=== PATIENT | female | born 1970 | race African-American/Black ===

== ENCOUNTER 2019-08-12 16:27 | Observation (INO) | payer BC, SELFPAY ==
[2019-08-12] VITALS (11 sets, daily range): BP systolic 017–141; BP diastolic 41–98; PULSE 60–123; RESP 15–18; TEMP 36.5–36.9; O2SAT 94–100; BMI 46.3
--- NOTE | ~2019-08-12 | XR_ITS ---
EXAMINATION: XR chest 1V portable EXAM DATE: 08/12/2019 17:19 INDICATION: Shortness of breath. TECHNIQUE: Portable AP frontal chest x-ray was obtained. There is no prior study for comparison. FINDINGS: The lungs are clear. There are no pleural effusions. The cardiomediastinal silhouette is within normal limits. There is no pneumothorax suspected. The bones and soft tissues are unremarkab le. IMPRESSION: No acute cardiopulmonary findings. Reviewed, dictated and finalized at location A.
--- NOTE | 2019-08-12 16:35 | ECG_ITS ---
Measurements Intervals [place] Rate: 97 P: 13 OK: 156 QRS: -12 QRSD: 89 T: -2 QT: 349 QTc: 444 Interpretive Statements SINUS RHYTHM LOW QRS VOLTAGE IN PRECORDIAL LEADS VOLTAGE CRITERIA FOR LVH BORDERLINE ST-T WAVE ABNORMALITY- INFERIOR LEADS BASELINE WANDER- I, II, AVR, AVL, AVF BORDERLINE ECG Electronically Signed On 08-12-2019 18:21:19 CDT by Byron Quinones D.O.
--- NOTE | 2019-08-12 17:06 | PC.NURSE ---
Rn tried 2 times to get IV, unsuccessful attempts. Edda Almendarez will try the ultrasound machine to get IV
[2019-08-12 17:42] LABS: Basophils Percent Auto 0.3 % (0.2-1.2); Eosinophils Absolute Auto 0.1 K/mm3 (0-0.3); Eosinophils Percent Auto 1.4 % (0-4.4); Immature Granulocyte Absolute 0.03 K/mm3 (0.00-0.031); Immature Granulocyte Percent A 0.4 % (0-0.5); Lymphocytes Absolute Auto 0.97 K/mm3 (0.9-3.2); Lymphocytes Percent Auto 12.7 % (18.3-44.2); Mean Corpuscular HGB Conc 31.8 g/dl (32-36); Mean Corpuscular Hemoglobin 30.3 pg (26-34); Mean Corpuscular Volume 95.2 fl (80-100); Mean Platelet Volume 9.5 fl (7.4-10.4); Monocytes Absolute Auto 0.5 K/mm3 (0.1-0.6); Monocytes Percent Auto 6.3 % (2.6-8.5); Neutrophils Percent Auto 78.9 % (45.5-73.1); Nucleated Red Blood Cells Perc 0.3 % (0.0-0.2); Platelet Count Result 113 k/mm3 (150-375); Red Blood Count 2.31 M/mm3 (4.2-5.4); Red Cell Distribution Width 26.9 % (11.5-14.5); White Blood Count 7.6 K/mm3 (4.5-10.0)
[2019-08-12 17:56] LABS: Alanine Aminotransferase 11 U/L (4-35); Albumin Level 3.9 g/dL (3.5-5.1); Alkaline Phosphatase 69 U/L (38-126); Aspartate Amino Transferase 24 U/L (14-36); Bilirubin,Total 0.7 mg/dL (0.2-1.3); Blood Urea Nitrogen 15 mg/dL (7-17); Calcium 9.2 mg/dL (8.4-10.2); Carbon Dioxide 24 mmol/L (22-30); Chloride 106 mmol/L (98-107); Estimated CRCL calculation 107 ml/min; Estimated Glomerular Filt Rate > 60; Glucose 102 mg/dL (65-105); Potassium 4.5 mmol/L (3.4-5.0); Sodium 136 mmol/L (137-145)
--- NOTE | 2019-08-12 18:59 | PC.NURSE ---
Pt went to restroom but was unable to catch the urine in container.
--- NOTE | 2019-08-12 19:28 | ED.WEAKNESS ---
HPI - Weakness General Chief complaint: Weakness <ELIANA Herbert Last Filed: 08/12/19 20:37> Stated complaint: weakness/sob, hx of anemia <ELIANA Herbert Last Filed: 08/12/19 20:37> Time Seen by Provider: 08/12/19 16:38 <ELIANA Herbert Last Filed: 08/12/19 20:37> Source: patient <ELIANA Herbert Last Filed: 08/12/19 20:37> Mode of arrival: ambulatory <ELIANA Herbert Last Filed: 08/12/19 20:37> Limitations: no limitations <ELIANA Herbert Last Filed: 08/12/19 20:37> History of Present Illness HPI Narrative: Patient presents with chief complaint of fatigue with exertion over the last week. Patient states she has been menstrual cycle For 2 weeks but the past 3 to 4 days have been heavier. Patient states in April she was admitted in [place] did not anemia. Patient states that she had upper and lower scopes at that time and ulcer was found but her bleeding was not from her gastric system. Patient states that she was having dark stools at that time but she has not been having dark stools at this time. Patient states when she was admitted in [place] in April she required 4 to 5 units of blood due to having to severe anemia. Patient reports chronic pain to her bilateral legs due to lymphedema. <ELIANA Herbert Last Filed: 08/12/19 20:37> Related Data Home medications: Home Medications Medication Instructions Recorded Confirmed famotidine 20 mg PO BID 08/12/19 08/12/19 furosemide 40 mg PO DAILY 08/12/19 08/12/19 hydrocodone-acetaminophen 1 tablet PO Q4H PRN 08/12/19 08/12/19 levothyroxine 50 mcg PO DAILY 08/12/19 08/12/19 lisinopril 10 mg PO DAILY 08/12/19 08/12/19 metoprolol succinate 25 mg PO DAILY 08/12/19 08/12/19 potassium chloride 10 meq PO DAILY 08/12/19 08/12/19 zolpidem 5 mg PO HS 08/12/19 08/12/19 <Rachelle Telles PA-C - Last Filed: 08/12/19 20:37> Allergies/Adverse reactions: Allergies Allergy/AdvReac Type Severity Reaction Status Date / Time No Known Allergies Allergy Verified 08/12/19 17:03 <Rachelle Telles PA-C - Last Filed: 08/12/19 20:37> Review of Systems Review of Systems: Narrative: CONSTITUTIONAL: Denies fever, chills, or sweats. Reports fatigue with exertion EYES: Denies visual changes, redness, or discharge. ENT: Denies rhinorrhea, congestion, sore throat, or otalgia. CARDIOVASCULAR: Denies chest pain, palpitations, or edema. RESPIRATORY: Denies cough or dyspnea. GASTROINTESTINAL: Denies abdominal pain, nausea, vomiting, or diarrhea. GENITOURINARY: Reports profuse vaginal bleeding. Denies dysuria or hematuria. SKIN: Denies rash or itching. MUSCULOSKELETAL: Reports chronic leg pain denies back pain, joint pain, or myalgia. NEUROLOGIC: Denies headache, numbness, dizziness, or weakness. PSYCHIATRIC: Denies anxiety or depression. <Rachelle Telles PA-C - Last Filed: 08/12/19 20:37> [facility] Family History Family History: Family History (Updated 08/12/19 @ 21:36 by Ashely Verduzco RN) Mother Hypertension Father Hypertension <Rachelle Telles PA-C - Last Filed: 08/12/19 20:37> Social History Social History: Social History Smoking status: Never smoker Second hand tobacco smoke exposure: No Alcohol intake: current Drinks per week: 3 Substance use: never Substance use type: does not use Gender identity (if verbalized by the patient): Female Spiritual care concerns: No Agree to blood products: Yes <Rachelle Telles PA-C - Last Filed: 08/12/19 20:37> Exam Narrative: Exam Narrative: GENERAL: Well-appearing, well-nourished, and in no acute distress. HEAD: Normocephalic, atraumatic. EYES: PERRLA and EOMI. ENT: Nares clear, no rhinorrhea or epistaxis. Mucous membranes moist. Oropharynx without tonsillar hypertrophy exudate or other lesions. Bilateral TMs pearly li nonbulging NECK: Supple. No adenopathy or masses. No carotid bruits or JVD CHEST: Cl
[2019-08-12 20:14] LABS: Hematocrit 24.6 % (37.0-47.0); Hemoglobin 7.2 g/dL (12.0-15.0)
[2019-08-12] MEDS: SODIUM CHLORIDE 0.9% IV 250 ML 30 ML IV CONT (20:51)
[2019-08-12] MEDS: ZOLPIDEM TARTRATE 5 MG TABLET PO (23:23)
[2019-08-13] VITALS (10 sets, daily range): BP systolic 92–136; BP diastolic 49–65; PULSE 62–100; RESP 14–18; TEMP 36.1–36.6; O2SAT 98–100
[2019-08-13] MEDS: SODIUM CHLORIDE 0.9% IV 250 ML 30 ML IV CONT (01:49)
[2019-08-13 05:58] LABS: Hematocrit 23.3 % (37.0-47.0); Hemoglobin 7.7 g/dL (12.0-15.0)
[2019-08-13] MEDS: LEVOTHYROXINE SODIUM 50 MCG TABLET PO (06:01)
[2019-08-13 06:37] LABS: Iron 67 ug/dL (37-170)
[2019-08-13 06:47] LABS: Percent Iron Saturation 23 % (20-50)
[2019-08-13] MEDS: METOPROLOL SUCCINATE EXT REL 25 MG TABCR PO (08:46)
[2019-08-13] MEDS: lisinopriL 10 MG TABLET PO (08:46)
[2019-08-13] MEDS: FUROSEMIDE 40 MG TABLET PO (08:46)
[2019-08-13] MEDS: FAMOTIDINE 20 MG TABLET PO ×2 (08:46→17:38)
[2019-08-13] MEDS: POTASSIUM CHLORIDE 10 MEQ TABLET.ER PO (08:47)
--- NOTE | 2019-08-13 09:51 | PM.IMHP ---
H&P: HPI History of Present Illness Chief complaint: Anemia with Vaginal Bleeding Narrative: Date of visit 08/12 929. Tiarra Addison is a 48 year old hypertensive black female with history of anemia. She had bariatric surgery Adrienne-en-Y in 1999 and over the last year has had heavy menstrual cycles. Her last menstrual cycle was in February of 2019 then had a 2 week flow in July and again this month. Has lots of clots and changes pads about every 3 hours. Had intravaginall and trans abdominal pelvic sonogram in April of this year in [place] and has been some time since she saw fbi profiler. She was last hospitalized in April of this year at [place] where she receive approximately 4-5 units of packed cells. EGD at that time showed peptic ulcer which was nonbleeding and she had no melanotic stools. She had had a colonoscopy in February 2019 which was negative also. Significant also she has had lymphedema with recurrent DVTs and had been on chronic anticoagulation until bleeding episode in February and April. 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 G4-P3 with 3 C sections and 1 psych no depression tolerating things well PMFSH Past Medical History Medical History (Updated 08/13/19 @ 10:06 by Alexander Fink MD) History of deep vein thrombosis (DVT) of lower extremity Hypertension been treated for 15 years Surgical History Surgical History (Updated 08/13/19 @ 10:06 by Alexander Fink MD) Delivery by section History of Adrienne-en-Y gastric bypass Family History Family History (Updated 08/12/19 @ 21:36 by Ashely Verduzco RN) Mother Hypertension Father Hypertension Social History Social History Smoking status: Never smoker Second hand tobacco smoke exposure: No Alcohol intake: current Drinks per week: 3 Substance use: never Substance use type: does not use Gender identity (if verbalized by the patient): Female Spiritual care concerns: No Agree to blood products: Yes Meds Home Medications and Allergies Home Medications Medication Instructions Recorded Confirmed Type famotidine 20 mg PO BID 08/12/19 08/12/19 History furosemide 40 mg PO DAILY 08/12/19 08/12/19 History hydrocodone-acetaminophen 1 tablet PO Q4H PRN 08/12/19 08/12/19 History levothyroxine 50 mcg PO DAILY 08/12/19 08/12/19 History lisinopril 10 mg PO DAILY 08/12/19 08/12/19 History metoprolol succinate 25 mg PO DAILY 08/12/19 08/12/19 History potassium chloride 10 meq PO DAILY 08/12/19 08/12/19 History zolpidem 5 mg PO HS 08/12/19 08/12/19 History Allergies Allergy/AdvReac Type Severity Reaction Status Date / Time No Known Allergies Allergy Verified 08/12/19 17:03 Vital Signs Vital Signs - 24 hr 08/12/19 16:36 08/12/19 17:40 08/12/19 19:00 Temperature 36.6 C Pulse Rate 113 H 90 93 Respiratory Rate 18 18 Blood Pressure 117/75 116/69 141/57 H Pulse Oximetry 100 97 08/12/19 20:17 08/12/19 21:00 08/12/19 21:15 Temperature 36.7 C 36.7 C Pulse Rate 95 97 97 Respiratory Rate 16 16 Blood Pressure 91/41 L 121/78 121/78 Pulse Oximetry 100 100 100 08/12/19 21:16 08/12/19 21:30 08/12/19 22:30 Temperature 36.6 C 36.5 C 36.9 C Pulse Rate 60 93 82 Respiratory Rate 17 16 15 Blood Pressure 103/74 119/98 H 135/73 Pulse Oximetry 94 100 100 08/12/19 23:30 08/12/19 23:31 08/13/19 00:20 Temperature 36.6 C 3
[2019-08-13] MEDS: ENOXAPARIN 40 MG/0.4 ML SYRINGE SUB-Q ×2 (10:41→20:40)
[2019-08-13] MEDS: ZOLPIDEM TARTRATE 5 MG TABLET PO (20:40)
[2019-08-14 05:16] LABS: Hematocrit 24.8 % (37.0-47.0); Hemoglobin 7.9 g/dL (12.0-15.0); Mean Corpuscular HGB Conc 31.9 g/dl (32-36); Mean Corpuscular Hemoglobin 30.9 pg (26-34); Mean Corpuscular Volume 96.9 fl (80-100); Platelet Count Result 127 k/mm3 (150-375); Red Blood Count 2.56 M/mm3 (4.2-5.4); White Blood Count 7.4 K/mm3 (4.5-10.0)
[2019-08-14] MEDS: LEVOTHYROXINE SODIUM 50 MCG TABLET PO (05:30)
[2019-08-14 06:00] VITALS: BP 89/49; PULSE 64; RESP 16; TEMP 36.3; O2SAT 99
[2019-08-14 06:10] VITALS: BP 89/49; PULSE 64
[2019-08-14] MEDS: SODIUM CHLORIDE 0.9% IV 500 ML 999 ML IV CONT (06:26)
[2019-08-14 07:07] VITALS: BP 90/50
[2019-08-14 07:19] VITALS: BMI 46.3
[2019-08-14] MEDS: ENOXAPARIN 40 MG/0.4 ML SYRINGE SUB-Q (08:30)
[2019-08-14] MEDS: IRON SUCROSE COMPLEX 400 MG in SODIUM CHLORIDE 0.9% IV 250 ML 108 MG IVPB (08:30)
[2019-08-14] MEDS: POTASSIUM CHLORIDE 10 MEQ TABLET.ER PO (08:30)
[2019-08-14] MEDS: FAMOTIDINE 20 MG TABLET PO (08:30)
--- NOTE | 2019-08-14 18:14 | PM.DS ---
DS: Diagnosis Admitting Diagnosis Admitting Diagnosis: Anemia, unspecified Discharge Diagnosis (1) Anemia: Qualifiers: Anemia type: unspecified type Qualified Code(s): D64.9 - Anemia, unspecified Code(s): D64.9 - Anemia, unspecified Status: Acute Assessment and Plan: probable acute on chronic blood loss with poor absorption from her previous gastric bypass surgery also. Iron levels are compatible with iron deficiency anemia though not dramatic which makes it more acute at this point Gave IV iron 400 mg 2 days enroll for a total of 800 mg, with her history of bariatric surgery expect poor oral absorption She had had GI evaluation within the last 6 months EGD and colon and will follow-up with night warehouse manager (2) Abnormal vaginal bleeding: Code(s): N93.9 - Abnormal uterine and vaginal bleeding, unspecified Status: Acute Assessment and Plan: patient has been evaluated in the past with ultrasounds. Will need follow-up with night warehouse manager for possible ablation and she is aware (3) Hypertension: Code(s): I10 - Essential (primary) hypertension Status: Acute Assessment and Plan: pressure well controlled continue Jerry and beta-nan. She relates intermittently or pressures less than 100 at home and she hold her antihypertensive. We held and the day of discharge and she has a cuff at home and will monitor her pressure. She may need less antihypertensive therapy. She will follow-up with the primary care DS: Summary Hospital Course Hospital Course: 48-year-old hypertensive black female with status post bariatric surgery and history of menorrhagia presented with anemia and fatigue. She had had a period for 2 weeks. She received 1 unit of packed cells hemoglobin came up to 7.9 and maintain the same level the following morning the day of discharge. She is given IV iron 400 mg x 2 and will follow-up with her primary care within 2 weeks for repeat CBC. She will follow-up with night warehouse manager for further evaluation and possible ablation therapy. She has been evaluated within the last 6 months which EGD and colonoscopy as well as pelvic sonograms Time Spent with Patient Time attestation: Total time spent providing and/or coordinating discharge services: 35 minutes Exam Narrative: Exam Narrative: Condition on discharge blood pressure 94/50 pulse is 64 afebrile Lungs are clear CV regular rate rhythm Abdomen is soft nontender Extremities no pitting edema lymphedema in the right leg specially Neuro alert the cooperative no focal deficits and oriented x3 DS: Data Data Completed and Pending Labs on day of discharge: Labs from last 24 hours 08/14/19 08/14/19 05:00 05:00 WBC 7.4 RBC 2.56 L Hgb 7.9 L Hct 24.8 L MCV 96.9 MCH 30.9 MCHC 31.9 L RDW 25.0 H Plt Count 127 L MPV 10.0 Vitamin B12 172.0 L Discharge Plan Discharge Attending physician on discharge: Alexander Fink Consulting providers: Rachelle Telles Discharging Clinician: Alexander Fink Patient Disposition: Home, Self-Care Activity: as tolerated Diet: low sodium Patient Instructions: Antibiotic Form, Heart Failure (DC), Menorrhagia (GEN), Low-Sodium Diet (DC), Anemia (DC), Lymphedema (DC) Stand Alone Forms: General Discharge Information Follow-up/Referrals: PHYSICIAN NOT ON STAFF,NONSTAFF [Primary Care Provider] - 2 Weeks Discharge Medications: Continued furosemide 40 mg tablet 40 mg PO DAILY RF: 0 potassium chloride 10 mEq tablet extended release 10 meq PO DAILY RF: 0 famotidine 20 mg tablet 20 mg PO BID RF: 0 lisinopril 10 mg tablet 10 mg PO DAILY RF: 0 zolpidem 5 mg tablet 5 mg PO HS RF: 0 metoprolol succinate 25 mg tablet extended release 24 hr 25 mg PO DAILY RF: 0 levothyroxine 25 mcg Capsule 50 mcg PO DAILY RF: 0 hydrocodone-acetaminophen 7.5-325 mg Tablet 1 tablet PO Q4H PRN (Reason: Pain) RF: 0 Other Ambula
== END 2019-08-14 12:32 | disposition home or self-care (01) ==
LOC: ANHED 19:50 → ANH3MED 08-13 06:55
PROVIDERS: Emergency Medicine; Physician Assistant; Admitting Provider Internal Medicine; Emergency Provider General Practice; Visit Provider Internal Medicine
DX: D64.9 Anemia, unspecified (principal); N93.9 Abnormal uterine and vaginal bleeding, unspecified; I10 Essential (primary) hypertension; I89.0 Lymphedema, not elsewhere classified; Z98.84 Bariatric surgery status; Z86.718 Personal history of other venous thrombosis and embolism; Z86.711 Personal history of pulmonary embolism
CPT/HCPCS: 36415; 36430; 71045; 80053; 82607; 82728; 83540; 83550; 85014; 85018; 85025; 85027; 86850; 86900; 86901; 86923; 93005; 96361; 96365; 96372; 96376; 99285; A9270; G0378; J1650; J1756; J7040; J7050; P9016

== ENCOUNTER 2019-08-17 19:17 | Inpatient (IN) | payer BC, SELFPAY ==
--- NOTE | ~2019-08-17 | US_ITS ---
EXAMINATION: US venous doppler LE RT DATE: 08/18/2019 09:14 INDICATION: Right lower limb swelling TECHNIQUE: Kc scale images without and with compression and Doppler images of the right lower extre mity veins were obtained. COMPARISON: None FINDINGS: There is thrombosis of the right common femoral vein, profunda femoral vein, femoral vein, popliteal vein, peroneal trunk, and posterior tibial veins. The greater saphenous vein is patent. IMPRESSION: 1. Extensive deep venous thrombosis of the right lower limb as described above. These findings were d iscussed with the patient's nurse on [facility] at 0918 hours on 08/18/2019. Reviewed, dictated and finalized at location A. IMPRESSION: 1. Extensive deep venous thrombosis of the right lower limb as described above. These findings were discussed with the patient's nurse on [facility] at 09 18 hours on 08/18/2019.
--- NOTE | ~2019-08-17 | XR_ITS ---
EXAMINATION: XR chest 1V portable DATE: 08/18/2019 00:58 INDICATION: Shortness of breath. TECHNIQUE: A single frontal view of the chest was obtained. COMPARISON: Chest single view 08/12/2019 FINDINGS: The chest demonstrates clear lungs without pneumonia, pleural effusion, or pneumothorax. Th e heart size is normal. IMPRESSION: 1. No acute cardiopulmonary disease. Reviewed, dictated and finalized at location A.
[2019-08-17 19:24] VITALS: BP 116/81; PULSE 107; RESP 16; TEMP 36.6; O2SAT 100
[2019-08-17 21:30] VITALS: BP 117/89; PULSE 85; RESP 18; TEMP 37.2; O2SAT 100
--- NOTE | 2019-08-17 22:55 | PC.NURSE ---
attempted iv access without success. patient will not allow another attempt stating everyone always uses the machine
[2019-08-17 23:11] VITALS: BP 126/71; PULSE 82; RESP 20; O2SAT 98
--- NOTE | 2019-08-17 23:13 | PC.NURSE ---
assumed care of patient
[2019-08-17 23:32] LABS: Basophils Percent Auto 0.3 % (0.2-1.2); Eosinophils Absolute Auto 0.2 K/mm3 (0-0.3); Hematocrit 23.4 % (37.0-47.0); Hemoglobin 7.1 g/dL (12.0-15.0); Immature Granulocyte Absolute 0.08 K/mm3 (0.00-0.031); Immature Granulocyte Percent A 0.7 % (0-0.5); Lymphocytes Absolute Auto 2.01 K/mm3 (0.9-3.2); Mean Corpuscular HGB Conc 30.3 g/dl (32-36); Mean Corpuscular Hemoglobin 31.4 pg (26-34); Mean Corpuscular Volume 103.5 fl (80-100); Mean Platelet Volume 9.5 fl (7.4-10.4); Monocytes Percent Auto 8.7 % (2.6-8.5); Neutrophils Absolute Auto 7.9 K/mm3 (1.3-6.7); Neutrophils Percent Auto 70.3 % (45.5-73.1); Nucleated Red Blood Cells Absolute Auto 0.1 K/mm3 (0.0-0.012); Nucleated Red Blood Cells Perc 0.5 % (0.0-0.2); Platelet Count Result 161 k/mm3 (150-375); Red Blood Count 2.26 M/mm3 (4.2-5.4); Red Cell Distribution Width 26.3 % (11.5-14.5); White Blood Count 11.2 K/mm3 (4.5-10.0)
[2019-08-18] VITALS (13 sets, daily range): BP systolic 103–129; BP diastolic 50–103; PULSE 76–125; RESP 16–25; TEMP 36.3–37.1; O2SAT 98–100; BMI 48.4
[2019-08-18 00:09] LABS: INR 1.1; Prothrombin Time 14.2 Seconds (11.1-14.7)
[2019-08-18 00:13] LABS: Blood Urea Nitrogen 20 mg/dL (7-17); Calcium 8.9 mg/dL (8.4-10.2); Carbon Dioxide 24 mmol/L (22-30); Chloride 107 mmol/L (98-107); Estimated CRCL calculation 81 ml/min; Estimated Glomerular Filt Rate > 60; Glucose 98 mg/dL (65-105); Potassium 3.9 mmol/L (3.4-5.0); Sodium 137 mmol/L (137-145)
--- NOTE | 2019-08-18 00:43 | ECG_ITS ---
Measurements Intervals [place] Rate: 82 P: 37 NC: 172 QRS: -6 QRSD: 92 T: 14 QT: 377 QTc: 442 Interpretive Statements SINUS RHYTHM LOW QRS VOLTAGE IN PRECORDIAL LEADS VOLTAGE CRITERIA FOR LVH BORDERLINE T WAVE ABNORMALITY- INFERIOR LEADS MINIMAL Q WAVES- HIGH LATERAL LEADS BORDERLINE ECG Electronically Signed On 08-18-2019 7:14:23 CDT by Byron Quinones D.O.
--- NOTE | 2019-08-18 00:44 | ED.DIZZY ---
HPI - Dizziness General Chief Complaint: Dizziness Stated Complaint: Low BP, R leg swelling. Time Seen by Provider: 08/17/19 22:55 Source: patient Mode of arrival: ambulatory Limitations: no limitations History of Present Illness HPI Narrative: This patient is an female with h/o DVT, IVC filter, abnormal uterine bleeding and anemia who presents for evaluation of right leg swelling and continued weakness. Patient was discharged from [facility] on 08/14/19 after receiving a blood tranfusion. Patient was found to have anemia due to vaginal bleeding. PAtient states in the past she has had ultrasound which only shows small uterine fibroids. She has not recently been seen by gynecology to address her vaginal bleeding. She states that she has been having vaginal bleeding for 3 weeks and she is changing her pad every 2- 3 hours. She is concerned because she continues to have lightheadedness and weakness with standing. Patient is also concerned because she states her right leg has increased in size. She reports her leg is 4 times bigger than normal. She has history of dVT to her extremities but she has IVC filter in place due to her bleeding issues. MD elicited complaint: dizziness Related Data Home Medications Medication Instructions Recorded Confirmed famotidine 20 mg PO BID 08/12/19 08/18/19 furosemide 40 mg PO DAILY 08/12/19 08/18/19 hydrocodone-acetaminophen 1 tablet PO Q4H PRN 08/12/19 08/18/19 levothyroxine 50 mcg PO DAILY 08/12/19 08/18/19 lisinopril 10 mg PO DAILY 08/12/19 08/18/19 metoprolol succinate 25 mg PO DAILY 08/12/19 08/18/19 potassium chloride 10 meq PO DAILY 08/12/19 08/18/19 zolpidem 5 mg PO HS 08/12/19 08/18/19 Allergies Allergy/AdvReac Type Severity Reaction Status Date / Time No Known Allergies Allergy Verified 08/12/19 17:03 Review of Systems Review of Systems: All systems reviewed & are unremarkable except as noted in HPI and below Constitutional: Constitutional: Denies chills, Denies fever(s) and Reports weakness ENT: Reports dizziness and Denies epistaxis Cardiovascular: Cardiovascular: Denies chest pain Respiratory: Respiratory: Denies cough, Reports dyspnea and Denies wheezing Gastrointestinal: Gastrointestinal: Denies abdominal pain and Denies nausea Genitourinary: Genitourinary: Reports abnormal vaginal bleeding [facility] Past Medical History Medical History (Updated 08/18/19 @ 07:20 by Sharon Castañeda MD) History of deep vein thrombosis (DVT) of lower extremity Hypertension been treated for 15 years Presence of IVC filter Surgical History Surgical History (Updated 08/13/19 @ 10:06 by Alexander Fink MD) Delivery by section History of Adrienne-en-Y gastric bypass Family History Family History (Updated 08/13/19 @ 10:09 by Alexander Fink MD) Mother Hypertension Father Hypertension Social History Social History Smoking status: Never smoker Second hand tobacco smoke exposure: No Alcohol intake: current Drinks per week: 2 Substance use: never Substance use type: does not use Gender identity (if verbalized by the patient): Female Spiritual care concerns: No Agree to blood products: Yes Exam Const: General: no acute distress and alert Orientation/consciousness: patient oriented x3 Other: morbidly obese HENMT: Head: normocephalic and atraumatic Face and sinus: face symmetric Mouth: Yes Normal oral and palatal mucosa present Throat: posterior oropharynx normal and tonsils normal Eyes: Pupils: Equal, round and reactive pupils present EOM: EOMs intact bilaterally Chest: Chest palpation & inspection: normal inspection of the chest Resp: Effort & Inspection: normal respiratory effort Auscultation: clear to auscultation bilaterally Cardio: Rate: regular rate Rhythm: regular rhythm Heart sounds: no murmurs GI: Inspection: obesity GI Palp: No abdominal tenderness and Yes Soft to palpation Auscultation: n
[2019-08-18 01:09] LABS: NT Pro B Type Natriuretic Pept 112 PG/ML (5-100); Troponin I < 0.012 ng/mL (0.000-0.034)
[2019-08-18] MEDS: MORPHINE SULFATE 4 MG/ML INJ 6 MG IV PUSH (02:38)
[2019-08-18] MEDS: ONDANSETRON INJ 4 MG/2 ML VIAL IV PUSH (02:39)
[2019-08-18] MEDS: SODIUM CHLORIDE 0.9% IV 250 ML 30 ML IV CONT (04:37)
[2019-08-18] MEDS: MORPHINE SULFATE 4 MG/ML INJ IV PUSH ×4 (04:38→19:49)
--- NOTE | 2019-08-18 05:02 | ADMGEN ---
This patient, Tiarra Addison, was admitted to Medical Room 243-01. Patient/family oriented to hospital policies and general routines including ID bracelet, bed and alarms, visiting hours, pain management, procedures, bathroom and other care routines, personal items, smoking policy, room service/diet, and visiting hours. Valuables list has been completed. Information on how to activate the Rapid Response Team has been discussed. Patient/Family are encouraged to report perceived risks to care and to ask questions if they do not understand what they are told or what they should do.
--- NOTE | 2019-08-18 09:19 | WPDCN ---
Assessment and Plan Assessment and plan (1) Perimenopausal menorrhagia: Code(s): N92.4 - Excessive bleeding in the premenopausal period Status: Acute Assessment and Plan: Suspect abnormal bleeding due to perimenopause. Recommend to proceed with D&C hysteroscopy to evaluate when this bleeding episode slows down. Hoping to perform next week. If biopsy and hysteroscopy are normal, plan to place IUD or possible ablation. Due to DVT, unable to give any meds to stop the bleeding or to use meds to treat the abnormal bleeding once work up is completed. HPI Data of Consult Date/Time: 08/18/19 09:19 Requesting Physician: Phil Rivero MD Primary Care Provider: Seema Prather, PA Consult Narrative Narrative: Tiarra Addison is a 48 year old female admitted through ER for dizziness and leg swelling. Found to be anemic at 7.1. Patient with changing cycles over last year. Has been skipping and when cycle does start it is heavy and lasting longer. Had a cycle in 02/24 that lasted 2 weeks and was heavier than prior. She then had no cycle until 06/25 (lasted 2 weeks). Then late July she began cycle and is still bleeding. Patient going through pad about q 2 hours. In Apr, she had a GI bleed and received 4 units PRBC. Last week patient received 1 unit PRBC. Patient also received 1 unit PRBC last pm. atient states Hemoglobin not over 10 in more than a year and has been anemic since her Adrienne-en-Y gastric bypass in 1999. She states she receives iron transfusions but had lost her job and lost her insurance so it had been a while . Patient with recurrent DVT's and hx PE with recent IVC filter placed. Currently, states her right leg is about 4x its usual size. Management per hospitalist for this problem. [facility] Past Medical History Medical History (Updated 08/18/19 @ 13:22 by Michelle Munoz MD) B12 deficiency History of deep vein thrombosis (DVT) of lower extremity Hx pulmonary embolism Hypertension been treated for 15 years Hypothyroidism (acquired) Postphlebitic syndrome Presence of IVC filter 11/2018 at [facility] (peptic ulcer disease) Surgical History Surgical History (Updated 08/18/19 @ 13:21 by Michelle Munoz MD) Delivery by section x 3 History of Adrienne-en-Y gastric bypass 2009 S/P tubal ligation Family History Family History Mother Hypertension Father Hypertension Social History Social History (Updated 08/18/19 @ 09:56 by Sea Nelson MD) Social History: . Resides with her daughter. 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 Gender identity (if verbalized by the patient): Female Spiritual care concerns: No Agree to blood products: Yes Meds Home Medications and Allergies Home Medications Medication Instructions Recorded Confirmed Type famotidine 20 mg PO BID 08/12/19 08/18/19 History furosemide 40 mg PO DAILY 08/12/19 08/18/19 History hydrocodone-acetaminophen 1 tablet PO Q4H PRN 08/12/19 08/18/19 History levothyroxine 50 mcg PO DAILY 08/12/19 08/18/19 History lisinopril 10 mg PO DAILY 08/12/19 08/18/19 History metoprolol succinate 25 mg PO DAILY 08/12/19 08/18/19 History potassium chloride 10 meq PO DAILY 08/12/19 08/18/19 History zolpidem 5 mg PO HS 08/12/19 08/18/19 History Allergies Allergy/AdvReac Type Severity Reaction Status Date / Time No Known Allergies Allergy Verified 08/12/19 17:03 Vital Signs Vital Signs - 24 hr 08/17/19 19:24 08/17/19 21:30 08/17/19 23:11 Temperature 97.8 F 98.9 F Pulse Rate 107 H 85 82 Respiratory Rate 16 18 20 Blood Pressure 116/81 117/8
--- NOTE | 2019-08-18 09:45 | PM.IMHP ---
H&P: HPI History of Present Illness Chief complaint: Low BP, R leg swelling. Narrative: Tiarra Addison is a 48 year old female with 2 days worsened right leg swelling. Deep [id number] throbbing chronically in out leg. Now moderate. Denied chest pain or shortness of breath. 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 Was treated with warfarin until July 2018. She then developed a right lower extremity DVT with pulmonary embolus. Was switched to Xarelto and maintained on 20 mg daily until November 2018. Because of severe metromenorrhagia and symptomatic anemia requiring transfusions anticoagulation was discontinued and an inferior vena cava filter placed. February 2019 she developed a left lower extremity DVT that was treated conservatively. She has chronic swelling in her legs and is taking furosemide chronically. She was just discharged from [facility] on August 13 due to symptomatic anemia for which she received 400 mg of iron IV twice and 1 unit packed red cells. She did well for a few days but last night and early this morning developed recurrent lightheadedness and dizziness with presyncope and tunnel vision. This was not quite as bed is what brought her into the hospital last time but severe enough to impair her mobility. She presented because of that and the 2 days of increased right lower extremity swelling. She denied chest pain or shortness of breath or palpitations. No fevers chills or sweats. She has been having heavy menstrual periods with clots for the last 3 weeks. In October of 2018 she was diagnosed with ?small fibroids ?. However due to insurance change she has not seen a parts and service manager since then. Review of Systems Review of Systems: All systems reviewed & are unremarkable except as noted in HPI and below PMFSH Past Medical History Medical History (Updated 08/18/19 @ 10:08 by Sea Nelson MD) B12 deficiency History of deep vein thrombosis (DVT) of lower extremity Hx pulmonary embolism Hypertension been treated for 15 years Hypothyroidism (acquired) Postphlebitic syndrome Presence of IVC filter 11/2018 at [facility] Surgical History Surgical History (Updated 08/18/19 @ 09:55 by Sea Nelson MD) Delivery by section History of Adrienne-en-Y gastric bypass 2009 Family History Family History Mother Hypertension Father Hypertension Social History Social History (Updated 08/18/19 @ 09:56 by Sea Nelson MD) Social History: . Resides with her daughter. 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 Gender identity (if verbalized by the patient): Female Spiritual care concerns: No Agree to blood products: Yes Meds Home Medications and Allergies Home Medications Medication Instructions Recorded Confirmed Type famotidine 20 mg PO BID 08/12/19 08/18/19 History furosemide 40 mg PO DAILY 08/12/19 08/18/19 History hydrocodone-acetaminophen 1 tablet PO Q4H PRN 08/12/19 08/18/19 History levothyroxine 50 mcg PO DAILY 08/12/19 08/18/19 History lisinopril 10 mg PO DAILY 08/12/19 08/18/19 History metoprolol succinate 25 mg PO DAILY 08/12/19 08/18/19 History potassium chloride 10 meq PO DAILY 08/12/19 08/18/19 History zolpidem 5 mg PO HS 08/12/19 08/18/19 History Allergies Allergy/AdvReac Type Severity Reaction Status Date / Time No Known Allergies Allergy Verified 08/12/19 17:03 Vital Signs Vital Signs - 24 hr 08/17/19 19:24 08/17/19 21:30 08/17/19 23:11 Temperature 97.8 F 98.9 F Pulse Rate 107 H 85 82 Respiratory Rate 16 18 20 Blood Pressure 116/81 117/89 126/71 Pulse Oximetry 100 100 98
[2019-08-18] MEDS: FUROSEMIDE INJ 40 MG/4 ML VIAL IV PUSH (11:08)
[2019-08-18] MEDS: FAMOTIDINE 20 MG TABLET PO ×2 (11:09→21:50)
[2019-08-18] MEDS: FOLIC ACID 1 MG TABLET PO (11:09)
[2019-08-18] MEDS: POTASSIUM CHLORIDE 10 MEQ TABLET.ER PO (11:10)
[2019-08-18 11:30] LABS: Hematocrit 23.9 % (37.0-47.0); Hemoglobin 7.5 g/dL (12.0-15.0)
[2019-08-18] MEDS: IRON SUCROSE COMPLEX 400 MG in SODIUM CHLORIDE 0.9% IV 250 ML 108 MG IVPB (13:51)
[2019-08-18] MEDS: CYANOCOBALAMIN INJ 1,000 MCG/ML VIAL 1000 MCG IM (13:51)
[2019-08-18] MEDS: ZOLPIDEM TARTRATE 5 MG TABLET PO (21:50)
[2019-08-19] VITALS (8 sets, daily range): BP systolic 105–139; BP diastolic 51–79; PULSE 72–82; RESP 16–19; TEMP 36.4–36.8; O2SAT 97–100
[2019-08-19] MEDS: MORPHINE SULFATE 4 MG/ML INJ IV PUSH ×5 (02:39→21:17)
[2019-08-19 05:24] LABS: Basophils Percent Auto 0.3 % (0.2-1.2); Eosinophils Absolute Auto 0.2 K/mm3 (0-0.3); Eosinophils Percent Auto 3.3 % (0-4.4); Hematocrit 21.7 % (37.0-47.0); Immature Granulocyte Absolute 0.04 K/mm3 (0.00-0.031); Immature Granulocyte Percent A 0.6 % (0-0.5); Lymphocytes Absolute Auto 1.18 K/mm3 (0.9-3.2); Lymphocytes Percent Auto 18.8 % (18.3-44.2); Mean Corpuscular HGB Conc 30.9 g/dl (32-36); Mean Corpuscular Volume 100.5 fl (80-100); Mean Platelet Volume 9.3 fl (7.4-10.4); Monocytes Absolute Auto 0.8 K/mm3 (0.1-0.6); Monocytes Percent Auto 12.4 % (2.6-8.5); Neutrophils Percent Auto 64.6 % (45.5-73.1); Nucleated Red Blood Cells Perc 0.5 % (0.0-0.2); Platelet Count Result 130 k/mm3 (150-375); Red Blood Count 2.16 M/mm3 (4.2-5.4); Red Cell Distribution Width 24.2 % (11.5-14.5); White Blood Count 6.3 K/mm3 (4.5-10.0)
[2019-08-19 05:27] LABS: Alanine Aminotransferase 9 U/L (4-35); Albumin Level 3.1 g/dL (3.5-5.1); Alkaline Phosphatase 50 U/L (38-126); Aspartate Amino Transferase 22 U/L (14-36); Bilirubin,Total 0.4 mg/dL (0.2-1.3); Blood Urea Nitrogen 17 mg/dL (7-17); Calcium 8.7 mg/dL (8.4-10.2); Carbon Dioxide 28 mmol/L (22-30); Chloride 107 mmol/L (98-107); Estimated CRCL calculation 109 ml/min; Estimated Glomerular Filt Rate > 60; Glucose 89 mg/dL (65-105); Potassium 4.1 mmol/L (3.4-5.0); Sodium 137 mmol/L (137-145)
[2019-08-19 05:41] LABS: Hemoglobin 6.7 g/dL (12.0-15.0)
[2019-08-19] MEDS: SODIUM CHLORIDE 0.9% IV 250 ML 30 ML IV CONT (06:43)
[2019-08-19] MEDS: LEVOTHYROXINE SODIUM 50 MCG TABLET PO (06:43)
[2019-08-19] MEDS: CYANOCOBALAMIN INJ 1,000 MCG/ML VIAL 1000 MCG IM (08:48)
[2019-08-19] MEDS: FAMOTIDINE 20 MG TABLET PO ×2 (08:50→22:13)
[2019-08-19] MEDS: FOLIC ACID 1 MG TABLET PO (09:21)
[2019-08-19] MEDS: POTASSIUM CHLORIDE 10 MEQ TABLET.ER PO (09:21)
[2019-08-19] MEDS: ONDANSETRON INJ 4 MG/2 ML VIAL IV PUSH (11:52)
[2019-08-19 12:00] LABS: Hematocrit 26.6 % (37.0-47.0); Hemoglobin 8.2 g/dL (12.0-15.0); Mean Corpuscular HGB Conc 30.8 g/dl (32-36); Mean Corpuscular Hemoglobin 30.8 pg (26-34); Mean Platelet Volume 9.5 fl (7.4-10.4); Platelet Count Result 144 k/mm3 (150-375); Red Blood Count 2.66 M/mm3 (4.2-5.4); Red Cell Distribution Width 23.9 % (11.5-14.5); White Blood Count 7.7 K/mm3 (4.5-10.0)
--- NOTE | 2019-08-19 12:31 | PM.GYNPNOP ---
SENIOR REACTOR OPERATOR - A/P Assessment and plan (1) Perimenopausal menorrhagia: Code(s): N92.4 - Excessive bleeding in the premenopausal period Status: Acute Assessment and Plan: Per pt only spotting today. Pt is scheduled for Hysteroscopy D & C on 08/25/2019.As per Pt , hospitalist would like to start her on Anticoagulation but are waiting till Hysteroscopy D & C can be performed.So called Dr Munoz and informed about the plan and as pt stating only spotting today, will call OR and see if procedure can be performed tomorrow.Per Dr uMnoz, pt was informed about the procedure detail as well as risk of procedure and post op course yesterday during her consultation. Time Spent With Patient Time: Total time spent is greater than 50% in coordination of care (as documented) at patient's floor/unit and/or counseling patient: Time with patient: 15 - 25 minutes SENIOR REACTOR OPERATOR- PN:Subj Post-Op Subjective Date/time seen: 08/19/19 12:31 Subjective: patient reports feeling better and patient has no complaints Review of Systems Constitutional: Constitutional: Reports no additional constitutional complaints Cardiovascular: Cardiovascular: Reports no additional cardiovascular complaints Respiratory: Respiratory: Reports no additional respiratory complaints Gastrointestinal: Gastrointestinal: Reports no additional gastrointestinal complaints Exam Const: General: comfortable, no acute distress, alert and awake SENIOR REACTOR OPERATOR - PN: Obj Data Vital Signs Vital Signs: Vital Signs - 24 hr 08/18/19 14:00 08/18/19 22:00 08/19/19 05:47 Temperature 36.7 C 36.3 C L 36.6 C Pulse Rate 79 76 73 Respiratory Rate 17 16 16 Blood Pressure 118/74 104/59 L 105/61 Pulse Oximetry 100 100 98 08/19/19 06:55 08/19/19 07:10 08/19/19 08:00 Temperature 36.5 C 36.4 C L Pulse Rate 72 76 76 Respiratory Rate 16 16 16 Blood Pressure 124/53 L 139/79 Pulse Oximetry 100 100 100 08/19/19 08:10 08/19/19 09:50 Temperature 36.7 C 36.6 C Pulse Rate 76 82 Respiratory Rate 16 17 Blood Pressure 111/73 122/56 L Pulse Oximetry 100 100 Intake/Output Intake/Output: Intake & Output 08/16/19 08/17/19 08/18/19 08/19/19 23:59 23:59 23:59 23:59 Intake Total 1867 1040 Balance 1867 1040 Meds/Results Medications: Active Medications Generic Name Dose Route Start Last Admin Trade Name Freq PRN Reason Stop Dose Admin Hydrocodone Bitart/Acetaminophen 1 tab 08/18/19 10:05 [place] 7.5-325 Mg PO Q4H PRN Pain rated 4-6 Famotidine 20 mg 08/18/19 11:00 08/19/19 08:50 Pepcid PO 20 mg Q12HR KENTRELL Administration Folic Acid 1 mg 08/18/19 10:05 08/19/19 09:21 Folic Acid PO 1 mg DAILY KENTRELL Administration Sodium Chloride 250 mls @ 30 mls/hr 08/19/19 05:52 08/19/19 06:43 Normal Saline Iv IV CONT 08/19/19 14:11 30 mls/hr .Q8H20M STA Administration Sodium Chloride 250 mls @ 30 mls/hr 08/19/19 07:24 Normal Saline Iv IV CONT 08/19/19 15:43 .Q8H20M STA Levothyroxine Sodium 50 mcg 08/19/19 06:30 08/19/19 06:43 Synthroid PO 50 mcg DAILY@0630 KENTRELL Administration Morphine Sulfate 4 mg 08/18/19 03:03 08/19/19 11:52 Morphine Sulfate Inj IV PUSH 4 mg Q2H PRN Administration Pain Rated 7-10 Ondansetron HCl 4 mg 08/18/19 03:03 08/19/19 11:52 Zofran Inj IV PUSH 4 mg Q4H PRN Administration Nausea Potassium Chloride 10 meq 08/18/19 09:00 08/19/19 09:21 Kcl Tablet PO 10 meq DAILY KENTRELL Administration Zolpidem Tartrate 5 mg 08/18/19 21:00 08/18/19 21:50 Ambien PO 5 mg HS KENTRELL Administration Radiology Results: ITS Impressions Chest X-Ray 08/18/19 06:46 IMPRESSION: 1. No acute cardiopulmonary disease. Venous Doppler Study 08/18/19 09:15 IMPRESSION: 1. Extensive deep venous thrombosis of the right lower limb as described above. These findings were discussed with the patient's nurse on [facility] at 0918 hours on 08/18/2019. Labs CBC
[2019-08-19] MEDS: BISACODYL 5 MG TABLET EC PO (16:46)
[2019-08-19 17:09] LABS: Hematocrit 29.2 % (37.0-47.0); Hemoglobin 9.1 g/dL (12.0-15.0)
--- NOTE | 2019-08-19 17:25 | P.PNIM_ITS ---
Progress Note: A&P Assessment and Plan (1) Anemia: Qualifiers: Anemia type: iron deficiency Iron deficiency anemia type: chronic blood loss Qualified Code(s): D50.0 - Iron deficiency anemia secondary to blood loss (chronic) Code(s): D64.9 - Anemia, unspecified Status: Acute Assessment and Plan: * Symptomatic with dizziness and presyncope and fatigue * 08/17 Transfused with 1 unit packed red cells and gave 400mg IV iron * 08/18 Transfused with 2 U PRBC * Follow-up H and H (2) Right leg DVT: Qualifiers: Affected thrombotic vein of extremity: unspecified vein of extremity Chronicity: acute Qualified Code(s): I82.401 - Acute embolism and thrombosis of unspecified deep veins of right lower extremity Code(s): I82.401 - Acute embolism and thrombosis of unspecified deep veins of right lower extremity Status: Acute Assessment and Plan: * This is likely acute on chronic * Unable to anticoagulate currently due to severe metromenorrhagia * IVC filter in place * Resume anticoagulation when surgically stable following planned endometrial ablation (3) Postphlebitic syndrome: Code(s): I87.009 - Postthrombotic syndrome without complications of unspecified extremity Status: Acute Assessment and Plan: * Chronic * Worsened right lower extremity possibly due to acute on chronic deep venous thrombosis (4) Hx pulmonary embolism: Code(s): Z86.711 - Personal history of pulmonary embolism Status: Acute Assessment and Plan: * IVC filter in place (5) Lymph edema: Code(s): I89.0 - Lymphedema, not elsewhere classified Status: Acute Assessment and Plan: * Chronic due to morbid obesity and recurrent deep venous thrombosis and lower extremities (6) Hypertension: Qualifiers: Hypertension type: essential hypertension Qualified Code(s): I10 - Essential (primary) hypertension Code(s): I10 - Essential (primary) hypertension Status: Acute Assessment and Plan: * Hold metoprolol and monitor (7) Abnormal vaginal bleeding: Code(s): N93.9 - Abnormal uterine and vaginal bleeding, unspecified Status: Acute Assessment and Plan: * Likely due to uterine fibroids and perimenopausal status * Gui Developer consulted for possible endometrial ablation (8) B12 deficiency: Code(s): E53.8 - Deficiency of other specified B group vitamins Status: Acute Assessment and Plan: * Likely due to prior gastric bypass * IM B12 08/17, 08/18, 08/19 * PO folic acid (9) Hypothyroidism (acquired): Code(s): E03.9 - Hypothyroidism, unspecified Status: Acute Assessment and Plan: * Continue PO levothyroxine Subjective Date/time seen: 08/19/19 09:45 Interval history: Admitted due to menorhhagia and symptomatic anemia. 08/18 Still slighly lightheaded this AM. Tolerating diet. Right legs still throbs when dependent. Still swollen. Constipated. Review of Systems Review of Systems: All systems reviewed & are unremarkable except as noted in HPI and below Exam Narrative: Exam Narrative: HEENT: EOMI, PERRL, sclerae nonicteric, pharyngeal mucosa pink and intact NECK: No JVD, adenopathy, or thyromegaly CHEST: Clear to auscultation. Normal effort. HEART: NL S1/S2, regular, no murmur ABDOMEN: BS+, soft, nontender, no mass, no bruits EXTREMITIES: 4+ nonpitting edema right lower extremity to the thigh. 2+ nonpitting edema left lower extremity. No skin breakdown noted.
--- NOTE | 2019-08-19 17:25 | PM.IMPN ---
Progress Note: A&P Assessment and Plan (1) Anemia: Qualifiers: Anemia type: iron deficiency Iron deficiency anemia type: chronic blood loss Qualified Code(s): D50.0 - Iron deficiency anemia secondary to blood loss (chronic) Code(s): D64.9 - Anemia, unspecified Status: Acute Assessment and Plan: Symptomatic with dizziness and presyncope and fatigue 08/17 Transfused with 1 unit packed red cells and gave 400mg IV iron 08/18 Transfused with 2 U PRBC Follow-up H and H (2) Right leg DVT: Qualifiers: Affected thrombotic vein of extremity: unspecified vein of extremity Chronicity: acute Qualified Code(s): I82.401 - Acute embolism and thrombosis of unspecified deep veins of right lower extremity Code(s): I82.401 - Acute embolism and thrombosis of unspecified deep veins of right lower extremity Status: Acute Assessment and Plan: This is likely acute on chronic Unable to anticoagulate currently due to severe metromenorrhagia IVC filter in place Resume anticoagulation when surgically stable following planned endometrial ablation (3) Postphlebitic syndrome: Code(s): I87.009 - Postthrombotic syndrome without complications of unspecified extremity Status: Acute Assessment and Plan: Chronic Worsened right lower extremity possibly due to acute on chronic deep venous thrombosis (4) Hx pulmonary embolism: Code(s): Z86.711 - Personal history of pulmonary embolism Status: Acute Assessment and Plan: IVC filter in place (5) Lymph edema: Code(s): I89.0 - Lymphedema, not elsewhere classified Status: Acute Assessment and Plan: Chronic due to morbid obesity and recurrent deep venous thrombosis and lower extremities (6) Hypertension: Qualifiers: Hypertension type: essential hypertension Qualified Code(s): I10 - Essential (primary) hypertension Code(s): I10 - Essential (primary) hypertension Status: Acute Assessment and Plan: Hold metoprolol and monitor (7) Abnormal vaginal bleeding: Code(s): N93.9 - Abnormal uterine and vaginal bleeding, unspecified Status: Acute Assessment and Plan: Likely due to uterine fibroids and perimenopausal status [employer] Truck Driver consulted for possible endometrial ablation (8) B12 deficiency: Code(s): E53.8 - Deficiency of other specified B group vitamins Status: Acute Assessment and Plan: Likely due to prior gastric bypass IM B12 08/17, 08/18, 5/14 PO folic acid (9) Hypothyroidism (acquired): Code(s): E03.9 - Hypothyroidism, unspecified Status: Acute Assessment and Plan: Continue PO levothyroxine Subjective Date/time seen: 08/19/19 09:45 Interval history: Admitted due to menorhhagia and symptomatic anemia. 08/18 Still slighly lightheaded this AM. Tolerating diet. Right legs still throbs when dependent. Still swollen. Constipated. Review of Systems Review of Systems: All systems reviewed & are unremarkable except as noted in HPI and below Exam Narrative: Exam Narrative: HEENT: EOMI, PERRL, sclerae nonicteric, pharyngeal mucosa pink and intact NECK: No JVD, adenopathy, or thyromegaly CHEST: Clear to auscultation. Normal effort. HEART: NL S1/S2, regular, no murmur ABDOMEN: BS+, soft, nontender, no mass, no bruits EXTREMITIES: 4+ nonpitting edema right lower extremity to the thigh. 2+ nonpitting edema left lower extremity. No skin breakdown noted. NEUROLOGIC: CN intact and symmetric to inspection. MUSCULOSKELETAL: Tone and strength symmetric. PSYCH: Alert. Oriented to person, place, and time. Objective Data Vital Signs Vital Signs: Vital Signs - 24 hr 08/18/19 22:00 08/19/19 05:47 08/19/19 06:55 Temperature 97.3 F L 97.9 F 97.7 F Pulse Rate 76 73 72 Respiratory Rate 16 16 16 Blood Pressure 104/59 L 105/61 124/53 L Pulse Oximetry 100 98 100 08/19/19 07:10 08/19/19 08:00 08/18
[2019-08-19] MEDS: LORAZEPAM 0.5 MG TABLET PO (22:14)
[2019-08-19] MEDS: ZOLPIDEM TARTRATE 5 MG TABLET PO (22:17)
[2019-08-20] VITALS (12 sets, daily range): BP systolic 97–134; BP diastolic 57–75; PULSE 65–86; RESP 10–18; TEMP 36.2–36.8; O2SAT 98–100
[2019-08-20] MEDS: MORPHINE SULFATE 4 MG/ML INJ IV PUSH ×4 (04:47→21:10)
[2019-08-20 06:24] LABS: Hematocrit 25.4 % (37.0-47.0); Hemoglobin 7.9 g/dL (12.0-15.0); Mean Corpuscular HGB Conc 31.1 g/dl (32-36); Mean Corpuscular Volume 99.6 fl (80-100); Mean Platelet Volume 9.8 fl (7.4-10.4); Platelet Count Result 141 k/mm3 (150-375); Red Blood Count 2.55 M/mm3 (4.2-5.4); Red Cell Distribution Width 23.7 % (11.5-14.5); White Blood Count 6.1 K/mm3 (4.5-10.0)
[2019-08-20] MEDS: LEVOTHYROXINE SODIUM 50 MCG TABLET PO (06:33)
[2019-08-20 06:41] LABS: Blood Urea Nitrogen 16 mg/dL (7-17); Calcium 8.4 mg/dL (8.4-10.2); Carbon Dioxide 25 mmol/L (22-30); Chloride 107 mmol/L (98-107); Estimated CRCL calculation 109 ml/min; Estimated Glomerular Filt Rate > 60; Glucose 83 mg/dL (65-105); Sodium 137 mmol/L (137-145)
--- NOTE | 2019-08-20 07:41 | PM.GYNPNOP ---
ROOMING HOUSE INSPECTOR - A/P Assessment and plan (1) Abnormal vaginal bleeding: Code(s): N93.9 - Abnormal uterine and vaginal bleeding, unspecified Status: Acute Assessment and Plan: Plan to proceed with D&C hysteroscopy today around 2 pm Postoperative Procedures: Procedures Operation Date: 08/20/19 14:15 <No data on this case meets the specified criteria> Time Spent With Patient Time: Total time spent is greater than 50% in coordination of care (as documented) at patient's floor/unit and/or counseling patient: Time with patient: less than 15 minutes ROOMING HOUSE INSPECTOR- PN:Subj Post-Op Subjective Date/time seen: 08/20/19 07:41 Interval history: Admitted due to menorhhagia and symptomatic anemia. 08/18 Still slighly lightheaded this AM. Tolerating diet. Right legs still throbs when dependent. Still swollen. Constipated. ROOMING HOUSE INSPECTOR - PN: Obj Data Vital Signs Vital Signs: Vital Signs - 24 hr 08/19/19 08:00 08/19/19 08:10 08/19/19 09:50 Temperature 98.1 F 97.8 F Pulse Rate 76 76 82 Respiratory Rate 16 16 17 Blood Pressure 111/73 122/56 L Pulse Oximetry 100 100 100 08/19/19 14:00 08/19/19 22:00 08/20/19 05:47 Temperature 98.2 F 97.8 F 97.5 F L Pulse Rate 76 82 72 Respiratory Rate 19 16 16 Blood Pressure 112/66 106/51 L 130/72 Pulse Oximetry 97 100 100 Intake/Output Intake/Output: Intake & Output 08/17/19 08/18/19 08/19/19 08/20/19 23:59 23:59 23:59 23:59 Intake Total 1867 2205 400 Balance 1867 2205 400 Meds/Results Medications: Active Medications Generic Name Dose Route Start Last Admin Trade Name Freq PRN Reason Stop Dose Admin Hydrocodone Bitart/Acetaminophen 1 tab 08/18/19 10:05 [place] 7.5-325 Mg PO Q4H PRN Pain rated 4-6 Cyanocobalamin 1,000 mcg 08/20/19 09:00 Vitamin B-12 Inj IM 08/20/19 09:01 ONCE ONE Famotidine 20 mg 08/18/19 11:00 08/19/19 22:13 Pepcid PO 20 mg Q12HR KENTRELL Administration Folic Acid 1 mg 08/18/19 10:05 08/19/19 09:21 Folic Acid PO 1 mg DAILY KENTRELL Administration Levothyroxine Sodium 50 mcg 08/19/19 06:30 08/20/19 06:33 Synthroid PO 50 mcg DAILY@0630 KENTRELL Administration Morphine Sulfate 4 mg 08/18/19 03:03 08/20/19 04:47 Morphine Sulfate Inj IV PUSH 4 mg Q2H PRN Administration Pain Rated 7-10 Ondansetron HCl 4 mg 08/18/19 03:03 08/19/19 11:52 Zofran Inj IV PUSH 4 mg Q4H PRN Administration Nausea Potassium Chloride 10 meq 08/18/19 09:00 08/19/19 09:21 Kcl Tablet PO 10 meq DAILY KENTRELL Administration Zolpidem Tartrate 5 mg 08/18/19 21:00 08/19/19 22:17 Ambien PO 5 mg HS KENTRELL Administration Radiology Results: ITS Impressions Chest X-Ray 08/18/19 06:46 IMPRESSION: 1. No acute cardiopulmonary disease. Venous Doppler Study 08/18/19 09:15 IMPRESSION: 1. Extensive deep venous thrombosis of the right lower limb as described above. These findings were discussed with the patient's nurse on [facility] at 0918 hours on 08/18/2019. Labs CBC & Chem 7: 08/20/19 05:49 08/20/19 05:49 Labs: Laboratory Results - last 24 hr 08/18/19 08/19/19 08/19/19 01:10 11:44 17:01 WBC 7.7 RBC 2.66 L Hgb 8.2 L 9.1 L Hct 26.6 L 29.2 L MCV 100.0 MCH 30.8 MCHC 30.8 L RDW 23.9 H Plt Count 144 L MPV 9.5 Sodium Potassium Chloride Carbon Dioxide BUN Creatinine Estim Creat Clear Calc Estimated GFR Glucose Calcium Crossmatch See Detail 08/20/19 08/20/19 05:49 05:49 WBC 6.1 RBC 2.55 L Hgb 7.9 L Hct 25.4 L MCV 99.6 MCH 31.0 MCHC 31.1 L RDW 23.7 H Plt Count 141 L MPV 9.8 Sodium 137 Potassium 4.0 Chloride 107 Carbon Dioxide 25 BUN 16 Creatinine 0.80 Estim Creat Clear Calc 109 Estimated GFR > 60 Glucose 83 Calcium 8.4 Crossmatch Quality VTE Prophylaxis VTE prophylaxis: mechanical ordered (LLE only
[2019-08-20] MEDS: CYANOCOBALAMIN INJ 1,000 MCG/ML VIAL 1000 MCG IM (08:35)
--- NOTE | 2019-08-20 09:07 | PM.IMPN ---
Progress Note: A&P Assessment and Plan (1) Anemia: Qualifiers: Anemia type: iron deficiency Iron deficiency anemia type: chronic blood loss Qualified Code(s): D50.0 - Iron deficiency anemia secondary to blood loss (chronic) Code(s): D64.9 - Anemia, unspecified Status: Acute Assessment and Plan: Symptomatic with dizziness and presyncope and fatigue 08/17 Transfused with 1 unit packed red cells and gave 400mg IV iron 08/18 Transfused with 2 U PRBC 08/19 hemoglobin 7.9 (2) Right leg DVT: Qualifiers: Affected thrombotic vein of extremity: unspecified vein of extremity Chronicity: acute Qualified Code(s): I82.401 - Acute embolism and thrombosis of unspecified deep veins of right lower extremity Code(s): I82.401 - Acute embolism and thrombosis of unspecified deep veins of right lower extremity Status: Acute Assessment and Plan: This is likely acute on chronic Unable to anticoagulate currently due to severe metromenorrhagia IVC filter in place Resume anticoagulation when surgically stable following planned endometrial ablation (3) Postphlebitic syndrome: Code(s): I87.009 - Postthrombotic syndrome without complications of unspecified extremity Status: Acute Assessment and Plan: Chronic Worsened right lower extremity possibly due to acute on chronic deep venous thrombosis (4) Hx pulmonary embolism: Code(s): Z86.711 - Personal history of pulmonary embolism Status: Acute Assessment and Plan: IVC filter in place (5) Lymph edema: Code(s): I89.0 - Lymphedema, not elsewhere classified Status: Acute Assessment and Plan: Chronic due to morbid obesity and recurrent deep venous thrombosis and lower extremities (6) Hypertension: Qualifiers: Hypertension type: essential hypertension Qualified Code(s): I10 - Essential (primary) hypertension Code(s): I10 - Essential (primary) hypertension Status: Acute Assessment and Plan: Hold metoprolol and monitor (7) Abnormal vaginal bleeding: Code(s): N93.9 - Abnormal uterine and vaginal bleeding, unspecified Status: Acute Assessment and Plan: Likely due to uterine fibroids and perimenopausal status Hot Dimpling Machine Operator consulted and taking patient to surgery today for D and C (8) B12 deficiency: Code(s): E53.8 - Deficiency of other specified B group vitamins Status: Acute Assessment and Plan: Likely due to prior gastric bypass IM B12 08/17, 08/18, 08/19 PO folic acid (9) Hypothyroidism (acquired): Code(s): E03.9 - Hypothyroidism, unspecified Status: Acute Assessment and Plan: Continue PO levothyroxine Subjective Date/time seen: 08/20/19 09:07 Interval history: Admitted due to menorhhagia and symptomatic anemia. 08/19 no lightheadedness today. Menses of almost stopped. Tolerating diet. Right legs still throbs when dependent. Still swollen. Review of Systems Review of Systems: All systems reviewed & are unremarkable except as noted in HPI and below Exam Narrative: Exam Narrative: HEENT: EOMI, PERRL, sclerae nonicteric, pharyngeal mucosa pink and intact NECK: No JVD, adenopathy, or thyromegaly CHEST: Clear to auscultation. Normal effort. HEART: NL S1/S2, regular, no murmur ABDOMEN: BS+, soft, nontender, no mass, no bruits EXTREMITIES: 4+ nonpitting edema right lower extremity to the thigh. 2+ nonpitting edema left lower extremity. No skin breakdown noted. NEUROLOGIC: CN intact and symmetric to inspection. MUSCULOSKELETAL: Tone and strength symmetric. PSYCH: Alert. Oriented to person, place, and time. Objective Data Vital Signs Vital Signs: Vital Signs - 24 hr 08/19/19 09:50 08/19/19 14:00 08/19/19 22:00 Temperature 97.8 F 98.2 F 97.8 F Pulse Rate 82 76 82 Respiratory Rate 17 19 16 Blood Pressure 122/56 L 112/66 106/51 L Pulse Oximetry 100 97 100 08/20/19 05:47 T
--- NOTE | 2019-08-20 12:49 | PC.NURSE ---
To OR per bed, IV saline locked.
[2019-08-20] MEDS: LACTATED RINGERS 1,000 ML 30 ML IV CONT (13:00)
--- NOTE | 2019-08-20 13:20 | WPDANESEPPF ---
Anes - Initial Pre Proc Eval Procedure: Operation Date: 08/20/19 14:15 Proposed Procedures p Hysteroscopy, Dilation and Curettage - Michelle Munoz MD Date/Time: 08/20/19 13:20 Surgeon: Phil Rivero MD Pre Op Diagnosis: Low BP, R leg swelling. Patient Data Age: 48 Gender: F Height: 5 ft 7 in Weight: 140.4 kg Last Vital Signs Temp 36.4 C 08/20/19 08:03 Pulse 70 08/20/19 08:03 Resp 18 08/20/19 08:03 BP 114/65 08/20/19 08:03 Pulse Ox 100 08/20/19 08:03 Allergies Allergy/AdvReac Type Severity Reaction Status Date / Time No Known Allergies Allergy Verified 08/19/19 08:18 Home Medications Medication Instructions Recorded Confirmed Type famotidine 20 mg PO BID 08/12/19 08/19/19 History furosemide 40 mg PO DAILY 08/12/19 08/19/19 History hydrocodone-acetaminophen 1 tablet PO Q4H PRN 08/12/19 08/19/19 History levothyroxine 50 mcg PO DAILY 08/12/19 08/19/19 History lisinopril 10 mg PO DAILY 08/12/19 08/19/19 History metoprolol succinate 25 mg PO DAILY 08/12/19 08/19/19 History potassium chloride 10 meq PO DAILY 08/12/19 08/19/19 History zolpidem 5 mg PO HS 08/12/19 08/19/19 History Laboratory Tests 08/19/19 08/20/19 08/20/19 17:01 05:49 05:49 WBC 6.1 K/mm3 K/mm3 (4.5-10.0) RBC 2.55 M/mm3 L M/mm3 (4.2-5.4) Hgb 9.1 g/dL L g/dL 7.9 g/dL L g/dL (12.0-15.0) (12.0-15.0) Hct 29.2 % L % 25.4 % L % (37.0-47.0) (37.0-47.0) MCV 99.6 fl fl (80-100) MCH 31.0 pg pg (26-34) MCHC 31.1 g/dl L g/dl (32-36) RDW 23.7 % H % (11.5-14.5) Plt Count 141 k/mm3 L k/mm3 (150-375) MPV 9.8 fl fl (7.4-10.4) Sodium 137 mmol/L mmol/L (137-145) Potassium 4.0 mmol/L mmol/L (3.4-5.0) Chloride 107 mmol/L mmol/L (98-107) Carbon Dioxide 25 mmol/L mmol/L (22-30) BUN 16 mg/dL mg/dL (7-17) Creatinine 0.80 mg/dL mg/dL (0.7-1.0) Estim Creat Clear Calc 109 ml/min ml/min Estimated GFR > 60 (59 - ) Glucose 83 mg/dL mg/dL (65-105) Calcium 8.4 mg/dL mg/dL (8.4-10.2) Patient hx anesthesia problems: none Family hx anesthesia problems: none PMFSH Past Medical History Medical History (Updated 08/18/19 @ 13:22 by Michelle Munoz MD) B12 deficiency History of deep vein thrombosis (DVT) of lower extremity Hx pulmonary embolism Hypertension been treated for 15 years Hypothyroidism (acquired) Postphlebitic syndrome Presence of IVC filter 11/2018 at [facility] (peptic ulcer disease) Surgical History Surgical History Delivery by section x 3 History of Adrienne-en-Y gastric bypass 2009 S/P tubal ligation Family History Family History Mother Hypertension Father Hypertension Social History Social History Social History: . Resides with her daughter. 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 Gender identity (if verbalized by the patient): Female Spiritual care concerns: No Agree to blood products: Yes Anes - Eval Final PreProcedure Day of Procedure 08/20/19 13:20 Patient weight: morbidly obese Heart: regular rate and rhythm Lungs: clear to auscultation Airway: Mallampati scale class 1 Neurological: alert and oriented Last oral intake: >/= 8 hours ASA classification: III Emergent: no Anesthetic plan: proceed Anesthesia type and monitoring: general GIVS and standard monitoring Informed Consent: The patient's anesthetic plan and its atte
--- NOTE | 2019-08-20 15:25 | SUR.OPER ---
600 ml of saline IN 600 ml of saline OUT Hysteroscopy irrigation
--- NOTE | 2019-08-20 15:28 | PM.OP ---
Procedure Note - Brief Procedure Note - Brief Date of procedure: 08/20/19 Pre-op diagnosis: Anemia, abnormal uterine bleeding Post-op diagnosis: same Procedure performed: D&C hysteroscopy Anesthesia: MAC and local Surgeon: Michelle Munoz MD Estimated blood loss (mL): 5 Drains: No Packing: No Pathology: yes (endometrial) Complications: No immediate complications Condition: other (unchanged) Disposition: PACU Findings: cervix very deep set and stenotic; Uterus enlarged at 12 cm; grossly normal appearing endometrium without fibroids or polyps
--- NOTE | 2019-08-20 16:09 | PC.NURSE ---
Returned from OR per bed.
[2019-08-20] MEDS: FAMOTIDINE 20 MG TABLET PO (20:20)
--- NOTE | 2019-08-20 21:14 | OP_ITS ---
DATE OF PROCEDURE: 08/20/2019 PREOPERATIVE DIAGNOSIS: Menorrhagia with anemia. POSTOPERATIVE DIAGNOSIS: Menorrhagia with anemia. PROCEDURE: 1. D and C. 2. Hysteroscopy. ANESTHESIA: MAC and local. FINDINGS: The cervix is very deep set and stenotic. The endometrium appears grossly normal and measures 12 cm. ESTIMATED BLOOD LOSS: 5 cc. PATHOLOGY: Endometrial curettings. DESCRIPTION OF PROCEDURE: The patient was taken to the operating room, placed under anesthesia in the dorsal lithotomy position using extra arm boards and straps due to the very large lymphedema and swelling from the extensive right DVT. Once the patient is in a stable position, she is placed under anesthesia, prepped and draped in the usual sterile fashion. The bivalve speculum is placed in the vagina. The cervix is not visible. The extra long Graves speculum is utilized and the cervix is barely visible. It is grasped on the anterior lip with a tenaculum and pulled down into the speculum. The cervix is injected with 1% lidocaine. The uterus is attempted to be sounded but due to stenosis at the internal os, this is not successful. The os Finders are utilized and this is not successful. The small dilator is used and on the #4 dilator, the internal os is able to be entered. The cervix is then serially dilated with difficulty to an 8 Hegar. The diagnostic hysteroscope is placed. The speculum is removed due to the deep cervix. The hysteroscope could not enter very far into the cavity without the speculum being removed. Once the hysteroscope is in place, the visualization of the entire endometrium is possible and appears grossly normal. There are some minimal detaching fragments near the cervical junction. The hysteroscope was removed. The medium sharp curette was used to sharply curette the endometrium until a good uterine cry was noted in all areas. Minimal material was obtained consistent with the appearance. All instruments are removed. The patient was taken to recovery in stable condition . D I MT: Dia
[2019-08-20] MEDS: ZOLPIDEM TARTRATE 5 MG TABLET PO (22:52)
[2019-08-21] MEDS: MORPHINE SULFATE 4 MG/ML INJ IV PUSH (03:35)
[2019-08-21 03:36] VITALS: BP 104/63; PULSE 78; RESP 16; TEMP 36.4; O2SAT 100
[2019-08-21 06:00] VITALS: BP 113/74; PULSE 74; RESP 16; TEMP 36.7; O2SAT 99
[2019-08-21] MEDS: LEVOTHYROXINE SODIUM 50 MCG TABLET PO (06:10)
[2019-08-21] MEDS: CYANOCOBALAMIN INJ 1,000 MCG/ML VIAL 1000 MCG IM (08:31)
[2019-08-21] MEDS: FOLIC ACID 1 MG TABLET PO (08:32)
[2019-08-21] MEDS: POTASSIUM CHLORIDE 10 MEQ TABLET.ER PO (08:32)
[2019-08-21] MEDS: FAMOTIDINE 20 MG TABLET PO (08:32)
[2019-08-21 09:23] LABS: Hematocrit 28.3 % (37.0-47.0); Hemoglobin 8.7 g/dL (12.0-15.0); Mean Corpuscular HGB Conc 30.7 g/dl (32-36); Mean Corpuscular Hemoglobin 30.9 pg (26-34); Mean Corpuscular Volume 100.4 fl (80-100); Mean Platelet Volume 10.7 fl (7.4-10.4); Platelet Count Result 153 k/mm3 (150-375); Red Blood Count 2.82 M/mm3 (4.2-5.4); Red Cell Distribution Width 22.3 % (11.5-14.5); White Blood Count 8.7 K/mm3 (4.5-10.0)
[2019-08-21 09:40] LABS: Blood Urea Nitrogen 15 mg/dL (7-17); Calcium 8.7 mg/dL (8.4-10.2); Carbon Dioxide 22 mmol/L (22-30); Chloride 108 mmol/L (98-107); Estimated CRCL calculation 123 ml/min; Estimated Glomerular Filt Rate > 60; Glucose 94 mg/dL (65-105); Sodium 136 mmol/L (137-145)
--- NOTE | 2019-08-21 10:54 | PM.DS ---
DS: Summary Hospital Course Reason for hospitalization: symptomatic anemia Hospital Course: Admitted with symptomatic anemia due to menorrhagia. Transfused as noted. Iron and B12 supplemented. B12 level from prior admission had returned low. Folic acid was added. Did well with D/C on day prior to discharge. Uterine bleeding almost completely resolved. INSULATION CUTTER AND FORMER ok to restart anticoagulation for acute on chronic RLE DVT and chronic postphlebitic syndrome. Time Spent with Patient Time attestation: Total time spent providing and/or coordinating discharge services: Time spent: Greater than 30 minutes Exam Narrative: Exam Narrative: HEENT: EOMI, PERRL, sclerae nonicteric, pharyngeal mucosa pink and intact NECK: No JVD, adenopathy, or thyromegaly CHEST: Clear to auscultation. Normal effort. HEART: NL S1/S2, regular, no murmur ABDOMEN: BS+, soft, nontender, no mass, no bruits EXTREMITIES: 4+ nonpitting edema right lower extremity to the thigh. 2+ nonpitting edema left lower extremity. No skin breakdown noted. NEUROLOGIC: CN intact and symmetric to inspection. MUSCULOSKELETAL: Tone and strength symmetric. PSYCH: Alert. Oriented to person, place, and time. DS: Data Data Completed and Pending Pending studies at discharge: Pending at discharge 08/20/19 15:31 Surgical [PTH] Routine Labs on day of discharge: Labs from last 24 hours 08/21/19 08/21/19 08:37 08:37 WBC 8.7 RBC 2.82 L Hgb 8.7 L Hct 28.3 L MCV 100.4 H MCH 30.9 MCHC 30.7 L RDW 22.3 H Plt Count 153 MPV 10.7 H Sodium 136 L Potassium 4.0 Chloride 108 H Carbon Dioxide 22 BUN 15 Creatinine 0.70 Estim Creat Clear Calc 123 Estimated GFR > 60 Glucose 94 Calcium 8.7 Discharge Plan Discharge Consulting providers: Michelle Munoz ; Byron Quinones ; Olivier Pulliam V. ; Francisco Lindsey ; Cleopatra Grant Discharging Clinician: Sea Nelson Patient Disposition: Home, Self-Care Activity: as tolerated Diet: regular Discharge Instructions: Dr. James, covering for Dr. Munoz, recommends that you start Xarelto this PM. Patient Instructions: Antibiotic Form, Heart Failure (DC), Deep Vein Thrombosis (GEN) Stand Alone Forms: General Discharge Information Follow-up/Referrals: Yamilka,DENNISE Perez [Primary Care Provider] - Call for Appointment Michelle Munoz MD [Physician] - Call for Appointment Discharge Medications: New folic acid 1 mg Tablet 1 mg PO DAILY Qty: 30 RF: 0 cyanocobalamin (vitamin B-12) 1,000 mcg/mL kit 100 mcg IM MONTHLY Qty: 5 RF: 0 hydrocodone-acetaminophen 7.5-325 mg Tablet 1 tablet PO Q4H PRN (Reason: Pain) Qty: 20 RF: 0 Xarelto 20 mg tablet 20 mg PO QPM Qty: 30 RF: 0 Continued potassium chloride 10 mEq tablet extended release 10 meq PO DAILY RF: 0 famotidine 20 mg tablet 20 mg PO BID RF: 0 zolpidem 5 mg tablet 5 mg PO HS RF: 0 Discontinued furosemide 40 mg tablet 40 mg PO DAILY RF: 0 lisinopril 10 mg tablet 10 mg PO DAILY RF: 0 metoprolol succinate 25 mg tablet extended release 24 hr 25 mg PO DAILY RF: 0 levothyroxine 25 mcg Capsule 50 mcg PO DAILY RF: 0 Date of admission: 08/20/19 13:55 Primary Care Provider: YamilkaSeema Admitting Provider: Phil Rivero Discharge Date/Time: 08/21/19 13:06 Attending physician on admission: Sea Nelson Condition: Stable Quality VTE Prophylaxis VTE prophylaxis: mechanical ordered (LLE only)
--- NOTE | 2019-08-21 14:10 | WPDANESPN ---
Anes - Prog Note Post-Op Date/Time: 08/21/19 14:10 Cardiovascular status: normal Respiratory status: normal Airway patency: baseline Mental status: baseline Post-Op hydration status: normal Vital Signs: Last Vital Signs Temp 36.7 C 08/21/19 06:00 Pulse 74 08/21/19 06:00 Resp 16 08/21/19 06:00 BP 113/74 08/21/19 06:00 Pulse Ox 99 08/21/19 06:00 I/O: Intake & Output 08/20/19 08/21/19 08/21/19 23:59 07:59 15:59 Intake Total 250 700 480 Balance 250 700 480 Laboratory Tests 08/21/19 08:37 08/21/19 08:37 08/21/19 08/21/19 08:37 08:37 WBC 8.7 RBC 2.82 L Hgb 8.7 L Hct 28.3 L MCV 100.4 H MCH 30.9 MCHC 30.7 L RDW 22.3 H Plt Count 153 MPV 10.7 H Sodium 136 L Potassium 4.0 Chloride 108 H Carbon Dioxide 22 BUN 15 Creatinine 0.70 Estim Creat Clear Calc 123 Estimated GFR > 60 Glucose 94 Calcium 8.7 Post-procedural complaints: none Patient Feedback: Patient satisfied with anesthetic care.
== END 2019-08-21 13:06 | disposition home or self-care (01) | DRG 744 ==
LOC: ANHED 08-18 03:04 → ANH2MED 08-18 03:47
PROVIDERS: Obstetrics & Gynecology Gynecology; Admitting Provider Family Medicine; Emergency Provider General Practice; PCP Physician Assistant; Visit Provider Internal Medicine
PROC: 0U5B8ZZ Destruction of Endometrium, Via Natural or Artificial Opening Endoscopic (ICD-10-PCS; CPT 58563; principal; 2019-08-20 14:15)
DX: N92.0 Excessive and frequent menstruation with regular cycle (principal); I82.401 Acute embolism and thrombosis of unspecified deep veins of right lower extremity; Z68.42 Body mass index [BMI] 45.0-49.9, adult; E66.01 Morbid (severe) obesity due to excess calories; N88.2 Stricture and stenosis of cervix uteri; D50.0 Iron deficiency anemia secondary to blood loss (chronic); I87.009 Postthrombotic syndrome without complications of unspecified extremity; I89.0 Lymphedema, not elsewhere classified; I10 Essential (primary) hypertension; E53.8 Deficiency of other specified B group vitamins; E03.9 Hypothyroidism, unspecified; Z86.711 Personal history of pulmonary embolism; Z98.84 Bariatric surgery status
CPT/HCPCS: 36415; 36430; 71045; 80048; 80053; 81025; 83880; 84484; 85014; 85018; 85025; 85027; 85610; 86850; 86900; 86901; 86923; 88305; 93005; 93971; 96361; 96365; 96366; 96372; 96374; 96375; 96376; 99285; A9270; G0378; J1756; J1940; J2250; J2270; J2405; J3010; J3420; J7030; J7050; J7120; P9016

== ENCOUNTER 2019-08-26 00:39 | Outpatient (CLI) | payer BC, SELFPAY ==
[2019-08-26 17:59] LABS: SARS-CoV-2 RNA PCR Negative
== END 2019-08-26 00:40 | disposition home or self-care (01) ==
LOC: ANHCOVIDDT 00:39
PROVIDERS: PCP Physician Assistant; Visit Provider Obstetrics & Gynecology Gynecology
DX: Z01.818 Encounter for other preprocedural examination (principal); Z11.59 Encounter for screening for other viral diseases
CPT/HCPCS: 87635; C9803; U0003

== ENCOUNTER 2019-08-28 05:43 | Day surgery (SDC) | payer BC, SELFPAY ==
[2019-08-25 12:45] VITALS: BMI 52.7
--- NOTE | 2019-08-28 07:13 | WPDANESEPPF ---
Anes - Initial Pre Proc Eval Procedure: Operation Date: 08/28/19 08:30 Proposed Procedures p Hysteroscopy, Endometrial Ablation - Michelle Munoz MD Date/Time: 08/28/19 07:13 Surgeon: Michelle Munoz MD Pre Op Diagnosis: menorrhaghia Patient Data Age: 48 Gender: F Height: 5 ft 7 in Weight: 152.86 kg Allergies Allergy/AdvReac Type Severity Reaction Status Date / Time No Known Allergies Allergy Verified 08/25/19 12:45 Home Medications Medication Instructions Recorded Confirmed Type famotidine 20 mg PO BID 08/12/19 08/25/19 History potassium chloride 10 meq PO DAILY 08/12/19 08/25/19 History zolpidem 5 mg PO HS 08/12/19 08/25/19 History cyanocobalamin (vitamin B-12) 100 mcg IM MONTHLY #5 each 08/21/19 08/25/19 Rx folic acid 1 mg PO DAILY #30 tablet 08/21/19 08/25/19 Rx hydrocodone-acetaminophen 1 tablet PO Q4H PRN #20 tablet 08/21/19 08/25/19 Rx rivaroxaban [Xarelto] 20 mg PO QPM #30 tablet 08/21/19 08/25/19 Rx Patient hx anesthesia problems: none Family hx anesthesia problems: none PMFSH Past Medical History Medical History B12 deficiency History of deep vein thrombosis (DVT) of lower extremity Hx pulmonary embolism Hypertension been treated for 15 years Hypothyroidism (acquired) Postphlebitic syndrome Presence of IVC filter 11/2018 at [facility] (peptic ulcer disease) Surgical History Surgical History Delivery by section x 3 History of Adrienne-en-Y gastric bypass 2009 S/P tubal ligation Family History Family History Mother Hypertension Father Hypertension Social History Social History Social History: . Resides with her daughter. 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 Gender identity (if verbalized by the patient): Female Spiritual care concerns: No Agree to blood products: Yes Anes - Eval Final PreProcedure Day of Procedure 08/28/19 07:13 Patient weight: morbidly obese Heart: regular rate and rhythm Lungs: clear to auscultation Airway: Mallampati scale class II Neurological: alert and oriented Last oral intake: >/= 8 hours ASA classification: III Emergent: no Anesthetic plan: proceed Anesthesia type and monitoring: general GIVS and standard monitoring Informed Consent: The patient's anesthetic plan and its attendant risks and benefits were discussed with the patient/family/POA. Questions were solicited and answers provided to the satisfaction of the patient/family/POA.
[2019-08-28 07:30] VITALS: BP 120/67; PULSE 72; RESP 16; TEMP 36.7; O2SAT 96
[2019-08-28] MEDS: LACTATED RINGERS 1,000 ML 30 ML IV CONT (07:30)
--- NOTE | 2019-08-28 07:33 | PM.HPGS ---
History of Present Illness History of Present Illness Consent: Risks, benefits, and alternatives have been discussed and questions answered. Patient agrees to proceed with procedure. Chief complaint: menorrhaghia Narrative: Tiarra Addison is a 48 year old female with menorrhagia here for endometrial ablation with Margarita. Risks of infection, bleeding, perforation, and success discussed with patient. Patient with current DVT and has continued her Xeralto. PMFSH Past Medical History Medical History B12 deficiency History of deep vein thrombosis (DVT) of lower extremity Hx pulmonary embolism Hypertension been treated for 15 years Hypothyroidism (acquired) Postphlebitic syndrome Presence of IVC filter 11/2018 at [facility] (peptic ulcer disease) Surgical History Surgical History Delivery by section x 3 History of Adrienne-en-Y gastric bypass 2009 S/P tubal ligation Family History Family History Mother Hypertension Father Hypertension Social History Social History Social History: . Resides with her daughter. 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 Gender identity (if verbalized by the patient): Female Spiritual care concerns: No Agree to blood products: Yes Meds Home Medications and Allergies Home Medications Medication Instructions Recorded Confirmed Type famotidine 20 mg PO BID 08/12/19 08/25/19 History potassium chloride 10 meq PO DAILY 08/12/19 08/25/19 History zolpidem 5 mg PO HS 08/12/19 08/25/19 History cyanocobalamin (vitamin B-12) 100 mcg IM MONTHLY #5 each 08/21/19 08/25/19 Rx folic acid 1 mg PO DAILY #30 tablet 08/21/19 08/25/19 Rx hydrocodone-acetaminophen 1 tablet PO Q4H PRN #20 tablet 08/21/19 08/25/19 Rx rivaroxaban [Xarelto] 20 mg PO QPM #30 tablet 08/21/19 08/25/19 Rx Allergies Allergy/AdvReac Type Severity Reaction Status Date / Time No Known Allergies Allergy Verified 08/25/19 12:45 Exam Narrative: Exam Narrative: weight 337 : External Female Exam: normal external appearance Speculum Exam - Vagina: normal appearance of the vagina Speculum Exam - Cervix: normal appearance of the cervix (but very deep set) Bimanual exam- vagina & uterus: enlarged (12 cm by sound; not palpable) Assessment and Plan Assessment and plan (1) Perimenopausal menorrhagia: Code(s): N92.4 - Excessive bleeding in the premenopausal period Status: Acute Assessment and Plan: Plan to proceed with Margarita ablation (2) Anemia: Qualifiers: Anemia type: iron deficiency Iron deficiency anemia type: chronic blood loss Qualified Code(s): D50.0 - Iron deficiency anemia secondary to blood loss (chronic) Code(s): D64.9 - Anemia, unspecified Status: Acute
[2019-08-28 07:43] LABS: Hematocrit 36.1 % (37.0-47.0); Hemoglobin 10.9 g/dL (12.0-15.0)
--- NOTE | 2019-08-28 07:48 | SUR.PREOP ---
0710- Patient informed she took her Xarelto yesterday at 1700 She wasn't aware of needing to hold it. I informed Dr Munoz and she stated that she told patient to continue to take it
[2019-08-28 09:15] VITALS: BP 106/64; PULSE 67; RESP 16; O2SAT 100
--- NOTE | 2019-08-28 09:27 | PM.OP ---
Procedure Note - Brief Procedure Note - Brief Date of procedure: 08/28/19 Pre-op diagnosis: menorrhaghia Post-op diagnosis: same Procedure performed: Margarita ablation Anesthesia: MAC and local Surgeon: Michelle Munoz MD Estimated blood loss (mL): 5 Drains: No Packing: No Pathology: none sent Complications: No immediate complications Condition: stable Disposition: PACU Findings: uterus grossly normal appearing; cervix deep set; uterus 12 cm and cervix long at 6 cm; device set at 6 cm
[2019-08-28 09:45] VITALS: BP 113/62; PULSE 67; RESP 16
[2019-08-28 10:00] VITALS: BP 108/52; PULSE 66; RESP 16
--- NOTE | 2019-08-28 10:22 | SUR.OPER ---
600ml ns in, 400ml output. aware
--- NOTE | 2019-08-29 02:32 | OP_ITS ---
DATE OF PROCEDURE: 08/28/2019 PREOPERATIVE DIAGNOSIS: Menorrhagia with anemia. POSTOPERATIVE DIAGNOSIS: Menorrhagia with anemia. PROCEDURE: Margarita of endometrial ablation. SURGEON: Michelle Munoz M.D. ANESTHESIA: MAC and local. FINDINGS: The uterus sounds to 12 cm. The cervix is very deep set. The cervical canal was approximately 6 cm. The endometrium appears grossly normal. The cervix is stenotic. ESTIMATED BLOOD LOSS: 5 cc. PATHOLOGY: None. DESCRIPTION OF PROCEDURE: The patient was taken to the operating room, placed under anesthesia in the dorsal lithotomy position. She was prepped and draped in the usual sterile fashion. Bivalved speculum was placed in the vagina. The cervix was grasped and pulled down into the speculum on the anterior lip. The angle of the cervical os is pointing very posterior. The 2nd tenaculum was placed at 2 o'clock, the 1st tenaculum was replaced at 11 o'clock. The cervical os was then visible and at an angle to attempt entry. The uterus was attempted to be sounded, this was not successful. Os finders were used and was able to open the stenosis. The uterus was then sounded to 12 cm. The cervix was dilated with difficulty to an 8 Hegar. The diagnostic hysteroscope was placed verifying endometrial cavity assessment. The hysteroscope was removed. The Margarita device was opened and placed. Due to the angle, the speculum needed to be removed to place the device. The device is set for 6 cm. The cavity assessment passed on the 1st attempt. Treatment cycle lasted a full 2 minutes. All instruments were removed from the patient. No bleeding was noted from the tenaculum site. The patient was awakened from anesthesia and taken to Recovery in stable condition. D I MT: Dia
== END 2019-08-28 10:20 | disposition home or self-care (01) ==
PROVIDERS: PCP Physician Assistant; Visit Provider Obstetrics & Gynecology Gynecology
PROC: 0U5B8ZZ Destruction of Endometrium, Via Natural or Artificial Opening Endoscopic (ICD-10-PCS; CPT 58563; principal; 2019-08-28 08:30)
DX: N92.4 Excessive bleeding in the premenopausal period (principal); D50.0 Iron deficiency anemia secondary to blood loss (chronic); I10 Essential (primary) hypertension; E03.9 Hypothyroidism, unspecified; K27.9 Peptic ulcer, site unspecified, unspecified as acute or chronic, without hemorrhage or perforation; E53.8 Deficiency of other specified B group vitamins; Z86.718 Personal history of other venous thrombosis and embolism; Z98.84 Bariatric surgery status; E66.01 Morbid (severe) obesity due to excess calories; Z68.43 Body mass index [BMI] 50.0-59.9, adult; Z79.01 Long term (current) use of anticoagulants
CPT/HCPCS: 58563; 36415; 85014; 85018; A9270; J0131; J2250; J2405; J2704; J3010; J7120

== ENCOUNTER 2019-09-07 16:02 | Outpatient (CLI) | payer BC, SELFPAY ==
[2019-09-07 16:14] LABS: Basophils Percent Auto 0.1 % (0.2-1.2); Eosinophils Absolute Auto 0.1 K/mm3 (0-0.3); Hematocrit 33.8 % (37.0-47.0); Hemoglobin 10.5 g/dL (12.0-15.0); Immature Granulocyte Absolute 0.05 K/mm3 (0.00-0.031); Immature Granulocyte Percent A 0.3 % (0-0.5); Lymphocytes Absolute Auto 1.25 K/mm3 (0.9-3.2); Lymphocytes Percent Auto 8.6 % (18.3-44.2); Mean Corpuscular HGB Conc 31.1 g/dl (32-36); Mean Corpuscular Hemoglobin 28.8 pg (26-34); Mean Corpuscular Volume 92.9 fl (80-100); Mean Platelet Volume 10.4 fl (7.4-10.4); Monocytes Absolute Auto 0.7 K/mm3 (0.1-0.6); Monocytes Percent Auto 4.9 % (2.6-8.5); Neutrophils Absolute Auto 12.3 K/mm3 (1.3-6.7); Neutrophils Percent Auto 85.1 % (45.5-73.1); Platelet Count Result 249 k/mm3 (150-375); Red Blood Count 3.64 M/mm3 (4.2-5.4); Red Cell Distribution Width 17.2 % (11.5-14.5); White Blood Count 14.5 K/mm3 (4.5-10.0)
[2019-09-07 16:47] LABS: Iron 17 ug/dL (37-170)
[2019-09-07 16:49] LABS: Alanine Aminotransferase 10 U/L (4-35); Albumin Level 3.9 g/dL (3.5-5.1); Alkaline Phosphatase 81 U/L (38-126); Aspartate Amino Transferase 21 U/L (14-36); Bilirubin,Total 1.1 mg/dL (0.2-1.3); Blood Urea Nitrogen 16 mg/dL (7-17); Calcium 9.7 mg/dL (8.4-10.2); Carbon Dioxide 25 mmol/L (22-30); Chloride 104 mmol/L (98-107); Estimated Glomerular Filt Rate > 60; Glucose 94 mg/dL (65-105); Potassium 3.5 mmol/L (3.4-5.0); Sodium 137 mmol/L (137-145)
[2019-09-07 17:01] LABS: Percent Iron Saturation 5 % (20-50)
== END 2019-09-07 16:03 | disposition home or self-care (01) ==
LOC: ANHLAB 16:04
PROVIDERS: PCP Physician Assistant; Visit Provider Internal Medicine Hematology & Oncology
DX: D64.9 Anemia, unspecified (principal)
CPT/HCPCS: 36415; 80053; 82607; 82728; 83540; 83550; 85025

== ENCOUNTER 2019-12-02 13:29 | Emergency (ER) | payer BC, SELFPAY ==
[2019-12-02 13:47] VITALS: BP 178/93; PULSE 81; RESP 16; TEMP 37.3; O2SAT 98
--- NOTE | 2019-12-02 14:20 | ED.GENADULT ---
HPI - General Adult General Chief complaint: Extremity Problem,Nontraumatic Stated complaint: left leg cellulitis Time Seen by Provider: 12/02/19 14:20 Source: patient and RN notes reviewed Mode of arrival: ambulatory Limitations: no limitations History of Present Illness HPI narrative: 48-year-old -Prydeinig female presents with complaints of redness, warmth, tenderness, and swelling to the back of LT lower leg for 1 day. Tenderness and warmth increase throughout the days. History of Cellulitis. No treatment. Denies radiation of tenderness, redness, or swelling. Exacerbating factors walking. Denies open areas or drainage. Denies fever or chills. Denies nausea, vomiting, and abdominal pain. The patient reports she have not been diagnosed with COVID-19. The patient reports she is not waiting for the results of a COVID-19 lab test. The patient reports she do not have fever, chills, weakness, or fatigue. The patient reports she do not have a new or worsening cough or shortness of breath. Denies chest pain. The patient reports she do not have any rhinorrhea, congestion, sore throat, and diarrhea. Tolerating po intake well. Denies recent traveling. Denies concerns for COVID-19 or exposures been home with limited outdoor exposure except for essential household needs and return home. At this time, patient is not suspected of having COVID-19. Some parts of this dictation were generated by voice recognition software and may contain typographical and/or grammatical inaccuracies. Related Data Home Medications Medication Instructions Recorded Confirmed famotidine 20 mg PO BID 08/12/19 10/13/19 potassium chloride 10 meq PO DAILY 08/12/19 10/13/19 zolpidem 5 mg PO HS 08/12/19 10/13/19 metoprolol succinate 25 mg PO DAILY 10/13/19 10/13/19 buprenorphine 12/02/19 ferrous sulfate 12/02/19 furosemide 12/02/19 gabapentin 12/02/19 omeprazole 12/02/19 Allergies Allergy/AdvReac Type Severity Reaction Status Date / Time No Known Allergies Allergy Verified 09/29/19 12:06 Review of Systems Review of Systems: Narrative: CONSTITUTIONAL: Denies fever, chills, sweats. EYES: Denies visual changes, redness, discharge. ENT: Denies rhinorrhea, congestion, sore throat, otalgia. CARDIOVASCULAR: Denies chest pain, palpitations, edema. RESPIRATORY: Denies dyspnea, wheezing, cough. GASTROINTESTINAL: Denies abdominal pain, nausea, vomiting, diarrhea. GENITOURINARY: Denies dysuria, hematuria, abnormal discharge. SKIN: Complaints of redness, warmth, tenderness, and swelling to the back of LT lower leg. MUSCULOSKELETAL: Denies acute back pain, joint pain, or myalgia. NEUROLOGIC: Denies numbness or focal weakness. PSYCHIATRIC: Denies anxiety or depression. All systems reviewed & are unremarkable except as noted in HPI and below. [facility] Past Medical History Medical History (Updated 12/02/19 @ 15:36 by GIANA Harris) B12 deficiency History of deep vein thrombosis (DVT) of lower extremity Hx pulmonary embolism Hypertension been treated for 15 years Hypothyroidism (acquired) Lymph edema Perimenopausal menorrhagia Postphlebitic syndrome Presence of IVC filter 11/2018 at [facility] (peptic ulcer disease) Surgical History Surgical History Delivery by section x 3 History of Adrienne-en-Y gastric bypass 2009 S/P tubal ligation Family History Family History Mother Hypertension Father Hypertension Social History Social History Social History: . Resides with her daughter. 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
== END 2019-12-02 14:44 | disposition home or self-care (01) ==
PROVIDERS: Emergency Provider Nurse Practitioner Family; PCP Physician Assistant
DX: L03.116 Cellulitis of left lower limb (principal); Z86.718 Personal history of other venous thrombosis and embolism; Z86.711 Personal history of pulmonary embolism; I10 Essential (primary) hypertension; E03.9 Hypothyroidism, unspecified; K27.9 Peptic ulcer, site unspecified, unspecified as acute or chronic, without hemorrhage or perforation; Z98.84 Bariatric surgery status
CPT/HCPCS: 99213; G0463

== ENCOUNTER 2019-12-09 22:53 | Emergency (ER) | payer BC, SELFPAY ==
--- NOTE | ~2019-12-09 | CT_ITS ---
EXAMINATION: CTA chest PE protocol DATE: 12/10/2019 02:40 INDICATION: Shortness of breath TECHNIQUE: Computed tomography angiography (CTA) of the chest was performed with 100 mL Omnipaque-350 intravenous contrast timed to evaluate the pulmonary arteries. Coronal maximum intensity projection 3D-reconstructions were created by the technologist. The dose-length product (DLP) was 901.32 mGy-cm. Automated exposure control and iterative reconstruction technique were employed. COMPARISON: None. FINDINGS: The pulmonary arteries are well-opacified. Respiratory motion artifact slightly limits eval uation of subsegmental branches in the lower lobes. No pulmonary embolism is identified. Calcified pu lmonary nodules and calcified left hilar and subcarinal lymph nodes are consistent with old granuloma tous disease. There is no pleural effusion or pneumothorax. No pathologically enlarged thoracic lymph nodes are identified. The heart size is normal. Surgical changes in the stomach are likely related t o gastric bypass. IMPRESSION: 1. No pulmonary embolism or acute cardiopulmonary abnormality. Reviewed, dictated and finalized at location A.
[2019-12-09 23:04] VITALS: BP 157/90; PULSE 72; RESP 18; TEMP 36.4; O2SAT 100
--- NOTE | 2019-12-10 00:41 | ECG_ITS ---
Measurements Intervals [place] Rate: 61 P: 38 CO: 169 QRS: -11 QRSD: 90 T: -16 QT: 399 QTc: 402 Interpretive Statements SINUS RHYTHM WITH SINUS ARRHYTHMIA INCOMPLETE RIGHT BUNDLE BRANCH BLOCK DELAYED PRECORDIAL R/S TRANSITION VOLTAGE CRITERIA FOR LVH BORDERLINE ST-T WAVE ABNORMALITY- ANT/INF LEADS BASELINE ARTIFACT- I, III, AVL BORDERLINE ECG Electronically Signed On 12-10-2019 8:12:04 CDT by Byron Quinones D.O.
--- NOTE | 2019-12-10 00:42 | ED.RECABL ---
HPI - Recheck/Abnormal Lab/Rx General Chief Complaint: Recheck/Abnormal Lab/Rx Stated Complaint: elevated blood pressure and short of breath Time Seen by Provider: 12/10/19 00:08 Source: patient Mode of arrival: ambulatory Limitations: no limitations History of Present Illness HPI narrative: This patient is a 48 year old female with history of lymphedema, DVT , and hypertension who presents for evaluation sob and lightheadness. PAtient reports she has been sob for 4 days. Every time she gets up she states she is lightheaded and sob. She denies chest pain, cough or fever. She has been dealing with increased warmth to her left leg, and she was treated for antibiotics for cellulitis. She reports she states has increased warmth. She was diagnosed with right lower extremity DVT in August and she is taking Xarelto 20 mg daily . She denies missing any doses. Related Data Home Medications Medication Instructions Recorded Confirmed famotidine 20 mg PO BID 08/12/19 12/08/19 potassium chloride 10 meq PO DAILY 08/12/19 12/08/19 zolpidem 5 mg PO HS 08/12/19 12/08/19 metoprolol succinate 25 mg PO DAILY 10/13/19 12/08/19 buprenorphine [Butrans] 10 mcg TOPICAL WEEKLY 12/02/19 12/08/19 ferrous sulfate 325 mg PO DAILY 12/02/19 12/08/19 furosemide 40 mg PO DAILY 12/02/19 12/08/19 gabapentin 300 mg PO DAILY 12/02/19 12/08/19 omeprazole 40 mg PO DAILY 12/02/19 12/08/19 Allergies Allergy/AdvReac Type Severity Reaction Status Date / Time No Known Allergies Allergy Verified 09/29/19 12:06 Review of Systems Review of Systems: All systems reviewed & are unremarkable except as noted in HPI and below Constitutional: Constitutional: Denies chills and Denies fever(s) Cardiovascular: Cardiovascular: Denies chest pain Respiratory: Respiratory: Denies cough, Reports dyspnea and Denies wheezing Gastrointestinal: Gastrointestinal: Denies abdominal pain, Denies diarrhea, Reports nausea and Denies vomiting Genitourinary: Genitourinary: Denies hematuria and Denies flank pain Integumentary/Breasts: Skin/Breast: Denies erythema and Denies rash Neurologic: Reports dizziness and Denies focal weakness [facility] Past Medical History Medical History B12 deficiency History of deep vein thrombosis (DVT) of lower extremity Hx pulmonary embolism Hypertension been treated for 15 years Hypothyroidism (acquired) Lymph edema Perimenopausal menorrhagia Postphlebitic syndrome Presence of IVC filter 11/[address] [facility] (peptic ulcer disease) Surgical History Surgical History Delivery by section x 3 History of Adrienne-en-Y gastric bypass 2010 S/P tubal ligation Social History Social History Social History: . Resides with her daughter. 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 Gender identity (if verbalized by the patient): Female Spiritual care concerns: No Agree to blood products: Yes Exam Const: General: no acute distress and alert Orientation/consciousness: patient oriented x3 HENMT: Head: normocephalic and atraumatic General nose exam: No nasal polyps present Face and sinus: face symmetric Mouth: Yes Normal oral and palatal mucosa present, Yes lip normal and Yes oropharynx normal Throat: posterior oropharynx normal Eyes: Pupils: Equal, round and reactive pupils present EOM: EOMs intact bilaterally Chest: Chest palpation & inspection: normal inspection of the chest Resp: Effort & Inspection: normal respiratory effort, no retractions and no use of accessory muscles Auscultation: clear to auscultati
[2019-12-10 00:55] VITALS: BP 127/86; PULSE 62; RESP 18; O2SAT 99
[2019-12-10 00:58] LABS: Basophils Percent Auto 0.4 % (0.2-1.2); Eosinophils Absolute Auto 0.3 K/mm3 (0-0.3); Eosinophils Percent Auto 3.6 % (0-4.4); Hematocrit 41.1 % (37.0-47.0); Hemoglobin 12.9 g/dL (12.0-15.0); Immature Granulocyte Absolute 0.04 K/mm3 (0.00-0.031); Immature Granulocyte Percent A 0.5 % (0-0.5); Lymphocytes Percent Auto 16.5 % (18.3-44.2); Mean Corpuscular HGB Conc 31.4 g/dl (32-36); Mean Corpuscular Hemoglobin 27.7 pg (26-34); Mean Corpuscular Volume 88.2 fl (80-100); Mean Platelet Volume 9.6 fl (7.4-10.4); Monocytes Absolute Auto 0.7 K/mm3 (0.1-0.6); Monocytes Percent Auto 8.3 % (2.6-8.5); Neutrophils Absolute Auto 5.6 K/mm3 (1.3-6.7); Neutrophils Percent Auto 70.7 % (45.5-73.1); Platelet Count Result 265 k/mm3 (150-375); Red Blood Count 4.66 M/mm3 (4.2-5.4); Red Cell Distribution Width 17.6 % (11.5-14.5); White Blood Count 7.9 K/mm3 (4.5-10.0)
[2019-12-10 00:59] LABS: Alveolar/Arterial O2 Gradient 36.8 mmHg; Base Excess ABG 1.2 mEq/l (+/-2.0); Carboxyhemoglobin 0.3 % THb (0-2.0); Device ROOM AIR; Fractional Inspired Oxygen 21 %; HCO3 ABG 25.3 mEq/l (22.0-26.0); Methemoglobin ABG 0.3 %THb (0-1.5); Oxyhemoglobin 92.2 % THb (90.0-100.0); PCO2 ABG 38.3 mmHg (35.0-45.0); PO2 ABG 67.1 mmHg (80.0-100.0); Reduced Hemoglobin 7.2 %THb (0-5.0); Site Drawn RIGHT BRACHIAL; Total Hemoglobin 12.3 g/dL (12.0-18.0); pH ABG 7.437 (7.350-7.450)
[2019-12-10 01:07] LABS: INR 1.6; Prothrombin Time 18.3 Seconds (11.1-14.7)
[2019-12-10 01:08] LABS: Partial Thromboplastin Time 35.8 SECONDS (22.3-36.8)
[2019-12-10 01:55] LABS: Alanine Aminotransferase 9 U/L (4-35); Albumin Level 3.7 g/dL (3.5-5.1); Alkaline Phosphatase 93 U/L (38-126); Anion Gap 7 mmol/L (8-16); Aspartate Amino Transferase 19 U/L (14-36); Bilirubin,Total 0.6 mg/dL (0.2-1.3); Blood Urea Nitrogen 13 mg/dL (7-17); Calcium 9.7 mg/dL (8.4-10.2); Carbon Dioxide 28 mmol/L (22-30); Chloride 106 mmol/L (98-107); Estimated CRCL calculation 118 ml/min; Estimated Glomerular Filt Rate > 60; Glucose 95 mg/dL (65-105); Potassium 3.8 mmol/L (3.4-5.0); Sodium 141 mmol/L (137-145)
[2019-12-10 02:02] LABS: NT Pro B Type Natriuretic Pept 1550 PG/ML (5-100)
[2019-12-10 02:11] VITALS: BP 146/91; PULSE 96; RESP 19; O2SAT 98
[2019-12-10 02:26] LABS: CRP 2.3 mg/dL (<1.0)
[2019-12-10 02:50] VITALS: BP 153/99; PULSE 70; RESP 19; O2SAT 100
[2019-12-10 03:34] VITALS: BP 155/89; PULSE 71; RESP 19; O2SAT 98
[2019-12-10] MEDS: FUROSEMIDE INJ 40 MG/4 ML VIAL IV PUSH (04:02)
[2019-12-10 04:03] VITALS: BP 153/84; PULSE 90; RESP 19; TEMP 36.8; O2SAT 98
== END 2019-12-10 04:03 | disposition home or self-care (01) ==
PROVIDERS: Emergency Provider General Practice; PCP Physician Assistant
DX: R60.0 Localized edema (principal); I10 Essential (primary) hypertension; Z79.01 Long term (current) use of anticoagulants; E53.8 Deficiency of other specified B group vitamins; Z86.711 Personal history of pulmonary embolism; Z87.11 Personal history of peptic ulcer disease; Z98.84 Bariatric surgery status; Z86.718 Personal history of other venous thrombosis and embolism; I45.10 Unspecified right bundle-branch block; R94.31 Abnormal electrocardiogram [ECG] [EKG]
CPT/HCPCS: 36415; 36600; 71275; 80053; 82375; 82805; 83050; 83880; 85025; 85610; 85730; 86140; 93005; 96374; 99284; J1940; Q9967

== ENCOUNTER 2020-04-06 07:25 | Inpatient (IN) | payer BC, SELFPAY ==
[2020-04-06] VITALS (12 sets, daily range): BP systolic 112–154; BP diastolic 64–81; PULSE 108–137; RESP 18–34; TEMP 36.4–39.5; O2SAT 93–100; BMI 47.2
--- NOTE | ~2020-04-06 | XR_ITS ---
EXAMINATION: XR chest 1V portable EXAM DATE: 04/06/2020 08:16 INDICATION: fever, dyspnea; SOB onset x 1 day; denies lung hx . TECHNIQUE: Portable AP frontal chest x-ray was obtained. Comparison is made to prior examination from 08/18/2019. FINDINGS: The lungs are clear. There are no pleural effusions. Cardiac silhouette is prominent but magnified on this AP technique. There is no pneumothorax suspected. The bones and soft tissues are unremarkable. IMPRESSION: No acute cardiopulmonary findings. Reviewed, dictated and finalized at location B. [employer]TER
--- NOTE | 2020-04-06 07:30 | ED.FEVER ---
HPI - Fever General Chief Complaint: Fever Stated Complaint: Fever, SOB Time Seen by Provider: 04/06/20 07:30 Source: patient Mode of arrival: ambulatory Limitations: no limitations History of Present Illness HPI Narrative: Patient is a 49-year-old female with a history of hypertension, chronic lymphedema who presents for evaluation of fever, shortness of breath. Patient states she has been feeling unwell over the past 3 days, worsening over the past 24 hours with fever at home 103 Fahrenheit. She reports associated dry cough and shortness of breath. She reports loss of sense of taste and smell. She reports myalgias. She denies chest pain. She has been compliant with her medications. She states that she mostly isolates at home, but does have a daughter and grandchild that are out and about, she is unsure of their contacts. Patient denies nausea, vomiting or diarrhea. No abdominal pain, dysuria or hematuria. Related Data Home Medications Medication Instructions Recorded Confirmed famotidine 20 mg PO BID 08/12/19 02/02/20 potassium chloride 10 meq PO DAILY 08/12/19 02/02/20 zolpidem 5 mg PO HS 08/12/19 02/02/20 metoprolol succinate 25 mg PO DAILY 10/13/19 02/02/20 ferrous sulfate 325 mg PO DAILY 12/02/19 02/02/20 furosemide 40 mg PO DAILY 12/02/19 02/02/20 omeprazole 40 mg PO DAILY 12/02/19 02/02/20 amlodipine 5 mg PO DAILY 02/02/20 02/02/20 Allergies Allergy/AdvReac Type Severity Reaction Status Date / Time No Known Allergies Allergy Verified 02/02/20 10:54 Review of Systems Review of Systems: Narrative: CONSTITUTIONAL: Reports fever and chills ENT: Reports mild rhinorrhea and congestion CARDIOVASCULAR: Denies chest pain, palpitations, or edema. RESPIRATORY: Reports dry cough and shortness of breath GASTROINTESTINAL: Denies abdominal pain, nausea, vomiting, or diarrhea. GENITOURINARY: Denies dysuria or hematuria. SKIN: Denies rash or itching. MUSCULOSKELETAL: Denies back pain, joint pain, reports mild myalgias NEUROLOGIC: Denies headache, numbness, or weakness. [facility] Past Medical History Medical History (Updated 04/06/20 @ 10:08 by Tiarra Atkinson MD) B12 deficiency History of deep vein thrombosis (DVT) of lower extremity Hx pulmonary embolism Hypertension been treated for 15 years Hypothyroidism (acquired) Lymph edema Perimenopausal menorrhagia Postphlebitic syndrome Presence of IVC filter 11/2018 at [facility] (peptic ulcer disease) Surgical History Surgical History Delivery by section x 3 History of Adrienne-en-Y gastric bypass 2009 S/P tubal ligation Family History Family History Mother Hypertension Father Hypertension Social History Social History Social History: . Resides with her daughter. 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 Gender identity (if verbalized by the patient): Female Spiritual care concerns: No Agree to blood products: Yes Exam Narrative: Exam Narrative: GENERAL: Awake, alert, conversant HEAD: Normocephalic, atraumatic. EYES: PERRLA and EOMI. ENT: Nares clear, no rhinorrhea or epistaxis. Mucous membranes moist. NECK: Supple. CHEST: No respiratory distress, breathing even and non labored HEART: Tachycardic rate, sinus rhythm ABDOMEN:Non distended, non tender EXTREMITIES: Normal range of motion. Chronic lymphedema. SKIN: Warm, dry, no rash. NEURO:No focal deficits. Alert and oriented x3 Course Vital Signs Vital signs: Vital Signs Temperature 36.4 C L 04/06/20 07:28 Pulse Rate 137 H 04/06/20 07:28 Respiratory Rate 34 H 03/10
--- NOTE | 2020-04-06 07:31 | ECG_ITS ---
Measurements Intervals Fertile Rate: 142 P: 8 NJ: 143 QRS: -14 QRSD: 80 T: 14 QT: 282 QTc: 434 Interpretive Statements SINUS TACHYCARDIA ATRIAL PREMATURE COMPLEX BORDERLINE R WAVE PROGRESSION, ANTERIOR LEADS BORDERLINE T WAVE ABNORMALITY- INFERIOR LEADS BASELINE ARTIFACT- I, II, AVR, V6 ABNORMAL ECG Electronically Signed On 04-06-2020 14:17:28 BILINGUAL SALES ASSISTANT by Byron Quinones D.O.
[2020-04-06] MEDS: SODIUM CHLORIDE 0.9% IV 1,000 ML 999 ML IV CONT (08:02)
[2020-04-06 08:16] LABS: Basophils Percent Auto 0.2 % (0.2-1.2); Eosinophils Percent Auto 0.2 % (0-4.4); Hematocrit 40.7 % (37.0-47.0); Hemoglobin 13.4 g/dL (12.0-15.0); Immature Granulocyte Absolute 0.11 K/mm3 (0.00-0.031); Immature Granulocyte Percent A 0.8 % (0-0.5); Lymphocytes Absolute Auto 0.31 K/mm3 (0.9-3.2); Lymphocytes Percent Auto 2.3 % (18.3-44.2); Mean Corpuscular HGB Conc 32.9 g/dl (32-36); Mean Corpuscular Hemoglobin 31.3 pg (26-34); Mean Corpuscular Volume 95.1 fl (80-100); Monocytes Absolute Auto 0.5 K/mm3 (0.1-0.6); Monocytes Percent Auto 3.5 % (2.6-8.5); Neutrophils Absolute Auto 12.3 K/mm3 (1.3-6.7); Platelet Count Result 153 k/mm3 (150-375); Red Blood Count 4.28 M/mm3 (4.2-5.4); White Blood Count 13.3 K/mm3 (4.5-10.0)
[2020-04-06 08:23] LABS: Prothrombin Time 13.3 Seconds (11.1-14.7)
[2020-04-06 08:24] LABS: Partial Thromboplastin Time 28.7 SECONDS (22.3-36.8)
[2020-04-06 08:27] LABS: Lactic Acid Reflex 2.5 mmol/L (0.7-2.1)
[2020-04-06 08:51] LABS: Add Urine Microscopic? YES; Appearance Urine Cloudy (Clear); Bacteria Urine Trace /hpf; Bilirubin Urine Negative (Negative); Blood Urine 2+ (Negative); Color Urine Yellow (Yellow); Glucose Urine UA Negative (Negative); Ketones Urine Negative (Negative); Leukocyte Esterase Ur 1+ LEU/UL (Negative); Mucus Urine Rare /lpf; Nitrate Urine Negative (Negative); Protein Urine 1+ mg/dL (Negative); Specific Grav Ur 1.015 (1.001-1.035); Squamous Epithelial Cell Urine Many /hpf (Few); WBC Urine 16-20 /hpf
[2020-04-06 09:21] LABS: Alanine Aminotransferase 25 U/L (4-35); Albumin Level 3.8 g/dL (3.5-5.1); Alkaline Phosphatase 112 U/L (38-126); Anion Gap 6 mmol/L (8-16); Aspartate Amino Transferase 52 U/L (14-36); Bilirubin,Total 0.9 mg/dL (0.2-1.3); Blood Urea Nitrogen 11 mg/dL (7-17); CRP 2.6 mg/dL (<1.0); Calcium 9.6 mg/dL (8.4-10.2); Carbon Dioxide 29 mmol/L (22-30); Chloride 101 mmol/L (98-107); Estimated CRCL calculation 107 ml/min; Estimated Glomerular Filt Rate > 60; Glucose 114 mg/dL (65-105); Sodium 136 mmol/L (137-145)
[2020-04-06 09:30] LABS: Troponin I 0.031 ng/mL (0.000-0.034)
[2020-04-06 10:09] LABS: Base Excess ABG -1.3 mEq/l (+/-2.0); Carboxyhemoglobin 0.8 % THb (0-2.0); Fractional Inspired Oxygen 21 %; HCO3 ABG 22.2 mEq/l (22.0-26.0); Methemoglobin ABG 0.3 %THb (0-1.5); Oxygen Content ABG 16.7 %vol (16.0-22.0); Oxygen Saturation ABG 94.2 % (95.0-100.0); Oxyhemoglobin 92.7 % THb (90.0-100.0); PCO2 ABG 33.6 mmHg (35.0-45.0); PO2 ABG 67.5 mmHg (80.0-100.0); PO2 FiO2 Ratio Arterial Blood 3.21 %; Reduced Hemoglobin 6.2 %THb (0-5.0); Total Hemoglobin 12.8 g/dL (12.0-18.0); pH ABG 7.438 (7.350-7.450)
[2020-04-06 10:12] LABS: Device ROOM AIR; Site Drawn RIGHT BRACHIAL
[2020-04-06 11:12] LABS: Reflex Lactic Acid Yes or No Add Lactic
--- NOTE | 2020-04-06 11:29 | PC.NURSE ---
This patient, Tiarra Addison, was admitted to [facility] Surg Room 330-01. Patient/family oriented to hospital policies and general routines including ID bracelet, bed and alarms, visiting hours, pain management, procedures, bathroom and other care routines, personal items, smoking policy, room service/diet, and visiting hours. Information on how to activate the Rapid Response Team has been discussed. Patient/Family are encouraged to report perceived risks to care and to ask questions if they do not understand what they are told or what they should do.
[2020-04-06 11:50] LABS: Lactic Acid 1.2 mmol/L (0.7-2.1)
--- NOTE | 2020-04-06 14:30 | PM.IMHP ---
H&P: HPI History of Present Illness Date/Time: 04/06/20 14:30 Chief Complaint: Fever, shortness of breath, body aches. Narrative: Tiarra Addison is a 49-year-old female with history of recurrent DVT and pulmonary embolism them on Xarelto, hypertension, anemia, GERD with history of GI bleed secondary to peptic ulcers, and chronic right lower extremity lymphedema who presented to the emergency department earlier today via private vehicle from home with complaints of fever, body aches, and shortness breath. Last evening she developed a pretty significant, diffuse headache followed shortly thereafter by chills, diffuse body aches, and subjective fever. She felt short of breath when she had the chills but that has since resolved. The emergency department physician documented reports of a dry cough as well as decrease in sense of taste and smell however the patient denies that to me. With further questioning, she does mention chronic right lower extremity pain due to her massive lymphedema however it has been worse over the past couple of days. She tries to stay at home and isolate however she lives with her daughter and her grandson lives next door and they are out about in the community. Grandson had COVID in September but she has no recent known exposure to COVID-19. She denies sinus congestion, rhinorrhea, otalgia, odynophagia, chest pain, pleuritic pain, palpitations, nausea, vomiting, diarrhea, and dysuria. Review of Systems Review of Systems: Narrative: Twelve systems were reviewed with pertinent positives and negatives as per HPI. Except as documented, all other systems were reviewed and are negative. [facility] Past Medical History Medical History (Updated 04/06/20 @ 23:46 by Roxie De Jesus PA-C) Anemia History of several blood transfusions. B12 deficiency Chronic acquired lymphedema Chronic anticoagulation Due to history of recurrent DVT and pulmonary embolism. IVC filter in place. Gastroesophageal reflux GI bleed (~04/2019) Secondary to peptic ulcers. Glaucoma History of cellulitis History of deep venous thrombosis Hypertension Hypothyroidism No longer on medication. Osteoarthritis Peptic ulcer disease Pulmonary embolism (~04/2018) Right leg DVT Extensive right lower extremity DVT on ultrasound dated 08/26/2019. Surgical History Surgical History (Updated 04/06/20 @ 15:30 by Roxie De Jesus PA-C) History of 3 sections History of dilation and curettage History of endometrial ablation History of Adrienne-en-Y gastric bypass (~2009) History of tubal ligation Presence of IVC filter (~11/2018) Performed at [facility]. Family History Family History Mother Hypertension Father Hypertension Social History Social History (Updated 04/06/20 @ 23:39 by Roxie De Jesus PA-C) Social History: The patient is and lives with her daughter. I believe her grandson lives next door. 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 Lifelong nonsmoker. She drinks perhaps 2 alcoholic beverages a week. No illicit substance use. She designates her son, Jose Willis, as her surrogate decision maker and she wishes to be a full code. Spiritual care concerns: No Agree to blood products: Yes Meds Home Medications and Allergies Home Medications Medication Instructions Recorded Confirmed Type famotidine 20 mg PO BID 08/12/19 04/06/20 History potassium chloride 10 meq PO DAILY 08/12/19 04/06/20 History zolpidem 5 mg PO HS 08/12/19 04/06/20 History cyanocobalamin (vitamin B-12) 100 mcg IM MONTHLY #5 each 08/21/19 04/06/20 Rx folic acid 1 mg PO DAILY #30 tablet 08/21/19 04/06/20 Rx hydrocodone-acetaminophen 1 tablet PO Q4H PRN #20 tablet 08/21/19 04/06/20 Rx rivaroxaban [Xarelto] 20 mg PO QPM #30 tablet 08/21/19 04/06/20 Rx metoprolol succinate 25 mg PO DAILY 10/13/19 04/06/20 History ferrous sulfate 325 mg PO DAILY
[2020-04-06] MEDS: HYDROcodone/acetaminophen (*CRX) 7.5-325 MG TABLET 1 TAB PO ×2 (16:40→21:13)
[2020-04-06 16:43] LABS: Lactate Dehydrogenase 805 U/L (313-618)
[2020-04-06 18:01] LABS: SARS-CoV-2 RNA PCR Negative
[2020-04-06] MEDS: RIVAROXABAN 20 MG TABLET PO (18:11)
[2020-04-06] MEDS: FAMOTIDINE 20 MG TABLET PO (22:40)
[2020-04-06] MEDS: ACETAMINOPHEN 325 MG TABLET 650 MG PO (23:23)
[2020-04-07] MEDS: HYDROcodone/acetaminophen (*CRX) 7.5-325 MG TABLET 1 TAB PO ×3 (05:10→19:08)
[2020-04-07 06:00] VITALS: BP 114/65; PULSE 102; RESP 20; TEMP 37.7; O2SAT 97
[2020-04-07 07:01] LABS: Hematocrit 33.9 % (37.0-47.0); Hemoglobin 11.1 g/dL (12.0-15.0); Mean Corpuscular HGB Conc 32.7 g/dl (32-36); Mean Corpuscular Hemoglobin 30.7 pg (26-34); Mean Corpuscular Volume 93.9 fl (80-100); Mean Platelet Volume 8.9 fl (7.4-10.4); Platelet Count Result 118 k/mm3 (150-375); Red Blood Count 3.61 M/mm3 (4.2-5.4); Red Cell Distribution Width 13.7 % (11.5-14.5); White Blood Count 13.9 K/mm3 (4.5-10.0)
[2020-04-07 07:27] LABS: Alanine Aminotransferase 28 U/L (4-35); Albumin Level 3.1 g/dL (3.5-5.1); Alkaline Phosphatase 76 U/L (38-126); Anion Gap 6 mmol/L (8-16); Aspartate Amino Transferase 71 U/L (14-36); Bilirubin,Total 0.7 mg/dL (0.2-1.3); Blood Urea Nitrogen 13 mg/dL (7-17); Calcium 8.9 mg/dL (8.4-10.2); Carbon Dioxide 26 mmol/L (22-30); Chloride 100 mmol/L (98-107); Estimated CRCL calculation 120 ml/min; Estimated Glomerular Filt Rate > 60; Glucose 96 mg/dL (65-105); Potassium 3.7 mmol/L (3.4-5.0); Sodium 132 mmol/L (137-145)
[2020-04-07] MEDS: FAMOTIDINE 20 MG TABLET PO ×2 (08:45→20:39)
[2020-04-07] MEDS: FUROSEMIDE 40 MG TABLET PO (08:45)
[2020-04-07] MEDS: FERROUS SULFATE 324 MG TABLET PO (08:45)
[2020-04-07] MEDS: FOLIC ACID 1 MG TABLET PO (08:45)
[2020-04-07] MEDS: POTASSIUM CHLORIDE 10 MEQ TABLET.ER PO (08:45)
[2020-04-07] MEDS: PANTOPRAZOLE 40 MG TABLET PO (08:45)
[2020-04-07 08:46] VITALS: PULSE 98
[2020-04-07] MEDS: METOPROLOL SUCCINATE EXT REL 25 MG TABCR PO (08:46)
[2020-04-07] MEDS: amLODIPine BESYLATE 5 MG TABLET PO (08:46)
[2020-04-07] MEDS: BETAMETHASONE/CLOTRIMAZOLE CR 15 GM TUBE 1 APPLIC TOPICAL ×2 (10:37→20:39)
[2020-04-07 14:00] VITALS: BP 117/67; PULSE 86; RESP 18; TEMP 37.2; O2SAT 100
--- NOTE | 2020-04-07 15:22 | PM.IMPN ---
Progress Note: A&P Assessment and Plan (1) Sepsis: Qualifiers: Sepsis acute organ dysfunction status: without acute organ dysfunction Sepsis type: sepsis due to unspecified organism Qualified Code(s): A41.9 - Sepsis, unspecified organism Code(s): A41.9 - Sepsis, unspecified organism Status: Acute Assessment and Plan: [place] [id number] pt has history of chronic lymphoedema (2) Cellulitis of right lower extremity: Code(s): L03.115 - Cellulitis of right lower limb Status: Acute Assessment and Plan: Continue IV cefazolin and vancomycin (3) Suspected COVID-19 virus infection: Code(s): Z20.828 - Contact with and (suspected) exposure to other viral communicable diseases Status: Acute Assessment and Plan: Ruled out (4) Hypertension: Qualifiers: Hypertension type: essential hypertension Qualified Code(s): I10 - Essential (primary) hypertension Code(s): I10 - Essential (primary) hypertension Status: Chronic Assessment and Plan: Continue Bp medication Bp is stable presently (5) Anemia: Qualifiers: Anemia type: iron deficiency Iron deficiency anemia type: chronic blood loss Qualified Code(s): D50.0 - Iron deficiency anemia secondary to blood loss (chronic) Code(s): D64.9 - Anemia, unspecified Status: Acute Assessment and Plan: Hb is 11 continue to watch (6) Gastroesophageal reflux: Code(s): K21.9 - Gastro-esophageal reflux disease without esophagitis Status: Acute Assessment and Plan: Pt is on oral protonix (7) Chronic anticoagulation: 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 COVID is negative. fever likely secondary to cellulitis of right leg Review of Systems Review of Systems: All systems reviewed & are unremarkable except as noted in HPI and below Exam Narrative: Exam Narrative: General: Well-developed female, pleasant talkative HEENT: Normocephalic Neck: Supple. Respiratory: Lungs are clear to auscultation bilaterally. Cardiovascular: Regular rate and rhythm with S1-S2. No murmur, rub, or gallop. Gastrointestinal: Abdomen is soft, nontender, and nondistended with positive bowel sounds. Skin: Warm and dry. No rash or lesions on limited exam. Extremities: No cyanosis or clubbing. Massive lymphedema of the right leg with erythema and edema of the right medial calf. The area is warm and tender to palpation. Neurological: Alert. Cranial nerves 2-12 are grossly intact. No gross focal deficits to casual conversation. Psychiatric: Pleasant and cooperative with normal mood and affect. Judgment and insight intact. Objective Data Vital Signs Vital Signs: Vital Signs - 24 hr 04/06/20 16:00 04/06/20 20:00 04/07/20 06:00 Temperature 37.7 C H 37.8 C H 37.7 C H Pulse Rate 113 H 108 H 102 H Respiratory Rate 18 20 20 Blood Pressure 154/81 H 143/77 H 114/65 Pulse Oximetry 100 98 97 04/07/20 08:46 04/07/20 14:00 Temperature 37.2 C Pulse Rate 98 86 Respiratory Rate 18 Blood Pressure 117/67 Pulse Oximetry 100 Intake/Output Intake/Output: Intake & Output 04/04/20 04/05/20 04/06/20 04/07/20 23:59 23:59 23:59 23:59 Intake Total 2315 890 Output Total 600 Balance 2315 290 Meds/Results Medications: Active Medications Generic Name Dose Route Start Last Admin Trade Name Freq PRN Reason Stop Do
[2020-04-07] MEDS: RIVAROXABAN 20 MG TABLET PO (17:15)
[2020-04-07 22:00] VITALS: BP 120/66; PULSE 81; RESP 20; TEMP 36.8; O2SAT 97
[2020-04-07] MEDS: ZOLPIDEM TARTRATE (*CRX) 5 MG TABLET 10 MG PO (22:35)
[2020-04-08] MEDS: HYDROcodone/acetaminophen (*CRX) 7.5-325 MG TABLET 1 TAB PO ×2 (05:55→10:58)
[2020-04-08 06:00] VITALS: BP 130/76; PULSE 80; RESP 20; TEMP 36.9; O2SAT 100
[2020-04-08 09:27] LABS: Hematocrit 38.9 % (37.0-47.0); Hemoglobin 12.2 g/dL (12.0-15.0); Mean Corpuscular HGB Conc 31.4 g/dl (32-36); Mean Corpuscular Hemoglobin 30.8 pg (26-34); Mean Corpuscular Volume 98.2 fl (80-100); Platelet Count Result 144 k/mm3 (150-375); Red Blood Count 3.96 M/mm3 (4.2-5.4); White Blood Count 10.6 K/mm3 (4.5-10.0)
[2020-04-08 09:28] VITALS: PULSE 68
[2020-04-08] MEDS: FAMOTIDINE 20 MG TABLET PO (09:28)
[2020-04-08] MEDS: amLODIPine BESYLATE 5 MG TABLET PO (09:28)
[2020-04-08] MEDS: FERROUS SULFATE 324 MG TABLET PO (09:28)
[2020-04-08] MEDS: FUROSEMIDE 40 MG TABLET PO (09:28)
[2020-04-08] MEDS: METOPROLOL SUCCINATE EXT REL 25 MG TABCR PO (09:28)
[2020-04-08] MEDS: BETAMETHASONE/CLOTRIMAZOLE CR 15 GM TUBE 1 APPLIC TOPICAL (09:28)
[2020-04-08] MEDS: FOLIC ACID 1 MG TABLET PO (09:28)
[2020-04-08] MEDS: POTASSIUM CHLORIDE 10 MEQ TABLET.ER PO (09:29)
[2020-04-08] MEDS: PANTOPRAZOLE 40 MG TABLET PO (09:29)
[2020-04-08 09:39] LABS: Anion Gap 5 mmol/L (8-16); Blood Urea Nitrogen 13 mg/dL (7-17); Calcium 9.4 mg/dL (8.4-10.2); Carbon Dioxide 28 mmol/L (22-30); Chloride 102 mmol/L (98-107); Estimated CRCL calculation 120 ml/min; Estimated Glomerular Filt Rate > 60; Glucose 112 mg/dL (65-105); Potassium 3.7 mmol/L (3.4-5.0); Sodium 135 mmol/L (137-145)
[2020-04-08 10:09] LABS: Vancomycin Trough 22.1 ug/mL (10.0-20.0)
--- NOTE | 2020-04-08 13:12 | PM.DS ---
DS: Admitting Diagnosis Admitting Diagnosis Admitting Diagnosis: FEVER, SOB and body aches DS: Discharge Diagnosis Discharge Diagnosis (1) Sepsis: Qualifiers: Sepsis acute organ dysfunction status: without acute organ dysfunction Sepsis type: sepsis due to unspecified organism Qualified Code(s): A41.9 - Sepsis, unspecified organism Code(s): A41.9 - Sepsis, unspecified organism Status: Acute Assessment and Plan: [place] [address] pt has history of chronic lymphoedema (2) Cellulitis of right lower extremity: Code(s): L03.115 - Cellulitis of right lower limb Status: Acute Assessment and Plan: Continue IV cefazolin and vancomycin in the hospital transitioned to oral keflex on discharge. BC to go to PCP. (3) Suspected COVID-19 virus infection: Code(s): Z20.828 - Contact with and (suspected) exposure to other viral communicable diseases Status: Acute Assessment and Plan: Ruled out (4) Hypertension: Qualifiers: Hypertension type: essential hypertension Qualified Code(s): I10 - Essential (primary) hypertension Code(s): I10 - Essential (primary) hypertension Status: Chronic Assessment and Plan: Continue Bp medication Bp is stable presently (5) Anemia: Qualifiers: Anemia type: iron deficiency Iron deficiency anemia type: chronic blood loss Qualified Code(s): D50.0 - Iron deficiency anemia secondary to blood loss (chronic) Code(s): D64.9 - Anemia, unspecified Status: Acute Assessment and Plan: Hb is 11 continue to watch (6) Gastroesophageal reflux: Code(s): K21.9 - Gastro-esophageal reflux disease without esophagitis Status: Acute Assessment and Plan: Pt is on oral protonix (7) Chronic anticoagulation: Code(s): 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 COVID is negative. fever likely secondary to cellulitis of right leg. PT treated with iv abx transitioned to oral and discharged, PCP to follow her BC. Time Spent with Patient Time attestation: Total time spent providing and/or coordinating discharge services:40 minutes on day of dischrage Exam Narrative: Exam Narrative: General: Well-developed female, pleasant talkative HEENT: Normocephalic Neck: Supple. Respiratory: Lungs are clear to auscultation bilaterally. Cardiovascular: Regular rate and rhythm with S1-S2. No murmur, rub, or gallop. Gastrointestinal: Abdomen is soft, nontender, and nondistended with positive bowel sounds. Skin: Warm and dry. No rash or lesions on limited exam. Extremities: No cyanosis or clubbing. Massive lymphedema of the right leg with erythema and edema of the right medial calf. The area is warm and tender to palpation. Neurological: Alert. Cranial nerves 2-12 are grossly intact. No gross focal deficits to casual conversation. Psychiatric: Pleasant and cooperative with normal mood and affect. Judgment and insight intact. DS: Data Data Completed and Pending Labs on day of discharge: Labs from last 24 hours 04/08/20 04/08/20 04/08/20 09:21 09:21 09:21 WBC 10.6 H RBC 3.96 L Hgb 12.2 Hct 38.9 MCV 98.2 MCH 30.8 MCHC 31.4 L RDW 14.0 Plt Count 144 L MPV 9.0 Sodium 135 L Potassium 3.7 Chloride 102 Carbon Dioxide 28 Anion Gap 5 L BUN 13 Creatinine 0.70 Estim Creat Clear Calc 120 Estimated GFR > 60 Glucose
== END 2020-04-08 14:13 | disposition home or self-care (01) | DRG 872 ==
LOC: ANHED 10:04 → ANH3MEDSUR 10:21
PROVIDERS: Physician Assistant; Admitting Provider Family Medicine; Emergency Provider Emergency Medicine; PCP Physician Assistant; Visit Provider Family Medicine
DX: A41.9 Sepsis, unspecified organism (principal); L03.115 Cellulitis of right lower limb; I89.0 Lymphedema, not elsewhere classified; Z20.822 Contact with and (suspected) exposure to COVID-19; I10 Essential (primary) hypertension; D50.0 Iron deficiency anemia secondary to blood loss (chronic); K21.9 Gastro-esophageal reflux disease without esophagitis; H40.9 Unspecified glaucoma; M19.90 Unspecified osteoarthritis, unspecified site; Z79.01 Long term (current) use of anticoagulants; Z79.899 Other long term (current) drug therapy; Z86.711 Personal history of pulmonary embolism; Z86.718 Personal history of other venous thrombosis and embolism; Z87.11 Personal history of peptic ulcer disease; Z95.828 Presence of other vascular implants and grafts
CPT/HCPCS: 36415; 36600; 71045; 80048; 80053; 80202; 81001; 82375; 82728; 82805; 83050; 83605; 83615; 84484; 85025; 85027; 85610; 85730; 86140; 87040; 87086; 87635; 93005; 96365; 96366; 96367; 96375; 99285; A9270; C9803; G0378; J0131; J0690; J0696; J3370; J7030; U0003

== ENCOUNTER 2020-08-16 01:30 | Emergency (ER) | payer MEDICARE, SELFPAY ==
--- NOTE | ~2020-08-16 | CT_ITS ---
EXAMINATION: CT abdomen pelvis wo con DATE: 08/16/2020 03:20 INDICATION: Abdominal pain. Rectal bleeding. TECHNIQUE: Computed tomography (CT) of the abdomen and pelvis was performed without intravenous contr ast. Automated exposure control and iterative reconstruction technique were employed. The dose-length product was 1638.62 mGy-cm. COMPARISON: None. FINDINGS: The visualized portions of the lung bases demonstrate mild atelectasis. A calcified left lucero ng nodule and calcified left hilar lymph nodes are consistent with old granulomatous disease. No pleu ral effusion. There are surgical changes of the stomach. The heart size is normal. No pericardial eff usion. There are coronary artery calcifications. The liver, gallbladder, and pancreas are normal. Domenico cifications in the spleen are consistent with old granulomatous disease. The adrenal glands are antony l. The kidneys are normal. There is a filter in the infrarenal inferior vena cava. There are bilatera l tubal ligation clips. There are no dilated loops of bowel. The appendix is normal. There are no pat hologically enlarged lymph nodes. There is no free intraperitoneal fluid. There is severe lower lumba r spondylosis. IMPRESSION: 1. No etiology for the patient's symptoms. Reviewed, dictated and finalized at location B.
--- NOTE | 2020-08-16 01:35 | ED.GIBLEED ---
HPI - GI Bleed General Chief complaint: GI Bleed Stated complaint: Blood in stool Time Seen by Provider: 08/16/20 01:35 Source: patient Mode of arrival: ambulatory Limitations: no limitations History of Present Illness HPI Narrative: Patient is a 49-year-old female with a history of acid reflux, hypertension, recurrent DVT and PE on Xarelto who presents for evaluation of bright red blood per rectum. Patient states she has noticed some bright red blood per rectum with bowel movements over the past 4 to 5 days. She denies associated lightheadedness, dizziness or syncope. She reports she is having some straining with bowel movements. She does have a history of anemia and in the past has required blood transfusions. In the past she has been on iron but is not currently taking that medication. She does not remember the name of the GI doctor that she follows with, states has been quite sometime since he has seen him. She also reports intermittent epigastric abdominal pain over the past week but denies any current abdominal pain. No nausea or vomiting. No dark or tarry stool. No abdominal distention or diarrhea. No fever or chills. Of note, patient states that she has been depressed lately due to the pandemic, illness in her family members, trouble with one of her children. She states this is caused her to drink wine more heavily than normal, throughout the day she will consume over a liter of wine. She was able to stop drinking alcohol 4 days ago. She denies any tremulousness. No vomiting. No history of seizures or alcohol withdrawal. She denies any homicidal or suicidal ideation. She states that she has good support in some of her family. Related Data Home Medications Medication Instructions Recorded Confirmed famotidine 20 mg PO BID 08/12/19 04/06/20 potassium chloride 10 meq PO DAILY 08/12/19 04/06/20 zolpidem 10 mg PO HS 08/12/19 04/07/20 metoprolol succinate 25 mg PO DAILY 10/13/19 04/06/20 ferrous sulfate 325 mg PO DAILY 12/02/19 04/06/20 furosemide 40 mg PO DAILY 12/02/19 04/06/20 omeprazole 40 mg PO DAILY 12/02/19 04/06/20 amlodipine 5 mg PO DAILY 02/02/20 04/06/20 Allergies Allergy/AdvReac Type Severity Reaction Status Date / Time No Known Allergies Allergy Verified 02/02/20 10:54 Review of Systems Review of Systems: Narrative: CONSTITUTIONAL: Denies fever, chills, or sweats. EYES: Denies visual changes, redness, or discharge. ENT: Denies rhinorrhea, congestion, sore throat, or otalgia. CARDIOVASCULAR: Denies chest pain, palpitations, or edema. RESPIRATORY: Denies cough or dyspnea. GASTROINTESTINAL: Denies current abdominal pain, nausea, vomiting, or diarrhea. Reports bright red blood per rectum. GENITOURINARY: Denies dysuria or hematuria. SKIN: Denies rash or itching. MUSCULOSKELETAL: Denies back pain, joint pain, or myalgia. NEUROLOGIC: Denies headache, numbness, or weakness. PSYCHIATRIC: Reports mild depression, states she has been drinking alcohol 1 L of wine nightly but discontinued this 5 days ago. She denies homicidal or suicidal ideation. [facility] Past Medical History Medical History Anemia History of several blood transfusions. B12 deficiency Chronic acquired lymphedema Chronic anticoagulation Due to history of recurrent DVT and pulmonary embolism. IVC filter in place. Gastroesophageal reflux GI bleed (~04/2019) Secondary to peptic ulcers. Glaucoma History of cellulitis History of deep venous thrombosis Hypertension Hypothyroidism No longer on medication. Osteoarthritis Peptic ulcer disease Pulmonary embolism (~04/2018) Right leg DVT Extensive right lower extremity DVT on ultrasound dated 08/26/2019. Surgical History Surgical History History of 3 sections History of dilation and curettage History of endometrial ablation History of Adrienne-en-Y gastric bypass (~2009) Histor
[2020-08-16 01:42] VITALS: PULSE 67; RESP 20; O2SAT 97
[2020-08-16 01:52] VITALS: BP 169/96; PULSE 72
--- NOTE | 2020-08-16 01:59 | ECG_ITS ---
Measurements Intervals [place] Rate: 60 P: 87 NM: 196 QRS: -9 QRSD: 96 T: -3 QT: 420 QTc: 420 Interpretive Statements SINUS RHYTHM INCOMPLETE RIGHT BUNDLE BRANCH BLOCK LOW QRS VOLTAGE IN PRECORDIAL LEADS VOLTAGE CRITERIA FOR LVH MINIMAL Q WAVES- HIGH LATERAL LEADS BASELINE ARTIFACT- I, II, III, AVR, AVL, AVF, V2 BORDERLINE ECG Electronically Signed On 08-16-2020 7:05:21 CDT by Byron Quinones D.O.
[2020-08-16 02:00] VITALS: BP 169/96; PULSE 64; RESP 20; O2SAT 95
[2020-08-16 02:23] LABS: Basophils Percent Auto 0.2 % (0.2-1.2); Eosinophils Absolute Auto 0.2 K/mm3 (0-0.3); Hemoglobin 12.8 g/dL (12.0-15.0); Immature Granulocyte Absolute 0.02 K/mm3 (0.00-0.031); Immature Granulocyte Percent A 0.2 % (0-0.5); Lymphocytes Absolute Auto 1.32 K/mm3 (0.9-3.2); Lymphocytes Percent Auto 15.5 % (18.3-44.2); Mean Corpuscular HGB Conc 31.2 g/dl (32-36); Mean Corpuscular Hemoglobin 30.4 pg (26-34); Mean Corpuscular Volume 97.4 fl (80-100); Mean Platelet Volume 9.5 fl (7.4-10.4); Monocytes Absolute Auto 0.6 K/mm3 (0.1-0.6); Monocytes Percent Auto 7.5 % (2.6-8.5); Neutrophils Absolute Auto 6.4 K/mm3 (1.3-6.7); Neutrophils Percent Auto 74.6 % (45.5-73.1); Platelet Count Result 171 k/mm3 (150-375); Red Blood Count 4.21 M/mm3 (4.2-5.4); Red Cell Distribution Width 15.7 % (11.5-14.5); White Blood Count 8.5 K/mm3 (4.5-10.0)
[2020-08-16 02:32] LABS: Prothrombin Time 13.8 Seconds (11.1-14.7)
[2020-08-16 02:33] LABS: Partial Thromboplastin Time 25.6 SECONDS (22.3-36.8)
[2020-08-16 02:54] LABS: Alanine Aminotransferase 14 U/L (4-35); Albumin Level 4.3 g/dL (3.5-5.1); Alkaline Phosphatase 93 U/L (38-126); Anion Gap 6 mmol/L (8-16); Aspartate Amino Transferase 27 U/L (14-36); Bilirubin,Total 0.8 mg/dL (0.2-1.3); Blood Urea Nitrogen 21 mg/dL (7-17); Calcium 9.9 mg/dL (8.4-10.2); Carbon Dioxide 26 mmol/L (22-30); Chloride 108 mmol/L (98-107); Estimated CRCL calculation 110 ml/min; Estimated Glomerular Filt Rate > 60; Glucose 90 mg/dL (65-105); Lipase 88 U/L (23-300); Potassium 3.7 mmol/L (3.4-5.0); Sodium 140 mmol/L (137-145)
[2020-08-16 04:23] VITALS: BP 160/90; PULSE 66; RESP 18; O2SAT 97
== END 2020-08-16 04:24 | disposition home or self-care (01) ==
PROVIDERS: Emergency Provider Emergency Medicine; PCP Nurse Practitioner Family
DX: K52.9 Noninfective gastroenteritis and colitis, unspecified (principal); D64.9 Anemia, unspecified; K21.9 Gastro-esophageal reflux disease without esophagitis; M19.90 Unspecified osteoarthritis, unspecified site
CPT/HCPCS: 36415; 74176; 80053; 83690; 85025; 85610; 85730; 86850; 86900; 86901; 93005; 99284

== ENCOUNTER 2023-10-02 12:34 | Observation (INO) | payer MEDICARE, SELFPAY ==
[2023-10-02] VITALS (11 sets, daily range): BP systolic 135–179; BP diastolic 68–112; PULSE 6–86; RESP 16–23; TEMP 36.4–37.2; O2SAT 99–100
--- NOTE | ~2023-10-02 | CT_ITS ---
CT abdomen pelvis w con Ordering provider: Christina Joyce PA-C History: 52 years Female with . bloody diarrhea, abd pain . Comparison: August 16, 2020 Technique: CT abdomen and pelvis with IV and without oral contrast. Automated exposure control and it erative reconstruction technique were employed. The dose-length product was 1604.17 mGy-cm. 100 mL Om nipaque 350 was given IV. Findings: VISUALIZED LOWER CHEST: Normal. Calcified subcarinal lymph nodes and left basal granuloma. UPPER ABDOMINAL ORGANS: Liver: Fat infiltration. Gallbladder: Normal. Spleen: Normal. Stomach/duodenum: Postoperative changes. Pancreas: Normal. Adrenals: Normal. Kidneys: Normal. PELVIC ORGANS: The bladder is underfilled with slightly thickened wall. BOWEL AND MESENTERY: Colon: No evidence of diverticulitis. No active bleeding seen in the colon. Normal appendix. Small Bowel: Normal. No obstruction. Postoperative changes seen in the small bowel in the upper abdom en. Peritoneum/mesentery: No free air or free fluid. No mesenteric lymphadenopathy. IVC filter is noted. Retroaortic left renal vein. RETROPERITONEUM: Mild atheromatous disease of the abdominal aorta. No retroperitoneal lymphadenopathy. MUSCULOSKELETAL: Superficial soft tissues: The superficial soft tissues are normal. Bones: Age appropriate degenerative changes of the spine. IMPRESSION: No evidence of active bleeding seen in the bowel. No evidence of appendicitis, diverticulitis or inte stinal obstruction. Fat infiltration of the liver. Reviewed, dictated and finalized at location A. IMPRESSION: No evidence of active bleeding seen in the bowel. No evidence of appendicitis, diverticulitis or intestinal obstruction. Fat infiltration of the liver.
--- NOTE | ~2023-10-02 | US_ITS ---
EXAMINATION: US abdomen limited DATE: 10/03/2023 09:54 INDICATION: Elevated liver function tests TECHNIQUE: Multiple grayscale and Doppler ultrasound images of the abdomen were obtained. COMPARISON: None FINDINGS: The pancreatic head and body are normal in appearance. The pancreatic tail is not visualized. The vi sualized proximal inferior vena cava is normal.. Liver has normal contour, with a smooth surface. The re is increased parenchymal echogenicity and coarsened echotexture consistent with diffuse hepatic st eatosis. No liver lesion identified. No intrahepatic biliary duct dilation suspected. Portal venous flow was seen in the hepatopetal, normal direction and has normal Doppler waveform. The gallbladder is normal in appearance. There is no cholelithiasis. The common bile duct measures 4 mm, which is no rmal. Sonographic Murdock sign was reported as negative by the life skills worker. IMPRESSION: 1. Diffuse hepatic steatosis. Otherwise normal right upper quadrant ultrasound. Reviewed, dictated and finalized at location B.
[2023-10-02 12:55] LABS: Basophils Percent Auto 0.5 % (0.2-1.2); Eosinophils Absolute Auto 0.1 K/mm3 (0-0.3); Eosinophils Percent Auto 1.9 % (0-4.4); Hematocrit 36.1 % (37.0-47.0); Hemoglobin 11.3 g/dL (12.0-15.0); Immature Granulocyte Absolute 0.02 K/mm3 (0.00-0.031); Immature Granulocyte Percent A 0.3 % (0-0.5); Immature Platelet Fraction Pct 2.8 % (0.9-11.2); Lymphocytes Absolute Auto 0.76 K/mm3 (0.9-3.2); Lymphocytes Percent Auto 12.2 % (18.3-44.2); Mean Corpuscular HGB Conc 31.3 g/dl (32-36); Mean Corpuscular Hemoglobin 30.6 pg (26-34); Mean Corpuscular Volume 97.8 fl (80-100); Mean Platelet Volume 11.8 fl (7.4-10.4); Monocytes Absolute Auto 0.6 K/mm3 (0.1-0.6); Monocytes Percent Auto 8.8 % (2.6-8.5); Neutrophils Absolute Auto 4.8 K/mm3 (1.3-6.7); Neutrophils Percent Auto 76.3 % (45.5-73.1); Platelet Count Result 76 k/mm3 (150-375); Red Blood Count 3.69 M/mm3 (4.2-5.4); Red Cell Distribution Width 18.4 % (11.5-14.5); White Blood Count 6.3 K/mm3 (4.5-10.0)
[2023-10-02 13:07] LABS: INR 1.3; Partial Thromboplastin Time 30.5 Seconds (22.3-36.8); Prothrombin Time 16.3 Seconds (11.1-14.7)
[2023-10-02 13:08] LABS: Alanine Aminotransferase 65 U/L (6-35); Albumin Level 4.2 g/dL (3.5-5.1); Alkaline Phosphatase 171 U/L (38-126); Anion Gap 11 mmol/L (4-12); Aspartate Amino Transferase 207 U/L (14-36); Bilirubin,Total 1.8 mg/dL (0.2-1.3); Blood Urea Nitrogen 10 mg/dL (7-17); Calcium 8.8 mg/dL (8.4-10.2); Carbon Dioxide 25 mmol/L (22-30); Chloride 107 mmol/L (98-107); Estimated CRCL calculation 107 ml/min; Estimated Glomerular Filt Rate > 60; Glucose 93 mg/dL (65-110); Potassium 4.2 mmol/L (3.4-5.0); Sodium 143 mmol/L (137-145)
[2023-10-02 13:16] LABS: Platelet Estimate Decreased (Adequate)
[2023-10-02 13:17] LABS: Large Platelets Present; Schistocytes None Seen
--- NOTE | 2023-10-02 15:15 | ED.GIBLEED ---
HPI - GI Bleed General Chief complaint: GI Bleed <ELIANA Huynh Last Filed: 10/02/23 17:09> Stated complaint: near syncope, rectal bleeding <ELIANA Huynh Last Filed: 10/02/23 17:09> Time Seen by Provider: 10/02/23 14:41 <ELIANA Huynh Last Filed: 10/02/23 17:09> Source: patient <ELIANA Huynh Last Filed: 10/02/23 17:09> Mode of arrival: ambulatory <ELIANA Huynh Last Filed: 10/02/23 17:09> Limitations: no limitations <ELIANA Huynh Last Filed: 10/02/23 17:09> History of Present Illness HPI Narrative: This is a 52 year old female that presents to the ER for GI bleeding. Ongoing since yesterday. Reports loose, bloody stools. Reports left sided abdominal pain. She is on anticoagulation due to history of blood clots. Reports she has been feeling lightheaded. Reports some nausea. Denies fevers, or vomiting. <ELIANA Huynh Last Filed: 10/02/23 17:09> Related Data Home medications: Home Medications Medication Instructions Recorded Confirmed famotidine 20 mg tablet 20 mg PO BID 08/12/19 04/06/20 potassium chloride 10 mEq 10 meq PO DAILY 08/12/19 04/06/20 tablet,extended release zolpidem 5 mg tablet 10 mg PO HS 08/12/19 04/07/20 metoprolol succinate 25 mg 25 mg PO DAILY 10/13/19 04/06/20 tablet,extended release 24 hr ferrous sulfate 325 mg (65 mg 325 mg PO DAILY 12/02/19 04/06/20 iron) tablet furosemide 40 mg tablet 40 mg PO DAILY 12/02/19 04/06/20 omeprazole 40 mg capsule,delayed 40 mg PO DAILY 12/02/19 04/06/20 release amlodipine 5 mg tablet 5 mg PO DAILY 02/02/20 04/06/20 lisinopril 10 mg tablet 10 mg PO DAILY 10/02/23 10/02/23 oxycodone 10 mg tablet 10 mg PO Q8H PRN Pain 10/02/23 10/02/23 rivaroxaban 20 mg tablet (Xarelto) 20 mg PO QHS 10/02/23 10/02/23 <Christina Joyce PA-C - Last Filed: 10/02/23 17:09> Allergies/Adverse reactions: Allergies Allergy/AdvReac Type Severity Reaction Status Date / Time No Known Allergies Allergy Verified 10/02/23 14:04 <Christina Joyce PA-C - Last Filed: 10/02/23 17:09> Review of Systems Review of Systems: CONSTITUTIONAL: Denies fever GASTROINTESTINAL: Reports abdominal pain, nausea, and diarrhea. <Christina Joyce PA-C - Last Filed: 10/02/23 17:09> All systems reviewed & are unremarkable except as noted in HPI and below <Christina Joyce PA-C - Last Filed: 10/02/23 17:09> [facility] Past Medical History Medical History: Medical History Anemia History of several blood transfusions. B12 deficiency Chronic acquired lymphedema Chronic anticoagulation Due to history of recurrent DVT and pulmonary embolism. IVC filter in place. Gastroesophageal reflux GI bleed (~04/2019) Secondary to peptic ulcers. Glaucoma History of cellulitis History of deep venous thrombosis Hx pulmonary embolism Hypertension Hypothyroidism No longer on medication. Osteoarthritis Peptic ulcer disease Pulmonary embolism (~04/2018) Right leg DVT Extensive right lower extremity DVT on ultrasound dated 08/26/2019. <Christina Joyce PA-C - Last Filed: 10/02/23 17:09> Surgical History Surgical History: Surgical History History of 3 sections History of dilation and curettage History of endometrial ablation History of Adrienne-en-Y gastric bypass (~2009) History of tubal ligation Presence of IVC filter (~11/2018) Performed at [facility]. <ELIANA Huynh Last Filed: 10/02/23 17:09> Family History Family History: Family History Mother Hypertension Father Hypertension <Christina Joyce PA-C - Last Filed: 10/02/23 17:09> Social History Social History: Social History Social History: The patient
--- NOTE | 2023-10-02 15:17 | ECG_ITS ---
Test Date: 2023-10-02 15:46:37 Measurements Intervals [place] Rate: 68 P: 62 MN: 185 QRS: -8 QRSD: 95 T: -3 QT: 411 QTc: 439 Interpretive Statements SINUS RHYTHM WITH OCCASIONAL SUPRAVENTRICULAR PREMATURE COMPLEXES MODERATE VOLTAGE CRITERIA FOR LVH, CONSIDER NORMAL VARIANT [MEETS CRITERIA IN ONE OF: R(aVL), S(V1), R(V5), R(V5/V6)+S(V1)] No previous ECG available for comparison Electronically Signed On 10-03-2023 13:31:19 CDT by Armand Delaney M.D.
--- NOTE | 2023-10-02 15:26 | PC.NURSE ---
pt in CT at this time.
[2023-10-02 15:27] LABS: Lipase 194 U/L (23-300)
[2023-10-02] MEDS: SODIUM CHLORIDE 0.9% IV 500 ML 999 ML IV CONT (15:45)
[2023-10-02 17:16] LABS: Hematocrit 36.7 % (37.0-47.0); Hemoglobin 11.5 g/dL (12.0-15.0)
--- NOTE | 2023-10-02 17:48 | PM.IMHP ---
H&P: HPI History of Present Illness Date/Time: 10/02/23 17:48 Chief Complaint: Rectal Bleeding Narrative: 52 y/o F presents here with bright red blood per rectum with PMH of Anemia, chronic acquired lymphedema, B12 deficiency, GERD, GI bleed secondary to PUD (2019), DVT and PE (on Xarelto), HTN, hypothyroidism ( not currently on medication), and osteoarthritis. The patient presents here from home for further evaluation of bright red blood per rectum for the past 2 days. The rectal bleeding is accompanied by weakness, lightheadedness, nausea, lack of appetite, and left-sided abdominal pain. The patient describes the abdominal pain as nagging, dull, nonradiating, constant, no aggravating factors, and no alleviating factors. The patient's stool has been loose, normal in color, and accompanied by pure blood without clots that are bright red. 6-7 stools in the last 24 hours. She is currently on Xarelto due to history of blood clots. Has been out of the medication and last dose was 3-4 days ago. Has previous history of GI bleed - gastric ulcer that blood in 2019. Last colonoscopy was approximately 3-5 years ago (believes she may have been 49) which was unremarkable, done at [facility]. EGD last done in August of 2023, no abnormalities, and was done at [facility]. Initial VS at presentation: 97.6? F, HR 61, RR 16, 165/89, and 100% on RA. ED workup showed: no leukocytosis, hemoglobin 11.3, platelet count 76, INR 1.3, PT 16.3, PTT 30.5, no significant electrolyte derangements, creatinine 0.8 and GFR >60, total bilirubin 1.8, AST 207, ALT 65, alk-phos 171. CT of the abdomen pelvis showed no evidence of active bleeding seen in the bowel, no appendicitis/diverticulitis/obstruction, and fat infiltration of the liver. Review of Systems Review of Systems: All systems reviewed & are unremarkable except as noted in HPI and below PMFSH Past Medical History Medical History Anemia History of several blood transfusions. B12 deficiency Chronic acquired lymphedema Chronic anticoagulation Due to history of recurrent DVT and pulmonary embolism. IVC filter in place. Gastroesophageal reflux GI bleed (~04/2019) Secondary to peptic ulcers. Glaucoma History of cellulitis History of deep venous thrombosis Hx pulmonary embolism Hypertension Hypothyroidism No longer on medication. Osteoarthritis Peptic ulcer disease Pulmonary embolism (~04/2018) Right leg DVT Extensive right lower extremity DVT on ultrasound dated 08/26/2019. Surgical History Surgical History History of 3 sections History of dilation and curettage History of endometrial ablation History of Adrienne-en-Y gastric bypass (~2009) History of tubal ligation Presence of IVC filter (~11/2018) Performed at [facility]. Family History Family History (Updated 10/02/23 @ 18:37 by Kandis Nolasco RN) Mother Hypertension Dementia Father Hypertension Social History Social History Social History: The patient is and lives with her daughter. I believe her grandson lives next door. 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 Lifelong nonsmoker. She drinks perhaps 2 alcoholic beverages a week. No illicit substance use. She designates her son, Jose Willis, as her surrogate decision maker and she wishes to be a full code. Smoking status: Never smoker Alcohol intake: current Drinks per week: 3 Substance use: never Do You Feel Safe in your Home?: Yes Lack of Transportation: No Lack of Food: Never True Current Housing: I Have Housing Concerned About Future Housing: No Difficulty Paying Gas/Electric Bills: No Difficulty Paying for Meds: No Currently Unemployed: No Education: Bachelor's Degree Difficulty w/ Childcare or Family Care: No Li
--- NOTE | 2023-10-02 18:36 | ADMGEN ---
This patient, Tiarra Addison, was admitted to Medical Room 248-01. Patient/family oriented to hospital policies and general routines including ID bracelet, bed and alarms, visiting hours, pain management, procedures, bathroom and other care routines, personal items, smoking policy, room service/diet, and visiting hours. Information on how to activate the Rapid Response Team has been discussed. Patient/Family are encouraged to report perceived risks to care and to ask questions if they do not understand what they are told or what they should do.
[2023-10-02] MEDS: oxyCODONE HCL (*CRX) 5 MG TAB IR 10 MG PO (18:54)
[2023-10-02] MEDS: BETAMETHASONE/CLOTRIMAZOLE CREAM 15 GM TUBE 1 APPLIC TOPICAL (21:19)
[2023-10-02] MEDS: ZOLPIDEM TARTRATE (*CRX) 5 MG TABLET 10 MG PO (21:19)
[2023-10-02] MEDS: MORPHINE SULFATE (*CRX) 2 MG/ML INJ IV PUSH (22:49)
[2023-10-02 23:53] LABS: Hematocrit 35.3 % (37.0-47.0); Hemoglobin 10.8 g/dL (12.0-15.0)
[2023-10-02 23:54] LABS: Immature Platelet Fraction Pct 4.2 % (0.9-11.2); Platelet Count Result 68 k/mm3 (150-375)
[2023-10-03] VITALS (8 sets, daily range): BP systolic 110–132; BP diastolic 65–90; PULSE 57–88; RESP 17–20; TEMP 36.6–36.9; O2SAT 98–100
[2023-10-03] MEDS: oxyCODONE HCL (*CRX) 5 MG TAB IR 10 MG PO ×3 (04:13→20:33)
[2023-10-03 04:49] LABS: Basophils Percent Auto 0.4 % (0.2-1.2); Eosinophils Absolute Auto 0.1 K/mm3 (0-0.3); Eosinophils Percent Auto 2.9 % (0-4.4); Hematocrit 31.6 % (37.0-47.0); Hemoglobin 9.7 g/dL (12.0-15.0); Immature Granulocyte Absolute 0.02 K/mm3 (0.00-0.031); Immature Granulocyte Percent A 0.4 % (0-0.5); Immature Platelet Fraction Pct 4.8 % (0.9-11.2); Lymphocytes Absolute Auto 0.85 K/mm3 (0.9-3.2); Lymphocytes Percent Auto 18.7 % (18.3-44.2); Mean Corpuscular HGB Conc 30.7 g/dl (32-36); Mean Corpuscular Hemoglobin 30.1 pg (26-34); Mean Corpuscular Volume 98.1 fl (80-100); Mean Platelet Volume 12.4 fl (7.4-10.4); Monocytes Absolute Auto 0.5 K/mm3 (0.1-0.6); Monocytes Percent Auto 11.5 % (2.6-8.5); Neutrophils Percent Auto 66.1 % (45.5-73.1); Platelet Count Result 58 k/mm3 (150-375); Red Blood Count 3.22 M/mm3 (4.2-5.4); Red Cell Distribution Width 18.3 % (11.5-14.5); White Blood Count 4.5 K/mm3 (4.5-10.0)
[2023-10-03 05:06] LABS: Alanine Aminotransferase 55 U/L (6-35); Albumin Level 3.5 g/dL (3.5-5.1); Alkaline Phosphatase 132 U/L (38-126); Anion Gap 6 mmol/L (4-12); Aspartate Amino Transferase 93 U/L (14-36); Bilirubin,Total 1.5 mg/dL (0.2-1.3); Blood Urea Nitrogen 12 mg/dL (7-17); Calcium 8.6 mg/dL (8.4-10.2); Carbon Dioxide 26 mmol/L (22-30); Chloride 107 mmol/L (98-107); Estimated CRCL calculation 107 ml/min; Estimated Glomerular Filt Rate > 60; Glucose 78 mg/dL (65-110); Sodium 139 mmol/L (137-145)
[2023-10-03 05:21] LABS: Anisocytosis 1+; Hypochromasia 1+; Platelet Estimate Decreased (Adequate)
[2023-10-03 05:22] LABS: Schistocytes None Seen
--- NOTE | 2023-10-03 08:04 | P.CONGI_ITS ---
I, Jose Hernandez MD, have provided a substantive portion of the care of this patient and discussed the patient with my Nurse Practitioner. I have reviewed any new relevant radiographic and laboratory results including medications. I agree with her documentation as noted below.?I personally performed the medical decision making and much of the history and exam for 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. briefly she has h/o DVT on xarelto, gastric bypass about 10 years ago with most recent EGD ~ 1 month ago that apparently was normal. Here with new onset of rectal bleeding, she decided to stop xarelto. She is admitted here, hemodynamically stable. She also drinks alcohol up to 1 bottle wine some days. Here noted to have bili 1.8, transaminases 60-80, low platelets, imaging showed fatty liver. Hgb 10. Plan is to do colonoscopy tomorrow. She needs to stop drinking alcohol and monitor liver enzymes. Assessment and Plan Assessment and plan (1) GI bleed: Qualifiers: GI bleed type/associated pathology: anorectal hemorrhage Qualified Code(s): K62.5 - Hemorrhage of anus and rectum Code(s): K92.2 - Gastrointestinal hemorrhage, unspecified Status: Acute (2) Anemia: Qualifiers: Anemia type: unspecified type Qualified Code(s): D64.9 - Anemia, unspecified Code(s): D64.9 - Anemia, unspecified Status: Acute (3) Abnormal finding on imaging of liver: Code(s): R93.2 - Abnormal findings on diagnostic imaging of liver and biliary tract Status: Acute (4) Hepatic steatosis: Code(s): K76.0 - Fatty (change of) liver, not elsewhere classified Status: Acute (5) Thrombocytopenia: Code(s): D69.6 - Thrombocytopenia, unspecified Status: Acute Plan 1) GI bleed: Per patient last colonoscopy performed at [facility] 3-5 years ago was unremarkable. Family history negative for CRC or IBD. Patient denies any known history of hemorrhoids. Patient has been experiencing painless bright red blood per rectum over the past few days that started off as a trace amount and increase to a large amount. Last BM was yesterday which she states was formed but still contained blood. She has a history of PE and DVT and has an IVC filter in place and takes Xarelto, which is currently on hold. WOOD ROOM HAND the patient states that she was having more loose frequent stools stating that she had approximately 7 bowel movements over the past 2 days. DDX: Hemorrhoid versus polyp versus AVM versus neoplasm * Clear liquid diet today * Colonoscopy tomorrow * NPO after midnight * bowel prep to start this evening * further recommendations to follow endoscopy 2) ABLA /thrombocytopenia: H/H decreasing since admission showing Hgb 12-->10, Hct 37-->32, MCV 98 and platelets 76-->58. Patient on Xarelto prior to admission. * May be secondary to problem #1 * possible underlying liver etiology to explain thrombocytopenia? * Primary care team to continue monitoring H&H and transfuse as needed to keep HGB >7 3) Elevated LFT's/ abnormal imaging liver -hepatics steatosis: CT scan showed fatty infiltration of the liver but no signs of biliary obstruction or dilation. LFTs trending down since admission but still elevated with total bilirubin 1.8-->1.5, AST 207-->93, ALT 65-->55, and Alk Phos 171-->132. patient does admit to drinking in excess of last Saturday so it is unclear if there may have been a component of ETOH hepatitis that may have been trending down * RUQ ultrasound ordered * Liver work up ordered Thank you very much for allowing me share in the care this very nice patient. This report may
--- NOTE | 2023-10-03 08:04 | WPDGICN ---
Assessment and Plan Assessment and plan (1) GI bleed: Qualifiers: GI bleed type/associated pathology: anorectal hemorrhage Qualified Code(s): K62.5 - Hemorrhage of anus and rectum Code(s): K92.2 - Gastrointestinal hemorrhage, unspecified Status: Acute (2) Anemia: Qualifiers: Anemia type: unspecified type Qualified Code(s): D64.9 - Anemia, unspecified Code(s): D64.9 - Anemia, unspecified Status: Acute (3) Abnormal finding on imaging of liver: Code(s): R93.2 - Abnormal findings on diagnostic imaging of liver and biliary tract Status: Acute (4) Hepatic steatosis: Code(s): K76.0 - Fatty (change of) liver, not elsewhere classified Status: Acute (5) Thrombocytopenia: Code(s): D69.6 - Thrombocytopenia, unspecified Status: Acute Plan 1) GI bleed: Per patient last colonoscopy performed at [facility] 3-5 years ago was unremarkable. Family history negative for CRC or IBD. Patient denies any known history of hemorrhoids. Patient has been experiencing painless bright red blood per rectum over the past few days that started off as a trace amount and increase to a large amount. Last BM was yesterday which she states was formed but still contained blood. She has a history of PE and DVT and has an IVC filter in place and takes Xarelto, which is currently on hold. POND TENDER the patient states that she was having more loose frequent stools stating that she had approximately 7 bowel movements over the past 2 days. DDX: Hemorrhoid versus polyp versus AVM versus neoplasm Clear liquid diet today Colonoscopy tomorrow NPO after midnight bowel prep to start this evening further recommendations to follow endoscopy 2) ABLA /thrombocytopenia: H/H decreasing since admission showing Hgb 12-->10, Hct 37-->32, MCV 98 and platelets 76-->58. Patient on Xarelto prior to admission. May be secondary to problem #1 possible underlying liver etiology to explain thrombocytopenia? Primary care team to continue monitoring H&H and transfuse as needed to keep HGB >7 3) Elevated LFT's/ abnormal imaging liver -hepatics steatosis: CT scan showed fatty infiltration of the liver but no signs of biliary obstruction or dilation. LFTs trending down since admission but still elevated with total bilirubin 1.8-->1.5, AST 207-->93, ALT 65-->55, and Alk Phos 171-->132. patient does admit to drinking in excess of last Saturday so it is unclear if there may have been a component of ETOH hepatitis that may have been trending down RUQ ultrasound ordered Liver work up ordered Thank you very much for allowing me share in the care this very nice patient. This report may have been done utilizing a voice recognition system. Attempts have been made to correct errors. However, there may be uncorrected grammatical, spelling, and recognition errors present. GI Consult Note Consult date/time: 10/03/23 08:04 Reason for consult: GI bleed HPI: Tiarra Addison is a 52 year old female with past medical surgical history of anemia, chronic acquired lymphedema, B12 deficiency, GERD, GI bleed secondary to PUD (2019), DVT and PE (on Xarelto), HTN, hypothyroidism and osteoarthritis. she presented to the emergency room yesterday with complaints of bright red blood per rectum x2 days accompanied with weakness, lightheadedness, nausea, lack of appetite, IVC filter and abdominal pain. GI was consulted for GI bleed. Patient states that a few days ago she started experiencing vague symptoms including left lower quadrant abdominal discomfort, nausea,dry heaves, and decreased appetite. She denies any PO intake over the past 2 days. She has been experiencing painless rectal bleeding for the past few days that started office a trace amount and then increased to large amount yesterday. Last BM yesterday was formed but also contained large amount of bright red blood. She admits to intermittent reflux and
[2023-10-03] MEDS: FUROSEMIDE 40 MG TABLET PO (08:30)
[2023-10-03] MEDS: amLODIPine BESYLATE 5 MG TABLET PO (08:31)
[2023-10-03] MEDS: PANTOPRAZOLE SODIUM IV 40 MG VIAL IV PUSH (08:31)
[2023-10-03] MEDS: lisinopriL 10 MG TABLET PO (08:31)
[2023-10-03] MEDS: METOPROLOL SUCCINATE EXT REL 25 MG TABCR PO (08:31)
[2023-10-03] MEDS: BETAMETHASONE/CLOTRIMAZOLE CREAM 15 GM TUBE 1 APPLIC TOPICAL ×2 (08:32→20:35)
[2023-10-03] MEDS: ARTIFICIAL TEARS OPHTH SOLN 15 ML BOTTLE 1 DROP EACH EYE (10:26)
[2023-10-03 10:41] LABS: Alanine Aminotransferase 57 U/L (6-35); Albumin Level 4.2 g/dL (3.5-5.1); Alkaline Phosphatase 156 U/L (38-126); Aspartate Amino Transferase 97 U/L (14-36); Bilirubin,Total 1.6 mg/dL (0.2-1.3); Lipase 155 U/L (23-300); Magnesium 1.6 mg/dL (1.6-2.3)
[2023-10-03 10:45] LABS: Iron 101 ug/dL (37-170)
[2023-10-03 10:54] LABS: Percent Iron Saturation 36 % (20-50)
[2023-10-03] MEDS: MAGNESIUM SULF 2 GM/WATER 50ML 2 GM/50 ML BAG IVPB (11:20)
--- NOTE | 2023-10-03 11:29 | PM.IMPN ---
Progress Note: A&P Assessment and Plan (1) GI bleed: Qualifiers: GI bleed type/associated pathology: anorectal hemorrhage Qualified Code(s): K62.5 - Hemorrhage of anus and rectum Code(s): K92.2 - Gastrointestinal hemorrhage, unspecified Status: Acute Assessment and Plan: 10/02/23: - Hemoccult+ - Hgb 11.3 -> 11.5 - CT abd/pelvis: No evidence of active bleeding seen in the bowel. No evidence of appendicitis, diverticulitis or intestinal obstruction. Fat infiltration of the liver. - GI consulted, awaiting recs - home medication transitioned to IVP Protonix - hold Xarelto - trend labs 10/03/23: Hgb 9.7 Continue to hold Xarelto Continue Protonix Continue cardiac monitoring GI consulted and plans to take patient to GI lab tomorrow for colonoscopy. Bowel prep tonight, NPO after midnight Transfuse if Hgb less than 7.0, Hct less than 21 Continue to trend labs (2) Anemia: Qualifiers: Anemia type: unspecified type Qualified Code(s): D64.9 - Anemia, unspecified Code(s): D64.9 - Anemia, unspecified Status: Acute Assessment and Plan: - Hgb 11.3 -> 11.5 - hx of B12 deficiency anemia, per oncology d/c papers was receiving B12 injections - MCV 97.8, MCHC 31.3 - currently complicated by GI bleed - trend H&H - continue vitamin supplements once appropriate 10/03/23: Hgb 9.7 Continue to trend labs (3) Thrombocytopenia: Code(s): D69.6 - Thrombocytopenia, unspecified Status: Acute Assessment and Plan: - platelet count 76, trend - reviewed labs (August of 2019 - Present), no prior history of thrombocytopenia to this degree - suspect low levels are transient or due to B12 deficiency - consider consultation to heme/onc 10/03/23: Platelet count 58 Will check Vitamin B 12 Patient has history of DVTs on hotel maid anticoagulation with Xarelto and has IVC filter in place Will check fibrinogen to rule out DIC Liver work up pending, currently liver enzymes are elevated AST 97, ALT 57, Total bili 1.6 LEIGHA pending to rule out autoimmune cause Consider Heme/Oncology consult if pending work up is negative. (4) Hypertension: Qualifiers: Hypertension type: essential hypertension Qualified Code(s): I10 - Essential (primary) hypertension Code(s): I10 - Essential (primary) hypertension Status: Chronic Assessment and Plan: - chronic, currently 136/68 - continue home medications: amlodipine 5 mg, lisinopril 10 mg - monitor 10/03/23: no change to current treatment plan (5) History of deep venous thrombosis: Code(s): Z86.718 - Personal history of other venous thrombosis and embolism Status: Acute Assessment and Plan: 10/03/23: history of multiple DVTs, S/P IVC filter placement Patient is on chronic anticoagulation, Xarelto, which is currently on hold due to GI bleed Time Spent With Patient Time with patient: 25 - 35 minutes Subjective Date/time seen: 10/03/23 11:29 Interval history: This is a 52-year-old female who presented to the hospital on 10/02/2023 with bright red blood per rectum. Patient normally on Xarelto at home however this has been held this admission. Patient has had GI bleed in the past secondary to peptic ulcers. Workup in the hospital included abdomen pelvis CT which was negative for any active bleed seen in the bowel, fat infiltration of the liver. Abdomen ultrasound showed diffuse hepatic steatosis otherwise normal. Initial labs showed a normal white blood cell count of 6.3, hemoglobin 11.3, platelet count 76, INR 1.3, total bili 1.8, AST 207, ALT 65, alk-phos 171, lipase 194. Patient was given 500 mL normal saline bolus and morphine while in the ED. GI was consulted. Stool culture was obtained and is pending. On examination today patient is alert and oriented x3, lying in the bed. Patient denies any fever, chills, vomiting, diarrhea, abdominal pain, chest pain,
[2023-10-03] MEDS: BISACODYL 5 MG TABLET EC 20 MG PO (16:36)
[2023-10-03] MEDS: polyethylene glycoL 3350 238 GM BOTTLE PO (16:36)
[2023-10-03 20:19] LABS: Fibrinogen 231 mg/dl (215-510)
[2023-10-03] MEDS: ZOLPIDEM TARTRATE (*CRX) 5 MG TABLET 10 MG PO (20:34)
[2023-10-04] VITALS (14 sets, daily range): BP systolic 94–129; BP diastolic 51–82; PULSE 57–87; RESP 16–20; TEMP 36.2–37.1; O2SAT 97–100
[2023-10-04] MEDS: MAGNESIUM CITRATE 300 ML BTL PO (02:21)
[2023-10-04] MEDS: oxyCODONE HCL (*CRX) 5 MG TAB IR 10 MG PO ×3 (04:24→20:52)
--- NOTE | 2023-10-04 08:00 | PC.NURSE ---
Addendum entered by Yani Gallardo RN 10/04/23 08:39: Kimmy from GI lab called back and let me know Dr. Weaver does not need labs redrawn. Original Note: spoke with Kimmy in GI lab and gave report on patient. Patient did not have labs drawn this morning and platelet count yesterday was low. Kimmy in GI lab to mention this to Dr Weaver and call me back to let me know if he would like any labs drawn. Also reviewed medications with Kimmy. Okay to give all morning medications besides lasix.
[2023-10-04] MEDS: METOPROLOL SUCCINATE EXT REL 25 MG TABCR PO (08:26)
[2023-10-04] MEDS: lisinopriL 10 MG TABLET PO (08:26)
[2023-10-04] MEDS: PANTOPRAZOLE SODIUM IV 40 MG VIAL IV PUSH (08:26)
[2023-10-04] MEDS: amLODIPine BESYLATE 5 MG TABLET PO (08:26)
[2023-10-04] MEDS: BETAMETHASONE/CLOTRIMAZOLE CREAM 15 GM TUBE 1 APPLIC TOPICAL (08:27)
--- NOTE | 2023-10-04 09:30 | PC.NURSE ---
pt taken down to GI lab
--- NOTE | 2023-10-04 09:44 | WPDANESEPPF ---
Anes - Initial Pre Proc Eval Procedure: Operation Date: 10/04/23 16:00 Proposed Procedures p Colonoscopy - Jose Hernandez MD Date/Time: 10/04/23 09:44 Surgeon: Rubia Bustillo APRN Pre Op Diagnosis: GI BLEED Patient Data Age: 52 Gender: F Height: 1.7 m Weight: 146 kg Last Vital Signs Temp 97.5 F L 10/04/23 08:24 Pulse 64 10/04/23 08:26 Resp 16 10/04/23 08:24 BP 118/72 10/04/23 08:24 Pulse Ox 100 10/04/23 08:24 O2 Del Method Room Air 10/03/23 08:00 Allergies Allergy/AdvReac Type Severity Reaction Status Date / Time No Known Allergies Allergy Verified 10/04/23 09:46 Home Medications Medication Instructions Recorded Confirmed Type famotidine 20 mg tablet 20 mg PO BID 08/12/19 10/02/23 History potassium chloride 10 mEq 10 meq PO DAILY 08/12/19 10/02/23 History tablet,extended release zolpidem 5 mg tablet 10 mg PO HS 08/12/19 10/02/23 History cyanocobalamin (vitamin B-12) 100 mcg (0.1 mL) IM MONTHLY #5 ea 08/21/19 10/02/23 Rx 1,000 mcg/mL injection kit folic acid 1 mg tablet 1 mg PO DAILY #30 tabs 08/21/19 10/02/23 Rx metoprolol succinate 25 mg 25 mg PO DAILY 10/13/19 10/02/23 History tablet,extended release 24 hr ferrous sulfate 325 mg (65 mg 325 mg PO DAILY 12/02/19 10/02/23 History iron) tablet furosemide 40 mg tablet 40 mg PO DAILY 12/02/19 10/02/23 History omeprazole 40 mg capsule,delayed 40 mg PO DAILY 12/02/19 10/02/23 History release amlodipine 5 mg tablet 5 mg PO DAILY 02/02/20 10/02/23 History clotrimazole-betamethasone 1 1 applic topical BID #45 grams 04/08/20 10/02/23 Rx %-0.05 % topical cream lisinopril 10 mg tablet 10 mg PO DAILY 10/02/23 10/02/23 History oxycodone 10 mg tablet 10 mg PO Q8H PRN Pain 10/02/23 10/02/23 History rivaroxaban 20 mg tablet (Xarelto) 20 mg PO QHS 10/02/23 10/02/23 History Laboratory Tests 10/03/23 10/03/23 10:08 20:01 Fibrinogen 231 mg/dl (215-510) Magnesium 1.6 mg/dL (1.6-2.3) Iron 101 ug/dL (37-170) TIBC 284 ug/dL (261-462) % Saturation 36 % (20-50) Ferritin 71.80 ng/mL (11.1-264) Total Bilirubin 1.6 H mg/dL (0.2-1.3) Direct Bilirubin 0.0 mg/dL (0-0.3) AST 97 H U/L (14-36) ALT 57 H U/L (6-35) Alkaline Phosphatase 156 H U/L (38-126) Liver Fibrosis Ref ID Pending Liver Fibrosis GGTP Pending Liver Total Bilirubin Pending Liver Apolipoprotein A1 Pending Liver Fibrosis ALT Pending Liver Haptoglobin Pending Liver Fib Fibro Score Pending Liver Fib Fibro Interp Pending Liver Fib Fibro Stage Pending Liver Fibrosis Footnote Pending Necroinflammator Score Pending Necroinflammator Grade Pending Necroinflam Interp Pending Total Protein 8.0 g/dL (6.3-8.2) Albumin 4.2 g/dL (3.5-5.1) [id number] Pending Ceruloplasmin Pending Lipase 155 U/L (23-300) Alpha Fetoprotein Pending U [id number] Pending LEIGHA Screen Pending Mitochondria M2 IgG Ab Pending Actin IgG Antibody Pending Patient hx anesthesia problems: none Family hx anesthesia problems: none Results Review: All pre-operative results and documents have been reviewed as part of the pre-operative evaluation. [facility] Past Medical History Medical History Anemia History of several blood transfusions. B12 deficiency Chronic acquired lymphedema Chronic anticoagulation Due to history of recurrent DVT and pulmonary embolism. IVC filter in place. Gastroesophageal reflux GI bleed (~04/2019) Secondary to peptic ulcers. Glaucoma History of cellulitis History of deep venous thrombosis Hx pulmonary embolism Hypertension Hypothyroidism No longer on medication. Osteoarthritis
[2023-10-04] MEDS: LACTATED RINGERS 1,000 ML 150 ML IV CONT (09:49)
--- NOTE | 2023-10-04 10:29 | P.PNIM_ITS ---
Progress Note: A&P Assessment and Plan (1) GI bleed: Qualifiers: GI bleed type/associated pathology: anorectal hemorrhage Qualified Code(s): K62.5 - Hemorrhage of anus and rectum Code(s): K92.2 - Gastrointestinal hemorrhage, unspecified Status: Acute Assessment and Plan: 10/02/23: - Hemoccult+ - Hgb 11.3 -> 11.5 - CT abd/pelvis: No evidence of active bleeding seen in the bowel. No evidence of appendicitis, diverticulitis or intestinal obstruction. Fat infiltration of the liver. - GI consulted, awaiting recs - home medication transitioned to IVP Protonix - hold Xarelto - trend labs 10/03/23: * Hgb 9.7 * Continue to hold Xarelto * Continue Protonix * Continue cardiac monitoring * GI consulted and plans to take patient to GI lab tomorrow for colonoscopy. * Bowel prep tonight, NPO after midnight * Transfuse if Hgb less than 7.0, Hct less than 21 * Continue to trend labs 10/04/23: * Colonoscopy performed today shown a single 2 mm polyp observed in the cecum which was excised and sent off for biopsy, few small size internal hemorrhoids were seen in the rectum, no colitis, no AVM, no signs of bleeding. * Continue cardiac monitoring * Continue Protonix * Holding Xarelto * Hgb 10.0 * GI following * Continue to trend labs (2) Anemia: Qualifiers: Anemia type: unspecified type Qualified Code(s): D64.9 - Anemia, unspecified Code(s): D64.9 - Anemia, unspecified Status: Acute Assessment and Plan: - Hgb 11.3 -> 11.5 - hx of B12 deficiency anemia, per oncology d/c papers was receiving B12 injections - MCV 97.8, MCHC 31.3 - currently complicated by GI bleed - trend H&H - continue vitamin supplements once appropriate 10/03/23: * Hgb 9.7 * Continue to trend labs 07/04/23: * Hgb today 10.0 * Continue to trend * Xarelto on hold (3) Thrombocytopenia: Code(s): D69.6 - Thrombocytopenia, unspecified Status: Acute Assessment and Plan: - platelet count 76, trend - reviewed labs (August of 2019 - Present), no prior history of thrombocytopenia to this degree - suspect low levels are transient or due to B12 deficiency - consider consultation to heme/onc 10/03/23: * Platelet count 58 * Will check Vitamin B 12 * Patient has history of DVTs on fpc anticoagulation with Xarelto and has IVC filter in place * Will check fibrinogen to rule out DIC * Liver work up pending, currently liver enzymes are elevated AST 97, ALT 57, Total bili 1.6 * LEIGHA pending to rule out autoimmune cause * Consider Heme/Oncology consult if pending work up is negative. 10/04/23: * Platelet count 69, however looking more pancytopenic today on labs * Hematology/Oncology consulted * Vitamin B12 675 * Fibrinogen 231 * LEIGHA and liver work up pending (4) Hypertension: Qualifiers: Hypertension type: essential hypertension Qualified Code(s): I10 - Essential (primary) hypertension Code(s): I10 - Essential (primary) hypertension Status: Chronic Assessment and Plan: - chronic, currently 136/68 - continue home medications: amlodipine 5 mg, lisinopril 10 mg - monitor 10/03/23: * no change to current treatment plan (5) History of deep venous thrombosis: Code(s): Z86.718 - Personal history of other venous thrombosis and embolism Status: Acute Assessment and Plan: 10/03/23: * history of multiple DVTs, S/P IVC filter placement * Patient
--- NOTE | 2023-10-04 10:29 | PM.IMPN ---
Progress Note: A&P Assessment and Plan (1) GI bleed: Qualifiers: GI bleed type/associated pathology: anorectal hemorrhage Qualified Code(s): K62.5 - Hemorrhage of anus and rectum Code(s): K92.2 - Gastrointestinal hemorrhage, unspecified Status: Acute Assessment and Plan: 10/02/23: - Hemoccult+ - Hgb 11.3 -> 11.5 - CT abd/pelvis: No evidence of active bleeding seen in the bowel. No evidence of appendicitis, diverticulitis or intestinal obstruction. Fat infiltration of the liver. - GI consulted, awaiting recs - home medication transitioned to IVP Protonix - hold Xarelto - trend labs 10/03/23: Hgb 9.7 Continue to hold Xarelto Continue Protonix Continue cardiac monitoring GI consulted and plans to take patient to GI lab tomorrow for colonoscopy. Bowel prep tonight, NPO after midnight Transfuse if Hgb less than 7.0, Hct less than 21 Continue to trend labs 10/04/23: Colonoscopy performed today shown a single 2 mm polyp observed in the cecum which was excised and sent off for biopsy, few small size internal hemorrhoids were seen in the rectum, no colitis, no AVM, no signs of bleeding. Continue cardiac monitoring Continue Protonix Holding Xarelto Hgb 10.0 GI following Continue to trend labs (2) Anemia: Qualifiers: Anemia type: unspecified type Qualified Code(s): D64.9 - Anemia, unspecified Code(s): D64.9 - Anemia, unspecified Status: Acute Assessment and Plan: - Hgb 11.3 -> 11.5 - hx of B12 deficiency anemia, per oncology d/c papers was receiving B12 injections - MCV 97.8, MCHC 31.3 - currently complicated by GI bleed - trend H&H - continue vitamin supplements once appropriate 10/03/23: Hgb 9.7 Continue to trend labs 07/04/23: Hgb today 10.0 Continue to trend Xarelto on hold (3) Thrombocytopenia: Code(s): D69.6 - Thrombocytopenia, unspecified Status: Acute Assessment and Plan: - platelet count 76, trend - reviewed labs (August of 2019 - Present), no prior history of thrombocytopenia to this degree - suspect low levels are transient or due to B12 deficiency - consider consultation to heme/onc 10/03/23: Platelet count 58 Will check Vitamin B 12 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 10/04/23: Platelet count 69, however looking more pancytopenic today on labs Hematology/Oncology consulted Vitamin B12 675 Fibrinogen 231 LEIGHA and liver work up pending (4) Hypertension: Qualifiers: Hypertension type: essential hypertension Qualified Code(s): I10 - Essential (primary) hypertension Code(s): I10 - Essential (primary) hypertension Status: Chronic Assessment and Plan: - chronic, currently 136/68 - continue home medications: amlodipine 5 mg, lisinopril 10 mg - monitor 10/03/23: no change to current treatment plan (5) History of deep venous thrombosis: Code(s): Z86.718 - Personal history of other venous thrombosis and embolism Status: Acute Assessment and Plan: 10/03/23: history of multiple DVTs, S/P IVC filter placement Patient is on chronic anticoagulation, Xarelto, which is currently on hold due to GI bleed 10/04/23: Continue to hold Xarelto Time Spent With Patient Time with patient: 25 - 35 minutes Subjective Date/time seen: 10/04/23 10:29 Interval history: Interval history: This is a 52-year-old female who presented to the hospital on 10/02/2023 with bright red blood per rectum. Patient normally on Xarelto at home however this has been held this admission. Patient has had GI bleed in the past secondary to peptic ulcers. Workup in the h
--- NOTE | 2023-10-04 11:35 | PC.NURSE ---
pt returned to room from GI lab
[2023-10-04 12:37] LABS: Basophils Percent Auto 0.3 % (0.2-1.2); Eosinophils Absolute Auto 0.2 K/mm3 (0-0.3); Eosinophils Percent Auto 4.2 % (0-4.4); Hematocrit 32.8 % (37.0-47.0); Immature Granulocyte Absolute 0.01 K/mm3 (0.00-0.031); Immature Granulocyte Percent A 0.3 % (0-0.5); Immature Platelet Fraction Pct 4.6 % (0.9-11.2); Lymphocytes Absolute Auto 0.75 K/mm3 (0.9-3.2); Lymphocytes Percent Auto 19.5 % (18.3-44.2); Mean Corpuscular HGB Conc 30.5 g/dl (32-36); Mean Corpuscular Hemoglobin 30.1 pg (26-34); Mean Corpuscular Volume 98.8 fl (80-100); Mean Platelet Volume 11.8 fl (7.4-10.4); Monocytes Absolute Auto 0.5 K/mm3 (0.1-0.6); Monocytes Percent Auto 12.7 % (2.6-8.5); Neutrophils Absolute Auto 2.4 K/mm3 (1.3-6.7); Platelet Count Result 69 k/mm3 (150-375); Red Blood Count 3.32 M/mm3 (4.2-5.4); Red Cell Distribution Width 18.6 % (11.5-14.5); White Blood Count 3.9 K/mm3 (4.5-10.0)
[2023-10-04 12:55] LABS: Alanine Aminotransferase 49 U/L (6-35); Albumin Level 3.7 g/dL (3.5-5.1); Alkaline Phosphatase 122 U/L (38-126); Anion Gap 7 mmol/L (4-12); Aspartate Amino Transferase 84 U/L (14-36); Bilirubin,Total 1.3 mg/dL (0.2-1.3); Blood Urea Nitrogen 10 mg/dL (7-17); Calcium 8.8 mg/dL (8.4-10.2); Carbon Dioxide 26 mmol/L (22-30); Chloride 105 mmol/L (98-107); Estimated CRCL calculation 107 ml/min; Estimated Glomerular Filt Rate > 60; Glucose 86 mg/dL (65-110); Potassium 3.9 mmol/L (3.4-5.0); Sodium 138 mmol/L (137-145)
--- NOTE | 2023-10-04 14:50 | PDONCCN ---
HPI - Date of Consult Date/Time: 10/04/23 14:50 Requesting Physician: Rubia Bustillo APRN Primary Care Provider: Fely Hardin - Consult Narrative Reason for consult: Hypercoagulable state and pancytopenia Narrative: Tiarra Addison is a 52 year old female with morbid obesity status post gastric bypass surgery in 1999. Patient has a history of recurrent bilateral lower extremity DVT and pulmonary embolism status post IVC filter placement in February of 2019. She had been on Xarelto. Her last blood clot was 2 years ago while she was in [place] involving the right lower extremity and underwent thrombectomy. She was put back on Xarelto. At the time of the last blood clot she was off the Xarelto for 3 months duration and was traveling a lot. Patient now came into the hospital with complaint of bright red blood per rectum for the last 3 days duration. According the patient she ran out of the Xarelto 3 days ago. She has been complaining of tiredness and fatigue along with some nausea and left-sided abdominal discomfort. She had last EGD done in August 2023 came back unremarkable at [facility]. She was seen by the sole leveler and colonoscopy was performed on October 03 that showed colon polyps with internal hemorrhoids. Labs showed hemoglobin 10.0. Iron studies were normal. Liver enzymes came back elevated. Vitamin B12 also. CT scan abdomen and pelvis showed fatty liver with no evidence of active bleeding in the bowels. Xarelto has been placed on hold. She denies any other new complaints. Review of Systems - Review of Systems All systems reviewed & are unremarkable except as noted in HPI and bel - Neurologic Reports system reviewed and no additional complaints, except as documented [facility] Medical History: Medical History (Last Reviewed 10/04/23 @ 09:45 by Jesse Escalona, DO) Anemia History of several blood transfusions. B12 deficiency Chronic acquired lymphedema Chronic anticoagulation Due to history of recurrent DVT and pulmonary embolism. IVC filter in place. Gastroesophageal reflux GI bleed Onset Date: ~04/2019 Secondary to peptic ulcers. Glaucoma History of cellulitis History of deep venous thrombosis Hx pulmonary embolism Hypertension Hypothyroidism No longer on medication. Osteoarthritis Peptic ulcer disease Pulmonary embolism Onset Date: ~04/2018 Right leg DVT Extensive right lower extremity DVT on ultrasound dated 08/26/2019. Surgical History: Surgical History (Last Reviewed 10/04/23 @ 09:45 by Jesse Escalona DO) History of 3 sections History of dilation and curettage History of endometrial ablation History of Adrienne-en-Y gastric bypass Onset Date: ~2009 History of tubal ligation Presence of IVC filter Onset Date: ~11/2018 Performed at [facility]. Family History: Family History (Last Reviewed 10/04/23 @ 09:45 by Jesse Escalona DO) Mother Hypertension Dementia Father Hypertension - Social History Social History: Social History (Last Reviewed 10/04/23 @ 09:45 by Jesse Escalona DO) Gender Identity: Gender identity (if verbalized by the patient): Female Alcohol Use: Alcohol intake: current Drinks per week: 3 Substance Use: Substance use: never Others: Spiritual care concerns: No Agree to blood products: Yes Living Arrangements: Living arrangements: with family Oppucation/Education: Occupation/Education: retired Smoking Status: Smoking status: Never smoker Social Determinants of Health: Do You Feel Safe in your Home?: Yes Has the Lack of Transportation Kept You From Medical Appointments or From Getting Medications?: No Within the Past 12 Months, Were You Worried Whether Your Food Would Run Out Before You Got Money to Buy More?: Never True What is Your Housing Situation Today?: I Have Housing Are You Worried That in the Next
[2023-10-04 14:54] LABS: Alpha-1-Antitrypsin, QN 154 mg/dL (83-199); Ceruloplasmin 29 mg/dL (14-48)
[2023-10-04] MEDS: ZOLPIDEM TARTRATE (*CRX) 5 MG TABLET 10 MG PO (20:53)
[2023-10-05] VITALS (9 sets, daily range): BP systolic 101–116; BP diastolic 58–70; PULSE 58–67; RESP 16; TEMP 36.3–36.7; O2SAT 98–99
[2023-10-05] MEDS: oxyCODONE HCL (*CRX) 5 MG TAB IR 10 MG PO ×2 (05:13→13:29)
[2023-10-05] MEDS: PANTOPRAZOLE SODIUM IV 40 MG VIAL IV PUSH (09:55)
[2023-10-05] MEDS: amLODIPine BESYLATE 5 MG TABLET PO (09:55)
[2023-10-05] MEDS: METOPROLOL SUCCINATE EXT REL 25 MG TABCR PO (09:55)
[2023-10-05] MEDS: BETAMETHASONE/CLOTRIMAZOLE CREAM 15 GM TUBE 1 APPLIC TOPICAL (09:55)
[2023-10-05] MEDS: lisinopriL 10 MG TABLET PO (09:55)
[2023-10-05] MEDS: FUROSEMIDE 40 MG TABLET PO (09:55)
[2023-10-05 09:56] LABS: Hemoglobin 10.1 g/dL (12.0-15.0); Immature Platelet Fraction Pct 4.2 % (0.9-11.2); Mean Corpuscular HGB Conc 30.6 g/dl (32-36); Mean Corpuscular Hemoglobin 30.8 pg (26-34); Mean Corpuscular Volume 100.6 fl (80-100); Mean Platelet Volume 12.4 fl (7.4-10.4); Platelet Count Result 73 k/mm3 (150-375); Red Blood Count 3.28 M/mm3 (4.2-5.4); Red Cell Distribution Width 18.7 % (11.5-14.5); White Blood Count 3.6 K/mm3 (4.5-10.0)
[2023-10-05 10:02] LABS: Alanine Aminotransferase 63 U/L (6-35); Albumin Level 3.4 g/dL (3.5-5.1); Alkaline Phosphatase 111 U/L (38-126); Anion Gap 4 mmol/L (4-12); Aspartate Amino Transferase 201 U/L (14-36); Bilirubin,Total 0.9 mg/dL (0.2-1.3); Blood Urea Nitrogen 10 mg/dL (7-17); Calcium 8.8 mg/dL (8.4-10.2); Carbon Dioxide 29 mmol/L (22-30); Chloride 106 mmol/L (98-107); Estimated CRCL calculation 107 ml/min; Estimated Glomerular Filt Rate > 60; Glucose 92 mg/dL (65-110); Potassium 3.9 mmol/L (3.4-5.0); Sodium 139 mmol/L (137-145)
--- NOTE | 2023-10-05 13:28 | PM.DS ---
DS: Admitting Diagnosis Discharge Date 10/05/23 Admitting Diagnosis GI bleed Anemia Thrombocytopenia Chronic anticoagulation Hypertension DS: Discharge Diagnosis Discharge Diagnosis (1) GI bleed: Qualifiers: GI bleed type/associated pathology: anorectal hemorrhage Qualified Code(s): K62.5 - Hemorrhage of anus and rectum Code(s): K92.2 - Gastrointestinal hemorrhage, unspecified Status: Acute (2) Anemia: Qualifiers: Anemia type: unspecified type Qualified Code(s): D64.9 - Anemia, unspecified Code(s): D64.9 - Anemia, unspecified Status: Acute (3) Thrombocytopenia: Code(s): D69.6 - Thrombocytopenia, unspecified Status: Acute (4) Hypertension: Qualifiers: Hypertension type: essential hypertension Qualified Code(s): I10 - Essential (primary) hypertension Code(s): I10 - Essential (primary) hypertension Status: Chronic (5) History of deep venous thrombosis: Code(s): Z86.718 - Personal history of other venous thrombosis and embolism Status: Acute DS: Summary Hospital Course Reason for hospitalization: GI bleed Anemia Thrombocytopenia Chronic anticoagulation Hypertension Hospital Course: This is a 52-year-old female who presented to the hospital on 10/02/2023 with bright red blood per rectum. Patient normally on Xarelto at home however this has been held this admission. Patient has had GI bleed in the past secondary to peptic ulcers. Workup in the hospital included abdomen pelvis CT which was negative for any active bleed seen in the bowel, fat infiltration of the liver. Abdomen ultrasound showed diffuse hepatic steatosis otherwise normal. Initial labs showed a normal white blood cell count of 6.3, hemoglobin 11.3, platelet count 76, INR 1.3, total bili 1.8, AST 207, ALT 65, alk-phos 171, lipase 194. Patient was given 500 mL normal saline bolus and morphine while in the ED. GI was consulted. Stool culture was obtained and is pending. Patient had colonoscopy on 10/04/2023 which showed a single 2 mm polyp in the cecum which was removed and sent out for biopsy, few small size internal hemorrhoids were in the rectum, no colitis, no AVM, and no signs of bleeding noted. Vital signs are stable, she is afebrile, she is on room air. She denies any new complaints today. She also denies any more bloody stools. Hemoglobin remained stable at 10.1. She is stable for discharge at this time. She will need to follow up with GI in 2 weeks. She will also need to see Hematology/Oncology in 2 weeks for follow-up on her thrombocytopenia/pancytopenia, chronic anemia. Final diagnosis: GI bleed, Thrombocytopenia, anemia, pancytopenia Status at Discharge Cognitive/behavioral status at discharge: Alert and oriented x3 Functional status at discharge: independent ambulation Overall status at discharge: patient is progressing back to baseline Time Spent with Patient Time attestation: Total time spent providing and/or coordinating discharge services: Time spent: Greater than 30 minutes Exam Narrative: General: In no acute distress, well nourished Cardiac: Normal S1 and S2. RRR, No murmur, gallops or friction rubs, peripheral pulses intact. Respiratory: Lungs clear to auscultation, no adventitious lung sounds, currently on room air Gastrointestinal: soft, non-distended, non-tender, hyperactive bowel sounds. Extremities: moderate edema BLE, in leg wraps Neuro: Alert and oriented x4, interactive DS: Data Data Completed and Pending Completed studies during hospitalization: Abdomen pelvis CT Abdomen US Pending studies at discharge: Pending at discharge 10/04/23 10:50 Surgical [PTH] Routine Labs on day of discharge: Labs from last 24 hours 10/05/23 10/04/23 10/03/23 09:45 12:06 10:08 WBC 3.6 L RBC 3.28 L Hgb 10.1 L Hct 33.0 L MCV 100.6 H MCH 30.8 MCHC 30.6 L RDW 18.7 H Plt Count 73 L
[2023-10-07 11:58] LABS: Alpha Fetoprotein Tumor Marker 4.2 ng/mL
[2023-10-10 11:45] LABS: Actin Antibody (IgG) <20 U (<20)
[2023-10-12 12:19] LABS: Mitochondrial (M2) Ab (IgG) <20.0 U
[2023-10-18 14:34] LABS: ALT 44 U/L (6-29); Alpha-2-Macroglobulin 191 mg/dL (106-279); Apolipoprotein A1 183 mg/dL (101-198); Fibrosis Score 0.28; Fibrosis Stage F1; GGT 64 U/L (3-70); Haptoglobin 133 mg/dL (43-212); Necroinflammat Act Grade A0-A1; Total Bilirubin 1.3 mg/dL (0.2-1.2)
== END 2023-10-05 15:55 | disposition home or self-care (01) ==
LOC: ANHED 17:09 → ANH2MED 10-03 07:26
PROVIDERS: Internal Medicine Gastroenterology; Nurse Practitioner Family; Student in an Organized Health Care Education/Training Program; Admitting Provider Hospitalist; Emergency Provider Physician Assistant; Visit Provider Nurse Practitioner Acute Care
PROC: 0DJD8ZZ Inspection of Lower Intestinal Tract, Via Natural or Artificial Opening Endoscopic (ICD-10-PCS; CPT 45378; principal; 2023-10-04 16:00)
DX: K92.2 Gastrointestinal hemorrhage, unspecified (principal); D12.0 Benign neoplasm of cecum; K64.8 Other hemorrhoids; D64.9 Anemia, unspecified; D69.6 Thrombocytopenia, unspecified; D61.818 Other pancytopenia; K76.0 Fatty (change of) liver, not elsewhere classified; Z79.01 Long term (current) use of anticoagulants; E53.8 Deficiency of other specified B group vitamins; Z86.718 Personal history of other venous thrombosis and embolism; Z86.711 Personal history of pulmonary embolism; K21.9 Gastro-esophageal reflux disease without esophagitis; I10 Essential (primary) hypertension; E03.9 Hypothyroidism, unspecified; E66.01 Morbid (severe) obesity due to excess calories; Z68.43 Body mass index [BMI] 50.0-59.9, adult; Z98.84 Bariatric surgery status
CPT/HCPCS: 45380; 36415; 74177; 76705; 80053; 80076; 81596; 82103; 82105; 82390; 82607; 82728; 83520; 83540; 83550; 83690; 83735; 85014; 85018; 85025; 85027; 85049; 85055; 85384; 85610; 85730; 86038; 86039; 86364; 86850; 86900; 86901; 87045; 87427; 87449; 88305; 93005; 96361; 96374; 96375; 99285; A9270; C9113; G0378; J2270; J2704; J3475; J7040; J7120; Q9967

== ENCOUNTER 2023-11-13 14:23 | Outpatient (CLI) | payer MEDICARE, SELFPAY ==
[2023-11-13 14:38] LABS: Hematocrit 39.8 % (37.0-47.0); Hemoglobin 12.2 g/dL (12.0-15.0); Mean Corpuscular HGB Conc 30.7 g/dl (32-36); Mean Corpuscular Hemoglobin 27.5 pg (26-34); Mean Corpuscular Volume 89.8 fl (80-100); Mean Platelet Volume 9.4 fl (7.4-10.4); Platelet Count Result 289 k/mm3 (150-375); Red Blood Count 4.43 M/mm3 (4.2-5.4); Red Cell Distribution Width 18.6 % (11.5-14.5); White Blood Count 8.1 K/mm3 (4.5-10.0)
[2023-11-13 16:44] LABS: Anion Gap 13 mmol/L (4-12); Blood Urea Nitrogen 5 mg/dL (7-17); Calcium 9.7 mg/dL (8.4-10.2); Carbon Dioxide 26 mmol/L (22-30); Chloride 100 mmol/L (98-107); Estimated Glomerular Filt Rate > 60; Glucose 95 mg/dL (65-110); Potassium 4.5 mmol/L (3.4-5.0); Sodium 139 mmol/L (137-145)
[2023-11-13 17:02] LABS: Iron 24 ug/dL (37-170); Percent Iron Saturation 7 % (20-50)
== END 2023-11-13 14:24 | disposition home or self-care (01) ==
LOC: ANHLAB 14:25
PROVIDERS: Visit Provider Internal Medicine Hematology & Oncology
DX: D64.9 Anemia, unspecified (principal); I82.4Y3 Acute embolism and thrombosis of unspecified deep veins of proximal lower extremity, bilateral
CPT/HCPCS: 36415; 80048; 82607; 82728; 83540; 83550; 85027

== ENCOUNTER 2024-01-10 12:54 | Inpatient (IN) | payer MEDICARE, SELFPAY ==
[2024-01-10 13:01] VITALS: BP 135/81; PULSE 73; RESP 16; TEMP 36.6; O2SAT 100
[2024-01-10 13:10] VITALS: BP 131/81; PULSE 72; RESP 18; TEMP 36.6; O2SAT 100
[2024-01-10 14:27] LABS: Basophils Percent Auto 0.4 % (0.2-1.2); Eosinophils Absolute Auto 0.2 K/mm3 (0-0.3); Hematocrit 25.3 % (37.0-47.0); Hemoglobin 8.1 g/dL (12.0-15.0); Immature Granulocyte Absolute 0.02 K/mm3 (0.00-0.031); Immature Granulocyte Percent A 0.4 % (0-0.5); Lymphocytes Absolute Auto 0.96 K/mm3 (0.9-3.2); Lymphocytes Percent Auto 18.3 % (18.3-44.2); Mean Corpuscular Hemoglobin 28.9 pg (26-34); Mean Corpuscular Volume 90.4 fl (80-100); Mean Platelet Volume 9.6 fl (7.4-10.4); Monocytes Absolute Auto 0.7 K/mm3 (0.1-0.6); Monocytes Percent Auto 13.5 % (2.6-8.5); Neutrophils Absolute Auto 3.4 K/mm3 (1.3-6.7); Neutrophils Percent Auto 64.4 % (45.5-73.1); Platelet Count Result 141 k/mm3 (150-375); White Blood Count 5.3 K/mm3 (4.5-10.0)
--- NOTE | 2024-01-10 14:28 | ED.GIBLEED ---
HPI - GI Bleed General Chief complaint: GI Bleed Stated complaint: rectal bleeding Time Seen by Provider: 01/10/24 14:09 Source: patient Mode of arrival: ambulatory Limitations: no limitations History of Present Illness HPI Narrative: 53 YEARS OLD FEMALE CAME TO THE EMERGENCY ROOM BY PRIVATE CAR COMPLAINING OF RECTAL BLEED, FRESH RED BRIGHT BLOOD WITH BOWEL MOVEMENTS, STARTED 5 DAYS AGO, GRADUALLY GETTING WORSE. CURRENTLY PATIENT COMPLAINING OF LIGHTHEADEDNESS, WEAKNESS AND FEELING LIKE GOING TO FAINT. HISTORY OF INTERMITTENT GI BLEED FOR THE LAST 5 YEARS. LAST HOSPITALIZATION OCTOBER 2023 FOR SIMILAR SYMPTOMS. HISTORY OF GI BLEED, PEPTIC ULCER DISEASE, HYPERTENSION, BLOOD TRANSFUSION Related Data Home Medications Medication Instructions Recorded Confirmed famotidine 20 mg tablet 20 mg PO BID 08/12/19 10/02/23 potassium chloride 10 mEq 10 meq PO DAILY 08/12/19 10/02/23 tablet,extended release zolpidem 5 mg tablet 10 mg PO HS 08/12/19 10/02/23 metoprolol succinate 25 mg 25 mg PO DAILY 10/13/19 10/02/23 tablet,extended release 24 hr ferrous sulfate 325 mg (65 mg 325 mg PO DAILY 12/02/19 10/02/23 iron) tablet furosemide 40 mg tablet 40 mg PO DAILY 12/02/19 10/02/23 omeprazole 40 mg capsule,delayed 40 mg PO DAILY 12/02/19 10/02/23 release amlodipine 5 mg tablet 5 mg PO DAILY 02/02/20 10/02/23 lisinopril 10 mg tablet 10 mg PO DAILY 10/02/23 10/02/23 oxycodone 10 mg tablet 10 mg PO Q8H PRN Pain 10/02/23 10/02/23 rivaroxaban 20 mg tablet (Xarelto) 20 mg PO QHS 10/02/23 10/02/23 Allergies Allergy/AdvReac Type Severity Reaction Status Date / Time No Known Allergies Allergy Verified 10/04/23 09:46 Review of Systems Review of Systems: All systems reviewed & are unremarkable except as noted in HPI and below PMFSH Past Medical History Medical History Anemia History of several blood transfusions. B12 deficiency Chronic acquired lymphedema Chronic anticoagulation Due to history of recurrent DVT and pulmonary embolism. IVC filter in place. Gastroesophageal reflux GI bleed (~04/2019) Secondary to peptic ulcers. Glaucoma History of cellulitis History of deep venous thrombosis Hx pulmonary embolism Hypertension Hypothyroidism No longer on medication. Osteoarthritis Peptic ulcer disease Pulmonary embolism (~04/2018) Right leg DVT Extensive right lower extremity DVT on ultrasound dated 08/26/2019. Surgical History Surgical History History of 3 sections History of dilation and curettage History of endometrial ablation History of Adrienne-en-Y gastric bypass (~2009) History of tubal ligation Presence of IVC filter (~11/2018) Performed at [facility]. Family History Family History Mother Hypertension Dementia Father Hypertension Social History Social History Social History: The patient is and lives with her daughter. I believe her grandson lives next door. 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 Lifelong nonsmoker. She drinks perhaps 2 alcoholic beverages a week. No illicit substance use. She designates her son, Jose Willis, as her surrogate decision maker and she wishes to be a full code. Smoking status: Never smoker Alcohol intake: current Drinks per week: 3 Substance use: never Do You Feel Safe in your Home?: Yes Lack of Transportation: No Lack of Food: Never True Current Housing: I Have Housing Concerned About Future Housing: No Difficulty Paying Gas/Electric Bills: No Difficulty Paying for Meds: No Currently Unemployed: No Education: Bachelor's Degree Difficulty w/ Childcare or Family Care: No Living arrangements: with family Occupation/Education: retired Gender identity (if verbalized
[2024-01-10 14:39] LABS: Alanine Aminotransferase 20 U/L (6-35); Albumin Level 3.2 g/dL (3.5-5.1); Alkaline Phosphatase 107 U/L (38-126); Anion Gap 6 mmol/L (4-12); Aspartate Amino Transferase 40 U/L (14-36); Bilirubin,Total 0.7 mg/dL (0.2-1.3); Blood Urea Nitrogen 17 mg/dL (7-17); Calcium 8.6 mg/dL (8.4-10.2); Carbon Dioxide 24 mmol/L (22-30); Chloride 109 mmol/L (98-107); Estimated Glomerular Filt Rate > 60; Glucose 93 mg/dL (65-110); INR 1.3; Potassium 3.8 mmol/L (3.4-5.0); Prothrombin Time 16.4 Seconds (11.1-14.7); Sodium 139 mmol/L (137-145)
[2024-01-10 14:40] LABS: Partial Thromboplastin Time 30.9 Seconds (22.3-36.8)
[2024-01-10 14:56] VITALS: BP 110/73; PULSE 74; RESP 18; TEMP 36.3; O2SAT 100
[2024-01-10 15:04] LABS: Platelet Estimate Slightly Decreased (Adequate); Schistocytes None Seen
[2024-01-10 15:05] LABS: Anisocytosis 3+
[2024-01-10 15:06] LABS: Polychromasia 1+
--- NOTE | 2024-01-10 16:12 | PM.IMHP ---
H&P: HPI History of Present Illness Date/Time: 01/10/24 16:12 Chief Complaint: Rectal Bleeding Narrative: 53 y/o F presents here with anemia, chronic acquired lymphedema, B12 deficiency, GERD, GI bleed secondary to PUD (2019), DVT and PE (on Xarelto), HTN, hypothyroidism (not currently on medication), and osteoarthritis. The patient presents here from home for further evaluation of bright red blood per rectum for the past 5 days. The rectal bleeding is accompanied by weakness, lightheadedness, and intermittent presyncope sensation. States she has felt a little unsteady on her feet due to the weakness, she utilizes a walker intermittently at baseline. She denies accompanying abdominal pain, nausea, vomiting, diarrhea, constipation, fever, or chills. She was taken off of Xarelto in October of 2023, has IVC filter in place. She was admitted in October of 2023 for a GI bleed at [place] and has also had a bleeding gastric ulcer in 2019. Colonoscopy done during most recent admission showed colonic polyps and internal hemorrhoids (no active bleeding). Last EGD done in August of 2023, no abnormalities, and was done at [facility]. Initial VS at presentation: 97.8? F, HR 73, RR 16, 135/81, and 100% on RA. ED workup showed: No leukocytosis, hemoglobin 8.1 (previously 12.2 on 11/13/2023), INR 1.3, creatinine 0.7 and GFR >60. Review of Systems Review of Systems: All systems reviewed & are unremarkable except as noted in HPI and below PMFSH Past Medical History Medical History (Updated 01/10/24 @ 17:25 by Raine Miles APRN) Anemia History of several blood transfusions. B12 deficiency Chronic acquired lymphedema Gastroesophageal reflux GI bleed (~04/2019) Secondary to peptic ulcers. Glaucoma History of cellulitis History of deep venous thrombosis Hx pulmonary embolism Hypertension Hypothyroidism No longer on medication. Osteoarthritis Peptic ulcer disease Pulmonary embolism (~04/2018) Right leg DVT Extensive right lower extremity DVT on ultrasound dated 08/26/2019. Surgical History Surgical History (Updated 01/10/24 @ 17:25 by Raine Miles APRN) History of 3 sections History of dilation and curettage History of endometrial ablation History of Adrienne-en-Y gastric bypass (~2009) History of tubal ligation Presence of IVC filter (~11/2018) Performed at [facility]. Family History Family History Mother Hypertension Dementia Father Hypertension Social History Social History Social History: The patient is and lives with her daughter. I believe her grandson lives next door. 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 Lifelong nonsmoker. She drinks perhaps 2 alcoholic beverages a week. No illicit substance use. She designates her son, Jose Willis, as her surrogate decision maker and she wishes to be a full code. Smoking status: Never smoker Alcohol intake: current Drinks per week: 3 Substance use: never Do You Feel Safe in your Home?: Yes Lack of Transportation: No Lack of Food: Never True Current Housing: I Have Housing Concerned About Future Housing: No Difficulty Paying Gas/Electric Bills: No Difficulty Paying for Meds: No Currently Unemployed: No Education: Bachelor's Degree Difficulty w/ Childcare or Family Care: No Living arrangements: with family Occupation/Education: retired Gender identity (if verbalized by the patient): Female Spiritual care concerns: No Agree to blood products: Yes Meds Home Medications and Allergies Home Medications Medication Instructions Recorded Confirmed Type famotidine 20 mg tablet 20 mg PO BID 08/12/19 01/10/24 History potassium chloride 10 mEq 10 meq PO DAILY 08/12/19 01/10/24 History tablet,extended release zolpidem 5 mg tablet 10 mg PO HS 08/12/1901/09
[2024-01-10] MEDS: PANTOPRAZOLE SODIUM IV 40 MG VIAL IV PUSH (16:26)
--- NOTE | 2024-01-10 17:33 | ADMGEN ---
This patient, Tiarra Addison, was admitted to Medical Room 340-01. Patient/family oriented to hospital policies and general routines including ID bracelet, bed and alarms, visiting hours, pain management, procedures, bathroom and other care routines, personal items, smoking policy, room service/diet, and visiting hours. Information on how to activate the Rapid Response Team has been discussed. Patient/Family are encouraged to report perceived risks to care and to ask questions if they do not understand what they are told or what they should do.
[2024-01-10 17:34] VITALS: BMI 42.7
[2024-01-10] MEDS: SODIUM CHLORIDE 0.9% IV 1,000 ML 125 ML IV CONT (17:42)
[2024-01-10 18:20] VITALS: BMI 43.7
[2024-01-10 19:05] LABS: Hematocrit 25.3 % (37.0-47.0); Hemoglobin 7.8 g/dL (12.0-15.0)
[2024-01-10 22:13] VITALS: BP 105/47; PULSE 75; RESP 20; TEMP 36.6; O2SAT 100
[2024-01-10] MEDS: oxyCODONE HCL (*CRX) 5 MG TAB IR 10 MG PO (22:20)
[2024-01-10] MEDS: ZOLPIDEM TARTRATE (*CRX) 5 MG TABLET 10 MG PO (22:21)
[2024-01-11 05:48] LABS: Hematocrit 26.2 % (37.0-47.0); Hemoglobin 8.1 g/dL (12.0-15.0)
[2024-01-11 06:00] VITALS: BP 101/57; PULSE 75; RESP 20; TEMP 36.2; O2SAT 100
[2024-01-11 06:02] LABS: Anion Gap 7 mmol/L (4-12); Blood Urea Nitrogen 16 mg/dL (7-17); Calcium 8.5 mg/dL (8.4-10.2); Carbon Dioxide 24 mmol/L (22-30); Chloride 107 mmol/L (98-107); Estimated CRCL calculation 97 ml/min; Estimated Glomerular Filt Rate > 60; Glucose 88 mg/dL (65-110); Potassium 3.9 mmol/L (3.4-5.0); Sodium 138 mmol/L (137-145)
--- NOTE | 2024-01-11 06:48 | PC.NURSE ---
Vascular access notified regarding midline placement order. Order printed and placed on patient chart.
[2024-01-11] MEDS: LIDOCAINE HCL 1% LOCAL INJ 2 ML AMPUL 5 ML INFILTRATE (08:05)
[2024-01-11 08:42] VITALS: PULSE 68
[2024-01-11] MEDS: METOPROLOL SUCCINATE EXT REL 25 MG TABCR PO (08:42)
[2024-01-11] MEDS: FOLIC ACID 1 MG TABLET PO (08:42)
[2024-01-11] MEDS: FERROUS SULFATE 325 MG TABLET DR PO (08:42)
[2024-01-11] MEDS: oxyCODONE HCL (*CRX) 5 MG TAB IR 10 MG PO ×2 (08:43→14:26)
[2024-01-11] MEDS: PANTOPRAZOLE 40 MG TABLET PO ×2 (08:43→17:02)
[2024-01-11] MEDS: POTASSIUM CHLORIDE 10 MEQ ER TABLET PO (08:43)
[2024-01-11] MEDS: lisinopriL 10 MG TABLET PO (08:43)
[2024-01-11] MEDS: BETAMETHASONE/CLOTRIMAZOLE CREAM 15 GM TUBE 1 APPLIC TOPICAL ×2 (08:51→17:03)
--- NOTE | 2024-01-11 08:59 | PM.IMPN ---
Progress Note: A&P Assessment and Plan (1) GI bleed: Qualifiers: GI bleed type/associated pathology: anorectal hemorrhage Qualified Code(s): K62.5 - Hemorrhage of anus and rectum Code(s): K92.2 - Gastrointestinal hemorrhage, unspecified Status: Acute Assessment and Plan: - CARIDAD in ED was pink-tinged, no active bleeding noted - Hgb 8.1, previously 12.2 on 11/13/2023 - GI consulted, awaiting recs - colonoscopy, previous (10/04/2023): colonic polyps and internal hemorrhoids without active bleeding. - start PPI IVP and multivitamin - trend H&H (2) Anemia: Qualifiers: Anemia type: other cause Qualified Code(s): D62 - Acute posthemorrhagic anemia Code(s): D64.9 - Anemia, unspecified Status: Acute Assessment and Plan: - Hgb 8.1, MCHC and MCV within normal limits - hx of B12 deficiency anemia - currently complicated by GI bleed - trend H&H - continue vitamin supplementation - transfuse if less than 7 (3) Hypertension: Qualifiers: Hypertension type: essential hypertension Qualified Code(s): I10 - Essential (primary) hypertension Code(s): I10 - Essential (primary) hypertension Status: Chronic Assessment and Plan: - chronic, currently 110/73 - home medications: continue amlodipine 5 mg, lisinopril 10 mg - monitor Plan Diet: Clear liquid GI Prophylaxis: not currently indicated DVT Prophylaxis: SCDs Lines: peripheral Code Status: full code Time Spent With Patient Time with patient: Greater than 35 minutes Subjective Date/time seen: 01/11/24 08:59 Interval history: Rectal Bleeding Narrative retried from H/P: 53 y/o F presents here with anemia, chronic acquired lymphedema, B12 deficiency, GERD, GI bleed secondary to PUD (2019), DVT and PE (on Xarelto), HTN, hypothyroidism (not currently on medication), and osteoarthritis. The patient presents here from home for further evaluation of bright red blood per rectum for the past 5 days. The rectal bleeding is accompanied by weakness, lightheadedness, and intermittent presyncope sensation. States she has felt a little unsteady on her feet due to the weakness, she utilizes a walker intermittently at baseline. She denies accompanying abdominal pain, nausea, vomiting, diarrhea, constipation, fever, or chills. She was taken off of Xarelto in October of 2023, has IVC filter in place. She was admitted in October of 2023 for a GI bleed at [place] and has also had a bleeding gastric ulcer in 2019. Colonoscopy done during most recent admission showed colonic polyps and internal hemorrhoids (no active bleeding). Last EGD done in August of 2023, no abnormalities, and was done at [facility]. Initial VS at presentation: 97.8? F, HR 73, RR 16, 135/81, and 100% on RA. ED workup showed: No leukocytosis, hemoglobin 8.1 (previously 12.2 on 11/13/2023), INR 1.3, creatinine 0.7 and GFR >60. 10/5- pt is seen and examined this am. She is doing well- reports no blood in stool- but no BM. no dizziness. awaiting GI consult. Review of Systems Review of Systems: All systems reviewed & are unremarkable except as noted in HPI and below Exam Const: General: comfortable and no acute distress Other: , female, nontoxic appearance HENMT: Face/Nose/Sinus: Normal nares present Mouth: Yes moist mucous membranes Eyes: General: appearance normal, both eyes and all related structures Sclera: sclerae normal Pupils: Equal, round and reactive pupils present EOM: EOMs intact bilaterally Resp: Effort & Inspection: normal respiratory effort Auscultation: clear to auscultation bilaterally Cardio: Rate: regular rate Rhythm: regular rhythm Other: S1-S2 present without murmur, rub, ectopy GI: Other: Abdomen soft, nondistended, nontender. Normoactive bowel sounds in all quadrants. Skin: General skin exam: normal color and no rashes or lesions noted Wounds: no wo
[2024-01-11 09:10] VITALS: O2SAT 100
--- NOTE | 2024-01-11 10:00 | PC.NURSE ---
Patient standing at sink, with walker, washing her face. She states her knee is giving her trouble this morning. Pain medication given. Patient to get midline this AM. She has no other complaints at this time. UPDATE: 1000-midline pulled 8mL of blood to waste then would not fill tube for lab. Lab present in room and aguilar blood manually.
[2024-01-11 10:04] LABS: Hematocrit 23.8 % (37.0-47.0); Hemoglobin 7.4 g/dL (12.0-15.0)
[2024-01-11] MEDS: SALINE LOCK FLUSH 10 ML IV PUSH ×3 (13:14→23:51)
[2024-01-11 13:56] VITALS: BP 107/58; PULSE 64; RESP 17; TEMP 36.3; O2SAT 100
--- NOTE | 2024-01-11 15:44 | WPDGICN ---
Assessment and Plan Assessment and plan (1) Bright red rectal bleeding: Code(s): K62.5 - Hemorrhage of anus and rectum Status: Acute Assessment and Plan: recent colonoscopy when had similar presentation earlier this year no findings, no signs of bleeding she had gastric bypass and chronic anemia with possible malabsorption we can do EGD Saturday to assess if ulcer, etc she is not longer using blood thinner (2) GI bleed: Qualifiers: GI bleed type/associated pathology: anorectal hemorrhage Qualified Code(s): K62.5 - Hemorrhage of anus and rectum Code(s): K92.2 - Gastrointestinal hemorrhage, unspecified Status: Acute Assessment and Plan: iv protonix egd saturday monitor for more signs of bleeding (3) Acute on chronic anemia: Code(s): D64.9 - Anemia, unspecified Status: Acute Assessment and Plan: monitor no need of blood transfusion this time but trend h/h (4) Thrombocytopenia: Code(s): D69.6 - Thrombocytopenia, unspecified Status: Acute (5) Hepatic steatosis: Code(s): K76.0 - Fatty (change of) liver, not elsewhere classified Status: Acute Assessment and Plan: noted last time, she is morbidly obese (6) Obesity, morbid, BMI 40.0-49.9: Code(s): E66.01 - Morbid (severe) obesity due to excess calories Status: Acute (7) History of Adrienne-en-Y gastric bypass: Onset Date: ~2009 Code(s): Z98.84 - Bariatric surgery status Status: Acute GI Consult Note Consult date/time: 01/11/24 15:44 Reason for consult: acute on chronic anemia HPI: Tiarra Addison is a 53 year old female with morbid obesity status post gastric bypass surgery in 1999. Patient has a history of recurrent bilateral lower extremity DVT and pulmonary embolism status post IVC filter placement in February of 2019 used to be on Xarelto but discontinued October 2023 after symptomatic anemia. Most recent hospitalization 09/2023 with rectal bleeding, colonoscopy here showed small colon polyps with internal hemorrhoids, no avm, no signs of bleeding. She had EGD previous month at another hospital and apparently normal. Here with 5 days of brbpr, she was feeling weak and came to hospital. She is not taking blood thinner, using narcotics but denies nsaid's. She is comfortable. Hgb 8, platelets 140 (last hospitalization evaluated by hematology), last CT scan showed fatty liver. Review of Systems Constitutional: Constitutional: Reports weakness Eyes: Eyes: Denies blurry vision ENT: Reports Normal hearing present Cardiovascular: Cardiovascular: Denies chest pain Respiratory: Respiratory: Denies cough Gastrointestinal: Gastrointestinal: Reports hematochezia Genitourinary: Genitourinary: Denies hematuria Musculoskeletal: Musculoskeletal: Reports arthralgias (chronic, both knees) and Denies neck pain Integumentary/Breasts: Skin/Breast: Denies rash Neurologic: Denies confusion Psychiatric: Psychiatric: Denies confusion [facility] Past Medical History Medical History (Updated 01/11/24 @ 15:55 by Jose Hernandez MD) Acute on chronic anemia Anemia History of several blood transfusions. B12 deficiency Chronic acquired lymphedema Gastroesophageal reflux GI bleed (~04/2019) Secondary to peptic ulcers. Glaucoma History of cellulitis History of deep venous thrombosis Hx pulmonary embolism Hypertension Hypothyroidism No longer on medication. Obesity, morbid, BMI 40.0-49.9 Osteoarthritis Peptic ulcer disease Pulmonary embolism (~04/2018) Right leg DVT Extensive right lower extremity DVT on ultrasound dated 08/26/2019. Surgical History Surgical History (Updated 01/11/24 @ 15:55 by Jose Hernandez MD) History of 3 sections History of dilation and curettage History of endometrial ablation History of Adrienne-en-Y gastric bypass (~2009) History of tubal ligation Presence of IVC filter (~11/2018) Perf
[2024-01-11] MEDS: SODIUM CHLORIDE 0.9% IV 1,000 ML 100 ML IV CONT (17:06)
[2024-01-11 21:51] VITALS: BP 106/60; PULSE 65; RESP 20; TEMP 36.3; O2SAT 100
[2024-01-11] MEDS: ZOLPIDEM TARTRATE (*CRX) 5 MG TABLET 10 MG PO (23:45)
[2024-01-12 00:03] VITALS: BP 117/72
[2024-01-12] MEDS: SODIUM CHLORIDE 0.9% IV 1,000 ML 100 ML IV CONT (03:08)
[2024-01-12 06:00] VITALS: BP 123/70; PULSE 66; RESP 20; TEMP 36.3; O2SAT 100
[2024-01-12] MEDS: SALINE LOCK FLUSH 20 ML IV PUSH (06:05)
[2024-01-12] MEDS: SALINE LOCK FLUSH 10 ML IV PUSH ×3 (06:05→23:47)
[2024-01-12 06:49] LABS: Hematocrit 22.6 % (37.0-47.0); Mean Corpuscular Hemoglobin 28.5 pg (26-34); Mean Corpuscular Volume 91.9 fl (80-100); Mean Platelet Volume 10.1 fl (7.4-10.4); Platelet Count Result 147 k/mm3 (150-375); Red Blood Count 2.46 M/mm3 (4.2-5.4); Red Cell Distribution Width 24.5 % (11.5-14.5); White Blood Count 4.6 K/mm3 (4.5-10.0)
[2024-01-12] MEDS: oxyCODONE HCL (*CRX) 5 MG TAB IR 10 MG PO ×3 (06:50→23:47)
[2024-01-12 06:59] LABS: Anion Gap 4 mmol/L (4-12); Blood Urea Nitrogen 13 mg/dL (7-17); Calcium 7.8 mg/dL (8.4-10.2); Carbon Dioxide 22 mmol/L (22-30); Chloride 112 mmol/L (98-107); Estimated CRCL calculation 109 ml/min; Estimated Glomerular Filt Rate > 60; Glucose 82 mg/dL (65-110); Potassium 4.4 mmol/L (3.4-5.0); Sodium 138 mmol/L (137-145)
[2024-01-12 08:45] VITALS: BP 100/52; PULSE 73; RESP 18
[2024-01-12] MEDS: POTASSIUM CHLORIDE 10 MEQ ER TABLET PO (09:31)
[2024-01-12] MEDS: FOLIC ACID 1 MG TABLET PO (09:31)
--- NOTE | 2024-01-12 09:31 | PM.IMPN ---
Progress Note: A&P Assessment and Plan (1) GI bleed: Qualifiers: GI bleed type/associated pathology: anorectal hemorrhage Qualified Code(s): K62.5 - Hemorrhage of anus and rectum Code(s): K92.2 - Gastrointestinal hemorrhage, unspecified Status: Acute Assessment and Plan: - CARIDAD in ED was pink-tinged, no active bleeding noted - Hgb 8.1, previously 12.2 on 11/13/2023 - GI consulted, awaiting recs - colonoscopy, previous (10/04/2023): colonic polyps and internal hemorrhoids without active bleeding. - start PPI IVP and multivitamin - trend H&H - hg 7- could be due to Increased IV hydration- discussed with pt-she had BM and no active blood, no dizziness-will hold on on transfusion - if HG decreases any lower- will transfuse- pt is aware and agreeable (2) Anemia: Qualifiers: Anemia type: other cause Qualified Code(s): D62 - Acute posthemorrhagic anemia Code(s): D64.9 - Anemia, unspecified Status: Acute Assessment and Plan: - Hgb 8.1, MCHC and MCV within normal limits - hx of B12 deficiency anemia - currently complicated by GI bleed - trend H&H - continue vitamin supplementation - transfuse if less than 7 (3) Hypertension: Qualifiers: Hypertension type: essential hypertension Qualified Code(s): I10 - Essential (primary) hypertension Code(s): I10 - Essential (primary) hypertension Status: Chronic Assessment and Plan: - chronic, currently 110/73 - home medications: continue amlodipine 5 mg, lisinopril 10 mg - monitor Plan Diet: Clear liquid GI Prophylaxis: not currently indicated DVT Prophylaxis: SCDs Lines: peripheral Code Status: full code Time Spent With Patient Time with patient: Greater than 35 minutes Subjective Date/time seen: 01/12/24 09:31 Interval history: Rectal Bleeding Narrative retried from H/P: 53 y/o F presents here with anemia, chronic acquired lymphedema, B12 deficiency, GERD, GI bleed secondary to PUD (2019), DVT and PE (on Xarelto), HTN, hypothyroidism (not currently on medication), and osteoarthritis. The patient presents here from home for further evaluation of bright red blood per rectum for the past 5 days. The rectal bleeding is accompanied by weakness, lightheadedness, and intermittent presyncope sensation. States she has felt a little unsteady on her feet due to the weakness, she utilizes a walker intermittently at baseline. She denies accompanying abdominal pain, nausea, vomiting, diarrhea, constipation, fever, or chills. She was taken off of Xarelto in October of 2023, has IVC filter in place. She was admitted in October of 2023 for a GI bleed at [facility] and has also had a bleeding gastric ulcer in 2019. Colonoscopy done during most recent admission showed colonic polyps and internal hemorrhoids (no active bleeding). Last EGD done in August of 2023, no abnormalities, and was done at [facility]. Initial VS at presentation: 97.8? F, HR 73, RR 16, 135/81, and 100% on RA. ED workup showed: No leukocytosis, hemoglobin 8.1 (previously 12.2 on 11/13/2023), INR 1.3, creatinine 0.7 and GFR >60. 10- pt is seen and examined this am. She is doing well- reports no blood in stool- but no BM. no dizziness. awaiting GI consult. 01/11- pt is seen and examined. GI consulted- EGD saturday Review of Systems Review of Systems: All systems reviewed & are unremarkable except as noted in HPI and below Cardiovascular: Cardiovascular: Denies chest pain Respiratory: Respiratory: Denies chest congestion and Denies cough Gastrointestinal: Gastrointestinal: Denies abdominal pain Exam Const: General: comfortable and no acute distress Other: , female, nontoxic appearance HENMT: Face/Nose/Sinus: Normal nares present Mouth: Yes moist mucous membranes Eyes: General: appearance normal, both eyes and all related structures Sclera: sclerae normal Pupils: Equal, round and reactive
[2024-01-12] MEDS: FERROUS SULFATE 325 MG TABLET DR PO (09:32)
[2024-01-12] MEDS: PANTOPRAZOLE 40 MG TABLET PO ×2 (09:32→17:12)
[2024-01-12] MEDS: BETAMETHASONE/CLOTRIMAZOLE CREAM 15 GM TUBE 1 APPLIC TOPICAL ×2 (09:35→17:12)
[2024-01-12 10:14] LABS: Add Urine Microscopic? NO; Appearance Urine Clear (Clear); Bilirubin Urine Negative (Negative); Blood Urine Negative (Negative); Color Urine Yellow (Yellow); Glucose Urine UA Negative (Negative); Ketones Urine Negative (Negative); Leukocyte Esterase Ur Negative LEU/UL (Negative); Nitrate Urine Negative (Negative); Protein Urine Negative (Negative); Specific Grav Ur 1.014 (1.001-1.035); Urobilinogen Urine 0.2 mg/dL (<2.0); pH Urine 5.5 (5.0-9.0)
--- NOTE | 2024-01-12 10:49 | PC.NURSE ---
Blood pressure 100/52 at 0845, per pt BP has been low. Hospitalist notified and metoprolol and lisinopril not administered for am dose.
--- NOTE | 2024-01-12 11:12 | WPDGIPROGNO ---
Progress Note: A&P Assessment and Plan (1) Acute on chronic anemia: Code(s): D64.9 - Anemia, unspecified Status: Acute Assessment and Plan: partially from previous gastric surgery but will assess with egd, also flexible sigmoidoscopy if negative then follow-up with hand candy dipper (also noted mild thrombocytopenia) (2) Bright red rectal bleeding: Code(s): K62.5 - Hemorrhage of anus and rectum Status: Acute Assessment and Plan: scopes tomorrow (3) History of Adrienne-en-Y gastric bypass: Onset Date: ~2009 Code(s): Z98.84 - Bariatric surgery status Status: Acute (4) Obesity, morbid, BMI 40.0-49.9: Code(s): E66.01 - Morbid (severe) obesity due to excess calories Status: Acute (5) Hepatic steatosis: Code(s): K76.0 - Fatty (change of) liver, not elsewhere classified Status: Acute Subjective Date/time seen: 01/12/24 11:12 Interval history: comfortable, no more signs of bleeding Review of Systems Review of Systems: All systems reviewed & are unremarkable except as noted in HPI and below Exam Const: General: comfortable and no acute distress Other: obese HENMT: Face/Nose/Sinus: Normal nares present Eyes: General: appearance normal, both eyes and all related structures Neck: Neck: supple Resp: Auscultation: clear to auscultation bilaterally Cardio: Rate: regular rate Rhythm: regular rhythm GI: Inspection: non-distended GI Palp: Yes Soft to palpation and No Tenderness to palpation present (GI) Auscultation: normal bowel sounds Skin: General skin exam: normal color Neuro: Speech: normal speech Motor exam (neuro): 5/5 motor strength present throughout Extrem: General: normal to inspection Psych: Mental Status: mental status grossly normal Objective Data Vital Signs Vital Signs: Vital Signs - 24 hr 01/11/24 13:56 01/11/24 19:47 01/11/24 21:51 Temperature 97.3 F L 97.3 F L Pulse Rate 64 65 Respiratory Rate 17 20 Blood Pressure 107/58 L 106/60 Pulse Oximetry 100 100 Oxygen Delivery Room Air 01/12/24 00:03 01/12/24 06:00 01/12/24 08:45 Temperature 97.3 F L Pulse Rate 66 73 Respiratory Rate 20 18 Blood Pressure 117/72 123/70 100/52 L Pulse Oximetry 100 Oxygen Delivery Intake/Output Intake/Output: Intake & Output 01/09/24 01/10/24 01/11/24 01/12/24 23:59 23:59 23:59 23:59 Intake Total 307.5 2042.5 1420 Output Total 200 1100 200 Balance 107.5 942.5 1220 Meds/Results Medications: Active Medications Generic Name Dose Route Start Last Admin Trade Name Freq PRN Reason Stop Dose Admin Acetaminophen 650 mg 01/10/24 15:54 Acetaminophen 325 Mg Tablet PO Q4H PRN Mild Pain (1-3) or Fever Clotrimazole 1 applic 01/11/24 09:00 01/12/24 09:35 Betamethasone/Clotrimazole Cream 15 Gm Tube TOPICAL 1 applic BID [facility] Administration Cyanocobalamin 1,000 mcg 02/11/24 09:00 Cyanocobalamin Inj 1,000 Mcg/Ml Vial IM MONTHLY [facility] Ferrous Sulfate 325 mg 01/11/24 09:00 01/12/24 09:32 Ferrous Sulfate [address] PO 325 mg DAILY [facility] Administration Folic Acid 1 mg 01/11/24 09:00 01/12/24 09:31 Folic Acid 1 Mg Tablet PO 1 mg DAILY [facility] Administration Sodium Chloride 1,000 mls @ 100 mls/hr 01/10/24 15:55 01/12/24 03:08 Normal Saline Iv IV CONT 100 mls/hr .Q10H [facility] Administration Lisinopril 10 mg 01/11/24 09:00 01/12/24 10:48 Lisinopril 10 Mg Tablet PO Not Given DAILY [facility] Metoprolol Succinate 25 mg 01/11/24 09:00 01/12/24 10:48 Metoprolol Succinate Ext Rel 25 Mg Tabcr PO Not Given DAILY [facility] Oxycodone HCl 10 mg 01/10/24 21:32 01/12/24 06:50 Oxycodone Hcl (*Crx) 5 Mg Tab Ir PO 10 mg Q6H PRN Administration PAIN RATED 7-10 Pantoprazole Sodium 40 mg 01/11/24 09:00 01/12/24 09:32 Pantoprazole 40 Mg Tablet PO 40 mg BID [facility] Administration Potassium Chloride 10 meq 01/11/24 0
[2024-01-12 14:00] VITALS: BP 109/62; PULSE 76; RESP 16; TEMP 36.6; O2SAT 100
[2024-01-12] MEDS: SODIUM CHLORIDE 0.9% IV 1,000 ML 75 ML IV CONT (15:00)
[2024-01-12] MEDS: BISACODYL 5 MG TABLET EC 20 MG PO (17:12)
[2024-01-12] MEDS: MAGNESIUM CITRATE 300 ML BTL PO (17:13)
[2024-01-12 20:06] VITALS: BP 93/54; PULSE 73; RESP 18; TEMP 36.6; O2SAT 100
[2024-01-12] MEDS: ZOLPIDEM TARTRATE (*CRX) 5 MG TABLET 10 MG PO (23:46)
[2024-01-13] VITALS (7 sets, daily range): BP systolic 92–133; BP diastolic 42–82; PULSE 68–89; RESP 13–22; TEMP 34.7–36.9; O2SAT 99–100
[2024-01-13 06:10] LABS: Hematocrit 24.4 % (37.0-47.0); Hemoglobin 7.4 g/dL (12.0-15.0); Mean Corpuscular HGB Conc 30.3 g/dl (32-36); Mean Corpuscular Volume 92.4 fl (80-100); Mean Platelet Volume 9.6 fl (7.4-10.4); Platelet Count Result 176 k/mm3 (150-375); Red Blood Count 2.64 M/mm3 (4.2-5.4); Red Cell Distribution Width 24.1 % (11.5-14.5); White Blood Count 4.8 K/mm3 (4.5-10.0)
[2024-01-13 06:28] LABS: Anion Gap 4 mmol/L (4-12); Blood Urea Nitrogen 9 mg/dL (7-17); Calcium 8.4 mg/dL (8.4-10.2); Carbon Dioxide 23 mmol/L (22-30); Chloride 112 mmol/L (98-107); Estimated CRCL calculation 97 ml/min; Estimated Glomerular Filt Rate > 60; Glucose 80 mg/dL (65-110); Potassium 4.1 mmol/L (3.4-5.0); Sodium 139 mmol/L (137-145)
--- NOTE | 2024-01-13 09:23 | PM.IMPN ---
Progress Note: A&P Assessment and Plan (1) Acute on chronic anemia: Code(s): D64.9 - Anemia, unspecified Status: Acute Assessment and Plan: Stable/improved hgb at 7.4 today. Denies blood in BM overnight. Breathing easily. - GI consulted and plan for egd and sigmoidoscopy today. (2) Bright red rectal bleeding: Code(s): K62.5 - Hemorrhage of anus and rectum Status: Acute Assessment and Plan: - No further bleeding, sigmoidoscopy today. (3) History of Adrienne-en-Y gastric bypass: Onset Date: ~2009 Code(s): Z98.84 - Bariatric surgery status Status: Acute (4) Obesity, morbid, BMI 40.0-49.9: Code(s): E66.01 - Morbid (severe) obesity due to excess calories Status: Acute (5) Hepatic steatosis: Code(s): K76.0 - Fatty (change of) liver, not elsewhere classified Status: Acute (6) Hypertension: Qualifiers: Hypertension type: essential hypertension Qualified Code(s): I10 - Essential (primary) hypertension Code(s): I10 - Essential (primary) hypertension Status: Chronic Assessment and Plan: Resume home medications post procedurally. Plan Tiarra is doing well today with stable hgb. Further investigation with EGD/Sigmoidoscopy today. Pending the results of those and further recommendations from GI, likely discharge tomorrow if stable and doing well. Time Spent With Patient Time with patient: 25 - 35 minutes Subjective Date/time seen: 01/13/24 09:23 Interval history: Tiarra states no further blood in bowel movements. No abdominal pain, no shortness of breath or palpitations. Review of Systems Review of Systems: All systems reviewed & are unremarkable except as noted in HPI and below Exam Narrative: GENERAL APPEARANCE: Appears to be in no acute distress. HEAD: normocephalic atraumatic ENT: Hearing grossly intact, no nasal discharge NECK: Neck supple, trachea midline. CARDIAC: Normal S1/S2. Rhythm is regular. No murmurs, rubs, or gallops. No cyanosis or pallor. Extremities are warm and well perfused. LUNGS: Clear to auscultation without rales, rhonchi, wheezing or diminished breath sounds. Respirations even and unlabored. ABDOMEN: BS positive x 4 quadrants. Obese. Soft, nondistended, nontender. No guarding or rebound. MSK: No joint tenderness/swelling, fair strength in all extremities. PERIPHERAL VASCULAR: Peripheral pulses palpable. Normal perfusion, cap refill <2 seconds. NEURO: Follows commands. No focal deficits. SKIN: [place] without lesions or eruptions. PSYCH: Stable, no paranoia or delusional thinking. Objective Data Vital Signs Vital Signs: Vital Signs - 24 hr 01/12/24 09:35 01/12/24 14:00 01/12/24 20:06 Temperature 97.9 F 98 F Pulse Rate 76 73 Respiratory Rate 16 18 Blood Pressure 109/62 93/54 L Pulse Oximetry 100 100 Oxygen Delivery Room Air 01/12/24 20:00 01/13/24 04:23 Temperature 98.1 F Pulse Rate 77 Respiratory Rate 16 Blood Pressure 113/69 Pulse Oximetry 99 Oxygen Delivery Room Air Intake/Output Intake/Output: Intake & Output 01/10/24 01/11/24 01/12/24 01/13/24 23:59 23:59 23:59 23:59 Intake Total 307.5 2042.5 1840 200 Output Total 200 1100 300 Balance 107.5 942.5 1540 200 Meds/Results Medications: Active Medications Generic Name Dose Route Start Last Admin Trade Name Freq PRN Reason Stop Dose Admin Acetaminophen 650 mg 01/10/24 15:54 Acetaminophen 325 Mg Tablet PO Q4H PRN Mild Pain (1-3) or Fever Clotrimazole 1 applic 01/11/24 09:00 01/12/24 17:12 Betamethasone/Clotrimazole Cream 15 Gm Tube TOPICAL 1 applic BID [facility] Administration Cyanocobalamin 1,000 mcg 02/11/24 09:00 Cyanocobalamin Inj 1,000 Mcg/Ml Vial IM MONTHLY [facility] Ferrous Sulfate 325 mg 01/11/24 09:00 01/12/24 09:32 Ferrous Sulfate [address] PO 325 mg DAILY [facility] Administration Folic Acid 1 mg 01/11/24 09:00
[2024-01-13] MEDS: SODIUM CHLORIDE 0.9% IV 1,000 ML 75 ML IV CONT (09:39)
[2024-01-13] MEDS: BETAMETHASONE/CLOTRIMAZOLE CREAM 15 GM TUBE 1 APPLIC TOPICAL ×2 (09:42→17:12)
[2024-01-13] MEDS: oxyCODONE HCL (*CRX) 5 MG TAB IR 10 MG PO ×3 (09:49→23:06)
--- NOTE | 2024-01-13 10:28 | PC.NURSE ---
Patient picked up by WC for EGD/Sigmoidoscopy [id number]. Lisinopril and Metoprolol held for low BP, hospitalist notified and in agreement.
[2024-01-13] MEDS: LACTATED RINGERS 1,000 ML 150 ML IV CONT (10:47)
--- NOTE | 2024-01-13 11:04 | WPDANESEPPF ---
Anes - Initial Pre Proc Eval Procedure: Operation Date: 01/13/24 15:30 Proposed Procedures p Esophagogastroduodenoscopy - Jose Hernandez MD s Flexible Sigmoidoscopy - Jose Hernandez MD Date/Time: 01/13/24 11:04 Surgeon: Tyson Lim MD Pre Op Diagnosis: rectal bleed,anemia Patient Data Age: 53 Gender: F Height: 1.7 m Weight: 126.6 kg Last Vital Signs Temp 34.7 C L 01/13/24 10:43 Pulse 78 01/13/24 10:43 Resp 20 01/13/24 10:43 BP 129/56 L 01/13/24 10:43 Pulse Ox 100 01/13/24 10:43 O2 Del Method Room Air 01/13/24 10:43 Allergies Allergy/AdvReac Type Severity Reaction Status Date / Time No Known Allergies Allergy Verified 01/13/24 10:40 Home Medications Medication Instructions Recorded Confirmed Type famotidine 20 mg tablet 20 mg PO BID 08/12/19 01/10/24 History potassium chloride 10 mEq 10 meq PO DAILY 08/12/19 01/10/24 History tablet,extended release zolpidem 5 mg tablet 10 mg PO HS 08/12/19 01/10/24 History cyanocobalamin (vitamin B-12) 100 mcg (0.1 mL) IM MONTHLY #5 ea 08/21/19 01/10/24 Rx 1,000 mcg/mL injection kit folic acid 1 mg tablet 1 mg PO DAILY #30 tabs 08/21/19 01/10/24 Rx metoprolol succinate 25 mg 25 mg PO DAILY 10/13/19 01/10/24 History tablet,extended release 24 hr ferrous sulfate 325 mg (65 mg 325 mg PO DAILY 12/02/19 01/10/24 History iron) tablet omeprazole 40 mg capsule,delayed 40 mg PO DAILY 12/02/19 01/10/24 History release clotrimazole-betamethasone 1 1 applic topical BID #45 grams 04/08/20 01/10/24 Rx %-0.05 % topical cream lisinopril 10 mg tablet 10 mg PO DAILY 10/02/23 01/10/24 History oxycodone 10 mg tablet 10 mg PO Q6H PRN Pain 10/02/23 01/10/24 History Laboratory Tests 01/13/24 05:25 WBC 4.8 K/mm3 (4.5-10.0) RBC 2.64 L M/mm3 (4.2-5.4) Hgb 7.4 L g/dL (12.0-15.0) Hct 24.4 L % (37.0-47.0) MCV 92.4 fl (80-100) MCH 28.0 pg (26-34) MCHC 30.3 L g/dl (32-36) RDW 24.1 H % (11.5-14.5) Plt Count 176 k/mm3 (150-375) MPV 9.6 fl (7.4-10.4) Sodium 139 mmol/L (137-145) Potassium 4.1 mmol/L (3.4-5.0) Chloride 112 H mmol/L (98-107) Carbon Dioxide 23 mmol/L (22-30) Anion Gap 4 mmol/L (4-12) BUN 9 mg/dL (7-17) Creatinine 0.80 mg/dL (0.7-1.0) Estim Creat Clear Calc 97 ml/min Estimated GFR > 60 (59 - ) Glucose 80 mg/dL (65-110) Calcium 8.4 mg/dL (8.4-10.2) Patient hx anesthesia problems: none Family hx anesthesia problems: none Results Review: All pre-operative results and documents have been reviewed as part of the pre-operative evaluation. [facility] Past Medical History Medical History Acute on chronic anemia Anemia History of several blood transfusions. B12 deficiency Chronic acquired lymphedema Gastroesophageal reflux GI bleed (~04/2019) Secondary to peptic ulcers. Glaucoma History of cellulitis History of deep venous thrombosis Hx pulmonary embolism Hypertension Hypothyroidism No longer on medication. Obesity, morbid, BMI 40.0-49.9 Osteoarthritis Peptic ulcer disease Pulmonary embolism (~04/2018) Right leg DVT Extensive right lower extremity DVT on ultrasound dated 08/26/2019. Surgical History Surgical History History of 3 sections History of dilation and curettage History of endometrial ablation History of Adrienne-en-Y gastric bypass (~2009) History of tubal ligation Presence of IVC filter (~11/2018) Performed at [facility]. Family History Family History Mother Hypertension Dementia Father Hypertension Social History Social History Social History: The patient is and lives with her daughter. I believe her grands
[2024-01-13] MEDS: BENZOCAINE (*SP) 60 ML SPRAY CAN (HURRICAINE) 1 SPRAY MUCOUS MEM (11:29)
--- NOTE | 2024-01-13 11:46 | SUR.OPER ---
COLONOSCOPY END 1137 EGD START 1140
--- NOTE | 2024-01-13 12:30 | PC.NURSE ---
Patient back to room from GI post op at 1230.
[2024-01-13] MEDS: FOLIC ACID 1 MG TABLET PO (13:31)
[2024-01-13] MEDS: PANTOPRAZOLE 40 MG TABLET PO ×2 (13:31→17:12)
[2024-01-13] MEDS: FERROUS SULFATE 325 MG TABLET DR PO (13:31)
[2024-01-13] MEDS: POTASSIUM CHLORIDE 10 MEQ ER TABLET PO (13:31)
[2024-01-13] MEDS: SALINE LOCK FLUSH 10 ML IV PUSH ×2 (13:33→23:07)
[2024-01-13] MEDS: ZOLPIDEM TARTRATE (*CRX) 5 MG TABLET 10 MG PO (23:07)
[2024-01-14 06:44] VITALS: BP 112/77; PULSE 73; RESP 20; TEMP 36.8; O2SAT 99
[2024-01-14] MEDS: PANTOPRAZOLE 40 MG TABLET PO ×2 (08:29→18:12)
[2024-01-14] MEDS: POTASSIUM CHLORIDE 10 MEQ ER TABLET PO (08:29)
[2024-01-14] MEDS: FERROUS SULFATE 325 MG TABLET DR PO (08:29)
[2024-01-14] MEDS: FOLIC ACID 1 MG TABLET PO (08:29)
[2024-01-14] MEDS: METOPROLOL SUCCINATE EXT REL 25 MG TABCR PO (08:29)
[2024-01-14] MEDS: lisinopriL 10 MG TABLET PO (08:29)
[2024-01-14] MEDS: BETAMETHASONE/CLOTRIMAZOLE CREAM 15 GM TUBE 1 APPLIC TOPICAL (08:30)
[2024-01-14] MEDS: oxyCODONE HCL (*CRX) 5 MG TAB IR 10 MG PO ×2 (08:32→15:13)
--- NOTE | 2024-01-14 10:26 | WPDANESPN ---
Anes - Prog Note Post-Op Date/Time: 01/14/24 10:26 Cardiovascular status: normal Respiratory status: normal Airway patency: baseline Mental status: baseline Post-Op hydration status: normal Vital Signs: Last Vital Signs Temp 36.8 C 01/14/24 06:44 Pulse 73 01/14/24 06:44 Resp 20 01/14/24 06:44 BP 112/77 01/14/24 06:44 Pulse Ox 99 01/14/24 06:44 O2 Del Method Room Air 01/14/24 08:28 Pain Score (VAS): 0/10 I/O: Intake & Output 01/13/24 01/14/24 01/14/24 23:59 07:59 15:59 Intake Total 480 480 240 Balance 480 480 240 Laboratory Tests 01/13/24 05:25 01/13/24 05:25 Post-procedural complaints: none Patient Feedback: Patient satisfied with anesthetic care.
--- NOTE | 2024-01-14 10:33 | PM.IMPN ---
Progress Note: A&P Assessment and Plan (1) Acute on chronic anemia: Code(s): D64.9 - Anemia, unspecified Status: Acute Assessment and Plan: Stable/improved hgb at 7.4 today. Denies blood in BM overnight. Breathing easily. - GI consulted, egd and sigmoidoscopy 01/12 (2) Bright red rectal bleeding: Code(s): K62.5 - Hemorrhage of anus and rectum Status: Acute Assessment and Plan: - No further bleeding, sigmoidoscopy 01/12 (3) History of Adrienne-en-Y gastric bypass: Onset Date: ~2009 Code(s): Z98.84 - Bariatric surgery status Status: Acute (4) Obesity, morbid, BMI 40.0-49.9: Code(s): E66.01 - Morbid (severe) obesity due to excess calories Status: Acute (5) Hepatic steatosis: Code(s): K76.0 - Fatty (change of) liver, not elsewhere classified Status: Acute (6) Hypertension: Qualifiers: Hypertension type: essential hypertension Qualified Code(s): I10 - Essential (primary) hypertension Code(s): I10 - Essential (primary) hypertension Status: Chronic Assessment and Plan: Resume home medications post procedurally. Plan Tiarra is doing well today with stable hgb. EGD/Sigmoidoscopy 01/12. Pending the results of those and further recommendations from GI, likely discharge tomorrow if stable and doing well. Time Spent With Patient Time with patient: Greater than 35 minutes Subjective Date/time seen: 01/14/24 10:33 Interval history: Tiarra states no further blood in bowel movements. No abdominal pain, no shortness of breath or palpitations. Review of Systems Review of Systems: All systems reviewed & are unremarkable except as noted in HPI and below Cardiovascular: Cardiovascular: Denies chest pain Respiratory: Respiratory: Denies chest congestion and Denies cough Gastrointestinal: Gastrointestinal: Denies abdominal pain Exam Narrative: GENERAL APPEARANCE: Appears to be in no acute distress. HEAD: normocephalic atraumatic ENT: Hearing grossly intact, no nasal discharge NECK: Neck supple, trachea midline. CARDIAC: Normal S1/S2. Rhythm is regular. No murmurs, rubs, or gallops. No cyanosis or pallor. Extremities are warm and well perfused. LUNGS: Clear to auscultation without rales, rhonchi, wheezing or diminished breath sounds. Respirations even and unlabored. ABDOMEN: BS positive x 4 quadrants. Obese. Soft, nondistended, nontender. No guarding or rebound. MSK: No joint tenderness/swelling, fair strength in all extremities. PERIPHERAL VASCULAR: Peripheral pulses palpable. Normal perfusion, cap refill <2 seconds. NEURO: Follows commands. No focal deficits. SKIN: [place] without lesions or eruptions. PSYCH: Stable, no paranoia or delusional thinking. Const: General: comfortable and no acute distress Other: , female, nontoxic appearance HENMT: Face/Nose/Sinus: Normal nares present Mouth: Yes moist mucous membranes Eyes: General: appearance normal, both eyes and all related structures Sclera: sclerae normal Pupils: Equal, round and reactive pupils present EOM: EOMs intact bilaterally Resp: Effort & Inspection: normal respiratory effort Auscultation: clear to auscultation bilaterally Cardio: Rate: regular rate Rhythm: regular rhythm Other: S1-S2 present without murmur, rub, ectopy GI: Other: Abdomen soft, nondistended, nontender. Normoactive bowel sounds in all quadrants. Skin: General skin exam: normal color and no rashes or lesions noted Wounds: no wounds Neuro: Cranial nerves: Yes Equal, round and reactive pupils present Speech: normal speech Motor exam (neuro): 5/5 motor strength present throughout Sensory Exam: normal sensation Other: A&O x4 Extrem: Other: +lymphedema to right lower extremity, improved from baseline. Psych: Mental Status: mental status grossly normal Affect: normal affect Other:
[2024-01-14 10:42] LABS: Hematocrit 26.7 % (37.0-47.0); Mean Corpuscular Hemoglobin 27.3 pg (26-34); Mean Corpuscular Volume 91.1 fl (80-100); Mean Platelet Volume 9.5 fl (7.4-10.4); Platelet Count Result 232 k/mm3 (150-375); Red Blood Count 2.93 M/mm3 (4.2-5.4); Red Cell Distribution Width 23.5 % (11.5-14.5)
[2024-01-14 10:52] LABS: Anion Gap 5 mmol/L (4-12); Blood Urea Nitrogen 7 mg/dL (7-17); Calcium 8.6 mg/dL (8.4-10.2); Carbon Dioxide 22 mmol/L (22-30); Chloride 112 mmol/L (98-107); Estimated CRCL calculation 109 ml/min; Estimated Glomerular Filt Rate > 60; Glucose 81 mg/dL (65-110); Potassium 4.3 mmol/L (3.4-5.0); Sodium 139 mmol/L (137-145)
[2024-01-14 13:55] VITALS: BP 116/63; PULSE 77; RESP 18; TEMP 36.3; O2SAT 100
--- NOTE | 2024-01-14 14:36 | PM.DS ---
DS: Admitting Diagnosis Discharge Date 01/14/2024 Admitting Diagnosis GI bleed DS: Discharge Diagnosis Discharge Diagnosis (1) Acute on chronic anemia: Code(s): D64.9 - Anemia, unspecified Status: Acute Assessment and Plan: Stable/improved hgb at 8.0 today. Denies blood in BM overnight. Breathing easily. - GI consulted, egd and sigmoidoscopy 01/12 found internal hemorrhoids no signs of acute bleeding GI recommends to follow up with Hematology outpatient (2) Bright red rectal bleeding: Code(s): K62.5 - Hemorrhage of anus and rectum Status: Acute Assessment and Plan: - No further bleeding, sigmoidoscopy 01/12 (3) History of Adrienne-en-Y gastric bypass: Onset Date: ~2009 Code(s): Z98.84 - Bariatric surgery status Status: Acute Assessment and Plan: continue B12 (4) Hypertension: Qualifiers: Hypertension type: essential hypertension Qualified Code(s): I10 - Essential (primary) hypertension Code(s): I10 - Essential (primary) hypertension Status: Chronic Assessment and Plan: Resume home medications on Saturday (5) Hepatic steatosis: Code(s): K76.0 - Fatty (change of) liver, not elsewhere classified Status: Acute (6) Obesity, morbid, BMI 40.0-49.9: Code(s): E66.01 - Morbid (severe) obesity due to excess calories Status: Acute Assessment and Plan: continue with low-fat diet Plan Tiarra is doing well today with stable hgb. EGD/Sigmoidoscopy 01/12 found to have internal hemorrhoids tears recommendations to follow up with Hematology outpatient. DS: Summary Hospital Course Reason for hospitalization: Bright red blood per rectum. Hospital Course: 53 y/o F presents here with anemia, chronic acquired lymphedema, B12 deficiency, GERD, GI bleed secondary to PUD (2019), DVT and PE with IVC filter, HTN, hypothyroidism (not currently on medication), and osteoarthritis. The patient presents here from home for further evaluation of bright red blood per rectum for the past 5 days. The rectal bleeding is accompanied by weakness, lightheadedness, and intermittent presyncope sensation. States she has felt a little unsteady on her feet due to the weakness, she utilizes a walker intermittently at baseline. She denies accompanying abdominal pain, nausea, vomiting, diarrhea, constipation, fever, or chills. She was taken off of Xarelto in October of 2023, has IVC filter in place. She was admitted in October of 2023 for a GI bleed at [facility] and has also had a bleeding gastric ulcer in 2019. Colonoscopy done during most recent admission showed colonic polyps and internal hemorrhoids (no active bleeding). Last EGD done in August of 2023, no abnormalities, and was done at [facility]. Initial VS at presentation: 97.8? F, HR 73, RR 16, 135/81, and 100% on RA. ED workup showed: No leukocytosis, hemoglobin 8.1 (previously 12.2 on 11/13/2023), INR 1.3, creatinine 0.7 and GFR >60. Patient was seen by GI and had a EGD/Sigmoidoscopy 01/12 found to have internal hemorrhoids with no signs of acute internal bleeding recommendations to follow up with Hematology outpatient. Patient's hemoglobin never dropped below 7 and Did not need a blood transfusion while in the hospital. Hospital course was uneventful. Status at Discharge Functional status at discharge: independent ambulation Time Spent with Patient Time attestation: Total time spent providing and/or coordinating discharge services: Time spent: Greater than 30 minutes Exam Narrative: GENERAL APPEARANCE: Appears to be in no acute distress. HEAD: normocephalic atraumatic ENT: Hearing grossly intact, no nasal discharge NECK: Neck supple, trachea midline. CARDIAC: Normal S1/S2. Rhythm is regular. No murmurs, rubs, or gallops. No cyanosis or pallor. Extremities are warm and well perfused. LUNGS: Clear to auscultation without rale
[2024-01-14] MEDS: INFLUENZA TRIVALENT VACCINE 45 MCG/0.5 ML SYRINGE IM (15:09)
[2024-01-14] MEDS: NEOMYCIN/POLYMYXIN/BACITRACIN OINTMENT PACKET 1 PACKET TOPICAL (15:10)
== END 2024-01-14 18:15 | disposition home or self-care (01) | DRG 378 ==
LOC: ANHED 15:54 → ANH3MED 01-11 11:10
PROVIDERS: Internal Medicine; Internal Medicine Gastroenterology; Nurse Practitioner; Nurse Practitioner Family; Preventive Medicine Aerospace Medicine; Student in an Organized Health Care Education/Training Program; Admitting Provider Internal Medicine; Emergency Provider Emergency Medicine; Visit Provider Nurse Practitioner Gerontology
PROC: 0DJ08ZZ Inspection of Upper Intestinal Tract, Via Natural or Artificial Opening Endoscopic (ICD-10-PCS; CPT 43235; principal; 2024-01-13 15:30)
PROC: 0DJD8ZZ Inspection of Lower Intestinal Tract, Via Natural or Artificial Opening Endoscopic (ICD-10-PCS; CPT 45330; 2024-01-13 15:30)
DX: K62.5 Hemorrhage of anus and rectum (principal); Z68.41 Body mass index [BMI] 40.0-44.9, adult; Z98.84 Bariatric surgery status; Z23 Encounter for immunization; I10 Essential (primary) hypertension; D69.6 Thrombocytopenia, unspecified; D64.9 Anemia, unspecified; E66.01 Morbid (severe) obesity due to excess calories; E53.8 Deficiency of other specified B group vitamins; E03.9 Hypothyroidism, unspecified; I89.0 Lymphedema, not elsewhere classified; K64.8 Other hemorrhoids; K76.0 Fatty (change of) liver, not elsewhere classified; K21.9 Gastro-esophageal reflux disease without esophagitis; K44.9 Diaphragmatic hernia without obstruction or gangrene; Z86.718 Personal history of other venous thrombosis and embolism; Z86.711 Personal history of pulmonary embolism; Z95.828 Presence of other vascular implants and grafts; M19.90 Unspecified osteoarthritis, unspecified site; Z86.0100 Personal history of colon polyps, unspecified
CPT/HCPCS: 36415; 36569; 80048; 80053; 81003; 85014; 85018; 85025; 85027; 85610; 85730; 86850; 86900; 86901; 90471; 90656; 96374; 99285; A9270; C1751; G0008; G0378; J2003; J2470; J2704; J7030; J7120

== ENCOUNTER 2024-02-27 13:05 | Inpatient (IN) | payer MEDICARE, SELFPAY ==
--- NOTE | ~2024-02-27 | US_ITS ---
EXAMINATION: US venous doppler LE RT DATE: 02/28/2024 19:39 INDICATION: Right lower limb pain. TECHNIQUE: Grayscale ultrasound images without and with compression and Doppler ultrasound images of the right lower extremity veins were obtained. COMPARISON: None. FINDINGS: The visualized portions of right popliteal vein are patent. There is thrombus in right common femoral vein, femoral vein, deep femoral vein, and posterior tibial and greater saphenous veins. IMPRESSION: 1. Deep vein thrombosis involving right common femoral vein, femoral vein, deep femoral vein, and po sterior tibial veins. 2. Superficial vein thrombosis involving right greater saphenous vein. Reviewed, dictated and finalized at location A. K REPAIR PERSON IMPRESSION: 1. Deep vein thrombosis involving right common femoral vein, femoral vein, hamida p femoral vein, and posterior tibial veins. 2. Superficial vein thrombosis involving right greater saphenous vein.
--- NOTE | ~2024-02-27 | CT_ITS ---
EXAMINATION: CT abdomen pelvis w con DATE: 02/27/2024 22:27 INDICATION: Left upper quadrant abdominal pain. Rectal bleeding. TECHNIQUE: Computed tomography (CT) of the abdomen and pelvis was performed with 100 mL Omnipaque 350 intravenous contrast. Automated exposure control and iterative reconstruction technique were employe d. The dose-length product was 1383.93 mGy-cm. COMPARISON: CT abdomen and pelvis 10/02/2023 FINDINGS: The visualized portions of the lung bases demonstrate mild atelectasis. A calcified left lucero ng nodule and calcified subcarinal lymph nodes are consistent with old granulomatous disease. No pleu ral effusion. The heart size is normal. No pericardial effusion. There is a small sliding hiatal kelvin ia. The liver, gallbladder, and pancreas are normal. Calcifications in the spleen are consistent with old granulomatous disease. The adrenal glands are normal. There is cortical thinning of the kidneys. There is a filter in the inferior vena cava. There is thrombus in the inferior vena cava, pelvic vei ns, common femoral veins, femoral veins, and left profunda femoral vein. There are no dilated loops o f bowel. The appendix is normal. There are tubal ligation clips. There are surgical changes in the st omach. There are no pathologically enlarged lymph nodes. There is no free intraperitoneal fluid. Ther e is mild thoracic spondylosis and moderate lumbar spondylosis. IMPRESSION: 1. Deep vein thrombosis in the pelvis and thighs with filter in the inferior vena cava. Reviewed, dictated and finalized at location A. T AGENT IMPRESSION: 1. Deep vein thrombosis in the pelvis and thighs with filter in the inferior ve na cava.
--- NOTE | ~2024-02-27 | NM_ITS ---
EXAMINATION: NM vanesa stress w perfusion DATE: 02/28/2024 14:36 INDICATION: Abnormal EKG. Positive troponins. TECHNIQUE: Rest images were obtained following intravenous administration of 7 mCi Tc99m tetrofosmin (Myoview). The patient was infused intravenously with Lexiscan (Regadenoson). Then, 20.5 mCi Tc99m te trofosmin (Myoview) was administered intravenously, and stress images were obtained. Data was reconst ructed into short axis and horizontal and vertical long axis SPECT images. Gated SPECT images were al so obtained. COMPARISON: None. FINDINGS: There is no definite reversible or fixed perfusion abnormality to suggest ischemia or infar ction. There is normal left ventricular chamber size, wall motion and ejection fraction. Left ventr icular ejection fraction measures >70%. IMPRESSION: 1. Normal myocardial perfusion at rest and during stress. 2. Left ventricular ejection fraction measuring >70%. Reviewed, dictated and finalized at location B. O ARCADE MANAGER
[2024-02-27 13:14] VITALS: BP 109/82; PULSE 95; RESP 16; TEMP 36.2; O2SAT 100
[2024-02-27 18:54] VITALS: BP 107/71; PULSE 89; RESP 18; TEMP 36.6; O2SAT 100
--- NOTE | 2024-02-27 19:24 | ED_ITS ---
HPI - GI Bleed General Chief complaint: GI Bleed Stated complaint: rectal bleeding x3-4 days Time Seen by Provider: 02/27/24 19:10 Focused HPI: Patient is a 53-year-old female who presents to the ER with concerns of rectal bleeding. She reports she has noticed bright red bleeding from her rectum for the past 4 days. Pt also endorses feeling faint. She also endorses pain in her left upper quadrant. Patient reports she has a history of a hernia and bilateral lymphedema. She denies any new lower extremity swelling and back pain. Patient endorses pain that her pain is a 10/10 and reports she takes oxycodone at home. GENERAL: Well-appearing, well-nourished, and in no acute distress. HEAD: Normocephalic, atraumatic. CHEST: Clear to auscultation. ?No respiratory distress. HEART: Regular rate and rhythm, but audible murmur.? NEURO: ?Alert and oriented x3. Patient screened in triage and initial orders placed.? ?Additional care and disposition to be based upon?diagnostic testing and treatment. Related Data Home Medications Medication Instructions Recorded Confirmed famotidine 20 mg tablet 20 mg PO BID 08/12/19 02/28/24 potassium chloride 10 mEq 10 meq PO DAILY 08/12/19 02/28/24 tablet,extended release zolpidem 5 mg tablet 10 mg PO HS 08/12/19 02/28/24 metoprolol succinate 25 mg 25 mg PO DAILY 10/13/19 02/28/24 tablet,extended release 24 hr ferrous sulfate 325 mg (65 mg 325 mg PO DAILY 12/02/19 02/28/24 iron) tablet omeprazole 40 mg capsule,delayed 40 mg PO DAILY 12/02/19 02/28/24 release lisinopril 10 mg tablet 10 mg PO DAILY 10/02/23 02/28/24 oxycodone 10 mg tablet 10 mg PO Q6H PRN Pain 10/02/23 02/28/24 fluoxetine 10 mg capsule 10 mg PO DAILY 02/28/24 02/28/24 hydroxyzine pamoate 25 mg capsule 25 mg PO TID PRN Anxiety 02/28/24 02/28/24 Allergies Allergy/AdvReac Type Severity Reaction Status Date / Time No Known Allergies Allergy Verified 02/27/24 13:15 [facility] Past Medical History Medical History Acute on chronic anemia Anemia History of several blood transfusions. B12 deficiency Chronic acquired lymphedema Gastroesophageal reflux GI bleed (~04/2019) Secondary to peptic ulcers. Glaucoma History of cellulitis History of deep venous thrombosis Hx pulmonary embolism Hypertension Hypothyroidism No longer on medication. Obesity, morbid, BMI 40.0-49.9 Osteoarthritis Peptic ulcer disease Pulmonary embolism (~04/2018) Right leg DVT Extensive right lower extremity DVT on ultrasound dated 08/26/2019. Surgical History Surgical History History of 3 sections History of dilation and curettage History of endometrial ablation History of Adrienne-en-Y gastric bypass (~2009) History of tubal ligation Presence of IVC filter (~11/2018) Performed at [facility]. Family History Family History Mother Hypertension Dementia Father Hypertension Social History Social History Social History: The patient is and lives with her daughter. I believe her grandson lives next door. 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 Lifelong nonsmoker. She drinks perhaps 2 alcoholic beverages a week. No illicit substance use. She designates her son, Jose Willis, as her surrogate decision maker and she wishes to be a full code. Smoking status: Never smoker Alcohol intake: current Drinks per week: 3 Substance use: never Do You Feel Safe in your Home?: Yes Lack of Transportation: No Lack of Food: Never True Current Housing: I Have Housing Concerned About Future Housing: No Difficulty Paying Gas/Electric Bills: No Difficulty Paying for Meds: No Currently Unemployed: No Education: Bachelor's Degree Difficulty w/ Childcare or Family Care: No Living arrangements: with family Occupation/Education: retired Gender identity (if verbalized by the patient): Female Spiritual care concerns: No Agree to blood products: Yes Course Vital Signs Vital signs: Vital Signs Temperature 36.2 C L 02/27/24 13:14 Pulse Rate 95 02/27/24 13:14 Respiratory Rate 16 02/27/24 13:14 Blood Pressure 109/82 02/27/24 13:14 Pulse Oximetry 100 02/27/24 13:14 Temperature 36.3 C L 02/28/24 03:45 Pulse Rate 77 02/28/24 06:00 Respiratory Rate 20 02/28/24 04:19 Blood Pressure 92/69 L 02/28/24 04:19 Pulse Oximetry 99 02/28/24 04:19 Oxygen Delivery Room Air 02/28/24 04:00 MDM - GI Bleed Lab Data 02/27/24 21:17 02/27/24 21:17 Labs: Lab Results 02/27/24 02/28/24 Range/Units 21:17 00:16 WBC 12.0 H (4.5-10.0) K/mm3 RBC 3.61 L (4.2-5.4) M/mm3 Hgb 10.3 L (12.0-15.0) g/dL Hct 32.1 L (37.0-47.0) % MCV 88.9 (80-100) fl MCH 28.5 (26-34) pg MCHC 32.1 (32-36) g/dl RDW 18.6 H (11.5-14.5) % Plt Count 127 L (150-375) k/mm3 MPV 10.1 (7.4-10.4) fl Immature Gran % (Auto) 0.6 H (0-0.5) % Neut % (Auto) 82.8 H (45.5-73.1) % Lymph % (Auto) 9.5 L (18.3-44.2) % [place] % (Auto) 6.2 (2.6-8.5) % Eos % (Auto) 0.6 (0-4.4) % Baso % (Auto) 0.3 (0.2-1.2) % Lymph # (Auto) 1.14 (0.9-3.2) K/mm3 [place] # (Auto) 0.7 H (0.1-0.6) K/mm3 Eos # (Auto) 0.1 (0-0.3) K/mm3 Baso # (Auto) 0.0 (0.0-0.1) K/mm3 Abs Immat Gran (auto) 0.07 H (0.00-0.031) K/mm3 Absolute Neuts (auto) 9.9 H (1.3-6.7) K/mm3 Absolute Nucleated RBC 0.000 (0.0-0.012) K/mm3 Nucleated RBC % 0.0 (0.0-0.2) % % Immature Plt Fraction 2.4 (0.9-11.2) % PT 19.4 H (11.1-14.7) Seconds INR 1.6 APTT 32.9 (22.3-36.8) Seconds Sodium 134 L (137-145) mmol/L Potassium 3.7 (3.4-5.0) mmol/L Chloride 102 (98-107) mmol/L Carbon Dioxide 21 L (22-30) mmol/L Anion Gap 11 (4-12) mmol/L BUN 10 (7-17) mg/dL Creatinine 1.20 H (0.7-1.0) mg/dL Estim Creat Clear Calc 70 ml/min Estimated GFR 57 L (59 - ) Glucose 112 H (65-110) mg/dL Lactic Acid 2.8 H (0.7-2.0) mmol/L Calcium 8.8 (8.4-10.2) mg/dL Magnesium 2.1 (1.6-2.3) mg/dL Total Bilirubin 1.3 (0.2-1.3) mg/dL AST 33 (14-36) U/L ALT 14 (6-35) U/L Alkaline Phosphatase 137 H (38-126) U/L Troponin I 0.057 H* 0.061 H* (0.000-0.034) ng/mL Total Protein 8.0 (6.3-8.2) g/dL Albumin 3.9 (3.5-5.1) g/dL Lipase 138 (23-300) U/L Blood Type O Positive Antibody Screen Negative Discharge Plan Discharge Clinical Impression: Bright red rectal bleeding, Hemorrhoid, Elevated troponin Patient Disposition: Still a Patient Condition: Stable
--- NOTE | 2024-02-27 19:32 | ECG_ITS ---
Test Date: 2024-02-27 21:28:47 Measurements Intervals [place] Rate: 81 P: 68 WI: 164 QRS: -11 QRSD: 89 T: -5 QT: 430 QTc: 500 Interpretive Statements SINUS RHYTHM VOLTAGE CRITERIA FOR LVH MINIMAL Q WAVES- HIGH LATERAL LEADS BORDERLINE ST-T WAVE ABNORMALITY- ANT/INF LEADS BASELINE ARTIFACT- I, II, AVR, AVL BORDERLINE ECG Compared to ECG 10/02/2023 15:46:37 No significant changes Electronically Signed On 02-28-2024 06:23:09 ACADEMIC ADMINISTRATOR by Byron Quinones D.O.
[2024-02-27] MEDS: HYDROcodone/acetaminophen (*CRX) 5-325 MG TABLET 1 TAB PO (20:56)
--- NOTE | 2024-02-27 20:56 | ED.GIBLEED ---
HPI - GI Bleed General Chief complaint: GI Bleed Stated complaint: rectal bleeding x3-4 days Time Seen by Provider: 02/27/24 19:10 Source: patient Mode of arrival: ambulatory Limitations: no limitations History of Present Illness HPI Narrative: 53 YEARS OLD FEMALE CAME TO THE ED BY PRIVATE CAR FROM HOME COMPLAINING OF FRESH RED BRIGHT BLOOD BLEED STARTED 3 DAYS AGO, 3-4 BOWEL MOVEMENT A DAY, HISTORY OF GI BLEED OF UNKNOWN ETIOLOGY AT THIS TIME. HISTORY OF GASTRIC BYPASS 24 YEARS AGO. PATIENT USED TO BE ON XARELTO FOR DEEP VEIN THROMBOSIS STOPPED JUNE 2023 BECAUSE OF THE GI BLEED. PATIENT COMPLAINING OF GENERAL WEAKNESS TIREDNESS LONG HOURS SLEEP. PATIENT IS ON PPI AT THIS TIME LAST COLONOSCOPY WAS JANUARY 2024 SHOWED HEMORRHOIDS. Related Data Home Medications Medication Instructions Recorded Confirmed famotidine 20 mg tablet 20 mg PO BID 08/12/19 01/10/24 potassium chloride 10 mEq 10 meq PO DAILY 08/12/19 01/10/24 tablet,extended release zolpidem 5 mg tablet 10 mg PO HS 08/12/19 01/10/24 metoprolol succinate 25 mg 25 mg PO DAILY 10/13/19 01/10/24 tablet,extended release 24 hr ferrous sulfate 325 mg (65 mg 325 mg PO DAILY 12/02/19 01/10/24 iron) tablet omeprazole 40 mg capsule,delayed 40 mg PO DAILY 12/02/19 01/10/24 release lisinopril 10 mg tablet 10 mg PO DAILY 10/02/23 01/10/24 oxycodone 10 mg tablet 10 mg PO Q6H PRN Pain 10/02/23 01/10/24 Allergies Allergy/AdvReac Type Severity Reaction Status Date / Time No Known Allergies Allergy Verified 02/27/24 13:15 Review of Systems Review of Systems: All systems reviewed & are unremarkable except as noted in HPI and below PMFSH Past Medical History Medical History Acute on chronic anemia Anemia History of several blood transfusions. B12 deficiency Chronic acquired lymphedema Gastroesophageal reflux GI bleed (~04/2019) Secondary to peptic ulcers. Glaucoma History of cellulitis History of deep venous thrombosis Hx pulmonary embolism Hypertension Hypothyroidism No longer on medication. Obesity, morbid, BMI 40.0-49.9 Osteoarthritis Peptic ulcer disease Pulmonary embolism (~04/2018) Right leg DVT Extensive right lower extremity DVT on ultrasound dated 08/26/2019. Surgical History Surgical History History of 3 sections History of dilation and curettage History of endometrial ablation History of Adrienne-en-Y gastric bypass (~2009) History of tubal ligation Presence of IVC filter (~11/2018) Performed at [facility]. Family History Family History Mother Hypertension Dementia Father Hypertension Social History Social History Social History: The patient is and lives with her daughter. I believe her grandson lives next door. 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 Lifelong nonsmoker. She drinks perhaps 2 alcoholic beverages a week. No illicit substance use. She designates her son, Jose Willis, as her surrogate decision maker and she wishes to be a full code. Smoking status: Never smoker Alcohol intake: former Drinks per week: 3 Substance use: never Do You Feel Safe in your Home?: Yes Lack of Transportation: No Lack of Food: Never True Current Housing: I Have Housing Concerned About Future Housing: No Difficulty Paying Gas/Electric Bills: No Difficulty Paying for Meds: No Currently Unemployed: No Education: Bachelor's Degree Difficulty w/ Childcare or Family Care: No Living arrangements: with family Occupation/Education: retired Gender identity (if verbalized by the patient): Female Spiritual care concerns: No Agree to blood products: Yes Exam Narrative: GENERAL APPEARANCE: WELL-DEVELOPED, WELL-NOURISHED SKIN: PALE HEAD: NORMOCEPHALIC, NONTRAUMATIC EYES: CLEAR CONJUNCTIVA ENT: OROPHARYNX NORMAL, EARS NORMAL, NOSE NORMAL NECK: SUPPLE, NONTENDER CHEST AND RESPIRATORY: AIRWAY PATENT, NO RESPIRATORY DISTRESS, NO ACCESSORY MUSCLE USE HEART: REGULAR RATE/RHYTHM ABDOMEN: SOFT, NONTENDER, NO ORGANOMEGALY, QUIET BOWEL SOUNDS, RECTAL EXAM SHOWING SEVERE TENDERNESS,FRESH RED BRIGHT BLOOD GUAIAC-POSITIVE VASCULAR: NORMAL PERIPHERAL PULSES, NORMAL CAPILLARY REFILL. MUSCULOSKELETAL: NORMAL RANGE OF MOTION, NONTENDER BACK NEUROLOGIC: ALERT AND ORIENTED ?3, SUPERVISOR PHOSPHORUS PROCESSING IS NORMAL TESTED, NO GROSS MOTOR DEFICIT Course Consultations Consultation #1: DR SHAFFER PATIENT CAN GO HOME BECAUSE HAD HISTORY OF HEMORRHOIDS JANUARY 2024. Date: 02/27/24 Vital Signs Vital signs: Vital Signs Temperature 36.2 C L 02/27/24 13:14 Pulse Rate 95 02/27/24 13:14 Respiratory Rate 16 02/27/24 13:14 Blood Pressure 109/82 02/27/24 13:14 Pulse Oximetry 100 02/27/24 13:14 Temperature 36.6 C 02/27/24 18:54 Pulse Rate 84 02/28/24 00:18 Respiratory Rate 16 02/28/24 00:18 Blood Pressure 87/61 L 02/28/24 00:18 Pulse Oximetry 98 02/28/24 00:18 MDM - GI Bleed MDM Narrative Medical decision making narrative: PATIENT CAME WITH RECTAL BLEED VITAL SIGNS ARE STABLE PHYSICAL EXAMINATION POSITIVE FOR RECTAL PAIN AND BLEED, GUAIAC POSITIVE DIFFERENTIAL DIAGNOSIS GI BLEED, ANEMIA, ELECTROLYTE IMBALANCE, DEHYDRATION BLOOD WORKUP TODAY INCLUDE CBC, CMP, TROPONIN SHOWED WBC OF 12.0, HEMOGLOBIN 10.3, PLATELET OF 127, PT OF 19.4, SODIUM 134, CREATININE 1.2, LACTIC ACIDOSIS OF 2.8 TROPONIN 0.057, NORMAL LIPASE EKG SHOWED NORMAL SINUS RHYTHM AT 81 BEATS PER MINUTE, COMPARED TO EKG ON OCTOBER 02, [address] ABDOMEN AND PELVIS WITH IV CONTRAST SHOWED NO ACUTE ABNORMALITY SECOND TROPONIN IS HIGHER THAN THE 1ST 1, PATIENT STILL ASYMPTOMATIC DENYING ANY CHEST PAIN OR SHORTNESS OF BREATH OR BACK PAIN. REPEATED EKG SHOWED ISCHEMIC CHANGES. ADMIT TO HOSPITALIST Differential Diagnosis Differential diagnosis: Likely other ( ABOVE) Lab Data 02/27/24 21:17 02/27/24 21:17 Labs: Lab Results 02/27/24 02/28/24 Range/Units 21:17 00:16 WBC 12.0 H (4.5-10.0) K/mm3 RBC 3.61 L (4.2-5.4) M/mm3 Hgb 10.3 L (12.0-15.0) g/dL Hct 32.1 L (37.0-47.0) % MCV 88.9 (80-100) fl MCH 28.5 (26-34) pg MCHC 32.1 (32-36) g/dl RDW 18.6 H (11.5-14.5) % Plt Count 127 L (150-375) k/mm3 MPV 10.1 (7.4-10.4) fl Immature Gran % (Auto) 0.6 H (0-0.5) % Neut % (Auto) 82.8 H (45.5-73.1) % Lymph % (Auto) 9.5 L (18.3-44.2) % [place] % (Auto) 6.2 (2.6-8.5) % Eos % (Auto) 0.6 (0-4.4) % Baso % (Auto) 0.3 (0.2-1.2) % Lymph # (Auto) 1.14 (0.9-3.2) K/mm3 Morris # (Auto) 0.7 H (0.1-0.6) K/mm3 Eos # (Auto) 0.1 (0-0.3) K/mm3 Baso # (Auto) 0.0 (0.0-0.1) K/mm3 Abs Immat Gran (auto) 0.07 H (0.00-0.031) K/mm3 Absolute Neuts (auto) 9.9 H (1.3-6.7) K/mm3 Absolute Nucleated RBC 0.000 (0.0-0.012) K/mm3 Nucleated RBC % 0.0 (0.0-0.2) % % Immature Plt Fraction 2.4 (0.9-11.2) % PT 19.4 H (11.1-14.7) Seconds INR 1.6 APTT 32.9 (22.3-36.8) Seconds Sodium 134 L (137-145) mmol/L Potassium 3.7 (3.4-5.0) mmol/L Chloride 102 (98-107) mmol/L Carbon Dioxide 21 L (22-30) mmol/L Anion Gap 11 (4-12) mmol/L BUN 10 (7-17) mg/dL Creatinine 1.20 H (0.7-1.0) mg/dL Estim Creat Clear Calc 70 ml/min Estimated GFR 57 L (59 - ) Glucose 112 H (65-110) mg/dL Lactic Acid 2.8 H (0.7-2.0) mmol/L Calcium 8.8 (8.4-10.2) mg/dL Magnesium 2.1 (1.6-2.3) mg/dL Total Bilirubin 1.3 (0.2-1.3) mg/dL AST 33 (14-36) U/L ALT 14 (6-35) U/L Alkaline Phosphatase 137 H (38-126) U/L Troponin I 0.057 H* Pending (0.000-0.034) ng/mL Total Protein 8.0 (6.3-8.2) g/dL Albumin 3.9 (3.5-5.1) g/dL Lipase 138 (23-300) U/L Blood Type Pending Antibody Screen Pending Imaging Data Radiologist's impression: Impressions Abdomen/Pelvis CT 02/27/24 22:28 IMPRESSION: 1. Deep vein thrombosis in the pelvis and thighs with filter in the inferior vena cava. ECG Data EKG #1: Attestation: I personally reviewed and interpreted this ECG as follows: ECG completion date: 02/28/24 Prior ECG tracings: available for review Interpretation: NORMAL SINUS RHYTHM 81 BEATS PER MINUTE, COMPARED TO EKG ON OCTOBER 02, 2023 NO SIGNIFICANT CHANGES EKG #2: Attestation: I personally reviewed and interpreted this ECG as follows: ECG completion date: 02/28/24 ECG completion time: 01:05 Prior ECG tracings: available for review Interpretation: NORMAL SINUS RHYTHM AT 78 BEATS PER MINUTE, MODERATE T-WAVE ABNORMALITY CONSIDER ANTERIOR ISCHEMIA COMPARED TO EKG ON 02/25 T-WAVE ABNORMALITY NOW PRESENT, POSSIBLE ISCHEMIA NOW PRESENT. Critical Care Time Critical Care Time Critical Care Time: No Discharge Plan Discharge Patient Disposition: Still a Patient Prescriptions: No Action metoprolol succinate 25 mg Tablet Extended Release 24 Hr 25 mg PO DAILY omeprazole 40 mg capsule,delayed release(DR/EC) 40 mg PO DAILY ferrous sulfate 325 mg (65 mg iron) tablet 325 mg PO DAILY potassium chloride 10 mEq tablet extended release 10 meq PO DAILY famotidine 20 mg tablet 20 mg PO BID zolpidem 5 mg tablet 10 mg PO HS Patient Comments: PATIENT STATES DOSE WAS CHANGED BY PMD folic acid 1 mg Tablet 1 mg PO DAILY Qty: 30 0RF cyanocobalamin (vitamin B-12) 1,000 mcg/mL kit 100 mcg IM MONTHLY Qty: 5 0RF Rx Instructions: Receives on of every month clotrimazole-betamethasone 1-0.05 % cream 1 applic topical BID Qty: 45 0RF lisinopril 10 mg tablet 10 mg PO DAILY oxycodone 10 mg tablet 10 mg PO Q6H PRN (Reason: Pain) Follow-up/Referrals: PHYSICIAN NOT ON STAFF,NONSTAFF [Non-Staff] -
[2024-02-27] MEDS: SODIUM CHLORIDE 0.9% IV 1,000 ML 999 ML IV CONT (21:19)
[2024-02-27] MEDS: PANTOPRAZOLE SODIUM IV 40 MG VIAL IV PUSH ×2 (21:20→22:31)
[2024-02-27 21:30] LABS: Basophils Percent Auto 0.3 % (0.2-1.2); Eosinophils Absolute Auto 0.1 K/mm3 (0-0.3); Eosinophils Percent Auto 0.6 % (0-4.4); Hematocrit 32.1 % (37.0-47.0); Hemoglobin 10.3 g/dL (12.0-15.0); Immature Granulocyte Absolute 0.07 K/mm3 (0.00-0.031); Immature Granulocyte Percent A 0.6 % (0-0.5); Immature Platelet Fraction Pct 2.4 % (0.9-11.2); Lymphocytes Absolute Auto 1.14 K/mm3 (0.9-3.2); Lymphocytes Percent Auto 9.5 % (18.3-44.2); Mean Corpuscular HGB Conc 32.1 g/dl (32-36); Mean Corpuscular Hemoglobin 28.5 pg (26-34); Mean Corpuscular Volume 88.9 fl (80-100); Mean Platelet Volume 10.1 fl (7.4-10.4); Monocytes Absolute Auto 0.7 K/mm3 (0.1-0.6); Monocytes Percent Auto 6.2 % (2.6-8.5); Neutrophils Absolute Auto 9.9 K/mm3 (1.3-6.7); Neutrophils Percent Auto 82.8 % (45.5-73.1); Platelet Count Result 127 k/mm3 (150-375); Red Blood Count 3.61 M/mm3 (4.2-5.4); Red Cell Distribution Width 18.6 % (11.5-14.5)
[2024-02-27 21:39] LABS: Alanine Aminotransferase 14 U/L (6-35); Albumin Level 3.9 g/dL (3.5-5.1); Alkaline Phosphatase 137 U/L (38-126); Anion Gap 11 mmol/L (4-12); Aspartate Amino Transferase 33 U/L (14-36); Bilirubin,Total 1.3 mg/dL (0.2-1.3); Blood Urea Nitrogen 10 mg/dL (7-17); Calcium 8.8 mg/dL (8.4-10.2); Carbon Dioxide 21 mmol/L (22-30); Chloride 102 mmol/L (98-107); Estimated CRCL calculation 70 ml/min; Estimated Glomerular Filt Rate 57; Glucose 112 mg/dL (65-110); Lactic Acid Reflex 2.8 mmol/L (0.7-2.0); Lipase 138 U/L (23-300); Magnesium 2.1 mg/dL (1.6-2.3); Potassium 3.7 mmol/L (3.4-5.0); Sodium 134 mmol/L (137-145)
[2024-02-27 21:42] LABS: INR 1.6; Partial Thromboplastin Time 32.9 Seconds (22.3-36.8); Prothrombin Time 19.4 Seconds (11.1-14.7)
[2024-02-27 21:57] LABS: Troponin I 0.057 ng/mL (0.000-0.034)
[2024-02-27] MEDS: SODIUM CHLORIDE 0.9% IV 1,000 ML 150 ML IV CONT (22:31)
[2024-02-27 23:26] VITALS: PULSE 80; RESP 17
[2024-02-27 23:30] VITALS: PULSE 82; RESP 20
[2024-02-27 23:45] VITALS: PULSE 82; RESP 22; O2SAT 99
[2024-02-28] VITALS (30 sets, daily range): BP systolic 87–132; BP diastolic 47–87; PULSE 75–102; RESP 12–24; TEMP 36.3–36.9; O2SAT 97–100; BMI 42.0
--- NOTE | 2024-02-28 | ECHO_ITS ---
Patient Info Name: Tiarra Addison Age: 53 years : 1970 Gender: Female Ht: 67 in Wt: 268 lbs BSA: 2.46 m2 HR: 90 bpm BP: 99 / 79 mmHg Technical Quality: Poor Exam Date: 02/28/2024 11:25 AM Exam Location: Echo Lab Patient Status: Outpatient Admit Date: 02/28/2024 Staff Ordering Physician: Shaggy Johnson MD Tattoo Artist: Bonifacio Boyd RDCS Attending Provider: Regina Miller MD Exam Type: CA echo dop color flow w con Study Info Indications - murmur Complete two-dimensional, color flow and Doppler transthoracic echocardiogram is performed with contrast to opacify the left ventricle and to improve the deliniation of the left ventricle endocardial borders. Contrast/Agitated Saline Contrast/Ag. Saline: Definity Amount: 2.00 ml Existing IV Access: Yes Reason for Poor Study: poor echocardiographic windows Summary 1. Technically suboptimal study due to poor sonographic images. 2. Definity contrast administered improved wall motion interpretation. 3. Left ventricular chamber dimension is normal. 4. Left ventricular systolic function is normal, estimated at 65-70%. 5. There is mild concentric increased left ventricular wall thickness. 6. The left ventricular diastolic function is grade I diastolic dysfunction. 7. E/e' 9 is minimally elevated. 8. Left atrial chamber dimension is mildly enlarged. 9. No pulmonary hypertension, estimated pulmonary arterial systolic pressure is 28 mmHg. Left Ventricle Technically suboptimal study due to poor sonographic images. Definity contrast administered improved wall motion interpretation. E/e' 9 is minimally elevated. Left ventricular chamber dimension is normal. Left ventricular systolic function is normal, estimated at 65-70%. There is mild concentric increased left ventricular wall thickness. The left ventricular diastolic function is grade I diastolic dysfunction. Right Ventricle Right ventricular systolic function is normal and with normal TAPSE 2.2 cm. Right ventricular chamber dimension is normal. Left Atria Left atrial chamber dimension is mildly enlarged. Right Atria Right atrial chamber dimension is normal. Aortic Valve The aortic valve is not well visualized. Cannot determine number of aortic valve leaflets. There is no aortic valve stenosis based on valve gradients and area. There is no aortic valve regurgitation. Pulmonic Valve There is no pulmonic regurgitation. Mitral Valve There is no mitral valve stenosis. There is no mitral valve regurgitation. Tricuspid Valve There is no tricuspid valve regurgitation. No pulmonary hypertension, estimated pulmonary arterial systolic pressure is 28 mmHg. Pericardium/Pleural There is no pericardial effusion. Inferior Vena Cava Normal inferior vena cava with >50% collapse upon inspiration consistent with normal right atrial pressure, 5 mmHg. Aorta The aortic root size at the sinus of Valsalva is normal. Left Ventricular Outflow Tract Name Value Normal LVOT 2D LVOT Diameter 1.83 cm Pulmonic Valve Name Value Normal RVOT Doppler RVOT Peak Gradient 8 mmHg PV Doppler PV Peak Gradient 10 mmHg Mitral Valve Name Value Normal MV Doppler MV Peak Gradient 5 mmHg MV Mean Gradient 3 mmHg MV [employer] 552.03 cm/s2 MV PHT 0 s MV Area (PHT) 6.72 cm2 4.00-5.00 MV Diastolic Function MV E Peak Velocity 62.33 cm/s MV A Peak Velocity 92.85 cm/s MV E/A 0.67 MV Decel Time 0 s MV Annular TDI MV E/e' (Septal) 13.70 <=8.00 MV E/e' (Lateral) 7.66 <=8.00 MV E/e' (Average) 10.68 Tricuspid Valve Name Value Normal TV Regurgitation Doppler TR Peak Velocity 238.22 cm/s TR Peak Gradient 23 mmHg Estimated PAP/RSVP RA Pressure 5 mmHg <=5 PA Systolic Pressure 28 mmHg <36 RV Systolic Pressure 28 mmHg <36 Aorta Name Value Normal Ascending Aorta Ao Root Diameter (MM) 3.24 cm Ao Root Diam Index (MM) 1.32 cm/m2 Aortic Valve Name Value Normal AV Regurgitation 2D LVOT Area 2.64 cm2 Ventricles Name Value Normal LV Dimensions 2D/MM IVS Diastolic Thickness (2D) 1.24 cm 0.60-1.00 LVID Diastole (2D) 3.29 cm 3.80-5.20 LVIW Diastolic Thickness (2D) 1.42 cm 0.60-0.90 LVID Systole (2D) 1.92 cm 2.20-3.50 LVOT Diameter 1.83 cm LV Mass (2D Cubed) 146.50 g 67.00-162.00 LV Mass Index (2D Cubed) 0.01 g/cm2 0.00-0.01 Relative Wall Thickness (2D) 0.87 LV Fractional Shortening/Ejection Fraction 2D/MM LV Fractional Shortening (2D) 37 % 27-45 LV EF (2D Teichjhoan) 68 % 54-74 LV Diastolic Volume (4C MOD) 59.14 ml LV EF (4C MOD) 88 % LV Diastolic Volume (2C MOD) 50.48 ml LV EF (2C MOD) 89 % LV Diastolic Volume (BP MOD) 55.94 ml 46.00-106.00 LV Diastolic Volume Index (BP MOD) 0.02 l/m2 0.03-0.06 LV Systolic Volume (BP MOD) 6.26 ml 14.00-42.00 LV Systolic Volume Index (BP MOD) 0.00 l/m2 0.01-0.02 LV EF (BP MOD) 89 % 54-74 LV Diastolic Length (4C) 7.20 cm LV Systolic Length (4C) 4.75 cm LV Stroke Volume (4C MOD) 52.22 ml Atria Name Value Normal LA Dimensions LA Dimension (MM) 3.34 cm 2.70-3.80 LA Volume (4C A-L) 59.00 ml LA Volume (BP A-L) 54.61 ml RA Dimensions RA Area (4C) 12.82 cm2 <=18.00 Report Signatures
--- NOTE | 2024-02-28 | EST_ITS ---
Patient Info Name: Tiarra Addison Age: 53 years : 1970 Gender: Female Ht: 67 in Wt: 270 lbs BSA: 2.47 m2 HR: 76 bpm BP: 97 / 68 mmHg Exam Date: 02/28/2024 1:33 PM Exam Location: Echo Lab Patient Status: Inpatient Admit Date: 02/28/2024 Staff Ordering Physician: Shaggy Johnson MD Attending Provider: Regina Miller MD Exercise Technologist: Carmen Andrade RDCS Exercise Physician: DR. MONTERO Exam Type: CA stress vanesa w NM Study Info A regadenoson stress test was performed. Summary 1. Pharmacological stress test. 2. Baseline ECg shows TWI in leads III, AVF, V1, V3-4. 3. The ECG is non diagnostic because of being a pharmacological stress and with baseline TWI in several leads. However, no change in the ST-T waves were seen from the baseline. 4. Perfusion report to follow. Protocol: Lexiscan Stress ECG Details Stage: REST Duration (min): 4 min : 32 sec HR (bpm): 77 SBP (mmHg): 97 DBP (mmHg): 68 Stage: REST Duration (min): 7 min : 52 sec HR (bpm): 76 SBP (mmHg): 97 DBP (mmHg): 68 Stage: STAGE 1 Duration (min): 0 min : 59 sec HR (bpm): 98 SBP (mmHg): 102 DBP (mmHg): 68 Stage: RECOVERY Duration (min): 1 min : 0 sec HR (bpm): 90 SBP (mmHg): 102 DBP (mmHg): 68 Stage: RECOVERY Duration (min): 2 min : 0 sec HR (bpm): 87 SBP (mmHg): 102 DBP (mmHg): 68 Stage: RECOVERY Duration (min): 3 min : 0 sec HR (bpm): 85 SBP (mmHg): 92 DBP (mmHg): 65 Stage: RECOVERY Duration (min): 4 min : 0 sec HR (bpm): 85 SBP (mmHg): 92 DBP (mmHg): 65 Stage: RECOVERY Duration (min): 4 min : 15 sec HR (bpm): 84 SBP (mmHg): 92 DBP (mmHg): 65 Rest HR: 76 bpm Peak HR: 98 bpm Rest Sys BP: 97 mmHg Peak Sys BP: 102 mmHg Max Pred HR: 166 bpm % Max Pred HR: 59 % Target HR: 141 bpm Max RPP: 9,996 bpm*mmHg Total Time: 1 min : 0 sec Rest Lord BP: 68 mmHg Peak Lord BP: 68 mmHg Total Dose: 0.4 mg Report Signatures
--- NOTE | 2024-02-28 00:18 | ECG_ITS ---
Test Date: 2024-02-28 00:26:16 Measurements Intervals [place] Rate: 78 P: 24 AL: 170 QRS: -4 QRSD: 88 T: -4 QT: 447 QTc: 510 Interpretive Statements SINUS RHYTHM MINIMAL Q WAVES- HIGH LATERAL LEADS MODERATE T-WAVE ABNORMALITY, CONSIDER ANTERIOR ISCHEMIA BASELINE ARTIFACT- I, III, AVL ABNORMAL ECG Compared to ECG 02/27/2024 21:28:47 POSSIBLE ISCHEMIA NOW PRESENT Electronically Signed On 02-28-2024 06:39:59 BRAILLE TRANSCRIBER by Byron Quinones D.O.
[2024-02-28 00:26] LABS: Reflex Lactic Acid Yes or No Add Lactic
[2024-02-28 00:58] LABS: Troponin I 0.061 ng/mL (0.000-0.034)
[2024-02-28] MEDS: ASPIRIN 325 MG TABLET PO (01:25)
[2024-02-28] MEDS: MORPHINE SULFATE (*CRX) 2 MG/ML INJ IV PUSH (02:12)
--- NOTE | 2024-02-28 03:20 | ECG_ITS ---
Test Date: 2024-02-28 03:32:57 Measurements Intervals [place] Rate: 78 P: 30 [place]: 167 QRS: -4 QRSD: 86 T: 0 QT: 436 QTc: 499 Interpretive Statements SINUS RHYTHM MINIMAL Q WAVES- HIGH LATERAL LEADS MODERATE T-WAVE ABNORMALITY, CONSIDER ANTERIOR ISCHEMIA ABNORMAL ECG Compared to ECG 02/28/2024 00:26:16 No significant changes Electronically Signed On 02-28-2024 06:40:30 APPOINTMENT SCHEDULER by Byron Quinones D.O.
--- NOTE | 2024-02-28 03:42 | ADMGEN ---
This patient, Tiarra Addison, was admitted to IMU Room 213-01. Patient/family oriented to hospital policies and general routines including ID bracelet, bed and alarms, visiting hours, pain management, procedures, bathroom and other care routines, personal items, smoking policy, room service/diet, and visiting hours. Information on how to activate the Rapid Response Team has been discussed. Patient/Family are encouraged to report perceived risks to care and to ask questions if they do not understand what they are told or what they should do.
[2024-02-28 04:00] LABS: Troponin I 0.061 ng/mL (0.000-0.034)
[2024-02-28 05:26] LABS: Lactic Acid 2.2 mmol/L (0.7-2.0)
[2024-02-28] MEDS: SODIUM CHLORIDE 0.9% IV 1,000 ML 125 ML IV CONT ×2 (06:00→14:57)
--- NOTE | 2024-02-28 09:33 | P.HP_ITS ---
H&P: HPI History of Present Illness Date/Time: 02/28/24 09:33 Chief Complaint: Rectal bleeding Narrative: 53yo female with hx of gastric bypass, anemia, GI bleed with hemorrhoids and PUD, PE/DVT and HTN here for rectal bleeding. Patient has a history of normocytic anemia, thrombocytopenia and mild leukopenia. She has been seen by GI and Oncology. Thrombocytopenia secondary to fatty liver. Anemia may be related to malabsorption due to her history of gastric bypass. EGD in January showed hiatal hernia but no major findings other than previous gastric bypass. Colonoscopy in January showed internal hem orrhoids but otherwise no other concerning findings. Hemoglobin at time of discharge in January was 8.0. Patient has not been hospitalized since January. She has been taking iron and a PPI. Patient noted bright red blood per rectum over the past 3-4 days. Occurs with every bowel movement. She has been having 2-3 bowel movements a day. No clots. No rectal pain, burning or itching. No abdominal pain. No crampy pain prior to bowel movements. Occasional stool urgency. Bowel movements are soft. She does not strain. No vaginal bleeding. No dysuria or hematuria. She has decreased appetite and states that she has lost 30 lb with a past month. No nausea or vomiting. No early satiety above her normal satiety related to her bypass surgery. No fever or chills. No chest pain or palpitations. Stress test about 5 years ago was negative. No cough or shortness of breath. She walks with a walker. She has been unsteady on her feet. She did fall in December and again in January without injury. She has been off Xarelto since June. She has not followed up with Hematology or GI since last discharge. She has noted increasing shortness of breath with activity and this seems to be progressively worsening. She denies any chest, neck, back, shoulder or jaw pain with activity. Her blood pressure has been normal/high at home. Because of the persistent rectal bleeding, she present to the emergency room for evaluation. Patient was hemodynamically stable on admission. Lactic acid was 2.8 and trended down on repeat. White count was 12K with left shift, hemoglobin 10.3 and platelet count 127K. PT 19.4 with INR 1.6.. Sodium 134, serum bicarb 21, creatinine 1.2, glucose 112 and alk-phos 137 otherwise CMP is normal. Lipase is normal. Troponin elevated 0.057 but flat on repeat. CT abdomen pelvis with contrast shows DVT in the IVC, pelvic veins, common femoral veins, femoral veins and left profundus femoral vein with a filter in the inferior vena cava. Patient was guaiac positive in the ED. she was given Protonix, [place], IV fluids, aspirin and morphine. She was admitted for further care. Review of Systems Review of Systems: All systems reviewed & are unremarkable except as noted in HPI and below [facility] Past Medical History Medical History (Updated 02/28/24 @ 10:32 by Shaggy Johnson MD) Acute on chronic anemia Anemia History of several blood transfusions. 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 Glaucoma History of cellulitis History of deep venous thrombosis Hx pulmonary embolism Hypertension Hypothyroidism No longer on medication. Obesity, morbid, BMI 40.0-49.9 Osteoarthritis Peptic ulcer disease Pulmonary embolism (~04/2018) Right leg DVT Extensive right lower extremity DVT on ultrasound dated 08/26/2019. Surgical History Surgical History (Updated 02/28/24 @ 10:32 by Shaggy Johnson MD) History of 3 sections History of dilation and curettage History of endometrial ablation History of Adrienne-en-Y gastric bypass (~1999) History of tubal ligation Presence of IVC filter (~11/2018) Performed at [facility]. Family History Family History Mother Hypertension Dementia Father Hypertension Social History Social History Social History: The patient is and lives with her daughter. I believe her grandson lives next door. 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 Lifelong nonsmoker. She drinks perhaps 2 alcoholic beverages a week. No illicit substance use. She designates her son, Jose Willis, as her surrogate decision maker and she wishes to be a full code. Smoking status: Never smoker Alcohol intake: current Drinks per week: 3 Substance use: never Do You Feel Safe in your Home?: Yes Lack of Transportation: No Lack of Food: Never True Current Housing: I Have Housing Concerned About Future Housing: No Difficulty Paying Gas/Electric Bills: No Difficulty Paying for Meds: No Currently Unemployed: No Education: Bachelor's Degree Difficulty w/ Childcare or Family Care: No Living arrangements: with family Occupation/Education: retired Gender identity (if verbalized by the patient): Female Spiritual care concerns: No Agree to blood products: Yes Meds Home Medications and Allergies Home Medications Medication Instructions Recorded Confirmed Type famotidine 20 mg tablet 20 mg PO BID 08/12/19 02/28/24 History potassium chloride 10 mEq 10 meq PO DAILY 08/12/19 02/28/24 History tablet,extended release zolpidem 5 mg tablet 10 mg PO HS 08/12/19 02/28/24 History cyanocobalamin (vitamin B-12) 100 mcg (0.1 mL) IM MONTHLY #5 ea 08/21/19 02/28/24 Rx 1,000 mcg/mL injection kit folic acid 1 mg tablet 1 mg PO DAILY #30 tabs 08/21/19 02/28/24 Rx metoprolol succinate 25 mg 25 mg PO DAILY 10/13/19 02/28/24 History tablet,extended release 24 hr ferrous sulfate 325 mg (65 mg 325 mg PO DAILY 12/02/19 02/28/24 History iron) tablet omeprazole 40 mg capsule,delayed 40 mg PO DAILY 12/02/19 02/28/24 History release clotrimazole-betamethasone 1 1 applic topical BID #45 grams 04/08/20 02/28/24 Rx %-0.05 % topical cream lisinopril 10 mg tablet 10 mg PO DAILY 10/02/23 02/28/24 History oxycodone 10 mg tablet 10 mg PO Q6H PRN Pain 10/02/23 02/28/24 History fluoxetine 10 mg capsule 10 mg PO DAILY 02/28/24 02/28/24 History hydroxyzine pamoate 25 mg capsule 25 mg PO TID PRN Anxiety 02/28/24 02/28/24 History Allergies Allergy/AdvReac Type Severity Reaction Status Date / Time No Known Allergies Allergy Verified 02/27/24 13:15 Vital Signs Vital Signs - 24 hr 02/27/24 13:14 02/27/24 18:54 02/27/24 23:26 Temperature 97.2 F L 98 F Pulse Rate 95 89 80 Respiratory Rate 16 18 17 Blood Pressure 109/82 107/71 Pulse Oximetry 100 100 Oxygen Delivery 02/27/24 23:30 02/28/24 00:18 02/27/24 23:45 Temperature Pulse Rate 82 84 82 Respiratory Rate 20 16 22 H Blood Pressure 87/61 L Pulse Oximetry 98 99 Oxygen Delivery 02/28/24 00:03 02/28/24 00:47 02/28/24 01:00 Temperature Pulse Rate 80 83 84 Respiratory Rate 21 H 22 H 24 H Blood Pressure Pulse Oximetry 100 Oxygen Delivery 02/28/24 01:15 02/28/24 01:30 02/28/24 01:45 Temperature Pulse Rate 87 83 85 Respiratory Rate 21 H 16 24 H Blood Pressure Pulse Oximetry 100 Oxygen Delivery 02/28/24 02:00 02/28/24 02:01 02/28/24 02:03 Temperature Pulse Rate 79 81 80 Respiratory Rate 19 19 20 Blood Pressure 95/47 L 91/66 L Pulse Oximetry Oxygen Delivery 02/28/24 02:15 02/28/24 02:30 02/28/24 02:45 Temperature Pulse Rate 80 75 77 Respiratory Rate 12 18 19 Blood Pressure Pulse Oximetry Oxygen Delivery 02/28/24 03:00 02/28/24 03:15 02/28/24 04:19 Temperature Pulse Rate 86 81 81 Respiratory Rate 22 H 21 H 20 Blood Pressure 92/69 L Pulse Oximetry 99 Oxygen Delivery 02/28/24 03:45 02/28/24 04:00 02/28/24 04:00 Temperature 97.3 F L Pulse Rate 79 78 Respiratory Rate 16 Blood Pressure 132/87 Pulse Oximetry 100 Oxygen Delivery Room Air 02/28/24 06:00 02/28/24 08:00 02/28/24 09:20 Temperature 97.5 F L Pulse Rate 77 79 Respiratory Rate 16 Blood Pressure 99/79 L Pulse Oximetry 100 100 Oxygen Delivery Room Air Exam Narrative: AF 97.5 99/79 79 16 100% ra Gen - well appearing female in no acute respiratory distress who is nontoxic- appearing sitting up in bed HEENT - normocephalic. Atraumatic. Pupils equal round and reactive. Extrao cular motions intact. Sclera clear and anicteric. Nares patent. Oropharynx was poorly visualized. No oral lesions. Moist mucous membranes. Tongue was midline. Palate abdullahi symmetrically. Slight left facial weakness Neck - neck was supple. No dominant adenopathy, thyromegaly or masses. 2+ carotid upstrokes without bruits. Chest - lungs are clear to auscultation bilaterally. No wheezes or crackles. Breast exam was deferred. CV - heart was regular rate and rhythm. S1-S2. 2/6 systolic murmur t/o the precordium but loudest LLSB Abd - abdomen was soft. Nontender. Obese. No abd bruits. Positive bowel sounds. No organomegaly or masses. Ext - bilateral R>>L lymph edema. 2+ DP pulses bilaterally. Neuro - patient is alert and oriented x4. Strength is 5/5 in both upper and lower extremities. Cranial nerves 2-12 are intact. Speech is clear. Psych - normal mood and affect. Patient is pleasant and cooperative. Skin - warm and dry. No rashes noted. H&P: Results Labs Labs: Short CBC 02/27/24 Range/Units 21:17 WBC 12.0 H (4.5-10.0) K/mm3 Hgb 10.3 L (12.0-15.0) g/dL Hct 32.1 L (37.0-47.0) % Plt Count 127 L (150-375) k/mm3 BMP 02/27/24 21:17 Sodium 134 L Potassium 3.7 Chloride 102 Carbon Dioxide 21 L BUN 10 Creatinine 1.20 H Glucose 112 H Calcium 8.8 Cardiac Enzymes 02/27/24 02/28/24 02/28/24 Range/Units 21:17 00:16 03:29 Troponin I 0.057 H* 0.061 H* 0.061 H* (0.000-0.034) ng/mL Liver Function 02/27/24 Range/Units 21:17 Total Bilirubin 1.3 (0.2-1.3) mg/dL AST 33 (14-36) U/L ALT 14 (6-35) U/L Alkaline Phosphatase 137 H (38-126) U/L Albumin 3.9 (3.5-5.1) g/dL Assessment and Plan Assessment and plan (1) Bright red rectal bleeding: Code(s): K62.5 - Hemorrhage of anus and rectum Status: Acute Assessment and Plan: Patient again with GI blood loss. Recent endoscopy noted and suspect this is related to hemorrhoids. GI was contacted by ED but they had no further recommendations. Monitor HH for stability. HH may drop due to IV fluids Add Anusol (2) Elevated troponin: Code(s): R79.89 - Other specified abnormal findings of blood chemistry Status: Acute Assessment and Plan: Troponin elevated but flat on admission. Trop 0.057 -> 0.061. EKG showing NSR with ST-T wave changes anterior leads. Repeat EKG showing more evident T wave inversion. She does have a loud murmur but could be flow murmur from anemia. Consider also ischemia to chordea. No old Echo here Elevated Trop could be from HoTN (87/61 in ED) or from underlying cardiac disease given her hx of progressively worsening SOB. Check Echo. Order lexiscan. Cardiolgoy consult (3) Acute on chronic anemia: Code(s): D64.9 - Anemia, unspecified Status: Acute Assessment and Plan: Hgb 10.3 on admission which is better than from last admission. Suspect this will drop with IV fluids since may be dehydrated and from acute blood loss. Iron deficiency in November. Now on iron orally. No scistocytes noted. Check iron studies to see if absorbing oral iron. Check B12/folate. Add HIV and repeat LEIGHA Follow HH (4) History of deep venous thrombosis: Code(s): Z86.718 - Personal history of other venous thrombosis and embolism Status: Acute Assessment and Plan: Patient has a hx of DVT and now off Xarelto. She has chronic lymphedema probably related to chronic occlusion. CT with contrast showing extensive pelvic and abd DVT. Not great options for anticoagulation since she has chronic anemia and acute blood loss Hematology consult (5) CARLA (acute kidney injury): Code(s): N17.9 - Acute kidney failure, unspecified Status: Acute Assessment and Plan: Patient with Cr 1.2 with baseline 0.8. Probably related to poor oral intake, HoTN, anemia and MILLIE inhibitor. CT scan does show cortical thinning of the kidneys. She did receive contrast with CT scan. Monitor renal function, UOP and electrolytes. (6) History of Adrienne-en-Y gastric bypass: Onset Date: ~1999 Code(s): Z98.84 - Bariatric surgery status Status: Acute Assessment and Plan: Performed many years ago. She has lost some weight since September. Weight was 146kg in September but now weight down to 122kg. CT scan showing no acute findings. Monitor oral intake Plan DVT Prophylaxis - SCDs Code status - full
--- NOTE | 2024-02-28 09:40 | PC.NURSE ---
Pt discussed with Dr. Johnson. Provider will assess at bedside regarding pain.
[2024-02-28 11:30] LABS: Basophils Percent Auto 0.3 % (0.2-1.2); Eosinophils Absolute Auto 0.2 K/mm3 (0-0.3); Eosinophils Percent Auto 1.7 % (0-4.4); Hematocrit 29.5 % (37.0-47.0); Hemoglobin 9.4 g/dL (12.0-15.0); Immature Granulocyte Absolute 0.04 K/mm3 (0.00-0.031); Immature Granulocyte Percent A 0.4 % (0-0.5); Lymphocytes Absolute Auto 1.22 K/mm3 (0.9-3.2); Lymphocytes Percent Auto 13.6 % (18.3-44.2); Mean Corpuscular HGB Conc 31.9 g/dl (32-36); Mean Corpuscular Hemoglobin 28.5 pg (26-34); Mean Corpuscular Volume 89.4 fl (80-100); Mean Platelet Volume 9.3 fl (7.4-10.4); Monocytes Absolute Auto 0.7 K/mm3 (0.1-0.6); Monocytes Percent Auto 7.4 % (2.6-8.5); Neutrophils Absolute Auto 6.9 K/mm3 (1.3-6.7); Neutrophils Percent Auto 76.6 % (45.5-73.1); Platelet Count Result 106 k/mm3 (150-375); Red Cell Distribution Width 18.7 % (11.5-14.5)
[2024-02-28 11:47] LABS: Alanine Aminotransferase 11 U/L (6-35); Albumin Level 3.2 g/dL (3.5-5.1); Alkaline Phosphatase 124 U/L (38-126); Anion Gap 8 mmol/L (4-12); Aspartate Amino Transferase 32 U/L (14-36); Bilirubin,Total 1.2 mg/dL (0.2-1.3); Blood Urea Nitrogen 9 mg/dL (7-17); Calcium 8.5 mg/dL (8.4-10.2); Carbon Dioxide 22 mmol/L (22-30); Chloride 105 mmol/L (98-107); Estimated CRCL calculation 70 ml/min; Estimated Glomerular Filt Rate > 60; Glucose 93 mg/dL (65-110); Lactate Dehydrogenase 270 U/L (120-246); Potassium 3.9 mmol/L (3.4-5.0); Sodium 135 mmol/L (137-145)
[2024-02-28] MEDS: PERFLUTREN LIPID MICROSPHERES 1.5 ML VIAL DILUTED TO 10 ML TOTAL VOLUME IV PUSH (12:15)
[2024-02-28 12:33] LABS: Iron 79 ug/dL (37-170)
--- NOTE | 2024-02-28 12:33 | IVDEFINITY ---
Prior to administration of IV Definity the patient was educated on the risks and benefits of the imaging enhancing agent including potential adverse side effects. The patient verbalized understanding. Allergies were verified. No exclusion criteria were identified and at least one of the following inclusion criteria were met: 1) physician request, 2) patient technically difficult to image (per the [place] [employer] guidelines of two or more segments not discernable within the apical view), or 3) questionable left ventricular function. ?
[2024-02-28 12:43] LABS: Percent Iron Saturation 42 % (20-50); TOTAL IRON BINDING CAPACITY 187 ug/dL (261-462)
[2024-02-28 12:50] LABS: HIV 1/2 Ab P24 Ag Result Negative (Negative)
[2024-02-28 12:53] LABS: Folic Acid 3.3 ng/mL (2.76->20)
[2024-02-28 14:13] LABS: Free T4 Free Thyroxine Reflex 1.67 ng/dL (0.78-2.19)
--- NOTE | 2024-02-28 14:20 | PC.NURSE ---
Returned to floor from nuclear medicine.
[2024-02-28] MEDS: PANTOPRAZOLE 40 MG TABLET PO ×2 (14:46→21:20)
[2024-02-28] MEDS: ACETAMINOPHEN 325 MG TABLET 650 MG PO (14:46)
[2024-02-28] MEDS: FAMOTIDINE 20 MG TABLET PO ×2 (14:47→21:20)
[2024-02-28] MEDS: FLUoxetine HCL 10 MG CAPSULE PO (14:48)
[2024-02-28] MEDS: FOLIC ACID 1 MG TABLET PO (14:48)
[2024-02-28] MEDS: FERROUS SULFATE 325 MG TABLET DR PO (14:48)
[2024-02-28] MEDS: HYDROCORTISONE ACETATE 25 MG SUPPOSITORY RECTAL (14:49)
--- NOTE | 2024-02-28 15:26 | PM.CNCAR ---
Assessment and Plan Assessment and plan (1) Type 2 FL (myocardial infarction): Code(s): I21.A1 - Myocardial infarction type 2 Status: Acute Plan 1. Type 2 FL -in the setting of GI bleed and hypotension, hypoperfusion with elevated lactate 2. Lower GI bleeding 3. Hypertension 4. Anemia 5. History of gastric bypass -the troponin elevation is flat suggestive of a type 2 FL in the setting of hypertension lower GI bleed. The EKG changes are nonspecific and have been there the past as well -myocardial myocardial perfusion imaging shows normal perfusion with LV systolic function with 70% -no further cardiac investigations are required -no need for heparin -consider aspirin 81 mg when okay with GI -cardiology will sign off, please call us with any questions or concerns History of Present Illness History of Present Illness Consult date/time: 02/28/24 15:26 Reason For Visit: Elevated Troponin, rectal bleed/hemorrhoid, anemia Narrative: 53yo female with hx of gastric bypass, anemia, GI bleed with hemorrhoids and PUD, PE/DVT and HTN here for rectal bleeding. Patient has a history of normocytic anemia, thrombocytopenia and mild leukopenia. She was admitted with lower GI bleeding for the past 3-4 days. Blood pressure has been soft in the ED Cardiology consulted for elevated troponin and EKG changes ECG shows normal sinus rhythm, nonspecific ST T wave changes in the precordial leads V1 to V3 and 3 and AVF Troponins show a flat profile Lactate was elevated at time of presentation Currently at the time of my evaluation she denies any chest pain there was no chest pain at the time of presentation as well She does have chronic stable dyspnea Lexiscan stress test shows no perfusion defect suggestive and is low risk study Echo done shows normal LV systolic function, mild LVH Review of Systems Review of Systems: All systems reviewed & are unremarkable except as noted in HPI and below PMFSH Past Medical History Medical History (Updated 02/28/24 @ 15:51 by Ortega Montero MD) Acute on chronic anemia Anemia History of several blood transfusions. 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 Glaucoma History of cellulitis History of deep venous thrombosis Hx pulmonary embolism Hypertension Hypothyroidism No longer on medication. Obesity, morbid, BMI 40.0-49.9 Osteoarthritis Peptic ulcer disease Pulmonary embolism (~04/2018) Right leg DVT Extensive right lower extremity DVT on ultrasound dated 08/26/2019. Surgical History Surgical History (Updated 02/28/24 @ 10:32 by Shaggy Johnson MD) History of 3 sections History of dilation and curettage History of endometrial ablation History of Adrienne-en-Y gastric bypass (~1999) History of tubal ligation Presence of IVC filter (~11/2018) Performed at [facility]. Family History Family History Mother Hypertension Dementia Father Hypertension Social History Social History Social History: The patient is and lives with her daughter. I believe her grandson lives next door. 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 Lifelong nonsmoker. She drinks perhaps 2 alcoholic beverages a week. No illicit substance use. She designates her son, Jose Willis, as her surrogate decision maker and she wishes to be a full code. Smoking status: Never smoker Alcohol intake: current Drinks per week: 3 Substance use: never Do You Feel Safe in your Home?: Yes Lack of Transportation: No Lack of Food: Never True Current Housing: I Have Housing Concerned About Future Housing: No Difficulty Paying Gas/Electric Bills: No Difficulty Paying for Meds: No Currently Unemployed: No Education: Bachelor's Degree Difficulty w/ Childcare or Family Care: No Living arrangements: with family Occupation/Education: retired Gender identity (if verbalized by the patient): Female Spiritual care concerns: No Agree to blood products: Yes Meds Home Medications and Allergies Home Medications Medication Instructions Recorded Confirmed Type famotidine 20 mg tablet 20 mg PO BID 08/12/19 02/28/24 History potassium chloride 10 mEq 10 meq PO DAILY 08/12/19 02/28/24 History tablet,extended release zolpidem 5 mg tablet 10 mg PO HS 08/12/19 02/28/24 History cyanocobalamin (vitamin B-12) 100 mcg (0.1 mL) IM MONTHLY #5 ea 08/21/19 02/28/24 Rx 1,000 mcg/mL injection kit folic acid 1 mg tablet 1 mg PO DAILY #30 tabs 08/21/19 02/28/24 Rx metoprolol succinate 25 mg 25 mg PO DAILY 10/13/19 02/28/24 History tablet,extended release 24 hr ferrous sulfate 325 mg (65 mg 325 mg PO DAILY 12/02/19 02/28/24 History iron) tablet omeprazole 40 mg capsule,delayed 40 mg PO DAILY 12/02/19 02/28/24 History release clotrimazole-betamethasone 1 1 applic topical BID #45 grams 04/08/20 02/28/24 Rx %-0.05 % topical cream lisinopril 10 mg tablet 10 mg PO DAILY 10/02/23 02/28/24 History oxycodone 10 mg tablet 10 mg PO Q6H PRN Pain 10/02/23 02/28/24 History fluoxetine 10 mg capsule 10 mg PO DAILY 02/28/24 02/28/24 History hydroxyzine pamoate 25 mg capsule 25 mg PO TID PRN Anxiety 02/28/24 02/28/24 History Allergies Allergy/AdvReac Type Severity Reaction Status Date / Time No Known Allergies Allergy Verified 02/27/24 13:15 Vital Signs Vital Signs - 24 hr 02/27/24 18:54 02/27/24 23:26 02/27/24 23:30 Temperature 36.6 C Pulse Rate 89 80 82 Respiratory Rate 18 17 20 Blood Pressure 107/71 Pulse Oximetry 100 Oxygen Delivery 02/28/24 00:18 02/27/24 23:45 02/28/24 00:03 Temperature Pulse Rate 84 82 80 Respiratory Rate 16 22 H 21 H Blood Pressure 87/61 L Pulse Oximetry 98 99 100 Oxygen Delivery 02/28/24 00:47 02/28/24 01:00 02/28/24 01:15 Temperature Pulse Rate 83 84 87 Respiratory Rate 22 H 24 H 21 H Blood Pressure Pulse Oximetry 100 Oxygen Delivery 02/28/24 01:30 02/28/24 01:45 02/28/24 02:00 Temperature Pulse Rate 83 85 79 Respiratory Rate 16 24 H 19 Blood Pressure Pulse Oximetry Oxygen Delivery 02/28/24 02:01 02/28/24 02:03 02/28/24 02:15 Temperature Pulse Rate 81 80 80 Respiratory Rate 19 20 12 Blood Pressure 95/47 L 91/66 L Pulse Oximetry Oxygen Delivery 02/28/24 02:30 02/28/24 02:45 02/28/24 03:00 Temperature Pulse Rate 75 77 86 Respiratory Rate 18 19 22 H Blood Pressure Pulse Oximetry Oxygen Delivery 02/28/24 03:15 02/28/24 04:19 02/28/24 03:45 Temperature 36.3 C L Pulse Rate 81 81 79 Respiratory Rate 21 H 20 16 Blood Pressure 92/69 L 132/87 Pulse Oximetry 99 100 Oxygen Delivery 02/28/24 04:00 02/28/24 04:00 02/28/24 06:00 Temperature Pulse Rate 78 77 Respiratory Rate Blood Pressure Pulse Oximetry Oxygen Delivery Room Air 02/28/24 08:00 02/28/24 09:20 02/28/24 08:00 Temperature 36.4 C L Pulse Rate 79 Respiratory Rate 16 Blood Pressure 99/79 L Pulse Oximetry 100 100 100 Oxygen Delivery Room Air Room Air 02/28/24 08:00 02/28/24 10:00 02/28/24 14:40 Temperature 36.5 C Pulse Rate 79 90 102 H Respiratory Rate 18 Blood Pressure 102/77 Pulse Oximetry 97 Oxygen Delivery Exam Narrative: AF 97.5 99/79 79 16 100% ra Gen - well appearing female in no acute respiratory distress who is nontoxic-appearing sitting up in bed HEENT - normocephalic. Atraumatic. Pupils equal round and reactive. Extraocular motions intact. Sclera clear and anicteric. Nares patent. Oropharynx was poorly visualized. No oral lesions. Moist mucous membranes. Tongue was midline. Palate abdullahi symmetrically. Slight left facial weakness Neck - neck was supple. No dominant adenopathy, thyromegaly or masses. 2+ carotid upstrokes without bruits. Chest - lungs are clear to auscultation bilaterally. No wheezes or crackles. Breast exam was deferred. CV - heart was regular rate and rhythm. S1-S2. 2/6 systolic murmur t/o the precordium but loudest LLSB Abd - abdomen was soft. Nontender. Obese. No abd bruits. Positive bowel sounds. No organomegaly or masses. Ext - bilateral R>>L lymph edema. 2+ DP pulses bilaterally. Neuro - patient is alert and oriented x4. Strength is 5/5 in both upper and lower extremities. Cranial nerves 2-12 are intact. Speech is clear. Psych - normal mood and affect. Patient is pleasant and cooperative. Skin - warm and dry. No rashes noted. Results Labs and Meds 02/28/24 11:21 02/28/24 11:21 Lab results: Cardiac Enzymes 02/27/24 02/28/24 02/28/24 Range/Units 21:17 00:16 03:29 AST 33 (14-36) U/L Lactate Dehydrogenase (120-246) U/L Troponin I 0.057 H* 0.061 H* 0.061 H* (0.000-0.034) ng/mL 02/28/24 Range/Units 11: AST 32 (14-36) U/L Lactate Dehydrogenase 270 H (120-246) U/L Troponin I (0.000-0.034) ng/mL Coagulation 02/27/24 Range/Units 21:17 PT 19.4 H (11.1-14.7) Seconds APTT 32.9 (22.3-36.8) Seconds CBC 02/27/24 02/28/24 Range/Units 21:17 11: WBC 12.0 H 9.0 (4.5-10.0) K/mm3 RBC 3.61 L 3.30 L (4.2-5.4) M/mm3 Hgb 10.3 L 9.4 L (12.0-15.0) g/dL Hct 32.1 L 29.5 L (37.0-47.0) % Plt Count 127 L 106 L (150-375) k/mm3 Lymph # (Auto) 1.14 1.22 (0.9-3.2) K/mm3 [place] # (Auto) 0.7 H 0.7 H (0.1-0.6) K/mm3 Eos # (Auto) 0.1 0.2 (0-0.3) K/mm3 Baso # (Auto) 0.0 0.0 (0.0-0.1) K/mm3 Comprehensive Metabolic Panel 02/27/24 02/28/24 Range/Units 21:17 11: Sodium 134 L 135 L (137-145) mmol/L Potassium 3.7 3.9 (3.4-5.0) mmol/L Chloride 102 105 (98-107) mmol/L Carbon Dioxide 21 L 22 (22-30) mmol/L BUN 10 9 (7-17) mg/dL Creatinine 1.20 H 1.10 H (0.7-1.0) mg/dL Glucose 112 H 93 (65-110) mg/dL Calcium 8.8 8.5 (8.4-10.2) mg/dL AST 33 32 (14-36) U/L ALT 14 11 (6-35) U/L Alkaline Phosphatase 137 H 124 (38-126) U/L Total Protein 8.0 7.0 (6.3-8.2) g/dL Albumin 3.9 3.2 L (3.5-5.1) g/dL Intake and Output 02/27/24 02/28/24 02/28/24 23:59 07:59 15:59 Intake Total 1000 1200 1000 Output Total 50 50 Balance 1000 1150 950 Intake: IV 1000 1000 1000 Sodium Chloride 0.9% IV 1,000 1000 1000 1000 ml @ 125 mls/hr IV CONT .Q8H [facility] Rx#:[id number] Oral 200 Output: Urine 50 50 Patient Weight 02/28/24 23:59 Weight 121.8 kg
[2024-02-28 15:48] LABS: Total Triiodothyronine (T3) 0.88 NG/ML (0.97-1.69)
--- NOTE | 2024-02-28 16:22 | PCOTNOTE ---
Attempted to see pt. for occupational therapy evaluation. Pt. declined to participate at this time.
--- NOTE | 2024-02-28 17:37 | P.CONONC_ITS ---
[facility] - Date of Consult Date/Time: 02/28/24 17:37 Requesting Physician: Regina Miller MD Primary Care Provider: UNKNOWN,DOCTOR - Consult Narrative Reason for consult: Hypercoagulable state and anemia Narrative: Tiarra Addison is a 53 year old female with history of morbid obesity status post gastric bypass surgery in 1999 along with history of bilateral lower extremity DVT and PE status post IVC filter placement in February of 2019. Patient had right lower extremity DVT diagnosed 2 years ago and underwent thrombectomy. Patient now came into the hospital with rectal bleeding. She sto pped taking Xarelto in June of 2023 due to GI bleed. Patient had EGD done in January showed hiatal hernia. Colonoscopy showed internal hemorrhoids. Labs on this admission showed hemoglobin of 10.3 with platelet count of [id number]. Iron level was normal at 79 with normal iron saturation of 42%. Hemoglobin dropped to 9.4. CT scan abdomen and pelvis showed DVT in the pelvis and the high with filter in the IVC. She is complaining of the right lower extremity discomfort. Review of Systems - Review of Systems All systems reviewed & are unremarkable except as noted in HPI and [facility] Medical History: Medical History (Last Updated 02/28/24 @ 10:32 by Shaggy Johnson MD) Acute on chronic anemia Anemia History of several blood transfusions. 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 Glaucoma History of cellulitis History of deep venous thrombosis Hx pulmonary embolism Hypertension Hypothyroidism No longer on medication. Obesity, morbid, BMI 40.0-49.9 Osteoarthritis Peptic ulcer disease Pulmonary embolism Onset Date: ~04/2018 Right leg DVT Extensive right lower extremity DVT on ultrasound dated 08/26/2019. Surgical History: Surgical History (Last Updated 02/28/24 @ 10:32 by Shaggy Johnson MD) History of 3 sections History of dilation and curettage History of endometrial ablation History of Adrienne-en-Y gastric bypass Onset Date: ~1999 History of tubal ligation Presence of IVC filter Onset Date: ~11/2018 Performed at [facility]. Family History: Family History (Last Reviewed 02/28/24 @ 09:53 by Shaggy Johnson MD) Mother Hypertension Dementia Father Hypertension - Social History Social History: Social History (Last Reviewed 02/28/24 @ 09:53 by Shaggy Johnson MD) Gender Identity: Gender identity (if verbalized by the patient): Female Alcohol Use: Alcohol intake: current Drinks per week: 3 Substance Use: Substance use: never Others: Spiritual care concerns: No Agree to blood products: Yes Living Arrangements: Living arrangements: with family Oppucation/Education: Occupation/Education: retired Smoking Status: Smoking status: Never smoker Social Determinants of Health: Do You Feel Safe in your Home?: Yes Has the Lack of Transportation Kept You From Medical Appointments or From Getting Medications?: No Within the Past 12 Months, Were You Worried Whether Your Food Would Run Out Before You Got Money to Buy More?: Never True What is Your Housing Situation Today?: I Have Housing Are You Worried That in the Next 2 Months, You May Not Have Your Own Housing to Live In?: No Do You Have Trouble Paying Your Heating Or Electricity Bill?: No Do You Have Trouble Paying For Medicines?: No Are You Currently Unemployed and Looking for Work?: No Highest Level of Education Completed: Bachelor's Degree Do You Have Trouble With Childcare or the Care of a Family Member?: No Exam - Vital Signs Vital Signs - 24 hr 02/27/24 18:54 02/27/24 23:26 02/27/24 23:30 Temperature 36.6 C Pulse Rate 89 80 82 Respiratory Rate 18 17 20 Blood Pressure 107/71 Pulse Oximetry 100 Oxygen Delivery 02/28/24 00:18 02/27/24 23:45 02/28/24 00:03 Temperature Pulse Rate 84 82 80 Respiratory Rate 16 22 H 21 H Blood Pressure 87/61 L Pulse Oximetry 98 99 100 Oxygen Delivery 02/28/24 00:47 02/28/24 01:00 02/28/24 01:15 Temperature Pulse Rate 83 84 87 Respiratory Rate 22 H 24 H 21 H Blood Pressure Pulse Oximetry 100 Oxygen Delivery 02/28/24 01:30 02/28/24 01:45 02/28/24 02:00 Temperature Pulse Rate 83 85 79 Respiratory Rate 16 24 H 19 Blood Pressure Pulse Oximetry Oxygen Delivery 02/28/24 02:01 02/28/24 02:03 02/28/24 02:15 Temperature Pulse Rate 81 80 80 Respiratory Rate 19 20 12 Blood Pressure 95/47 L 91/66 L Pulse Oximetry Oxygen Delivery 02/28/24 02:30 02/28/24 02:45 02/28/24 03:00 Temperature Pulse Rate 75 77 86 Respiratory Rate 18 19 22 H Blood Pressure Pulse Oximetry Oxygen Delivery 02/28/24 03:15 02/28/24 04:19 02/28/24 03:45 Temperature 36.3 C L Pulse Rate 81 81 79 Respiratory Rate 21 H 20 16 Blood Pressure 92/69 L 132/87 Pulse Oximetry 99 100 Oxygen Delivery 02/28/24 04:00 02/28/24 04:00 02/28/24 06:00 Temperature Pulse Rate 78 77 Respiratory Rate Blood Pressure Pulse Oximetry Oxygen Delivery Room Air 02/28/24 08:00 02/28/24 09:20 02/28/24 08:00 Temperature 36.4 C L Pulse Rate 79 Respiratory Rate 16 Blood Pressure 99/79 L Pulse Oximetry 100 100 100 Oxygen Delivery Room Air Room Air 02/28/24 08:00 02/28/24 10:00 02/28/24 14:40 Temperature 36.5 C Pulse Rate 79 90 102 H Respiratory Rate 18 Blood Pressure 102/77 Pulse Oximetry 97 Oxygen Delivery 02/28/24 14:30 02/28/24 12:00 02/28/24 14:00 Temperature Pulse Rate 80 91 Respiratory Rate Blood Pressure Pulse Oximetry 97 Oxygen Delivery Room Air 02/28/24 16:00 Temperature 36.9 C Pulse Rate 86 Respiratory Rate 16 Blood Pressure 100/58 L Pulse Oximetry 98 Oxygen Delivery - Exam HEENT: EOMI, mucous membranes moist and pink Neck: supple Lungs: clear to auscultation, normal air movement Heart: no murmurs, gallops, or rubs, regular rhythm, regular rate Abdomen: abdomen soft, non-distended, normal bowel sounds Extremities: normal pulses Integumentary: no abnormalities Neurological: normal speech Psychological: mental status NL, mood NL - Lab Results Laboratory Last Values WBC 9.0 K/mm3 (4.5-10.0) 02/28/24 11:21 RBC 3.30 M/mm3 (4.2-5.4) L 02/28/24 11:21 Hgb 9.4 g/dL (12.0-15.0) L 02/28/24 11:21 Hct 29.5 % (37.0-47.0) L 02/28/24 11:21 MCV 89.4 fl (80-100) 02/28/24 11:21 MCH 28.5 pg (26-34) 02/28/24 11:21 MCHC 31.9 g/dl (32-36) L 02/28/24 11:21 RDW 18.7 % (11.5-14.5) H 02/28/24 11:21 Plt Count 106 k/mm3 (150-375) L 02/28/24 11:21 MPV 9.3 fl (7.4-10.4) 02/28/24 11:21 Immature Gran % (Auto) 0.4 % (0-0.5) 02/28/24 11:21 Neut % (Auto) 76.6 % (45.5-73.1) H 02/28/24 11:21 Lymph % (Auto) 13.6 % (18.3-44.2) L 02/28/24 11:21 Garza % (Auto) 7.4 % (2.6-8.5) 02/28/24 11:21 Eos % (Auto) 1.7 % (0-4.4) 02/28/24 11:21 Baso % (Auto) 0.3 % (0.2-1.2) 02/28/24 11:21 Lymph # (Auto) 1.22 K/mm3 (0.9-3.2) 02/28/24 11:21 Garza # (Auto) 0.7 K/mm3 (0.1-0.6) H 02/28/24 11:21 Eos # (Auto) 0.2 K/mm3 (0-0.3) 02/28/24 11:21 Baso # (Auto) 0.0 K/mm3 (0.0-0.1) 02/28/24 11:21 Abs Immat Gran (auto) 0.04 K/mm3 (0.00-0.031) H 02/28/24 11:21 Absolute Neuts (auto) 6.9 K/mm3 (1.3-6.7) H 02/28/24 11:21 Absolute Nucleated RBC 0.000 K/mm3 (0.0-0.012) 02/28/24 11:21 Nucleated RBC % 0.0 % (0.0-0.2) 02/28/24 11:21 % Immature Plt Fraction 2.4 % (0.9-11.2) 02/27/24 21:17 PT 19.4 Seconds (11.1-14.7) H 02/27/24 21:17 INR 1.6 02/27/24 21:17 APTT 32.9 Seconds (22.3-36.8) 02/27/24 21:17 Sodium 135 mmol/L (137-145) L 02/28/24 11:21 Potassium 3.9 mmol/L (3.4-5.0) 02/28/24 11:21 Chloride 105 mmol/L (98-107) 02/28/24 11:21 Carbon Dioxide 22 mmol/L (22-30) 02/28/24 11:21 Anion Gap 8 mmol/L (4-12) 02/28/24 11:21 BUN 9 mg/dL (7-17) 02/28/24 11:21 Creatinine 1.10 mg/dL (0.7-1.0) H 02/28/24 11:21 Estim Creat Clear Calc 70 ml/min 02/28/24 11:21 Estimated GFR > 60 (59-) 02/28/24 11:21 Glucose 93 mg/dL (65-110) 02/28/24 11:21 Lactic Acid 2.2 mmol/L (0.7-2.0) H 02/28/24 04:53 Calcium 8.5 mg/dL (8.4-10.2) 02/28/24 11:21 Magnesium 2.1 mg/dL (1.6-2.3) 02/27/24 21:17 Iron 79 ug/dL (37-170) 02/28/24 11:21 TIBC 187 ug/dL (261-462) L 02/28/24 11:21 % Saturation 42 % (20-50) 02/28/24 11:21 Ferritin 147.00 ng/mL (11.1-264) 02/28/24 11:21 Total Bilirubin 1.2 mg/dL (0.2-1.3) 02/28/24 11:21 AST 32 U/L (14-36) 02/28/24 11:21 ALT 11 U/L (6-35) 02/28/24 11:21 Alkaline Phosphatase 124 U/L (38-126) 02/28/24 11:21 Lactate Dehydrogenase 270 U/L (120-246) H 02/28/24 11:21 Troponin I 0.061 ng/mL (0.000-0.034) H* 02/28/24 03:29 Total Protein 7.0 g/dL (6.3-8.2) 02/28/24 11:21 Albumin 3.2 g/dL (3.5-5.1) L 02/28/24 11:21 Lipase 138 U/L (23-300) 02/27/24 21:17 Vitamin B12 664.0 pg/mL (239-931) 02/28/24 11:21 Folate 3.3 ng/mL (2.76->20) 02/28/24 11:21 TSH (Reflex) 4.770 uIU/mL (0.465-4.68) H 02/28/24 11:21 Free T4 1.67 ng/dL (0.78-2.19) 02/28/24 11:21 Total T3 0.88 NG/ML (0.97-1.69) L 02/28/24 11:21 HIV 1&2 Ab/P24 Ag 4thGn Negative (Negative) 02/28/24 11: Blood Type O Positive 02/28/24 00:16 Antibody Screen Negative 02/28/24 00:16 Meds Home Medications Medication Instructions Recorded Confirmed Type famotidine 20 mg tablet 20 mg PO BID 08/12/19 02/28/24 History potassium chloride 10 mEq 10 meq PO DAILY 08/12/19 02/28/24 History tablet,extended release zolpidem 5 mg tablet 10 mg PO HS 08/12/19 02/28/24 History cyanocobalamin (vitamin B-12) 100 mcg (0.1 mL) IM MONTHLY #5 ea 08/21/19 02/28/24 Rx 1,000 mcg/mL injection kit folic acid 1 mg tablet 1 mg PO DAILY #30 tabs 08/21/19 02/28/24 Rx metoprolol succinate 25 mg 25 mg PO DAILY 10/13/19 02/28/24 History tablet,extended release 24 hr ferrous sulfate 325 mg (65 mg 325 mg PO DAILY 12/02/19 02/28/24 History iron) tablet omeprazole 40 mg capsule,delayed 40 mg PO DAILY 12/02/19 02/28/24 History release clotrimazole-betamethasone 1 1 applic topical BID #45 grams 04/08/20 02/28/24 Rx %-0.05 % topical cream lisinopril 10 mg tablet 10 mg PO DAILY 10/02/23 02/28/24 History oxycodone 10 mg tablet 10 mg PO Q6H PRN Pain 10/02/23 02/28/24 History fluoxetine 10 mg capsule 10 mg PO DAILY 02/28/24 02/28/24 History hydroxyzine pamoate 25 mg capsule 25 mg PO TID PRN Anxiety 02/28/24 02/28/24 History Allergies Allergy/AdvReac Type Severity Reaction Status Date / Time No Known Allergies Allergy Verified 02/27/24 13:15 Results - Labs CBC & Chem 7: 02/28/24 11:21 02/28/24 11:21 Labs: Short CBC 02/27/24 02/28/24 Range/Units 21:17 11:21 WBC 12.0 H 9.0 (4.5-10.0) K/mm3 Hgb 10.3 L 9.4 L (12.0-15.0) g/dL Hct 32.1 L 29.5 L (37.0-47.0) % Plt Count 127 L 106 L (150-375) k/mm3 BMP 02/27/24 02/28/24 21:17 11:21 Sodium 134 L 135 L Potassium 3.7 3.9 Chloride 102 105 Carbon Dioxide 21 L 22 BUN 10 9 Creatinine 1.20 H 1.10 H Glucose 112 H 93 Calcium 8.8 8.5 Cardiac Enzymes 02/27/24 02/28/24 02/28/24 Range/Units 21:17 00:16 03:29 Troponin I 0.057 H* 0.061 H* 0.061 H* (0.000-0.034) ng/mL Liver Function 02/27/24 02/28/24 Range/Units 21:17 11:21 Total Bilirubin 1.3 1.2 (0.2-1.3) mg/dL AST 33 32 (14-36) U/L ALT 14 11 (6-35) U/L Alkaline Phosphatase 137 H 124 (38-126) U/L Albumin 3.9 3.2 L (3.5-5.1) g/dL Assessment and Plan - Additional Plan Normocytic anemia with thrombocytopenia. Patient is a 53-year-old obese female known to me with history of thromboembolic events. She also has a history of gastric bypass surgery. Patient has fatty liver. She came into the hospital with complain of rectal bleeding. She has a history of internal hemorrhoids diagnosed on the recent colonoscopy in January. Iron studies are normal. LDH was slightly elevated. Given her history of bleeding likely hemorrhoidal bleeding she may benefit from surgery consultation. Once her bleeding stops then we will consider low-dose anticoagulation therapy for her DVT involving the right lower extremity. Patient is uncomfortable with the right lower extremity pain. I will get the Doppler studies to look into the chronicity of the DVT. In the meantime will get blood workup for hemolytic anemia as well due to elevated LDH. I have provided her my office information for follow-up on her anemia and hypercoagulable condition.
[2024-02-28] MEDS: MELATONIN 5 MG TABLET PO (22:21)
[2024-02-28] MEDS: traMADol HCL (*CRX) 50 MG TABLET PO (22:21)
[2024-02-28 23:09] LABS: Hematocrit 27.8 % (37.0-47.0); Hemoglobin 8.9 g/dL (12.0-15.0)
[2024-02-29] VITALS (16 sets, daily range): BP systolic 97–106; BP diastolic 60–86; PULSE 68–108; RESP 14–18; TEMP 36.4–37.1; O2SAT 97–100
[2024-02-29] MEDS: ACETAMINOPHEN 325 MG TABLET 650 MG PO ×2 (04:04→12:06)
[2024-02-29 04:57] LABS: Hematocrit 28.6 % (37.0-47.0); Hemoglobin 8.9 g/dL (12.0-15.0); Mean Corpuscular HGB Conc 31.1 g/dl (32-36); Mean Corpuscular Volume 89.9 fl (80-100); Mean Platelet Volume 10.8 fl (7.4-10.4); Platelet Count Result 107 k/mm3 (150-375); Red Blood Count 3.18 M/mm3 (4.2-5.4); Red Cell Distribution Width 18.6 % (11.5-14.5); White Blood Count 8.9 K/mm3 (4.5-10.0)
[2024-02-29 05:09] LABS: Anion Gap 4 mmol/L (4-12); Blood Urea Nitrogen 9 mg/dL (7-17); Calcium 8.5 mg/dL (8.4-10.2); Carbon Dioxide 25 mmol/L (22-30); Chloride 106 mmol/L (98-107); Estimated CRCL calculation 72 ml/min; Estimated Glomerular Filt Rate > 60; Glucose 95 mg/dL (65-110); Phosphorus 3.3 mg/dL (2.5-4.5); Potassium 4.3 mmol/L (3.4-5.0); Sodium 135 mmol/L (137-145)
[2024-02-29] MEDS: FAMOTIDINE 20 MG TABLET PO ×2 (08:38→21:53)
[2024-02-29] MEDS: FERROUS SULFATE 325 MG TABLET DR PO (08:38)
[2024-02-29] MEDS: FLUoxetine HCL 10 MG CAPSULE PO (08:39)
[2024-02-29] MEDS: HYDROCORTISONE ACETATE 25 MG SUPPOSITORY RECTAL ×2 (08:39→21:54)
[2024-02-29] MEDS: FOLIC ACID 1 MG TABLET PO (08:39)
[2024-02-29] MEDS: PANTOPRAZOLE 40 MG TABLET PO ×2 (08:39→21:53)
--- NOTE | 2024-02-29 08:56 | P.CONGI_ITS ---
Assessment and Plan Assessment and plan (1) Acute on chronic anemia: Code(s): D64.9 - Anemia, unspecified Status: Acute Assessment and Plan: the patient's rectal bleeding is caused by hemorroids, which is causing anemia. She will be evaluated by surgery, for consideration of hemorroidectomy. More importantly, there is ground to suspect advanced liver disease - cirrhosis (prolongued INR, low albumin, low platelets, history of morbid obesity despite gastric bypass, history of significant alcohol abuse until recently) - currently named metALD (Metabolic syndrome + alcohol related liver disease). Will follow patient once discharged from the hospital, and will arrange for a Fibroscan to be performed at [facility] to semi quantify degree of liver fibrosis. Will order serological liver fibrosis panel for now. (2) History of deep venous thrombosis: Code(s): Z86.718 - Personal history of other venous thrombosis and embolism Status: Acute (3) Thrombocytopenia: Code(s): D69.6 - Thrombocytopenia, unspecified Status: Acute (4) Anemia: Qualifiers: Anemia type: other cause Qualified Code(s): D62 - Acute posthemorrhagic anemia Code(s): D64.9 - Anemia, unspecified Status: Acute GI Consult Note Consult date/time: 02/29/24 08:56 Reason for consult: rectal bleeding HPI: Tiarra Addison is a 53 year old female admitted for persistent lower GI blee ding. Her history is significant for a prior Adrienne en Y gastric bypass in year 1999 and significant ETOH abuse from her 20's up untill 6 months ago (average of 1 bottle of wine per day). Of note, she had an EGD last month (Dr Weaver) showing a small gastric pouch with no bleeding and a small hiatal hernia. A colonoscopy done the same day was totally normal except for small non bleeding hemorroids. Her hemoglobin has dropped from 11.3 in September this year to 8.9 today. Her most remarkable laboratory data shows a persistently low platelet count (02/26: 127K, 02/28: 107), INR 1.6 (PT 19.4) 02/26, albumin 3.2. Iron saturation 02/26 42%. In addition, patient has a hypercoagulable state, with an IVC filter in place and recent doppler study showing DVT. Review of Systems Review of Systems: All systems reviewed & are unremarkable except as noted in HPI and below PMFSH Past Medical History Medical History (Updated 02/28/24 @ 17:49 by Hardik Mane MD) Acute on chronic anemia Anemia History of several blood transfusions. 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 Glaucoma History of cellulitis History of deep venous thrombosis Hx pulmonary embolism Hypertension Hypothyroidism No longer on medication. Obesity, morbid, BMI 40.0-49.9 Osteoarthritis Peptic ulcer disease Pulmonary embolism (~04/2018) Right leg DVT Extensive right lower extremity DVT on ultrasound dated 08/26/2019. Surgical History Surgical History (Updated 02/28/24 @ 10:32 by Shaggy Johnson MD) History of 3 sections History of dilation and curettage History of endometrial ablation History of Adrienne-en-Y gastric bypass (~1999) History of tubal ligation Presence of IVC filter (~11/2018) Performed at [facility]. Family History Family History Mother Hypertension Dementia Father Hypertension Social History Social History Social History: The patient is and lives with her daughter. I believe her grandson lives next door. 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 Lifelong nonsmoker. She drinks perhaps 2 alcoholic beverages a week. No illicit substance use. She designates her son, Jose Willis, as her surrogate decision maker and she wishes to be a full code. Smoking status: Never smoker Alcohol intake: current Drinks per week: 3 Substance use: never Do You Feel Safe in your Home?: Yes Lack of Transportation: No Lack of Food: Never True Current Housing: I Have Housing Concerned About Future Housing: No Difficulty Paying Gas/Electric Bills: No Difficulty Paying for Meds: No Currently Unemployed: No Education: Bachelor's Degree Difficulty w/ Childcare or Family Care: No Living arrangements: with family Occupation/Education: retired Gender identity (if verbalized by the patient): Female Spiritual care concerns: No Agree to blood products: Yes Meds Home Medications and Allergies Home Medications Medication Instructions Recorded Confirmed Type famotidine 20 mg tablet 20 mg PO BID 08/12/19 02/28/24 History potassium chloride 10 mEq 10 meq PO DAILY 08/12/19 02/28/24 History tablet,extended release zolpidem 5 mg tablet 10 mg PO HS 08/12/19 02/28/24 History cyanocobalamin (vitamin B-12) 100 mcg (0.1 mL) IM MONTHLY #5 ea 08/21/19 02/28/24 Rx 1,000 mcg/mL injection kit folic acid 1 mg tablet 1 mg PO DAILY #30 tabs 08/21/19 02/28/24 Rx metoprolol succinate 25 mg 25 mg PO DAILY 10/13/19 02/28/24 History tablet,extended release 24 hr ferrous sulfate 325 mg (65 mg 325 mg PO DAILY 12/02/19 02/28/24 History iron) tablet omeprazole 40 mg capsule,delayed 40 mg PO DAILY 12/02/19 02/28/24 History release clotrimazole-betamethasone 1 1 applic topical BID #45 grams 04/08/20 02/28/24 Rx %-0.05 % topical cream lisinopril 10 mg tablet 10 mg PO DAILY 10/02/23 02/28/24 History oxycodone 10 mg tablet 10 mg PO Q6H PRN Pain 10/02/23 02/28/24 History fluoxetine 10 mg capsule 10 mg PO DAILY 02/28/24 02/28/24 History hydroxyzine pamoate 25 mg capsule 25 mg PO TID PRN Anxiety 02/28/24 02/28/24 History Allergies Allergy/AdvReac Type Severity Reaction Status Date / Time No Known Allergies Allergy Verified 02/27/24 13:15 Vital Signs Vital Signs - 24 hr 02/28/24 09:20 02/28/24 10:00 02/28/24 14:40 Temperature 97.7 F Pulse Rate 90 102 H Respiratory Rate 18 Blood Pressure 102/77 Pulse Oximetry 100 97 Oxygen Delivery Room Air 02/28/24 14:30 02/28/24 12:00 02/28/24 14:00 Temperature Pulse Rate 80 91 Respiratory Rate Blood Pressure Pulse Oximetry 97 Oxygen Delivery Room Air 02/28/24 16:00 02/28/24 16:00 02/28/24 18:00 Temperature 98.4 F Pulse Rate 86 80 78 Respiratory Rate 16 Blood Pressure 100/58 L Pulse Oximetry 98 Oxygen Delivery 02/28/24 16:00 02/28/24 20:00 02/28/24 20:00 Temperature 98.3 F Pulse Rate 85 86 Respiratory Rate 16 Blood Pressure 104/65 Pulse Oximetry 98 Oxygen Delivery Room Air 02/28/24 22:00 02/28/24 20:00 02/29/24 00:00 Temperature Pulse Rate 84 Respiratory Rate Blood Pressure Pulse Oximetry Oxygen Delivery Room Air Room Air 02/29/24 00:00 02/29/24 00:00 02/29/24 02:00 Temperature 98.1 F Pulse Rate 84 87 86 Respiratory Rate 18 Blood Pressure 99/61 L Pulse Oximetry 100 Oxygen Delivery 02/29/24 04:00 02/29/24 04:00 02/29/24 04:00 Temperature 98.0 F Pulse Rate 78 87 Respiratory Rate 18 Blood Pressure 99/69 L Pulse Oximetry 100 Oxygen Delivery Room Air 02/29/24 06:00 02/29/24 07:49 Temperature 98.1 F Pulse Rate 73 80 Respiratory Rate 16 Blood Pressure 105/67 Pulse Oximetry 97 Oxygen Delivery Exam Const: General: cooperative and healthy appearing Resp: Effort & Inspection: normal respiratory effort and able to speak in complete sentences Auscultation: clear to auscultation bilaterally Cardio: Rate: regular rate Rhythm: regular rhythm GI: Inspection: normal to inspection GI Palp: No No hepatosplenomegaly present Auscultation: normal bowel sounds Rectal Exam: deferred Skin: General skin exam: normal color Psych: Appearance: grossly normal Mental Status: mental status grossly nor mal Results Labs 02/29/24 04:34 02/29/24 04:34 Labs: Short CBC 02/28/24 02/28/24 02/29/24 Range/Units 11: 23:03 04:34 WBC 9.0 8.9 (4.5-10.0) K/mm3 Hgb 9.4 L 8.9 L 8.9 L (12.0-15.0) g/dL Hct 29.5 L 27.8 L 28.6 L (37.0-47.0) % Plt Count 106 L 107 L (150-375) k/mm3 BMP 02/28/24 02/29/24 11:21 04:34 Sodium 135 L 135 L Potassium 3.9 4.3 Chloride 105 106 Carbon Dioxide 22 25 BUN 9 9 Creatinine 1.10 H 1.10 H Glucose 93 95 Calcium 8.5 8.5 Liver Function 02/28/24 02/29/24 Range/Units 11:21 04:34 Total Bilirubin 1.2 (0.2-1.3) mg/dL AST 32 (14-36) U/L ALT 11 (6-35) U/L Alkaline Phosphatase 124 (38-126) U/L Albumin 3.2 L 3.0 L (3.5-5.1) g/dL
--- NOTE | 2024-02-29 11:50 | PM.CNGS ---
Assessment and Plan Assessment and plan (1) Grade II internal hemorrhoids: Code(s): K64.1 - Second degree hemorrhoids Status: Acute Assessment and Plan: patient appears to have recurrent bleeding internal hemorrhoids that are causing significant anemia. This is complicated by the fact that she also has DVTs and will likely need anticoagulation. This is further complicated by the fact that she has thrombocytopenia and elevated INR. Certain hemorrhoid procedures will be high risk for major bleeding due to these findings. Initiating conservative measures with the ring Anusol suppositories, Metamucil fiber supplementation, adequate fluid intake, and Sitz baths may help prevent recurrent bleeding at this time. If H&H remained stable and bleeding seems to have subsided, could consider initiating anticoagulation. If bleeding continues, then we will plan for rectal exam under anesthesia and transanal hemorrhoid dearterialization procedure within the next couple days. (2) Acute on chronic anemia: Code(s): D64.9 - Anemia, unspecified Status: Acute (3) Hepatic steatosis: Code(s): K76.0 - Fatty (change of) liver, not elsewhere classified Status: Acute (4) Thrombocytopenia: Code(s): D69.6 - Thrombocytopenia, unspecified Status: Acute Assessment and Plan: Patient being evaluated by Hematology. Thrombocytopenia and elevated INR could be multifactorial due to consumptive process with recurrent hemorrhoid bleeding, Farideh absorbed of process after Adrienne-en-Y gastric bypass, and possible chronic liver disease secondary to hepatic steatosis and alcohol use. Multi-vitamin ordered and GI following for cirrhosis workup. (5) History of Adrienne-en-Y gastric bypass: Onset Date: ~1999 Code(s): Z98.84 - Bariatric surgery status Status: Acute History of Present Illness Consult details Consult date: 02/29/24 Reason for consult: other (internal hemorrhoids) Requesting physician: Shaggy Johnson MD Narrative: This is a 53-year-old woman who I am asked to see for bleeding internal hemorrhoids. She presented to the emergency department with lightheadedness and weakness and was found to be anemic. She was having rectal bleeding leading up to this. She states that over the past 6 months she has had an episode about every 2-3 months where she has fairly profound rectal bleeding which causes symptomatic anemia. She has not had any treatment for the internal hemorrhoids as of yet. She did have a colonoscopy a couple months ago which was normal other than internal hemorrhoids. She also had an EGD at that time which showed no source of bleeding. The patient has a history of fatty liver disease and history of Adrienne-en-Y gastric bypass. She has a prior history of regular daily alcohol use, but has significantly reduced alcohol intake for about the past year. 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 She was previously on anticoagulation but had to stop due to frequent rectal bleeding. She also has thrombocytopenia and elevated INR. Patient states that her rectal bleeding seems to have improved significantly since being admitted. She denies any significant constipation. She denies rectal pain or prolapsing hemorrhoids that need to be manually reduced. Review of Systems Review of Systems: All systems reviewed & are unremarkable except as noted in HPI and below Eyes: Eyes: Denies change in vision ENT: Denies hearing loss, Denies neck pain and Denies sore throat Cardiovascular: Cardiovascular: Denies chest pain and Denies dyspnea Respiratory: Respiratory: Denies cough, Denies dyspnea and Denies wheezing Gastrointestinal: Gastrointestinal: Reports as per HPI Genitourinary: Genitourinary: Denies hematuria and Denies dysuria Musculoskeletal: Musculoskeletal: Denies arthralgias, Denies joint swelling and Denies neck pain Allergic/Immunologic: Allergic/Immunologic: Denies wheezing [facility] Past Medical History Medical History (Updated 02/29/24 @ 11:58 by Garrett Nichols DO) Acute on chronic anemia Anemia History of several blood transfusions. 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 Glaucoma History of cellulitis History of deep venous thrombosis Hx pulmonary embolism Hypertension Hypothyroidism No longer on medication. Obesity, morbid, BMI 40.0-49.9 Osteoarthritis Peptic ulcer disease Pulmonary embolism (~04/2018) Right leg DVT Extensive right lower extremity DVT on ultrasound dated 08/26/2019. Surgical History Surgical History (Updated 02/28/24 @ 10:32 by Shaggy Johnson MD) History of 3 sections History of dilation and curettage History of endometrial ablation History of Adrienne-en-Y gastric bypass (~1999) History of tubal ligation Presence of IVC filter (~11/2018) Performed at [facility]. Family History Family History Mother Hypertension Dementia Father Hypertension Social History Social History Social History: The patient is and lives with her daughter. I believe her grandson lives next door. 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 Lifelong nonsmoker. She drinks perhaps 2 alcoholic beverages a week. No illicit substance use. She designates her son, Jose Willis, as her surrogate decision maker and she wishes to be a full code. Smoking status: Never smoker Alcohol intake: current Drinks per week: 3 Substance use: never Do You Feel Safe in your Home?: Yes Lack of Transportation: No Lack of Food: Never True Current Housing: I Have Housing Concerned About Future Housing: No Difficulty Paying Gas/Electric Bills: No Difficulty Paying for Meds: No Currently Unemployed: No Education: Bachelor's Degree Difficulty w/ Childcare or Family Care: No Living arrangements: with family Occupation/Education: retired Gender identity (if verbalized by the patient): Female Spiritual care concerns: No Agree to blood products: Yes Meds Home Medications and Allergies Home Medications Medication Instructions Recorded Confirmed Type famotidine 20 mg tablet 20 mg PO BID 08/12/19 02/28/24 History potassium chloride 10 mEq 10 meq PO DAILY 08/12/19 02/28/24 History tablet,extended release zolpidem 5 mg tablet 10 mg PO HS 08/12/19 02/28/24 History cyanocobalamin (vitamin B-12) 100 mcg (0.1 mL) IM MONTHLY #5 ea 08/21/19 02/28/24 Rx 1,000 mcg/mL injection kit folic acid 1 mg tablet 1 mg PO DAILY #30 tabs 08/21/19 02/28/24 Rx metoprolol succinate 25 mg 25 mg PO DAILY 10/13/19 02/28/24 History tablet,extended release 24 hr ferrous sulfate 325 mg (65 mg 325 mg PO DAILY 12/02/19 02/28/24 History iron) tablet omeprazole 40 mg capsule,delayed 40 mg PO DAILY 12/02/19 02/28/24 History release clotrimazole-betamethasone 1 1 applic topical BID #45 grams 04/08/20 02/28/24 Rx %-0.05 % topical cream lisinopril 10 mg tablet 10 mg PO DAILY 10/02/23 02/28/24 History oxycodone 10 mg tablet 10 mg PO Q6H PRN Pain 10/02/23 02/28/24 History fluoxetine 10 mg capsule 10 mg PO DAILY 02/28/24 02/28/24 History hydroxyzine pamoate 25 mg capsule 25 mg PO TID PRN Anxiety 02/28/24 02/28/24 History Allergies Allergy/AdvReac Type Severity Reaction Status Date / Time No Known Allergies Allergy Verified 02/27/24 13:15 Vital Signs Vital Signs - 24 hr 02/28/24 14:40 02/28/24 14:30 02/28/24 12:00 Temperature 97.7 F Pulse Rate 102 H 80 Respiratory Rate 18 Blood Pressure 102/77 Pulse Oximetry 97 97 Oxygen Delivery Room Air 02/28/24 14:00 02/28/24 16:00 02/28/24 16:00 Temperature 98.4 F Pulse Rate 91 86 80 Respiratory Rate 16 Blood Pressure 100/58 L Pulse Oximetry 98 Oxygen Delivery 02/28/24 18:00 02/28/24 16:00 02/28/24 20:00 Temperature 98.3 F Pulse Rate 78 85 Respiratory Rate 16 Blood Pressure 104/65 Pulse Oximetry 98 Oxygen Delivery Room Air 02/28/24 20:00 02/28/24 22:00 02/28/24 20:00 Temperature Pulse Rate 86 84 Respiratory Rate Blood Pressure Pulse Oximetry Oxygen Delivery Room Air 02/29/24 00:00 02/29/24 00:00 02/29/24 00:00 Temperature 98.1 F Pulse Rate 84 87 Respiratory Rate 18 Blood Pressure 99/61 L Pulse Oximetry 100 Oxygen Delivery Room Air 02/29/24 02:00 02/29/24 04:00 02/29/24 04:00 Temperature Pulse Rate 86 78 Respiratory Rate Blood Pressure Pulse Oximetry Oxygen Delivery Room Air 02/29/24 04:00 02/29/24 06:00 02/29/24 07:49 Temperature 98.0 F 98.1 F Pulse Rate 87 73 80 Respiratory Rate 18 16 Blood Pressure 99/69 L 105/67 Pulse Oximetry 100 97 Oxygen Delivery 02/29/24 11:29 Temperature 98.8 F Pulse Rate 75 Respiratory Rate 14 Blood Pressure 97/62 L Pulse Oximetry 100 Oxygen Delivery Exam Const: General: alert; No acute distress Orientation/consciousness: patient oriented x3 Limitations: no limitations HENMT: Head: normocephalic and atraumatic Ears: hearing grossly normal bilaterally Face/Nose/Sinus: Normal external nose present and Normal nares present Mouth: Yes Normal oral and palatal mucosa present and Yes moist mucous membranes Eyes: General: appearance normal, both eyes and all related structures Conjunctivae: conjunctivae normal Sclera: sclerae normal Pupils: Equal, round and reactive pupils present EOM: EOMs intact bilaterally Neck: Neck: normal visual inspection, full ROM, no lymphadenopathy, supple and no JVD Lymphatic: no lymphadenopathy noted Chest: Chest palpation & inspection: normal inspection of the chest Resp: Effort & Inspection: normal respiratory effort and able to speak in complete sentences Auscultation: clear to auscultation bilaterally Percussion: percussion normal Cardio: Jugular venous distension: no JVD Rate: regular rate Rhythm: regular rhythm Heart sounds: S1 normal heart sound present and S2 normal heart sound present Peripheral pulses: Peripheral pulses 2+ throughout GI: Inspection: normal to inspection Auscultation: normal bowel sounds Rectal Exam: No External hemorrhoid(s) present, Internal hemorrhoid(s) present ( Minimal prolapsing), No Anal fissure(s) present and No tenderness : General: Yes no CVA tenderness Back/Spine/Pelvis: Back: no CVA tenderness Skin: General skin exam: normal color and dry skin Neuro: General: patient oriented x3, gait normal, moves all extremities, no focal motor deficits and CN's II-XI intact bilaterally Cranial nerves: Yes Equal, round and reactive pupils present Speech: normal speech Extrem: General: normal to inspection and capillary refill normal Results Labs 02/29/24 04:34 02/29/24 04:34 Labs: Abnormal lab results 02/28/24 02/28/24 02/29/24 Range/Units 11:21 23:03 04:34 RBC 3.18 L (4.2-5.4) M/mm3 Hgb 8.9 L 8.9 L (12.0-15.0) g/dL Hct 27.8 L 28.6 L (37.0-47.0) % MCHC 31.1 L (32-36) g/dl RDW 18.6 H (11.5-14.5) % Plt Count 107 L (150-375) k/mm3 MPV 10.8 H (7.4-10.4) fl Sodium 135 L (137-145) mmol/L Creatinine 1.10 H (0.7-1.0) mg/dL TIBC 187 L (261-462) ug/dL Albumin 3.0 L (3.5-5.1) g/dL TSH (Reflex) 4.770 H (0.465-4.68) uIU/mL Total T3 0.88 L (0.97-1.69) NG/ML Diabetes panel 02/29/24 Range/Units 04:34 Sodium 135 L (137-145) mmol/L Potassium 4.3 (3.4-5.0) mmol/L Chloride 106 (98-107) mmol/L Carbon Dioxide 25 (22-30) mmol/L BUN 9 (7-17) mg/dL Creatinine 1.10 H (0.7-1.0) mg/dL Glucose 95 (65-110) mg/dL Calcium 8.5 (8.4-10.2) mg/dL Albumin 3.0 L (3.5-5.1) g/dL Calcium panel 02/29/24 Range/Units 04:34 Calcium 8.5 (8.4-10.2) mg/dL Phosphorus 3.3 (2.5-4.5) mg/dL Albumin 3.0 L (3.5-5.1) g/dL Pituitary panel 02/28/24 02/29/24 Range/Units 11:21 04:34 Sodium 135 L (137-145) mmol/L Potassium 4.3 (3.4-5.0) mmol/L Chloride 106 (98-107) mmol/L Carbon Dioxide 25 (22-30) mmol/L BUN 9 (7-17) mg/dL Creatinine 1.10 H (0.7-1.0) mg/dL Glucose 95 (65-110) mg/dL Calcium 8.5 (8.4-10.2) mg/dL Total T3 0.88 L (0.97-1.69) NG/ML Adrenal panel 02/29/24 Range/Units 04:34 Sodium 135 L (137-145) mmol/L Potassium 4.3 (3.4-5.0) mmol/L Chloride 106 (98-107) mmol/L Carbon Dioxide 25 (22-30) mmol/L BUN 9 (7-17) mg/dL Creatinine 1.10 H (0.7-1.0) mg/dL Glucose 95 (65-110) mg/dL Calcium 8.5 (8.4-10.2) mg/dL Albumin 3.0 L (3.5-5.1) g/dL All other labs normal. Imaging Additional studies: ITS Impressions Abdomen/Pelvis CT 02/27/24 22:28 IMPRESSION: 1. Deep vein thrombosis in the pelvis and thighs with filter in the inferior vena cava. Lexiscan Stress Test 02/28/24 14:54 IMPRESSION: 1. Normal myocardial perfusion at rest and during stress. 2. Left ventricular ejection fraction measuring >70%. Venous Doppler Study 02/28/24 19:43 IMPRESSION: 1. Deep vein thrombosis involving right common femoral vein, femoral vein, deep femoral vein, and posterior tibial veins. 2. Superficial vein thrombosis involving right greater saphenous vein.
[2024-02-29] MEDS: MULTIVIT/MIN/PREN/FOL AC/IRON TABLET 1 TAB PO (12:01)
[2024-02-29] MEDS: PSYLLIUM POWDER PACKET 1 PACKET PO ×2 (12:01→21:54)
[2024-02-29] MEDS: hydrOXYzine pamoate 25 MG CAPSULE PO ×2 (12:06→21:54)
--- NOTE | 2024-02-29 14:39 | PC.NURSE ---
Patient refused sitz bath at this time.
--- NOTE | 2024-02-29 16:17 | PM.IMPN ---
Progress Note: A&P Assessment and Plan (1) Bright red rectal bleeding: Code(s): K62.5 - Hemorrhage of anus and rectum Status: Acute Assessment and Plan: Patient again with GI blood loss. Recent endoscopy noted and suspect the rectal bleeding is related to hemorrhoids. GI was consulted who felt GI bleed related to hemorrhoids. GenSurgery consulted with plans for conservative management with Sitz bath, Anusol MO, metamucil po Monitor HH for stability. Transfuse as needed (2) Elevated troponin: Code(s): R79.89 - Other specified abnormal findings of blood chemistry Status: Acute Assessment and Plan: Troponin elevated but flat on admission. Trop 0.057 -> 0.061. EKG showing NSR with ST-T wave changes anterior leads. Repeat EKG showing more evident T wave inversion. She does have a loud murmur probably a flow murmur from anemia. Echo showing EF 65-70%, mild concentric LV wall thickness, Grade I diastolic dysfxn and no significant valve disease Lexiscan stress showing normal myocardial perfusion at rest and during stress. Elevated Trop could be from HoTN (87/61 in ED) Cardiology consulted and apprecaited their input (3) Acute on chronic anemia: Code(s): D64.9 - Anemia, unspecified Status: Acute Assessment and Plan: Hgb 10.3 on admission which is better than from last admission. Normocytic anemia Iron deficiency in November. Now on iron orally. No schistocytes noted. Iron and saturation normal but TIBC low at 187. Ferritin 147. HIV negative. LDH 270. B12 okay but Folate low end of normal. Replace Folate. Follow HH (4) History of deep venous thrombosis: Code(s): Z86.718 - Personal history of other venous thrombosis and embolism Status: Acute Assessment and Plan: Patient has a hx of DVT and now off Xarelto since June. She does have IVC filter in place She has chronic lymphedema probably related to chronic occlusion. CT with contrast showing extensive pelvic and abd DVT. RLE also showing extensive DVT Not great options for anticoagulation since she has chronic anemia and acute blood loss Plan for nonsurgical treatment for her hemorrhoids but may need intervention if she re-bleeds Hematology consulted and appreciate their input (5) CARLA (acute kidney injury): Code(s): N17.9 - Acute kidney failure, unspecified Status: Acute Assessment and Plan: Patient with Cr 1.2 with baseline 0.8. Probably related to poor oral intake, HoTN, anemia and MILLIE inhibitor. CT scan does show cortical thinning of the kidneys. She did receive contrast with CT scan. Cr 1.1 today. UOP not accurate Monitor renal function and electrolytes. (6) History of Adrienne-en-Y gastric bypass: Onset Date: ~1999 Code(s): Z98.84 - Bariatric surgery status Status: Acute Assessment and Plan: Performed many years ago. She has lost some weight since September. Weight was 146kg in September but now weight down to 122kg. CT scan showing no acute findings. Possible liver cirrhosis per GI note. Liver fibrosis panel ordered. CT showing normal appearing liver. Albumin was normal on admission and no varices or ascites. Consider Vit deficiency related to gastric bypass. Consider celiac Monitor oral intake. Check Vit D level and for celiac. Check hepatitis panel since cirrhosis being considered Plan DVT Prophylaxis - SCDs Code status - full Subjective Date/time seen: 02/29/24 16:17 Interval history: 53yo female with hx of gastric bypass, anemia, GI bleed with hemorrhoids and PUD, PE/DVT and HTN here for rectal bleeding. Feeling better. Still having lower abd pain and right thigh pain described as needle like pain. Walking with therapy. Exam Narrative: AF 97.5 99/79 79 16 100% ra Gen - NARD Chest - CTA bilaterally, nml TT CV - RRR. S1-S2. Tele showing rare PVC Abd - Soft. Nontender. Obese. Ext - bilateral R>>L lymph edema. Psych - normal mood and affect. Skin - warm and dry. Objective Data Vital Signs Vital Signs: Vital Signs - 24 hr 02/28/24 18:00 02/28/24 20:00 02/28/24 20:00 Temperature 98.3 F Pulse Rate 78 85 86 Respiratory Rate 16 Blood Pressure 104/65 Pulse Oximetry 98 Oxygen Delivery 02/28/24 22:00 02/28/24 20:00 02/29/24 00:00 Temperature Pulse Rate 84 Respiratory Rate Blood Pressure Pulse Oximetry Oxygen Delivery Room Air Room Air 02/29/24 00:00 02/29/24 00:00 02/29/24 02:00 Temperature 98.1 F Pulse Rate 84 87 86 Respiratory Rate 18 Blood Pressure 99/61 L Pulse Oximetry 100 Oxygen Delivery 11/23/24 04:00 02/29/24 04:00 02/29/24 04:00 Temperature 98.0 F Pulse Rate 78 87 Respiratory Rate 18 Blood Pressure 99/69 L Pulse Oximetry 100 Oxygen Delivery Room Air 02/29/24 06:00 02/29/24 07:49 02/29/24 11:29 Temperature 98.1 F 98.8 F Pulse Rate 73 80 75 Respiratory Rate 16 14 Blood Pressure 105/67 97/62 L Pulse Oximetry 97 100 Oxygen Delivery 02/29/24 08:00 02/29/24 10:00 02/29/24 12:00 Temperature Pulse Rate 82 81 108 H Respiratory Rate Blood Pressure Pulse Oximetry Oxygen Delivery 02/29/24 14:34 02/29/24 14:00 02/29/24 15:16 Temperature 97.5 F L Pulse Rate 83 84 Respiratory Rate 18 Blood Pressure 105/86 Pulse Oximetry 100 Oxygen Delivery Autopap Intake/Output Intake/Output: Intake & Output 02/26/24 02/27/24 02/28/24 02/29/24 23:59 23:59 23:59 23:59 Intake Total 1000 3400 1520 Output Total 100 Balance 1000 3300 1520 Meds/Results Medications: Active Medications Generic Name Dose Route Start Last Admin Trade Name Tristanq PRN Reason Stop Dose Admin Acetaminophen 650 mg 02/28/24 01:09 02/29/24 12:06 Acetaminophen 325 Mg Tablet PO 650 mg Q4H PRN Administration Mild Pain (1-3) or Fever Aspirin 81 mg 02/28/24 08:00 02/28/24 10:48 Aspirin 81 Mg Chewable Tablet PO Not Given DAILY@0800 [facility] Famotidine 20 mg 02/28/24 11:05 02/29/24 08:38 Famotidine 20 Mg Tablet PO 20 mg Q12HR KENTRELL Administration Ferrous Sulfate 325 mg 02/28/24 11:00 02/29/24 08:38 Ferrous Sulfate [address] PO 325 mg DAILY@0800 KENTRELL Administration Fluoxetine HCl 10 mg 02/28/24 11:00 02/29/24 08:39 Fluoxetine Hcl 10 Mg Capsule PO 10 mg DAILY KENTRELL Administration Folic Acid 1 mg 02/28/24 11:05 02/29/24 08:39 Folic Acid 1 Mg Tablet PO 1 mg DAILY KENTRELL Administration Hydrocortisone Acetate 25 mg 02/28/24 11:00 02/29/24 08:39 Hydrocortisone Acetate 25 Mg Suppository RECTAL 25 mg Q12HR KENTRELL Administration Hydroxyzine Pamoate 25 mg 02/28/24 10:58 02/29/24 12:06 Hydroxyzine Pamoate 25 Mg Capsule PO 25 mg TID PRN Administration Anxiety Melatonin 5 mg 02/28/24 22:06 02/28/24 22:21 Melatonin 5 Mg Tablet PO 5 mg HS PRN Administration Sleep Pantoprazole Sodium 40 mg 02/28/24 11:00 02/29/24 08:39 Pantoprazole 40 Mg Tablet PO 40 mg Q12HR KENTRELL Administration Vit/Calcium/Iron/Folic Ac 1 tab 02/29/24 11:20 02/29/24 12:01 Multivit/Min/Pren/Fol Ac/Iron Tablet PO 1 tab DAILY KENTRELL Administration Psyllium Hydrophilic Mucilloid 1 packet 02/29/24 11:20 02/29/24 12:01 Psyllium Powder Packet PO 1 packet Q12HR KENTRELL Administration Radiology Results: ITS Impressions Abdomen/Pelvis CT 02/27/24 22:28 IMPRESSION: 1. Deep vein thrombosis in the pelvis and thighs with filter in the inferior vena cava. Lexiscan Stress Test 02/28/24 14:54 IMPRESSION: 1. Normal myocardial perfusion at rest and during stress. 2. Left ventricular ejection fraction measuring >70%. Venous Doppler Study 02/28/24 19:43 IMPRESSION: 1. Deep vein thrombosis involving right common femoral vein, femoral vein, deep femoral vein, and posterior tibial veins. 2. Superficial vein thrombosis involving right greater saphenous vein. Labs Labs: Laboratory Results - last 24 hr 02/28/24 02/28/24 02/29/24 18:29 23:03 04:34 WBC 8.9 RBC 3.18 L Hgb 8.9 L 8.9 L Hct 27.8 L 28.6 L MCV 89.9 MCH 28.0 MCHC 31.1 L RDW 18.6 H Plt Count 107 L MPV 10.8 H Sodium 135 L Potassium 4.3 Chloride 106 Carbon Dioxide 25 Anion Gap 4 BUN 9 Creatinine 1.10 H Estim Creat Clear Calc 72 Estimated GFR > 60 Glucose 95 Calcium 8.5 Phosphorus 3.3 Albumin 3.0 L ANDREA, IgG Interpret Neg ANDREA, Poly Interpret Neg ANDREA, Complement Interp Negative
[2024-02-29] MEDS: HYDROcodone/acetaminophen (*CRX) 5-325 MG TABLET 1 TAB PO ×2 (16:51→21:53)
[2024-02-29] MEDS: MELATONIN 5 MG TABLET PO (21:54)
[2024-03-01] VITALS (14 sets, daily range): BP systolic 89–114; BP diastolic 46–87; PULSE 64–93; RESP 16–18; TEMP 36.5–36.9; O2SAT 98–100
[2024-03-01] MEDS: HYDROcodone/acetaminophen (*CRX) 5-325 MG TABLET 1 TAB PO ×4 (03:25→22:49)
[2024-03-01 04:06] LABS: Total Protein Urine Random < 5 mg/dL; Ur Ttl Prot Creatinine Ratio 0.01 mg/mg (0-0.20)
[2024-03-01 05:39] LABS: Hemoglobin 8.8 g/dL (12.0-15.0); Immature Platelet Fraction Pct 2.7 % (0.9-11.2); Mean Corpuscular HGB Conc 31.4 g/dl (32-36); Mean Corpuscular Hemoglobin 28.1 pg (26-34); Mean Corpuscular Volume 89.5 fl (80-100); Mean Platelet Volume 9.9 fl (7.4-10.4); Platelet Count Result 108 k/mm3 (150-375); Red Blood Count 3.13 M/mm3 (4.2-5.4); Red Cell Distribution Width 18.9 % (11.5-14.5); White Blood Count 9.4 K/mm3 (4.5-10.0)
[2024-03-01 05:52] LABS: Alanine Aminotransferase 11 U/L (6-35); Alkaline Phosphatase 108 U/L (38-126); Anion Gap 5 mmol/L (4-12); Aspartate Amino Transferase 31 U/L (14-36); Bilirubin,Total 0.8 mg/dL (0.2-1.3); Blood Urea Nitrogen 9 mg/dL (7-17); Calcium 8.3 mg/dL (8.4-10.2); Carbon Dioxide 20 mmol/L (22-30); Chloride 105 mmol/L (98-107); Estimated CRCL calculation 78 ml/min; Estimated Glomerular Filt Rate > 60; Glucose 81 mg/dL (65-110); Potassium 4.4 mmol/L (3.4-5.0); Sodium 130 mmol/L (137-145)
[2024-03-01 05:53] LABS: INR 1.5; Prothrombin Time 18.5 Seconds (11.1-14.7)
[2024-03-01 05:54] LABS: Partial Thromboplastin Time 40.6 Seconds (22.3-36.8)
[2024-03-01 06:05] LABS: Vitamin D 25 Hydroxy < 12.8 ng/mL
[2024-03-01 06:20] LABS: Hepatitis B Surface Antigen Negative (Negative)
[2024-03-01 06:25] LABS: Hepatitis B Core IgM Result Negative (Negative)
[2024-03-01 06:38] LABS: Hepatitis B Surface Anti Res Negative; Hepatitis C Virus Antibody Negative (Negative)
[2024-03-01] MEDS: HYDROCORTISONE ACETATE 25 MG SUPPOSITORY RECTAL ×2 (09:06→21:19)
[2024-03-01] MEDS: FOLIC ACID 1 MG TABLET PO (09:06)
[2024-03-01] MEDS: PANTOPRAZOLE 40 MG TABLET PO ×2 (09:06→21:18)
[2024-03-01] MEDS: PSYLLIUM POWDER PACKET 1 PACKET PO ×2 (09:06→21:18)
[2024-03-01] MEDS: MULTIVIT/MIN/PREN/FOL AC/IRON TABLET 1 TAB PO (09:06)
[2024-03-01] MEDS: FERROUS SULFATE 325 MG TABLET DR PO (09:07)
[2024-03-01] MEDS: FAMOTIDINE 20 MG TABLET PO ×2 (09:07→21:18)
[2024-03-01] MEDS: CHOLECALCIFEROL 5,000 UNITS TABLET 5000 UNITS PO (09:07)
[2024-03-01] MEDS: FLUoxetine HCL 10 MG CAPSULE PO (09:07)
--- NOTE | 2024-03-01 10:23 | P.PNGI_ITS ---
Progress Note: A&P Assessment and Plan (1) Grade II internal hemorrhoids: Code(s): K64.1 - Second degree hemorrhoids Status: Acute Assessment and Plan: The patient had no further rectal bleeding. She is feeling well. Evaluated by surgery, will follow as an outpatient to consider local therapy of different modalities. Coordinations started to obtain [facility]Scan at [facility] to rule out cirrhosis. I will follow her up as an outpatient. Patient can be discharged home today. (2) Bright red rectal bleeding: Code(s): K62.5 - Hemorrhage of anus and rectum Status: Acute Subjective Date/time seen: 03/01/24 10:23 Objective Data Vital Signs Vital Signs: Vital Signs - 24 hr 02/29/24 11:29 02/29/24 12:00 02/29/24 14:34 Temperature 98.8 F Pulse Rate 75 108 H Respiratory Rate 14 Blood Pressure 97/62 L Pulse Oximetry 100 Oxygen Delivery Autopap 02/29/24 14:00 02/29/24 15:16 02/29/24 16:00 Temperature 97.5 F L Pulse Rate 83 84 79 Respiratory Rate 18 Blood Pressure 105/86 Pulse Oximetry 100 Oxygen Delivery 02/29/24 18:00 02/29/24 20:00 02/29/24 21:26 Temperature 97.7 F Pulse Rate 74 77 Respiratory Rate 18 Blood Pressure 106/60 Pulse Oximetry 100 Oxygen Delivery Room Air 02/29/24 20:00 02/29/24 22:00 03/01/24 00:00 Temperature Pulse Rate 71 68 Respiratory Rate Blood Pressure Pulse Oximetry Oxygen Delivery Room Air 03/01/24 00:00 03/01/24 00:00 03/01/24 02:00 Temperature 98.1 F Pulse Rate 72 77 68 Respiratory Rate 18 Blood Pressure 89/46 L Pulse Oximetry 100 Oxygen Delivery 03/01/24 03:25 03/01/24 04:00 03/01/24 04:00 Temperature 98.2 F Pulse Rate 78 75 Respiratory Rate 18 Blood Pressure 94/58 L Pulse Oximetry 100 Oxygen Delivery Room Air 03/01/24 06:00 03/01/24 07:54 Temperature 98.0 F Pulse Rate 81 69 Respiratory Rate 16 Blood Pressure 98/59 L Pulse Oximetry 98 Oxygen Delivery Intake/Output Intake/Output: Intake & Output 02/27/24 02/28/24 02/29/2424/24 23:59 23:59 23:59 23:59 Intake Total 1000 3400 2350 1620 Output Total 100 300 Balance 1000 3300 2350 1320 Meds/Results Medications: Active Medications Generic Name Dose Route Start Last Admin Trade Name Freq PRN Reason Stop Dose Admin Acetaminophen 650 mg 02/29/24 16:18 Acetaminophen 325 Mg Tablet PO Q4H PRN Mild Pain (1-5) Or Fever Hydrocodone Bitart/Acetaminophen 1 tab 02/29/24 16:17 03/01/24 10:13 Hydrocodone/Acetaminophen (*Crx) 5-325 Mg Tablet PO 1 tab Q6H PRN Administration Pain Rated 6 or Greater Aspirin 81 mg 02/28/24 08:00 02/28/24 10:48 Aspirin 81 Mg Chewable Tablet PO Not Given DAILY@0800 [facility] Famotidine 20 mg 02/28/24 11:05 03/01/24 09:07 Famotidine 20 Mg Tablet PO 20 mg Q12HR KENTRELL Administration Ferrous Sulfate 325 mg 02/28/24 11:00 03/01/24 09:07 Ferrous Sulfate [address] PO 325 mg DAILY@0800 [facility] Administration Fluoxetine HCl 10 mg 02/28/24 11:00 03/01/24 09:07 Fluoxetine Hcl 10 Mg Capsule PO 10 mg DAILY KENTRELL Administration Folic Acid 1 mg 02/28/24 11:05 03/01/24 09:06 Folic Acid 1 Mg Tablet PO 1 mg DAILY KENTRELL Administration Hydrocortisone Acetate 25 mg 02/28/24 11:00 03/01/24 09:06 Hydrocortisone Acetate 25 Mg Suppository RECTAL 25 mg Q12HR KENTRELL Administration Hydroxyzine Pamoate 25 mg 02/28/24 10:58 02/29/24 21:54 Hydroxyzine Pamoate 25 Mg Capsule PO 25 mg TID PRN Administration Anxiety Melatonin 5 mg 02/28/24 22:06 02/29/24 21:54 Melatonin 5 Mg Tablet PO 5 mg HS PRN Administration Sleep Pantoprazole Sodium 40 mg 02/28/24 11:00 03/01/24 09:06 Pantoprazole 40 Mg Tablet PO 40 mg Q12HR [facility] Administration Vit/Calcium/Iron/Folic Ac 1 tab 02/29/24 11:20 03/01/24 09:06 Multivit/Min/Pren/Fol Ac/Iron Tablet PO 1 tab DAILY KENTRELL Administration Psyllium Hydrophilic Mucilloid 1 packet 02/29/24 11:20 03/01/24 09:06 Psyllium Powder Packet PO 1 packet Q12HR KENTRELL Administration Vitamin D 5,000 units 03/01/24 09:00 03/01/24 09:07 Cholecalciferol 5,000 Units Tablet PO 03/03/24 09:01 5,000 units DAILY KENTRELL Administration Vitamin D 1,000 units 03/04/24 09:00 Cholecalciferol 1,000 Units Tablet PO DAILY KENTRELL Radiology Results: ITS Impressions Abdomen/Pelvis CT 02/27/24 22:28 IMPRESSION: 1. Deep vein thrombosis in the pelvis and thighs with filter in the inferior vena cava. Lexiscan Stress Test 02/28/24 14:54 IMPRESSION: 1. Normal myocardial perfusion at rest and during stress. 2. Left ventricular ejection fraction measuring >70%. Venous Doppler Study 02/28/24 19:43 IMPRESSION: 1. Deep vein thrombosis involving right common femoral vein, femoral vein, deep femoral vein, and posterior tibial veins. 2. Superficial vein thrombosis involving right greater saphenous vein. Labs Labs: Laboratory Results - last 24 hr 02/28/24 03/01/24 03/01/24 18:29 03:00 04:48 WBC 9.4 RBC 3.13 L Hgb 8.8 L Hct 28.0 L MCV 89.5 MCH 28.1 MCHC 31.4 L RDW 18.9 H Plt Count 108 L MPV 9.9 % Immature Plt Fraction 2.7 Haptoglobin 45 PT 18.5 H INR 1.5 APTT 40.6 H Sodium 130 L Potassium 4.4 Chloride 105 Carbon Dioxide 20 L Anion Gap 5 BUN 9 Creatinine 1.00 Estim Creat Clear Calc 78 Estimated GFR > 60 Glucose 81 Calcium 8.3 L Total Bilirubin 0.8 AST 31 ALT 11 Alkaline Phosphatase 108 Total Protein 6.0 L Albumin 3.0 L Vitamin D 25-Hydroxy < 12.8 U Random Total Protein < 5 Urine Creatinine 399.0 Protein/Creat Ratio 2 0.01 Hep Bs Antigen Negative Hep Bs Antibody Negative Hep B Core IgM Ab Negative Hepatitis C Ab Screen Negative
--- NOTE | 2024-03-01 14:04 | PM.DS ---
DS: Admitting Diagnosis Discharge Date 03/01/24 Admitting Diagnosis Rectal bleeding DS: Discharge Diagnosis Discharge Diagnosis (1) Bright red rectal bleeding: Code(s): K62.5 - Hemorrhage of anus and rectum Status: Acute (2) Elevated troponin: Code(s): R79.89 - Other specified abnormal findings of blood chemistry Status: Acute (3) Acute on chronic anemia: Code(s): D64.9 - Anemia, unspecified Status: Acute (4) History of deep venous thrombosis: Code(s): Z86.718 - Personal history of other venous thrombosis and embolism Status: Acute (5) CARLA (acute kidney injury): Code(s): N17.9 - Acute kidney failure, unspecified Status: Acute (6) History of Adrienne-en-Y gastric bypass: Onset Date: ~1999 Code(s): Z98.84 - Bariatric surgery status Status: Acute DS: Summary Hospital Course Reason for hospitalization: 53yo female with hx of gastric bypass, anemia, GI bleed with hemorrhoids and PUD, PE/DVT and HTN here for rectal bleeding. Please see H&P for details. Hospital Course: Patient presents with rectal bleeding. Recent EGD and colonoscopy last month normal except for internal hemorrhoids. GI was consulted who felt GI bleed related to hemorrhoids. GenSurgery consulted with plans for conservative management with Anusol MT, Metamucil and Sitz baths. Hgb 10.3 on admission which is better than from last admission. She had a normocytic anemia. She was iron deficient in November. Now on iron orally. No schistocytes noted. Here, iron level and saturation normal but TIBC low at 187. Ferritin 147. HIV negative. LDH 270. B12 okay but Folate low end of normal so folic acid started. Hgb dropped to 8 range and remained stable. Patient with Cr 1.2 with baseline 0.8. CARLA probably related to poor oral intake, HoTN, anemia and MILLIE inhibitor. CT scan does show cortical thinning of the kidneys. She did receive contrast with CT scan. Cr 1.0 today. Troponin elevated but flat on admission. Trop 0.057 -> 0.061. EKG showing NSR with ST-T wave changes anterior leads. Repeat EKG showing more evident T wave inversion. She does have a loud murmur probably a flow murmur from anemia. Echo showing EF 65-70%, mild concentric LV wall thickness, Grade I diastolic dysfxn and no significant valve disease. Lexiscan stress showing normal myocardial perfusion at rest and during stress. Elevated Trop could be from HoTN (87/61 in ED) and/or anemia. Cardiology consulted and appreciated their input. Patient has a hx of DVT and now off Xarelto since June. She does have IVC filter in place. She has chronic lymphedema probably related to chronic occlusion. CT Abd/Pelvis with contrast showing extensive pelvic and abdominal DVTs. Rt LE doppler also showing extensive DVTs. Please see reports for details. Not great options for anticoagulation since she has chronic anemia and acute blood loss. Hematology consulted and appreciated their input. Possible liver cirrhosis per GI note. Liver fibrosis panel ordered. CT showing normal appearing liver. Albumin was normal on admission and no varices or ascites. Consider Vitamin deficiency related to gastric bypass (Vit K deficiency could cause elevated INR for example). Consider celiac disease. She was Vit D deficient. Hepatitis panel negative. Plan for nonsurgical treatment for her hemorrhoids for now given the concern for cirrhosis. GI has referred patient for a FibroScan at [facility] to rule out cirrhosis. If cirrhosis ruled out, then patient can proceed with surgical treatment for her hemorrhoids. Once hemorrhoids are treated, then possibly resume anticoagulation. Rectal bleeding has stopped. She feels well. Walking in the room. She has had a BM without further bleeding. She overall did well and was able to be discharged home on 03/01/24. Status at Discharge Cognitive/behavioral status at discharge: stable Time Spent with Patient Time attestation: Total time spent providing and/or coordinating discharge services: 37 minutes Time spent: Greater than 30 minutes Exam Narrative: AF 98.1 106/87 67 16 100% ra Gen - NARD Chest - CTA bilaterally CV - RRR. S1-S2. Tele showing no signifincat dysrhythmias Abd - Soft. Nontender. Obese. Ext - bilateral R>>L lymph edema. Psych - normal mood and affect. Skin - warm and dry. DS: Data Data Completed and Pending Labs on day of discharge: Labs from last 24 hours 03/01/24 03/01/24 03/01/24 04:48 04:37 03:00 WBC 9.4 RBC 3.13 L Hgb 8.8 L Hct 28.0 L MCV 89.5 MCH 28.1 MCHC 31.4 L RDW 18.9 H Plt Count 108 L MPV 9.9 % Immature Plt Fraction 2.7 Haptoglobin PT 18.5 H INR 1.5 APTT 40.6 H Sodium 130 L Potassium 4.4 Chloride 105 Carbon Dioxide 20 L Anion Gap 5 BUN 9 Creatinine 1.00 Estim Creat Clear Calc 78 Estimated GFR > 60 Glucose 81 Calcium 8.3 L Total Bilirubin 0.8 AST 31 ALT 11 Alkaline Phosphatase 108 Total Protein 6.0 L Albumin 3.0 L Vitamin D 25-Hydroxy < 12.8 Vit D 1,25-Dihyd Total Pending 1,25 Dihydroxy Vit D2 Pending 1,25 Dihydroxy Vit D3 Pending U Random Total Protein < 5 Urine Creatinine 399.0 Protein/Creat Ratio 2 0.01 IgA Pending Tiss Transglut IgA Comm Pending Celiac Disease Interp Pending Hep Bs Antigen Negative Hep Bs Antibody Negative Hep B Core Total Ab Pending Hep B Core IgM Ab Negative Hepatitis C Ab Screen Negative 02/28/24 18:29 WBC RBC Hgb Hct MCV MCH MCHC RDW Plt Count MPV % Immature Plt Fraction Haptoglobin 45 PT INR APTT Sodium Potassium Chloride Carbon Dioxide Anion Gap BUN Creatinine Estim Creat Clear Calc Estimated GFR Glucose Calcium Total Bilirubin AST ALT Alkaline Phosphatase Total Protein Albumin Vitamin D 25-Hydroxy Vit D 1,25-Dihyd Total 1,25 Dihydroxy Vit D2 1,25 Dihydroxy Vit D3 U Random Total Protein Urine Creatinine Protein/Creat Ratio 2 IgA Tiss Transglut IgA Comm Celiac Disease Interp Hep Bs Antigen Hep Bs Antibody Hep B Core Total Ab Hep B Core IgM Ab Hepatitis C Ab Screen Discharge Plan Discharge Attending physician on discharge: Shaggy Johnson Consulting providers: Hardik Mane; Pooja Villegas; Garrett Nichols; Marcos Guerrero Discharging Clinician: Shaggy Johnson Anticipated Discharge Date/Time: 03/01/24 14:25 Patient Disposition: Home, Self-Care Activity: no straining and as tolerated Diet: high fiber Discharge Instructions: FibroScan at [facility] as discussed. Check blood pressure 1 to 2 times a day. Record and bring into your doctor for review. Call your doctor if your blood pressure is greater than 180/110. MILLIE wraps to both legs on in the morning and off at night Contact your doctor or call 911 and come to the Emergency Room if you have persistent rectal bleeding, lightheadedness with standing or other worrisome symptoms. Avoid NSAIDs (ibuprofen, naproxen, Aleve). Tylenol is safe to take. Follow-up with your primary care provider in 1-2 weeks. Please call for appointment. Follow-up with General Surgery after you have had your FibroScan. Please call for an appointment. Follow-up with GI doctor after you have had your FibroScan. Please call for an appointment. Follow-up with [facility] in 2-4 weeks after the Fibroscan. Please call for an appointment. Thank you for using [facility] for your health care needs. Patient Instructions: Antibiotic Form, Gastrointestinal Bleeding (GEN), Deep Vein Thrombosis (GEN), Deep Vein Thrombosis Prevention (GEN) Stand Alone Forms: General Discharge Information Follow-up/Referrals: Hardik Mane MD [Physician] - Call for Appointment Marcos Guerrero MD [Physician] - Call for Appointment UNKNOWN,DOCTOR [Primary Care Provider] - Call for Appointment Garrett Nichols DO [Physician] - Call for Appointment Discharge Medications: No Action metoprolol succinate 25 mg Tablet Extended Release 24 Hr 25 mg PO DAILY omeprazole 40 mg capsule,delayed release(DR/EC) 40 mg PO DAILY ferrous sulfate 325 mg (65 mg iron) tablet 325 mg PO DAILY potassium chloride 10 mEq tablet extended release 10 meq PO DAILY famotidine 20 mg tablet 20 mg PO BID zolpidem 5 mg tablet 10 mg PO HS Patient Comments: folic acid 1 mg Tablet 1 mg PO DAILY Qty: 30 0RF cyanocobalamin (vitamin B-12) 1,000 mcg/mL kit 100 mcg IM MONTHLY Qty: 5 0RF Rx Instructions: Receives on of every month clotrimazole-betamethasone 1-0.05 % cream 1 applic topical BID Qty: 45 0RF Rx Instructions: apply to BLE lisinopril 10 mg tablet 10 mg PO DAILY oxycodone 10 mg tablet 10 mg PO Q6H PRN (Reason: Pain) fluoxetine 10 mg capsule 10 mg PO DAILY hydroxyzine pamoate 25 mg capsule 25 mg PO TID PRN (Reason: Anxiety) Date of admission: 02/28/24 02:42 Primary Care Provider: UNKNOWN,DOCTOR Admitting Provider: Regina Miller V. Attending physician on admission: Regina Miller V. Condition: Stable
--- NOTE | 2024-03-01 14:35 | P.PNGS_ITS ---
Progress Note: A&P Assessment and Plan (1) Grade II internal hemorrhoids: Code(s): K64.1 - Second degree hemorrhoids Status: Acute Assessment and Plan: * Patient continues to have rectal bleeding. Was hopeful to initially treat with suppositories and conservative measures, but she remains at risk for recurrent bleeding and more profound anemia. I have recommended that she stay another day in the hospital and we proceed with Rectal exam under anesthesia with transanal hemorrhoid dearterialization procedure. This will allow for control of her bleeding hemorrhoids without subjecting her to increased blee ding risks with formal hemorrhoidectomy. I discussed the procedure, risks, benefits, and alternatives with patient. Questions answered. Will make NPO after midnight. (2) Thrombocytopenia: Code(s): D69.6 - Thrombocytopenia, unspecified Status: Acute (3) Acute on chronic anemia: Code(s): D64.9 - Anemia, unspecified Status: Acute (4) History of deep venous thrombosis: Code(s): Z86.718 - Personal history of other venous thrombosis and embolism Status: Acute Subjective Subjective Date/Time Seen: 03/01/24 14:35 Interval history: Was doing well, but just had another BM and had rectal bleeding. She felt a little light headed, but otherwise stable. She said she had to strain just a little bit to have the BM. Exam GI: Other: No prolapsing internal hemorrhoids or external hemorrhoids. Objective Data Vital Signs Vital Signs: Vital Signs - 24 hr 02/29/24 15:16 02/29/24 16:00 02/29/24 18:00 Temperature 97.5 F L Pulse Rate 84 79 74 Respiratory Rate 18 Blood Pressure 105/86 Pulse Oximetry 100 Oxygen Delivery 02/29/24 20:00 02/29/24 21:26 02/29/24 20:00 Temperature 97.7 F Pulse Rate 77 71 Respiratory Rate 18 Blood Pressure 106/60 Pulse Oximetry 100 Oxygen Delivery Room Air 02/29/24 22:00 03/01/24 00:00 03/01/24 00:00 Temperature 98.1 F Pulse Rate 68 72 Respiratory Rate 18 Blood Pressure 89/46 L Pulse Oximetry 100 Oxygen Delivery Room Air 03/01/24 00:00 03/01/24 02:00 03/01/24 03:25 Temperature 98.2 F Pulse Rate 77 68 78 Respiratory Rate 18 Blood Pressure 94/58 L Pulse Oximetry 100 Oxygen Delivery 03/01/24 04:00 03/01/24 04:00 03/01/24 06:00 Temperature Pulse Rate 75 81 Respiratory Rate Blood Pressure Pulse Oximetry Oxygen Delivery Room Air 03/01/24 07:54 03/01/24 12:00 03/01/24 08:00 Temperature 98.0 F 98.1 F Pulse Rate 69 67 Respiratory Rate 16 16 Blood Pressure 98/59 L 106/87 Pulse Oximetry 98 100 Oxygen Delivery Room Air 03/01/24 12:00 03/01/24 08:00 03/01/24 10:00 Temperature Pulse Rate 72 65 Respiratory Rate Blood Pressure Pulse Oximetry Oxygen Delivery Room Air Intake/Output Intake/Output: Intake & Output 02/27/24 02/28/24 02/29/24 03/01/24 23:59 23:59 23:59 23:59 Intake Total 1000 3400 2350 1860 Output Total 100 300 Balance 1000 3300 2350 1560 Meds/Results Medications: Active Medications Generic Name Dose Route Start Last Admin Trade Name Freq PRN Reason Stop Dose Admin Acetaminophen 650 mg 02/29/24 16:18 Acetaminophen 325 Mg Tablet PO Q4H PRN Mild Pain (1-5) Or Fever Hydrocodone Bitart/Acetaminophen 1 tab 02/29/24 16:17 03/01/24 10:13 Hydrocodone/Acetaminophen (*Crx) 5-325 Mg Tablet PO 1 tab Q6H PRN Administration Pain Rated 6 or Greater Aspirin 81 mg 02/28/24 08:00 02/28/24 10:48 Aspirin 81 Mg Chewable Tablet PO Not Given DAILY@0800 [facility] Famotidine 20 mg 02/28/24 11:05 03/01/24 09:07 Famotidine 20 Mg Tablet PO 20 mg Q12HR [facility] Administration Ferrous Sulfate 325 mg 02/28/24 11:00 03/01/24 09:07 Ferrous Sulfate [address] PO 325 mg DAILY@0800 [facility] Administration Fluoxetine HCl 10 mg 02/28/24 11:00 03/01/24 09:07 Fluoxetine Hcl 10 Mg Capsule PO 10 mg DAILY [facility] Administration Folic Acid 1 mg 02/28/24 11:05 03/01/24 09:06 Folic Acid 1 Mg Tablet PO 1 mg DAILY [facility] Administration Hydrocortisone Acetate 25 mg 02/28/24 11:00 03/01/24 09:06 Hydrocortisone Acetate 25 Mg Suppository RECTAL 25 mg Q12HR [facility] Administration Hydroxyzine Pamoate 25 mg 02/28/24 10:58 02/29/24 21:54 Hydroxyzine Pamoate 25 Mg Capsule PO 25 mg TID PRN Administration Anxiety Melatonin 5 mg 02/28/24 22:06 02/29/24 21:54 Melatonin 5 Mg Tablet PO 5 mg HS PRN Administration Sleep Pantoprazole Sodium 40 mg 02/28/24 11:00 03/01/24 09:06 Pantoprazole 40 Mg Tablet PO 40 mg Q12HR [facility] Administration Vit/Calcium/Iron/Folic Ac 1 tab 02/29/24 11:20 03/01/24 09:06 Multivit/Min/Pren/Fol Ac/Iron Tablet PO 1 tab DAILY [facility] Administration Psyllium Hydrophilic Mucilloid 1 packet 02/29/24 11:20 03/01/24 09:06 Psyllium Powder Packet PO 1 packet Q12HR [facility] Administration Vitamin D 5,000 units 03/01/24 09:00 03/01/24 09:07 Cholecalciferol 5,000 Units Tablet PO 03/03/24 09:01 5,000 units DAILY [facility] Administration Vitamin D 1,000 units 03/04/24 09:00 Cholecalciferol 1,000 Units Tablet PO DAILY [facility] Radiology Results: ITS Impressions Abdomen/Pelvis CT 02/27/24 22:28 IMPRESSION: 1. Deep vein thrombosis in the pelvis and thighs with filter in the inferior vena cava. Lexiscan Stress Test 02/28/24 14:54 IMPRESSION: 1. Normal myocardial perfusion at rest and during stress. 2. Left ventricular ejection fraction measuring >70%. Venous Doppler Study 02/28/24 19:43 IMPRESSION: 1. Deep vein thrombosis involving right common femoral vein, femoral vein, deep femoral vein, and posterior tibial veins. 2. Superficial vein thrombosis involving right greater saphenous vein. Labs Labs: Laboratory Results - last 24 hr 02/28/24 03/01/24 03/01/24 18:29 03:00 04:48 WBC 9.4 RBC 3.13 L Hgb 8.8 L Hct 28.0 L MCV 89.5 MCH 28.1 MCHC 31.4 L RDW 18.9 H Plt Count 108 L MPV 9.9 % Immature Plt Fraction 2.7 Haptoglobin 45 PT 18.5 H INR 1.5 APTT 40.6 H Sodium 130 L Potassium 4.4 Chloride 105 Carbon Dioxide 20 L Anion Gap 5 BUN 9 Creatinine 1.00 Estim Creat Clear Calc 78 Estimated GFR > 60 Glucose 81 Calcium 8.3 L Total Bilirubin 0.8 AST 31 ALT 11 Alkaline Phosphatase 108 Total Protein 6.0 L Albumin 3.0 L Vitamin D 25-Hydroxy < 12.8 U Random Total Protein < 5 Urine Creatinine 399.0 Protein/Creat Ratio 2 0.01 Hep Bs Antigen Negative Hep Bs Antibody Negative Hep B Core IgM Ab Negative Hepatitis C Ab Screen Negative
--- NOTE | 2024-03-01 14:38 | PM.IMPN ---
Progress Note: A&P Assessment and Plan (1) Bright red rectal bleeding: Code(s): K62.5 - Hemorrhage of anus and rectum Status: Acute Assessment and Plan: Patient presents with rectal bleeding again. She was hospitalized in September and January for similar events. Recent EGD and colonoscopy in Jan was normal except for small internal hemorrhoids. GI was consulted who felt GI bleed related to hemorrhoids. GenSurgery consulted with plans initially for conservative management with Sitz bath, Anusol SC, Metamucil. Hgb 10.3 on admission which is better than from last admission. Hgb dropped to 8 range and stable. Since she re-bled, plan now for her to go to OR for transanal hemorrhoid dearterialization procedure tomorrow. Patient is agreeable with staying and having this procedure performed. Monitor HH for stability. Transfuse as needed (2) Elevated troponin: Code(s): R79.89 - Other specified abnormal findings of blood chemistry Status: Acute Assessment and Plan: Troponin elevated but flat on admission. Trop 0.057 -> 0.061. EKG showing NSR with ST-T wave changes anterior leads. Repeat EKG showing more evident T wave inversion. She does have a loud murmur probably a flow murmur from anemia. Echo showing EF 65-70%, mild concentric LV wall thickness, Grade I diastolic dysfxn and no significant valve disease Lexiscan stress showing normal myocardial perfusion at rest and during stress. Elevated Trop could be from HoTN (87/61 in ED) and anemia. Cardiology consulted and apprecaited their input (3) Acute on chronic anemia: Code(s): D64.9 - Anemia, unspecified Status: Acute Assessment and Plan: Hgb 10.3 on admission which is better than from last admission. Normocytic anemia Iron deficiency in November. Now on iron orally. No schistocytes noted. Iron and iron saturation normal but TIBC low at 187. Ferritin 147. HIV negative. LDH 270. B12 okay but Folate low end of normal. She is currently on folic acid. Suspect acute on chronic anemia with some from acute blood loss from hemorrhoids. Follow HH (4) History of deep venous thrombosis: Code(s): Z86.718 - Personal history of other venous thrombosis and embolism Status: Acute Assessment and Plan: Patient has a hx of DVT and now off Xarelto since September. She does have IVC filter in place She has chronic lymphedema probably related to chronic occlusion. CT Abd/Pelvis with contrast showing extensive pelvic and abd DVT. RLE also showing extensive DVT Hematology consulted and appreciate their input Not great options for anticoagulation since she has chronic anemia and acute blood loss Plan for surgical treatment for her hemorrhoids now. Start anti-coagulation when okay with surgery after the procedure. (5) CARLA (acute kidney injury): Code(s): N17.9 - Acute kidney failure, unspecified Status: Acute Assessment and Plan: Patient with Cr 1.2 with baseline 0.8. Probably related to poor oral intake, HoTN, anemia, diuretics and MILLIE inhibitor. CT scan does show cortical thinning of the kidneys. She did receive contrast with CT scan. Cr 1.0 today. UOP not accurate Monitor renal function and electrolytes. (6) History of Adrienne-en-Y gastric bypass: Onset Date: ~1999 Code(s): Z98.84 - Bariatric surgery status Status: Acute Assessment and Plan: Performed many years ago. She has lost some weight since September. Weight was 146kg in September but now weight down to 122kg. CT scan showing no acute findings. Possible liver cirrhosis per GI note. Liver fibrosis panel ordered. CT showing normal appearing liver. Albumin was normal on admission and no varices or ascites. Chronic hepatitis panel negative. Consider vitamin deficiency related to gastric bypass (low VitK causing elevated INR for example). Consider celiac disease as well. Monitor oral intake. Vit D level low so will replace (she has known VitD deficiency in the past). Plan DVT Prophylaxis - SCDs Code status - full Subjective Date/time seen: 03/01/24 14:38 Interval history: 53yo female with hx of gastric bypass, anemia, GI bleed with hemorrhoids and PUD, PE/DVT and HTN here for rectal bleeding. Patient feeling well. had a BM without blood. No Cp or SOB. Plan was to discharge but she had recurrent rectal bleeding so discharge held. Exam Narrative: AF 98.1 106/87 67 16 100% ra Gen - NARD Chest - CTA bilaterally CV - RRR. S1-S2. Tele showing no signifincat dysrhythmias Abd - Soft. Nontender. Obese. Ext - bilateral R>>L lymph edema. Psych - normal mood and affect. Skin - warm and dry. Objective Data Vital Signs Vital Signs: Vital Signs - 24 hr 02/29/24 15:16 02/29/24 16:00 02/29/24 18:00 Temperature 97.5 F L Pulse Rate 84 79 74 Respiratory Rate 18 Blood Pressure 105/86 Pulse Oximetry 100 Oxygen Delivery 02/29/24 20:00 02/29/24 21:26 02/29/24 20:00 Temperature 97.7 F Pulse Rate 77 71 Respiratory Rate 18 Blood Pressure 106/60 Pulse Oximetry 100 Oxygen Delivery Room Air 02/29/24 22:00 03/01/24 00:00 03/01/24 00:00 Temperature 98.1 F Pulse Rate 68 72 Respiratory Rate 18 Blood Pressure 89/46 L Pulse Oximetry 100 Oxygen Delivery Room Air 03/01/24 00:00 03/01/24 02:00 03/01/24 03:25 Temperature 98.2 F Pulse Rate 77 68 78 Respiratory Rate 18 Blood Pressure 94/58 L Pulse Oximetry 100 Oxygen Delivery 03/01/24 04:00 03/01/24 04:00 03/01/24 06:00 Temperature Pulse Rate 75 81 Respiratory Rate Blood Pressure Pulse Oximetry Oxygen Delivery Room Air 03/01/24 07:54 03/01/24 12:00 03/01/24 08:00 Temperature 98.0 F 98.1 F Pulse Rate 69 67 Respiratory Rate 16 16 Blood Pressure 98/59 L 106/87 Pulse Oximetry 98 100 Oxygen Delivery Room Air 03/01/24 12:00 03/01/24 08:00 03/01/24 10:00 Temperature Pulse Rate 72 65 Respiratory Rate Blood Pressure Pulse Oximetry Oxygen Delivery Room Air Intake/Output Intake/Output: Intake & Output 02/27/24 02/28/24 02/29/24 03/01/24 23:59 23:59 23:59 23:59 Intake Total 1000 3400 2350 1860 Output Total 100 300 Balance 1000 3300 2350 1560 Meds/Results Medications: Active Medications Generic Name Dose Route Start Last Admin Trade Name Freq PRN Reason Stop Dose Admin Acetaminophen 650 mg 02/29/24 16:18 Acetaminophen 325 Mg Tablet PO Q4H PRN Mild Pain (1-5) Or Fever Hydrocodone Bitart/Acetaminophen 1 tab 02/29/24 16:17 03/01/24 10:13 Hydrocodone/Acetaminophen (*Crx) 5-325 Mg Tablet PO 1 tab Q6H PRN Administration Pain Rated 6 or Greater Aspirin 81 mg 02/28/24 08:00 02/28/24 10:48 Aspirin 81 Mg Chewable Tablet PO Not Given DAILY@0800 [facility] Famotidine 20 mg 02/28/24 11:05 03/01/24 09:07 Famotidine 20 Mg Tablet PO 20 mg Q12HR [facility] Administration Ferrous Sulfate 325 mg 02/28/24 11:00 03/01/24 09:07 Ferrous Sulfate [address] PO 325 mg DAILY@0800 [facility] Administration Fluoxetine HCl 10 mg 02/28/24 11:00 03/01/24 09:07 Fluoxetine Hcl 10 Mg Capsule PO 10 mg DAILY [facility] Administration Folic Acid 1 mg 02/28/24 11:05 03/01/24 09:06 Folic Acid 1 Mg Tablet PO 1 mg DAILY [facility] Administration Hydrocortisone Acetate 25 mg 02/28/24 11:00 03/01/24 09:06 Hydrocortisone Acetate 25 Mg Suppository RECTAL 25 mg Q12HR [facility] Administration Hydroxyzine Pamoate 25 mg 02/28/24 10:58 02/29/24 21:54 Hydroxyzine Pamoate 25 Mg Capsule PO 25 mg TID PRN Administration Anxiety Melatonin 5 mg 02/28/24 22:06 02/29/24 21:54 Melatonin 5 Mg Tablet PO 5 mg HS PRN Administration Sleep Pantoprazole Sodium 40 mg 02/28/24 11:00 03/01/24 09:06 Pantoprazole 40 Mg Tablet PO 40 mg Q12HR [facility] Administration Vit/Calcium/Iron/Folic Ac 1 tab 02/29/24 11:20 03/01/24 09:06 Multivit/Min/Pren/Fol Ac/Iron Tablet PO 1 tab DAILY [facility] Administration Psyllium Hydrophilic Mucilloid 1 packet 02/29/24 11:20 03/01/24 09:06 Psyllium Powder Packet PO 1 packet Q12HR [facility] Administration Vitamin D 5,000 units 03/01/24 09:00 03/01/24 09:07 Cholecalciferol 5,000 Units Tablet PO 03/03/24 09:01 5,000 units DAILY [facility] Administration Vitamin D 1,000 units 03/04/24 09:00 Cholecalciferol 1,000 Units Tablet PO DAILY [facility] Radiology Results: ITS Impressions Abdomen/Pelvis CT 02/27/24 22:28 IMPRESSION: 1. Deep vein thrombosis in the pelvis and thighs with filter in the inferior vena cava. Lexiscan Stress Test 02/28/24 14:54 IMPRESSION: 1. Normal myocardial perfusion at rest and during stress. 2. Left ventricular ejection fraction measuring >70%. Venous Doppler Study 02/28/24 19:43 IMPRESSION: 1. Deep vein thrombosis involving right common femoral vein, femoral vein, deep femoral vein, and posterior tibial veins. 2. Superficial vein thrombosis involving right greater saphenous vein. Labs Labs: Laboratory Results - last 24 hr 02/28/24 03/01/24 03/01/24 18:29 03:00 04:48 WBC 9.4 RBC 3.13 L Hgb 8.8 L Hct 28.0 L MCV 89.5 MCH 28.1 MCHC 31.4 L RDW 18.9 H Plt Count 108 L MPV 9.9 % Immature Plt Fraction 2.7 Haptoglobin 45 PT 18.5 H INR 1.5 APTT 40.6 H Sodium 130 L Potassium 4.4 Chloride 105 Carbon Dioxide 20 L Anion Gap 5 BUN 9 Creatinine 1.00 Estim Creat Clear Calc 78 Estimated GFR > 60 Glucose 81 Calcium 8.3 L Total Bilirubin 0.8 AST 31 ALT 11 Alkaline Phosphatase 108 Total Protein 6.0 L Albumin 3.0 L Vitamin D 25-Hydroxy < 12.8 U Random Total Protein < 5 Urine Creatinine 399.0 Protein/Creat Ratio 2 0.01 Hep Bs Antigen Negative Hep Bs Antibody Negative Hep B Core IgM Ab Negative Hepatitis C Ab Screen Negative
[2024-03-01] MEDS: PHYTONADIONE 5 MG TABLET PO (15:09)
--- NOTE | 2024-03-01 18:42 | PC.NURSE ---
This patient, Tiarra Addison, was transferred to [facility] on 03/01/24 at 1830. Personal belongings sent with patient. Report given to Cyndie ARMENTA. Appropriate documentation sent with patient.
[2024-03-01] MEDS: hydrOXYzine pamoate 25 MG CAPSULE PO (18:50)
[2024-03-01] MEDS: MELATONIN 5 MG TABLET PO (21:19)
[2024-03-02] VITALS (14 sets, daily range): BP systolic 96–165; BP diastolic 46–102; PULSE 59–86; RESP 14–20; TEMP 36.4–37.2; O2SAT 92–100
[2024-03-02 06:08] LABS: Basophils Percent Auto 0.6 % (0.2-1.2); Eosinophils Absolute Auto 0.5 K/mm3 (0-0.3); Eosinophils Percent Auto 6.2 % (0-4.4); Hematocrit 28.1 % (37.0-47.0); Hemoglobin 8.6 g/dL (12.0-15.0); Immature Granulocyte Absolute 0.03 K/mm3 (0.00-0.031); Immature Granulocyte Percent A 0.4 % (0-0.5); Immature Platelet Fraction Pct 2.3 % (0.9-11.2); Lymphocytes Absolute Auto 1.19 K/mm3 (0.9-3.2); Lymphocytes Percent Auto 16.4 % (18.3-44.2); Mean Corpuscular HGB Conc 30.6 g/dl (32-36); Mean Corpuscular Hemoglobin 28.4 pg (26-34); Mean Corpuscular Volume 92.7 fl (80-100); Monocytes Absolute Auto 0.6 K/mm3 (0.1-0.6); Monocytes Percent Auto 8.1 % (2.6-8.5); Neutrophils Percent Auto 68.3 % (45.5-73.1); Platelet Count Result 117 k/mm3 (150-375); Red Blood Count 3.03 M/mm3 (4.2-5.4); Red Cell Distribution Width 19.2 % (11.5-14.5); White Blood Count 7.3 K/mm3 (4.5-10.0)
[2024-03-02] MEDS: HYDROcodone/acetaminophen (*CRX) 5-325 MG TABLET 1 TAB PO ×2 (06:40→13:32)
[2024-03-02 08:14] LABS: Anion Gap 6 mmol/L (4-12); Blood Urea Nitrogen 11 mg/dL (7-17); Calcium 8.6 mg/dL (8.4-10.2); Carbon Dioxide 23 mmol/L (22-30); Chloride 107 mmol/L (98-107); Estimated CRCL calculation 71 ml/min; Estimated Glomerular Filt Rate > 60; Glucose 79 mg/dL (65-110); Potassium 4.7 mmol/L (3.4-5.0); Sodium 136 mmol/L (137-145)
--- NOTE | 2024-03-02 09:13 | PC.NURSE ---
Patient off floor to surgery. Report given to Sandra ARMENTA.
[2024-03-02] MEDS: LACTATED RINGERS 1,000 ML 30 ML IV CONT (09:50)
--- NOTE | 2024-03-02 09:54 | P.PNAN_ITS ---
Anes - Initial Pre Proc Eval Procedure: Operation Date: 03/02/24 10:30 Proposed Procedures p Rectal Examination Under Anesthesia, - Garrett Nichols DO s Transanal Hemorrhoid Dearterialization - Garrett Nichols DO Date/Time: 03/02/24 09:54 Surgeon: Regina Miller MD Pre Op Diagnosis: Elevated Troponin, rectal bleed/hemorrhoid, anemia Patient Data Age: 53 Gender: F Height: 1.7 m Weight: 125.6 kg Last Vital Signs Temp 97.5 F L 03/02/24 08:00 Pulse 68 03/02/24 08:00 Resp 16 03/02/24 08:00 BP 123/69 03/02/24 08:00 Pulse Ox 93 03/02/24 08:00 O2 Del Method Room Air 03/01/24 20:00 Allergies Allergy/AdvReac Type Severity Reaction Status Date / Time No Known Allergies Allergy Verified 02/27/24 13:15 Home Medications Medication Instructions Recorded Confirmed Type famotidine 20 mg tablet 20 mg PO BID 08/12/19 02/28/24 History potassium chloride 10 mEq 10 meq PO DAILY 08/12/19 02/28/24 History tablet,extended release zolpidem 5 mg tablet 10 mg PO HS 08/12/19 02/28/24 History cyanocobalamin (vitamin B-12) 100 mcg (0.1 mL) IM MONTHLY #5 ea 08/21/19 02/28/24 Rx 1,000 mcg/mL injection kit folic acid 1 mg tablet 1 mg PO DAILY #30 tabs 08/21/19 02/28/24 Rx metoprolol succinate 25 mg 25 mg PO DAILY 10/13/19 02/28/24 History tablet,extended release 24 hr ferrous sulfate 325 mg (65 mg 325 mg PO DAILY 12/02/19 02/28/24 History iron) tablet omeprazole 40 mg capsule,delayed 40 mg PO DAILY 12/02/19 02/28/24 History release clotrimazole-betamethasone 1 1 applic topical BID #45 grams 04/08/20 02/28/24 Rx %-0.05 % topical cream lisinopril 10 mg tablet 10 mg PO DAILY 10/02/23 02/28/24 History oxycodone 10 mg tablet 10 mg PO Q6H PRN Pain 10/02/23 02/28/24 History fluoxetine 10 mg capsule 10 mg PO DAILY 02/28/24 02/28/24 History hydroxyzine pamoate 25 mg capsule 25 mg PO TID PRN Anxiety 02/28/24 02/28/24 History Laboratory Tests 03/02/24 03/02/24 05:53 07:31 WBC 7.3 K/mm3 (4.5-10.0) RBC 3.03 L M/mm3 (4.2-5.4) Hgb 8.6 L g/dL (12.0-15.0) Hct 28.1 L % (37.0-47.0) MCV 92.7 fl (80-100) MCH 28.4 pg (26-34) MCHC 30.6 L g/dl (32-36) RDW 19.2 H % (11.5-14.5) Plt Count 117 L k/mm3 (150-375) MPV 10.0 fl (7.4-10.4) Immature Gran % (Auto) 0.4 % (0-0.5) Neut % (Auto) 68.3 % (45.5-73.1) Lymph % (Auto) 16.4 L % (18.3-44.2) [place] % (Auto) 8.1 % (2.6-8.5) Eos % (Auto) 6.2 H % (0-4.4) Baso % (Auto) 0.6 % (0.2-1.2) Lymph # (Auto) 1.19 K/mm3 (0.9-3.2) [place] # (Auto) 0.6 K/mm3 (0.1-0.6) Eos # (Auto) 0.5 H K/mm3 (0-0.3) Baso # (Auto) 0.0 K/mm3 (0.0-0.1) Abs Immat Gran (auto) 0.03 K/mm3 (0.00-0.031) Absolute Neuts (auto) 5.0 K/mm3 (1.3-6.7) Absolute Nucleated RBC 0.000 K/mm3 (0.0-0.012) Nucleated RBC % 0.0 % (0.0-0.2) % Immature Plt Fraction 2.3 % (0.9-11.2) APTT (Factor Assay) Pending Factor VIII Activity Pending von Willebrand Antigen Pending Ristocetin Cofac Assay Pending Sodium 136 L mmol/L (137-145) Potassium 4.7 mmol/L (3.4-5.0) Chloride 107 mmol/L (98-107) Carbon Dioxide 23 mmol/L (22-30) Anion Gap 6 mmol/L (4-12) BUN 11 mg/dL (7-17) Creatinine 1.10 H mg/dL (0.7-1.0) Estim Creat Clear Calc 71 ml/min Estimated GFR > 60 (59 - ) Glucose 79 mg/dL (65-110) Calcium 8.6 mg/dL (8.4-10.2) Direct Plt-Bound IgG Ab Pending Heparin-induced Plt Ab Pending Hep-Induced Plt Ab Cmmt Pending Patient hx anesthesia problems: none Family hx anesthesia problems: none Results Review: All pre-operative results and documents have been reviewed as part of the pre- operative evaluation. [facility] Past Medical History Medical History Acute on chronic anemia Anemia History of several blood transfusions. 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 Glaucoma History of cellulitis History of deep venous thrombosis Hx pulmonary embolism Hypertension Hypothyroidism No longer on medication. Obesity, morbid, BMI 40.0-49.9 Osteoarthritis Peptic ulcer disease Pulmonary embolism (~04/2018) Right leg DVT Extensive right lower extremity DVT on ultrasound dated 08/26/2019. Surgical History Surgical History History of 3 sections History of dilation and curettage History of endometrial ablation History of Adrienne-en-Y gastric bypass (~1999) History of tubal ligation Presence of IVC filter (~11/2018) Performed at [facility]. Family History Family History Mother Hypertension Dementia Father Hypertension Social History Social History Social History: The patient is and lives with her daughter. I believe her grandson lives next door. 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 Lifelong nonsmoker. She drinks perhaps 2 alcoholic beverages a week. No illicit substance use. She designates her son, Jose Willis, as her surrogate decision maker and she wishes to be a full code. Smoking status: Never smoker Alcohol intake: current Drinks per week: 3 Substance use: never Do You Feel Safe in your Home?: Yes Lack of Transportation: No Lack of Food: Never True Current Housing: I Have Housing Concerned About Future Housing: No Difficulty Paying Gas/Electric Bills: No Difficulty Paying for Meds: No Currently Unemployed: No Education: Bachelor's Degree Difficulty w/ Childcare or Family Care: No Living arrangements: with family Occupation/Education: retired Gender identity (if verbalized by the patient): Female Spiritual care concerns: No Agree to blood products: Yes Anes - Eval Final PreProcedure Day of Procedure 03/02/24 09:54 Patient weight: morbidly obese Heart: regular rate and rhythm Lungs: clear to auscultation Airway: Mallampati scale and special considerations (Upper incisors w caps noted, missing L lower teeth. ) Neurological: alert and oriented Last oral intake: >/= 8 hours ASA classification: IV Emergent: no Anesthetic plan: proceed Anesthesia type and monitoring: general ETT and standard monitoring Results Review: All pre-operative results and documents have been reviewed as part of the pre- operative evaluation. Blood per rectum, anemia and subsequent type 2 TX. Cardio eval reviewed and appreciated. Stress test 2 days ago w nml LVEF, no ischemia. CARLA and hx of DVT w R fem DVT in place, IVC filter in place for several years. Informed Consent: The patient's anesthetic plan and its attendant risks and benefits were discussed with the patient/family/POA. Questions were solicited and answers provided to the satisfaction of the patient/family/POA.
--- NOTE | 2024-03-02 10:22 | PCPTNOTE ---
The patient treatment was not able to be completed on 03/02/2024 due to patient out of the room for procedure. Will plan to continue treatment per plan of care.
--- NOTE | 2024-03-02 10:35 | WPDHPUPDATE1 ---
History and Physical Update Update Date/Time: 03/02/24 10:35 History and Physical has been reviewed, including an updated exam of the patient. There are NO changes in the patient's condition. Risks, benefits, and alternatives have been discussed and questions answered. Patient agrees to proceed with procedure.
[2024-03-02] MEDS: ceFAZolin 3 GM/D5W 100 ML 100 ML IVPB (10:49)
[2024-03-02 10:52] LABS: BEDSIDEPREGUCG Negative (Negative)
[2024-03-02] MEDS: BUPIVACAINE/EPINEPHRINE 0.5% 50 ML VIAL 30 ML INFILTRATE (11:19)
--- NOTE | 2024-03-02 11:58 | W.PM.PROC2 ---
Procedure Note - Detailed Date of Procedure 03/02/24 Pre-op Diagnosis Grade II Internal Hemorrhoids Post-op Diagnosis Same Procedure Performed 1. Multiple hemorrhoid ligation (Transanal hemorrhoid dearterialization procedure) 2. Internal hemorrhoid rubber band ligation x2 Surgeon Garrett Nichols, DO Anesthesia General Indications This is a 53-year-old woman who presented to the hospital with anemia and rectal bleeding. She had been experiencing intermittent rectal bleeding for the past 6 months. She has had a colonoscopy within that time that was otherwise normal and showed no other source of GI bleed. She was started on Anusol suppositories and treated with conservative measures with fiber supplementation and Sitz baths. She still continued to have bleeding despite these efforts. Discussions were then made with the patient about further treatment options and decision was made to proceed with rectal exam under anesthesia with THD procedure. Findings Rectal exam under anesthesia was performed. The patient had some prolapsing internal hemorrhoid tissue predominantly in the left lateral position. With digital rectal exam, these hemorrhoids did start bleeding again very easily. Transanal hemorrhoid dearterialization procedure was performed using the Doppler anoscope in the locations described below. I then also performed a rubber-band ligation in the left lateral and left posterior locations to further help the internal hemorrhoids stop bleeding. No other rectal abnormalities were noted. No specimens were obtained for pathology. Description of Procedure Procedure as well as risks, benefits, and alternatives were discussed with the patient. Written consent was obtained and placed in chart prior to procedure. Patient was brought back to surgical suite. She was placed supine hospital stretcher. She was then intubated by the Anesthesia Department. She was then repositioned into prone claudia-knife position and her buttocks were taped apart on each side. Her perirectal area was prepped and draped in sterile fashion using Betadine prep. Time-out was done to confirm patient and procedure. Digital rectal exam was initially performed. A Lazaro-Palma anoscope was then inserted in the anorectal canal was carefully inspected. Prolapsing internal hemorrhoids were identified, but no other significant abnormalities were noted. The THD Doppler anoscope was then inserted. The pulsatile hemorrhoidal vessel was initially identified in the 1 o'clock location. A 2 0 Vicryl [id number] suture was placed at this location and the suture was tied down to ligate the vessel. This was then repeated in the 3, 5, 7, 9, and 11 o'clock positions. All Doppler signals were easily identified in each location. After completing this portion of the procedure, I then examined the anoderm and anal mucosa for any persistent prolapsing tissue. Internal hemorrhoid rubber band ligation was performed in the left lateral and left posterior locations. One final inspection was made around the anal rectal canal and no other abnormalities were noted. The patient was then awakened from anesthesia, extubated, and transferred to recovery. Estimated Blood Loss 20 Urine Output 300 Complications No immediate complications Condition Stable Disposition Floor [facility] Billing Surgery - Charge Forward: Surgery Billing
[2024-03-02] MEDS: fentaNYL CITRATE INJ (*CRX) 100 MCG/2 ML VIAL 25 MCG IV PUSH ×4 (12:07→12:27)
--- NOTE | 2024-03-02 12:49 | SUR.PHASEI ---
Floor RN is on break. She'll call back for report in about 5-10min.
[2024-03-02] MEDS: HYDROmorphone HCL INJ (*CRX) 1 MG/ML SYR IV PUSH ×2 (16:56→21:02)
--- NOTE | 2024-03-02 18:05 | PM.IMPN ---
Progress Note: A&P Assessment and Plan (1) Bright red rectal bleeding: Code(s): K62.5 - Hemorrhage of anus and rectum Status: Acute Assessment and Plan: Patient presents with rectal bleeding again. She was hospitalized in September and January for similar events. Recent EGD and colonoscopy in Jan were normal except for small internal hemorrhoids. GI was consulted who felt GI bleed related to hemorrhoids. Gen Surgery consulted with plans initially for conservative management with Sitz bath, Anusol ID, Metamucil. Hgb 10.3 on admission which is better than from last admission. Hgb dropped to 8 range and stable. Since she re-bled, plan changed and patient went to OR for transanal hemorrhoid dearterialization procedure which she had today. Monitor HH for stability. Transfuse as needed (2) Grade II internal hemorrhoids: Code(s): K64.1 - Second degree hemorrhoids Status: Acute Assessment and Plan: As above (3) Elevated troponin: Code(s): R79.89 - Other specified abnormal findings of blood chemistry Status: Acute Assessment and Plan: Troponin elevated but flat on admission. Trop 0.057 -> 0.061. EKG showing NSR with ST-T wave changes anterior leads. Repeat EKG showing more evident T wave inversion. She does have a loud murmur probably a flow murmur from anemia. Echo showing EF 65-70%, mild concentric LV wall thickness, Grade I diastolic dysfxn and no significant valve disease Lexiscan stress showing normal myocardial perfusion at rest and during stress. Elevated Trop could be from HoTN (87/61 in ED) and anemia. Cardiology consulted and appreciated their input (4) Acute on chronic anemia: Code(s): D64.9 - Anemia, unspecified Status: Acute Assessment and Plan: Hgb 10.3 on admission which is better than from last admission. Normocytic anemia Iron deficiency in November. Now on iron orally. No schistocytes noted. Iron and iron saturation normal but TIBC low at 187. Ferritin 147. HIV negative. LDH 270. B12 okay but Folate low end of normal. She is currently on folic acid. Suspect acute on chronic anemia with some from acute blood loss from hemorrhoids. Follow HH (5) History of deep venous thrombosis: Code(s): Z86.718 - Personal history of other venous thrombosis and embolism Status: Acute Assessment and Plan: Patient has a hx of DVT and now off Xarelto since September. She does have IVC filter in place She has chronic lymphedema probably related to chronic occlusion. CT Abd/Pelvis with contrast showing extensive pelvic and abd DVT. RLE also showing extensive DVT Hematology consulted and appreciate their input Not great options for anticoagulation since she has chronic anemia and acute blood loss Plan for surgical treatment for her hemorrhoids now. Start anti-coagulation when okay with surgery after the procedure. (6) CARLA (acute kidney injury): Code(s): N17.9 - Acute kidney failure, unspecified Status: Acute Assessment and Plan: Patient with Cr 1.2 with baseline 0.8. Probably related to poor oral intake, HoTN, anemia, diuretics and MILLIE inhibitor. CT scan does show cortical thinning of the kidneys. She did receive contrast with CT scan. Cr 1.1 today. UOP not accurate Monitor renal function and electrolytes. (7) History of Adrienne-en-Y gastric bypass: Onset Date: ~1999 Code(s): Z98.84 - Bariatric surgery status Status: Acute Assessment and Plan: Performed many years ago. She has lost some weight since September. Weight was 146kg in September but now weight down to 122kg. CT scan showing no acute findings. Possible liver cirrhosis per GI note. Liver fibrosis panel ordered. CT showing normal appearing liver. Albumin was normal on admission and no varices or ascites. Chronic hepatitis panel negative. Consider malabsorption (low VitK causing elevated INR for example). Consider celiac disease as well. Monitor oral intake. Vit D level low so will replace (she has known VitD deficiency in the past). Plan DVT Prophylaxis - SCDs Code status - full Subjective Date/time seen: 03/02/24 18:05 Interval history: 53yo female with hx of gastric bypass, anemia, GI bleed with hemorrhoids and PUD, PE/DVT and HTN here for rectal bleeding. Slept well. No CP or SOB. +LUCIA Exam Narrative: AF 97.8 108/62 79 18 96% ra Gen - NARD Chest - CTA bilaterally CV - RRR. S1-S2 Abd - Soft. Nontender. Obese. Ext - bilateral R>>L lymph edema. Psych - normal mood and affect. Skin - warm and dry. Objective Data Vital Signs Vital Signs: Vital Signs - 24 hr 03/01/24 19:02 03/01/24 20:21 03/01/24 20:00 Temperature 98.4 F 97.7 F Pulse Rate 71 93 Respiratory Rate 18 18 Blood Pressure 100/50 L 114/70 Pulse Oximetry 100 100 Oxygen Delivery Room Air Oxygen Flow Rate 03/01/24 22:44 03/02/24 00:00 03/02/24 04:00 Temperature 97.7 F 97.9 F 97.7 F Pulse Rate 93 74 71 Respiratory Rate 18 18 18 Blood Pressure 114/70 96/52 L 122/62 Pulse Oximetry 100 100 100 Oxygen Delivery Oxygen Flow Rate 03/02/24 08:00 03/02/24 09:20 03/02/24 08:00 Temperature 97.5 F L 99 F Pulse Rate 68 59 L Respiratory Rate 16 18 Blood Pressure 123/69 98/77 L Pulse Oximetry 93 100 Oxygen Delivery Room Air Room Air Oxygen Flow Rate 03/02/24 11:52 03/02/24 12:05 03/02/24 12:20 Temperature 98.0 F Pulse Rate 86 72 70 Respiratory Rate 18 14 16 Blood Pressure 115/102 H 102/70 102/46 L Pulse Oximetry 100 100 100 Oxygen Delivery Simple Face Mask Room Air Room Air Oxygen Flow Rate 8 03/02/24 12:35 03/02/24 12:50 03/02/24 13:21 Temperature 97.8 F Pulse Rate 71 73 62 Respiratory Rate 18 16 18 Blood Pressure 97/62 L 101/71 101/79 Pulse Oximetry 92 100 99 Oxygen Delivery Room Air Nasal Cannula Oxygen Flow Rate 1 03/02/24 13:51 03/02/24 14:51 Temperature 97.6 F 97.8 F Pulse Rate 63 79 Respiratory Rate 18 18 Blood Pressure 110/65 108/62 Pulse Oximetry 100 96 Oxygen Delivery Oxygen Flow Rate Intake/Output Intake/Output: Intake & Output 02/28/24 02/29/24 03/01/24 03/02/24 23:59 23:59 23:59 23:59 Intake Total 3400 2350 1860 300 Output Total 100 300 300 Balance 3300 2350 1560 0 Meds/Results Medications: Active Medications Generic Name Dose Route Start Last Admin Trade Name Freq PRN Reason Stop Dose Admin Acetaminophen 650 mg 02/29/24 16:18 Acetaminophen 325 Mg Tablet PO Q4H PRN Mild Pain (1-5) Or Fever Hydrocodone Bitart/Acetaminophen 1 tab 11/25/24 16:33 Hydrocodone/Acetaminophen (*Crx) 10-325 Mg Tablet PO Q4H PRN Pain Rated 7-10 Hydrocodone Bitart/Acetaminophen 1 tab 03/02/24 16:35 Hydrocodone/Acetaminophen (*Crx) 5-325 Mg Tablet PO Q4H PRN Pain Rated 4-6 Aspirin 81 mg 02/28/24 08:00 02/28/24 10:48 Aspirin 81 Mg Chewable Tablet PO Not Given DAILY@0800 [facility] Famotidine 20 mg 02/28/24 11:05 03/02/24 08:09 Famotidine 20 Mg Tablet PO Not Given Q12HR KENTRELL Ferrous Sulfate 325 mg 02/28/24 11:00 03/02/24 08:09 Ferrous Sulfate [address] PO Not Given DAILY@0800 [facility] Fluoxetine HCl 10 mg 02/28/24 11:00 03/02/24 08:09 Fluoxetine Hcl 10 Mg Capsule PO Not Given DAILY [facility] Folic Acid 1 mg 02/28/24 11:05 03/02/24 08:09 Folic Acid 1 Mg Tablet PO Not Given DAILY [facility] Hydromorphone HCl 1 mg 03/02/24 16:32 03/02/24 16:56 Hydromorphone Hcl Inj (*Crx) 1 Mg/Ml Syr IV PUSH 1 mg Q2H PRN Administration breakthrough Pain Rated 7-10 Hydroxyzine Pamoate 25 mg 02/28/24 10:58 03/01/24 18:50 Hydroxyzine Pamoate 25 Mg Capsule PO 25 mg TID PRN Administration Anxiety Melatonin 5 mg 02/28/24 22:06 03/01/24 21:19 Melatonin 5 Mg Tablet PO 5 mg HS PRN Administration Sleep Ondansetron HCl 4 mg 03/02/24 13:06 Ondansetron Inj 4 Mg/2 Ml Vial IV PUSH Q4H PRN Nausea And Vomiting Pantoprazole Sodium 40 mg 02/28/24 11:00 03/02/24 08:09 Pantoprazole 40 Mg Tablet PO Not Given Q12HR [facility] Vit/Calcium/Iron/Folic Ac 1 tab 02/29/24 11:20 03/02/24 08:09 Multivit/Min/Pren/Fol Ac/Iron Tablet PO Not Given DAILY [facility] Psyllium Hydrophilic Mucilloid 1 packet 02/29/24 11:20 03/02/24 08:09 Psyllium Powder Packet PO Not Given Q12HR [facility] Vitamin D 5,000 units 03/01/24 09:00 03/02/24 08:09 Cholecalciferol 5,000 Units Tablet PO 03/03/24 09:01 Not Given DAILY [facility] Vitamin D 1,000 units 03/04/24 09:00 Cholecalciferol 1,000 Units Tablet PO DAILY [facility] Radiology Results: ITS Impressions Abdomen/Pelvis CT 02/27/24 22:28 IMPRESSION: 1. Deep vein thrombosis in the pelvis and thighs with filter in the inferior vena cava. Lexiscan Stress Test 02/28/24 14:54 IMPRESSION: 1. Normal myocardial perfusion at rest and during stress. 2. Left ventricular ejection fraction measuring >70%. Venous Doppler Study 02/28/24 19:43 IMPRESSION: 1. Deep vein thrombosis involving right common femoral vein, femoral vein, deep femoral vein, and posterior tibial veins. 2. Superficial vein thrombosis involving right greater saphenous vein. Labs Labs: Laboratory Results - last 24 hr 02/28/24 03/02/24 03/02/24 11:22 05:53 07:31 WBC 7.3 RBC 3.03 L Hgb 8.6 L Hct 28.1 L MCV 92.7 MCH 28.4 MCHC 30.6 L RDW 19.2 H Plt Count 117 L MPV 10.0 Immature Gran % (Auto) 0.4 Neut % (Auto) 68.3 Lymph % (Auto) 16.4 L [place] % (Auto) 8.1 Eos % (Auto) 6.2 H Baso % (Auto) 0.6 Lymph # (Auto) 1.19 [place] # (Auto) 0.6 Eos # (Auto) 0.5 H Baso # (Auto) 0.0 Abs Immat Gran (auto) 0.03 Absolute Neuts (auto) 5.0 Absolute Nucleated RBC 0.000 Nucleated RBC % 0.0 % Immature Plt Fraction 2.3 Sodium 136 L Potassium 4.7 Chloride 107 Carbon Dioxide 23 Anion Gap 6 BUN 11 Creatinine 1.10 H Estim Creat Clear Calc 71 Estimated GFR > 60 Glucose 79 Calcium 8.6 POC Urine HCG, Qual LEIGHA Screen Negative 03/02/24 10:50 WBC RBC Hgb Hct MCV MCH MCHC RDW Plt Count MPV Immature Gran % (Auto) Neut % (Auto) Lymph % (Auto) [place] % (Auto) Eos % (Auto) Baso % (Auto) Lymph # (Auto) [place] # (Auto) Eos # (Auto) Baso # (Auto) Abs Immat Gran (auto) Absolute Neuts (auto) Absolute Nucleated RBC Nucleated RBC % % Immature Plt Fraction Sodium Potassium Chloride Carbon Dioxide Anion Gap BUN Creatinine Estim Creat Clear Calc Estimated GFR Glucose Calcium POC Urine HCG, Qual Negative LEIGHA Screen
[2024-03-02] MEDS: HYDROcodone/acetaminophen (*CRX) 10-325 MG TABLET 1 TAB PO ×2 (18:16→23:43)
[2024-03-02 19:04] LABS: Lupus dRVVT Screen 38 sec (< OR = 45); PTT-LA Screen 51 sec (< OR = 40)
[2024-03-02] MEDS: FAMOTIDINE 20 MG TABLET PO (20:57)
[2024-03-02] MEDS: PANTOPRAZOLE 40 MG TABLET PO (20:57)
[2024-03-02] MEDS: hydrOXYzine pamoate 25 MG CAPSULE PO (20:57)
[2024-03-02] MEDS: MELATONIN 5 MG TABLET PO (20:58)
[2024-03-02] MEDS: PSYLLIUM POWDER PACKET 1 PACKET PO (21:02)
[2024-03-03 00:38] VITALS: BP 94/54; PULSE 80; RESP 20; TEMP 36.6; O2SAT 100
[2024-03-03] MEDS: HYDROcodone/acetaminophen (*CRX) 10-325 MG TABLET 1 TAB PO ×3 (04:29→12:56)
[2024-03-03 05:37] VITALS: BP 93/56; PULSE 63; RESP 20; TEMP 36.5; O2SAT 100
[2024-03-03 06:31] LABS: Anion Gap 5 mmol/L (4-12); Blood Urea Nitrogen 14 mg/dL (7-17); Calcium 8.6 mg/dL (8.4-10.2); Carbon Dioxide 23 mmol/L (22-30); Chloride 107 mmol/L (98-107); Estimated CRCL calculation 67 ml/min; Estimated Glomerular Filt Rate 57; Glucose 96 mg/dL (65-110); Potassium 5.1 mmol/L (3.4-5.0); Sodium 135 mmol/L (137-145)
[2024-03-03 07:27] LABS: Hematocrit 29.1 % (37.0-47.0); Mean Corpuscular HGB Conc 30.9 g/dl (32-36); Mean Corpuscular Hemoglobin 28.8 pg (26-34); Mean Corpuscular Volume 93.3 fl (80-100); Mean Platelet Volume 10.2 fl (7.4-10.4); Platelet Count Result 142 k/mm3 (150-375); Red Blood Count 3.12 M/mm3 (4.2-5.4); Red Cell Distribution Width 19.6 % (11.5-14.5); White Blood Count 10.2 K/mm3 (4.5-10.0)
[2024-03-03] MEDS: FAMOTIDINE 20 MG TABLET PO (08:25)
[2024-03-03] MEDS: CHOLECALCIFEROL 5,000 UNITS TABLET 5000 UNITS PO (08:26)
[2024-03-03] MEDS: FERROUS SULFATE 325 MG TABLET DR PO (08:26)
[2024-03-03] MEDS: PSYLLIUM POWDER PACKET 1 PACKET PO (08:26)
[2024-03-03] MEDS: PANTOPRAZOLE 40 MG TABLET PO (08:26)
[2024-03-03] MEDS: MULTIVIT/MIN/PREN/FOL AC/IRON TABLET 1 TAB PO (08:26)
[2024-03-03] MEDS: FLUoxetine HCL 10 MG CAPSULE PO (08:26)
[2024-03-03] MEDS: FOLIC ACID 1 MG TABLET PO (08:26)
[2024-03-03] MEDS: polyethylene glycoL 3350 17 GM POWD.PACK PO (08:26)
[2024-03-03] MEDS: hydrOXYzine pamoate 25 MG CAPSULE PO (08:34)
--- NOTE | 2024-03-03 09:14 | WPDANESPN ---
Anes - Prog Note Post-Op Date/Time: 03/03/24 09:14 Cardiovascular status: normal Respiratory status: normal Airway patency: baseline Mental status: baseline Post-Op hydration status: normal Vital Signs: Last Vital Signs Temp 36.5 C 03/03/24 05:37 Pulse 63 03/03/24 05:37 Resp 20 03/03/24 05:37 BP 93/56 L 03/03/24 05:37 Pulse Ox 100 03/03/24 05:37 O2 Del Method Room Air 03/02/24 20:00 O2 Flow Rate 1 03/02/24 12:50 Pain Score (VAS): 06/15 I/O: Intake & Output 03/02/24 03/03/24 03/03/24 23:59 07:59 15:59 Intake Total 240 390 Balance 240 390 Laboratory Tests 03/03/24 07:20 03/03/24 06:06 02/28/24 02/28/24 03/02/24 11:21 11:22 07:26 WBC RBC Hgb Hct MCV MCH MCHC RDW Plt Count MPV LA PTT Screen 51 H dRVVT Screen 38 Lupus Anticoag Interp See note [id number] Activity Pending [id number] Activity Intrp Pending Sodium Potassium Chloride Carbon Dioxide Anion Gap BUN Creatinine Estim Creat Clear Calc Estimated GFR Glucose Calcium POC Urine HCG, Qual LEIGHA Screen Negative 03/02/24 03/03/24 03/03/24 10:50 06:06 07:20 WBC 10.2 H RBC 3.12 L Hgb 9.0 L Hct 29.1 L MCV 93.3 MCH 28.8 MCHC 30.9 L RDW 19.6 H Plt Count 142 L MPV 10.2 LA PTT Screen dRVVT Screen Lupus Anticoag Interp [id number] Activity [id number] Activity Intrp Sodium 135 L Potassium 5.1 H Chloride 107 Carbon Dioxide 23 Anion Gap 5 BUN 14 Creatinine 1.20 H Estim Creat Clear Calc 67 Estimated GFR 57 L Glucose 96 Calcium 8.6 POC Urine HCG, Qual Negative LEIGHA Screen Post-procedural complaints: none Patient Feedback: Patient satisfied with anesthetic care.
--- NOTE | 2024-03-03 09:55 | PCPTNOTE ---
Attempted to see patient for PT, patient declined due to anticipated discharge this date. 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
--- NOTE | 2024-03-03 10:36 | PM.PNGS ---
Progress Note: A&P Assessment and Plan (1) Grade II internal hemorrhoids: Code(s): K64.1 - Second degree hemorrhoids Status: Acute Assessment and Plan: POD1 following hemorrhoid dearterialization and rubber band ligation. No rectal bleeding overnight. Discussed all d/c care instructions with the patient. She is okay to discharge from a surgical standpoint when medically stable. Will have her f/u in [address] Nichols. (2) Thrombocytopenia: Code(s): D69.6 - Thrombocytopenia, unspecified Status: Acute (3) Acute on chronic anemia: Code(s): D64.9 - Anemia, unspecified Status: Acute Assessment and Plan: Hgb stable today. No rectal bleeding overnight or this morning. (4) History of deep venous thrombosis: Code(s): Z86.718 - Personal history of other venous thrombosis and embolism Status: Acute Assessment and Plan: Okay to resume anticoagulation on Plan I have discussed the patient's case and plan of care with Dr. Nichols. Subjective Subjective Date/Time Seen: 03/03/24 10:36 Post Op day: 1 (Multiple hemorrhoid ligation, Internal hemorrhoid rubber band ligation x2) Patient reports: feels better and pain is less Interval history: Patient reports having postoperative rectal soreness, but tolerable and well controlled with pain medication. Denies any rectal bleeding since surgery. Exam GI: Other: Perirectal area inspected with no visible bleeding noted. Objective Data Vital Signs Vital Signs: Vital Signs - 24 hr 03/02/24 11:52 03/02/24 12:05 03/02/24 12:20 Temperature 98.0 F Pulse Rate 86 72 70 Respiratory Rate 18 14 16 Blood Pressure 115/102 H 102/70 102/46 L Pulse Oximetry 100 100 100 Oxygen Delivery Simple Face Mask Room Air Room Air Oxygen Flow Rate 8 03/02/24 12:35 03/02/24 12:50 03/02/24 13:21 Temperature 97.8 F Pulse Rate 71 73 62 Respiratory Rate 18 16 18 Blood Pressure 97/62 L 101/71 101/79 Pulse Oximetry 92 100 99 Oxygen Delivery Room Air Nasal Cannula Oxygen Flow Rate 1 03/02/24 13:51 03/02/24 14:51 03/02/24 18:51 Temperature 97.6 F 97.8 F 97.5 F L Pulse Rate 63 79 82 Respiratory Rate 18 18 18 Blood Pressure 110/65 108/62 165/54 H Pulse Oximetry 100 96 97 Oxygen Delivery Oxygen Flow Rate 03/02/24 19:30 03/02/24 20:00 03/03/24 00:38 Temperature 98.1 F 97.8 F Pulse Rate 86 80 Respiratory Rate 20 20 Blood Pressure 115/55 L 94/54 L Pulse Oximetry 98 100 Oxygen Delivery Room Air Oxygen Flow Rate 03/03/24 05:37 Temperature 97.7 F Pulse Rate 63 Respiratory Rate 20 Blood Pressure 93/56 L Pulse Oximetry 100 Oxygen Delivery Oxygen Flow Rate Intake/Output Intake/Output: Intake & Output 02/29/24 03/01/24 03/02/24 03/03/24 23:59 23:59 23:59 23:59 Intake Total 2350 1860 540 508 Output Total 300 300 Balance 2350 1560 240 508 Meds/Results Medications: Active Medications Generic Name Dose Route Start Last Admin Trade Name Freq PRN Reason Stop Dose Admin Acetaminophen 650 mg 02/29/24 16:18 Acetaminophen 325 Mg Tablet PO Q4H PRN Mild Pain (1-5) Or Fever Hydrocodone Bitart/Acetaminophen 1 tab 03/02/24 16:33 03/03/24 08:25 Hydrocodone/Acetaminophen (*Crx) 10-325 Mg Tablet PO 1 tab Q4H PRN Administration Pain Rated 7-10 Hydrocodone Bitart/Acetaminophen 1 tab 03/02/24 16:35 Hydrocodone/Acetaminophen (*Crx) 5-325 Mg Tablet PO Q4H PRN Pain Rated 4-6 Aspirin 81 mg 02/28/24 08:00 02/28/24 10:48 Aspirin 81 Mg Chewable Tablet PO Not Given DAILY@0800 [facility] Famotidine 20 mg 02/28/24 11:05 03/03/24 08:25 Famotidine 20 Mg Tablet PO 20 mg Q12HR K[facility]RELL Administration Ferrous Sulfate 325 mg 02/28/24 11:00 03/03/24 08:26 Ferrous Sulfate [address] PO 325 mg DAILY@0800 [facility] Administration Fluoxetine HCl 10 mg 02/28/24 11:00 03/03/24 08:26 Fluoxetine Hcl 10 Mg Capsule PO 10 mg DAILY [facility]RE[facility] Administration Folic Acid 1 mg 02/28/24 11:05 03/03/24 08:26 Folic Acid 1 Mg Tablet PO 1 mg DAILY [facility] Administration Hydromorphone HCl 1 mg 03/02/24 16:32 03/02/24 21:02 Hydromorphone Hcl Inj (*Crx) 1 Mg/Ml Syr IV PUSH 1 mg Q2H PRN Administration breakthrough Pain Rated 7-10 Hydroxyzine Pamoate 25 mg 02/28/24 10:58 03/03/24 08:34 Hydroxyzine Pamoate 25 Mg Capsule PO 25 mg TID PRN Administration Anxiety Melatonin 5 mg 02/28/24 22:06 03/02/24 20:58 Melatonin 5 Mg Tablet PO 5 mg HS PRN Administration Sleep Ondansetron HCl 4 mg 03/02/24 13:06 Ondansetron Inj 4 Mg/2 Ml Vial IV PUSH Q4H PRN Nausea And Vomiting Pantoprazole Sodium 40 mg 02/28/24 11:00 03/03/24 08:26 Pantoprazole 40 Mg Tablet PO 40 mg Q12HR [facility] Administration Polyethylene Glycol 17 gm 03/03/24 09:00 03/03/24 08:26 Polyethylene Glycol 3350 17 Gm Powd.Pack PO 17 gm QAM [facility] Administration Vit/Calcium/Iron/Folic Ac 1 tab 02/29/24 11:20 03/03/24 08:26 Multivit/Min/Pren/Fol Ac/Iron Tablet PO 1 tab DAILY [facility] Administration Psyllium Hydrophilic Mucilloid 1 packet 02/29/24 11:20 03/03/24 08:26 Psyllium Powder Packet PO 1 packet Q12HR [facility] Administration Vitamin D 1,000 units 03/04/24 09:00 Cholecalciferol 1,000 Units Tablet PO DAILY [facility] Radiology Results: ITS Impressions Abdomen/Pelvis CT 02/27/24 22:28 IMPRESSION: 1. Deep vein thrombosis in the pelvis and thighs with filter in the inferior vena cava. Lexiscan Stress Test 02/28/24 14:54 IMPRESSION: 1. Normal myocardial perfusion at rest and during stress. 2. Left ventricular ejection fraction measuring >70%. Venous Doppler Study 02/28/24 19:43 IMPRESSION: 1. Deep vein thrombosis involving right common femoral vein, femoral vein, deep femoral vein, and posterior tibial veins. 2. Superficial vein thrombosis involving right greater saphenous vein. Labs Labs: Laboratory Results - last 24 hr 02/28/24 02/28/24 03/02/24 11:21 11:22 10:50 WBC RBC Hgb Hct MCV MCH MCHC RDW Plt Count MPV LA PTT Screen 51 H dRVVT Screen 38 Lupus Anticoag Interp See note Sodium Potassium Chloride Carbon Dioxide Anion Gap BUN Creatinine Estim Creat Clear Calc Estimated GFR Glucose Calcium POC Urine HCG, Qual Negative LEIGHA Screen Negative 03/03/24 03/03/24 03/03/24 05:53 06:06 07:20 WBC 10.2 H RBC 3.12 L Hgb 9.0 L Hct 29.1 L MCV 93.3 MCH 28.8 MCHC 30.9 L RDW 19.6 H Plt Count 142 L MPV 10.2 LA PTT Screen dRVVT Screen Lupus Anticoag Interp Sodium 135 L Potassium Cancelled 5.1 H Chloride 107 Carbon Dioxide 23 Anion Gap 5 BUN 14 Creatinine 1.20 H Estim Creat Clear Calc 67 Estimated GFR 57 L Glucose 96 Calcium 8.6 POC Urine HCG, Qual LEIGHA Screen
[2024-03-03 10:49] LABS: Hepatitis B Core Ab Total NON-REACTIVE (NON-REACTIVE)
[2024-03-03 10:51] VITALS: BP 115/57; PULSE 68; RESP 18; TEMP 36.7; O2SAT 99
--- NOTE | 2024-03-03 14:47 | PM.DS ---
DS: Admitting Diagnosis Discharge Date 03/03/24 Admitting Diagnosis Rectal bleeding DS: Discharge Diagnosis Discharge Diagnosis (1) Bright red rectal bleeding: Code(s): K62.5 - Hemorrhage of anus and rectum Status: Acute (2) Grade II internal hemorrhoids: Code(s): K64.1 - Second degree hemorrhoids Status: Acute (3) Elevated troponin: Code(s): R79.89 - Other specified abnormal findings of blood chemistry Status: Acute (4) Acute on chronic anemia: Code(s): D64.9 - Anemia, unspecified Status: Acute (5) History of deep venous thrombosis: Code(s): Z86.718 - Personal history of other venous thrombosis and embolism Status: Acute (6) CARLA (acute kidney injury): Code(s): N17.9 - Acute kidney failure, unspecified Status: Acute (7) History of Adrienne-en-Y gastric bypass: Onset Date: ~1999 Code(s): Z98.84 - Bariatric surgery status Status: Acute DS: Summary Hospital Course Reason for hospitalization: 53yo female with hx of gastric bypass, anemia, GI bleed with hemorrhoids and PUD, PE/DVT and HTN here for rectal bleeding. Please see H&P for details. Hospital Course: Patient presents with rectal bleeding. Recent EGD and colonoscopy last month normal except for internal hemorrhoids. GI was consulted who felt GI bleed related to hemorrhoids. GenSurgery consulted with plans for conservative management with Anusol [place], Metamucil and Sitz baths. Hgb 10.3 on admission which is better than from last admission. She had a normocytic anemia. She was iron deficient in November. Now on iron orally. No schistocytes noted. Here, iron level and saturation normal but TIBC low at 187. Ferritin 147. HIV negative. LDH 270. B12 okay but Folate low end of normal so folic acid started. Hgb dropped to 8 range and remained stable. Patient with Cr 1.2 with baseline 0.8. CARLA probably related to poor oral intake, HoTN, anemia and MILLIE inhibitor. CT scan does show cortical thinning of the kidneys. She did receive contrast with CT scan. Cr 1.0 today. Troponin elevated but flat on admission. Trop 0.057 -> 0.061. EKG showing NSR with ST-T wave changes anterior leads. Repeat EKG showing more evident T wave inversion. She does have a loud murmur probably a flow murmur from anemia. Echo showing EF 65-70%, mild concentric LV wall thickness, Grade I diastolic dysfxn and no significant valve disease. Lexiscan stress showing normal myocardial perfusion at rest and during stress. Elevated Trop could be from HoTN (87/61 in ED) and/or anemia. Cardiology consulted and appreciated their input. Patient has a hx of DVT and now off Xarelto since June. She does have IVC filter in place. She has chronic lymphedema probably related to chronic occlusion. CT Abd/Pelvis with contrast showing extensive pelvic and abdominal DVTs. Rt LE doppler also showing extensive DVTs. Please see reports for details. Not great options for anticoagulation since she has chronic anemia and acute blood loss. Hematology consulted and appreciated their input. Possible liver cirrhosis per GI note. Liver fibrosis panel ordered. CT showing normal appearing liver. Albumin was normal on admission and no varices or ascites. Consider Vitamin deficiency related to gastric bypass (Vit K deficiency could cause elevated INR for example). Consider celiac disease. She was Vit D deficient and this was replaced. Hepatitis panel negative. Patient re-bled so plan changed. She underwent a transanal hemorrhoid dearterialization procedure on 03/02 and tolerated the procedure well. No recurrent rectal bleeding. Spoke with hematology who recommended Xarelto 10mg daily when okay with General Surgery. General surgery felt she could start Xarelto on 03/05. She feels well. Walking in the room. She overall did well and was able to be discharged home on 03/03/24. Status at Discharge Cognitive/behavioral status at discharge: stable Time Spent with Patient Time attestation: Total time spent providing and/or coordinating discharge services: 36 minutes Time spent: Greater than 30 minutes Exam Narrative: AF 98.0 115/57 68 18 99% ra Gen - NARD Chest - CTA bilaterally bilaterally CV - RRR. S1-S2 Abd - Soft. Nontender. Obese. Ext - bilateral R>>L lymph edema. Psych - normal mood and affect. Skin - warm and dry. DS: Data Data Completed and Pending Labs on day of discharge: Labs from last 24 hours 03/03/24 03/03/24 03/03/24 07:20 06:06 05:53 WBC 10.2 H RBC 3.12 L Hgb 9.0 L Hct 29.1 L MCV 93.3 MCH 28.8 MCHC 30.9 L RDW 19.6 H Plt Count 142 L MPV 10.2 LA PTT Screen dRVVT Screen Lupus Anticoag Interp Sodium 135 L Potassium 5.1 H Cancelled Chloride 107 Carbon Dioxide 23 Anion Gap 5 BUN 14 Creatinine 1.20 H Estim Creat Clear Calc 67 Estimated GFR 57 L Glucose 96 Calcium 8.6 LEIGHA Screen Hep B Core Total Ab 03/01/24 02/28/24 02/28/24 04:37 11:22 11:21 WBC RBC Hgb Hct MCV MCH MCHC RDW Plt Count MPV LA PTT Screen 51 H dRVVT Screen 38 Lupus Anticoag Interp See note Sodium Potassium Chloride Carbon Dioxide Anion Gap BUN Creatinine Estim Creat Clear Calc Estimated GFR Glucose Calcium LEIGHA Screen Negative Hep B Core Total Ab Non-reactive Discharge Plan Discharge Attending physician on discharge: Shaggy Johnson Consulting providers: Hardik Mane; Pooja Villegas; Garrett Nichols Discharging Clinician: Shaggy Johnson Anticipated Discharge Date/Time: 03/03/24 14:54 Patient Disposition: Home, Self-Care Activity: no straining and as tolerated Diet: high fiber Discharge Instructions: FibroScan at [facility] as discussed. Check blood pressure 1 to 2 times a day. Record and bring into your doctor for review. Call your doctor if your blood pressure is greater than 180/110. MILLIE wraps to both legs on in the morning and off at night Contact your doctor or call 911 and come to the Emergency Room if you have persistent rectal bleeding, lightheadedness with standing or other worrisome symptoms. Avoid NSAIDs (ibuprofen, naproxen, Aleve). Tylenol is safe to take. You have been started on Xarelto 10mg with the evening meal which is a blood thinner for the blood clots. START ON 03/05/24 Follow-up with your primary care provider in 1-2 weeks. Please call for appointment. Follow-up with General Surgery in 2 weeks. Please call for an appointment. Follow-up with GI doctor after you have had your FibroScan. Please call for an appointment. Follow-up with Oil Refinery Operator in 2-4 weeks . Please call for an appointment. Thank you for using [facility] for your health care needs. Discharge Instructions for Anorectal Surgery Dr. Nichols 1. May discharge from Outpatient Surgery area when stable per protocol. 2. Activity: Remove dressing and start Sitz baths in a.m. Following surgery once at home, all patients should take 10-20 minute Sitz baths at least twice a day and as needed after each bowel movement. Rest around the house for the next 1-2 days, taking frequent walks. No driving for 2-3 days or while taking narcotic pain medications. 3. Diet: High fiber diet with 6-8 glasses of water per day. Eat plenty of fruits and vegetables. 4. Medications: Resume all home medications Metamucil 1 tablespoon PO twice a day Milk of Magnesia 1 oz (30cc) PO daily or Miralax 1 capful PO daily Tucks cream pads to perianal skin after each Sitz bath Prescriptions for the above medications will be provided at the time of discharge or they can be bought [id number]. 5. Follow-up: call office for appointment in 10-14 days or as previously scheduled. 6. Call office if: Sudden increase in pain, swelling or incisional drainage or bleeding occurs Fever > 101 degrees F Nausea and vomiting occur Inability to urinate Patient Instructions: Antibiotic Form, Gastrointestinal Bleeding (GEN), Deep Vein Thrombosis (GEN), Deep Vein Thrombosis Prevention (GEN) Stand Alone Forms: General Discharge Information Follow-up/Referrals: Hardik Mane MD [Physician] - Call for Appointment Marcos Guerrero MD [Physician] - Call for Appointment UNKNOWN,DOCTOR [Primary Care Provider] - Call for Appointment Garrett Nichols DO [Physician] - 2 Weeks Discharge Medications: New Metamucil (with sugar) 3.4 gram Powder In Packet 1 ea PO BID Qty: 60 1RF Rx Instructions: 1 packet in 8 ounces of water 2x/day cholecalciferol (vitamin D3) [Vitamin D3] 25 mcg (1,000 unit) Tablet 1,000 unit PO DAILY Qty: 30 1RF polyethylene glycol 3350 [Miralax] 17 gram Powder In Packet 17 g PO QAM Qty: 30 1RF Xarelto 10 mg tablet 10 mg PO QPM Qty: 30 1RF Rx Instructions: START ON 03/05/24 Continued omeprazole 40 mg capsule,delayed release(DR/EC) 40 mg PO DAILY ferrous sulfate 325 mg (65 mg iron) tablet 325 mg PO DAILY famotidine 20 mg tablet 20 mg PO BID folic acid 1 mg Tablet 1 mg PO DAILY Qty: 30 0RF cyanocobalamin (vitamin B-12) 1,000 mcg/mL kit 100 mcg IM MONTHLY Qty: 5 0RF Rx Instructions: Receives on of every month clotrimazole-betamethasone 1-0.05 % cream 1 applic topical BID Qty: 45 0RF Rx Instructions: apply to BLE fluoxetine 10 mg capsule 10 mg PO DAILY hydroxyzine pamoate 25 mg capsule 25 mg PO TID PRN (Reason: Anxiety) Held metoprolol succinate 25 mg Tablet Extended Release 24 Hr 25 mg PO DAILY Hold Instructions: Hold - Resume when okay with your doctor potassium chloride 10 mEq tablet extended release 10 meq PO DAILY Hold Instructions: Hold - Resume when okay with your doctor lisinopril 10 mg tablet 10 mg PO DAILY Hold Instructions: Hold - Resume when okay with your doctor Discontinued zolpidem 5 mg tablet 10 mg PO HS Patient Comments: oxycodone 10 mg tablet 10 mg PO Q6H PRN (Reason: Pain) Date of admission: 03/01/24 15:37 Primary Care Provider: UNKNOWN,DOCTOR Admitting Provider: Regina Miller V. Attending physician on admission: Regina Miller V. Condition: Stable Hospitalist MIPS Heart Failure (Exclusion) Patient has history of Heart Transplant or Left Ventricular Assistive Device?: No IF YES, STOP HERE Heart Failure (Qualifier) Patient has current or prior documentation of LVEF less than or equal to 40%, or mod/servere depressed LVSF?: No IF NO, STOP HERE
[2024-03-03 14:51] VITALS: BP 105/50; PULSE 72; RESP 18; TEMP 36.7; O2SAT 100
[2024-03-03 22:08] LABS: Heparin Induced Platelet Antib Negative (Negative)
[2024-03-04 03:33] LABS: Anti Cardio Antibody IgM <2.0 MPL-U/mL; Anti Cardiolipin Antibody IgA 2.7 APL-U/mL; Anti Cardiolipin Antibody IgA 3.4 APL-U/mL; Anti Cardiolipin Antibody IgG <2.0 GPL-U/mL
--- NOTE | 2024-03-04 09:15 | PC.NURSE ---
Anticardiolipin Ab are WNL. LEIGHA is negative. Hep B core B AB is non reactive. Hep plt Ab is negative. Dr. Elizabeth valle.
[2024-03-04 11:23] LABS: aPTT 32 sec (23-32)
[2024-03-04 14:58] LABS: Immunoglobulin A 644 mg/dL (47-310); TTG IGA AB <1.0 U/mL
[2024-03-05 16:39] LABS: Vitamin D 1,25 (OH)2 Total 21 pg/mL (18-72); Vitamin D2 1,25 (OH)2 <8 pg/mL; Vitamin D3 1,25 (OH)2 21 pg/mL
[2024-03-06 17:03] LABS: ADAMTS-13 Activity 0.53 IU/mL (0.68-1.63)
[2024-03-07 21:44] LABS: Platelet Antibody, Direct IgG NEGATIVE (NEGATIVE)
--- NOTE | 2024-03-09 08:35 | PC.NURSE ---
1,25 Vit D is 12.8 which is [facility] Dr. Johnson aware.
[2024-03-11 14:13] LABS: ALT 8 U/L (6-29); Alpha-2-Macroglobulin 150 mg/dL (106-279); Apolipoprotein A1 111 mg/dL (101-198); Fibrosis Score 0.26; Fibrosis Stage F0-F1; GGT 11 U/L (3-70); Haptoglobin 39 mg/dL (43-212); Necroinflammat Act Grade A0; Reference ID 5231011; Total Bilirubin 0.7 mg/dL (0.2-1.2)
== END 2024-03-03 15:33 | disposition home or self-care (01) | DRG 348 ==
LOC: ANHED 23:24 → ANH3MEDSUR 02-28 02:43 → ANHIMU 02-28 03:06 → ANH2MED 03-02 07:10 → ANHIMU 03-04 08:43
PROVIDERS: Internal Medicine Gastroenterology; Internal Medicine Hematology & Oncology; Registered Nurse; Surgery; Admitting Provider Internal Medicine; Emergency Provider Emergency Medicine; Visit Provider Internal Medicine
PROC: 06LY8CC Occlusion of Hemorrhoidal Plexus with Extraluminal Device, Via Natural or Artificial Opening Endoscopic (ICD-10-PCS; principal; 2024-03-02 10:30)
PROC: 06LY8CC Occlusion of Hemorrhoidal Plexus with Extraluminal Device, Via Natural or Artificial Opening Endoscopic (ICD-10-PCS; CPT 46948; 2024-03-02 10:30)
DX: K64.1 Second degree hemorrhoids (principal); D62 Acute posthemorrhagic anemia; Z68.41 Body mass index [BMI] 40.0-44.9, adult; N17.9 Acute kidney failure, unspecified; I82.4Y3 Acute embolism and thrombosis of unspecified deep veins of proximal lower extremity, bilateral; I82.890 Acute embolism and thrombosis of other specified veins; I82.411 Acute embolism and thrombosis of right femoral vein; I82.441 Acute embolism and thrombosis of right tibial vein; I82.811 Embolism and thrombosis of superficial veins of right lower extremity; Z95.828 Presence of other vascular implants and grafts; K21.9 Gastro-esophageal reflux disease without esophagitis; K27.9 Peptic ulcer, site unspecified, unspecified as acute or chronic, without hemorrhage or perforation; H40.9 Unspecified glaucoma; E86.0 Dehydration; E03.9 Hypothyroidism, unspecified; K76.0 Fatty (change of) liver, not elsewhere classified; K74.60 Unspecified cirrhosis of liver; E55.9 Vitamin D deficiency, unspecified; D69.59 Other secondary thrombocytopenia; M19.90 Unspecified osteoarthritis, unspecified site; I10 Essential (primary) hypertension; E66.01 Morbid (severe) obesity due to excess calories; R79.89 Other specified abnormal findings of blood chemistry; Z86.711 Personal history of pulmonary embolism; Z87.11 Personal history of peptic ulcer disease; Z98.84 Bariatric surgery status
CPT/HCPCS: 36415; 74177; 78452; 80048; 80053; 80069; 81596; 82306; 82570; 82607; 82652; 82728; 82746; 82784; 83010; 83540; 83550; 83605; 83615; 83690; 83735; 84156; 84238; 84439; 84443; 84480; 84484; 85014; 85018; 85025; 85027; 85055; 85240; 85246; 85397; 85610; 85613; 85730; 86022; 86023; 86038; 86039; 86146; 86147; 86364; 86703; 86704; 86705; 86706; 86803; 86850; 86880; 86900; 86901; 87340; 93005; 93017; 93971; 96361; 96374; 96375; 96376; 97161; 97165; 99285; A9270; A9502; C8929; G0378; G0432; J0690; J1100; J1171; J2003; J2250; J2270; J2405; J2470; J2704; J2785; J3010; J7030; J7120; Q9957; Q9967

== ENCOUNTER 2024-03-21 00:41 | Emergency (ER) | payer MEDICARE, SELFPAY ==
[2024-03-21] VITALS (7 sets, daily range): BP systolic 97–138; BP diastolic 71–81; PULSE 67–76; RESP 13–16; TEMP 36.4; O2SAT 96–100
--- NOTE | ~2024-03-21 | XR_ITS ---
EXAMINATION: XR chest 1V portable DATE: 03/21/2024 02:29 INDICATION: Chest pain TECHNIQUE: frontal view of the chest was obtained. COMPARISON: Chest radiograph dated 04/06/2020 FINDINGS: The lungs remain clear with no focal airspace opacities, pulmonary edema, pleural effusion or pneumot horax. The cardiomediastinal silhouette is normal. Visualized bones and soft tissues are unremarkable . IMPRESSION: 1. No acute cardiopulmonary disease. Reviewed, dictated and finalized at location A. [facility]
--- NOTE | 2024-03-21 00:47 | ECG_ITS ---
Test Date: 2024-03-21 00:54:41 Measurements Intervals [place] Rate: 71 P: 25 SC: 195 QRS: -13 QRSD: 97 T: 1 QT: 436 QTc: 476 Interpretive Statements SINUS RHYTHM LOW QRS VOLTAGE IN PRECORDIAL LEADS [QRS DEFLECTION < 1.0 mV IN CHEST LEADS] PATTERN CONSISTENT WITH PULMONARY DISEASE MINIMAL VOLTAGE CRITERIA FOR LVH, CONSIDER NORMAL VARIANT [MEETS CRITERIA IN ONE OF: R(aVL), S(V1), R(V5), R(V5/V6)+S(V1)] Compared to ECG 02/28/2024 03:32:57 Low QRS voltage now present T-wave abnormality no longer present Possible ischemia no longer present Electronically Signed On 03-21-2024 08:59:53 VENTILATOR SPECIALIST by Saira Mao M.D.
[2024-03-21 02:26] LABS: Basophils Percent Auto 0.3 % (0.2-1.2); Eosinophils Absolute Auto 0.6 K/mm3 (0-0.3); Eosinophils Percent Auto 9.7 % (0-4.4); Hematocrit 29.5 % (37.0-47.0); Hemoglobin 9.1 g/dL (12.0-15.0); Immature Granulocyte Absolute 0.02 K/mm3 (0.00-0.031); Immature Granulocyte Percent A 0.3 % (0-0.5); Lymphocytes Absolute Auto 0.86 K/mm3 (0.9-3.2); Lymphocytes Percent Auto 14.3 % (18.3-44.2); Mean Corpuscular HGB Conc 30.8 g/dl (32-36); Mean Corpuscular Hemoglobin 27.4 pg (26-34); Mean Corpuscular Volume 88.9 fl (80-100); Monocytes Absolute Auto 0.4 K/mm3 (0.1-0.6); Neutrophils Absolute Auto 4.1 K/mm3 (1.3-6.7); Neutrophils Percent Auto 68.4 % (45.5-73.1); Platelet Count Result 237 k/mm3 (150-375); Red Blood Count 3.32 M/mm3 (4.2-5.4); Red Cell Distribution Width 17.2 % (11.5-14.5)
[2024-03-21 02:36] LABS: INR 1.8; Prothrombin Time 21.4 Seconds (11.1-14.7)
[2024-03-21 02:37] LABS: Partial Thromboplastin Time 46.8 Seconds (22.3-36.8)
--- NOTE | 2024-03-21 02:38 | PC.NURSE ---
Pt states she has increased swelling in her lower extremities. Pt states she has lymphedema in her legs but the swelling is worse
[2024-03-21 02:54] LABS: Alanine Aminotransferase 10 U/L (6-35); Albumin Level 3.3 g/dL (3.5-5.1); Alkaline Phosphatase 88 U/L (38-126); Anion Gap 4 mmol/L (4-12); Aspartate Amino Transferase 24 U/L (14-36); Bilirubin,Total 0.5 mg/dL (0.2-1.3); Blood Urea Nitrogen 11 mg/dL (7-17); Calcium 9.3 mg/dL (8.4-10.2); Carbon Dioxide 23 mmol/L (22-30); Chloride 110 mmol/L (98-107); Estimated CRCL calculation 100 ml/min; Estimated Glomerular Filt Rate > 60; Glucose 82 mg/dL (65-110); Lipase 54 U/L (23-300); Potassium 3.5 mmol/L (3.4-5.0); Sodium 137 mmol/L (137-145)
[2024-03-21 03:05] LABS: Troponin I < 0.012 ng/mL (0.000-0.034)
--- NOTE | 2024-03-21 03:33 | ED_ITS ---
HPI - Chest Pain General Chief Complaint: Chest Pain Stated Complaint: chest pain Time Seen by Provider: 03/21/24 01:53 History of Present Illness HPI narrative: This is a 53-year-old female with complex past medical history including gastric bypass, peptic ulcer disease, liver disease with potential cirrhosis, chronic lymphedema and chronic DVTs on Xarelto and with an IVC filter presently. She was recently admitted to the hospital for bleeding anal rectal hemorrhoids requiring angioembolization. Patient has been doing well since her discharge denies any new or recent bleeding. She states that she is having some chest discomfort left side of her chest but no difficulty breathing, nausea, vomiting. She states she has also noted some more swelling in her legs although they are chronically very large and edematous from lymphedema and chronic blood clot burden. She presently is taking Xarelto at the recommendations of her multi disciplinary team during her previous admission. No missed dosages, tolerating this therapy well. She otherwise denies any flu-like symptoms such as myalgias, fever, chills, headache, nausea, vomiting. Not any acute distress and otherwise well-appearing Related Data Home Medications ?Medication ?Instructions ?Recorded ?Confirmed ?Last Taken ?Type famotidine 20 mg tablet 20 mg PO BID 08/12/19 03/02/24 02/27/24 History potassium chloride 10 mEq 10 meq PO DAILY 08/12/19 03/02/24 02/27/24 History tablet,extended release metoprolol succinate 25 mg 25 mg PO DAILY 10/13/19 03/02/24 02/27/24 History tablet,extended release 24 hr ferrous sulfate 325 mg (65 mg 325 mg PO DAILY 12/02/19 03/02/24 02/27/24 History iron) tablet omeprazole 40 mg capsule,delayed 40 mg PO DAILY 12/02/19 03/02/24 02/27/24 History release lisinopril 10 mg tablet 10 mg PO DAILY 10/02/23 03/02/24 02/27/24 History fluoxetine 10 mg capsule 10 mg PO DAILY 02/28/24 03/02/24 02/27/24 History hydroxyzine pamoate 25 mg capsule 25 mg PO TID PRN Anxiety 02/28/24 03/02/24 Unknown History Allergies Allergy/AdvReac Type Severity Reaction Status Date / Time No Known Allergies Allergy Verified 03/02/24 10:56 Review of Systems 2 Review of Systems: As reviewed above in [facility] Past Medical History Medical History 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 GI bleed (~04/2019) Secondary to peptic ulcers. Peptic ulcer disease Pulmonary embolism (~04/2018) History of deep venous thrombosis B12 deficiency Right leg DVT Extensive right lower extremity DVT on ultrasound dated 08/26/2019. Hx pulmonary embolism Hypertension Anemia History of several blood transfusions. Surgical History Surgical History History of endometrial ablation History of dilation and curettage History of tubal ligation History of 3 sections Presence of IVC filter (~11/2018) Performed at [facility]. History of Adrienne-en-Y gastric bypass (~1999) Family History Family History Mother Hypertension Dementia Father Hypertension Social History Social History Social History: The patient is and lives with her daughter. I believe her grandson lives next door. 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 Lifelong nonsmoker. She drinks perhaps 2 alcoholic beverages a week. No illicit substance use. She designates her son, Jose Willis, as her surrogate decision maker and she wishes to be a full code. Smoking status: Never smoker Alcohol intake: current Drinks per week: 3 Substance use: never Do You Feel Safe in your Home?: Yes Lack of Transportation: No Lack of Food: Never True Current Housing: I Have Housing Concerned About Future Housing: No Difficulty Paying Gas/Electric Bills: No Difficulty Paying for Meds: No Currently Unemployed: No Education: Bachelor's Degree Difficulty w/ Childcare or Family Care: No Living arrangements: with family Occupation/Education: retired Gender identity (if verbalized by the patient): Female Spiritual care concerns: No Agree to blood products: Yes Exam 2 Narrative: GENERAL: [Well-appearing, well-nourished, and in no acute distress.] HEAD: [Normocephalic, atraumatic.] EYES: [PERRLA and EOMI.] ENT: Nares clear, no rhinorrhea or epistaxis. Mucous membranes moist. NECK: Supple. CHEST: [Clear to auscultation. No respiratory distress.] HEART: [Regular rate and rhythm]. No murmur heard. Warm and well perfused extremities, palpable symmetric pulses in both arms. ABDOMEN: [Soft, nondistended], [nontender], [No rigidity or guarding] EXTREMITIES: Large lymphedema noted in bilateral lower extremities, nonpitting edema noted. SKIN: Warm, dry, no rash. NEURO: [No focal deficits]. Alert and oriented [x3.] PSYCH: [Normal mood and affect.] Course Vital Signs Vital signs: Vital Signs Temperature 36.4 C 03/21/24 00:44 Pulse Rate 76 03/21/24 00:44 Respiratory Rate 15 03/21/24 00:44 Blood Pressure 138/72 03/21/24 00:44 Pulse Oximetry 100 03/21/24 00:44 Oxygen Delivery Room Air 03/21/24 00:44 Temperature 36.4 C 03/21/24 00:44 Pulse Rate 67 03/21/24 07:43 Respiratory Rate 16 03/21/24 07:43 Blood Pressure 112/77 03/21/24 07:43 Pulse Oximetry 100 03/21/24 07:43 Oxygen Delivery Room Air 03/21/24 02:36 MDM - Chest Pain MDM Narrative Medical decision making narrative: 53-year-old female with complex medical history including history of significant DVT, PEs, status post IVC filter, on Xarelto. She has a history of liver disease potentially being cirrhosis, peptic ulcer disease, gastric bypass, hemorrhoids that required angio embolization on recent admission. Today she presents with some vague chest discomfort in the left side of her chest with no associated nausea, vomiting, difficulty in breathing. She otherwise appears well not any acute distress or discomfort. She is saturating well on room air without any fever, no tachycardia and, normal blood pressure, normal respiratory effort. She has clear breath sounds throughout both lungs. Strong symmetric pulses in both arms. Warm well-perfused extremities. She does have chronic lymphedematous bilateral lower extremities without any acute changes. Nonpitting edema noted. Overall she does appear very well. Considerations presently refer musculoskeletal chest pain, costochondritis, pneumonia, less likely ACS, PE given that she is already anticoagulated and has an IVC filter. No vital or hemodynamic instability, hypoxia or any other infectious concerns at this time. Cardiac workup was ordered including serial troponins, EKG, chest x- ray, CBC, CMP, lipase. She was given Pepcid Maalox for pain and re-evaluated frequently. Patient's workup shows no leukocytosis, hemoglobin 9.1 and stable from her baseline without any new bleeding concerns. Platelets within acceptable limits. Coag studies around her baseline. No significant elevations. Electrolytes within normal limits, normal renal function panel, normal glucose, normal hepatic function panel. Negative initial troponin. Negative lipase. Patient's chest x-ray was independently reviewed and also interpreted by Radiology. No acute cardiopulmonary process per stat read and my interpretation. Patient's repeat troponin is also negative. Given her stable vital signs, lack of any ischemic findings on her workup and overall well appearance presently believe she can be safely discharged at this time. Patient did inquire about her leg edema which is only slightly worsened from baseline and she was provided a bolus dose of Lasix prior to safe discharge home. Differential Diagnosis Differential diagnosis: Likely fracture of rib, pneumothorax, stable angina, unstable angina pectoris, atypical chest pain, costochondritis, chest pain, biliary colic and other Medical Records Data Attestation: I reviewed the patient's medical records. Lab Data Attestation: I reviewed the patient's lab results. 03/21/24 02:20 03/21/24 02:20 Labs: Lab Results 03/21/24 03/21/24 Range/Units 02:20 06:30 WBC 6.0 (4.5-10.0) K/mm3 RBC 3.32 L (4.2-5.4) M/mm3 Hgb 9.1 L (12.0-15.0) g/dL Hct 29.5 L (37.0-47.0) % MCV 88.9 (80-100) fl MCH 27.4 (26-34) pg MCHC 30.8 L (32-36) g/dl RDW 17.2 H (11.5-14.5) % Plt Count 237 D (150-375) k/mm3 MPV 11.0 H (7.4-10.4) fl Immature Gran % (Auto) 0.3 (0-0.5) % Neut % (Auto) 68.4 (45.5-73.1) % Lymph % (Auto) 14.3 L (18.3-44.2) % [place] % (Auto) 7.0 (2.6-8.5) % Eos % (Auto) 9.7 H (0-4.4) % Baso % (Auto) 0.3 (0.2-1.2) % Lymph # (Auto) 0.86 L (0.9-3.2) K/mm3 [place] # (Auto) 0.4 (0.1-0.6) K/mm3 Eos # (Auto) 0.6 H (0-0.3) K/mm3 Baso # (Auto) 0.0 (0.0-0.1) K/mm3 Abs Immat Gran (auto) 0.02 (0.00-0.031) K/mm3 Absolute Neuts (auto) 4.1 (1.3-6.7) K/mm3 Absolute Nucleated RBC 0.000 (0.0-0.012) K/mm3 Nucleated RBC % 0.0 (0.0-0.2) % PT 21.4 H (11.1-14.7) Seconds INR 1.8 APTT 46.8 H (22.3-36.8) Seconds Sodium 137 (137-145) mmol/L Potassium 3.5 (3.4-5.0) mmol/L Chloride 110 H (98-107) mmol/L Carbon Dioxide 23 (22-30) mmol/L Anion Gap 4 (4-12) mmol/L BUN 11 (7-17) mg/dL Creatinine 0.80 (0.7-1.0) mg/dL Estim Creat Clear Calc 100 ml/min Estimated GFR > 60 (59 - ) Glucose 82 (65-110) mg/dL Calcium 9.3 (8.4-10.2) mg/dL Total Bilirubin 0.5 (0.2-1.3) mg/dL AST 24 (14-36) U/L ALT 10 (6-35) U/L Alkaline Phosphatase 88 (38-126) U/L Troponin I < 0.012 < 0.012 (0.000-0.034) ng/mL Total Protein 6.0 L (6.3-8.2) g/dL Albumin 3.3 L (3.5-5.1) g/dL Lipase 54 (23-300) U/L Imaging Data Attestation: I personally reviewed and interpreted this imaging study as follows: My impression: No PTX, no PNA, no efussions Radiologist's impression: No acute process ECG Data EKG #1: Attestation: I personally reviewed and interpreted this ECG as follows: ECG completion date: 03/21/24 ECG completion time: 04:48 Prior ECG tracings: available for review Interpretation: No ST segment elevations, depressions or any new inversions. No ectopy, normal rate rhythm an axis, QTC 468, QRS 100, MN interval 199. Compared to previous EKG no acute interval changes. No signs of acute ischemia overall. Normal sinus rhythm. Discharge Plan Discharge Clinical Impression: Atypical chest pain, Lymphedema Patient Disposition: Home, Self-Care Condition: Stable Instructions: Antibiotic Form, Chest Pain (ED), Chest Wall Pain (ED) Additional Instructions: Your workup today was very reassuring, cardiac enzymes were normal, no pneumonia or effusions or any cause for concern your chest x-ray. Laboratory studies at your baseline. Please follow-up with your regular primary care provider on outpatient basis or return if you have any worsening or recurrent pain or any other new or concerning symptoms. Patient Language: Malay Prescriptions: No Action metoprolol succinate 25 mg Tablet Extended Release 24 Hr 25 mg PO DAILY omeprazole 40 mg capsule,delayed release(DR/EC) 40 mg PO DAILY ferrous sulfate 325 mg (65 mg iron) tablet 325 mg PO DAILY potassium chloride 10 mEq tablet extended release 10 meq PO DAILY famotidine 20 mg tablet 20 mg PO BID folic acid 1 mg Tablet 1 mg PO DAILY Qty: 30 0RF cyanocobalamin (vitamin B-12) 1,000 mcg/mL kit 100 mcg IM MONTHLY Qty: 5 0RF Rx Instructions: Receives on of every month clotrimazole-betamethasone 1-0.05 % cream 1 applic topical BID Qty: 45 0RF Rx Instructions: apply to BLE lisinopril 10 mg tablet 10 mg PO DAILY fluoxetine 10 mg capsule 10 mg PO DAILY hydroxyzine pamoate 25 mg capsule 25 mg PO TID PRN (Reason: Anxiety) Metamucil (with sugar) 3.4 gram Powder In Packet 1 ea PO BID Qty: 60 1RF Rx Instructions: 1 packet in 8 ounces of water 2x/day polyethylene glycol 3350 [Miralax] 17 gram Powder In Packet 17 g PO QAM Qty: 30 1RF cholecalciferol (vitamin D3) [Vitamin D3] 25 mcg (1,000 unit) Tablet 1,000 unit PO DAILY Qty: 30 1RF Xarelto 10 mg tablet 10 mg PO QPM Qty: 30 1RF Rx Instructions: START ON 03/05/24 hydrocodone-acetaminophen 5-325 mg tablet 1 tablet PO Q6H PRN (Reason: pain) Qty: 10 0RF Follow-up/Referrals: UNKNOWN,DOCTOR [Primary Care Provider] - Time of Disposition: 07:11 Quality HEART score for chest pain patients History: slightly suspicious ECG: normal Age: > 45 and < 65 years Risk factors: > or = to 3 risk factors of atherosclerotic disease Troponin: < or = to 1x normal limit Heart score: 3
[2024-03-21] MEDS: FAMOTIDINE 20 MG/2 ML VIAL IV PUSH (03:57)
[2024-03-21] MEDS: MAG HYDROX/AL HYDROX/SIMETH 30 ML UDC PO (03:57)
--- NOTE | 2024-03-21 04:18 | PC.NURSE ---
Pt states she still has 10/10 left sided chest pain and left shoulder pain, Dr. Roger notified. No new orders at this time. Pt in no signs of distress
[2024-03-21] MEDS: HYDROmorphone HCL INJ (*CRX) 1 MG/ML SYR 0.5 MG IV PUSH (04:26)
--- NOTE | 2024-03-21 04:43 | ECG_ITS ---
Test Date: 2024-03-21 04:48:44 Measurements Intervals [place] Rate: 66 P: 48 KS: 199 QRS: -15 QRSD: 100 T: -5 QT: 444 QTc: 468 Interpretive Statements SINUS RHYTHM LOW QRS VOLTAGE IN PRECORDIAL LEADS [QRS DEFLECTION < 1.0 mV IN CHEST LEADS] PATTERN CONSISTENT WITH PULMONARY DISEASE MODERATE VOLTAGE CRITERIA FOR LVH, CONSIDER NORMAL VARIANT [MEETS CRITERIA IN ONE OF: R(aVL), S(V1), R(V5), R(V5/V6)+S(V1)] Poor R wave progression Compared to ECG 03/21/2024 00:54:41 No significant changes Electronically Signed On 03-21-2024 12:58:09 [employer] by Saira Mao M.D.
--- NOTE | 2024-03-21 05:29 | PC.NURSE ---
This RN and Minesh RN attemtped multiple times to obtain troponin which were all unsuccessful. Charge nurse Mayra and Dr. Acacia valle. Phlebotomy called by Mayra who states lab said they would be down to draw pt when they could
[2024-03-21 06:58] LABS: Troponin I < 0.012 ng/mL (0.000-0.034)
[2024-03-21] MEDS: FUROSEMIDE INJ 40 MG/4 ML VIAL IV PUSH (07:24)
--- NOTE | 2024-03-21 07:27 | PC.NURSE ---
Pts blood pressure 103/74. EDP Dr. Roger states 40mg of Lasix OK to administer, to monitor pt and allow her to urinate before discharge.
--- OUTSIDE RECORDS SUMMARY | 2024-03-24 18:51 | XMS_ITS | Encounter Summary ---
Author Organization [facility] Address [address] [facility] [place] [address] Care Team Providers Care Flyer Repairer Name Role Phone Unavailable Primary Care Provider Unavailabl e Reason for Visit * Reason Comments Dizziness patient complaining of dizziness Pain Head patient complaining of left face pain after fall [place], the patient was intoxicated and as the metro link began moving she fell into the door hitting her face Lower Extremity Problem pain to right le g and right hip Encounter Details Date Type Department Care Team (Late st Contact Info) Description 04/03/2018 3:27 AM QUANTITATIVE RESEARCH ANALYST - 04/03/2018 8:31 AM QUANTITATIVE RESEARCH ANALYST Emergency ER at [address] [address] Waldemar Marshall DO [address] [place] [address] [place] [address] Redd Thornton MD Need Info Fall, initial encounter; History of nursing home anticoagulant use; Right leg pain; Chronic alcohol use Discharge Disposition: Home or Self Care Social History Tobacco Use Types Packs/Day Years Used Date Smoking Tobacco: Never Smokeless Tobacco: Never Alcohol Use Standard Drinks/Week Comments Yes 10 (1 standard drink = 0.6 oz pu re alcohol) bottle of wine daily Sex and Gender Information Value Date Recorded Sex Assigned at Female 03/18/2023 5:31 PM QUANTITATIVE RESEARCH ANALYST Gender Identity Female 03/18/2023 5:31 PM QUANTITATIVE RESEARCH ANALYST Sexual Orientation Straight 03/18/2023 5: 31 PM QUANTITATIVE RESEARCH ANALYST documented as of 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 Last Filed Vital Signs Vital Sign Reading Time Taken Comments Blood Pressure 159/64 04/03/2018 8:13 AM QUANTITATIVE RESEARCH ANALYST Pulse 80 04/03/2018 8:13 AM QUANTITATIVE RESEARCH ANALYST Temperature 36.8 ??C (98.2 ??F) 04/03/2018 8:13 AM CS T Respiratory Rate 15 04/03/2018 8:13 AM QUANTITATIVE RESEARCH ANALYST Oxygen Saturation 100% 04/03/2018 8:13 AM QUANTITATIVE RESEARCH ANALYST Inhaled Oxygen Concentration - - Weight 142.9 kg (315 lb) 04/02/2018 8:08 PM QUANTITATIVE RESEARCH ANALYST Height 170.2 cm (5' 7 ) 04/02/2018 8:08 PM QUANTITATIVE RESEARCH ANALYST Body Mass Index 49.34 04/02/2018 8:08 PM QUANTITATIVE RESEARCH ANALYST documented in 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 Functional Status Functional Status Response Date of Assess ment Is person deaf or have serious hearing difficult y? No 03/17/2018 Is person blind or have serious difficulty seein g? Yes 03/17/2018 Does person have serious dif ficulty walking/climbing stairs? Yes 03/17/2018 Does person have difficulty dressing/bathing? Ye s 03/17/2018 Does person have difficulty doing errands alone? Yes 03/17/2018 Cognitive Status Response Date of Assessm ent Does person have difficulty concentrating/remembering/making decisions? Yes 03/17/2018 documented as of 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 Discharge Instructions * Discharge Instructions* Waldemar Marshall, - 04/03/2018 5:45 AM QUANTITATIVE RESEARCH ANALYST Musculoskeletal Pain WHAT YOU NEED TO KNOW: Muscle pain can be dull, achy, or sharp. You may have pain and tenderness to the touch as well. It can occur anywhere on your body and is often brought on by exercise. Muscle pain may occur from an injury, such as a sprain, tendonitis, or bone fracture. Muscle pain can also be the result of medicalconditions, such as polymyositis, fibromyalgia, and connective tissue disorders. DISCHARGE INSTRUCTIONS: Self care: ?? Rest as directed and avoid activity that causes pain. You may be able to return to normal activity when you can move without pain. Follow directions for rest and activity. You are at risk for injury for 3 weeks after your symptoms go away. ?? Ice your painful muscle area to decrease pain and swelling. Use an ice pack, or put ice in a plastic bag and cover it with a towel. Always put a cloth between the ice and your skin. Apply the ice as often as directed for the first 24 to 48 hours. ?? Compression with a splint, brace, or elastic bandage helps decrease pain and swelling. This may be needed for muscle pain in arms or legs. A splint, brace, or bandage will also help protect the painful area when you move around. ?? Elevate a painful arm or leg to reduce swelling and pain. Elevate your limb while you are sitting or lying down. Prop a painful leg on pillows to keep it above the level of your heart. Medicines: ?? NSAIDs help decrease swelling and pain or fever. This medicine is available with or without a doctor's order. NSAIDs can cause stomach bleeding or kidney problems in certain people. If you take blood thinner medicine, always ask your healthcare provider if NSAIDs are safe for you. Always read the medicine label and follow directions. ?? Acetaminophen is used to decrease pain. It is available without a doctor's order. Ask your healthcare provider how much to take and when to take it. Follow directions. Acetaminophen can cause liver damage if not taken correctly. Do not take more than one medicine that contains acetaminophen unless directed. ?? Muscle relaxers help relax your muscles to decrease pain and muscle spasms. ?? Steroids may be given to decrease redness, pain, and swelling. ?? Take your medicine as directed. Contact your healthcare provider if you think your medicine is not helping or if you have side effects. Tell him if you are allergic to any medicine. Keep a list ofthe medicines, vitamins, and herbs you take. Include the amounts, and when and why you take them. Bring the list or the pill bottles to follow-up visits. Carry your medicine list with you in case of a n emergency. Follow up with your healthcare provider as directed: You may need more tests to help healthcare providers find the cause of your muscle pain. You may need physical therapy to learn muscle strengthening exercises. Write down your questions so you remember to ask them during your visits. Contact your healthcare provider if: ?? You have a fever. ?? You have trouble sleeping because of your pain. ?? Your painful area becomes more tender, red, and warm to the touch. ?? You have decreased movement of the painful area. ?? You have questions or concerns about your condition or care. Return to the emergency department if: ?? You have increased severe pain when you move the painful muscle area. ?? You lose feeling in your painful muscle area. ?? You have new or worse swelling in the painful area. Your skin may feel tight. ?? You have increased muscle pain or pain that does not improve with treatment. ?? Copyright [employer] 2017 Information is for End User's use only and may not be sold, redistributed or otherwise used for commercial purposes. All illustrations and images included in CareNotes?? are the copyrighted property of [employer]. or [employer] The above information is an educational adviser only. It is not intended as medical advice for individual conditions or treatments. Talk to your doctor, nurse or pharmacist before following any medical regimen to see if it is safe and effective for you. TITATIVE RESEARCH ANALYST documented in 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 Medications at Time of Discharge Medication Sig Dispensed Refills Start Date End Date FLUoxetine (PROZAC) 20 MG capsuleIndications:Depress ion Take 1 capsule by mouth once daily Reasons: Depression 30 capsule 1 03/17/2018 03/07/2023 folic acid (FOLVITE) 1 MG tabletIndications:alcohol related problems Take 1 tablet by mouth once daily Reasons: alcohol related problems 30 tablet 1 03/17/2018 03/07/2023 hydrOXYzine hcl (ATARAX) 25 MG tabletIndications:Anxiety Take 1 tablet by mouth 3 times daily as needed Reasons: Feeling Anxious 30 tablet 1 03/17/2018 03/07/2023 losartan - hydroCHLOROthiazide (HYZAAR) 50-12.5 MG tabletIndications:Hyperten theodora Take 1 (one) tablet by mouth once daily Reasons: High Blood Pressure Disorder 03/07/2023 melatonin 5 MG tabletIndications:Insomnia Take 1 tablet by mouth at bedtime Reasons: Trouble Sleeping 30 tablet 1 03/17/2018 03/07/2023 naltrexone (REVIA) 50 MG tabletIndications:Alcoholi sm Take 1 tablet by mouth once daily Reasons: Excessive Use of Alcohol 30 tablet 1 03/18/2018 03/07/2023 naproxen (NAPROSYN) 500 MG tablet Take 1 tablet by mouth 2 times daily as needed for Pain 20 tablet 04/03/2018 03/07/2023 thiamine 100 MGIndications:alcohol related problems Take 1 tablet by mouth once daily Reasons: alcohol related problems 30 tablet 1 03/17/2018 03/07/2023 documented as of 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 ED Notes * Troy Sherman RN - 04/03/2018 8:23 AM CST Went over discharge instructions and prescriptions with patient, states understanding. Denies any further questions or concerns. No acute signs of distress noted. Vital signs per flow sheet. Patient ambulated out of ED with no signs or symptoms of distress with a steady gait. Pt A&O x4. TITATIVE RESEARCH ANALYST * Troy Sherman RN - 04/03/2018 7:37 AM CST Transportation arranged with [facility] to return home. ETA is no later than 0930, dc confirmation #[id number] TITATIVE RESEARCH ANALYST * Troy Sherman RN - 04/03/2018 7:15 AM CST Pt requesting pain medication. Dr. Marshall aware- orders received. See MAR. TITATIVE RESEARCH ANALYST * Td Gan RN - 04/03/2018 7:11 AM CST Report given to GEOVANY Simmons. All questions answered. TITATIVE RESEARCH ANALYST * Lisa Aguilar RN - 04/03/2018 6:38 AM CST Pt provided with [employer] meal, jello, and water. Pt denies further needs at this time. Pt also consuming chips and sunflower seeds. Pt appears to be tolerating PO food/fluids well. Respirations even and unlabored, appears NAD HANIA * Td Gan RN - 04/03/2018 5:06 AM CST Pt resting on stretcher with call light in reach. Fluids infusing. Provided phone per request. Siderails up x2 with bed locked in lowest position. Will continue to monitor. TITATIVE RESEARCH ANALYST * Td Gan RN - 04/03/2018 4:45 AM CST Pt to radiology via stretcher TITATIVE RESEARCH ANALYST * Lisa Aguilar RN - 04/03/2018 4:12 AM CST Pt to CT via stretcher TITATIVE RESEARCH ANALYST * Td Gan RN - 04/03/2018 4:10 AM CST Pt to CT via stretcher TITATIVE RESEARCH ANALYST * Rachelle Elias RT(R) - 04/03/2018 4:10 AM CST Xray needs an hcg and patient placed in a gown please - thank you! HANIA * Td Gan RN - 04/03/2018 4:02 AM CST Pt presents to ED for evaluation after fall that occurred at approx 1500 yesterday. Pt sts she was [place] the [employer] and [place] partition [place] [employer] when [place]. Pt sts she struck the back of her head on the glass, knocking the glass out, but the glassdid not break. Pt sts she may have passed out , she is unsure for how long. Bystanders assisted her to standing. Pt reports pain to her posterior head, neck, R hip, and bilateral knees. Pt admits toalcohol use prior to fall, sts she drank a few small bottles of wine and typically drinks this daily. 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 Pt is alert and oriented x 3, calm, cooperative, in NAD. Ambulatory with steady gait. Moves all extremities without focal deficit. No bruising or open wounds noted. TITATIVE RESEARCH ANALYST * Td Gan RN - 04/03/2018 4:01 AM CST Pt ambulatory to restroom with steady gait. Sanitary napkins were provided per request. HANIA * Lisa Aguilar RN - 04/03/2018 3:[address] Marshall at bedside TITATIVE RESEARCH ANALYST * Waldemar Marshall DO - 04/03/2018 3:49 AM CST Provider contact with the patient: 04/03/2018 03:49 Tiarra HAN [id number] [facility] EMERGENCY DEPARTMENT History Chief Complaint Patient presents with ??? Dizziness patient complaining of dizziness ??? Pain Head patient complaining of left face pain after fall on [employer] the patient was intoxicated and as the metro link began moving she fell into the door hitting her face ??? Lower Extremity Problem pain to right leg and right hip Chief complaint narrative was entered by triage nurse, not by physician. HPI 3:50 AM Tiarra HAN, a 47 y.o. female with a past medical history that includes--major depression, adjustment disorder, cocaine dependence, alcohol dependence--presents to the ER c/o dizziness, L face pain, R hip, and R leg pain after fall. Pt was [place] and fell when the train began to move. Notes LOC after fall. No other complaints or modifying factors at this time. PCP: No primary care provider on file. No past medical history on file. No past surgical history on file. No family history on file. Social History Social History ??? Marital status: Spouse name: N/A ??? Number of children: N/A ??? Years of education: N/A Occupational History ??? Not on file. Social History Main Topics ??? Smoking status: Never Smoker ??? Smokeless tobacco: Never Used ??? Alcohol use 6.0 oz/week 10 Shots of liquor per week Comment: bottle of wine daily ??? Drug use: Yes Special: Marijuana, Cocaine Comment: daily ??? Sexual activity: Not on file Other Topics Concern ??? Not on file Social History Narrative No Known Allergies Review of Systems Review of Systems Constitutional: Negative for chills and fever. HENT: Negative for congestion. Eyes: Negative for discharge and redness. Respiratory: Negative for cough, shortness of breath, wheezing and stridor. Cardiovascular: Negative for chest pain, palpitations and orthopnea. Gastrointestinal: Negative for abdominal pain, nausea and vomiting. Genitourinary: Negative for dysuria and frequency. Musculoskeletal: Positive for falls, joint pain and myalgias. Negative for back pain and neck pain. Skin: Negative for rash. Neurological: Positive for dizziness, loss of consciousness and headaches. Negative for tremors andweakness. All other systems reviewed and are negative. Physical Exam BP 124/72 Pulse 75 Temp 97.6 ??F (36.4 ??C) Resp 18 Ht 1.702 m (5' 7 ) Wt (!) 142.9 kg (315 lb) SpO2 100% BMI 49.34 kg/m2 Physical Exam Constitutional: She is oriented to person, place, and time. She appears well- developed and well-nourished. Morbidly obese HENT: Head: Normocephalic and atraumatic. Right Ear: External ear normal. Left Ear: External ear normal. Nose: Nose normal. Mouth/Throat: Oropharynx is clear and moist. Eyes: Conjunctivae and EOM are normal. Right eye exhibits no discharge. Left eye exhibits no discharge. Neck: No tracheal deviation present. Cardiovascular: Normal rate, regular rhythm and normal heart sounds. Exam reveals no friction rub. No murmur heard. Pulmonary/Chest: Effort normal and breath sounds normal. No stridor. No respiratory distress. She has no wheezes. She has no rales. Abdominal: Soft. Bowel sounds are normal. She exhibits no distension. There is no tenderness. Thereis no rebound and no guarding. Musculoskeletal: Normal range of motion. She exhibits no deformity. No obvious deformity to the R knee or R hip Neurological: She is alert and oriented to person, place, and time. Coordination normal. Skin: Skin is warm and dry. No rash noted. Nursing note and vitals reviewed. Medications Current Outpatient Prescriptions Medication Sig Dispense Refill ??? naproxen (NAPROSYN) 500 MG tablet Take 1 tablet by mouth 2 times daily as needed for Pain 20 tablet 0 ??? naltrexone (REVIA) 50 MG tablet Take 1 tablet by mouth once daily Reasons: Excessive Use of Alcohol 30 tablet 1 ??? hydrOXYzine hcl (ATARAX) 25 MG tablet Take 1 tablet by mouth 3 times daily as needed Reasons: Feeling Anxious 30 tablet 1 ??? FLUoxetine (PROZAC) 20 MG capsule Take 1 capsule by mouth once daily Reasons: Depression 30 capsule 1 ??? folic acid (FOLVITE) 1 MG tablet Take 1 tablet by mouth once daily Reasons: alcohol related problems 30 tablet 1 ??? melatonin 5 MG tablet Take 1 tablet by mouth at bedtime Reasons: Trouble Sleeping 30 tablet 1 ??? thiamine 100 MG Take 1 tablet by mouth once daily Reasons: alcohol related problems 30 tablet 1 ??? losartan - hydroCHLOROthiazide (HYZAAR) 50-12.5 MG tablet Take 1 tablet by mouth once daily Reasons: High Blood Pressure Disorder Procedures Procedures ECG Interpretation ECG Interpretation Lab Interpretation Oxygen Saturation Interpretation The oxygen saturation level is: 100%. The patient was on Room Air for the saturation measurement. Measurement frequency: Spot Check. Oxygen saturation interpretation is Normal. Intervention(s) used: None. Hospital Encounter on 04/03/18 CBC W AUTO DIFFERENTIAL Result Value Ref Range WBC 7.0 4.4 - 10.7 x10E9/L WBC Corrected x10E9/L RBC 3.95 3.80 - 5.20 x10E12/L Hemoglobin 8.4 (L) 12.0 - 15.6 gm/dL Hematocrit 29.8 (L) 35.9 - 45.5 % MCV 75.4 (L) 80.7 - 98.3 fl MCH 21.3 (L) 26.7 - 34.0 pg MCHC 28.2 (L) 30.8 - 35.9 gm/dL Platelet Count 318 153 - 416 x10E9/L RDW-CV 18.3 (H) 12.1 - 14.9 % MPV 9.4 9.4 - 12.9 fl Neutrophils % 66.4 44.0 - 73.0 % Lymphocytes % 20.7 20.0 - 43.0 % Monocytes % 8.0 5.0 - 13.0 % Eosinophils % 3.9 0.0 - 6.0 % Basophils % 0.7 0.0 - 2.0 % Immature Granulocytes 0.3 0 - 1 % Neutrophil Absolute 4.66 2.01 - 7.14 x10E9/L Lymphocytes Absolute 1.45 1.07 - 3.94 x10E9/L Monocytes Absolute 0.56 0.26 - 1.07 x10E9/L Eosinophils Absolute 0.27 0 - 0.47 x10E9/L Basophils Absolute 0.05 0 - 0.08 x10E9/L Immature Granulocytes Absolute 0.02 0.00 - 0.06 x10E9/L nRBC Auto 0 /100 WBC PT PTT PANEL Result Value Ref Range PT 11.0 9.5 - 11.6 sec INR 1.0 0.9 - 1.1 PTT 21.2 21.0 - 32.0 sec COMPREHENSIVE METABOLIC PANEL Result Value Ref Range Glucose 78 74 - 106 mg/dL Sodium 138 136 - 145 mmol/L Potassium 3.9 3.5 - 5.1 mmol/L Chloride 107 98 - 107 mmol/L CO2 21 (L) 22 - 31 mmol/L Calcium 8.5 8.5 - 10.1 mg/dL Anion Gap 10 8 - 16 mmol/L BUN 20 7 - 21 mg/dL Creatinine 0.86 0.50 - 1.30 mg/dL Alkaline Phosphatase 112 38 - 126 U/L ALT 22 13 - 61 U/L AST 28 5 - 40 U/L Protein Total 8.1 6.4 - 8.2 gm/dL Albumin 3.4 3.4 - 5.0 gm/dL Bilirubin Total 0.4 0.2 - 1.0 mg/dL eGFR by MDRD >60 >60 mL/min/1.73m2 eGFR by MDRD >60 >60 mL/min/1.73m2 DRUG SCREEN TOX LIMITED BLD PNL 3 INHOUSE Result Value Ref Range Acetaminophen <2.0 (L) 10.0 - 30.0 ug/mL Ethanol 107 (H) <10 mg/dL Salicylate <1.7 <20.0 mg/dL HCG BLOOD QUALITATIVE Result Value Ref Range HCG Qual Serum Negative Negative CT HEAD NON CONTRAST (Results Pending) CT CERVICAL SPINE NON CONTRAST (Results Pending) XR PELVIS W RIGHT HIP 2VW (Results Pending) XR KNEE 4+ VW RIGHT (Results Pending) Progress Notes 4:06 AM I watched the pt ambulate back from the bathroom. 5:28 AM No acute fractures in the pelvis, hip, or knee. 5:29 AM I had a formal disposition interview with the patient to discuss the ED visit including all diagnostic studies, results, and the disposition plan of discharge. Instructed patient to follow up with providers listed below for further outpatient management. Discussed return precautions. All questions and concerns were addressed at this time. The pt agrees with plan and is comfortable with discharge at this time. New Medications: New Prescriptions NAPROXEN (NAPROSYN) 500 MG TABLET Take 1 tablet by mouth 2 times daily as needed for Pain I have advised the patient to follow-up with: Primary Care Physician In 1 week [facility] Emergency Department [address] [place] [id number] ED Course Presents with mechanical fall [place]; hitting head with brief LOC. Reports on eliquis for prior DVT/PE. CT head/c-spine negative for traumatic injury. Review radiographs negative. Tx symptomatically. Instructed to follow up with PCP. RTER if symptoms worsen. ED Course Medical Decision Making I have reviewed the: Previous Chart, Nursing Notes, Vitals. I have interpreted the following results: Labs, X-Ray, CT Scans and Oxygen Saturation. Orders Placed This Encounter ??? CT HEAD NON CONTRAST ??? CT CERVICAL SPINE NON CONTRAST ??? XR PELVIS W RIGHT HIP 2VW ??? XR KNEE 4+ VW RIGHT ??? CBC W AUTO DIFFERENTIAL ??? PT PTT PANEL ??? COMPREHENSIVE METABOLIC PANEL ??? DRUG SCREEN TOX LIMITED BLD PNL 3 INHOUSE ??? HCG BLOOD QUALITATIVE ??? morphine injection 4 mg ??? dextrose 5 % and 0.9% nacl 1,000 mL with M.V.I. (MVI adult) 10 mL, thiamine (VITAMIN B-1) 100 mg infusion ??? naproxen (NAPROSYN) 500 MG tablet Clinical Impression Final diagnoses: Fall, initial encounter History of nursing home anticoagulant use Right leg pain Chronic alcohol use Disposition: Discharge Scribe Signature and Attestation By signing my name below, I, Stephanie Braun, attest that this documentation has been prepared under the direction and in the presence of Dr. Marshall. Electronically Signed: Aziza Valverde. 04/03/2018. Time 6:51 AM Provider Signature and Attestation I, Dr. Waldemar Marshall, personally performed the services described in this documentation. All medical record entries made by the scribe were at my direction and in my presence. I have reviewed the chart and agree that the record reflects my personal performance and is accurate and complete. 04/03/2018.Time 6:51 AM TITATIVE RESEARCH ANALYST * Kerry Del Cid - 04/03/2018 12:57 AM CST VS DONE @ 0057 TITATIVE RESEARCH ANALYST documented in 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 Plan of Treatment Not on file documented as of 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 Procedures Procedure Name Priority Date/Time Associated Diagnosis Comments XR PELVIS W RIGHT HIP 2VW STAT 04/03/2018 5:05 AM QUANTITATIVE RESEARCH ANALYST Fall, initial encounter XR KNEE RIGHT 4VW OR MORE STAT 04/03/2018 5:05 AM QUANTITATIVE RESEARCH ANALYST Fall, initial encounter CT CERVICAL SPINE WO CONTRAST STAT 04/03/2018 4:33 AM QUANTITATIVE RESEARCH ANALYST Fall, initial encounter CT HEAD WO CONTRAST STAT 04/03/2018 4 :33 AM QUANTITATIVE RESEARCH ANALYST Fall, initial encounter DRUG SCREEN TOX LIMITED BLD PNL 3 INHOUSE STAT 04/03/2018 4:09 AM QUANTITATIVE RESEARCH ANALYST PT PTT PANEL STAT 04/03/2018 4:09 AM QUANTITATIVE RESEARCH ANALYST CBC W AUTO DIFFERENTIAL STAT 04/03/2018 4:09 AM QUANTITATIVE RESEARCH ANALYST COMPREHENSIVE METABOLIC PANEL STAT 04/03/2018 4:09 AM QUANTITATIVE RESEARCH ANALYST HCG BLOOD QUALITATIVE Add on 04/03/2018 4:09 AM QUANTITATIVE RESEARCH ANALYST documented in 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 Results * XR PELVIS W RIGHT HIP 2VW (04/03/2018 5:05 AM QUANTITATIVE RESEARCH ANALYST) Anatomical Region Laterality Modality Radiographic Alexsandra ging 04/03/2018 8:22 AM QUANTITATIVE RESEARCH ANALYST Impressions 04/03/2018 8:22 AM QUANTITATIVE RESEARCH ANALYST No fracture. Reading Radiologist: Katt Kumar MD on 04/03/2018 at 8:22 AM Narrative 04/03/2018 8:22 AM QUANTITATIVE RESEARCH ANALYST Pelvis AP one view right hip 2 views INDICATION: Fall, pelvic pain hip pain AP view of the pelvis, 2 views of the right hip are provided. There is no acute fracture. Both hips are located. Mineralization is within normal limits. Tubal ligation clips are noted. Procedure Note Katt Kumar MD - 04/03/2018 Pelvis AP one view right hip 2 views INDICATION: Fall, pelvic pain hip pain AP view of the pelvis, 2 views of the right hip are provided. There is no acute fracture. Both hips are located. Mineralization is within normal limits. Tubal ligation clips are noted. IMPRESSION No fracture. Reading Radiologist: Katt Kumar MD on 04/03/2018 at 8:22 AM Waldemar Marshall DO DIAGNOSTIC IMAGING O RDERABLES * XR KNEE 4+ VW RIGHT (04/03/2018 5:05 AM QUANTITATIVE RESEARCH ANALYST) Anatomical Region Laterality Modality Lower Extremity Radiographic Alexsandra ging 04/03/2018 7:44 AM QUANTITATIVE RESEARCH ANALYST Impressions 04/03/2018 7:45 AM QUANTITATIVE RESEARCH ANALYST Degenerative change. Small effusion. Reading Radiologist: Katt Kumar MD on 04/03/2018 at 7:45 AM Narrative 04/03/2018 7:45 AM QUANTITATIVE RESEARCH ANALYST Right knee 4 views complete INDICATION: Right knee pain 4 views of the right knee show severe degenerative change. There is no fracture. There is an effusion present. Small degenerative corticated calcifications are seen in the posterior aspect of the joint and anterior to the patella. Procedure Note Katt Kumar MD - 04/03/2018 Right knee 4 views complete INDICATION: Right knee pain 4 views of the right knee show severe degenerative change. There is no fracture. There is an effusion present. Small degenerative corticated calcifications are seen in the posterior aspect of the joint and anterior to the patella. IMPRESSION Degenerative change. Small effusion. Reading Radiologist: Katt Kumar MD on 04/03/2018 at 7:45 AM Waldemar Joanna DO DIAGNOSTIC IMAGING O RDERABLES * CT CERVICAL SPINE NON CONTRAST (04/03/2018 4:33 AM QUANTITATIVE RESEARCH ANALYST) Anatomical Region Laterality Modality Spine Computed Tomogra phy 04/03/2018 7:50 AM QUANTITATIVE RESEARCH ANALYST Impressions 04/03/2018 8:50 AM QUANTITATIVE RESEARCH ANALYST No fracture. Edited by Judith Brumfield on 04/03/2018 8:05 AM Reading Radiologist: Katt Kumar MD on 04/03/2018 at 8:50 AM Narrative 04/03/2018 8:[address]ITATIVE RESEARCH ANALYST CT CERVICAL SPINE WITHOUT IV CONTRAST INDICATION: Trauma, headache, neck pain. TECHNIQUE: Thin section helical CT images of the cervical spine are obtained in a bone algorithm without IV contrast. From this data, sagittal and coronal reformatted images are performed. FINDINGS: There is straightening of the cervical lordosis. Alignment is otherwise unremarkable. No fracture is seen. Small lymph nodes are scattered throughout the spaces of the neck. Scans of the lung apices are unremarkable. Procedure Note Katt Kumar MD - 04/03/2018 CT CERVICAL SPINE WITHOUT IV CONTRAST INDICATION: Trauma, headache, neck pain. TECHNIQUE: Thin section helical CT images of the cervical spine are obtained in a bone algorithm without IV contrast. From this data, sagittal and coronal reformatted images are performed. FINDINGS: There is straightening of the cervical lordosis. Alignment is otherwise unremarkable. No fracture is seen. Small lymph nodes are scattered throughout the spaces of the neck. Scans of the lung apices are unremarkable. IMPRESSION No fracture. Edited by Judith Brumfield on 04/03/2018 8:05 AM Reading Radiologist: Katt Kumar MD on 04/03/2018 at 8:50 AM Waldemar Joanna DO CT ORDERABLES * CT HEAD NON CONTRAST (04/03/2018 4:33 AM QUANTITATIVE RESEARCH ANALYST) Anatomical Region Laterality Modality Head Computed Tomogra phy 04/03/2018 7:46 AM QUANTITATIVE RESEARCH ANALYST Impressions 04/03/2018 7:47 AM QUANTITATIVE RESEARCH ANALYST Unremarkable unenhanced CT scan of the brain. Reading Radiologist: Katt Kumar MD on 04/03/2018 at 7:47 AM Narrative 04/03/2018 7:47 AM QUANTITATIVE RESEARCH ANALYST CT Head Noncontrast Indication: Severe head pain, trauma Technique: CT images of the brain were obtained at 5 mm intervals without contrast. Preliminary report was provided by [facility]. Findings: There is no radiographic evidence of intracranial hemorrhage. There is no mass-effect or midline shift. Ventricles and sulci are of normal size. The visualized paranasal sinuses are clear. Procedure Note Katt Kumar MD - 04/03/2018 CT Head Noncontrast Indication: Severe head pain, trauma Technique: CT images of the brain were obtained at 5 mm intervals without contrast. Preliminary report was provided by [facility]. Findings: There is no radiographic evidence of intracranial hemorrhage. There is no mass-effect or midline shift. Ventricles and sulci are of normal size. The visualized paranasal sinuses are clear. IMPRESSION Unremarkable unenhanced CT scan of the brain. Reading Radiologist: Katt Kumar MD on 04/03/2018 at 7:47 AM Waldemar Marshall DO CT ORDERABLES * HCG BLOOD QUALITATIVE (04/03/2018 4:09 AM QUANTITATIVE RESEARCH ANALYST) HCG Qual Serum Negative Negative 04/03/2018 4:34 AM QUANTITATIVE RESEARCH ANALYST [facility] Blood BLOOD SPECIMEN / Unknown Venipuncture / Unknown 04/03/2018 4:09 AM QUANTITATIVE RESEARCH ANALYST 04/03/2018 4:13 AM QUANTITATIVE RESEARCH ANALYST Waldemar Marshall DO LAB - CHEMISTRY ANNETTE ENGLISH [facility] [address] [place] [address] * (ABNORMAL) DRUG SCREEN TOX LIMITED BLD PNL 3 INHOUSE (04/03/2018 4:09 AM QUANTITATIVE RESEARCH ANALYST) Acetaminophen <2.0(L) 10.0 - 30.0 ug/mL 04/03/2018 4:33 AM [facility] Ethanol 107(H) <10 mg/dL 04/03/2018 4:33 AM [facility] Salicylate <1.7 <20.0 mg/dL 04/03/2018 4:33 AM [facility] Blood BLOOD SPECIMEN / Unknown Venipuncture / Unknown 04/03/2018 4:09 AM QUANTITATIVE RESEARCH ANALYST 04/03/2018 4:13 AM [facility] Narrative [facility] - 04/03/2018 4:33 AM [facility] SS ACETAMINOPHEN COMMENT Critical values: 4 Hours Post Ingestion: Critical value ?? > 200 ??g/mL 12 Hours Post Ingestion: Critical value ??> ??50 ??g/mL For acute ingestion, please refer to Acetaminophen nomogram to determine the ??risk of toxicity ??based on time since ingestion and acetaminophen level (see link provided). Note the nomogram disclaimer. WARNING: Assessing the potential toxicity of an acetaminophen level on a standard risk nomogram must take into consideration many factors including any uncertainty of the time since ingestion or the possibility of other medications that may alter the peak level. Contact the [facility] at or reserved for healthcare professionals to assist you in evaluating potentially toxic acetaminophen levels. Waldemar Marshall DO LAB - CHEMISTRY ANNETTE ENGLISH [facility] [address] [place] [address] * (ABNORMAL) COMPREHENSIVE METABOLIC PANEL (04/03/2018 4:09 AM [facility]) Pathologist [facility] Glucose 78 74 - 106 mg/dL 04/03/2018 4:36 AM [facility] Sodium 138 136 - 145 mmol/L 04/03/2018 4:36 AM [facility] Potassium 3.9 3.5 - 5.1 mmol/L 04/03/2018 4:36 AM [facility] Chloride 107 98 - 107 mmol/L 04/03/2018 4:36 AM [facility] CO2 21(L) 22 - 31 mmol/L 04/03/2018 4:36 AM [facility] Calcium 8.5 8.5 - 10.1 mg/dL 04/03/2018 4:36 AM [facility] Anion Gap 10 8 - 16 mmol/L 04/03/2018 4:36 AM [facility] BUN 20 7 - 21 mg/dL 04/03/2018 4:36 AM [facility] Creatinine 0.86 0.50 - 1.30 mg/dL 04/03/2018 4:36 AM [facility] Alkaline Phosphatase 112 38 - 126 U/L 04/03/2018 4:36 AM [facility] ALT 22 13 - 61 U/L 04/03/2018 4:36 AM [facility] AST 28 5 - 40 U/L 04/03/2018 4:36 AM [facility] Protein Total 8.1 6.4 - 8.2 gm/dL 04/03/2018 4:36 AM [facility] Albumin 3.4 3.4 - 5.0 gm/dL 04/03/2018 4:36 AM [facility] Bilirubin Total 0.4 0.2 - 1.0 mg/dL 04/03/2018 4:36 AM [facility] eGFR by MDRD >60 >60 mL/min/1.7 3m2 04/03/2018 4:36 AM [facility] eGFR by MDRD >60 >60 mL/min/1.7 3m2 04/03/2018 4:36 AM [facility] Blood BLOOD SPECIMEN / Unknown Venipuncture / Unknown 04/03/2018 4:09 AM [facility] 04/03/2018 4:13 AM [facility] Waldemar Marshall DO LAB - CHEMISTRY ANNETTE EN[place]ISH [facility] [address] [place] [address] * PT PTT PANEL (04/03/2018 4:09 AM [facility]) PT 11.0 9.5 - 11.6 sec 04/03/2018 4:28 AM [facility] INR 1.0 0.9 - 1.1 04/03/2018 4:28 AM [facility] PTT 21.2 21.0 - 32.0 sec 04/03/2018 4:28 AM [facility] Blood BLOOD SPECIMEN / Unknown Venipuncture / Unknown 04/03/2018 4:09 AM QUANTITATIVE RESEARCH ANALYST 04/03/2018 4:13 AM [facility] - 04/03/2018 4:28 AM QUANTITATIVE RESEARCH ANALYST Conventional Warfarin Anticoagulant Therapy: INR Reference Range: ??2.0-3.0 Intensive Warfarin Anticoagulant Therapy: INR Reference Range: ? 2.5-3.5 Heparin Therapeutic Range for PTT: 47.7 - 68.6 seconds. Waldemar Joanna PAULA LAB - COAGULATION OR DERABLES [facility] [address] [place] [address] * (ABNORMAL) CBC W AUTO DIFFERENTIAL (04/03/2018 4:09 AM [facility]) WBC 7.0 4.4 - 10.7 x10E9/L 04/03/2018 4:22 AM [facility] WBC Corrected x10E9/L 04/03/2018 4:22 AM [facility] RBC 3.95 3.80 - 5.20 x10E12/L 04/03/2018 4:22 AM [facility] Hemoglobin 8.4(L) 12.0 - 15.6 gm/dL 04/03/2018 4:22 AM [facility] Hematocrit 29.8(L) 35.9 - 45.5 % 04/03/2018 4:22 AM [facility] MCV 75.4(L) 80.7 - 98.3 fl 04/03/2018 4:22 AM [facility] MCH 21.3(L) 26.7 - 34.0 pg 04/03/2018 4:22 AM [facility] MCHC 28.2(L) 30.8 - 35.9 gm/dL 04/03/2018 4:22 AM [facility] Platelet Count 318 153 - 416 x10E9/L 04/03/2018 4:22 AM [facility] RDW-CV 18.3(H) 12.1 - 14.9 % 04/03/2018 4:22 AM [facility] MPV 9.4 9.4 - 12.9 fl 04/03/2018 4:22 AM QUANTITATIVE RESEARCH ANALYST [facility] Neutrophils % 66.4 44.0 - 73.0 % 04/03/2018 4:22 AM QUANTITATIVE RESEARCH ANALYST [facility] Lymphocytes % 20.7 20.0 - 43.0 % 04/03/2018 4:22 AM [facility] Monocytes % 8.0 5.0 - 13.0 % 04/03/2018 4:22 AM QUANTITATIVE RESEARCH ANALYST [facility] Eosinophils % 3.9 0.0 - 6.0 % 04/03/2018 4:22 AM QUANTITATIVE RESEARCH ANALYST [facility] Basophils % 0.7 0.0 - 2.0 % 04/03/2018 4:22 AM QUANTITATIVE RESEARCH ANALYST [facility] Immature Granulocytes 0.3 0 - 1 % 04/03/2018 4:22 AM [facility] Neutrophil Absolute 4.66 2.01 - 7.14 x10E9/L 04/03/2018 4:22 AM [facility] Lymphocytes Absolute 1.45 1.07 - 3.94 x10E9/L 04/03/2018 4:22 AM [facility] Monocytes Absolute 0.56 0.26 - 1.07 x10E9/L 04/03/2018 4:22 AM [facility] Eosinophils Absolute 0.27 0 - 0.47 x10E9/L 04/03/2018 4:22 AM [facility] Basophils Absolute 0.05 0 - 0.08 x10E9/L 04/03/2018 4:22 AM [facility] Immature Granulocytes Absolute 0.02 0.00 - 0.06 x10E9/L 04/03/2018 4:22 AM [facility] nRBC Auto 0 /100 WBC 04/03/2018 4:22 AM [facility] Blood BLOOD SPECIMEN / Unknown Venipuncture / Unknown 04/03/2018 4:09 AM QUANTITATIVE RESEARCH ANALYST 04/03/2018 4:13 AM QUANTITATIVE RESEARCH ANALYST Waldemar Marshall DO LAB - HEMATOLOGY ORD ERABLES [facility] [address] [place] [address] documented in 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 Visit Diagnoses Diagnosis Fall, initial encounter History of nursing home anticoagulant use Right leg pain Pain in limb Chronic alcohol use documented in 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 Administered Medications Inactive Administered Medications - up to 3 most recent administrations Medication Order MAR Action Action Date Dose Rate Site dextrose 5 % and 0.9% nacl 1,000 mL with M.V.I. (MVI adult) 10 mL, thiamine (VITAMIN B-1) 100 mg infusion at 1,000 mL/hr, Intravenous, BOLUS IV, 1 dose, On Amber 18 at 0430 $ New Bag/Syringe 04/03/2018 4:41 AM QUANTITATIVE RESEARCH ANALYST 1000 mL/hr ketorolac (TORADOL) injection 15 mg 15 mg, Intravenous, NOW, 1 dose, On Amber 04/03/18 at 0730 $ Given 04/03/2018 7:23 AM QUANTITATIVE RESEARCH ANALYST 15 mg morphine injection 4 mg 4 mg, Intravenous, NOW, 1 dose, On Amber 04/03/18 at 0415 $ Given 04/03/2018 4:41 AM QUANTITATIVE RESEARCH ANALYST 4 mg documented in 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 Active and Recently Administered Medications Times are shown in QUANTITATIVE RESEARCH ANALYST. Scheduled Medication Order 04/01/2018 04/02/2018 04/03/2018 dextrose 5 % and 0.9% nacl 1,000 mL with M.V.I. (MVI adult) 10 mL, thiamine (VITAMIN B-1) 100 mg infusion (COMPLETED) at 1,000 mL/hr, Intravenous, BOLUS IV, 1 dose, On Amber 04/03/18 at 0430 0441 ($ New Bag/Syri nge - Provider: Td Gan, GEOVANY)[id number] (Stopped - Provider: Troy Sherman, GEOVANY) ketorolac (TORADOL) injection 15 mg (COMPLETED) 15 mg, Intravenous, NOW, 1 dose, On Amber 04/03/18 at 0730 0723 ($ Given - Prov ider: Troy Sherman, GEOVANY) morphine injection 4 mg (COMPLETED) 4 mg, Intravenous, NOW, 1 dose, On Amber 04/03/18 at 0415 0441 ($ Given - Prov ider: Td Gan RN) documented in 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
--- OUTSIDE RECORDS SUMMARY | 2024-03-24 18:51 | XMS_ITS | Referral Summary ---
Author Organization [facility] Address [address] [place] [address] Care Team Providers Care Agency Service Coordinator Name Role Phone Haritha Tse Patricia MARAVILLA-COMMUNITY ORGANIZATION WORKER Primary Care Provider + Source Comments [facility],non-owned Affiliates and Associated Physician Practices is amultiple site organization consisting of ambulatory clinics and hospital sitesin [place], [place], [place] and [place]. This disclosure is being madepursuant to the Care Everywhere program and may not contain all information available regarding this patient. Last updated 17.[facility] Encounters Date Type Department Care Team Description 01/16/2024 Travel 01/16/2024 12:15 PM CDT Clinical Support [facility] Weight Management Services [address] [place] [address], [address] [address] Morbid obesity (HCC) from Last 3 Months Allergies No known active allergies Medications * Be aware that medications may not be up to date on this document. Alwaysverify current medications with the patient. Medication Sig Dispensed Refills Start Date End Date Status metoprolol succinate XL 24hr (Toprol XL) 25 MG tablet metoprolol succinate ER 25 mg tablet,extended release 24 hr Active oxyCODONE-acetaminop hen (Percocet) 5-325 MG tablet Take 1 (one) tablet by mouth 2 times daily as needed For pain. 03/04/2023 Active zolpidem (Ambien) 10 MG tablet 01/31/2023 Active rivaroxaban (Xarelto) 20 MG tablet every 24 hours Active vitamin D, ergocalciferol, (Drisdol) 1.25 MG (69640 UT) capsuleIndications:M orbid obesity (HCC),Bariatric surgery status,Vitamin deficiency,Vitamin D deficiency,Postsurgi rubi malabsorption (HCC) Take 1 (one) capsule by mouth every 7 days 12 capsule 03/26/2023 Active amLODIPine (Norvasc) 10 MG tablet TAKE 0.5 OF A TABLET BY MOUTH DAILY 03/15/2023 Active furosemide (Lasix) 20 MG tablet Take 1 tablet every day by oral route for 30 days. Active Active Problems Problem Noted Date Diagnosed Date Adjustment disorder with disturbance of emotion 03/19/2018 Cocaine dependence, continuous 03/19/2018 Alcohol use disorder, moderate, dependence 03/19 Severe recurrent major depre ssion without psychotic features 03/17/2018 Social History Tobacco Use Types Packs/Day Years Used Date Smoking Tobacco: Never Smokeless Tobacco: Never Tobacco Cessation:Counseling Given: Not Answered Alcohol Use Standard Drinks/Week Comments Not Currently 10 (1 standard drink = 0.6 oz pure alcohol) Havent drank since gi Sex and Gender Information Value Date Recorded Sex Assigned at Female 03/18/2023 5:31 PM DENTAL HYGIENE PROFESSOR Gender Identity Female 03/18/2023 5:31 PM DENTAL HYGIENE PROFESSOR Sexual Orientation Straight 03/18/2023 5: 31 PM DENTAL HYGIENE PROFESSOR Last Filed Vital Signs Vital Sign Reading Time Taken Comments Blood Pressure 138/95 04/15/2023 9:15 AM DENTAL HYGIENE PROFESSOR Pulse 58 04/15/2023 9:15 AM DENTAL HYGIENE PROFESSOR Temperature 36.4 ??C (97.6 ??F) 04/15/2023 8:46 AM CS T Respiratory Rate 18 04/15/2023 9:15 AM DENTAL HYGIENE PROFESSOR Oxygen Saturation 98% 04/15/2023 9:15 AM DENTAL HYGIENE PROFESSOR Inhaled Oxygen Concentration - - Weight 135.2 kg (298 lb) 01/16/2024 12:24 PM CDT Height 170.2 cm (5' 7 ) 01/16/2024 12:24 PM CDT Body Mass Index 46.67 01/16/2024 12:24 PM CDT Functional Status Functional Status Response Date of Assess ment Is person deaf or have serious hearing difficult y? No 04/15/2023 Is person blind or have serious difficulty seein g? No 04/15/2023 Does person have serious dif ficulty walking/climbing stairs? Yes 04/15/2023 Does person have difficulty dressing/bathing? Ye s 04/15/2023 Does person have difficulty doing errands alone? Yes 04/15/2023 Cognitive Status Response Date of Assessm ent Does person have difficulty concentrating/remembering/making decisions? No 04/15/2023 Plan of Treatment Not on file Procedures Procedure Name Priority Date/Time Associated Diagnosis Comments COMPREHENSIVE METABOLIC PANEL Routine 03/07/2023 1:26 PM DENTAL HYGIENE PROFESSOR Bariatric surgery status Intestinal malabsorption, unspecified type (HCC) from Last 3 Months or Most Recently Relevant to Health Maintenance Results * (ABNORMAL) COMPREHENSIVE METABOLIC PANEL (03/07/2023 1:26 PM DENTAL HYGIENE PROFESSOR) Glucose 104(H) 70 - 99 mg/dL [facility] BUN 19 6 - 24 mg/dL [facility] Creatinine 1.04(H) 0.57 - 1.00 mg/dL [facility] BILL eGFR by CKD-EPI 64 >59 mL/min/1.7 3 [facility] BILL BUN/Creatinine Ratio 18 9 - 23 [facility] Sodium 143 134 - 144 mmol/L [facility] Potassium 3.7 3.5 - 5.2 mmol/L [facility] Chloride 106 96 - 106 mmol/L [facility] B[facility] CO2 19(L) 20 - 29 mmol/L [facility] Calcium 9.4 8.7 - 10.2 mg/dL [facility] B[facility] Protein Total 7.2 6.0 - 8.5 g/dL [facility] B[facility] Albumin 4.3 3.8 - 4.9 g/dL [facility] Globulin Total 2.9 1.5 - 4.5 g/dL [facility] BILL Albumin/Globulin Ratio 1.5 1.2 - 2.2 [facility] BILL Bilirubin Total 0.5 0.0 - 1.2 mg/dL [facility] BILL Alkaline Phosphatase 133(H) 44 - 121 IU/L [facility] B[facility] AST 18 0 - 40 IU/L [facility] B[facility] ALT 11 0 - 32 IU/L [facility] BILL Blood BLOOD SPECIMEN / Unknown 03/07/2023 1:26 PM DENTAL HYGIENE PROFESSOR 03/07/2023 Narrative Resulting Agency Comment Lab Testing performed at: [facility] [address] ??Critical access hospital [id number] Suresh Prajapati MD LAB - CHEMISTRY ANNETTE ENGLISH [facility] INSURANCE BILL [address] [address] from Last 3 Months or Most Recently Relevant to Health Maintenance Care Teams Agency Service Coordinator Relationship Specialty Start Date End Date Haritha Tse, YARD BRAKEMAN-COMMUNITY ORGANIZATION WORKER [address] [place] [address] PCP - General Nurse Practitioner 03/25/23
--- OUTSIDE RECORDS SUMMARY | 2024-03-24 18:51 | XMS_ITS | Encounter Summary ---
Author Organization [facility] Address [address] [place] [address] Care Team Providers Care Clinical Trainer Name Role Phone Haritha Tse Patricia MARAVILLA-RESTAURANT HOST/HOSTESS Primary Care Provider + Reason for Visit * Reason Comments Diet Encounter Details Date Type Department Care Team (Latest Contact Info) Description 10/29/2023 10:45 AM CDT Clinical Support [facility] Weight Management Services [address], [address] [place] [address] Morbid obesity (HCC) Social History Tobacco Use Types Packs/Day Years Used Date Smoking Tobacco: Never Smokeless Tobacco: Never Alcohol Use Standard Drinks/Week Comments Not Currently 10 (1 standard drink = 0.6 oz pure alcohol) Havent drank since Sex and Gender Information Value Date Recorded Sex Assigned at Female 03/18/2023 5:31 PM SLEEPING CAR CONDUCTOR Gender Identity Female 03/18/2023 5:31 PM SLEEPING CAR CONDUCTOR Sexual Orientation Straight 03/18/2023 5: 31 PM SLEEPING CAR CONDUCTOR documented as of 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 Last Filed Vital Signs Vital Sign Reading Time Taken Comments Blood Pressure - - Pulse - - Temperature - - Respiratory Rate - - Oxygen Saturation - - Inhaled Oxygen Concentration - - Weight 140.6 kg (310 lb) 10/29/2023 11:54 AM CDT Height 170.2 cm (5' 7 ) 10/29/2023 11:54 AM CDT Body Mass Index 48.55 10/29/2023 11:54 AM CDT documented in 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 Functional Status Functional [...] person have difficulty concentrating/remembering/making decisions? No 04/15/2023 documented as of 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 Progress Notes * Nelsy Lamb, RD/LDN - 10/29/2023 11:54 AM CDT Weight Management Medical Nutrition Therapy Session 2 Date: 10/29/2023 Patient: Tiarra HAN Date of : 1970 (52 year old) PCP Physician: Haritha Tse APRN-RESTAURANT HOST/HOSTESS Referring Physician: Suresh Prajapati MD Progress towards previous goals: 1. Sample protein supplements- goal met 2. Utilize protein shake in place of skipping meals- progressing Assessment: Pt planning LLRNY s/p RNY in 1999. 18 lb weight loss from previous visit / 18 lb net weight loss from initial RD visit. Pt appears to be making positive changes towards surgery. Pt statesshe has been working cut out added sugars in her diet. She is trying to eat something small for lunch and has been drinking protein shakes for a snack if needed. Pt aware protein shakes can be used for meal replacements as well. Pt reports adequate fluid intake and stopped drinking apple juice. Discussed protein requirements, high protein foods, measuring and tracking protein intake, reading foodlabels, and vitamin and mineral supplementation today. Plan to discuss pre-op liquid diet and diet p rogression at next visit. All pt questions were answered at this time. B: 2 eggs, 2 turkey wren L: hard boiled eggs D: fish/chicken/turkey, zucchini, rice S: yogurt, fruit Past Medical History: Diagnosis Date Anxiety Congestive heart failure (HCC) history DVT (deep venous thrombosis) (HCC) GERD (gastroesophageal reflux disease) HTN (hypertension) Morbid obesity due to excess calories (HCC) Osteoarthritis Pulmonary emboli (HCC) has IVC filter Patient participates in exercise: 0 times per week Patient is participating in the following exercise program: Walking and ADLs Pertinent Nutrition Medications: Reviewed Pertinent Nutrition Labs: Reviewed Clinical Data: Height: 170.2 cm (5' 7 ) Weight: (!) 140.6 kg (310 lb) BMI (Calculated): 48.[address] visit: 328 Diagnostic Statement: Obesity related to excess energy intake and decreased physical activity AEB elevated BMI. Interventions: Bariatric Nutrition Guide provided and reviewed, including: previous food records, proper eating habits/behavior modification tips, adequate hydration, protein requirements, high protein foods, recommended protein supplements, and bariatric multivitamin/mineral supplementation recommendations Materials Provided: Bariatric Nutrition Guide, Support Group Schedule, High Protein Liquid Supplement Handout, and Vitamin Option Sheet Behavior and Lifestyle Modifications Discussed: Eat 3 meals daily with 1-2 high protein snacks as needed Choose low fat/low sugar items Eat 80-100 gm protein per day Eliminate caloric beverages, carbonated beverages and limit caffeine Perform 30 minutes of cardiovascular exercise per day, most days of the week as able and approved by physician Do not graze between meals Incorporate fruits and vegetables Include whole grain foods Take 15-20 minutes to eat meals Reduce stress and emotional eating Portion control Recipe modifications/cooking methods Monitoring: Pt encouraged to call RD with questions and/or concerns. Pt verbalizes understanding of expectation of gradual weight loss or weight maintenance prior to surgery. Evaluation of Overall Compliance Potential: Good Goals for this month: 1. Track/measure protein intake, aim for at least 80 grams per day Nutritional Review Cleared, no additional RD visits required ___ Not cleared, additional RD visit(s) required ___ Continue with Medically Managed Diet visits _x__ Bariatric Case Conference review required ___ Session Information Session date: 10/29/2023 Session total minutes: [address]/CHEMA documented in 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 Plan of Treatment Not on file documented as of 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 Visit Diagnoses Diagnosis Morbid obesity (HCC)- Primary Morbid obesity documented in 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 Care Teams Clinical Trainer Relationship Specialty Start Date End Date Haritha Tse APRN-RESTAURANT HOST/HOSTESS [address] [place] [address] PCP - General Nurse Practitioner 03/25/23 documented as of 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
--- OUTSIDE RECORDS SUMMARY | 2024-03-24 18:51 | XMS_ITS | Encounter Summary ---
Author Organization [facility] Address [address] [address] Care Team Providers Care Lockstitch Front Edge Tape Sewer Name Role Phone Haritha Tse TAIWO-DONOR SERVICES SPECIALIST Primary Care Provider + Encounter Details Date Type Department Care Team (Latest Contact Info) Description 01/16/2024 12:15 PM CDT Clinical Support [facility] Weight Management Services [address] [place] [address], [facility] [address] [place] [address] Morbid obesity (HCC) Social History Tobacco Use Types Packs/Day Years Used Date Smoking Tobacco: Never Smokeless Tobacco: Never Alcohol Use Standard Drinks/Week Comments Not Currently 10 (1 standard drink = 0.6 oz pure alcohol) Havent drank since Sex and Gender Information Value Date Recorded Sex Assigned at Female 03/18/2023 5:31 PM MOBILITY ARCHITECT MANAGER Gender Identity Female 03/18/2023 5:31 PM MOBILITY ARCHITECT MANAGER Sexual Orientation Straight 03/18/2023 5: 31 PM MOBILITY ARCHITECT MANAGER documented as of 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 Last Filed Vital Signs Vital Sign Reading Time Taken Comments Blood Pressure - - Pulse - - Temperature - - Respiratory Rate - - Oxygen Saturation - - Inhaled Oxygen Concentration - - Weight 135.2 kg (298 lb) 01/16/2024 12:24 PM CDT Height 170.2 cm (5' 7 ) 01/16/2024 12:24 PM CDT Body Mass Index 46.67 01/16/2024 12:24 PM CDT documented in 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 Functional Status [...] as of 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 Progress Notes * Dawood Lisa, RD/LD - 01/16/2024 12:01 PM CDT Weight Management Medical Nutrition Therapy Session 3 Date: 01/16/2024 Patient: Tiarra HAN Date of : 1970 (53 year old) PCP Physician: Haritha Tse APRN-NIKI Referring Physician: Suresh Prajapati MD Assessment: Pt planning LLRNYGB s/p RNY completed in 1999. 30 lb net weight loss. Pt appears to have made appropriate modifications to diet and behaviors as suggested. Protein, fluids, and activity appear adequate. Diet recall suggests similar intake. Pre op diet, post op diet, MVI/Ca, behavior change, post op complications, and bolanos diet principles reviewed with pt. Pt asked appropriate questionsPRN. Past Medical History: Diagnosis Date Anxiety Congestive heart failure (HCC) history DVT (deep venous thrombosis) (HCC) GERD (gastroesophageal reflux disease) HTN (hypertension) Morbid obesity due to excess calories (HCC) Osteoarthritis Pulmonary emboli (HCC) has IVC filter Pertinent Nutrition Medications: Reviewed Pertinent Nutrition Labs: Reviewed Clinical Data: Height: 170.2 cm (5' 7 ) Weight: 135.2 kg (298 lb) BMI (Calculated): 46.[address] visit: 328 Diagnostic Statement: Obesity related to excess energy intake and decreased physical activity AEB elevated BMI. Interventions: Bariatric Nutrition Guide provided and reviewed, including: previous food records, proper eating habits/behavior modification tips, adequate hydration, no alcohol/carbonation, protein requirements, high protein foods, recommended protein supplements, portion control, bariatric multivitamin/mineral s upplementation recommendations, pre op liquid diet, post surgery diet progression, importance of routine activity/exercise , tips for dining out, bariatric post op concerns: dumping syndrome, N/V, constipation, goals for lifetime success, attending support group, and goals Materials Provided: Bariatric Nutrition Guide, Support Group Schedule, High Protein Liquid Supplement Handout, and Vitamin Option Sheet Behavior and Lifestyle Modifications Discussed: Eat 3 meals daily with 1-2 high protein snacks as needed Choose low fat/low sugar items Eat 80-90 gm protein per day Eliminate caloric beverages, [...] loss or weight maintenance prior to surgery. Nutritional Review Cleared, no additional RD visits required __X_ Not cleared, additional RD visit(s) required ___ Continue with Medically Managed Diet visits ___ Bariatric Case Conference review required ___ Session Information Session date: 01/16/2024 Session total minutes: [address]/CLAIR documented in 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 Plan of Treatment Not on file documented as of 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 Visit Diagnoses Diagnosis Morbid obesity (HCC)- Primary Morbid obesity documented in 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 Care Teams Lockstitch Front Edge Tape Sewer Relationship Specialty Start Date End Date Haritha Tse, TAIWO-DONOR SERVICES SPECIALIST [address] [place] [address] PCP - General Nurse Practitioner 03/25/23 documented as of 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
--- OUTSIDE RECORDS SUMMARY | 2024-03-24 18:51 | XMS_ITS | Encounter Summary ---
Author Organization [facility] Address [address] [place] [address] Care Team Providers Care Steward/Stewardess Bath Name Role Phone Unavailable Primary Care Provider Unavailabl e Reason for Visit * Reason Comments Chest Pain Pt presents to the E D with c/o chest pain that began this morning around 0600. Pt states she is on blood thinners for DVT in bilateral legs. Shortness of Breath Pt states shortness of breath began this AM. Pt 100% on room air. Encounter Details Date Type Department Care Team (Late st Contact Info) Description 03/19/2018 9:40 AM MOUNTING INSPECTOR - 03/19/2018 5:27 PM MOUNTING INSPECTOR Emergency ER at [address] [address] [place] [address] [facility] [place] [address] Chest pain, unspecified type (Primary Dx); Cellulitis of right lower extremity; Lymphedema of both lower extremities Discharge Disposition: Home or Self Care Social History Tobacco Use Types Packs/Day Years Used Date Smoking Tobacco: Never Smokeless Tobacco: Never Alcohol Use Standard Drinks/Week Comments Yes 10 (1 standard drink = 0.6 oz pu re alcohol) bottle of wine daily Sex and Gender Information Value Date Recorded Sex Assigned at Female 03/18/2023 5:31 PM MOUNTING INSPECTOR Gender Identity Female 03/18/2023 5:31 PM MOUNTING INSPECTOR Sexual Orientation Straight 03/18/2023 5: 31 PM MOUNTING INSPECTOR documented as of 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 Last Filed Vital Signs Vital Sign Reading Time Taken Comments Blood Pressure 168/82 03/19/2018 4:05 PM MOUNTING INSPECTOR Pulse 82 03/19/2018 4:05 PM MOUNTING INSPECTOR Temperature 37.2 ??C (98.9 ??F) 03/19/2018 9:22 AM CS T Respiratory Rate 18 03/19/2018 4:05 PM MOUNTING INSPECTOR Oxygen Saturation 95% 03/19/2018 4:05 PM MOUNTING INSPECTOR Inhaled Oxygen Concentration - - Weight 147.4 kg (325 lb) 03/19/2018 9:22 AM MOUNTING INSPECTOR Height 170.2 cm (5' 7 ) 03/19/2018 9:22 AM MOUNTING INSPECTOR Body Mass Index 50.9 03/19/2018 9:22 AM MOUNTING INSPECTOR documented in 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 Functional Status Functional [...] 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 Discharge Instructions * Discharge Instructions* Sunny Delaney MD - 03/19/2018 3:32 PM MOUNTING INSPECTOR Images from the original note were not included. IT WAS OUR PLEASURE AT [facility] TO SERVE YOUR EMERGENCY HEALTH CARE NEEDS TODAY. YOU MAY RECEIVE A SURVEY IN THE MAIL INQUIRING ABOUT YOUR THOUGHTS REGARDING TODAY'S VISIT. PLEASE BE AWARE THAT WE STRIVE FOR THE BEST AT [facility] EM[facility]GENCY DEPARTMENT, AND ANY SCORE UNDER A PERFECT 5 ISCONSIDERED A FAILURE ON OUR PART. IF YOU WERE HAPPY WITH YOUR CARE, PLEASE CHICA ALL 5'S ! Cellulitis WHAT YOU NEED TO KNOW: Cellulitis is a skin infection caused by bacteria. Cellulitis may go away on its own or you may need treatment. Your healthcare provider may draw a apache around the outside edges of your cellulitis.If your cellulitis spreads, your healthcare provider will see it outside of the apache. DISCHARGE INSTRUCTIONS: Call 911 if: ?? You have sudden trouble breathing or chest pain. Return to the emergency department if: ?? Your wound gets larger and more painful. ?? You feel a crackling under your skin when you touch it. ?? You have purple dots or bumps on your skin, or you see bleeding under your skin. ?? You have new swelling and pain in your legs. ?? The red, warm, swollen area gets larger. ?? You see red streaks coming from the infected area. Contact your healthcare provider if: ?? You have a fever. ?? Your fever or pain does not go away or gets worse. ?? The area does not get smaller after 2 days of antibiotics. ?? Your skin is flaking or peeling off. ?? You have questions or concerns about your condition or care. Medicines: ?? Antibiotics help treat the bacterial infection. ?? NSAIDs , such as ibuprofen, help decrease swelling, pain, and fever. NSAIDs can cause stomach bleeding or kidney problems in certain people. If you take blood thinner medicine, always ask if NSAIDs are safe for you. Always read the medicine label and follow directions. Do not give these medicines to children under 6 months of age without direction from your child's healthcare provider. ?? Acetaminophen decreases pain and fever. It is available without a doctor's order. Ask how much to take and how often to take it. Follow directions. Read the labels of all other medicines you are using to see if they also contain acetaminophen, or ask your doctor or pharmacist. Acetaminophen can cause liver damage if not taken correctly. Do not use more than 4 grams (4,000 milligrams) total of acetaminophen in one day. ?? Take your medicine as directed. Contact your healthcare provider if you think your medicine is not helping or if you have side effects. Tell him or her if you are allergic to any medicine. Keep a list of the medicines, vitamins, and herbs you take. Include the amounts, and when and why you take them. Bring the list or the pill bottles to follow-up visits. Carry your medicine list with you in case of an emergency. Self-care: ?? Elevate the area above the level of your heart as often as you can. This will help decrease swelling and pain. Prop the area on pillows or blankets to keep it elevated comfortably. ?? Clean the area daily until the wound scabs over. Gently wash the area with soap and water. Pat dry. Use dressings as directed. ?? Place cool or warm, wet cloths on the area as directed. Use clean cloths and clean water. Leave it on the area until the cloth is room temperature. Pat the area dry with a clean, dry cloth. The cloths may help decrease pain. Prevent cellulitis: ?? Do not scratch bug bites or areas of injury. You increase your risk for cellulitis by scratchingthese areas. ?? Do not share personal items, such as towels, clothing, and razors. ?? Clean exercise equipment with germ-killing condenser cleaner before and after you use it. ?? Wash your hands often. Use soap and water. Wash your hands after you use the bathroom, change a child's diapers, or sneeze. Wash your hands before you prepare or eat food. Use lotion to prevent dry, cracked skin. ?? Wear pressure stockings as directed. You may be told to wear the stockings if you have peripheral edema. The stockings improve blood flow and decrease swelling. ?? Treat athlete's foot. This can help prevent the spread of a bacterial skin infection. Follow up with your healthcare provider within 3 days, or as directed: Your healthcare provider will check if your cellulitis is getting better. You may need different medicine. Write down your questions so you remember to ask them during your visits. ?? Copyright Piki 2018 Information is for End User's use only and may not be sold, redistributed or otherwise used for commercial purposes. All illustrations and images included in CareNotes?? are the copyrighted property of [employer]. or [employer] The above information is an psychiatric aide instructor only. It is not intended as medical advice for individual conditions or treatments. Talk to your doctor, nurse or pharmacist before following any medical regimen to see if it is safe and effective for you. Chest Pain WHAT YOU NEED TO KNOW: Chest pain can be caused by a range of conditions, from not serious to life- threatening. Chest paincan be a symptom of a digestive problem, such as acid reflux or a stomach ulcer. An anxiety attack or a strong emotion, such as anger, can also cause chest pain. Infection, inflammation, or a fracture in the bones or cartilage in your chest can cause pain or discomfort. Sometimes chest pain or pressure is caused by poor blood flow to your heart (angina). Chest pain may also be caused by life-threatening conditions such as a heart attack or blood clot in your lungs. DISCHARGE INSTRUCTIONS: Call 911 if: ?? You have any of the following signs of a heart attack: ?? Squeezing, pressure, or pain in your chest ?? and any of the following: ?? Discomfort or pain in your back, neck, jaw, stomach, or arm ?? Shortness of breath ?? Nausea or vomiting ?? Lightheadedness or a sudden cold sweat Return to the emergency department if: ?? You have chest discomfort that gets worse, even with medicine. ?? You cough or vomit blood. ?? Your bowel movements are black or bloody. ?? You cannot stop vomiting, or it hurts to swallow. Contact your healthcare provider if: ?? You have questions or concerns about your condition or care. Medicines: ?? Medicines may be given to treat the cause of your chest pain. Examples include pain medicine, anxiety medicine, or medicines to increase blood flow to your heart. ?? Do not take certain medicines without asking your healthcare provider first. These include NSAIDs, herbal or vitamin supplements, or hormones (estrogen or progestin). ?? Take your medicine as directed. Contact your healthcare provider if you think your medicine is not helping or if you have side effects. Tell him or her if you are allergic to any medicine. Keep a list of the medicines, vitamins, and herbs you take. Include the amounts, and when and why you take them. Bring the list or the pill bottles to follow-up visits. Carry your medicine list with you in case of an emergency. Follow up with your healthcare provider within 72 hours, or as directed: You may need to return formore tests to find the cause of your chest pain. You may be referred to a specialist, such as a armature balancer or last puller. Write down your questions so you remember to ask them during your visits. Healthy living tips: The following are general healthy guidelines. If your chest pain is caused by a heart problem, your healthcare provider will give you specific guidelines to follow. ?? Do not smoke. Nicotine and other chemicals in cigarettes and cigars can cause lung and heart damage. Ask your healthcare provider for information if you currently smoke and need help to quit. E-cigarettes or smokeless tobacco still contain nicotine. Talk to your healthcare provider before you use these products. ?? Eat a variety of healthy, low-fat, low-salt foods. Healthy foods include fruits, vegetables, whole-grain breads, low-fat dairy products, beans, lean meats, and fish. Ask for more information abouta heart healthy diet. ?? Drink plenty of water every day. Your body is made of mostly water. Water helps your body to control your temperature and blood pressure. Ask your healthcare provider how much water you should drink every day. ?? Ask about activity. Your healthcare provider will tell you which activities to limit or avoid. Ask when you can drive, return to work, and have sex. Ask about the best exercise plan for you. ?? Maintain a healthy weight. Ask your healthcare provider how much you should weigh. Ask him or her to help you create a weight loss plan if you are overweight. ?? Get the flu and pneumonia vaccines. All adults should get the influenza (flu) vaccine. Get it every year as soon as it becomes available. The pneumococcal vaccine is given to adults aged 65 years or older. The vaccine is given every 5 years to prevent pneumococcal disease, such as pneumonia. If you have a stent: ?? Carry your stent card with you at all times. ?? Let all healthcare providers know that you have a stent. ?? Copyright Piki 2018 Information is for End User's use only and may not be sold, redistributed or otherwise used for commercial purposes. All illustrations and images included in CareNotes?? are the copyrighted property of [employer], [employer]. or [employer] The above information is an psychiatric aide instructor only. It is not intended as medical advice for individual conditions or treatments. Talk to your doctor, nurse or pharmacist before following any medical regimen to see if it is safe and effective for you. TING INSPECTOR documented in 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 Medications at Time of Discharge Medication Sig Dispensed Refills Start Date End Date amoxicillin-clavulanate (AUGMENTIN) 875-125 MG tabletIndications:Cellulit is Take 1 tablet by mouth 2 times daily with morning and evening meal for 7 days Reasons: Infection Under the Skin 14 tablet 03/18/2018 03/25/2018 FLUoxetine (PROZAC) 20 MG capsuleIndications:Depress ion Take [...] of Alcohol 30 tablet 1 03/18/2018 03/07/2023 thiamine 100 MGIndications:alcohol related problems Take 1 tablet by mouth once daily Reasons: alcohol related problems 30 tablet 1 03/17/2018 03/07/2023 documented as of 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 ED Notes * Vinita Rivas RN - 03/19/2018 4:11 PM CST Discharge teaching completed. Medication and follow-up care reviewed. Pt verbalized understanding. All belongings took with pt. Resp even non labored. No apparent distress noted. Pt ambulatory. TING INSPECTOR * Vinita Rivas RN - 03/19/2018 2:45 PM CST Pt resting in bed with both eyes closed. Resp even non labored. No apparent distress noted. Awaiting trop results/. Call light in reach. Will continue to monitor for changes. TING INSPECTOR * Sunny Delaney MD - 03/19/2018 10:25 AM CST Provider contact with the patient: 03/19/2018 10:25 Tiarra HAN [id number] [facility] EM[facility]ENC[facility] History Chief Complaint Patient presents with ??? Chest Pain Pt presents to the ED with c/o chest pain that began this morning around 0600. Pt states she is on blood thinners for DVT in bilateral legs. ??? Shortness of Breath Pt states shortness of breath began this AM. Pt 100% on room air. Chief complaint narrative was entered by triage nurse, not by physician. HPI Comments: 10:25 AM Tiarra HAN, a 47 y.o. female with no past medical history--presents to the ER c/o SOB and CP that began at 0600 this morning. Pt reports associated mild cough. Pt reports similar symptoms in the past and pt is currently on blood thinners for DVT in bilateral lower extremities. Pt states she was evaluated at [place] x2 days ago for marijuana and EtOH use but was not evaluated for SOB or CP. Patient reports no other symptoms at this time. PCP: No primary care [...] Review of Systems Review of Systems Constitutional: Negative. HENT: Negative. Eyes: Negative. Respiratory: Positive for cough and shortness of breath. Cardiovascular: Positive for chest pain and leg swelling. Gastrointestinal: Negative. Genitourinary: Negative. Musculoskeletal: Negative. Skin: Negative. Neurological: Negative. Endo/Heme/Allergies: Negative. Psychiatric/Behavioral: Negative. All other systems reviewed and are negative. Physical Exam BP 160/89 Pulse 74 Temp 98.9 ??F (37.2 ??C) Resp 18 Ht 1.702 m (5' 7 ) Wt (!) 147.4 kg (325 lb) SpO2 100% BMI 50.9 kg/m2 Physical Exam Constitutional: She is oriented to person, place, and time. She appears well- developed and well-nourished. Non-toxic appearance. No distress. Benign, non-toxic appearance. Non-distressed. HENT: Head: Normocephalic and atraumatic. Eyes: Pupils are equal, round, and reactive to light. Conjunctivae and EOM are normal. Neck: Normal range of motion. Neck supple. Cardiovascular: Normal rate, regular rhythm and normal heart sounds. Faint palpable pedal pulses RRR Pulmonary/Chest: Effort normal. No respiratory distress. She has no wheezes. She has rhonchi. Scattered rhonchi bilaterally No wheezes Abdominal: Soft. There is no tenderness. Abdomen soft, non-tender Musculoskeletal: Normal range of motion. She exhibits no edema. Chronic lymphedema to bilateral lower extremities, right lower extremity is significantly larger. Mild erythema to right upper medial tib-fib region extending to mid calf. No open wound, no drainage and no induration Neurological: She is alert and oriented to person, place, and time. GCS eye subscore is 4. GCS verbal subscore is 5. GCS motor subscore is 6. Skin: Skin is warm and dry. No erythema. Psychiatric: She has a normal mood and affect. Nursing note and vitals reviewed. Medications Current Outpatient Prescriptions Medication Sig Dispense Refill ??? naltrexone (REVIA) 50 MG tablet Take 1 tablet by mouth once daily Reasons: Excessive Use of Alcohol 30 tablet 1 ??? amoxicillin-clavulanate (AUGMENTIN) 875-125 MG tablet Take 1 tablet by mouth 2 times daily withmorning and evening meal for 7 days Reasons: Infection Under the Skin 14 tablet 0 ??? hydrOXYzine hcl (ATARAX) 25 MG tablet [...] Blood Pressure Disorder Procedures Procedures ECG Interpretation Date/Time: 03/19/2018 9:10 AM Interpreted by ED provider Rate: normal BPM: 71 QRS axis: normal Other findings: LVH Clinical impression: non-specific ECG ECG Rhythm Interpretation ECG Rhythm: normal sinus. ECG Heart Rate: 71. Lab/SPO2 Interpretation Hospital Encounter on 03/19/18 CBC W AUTO DIFFERENTIAL Result Value Ref Range WBC 8.2 4.4 - 10.7 x10E9/L WBC Corrected x10E9/L RBC 3.68 (L) 3.80 - 5.20 x10E12/L Hemoglobin 7.9 (L) 12.0 - 15.6 gm/dL Hematocrit 27.6 (L) 35.9 - 45.5 % MCV 75.0 (L) 80.7 - 98.3 fl MCH 21.5 (L) 26.7 - 34.0 pg MCHC 28.6 (L) 30.8 - 35.9 gm/dL Platelet Count 205 153 - 416 x10E9/L RDW-CV 19.2 (H) 12.1 - 14.9 % MPV 9.7 9.4 - 12.9 fl Neutrophils % 71.0 44.0 - 73.0 % Lymphocytes % 18.3 (L) 20.0 - 43.0 % Monocytes % 7.2 5.0 - 13.0 % Eosinophils % 3.1 0.0 - 6.0 % Basophils % 0.2 0.0 - 2.0 % Immature Granulocytes 0.2 0 - 1 % Neutrophil Absolute 5.79 2.01 - 7.14 x10E9/L Lymphocytes Absolute 1.49 1.07 - 3.94 x10E9/L Monocytes Absolute 0.59 0.26 - 1.07 x10E9/L Eosinophils Absolute 0.25 0 - 0.47 x10E9/L Basophils Absolute 0.02 0 - 0.08 x10E9/L Immature Granulocytes Absolute 0.02 0.00 - 0.06 x10E9/L nRBC Auto 0 /100 WBC COMPREHENSIVE METABOLIC PANEL Result Value Ref Range Glucose 79 74 - 106 mg/dL Sodium 135 (L) 136 - 145 mmol/L Potassium 5.7 (H) 3.5 - 5.1 mmol/L Chloride 105 98 - 107 mmol/L CO2 26 22 - 31 mmol/L Calcium 8.3 (L) 8.5 - 10.1 mg/dL Anion Gap 4 (L) 8 - 16 mmol/L BUN 14 7 - 21 mg/dL Creatinine 0.73 0.50 - 1.30 mg/dL Alkaline Phosphatase 88 38 - 126 U/L ALT 27 13 - 61 U/L AST 59 (H) 5 - 40 U/L Protein Total 7.7 6.4 - 8.2 gm/dL Albumin 2.9 (L) 3.4 - 5.0 gm/dL Bilirubin Total 0.5 0.2 - 1.0 mg/dL eGFR by MDRD >60 >60 mL/min/1.73m2 eGFR by MDRD >60 >60 mL/min/1.73m2 TROPONIN I Result Value Ref Range Troponin I <0.015 0.000 - 0.049 ng/mL TROPONIN I Result Value Ref Range Troponin I <0.015 0.000 - 0.049 ng/mL D-DIMER Result Value Ref Range D-Dimer 1.16 (H) 0.17 - 0.5 mg/L FEU NT-PRO BNP Result Value Ref Range NT-proBNP 946.0 (H) <300.0 pg/mL POTASSIUM BLOOD Result Value Ref Range Potassium 3.7 3.5 - 5.1 mmol/L CT CHEST PE Final Result CT Chest with Contrast INDICATION:Chest pain. Patient says she is on blood thinners for DVT in bilateral legs. TECHNIQUE: The CT scan of the chest is carried out during the administration of 80cc of Isovue-370 utilizing the special pulmonary embolus technique. 2D computer generated reformations were created in the coronal plane. FINDINGS: The pulmonary arteries are well seen down through the fourth order branches and no emboli are identified. The mediastinal and hilar structures are unremarkable. The lung thompson are free of infiltrate. There is a densely calcified granuloma in the left lower lobe. Limited images of the upper abdomen demonstrates suture material along the lesser curvature of the stomach and in the epigastric region consistent with prior gastric reduction surgery. IMPRESSION There is no evidence of pulmonary embolus. This examination was transcribed using the Boutir voice recognition system without human procedure writer. In an effort to expedite patient care, this report has not been adjusted for typographical, grammatical, and syntax by a trained medical technician assistant. Reading Radiologist: Tiarra Spaulding MD on 03/19/2018 at 1:27 PM XR CHEST 1VW PORTABLE Final Result AP Portable Chest Indication: Chest pain Findings: A single portable view of the chest shows the lungs are clear. Mediastinal contour and heart size are within normal limits. Pulmonary vascularity is unremarkable. IMPRESSION No acute disease. Reading Radiologist: Katt Kumar MD on 03/19/2018 at 11:13 AM Progress Notes 10:49 AM Plan: CXR, Labs, EKG, CT Chest PE 3:22 PM I rechecked the patient and provided a care update. 3:32 PM I reviewed patient's past medical charts and she is currently taking Augmentin. 3:39 PM I had a formal disposition interview with the patient to discuss the ED visit including all diagnostic studies, results, and the disposition plan of discharge. Instructed patient to follow up with Dr. Lancaster for further outpatient management. Advised to RTER for new, worsening, or any persistent conditions. All questions and concerns were addressed at this time. Patient agrees with plan and iscomfortable with discharge at this time. New Medications: New Prescriptions No medications on file I have advised the patient to follow-up with: Phil Lancaster MD [id number] [place] [id number] In 1 day ED Course ED Course Medical Decision Making I have reviewed the: Previous Chart, Nursing Notes, Vitals. I have interpreted the following results: Labs, 12 Lead EKG, Rhythm Strip, X- Ray, Oxygen Saturation. Orders Placed This Encounter ??? XR CHEST 1VW PORTABLE ??? CT CHEST PE ??? CBC W AUTO DIFFERENTIAL ??? COMPREHENSIVE METABOLIC PANEL ??? TROPONIN I ??? TROPONIN I ??? D-DIMER ??? NT-PRO BNP ??? POTASSIUM BLOOD ??? EKG 12-LEAD ??? HYDROcodone-acetaminophen (NORCO) 5-325 MG tablet 1 tablet ??? aspirin (ASPIRIN) chew tablet 324 mg ??? iopamidol (ISOVUE 370) 76 % contrast ??? iopamidol (ISOVUE 370) 76 % contrast ??? 0.9% NaCl injection 0-10 mL ??? 0.9% NaCl IV Flush Bag ??? HYDROcodone-acetaminophen (NORCO) 5-325 MG tablet 1 tablet Clinical Impression Final diagnoses: Chest pain, unspecified type (Primary) Cellulitis of right lower extremity Lymphedema of both lower extremities Disposition: Discharged Scribe Signature and Attestation By signing my name below, I, Teddy Pierre attest that this documentation has been prepared underthe direction and in the presence of Dr. Delaney. Provider Signature and Attestation I, Dr. Delaney, personally performed the services described in this documentation. All medical recordentries made by the scribe were at my direction and in my presence. I have reviewed the chart and agree that the record reflects my personal performance and is accurate and complete. 03/19/2018 4:11 PM TING INSPECTOR * Vinita Rivas RN - 03/19/2018 10:00 AM CST Patient to ED for c/o chest pain and sob. Patient was seen at [facility] yesterday. Patient alert and orient X3. Able to make needs known. Resp even non labored. No apparent distress noted. Call lightin reach. Will continue to monitor for changes. TING INSPECTOR * Melanie Adams RN - 03/19/2018 9:31 AM CST Bed: TRIAGE1 Expected date: Expected time: Means of arrival: Comments: [id number] PAIN/SOB TING INSPECTOR documented in 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 Plan of Treatment Not on file documented as of 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 Procedures Procedure Name Priority Date/Time Associated Diagnosis Comments CARDIAC EKG ORDER 03/21/2018 1:5 4 AM MOUNTING INSPECTOR TROPONIN I Timed 03/19/2018 2:[address] ANGIO CHEST PULM EMBOLISM STAT 03/19/2018 12:50 PM MOUNTING INSPECTOR Chest pain, unspecified type POTASSIUM BLOOD STAT 03/19/2018 11:57 AM MOUNTING INSPECTOR NT-PRO BNP STAT 03/19/2018 11:28 AM MOUNTING INSPECTOR TROPONIN I STAT 03/19/2018 11:28 AM MOUNTING INSPECTOR D-DIMER STAT 03/19/2018 11:28 AM MOUNTING INSPECTOR CBC W AUTO DIFFERENTIAL STAT 03/19/2018 11:28 AM MOUNTING INSPECTOR COMPREHENSIVE METABOLIC PANEL STAT 03/19/2018 11:28 AM MOUNTING INSPECTOR XR CHEST 1VW PORTABLE STAT 03/19/2018 10:52 AM MOUNTING INSPECTOR Chest pain, unspecified type EKG 12-LEAD STAT 03/19/2018 9:10 AM MOUNTING INSPECTOR Chest pain, unspecified type documented in 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 Results * CARDIAC EKG ORDER (03/21/2018 1:54 AM MOUNTING INSPECTOR) Narrative 03/21/2018 1:54 AM MOUNTING INSPECTOR Ordered by an unspecified provider. Scanned Document CARDIAC SERVICES ORD ERABLES * TROPONIN I (03/19/2018 2:51 PM MOUNTING INSPECTOR) Troponin I <0.015 0.000 - 0.049 ng/mL 03/19/2018 3:16 PM MOUNTING INSPECTOR [facility] Blood BLOOD SPECIMEN / Unknown Venipuncture / Unknown 03/19/2018 2:51 PM MOUNTING INSPECTOR 03/19/2018 2:51 PM MOUNTING INSPECTOR Narrative [facility] - 03/19/2018 3:16 PM MOUNTING INSPECTOR Note: Diagnosis of myocardial infarction requires symptoms of ischemia or EKG changes of ischemia and Troponin I >99th of normal (0.05 ng/mL). Troponin should be drawn on initial assessment and 3-6 hours later as clinically indicated. Any condition resulting in myocardial cell damage can increase cardiac troponin levels. In addition to myocardial infarction, these include but are not limited to congestive heart failure (CHF), arrhythmia, myocarditis, and non-cardiac related causes such as pulmonary embolism, renal failure and sepsis. Sunny Delaney MD LAB - CHEMISTRY O RDERABLES [facility] [address] [place] [address] * CT CHEST PE (03/19/2018 12:50 PM MOUNTING INSPECTOR) Anatomical Region Laterality Modality Chest Computed Tomogra phy 03/19/2018 1:25 PM MOUNTING INSPECTOR Impressions 03/19/2018 1:27 PM MOUNTING INSPECTOR There is no evidence of pulmonary embolus. This examination was transcribed using the Boutir voice recognition system without human procedure writer. ??In an effort to expedite patient care, this report has not been adjusted for typographical, grammatical, and syntax by a trained medical technician assistant. Reading Radiologist: Tiarra Spaulding MD on 03/19/2018 at 1:27 PM Narrative 03/19/2018 1:[address] Chest with Contrast INDICATION:Chest pain. Patient says she is on blood thinners for DVT in bilateral legs. TECHNIQUE: The CT scan of the chest is carried out during the administration of ??80cc of Isovue-370 utilizing the special pulmonary embolus technique. 2D computer generated reformations were created in the coronal plane. FINDINGS: The pulmonary arteries are well seen down through the fourth order branches and no emboli are identified. The mediastinal and hilar structures are unremarkable. The lung thompson are free of infiltrate. There is a densely calcified granuloma in the left lower lobe. Limited images of the upper abdomen demonstrates suture material along the lesser curvature of the stomach and in the epigastric region consistent with prior gastric reduction surgery. Procedure Note Tiarra Spaulding MD - 03/19/2018 CT Chest with Contrast INDICATION:Chest pain. Patient says she is on blood thinners for DVT in bilateral legs. TECHNIQUE: The CT scan of the chest is carried out during the administration of 80cc of Isovue-370 utilizing the special pulmonary embolus technique. 2D computer generated reformations were created in the coronal plane. FINDINGS: The pulmonary arteries are well seen down through the fourth order branches and no emboli are identified. The mediastinal and hilar structures are unremarkable. The lung thompson are free of infiltrate. There is a densely calcified granuloma in the left lower lobe. Limited images of the upper abdomen demonstrates suture material along the lesser curvature of the stomach and in the epigastric region consistent with prior gastric reduction surgery. IMPRESSION There is no evidence of pulmonary embolus. This examination was transcribed using the Boutir voice recognition system without human procedure writer. In an effort to expedite patient care, this report has not been adjusted for typographical, grammatical, and syntax by a trained medical technician assistant. Reading Radiologist: Tiarra Spaulding MD on 03/19/2018 at 1:27 PM Sunny Delaney MD CT ORDERABLES * POTASSIUM BLOOD (03/19/2018 11:57 AM MOUNTING INSPECTOR) Potassium 3.7 3.5 - 5.1 mmol/L 03/19/2018 12:08 PM MOUNTING INSPECTOR [facility] Blood BLOOD SPECIMEN / Unknown Venipuncture / Unknown 03/19/2018 11:57 AM MOUNTING INSPECTOR 03/19/2018 12:00 PM MOUNTING INSPECTOR Sunny Delaney MD LAB - CHEMISTRY O RDERABLES Performing Organization Address City/State/[facility] Co de Phone Number [facility] [address] [place] [address] * (ABNORMAL) NT-PRO BNP (03/19/2018 11:28 AM MOUNTING INSPECTOR) NT-proBNP 946.0(H) <300.0 pg/mL 03/19/2018 11:55 AM MOUNTING INSPECTOR [facility] Blood BLOOD SPECIMEN / Unknown Venipuncture / Unknown 03/19/2018 11:28 AM MOUNTING INSPECTOR 03/19/2018 11:32 AM MOUNTING INSPECTOR Narrative [facility] - 03/19/2018 11:55 AM MOUNTING INSPECTOR NT-proBNP Patient Age ? Acute HF Unlikely ? Acute HF Likely <50 years ? <300 pg/mL ? >450 pg/mL 50-75 years ?<300 pg/mL ? >900 pg/mL >75 years ? <300 pg/mL ? >1800 pg/mL Reference: YAHIR Rose et al. ICON Study. Heart Journal (2006) 27, 330- 337 Both BNP and NT-proBNP derive from the precursor molecule called proBNP which is secreted from the ventricles in response to ventricle volume expansion and/or pressure overload. The secreted proBNP is subsequently cleaved by enzymes to form BNP, the active hormone and NT-proBNP an inactive metabolite. NT-proBNP has a longer half-life of 1.5-2.0 hours verses BNP with a half-life of 20 min for BNP. Both are useful biomarkers of ventricular distension due to increased intracardiac pressure. Both BNP and NT-proBNP increase with age and renal insufficiency. Increased concentrations of NT-proBNP have also been observed in the setting of acute myocardial infarction, right ventricular failure, valvular heart disease, and atrial fibrillation. Sunny Delaney MD LAB - CHEMISTRY O RDERABLES [facility] [address] [place] [address] * (ABNORMAL) D-DIMER (03/19/2018 11:28 AM MOUNTING INSPECTOR) D-Dimer 1.16(H) 0.17 - 0.5 mg/L FEU 03/19/2018 11:45 AM [facility] Blood BLOOD SPECIMEN / Unknown Venipuncture / Unknown 03/19/2018 11:28 AM MOUNTING INSPECTOR 03/19/2018 11:32 AM MOUNTING INSPECTOR Narrative [facility] - 03/19/2018 11:45 AM MOUNTING INSPECTOR The [employer] D-Dimer assay is intended for use as an aid in diagnosis of venous thromboembolism [(VTE): deep vein thrombosis (DVT), pulmonary embolism (PE), and disseminated intravascular coagulation (DIC)], and has received U.S. Food and Drug Administration (FDA) approval to exclude VTE in patients with low or moderate pretest probability of PE or DVT (per Wells' rules). At a clinical cut-off value 0.50 mg/L FEU, the Negative Predictive Value of this assay is 99.8% for excluding PE and 100% for excluding DVT. A very low percentage of patients with VTE may yield D-Dimer results below the cut-off value. An elevated D-Dimer result has low specificity (40.4% for PE, 35.5% for DVT) and is a poor predictor of VTE. An elevated D-Dimer result may indicate DIC in the appropriate clinical setting. Results of this test should always be interpreted in conjunction with the patient's medical history, clinical presentation, and other findings. Sunny Delaney MD LAB - COAGULATION ORDERABLES Performing Organization Address [facility] Co de Phone Number [facility] [id number] [place] [phone] * TROPONIN I (03/19/2018 11:28 AM MOUNTING INSPECTOR) Troponin I <0.015 0.000 - 0.049 ng/mL 03/19/2018 11:55 AM [facility] Blood BLOOD SPECIMEN / Unknown Venipuncture / Unknown 03/19/2018 11:28 AM MOUNTING INSPECTOR 03/19/2018 11:32 AM MOUNTING INSPECTOR Narrative [facility] - 03/19/2018 11:55 AM [facility] Note: Diagnosis of myocardial infarction requires symptoms of ischemia or EKG changes of ischemia and Troponin I >99th of normal (0.05 ng/mL). Troponin should be drawn on initial assessment and 3-6 hours later as clinically indicated. Any condition resulting in myocardial cell damage can increase cardiac troponin levels. In addition to myocardial infarction, these include but are not limited to congestive heart failure (CHF), arrhythmia, myocarditis, and non-cardiac related causes such as pulmonary embolism, renal failure and sepsis. Sunny Delaney MD LAB - CHEMISTRY O RDERABLES Performing Organization Address [facility] de Phone Number [facility] [id number] [place] [phone] * (ABNORMAL) COMPREHENSIVE METABOLIC PANEL (03/19/2018 11:28 AM MOUNTING INSPECTOR) Pathologist [facility] Glucose 79 74 - 106 mg/dL 03/19/2018 11:55 AM [facility] Sodium 135(L) 136 - 145 mmol/L 03/19/2018 11:55 AM [facility] Potassium 5.7(H) 3.5 - 5.1 mmol/L 03/19/2018 11:55 AM [facility] Comment:Specimen is slightly to moderately hemolyzed which may affect results. Specimen recollection is recommended. Called to nurse Chloride 105 98 - 107 mmol/L 03/19/2018 11:55 AM [facility] CO2 26 22 - 31 mmol/L 03/19/2018 11:55 AM [facility] Calcium 8.3(L) 8.5 - 10.1 mg/dL 03/19/2018 11:55 AM [facility] Anion Gap 4(L) 8 - 16 mmol/L 03/19/2018 11:55 AM [facility] BUN 14 7 - 21 mg/dL 03/19/2018 11:55 AM [facility] Creatinine 0.73 0.50 - 1.30 mg/dL 03/19/2018 11:55 AM [facility] Alkaline Phosphatase 88 38 - 126 U/L 03/19/2018 11:55 AM [facility] ALT 27 13 - 61 U/L 03/19/2018 11:55 AM [facility] AST 59(H) 5 - 40 U/L 03/19/2018 11:55 AM [facility] Protein Total 7.7 6.4 - 8.2 gm/dL 03/19/2018 11:55 AM [facility] Albumin 2.9(L) 3.4 - 5.0 gm/dL 03/19/2018 11:55 AM [facility] Bilirubin Total 0.5 0.2 - 1.0 mg/dL 03/19/2018 11:55 AM [facility] eGFR by MDRD >60 >60 mL/min/1.7 3m2 03/19/2018 11:55 AM [facility] eGFR by MDRD >60 >60 mL/min/1.7 3m2 03/19/2018 11:55 AM [facility] Blood BLOOD SPECIMEN / Unknown Venipuncture / Unknown 03/19/2018 11:28 AM [facility] 03/19/2018 11:32 AM [facility] Sunny Delaney MD LAB - CHEMISTRY O RDERABLES [facility] [address] [place] [address] * (ABNORMAL) CBC W AUTO DIFFERENTIAL (03/19/2018 11:28 AM [facility]) WBC 8.2 4.4 - 10.7 x10E9/L 03/19/2018 11:37 AM [facility] WBC Corrected x10E9/L 03/19/2018 11:37 AM [facility] RBC 3.68(L) 3.80 - 5.20 x10E12/L 03/19/2018 11:37 AM [facility] Hemoglobin 7.9(L) 12.0 - 15.6 gm/dL 03/19/2018 11:37 AM [facility] Hematocrit 27.6(L) 35.9 - 45.5 % 03/19/2018 11:37 AM [facility] MCV 75.0(L) 80.7 - 98.3 fl 03/19/2018 11:37 AM [facility] MCH 21.5(L) 26.7 - 34.0 pg 03/19/2018 11:37 AM [facility] MCHC 28.6(L) 30.8 - 35.9 gm/dL 03/19/2018 11:37 AM [facility] Platelet Count 205 153 - 416 x10E9/L 03/19/2018 11:37 AM [facility] RDW-CV 19.2(H) 12.1 - 14.9 % 03/19/2018 11:37 AM [facility] MPV 9.7 9.4 - 12.9 fl 03/19/2018 11:37 AM [facility] Neutrophils % 71.0 44.0 - 73.0 % 03/19/2018 11:37 AM [facility] Lymphocytes % 18.3(L) 20.0 - 43.0 % 03/19/2018 11:37 AM [facility] Monocytes % 7.2 5.0 - 13.0 % 03/19/2018 11:37 AM [facility] Eosinophils % 3.1 0.0 - 6.0 % 03/19/2018 11:37 AM [facility] Basophils % 0.2 0.0 - 2.0 % 03/19/2018 11:37 AM [facility] Immature Granulocytes 0.2 0 - 1 % 03/19/2018 11:37 AM [facility] Neutrophil Absolute 5.79 2.01 - 7.14 x10E9/L 03/19/2018 11:37 AM [facility] Lymphocytes Absolute 1.49 1.07 - 3.94 x10E9/L 03/19/2018 11:37 AM [facility] Monocytes Absolute 0.59 0.26 - 1.07 x10E9/L 03/19/2018 11:37 AM MOUNTING INSPECTOR [facility] Eosinophils Absolute 0.25 0 - 0.47 x10E9/L 03/19/2018 11:37 AM MOUNTING INSPECTOR [facility] Basophils Absolute 0.02 0 - 0.08 x10E9/L 03/19/2018 11:37 AM MOUNTING INSPECTOR [facility] Immature Granulocytes Absolute 0.02 0.00 - 0.06 x10E9/L 03/19/2018 11:37 AM MOUNTING INSPECTOR [facility] nRBC Auto 0 /100 WBC 03/19/2018 11:37 AM MOUNTING INSPECTOR [facility] Blood BLOOD SPECIMEN / Unknown Venipuncture / Unknown 03/19/2018 11:28 AM MOUNTING INSPECTOR 03/19/2018 11:32 AM MOUNTING INSPECTOR Sunny Delaney MD LAB - HEMATOLOGY ORDERABLES [facility] [address] [place] [address] * XR CHEST 1VW PORTABLE (03/19/2018 10:52 AM MOUNTING INSPECTOR) Anatomical Region Laterality Modality Chest Radiographic Alexsandra ging 03/19/2018 11:1 3 AM MOUNTING INSPECTOR Impressions 03/19/2018 11:13 AM MOUNTING INSPECTOR No acute disease. Reading Radiologist: Katt Kumar MD on 03/19/2018 at 11:13 AM Narrative 03/19/2018 11:13 AM MOUNTING INSPECTOR AP Portable Chest Indication: Chest pain Findings: A single portable view of the chest shows the lungs are clear. Mediastinal contour and heart size are within normal limits. Pulmonary vascularity is unremarkable. Procedure Note Katt Kumar MD - 03/19/2018 AP Portable Chest Indication: Chest pain Findings: A single portable view of the chest shows the lungs are clear. Mediastinal contour and heart size are within normal limits. Pulmonary vascularity is unremarkable. IMPRESSION No acute disease. Reading Radiologist: Katt Kumar MD on 03/19/2018 at 11:13 AM Sunny Delaney MD DIAGNOSTIC IMAGIN G ORDERABLES * EKG 12-LEAD (03/19/2018 9:10 AM MOUNTING INSPECTOR) Ventricular Rate 71 BPM [facility] Atrial Rate 71 BPM [facility] P-R Interval 168 ms [facility] QRS Duration ms 80 ms [facility] Q-T Interval ms 406 ms [facility] QTC Calculation (Bezet) 441 ms [facility] Calculated P [place] 13 degrees [facility] Calculated R [place] -17 degrees [facility] Calculated T [place] -2 degrees [facility] Interpretation EKG Normal sinus rhythm Minimal voltage criteria for LVH, may be normal variant Borderline ECG No previous ECGs available Confirmed by SERGEI OVALLES MD ([id number]) on 03/20/2018 8:25:36 AM [facility] 03/19/2018 9:10 AM MOUNTING INSPECTOR 03/20/2018 8:25 AM MOUNTING INSPECTOR Sunny Delaney MD ECG ORDERABLES [facility] documented in 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 Visit Diagnoses Diagnosis Chest pain, unspecified type- Primary Cellulitis of right lower extremity Cellulitis and abscess of leg, except foot Lymphedema of both lower extremities documented in 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 Administered Medications Inactive Administered Medications - up to 3 most recent administrations Medication Order MAR Action Action Date Dose Rate Site 0.9% NaCl injection 0-10 mL 0-10 mL, Intracatheter, ONCE PRN, Other, Contrast flush, 1 dose, Starting on Sat03/19/18 at 1220, Until Sat03/19/18 at 1239, For administration with contrast. $ Given 03/19/2018 12:39 PM MOUNTING INSPECTOR 10 mL 0.9% NaCl IV Flush Bag 0-100 mL, Intracatheter, ONCE PRN, Contrast flush, 1 dose, Starting on Sat03/19/18 at 1220, Until Sat03/19/18 at 1239, For administration with contrast $ Given 03/19/2018 12:39 PM MOUNTING INSPECTOR 50 mL aspirin (ASPIRIN) chew tablet 324 mg 324 mg, Oral, NOW, 1 dose, On Sat03/19/18 at 1200 $ Given 03/19/2018 11:53 AM MOUNTING INSPECTOR 324 mg HYDROcodone-acetaminophen (NORCO) 5-325 MG tablet 1 tablet 1 tablet, Oral, NOW, 1 dose, On Sat03/19/18 at 1200 $ Given 03/19/2018 11:53 AM MOUNTING INSPECTOR 1 tablet HYDROcodone-acetaminophen (NORCO) 5-325 MG tablet 1 tablet 1 tablet, Oral, NOW, 1 dose, On Sat03/19/18 at 1500 $ Given 03/19/2018 3:10 PM MOUNTING INSPECTOR 1 tablet iopamidol (ISOVUE 370) 76 % contrast Intravenous, CONTRAST ONCE, Starting on Sat03/19/18 at 1151, Until Sat03/19/18 at 1828 iopamidol (ISOVUE 370) 76 % contrast Intravenous, CONTRAST ONCE, Starting on Sat03/19/18 at 1220, Until Sat03/19/18 at 1828 $ Given - Contrast 03/19/2018 12:39 PM MOUNTING INSPECTOR 80 mL documented in 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 Active and Recently Administered Medications Times are shown in MOUNTING INSPECTOR. Scheduled Medication Order 03/17/2018 03/18/2018 03/19/2018 aspirin (ASPIRIN) chew tablet 324 mg (COMPLETED) 324 mg, Oral, NOW, 1 dose, On Sat03/19/18 at 1200 1153 ($ Given - Prov ider: Vinita Rivas RN) HYDROcodone-acetaminophen (NORCO) 5-325 MG tablet 1 tablet (COMPLETED) 1 tablet, Oral, NOW, 1 dose, On Sat03/19/18 at 1200 1153 ($ Given - Prov ider: Vinita Rivas RN) HYDROcodone-acetaminophen (NORCO) 5-325 MG tablet 1 tablet (COMPLETED) 1 tablet, Oral, NOW, 1 dose, On Sat03/19/18 at 1500 1510 ($ Given - Prov ider: Yamilet Goodwin, EMT-P) iopamidol (ISOVUE 370) 76 % contrast Intravenous, CONTRAST ONCE, Starting on Sat03/19/18 at 1151, Until Sat03/19/18 at 1828 iopamidol (ISOVUE 370) 76 % contrast Intravenous, CONTRAST ONCE, Starting on Sat03/19/18 at 1220, Until Sat03/19/18 at 1828 1239 ($ Given - Cont rast - Provider: Elizabeth Gr, RT(R)CT) PRN Medication Order 03/17/2018 03/18/2018 03/19/2018 0.9% NaCl injection 0-10 mL (COMPLETED) 0-10 mL, Intracatheter, ONCE PRN, Other, Contrast flush, 1 dose, Starting on Sat03/19/18 at 1220, Until Sat03/19/18 at 1239, For administration with contrast. 1239 ($ Given - Prov ider: Elizabeth Gr, RT(R)CT) 0.9% NaCl IV Flush Bag (COMPLETED) 0-100 mL, Intracatheter, ONCE PRN, Contrast flush, 1 dose, Starting on Sat03/19/18 at 1220, Until Sat03/19/18 at 1239, For administration with contrast 1239 ($ Given - Prov ider: Elizabeth Gr, RT(R)CT) documented in 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
--- OUTSIDE RECORDS SUMMARY | 2024-03-24 18:51 | XMS_ITS | Encounter Summary ---
Author Organization [facility] Address [address] [place] [address] Care Team Providers Care Loss Prevention Detective Name Role Phone Haritha Tse Patricia MARAVILLA-ACTUARY Primary Care Provider + Reason for Visit * Reason Comments Diet Encounter Details Date Type Department Care Team (Latest Contact Info) Description 09/12/2023 10:45 AM CDT Clinical Support [facility] [address] [place] [address], [address] [id number] Morbid obesity (HCC) Social History Tobacco Use Types Packs/Day Years Used Date Smoking Tobacco: Never Smokeless Tobacco: Never Alcohol Use Standard Drinks/Week Comments Not Currently 10 (1 standard drink = 0.6 oz pure alcohol) Havent drank since Sex and Gender Information Value Date Recorded Sex Assigned at Female 03/18/2023 5:31 PM FRENCH FOLDER Gender Identity Female 03/18/2023 5:31 PM FRENCH FOLDER Sexual Orientation Straight 03/18/2023 5: 31 PM FRENCH FOLDER documented as of 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 Last Filed Vital Signs Vital Sign Reading Time Taken Comments Blood Pressure - - Pulse - - Temperature - - Respiratory Rate - - Oxygen Saturation - - Inhaled Oxygen Concentration - - Weight 149.1 kg (328 lb 12.8 oz) 09/12/2023 1:07 PM CDT Height 170.2 cm (5' 7 ) 09/12/2023 1:07 PM CDT Body Mass Index 51.5 09/12/2023 1:07 PM CDT documented in 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 Functional [...] as of 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 Progress Notes * Katie Nicole, RD/LD - 09/12/2023 1:06 PM CDT Weight Management Medical Nutrition Therapy Session 1 Date: 09/12/2023 Patient: Tiarra HAN Date of : 1970 (52 year old) PCP Physician: Haritha Tse APRN-ACTUARY Referring Physician: Suresh Prajapati MD Assessment: 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 Tiarra does not smoke. She has recently eliminated soda, and uses Crystal Light in her water. She reports drinking apple juice occasionally, and is willing to discontinue. She reports eating 2 meals most days. Breakfast may consist of 2 eggs and 2 pieces of turkey wren. Dinner may consist of baked fish and rice. She denies any snackingbetween meals, however, may eat leftovers at night if hungry. Reviewed bolanos diet principles, proteinneeds, protein sources, and protein supplement options/guidelines. Pt verbalized understanding. Past Medical History: Diagnosis Date Anxiety Congestive heart failure (HCC) history DVT (deep venous thrombosis) (HCC) GERD (gastroesophageal reflux disease) HTN (hypertension) Morbid obesity due to excess calories (HCC) Osteoarthritis Pulmonary emboli (HCC) has IVC filter Diets patient has tried: RNY 1999 Patient participates in exercise: 0 times per week Patient is participating in the following exercise program: Physical activity is limited due to knee pain Pertinent Nutrition Medications: Reviewed Pertinent Nutrition Labs: Reviewed Clinical Data: Height: 170.2 cm (5' 7 ) Weight: (!) 149.1 kg (328 lb 12.8 oz) BMI (Calculated): 51.49 Diagnostic Statement: Obesity related to excess energy intake and decreased physical activity AEB elevated BMI. Interventions: Bariatric Nutrition Guide provided and reviewed, including: proper eating habits/behavior modification tips, adequate hydration, no alcohol/carbonation, protein requirements, high protein foods, recommended protein supplements, and portion control Materials Provided: Bariatric Nutrition Guide, Food and Activity Guide, Support Group Schedule, High Protein Liquid Supplement Handout, and Vitamin Option Handout Behavior and Lifestyle Modifications Discussed: Eat 3 [...] to surgery. Evaluation of Overall Compliance Potential: Pt receptive and verbalizes understanding of concepts discussed Pt has reviewed pre-operative weight management contract, and verbalizes understanding of program expectations: Yes Goals for this month: 1. Sample protein supplements 2. Utilize protein shake in place of skipping meals Nutritional Review Cleared, no additional RD visits required ___ Not cleared, additional RD visit(s) required ___ Continue with Medically Managed Diet visits _X__ Bariatric Case Conference review required ___ Session Information Session date: 09/12/2023 Session total minutes: [address]/CLAIR documented in 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 Plan of Treatment Not on file documented as of 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 Visit Diagnoses Diagnosis Morbid obesity (HCC)- Primary Morbid obesity documented in 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 Care Teams Loss Prevention Detective Relationship Specialty Start Date End Date Haritha Tse, BEHAVIORAL HEALTH CARE COORDINATOR-ACTUARY [facility] [place] [address] PCP - General Nurse Practitioner 03/25/23 documented as of 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
--- OUTSIDE RECORDS SUMMARY | 2024-03-24 18:51 | XMS_ITS | Encounter Summary ---
Author Organization [facility] Address [address] [facility] [place] [address] Care Team Providers Care Head Refrigerating Engineer Name Role Phone Haritha Tse [facility] Primary Care Provider + Reason for Visit * Auth/Cert (Routine) Specialty Diagnoses / Procedures Referred By Contac t Referred To Contact Procedures [place] ED EGD FLEX TRANSORAL DX ESOPHAGOGASTRODUODENOSCOPY (EGD) DIAGNOSTIC Referral ID Status Reason Start Date Expiration Date Visits Re quested Visits Authorized [id number] 1 1 Encounter Details Date Type Department Care Team (Late st Contact Info) Description 04/15/2023 8:37 AM BUYERS' AGENT Anesthesia Event [facility] [place] [facility] [place] - Endoscopy Surgery [address] [place] [address] Del Shen MD [facility] [address] [facility] [address] [place] [phone] Jazmin Lopez APRN-SUPERVISOR [facility] [address] [place] [address] Anesthesia Record Procedure Summary Procedure Name Responsible Anesthesiologist Anesthesia Start Time Anesthesia Stop Time ESOPHAGOGASTRODUODENOSCOPY ( EGD) DIAGNOSTIC (Esophagus) Del Shen MD 04/15/23 0837 04/15/23 0843 Events Date Time Event Comment 04/15/2023 0745 0837 An Start 0837 An Start Data 0838 Timeout Anesthesia part icipated in timeout at the time documented in the record by nursing. 0839 PT Reassessment 0843 an stop data 0843 PACU Orders Reviewed 0843 ANPTO2 0843 Electnc Sig This record is electronically signed by the providers listed under staff. 0843 An Stop Meds Name Total lidocaine (XYLOCAINE MPF) 1% injection ( 10 mg/mL) 100 mg etomidate 2 mg/mL injection 10 mg propofol injection 10mg/mL (ENDO USE) 14 mL lactated ringers infusion 0 mL * Agents Name Exp. N2O O2 N2O * Blood No blood administrations on file. Lines, Drains, and Airways Type Details Placement Removal Peripheral IV Date: 04/15/23; Time : 831; Orientation: Anterior, Proximal, Right; Placed By: GEOVNAY Sykes; Tolerance: Well 04/15/23 0832 by Racheal Wayne RN 04/15/23 0935 by Dorinda Champagne RN documented in 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 Social History Tobacco Use Types Packs/Day Years Used Date Smoking Tobacco: Never Smokeless Tobacco: Never Alcohol Use Standard Drinks/Week Comments Not Currently 10 (1 standard drink = 0.6 oz pure alcohol) Havent drank since Sex and Gender Information Value Date Recorded Sex Assigned at Female 03/18/2023 5:31 PM BUYERS' AGENT Gender Identity Female 03/18/2023 5:31 PM BUYERS' AGENT Sexual Orientation Straight 03/18/2023 5: 31 PM BUYERS' AGENT documented as of 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 Functional Status Functional Status Response [...] as of 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 Progress Notes * Jazmin Lopez APRN-SUPERVISOR [employer] - 04/15/2023 8:43 AM CST ANESTHESIA POSTOP EVALUATION NOTE Procedure: ESOPHAGOGASTRODUODENOSCOPY (EGD) DIAGNOSTIC (Esophagus) ESOPHAGOGASTRODUODENOSCOPY (EGD) BIOPSY Tiarra HAN is a 52 year old female Patient Vitals for the past 6 hrs: BP Temp Pulse Resp SpO2 Pain Scale/Observation 04/15/23 0743 (!) 191/118 98 ??F (36.7 ??C) 55 -- 99 % -- 04/15/23 0803 -- -- -- 18 -- -- 04/15/23 0805 (!) 144/106 -- -- -- -- -- 04/15/23 0839 -- -- -- -- -- B Anesthesia Type: MAC * No Diagnosis Codes entered * Mental Status: alert, neurologic status has returned to perioperative level, awake and oriented Neuro Status: No numbess, tingling or visual disturbances Respiratory Function: natural Cardiac Function: stable Postop Pain: acceptable to the patient Postop Hydration: adequate Postop Nausea: none Assessment: no apparent anesthetic complications, patient tolerated procedure well and no evidence of recall Patient Disposition: Release from Anesthesia Care NOTABLE EVENTS: No notable events documented. RS' AGENT * Jazmin Lopez APRN-SUPERVISOR [employer] - 04/15/2023 7:44 AM CST ANESTHESIA PREOPERATIVE EVALUATION NOTE Procedure: ESOPHAGOGASTRODUODENOSCOPY (EGD) DIAGNOSTIC (Esophagus) Vitals: No data found. LMP: Patient's last menstrual period was 03/03/2018. OB Status: unknown ANESTHESIA PRE-EVALUATION NOTE The patient is a current smoker. The patient was instructed to abstain from smoking on day of procedure. The patient did not smoke on the day of the procedure. Physical Exam: Orientation X3 Airway/Mallampati Score: II Mouth Opening Distance: 3 fingerwidths Neck ROM: full TM Distance: > 3 FB Teeth: chipped Heart: normal - S1 S2 Lungs: clear to ausculation bilaterally Abdomen Exam: obese Review of Systems: History of anesthetic complications: No Sleep Apnea Risk: Yes, Large neck circumference Malignant Hyperthermia: No GERD: Yes Poor Exercise Tolerance: No Recent Chest Pain: No Shortness of Breath: No AICD/Pacemaker: No Renal Disease: No Diagnostic Tests: Lab(s) reviewed: Yes. ANESTHESIA PLAN ASA Score: 3 NPO Status: No solids since midnight Anesthesia Plan: MAC Planned Induction: intravenous Planned Postop Destination: OPS Anesthetic plan was discussed with: patient Anesthetic Plan discussion was: Consented BMI, Height, Weight Tobacco History Estimated body mass index is 47.27 kg/m?? as calculated from the following: Height as of 03/07/23: 1.702 m (5' 7 ). Weight as of 03/07/23: 136.9 kg (301 lb 12.8 oz). Social History Tobacco Use Smoking Status Never Smokeless Tobacco Never Alcohol History Drug History Social History Substance and Sexual Activity Alcohol Use Yes ??? Alcohol/week: 10.0 standard drinks of alcohol ??? Types: 10 Shots of liquor per week Comment: bottle of wine daily Social History Substance and Sexual Activity Drug Use Yes ??? Types: Marijuana, Cocaine Comment: daily Outpatient Medications: Inpatient Medications: No outpatient medications have been marked as taking for the 04/15/23 encounter (Hospital Encounter). Current Facility-Administered Medications Medication Dose Last Admin ??? 0.9% NaCl 3 mL ??? lactated ringers Allergies: No Known Allergies Relevant Problems Problem List: Patient Active Problem List Diagnosis Date Noted ??? Adjustment disorder with disturbance of emotion 03/19/2018 Priority: Not Prioritized ??? Cocaine dependence, continuous ([place]) 03/19/2018 Priority: Not Prioritized ??? Alcohol use disorder, moderate, dependence ([place]) 03/19/2018 Priority: Not Prioritized ??? Severe recurrent major depression without psychotic features ([place]) 03/17/2018 Priority: Not Prioritized Medical History: Past Medical History: Diagnosis Date ??? DVT (deep venous thrombosis) ([place]) ??? HTN (hypertension) ??? Morbid obesity due to excess calories ([facility]) ??? Osteoarthritis ??? Pulmonary emboli ([place]) has IVC filter Surgical History: Past Surgical History: Procedure Laterality Date ??? BARIATRIC SURGERY, SEDRICK-EN-Y 2000 Dr. Samson ??? Section x3 HIM ASSISTANT Status: Patient's last menstrual period was 03/03/2018. unknown OB History No obstetric history on file. Covid Vaccine: Lab Results: Recent Labs Component Name 03/07/23 1326 WBC 4.9 RBC 3.39* HCT 31.4* HGB 10.0* PLTCOUNT 119* MCV 93 MCH 29.5 MCHC 31.8 Recent Labs Component Name 03/07/23 1326 SODIUM 143 POTASSIUM 3.7 CALCIUM 9.4 CHLORIDE 106 CO2 19* GLUCOSE 104* BUN 19 CREATININE 1.04* No results found for requested labs within last 120 days. Recent Labs Result Component Current Result Albumin 4.3 (03/07/2023) Alkaline Phosphatase 133 (H) (03/07/2023) ALT 11 (03/07/2023) AST 18 (03/07/2023) Bilirubin Total 0.5 (03/07/2023) eGFR by CKD-EPI 64 (03/07/2023) Anesthesia pre op re evaluation by Jazmin Lopez APRN-SUPERVISOR [facility] 04/15/2023 7:46 AM RS' AGENT documented in 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 Miscellaneous Notes * Anesthesia Transfer of Care - Jazmin Lopez APRN-SUPERVISOR [employer] - 04/15/2023 8:43 AM CST ANESTHESIA TRANSFER OF CARE NOTE Today's Date: 04/15/2023 Date of : 1970 Patient: Tiarra HAN Procedure(s): ESOPHAGOGASTRODUODENOSCOPY (EGD) DIAGNOSTIC ESOPHAGOGASTRODUODENOSCOPY (EGD) BIOPSY Surgeon(s): Primary: Kaiser Salgado DO Preop Diagnosis: * No Diagnosis Codes entered * Pre-op Meds (From admission, onward) Start Stop Status Route Frequency Ordered 04/15/23 0743 0.9% NaCl injection 3 mL -- Dispensed IK PRE-PROCEDURE MULTIPLE 04/15/23 0743 04/15/23 0838 etomidate (Amidate) injection -- Sent IV PRN 04/15/23 0842 04/15/23 0745 lactated ringers infusion -- Verified IV PRE-OP CONTINUOUS 04/15/23 0742 04/15/23 0838 lidocaine PF (Xylocaine MPF) 1 % injection -- Sent IV PRN 04/15/23 0842 04/15/23 0838 propofol (Diprivan) injection -- Sent IV CONTINUOUS PRN 04/15/23 0842 * No Diagnosis Codes entered * . No Known Allergies Vitals: Patient Vitals for the past 3 hrs: BP Temp Pulse Resp SpO2 04/15/23 0805 (!) 144/106 -- -- -- -- 04/15/23 0803 -- -- -- 18 -- 04/15/23 0743 (!) 191/118 98 ??F (36.7 ??C) 55 -- 99 % Lines, Drains, and Airways Type Details Placement Removal Peripheral IV Date: 04/15/23; Time: 831; Orientation: Anterior, Proximal, Right; Location: Forearm; Placed By: GEOVANY Sykes; Gauge: 20 Gauge; Locals: Injectable; Tolerance: Well 04/15/23831 by Racheal Wayne RN Intraprocedure I/O Totals Intake propofol injection 10mg/mL (ENDO USE) 14.00 mL Total Intake 14 mL Patient Transfer Location: Endo Recovery Transport Airway: supplemental O2 and spontaneous respirations Complications: None Handoff Given? Yes Checklist or Protocol - The bolanos handoff elements that must be included in the transfer of care checklist include: 1. Identification of patient. 2. Identification of responsible practitioner (PACU nurse or advanced practitioner). 3. Discussion of pertinent medical history. 4. Discussion of the surgical/procedure course (procedure, reason for surgery, procedure performed). 5. Intraoperative anesthetic management and issue/concerns. 6. Expectations/Plans for the early post-procedure period. 7. Opportunity for questions and acknowledgement of understanding of report from the receiving PACUteam. ANA PAULA Hodge RS' AGENT documented in 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 Plan of Treatment Not on file documented as of 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 Visit Diagnoses Not on filedocumented in 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 Administered Medications Inactive Administered Medications - up to 3 most recent administrations Medication Order MAR Action Action Date Dose Rate Site etomidate (Amidate) injection Intravenous, PRN, Starting on Sat04/15/23 at 0838, Until Sat04/15/23 at 0843, Anesthesia Intra-op $ Given 04/15/2023 8:38 AM BUYERS' AGENT 10 mg lidocaine PF (Xylocaine MPF) 1 % injection Intravenous, PRN, Starting on Sat04/15/23 at 0838, Until Sat04/15/23 at 0843, Anesthesia Intra-op $ Given 04/15/2023 8:38 AM BUYERS' AGENT 100 mg propofol (Diprivan) injection Intravenous, CONTINUOUS PRN, Starting on Sat04/15/23 at 0838, Until Sat04/15/23 at 0843, Anesthesia Intra-op $ New Bag/Syringe 04/15/2023 8:38 AM BUYERS' AGENT documented in 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 Care Teams Head Refrigerating Engineer Relationship Specialty Start Date End Date Haritha Tse, BLADE OPERATOR-SPECIAL LIBRARIAN [address] [place] [address] [place] [id number] PCP - General Nurse Practitioner 03/25/23 documented as of 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
--- OUTSIDE RECORDS SUMMARY | 2024-03-24 18:51 | XMS_ITS | Encounter Summary ---
Author Organization [facility] Address [address] [place] [address] Care Team Providers Care Parking Supervisor Name Role Phone Haritha Tse Patricia MARAVILLA-PROMOS EXECUTIVE PRODUCER Primary Care Provider + Reason for Visit * Auth/Cert (Routine) Specialty Diagnoses / Procedures Referred By Contac t Referred To Contact Procedures ME ED EGD FLEX TRANSORAL DX ESOPHAGOGASTRODUODENOSCOPY (EGD) DIAGNOSTIC Referral ID Status Reason Start Date Expiration Date Visits Re quested Visits Authorized [id number] 1 1 Encounter Details Date Type Department Care Team (Latest Contact Info) Description 04/15/2023 7:17 AM ENERGY AND CONSERVATION TECHNICIAN - 04/15/2023 9:41 AM ENERGY AND CONSERVATION TECHNICIAN Hospital Encounter [facility] - Endoscopy Surgery [address] [place] [address] Kaiser Salgado, DO [address] [facility] [address] [place] [id number] Surgery General Discharge Disposition: Home or Self Care Social History Tobacco Use Types Packs/Day Years Used Date Smoking Tobacco: Never Smokeless Tobacco: Never Tobacco Cessation:Counseling Given: Not Answered Alcohol Use Standard Drinks/Week Comments Not Currently 10 (1 standard drink = 0.6 oz pure alcohol) Havent drank since Sex and Gender Information Value Date Recorded Sex Assigned at Female 03/18/2023 5:31 PM ENERGY AND CONSERVATION TECHNICIAN Gender Identity Female 03/18/2023 5:31 PM ENERGY AND CONSERVATION TECHNICIAN Sexual Orientation Straight 03/18/2023 5: 31 PM ENERGY AND CONSERVATION TECHNICIAN documented as of 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 Last Filed Vital Signs Vital Sign Reading Time Taken Comments Blood Pressure 138/95 04/15/2023 9:15 AM ENERGY AND CONSERVATION TECHNICIAN Pulse 58 04/15/2023 9:15 AM ENERGY AND CONSERVATION TECHNICIAN Temperature 36.4 ??C (97.6 ??F) 04/15/2023 8:46 AM CS T Respiratory Rate 18 04/15/2023 9:15 AM ENERGY AND CONSERVATION TECHNICIAN Oxygen Saturation 98% 04/15/2023 9:15 AM ENERGY AND CONSERVATION TECHNICIAN Inhaled Oxygen Concentration - - Weight 147.9 kg (326 lb) 04/15/2023 7:43 AM ENERGY AND CONSERVATION TECHNICIAN Height 170.2 cm (5' 7 ) 04/15/2023 7:43 AM ENERGY AND CONSERVATION TECHNICIAN Body Mass Index 51.06 04/15/2023 7:43 AM ENERGY AND CONSERVATION TECHNICIAN documented in 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 Functional Status Functional [...] No 04/15/2023 documented as of 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 Medications at Time of Discharge Medication Sig Dispensed Refills Start Date End Date amLODIPine (Norvasc) 10 MG tablet TAKE 0.5 OF A TABLET BY MOUTH DAILY 03/15/2023 furosemide (Lasix) 20 MG tablet Take 1 tablet every day by oral route for 30 days. metoprolol succinate XL 24hr (Toprol XL) 25 MG tablet metoprolol succinate ER 25 mg tablet,extended release 24 hr oxyCODONE-acetaminophen (Percocet) 5-325 MG tablet Take 1 (one) tablet by mouth 2 times daily as needed For pain. 03/04/2023 rivaroxaban (Xarelto) 20 MG tablet every 24 hours vitamin D, ergocalciferol, (Drisdol) 1.25 MG (02861 UT) capsuleIndications:Morbi d obesity (HCC),Bariatric surgery status,Vitamin deficiency,Vitamin D deficiency,Postsurgical malabsorption (HCC) Take 1 (one) capsule by mouth every 7 days 12 capsule 03/26/2023 zolpidem (Ambien) 10 MG tablet 01/31/2023 documented as of 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 H&P Notes * Damian Kaiser R, DO - 04/15/2023 8:35 AM CST ENDOSCOPY PRE-PROCEDURE MEDICAL HISTORY & PHYSICAL Tiarra HAN 04/15/2023 BP (!) 144/106 Pulse 55 Temp 98 ??F (36.7 ??C) (Temporal) Resp 18 Ht 1.702 m (5' 7 ) Wt (!) 147.9 kg (326 lb) SpO2 99% Past Medical History: Diagnosis Date ??? Anxiety ??? Congestive heart failure (CMS-HCC) history ??? DVT (deep venous thrombosis) (CMS-HCC) ??? GERD (gastroesophageal reflux disease) ??? HTN (hypertension) ??? Morbid obesity due to excess calories (CMS-HCC) ??? Osteoarthritis ??? Pulmonary emboli (CMS-HCC) has IVC filter Past Surgical History: Procedure Laterality Date ??? BARIATRIC SURGERY, SEDRICK-EN-Y 1999 Dr. Samsno ??? Section x3 ??? OTHER SURGERY removal of blood clots of left leg No current facility-administered medications on file prior to encounter. Current Outpatient Medications on File Prior to Encounter Medication Sig Dispense Refill ??? amLODIPine (Norvasc) 10 MG tablet TAKE 0.5 OF A TABLET BY MOUTH DAILY ??? furosemide (Lasix) 20 MG tablet Take 1 tablet every day by oral route for 30 days. ??? metoprolol succinate XL 24hr (Toprol XL) 25 MG tablet metoprolol succinate ER 25 mg tablet,extended release 24 hr ??? oxyCODONE-acetaminophen (Percocet) 5-325 MG tablet Take 1 (one) tablet by mouth 2 times daily as needed For pain. ??? rivaroxaban (Xarelto) 20 MG tablet every 24 hours ??? zolpidem (Ambien) 10 MG tablet No Known Allergies Physicial Exam: General appearance: alert, cooperative, no distress Lungs: breath sounds normal and symmetric; no rales or wheezes Heart: regular rhythm, normal S1 and S2, without murmurs, gallops or rubs Abdomen: soft without mass, non-tender, with normal bowel sounds Extremities: no clubbing, cyanosis or edema ASA Evaluation and Anesthesia Plan: Anesthesia administered per Anesthesia Department Indication(s) for Procedure: Pre-operative assessment for bariatric surgery Procedure Planned: EGD Kaiser Salgado DO 04/15/2023 8:35 AM GY AND CONSERVATION TECHNICIAN documented in 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 Procedure Notes * Kaiser Salgado DO - 04/15/2023 8:46 AM CSTAssociated Order(s): EGD EGD completed. Biopsies pending. A full PDF copy of the report with photos is in the results and/or media tab for your review. Please refer to this for full details of the procedure. Follow up with Dr. Prajapati as scheduled. Kaiser Salgado DO 04/15/2023 8:46 AM GY AND CONSERVATION TECHNICIAN documented in 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 Plan of Treatment Not on file documented as of 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 Procedures Procedure Name Priority Date/Time Associated Diagnosis Comments CARDIAC RHYTHM STRIP ORDER 05/03/2023 2:39 PM ENERGY AND CONSERVATION TECHNICIAN PATHOLOGY/CYTOLOGY REPORT ORDER 04/16/2023 10:06 PM ENERGY AND CONSERVATION TECHNICIAN HELICOBACTER PYLORI UREASE (STL) STAT 04/15/2023 8:39 AM ENERGY AND CONSERVATION TECHNICIAN Morbid obesity (HCC) ME EGD FLEX TRANSORAL W BX SNGL OR MULT 04/15/2023 8:35 AM ENERGY AND CONSERVATION TECHNICIAN ME ED EGD FLEX TRANSORAL DX 04/15/2023 8:35 AM ENERGY AND CONSERVATION TECHNICIAN EGD Routine 04/15/2023 8:32 AM ENERGY AND CONSERVATION TECHNICIAN documented in 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 Results * CARDIAC RHYTHM STRIP ORDER (05/03/2023 2:39 PM ENERGY AND CONSERVATION TECHNICIAN) Narrative 05/03/2023 2:39 PM ENERGY AND CONSERVATION TECHNICIAN Ordered by an unspecified provider. Scanned Document CARDIAC SERVICES ORD ERABLES * PATHOLOGY/CYTOLOGY REPORT ORDER (04/16/2023 10:06 PM ENERGY AND CONSERVATION TECHNICIAN) Narrative 04/16/2023 10:06 PM ENERGY AND CONSERVATION TECHNICIAN Ordered by an unspecified provider. Scanned Document LAB - PATHOLOGY/CYTO LOGY ORDERABLES * HELICOBACTER PYLORI UREASE (STL) (04/15/2023 8:39 AM ENERGY AND CONSERVATION TECHNICIAN) Helicobacter pylori Urease Initial Negative Negative 04/16/2023 9:12 AM ENERGY AND CONSERVATION TECHNICIAN [facility] Helicobacter pylori Urease Final Negative Negative 04/16/2023 9:12 AM ENERGY AND CONSERVATION TECHNICIAN [facility] Microbiology GASTRIC BIOPSY SPECIMEN / Unknown 04/15/2023 8:39 AM ENERGY AND CONSERVATION TECHNICIAN 04/15/2023 2:46 PM ENERGY AND CONSERVATION TECHNICIAN Kaiser Salgado DO LAB - MICROBIOLOGY ORDERABLES [facility] [address] [id number] * EGD (04/15/2023 8:32 AM ENERGY AND CONSERVATION TECHNICIAN) Report Endoscopy POC _ Patient Name: Azael , ??Tiarra CheryBea ? Procedure Date: 04/15/2023 8:32 AM ? Date of : 1970 ?Admit Type: Outpatient Age: 52 ? Room: ROOM 3 Gender: Female ?Attending MD: Kaiser Salgado DO, [id number] _ Procedure: ? Upper GI endoscopy Indications: ? Assessment following Sedrick-en-Y gastrojejunostomy Providers: ? Kaiser Salgado, DO, Carmen Hall RN, Jada ? GEOVANY Toribio, Jazmin Lopez, NA (Anesthesia ? Staff) Medicines: ? Monitored Anesthesia Care Complications: ? No immediate complications. _ Estimated Blood Loss: ? Estimated blood loss was minimal. Procedure: ? Pre-Anesthesia Assessment: ? - Prior to the procedure, a History and Physical was ? performed, and patient medications and allergies were ? reviewed. The patient's tolerance of previous ? anesthesia was also reviewed. The risks and benefits ? of the procedure and the sedation options and risks ? were discussed with the patient. All questions were ? answered, and informed consent was obtained. Prior ? Anticoagulants: The patient has taken no anticoagulant ? or antiplatelet agents. ASA Grade Assessment: III - A ? patient with severe systemic disease. After reviewing ? the risks and benefits, the patient was deemed in ? satisfactory condition to undergo the procedure. ? After obtaining informed consent, the endoscope was ? passed under direct vision. Throughout the procedure, ? the patient's blood pressure, pulse, and oxygen ? saturations were monitored continuously. The Endoscope ? was introduced through the mouth, and advanced to the ? efferent jejunal loop. The upper GI endoscopy was ? accomplished without difficulty. The patient tolerated ? the procedure well. ? Findings: ? The examined esophagus was normal. ? The gastric pouch was non-dilated and measured about 7-8 cm in length. ? The gastrojejunostomy was dilated at 25 mm without evidence of marginal ? ulcers. No dilated blind limb was noted. No abnormalities within the ? proximal sedrick limb. ? A medium-sized hiatal hernia was present. ? Scattered mild inflammation characterized by erythema was found in the ? stomach. Biopsies were taken with a cold forceps for Helicobacter pylori ? testing using CLOtest. Estimated blood loss was minimal. _ ? Impression: ?- Normal esophagus. ? - Dilated gastrojejunostomy ? - Medium-sized hiatal hernia. ? - Gastritis. Biopsied. Recommendation: ?- Discharge patient to home (ambulatory). ? - Resume previous diet today. ? - Continue present medications. ? - Return to Bariatric clinic as previously scheduled. ? Procedure Code(s): ? --- Professional --- ? 45262 ? --- Technical --- ? 86092 Diagnosis Code(s): ? --- Professional --- ? K44.9 ? K29.70 ? Z09 ? Z98.0 ? --- Technical --- ? K44.9 ? K29.70 ? Z09 ? Z98.0 CPT copyright 2020 [employer]. All rights reserved. The codes documented in this report are preliminary and upon senior research associate review may be revised to meet current compliance requirements. _ Kaiser Salgado DO 04/15/2023 8:45:40 AM This report has been signed electronically. Number of Addenda: 0 Note Initiated On: 04/15/2023 8:32 AM [facility] 04/15/2023 8:32 AM ENERGY AND CONSERVATION TECHNICIAN Narrative Procedure Note Kaiser Salgado DO - 04/15/2023 8:46 AM CST EGD completed. Biopsies pending. A full PDF copy of the report with photos is in the results and/or mediatab for your review. Please refer to this for full details of theprocedure. Follow up with Dr. Prajapati as scheduled. Kaiser Salgado DO 04/15/2023 8:46 AM Kaiser Salgado DO GI PROCEDURE ORDERA BLES [facility] documented in 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 Visit Diagnoses Diagnosis Morbid obesity (HCC) Morbid obesity documented in 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 Administered Medications Inactive Administered Medications - up to 3 most recent administrations Medication Order MAR Action Action Date Dose Rate Site 0.9% NaCl injection 3 mL 3 mL, Intracatheter, PRE-PROCEDURE MULTIPLE, Starting on Sat04/15/23 at 0743, Until Sat04/15/23 at 1042, For Saline Lock flushes if one is inserted for Bronchoscopy/Endoscopy procedure., Pre-procedure (GI) lactated ringers infusion at 20 mL/hr, Intravenous, PRE-OP CONTINUOUS, Starting on Sat04/15/23 at 0745, Until Sat04/15/23 at 1042, Pre-op $ New Bag/Syringe 04/15/2023 8:33 AM ENERGY AND CONSERVATION TECHNICIAN 20 mL/hr documented in 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 Active and Recently Administered Medications Times are shown in ENERGY AND CONSERVATION TECHNICIAN. Scheduled Medication Order 04/13/2023 04/14/2023 04/15/2023 0.9% NaCl injection 3 mL 3 mL, Intracatheter, PRE-PROCEDURE MULTIPLE, Starting on Sat04/15/23 at 0743, Until 04/15/23 at 1042, For Saline Lock flushes if one is inserted for Bronchoscopy/Endoscopy procedure., Pre-procedure (GI) Continuous Medication Order 04/13/2023 04/14/2023 04/15/2023 lactated ringers infusion at 20 mL/hr, Intravenous, PRE-OP CONTINUOUS, Starting on Sat04/15/23 at 0745, Until Sat04/15/23 at 1042, Pre-op 0833 ($ New Bag/Syri nge - Provider: Racheal Wayne RN) documented in 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 Care Teams Parking Supervisor Relationship Specialty Start Date End Date Haritha Tse APRN-PROMOS EXECUTIVE PRODUCER [facility] [place] [address] PCP - General Nurse Practitioner 03/25/23 documented as of 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
--- OUTSIDE RECORDS SUMMARY | 2024-03-24 18:51 | XMS_ITS | Encounter Summary ---
Author Organization [facility] Address [address] [place] [address]. [place], [place] [address] [place] [address] Care Team Providers Care Supervisor Chassis Assembly Name Role Phone None, Provider Primary Care Provider Unavaila ble Encounter Details Date Type Department Care Team (Late st Contact Info) Description 10/06/2019 Scan [facility] at [facility], [address] [address] Scanned, Documents Social History Tobacco Use Types Packs/Day Years Used Date Smoking Tobacco: Never Smokeless Tobacco: Never Alcohol Use Standard Drinks/Week Comments Yes 0 (1 standard drink = 0.6 oz pure alcohol) DAILY, one bottle of wine daily Comments No Sex and Gender Information Value Date Recorded Sex Assigned at Not on file Legal Sex Female 11:02 AM CDT Gender Identity Not on file Sexual Orientation Not on file documented as of 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 Plan of Treatment Not on file documented as of 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 Visit Diagnoses Not on filedocumented in 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 Care Teams Supervisor Chassis Assembly Relationship Specialty Start Date End Date None, Provider, PCP - General 01/06/18 documented as of 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
--- OUTSIDE RECORDS SUMMARY | 2024-03-24 18:51 | XMS_ITS | Encounter Summary ---
Author Organization [facility] Health Address [address] [facility] [place] [address] Care Team Providers Care Barn Boss Name Role Phone AylinHaritha sarkar Patricia [facility] Primary Care Provider + Encounter Details Date Type Department Care Team (Late st Contact Info) Description 03/26/2023 Orders Only [facility] [address] [facility] [address] [place] [address] aRdha Oglesby, CONFERENCE CENTER MANAGERMOUNT AUBURN HOSP[facility] [address] [facility] [address] [place] [address] Morbid obesity (HCC) ; Bariatric surgery status; Vitamin deficiency; Vitamin D deficiency; Postsurgical malabsorption (HCC) Social History Tobacco Use Types Packs/Day Years Used Date Smoking Tobacco: Never Smokeless Tobacco: Never Alcohol Use Standard Drinks/Week Comments Yes 10 (1 standard drink = 0.6 oz pu re alcohol) bottle of wine daily Sex and Gender Information Value Date Recorded Sex Assigned at Female 03/18/2023 5:31 PM DOUGH CATCHER Gender Identity Female 03/18/2023 5:31 PM DOUGH CATCHER Sexual Orientation Straight 03/18/2023 5: 31 PM DOUGH CATCHER documented as of 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 Functional Status [...] Yes 03/17/2018 documented as of 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 Plan of Treatment Scheduled Orders Name Type Priority Associated Diagnoses Orde r Schedule VITAMIN D 25-HYDROXY Lab Routine Morbid obesity (HCC) Bariatric surgery status Vitamin deficiency Vitamin D deficiency Postsurgical malabsorption (HCC) Ordered: 03/26/2023 VITAMIN A Lab Routine Morbid obesity (HCC) Bariatric surgery status Vitamin deficiency Vitamin D deficiency Postsurgical malabsorption (HCC) Ordered: 03/26/2023 VITAMIN B1 Lab Routine Morbid obesity (HCC) Bariatric surgery status Vitamin deficiency Vitamin D deficiency Postsurgical malabsorption (HCC) Ordered: 03/26/2023 FERRITIN Lab Routine Morbid obesity (HCC) Bariatric surgery status Vitamin deficiency Vitamin D deficiency Postsurgical malabsorption (HCC) Ordered: 03/26/2023 IRON + TIBC PANEL Lab Routine Morbid obesity (HCC) Bariatric surgery status Vitamin deficiency Vitamin D deficiency Postsurgical malabsorption (HCC) Ordered: 03/26/2023 CBC W/O DIFFERENTIAL Lab Routine Morbid obesity (HCC) Bariatric surgery status Vitamin deficiency Vitamin D deficiency Postsurgical malabsorption (HCC) Ordered: 03/26/2023 documented as of 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 Visit Diagnoses Diagnosis Morbid obesity (HCC)- Primary Morbid obesity Bariatric surgery status Vitamin deficiency Unspecified vitamin deficiency Vitamin D deficiency Postsurgical malabsorption (HCC) Other and unspecified postsurgical nonabsorption documented in 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 Care Teams Barn Boss Relationship Specialty Start Date End Date Haritha Tse APRN-FREELANCE WRITER [address] [facility] [address] [place] [address] PCP - General Nurse Practitioner 03/25/23 documented as of 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
--- OUTSIDE RECORDS SUMMARY | 2024-03-24 18:51 | XMS_ITS | Encounter Summary ---
Author Organization [facility] Health Address [address] [place] [address] Care Team Providers Care Informatica Mdm Architect Name Role Phone Haritha Tse Primary Care Provider + Encounter Details Date Type Department Care Team (Latest Contact Info) Description 01/16/2024 Travel Social History Tobacco Use Types Packs/Day Years Used Date Smoking Tobacco: Never Smokeless Tobacco: Never Alcohol Use Standard Drinks/Week Comments Not Currently 10 (1 standard drink = 0.6 oz pure alcohol) Havent drank since Thanksgi Sex and Gender Information Value Date Recorded Sex Assigned at Female 03/18/2023 5:31 PM BOY'S ADVISER Gender Identity Female 03/18/2023 5:31 PM BOY'S ADVISER Sexual Orientation Straight 03/18/2023 5: 31 PM BOY'S ADVISER documented as of 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 Functional Status [...] No 04/15/2023 documented as of 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 Plan of Treatment Not on file documented as of 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 Visit Diagnoses Not on filedocumented in 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 Care Teams Informatica Mdm Architect Relationship Specialty Start Date End Date Haritha Tse APRN-CNP [address] [place] [address] PCP - General Nurse Practitioner 03/25/23 documented as of 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
--- OUTSIDE RECORDS SUMMARY | 2024-03-24 18:51 | XMS_ITS | Clinical Summary ---
Author Organization [facility] Address [address] [facility] [place] [address] Care Team Providers Care Claims Associate Name Role Phone AylinHaritha sarkar Patricia MARAVILLA-FACTORY MAINTENANCE MANAGER Primary Care Provider + Source Comments [facility],non-owned Affiliates and Associated Physician Practices is amultiple site organization consisting of ambulatory clinics and hospital sitesin [place], [place], [place] and [place]. This disclosure is being madepursuant to the Care Everywhere program and may not contain all information available regarding this patient. 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 03/17/2018 Encounters Date Type Department Care Team Description 01/16/2024 12:15 PM CDT Clinical Support [facility] Services [id number] [facility] [address] [place] [id number] Morbid obesity (HCC) 01/16/2024 Travel from Last 3 Months Social History Tobacco Use Types Packs/Day Years Used Date Smoking Tobacco: Never Smokeless Tobacco: Never Tobacco Cessation:Counseling Given: Not Answered Alcohol Use Standard Drinks/Week Comments Not Currently 10 (1 standard drink = 0.6 oz pure alcohol) Havent drank since Sex and Gender Information Value Date Recorded Sex Assigned at Female 03/18/2023 5:31 PM NUCLEAR POWERPLANT MECHANIC HELPER Gender Identity Female 03/18/2023 5:31 PM NUCLEAR POWERPLANT MECHANIC HELPER Sexual Orientation Straight 03/18/2023 5: 31 PM NUCLEAR POWERPLANT MECHANIC HELPER Last Filed Vital Signs Vital Sign Reading Time Taken Comments Blood Pressure 138/95 04/15/2023 9:15 AM NUCLEAR POWERPLANT MECHANIC HELPER Pulse 58 04/15/2023 9:15 AM NUCLEAR POWERPLANT MECHANIC HELPER Temperature 36.4 ??C (97.6 ??F) 04/15/2023 8:46 AM CS T Respiratory Rate 18 04/15/2023 9:15 AM NUCLEAR POWERPLANT MECHANIC HELPER Oxygen Saturation 98% 04/15/2023 9:15 AM NUCLEAR POWERPLANT MECHANIC HELPER Inhaled Oxygen Concentration - - Weight 135.2 kg (298 lb) 01/16/2024 12:24 PM CDT Height 170.2 cm (5' 7 ) 01/16/2024 12:24 PM CDT Body Mass Index 46.67 01/16/2024 12:24 PM CDT Plan of Treatment Health Maintenance Due Date Last Done Comments COLOGUARD (AGES 45-75) - COLON CA SCREENING 1969 COLON MONITORING 1969 COLONOSCOPY - COLON CA SCREENING 1969 CT COLONOGRAPHY - COLON CA SCREENING 1969 Colorectal Cancer Screening 1969 FIT - COLON CA SCREENING 1969 FLEX SIG - COLON CA SCREENING 1969 LIPID TESTING 1969 MAMMOGRAM 1969 PAP SMEAR 1969 HIV SCREENING 1984 HEPATITIS C SCREENING 12/25/1987 DTAP/TDAP/TD VACCINES (1 - Tdap) 1988 HEPATITIS B VACCINE (1 of 3 - 19+ 3-dose series) 1988 ZOSTER VACCINE (1 of 2) 12/30/2019 DEPRESSION SCREENING 04/08/2023 MEDICARE AWV ? CALENDAR YEAR 2023 COVID-19 VACCINE (3 - 2023- season) 2023 07/27/2020, 06/29/2020 SCREENING FOR DIABETES 03/07/2026 , 04/03/2018, 03/19/2018, Additional history exists INFLUENZA VACCINE Completed 01/10/2024, , 01/20/2022, Additional history exists HIB VACCINE Aged Out No longer eligi ble based on patient's age to complete this topic HPV VACCINE Aged Out No longer eligi ble based on patient's age to complete this topic MENINGOCOCCAL VACCINE Aged Out No zaire asad eligible based on patient's age to complete this topic PNEUMOCOCCAL VACCINE Aged Out No long er eligible based on patient's age to complete this topic Procedures Procedure Name Priority Date/Time Associated Diagnosis Comments COMPREHENSIVE METABOLIC PANEL Routine 03/07/2023 1:26 PM NUCLEAR POWERPLANT MECHANIC HELPER Bariatric surgery status Intestinal malabsorption, unspecified type (HCC) from Last 3 Months or Most Recently Relevant to Health Maintenance Results * (ABNORMAL) COMPREHENSIVE METABOLIC PANEL (03/07/2023 1:26 PM NUCLEAR POWERPLANT MECHANIC HELPER) Glucose 104(H) 70 - 99 mg/dL [facility] [...] BLOOD SPECIMEN / Unknown 03/07/2023 1:26 PM NUCLEAR POWERPLANT MECHANIC HELPER 03/07/2023 Narrative Resulting Agency Comment Lab Testing performed at: [facility] [facility] [id number] Suresh Prajapati MD LAB - CHEMISTRY ANNETTE ENGLISH [facility] INSURANCE BILL [address] [place] [address] from Last 3 Months or Most Recently Relevant to Health Maintenance Care Teams Claims Associate Relationship Specialty Start Date End Date Haritha Tse, SPINNING FRAME TENDER-FACTORY MAINTENANCE MANAGER [address] [facility] [place] [address] PCP - General Nurse Practitioner 03/25/23
--- OUTSIDE RECORDS SUMMARY | 2024-03-24 18:51 | XMS_ITS | Clinical Summary ---
Author Organization [facility] Address [address] [place] [address]. [place], [place] [address] [place] [address] Care Team Providers Care Program Manager Slp Name Role Phone None, Provider MD Primary Care Provider Unavaila ble Allergies No known active allergies Medications ALPRAZolam 0.5 MG tablet Take 0.5 mg by mouth 3 (three) times daily as needed for Anxiety. Active albuterol sulfate HFA 108 (90 Base) MCG/ACT inhaler Inhale 2 puffs into the lungs every 6 (six) hours as needed for Wheezing or Shortness of breath. Active fluoxetine 20 MG capsule Take 20 mg by mouth daily. Active hydrocodone-ellis taminophen 5-325 MG tablet Take 1 tablet by mouth every 6 (six) hours as needed for Pain. 8 tablet 8 Active Family History Medical History Relation Comments Hypertension Father Hypertension Mother Relation Status Comments Father Alive Mother Alive Social History Tobacco Use Types Packs/Day Years [...] on file Sexual Orientation Not on file Last Filed Vital Signs Vital Sign Reading Time Taken Comments Blood Pressure 127/56 03/28/2018 5:50 PM FIRE CHIEF DEPUTY Pulse 75 03/28/2018 5:50 PM FIRE CHIEF DEPUTY Temperature 36.7 ??C (98 ??F) 03/28/2018 2:19 PM FIRE CHIEF DEPUTY Respiratory Rate 18 03/28/2018 5:50 PM FIRE CHIEF DEPUTY Oxygen Saturation 98% 03/28/2018 5:50 PM FIRE CHIEF DEPUTY Inhaled Oxygen Concentration - - Weight 136.1 kg (300 lb) 03/28/2018 2:19 PM FIRE CHIEF DEPUTY Height 170.2 cm (5' 7 ) 03/28/2018 2:19 PM FIRE CHIEF DEPUTY Body Mass Index 46.99 03/28/2018 2:19 PM FIRE CHIEF DEPUTY Plan of Treatment Health Maintenance Due Date Last Done Comments Cervical Cancer Screening Pa p Smear (Age 30 to 64) Every 3 Years 1969 Colorectal Cancer Screening Colonoscopy (10 Years) 1969 Annual Physical 1972 Hepatitis C 12/30/1987 DTaP, Tdap and Td Vaccines ( 1 - Tdap) 1988 Hepatitis B Vaccines (1 of 3 - 19+ 3-dose series) 1988 Cervical Cancer Screening Pa p with HPV Testing (Age 30 to 64) Every 5 Years 12/30/1999 Cervical Cancer Screening with HPV 12/30/1999 Mammogram Screening 2009 Zoster Vaccines (1 of 2) 12/30/2019 COVID-19 Vaccine ( - 2023-2 5 season) 2023 Influenza Adult (#1) 2024 Meningococcal Vaccine Aged Out No zaire asad eligible based on patient's age to complete this topic Pneumococcal Vaccine: Pediat rics (0 to 5 Years) and At-Risk Patients (6 to 64 Years) Aged Out No longer eligible b ased on patient's age to complete this topic RSV Immunizations Under 20 Months Aged Out No longer eligible based on patient's age to complete this topic Insurance Care Teams Program Manager Slp Relationship Specialty Start Date End Date None, Provider, PCP - General 01/06/18
--- OUTSIDE RECORDS SUMMARY | 2024-03-24 18:51 | XMS_ITS | Encounter Summary ---
Author Organization [facility] Health Address [address] [facility] [place] [address] Care Team Providers Care Molybdenum Steamer Operator Name Role Phone Haritha Tse Patricia MARAVILLA-SURFACE GRINDER Primary Care Provider + Encounter Details Date Type Department Care Team (Late st Contact Info) Description 09/12/2023 9:00 AM CDT Office Visit [facility] [address] [place] [address] [address] [place] [address] Morbid obesity (HCC) (Primary Dx) Social History Tobacco Use Types Packs/Day Years Used Date Smoking Tobacco: Never Smokeless Tobacco: Never Alcohol Use Standard Drinks/Week Comments Not Currently 10 (1 standard drink = 0.6 oz pure alcohol) Havent drank since Sex and Gender Information Value Date Recorded Sex Assigned at Female 03/18/2023 5:31 PM ACCOUNTANT PROPERTY Gender Identity Female 03/18/2023 5:31 PM ACCOUNTANT PROPERTY Sexual Orientation Straight 03/18/2023 5: 31 PM ACCOUNTANT PROPERTY documented as of 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 Functional Status [...] as of 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 Progress Notes * Darshana Prado, MATERNAL FETAL PHYSICIAN - 09/10/2023 6:44 AM CDT Name: Tiarra Han Date of : 68 Surgeon: Suresh Prajapati Date: 09/12/23 Reason for visit: Pre-Surgery Psychological Evaluation: Revision Surgical decision and reason for surgery: The pt is seeking a revision to her ORYGB in 1999. Pt's starting weight was around 356 lbs and her lowest weight achieved was 211 lbs. Pt maintained this weight for 5-6 years. The pt has made the decision to have a revision because her weight has crept backup and she needs two knee replacements but needs to lose weight prior to having them replaced. The pt reported comorbid conditions of Benign Essential Hypertension, heartburn, Dyspnea on exertion, Multiple arthropathies, Morbid Obesity and Blood clots. Pt has also developed a medium hiatal hernia. Current Weight: 328 lbs 12.8 oz BMI: 51.50 Goal Weight: 200 lbs Beyond weight related conditions, patients health hx is otherwise unremarkable. No previous hx of non-compliance with medical care. Family/Home/Support Environment: The pt is supported in her decision to have this revision by her 3 children who are 38, 30 and 15. Pt is single and lives alone with her 15 year old daughter. She noted her middle son is often at herhouse as well. 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 Has KANE. Pt is currently on disability for blood clots since 2019. Patient has no hx of work-adjustment difficulties on any of her jobs. Mental Health Issues: Pt reported she had some Sx of anxiety and depression when she was first put on disability. She explained that she was living in [place] at the time and lost her home and job and had to move back to [facility]. She doesn't recall taking any medications at that time or ever but [facility] notes state she was taking lexapro. The pt stated when she moved back to [facility], she was drinking more and noted she could drink a bottle of wine per day. When asked about prior cocaine use, the pt noted she did it several times when her sister offered it to her at this time of her life. She noted it was not for me and has not done any since that time period. [facility] notes stated she has had a couple of rehab stays forETOH with withdrawal. Pt does not feel her ETOH use was problematic. She explained that if she had a bottle of wine, it would be over an entire evening and not enough to feel intoxicated. Pt denied any problematic substance use at this time. She denied any current MH Sx or issues. Pt noted her sleep habits to be poor and she does take Ambien. Patient denied auditory or visual hallucinations; and denied losing blocks of time where she can not remember who or where she is. Patient has never been hospitalized for psychiatric reasons, and there is no history of prior suicide/homicide ideation or attempt. The patient was informed that the surgery can produce mild symptoms of anxiety and depression. The patient was asked to utilize support resources if necessary or if symptoms persist or increase in severity. Substance Use Issues: Current alcohol use: maybe on a weekend with family and is just one drink. Not drinking every day. Current medical/recreational drugs use: cocaine in the past but none since 2018. Current tobacco use: none The pt has no current problems related to alcohol, drug or prescription mis-use. The patient was informed of addiction transference and that the absorption rate of alcohol will be much higher after surgery. The patient is aware that alcohol is not to be consumed for at least one year after surgery and that carbonated beverages are to be eliminated entirely. Weight and Yfgtyu-Yseu-Wxvgiik History: Family Hx of Obesity: yes, her older brother has had weight loss surgery, younger brother is overweight, mother is overweight, father is thin. Mostly the women in the family Patient Obese since: right after highschool. She played basketball, volleyball, and softball. She noted getting at age 19 and had her first son three years later. During this period she started gaining weight. High school weight: 215 lbs Heaviest Weight Since 20: 400 lbs Lowest weight in the past 2-3 years: 240 lbs Previous Weight Loss Efforts: ORYGB, weight watchers, portion control Most Weight Ever lost: 145 lbs Exercise and other sources of physical activity: pt ambulates on occasion with walker due to bad knees. She does do some chair exercises on occasion for movement. She tries to walk her dog when she can. The patient feels that the biggest contributor to her weight issue is inactivity due to knees, which is also her biggest barrier to losing weight. When asked how this surgery is going to be differentfrom her previous weight loss surgery, the pt stated that it will be different because she is assuming it will be the same as her initial surgery but feels she will be more conscious of her choices and will be more prepared in advance. Pt noted her portions are still small. Pt noted she is not a sweets eater. Her weakness is starchy food such as potatoes. She is not a bread eater. She is trying to get away from pork and prefers, chicken, turkey and fish. She does like fried food but is trying to bake more often. She eats at home most often and does the cooking. Pt drinks mostly water and crystal light. She does like apple juiceand provider encouraged her to dilute it. B:2 eggs with two strips turkey wren L: broccoli cheese rice with baked fish (around 3 pm) D: she will eat the rest of her late lunch around 10 pm. Provider suggested moving this up but she noted she goes to bed after midnight. Patterns of Distorted Eating: Enemas/Laxatives/Diuretic Misuse: never Purging/induced Vomiting: never Anorexia/Restricting: never Emotional Eating: denies Realistic verse unrealistic expectations for weight loss, the surgery and adjustment after surgery were discussed. Making manageable, realistic changes was encouraged. The concept of backsliding and the reasons how a backslide could occur were discussed with patient.Keeping a food journal, taking pictures, meal planning, weighing regularly and attending support groups were suggested as strategies for preventing or reducing backsliding behaviors. Patient was informed about possible hair thinning, loose skin and recommended post op recommended appointments. Patient is not currently and has been counseled to avoid for a minimum of one (1) year following bariatric surgery. Surgery Perspective/Understanding: Patient appears informed regarding the post-op dietary requirements and appears to have ample understanding of the consequences of not following all post-op requirements exactly as prescribed. She reports realistic surgical goals and expectations; and appears to understand the surgical logistics and risks associated with the bariatric surgery. Mental Status Patient appearance: appropriate Orientation: Time, Place, Person, Situation Behavior: Within normal limits Speech: appropriate Affect: appropriate Mood: euthymic Memory: in tact Mental Awareness: clear Intelligence: average Attitude: cooperative Attention: focused Reasoning: good Judgement: good Impulse Control: good Insight: good Self-perception: realistic Thought Process: Logical Thought Content: Within Normal Limits DSM-5: E66.01 Obesity Summery/Recommendations Patient appears to be a low surgical risk and an appropriate candidate for this surgery based on this interview. Patient noted no current compliance issues or any anticipated issues that would prevent adherence to protocol after surgery. There do not appear to be any contraindications. Psychological Clearance is therefore granted. Darshana Prado LPC, [facility] Licensed Professional Counselor Board Certified Bariatric Counselor Psychological Review Cleared_X_ Not cleared, additional visit(s) required ___ Bariatric Case Conference review required ___ Follow up scheduled ____ documented in 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 Plan of Treatment Not on file documented as of 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 Visit Diagnoses Diagnosis Morbid obesity (HCC)- Primary Morbid obesity documented in 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 Care Teams Molybdenum Steamer Operator Relationship Specialty Start Date End Date Haritha Tse, PATIENT RESOURCE SPECIALIST-SURFACE GRINDER [address] [place] [address] PCP - General Nurse Practitioner 03/25/23 documented as of 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
--- OUTSIDE RECORDS SUMMARY | 2024-03-24 18:51 | XMS_ITS | Encounter Summary ---
Author Organization [facility] Address [address] [address] Care Team Providers Care Welding Machine Feeder Name Role Phone Haritha Tse [employer] MAN Primary Care Provider + Reason for Visit * Auth/Cert (Routine) Specialty Diagnoses / Procedures Referred By Contac t Referred To Contact Procedures AL ED EGD FLEX TRANSORAL DX ESOPHAGOGASTRODUODENOSCOPY (EGD) DIAGNOSTIC Referral ID Status Reason Start Date Expiration Date Visits Re quested Visits Authorized [id number] 1 1 Encounter Details Date Type Department Care Team (Latest Contact Info) Description 04/15/2023 9:20 AM OCCUPATIONAL THERAPY INSTRUCTOR - 04/15/2023 9:40 AM OCCUPATIONAL THERAPY INSTRUCTOR Surgery [facility] - Endoscopy Surgery [address] [place] [address] Kaiser Salgado DO [address] [facility] [address] [place] [id number] ESOPHAGOGASTRODUODENOSCOPY (EGD) DIAGNOSTIC Surgery Details Date/Time Status Location OR Service Patient Class Case Class Case Type Trauma Case? 04/15/2023 9:20 AM [facility] Endo 02 Gastroenterology Surgery Day Care Elective > 5 days Panel 1 Procedure LRB Anes Op Region Wound Class Comments ESOPHAGOGASTRODUODENOSCOPY ( EGD) DIAGNOSTIC N/A MAC Esophagus Clean Contaminated ESOPHAGOGASTRODUODENOSCOPY ( EGD) BIOPSY Clean Contaminated Surgeon Surgeon Role Service Panel Kaiser Salgado DO Primary Gastroenterology 1 documented in 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 Social History Tobacco Use Types Packs/Day Years Used Date Smoking Tobacco: Never Smokeless Tobacco: Never Tobacco Cessation:Counseling Given: Not Answered Alcohol Use Standard Drinks/Week Comments Not Currently 10 (1 standard drink = 0.6 oz pure alcohol) Havent drank since Sex and Gender Information Value Date Recorded Sex Assigned at Female 03/18/2023 5:31 PM OCCUPATIONAL THERAPY INSTRUCTOR Gender Identity Female 03/18/2023 5:31 PM OCCUPATIONAL THERAPY INSTRUCTOR Sexual Orientation Straight 03/18/2023 5: 31 PM OCCUPATIONAL THERAPY INSTRUCTOR documented as of 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 Last Filed Vital Signs Vital Sign Reading Time Taken Comments Blood Pressure 138/95 04/15/2023 9:15 AM OCCUPATIONAL THERAPY INSTRUCTOR Pulse 58 04/15/2023 9:15 AM OCCUPATIONAL THERAPY INSTRUCTOR Temperature 36.4 ??C (97.6 ??F) 04/15/2023 8:46 AM CS T Respiratory Rate 18 04/15/2023 9:15 AM OCCUPATIONAL THERAPY INSTRUCTOR Oxygen Saturation 98% 04/15/2023 9:15 AM OCCUPATIONAL THERAPY INSTRUCTOR Inhaled Oxygen Concentration - - Weight 147.9 kg (326 lb) 04/15/2023 7:43 AM OCCUPATIONAL THERAPY INSTRUCTOR Height 170.2 cm (5' 7 ) 04/15/2023 7:43 AM OCCUPATIONAL THERAPY INSTRUCTOR Body Mass Index 51.06 04/15/2023 7:43 AM OCCUPATIONAL THERAPY INSTRUCTOR documented in 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 Functional Status Functional [...] hours vitamin D, ergocalciferol, (Drisdol) 1.25 MG (15012 UT) capsuleIndications:Morbi d obesity (HCC),Bariatric surgery status,Vitamin deficiency,Vitamin D deficiency,Postsurgical malabsorption (HCC) Take 1 (one) capsule by mouth every 7 days 12 capsule 03/26/2023 zolpidem (Ambien) 10 MG tablet 01/31/2023 documented as of 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 H&P Notes * Kaiser Salgado, DO - 04/15/2023 8:35 AM CST ENDOSCOPY [...] Date ??? BARIATRIC SURGERY, SEDRICK-EN-Y 1999 Dr. Samson ??? Section x3 ??? OTHER SURGERY removal [...] EGD Kaiser Salgado DO 04/15/2023 8:35 AM PATIONAL THERAPY INSTRUCTOR documented in 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 Procedure Notes * Kaiser Salgado DO - 04/15/2023 8:46 AM CSTAssociated Order(s): EGD EGD completed. Biopsies pending. A full PDF copy of the report with photos is in the results and/or media tab for your review. Please refer to this for full details of the procedure. Follow up with Dr. Prajapati as scheduled. Kaiser Salgado DO 04/15/2023 8:46 AM PATIONAL THERAPY INSTRUCTOR documented in 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 Plan of Treatment Not on file documented as of 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 Procedures Procedure Name Priority Date/Time Associated Diagnosis Comments CARDIAC RHYTHM STRIP ORDER 05/03/2023 2:39 PM OCCUPATIONAL THERAPY INSTRUCTOR PATHOLOGY/CYTOLOGY REPORT ORDER 04/16/2023 10:06 PM OCCUPATIONAL THERAPY INSTRUCTOR HELICOBACTER PYLORI UREASE (STL) STAT 04/15/2023 8:39 AM OCCUPATIONAL THERAPY INSTRUCTOR Morbid obesity (HCC) AL EGD FLEX TRANSORAL W BX SNGL OR MULT 04/15/2023 8:35 AM OCCUPATIONAL THERAPY INSTRUCTOR AL ED EGD FLEX TRANSORAL DX 04/15/2023 8:35 AM OCCUPATIONAL THERAPY INSTRUCTOR EGD Routine 04/15/2023 8:32 AM OCCUPATIONAL THERAPY INSTRUCTOR documented in 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 Results * CARDIAC RHYTHM STRIP ORDER (05/03/2023 2:39 PM OCCUPATIONAL THERAPY INSTRUCTOR) Narrative 05/03/2023 2:39 PM OCCUPATIONAL THERAPY INSTRUCTOR Ordered by an unspecified provider. Scanned Document CARDIAC SERVICES ORD ERABLES * PATHOLOGY/CYTOLOGY REPORT ORDER (04/16/2023 10:06 PM OCCUPATIONAL THERAPY INSTRUCTOR) Narrative 04/16/2023 10:06 PM OCCUPATIONAL THERAPY INSTRUCTOR Ordered by an unspecified provider. Scanned Document LAB - PATHOLOGY/CYTO LOGY ORDERABLES * HELICOBACTER PYLORI UREASE (STL) (04/15/2023 8:39 AM OCCUPATIONAL THERAPY INSTRUCTOR) Helicobacter pylori Urease Initial Negative Negative 04/16/2023 9:12 AM OCCUPATIONAL THERAPY INSTRUCTOR [facility] Helicobacter pylori Urease Final Negative Negative 04/16/2023 9:12 AM OCCUPATIONAL THERAPY INSTRUCTOR [facility] Microbiology GASTRIC BIOPSY SPECIMEN / Unknown 04/15/2023 8:39 AM OCCUPATIONAL THERAPY INSTRUCTOR 04/15/2023 2:46 PM OCCUPATIONAL THERAPY INSTRUCTOR Kaiser Salgado DO LAB - MICROBIOLOGY ORDERABLES [facility] [address] [place] [address] * EGD (04/15/2023 8:32 AM OCCUPATIONAL THERAPY INSTRUCTOR) Report Endoscopy POC _ Patient Name: Azael , ??Tiarra Chino ? Procedure Date: 04/15/2023 8:32 AM ? Date of : 1970 ?Admit Type: Outpatient Age: 52 ? Room: ROOM 3 Gender: Female ?Attending MD: Kaiser Salgado DO, [id number] _ Procedure: ? Upper GI endoscopy Indications: ? Assessment following Sedrick-en-Y gastrojejunostomy Providers: ? Kaiser Salgado DO, Carmen Hall RN, Jada ? GEOVANY Toribio, Jazmin Lopez CRNA (Anesthesia ? Staff) Medicines: ? Monitored Anesthesia [...] Procedure Code(s): ? --- Professional --- ? 82298 ? --- Technical --- ? 34190 Diagnosis Code(s): ? --- Professional --- ? K44.9 ? K29.70 ? Z09 ? Z98.0 ? --- Technical --- ? K44.9 ? K29.70 ? Z09 ? Z98.0 CPT copyright 2020 [employer]. All rights reserved. The codes documented in this report are preliminary and upon pick pulling machine operator review may be revised to meet current compliance requirements. _ Kaiser Salgado, DO 04/15/2023 8:45:40 AM This report has been signed electronically. Number of Addenda: 0 Note Initiated On: 04/15/2023 8:32 AM [facility] ENDOSCOPY 04/15/2023 8:32 AM OCCUPATIONAL THERAPY INSTRUCTOR Narrative Procedure Note Damian Kaiser R, - 04/15/2023 8:46 AM CST EGD completed. Biopsies pending. A full PDF copy of the report with photos is in the results and/or mediatab for your review. Please refer to this for full details of theprocedure. Follow up with Dr. Prajapati as scheduled. Kaiser Salgado DO 04/15/2023 8:46 AM Kaiser Salgado DO GI PROCEDURE ORDERA BLES [facility] ENDOSCOPY documented in 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 Visit Diagnoses Not on filedocumented in 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 Administered Medications Inactive Administered Medications - up to 3 most recent administrations Medication Order MAR Action Action Date Dose Rate Site 0.9% NaCl injection 3 mL 3 mL, Intracatheter, PRE-PROCEDURE MULTIPLE, Starting on 04/15/23 at 0743, Until Sat04/15/23 at 1042, For Saline Lock flushes if one is inserted for Bronchoscopy/Endoscopy procedure., Pre-procedure (GI) lactated ringers infusion at 20 mL/hr, Intravenous, PRE-OP CONTINUOUS, Starting on Sat04/15/23 at 0745, Until Sat04/15/23 at 1042, Pre-op $ New Bag/Syringe 04/15/2023 8:33 AM OCCUPATIONAL THERAPY INSTRUCTOR 20 mL/hr documented in 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 Active and Recently Administered Medications Times are shown in OCCUPATIONAL THERAPY INSTRUCTOR. Scheduled Medication Order 04/13/2023 04/14/2023 04/15/2023 0.9% NaCl injection 3 mL 3 mL, Intracatheter, PRE-PROCEDURE MULTIPLE, Starting on Sat04/15/23 at 0743, Until 04/15/23 at 1042, For Saline Lock flushes if one is inserted for Bronchoscopy/Endoscopy procedure., Pre-procedure (GI) Continuous Medication Order 04/13/2023 04/14/2023 04/15/2023 lactated ringers infusion at 20 mL/hr, Intravenous, PRE-OP CONTINUOUS, Starting on 04/15/23 at 0745, Until 04/15/23 at 1042, Pre-op 0833 ($ New Bag/Syri nge - Provider: Racheal A Helena, RN) documented in 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 Care Teams Welding Machine Feeder Relationship Specialty Start Date End Date Haritha Tse, [employer] MAK[employer]DOBIE MAN [address] [place] [address] PCP - General Nurse Practitioner 03/25/23 documented as of 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
--- OUTSIDE RECORDS SUMMARY | 2024-03-24 18:51 | XMS_ITS | Encounter Summary ---
Author Organization [facility] Address [address] [facility] [place] [address] Care Team Providers Care Health Informatics Specialist Name Role Phone Ralph Johnson MD Primary Care Provider [phone] Reason for Referral * Radiology Services (Routine) - Closed Specialty Diagnoses / Procedures Referred By Contac t Referred To Contact Diagnoses Bariatric surgery status Procedures [place] [address] [place] [address] Referral ID Status Reason Start Date Expiration Date Visits Re quested Visits Authorized [id number] Closed 03/07/2023 03/06/2024 1 1 PARTS CASER * Procedure (Routine) - Closed Specialty Diagnoses / Procedures Referred By Contac t Referred To Contact Diagnoses Bariatric surgery status Procedures EGD TN ED EGD FLEX TRANSORAL DX TN EGD FLEX TRANSORAL W BX [place] [address] [place] [address] Kaiser Salgado, [address] [address] Referral ID Status Reason Start Date Expiration Date Visits Re quested Visits Authorized [id number] Closed 04/15/2023 07/15/2023 1 1 PARTS CASER Reason for Visit * Reason Comments Establish Care Encounter Details Date Type Department Care Team (Late st Contact Info) Description 03/07/2023 12:00 PM SHOE PARTS CASER Office Visit [facility] Health Weight Management Services [address], [address] [place] [address] [place] [id number] [address] [facility] [address] [place], [place] [id number] Intestinal malabsorption, unspecified type (HCC) (Primary Dx); Bariatric surgery status Social History Tobacco Use Types Packs/Day Years Used Date Smoking Tobacco: Never Smokeless Tobacco: Never Alcohol Use Standard Drinks/Week Comments Yes 10 (1 standard drink = 0.6 oz pu re alcohol) bottle of wine daily Sex and Gender Information Value Date Recorded Sex Assigned at Female 03/18/2023 5:31 PM SHOE PARTS CASER Gender Identity Female 03/18/2023 5:31 PM SHOE PARTS CASER Sexual Orientation Straight 03/18/2023 5: 31 PM SHOE PARTS CASER documented as of 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 Last Filed Vital Signs Vital Sign Reading Time Taken Comments Blood Pressure 123/87 03/07/2023 11:28 AM SHOE PARTS CASER Pulse 75 03/07/2023 11:28 AM SHOE PARTS CASER Temperature 36.7 ??C (98 ??F) 03/07/2023 11: 28 AM SHOE PARTS CASER Respiratory Rate - - Oxygen Saturation 98% 03/07/2023 11: 28 AM SHOE PARTS CASER Inhaled Oxygen Concentration - - Weight 136.9 kg (301 lb 12.8 oz) 2022 11:28 AM SHOE PARTS CASER Height 170.2 cm (5' 7 ) 03/07/2023 11:2 8 AM SHOE PARTS CASER Body Mass Index 47.27 03/07/2023 11:28 AM SHOE PARTS CASER documented in 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 Functional Status Functional [...] Yes 03/17/2018 documented as of 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 Progress Notes * Suresh Prajapati MD - 03/07/2023 12:19 PM CST BARIATRIC EVALUATION HISTORY & PHYSICAL Height: 170.2 cm (5' 7 ) Weight: (!) 136.9 kg (301 lb 12.8 oz) BMI (Calculated): 47.26 Chief Complaint: Morbid Obesity HPI: Pt is a 52 yo F with a hx of morbid obesity who presents for surgical consideration. Pt has attempted multiple weight loss regimens in the past including medical, exercise and dietary without fdc success. Pt has developed multiple comorbid conditions that include Benign Essential Hyperten theodora, heartburn, Dyspnea on exertion, Multiple arthropathies, Morbid Obesity and Blood clots. Thesecomorbid condition(s) have progressively worsened due to the patients morbid obesity and no other contributing factors. Pt has now attained a BMI (Calculated): 47.26 and has failed multiple non surgical weight loss regimens for >5yrs. Pt reports increased appetite and portion size. Past Medical History: Diagnosis Date ??? DVT (deep venous thrombosis) (CMS/HCC) ??? HTN (hypertension) ??? Morbid obesity due to excess calories (CMS/HCC) ??? Osteoarthritis ??? Pulmonary emboli (CMS/HCC) has IVC filter Past Surgical History: Procedure Laterality Date ??? BARIATRIC SURGERY, SEDRICK-EN-Y 1999 Dr. Samson ??? Section x3 PATIENT MEDICAL HISTORY SCREENING: Diabetes............................................No Hypertension.....................................Yes Gastroesophageal reflux disease.....Yes Chest pain.........................................No Heart trouble......................................No Hypercholesterolemia.......................No Stress incontinence..........................No Dyspnea on exertion.........................Yes Multiple arthropathies........................Yes Depression........................................No Sleep apnea......................................No MVP...................................................No Morbid Obesity..................................Yes Blood clots........................................Yes DVT /PE Other................................................. FAMILY HISTORY SCREENING: Significant for obesity....................... Yes Diabetes........................................... No Heart disease................................... No Stroke............................................... No Cancer.............................................. Yes Hypertension..................................... Yes Blood clots........................................ No Other................................................. none Has the patient had a positive history of MRSA No. Current Outpatient Medications Medication ??? metoprolol succinate XL 24hr (Toprol XL) 25 MG tablet ??? oxyCODONE-acetaminophen (Percocet) 5-325 MG tablet ??? rivaroxaban (Xarelto) 20 MG tablet ??? zolpidem (Ambien) 10 MG tablet No current facility-administered medications for this visit. No Known Allergies Social History Smoking status: Never Smokeless tobacco: Never Alcohol use: Yes 10.0 standard drinks of alcohol/week Shots of liquor: 10 per week Comment: bottle of wine daily Drug use: Yes Types: Marijuana, Cocaine Comment: daily Sexual activity: Not on file Review of Systems: Constitutional: denies recent significant weight loss HEENT: Denies headaches, vision or auditory changes Cardiovascular: Denies chest pain, orthopnea or palpitations Respiratory: Denies cough, hemoptysis. Oxygen dependent : No Gastrointestinal: Denies abdominal pain, no melena or hematemesis Genitourinary: denies hematuria, dysuria Musculoskeletal: denies muscle weakness Endocrine: Denies diabetes mellitus or thyroid issues Allergic / Immuno: Normal Neuro / Psych: denies depression, SI/SA Skin: denies open wounds, skin infections Functional Health Status prior to surgery : Independent- The patient does not require assistance from another person for any ADLs.. Physical Examination: BP 123/87 Pulse 75 Temp 98 ??F (36.7 ??C) (Temporal) Ht 1.702 m (5' 7 ) Wt (!) 136.9 kg (301 lb 12.8 oz) SpO2 98% Constitutional: well-developed, well-nourished, and in no distress. No distress. HENT: Head: Normocephalic and atraumatic. Eyes: EOM are normal. No scleral icterus. Neck: No tracheal deviation present. Pulmonary/Chest: Effort normal. No stridor. No respiratory distress. Abdominal: Soft. Non tender, non distended, obese, midline scar/incision Musculoskeletal: Normal range of motion. Exhibits no tenderness. Neurological: A+O x3, GCS score is 15. Skin: Skin is warm. No erythema. Psychiatric: Mood and affect normal. Studies reviewed and discussed with patient: Recent Labs Component Name 04/03/18 0409 03/19/18 1157 03/19/18 1128 03/17/18 0959 SODIUM 138 - 135* 137 POTASSIUM 3.9 3.7 5.7* 4.0 CHLORIDE 107 - 105 106 CO2 21* - 26 26 BUN 20 - 14 11 CREATININE 0.86 - 0.73 0.82 GLUCOSE 78 - 79 92 CALCIUM 8.5 - 8.3* 8.8 Recent Labs Component Name 04/03/18 0409 03/19/18 1128 03/17/18 0959 WBC 7.0 8.2 7.2 HGB 8.4* 7.9* 8.5* HCT 29.8* 27.6* 29.4* PLTCOUNT 318 [id number] 296 LABS 04/2019 CBC without differential Specimen: Blood specimen (specimen) Component Ref Range & Units 3 yr ago WBC 3.8 - 9.9 K/cumm 6.9 Hgb 11.9 - 15.5 g/dL 8.2??Low?? Hct 35.6 - 45.5 % 27.0??Low?? Plt 150 - 400 K/cumm 296 MPV 9.1 - 12.3 fL 9.9 RBC 3.90 - 5.20 M/cumm 2.93??Low?? MCV 81.3 - 96.4 fL 92.2 Basic metabolic panel Specimen: Blood specimen (specimen) Component Ref Range & Units 3 yr ago Comments Sodium 135 - 145 mmol/L 140 Potassium, pl 3.3 - 4.9 mmol/L 4.0 Chloride 97 - 110 mmol/L 108 CO2 22 - 32 mmol/L 24 Anion gap 2 - 15 mmol/L 8 BUN 8 - 25 mg/dL 11 Creatinine 0.60 - 1.10 mg/dL 0.86 Glucose 70 - 199 mg/dL 93 04/2020 Lipid panel Specimen: Blood specimen (specimen) Component Ref Range & Units 2 yr ago Comments Triglycerides 0 - 149 mg/dL 93 National Lipid Association/NCEP Guidelines: ? Normal ?< 150 mg/dL ? Borderline high ?? 150-199 mg/dL ? High ?200-499 mg/dL ? Very High ? >=500 mg/dL Cholesterol 0 - 199 mg/dL 103 National Lipid Association/NCEP Guidelines: ??Desirable ? < 200 mg/dL ??Borderline high: ??200-239 mg/dL ??High Risk: ?>=240 mg/dL HDL Cholesterol mg/dL 37 Reference Ranges: ? Males: >=40 mg/dL ? Females: >=50 mg/dL LDL Cholesterol, Calc 0 - 129 mg/dL 47 National Lipid Association/NCEP Guidelines: ?Optimal ? < 100 mg/dL ?Near Optimal ?100-129 mg/dL ?Borderline high 130-159 mg/dL ?High ?>=160 mg/dL Cholesterol/HDL Ratio 2.8 Hemoglobin A1c Specimen: Blood specimen (specimen) Component Ref Range & Units 2 yr ago Comments Hemoglobin A1c % 4.0 - 5.6 % 4.9 Risk / Benefits Risks and benefits were reviewed with patient including but not limited to , blood clots of the extremities or the lungs, enteral leaks, hemorrhage, damage to organs, infections,non guaranteed weight loss results among others. There are also risks of vitamin deficiencies that can generate vitamin deficiency symptoms. There are also risks of additional procedures or operations in the perioperative and fdc periods. Questions were answered. Bariatric Surgery Patient Education: The patient was informed of other factors that are necessary to achieve weight loss in addition to surgery. Specifically, the patient was informed of the different surgical procedures, including the duodenal switch, the sedrick y gastric bypass, the sleeve gastrectomy. It was explained that bariatric surgery is part of the overall weight loss program which includes a low calorie nutritional program with nutritional and vitamin supplementation, a frequent and consistent exercise program and a social support program or network. The patient will experience successful and continuous churn buttermaker weight loss when these components along with bariatric surgery are followed. The patient has had the above discussions with multiple program team members including surgeon, intermediate project manager, bariatric nurse and mental health fumigator and sterilizer. Impression: Morbid obesity with above listed comorbidities. Plan: Based on discussion with the patient and consideration of the patients medical history and diagnosis of morbid obesity the patient is an appropriate candidate for bariatric surgery. Recommendation isfor: Laparoscopic revision of gastric bypass Liquid Protein Diet: Yes1 Week Firearms Inspector: Yes Additional Testing: Yes GI: - hx of intermittent heartburn and ORYGB : cont prn treatment - EGD ordered - UGI ordered - ORYGB -> LLRYGB / TN/SR CV: - Hx of HTN: cont with current medication management - EKG Pulmonary: - none Endocrine: - none Heme: - Personal hx of DVT/PE, increased VTE risk - cont with xarelto - halt two days preop and begin post op Behavioral/Psych: - hx of depression: cont current management Pt has no history of drug use, alcohol use for greater then one year or treatment for alcohol or drug use for greater then one year Pt has no endocrine disorders that are related to obesity Pt has not smoked for at least 6 weeks Preoperative Labs: - CBC ordered - CMP ordered - vitamin labs ordered Preoperative weight loss: 2-5 lbs from by day of surgery and following preoperative liquid protein diet Comments: Physician Office Secretary visit: per insurance requirements Behavioral health visit: per insurance requirements Perioperative instructions: Hospitalist Consult: yes Limited incision, 2S, no calvin, 2 day stay Suresh Prajapati MD 03/07/2023 PARTS CASER documented in 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 Plan of Treatment Scheduled Orders Name Type Priority Associated Diagnoses Orde r Schedule EGD GI Routine Bariatric surgery status 1 Occurrences starting 03/07/2023 until 03/06/2024 documented as of 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 Procedures Procedure Name Priority Date/Time Associated Diagnosis Comments VITAMIN D 25-HYDROXY Routine 03/07/2023 1:27 PM SHOE PARTS CASER Bariatric surgery status Intestinal malabsorption, unspecified type (HCC) FERRITIN Routine 03/07/2023 1:27 PM SHOE PARTS CASER Bariatric surgery status Intestinal malabsorption, unspecified type (HCC) VITAMIN K1 Routine 03/07/2023 1:26 PM SHOE PARTS CASER Bariatric surgery status Intestinal malabsorption, unspecified type (HCC) ZINC BLOOD Routine 03/07/2023 1:26 PM SHOE PARTS CASER Bariatric surgery status Intestinal malabsorption, unspecified type (HCC) VITAMIN A Routine 03/07/2023 1:26 PM SHOE PARTS CASER Bariatric surgery status Intestinal malabsorption, unspecified type (HCC) VITAMIN E Routine 03/07/2023 1:26 PM SHOE PARTS CASER Bariatric surgery status Intestinal malabsorption, unspecified type (HCC) VITAMIN B1 Routine 03/07/2023 1:26 PM SHOE PARTS CASER Bariatric surgery status Intestinal malabsorption, unspecified type (HCC) COPPER BLOOD Routine 03/07/2023 1:26 PM SHOE PARTS CASER Bariatric surgery status Intestinal malabsorption, unspecified type (HCC) CBC W AUTO DIFFERENTIAL Routine 03/07/2023 1:26 PM SHOE PARTS CASER Bariatric surgery status Intestinal malabsorption, unspecified type (HCC) COMPREHENSIVE METABOLIC PANEL Routine 03/07/2023 1:26 PM SHOE PARTS CASER Bariatric surgery status Intestinal malabsorption, unspecified type (HCC) PREALBUMIN Routine 03/07/2023 1:26 PM SHOE PARTS CASER Bariatric surgery status Intestinal malabsorption, unspecified type (HCC) IRON + TIBC PANEL Routine 03/07/2023 1:2 6 PM SHOE PARTS CASER Bariatric surgery status Intestinal malabsorption, unspecified type (HCC) VITAMIN B12 Routine 03/07/2023 1:26 PM SHOE PARTS CASER Bariatric surgery status Intestinal malabsorption, unspecified type (HCC) documented in 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 Results * FL UGI SERIES (03/25/2023 10:58 AM SHOE PARTS CASER) Anatomical Region Laterality Modality Abdomen Radiographic Alexsandra ging 03/25/2023 2:32 PM SHOE PARTS CASER Impressions 03/25/2023 3:19 PM SHOE PARTS CASER IMPRESSION: 1.Sedrick-en-Y bypass, small hiatal hernia without inducible reflux. 2.Gastric pouch larger than typically seen, however, I do not have a prior comparison upper gastrointestinal examination to assess for interval expansion of the pouch. Edited by Chloe Garcia on 03/25/2023 2:41 PM > Interpreting Provider: Morales Finn MD on 03/25/2023 3:19 PM Narrative 03/25/2023 3:19 PM SHOE PARTS CASER PROCEDURE: ??FL UGI SERIES DATE/TIME OF EXAM: ??03/25/2023 11:02 AM CLINICAL INFORMATION: Prior bariatric surgery 2008. Difficulty losing weight. Potential revision. Indication: Z98.84: Bariatric surgery status. Additional History: COMPARISON: None. TECHNIQUE: Thin barium. FINDINGS: No comparison. The esophagus empties readily into the gastric pouch. The gastric pouch shows the Sedrick loop to extend cephalad to the gastric pouch. No inducible reflux. Small inducible hiatal hernia measures about 16 mm during Valsalva The Sedrick loop distally has a normal appearance without mucosal ulceration. IVC filter. FLUOROSCOPY DOSE: ??4.54 mGy Reference air kerma (ka,r). Procedure Note Morales Finn MD - 03/25/2023 PROCEDURE: FL UGI SERIES DATE/TIME OF EXAM: 03/25/2023 11:02 AM CLINICAL INFORMATION: Prior bariatric surgery 2008. Difficulty losing weight. Potential revision. Indication: Z98.84: Bariatric surgery status. Additional History: COMPARISON: None. TECHNIQUE: Thin barium. FINDINGS: No comparison. The esophagus empties readily into the gastric pouch. The gastric pouch shows the Sedrick loop to extend cephalad to the gastricpouch. No inducible reflux. Small inducible hiatal hernia measures about 16 mm during Valsalva The Sedrick loop distally has a normal appearance without mucosal ulceration. IVC filter. FLUOROSCOPY DOSE: 4.54 mGy Reference air kerma (ka,r). IMPRESSION: 1.Sedrick-en-Y bypass, small hiatal hernia without inducible reflux. 2.Gastric pouch larger than typically seen, however, I do not have aprior comparison upper gastrointestinal examination to assess for interval expansion of the pouch. Edited by Chloe Garcia on 03/25/2023 2:41 PM > Interpreting Provider: Morales Finn MD on 03/25/2023 3:19 PM Suresh Prajapati MD FLUOROSCOPY ORDERABL ES * (ABNORMAL) VITAMIN D 25-HYDROXY (03/07/2023 1:27 PM SHOE PARTS CASER) Vitamin D, 25 Hydroxy <4.0(L) 30.0 - 100.0 ng/mL [facility] INSURANCE BILL Comment: Vitamin D deficiency has been defined by the [place] of [employer] and an Endocrine Society practice guideline as a level of serum 25-OH vitamin D less than 20 ng/mL (1,2). The Endocrine Society went on to further define vitamin D insufficiency as a level between 21 and 29 ng/mL (2). 1. IOM ([place] of [employer]). 2010. Dietary reference ?? intakes for calcium and D. [place]: The ?? National Academies Press. 2. Leonie MF, Hardeep NC, Ronel SARMIENTO, et al. ?? Evaluation, treatment, and prevention of vitamin D ?? deficiency: an Endocrine Society clinical practice ?? guideline. JCEM. 2010; 96(7):1911-30. Blood BLOOD SPECIMEN / Unknown 03/07/2023 1:27 PM SHOE PARTS CASER 03/07/2023 Narrative Resulting Agency Comment [facility]: [facility] [address] [facility] ??[facility] [id number] Suresh Prajapati MD LAB - CHEMISTRY ANNETTE ENGLISH [facility] INSURANCE BILL [address] [address] * (ABNORMAL) FERRITIN (03/07/2023 1:27 PM SHOE PARTS CASER) Ferritin 386(H) 15 - 150 ng/mL [facility] INSURANCE BILL Blood BLOOD SPECIMEN / Unknown 03/07/2023 1:27 PM SHOE PARTS CASER 03/07/2023 Narrative Resulting Agency Comment Lab Testing performed at: [place] [id number] [facility] ??[facility] [id number] Suresh Prajapati MD LAB - CHEMISTRY ANNETTE ENGLISH Performing Organization Address [facility] de Phone Number [facility] INSURANCE BILL [address] [place] [address] * ZINC BLOOD (03/07/2023 1:26 PM SHOE PARTS CASER) Zinc, Plasma or Serum 56 44 - 115 ug/dL [facility] INSURANCE BILL Comment:Detection Limit = 5 Blood BLOOD SPECIMEN / Unknown 03/07/2023 1:26 PM SHOE PARTS CASER 03/07/2023 Narrative [facility] INSURANCE BILL - 03/15/2023 4:07 PM SHOE PARTS CASER Test(s) 038843-Qvmfnu, Serum or Plasma; 945051-Paos, Plasma or Serum was developed and its performance characteristics determined by [facility]. It has not been cleared or approved by the Food and Drug Administration. Resulting Agency Comment Lab Testing performed at: [address] ??[facility] [id number] Suresh Prajapati MD LAB - CHEMISTRY ANNETTE ENGLISH Performing Organization Address [facility] de Phone Number [facility] INSURANCE BILL [address] [place] [address] * VITAMIN K1 (03/07/2023 1:26 PM SHOE PARTS CASER) Vitamin K1 0.12 0.10 - 2.20 ng/mL [facility] INSURANCE BILL Blood BLOOD SPECIMEN / Unknown 03/07/2023 1:26 PM SHOE PARTS CASER 03/07/2023 Narrative [facility] INSURANCE BILL - 03/13/2023 12:07 PM SHOE PARTS CASER Test(s) 115604-Mrsercy K1 was developed and its performance characteristics determined by [facility]. It has not been cleared or approved by the Food and Drug Administration. Resulting Agency Comment Lab Testing performed at: [address] ??[facility] [id number] Suresh Prajapati MD LAB - CHEMISTRY ANNETTE ENGLISH Performing Organization Address City/[facility]/ZIP Co de Phone Number [facility] INSURANCE BILL [address] [place] [address] * VITAMIN E (03/07/2023 1:26 PM SHOE PARTS CASER) Vitamin E Alpha Tocopherol 7.0 7.0 - 25.1 mg/L [facility] Vitamin E Gamma Tocopherol 2.2 0.5 - 5.5 mg/L [facility] Comment: Reference intervals for alpha and gamma-tocopherol determined from National Health and Nutrition Examination Survey, 0454-2221. Individuals with alpha-tocopherol levels less than 5.0 mg/L are considered vitamin E deficient. Blood BLOOD SPECIMEN / Unknown 03/07/2023 1:26 PM SHOE PARTS CASER 03/07/2023 Narrative [facility] INSURANCE BILL - 03/13/2023 6:07 AM SHOE PARTS CASER Test(s) 168747-Gyoepfv E(Alpha Tocopherol); 659372- Vitamin E(Gamma Tocopherol); 264935-Uxn. B1, Whole Blood was developed and its performance characteristics determined by [facility]. It has not been cleared or approved by the Food and Drug Administration. Resulting Agency Comment Lab Testing performed at: [address] ??[facility] [id number] Suresh Prajapati MD LAB - CHEMISTRY ANNETTE ENGLISH Performing Organization Address City/[facility] Co de Phone Number [facility] INSURANCE BILL [address] [place] [address] * VITAMIN B12 (03/07/2023 1:26 PM SHOE PARTS CASER) Vitamin B12 299 232 - 1,245 pg/mL [facility] Blood BLOOD SPECIMEN / Unknown 03/07/2023 1:26 PM SHOE PARTS CASER 03/07/2023 Narrative Resulting Agency Comment Lab Testing performed at: [place] [id number] [facility] ??[facility] [id number] Suresh Prajapati MD LAB - CHEMISTRY ANNETTE ENGLISH Performing Organization Address [facility] Co de Phone Number [facility] INSURANCE BILL [address] [place] [address] * (ABNORMAL) VITAMIN B1 (03/07/2023 1:26 PM SHOE PARTS CASER) [facility] Vitamin B1 Whole Blood 57.5(L) 66.5 - 200.0 nmol/L [facility] INSURANCE BILL Blood BLOOD SPECIMEN / Unknown 03/07/2023 1:26 PM SHOE PARTS CASER 03/07/2023 Narrative [facility] - 03/13/2023 6:07 AM SHOE PARTS CASER Test(s) 314430-Bdsljhm E(Alpha Tocopherol); 673758- Vitamin E(Gamma Tocopherol); 864210-Kzr. B1, Whole Blood was developed and its performance characteristics determined by [facility]. It has not been cleared or approved by the Food and Drug Administration. Resulting Agency Comment Lab Testing performed at: [address] ??[facility] [id number] Suresh Prajapati MD LAB - CHEMISTRY ANNETTE ENGLISH Performing Organization Address [facility] Co de Phone Number [facility] [address] [place] [address] * (ABNORMAL) VITAMIN A (03/07/2023 1:26 PM SHOE PARTS CASER) [facility] Vitamin A 13.7(L) 20.1 - 62.0 ug/dL [facility] Comment: Reference intervals for vitamin A determined from [facility]. Individuals with vitamin A less than 20 ug/dL are considered vitamin A deficient and those with serum concentrations less than 10 ug/dL are considered severely deficient. ?. This test was developed and its performance characteristics determined by [facility]. It has not been cleared or approved by the Food and Drug Administration. Blood BLOOD SPECIMEN / Unknown 03/07/2023 1:26 PM SHOE PARTS CASER 03/07/2023 Narrative [facility] INSURANCE BILL - 03/13/2023 6:07 AM SHOE PARTS CASER Test(s) 685505-Lhzpfmt E(Alpha Tocopherol); 198666- Vitamin E(Gamma Tocopherol); 104987-Lxh. B1, Whole Blood was developed and its performance characteristics determined by [facility]. It has not been cleared or approved by the Food and Drug Administration. Resulting Agency Comment Lab Testing performed at: [facility] [address] ??[facility] [id number] Suresh Prajapati MD LAB - CHEMISTRY ANNETTE ENGLISH [facility] INSURANCE BILL [address] [place] [address] * PREALBUMIN (03/07/2023 1:26 PM SHOE PARTS CASER) Prealbumin 15 10 - 36 mg/dL [facility] INSURANCE BILL Blood BLOOD SPECIMEN / Unknown 03/07/2023 1:26 PM SHOE PARTS CASER 03/07/2023 Narrative Resulting Agency Comment Lab Testing performed at: [facility] [address] ??[facility] [id number] Suresh Prajapati MD LAB - CHEMISTRY ANNETTE ENGLISH [facility] INSURANCE BILL [address] [place] [address] * (ABNORMAL) IRON + TIBC PANEL (03/07/2023 1:26 PM SHOE PARTS CASER) TIBC 219(L) 250 - 450 ug/dL [facility] INSURANCE BILL UIBC 192 131 - 425 ug/dL [facility] INSURANCE BILL Iron 27 27 - 159 ug/dL [facility] INSURANCE BILL Iron Saturation 12(L) 15 - 55 % [facility] INSURANCE BILL Blood BLOOD SPECIMEN / Unknown 03/07/2023 1:26 PM SHOE PARTS CASER 03/07/2023 Narrative Resulting Agency Comment Lab Testing performed at: [facility] [address] ??[facility] [id number] Suresh Prajapati MD LAB - CHEMISTRY ANNETTE ENGLISH [facility] INSURANCE BILL [address] [place] [address] * COPPER BLOOD (03/07/2023 1:26 PM SHOE PARTS CASER) Copper 119 80 - 158 ug/dL [facility] INSURANCE BILL Comment:Detection Limit = 5 Blood BLOOD SPECIMEN / Unknown 03/07/2023 1:26 PM SHOE PARTS CASER 03/07/2023 Narrative [facility] INSURANCE BILL - 03/15/2023 4:07 PM SHOE PARTS CASER Test(s) [id number]-[id number], Serum or Plasma; [id number], Plasma or Serum was developed and its performance characteristics determined by [facility]. It has not been cleared or approved by the Food and Drug Administration. Resulting Agency Comment Lab Testing performed at: [address] ??[facility] [id number] Suresh Prajapati MD LAB - CHEMISTRY ANNETTE ENGLISH [facility] INSURANCE BILL [address] [place] [address] * (ABNORMAL) COMPREHENSIVE METABOLIC PANEL (03/07/2023 1:26 PM SHOE PARTS CASER) Glucose 104(H) 70 - 99 mg/dL [facility] [...] BLOOD SPECIMEN / Unknown 03/07/2023 1:26 PM SHOE PARTS CASER 03/07/2023 Narrative Resulting Agency Comment Lab Testing performed at: [facility] ??[facility] [id number] Suresh Prajapati MD LAB - CHEMISTRY ANNETTE ENGLISH [facility] INSURANCE BILL [address] [place] [address] * (ABNORMAL) CBC WITH DIFFERENTIAL (03/07/2023 1:26 PM SHOE PARTS CASER) WBC 4.9 3.4 - 10.8 x10E3/uL [facility] INSURANCE BILL RBC 3.39(L) 3.77 - 5.28 x10E6/uL [facility] INSURANCE BILL Hemoglobin 10.0(L) 11.1 - 15.9 g/dL [facility] INSURANCE BILL Hematocrit 31.4(L) 34.0 - 46.6 % [facility] INSURANCE BILL MCV 93 79 - 97 fL [facility] INSURANCE BILL MCH 29.5 26.6 - 33.0 pg [facility] INSURANCE BILL MCHC 31.8 31.5 - 35.7 g/dL [facility] INSURANCE BILL RDW 18.8(H) 11.7 - 15.4 % [facility] INSURANCE BILL Platelet Count 119(L) 150 - 450 x10E3/uL [facility] INSURANCE BILL Granulocytes % 60 Not Estab. % [facility] INSURANCE BILL Lymphocytes % 29 Not Estab. % [facility] INSURANCE BILL Monocytes % 7 Not Estab. % [facility] INSURANCE BILL Eosinophils % 4 Not Estab. % [facility] INSURANCE BILL Basophils % 0 Not Estab. % [facility] INSURANCE BILL Immature Cells NOT AVAILABLE [facility] INSURANCE BILL Comment:Result cannot be obt ained for this observation. Granulocytes Absolute 2.9 1.4 - 7.0 x10E3/uL [facility] INSURANCE BILL Lymphocytes Absolute 1.4 0.7 - 3.1 x10E3/uL [facility] INSURANCE BILL Monocytes Absolute 0.4 0.1 - 0.9 x10E3/uL [facility] INSURANCE BILL Eosinophils Absolute 0.2 0.0 - 0.4 x10E3/uL [facility] INSURANCE BILL Basophils Absolute 0.0 0.0 - 0.2 x10E3/uL [facility] INSURANCE BILL Immature Granulocytes 0 Not Estab. % [facility] INSURANCE BILL Immature Granulocytes Absolute 0.0 0.0 - 0.1 x10E3/uL [facility] INSURANCE BILL nRBC NOT AVAILABLE [facility] INSURANCE BILL Comment:Result cannot be obt ained for this observation. Comment Hematology NOT AVAILABLE [facility] INSURANCE BILL Comment:Result cannot be obt ained for this observation. Blood BLOOD SPECIMEN / Unknown 03/07/2023 1:26 PM SHOE PARTS CASER 03/07/2023 Narrative Resulting Agency Comment Lab Testing performed at: [facility] [address] ??[facility] [id number] Suresh Prajapati MD LAB - HEMATOLOGY ORD ERABLES [facility] INSURANCE BILL [address] [place] [address] documented in 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 Visit Diagnoses Diagnosis Intestinal malabsorption, unspecified type (HCC)- Primary Bariatric surgery status Bariatric surgery status documented in 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 Care Teams Health Informatics Specialist Relationship Specialty Start Date End Date Ralph Johnson MD [facility] [address] PCP - General 10/31/18 03/24/23 documented as of 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
--- OUTSIDE RECORDS SUMMARY | 2024-03-24 18:51 | XMS_ITS | Encounter Summary ---
Author Organization [facility] Address [facility] [place] [address] [place] [address] Care Team Providers Care Plisse Machine Operator Helper Name Role Phone None, Provider MD Primary Care Provider Unavaila ble Reason for Visit * Reason Onset Date Comments Appointment Request 10/07/2019 Encounter Details Date Type Department Care Team (Late st Contact Info) Description 10/07/2019 Telephone [facility] at [facility], [facility] [address], [place] [id number] Jorge Fink MD [facility]. [facility] [address], [place] [id number] Appointment Request Social History Tobacco Use Types Packs/Day Years [...] on file documented as of 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 Progress Notes * Dagmar Magana MA - 10/07/2019 10:49 AM CDT Tiarra was referred to Dr. Fink by Earl Glasgow NP for a RLE DVT. I called Tiarra to set the appointment up and she said that she is seeing a assistant project engineer and had just seen him in the later part of September 2019. On that visit the haematologist had upped her Xarelto to 15 mg BID and he wanted to get another venous duplex in 2 months to make sure that the Xarelto was working at that dose. Tiarar was in [facility] in July 2019 and the venous duplex showed a RLE DVT. Tiarra said that she didn't want to make the appointment at this time and wanted to have the follow up venous duplex in 2 month with the assistant project engineer and follow up with him. If the assistant project engineer feels she needs to see Dr. Fink at that time she will call the office back. I gave Tiarra the office number and my ext. documented in 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 Plan of Treatment Not on file documented as of 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 Visit Diagnoses Not on filedocumented in 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 Care Teams Plisse Machine Operator Helper Relationship Specialty Start Date End Date None, Provider, PCP - General 01/06/18 documented as of 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
--- OUTSIDE RECORDS SUMMARY | 2024-03-24 18:51 | XMS_ITS | Encounter Summary ---
Author Organization [facility] Health Address [address] [place] [address] Care Team Providers Care Recruitment Advertising Manager Name Role Phone Ralph Johnson MD Primary Care Provider [phone] Encounter Details Date Type Department Care Team (Latest Contact Info) Description 03/07/2023 Travel Social History Tobacco Use Types Packs/Day Years Used Date Smoking Tobacco: Never Smokeless Tobacco: Never Alcohol Use Standard Drinks/Week Comments Yes 10 (1 standard drink = 0.6 oz pu re alcohol) bottle of wine daily Sex and Gender Information Value Date Recorded Sex Assigned at Female 03/18/2023 5:31 PM WESTERN TACK ASSEMBLY LINE WORKER Gender Identity Female 03/18/2023 5:31 PM WESTERN TACK ASSEMBLY LINE WORKER Sexual Orientation Straight 03/18/2023 5: 31 PM WESTERN TACK ASSEMBLY LINE WORKER documented as of 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 Functional Status [...] on filedocumented in 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 Care Teams Recruitment Advertising Manager Relationship Specialty Start Date End Date Ralph Johnson MD [facility] [address] PCP - General 10/31/18 03/24/23 documented as of 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
--- OUTSIDE RECORDS SUMMARY | 2024-03-24 18:51 | XMS_ITS | Encounter Summary ---
Author Organization [facility] Address [address] [place] [address] Care Team Providers Care Marketing Business Analyst Name Role Phone Haritha Tse Primary Care Provider + Encounter Details Date Type Department Care Team (Latest Contact Info) Description 10/29/2023 Travel Social History Tobacco Use Types Packs/Day Years Used Date Smoking Tobacco: Never Smokeless Tobacco: Never Alcohol Use Standard Drinks/Week Comments Not Currently 10 (1 standard drink = 0.6 oz pure alcohol) Havent drank since [place] Sex and Gender Information Value Date Recorded Sex Assigned at Female 03/18/2023 5:31 PM PHARMACEUTICAL SALES Gender Identity Female 03/18/2023 5:31 PM PHARMACEUTICAL SALES Sexual Orientation Straight 03/18/2023 5: 31 PM PHARMACEUTICAL SALES documented as of 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 Functional Status [...] on filedocumented in 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 Care Teams Marketing Business Analyst Relationship Specialty Start Date End Date Haritha Tse APRN-CNP [address] [place] [address] PCP - General Nurse Practitioner 03/25/23 documented as of 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
--- OUTSIDE RECORDS SUMMARY | 2024-03-24 18:51 | XMS_ITS | Encounter Summary ---
Author Organization [facility] Health Address [address] [place] [address] Care Team Providers Care Body Die Maker Name Role Phone Haritha Tse Primary Care Provider + Encounter Details Date Type Department Care Team (Latest Contact Info) Description 04/15/2023 Travel Social History Tobacco Use Types Packs/Day Years Used Date Smoking Tobacco: Never Smokeless Tobacco: Never Alcohol Use Standard Drinks/Week Comments Not Currently 10 (1 standard drink = 0.6 oz pure alcohol) Havent drank since [place] Sex and Gender Information Value Date Recorded Sex Assigned at Female 03/18/2023 5:31 PM SCRAP METAL COLLECTOR Gender Identity Female 03/18/2023 5:31 PM SCRAP METAL COLLECTOR Sexual Orientation Straight 03/18/2023 5: 31 PM SCRAP METAL COLLECTOR documented as of 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 Functional Status [...] on filedocumented in 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 Care Teams Body Die Maker Relationship Specialty Start Date End Date Haritha Tse APRN-CNP [address] [place] [address] PCP - General Nurse Practitioner 03/25/23 documented as of 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
--- OUTSIDE RECORDS SUMMARY | 2024-03-24 18:51 | XMS_ITS | Encounter Summary ---
Author Organization [facility] Health Address [address] [place] [address] Care Team Providers Care Supervisor Unloading Name Role Phone Ralph Johnson MD Primary Care Provider [phone] Encounter Details Date Type Department Care Team (Latest Contact Info) Description 08/05/2019 Travel Social History Tobacco Use Types Packs/Day Years Used Date Smoking Tobacco: Never Smokeless Tobacco: Never Alcohol Use Standard Drinks/Week Comments Yes 10 (1 standard drink = 0.6 oz pu re alcohol) bottle of wine daily Sex and Gender Information Value Date Recorded Sex Assigned at Female 03/18/2023 5:31 PM DEALER ANALYST Gender Identity Female 03/18/2023 5:31 PM DEALER ANALYST Sexual Orientation Straight 03/18/2023 5: 31 PM DEALER ANALYST COVID-19 Exposure Response Date Recorded In the last month, have you been in contact with someone who was confirmed or suspected to have Coronavirus / COVID-19? No / Unsure 08/05/2019 2:24 PM CDT documented as of 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 Functional Status [...] filedocumented in 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 Care Teams Supervisor Unloading Relationship Specialty Start Date End Date Ralph Johnson MD [address] [phone] PCP - General 10/31/18 03/24/23 documented as of 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
--- OUTSIDE RECORDS SUMMARY | 2024-03-24 18:51 | XMS_ITS | Encounter Summary ---
Author Organization [facility] Health Address [address] [place] [address] Care Team Providers Care Assembly Line Leader Name Role Phone Haritha Tse Primary Care Provider + Encounter Details Date Type Department Care Team (Latest Contact Info) Description 09/12/2023 Travel Social History Tobacco Use Types Packs/Day Years Used Date Smoking Tobacco: Never Smokeless Tobacco: Never Alcohol Use Standard Drinks/Week Comments Not Currently 10 (1 standard drink = 0.6 oz pure alcohol) Havent drank since [place] Sex and Gender Information Value Date Recorded Sex Assigned at Female 03/18/2023 5:31 PM TRANSIT POLICE OFFICER Gender Identity Female 03/18/2023 5:31 PM TRANSIT POLICE OFFICER Sexual Orientation Straight 03/18/2023 5: 31 PM TRANSIT POLICE OFFICER documented as of 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 Functional Status [...] on filedocumented in 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 Care Teams Assembly Line Leader Relationship Specialty Start Date End Date Haritha Tse APRN-CNP [address] [place] [address] PCP - General Nurse Practitioner 03/25/23 documented as of 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
--- OUTSIDE RECORDS SUMMARY | 2024-03-24 18:51 | XMS_ITS | Encounter Summary ---
Author Organization [facility] Health Address [address] [address] Care Team Providers Care Hotel Front Desk Clerk Name Role Phone Aylinmello Haritha Patricia MARAVILLA-MANAGER BIOLOGICS Primary Care Provider + Reason for Referral * Radiology Services (Routine) - Closed Specialty Diagnoses / Procedures Referred By Contac t Referred To Contact Diagnoses Bariatric surgery status Procedures [place] [address] [address] [facility] [place] [address] Referral ID Status Reason Start Date Expiration Date Visits Re quested Visits Authorized [id number] Closed 03/07/2023 03/06/2024 1 1 ER FIRE CONTROL TECHNICIAN Reason for Visit * Radiology Services (Routine) - Closed Specialty Diagnoses / Procedures Referred By Contac t Referred To Contact Diagnoses Bariatric surgery status Procedures [place] [address] [address] [facility] [facility] [place] [address] Referral ID Status Reason Start Date Expiration Date Visits Re quested Visits Authorized [id number] Closed 03/07/2023 03/06/2024 1 1 Encounter Details Date Type Department Care Team (Latest Contact Info) Description 03/25/2023 10:18 AM MASTER FIRE CONTROL TECHNICIAN - 03/25/2023 11:59 PM MASTER FIRE CONTROL TECHNICIAN Hospital Encounter [facility] Health Imaging Services - Radiology [address] [place] [address] [place] [address] [address] [place] [address] Discharge Disposition: Home or Self Care Social History Tobacco Use Types Packs/Day Years Used Date Smoking Tobacco: Never Smokeless Tobacco: Never Alcohol Use Standard Drinks/Week Comments Yes 10 (1 standard drink = 0.6 oz pu re alcohol) bottle of wine daily Sex and Gender Information Value Date Recorded Sex Assigned at Female 03/18/2023 5:31 PM MASTER FIRE CONTROL TECHNICIAN Gender Identity Female 03/18/2023 5:31 PM MASTER FIRE CONTROL TECHNICIAN Sexual Orientation Straight 03/18/2023 5: 31 PM MASTER FIRE CONTROL TECHNICIAN documented as of 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 Functional Status [...] Yes 03/17/2018 documented as of 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 Medications at [...] (Xarelto) 20 MG tablet every 24 hours zolpidem (Ambien) 10 MG tablet 01/31/2023 documented as of 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 Plan of Treatment Not on file documented as of 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 Procedures Procedure Name Priority Date/Time Associated Diagnosis Comments FL UGI SERIES Routine 03/25/2023 10:58 AM MASTER FIRE CONTROL TECHNICIAN Bariatric surgery status documented in 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 Results * FL UGI SERIES (03/25/2023 10:58 AM MASTER FIRE CONTROL TECHNICIAN) Anatomical Region Laterality Modality Abdomen Radiographic Alexsandra ging 03/25/2023 2:32 PM MASTER FIRE CONTROL TECHNICIAN Impressions 03/25/2023 3:19 PM MASTER FIRE CONTROL TECHNICIAN IMPRESSION: 1.Adrienne-en-Y bypass, small hiatal hernia without inducible reflux. 2.Gastric pouch larger than typically seen, however, I do not have a prior comparison upper gastrointestinal examination to assess for interval expansion of the pouch. Edited by Chloe Garcia on 03/25/2023 2:41 PM > Interpreting Provider: Morales Finn MD on 03/25/2023 3:19 PM Narrative 03/25/2023 3:19 PM MASTER FIRE CONTROL TECHNICIAN PROCEDURE: ??FL UGI SERIES DATE/TIME OF EXAM: ??03/25/2023 11:02 AM CLINICAL INFORMATION: Prior bariatric surgery 2008. Difficulty losing weight. Potential revision. Indication: Z98.84: Bariatric surgery status. Additional History: COMPARISON: None. TECHNIQUE: Thin barium. FINDINGS: No comparison. The esophagus empties readily into the gastric pouch. The gastric pouch shows the Adrienne loop to extend cephalad to the gastric pouch. No inducible reflux. Small inducible hiatal hernia measures about 16 mm during Valsalva The Adrienne loop distally has a normal appearance without [...] gastric pouch. The gastric pouch shows the Adrienne loop to extend cephalad to the gastricpouch. No inducible reflux. Small inducible hiatal hernia measures about 16 mm during Valsalva The Adrienne loop distally has a normal appearance without mucosal ulceration. IVC filter. FLUOROSCOPY DOSE: 4.54 mGy Reference air kerma (ka,r). IMPRESSION: 1.Adrienne-en-Y bypass, small hiatal hernia without inducible reflux. 2.Gastric pouch larger than typically seen, however, I do not have aprior comparison upper gastrointestinal examination to assess for interval expansion of the pouch. Edited by Chloe Garcia on 03/25/2023 2:41 PM > Interpreting Provider: Morales Finn MD on 03/25/2023 3:19 PM Suresh Prajapati MD FLUOROSCOPY ORDERABL ES documented in 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 Visit Diagnoses Diagnosis Bariatric surgery status documented in 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 Care Teams Hotel Front Desk Clerk Relationship Specialty Start Date End Date Haritha Tse, NATIONAL ACCOUNT REPRESENTATIVE-MANAGER BIOLOGICS [address] [place] [address] [place] [address] PCP - General Nurse Practitioner 03/25/23 documented as of 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
--- OUTSIDE RECORDS SUMMARY | 2024-03-24 18:51 | XMS_ITS | Encounter Summary ---
Author Organization [facility] Address [address] [place] [address] Care Team Providers Care Leather Repairer Name Role Phone Unavailable Primary Care Provider Unavailabl e Reason for Visit * Reason Comments Chest Pain pt reports CP starte d about 30 mins ago, going into left arm... reports SOB, and N/v SUICIDAL pt reports she just attempted to take her life by using cocain, and etoh * Auth/Cert Specialty Diagnoses / Procedures Referred By Wilfred kirkland Referred To Contact Referral ID Status Reason Start Date Expiration Date Visits Re quested Visits Authorized [id number] 1 1 Encounter Details Date Type Department Care Team (Late st Contact Info) Description 03/17/2018 9:09 AM BATCH AND FURNACE OPERATOR - 03/17/2018 1:58 PM BATCH AND FURNACE OPERATOR Emergency ER at [address] [address] Erwin Wilson MD [address] [place] [address] [place] [address] Aggression (Primary Dx); Chest pain, unspecified type Discharge Disposition: Inpatient Hospital Social History Tobacco Use Types Packs/Day Years Used Date Smoking Tobacco: Never Smokeless Tobacco: Never Alcohol Use Standard Drinks/Week Comments Yes 10 (1 standard drink = 0.6 oz pu re alcohol) Sex and Gender Information Value Date Recorded Sex Assigned at Female 03/18/2023 5:31 PM BATCH AND FURNACE OPERATOR Gender Identity Female 03/18/2023 5:31 PM BATCH AND FURNACE OPERATOR Sexual Orientation Straight 03/18/2023 5: 31 PM BATCH AND FURNACE OPERATOR documented as of 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 Last Filed Vital Signs Vital Sign Reading Time Taken Comments Blood Pressure 112/60 03/17/2018 1:34 PM BATCH AND FURNACE OPERATOR Pulse 88 03/17/2018 1:30 PM BATCH AND FURNACE OPERATOR Temperature 36.4 ??C (97.5 ??F) 03/17/2018 11:[address] Respiratory Rate 12 03/17/2018 1:30 PM BATCH AND FURNACE OPERATOR Oxygen Saturation 95% 03/17/2018 1:18 PM BATCH AND FURNACE OPERATOR Inhaled Oxygen Concentration - - Weight 142.9 kg (315 lb) 03/17/2018 11:19 AM BATCH AND FURNACE OPERATOR Height 165.1 cm (5' 5 ) 03/17/2018 11:19 AM BATCH AND FURNACE OPERATOR Body Mass Index 52.42 03/17/2018 11:19 AM BATCH AND FURNACE OPERATOR documented in 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 Functional Status Functional [...] Sig Dispensed Refills Start Date End Date amoxicillin-clavulanat e (AUGMENTIN) 875-125 MG tabletIndications:Cell ulitis Take 1 tablet by mouth 2 times daily with morning and evening meal for 7 days Reasons: Infection Under the Skin 14 tablet 03/18/2018 03/25/2018 azithromycin (ZITHROMAX) 250 MG tabletIndications:Infe ction Take 250 mg by mouth once daily Reasons: Infection 03/14/2018 03/18/2018 naltrexone (REVIA) 50 MG tabletIndications:Alco holism Take 1 tablet by mouth once daily Reasons: Excessive Use of Alcohol 30 tablet 1 03/18/2018 03/07/2023 documented as of 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 Progress Notes * Kana Albert - 03/17/2018 11:24 AM CST CI notified Corry ARMENTA of admitting information Admitting Information: Admitting Diagnosis: Major Depressive Disorder, recurrent episode severe F33.2 Admitting Physician: Dr. Enriquez Staffing Physician: Dr. Enriquez Discussed case with: Fátima [facility] Hospital / Unit: [facility]/ [facility] Room: 423-1 Phone number for Unit: [phone] Patient's current location: [facility] ED ?? Report information for Behavioral Health Unit: Nurse Name: Corry Nurse contact number: [phone] H AND FURNACE OPERATOR * Kana Albert - 03/17/2018 11:14 AM CST CI spoke with Fátima CURRIE who states pt is appropriate for [facility] Per Dr. Wilson pt is medically clear H AND FURNACE OPERATOR * Kana Albert - 03/17/2018 10:26 AM CST CENTRAL INTAKE ASSESSMENT: ? REASON FOR ASSESSMENT: Tiarra HAN is a 47 y.o. female who presents to the ED with the initial chief complaint(s) per triage note of: Chief Complaint Patient presents with ??? Chest Pain pt reports CP started about 30 mins ago, going into left arm... reports SOB, and N/v ??? SUICIDAL pt reports she just attempted to take her life by using cocain, and etoh The above was entered during triage and not by author of this note. ?? Admitting Information: Admitting Diagnosis: Major Depressive Disorder, recurrent episode severe F33.2 Admitting Physician: Dr. Enriquez Staffing Physician: Dr. Enriquez Discussed case with: Fátima CURRIE Hospital / Unit: [facility]/ [facility] Room: [facility] Phone number for Unit: [phone] Patient's current location: [facility] ED Report information for [facility] Health Unit: Nurse Name: Corry Nurse contact number: [phone] Guardian and Consents: Current Residence of Patient Refer to [facility] Guardian name/relationship, if applicable (Parent /DFS/DJO/Foster): Self Guardian contact #: Refer to [facility] Was guardianship verified Yes If so how? pt Consents handed off to: Placed on pt chart Time consents faxed to unit : faxed to office Admission status: Patient voluntary? Yes Affidavit completed: No ?? Patient Involuntary: No ?? If Yes, Was the patient's Rights Read: No What time did the Involuntary start?:n/a Who read and filled out the paperwork? n/a Was this a [address] Order: No ? GARRETT I/GARRETT II No If yes, is this information in the FYI tab? No ?? Who is providing the information: The patient ? PRESENTING PROBLEM: The patient is a 47 y.o. female presenting to the Emergency Department via personal transportation with a complaint (s) of suicidal ideations. The precipitating event is that pt reports suicidal ideations with a plan to overdose on medications. Pt reports a prior SA by overdosing one week ago. Pt re ports she was not admitted to the hospital during that time. Pt does report prior S admission at [place] a couple months ago. Pt reports homicidal ideations towards no specific target. Per RN, pt was hypersexual and licked a information security specialist ear. Pt does present as bizarre during the assessment. Ptis focused on this casualty underwriter being in a college sorority. The pt reports that she does not have a current psychiatrist and has not been complaint with medications. Per chart, pt uses marijuana, cocaine,and alcohol. However, pt denies any substance abuse during the assessment. Pt reports a decline in sleep and appetite. Pt is obese and reports she has cellulitis in leg. Pt leg is very enlarged and swollen. Pt reports she is able to ambulate independently. CI spoke with Alphonso Kuhn APRN who states pt will probably require a medial bed. Inna [facility] Reach Truck Operator also agrees pt will require medical bed. ?? How long have these events been occurring? For a couple days- suicidal ideations Have the symptoms increased? Yes Have the symptoms decreased? No ?? SUICIDAL SCREEN: (SI, Plan, Intent, Past Attempts, Self-injury, Unsafe Behaviors, history of suicide threats, history of running away) Describe The pt reports suicidal ideations with a plan to overdose. Pt reports a prior SA by overdosing one week ago. ?? Ask questions that are in bold and underlined(Document patients response). 1) Wish to be : Person endorses thoughts about a wish to be or not alive anymore, or wish to fall asleep and not wake up? Have you wished you were or wished you could go to sleep and not wake up? If yes, describe: The pt reports suicidal ideations with a plan to overdose. Pt reports a prior SA by overdosing one week ago. Past Month: Yes 2) Suicidal Thoughts: General non-specific thoughts of wanting to end one???s life/ by suicide, ???I???ve thought about killing myself?? without general thoughts of ways to kill oneself/associated methods, intent, or plan.?? Have you had any actual thoughts of killing yourself? If yes, describe: The pt reports suicidal ideations with a plan to overdose. Pt reports a prior SA by overdosing one week ago. Past Month: Yes If YES to 2, ask questions 3, 4, 5, and 6. If NO to 2, go directly to question 6. 3) Suicidal Thoughts with Method (without Specific Plan or Intent to Act): Person endorses thoughts of suicide and has thought of a least one method during the assessment period. This is different than a specific plan with time, place or method details worked out. ???I thought about taking an overdose but I never made a specific plan as to when where or how I would actually do it???.and I would never go through with it.?? Have you been thinking about how you might do this? If yes, describe: The pt reports suicidal ideations with a plan to overdose. Pt reports a prior SA by overdosing one week ago. Past Month: Yes 4) Suicidal Intent (without Specific Plan): Active suicidal thoughts of killing oneself and patient reports having some intent to act on such thoughts, as oppose to ???I have the thoughts but I definitely will not do anything about them.?? Have you had these thoughts and had some intention of acting on them? If yes, describe: The pt reports suicidal ideations with a plan to overdose. Pt reports a prior SA by overdosing one week ago. Past Month: Yes 5) Suicide Intent with Specific Plan: Thoughts of killing oneself with details of plan fully or partially worked out and person has some intent to carry it out. Have you started to work out or worked out the details of how to kill yourself? Do you intend to carry out this plan? If yes, describe: The pt reports suicidal ideations with a plan to overdose. Pt reports a prior SA by overdosing one week ago. Past Month: Yes 6) Suicide Behavior Question Have you ever done anything, started to do anything, or prepared to do anything to end your life? Examples: Collected pills, obtained a gun, gave away valuables, wrote a will or suicide note, took out pills but didn???t swallow any, held a gun but changed your mind or it was grabbed from your hand, went to the roof but didn???t jump; or actually took pills, tried to shoot yourself, cut yourself, tried to hang yourself, etc. If yes, describe: The pt reports suicidal ideations with a plan to overdose. Pt reports a prior SA by overdosing one week ago. Lifetime: Yes Past 3 Months: Yes Response Protocol to C-SSRS Screening If response to item 1 or 2 is ???Yes?? LOW - Behavioral Health Referral If response to item 3 is ???Yes?? MEDIUM - Consider Patient Safety Precautions If response to item 4 or 5 is ???Yes?? HIGH - Immediate Notification of Physician and/or Behavioral Health and Patient Safety Precautions If response to item 6 Over 3 months ago is ???Yes?? MEDIUM - Consider Patient Safety Precautions If response to item 6 is 3 months ago or less is ???Yes?? HIGH - Immediate Notification of Physician and/or Behavioral Health and Patient Safety Precautions ?? HOMICIDAL SCREEN: (Homicidal Ideation, Plan to harm others, Intent to harm others Past History) ?? Describe: The pt reports homicidal ideations towards no specific target. Pt is cooperative during the assessment. ? SYMPTOMS OF PSYCHOSIS: none ? PREVIOUS MENTAL HEALTH HISTORY: Any prior Psychiatric Admissions: Yes ?If yes Date and location: [place] Do you have any current Providers: no current psychiatrist ? When was you last Appointment: n/a ?? Have you been compliant with treatment: No ?? Are there any additional information provided(any treatment received?): Family History of Mental Illness? No If yes, what and relationship to patient? HOME MEDICATIONS: No ?? Do you have a list of your medication with you? No ?? Pharmacy Information: Intellectual disability/autism/DD: No Infected/Isolation Patient? No Last date/type ? Need assistance w/ ADL's? No Lines/Tubes: No Behavioral Health Risk Alert: No Epic Referral Source Completed: Yes ? Patient Affect: calm ?? Orientation: Time, Person, Place, Situation ?? Eye Contact: Good ?? Sleep: Insomnia Yes Hypersomnia No Nightmares No What are your current sleep hours? 5 Are your current sleep hours different from your regular sleep hours? Yes (Describe your sleeping pattern): ? Self Care: Decrease ADL's No Decreased Interest in activities No Change in Appetite No Fatigue No Weight Loss/Gain No (Describe any sudden changes): ?? Appearance: Fair ? Cognitive: (Alert, oriented, paranoid, hallucinations, delusions, suspicious, flight of ideas, obsessions, insight deficit, confusion, loose associations, blocking, racing thoughts, ideas of reference, grandiosity, flashbacks, impaired memory, poor concentration, ruminating) Describe No current psychosis ? Behavior: calm and cooperative ?? Speech:normal ?? Coping Patterns: Intact ? Abuse History: (Sexual, Physical, Assault, Emotional, Neglect, Rape) Describe( document any past or present information the patient provides) :denied ? If yes, what year did this take place? ?? Was the case hot-lined?: No If yes, Name/ Number of the person accepting/rejecting the report The time and date of the report: Type Of Report (Document, Referral or Report): County that case is being referred to : Contact Number: Contact Name: Reference or Case number for the report: ?? SUBSTANCE ABUSE: Hx of Substance use: No Substances reported using in the past: Current Substance use: No Substances currently using,how much and how often: Current withdrawal symptoms: Symptoms experienced during withdrawals in the past: History of treatment with dates and locations: Triggers/risk factors for relapse: How has substance use impacted the following four areas of your life: Mental health Physical health Family/relationships Legal issues ?? PSYCHOSOCIAL HISTORY: Stressors: no indicated stressors Living situation: pt reports she lives with parents Work/education: unemployed Assets/supports :parents ?? Legal Issues: Legal problem: No Previous or Current Charges related to legal issues: No Previous or Current Convictions related to legal issues: No Feel safe in current situation:Yes- SI with plan to overdose ? Sexual Misconduct (Describe) Verbal:No Physical:No Assault: No If yes, when and was it reported? No Is the Patient registered on the Sex Offender List: No If yes, where: ?? Past History Of Aggression or Aggressive Behaviors: No If yes please provide details: ?? Does the patient have a history of physical aggression? No ?? Is the patient verbally aggressive? No ?? When was the last episode of aggressive behavior displayed?: ?? Has the Patient been physically aggressive while in the Emergency Department, private home or grouphome? No Please describe: ?? DISPOSITION: ?? Discussed case with Dr. Enriquez (Psychiatrist) who agrees that patient meets criteria for inpatient behavioral health services. Patient to be admitted to the care of Dr. Enriquez (Psychiatrist). Discussedcase with Dr. Wilson (ED Physician) who agrees with admission to inpatient behavioral health services. Updated Corry (ED RN) of patient???s status and admission disposition. All verbalized understanding. Discussed case with Fátima [facility] Reach Truck Operator at [facility] for appropriate bed placement. ?? The Grafton Scale, shows that based on patient's presentation they currently warrant a high risk of self harm, this has been provided to Dr. Enriquez Psychiatrist and Dr. Wilson ED Physician along withED Registered Nurse. Provisional Diagnosis: ?? Major Depressive Disorder, recurrent episode severe F33.2 ?? Assessment Times: [id number] H AND FURNACE OPERATOR * Telma Kurtz - 03/17/2018 9:08 AM CST Central Intake received a ED CONSULT CENTRAL INTAKE Order and added patient to the Behavioral Health List (BHS List) for an assessment. H AND FURNACE OPERATOR documented in 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 ED Notes * Corry Lopes RN - 03/17/2018 1:53 PM CST Patient being transferred to [facility]. Pt is calm and cooperative. VSS. IV discharged, catheterintact. A&Ox4 with a steady gait to [facility] H AND FURNACE OPERATOR * Corry Lopes RN - 03/17/2018 12:14 PM CST Pt awaiting transferr. Pt sleeping and wakes to voice. A&OX4. No apparent distress. Skin-warm/dry. Color-normal. Cap refill <2 sec. Respirations-even and non labored. Lung sounds-clear and equal. Bed low locked and call light in reach. Continued monitoring. H AND FURNACE OPERATOR * Troy Sherman - 03/17/2018 12:05 PM CST Stefan called, updated ETA of 1400. H AND FURNACE OPERATOR * Corry Lopes RN - 03/17/2018 11:49 AM CST Report called to Joseph Armenta at [place] [id number]. Stefan called for transport. [id number] H AND FURNACE OPERATOR * Erwin Wilson MD - 03/17/2018 9:36 AM CST Provider contact with the patient: 03/17/2018 09:36 Tiarra HAN [id number] [facility] EMERGENCY DEPARTMENT History Chief Complaint Patient presents with ??? Chest Pain pt reports CP started about 30 mins ago, going into left arm... reports SOB, and N/v ??? SUICIDAL pt reports she just attempted to take her life by using cocain, and etoh Chief complaint narrative was entered by triage nurse, not by physician. HPI 9:36 AM Tiarra HAN, a 47 y.o. female with no past medical history who presents to the ER for psychiatric evaluation. She c/o Si/Hi. She repors she wants to hurt anybody who talks to her. She has been smoking marijuana, using cocain and drinking EtOH the past 2 weeks. 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 She reports SOB and some N/V. BP 110/77 Pulse 79 Resp 17 LMP 03/03/2018 SpO2 100% On examination, Trachea central. Equal air entry bilaterally. CTA. S1 S2 No abd tenderness to palpation. Radial and dorsal pedal pulses intact and equal bilaterally. No past medical history on file. No past surgical history on file. No family history on file. Social History Social History ??? Marital status: Spouse name: N/A ??? Number of children: N/A ??? Years of education: N/A Occupational History ??? Not on file. Social History Main Topics ??? Smoking status: Current Every Day Smoker ??? Smokeless tobacco: Never Used ??? Alcohol use Yes ??? Drug use: Yes Special: Marijuana, Cocaine ??? Sexual activity: Not on file Other Topics Concern ??? Not on file Social History Narrative ??? No narrative on file No Known Allergies Review of Systems Review of Systems Constitutional: Negative for chills and fever. HENT: Negative for congestion. Eyes: Negative for discharge and redness. Respiratory: Positive for shortness of breath. Negative for cough, wheezing and stridor. Cardiovascular: Positive for chest pain. Negative for palpitations and orthopnea. Gastrointestinal: Positive for nausea and vomiting. Negative for abdominal pain. Genitourinary: Negative for dysuria and frequency. Musculoskeletal: Negative for back pain. Skin: Negative for rash. Neurological: Negative for dizziness, tremors, weakness and headaches. Psychiatric/Behavioral: Positive for suicidal ideas. All other systems reviewed and are negative. Physical Exam BP 113/79 Pulse 75 Temp 97.5 ??F (36.4 ??C) Resp 16 Ht 1.651 m (5' 5 ) Wt 142.9 kg (315 lb) SpO2 99% BMI 52.42 kg/m2 [facility] 03/03/2018 Physical Exam Medications No current outpatient prescriptions on file. Procedures Procedures ECG Interpretation ECG Interpretation Lab Interpretation Oxygen Saturation Interpretation The oxygen saturation level is: 100%. The patient was on Room Air for the saturation measurement. Measurement frequency: Continuous. Oxygen saturation interpretation is Normal. Intervention(s) used: None. Hospital Encounter on 03/17/18 CBC W AUTO DIFFERENTIAL Result Value Ref Range WBC 7.2 4.4 - 10.7 x10E9/L WBC Corrected x10E9/L RBC 3.99 3.80 - 5.20 x10E12/L Hemoglobin 8.5 (L) 12.0 - 15.6 gm/dL Hematocrit 29.4 (L) 35.9 - 45.5 % MCV 73.7 (L) 80.7 - 98.3 fl MCH 21.3 (L) 26.7 - 34.0 pg MCHC 28.9 (L) 30.8 - 35.9 gm/dL Platelet Count 296 153 - 416 x10E9/L RDW-CV 18.6 (H) 12.1 - 14.9 % MPV 9.3 (L) 9.4 - 12.9 fl Neutrophils % 57.8 44.0 - 73.0 % Lymphocytes % 30.6 20.0 - 43.0 % Monocytes % 7.5 5.0 - 13.0 % Eosinophils % 3.1 0.0 - 6.0 % Basophils % 0.7 0.0 - 2.0 % Immature Granulocytes 0.3 0 - 1 % Neutrophil Absolute 4.16 2.01 - 7.14 x10E9/L Lymphocytes Absolute 2.20 1.07 - 3.94 x10E9/L Monocytes Absolute 0.54 0.26 - 1.07 x10E9/L Eosinophils Absolute 0.22 0 - 0.47 x10E9/L Basophils Absolute 0.05 0 - 0.08 x10E9/L Immature Granulocytes Absolute 0.02 0.00 - 0.06 x10E9/L nRBC Auto 0 /100 WBC COMPREHENSIVE METABOLIC PANEL Result Value Ref Range Glucose 92 74 - 106 mg/dL Sodium 137 136 - 145 mmol/L Potassium 4.0 3.5 - 5.1 mmol/L Chloride 106 98 - 107 mmol/L CO2 26 22 - 31 mmol/L Calcium 8.8 8.5 - 10.1 mg/dL Anion Gap 5 (L) 8 - 16 mmol/L BUN 11 7 - 21 mg/dL Creatinine 0.82 0.50 - 1.30 mg/dL Alkaline Phosphatase 95 38 - 126 U/L ALT 20 13 - 61 U/L AST 30 5 - 40 U/L Protein Total 8.1 6.4 - 8.2 gm/dL Albumin 3.3 (L) 3.4 - 5.0 gm/dL Bilirubin Total 0.3 0.2 - 1.0 mg/dL eGFR by MDRD >60 >60 mL/min/1.73m2 eGFR by MDRD >60 >60 mL/min/1.73m2 TROPONIN I Result Value Ref Range Troponin I <0.015 0.000 - 0.049 ng/mL HCG BETA BLOOD QUANTITATIVE Result Value Ref Range HCG Quant Serum <1 mIU/mL XR CHEST 1VW PORTABLE Final Result AP Portable Chest Indication: Chest pain, shortness of breath Findings: A single portable view of the chest shows the lungs are clear. Mediastinal contour and heart size are within normal limits. Pulmonary vascularity is unremarkable. IMPRESSION No acute disease. Reading Radiologist: Katt Kumar MD on 03/17/2018 at 10:05 AM Progress Notes 11:24 AM I discussed with the BOUCHRA Garcia Daily Release And Dupe Printer. The patient meets criteria for psychiatric transfer at this time under the care of Dr. Enriquez (Psychiatry) for aggression (primary). Dr. Enriquez agrees to accept the patient at this time. The CI Daily Release And Dupe Printer will inform the patient about the plans for admission. ED Course ED Course Medical Decision Making I have reviewed the: Previous Chart, Nursing Notes, Vitals. I have interpreted the following results: Labs, 12 Lead EKG, Rhythm Strip, X- Ray, Oxygen Saturation. I have discussed the case with Psychiatry. Orders Placed This Encounter ??? XR CHEST 1VW PORTABLE ??? CBC W AUTO DIFFERENTIAL ??? COMPREHENSIVE METABOLIC PANEL ??? TROPONIN I ??? TROPONIN I ??? PT PTT PANEL ??? HCG BETA BLOOD QUANTITATIVE ??? IP CONSULT TO CENTRAL INTAKE ??? IP CONSULT TO CENTRAL INTAKE ??? EKG 12-LEAD ??? ketorolac (TORADOL) injection 30 mg Clinical Impression Final diagnoses: Chest pain, unspecified type Aggression (Primary) Disposition: Transfer to [employer] BP 113/79 Pulse 75 Temp 97.5 ??F (36.4 ??C) Resp 16 Ht 1.651 m (5' 5 ) Wt 142.9 kg (315 lb) SpO2 99% BMI 52.42 kg/m2 Scribe Signature and Attestation By signing my name below, Dawood Pritchett, isiahest that this documentation has been prepared under the direction and in the presence of Dr. Wilson Electronically Signed: Dawood Steinberg Scribe. 03/17/2018. Time 11:24 AM Provider Signature and Attestation IDr. Wilson personally performed the services described in this documentation. All medical recordentries made by the scribe were at my direction and in my presence. I have reviewed the chart and agree that the record reflects my personal performance and is accurate and complete. Electronically Signed: 03/17/2018. Time 1:10 PM H AND FURNACE OPERATOR * Corry Lopes RN - 03/17/2018 9:28 AM CST Pt came to ED for chest pain and states that pain started after using alcohol, marijuana and cocaine. Pt states she is suicidal and homicidal. States she wants to Kill information security specialist. Pt to room and security screening and change of clothes. A&OX4. Pt calm and cooperative at this time. Skin-warm/dry. Color-normal. Cap refill <2 sec. Respirations-even and non labored. Lung sounds-clear and equal. H AND FURNACE OPERATOR documented in 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 Plan of Treatment Not on file documented as of 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 Procedures Procedure Name Priority Date/Time Associated Diagnosis Comments CARDIAC EKG ORDER 03/18/2018 10: 48 PM BATCH AND FURNACE OPERATOR TROPONIN I STAT 03/17/2018 9:59 AM BATCH AND FURNACE OPERATOR CBC W AUTO DIFFERENTIAL STAT 03/17/2018 9:59 AM BATCH AND FURNACE OPERATOR COMPREHENSIVE METABOLIC PANEL STAT 03/17/2018 9:59 AM BATCH AND FURNACE OPERATOR HCG BETA BLOOD QUANTITATIVE STAT 03/17/2018 9:59 AM BATCH AND FURNACE OPERATOR XR CHEST 1VW PORTABLE STAT 03/17/2018 9:32 AM BATCH AND FURNACE OPERATOR Chest pain, unspecified type EKG 12-LEAD STAT 03/17/2018 8:55 AM BATCH AND FURNACE OPERATOR Chest pain, unspecified type documented in 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 Results * CARDIAC EKG ORDER (03/18/2018 10:48 PM BATCH AND FURNACE OPERATOR) Narrative 03/18/2018 10:48 PM BATCH AND FURNACE OPERATOR Ordered by an unspecified provider. Scanned Document CARDIAC SERVICES ORD ERABLES * HCG BETA BLOOD QUANTITATIVE (03/17/2018 9:59 AM BATCH AND FURNACE OPERATOR) hCG Quantitative <1 mIU/mL 03/17/20 18 10:47 AM BATCH AND FURNACE OPERATOR [facility] Blood BLOOD SPECIMEN / Unknown Venipuncture / Unknown 03/17/2018 9:59 AM BATCH AND FURNACE OPERATOR 03/17/2018 10:02 AM BATCH AND FURNACE OPERATOR Narrative [facility] - 03/17/2018 10:47 AM BATCH AND FURNACE OPERATOR ? hCG Reference Range, mIU/mL: ? Males ? 0-2.0 ? Non Females ? 0-6.0 ? Perimenopausal Females ages 41-55* ?0-7.7 ? Postmenopausal Females age >55* ? 0-14 ? Females, Weeks after Last Menstrual Period ?0.2-1 week ? 5-50 ?1 - 2 weeks ?50-500 ?2 - 3 weeks ?100-5000 ?3 - 4 weeks ?500-10,000 ?4 - 5 weeks ?1000-50,000 ?5 - 6 weeks ?10,000-100,000 ?6 - 8 weeks ?15,000-200,000 ?2 - 3 months ? 10,000-100,000 ?Trophoblastic Disease ?>100,000 *In higher than expected hCG in females > age 40, a serum FSH >20 IU/L makes unlikely. Erwin Wilson MD LAB - CHEMISTRY ANNETTE ENGLISH Performing Organization Address [facility] de Phone Number [facility] [address] [place] [id number] * TROPONIN I (03/17/2018 9:59 AM BATCH AND FURNACE OPERATOR) [facility] Troponin I <0.015 0.000 - 0.049 ng/mL 03/17/2018 10:22 AM BATCH AND FURNACE OPERATOR [facility] Blood BLOOD SPECIMEN / Unknown Venipuncture / Unknown 03/17/2018 9:59 AM BATCH AND FURNACE OPERATOR 03/17/2018 10:02 AM BATCH AND FURNACE OPERATOR Narrative [facility] - 03/17/2018 10:22 AM BATCH AND FURNACE OPERATOR Note: Diagnosis of myocardial infarction requires symptoms [...] as pulmonary embolism, renal failure and sepsis. Erwin Wilson MD LAB - CHEMISTRY ANNETTE ENGLISH Performing Organization Address [facility] de Phone Number [facility] [id number] [place] [phone] * (ABNORMAL) COMPREHENSIVE METABOLIC PANEL (03/17/2018 9:59 AM BATCH AND FURNACE OPERATOR) [facility] Glucose 92 74 - 106 mg/dL 03/17/2018 10:22 AM [facility] Sodium 137 136 - 145 mmol/L 03/17/2018 10:22 AM [facility] Potassium 4.0 3.5 - 5.1 mmol/L 03/17/2018 10:22 AM [facility] Chloride 106 98 - 107 mmol/L 03/17/2018 10:22 AM [facility] CO2 26 22 - 31 mmol/L 03/17/2018 10:22 AM [facility] Calcium 8.8 8.5 - 10.1 mg/dL 03/17/2018 10:22 AM [facility] Anion Gap 5(L) 8 - 16 mmol/L 03/17/2018 10:22 AM [facility] BUN 11 7 - 21 mg/dL 03/17/2018 10:22 AM [facility] Creatinine 0.82 0.50 - 1.30 mg/dL 03/17/2018 10:22 AM [facility] Alkaline Phosphatase 95 38 - 126 U/L 03/17/2018 10:22 AM [facility] ALT 20 13 - 61 U/L 03/17/2018 10:22 AM [facility] AST 30 5 - 40 U/L 03/17/2018 10:22 AM [facility] Protein Total 8.1 6.4 - 8.2 gm/dL 03/17/2018 10:22 AM [facility] Albumin 3.3(L) 3.4 - 5.0 gm/dL 03/17/2018 10:22 AM [facility] Bilirubin Total 0.3 0.2 - 1.0 mg/dL 03/17/2018 10:22 AM [facility] eGFR by MDRD >60 >60 mL/min/1.7 3m2 03/17/2018 10:22 AM [facility] eGFR by MDRD >60 >60 mL/min/1.7 3m2 03/17/2018 10:22 AM [facility] Blood BLOOD SPECIMEN / Unknown Venipuncture / Unknown 03/17/2018 9:59 AM BATCH AND FURNACE OPERATOR 03/17/2018 10:02 AM [facility] Erwin Wilson MD LAB - CHEMISTRY ANNETTE ENGLISH [facility] Organization Address City/State/ZIP Co de Phone Number [facility] [address] [place] [address] * (ABNORMAL) CBC W AUTO DIFFERENTIAL (03/17/2018 9:59 AM [facility]) [facility] WBC 7.2 4.4 - 10.7 x10E9/L 03/17/2018 10:09 AM [facility] WBC Corrected x10E9/L 03/17/2018 10:09 AM [facility] RBC 3.99 3.80 - 5.20 x10E12/L 03/17/2018 10:09 AM [facility] Hemoglobin 8.5(L) 12.0 - 15.6 gm/dL 03/17/2018 10:09 AM [facility] Hematocrit 29.4(L) 35.9 - 45.5 % 03/17/2018 10:09 AM [facility] MCV 73.7(L) 80.7 - 98.3 fl 03/17/2018 10:09 AM [facility] MCH 21.3(L) 26.7 - 34.0 pg 03/17/2018 10:09 AM [facility] MCHC 28.9(L) 30.8 - 35.9 gm/dL 03/17/2018 10:09 AM [facility] Platelet Count 296 153 - 416 x10E9/L 03/17/2018 10:09 AM [facility] RDW-CV 18.6(H) 12.1 - 14.9 % 03/17/2018 10:09 AM [facility] MPV 9.3(L) 9.4 - 12.9 fl 03/17/2018 10:09 AM [facility] Neutrophils % 57.8 44.0 - 73.0 % 03/17/2018 10:09 AM [facility] Lymphocytes % 30.6 20.0 - 43.0 % 03/17/2018 10:09 AM [facility] Monocytes % 7.5 5.0 - 13.0 % 03/17/2018 10:09 AM [facility] Eosinophils % 3.1 0.0 - 6.0 % 03/17/2018 10:09 AM [facility] Basophils % 0.7 0.0 - 2.0 % 03/17/2018 10:09 AM [facility] Immature Granulocytes 0.3 0 - 1 % 03/17/2018 10:09 AM BATCH AND FURNACE OPERATOR [facility] Neutrophil Absolute 4.16 2.01 - 7.14 x10E9/L 03/17/2018 10:09 AM [facility] Lymphocytes Absolute 2.20 1.07 - 3.94 x10E9/L 03/17/2018 10:09 AM [facility] Monocytes Absolute 0.54 0.26 - 1.07 x10E9/L 03/17/2018 10:09 AM BATCH AND FURNACE OPERATOR [facility] Eosinophils Absolute 0.22 0 - 0.47 x10E9/L 03/17/2018 10:09 AM BATCH AND FURNACE OPERATOR [facility] Basophils Absolute 0.05 0 - 0.08 x10E9/L 03/17/2018 10:09 AM [facility] Immature Granulocytes Absolute 0.02 0.00 - 0.06 x10E9/L 03/17/2018 10:09 AM [facility] nRBC Auto 0 /100 WBC 03/17/2018 10:09 AM [facility] Blood BLOOD SPECIMEN / Unknown Venipuncture / Unknown 03/17/2018 9:59 AM BATCH AND FURNACE OPERATOR 03/17/2018 10:03 AM BATCH AND FURNACE OPERATOR Erwin Wilson MD LAB - HEMATOLOGY ORD ERABLES [facility] [address] [place] [address] * XR CHEST 1VW PORTABLE (03/17/2018 9:32 AM BATCH AND FURNACE OPERATOR) Anatomical Region Laterality Modality Chest Radiographic Alexsandra ging 03/17/2018 10:0 5 AM BATCH AND FURNACE OPERATOR Impressions 03/17/2018 10:05 AM BATCH AND FURNACE OPERATOR No acute disease. Reading Radiologist: Katt uKmar MD on 03/17/2018 at 10:05 AM Narrative 03/17/2018 10:05 AM BATCH AND FURNACE OPERATOR [facility] Portable Chest Indication: Chest pain, shortness of breath Findings: A single portable view of the chest shows the lungs are clear. Mediastinal contour and heart size are within normal limits. Pulmonary vascularity is unremarkable. Procedure Note Katt Kumar MD - 03/17/2018 AP Portable Chest Indication: Chest pain, shortness of breath Findings: A single portable view of the chest shows the lungs are clear. Mediastinal contour and heart size are within normal limits. Pulmonary vascularity is unremarkable. IMPRESSION No acute disease. Reading Radiologist: Katt Kumar MD on 03/17/2018 at 10:05 AM Erwin Wilson MD DIAGNOSTIC IMAGING O RDERABLES * EKG 12-LEAD (03/17/2018 8:55 AM BATCH AND FURNACE OPERATOR) Ventricular Rate 83 BPM [facility] Atrial Rate 83 BPM [facility] P-R Interval 146 ms [facility] QRS Duration ms 80 ms [facility] Q-T Interval ms 400 ms [facility] QTC Calculation (Bezet) 470 ms [facility] Calculated P [place] 74 degrees [facility] Calculated R [place] -16 degrees [facility] Calculated T [place] -5 degrees [facility] Interpretation EKG Normal sinus rhythm Minimal voltage criteria for LVH, may be normal variant Anterior infarct , age undetermined Abnormal ECG No previous ECGs available Confirmed by Jacinta Good ([id number]) on 03/18/2018 10:59:11 AM [facility] 03/17/2018 8:55 AM BATCH AND FURNACE OPERATOR 03/18/2018 10:59 AM BATCH AND FURNACE OPERATOR Erwin Wilson MD ECG ORDERABLES [facility] documented in 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 Visit Diagnoses Diagnosis Aggression- Primary Explosive personality disorder Chest pain, unspecified type documented in 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 Administered Medications Inactive Administered Medications - up to 3 most recent administrations Medication Order MAR Action Action Date Dose Rate Site ketorolac (TORADOL) injection 30 mg 30 mg, Intravenous, NOW, 1 dose, On Sat03/17/18 at 1030 $ Given 03/17/2018 11:09 AM BATCH AND FURNACE OPERATOR 30 mg documented in 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 Active and Recently Administered Medications Times are shown in BATCH AND FURNACE OPERATOR. Scheduled Medication Order 03/15/2018 03/16/2018 03/17/2018 ketorolac (TORADOL) injection 30 mg (COMPLETED) 30 mg, Intravenous, NOW, 1 dose, On Sat03/17/18 at 1030 1109 ($ Given - Prov ider: Corry Lopes RN) documented in 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
--- OUTSIDE RECORDS SUMMARY | 2024-03-24 18:51 | XMS_ITS | Patient Health Summary ---
Author Organization [facility] Address [address] [place] [address] Care Team Providers Care Field Support Technician Name Role Phone Haritha Tse APRN-NEEDLE MOLDER Primary Care Provider + Note from [facility],non-owned Affiliates and Associated Physician Practices is amultiple site organization consisting of ambulatory clinics and hospital sitesin [place], [place], [place] and [place]. This disclosure is being madepursuant to the Care Everywhere program and may not contain all information available regarding this patient. Last updated 17.[facility] Allergies No known active allergies Medications * Be aware that medications may not be up to date on this document. Alwaysverify current medications with the patient. * metoprolol succinate XL 24hr (Toprol XL) 25 MG tablet metoprolol succinate ER 25 mg tablet,extended release 24 hr * oxyCODONE-acetaminophen (Percocet) 5-325 MG tablet(Started 03/04/2023) Take 1 (one) tablet by mouth 2 times daily as needed For pain. * zolpidem (Ambien) 10 MG tablet(Started 01/31/2023) * rivaroxaban (Xarelto) 20 MG tablet every 24 hours * vitamin D, ergocalciferol, (Drisdol) 1.25 MG (72346 UT) capsule(Started 03/26/2023) Take 1 (one) capsule by mouth every 7 days * amLODIPine (Norvasc) 10 MG tablet(Started 03/15/2023) TAKE 0.5 OF A TABLET BY MOUTH DAILY * furosemide (Lasix) 20 MG tablet Take 1 tablet every day by oral route for 30 days. Active Problems Problem Noted Date Diagnosed Date [...] Sex Assigned at Female 03/18/2023 5:31 PM OUTDOOR FITNESS TRAINER Gender Identity Female 03/18/2023 5:31 PM OUTDOOR FITNESS TRAINER Sexual Orientation Straight 03/18/2023 5: 31 PM OUTDOOR FITNESS TRAINER Last Filed Vital Signs Vital Sign Reading Time Taken Comments Blood Pressure 138/95 04/15/2023 9:15 AM OUTDOOR FITNESS TRAINER Pulse 58 04/15/2023 9:15 AM OUTDOOR FITNESS TRAINER Temperature 36.4 ??C (97.6 ??F) 04/15/2023 8:46 AM CS T Respiratory Rate 18 04/15/2023 9:15 AM OUTDOOR FITNESS TRAINER Oxygen Saturation 98% 04/15/2023 9:15 AM OUTDOOR FITNESS TRAINER Inhaled Oxygen Concentration - - Weight 135.2 kg (298 lb) 01/16/2024 12:24 PM CDT Height 170.2 cm (5' 7 ) 01/16/2024 12:24 PM CDT Body Mass Index 46.67 01/16/2024 12:24 PM CDT Procedures * CARDIAC RHYTHM STRIP ORDER(Performed 05/03/2023) * PATHOLOGY/CYTOLOGY REPORT ORDER(Performed 04/16/2023) * HELICOBACTER PYLORI UREASE (STL)(Performed 04/15/2023) Performed for Morbid obesity (HCC) * NM EGD FLEX TRANSORAL W BX SNGL OR MULT(Performed 04/15/2023) * NM ED EGD FLEX TRANSORAL DX(Performed 04/15/2023) * EGD(Performed 04/15/2023) * FL UGI SERIES(Performed 03/25/2023) Performed for Bariatric surgery status * VITAMIN D 25-HYDROXY(Performed 03/07/2023) Performed for Bariatric surgery status, Intestinal malabsorption, unspecified type (HCC) * FERRITIN(Performed 03/07/2023) Performed for Bariatric surgery status, Intestinal malabsorption, unspecified type (HCC) * ZINC BLOOD(Performed 03/07/2023) Performed for Bariatric surgery status, Intestinal malabsorption, unspecified type (HCC) * VITAMIN K1(Performed 03/07/2023) Performed for Bariatric surgery status, Intestinal malabsorption, unspecified type (HCC) * VITAMIN E(Performed 03/07/2023) Performed for Bariatric surgery status, Intestinal malabsorption, unspecified type (HCC) * VITAMIN B12(Performed 03/07/2023) Performed for Bariatric surgery status, Intestinal malabsorption, unspecified type (HCC) * VITAMIN B1(Performed 03/07/2023) Performed for Bariatric surgery status, Intestinal malabsorption, unspecified type (HCC) * VITAMIN A(Performed 03/07/2023) Performed for Bariatric surgery status, Intestinal malabsorption, unspecified type (HCC) * PREALBUMIN(Performed 03/07/2023) Performed for Bariatric surgery status, Intestinal malabsorption, unspecified type (HCC) * IRON + TIBC PANEL(Performed 03/07/2023) Performed for Bariatric surgery status, Intestinal malabsorption, unspecified type (HCC) * COPPER BLOOD(Performed 03/07/2023) Performed for Bariatric surgery status, Intestinal malabsorption, unspecified type (HCC) * COMPREHENSIVE METABOLIC PANEL(Performed 03/07/2023) Performed for Bariatric surgery status, Intestinal malabsorption, unspecified type (HCC) * CBC W AUTO DIFFERENTIAL(Performed 03/07/2023) Performed for Bariatric surgery status, Intestinal malabsorption, unspecified type (HCC) * XR PELVIS W RIGHT HIP 2VW(Performed 04/03/2018) Performed for Fall, initial encounter * XR KNEE RIGHT 4VW OR MORE(Performed 04/03/2018) Performed for Fall, initial encounter * CT CERVICAL SPINE WO CONTRAST(Performed 04/03/2018) Performed for Fall, initial encounter * CT HEAD WO CONTRAST(Performed 04/03/2018) Performed for Fall, initial encounter * HCG BLOOD QUALITATIVE(Performed 04/03/2018) * DRUG SCREEN TOX LIMITED BLD PNL 3 INHOUSE(Performed 04/03/2018) * COMPREHENSIVE METABOLIC PANEL(Performed 04/03/2018) * PT PTT PANEL(Performed 04/03/2018) * CBC W AUTO DIFFERENTIAL(Performed 04/03/2018) * CARDIAC EKG ORDER(Performed 03/21/2018) * TROPONIN I(Performed 03/19/2018) * CT ANGIO CHEST PULM EMBOLISM(Performed 03/19/2018) Performed for Chest pain, unspecified type * POTASSIUM BLOOD(Performed 03/19/2018) * NT-PRO BNP(Performed 03/19/2018) * D-DIMER(Performed 03/19/2018) * TROPONIN I(Performed 03/19/2018) * COMPREHENSIVE METABOLIC PANEL(Performed 03/19/2018) * CBC W AUTO DIFFERENTIAL(Performed 03/19/2018) * XR CHEST 1VW PORTABLE(Performed 03/19/2018) Performed for Chest pain, unspecified type * EKG 12-LEAD(Performed 03/19/2018) Performed for Chest pain, unspecified type * CARDIAC EKG ORDER(Performed 03/18/2018) * URINE DRUG SCREEN IMMUNOASSAY(Performed 03/17/2018) * HCG BETA BLOOD QUANTITATIVE(Performed 03/17/2018) * TROPONIN I(Performed 03/17/2018) * COMPREHENSIVE METABOLIC PANEL(Performed 03/17/2018) * CBC W AUTO DIFFERENTIAL(Performed 03/17/2018) * XR CHEST 1VW PORTABLE(Performed 03/17/2018) Performed for Chest pain, unspecified type * EKG 12-LEAD(Performed 03/17/2018) Performed for Chest pain, unspecified type Results * CARDIAC RHYTHM STRIP ORDER (05/03/2023 2:39 PM OUTDOOR FITNESS TRAINER) Narrative 05/03/2023 2:39 PM OUTDOOR FITNESS TRAINER Ordered by an unspecified provider. Scanned Document CARDIAC SERVICES ORD ERABLES * PATHOLOGY/CYTOLOGY REPORT ORDER (04/16/2023 10:06 PM OUTDOOR FITNESS TRAINER) Narrative 04/16/2023 10:06 PM OUTDOOR FITNESS TRAINER Ordered by an unspecified provider. Scanned Document LAB - PATHOLOGY/CYTO LOGY ORDERABLES * HELICOBACTER PYLORI UREASE (STL) (04/15/2023 8:39 AM OUTDOOR FITNESS TRAINER) Helicobacter pylori Urease Initial Negative Negative 04/16/2023 9:12 AM OUTDOOR FITNESS TRAINER [facility] Helicobacter pylori Urease Final Negative Negative 04/16/2023 9:12 AM OUTDOOR FITNESS TRAINER [facility] Microbiology GASTRIC BIOPSY SPECIMEN / Unknown 04/15/2023 8:39 AM OUTDOOR FITNESS TRAINER 04/15/2023 2:46 PM OUTDOOR FITNESS TRAINER Kaiser Salgado DO LAB - MICROBIOLOGY ORDERABLES [facility] [address] [id number] * EGD (04/15/2023 8:32 AM OUTDOOR FITNESS TRAINER) Report Endoscopy POC _ Patient Name: Azael , ??Tiarra Chino ? Procedure Date: 04/15/2023 8:32 AM ? Date of : 1970 ?Admit Type: Outpatient Age: 52 ? Room: ROOM 3 Gender: Female ?Attending MD: Kaiser Salgado DO, [id number] _ Procedure: ? Upper GI endoscopy Indications: ? Assessment following Kay-en-Y gastrojejunostomy Providers: ? Kaiser Salgado DO, Carmen [...] noted. No abnormalities within the ? proximal kay limb. ? A medium-sized hiatal hernia was [...] Procedure Code(s): ? --- Professional --- ? 54305 ? --- Technical --- ? 86600 Diagnosis Code(s): ? --- Professional --- ? K44.9 ? K29.70 ? Z09 ? Z98.0 ? --- Technical --- ? K44.9 ? K29.70 ? Z09 ? Z98.0 CPT copyright 2020 [employer]. All rights reserved. The codes documented in this report are preliminary and upon ventilation mechanic review may be revised to meet current compliance requirements. _ Kaiser Salgado DO 04/15/2023 8:45:40 AM This report has been signed electronically. Number of Addenda: 0 Note Initiated On: 04/15/2023 8:32 AM [facility] 04/15/2023 8:32 AM OUTDOOR FITNESS TRAINER Narrative Procedure Note Kaiser Salgado DO - 04/15/2023 8:46 AM CST EGD completed. Biopsies pending. A full PDF copy of the report with photos is in the results and/or mediatab for your review. Please refer to this for full details of theprocedure. Follow up with Dr. Prajapati as scheduled. Kaiser Salgado DO 04/15/2023 8:46 AM Kaiser Salgado DO GI PROCEDURE ORDERA SAI [facility] * FL UGI SERIES (03/25/2023 10:58 AM OUTDOOR FITNESS TRAINER) Anatomical Region Laterality Modality Abdomen Radiographic Alexsandra ging 03/25/2023 2:32 PM OUTDOOR FITNESS TRAINER Impressions 03/25/2023 3:19 PM OUTDOOR FITNESS TRAINER IMPRESSION: 1.Kay-en-Y bypass, small hiatal hernia without inducible reflux. 2.Gastric pouch larger than typically seen, however, I do not have a prior comparison upper gastrointestinal examination to assess for interval expansion of the pouch. Edited by Chloe Garcia on 03/25/2023 2:41 PM > Interpreting Provider: Morales Finn MD on 03/25/2023 3:19 PM Narrative 03/25/2023 3:19 PM OUTDOOR FITNESS TRAINER PROCEDURE: ??FL UGI SERIES DATE/TIME OF EXAM: ??03/25/2023 11:02 AM CLINICAL INFORMATION: Prior bariatric surgery 2009. Difficulty losing weight. Potential revision. Indication: Z98.84: Bariatric surgery status. Additional History: COMPARISON: None. TECHNIQUE: Thin barium. FINDINGS: No comparison. The esophagus empties readily into the gastric pouch. The gastric pouch shows the Kay loop to extend cephalad to the gastric pouch. No inducible reflux. Small inducible hiatal hernia measures about 16 mm during Valsalva The Kay loop distally has a normal appearance without mucosal ulceration. IVC filter. FLUOROSCOPY DOSE: ??4.54 mGy Reference air kerma (ka,r). Procedure Note Morales Finn MD - 03/25/2023 PROCEDURE: FL UGI SERIES DATE/TIME OF EXAM: 03/25/2023 11:02 AM CLINICAL INFORMATION: Prior bariatric surgery 2009. Difficulty losing weight. Potential revision. Indication: Z98.84: Bariatric surgery status. Additional History: COMPARISON: None. TECHNIQUE: Thin barium. FINDINGS: No comparison. The esophagus empties readily into the gastric pouch. The gastric pouch shows the Kay loop to extend cephalad to the gastricpouch. No inducible reflux. Small inducible hiatal hernia measures about 16 mm during Valsalva The Kay loop distally has a normal appearance without mucosal ulceration. IVC filter. FLUOROSCOPY DOSE: 4.54 mGy Reference air kerma (ka,r). IMPRESSION: 1.Kay-en-Y bypass, small hiatal hernia without inducible reflux. 2.Gastric pouch larger than typically seen, however, I do not have aprior comparison upper gastrointestinal examination to assess for interval expansion of the pouch. Edited by Chloe Garcia on 03/25/2023 2:41 PM > Interpreting Provider: Morales Finn MD on 03/25/2023 3:19 PM Suresh Prajapati MD FLUOROSCOPY ORDERABL ES * (ABNORMAL) VITAMIN D 25-HYDROXY (03/07/2023 1:27 PM OUTDOOR FITNESS TRAINER) Vitamin D, 25 Hydroxy <4.0(L) 30.0 - 100.0 ng/mL [facility] INSURANCE BILL Comment: Vitamin D deficiency has been defined by the [place] [employer] and an Endocrine Society practice guideline as a level of serum 25-OH vitamin D less than 20 ng/mL (1,2). The Endocrine Society went on to further define vitamin D insufficiency as a level between 21 and 29 ng/mL (2). 1. IOM ([place] [employer]). 2010. Dietary reference ?? intakes for calcium and D. [place]: The ?? National [employer]. 2. Leonie MF, Hardeep NC, Ronel SARMIENTO, et al. ?? Evaluation, treatment, and prevention of vitamin D ?? deficiency: an Endocrine Society clinical practice ?? guideline. JCEM. 2010; 96(7):1911-30. Blood BLOOD SPECIMEN / Unknown 03/07/2023 1:27 PM OUTDOOR FITNESS TRAINER 03/07/2023 Narrative Resulting Agency Comment Lab Testing performed at: [facility] [address] ??[place] [id number] Suresh Prajapati MD LAB - CHEMISTRY ANNETTE ENGLISH [facility] INSURANCE BILL [address] [place] [address] * (ABNORMAL) FERRITIN (03/07/2023 1:27 PM OUTDOOR FITNESS TRAINER) Ferritin 386(H) 15 - 150 ng/mL [facility] INSURANCE BILL Blood BLOOD SPECIMEN / Unknown 03/07/2023 1:27 PM OUTDOOR FITNESS TRAINER 03/07/2023 Narrative Resulting Agency Comment Lab Testing performed at: [facility] [address] ??[place] [id number] Suresh Prajapati MD LAB - CHEMISTRY ANNETTE ENGLISH [facility] INSURANCE BILL [address] [place] [address] * VITAMIN K1 (03/07/2023 1:26 PM OUTDOOR FITNESS TRAINER) Vitamin K1 0.12 0.10 - 2.20 ng/mL [facility] INSURANCE BILL Blood BLOOD SPECIMEN / Unknown 03/07/2023 1:26 PM OUTDOOR FITNESS TRAINER 03/07/2023 Narrative [facility] INSURANCE BILL - 03/13/2023 12:07 PM OUTDOOR FITNESS TRAINER Test(s) 346373-Otjsxcu K1 was developed and its performance characteristics determined by [facility]. It has not been cleared or approved by the Food and Drug Administration. Resulting Agency Comment Lab Testing performed at: [address] ??[facility] [id number] Suresh Prajapati MD LAB - CHEMISTRY ANNETTE ENGLISH Performing Organization Address [facility] Co de Phone Number [facility] INSURANCE BILL [address] [place] [address] * ZINC BLOOD (03/07/2023 1:26 PM OUTDOOR FITNESS TRAINER) [facility] Zinc, Plasma or Serum 56 44 - 115 ug/dL [facility] INSURANCE BILL Comment:Detection Limit = 5 Blood BLOOD SPECIMEN / Unknown 03/07/2023 1:26 PM OUTDOOR FITNESS TRAINER 03/07/2023 Narrative [facility] INSURANCE BILL - 03/15/2023 4:07 PM OUTDOOR FITNESS TRAINER Test(s) 730783-Gmqksf, Serum or Plasma; 171007-Jbxk, Plasma or Serum was developed and its performance characteristics determined by [employer]. It has not been cleared or approved by the Food and Drug Administration. Resulting Agency Comment Lab Testing performed at: [address] ??[facility] [id number] Suresh Prajapati MD LAB - CHEMISTRY ANNETTE ENGLISH Performing Organization Address [facility] Co de Phone Number [facility] INS[facility] B[facility] [address] [place] [address] * (ABNORMAL) VITAMIN A (03/07/2023 1:26 PM OUTDOOR FITNESS TRAINER) Pathologist [facility] Vitamin A 13.7(L) 20.1 - 62.0 ug/dL [facility] Comment: Reference intervals for vitamin A determined from [facility] internal studies. Individuals with vitamin A less than 20 ug/dL are considered vitamin A deficient and those with serum concentrations less than 10 ug/dL are considered severely deficient. ?. This test was developed and its performance characteristics determined by [facility]. It has not been cleared or approved by the Food and Drug Administration. Blood BLOOD SPECIMEN / Unknown 03/07/2023 1:26 PM OUTDOOR FITNESS TRAINER 03/07/2023 Narrative [facility] INSURANCE BILL - 03/13/2023 6:07 AM OUTDOOR FITNESS TRAINER Test(s) 251123-Dvjjcne E(Alpha Tocopherol); 081100- Vitamin E(Gamma Tocopherol); 452201-Uok. B1, Whole Blood was developed and its performance characteristics determined by [facility]. It has not been cleared or approved by the Food and Drug Administration. Resulting Agency Comment Lab Testing performed at: [address] ??[facility] [id number] Suresh Prajapati MD LAB - CHEMISTRY ANNETTE ENGLISH [facility] INSURANCE BILL [address] [place] [address] * VITAMIN E (03/07/2023 1:26 PM OUTDOOR FITNESS TRAINER) Vitamin E Alpha Tocopherol 7.0 7.0 - 25.1 mg/L [facility] INSURANCE BILL Vitamin E Gamma Tocopherol 2.2 0.5 - 5.5 mg/L [facility] INSURANCE BILL Comment: Reference intervals for alpha and gamma-tocopherol determined from National Health and Nutrition Examination Survey, 6835-5131. Individuals with alpha-tocopherol levels less than 5.0 mg/L are considered vitamin E deficient. Blood BLOOD SPECIMEN / Unknown 03/07/2023 1:26 PM OUTDOOR FITNESS TRAINER 03/07/2023 Narrative [facility] INSURANCE BILL - 03/13/2023 6:07 AM OUTDOOR FITNESS TRAINER Test(s) 485338-Cjflpob E(Alpha Tocopherol); 277614- Vitamin E(Gamma Tocopherol); 878477-Tpy. B1, Whole Blood was developed and its performance characteristics determined by [employer]. It has not been cleared or approved by the Food and Drug Administration. Resulting Agency Comment Lab Testing performed at: [address] ??[facility] [id number] Suresh Prajapati MD LAB - CHEMISTRY ANNETTE ENGLISH Performing Organization Address [facility] de Phone Number [facility] INSURANCE BILL [address] [place] [address] * (ABNORMAL) VITAMIN B1 (03/07/2023 1:26 PM OUTDOOR FITNESS TRAINER) Vitamin B1 Whole Blood 57.5(L) 66.5 - 200.0 nmol/L [facility] INSURANCE BILL Blood BLOOD SPECIMEN / Unknown 03/07/2023 1:26 PM OUTDOOR FITNESS TRAINER 03/07/2023 Narrative [facility] INSURANCE BILL - 03/13/2023 6:07 AM OUTDOOR FITNESS TRAINER Test(s) 532488-Tpwsnrn E(Alpha Tocopherol); 609196- Vitamin E(Gamma Tocopherol); 312950-Wqg. B1, Whole Blood was developed and its performance characteristics determined by [employer]. It has not been cleared or approved by the Food and Drug Administration. Resulting Agency Comment Lab Testing performed at: [address] ??[facility] [id number] Suresh Prajapati MD LAB - CHEMISTRY ANNETTE ENGLISH Performing Organization Address [facility] Co de Phone Number [facility] INSURANCE BILL [address] [place] [address] * COPPER BLOOD (03/07/2023 1:26 PM OUTDOOR FITNESS TRAINER) Copper 119 80 - 158 ug/dL [facility] INSURANCE BILL Comment:Detection Limit = 5 Blood BLOOD SPECIMEN / Unknown 03/07/2023 1:26 PM OUTDOOR FITNESS TRAINER 03/07/2023 Narrative [facility] INSURANCE BILL - 03/15/2023 4:07 PM OUTDOOR FITNESS TRAINER Test(s) 982957-Rjhsoz, Serum or Plasma; 284390-Vbab, Plasma or Serum was developed and its performance characteristics determined by [facility]. It has not been cleared or approved by the Food and Drug Administration. Resulting Agency Comment Lab Testing performed at: [facility] ??[facility] [id number] Suresh Prajapati MD LAB - CHEMISTRY ANNETTE ENGLISH [facility] INSURANCE BILL [address] [place] [address] * (ABNORMAL) CBC WITH DIFFERENTIAL (03/07/2023 1:26 PM OUTDOOR FITNESS TRAINER) Only the most recent of4 resultswithin the time period is included. WBC 4.9 3.4 - 10.8 x10E3/uL [facility] [...] BLOOD SPECIMEN / Unknown 03/07/2023 1:26 PM OUTDOOR FITNESS TRAINER 03/07/2023 Narrative Resulting Agency Comment Lab Testing performed at: [facility] ??[facility] [id number] Suresh Prajapati MD LAB - HEMATOLOGY ORD ERABLES [facility] INSURANCE BILL [address] [place] [address] * (ABNORMAL) COMPREHENSIVE METABOLIC PANEL (03/07/2023 1:26 PM OUTDOOR FITNESS TRAINER) Only the most recent of4 resultswithin the time period is included. Glucose 104(H) 70 - 99 mg/dL [facility] [...] BLOOD SPECIMEN / Unknown 03/07/2023 1:26 PM OUTDOOR FITNESS TRAINER 03/07/2023 Narrative Resulting Agency Comment Lab Testing performed at: [facility] [address] ??[facility] [id number] Suresh Prajapati MD LAB - CHEMISTRY ANNETTE ENGLISH [facility] INSURANCE BILL [address] [place] [address] * PREALBUMIN (03/07/2023 1:26 PM OUTDOOR FITNESS TRAINER) Prealbumin 15 10 - 36 mg/dL [facility] INSURANCE BILL Blood BLOOD SPECIMEN / Unknown 03/07/2023 1:26 PM OUTDOOR FITNESS TRAINER 03/07/2023 Narrative Resulting Agency Comment Lab Testing performed at: [facility] [address] ??[facility] [id number] Suresh Prajapati MD LAB - CHEMISTRY ANNETTE ENGLISH [facility] INSURANCE BILL [address] [place] [address] * (ABNORMAL) IRON + TIBC PANEL (03/07/2023 1:26 PM OUTDOOR FITNESS TRAINER) TIBC 219(L) 250 - 450 ug/dL [facility] INSURANCE BILL UIBC 192 131 - 425 ug/dL [facility] INSURANCE BILL Iron 27 27 - 159 ug/dL [facility] INSURANCE BILL Iron Saturation 12(L) 15 - 55 % [facility] INSURANCE BILL Blood BLOOD SPECIMEN / Unknown 03/07/2023 1:26 PM OUTDOOR FITNESS TRAINER 03/07/2023 Narrative Resulting Agency Comment Lab Testing performed at: [email or web address] [address] ??[facility] [id number] Suresh Prajapati MD LAB - CHEMISTRY ANNETTE ENGLISH [facility] INSURANCE BILL [address] [place] [address] * VITAMIN B12 (03/07/2023 1:26 PM OUTDOOR FITNESS TRAINER) Vitamin B12 299 232 - 1,245 pg/mL [facility] INSURANCE BILL Blood BLOOD SPECIMEN / Unknown 03/07/2023 1:26 PM OUTDOOR FITNESS TRAINER 03/07/2023 Narrative Resulting Agency Comment Lab Testing performed at: [facility] [place] [address] [facility] ??[facility] [id number] Suresh Prajapati MD LAB - CHEMISTRY ANNETTE ENGLISH Performing Organization Address City/[facility]/ZIP Co de Phone Number [facility] INSURANCE BILL [address] [place] [address] * XR PELVIS W RIGHT HIP 2VW (04/03/2018 5:05 AM OUTDOOR FITNESS TRAINER) Anatomical Region Laterality Modality Radiographic Alexsandra ging 04/03/2018 8:22 AM OUTDOOR FITNESS TRAINER Impressions 04/03/2018 8:22 AM OUTDOOR FITNESS TRAINER No fracture. Reading Radiologist: Katt Kumar MD on 04/03/2018 at 8:22 AM Narrative 04/03/2018 8:22 AM OUTDOOR FITNESS TRAINER Pelvis AP one view right hip 2 [...] MD on 04/03/2018 at 8:22 AM Waldemar Joanna DO DIAGNOSTIC IMAGING O RDERABLES * XR KNEE 4+ VW RIGHT (04/03/2018 5:05 AM OUTDOOR FITNESS TRAINER) Anatomical Region Laterality Modality Lower Extremity Radiographic Alexsandra ging 04/03/2018 7:44 AM OUTDOOR FITNESS TRAINER Impressions 04/03/2018 7:45 AM OUTDOOR FITNESS TRAINER Degenerative change. Small effusion. Reading Radiologist: Katt Kumar MD on 04/03/2018 at 7:45 AM Narrative 04/03/2018 7:45 AM OUTDOOR FITNESS TRAINER Right knee 4 views complete INDICATION: Right [...] MD on 04/03/2018 at 7:45 AM Waldemar Marshall DO DIAGNOSTIC IMAGING O RDERABLES * CT CERVICAL SPINE NON CONTRAST (04/03/2018 4:33 AM OUTDOOR FITNESS TRAINER) Anatomical Region Laterality Modality Spine Computed Tomogra phy 04/03/2018 7:50 AM OUTDOOR FITNESS TRAINER Impressions 04/03/2018 8:50 AM OUTDOOR FITNESS TRAINER No fracture. Edited by Judith Brumfield on 04/03/2018 8:05 AM Reading Radiologist: Katt Kumar MD on 04/03/2018 at 8:50 AM Narrative 04/03/2018 8:[address]OR [address] CERVICAL SPINE WITHOUT IV CONTRAST INDICATION: [...] CT HEAD NON CONTRAST (04/03/2018 4:33 AM OUTDOOR FITNESS TRAINER) Anatomical Region Laterality Modality Head Computed Tomogra phy 04/03/2018 7:46 AM OUTDOOR FITNESS TRAINER Impressions 04/03/2018 7:47 AM OUTDOOR FITNESS TRAINER Unremarkable unenhanced CT scan of the brain. Reading Radiologist: Katt Kumar MD on 04/03/2018 at 7:47 AM Narrative 04/03/2018 7:[address]OR [address]IN[address] Head Noncontrast Indication: Severe head pain, trauma Technique: CT images of the brain were obtained at 5 mm intervals without contrast. Preliminary report was provided by [facility]. Findings: There is no radiographic evidence [...] without contrast. Preliminary report was provided by [facility]. Findings: There is no radiographic evidence of intracranial hemorrhage. There is no mass-effect or midline shift. Ventricles and sulci are of normal size. The visualized paranasal sinuses are clear. IMPRESSION Unremarkable unenhanced CT scan of the brain. Reading Radiologist: Katt Kumar MD on 04/03/2018 at 7:47 AM Waldemar Joanna DO CT ORDERABLES * (ABNORMAL) DRUG SCREEN TOX LIMITED BLD PNL 3 INHOUSE (04/03/2018 4:09 AM [facility]) Acetaminophen <2.0(L) 10.0 - 30.0 ug/mL 04/03/2018 4:33 AM [facility] Ethanol 107(H) <10 mg/dL 04/03/2018 4:33 AM [facility] Salicylate <1.7 <20.0 mg/dL 04/03/2018 4:33 AM [facility] Blood BLOOD SPECIMEN / Unknown Venipuncture / Unknown 04/03/2018 4:09 AM OUTDOOR FITNESS TRAINER 04/03/2018 4:13 AM [facility] Narrative DP LABORAT[facility] - 04/03/2018 4:33 AM [facility] ACETAMINOPHEN COMMENT Critical values: 4 Hours Post [...] may alter the peak level. Contact the [facility] at or reserved for healthcare professionals to assist you in evaluating potentially toxic acetaminophen levels. Waldemar Marshall DO LAB - CHEMISTRY ANNETTE ENGLISH [facility] [address] [place] [address] * PT PTT PANEL (04/03/2018 4:09 AM [facility]) PT 11.0 9.5 - 11.6 sec 04/03/2018 4:28 AM [facility] INR 1.0 0.9 - 1.1 04/03/2018 4:28 AM [facility] PTT 21.2 21.0 - 32.0 sec 04/03/2018 4:28 AM [facility] Blood BLOOD SPECIMEN / Unknown Venipuncture / Unknown 04/03/2018 4:09 AM OUTDOOR FITNESS TRAINER 04/03/2018 4:13 AM OUTDOOR FITNESS TRAINER Narrative [facility] - 04/03/2018 4:28 AM OUTDOOR FITNESS TRAINER Conventional Warfarin Anticoagulant Therapy: INR Reference Range: ??2.0-3.0 Intensive Warfarin Anticoagulant Therapy: INR Reference Range: ? 2.5-3.5 Heparin Therapeutic Range for PTT: 47.7 - 68.6 seconds. Waldemar Marshall DO LAB - COAGULATION OR DERABLES Performing Organization Address City/[facility] Co de Phone Number [facility] [address] [place] [address] * HCG BLOOD QUALITATIVE (04/03/2018 4:09 AM OUTDOOR FITNESS TRAINER) Pathologist [facility] HCG Qual Serum Negative Negative 04/03/2018 4:34 AM OUTDOOR FITNESS TRAINER [facility] Blood BLOOD SPECIMEN / Unknown Venipuncture / Unknown 04/03/2018 4:09 AM OUTDOOR FITNESS TRAINER 04/03/2018 4:13 AM OUTDOOR FITNESS TRAINER Waldemar Marshall DO LAB - CHEMISTRY ORDE RABLES Performing Organization Address [facility] de Phone Number [facility] [address] [place] [address] * CARDIAC EKG ORDER (03/21/2018 1:54 AM OUTDOOR FITNESS TRAINER) Only the most recent of2 resultswithin the time period is included. Narrative 03/21/2018 1:54 AM OUTDOOR FITNESS TRAINER Ordered by an unspecified provider. Scanned Document CARDIAC SERVICES ORD ERABLES * TROPONIN I (03/19/2018 2:51 PM OUTDOOR FITNESS TRAINER) Only the most recent of3 resultswithin the time period is included. Troponin I <0.015 0.000 - 0.049 ng/mL 03/19/2018 3:16 PM OUTDOOR FITNESS TRAINER [facility] Blood BLOOD SPECIMEN / Unknown Venipuncture / Unknown 03/19/2018 2:51 PM OUTDOOR FITNESS TRAINER 03/19/2018 2:51 PM OUTDOOR FITNESS TRAINER Narrative [facility] - 03/19/2018 3:16 PM OUTDOOR FITNESS TRAINER Note: Diagnosis of myocardial infarction requires symptoms [...] pulmonary embolism, renal failure and sepsis. Sunny Dleaney MD LAB - CHEMISTRY O RDERABLES [facility] [address] [place] [address] * CT CHEST PE (03/19/2018 12:50 PM OUTDOOR FITNESS TRAINER) Anatomical Region Laterality Modality Chest Computed Tomogra phy 03/19/2018 1:25 PM OUTDOOR FITNESS TRAINER Impressions 03/19/2018 1:27 PM OUTDOOR FITNESS TRAINER There is no evidence of pulmonary embolus. This examination was transcribed using the [employer] voice recognition system without human loan officer. ??In an effort to expedite patient care, this report has not been adjusted for typographical, grammatical, and syntax by a trained medical insurance verifier. Reading Radiologist: Tiarra Spaulding MD on 03/19/2018 at 1:27 PM Narrative 03/19/2018 1:[address] Chest with Contrast INDICATION:Chest pain. Patient [...] embolus. This examination was transcribed using the [employer] voice recognition system without human loan officer. In an effort to expedite patient care, this report has not been adjusted for typographical, grammatical, and syntax by a trained medical insurance verifier. Reading Radiologist: Tiarra Spaulding MD on 03/19/2018 at 1:27 PM Sunny Delaney MD CT ORDERABLES * POTASSIUM BLOOD (03/19/2018 11:57 AM OUTDOOR FITNESS TRAINER) Potassium 3.7 3.5 - 5.1 mmol/L 03/19/2018 12:08 PM OUTDOOR FITNESS TRAINER [facility] Blood BLOOD SPECIMEN / Unknown Venipuncture / Unknown 03/19/2018 11:57 AM OUTDOOR FITNESS TRAINER 03/19/2018 12:00 PM OUTDOOR FITNESS TRAINER Sunny Delaney MD LAB - CHEMISTRY O RDERABLES [facility] [address] [place] [address] * (ABNORMAL) NT-PRO BNP (03/19/2018 11:28 AM OUTDOOR FITNESS TRAINER) NT-proBNP 946.0(H) <300.0 pg/mL 03/19/2018 11:55 AM OUTDOOR FITNESS TRAINER [facility] Blood BLOOD SPECIMEN / Unknown Venipuncture / Unknown 03/19/2018 11:28 AM OUTDOOR FITNESS TRAINER 03/19/2018 11:32 AM OUTDOOR FITNESS TRAINER Narrative [facility] - 03/19/2018 11:55 AM OUTDOOR FITNESS TRAINER NT-proBNP Patient Age ? Acute HF Unlikely [...] Delaney MD LAB - CHEMISTRY O RDERABLES [facility] [address] [place] [address] * (ABNORMAL) D-DIMER (03/19/2018 11:28 AM OUTDOOR FITNESS TRAINER) Pathologist [facility] D-Dimer 1.16(H) 0.17 - 0.5 mg/L FEU 03/19/2018 11:45 AM [facility] Blood BLOOD SPECIMEN / Unknown Venipuncture / Unknown 03/19/2018 11:28 AM OUTDOOR FITNESS TRAINER 03/19/2018 11:32 AM OUTDOOR FITNESS TRAINER Narrative [facility] - 03/19/2018 11:45 AM OUTDOOR FITNESS TRAINER The [employer] D-Dimer assay is intended for [...] Sunny Delaney MD LAB - COAGULATION ORDERABLES [facility] [address] [place] [id number] * XR CHEST 1VW PORTABLE (03/19/2018 10:52 AM OUTDOOR FITNESS TRAINER) Only the most recent of2 resultswithin the time period is included. Anatomical Region Laterality Modality Chest Radiographic Alexsandra ging 03/19/2018 11:1 3 AM OUTDOOR FITNESS TRAINER Impressions 03/19/2018 11:13 AM OUTDOOR FITNESS TRAINER No acute disease. Reading Radiologist: Katt Kumar MD on 03/19/2018 at 11:13 AM Narrative 03/19/2018 11:13 AM OUTDOOR FITNESS TRAINER AP Portable Chest Indication: Chest pain Findings: [...] ORDERABLES * EKG 12-LEAD (03/19/2018 9:10 AM OUTDOOR FITNESS TRAINER) Only the most recent of2 resultswithin the time period is included. Ventricular Rate 71 BPM [facility] Atrial Rate 71 BPM [facility] P-R Interval 168 ms [facility] QRS Duration ms 80 ms [facility] Q-T Interval ms 406 ms [facility] QTC Calculation (Bezet) 441 ms [facility] Calculated P [place] 13 degrees [facility] Calculated R [place] -17 degrees [facility] Calculated T [place] -2 degrees [facility] Interpretation EKG Normal sinus rhythm Minimal voltage criteria for LVH, may be normal variant Borderline ECG No previous ECGs available Confirmed by SERGEI OVALLES MD ([id number]) on 03/20/2018 8:25:36 AM [facility] 03/19/2018 9:10 AM OUTDOOR FITNESS TRAINER 03/20/2018 8:25 AM [facility] Sunny Delaney MD ECG ORDERABLES [facility] * (ABNORMAL) DRUG SCREEN TOX URINE PANEL (03/17/2018 6:17 PM OUTDOOR FITNESS TRAINER) Amphetamines Screen Urine Not Detected Not Detected 03/17/2018 7:09 PM [facility] Barbiturates Screen Urine Not Detected Not Detected 03/17/2018 7:09 PM [facility] Benzodiazepines Screen Urine Detected(A) Not Detected 03/17/2018 7:09 PM [facility] Cannabinoids Screen Urine Detected(A) Not Detected 03/17/2018 7:09 PM [facility] Cocaine Screen Urine Detected(A) Not Detected 03/17/2018 7:09 PM [facility] Methadone Screen Urine Not Detected Not Detected 03/17/2018 7:09 PM [facility] Opiate Screen Urine Not Detected Not Detected 03/17/2018 7:09 PM [facility] Phencyclidine Screen Urine Not Detected Not Detected 03/17/2018 7:09 PM [facility] Urine URINE / Unknown Collection / Unknown 03/17/2018 6:17 PM OUTDOOR FITNESS TRAINER 03/17/2018 6:34 PM OUTDOOR FITNESS TRAINER Narrative [facility] - 03/17/2018 7:09 PM OUTDOOR FITNESS TRAINER This drug screen is designed for MEDICAL purposes only. It is not to be used for legal purposes, including but not limited to worker's comp, police investigations, occupational issues, child custody, etc. ??Any positive result is only presumptive and must be confirmed with a separate confirmatory test ordered by the physician. Drug Screening Test Cutoff Values: AMPHETAMINES ?1000 ng/mL BARBITURATES ? 200 ng/mL BENZODIAZEPINES ??200 ng/mL CANNABINOIDS(THC) 50 ng/mL COCAINE ?300 ng/mL METHADONE ?300 ng/mL OPIATES ?300 ng/mL PHENCYCLIDINE(PCP)25 ng/mL Brad Enriquez MD LAB - URINE CHEMISTR Y ORDERABLES Performing Organization Address City/State/[facility] Co de Phone Number [facility] [address] [place] [address] * HCG BETA BLOOD QUANTITATIVE (03/17/2018 9:59 AM OUTDOOR FITNESS TRAINER) [facility] hCG Quantitative <1 mIU/mL 03/17/20 18 10:47 AM OUTDOOR FITNESS TRAINER [facility] Blood BLOOD SPECIMEN / Unknown Venipuncture / Unknown 03/17/2018 9:59 AM OUTDOOR FITNESS TRAINER 03/17/2018 10:02 AM OUTDOOR FITNESS TRAINER Narrative [facility] - 03/17/2018 10:47 AM OUTDOOR FITNESS TRAINER ? hCG Reference Range, mIU/mL: ? Males [...] Wilson MD LAB - CHEMISTRY ANNETTE ENGLISH [facility] [address] [place] [address] Care Teams Field Support Technician Relationship Specialty Start Date End Date Haritha Tse, MACHINE SCALLOP CUTTER[employer]NEEDLE MOLDER [address] [place] [address] PCP - General Nurse Practitioner 03/25/23
--- OUTSIDE RECORDS SUMMARY | 2024-03-24 18:51 | XMS_ITS | Encounter Summary ---
Author Organization [facility] Address [address] [place] [address]. [place], [place] [id number] [place] [id number] Care Team Providers Care Microbiology Quality Control Technician Name Role Phone None, Provider Primary Care Provider Unavaila ble Encounter Details Date Type Department Care Team (Late st Contact Info) Description 10/06/2019 Scan [facility] at [facility], [address] [address] Scanned, Documents Social History Tobacco Use Types [...] on filedocumented in 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 Care Teams Microbiology Quality Control Technician Relationship Specialty Start Date End Date None, Provider, PCP - General 01/06/18 documented as of 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
--- OUTSIDE RECORDS SUMMARY | 2024-03-24 18:52 | XMS_ITS | Data Portability ---
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 Studies ordered as below. Discussed plan with patient, who expressed understanding. Follow up as noted below. bypass 1999 csection x3 vascular [id number] refills bp , heart md needs something diff for mood rash - steroid needed ababalola Not available 05/29/2022 22:33:29 06/26/2022 06/26/2022 Patient presents with symptoms of UTI. Results of dipstick were positive for UTI. Advised to drink clear fluids, reduce sexual activity, Tylenol for pain and take prescribed medications as instructed. Patient encouraged to follow up within 1 week if not improving. [email or web address] Not available 06/26/2022 16:57:53 Plan of Treatment Reminders Order Date Submit Date Provider Last Modified By Organization Details Last Modified Time Details Appointments None recorded. Lab urinalysis , dipstick 2022 023 [facility] [address] [facility] [facility] [address], [address], [place], [address], 3 18:00:02 CMP, serum or plasma 2022 023 [facility], [address] [place], [address], 3 08:56:35 lipid panel, serum 2022 023 [facility], [address] [place], [address], 3 17:31:10 CBC w/ auto diff 2022 023 [facility], [address] [place], [address], 3 08:56:36 HbA1c (hemoglobi n A1c), blood 2022 023 [facility], [address] [place], [address], 3 08:56:38 TSH, serum or plasma 2022 023 [facility], [address] [place], [address], 3 08:56:37 magnesium, serum or plasma 2022 023 [facility], [address] [place], [address], 3 08:56:34 urinalysis , dipstick 2022 023 [facility], [address] [facility] [address], [address], 3 16:00:[address] referral 2022 023 [email or web address] Miriam Mensah, [address] [facility] [[email or web address] [address], [place], [address], 3 10:44:42 Procedures None recorded. Surgeries None recorded. Imaging MAMMO, screening, tomosynthe sis, bilateral, w/ CAD 2022 023 [email or web address], [address], [place], [address], 3 12:33:24 Medication Orders bupropion HCl XL 150 mg 24 hr tablet, extended release 2022 023 [facility], [address], [place], [place], [id number], 3 18:00:11 triamcinol one acetonide 0.1 % topical cream 2022 023 [facility] #93568, [address], [place], [place], [id number], 3 22:34:01 furosemide 20 mg tablet 2022 023 [facility], [address], [place], [place], [id number], 3 22:13:41 hydroxyzin e HCl 50 mg tablet 2022 023 [facility], [address], [place], [id number], 3 18:00:11 amiodarone 100 mg tablet 2022 023 [facility], [address], [facility] [place], [id number], 3 22:13:38 metoprolol tartrate 25 mg tablet 2022 023 [facility] #85695, [address], [place], [place], [id number], 3 22:13:42 valsartan 320 mg-hydroch lorothiazi de 25 mg tablet 2022 023 [facility]07750, [address], [place], [id number], 22:32:45 valacyclov ir 1 gram tablet 2022 023 [facility]38574, [address], [place], [place], [id number], 16:00:53 Augmentin 875 mg-125 mg tablet 2022 023 [facility] #49105, [address], [place], [place], [id number], 06:44:01 Patient TargetsNo targets recorded. Patient Instructions Encounter Date Encounter Id Patient Instructions Last Modified By Organization Details Last Modified Time 05/29/2022 [id number] Preventing Depression From Coming Back: Care Instructions [email or web address] Not available 05/29/2022 18:00:02 hearing evaluation* ababalola Not available 05/29/2022 18:00:03 body mass index: care instructions ababalola Not available 05/29/2022 18:00:03 learning about healthy weight ababalola Not available 05/29/2022 18:00:03 adjustment disorder: care instructions ababalola Not available 05/29/2022 18:00:03 learning about breast cancer screening ababalola Not available 05/29/2022 18:00:02 atrial fibrillation: care instructions ababalola Not available 05/29/2022 18:00:03 high blood pressure: care instructions ababalola Not available 05/29/2022 22:13:33 06/26/2022 [id number] adjustment disorder: care instructions ababalola Not available 06/26/2022 16:00:39 cold sores: care instructions ababalola Not available 06/26/2022 16:00:39 high blood pressure: care instructions ababalola Not available 06/26/2022 16:00:39 learning about high blood pressure ababalola Not available 06/26/2022 16:00:39 Reason for Referral Java Lead Referral for At rial fibrillation Referring Physician: Lester Acuña, Internal Medicine, Encounter Date: 05/29/2022 Results Created Date Observation Date Name Description Value Unit Range Abnormal Flag Note LastModifiedBy Organization Detail LastModifiedTime 05/29/19 23 05/30/2022 LIPID PANEL , STAND NAOMI cholesterol, total 153 mg/dL <200 normal Not Available [facility] [address] [place], [address], 05/30/2022 08:56:34 05/29/19 23 05/30/2022 LIPID PANEL , STAND NAOMI HDL cholesterol 81 mg/dL > or = 50 normal Not Available [facility] [address] [place], [address], 05/30/2022 08:56:34 05/29/19 23 05/30/2022 LIPID PANEL , STAND NAOMI triglyceride s 57 mg/dL <150 normal Not Available [facility] [address] [place], [address], 05/30/2022 08:56:34 05/29/19 23 05/30/2022 LIPID PANEL , STAND NAOMI LDL-choleste rol 59 mg/dL _(rubi c) normal Refer ence range : <100 Reba able range <100 mg/dL for prima ry preve ntion ; <70 mg/dL for patie nts with CHD or diabe tic patie nts with > or = 2 CHD risk facto rs. LDL-C is now calcu lated using the Carol n-Hop kins calcu twan n, which is a valid ated novel chapin santos than the Tesfaye helmsat ion in the estim ation of LDL-C . Carol farias SS et al. AMANUEL. 2013; 310(1 9): 2061- 2068 (http ://ed ucati on.Qu estDi Edxacts. com/f aq/FA Q164) Not Available [facility] [address] [place], [address], 05/30/2022 08:56:34 05/29/19 23 05/30/2022 LIPID PANEL , STAND NAOMI chol/HDLC ratio 1.9 (calc ) <5.0 normal Not Available [facility] [address] [place], [address], 05/30/2022 08:56:34 05/29/19 23 05/30/2022 LIPID PANEL , STAND NAOMI non HDL cholesterol 72 mg/dL _(rubi c) <130 normal For patie nts with diabe john plus 1 major ASCVD risk facto r, treat ing to a non-H DL-C goal of <100 mg/dL (LDL- C of <70 mg/dL ) is zahraa pruitt optio n. Not Available [facility] [address] [place], [address], 05/30/2022 08:56:34 05/29/19 23 05/30/2022 MAGNE SIUM magnesium 2.0 mg/dL 1.5-2. 5 normal Not Available [facility] [address] [place], [address], 05/30/2022 08:56:34 05/29/19 23 05/30/2022 COMPR EHENS TANI METAB OLIC PANEL glucose 76 mg/dL 65-99 normal Fasti ng refer ence inter annia Not Available [facility] [address] [place], [address], 05/30/2022 08:56:35 05/29/19 23 05/30/2022 COMPR EHENS TANI METAB OLIC PANEL urea nitrogen (BUN) 12 mg/dL 7-25 normal Not Available [facility] [address] [place], [address], 05/30/2022 08:56:35 05/29/19 23 05/30/2022 COMPR EHENS TANI METAB OLIC PANEL creatinine 0.72 mg/dL 0.50-1 .03 normal Not Available [facility] [address] [place], [address], 05/30/2022 08:56:35 05/29/19 23 05/30/2022 COMPR EHENS TANI METAB OLIC PANEL eGFR 101 mL/mi n/1.7 3m2 > or = 60 normal The eGFR is based on the CKD-E PI 2020 equat ion. To calcu late the new eGFR from a previ ous Creat inine or Cysta tin C resul t, go to https ://gabriel leon.moe murrieta.o susan/pr justin whitney s/ kdoqi /gfr% 5Fcal culat or Not Available [facility] [address] [place], [address], 05/30/2022 08:56:35 05/29/19 23 05/30/2022 COMPR EHENS TANI METAB OLIC PANEL BUN/creatini ne ratio NOT APPLIC ABLE (calc ) 6-22 Not Available [facility] [address] [place], [address], 05/30/2022 08:56:35 05/29/19 23 05/30/2022 COMPR EHENS TANI METAB OLIC PANEL sodium 140 mmol/ L 135-14 6 normal Not Available [facility] [address] [place], [address], 05/30/2022 08:56:35 05/29/19 23 05/30/2022 COMPR EHENS TANI METAB OLIC PANEL potassium 4.2 mmol/ L 3.5-5. 3 normal Not Available [facility] [address] [place], [address], 05/30/2022 08:56:35 05/29/19 23 05/30/2022 COMPR EHENS TANI METAB OLIC PANEL chloride 106 mmol/ L 98-110 normal Not Available [facility] [address] [place], [address], 05/30/2022 08:56:35 05/29/19 23 05/30/2022 COMPR EHENS TANI METAB OLIC PANEL carbon dioxide 23 mmol/ L 20-32 normal Not Available [facility] [address] [place], [address], 05/30/2022 08:56:35 05/29/19 23 05/30/2022 COMPR EHENS TANI METAB OLIC PANEL calcium 9.8 mg/dL 8.6-10 .4 normal Not Available [facility] [address] [place] [address], [address], 05/30/2022 08:56:35 05/29/19 23 05/30/2022 COMPR EHENS TANI METAB OLIC PANEL protein, total 6.8 g/dL 6.1-8. 1 normal Not Available [facility] [address] [place] [address], [address], 05/30/2022 08:56:35 05/29/19 23 05/30/2022 COMPR EHENS TANI METAB OLIC PANEL albumin 3.6 g/dL 3.6-5. 1 normal Not Available [facility] [address] [place] [address], [address], 05/30/2022 08:56:35 05/29/19 23 05/30/2022 COMPR EHENS TANI METAB OLIC PANEL globulin 3.2 g/dL_ (calc ) 1.9-3. 7 normal Not Available [facility] [address] [place] [address], [address], 05/30/2022 08:56:35 05/29/19 23 05/30/2022 COMPR EHENS TANI METAB OLIC PANEL albumin/glob ulin ratio 1.1 (calc ) 1.0-2. 5 normal Not Available [facility] [address] [place], [address], 05/30/2022 08:56:35 05/29/19 23 05/30/2022 COMPR EHENS TANI METAB OLIC PANEL bilirubin, total 0.6 mg/dL 0.2-1. 2 normal Not Available [facility] [address] [place], [address], 05/30/2022 08:56:35 05/29/19 23 05/30/2022 COMPR EHENS TANI METAB OLIC PANEL alkaline phosphatase 156 U/L 37-153 high Not Available [facility] [address] [place] [address], [address], 05/30/2022 08:56:35 05/29/19 23 05/30/2022 COMPR EHENS TANI METAB OLIC PANEL AST 58 U/L 10-35 high Not Available [facility] [address] [place], [address], 05/30/2022 08:56:35 05/29/19 23 05/30/2022 COMPR EHENS TANI METAB OLIC PANEL ALT 29 U/L 6-29 normal Not Available [facility] [address] [place] [address], [address], 05/30/2022 08:56:35 05/29/19 23 05/30/2022 CBC (INCL UDES DIFF/ PLT) white blood cell count 6.6 thous and/u L 3.8-10 .8 normal Not Available [facility] [address] [place] [address], [address], 05/30/2022 08:56:36 05/29/19 23 05/30/2022 CBC (INCL UDES DIFF/ PLT) red blood cell count 3.71 dionna on/uL 3.80-5 .10 low Not Available [facility] [address] [place] [address], [address], 05/30/2022 08:56:36 05/29/19 23 05/30/2022 CBC (INCL UDES DIFF/ PLT) hemoglobin 10.7 g/dL 11.7-1 5.5 low Not Available [facility] [address] [place] [address], [address], 05/30/2022 08:56:36 05/29/19 23 05/30/2022 CBC (INCL UDES DIFF/ PLT) hematocrit 33.8 % 35.0-4 5.0 low Not Available [facility] [address] [place], [address], 05/30/2022 08:56:36 05/29/19 23 05/30/2022 CBC (INCL UDES DIFF/ PLT) MCV 91.1 fL 80.0-1 00.0 normal Not Available [facility] [address] [place] [address], [address], 05/30/2022 08:56:36 05/29/19 23 05/30/2022 CBC (INCL UDES DIFF/ PLT) MCH 28.8 pg 27.0-3 3.0 normal Not Available [facility] [address] [place] [address], [address], 05/30/2022 08:56:36 05/29/19 23 05/30/2022 CBC (INCL UDES DIFF/ PLT) MCHC 31.7 g/dL 32.0-3 6.0 low Not Available [facility] [address] [place] [address], [address], 05/30/2022 08:56:36 05/29/19 23 05/30/2022 CBC (INCL UDES DIFF/ PLT) RDW 13.0 % 11.0-1 5.0 normal Not Available [facility] [address] [place] [address], [address], 05/30/2022 08:56:36 05/29/19 23 05/30/2022 CBC (INCL UDES DIFF/ PLT) platelet count 205 thous and/u L 140-40 0 normal Not Available [facility] [address] [place] [address], [address], 05/30/2022 08:56:36 05/29/19 23 05/30/2022 CBC (INCL UDES DIFF/ PLT) MPV 9.9 fL 7.5-12 .5 normal Not Available [facility] [address] [place], [address], 05/30/2022 08:56:36 05/29/19 23 05/30/2022 CBC (INCL UDES DIFF/ PLT) absolute neutrophils 5293 cells /uL 1500-7 800 normal Not Available [facility] [address] [place] [address], [address], 05/30/2022 08:56:36 05/29/19 23 05/30/2022 CBC (INCL UDES DIFF/ PLT) absolute lymphocytes 719 cells /uL 850-39 00 low Not Available [facility] [address] [place] [address], [address], 05/30/2022 08:56:36 05/29/19 23 05/30/2022 CBC (INCL UDES DIFF/ PLT) absolute monocytes 442 cells /uL 200-95 0 normal Not Available [facility] [address] [place] [address], [address], 05/30/2022 08:56:36 05/29/19 23 05/30/2022 CBC (INCL UDES DIFF/ PLT) absolute eosinophils 132 cells /uL 15-500 normal Not Available [facility] [address] [place] [address], [address], 05/30/2022 08:56:36 05/29/19 23 05/30/2022 CBC (INCL UDES DIFF/ PLT) absolute basophils 13 cells /uL 0-200 normal Not Available [facility] [address] [place] [address], [address], 05/30/2022 08:56:36 05/29/19 23 05/30/2022 CBC (INCL UDES DIFF/ PLT) neutrophils 80.2 % normal Not Available [facility] [address] [place] [address], [address], 05/30/2022 08:56:36 05/29/19 23 05/30/2022 CBC (INCL UDES DIFF/ PLT) lymphocytes 10.9 % normal Not Available [facility] [address] [place], [address], 05/30/2022 08:56:36 05/29/19 23 05/30/2022 CBC (INCL UDES DIFF/ PLT) monocytes 6.7 % normal Not Available [facility] [address] [place] [address], [address], 05/30/2022 08:56:36 05/29/19 23 05/30/2022 CBC (INCL UDES DIFF/ PLT) eosinophils 2.0 % normal Not Available [facility] [address] [place] [address], [address], 05/30/2022 08:56:36 05/29/19 23 05/30/2022 CBC (INCL UDES DIFF/ PLT) basophils 0.2 % normal Not Available [facility] [address] [place] [address], [address], 05/30/2022 08:56:36 05/29/19 23 05/30/2022 TSH W/REF JORGE TO FT4 TSH w/reflex to FT4 2.88 mIU/L normal Refer ence Range > or = 20 Years 0.40- 4.50 Pregn adonay Range s First trime ster 0.26- 2.66 Secon d trime ster 0.55- 2.73 Third trime ster 0.43- 2.91 Not Available [facility] [address] [place] [address], [address], 05/30/2022 08:56:37 05/29/1905/30/2022 HEMOG LOBIN A1C hemoglobin A1C 4.7 %_of_ total _HGB <5.7 normal For the purpo se of nathalie disla for the prese nce of diabe john: <5.7% Consi stent with the absen ce of diabe john 5.7-6 .4% Consi stent with incre ased risk for diabe john (pred iabet es) > or =6.5% Consi stent with diabe john This assay resul t is consi stent with a decre ased risk of diabe john. Curre ntly, no conse nsus exist s casi rodriguez use of hemog lobin A1c for diagn osis of diabe john in child kyle. Accor ding to Ameri can Diabe john Assoc iatio n (ADA) guide lines , hemog lobin A1c <7.0% repre sents optim al contr ol in non-p regna nt diabe tic patie nts. Diffe rent metri cs may apply to speci fic patie nt popul ation s. Stand ards of Medic al Care in Diabe john(A DA). Not Available [facility] [address] [facility], [place], [address], 05/30/2022 08:56:38 05/29/19 23 05/29/2022 heari ng evalu ation * Unknown Analyte abnorm al Not Available [address], [place], [address], 05/29/2022 17:12:02 05/29/19 23 05/29/2022 heari ng evalu ation * Unknown Analyte abnorm al Not Available [place] [address] [facility] [address], [place], [address], 05/29/2022 17:12:02 05/29/19 23 05/29/2022 heari ng evalu ation * Unknown Analyte normal Not Available [address], [place], [address], 05/29/2022 17:12:02 05/29/19 23 05/29/2022 heari ng evalu ation * Unknown Analyte normal Not Available [address] [facility] [facility] [address], [place], [address], 05/29/2022 17:12:02 02/21/05/29/2022 heari ng evalu ation * Unknown Analyte normal Not Available [place] [address], [place], [address], 05/29/2022 17:12:02 05/29/19 23 05/29/2022 heari ng evalu ation * Unknown Analyte normal Not Available [place] [address], [place], [address], 05/29/2022 17:12:02 05/29/19 23 05/29/2022 heari ng evalu ation * Unknown Analyte normal Not Available [place] [address], [place], [address], 05/29/2022 17:12:02 05/29/19 23 05/29/2022 heari ng evalu ation * Unknown Analyte normal Not Available [place] [address], [place], [address], 05/29/2022 17:12:02 05/29/19 23 05/29/2022 urina lysis , dipst ick Leukocytes Modera te Not Available [place] [address], [place], [address], 05/29/2022 17:10:50 05/29/1905/29/2022 urina lysis , dipst ick Nitrite negati ve Not Available [place] [address], [place], [address], 05/29/2022 17:10:50 05/29/1905/29/2022 urina lysis , dipst ick Urobilinogen .2 Not Available [place] [address] [address], [place], [address], 05/29/2022 17:10:50 05/29/19 23 05/29/2022 urina lysis , dipst ick Protein 30 Not Available [place] [address], [place], [address], 05/29/2022 17:10:50 05/29/19 23 05/29/2022 urina lysis , dipst ick pH 6.0 Not Available [place] [address], [place], [address], 05/29/2022 17:10:50 05/29/19 23 05/29/2022 urina lysis , dipst ick Blood Hemoly zed: Trace Not Available [place] [address], [place], [address], 05/29/2022 17:10:50 05/29/19 23 05/29/2022 urina lysis , dipst ick Specific [place] 1.020 Not Available [place] [address], [place], [address], 05/29/2022 17:10:50 05/29/19 23 05/29/2022 urina lysis , dipst ick Ketone Negati ve Not Available [place] [address] [address], [place], [address], 05/29/2022 17:10:50 05/29/19 23 05/29/2022 urina lysis , dipst ick Bilirubin Negati ve Not Available [place] [address] [address], [place], [address], 05/29/2022 17:10:50 05/29/19 23 05/29/2022 urina lysis , dipst ick Glucose Negati ve Not Available [place] [address] [address], [place], [address], 05/29/2022 17:10:50 05/29/19 23 05/29/2022 urina lysis , dipst ick Appearance Turbid Not Available [place] [address] [address], [place], [address], 05/29/2022 17:10:50 05/29/19 23 05/29/2022 urina lysis , dipst ick Color Olema Not Available [place] [address] [address], [place], [address], 05/29/2022 17:10:50 06/27/19 23 06/26/2022 urina lysis , dipst ick Leukocytes Large Not Available [place] [address] [address], [place], [address], 06/26/2022 15:48:22 06/27/19 23 06/26/2022 urina lysis , dipst ick Nitrite positi ve Not Available [place] [address] [address], [place], [address], 06/26/2022 15:48:22 06/27/19 23 06/26/2022 urina lysis , dipst ick Urobilinogen 8 Not Available [place] [address] [address], [place], [address], 06/26/2022 15:48:22 06/27/19 23 06/26/2022 urina lysis , dipst ick Protein 30 Not Available [place] [address] [address], [place], [address], 06/26/2022 15:48:22 06/27/19 23 06/26/2022 urina lysis , dipst ick pH 5.5 Not Available [place] [address] [address], [place], [address], 06/26/2022 15:48:22 06/27/19 23 06/26/2022 urina lysis , dipst ick Blood Large Not Available [place] [address] [address], [place], [address], 06/26/2022 15:48:22 06/27/19 23 06/26/2022 urina lysis , dipst ick Specific [place] 1.010 Not Available [place] [address] [address], [place], [address], 06/26/2022 15:48:22 06/27/19 23 06/26/2022 urina lysis , dipst ick Ketone Negati ve Not Available [place] [address] [address], [place], [address], 06/26/2022 15:48:22 06/27/19 23 06/26/2022 urina lysis , dipst ick Bilirubin Small Not Available [place] [address] [address], [place], [address], 06/26/2022 15:48:22 06/27/19 23 06/26/2022 urina lysis , dipst ick Glucose Negati ve Not Available [place] [address] [address], [place], [address], 06/26/2022 15:48:22 06/27/19 23 06/26/2022 urina lysis , dipst ick Appearance Turbid Not Available [place] [address] [address], [place], [address], 06/26/2022 15:48:22 06/27/19 23 06/26/2022 urina lysis , dipst ick Color Olema Not Available [place] [address] [address], [place], [address], 06/26/2022 15:48:22 05/10/19 23 05/10/2022 CT, lower extre mity, w/o contr ast No observ ation record ed. [facility] (Radiology) [address], [place], [address], 05/15/2022 18:59:22 08/11/19 23 07/28/2022 MAMMO , scree nighat, tomos ynthe sis, bilat eral, w/ CAD No observ ation record ed. [email or web address] Not Available 2022 14:41:21 09/23/19 23 09/22/2022 XR, knee, 1 or 2 view No observ ation record ed. [facility] [address], [place], [address], 09/25/2022 21:35:04 09/23/19 23 09/22/2022 US, doppl er, venou s No observ ation record ed. [facility] [address], [place], [address], 09/25/2022 21:35:22 Result Notes None recorded. Problems Name Problem SNOMED Code Status Onset Date Resolution Date Notes Provider Name and Address Organization Details Recorded Time Benign essential hypertensio n 3870048 Active 2022 Lester naylor MD [address], [place], [address], [facility], [facility] 3 17:17:20 Chronic acquired lymphedema 19315828 Active 2022 MD Prashant Lacy [address], [place], [address], [facility], [facility] 3 22:11:42 Atrial fibrillatio n 41116447 Active 2022 MD Prashant [place], [address], [place], [place], [address] [place] [address], [facility], [facility] 3 22:11:40 Major depressive disorder 043781989 Active 2022 MD Prashant Lacy [address], [place], [place], [address] [place] [address], [facility], [facility] 3 22:11:46 Adjustment disorder with anxious mood 46914732 Active 2022 MD Prashant Lacy [address], [place], [place], [address] [place] [address], [facility], [facility] 3 22:11:37 Recurrent deep vein thrombosis 158472155 Active 2022 MD Prashant Lacy [address], [place], [place], [address] [place] [address], [facility], [facility] 3 22:11:58 Pruritic disorder 889456824 Active 2022 MD Prashant Lacy [address], [place], [place], [address] [place] [address], [facility], [facility] 3 22:33:38 Acute urinary tract infection 839180171 Active 2022 MD Prashant [address], [place], [place], [address] [place] [address], [facility], [facility] 3 17:18:36 Herpes labialis 3676983 Active 2022 MD Prashant Lacy [address], [place], [place], [address] [place] [address], [facility], [facility] 3 15:56:44 Cellulitis of lower limb 812577923 Active 2022 MD Prashant Lacy [place], [address], [place], [address], [facility], [facility] 06:44:52 Problem Notes None recorded. Procedures Surgical History Date Name Laterality Status Provider Name and Address Organization Details Recorded Time 9 section completed MD Prashant Waldron [address], [place], [place], [address] [place] [address], [facility], [facility] 05/29/2022 22:15:53 0 Gastric bypass for obesity completed MD Prashant Waldron [address], [place], [place], [address] [place] [address], [facility], [facility] 05/29/2022 22:15:13 9 section completed MD Prashant Waldron [address], [place], [address] [place] [address], [facility], [facility] 05/29/2022 22:15:44 5 section completed MD Prashant Waldron [address], [place], [address] [place] [address], [facility], [facility] 05/29/2022 22:15:32 Imaging Results Imaging Date Name Status LastModified by Organiz ation Details LastModified Time 05/10/2022 CT, lower extremity, w/o contrast completed [facility] (Radiology) [address] , [place], [address], 05/15/2022 18:59:22 07/28/2022 MAMMO, screening, tomosynthesis , bilateral, w/ CAD completed [email or web address] Information not available 08/30/2022 14:41:21 09/22/2022 XR, knee, 1 or 2 view completed [facility] [address] [facility], [place], [address], 09/25/2022 21:35:04 09/22/2022 US, doppler, venous completed [facility] [address], [place], [address], 09/25/2022 21:35:22 Procedure Notes None recorded. Medical Equipment None Reported. Allergies Allergen ID Allergen Name Allergen Category Reaction Reaction Severity Criticality Documentation Date Start Date Code Code System Note Provider Name and Address Organization Details Recorded Time 6176 nitrofura ntoin medicatio n Not available Not available Not available 06/26/2022 7454 RxNorm Lester bergeron MD [address], [place], [address], [facility], [facility] 3 15:57:27 Medications Name Sig Start Date Stop Date Status Note LastModified by Organization Details LastModified Time doxycycline hyclate 100 mg capsule 05/29 completed Not Available Not Available Not Available ammonium lactate 12 % lotion APPLY TOPICALLY TO THE AFFECTED AREA TWICE DAILY active Not Available Not Available No t Available trazodone 50 mg tablet TAKE 1 TABLET BY MOUTH EVERY NIGHT AT BEDTIME FOR INSOMNIA 05/29 completed Not Available Not Available Not Available fluconazole 150 mg tablet TAKE 1 TABLET BY MOUTH NOW ONE DOSE 05/29 completed Not Available Not Available Not Available amiodarone 200 mg tablet TAKE 1 TABLET BY MOUTH EVERY 12 HOURS FOR ATRIAL FIBRILLAT ION 05/29 completed Not Available Not Available Not Available valacyclovi r 1 gram tablet TAKE 2 TABLETS BY MOUTH EVERY 12 HOURS FOR 1 DAY active Not Available Not Available No t Available clobetasol 0.05 % topical cream APPLY A THIN LAYER TO THE AFFECTED AREAS BY TOPICAL ROUTE 2 TIMES PER DAY 05/29 completed Not Available Not Available Not Available hydroxyzine HCl 50 mg tablet TAKE 1 TABLET BY MOUTH EVERY DAY IN THE EVENING active Not Available Not Available No t Available ciprofloxac in 500 mg tablet TAKE 1 TABLET BY MOUTH TWICE DAILY FOR 7 DAYS 05/29 completed Not Available Not Available Not Available sulfamethox azole 800 mg-trimetho prim 160 mg tablet TAKE 1 TABLET BY MOUTH EVERY 12 HOURS FOR 7 DAYS active Not Available Not Available No t Available hydrocodone 10 mg-acetamin ophen 325 mg tablet TAKE 1 TABLET BY MOUTH EVERY 6 HOURS NEEDED active Not Available Not Available No t Available omeprazole 40 mg capsule,del ayed release TAKE 1 CAPSULE BY MOUTH EVERY DAY 05/29 completed Not Available Not Available Not Available triamcinolo ne acetonide 0.1 % topical cream APPLY THIN LAYER TOPICALLY TO THE AFFECTED AREA TWICE DAILY active Not Available Not Available No t Available amitriptyli ne 25 mg tablet TAKE 1 TABLET BY MOUTH EVERY DAY 05/29 completed Not Available Not Available Not Available folic acid 1 mg tablet TAKE 1 TABLET BY MOUTH EVERY DAY active Not Available Not Available No t Available hydroxyzine HCl 25 mg tablet TAKE 1 TABLET BY MOUTH THREE TIMES DAILY NEEDED active Not Available Not Available No t Available furosemide 20 mg tablet Take 1 tablet every day by oral route for 30 days. active Not Available Not Available No t Available gabapentin 100 mg capsule TAKE 1 CAPSULE BY MOUTH AT BEDTIME FOR NEUROPATH Y 05/29 completed Not Available Not Available Not Available amoxicillin 875 mg-potassiu m clavulanate 125 mg tablet TAKE 1 TABLET BY MOUTH EVERY 12 HOURS FOR 5 DAYS 08/02 completed Not Available Not Available Not Available escitalopra m 10 mg tablet TAKE 1 TABLET BY MOUTH EVERY DAY FOR 14 DAYS 05/29 completed Not Available Not Available Not Available escitalopra m 20 mg tablet TAKE 1 TABLET BY MOUTH EVERY DAY 05/29 completed Not Available Not Available Not Available bupropion HCl XL 150 mg 24 hr tablet, extended release TAKE 1 TABLET BY MOUTH EVERY DAY active Not Available Not Available No t Available amiodarone 100 mg tablet Take 1 tablet every day by oral route for 30 days. active Not Available Not Available No t Available metoprolol tartrate 25 mg tablet TAKE 1 TABLET BY MOUTH TWICE DAILY active Not Available Not Available No t Available nitrofurant oin monohydrate /macrocryst als 100 mg capsule TAKE 1 CAPSULE BY MOUTH EVERY 12 HOURS FOR 5 DAYS 06/26 completed Not Available Not Available Not Available valsartan 320 mg-hydrochl orothiazide 25 mg tablet TAKE 1 TABLET BY MOUTH EVERY DAY active Not Available Not Available No t Available Dakin's Solution 0.125 % USE DIRECTED WITH EACH DRESSING CHANGE 05/29 completed Not Available Not Available Not Available Xarelto 10 mg tablet TAKE 1 TABLET BY MOUTH ONCE A DAY FOR DVT 05/29 completed Not Available Not Available Not Available Xarelto 20 mg tablet TAKE 1 TABLET BY MOUTH EVERY DAY active Not Available Not Available No t Available Vitals Date Recorded Heart rate Respiratory rate Body temperature Body weight Body height Body mass index (BMI) Oxygen saturation Oxygen saturation in Arterial blood by Pulse oximetry Systolic blood pressure Diastolic blood pressure Provider Name and Address Organization Details Last Updated DateTime 3 74 /min 16 /min 97.8 [degF] 947048. 6 g 167.64 cm 54.2 kg/m2 98 % 98 % 135 mm[Hg] 90 mm[Hg] miesha thompsonn [facility], [facility] 3 17:05:11 Date Recorded Body height Provider Name an d Address Organization Details Last Updated DateTime 06/26/2022 167.64 cm Lester Acuña MD [address], [place], [address], [facility], [facility] 06/26/2022 15:44:16 Date Recorded Heart rate Respiratory rate Body temperature Body mass index (BMI) Body weight Oxygen saturation Oxygen saturation in Arterial blood by Pulse oximetry Systolic blood pressure Diastolic blood pressure Provider Name and Address Organization Details Last Updated DateTime 3 100 /min 18 /min 97.9 [degF] 49 kg/m2 773641. 36 g 95 % 95 % 130 mm[Hg] 70 mm[Hg] logan reagan [facility], [facility] 3 15:46:46 Social History Question Answer Notes LastModified by Organizat ion Details LastModified Time Tobacco Smoking Status Never Smoker Lester Acuña MD [address], [place], [address], [facility], [facility] 05/29/2022 22:35:38 Are You Blind Or Do You Have Difficulty Seeing? No Information not available 05/29/2022 Are You A Caregiver? No Information not available 05/29/2022 In The 14 Days Before Symptom Onset, Have You Had Close Contact With A Laboratory-confir med COVID-19 While That Case Was Ill? No Information not available 05/29/2022 In The 14 Days Before Symptom Onset, Have You Had Close Contact With A Person Who Is Under Investigation For COVID-19 While That Person Was Ill? No Information not available 05/29/2022 Have You Been To An Area Known To Be High Risk For COVID-19? No Information not available 05/29/2022 Are You Currently Employed? No On Disability Since 2018 Information not available 05/29/2022 Are You Deaf Or Do You Have Serious Difficulty Hearing? No Information not available 05/29/2022 What Type Of Diet Are You Following? REGULAR Information not available 05/29/2022 What Is The Highest Grade Or Level Of School You Have Completed Or The Highest Degree You Have Received? [id number] Information not available 05/29/2022 Have There Been Any Changes To Your Family Or Social Situation? Yes Chronic Wound On Her Right Leg Information not available 05/29/2022 Which Of Your Hands Is Dominant? Right Information not available 05/29/2022 What Was The Date Of Your Most Recent Tobacco Screening? 05/29/2022 Information not available 05/29/2022 What Is Your Relationship Status? Single Information not available 05/29/2022 Do You Use Your Seat Belt Or Car Seat Routinely? Yes Information not available 05/29/2022 Do You Have Smoke And Carbon Monoxide Detectors In Your Home? Yes Information not available 05/29/2022 Do You Feel Stressed (tense, Restless, Nervous, Or Anxious, Or Unable To Sleep At Night)? [id number] Information not available 05/29/2022 Do You Use Any Illicit Or Recreational Drugs? No Information not available 05/29/2022 Have You Recently Traveled Abroad? No Information not available 05/29/2022 Are You Currently In School? No Information not available 05/29/2022 Do You Or Have You Ever Used Any Other Forms Of Tobacco Or Nicotine? No Information not available 05/29/2022 Sex: Female Functional Status Question Answer Note LastModified by Organizat ion Details LastModified Time Do you have difficulty walking or climbing stairs? Yes doing better Information not available 05/29/2022 Do you have transportation difficulties? No Information not available 05/29/2022 Are you able to walk? YESWOREST Information not available 05/29/2022 Do you have difficulty doing errands alone? No Information not available 05/29/2022 Are you able to care for yourself? Yes Information n ot available 05/29/2022 Do you have difficulty dressing or bathing? No Information not available 05/29/2022 Mental Status Question Answer Note LastModified by Organization D etails LastModified Time Do you have difficulty concentrating, remembering or making decisions? No Information no t available 05/29/2022 Family History Relationship Description Onset Age of this Age Resolved Age Notes LastModified by Organization Details LastModified Time Father Arthritis [email or web address] Not availab le 05/29/2022 22:16:54 Father Diabetes mellitus [email or web address] Not available 2022 22:17:10 Father Hypertensive disorder [email or web address] Not available 2022 22:18:46 Mother Arthritis ababalola Not availab le 05/29/2022 22:16:54 Mother Diabetes mellitus ababalola Not available 2022 22:17:10 Mother Glaucoma ababalola Not availabl e 05/29/2022 22:17:20 Mother Hypertensive disorder ababalola Not available 2022 22:18:46 Brother Hypertensive disorder ababalola Not available 2022 22:18:46 Medical History Condition Response multiple sclerosis N Coronary Artery Disease N Other N Gout N Blood Diseases N Kidney Stones N Benign prostatic hypertrophy-BPH N Hyperthyroidism N Blood Transfusion N fibromuscular dysplasia N Polycystic ovarian disease N COPD N Depression Y myocardial infarction N Peptic ulcer disease N Alzheimers dementia N legal blindness N Folate deficiency N Anxiety Disorder Y Muscle, Joint, or Bone Problems Y Obesity Y Vision or Eye Problems N Arthritis Y Polyps N Infertility N Mental Disorder N abdominal aortic aneurysm N Sickle with thalassemia N Cancer N Varicosities N Stroke N Prostate cancer N Fibrocystic breast disease N B12 deficiency N Headaches N Fibromyalgia N Thalassemia N Kidney Disease N prediabetes N Heart Problems Y Menorrhagia N hearing impairment N Ear or Hearing Problems N Hospitalizations N Systemic Lupus erythematosus N Sickle cell trait N Skin Problems N Eating Disorder N MRSA exposure N Constipation N alcohol dependence N Nicotine(tobacco) dependence N Tuberculosis N AIDS/HIV N Vitamin D deficiency N Deep vein thrombosis Y Asthma N Sickle cell disease N Hepatitis N Pulmonary Embolism N Chronic Ear Infections N Chicken Pox N thoracic aortic aneurysm N Autism Spectrum Disorder (ASD) N Thrombophilias N cataract N Breast Cancer N glaucoma N Menopause N Parkinsons disease N Hypothyroidism N Lung Disease N Developmental or Behavioral Disorders N Defects or Inherited Disease N Breast Problem N Difficulty Swallowing N Anesthesia Complications N Meniere's disease N Vascular dementia N Endometriosis N Bladder or Kidney Problems N High Cholesterol N Liver Disease N Allergies/Hayfever N Thyroid Problems N Multiple myeloma N GI Problems N ADD/ADHD N Anemia N Mental Illness N Diabetes N Ovarian Cancer N Bedwetting N Seizures/Epilepsy N Fibroids N Congestive Heart Failure (CHF) N Hyperlipidemia N Eczema N Abuse/Domestic Violence N Diverticulitis N Dementia N Sleep apnea N Reflux/GERD N Fibroadenoma N Heart Disease Y Hypertension N Pre-Eclampsia N Osteoporosis N Gynecological History Statement/Question Response Current Control Method None Obstetrics History GPAL:G 0 P 0 0 0 0 Immunizations Vaccine Type Date Status Note Provider Nam e and Address Organization Details Recorded Time Influenza, split virus, quadrivalent, PF 01/31/2021 completed Lester Acuña MD [address] [place] [address], [id number], [facility] 06/26/2022 15:44:23 Past Encounters Encounter ID Performer Location Encounter Start Date Encounter Closed Date Diagnosis/Indication Diagnosis SNOMED-CT Code Diagnosis ICD10 Code [id number] Lester templeton MD [facility] [address] [address] 05/29/2022 16:20:14 05/29/2022 17:48:13 Adult health examination 259935522 Z00.01 Depression screening 171 215962 Z13.31 Viral screening 50150213 4 Z11.59 Screening for malignant neoplasm of breast 946434262 Z12.39 Screening for malignant neoplasm of colon 126974524 Z12.11 Chronic ac quired lymphedema 08740730 I89.0 Atrial fibrillation 4943 6004 I48.91 Major depr essive disorder 705006681 F32.9 Adjustment disorder with anxious mood 84184074 F43.22 Body mass index 40+ - severely obese 937563094 Z68.43 Benign ess ential hypertension 9155338 I10 Pruritic disorder 982809 002 L29.9 [id number] Lester templeton MD [facility] [address] [place] [address] 06/26/2022 15:23:30 06/26/2022 16:07:12 Benign essential hypertension 0421766 I10 Chronic ac quired lymphedema 52152498 I89.0 Adjustment disorder with anxious mood 28342327 F43.22 Acute urin giuseppe tract infection 700726581 N39.0 Herpes labialis 8099634 B00.1 Health Concerns Section Related Observation LastModified by Organization Detai ls LastModified Time None Recorded Concern Status LastModified by Organization Details LastModified Time None Recorded Advance Directives Directive None Recorded Payers Encounter Date Sequence Insurance Name Policy Number Policy Laurent Covered Member ID Laurent Member ID Guarantor Name 05/29/2022 1 [employer] (MEDICARE REPLACEMENT HMO) [id number] Tiarra Addison [id number] Tiarra Addison 06/26/2022 1 [employer] (MEDICARE REPLACEMENT HMO) [id number] Tiarra Addison [id number] Tiarra Addison Notes Date Note Type Note Provider Name and Address Organization Details Recorded Time 05/29/19 23 text/htm l Yearly PhysicalReported bypatient.Physical Activity:does not exercise on a regular basis;deconditioned due to sedentary lifestyle smoking statusno tobacco use Depression Risk:never feels sad, empty, or tearful; no loss of interest in activities; no significant changes in weight; no sleep disturbances or insomnia; no agitation; no loss of energy; no feelings of worthlessness or guilt; no thoughts of suicide; no history of depression; no history of mood disorders [employer] Historyprior pap smear, normal results; prior mammogram, normal results Lester Acuña MD [address], [place], [address], [facility], [facility] 05/29/2022 22:38:36 06/27/19 23 text/htm l EdemaReported bypatient.Location:[facility] Quality:legs do not swell equally Duration:constant Onset/Timing:started several years ago Context:prior history of edema;prior history of deep vein thrombosis Modifying Factors:relieved by position (elevating legs) (and lymphedema pumps) Associated Symptoms:no shortness of breath; no shortness of breath during exertion; no chest pain; no palpitationsHypertension F/UReported bypatient.Medications:taking medications as directed; no side effects from medication Lifestyle:regular exercise; limiting/avoiding salt; compliant with low salt diet Associated Symptoms:no dizziness; no lightheadedness; no chest pain; no shortness of breath; no palpitations; no edema; no calf pain with exertion; no headacheLower Urinary Tract Symptoms (LUTS)Reported bypatient.Quality:aching; continuous; pressure; worsening Onset/Timing:< 1 week Context:abnormal voiding frequency; obesity; she was out of town visiting family and they had covid infection about a few weeks before her visit but she started feeling sick so she decided to buy covid tests x 2 which were negative. She still does not feel good. Associated Symptoms:no fever;abdominal pain;chills;urgency;frequenc y;dysuria Harpfeels fatigued and tired went out of town this past weekenddid 2 covid test- neg Lester Acuña MD [address] [facility], [address], [place], [address], [facility], [facility] 06/26/2022 17:01:33 OBGyn Episode No OBEpisode recorded.
--- OUTSIDE RECORDS SUMMARY | 2024-03-24 18:52 | XMS_ITS | Encounter Summary ---
Author Organization [facility] Address Critical access hospital[address] [place] [address] [place] [address] Care Team Providers Care Educational Programming Director Name Role Phone None, Provider MD Primary Care Provider Unavaila ble Reason for Visit * Reason Comments Leg Pain ARASELI LEG PAIN/SWELLIN G, NO INJURY, PT HAS H/O LYMPH EDEMA RECENTLY MOVED HERE FROM [place] Problem (Skin) PT NOTED WITH BLISTE R AREA UNDER RT NARE STARTED THIS AM Encounter Details Date Type Department Care Team (Late st Contact Info) Description 01/06/2018 11:13 AM CDT - 01/06/2018 1:52 PM CDT Hospital Encounter [facility] [address] [place] [address] Brittney Aleman [address] [place] [address] Leg Pain (ARASELI LEG PAIN/SWELLING, NO INJURY, PT HAS H/O LYMPH EDEMA RECENTLY MOVED HERE FROM [place]); Problem (Skin) (PT NOTED WITH BLISTER AREA UNDER RT NARE STARTED THIS AM) Discharge Disposition: Home or Self Care (Routine Discharge) Social History Tobacco Use Types Packs/Day Years Used Date Smoking Tobacco: Never Smokeless Tobacco: Never Alcohol Use Standard Drinks/Week Comments Yes 0 (1 standard drink = 0.6 oz pur e alcohol) DAILY Comments No Sex and Gender Information Value Date Recorded Sex Assigned at Not on file Legal Sex Female 11:02 AM CDT Gender Identity Not on file Sexual Orientation Not on file documented as of 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 Last Filed Vital Signs Vital Sign Reading Time Taken Comments Blood Pressure 118/92 01/06/2018 11:19 AM CDT Pulse 83 01/06/2018 11:19 AM CDT Temperature 36.7 ??C (98.1 ??F) 01/06/2018 11:19 AM C DT Respiratory Rate 20 01/06/2018 11:19 AM CDT Oxygen Saturation 98% 01/06/2018 11:22 AM CDT Inhaled Oxygen Concentration - - Weight 99.3 kg (219 lb) 01/06/2018 11:19 AM CDT Height 170.2 cm (5' 7 ) 01/06/2018 11:19 AM CDT Body Mass Index 34.3 01/06/2018 11:19 AM CDT documented in 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 Discharge Instructions * Discharge Instructions* Brittney Aleman PA-C - 01/06/2018 1:48 PM CDT Follow-up with primary care provider for future refills on pain medication. Return to ED for worsening pain or swelling to lower extremities, chest pain, shortness of breath, any other concerns. * Attachments The following attachments cannot be sent through Care Everywhere. * CHRONIC PAIN DISCHARGE INSTRUCTIONS (GAMBIAN) documented in 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 Medications at Time of Discharge ALPRAZolam 0.5 MG tablet Take 0.5 mg by mouth 3 (three) times daily as needed for Anxiety. hydrocodone-aceta minophen 5-325 MG tablet Take 1 tablet by mouth every 4 (four) hours as needed for Pain (max 6 tabs a day). 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 * Brittney Aleman PA-C - 01/06/2018 1:16 PM CDT Emergency Department Note Chief Complaint Chief Complaint Patient presents with ??? Leg Pain ARASELI LEG PAIN/SWELLING, NO INJURY, PT HAS H/O LYMPH EDEMA RECENTLY MOVED HERE FROM [place] ??? Problem (Skin) PT NOTED WITH BLISTER AREA UNDER RT NARE STARTED THIS AM History of Present Illness 47-year-old female presents to urgent care requesting medication refill. States she takes hydrocodone for chronic pain. She has chronic pain to bilateral lower extremities due to history of lymphedema and previous DVTs. She is currently on Coumadin. She states that this is a chronic issue that has been present for the last 10 years. States her pain and swelling in her lower extremities is no worse than baseline and she does not want any workup or testing done today. States she is only here for pain control until she can find a new PCP to follow-up with as she recently moved to the area. Medical History ALLERGIES: No Known Allergies MEDICATIONS: Prior to Admission medications Medication Sig Start Date End Date Taking? Authorizing Provider ALPRAZolam 0.5 MG tablet Take 0.5 mg by mouth 3 (three) times daily as needed for Sleep. Yes Doc Abstract hydrocodone-acetaminophen 5-325 MG tablet Take 1 tablet by mouth every 4 (four) hours as needed forPain (max 6 tabs a day). 01/06/18 Yes Brittney Aleman PA-C PAST MEDICAL HISTORY: Past Medical History: Diagnosis Date ??? Anxiety ??? Insomnia ??? Lymph edema PAST SURGICAL HISTORY: Past Surgical History: Procedure Laterality Date ??? SECTION ??? GASTRIC BYPASS ??? TUBAL LIGATION FAMILY HISTORY: Family History Problem Relation Age of Onset ??? Hypertension Mother ??? Hypertension Father SOCIAL HISTORY: Social History Tobacco Use ??? Smoking status: Never Smoker ??? Smokeless tobacco: Never Used Substance Use Topics ??? Alcohol use: Yes Comment: DAILY ??? Drug use: No Review of Systems Review of Systems Constitutional: Negative. Negative for fever. Respiratory: Negative. Negative for chest tightness and shortness of breath. Cardiovascular: Positive for leg swelling. Negative for chest pain. Gastrointestinal: Negative. Negative for abdominal pain, diarrhea and vomiting. Musculoskeletal: Positive for arthralgias. Negative for back pain, neck pain and neck stiffness. Neurological: Negative. Negative for headaches. Physical Exam Filed Vitals: 01/06/18 1119 01/06/18 1122 BP: (!) 118/92 Pulse: 83 Resp: 20 Temp: 98.1 ??F (36.7 ??C) TempSrc: Temporal SpO2: 98% 98% Weight: 99.3 kg (219 lb) Height: 5' 7 (1.702 m) Physical Exam Constitutional: She is oriented to person, place, and time. She appears well- developed and well-nourished. No distress. HENT: Head: Normocephalic and atraumatic. Eyes: Conjunctivae and EOM are normal. Neck: Normal range of motion. Cardiovascular: Normal rate, regular rhythm and normal heart sounds. Pulmonary/Chest: Effort normal and breath sounds normal. No respiratory distress. Abdominal: Soft. Bowel sounds are normal. Musculoskeletal: Bilateral lower extremity edema, right worse than left No overlying erythema or abnormal warmth Skin temperature is normal Pedal pulses palpable Neurological: She is alert and oriented to person, place, and time. Skin: Skin is warm and dry. Psychiatric: She has a normal mood and affect. Her behavior is normal. Diagnostic Studies / Procedures ELECTROCARDIOGRAMS: No results found for this visit on 01/06/18. LABORATORY STUDIES: No results found for this visit on 01/06/18. IMAGING STUDIES No orders to display ED Course / Medical Decision Making Patient presents to urgent care with chronic pain and swelling to lower extremities. History of lymphedema and previous DVTs. She is on Coumadin. She denies any acute symptoms and states she is only here for a refill on hydrocodone. She does not want any workup or testing done today. Will give short -term supply of hydrocodone and discharge to follow-up with PCP. Return precautions discussed. Clinical Impression Medication refill (Primary) Medications - No data to display Current Discharge Medication List START taking these medications Details hydrocodone-acetaminophen 5-325 MG tablet Take 1 tablet by mouth every 4 (four) hours as needed forPain (max 6 tabs a day). Qty: 15 tablet, Refills: 0 Class: Print [facility] [id number] [facility] (Ph #: [phone]) Follow-Up: Jason Terry MD [address] [place] [address] [place] [id number] Disposition: Discharge Brittney Aleman PA-C 01/06/2018 Brittney Aleman PA-C 01/06/18 1351 Cosigned by Geo Maxwell MD at 01/06/2018 4:27 PM CDT * Ansley Charles RN - 01/06/2018 12:12 PM CDT AMB TO UC, C/O SWELLING AND LYMPHEDEMA TO BILAT LOWER LEGS, RT>LT, ADMITS FREQ BLOOD CLOTS TO LEGS. RECENT MOVE FROM [place], [place]. STATES USUALLY GETS PAIN MEDICINE FOR THIS. LAST GOT VICODIN FROM [facility] 2 DAYS AGO. RECEIVED MORPHINE WHILE IN THE ED. STATES HER LEGS HAVE BEEN SWOLLEN LIKE THIS FOR YEARS. PPS 12/16, STATES VICODIN NOT HELPING. documented in 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 Plan of Treatment Not on file documented as of 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 Visit Diagnoses Diagnosis Medication refill- Primary Issue of repeat prescriptions documented in 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 Care Teams Educational Programming Director Relationship Specialty Start Date End Date None, Provider, PCP - General 01/06/18 documented as of 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
--- OUTSIDE RECORDS SUMMARY | 2024-03-24 18:52 | XMS_ITS | Data Portability ---
Author Organization [place] [facility], STLOUISA[facility] [facility] Address [address] [place] [address] Assessment Encounter Date Assessment Date Assessment LastModified by Organization Details LastModified Time 2020 2020 HTN -now controlled OA knee -received records from old PCP, pain management referral pending -CSMD appropriate -will refill until appt. with pain management -UDS today [email or web address] Not available 2020 16:10:58 01/31/2021 01/31/2021 WAE -mammogram due -gynecology referral -colonoscopy done 2018, normal per pt. Will call old provider to find out repeat interval. Insomnia -is on chronic opiates, so will attempt to stop ambien and transition to trazodone. Ok to take 1-3 tablets at night Document 5 ADLs or 4 Independent ADLs below Current Physical Activity as compared to last year: ? ? ?same? ? ? How often do you exercise?1-2 times per week? ? ? How would you rate your health?Good? ? ? How is your memory compared to last year?Same? ? ? Do you have access to reliable transportation?Always? ? ? Do you have reliable support available?Always? ? ? Difficulty managing communication or financial concerns? No Difficulty affording or obtaining medications? No Difficulty with shopping or meal preparation? No Ambulatory Status: ? ? ?independent? ? ? Difficulty with bathing?no? ? ? Difficulty with grooming or dressing? No Difficulty with toileting? no Difficulty with eating? No ? ? ? Vision:? ? ? requires glasses/contacts for routine vision ? ? ? Hearing: ? ? ? normal ? ? ? Speech: ? ? ? normal ? ? ? Fall Risk Screening: (cyrus all that apply): Diagnoses (3 or more existing): yes ? ? ? Prior History of falls within 3 months: no ? ? ? Incontinence: yes ? ? ? Visual Impairment: yes ? ? ? Impaired functional mobility: yes ? ? ? Environmental Hazard: no ? ? ? Polypharmacy: yes ? ? ? Pain affecting level of function: yes ? ? ? Cognitive Impairment: no ? ? ? Total number of boxes marked: 6 ? ? ? 4 or more boxes marked are considered at risk Depression Screening (18+ y/o) Have you felt depressed or lgnz-und-elg over the past 2 months? no ? ? ? Have you had a loss of interest in things that normally bring you pleasure? no ? ? ? Have you felt fatigued or had a loss of energy recently? no ? ? ? If two or more Yes then complete and document results from either a: PHQ 9 form, Standard Screening Tool, or Clinical Interview. Opioid Screening: Has your patient required or used more than a 15 day supply of narcotic medication over the last 12 months for a non-terminal diagnosis? yes ? ? ? If yes, are there alternative options besides opioids for the patient's pain? no ? ? ? Urinary Incontinence Screening: During the last 3 months- have you leaked urine (even a small amount)? yes ? ? ? If Yes, please distribute educational material. Please assess the overall pain presence in the patients day to day life: Pain Screenin ? ? ? Pain Plan: ? Preventive Medicine: (Please Use D if patient declines, N/A for not applicable, S for scheduled, or A for advised. Osteoporosis Screening (67+y/o): N/A ? ? ? Date: __ Breast Cancer Screening (52-74 y/o, every 27 mo): A ? ? ? Date: __ Colorectal Cancer Screening: FOBT (50-75 y/o): ? ? ? Date: __ Colonoscopy: ? ? ? Date: __2017 Influenza Vaccine (65+y/o): ? ? ? Date: __01/31/21 Pneumovax 23 Vaccine (65+y/o): ? ? ? Date: __ Prevnar 13 Vaccine (65+y/o): ? ? ? Date: __ Advanced care planning: A ? ? ? Date: __RESULT: Information given/Discussion ? ? ? Name of Eye Care Provider: __ Visual Acuity Test Result (required for IPPE only) L eye: 20/____ R eye: 20/___ Renal/Urinary: GFR must be completed on ALL patients regardless of current renal disease. eGFR: ___ Date: ___ (Provided GFRs need to be consistent for more than a 3 month period) Chronic Kidney Disease (CKD) ? ? ? Patients diagnosed with Diabetes: Reviewed ? ? ? HbA1C<9: Result: ____ Date: ____ Microalbuminuria : Result: ____ Date: ____ Statin prescribed: ? ? ? If No: specify: ? ? ? Retinal Eye Exam: Result: ____ Date: ____ Name of Eye Care Provider: __ Patients Diagnosed with COPD: Reviewed ? ? ? Spirometry: ? ? ? Date: ____ Beta Agonist/AntiChol inergic Prescribed: ? ? ? Patients diagnosed with CHF: MILLIE or ARB prescribed: ? ? ? Beta Ana Cristina prescribed: ? ? ? LVF Assessment: Result: __ Date: __ Patients diagnosed with Rheumatoid Arthritis: Medication Prescribed: ? ? ? Patients diagnosed with Osteoporosis: Bone density test date: Medication prescribed: ? ? ? Start date if using medication: ____ Patients diagnosed with CAD: Statin prescribed: If No: specify: HMR([employer]ign[employer] Patients)reviewe d and updated on todays visit? yes ?___ Behavioral health referral: no ?___ Case management referral: no ?___ ? Comment: If yes please specify I discussed and/or provided education material for the following: Tobacco Cessation and Education: ? ? ? Fall Risk Prevention: ? ? ? Diet Modification: ? ? ? High Risk Medications: ? ? ? 90 Day Rx Fill: ? ? ? Urinary Incontinence: ? ? ? Physical Activity: yes ? ? ? [email or web address] Not available 01/31/2021 12:41:21 09/13/2021 09/13/2021 Lymphedema/DVT/L E cellulitis -now with wound VAC in place, has home health in place [email or web address] Not available 09/13/2021 11:02:54 10/13/2021 10/13/2021 Not seen [email or web address] Not available 11/2021 16:29:15 10/31/2021 10/31/2021 ARTHUR -start lexapro, advised on common side-effects -add hydroxyzine prn -f/u in 1 month Insomnia -sleep hygiene advocated, stop naps -amitriptyline prn [email or web address] Not available 10/31/2021 15:16:14 Plan of Treatment Reminders Order Date Submit Date Provider Last Modified By Organization Details Last Modified Time Details Appointments None recorded. Lab ferritin, serum or plasma 2020 [email or web address] [facility] ([facility]), [address], [address] [place] [address], [address], 16:07:42 CMP, serum or plasma 2020 [email or web address] [facility] [address]), [address], [facility], [place], [address], 16:07:42 TSH, serum or plasma 2020 [email or web address] [facility] ([facility]), [address], [facility], [place], [address], 16:07:42 lipid panel, serum 2020 [email or web address] [facility] ([facility]), [address], [facility], [place], [address], 16:07:42 CBC 2020 [email or web address] [facility] [address]), [address], [facility], [place], [address], 16:07:42 HbA1c (hemoglob in A1c), blood 2020 [email or web address] [facility] (8th Fl), [address], [address], [place], [address], 16:07:42 Referral gynecolog ist referral - Please schedule and contact patient with appointme nt informati on. Fax confirmat ion date/time to , Attn: Danitza *Thank you 2020 [email or web address] Not available 15:40:49 Procedures None recorded. Surgeries None recorded. Imaging MAMMO, screening , digital, bilateral , w/ CAD 2020 [email or web address] [facility] [place], [facility] [address], [place], [address], 17:35:06 Medication Orders hydrocodo ne 10 mg-acetam inophen 325 mg tablet 2020 [facility]140, [address], [place], [place], [id number], 15:41:50 trazodone 50 mg tablet 2020 021 [email or web address] [facility]10275, [address], [place], [place], [id number], 12:38:59 clobetaso l 0.05 % topical cream 2021 022 [facility]00146, [address], [place], [place], [id number], 2 11:03:08 folic acid 1 mg tablet 2021 022 [facility], [address] [place], [place], [id number], 11:03:06 furosemid e 20 mg tablet 2021 [facility]57446, [address], [place], [place], [id number], 11:03:08 omeprazol e 40 mg capsule,d elayed release 2021 [facility] #13931, [address] [place] [address], [place], [place], [id number], 11:03:07 valsartan 320 mg-hydroc hlorothia zide 25 mg tablet 2021 [facility]19854, [address] [place] [address], [place], [place], [id number], 11:03:09 amitripty line 25 mg tablet 2021 [facility] #55079, [address] [place] [address], [place], [place], [id number], 15:16:24 escitalop manjula 10 mg tablet 2021 [facility] #63991, [address] [place] [address], [place], [place], [id number], 15:16:28 hydroxyzi ne HCl 25 mg tablet 2021 [facility] #63907, [address] [place] [address], [place], [place], [id number], 15:16:25 escitalop manjula 20 mg tablet 2021 [facility] #00707, [address], [place], [id number], 15:16:25 Patient TargetsNo targets recorded. Patient Instructions Encounter Date Encounter Id Patient Instructions Last Modified By Organization Details Last Modified Time 2020 [id number] knee arthritis: care instructions [email or web address] Not available 2020 15:41:35 high blood pressure: care instructions [email or web address] Not available 2020 15:41:35 learning about high blood pressure [email or web address] Not available 2020 15:41:36 01/31/2021 [id number] insomnia: care instructions [email or web address] Not available 01/31/2021 12:37:01 09/13/2021 [id number] deep vein thrombosis: care instructions [email or web address] Not available 09/13/2021 11:02:57 learning about deep vein thrombosis [email or web address] Not available 09/13/2021 11:02:57 10/13/2021 [id number] Patient acknowledged, consented and participated in this virtual visit which was conducted using real time audio and video. [email or web address] Not available 10/13/2021 15:35:40 10/31/2021 [id number] anxiety disorder: care instructions [email or web address] Not available 10/31/2021 15:16:16 Patient acknowledged, consented and participated in this virtual visit which was conducted using real time audio and video. Not available 10/31/2021 14:24:25 Reason for Referral User Support Analyst Referral for Sc reening for malignant neoplasm of cervix Please schedule and contact patient with appointment information. Fax confirmation date/time to [phone], Attn: DanitzaThank you Referring Physician: Chan Amaya, Family Medicine, Encounter Date: 01/31/2021 Results Created Date Observation Date Name Description Value Unit Range Abnormal Flag Note LastModifiedBy Organization Detail LastModifiedTime 07/06/19 22 07/05/2021 XR, chest , 1 view No observ ation record ed. [email or web address] [facility] (Medical Records) [address], [place], [address], 07/13/2021 17:01:40 07/07/19 22 07/06/2021 US, lower extre mity, vascu lar No observ ation record ed. [address] (Medical Records) [address], [place], [address], 08/25/2021 10:53:02 07/07/19 22 07/06/2021 CT, lower extre mity, w/ contr ast No observ ation record ed. [address] (Medical Records) [address], [place], [address], 08/25/2021 10:52:35 07/10/19 22 07/09/2021 XR, chest , 1 view No observ ation record ed. [address] (Medical Records) [address], [place], [address], 08/25/2021 10:54:08 07/21/19 22 07/17/2021 NM, eryth rocyt e scan No observ ation record ed. [facility] (Medical Records) [address], [place], [address], 07/20/2021 11:00:10 10/12/19 22 10/11/2021 CT, lower extre mity, w/ contr ast No observ ation record ed. [facility] (Medical Records) [address], [place], [address], 10/12/2021 09:01:38 11/15/19 22 11/14/2021 XR, femur No observ ation record ed. [facility] (Medical Records) [address], [place], [address], 11/14/2021 18:12:40 Result Notes None recorded. Problems Name Problem SNOMED Code Status Onset Date Resolution Date Notes Provider Name and Address Organization Details Recorded Time Chest pain 69964028 Completed 201612/23/2020 Chan Amaya MD [address] [place] [address], [place], [address] , [facility] - [facility] [place] 1 15:28:57 [facility] hyperten theodora 48011103 Active 2016 Jeanne velazquez, [place] - [facility] [place] 7 09:47:14 Morbid obesity 729195668 Active 2016 Jeanne velazquez, [place] - [facility] [place] 7 09:47:24 Recurren t cellulit is 261979660 Completed 201602/08/2021 right lower extremit y Raji Riley null, [place] - [facility] [place] 1 13:04:25 Deep venous thrombos is 640647977 Active 2016 right lower extremit y x2, on chronic anticoag ulation Jeanne velazquez, [place] - [facility] [place] 7 09:48:36 Chronic anemia 664230615 Completed 201602/08/2021 Raji velazquez, [place] - [facility] [place] 1 13:02:33 Anxiety 82983839 Completed 201602/08/2021 Raji velazquez, [place] - [facility] [place] 1 13:02:30 Depressi ve disorder 39714507 Completed 201602/08/2021 Raji velazquez, [place] - [facility] [place] 1 13:04:07 Chronic kidney disease stage 2 728924960 Active 2016 Jeanne velazquez, [place] - [facility] [place] 7 09:49:04 Gastroes ophageal reflux disease 225928822 Completed 201612/23/2020 Chan Amaya MD [address] [address], [place], [address] , [place] [facility] [place] 1 15:43:20 Lymphede ma of lower extremit y 925063981 Completed 201602/08/2021 chronic, right leg Rajidayday Alexandralevar velazquez, [place] - [facility] 13:04:18 Pulmonar y embolism 56226575 Active 2016 pt is on chronic anticoag ulation Jeanne velazquez, [place] - [facility] 7 09:58:11 Gastroes ophageal reflux disease without esophagi tis 095414798 Active 2020 Chan Amaya MD [address] [place] [address] [address], [place], [address] , [place] - [facility] 15:40:31 Gastric ulcer 213865620 Completed 202002/08/2021 Raji velazquez, [place] - [facility] 13:04:13 Osteoart hritis of knee 901314526 Completed 202002/08/2021 Raji velazquez, [place] - [facility] 13:04:21 Problem Notes None recorded. Procedures Surgical History Date Name Laterality Status Provider Name and Address Organization Details Recorded Time 04/08/19 Gastric bypass for obesity completed Jeanne Velásquez [place] - [facility] 06/12/2016 09:50:43 Colonoscopy completed Not Available [facility] 15:05:29 endometrial ablation completed Chan Amaya MD [address] [place] [address] [address], [place], [address], [place] - [facility] 12/23/2020 15:49:37 Other completed Jeanne Velásquez [place] - [facility] 06/12/2016 09:50:24 Section completed Jeanne AGUAYO - [facility] 06/12/2016 09:50:32 Imaging Results Imaging Date Name Status LastModified by Organiz ation Details LastModified Time 07/05/2021 XR, chest, [email or web address] [facility] (Medical Records) [address], [place], [address], 07/13/2021 17:01:40 07/06/2021 US, lower extremity, vascular completed [address] (Medical Records) [address] [facility] [place], [address], 08/25/2021 10:53:02 07/06/2021 CT, lower extremity, w/ contrast completed [address] (Medical Records) [address] [facility] [place], [address], 08/25/2021 10:52:35 07/09/2021 XR, chest, 1 view completed [address] (Medical Records) 200 [facility], [place], [address], 08/25/2021 10:54:08 07/17/2021 NM, erythrocyte scan completed [facility] (Medical Records) [address] [facility], [place], [address], 07/20/2021 11:00:10 10/11/2021 CT, lower extremity, w/ contrast completed [facility] (Medical Records) [address] [facility] [place], [address], 10/12/2021 09:01:38 11/14/2021 XR, femur completed [facility] (Medical Records) [address] [facility] [place], [address], 11/14/2021 18:12:40 Procedure Notes None recorded. Medical Equipment None Reported. Allergies No known drug allergies Medications Name Sig Start Date Stop Date Status Note LastModified by Organization Details LastModified Time trazodone 50 mg tablet Take 1 tablet every day by oral route as needed for 30 days. 2020 active Not Available Not Available Not Avai lable clobetasol 0.05 % topical cream APPLY A THIN LAYER TO THE AFFECTED AREA(S) BY TOPICAL ROUTE 2 TIMES PER DAY 2021 active Not Available Not Available Not Avai lable hydrocodone 10 mg-acetamin ophen 325 mg tablet Take 1 tablet 3 times a day by oral route as needed for 30 days. 2020 active Not Available Not Available Not Avai lable omeprazole 40 mg capsule,del ayed release Take 1 capsule every day by oral route for 30 days. 2021 active Not Available Not Available Not Avai lable amitriptyli ne 25 mg tablet TAKE 1 TABLET BY MOUTH EVERY DAY 2021 active Not Available Not Available Not Avai lable warfarin 5 mg tablet Take 1 tablet every day by oral route. 12/23 completed Not Available Not Available Not Available folic acid 1 mg tablet Take 1 tablet every day by oral route for 30 days. 2021 active Not Available Not Available Not Avai lable hydroxyzine HCl 25 mg tablet Take 1 tablet 3 times a day by oral route as needed for 30 days. 2021 active Not Available Not Available Not Avai lable furosemide 20 mg tablet Take 1 tablet every day by oral route for 30 days. 2021 active Not Available Not Available Not Avai lable metoprolol succinate ER 25 mg tablet,exte nded release 24 hr Take 1 tablet every day by oral route. active Not Available Not Available No t Available zolpidem 10 mg tablet Take 1 tablet every day by oral route at bedtime. 12/23 completed Not Available Not Available Not Available escitalopra m 10 mg tablet Take 1 tablet every day by oral route for 14 days. 2021 active Not Available Not Available Not Avai lable escitalopra m 20 mg tablet Take 1 tablet every day by oral route for 30 days. 2021 active Not Available Not Available Not Avai lable Klor-Con 10 1 tab PO daily active Not Available Not Available No t Available valsartan 320 mg-hydrochl orothiazide 25 mg tablet Take 1 tablet every day by oral route for 30 days. 2021 active Not Available Not Available Not Avai lable Keflex 750 mg capsule Take 1 capsule twice a day by oral route. 12/23 completed Not Available Not Available Not Available Pristiq 50 mg tablet,exte nded release Take 1 tablet every day by oral route. 01/31 completed Not Available Not Available Not Available Xarelto 20 mg tablet Take 1 tablet(s) every day by oral route. active Not Available Not Available No t Available Lortab 5 mg-325 mg tablet Take 1 tablet every 6 hours by oral route as needed. 12/23 completed Not Available Not Available Not Available Saxenda 3 mg/0.5 mL (18 mg/3 mL) subcutaneou s pen injector ADMINISTE R 0.6 MG UNDER THE SKIN EVERY DAY 12/29 completed Not Available Not Available Not Available Vitals Date Recorded Body height Body mass index (BMI) Body weight Respiratory rate Body temperature Oxygen saturation Oxygen saturation in Arterial blood by Pulse oximetry Provider Name and Address Organization Details Last Updated DateTime 167.64 cm 52.9 kg/m2 270777. 86 g 16 /min 98.2 [degF] 97 % 97 % Vinita Joseph [facility] 15:31:19 Date Recorded Systolic blood pressure Diastolic blood pressure Provider Name and Address Organization Details Last Updated DateTime 2020 138 mm[Hg] 85 mm[Hg] Chan Amaya MD [address] [place] [address], [address], [facility] 2020 15:39:09 Date Recorded Body height Body mass index (BMI) Body weight Respiratory rate Body temperature Oxygen saturation Oxygen saturation in Arterial blood by Pulse oximetry Heart rate Systolic blood pressure Diastolic blood pressure Provider Name and Address Organization Details Last Updated DateTime 167.64 cm 53.6 kg/m2 321503. 67 g 16 /min 97.1 [degF] 95 % 95 % 92 /min 122 mm[Hg] 72 mm[Hg] Vinita Joseph [facility] 12:22:12 Date Recorded Body height Body mass index (BMI) Body weight Provider Name and Address Organization Details Last Updated DateTime 09/13/2021 167.64 cm 53.3 kg/m2 879014.48 g Vinita AGUAYO [facility] 09/13/2021 10:37:16 Date Recorded Body height Body mass index (BMI) Body weight Provider Name and Address Organization Details Last Updated DateTime 10/13/2021 167.64 cm 54.1 kg/m2 475032.44 g Consuelo Santana [place] - [facility] [place] 10/13/2021 15:36:32 Date Recorded Body height Body mass index (BMI) Body weight Provider Name and Address Organization Details Last Updated DateTime 10/31/2021 167.64 cm 53.3 kg/m2 668352.48 g Vinita Joseph [place] - [facility] [place] 10/31/2021 14:21:23 Social History Question Answer Notes LastModified by Organizat ion Details LastModified Time Tobacco Smoking Status Never Smoker Not Available [employer] 10/31/2021 13:53:24 Do You Have An Advance Directive? No [email or web address] Information not available 10/31/2021 What Is Your Level Of Alcohol Consumption? Heavy [email or web address] Information not available 10/31/2021 Are You Currently Employed? Yes Information not available 12/23/2020 Do You Or Have You Ever Used E-cigarettes Or Vape? Never Used Electronic Cigarettes [email or web address] Information not available 12/23/2020 What Is The Highest Grade Or Level Of School You Have Completed Or The Highest Degree You Have Received? [id number] Information not available 12/23/2020 Who Is Your Employer? [employer] [email or web address] Information not available 10/31/2021 Risk Stratification Score (AAFP) 4 Information not available 10/31/2021 In The Last 12 Months Did You Skip Medications To Save Money? Yes [email or web address] Information not available 12/23/2020 In The Last 12 Months, Was There A Time When You Needed To See A Doctor But Could Not Because Of Cost? Yes [email or web address] Information not available 12/23/2020 In The Last 12 Months, Have You Ever Had To Go Without Health Care Because You Didn? t Have A Way To Get There? No [email or web address] Information not available 12/23/2020 In The Last 12 Months Did You Ever Eat Less Than You [place] You Should Because There Wasn? t Enough Money For Food? No [email or web address] Information not available 12/23/2020 In The Past 12 Months Has The Electric, Gas, Oil, Or Water Company Threatened To Shut Off Services In Your Home? No [email or web address] Information not available 12/23/2020 Are You Worried That In The Next 2 Months You May Not Have Stable Housing? No [email or web address] Information not available 12/23/2020 Do You Feel Physically And Emotionally Unsafe Where You Currently Live? No [email or web address] Information not available 12/23/2020 Do You Want Help Finding Or Keeping Work Or A Job? Yes [email or web address] Information not available 12/23/2020 Do You Want Help With School Or Training? For Example, Starting Or Completing Job Training Or Getting A High School Diploma, GED, Or Equivalent? No [email or web address] Information not available 12/23/2020 Do You Often Feel Lonely? No [email or web address] Information not available 12/23/2020 Do You Want Help With Any Of Your Needs? Yes [email or web address] Information not available 12/23/2020 Are Any Of Your Needs Urgent? Yes [email or web address] Information not available 12/23/2020 Have You Had A Fever And/or Symptoms Of A Lower Respiratory Illness (cough, Difficulty Breathing, Etc)? No [email or web address] Information not available 12/23/2020 Have You Had Any Of These Symptoms: Chills ,Headache, Fatigue, Muscle Or Body Aches , Sore Throat, New Loss Of Taste Or Smell, Nausea Or Vomiting, Or Diarrhea? No [email or web address] Information not available 12/23/2020 Have You Had A COVID-19 Vaccine In The Last 7 Days? No [email or web address] Information not available 12/23/2020 In The Past 10 Days, Have You Been Told You May Have COVID-19 Or Have Been Tested For COVID-19? No [email or web address] Information not available 09/13/2021 Marital Status In Process Of Divorce [email or web address] Information not available 10/31/2021 What Was The Date Of Your Most Recent Tobacco Screening? 04/08/2019 [email or web address] Information not available 12/23/2020 How Many Children Do You Have? 3 [email or web address] Information not available 10/31/2021 Do You Have Smoke And Carbon Monoxide Detectors In Your Home? No [email or web address] Information not available 10/31/2021 Are You Passively Exposed To Smoke? No [email or web address] Information no t available 10/31/2021 Do You Use Any Illicit Or Recreational Drugs? No Information not available 12/23/2020 Do You Or Have You Ever Used Any Other Forms Of Tobacco Or Nicotine? No API-27 Information not available 12/23/2020 Sex: Female Functional Status Question Answer Note LastModified by Organization D etails LastModified Time What is your exercise level? Heavy API-27 Information not available 10/31/2021 Mental Status None recorded. Family History Relationship Description Onset Age of this Age Resolved Age Notes LastModified by Organization Details LastModified Time Paternal Aunt Coronary arterioscler osis [email or web address] Not available 2021 13:53:20 Maternal Aunt Coronary arterioscler osis API-27 Not available 2021 13:53:20 Unspecified Relation Essential hypertension every one [email or web address]-27 Not available 10/31/2021 13:53:20 Mother Diabetes mellitus [email or web address]-27 Not available 2020 15:05:22 Mother History of hypertension API-27 Not available 15:05:22 Paternal Grandfather History of hypertension API-27 Not available 15:05:22 Maternal Grandmother History of hypertension API-27 Not available 15:05:22 Father History of hypertension API-27 Not available 15:05:22 Maternal Grandfather History of hypertension API-27 Not available 15:05:22 Brother History of hypertension API-27 Not available 15:05:22 Paternal Grandmother History of hypertension API-27 Not available 15:05:22 Medical History Condition Response acid reflux/GERD Y deep vein thrombosis Y anxiety disorder Y alcohol abuse Y depression Y high blood pressure Y kidney disease Y heart problems Y pulmonary embolism Y obesity Y skin conditions Y anemia Y blood clots Y leg or foot ulcers Y Gynecological History Statement/Question Response Have you had a mammogram screening withi n the last 24 months? N Would you like to schedule a mammogram s creening? Y Obstetrics History GPAL:G 0 P 0 0 0 0 Immunizations Vaccine Type Date Status Note Provider Nam e and Address Organization Details Recorded Time Influenza, split virus, quadrivalent, PF 01/31/2021 completed [place] [facility] [place] [facility] [place] 01/31/2021 12:42:04 Past Encounters Encounter ID Performer Location Encounter Start Date Encounter Closed Date Diagnosis/Indication Diagnosis SNOMED-CT Code Diagnosis ICD10 Code [id number] Chan Amaya MD [facility] [address] [address] 12/23/2020 14:43:53 12/23/2020 15:49:36 Lymphedema of lower extremity 015713602 I89.0 Bilateral osteoarthritis of knees 1104455482 96171 M17.0 Essential hypertension 50435364 I10 Pulmonary embolism 46212 003 I26.99 Morbid obesity 778024968 E66.01 Screening for malignant neoplasm of breast 994677288 Z12.31 [id number] Chan Amaya MD [facility] [address] [address] 2020 15:17:11 2020 16:15:05 Essential hypertension 13249767 I10 Osteoarthr itis of knee 305439832 M17.9 [id number] Chan Amaya MD [facility] [address] [place] [address] 01/31/2021 12:04:40 01/31/2021 12:42:31 Administration of influenza vaccine 22917316 Z23 Adult heal th examination 715313973 Z00.00 Insomnia 433426667 G47.0 0 Screening for malignant neoplasm of breast 689614132 Z12.31 Screening for malignant neoplasm of cervix 093640988 Z12.4 [id number] Chan Amaya MD [facility] [address] [address] 09/13/2021 10:02:25 09/13/2021 13:10:18 Lymphedema of lower extremity 185703033 I89.0 Deep venou s thrombosis 703140972 I82.409 Cellulitis of lower limb 049242142 L03.119 Renewal of prescription 559980032 Z76.0 [id number] Chan Amaya MD [facility] [address] [address] 10/13/2021 15:08:02 10/13/2021 16:29:22 [id number] Chan Amaya MD [facility] [address] [place] [address] 10/31/2021 13:53:18 11/02/2021 13:07:20 Insomnia 611477923 G47.00 Generalize d anxiety disorder 84551164 F41.1 Health Concerns Section Related Observation LastModified by Organization Detai ls LastModified Time None Recorded Concern Status LastModified by Organization Details LastModified Time None Recorded Advance Directives Directive N: Payers Encounter Date Sequence Insurance Name Policy Number Policy Laurent Covered Member ID Laurent Member ID Guarantor Name 2020 1 [employer] [place] - HMO) [id number] Tiarra Addison [id number] Tiarra Addison 01/31/2021 1 [employer] [place] [id number] Tiarra Addison [id number] Tiarra Addison 09/13/2021 1 [employer] [place] [id number] Tiarra Addison [id number] Tiarra Addison 10/13/2021 1 [employer] [place] [id number] Tiarra Addison [id number] Tiarra Addison 10/31/2021 1 [employer] [place] [id number] Tiarra Addison [id number] Tiarra Addison Notes Date Note Type Note Provider Name and Address Organization Details Recorded Time 1 text/html Pt. recently relocated back from [place], needs a new PCP. Pt. has a h/o 2 DVTs and 1 PE, hypercoagulability studies came back negative. Pt. has severe OA in both knees, does not have an orthopedic surgeon in [place]. Prior orthopedic surgeon instructed her that she needed to lose weight and get her lymphedema under better control. Has severe lymphedema of the RLE. Has had 2 knee injections, last one only lasted a month or so. Tried synvisc as well without much improvement. Records received from old PCP. Referral made to pain management. HTN: Pt. states compliance to medications and denies any side-effects. No CP, SOB, headache, dizziness, blurry vision. Is on valsartan/HCTZ 320/25 mg and metoprolol 25 mg daily, BP at home usually 130/80. Chan Amaya MD [address] [place] [address], [place], [address], [facility] 2020 16:11:08 1 text/html Pt. has been on ambien 10 mg for sleep, has been on this for at least 5 years. Can not sleep without the medication. Only tried OTC alternatives. Chan Amaya MD [address] [place] [address], [place], [address], [facility] 01/31/2021 12:42:15 2 text/html Pt. developed blood clot of R leg at the end of June, stayed in the hospital for 3 weeks. Apparently developed an infection in the R leg as well, had to have surgery for this. Also seems to have had an upper GI bleed, which resolved on its own. After staying in the hospital pt. [facility], [facility] stayed for almost 2 [facility]. Discharged home on September 09 with home health, including PT/OT and wound care. Pt. has two wound VACs in place, one on calf and one on the thigh. Is walking with a walker at this point. Chan Amaya MD [address] [place] [address], [place], [address], [facility] 09/13/2021 11:03:54 2 text/html Pt. recently re-admitted for an infected ulcer on her RLE, one on calf and one on outer thigh, MDR E. coli and proteus, was placed on Meropenem IV. Finished up with [facility] last Saturday. Wound is improving, is going to wound care three times a week. Pt. is having issues with anxiety, struggling with sleep. Needs something to help with this. Was prescribed trazodone for sleep. Chan Amaya MD [address] [place] [address], [place], [address], [facility] 10/31/2021 15:19:15 OBGyn Episode No OBEpisode recorded.
--- OUTSIDE RECORDS SUMMARY | 2024-03-24 18:52 | XMS_ITS | Encounter Summary ---
Author Organization [facility] Address [address] [place] [address]. [place] [address] [place] [address] Care Team Providers Care Test Desk Operator Name Role Phone None, Provider Primary Care Provider Unavaila ble Reason for Visit * Reason Comments Chest Pain Cough Encounter Details Date Type Department Care Team (Late st Contact Info) Description 03/10/2018 4:39 PM COMPUTER PROGRAMMER ANALYST - 03/10/2018 9:36 PM COMPUTER PROGRAMMER ANALYST Emergency [facility] Emergency Room [place], [place] [address] Seema Artis MD [address] [place] [id number] Chest Pain; Cough Discharge Disposition: Home or Self Care (Routine [...] Sign Reading Time Taken Comments Blood Pressure 181/107 03/10/2018 9:24 PM COMPUTER PROGRAMMER ANALYST Pulse 71 03/10/2018 9:24 PM COMPUTER PROGRAMMER ANALYST Temperature 36.9 ??C (98.5 ??F) 03/10/2018 4:43 PM CS T Respiratory Rate 18 03/10/2018 9:24 PM COMPUTER PROGRAMMER ANALYST Oxygen Saturation 100% 03/10/2018 9:24 PM COMPUTER PROGRAMMER ANALYST Inhaled Oxygen Concentration - - Weight 142.9 kg (315 lb) 03/10/2018 4:43 PM COMPUTER PROGRAMMER ANALYST Height 170.2 cm (5' 7 ) 03/10/2018 4:43 PM COMPUTER PROGRAMMER ANALYST Body Mass Index 49.34 03/10/2018 4:43 PM COMPUTER PROGRAMMER ANALYST documented in 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 Discharge Instructions * Attachments The following attachments cannot be sent through Care Everywhere. * ACUTE BRONCHITIS DISCHARGE INSTRUCTIONS, ADULT (YI) documented in 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 Medications at Time of Discharge ALPRAZolam 0.5 MG tablet Take 0.5 mg by mouth 3 (three) times daily as needed for Anxiety. hydrocodone-aceta minophen 5-325 MG tablet Take 1 tablet by mouth every 4 (four) hours as needed for Pain (max 6 tabs a day). 15 tablet 01/06/2018 03/28/2018 documented as of 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 ED Notes * Dave Driscoll RN - 03/10/2018 9:35 PM CST Pt informed this RN that her cab was here and she was leaving. Pt ambulated with steady gait out ofdepartment. Pt AOX4. ABC's intact and patent. Pt requested medications be sent to [facility] in [place] if possible. UTER PROGRAMMER ANALYST * Glory Martinez - 03/10/2018 9:30 PM CST PT REFUSING 2ND EKG SAYS SHE IS BEING DISCHARGED. RN NOTIFIED UTER PROGRAMMER ANALYST * Seema Artis MD - 03/10/2018 9:27 PM CST Chief Complaint Chief Complaint Patient presents with ??? Chest Pain ??? Cough History of Present Illness Tiarra Addison is a 47-year-old female with presenting with chest pain that began last night. The patient also reports chronic productive green sputum cough, fever, and headache. She denies sinus congestion or sore throat. She has not been using any over the counter medication for her symptoms. She does not currently have a primary care provider. She denies use of tobacco. History provided by: Patient quick mixer operator used: No Medical History ALLERGIES: No Known Allergies MEDICATIONS: Prior to Admission medications Medication Sig Start Date End Date Taking? Authorizing Provider azithromycin 250 MG tablet Take 2 tablets by mouth on day one then 1 daily for four days. 03/10/18 Yes Seema Artis MD benzonatate (TESSALON PERLES) 100 MG capsule Take 1 capsule (100 mg total) by mouth 3 (three) timesdaily as needed for Cough. 03/10/18 03/17/18 Yes Seema Artis MD ALPRAZolam 0.5 MG tablet Take 0.5 mg by mouth 3 (three) times daily as needed for Sleep. Doc Abstract hydrocodone-acetaminophen 5-325 MG tablet Take 1 tablet by mouth every 4 (four) hours as needed forPain (max 6 tabs a day). 01/06/18 Brittney Aleman PA-C PAST MEDICAL HISTORY: Past [...] Use Topics ??? Alcohol use: Yes Comment: DAILY, one bottle of wine daily ??? Drug use: Yes Types: Marijuana Review of Systems Review of Systems Constitutional: Positive for fever. Negative for activity change, appetite change and chills. HENT: Negative for congestion, sore throat and trouble swallowing. Eyes: Negative for visual disturbance. Respiratory: Positive for cough (Productive green sputum). Negative for chest tightness and shortness of breath. Cardiovascular: Positive for chest pain. Negative for palpitations. Gastrointestinal: Negative for abdominal pain, constipation, diarrhea and nausea. Genitourinary: Negative for decreased urine volume, dysuria and flank pain. Musculoskeletal: Negative for arthralgias and gait problem. Skin: Negative for color change and rash. Neurological: Positive for headaches. Negative for dizziness and weakness. Psychiatric/Behavioral: Negative for confusion. Physical Exam Filed Vitals: 03/10/18 1643 03/10/18 2124 BP: 152/87 (!) 181/107 Pulse: 74 71 Resp: 16 18 Temp: 98.5 ??F (36.9 ??C) TempSrc: Oral SpO2: 100% 100% Weight: (!) 142.9 kg (315 lb) Height: 5' 7 (1.702 m) Physical Exam Constitutional: She is oriented to person, place, and time. She appears well- developed and well-nourished. No distress. HENT: Head: Normocephalic and atraumatic. Right Ear: External ear normal. Left Ear: External ear normal. Nose: Nose normal. Eyes: Conjunctivae and EOM are normal. Right eye exhibits no discharge. Left eye exhibits no discharge. Neck: Normal range of motion. Neck supple. Cardiovascular: Normal rate and regular rhythm. Pulmonary/Chest: Effort normal and breath sounds normal. No respiratory distress. She has no wheezes. She has no rales. She exhibits tenderness. Abdominal: Soft. She exhibits no distension. There is no tenderness. There is no rebound and no guarding. Musculoskeletal: Normal range of motion. She exhibits no edema or deformity. Severe lymphedema to bilateral legs, worse in the left. Neurological: She is alert and oriented to person, place, and time. No cranial nerve deficit. She exhibits normal muscle tone. Coordination normal. Skin: Skin is warm and dry. No rash noted. She is not diaphoretic. No erythema. No pallor. Psychiatric: She has a normal mood and affect. Her behavior is normal. Judgment and thought contentnormal. Nursing note and vitals reviewed. Diagnostic Studies / Procedures ELECTROCARDIOGRAMS: No results found for this visit on 03/10/18. LABORATORY STUDIES: Results for orders placed or performed during the hospital encounter of 03/10/18 CBC W/DIFF AUTOMATED Result Value Ref Range WBC 9.2 4.5 - 11.0 x10'3/uL RBC 3.99 (L) 4.20 - 5.40 x10'6/uL HGB 8.5 (L) 12.0 - 16.0 G/DL HCT 29.7 (L) 38.0 - 48.0 % MCV 74.4 (L) 81.0 - 99.0 FL MCH 21.3 (L) 27.0 - 31.0 PG MCHC 28.6 (L) 32.0 - 36.0 G/DL RDW 18.7 (H) 11.5 - 14.5 % PLT 273 130 - 400 x10'3/uL MPV 9.6 9.3 - 12.2 FL DIFFERENTIAL TYPE MANUAL DIFFERENTIAL SEG NEUTROPHILS 70 % LYMPHOCYTES 23 % MONOCYTES 3 % EOSINOPHILS 4 % ABS. NEUTROPHIL COUNT 6.44 1.80 - 7.70 x10'3/uL ABS.LYMPHOCYTES CALCULATED 2.12 1.00 - 4.80 x10'3/uL ABS. MONOCYTES CALCULATED 0.28 0.24 - 0.86 x10'3/uL ABS. EOSINOPHIL CALCULATED 0.37 (H) 0.04 - 0.36 x10'3/uL RBC MORPHOLOGY SLIDE REVIEWED ANISO 1+ POIKLO 1+ HYPOCHROMASIA 1+ MICRO 1+ MACRO 1+ PLT EST. ADEQUATE PATHOLOGIST COMMENT PATHOLOGIST REVIEW TO FOLLOW. COMPREHENSIVE METABOLIC PANEL Result Value Ref Range GLUCOSE 73 70 - 99 MG/DL BUN 13 7 - 18 MG/DL CREATININE 0.86 0.55 - 1.02 MG/DL SODIUM 144 136 - 145 MMOL/L POTASSIUM 3.9 3.5 - 5.1 MMOL/L CHLORIDE 112 (H) 100 - 108 MMOL/L CO2 26.7 21 - 32 MMOL/L CALCIUM 8.6 8.5 - 10.1 MG/DL TOTAL BILIRUBIN 0.4 0.2 - 1.2 MG/DL TOTAL PROTEIN 7.5 6.4 - 8.2 G/DL ALBUMIN 3.0 (L) 3.4 - 5.0 G/DL AST 19 15 - 37 U/L ALT 22 14 - 55 U/L ALK PHOS 109 50 - 136 U/L ANION GAP 9.2 8 - 20 MMOL/L BUN CREATININE RATIO 15.1 6 - 26 A/G RATIO 0.7 (L) 1.0 - 2.0 RATIO eGFR Non-Afr. Amer. 80 (L) >90 ML/MIN/1.73 M2 eGFR Afr. Amer. >90 >90 ML/MIN/1.73 M2 TROPONIN, QUANT Result Value Ref Range TROPONIN I <0.015 <0.045 ng/mL. IMAGING STUDIES XR CHEST PA+LAT ED Interpretation by Seema Artis MD (03/10 2128) No infiltrates, no PTX, no effusion Final Result by User, [id number] (03/10 1710) Examination: Chest x-ray 2 view Exam date/time: 03/10/2018 5:07 PM Reason For Exam: Chest pain. Cough Comparison: Chest x-ray 01/23/2018 Technique: Upright AP portable and lateral views of the chest were obtained. Findings: Stable probably upper normal cardiac size. Trachea is normally positioned. Hilar and mediastinal contours are within normal limits. Pulmonary vasculature is normal. Lung volumes remain reduced. Otherwise the lungs and pleural spaces are clear. No consolidation, effusion or pneumothorax seen. Upper abdomen is unremarkable. =====IMPRESSION:===== Stable reduced lung volumes otherwise no acute/active cardiopulmonary process identified. Course / Medical Decision Making 9:40 PM Pt had called a cab so needed to leave before receiving her prescriptions. Overall, labs normal andchest pain secondary to cough. Cough ongoing for over a week with green sputum so zpak given. Clinical Impression Bronchitis (Primary) Lymphedema Chest wall pain Disposition: Discharge I, Baljeet Philippe, acting as a scribe, am personally taking down the notes in the presence ofDr. Seema Artis,*. Take no action on this note until reviewed and authenticated by the physician. Seema Artis MD 03/10/18 4450 UTER PROGRAMMER ANALYST * Dave Driscoll RN - 03/10/2018 9:24 PM CST Pt reports pain in chest only with palpation and deep breathing. Denies any pain in chest when ambulating or at rest. UTER PROGRAMMER ANALYST * Dave Driscoll RN - 03/10/2018 9:23 PM CST Pt refuses further blood draws at this time. UTER PROGRAMMER ANALYST * Dave Driscoll RN - 03/10/2018 9:20 PM CST Went to room to perform nursing assessment. Pt states she called a cab while in the waiting room and it will be here in 20 minutes. Pt states she is leaving at that time. Physician notified. UTER PROGRAMMER ANALYST * Candace Solomon - 03/10/2018 9:07 PM CST Attempted to call pt back for 2nd ekg and trop, but pt stated she was ready to leave and just waiting on her ride. This tech let point RN know. UTER PROGRAMMER ANALYST * Kaiser Moore RN - 03/10/2018 4:56 PM CST Pt reports having pain to her chest and dry cough since last pm. Also c/o SOB, denies known fever, n/v/d, or other symptoms at this time. UTER PROGRAMMER ANALYST * DENNISE Durand - 03/10/2018 4:49 PM CST [place], [place] EMERGENCY DEPARTMENT ENCOUNTER Medical Screening Examination 03/10/18 4:49 PM Chief Complaint : No chief complaint on file. HPI : Tiarra Addison is a 47-year-old female who presents due to CP, cough. States chest pain is worse when coughing. Vital Signs: There were no vitals filed for this visit. Physical exam: A brief physical exam was completed to facilitate/expedite patient care. Plan: Necessary labs/imaging/medications ordered to initiate pt care. DENNISE Durand 03/10/18 1649 Cosigned by Joseph Pederson DO at 03/10/2018 8:31 PM COMPUTER PROGRAMMER ANALYST UTER PROGRAMMER ANALYST UTER PROGRAMMER ANALYST documented in 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 Plan of Treatment Not on file documented as of 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 Procedures Procedure Name Priority Date/Time Associated Diagnosis Comments XR CHEST PA+LAT STAT 03/10/2018 5:07 PM COMPUTER PROGRAMMER ANALYST PATHOLOGY SLIDE CONSULT STAT 03/10/2018 4:51 PM COMPUTER PROGRAMMER ANALYST COMPREHENSIVE METABOLIC PANEL STAT 03/10/2018 4:51 PM COMPUTER PROGRAMMER ANALYST CBC W/DIFF AUTOMATED STAT 03/10/2018 4:51 PM COMPUTER PROGRAMMER ANALYST TROPONIN, QUANT STAT 03/10/2018 4:51 PM COMPUTER PROGRAMMER ANALYST ECG 12-LEAD STAT 03/10/2018 4:50 PM COMPUTER PROGRAMMER ANALYST documented in 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 Results * XR CHEST PA+LAT (03/10/2018 5:07 PM COMPUTER PROGRAMMER ANALYST) Anatomical Region Laterality Modality Chest Radiographic Alexsandra ging 03/10/2018 5:08 PM COMPUTER PROGRAMMER ANALYST Impressions 03/10/2018 5:09 PM COMPUTER PROGRAMMER ANALYST =====IMPRESSION:===== Stable reduced lung volumes otherwise no acute/active cardiopulmonary process identified. Narrative 03/10/2018 5:09 PM COMPUTER PROGRAMMER ANALYST Examination: Chest x-ray 2 view Exam date/time: 03/10/2018 5:07 PM Reason For Exam: Chest pain. Cough Comparison: Chest x-ray 01/23/2018 Technique: Upright AP portable and lateral views of the chest were obtained. Findings: Stable probably upper normal cardiac size. Trachea is normally positioned. Hilar and mediastinal contours are within normal limits. Pulmonary vasculature is normal. Lung volumes remain reduced. Otherwise the lungs and pleural spaces are clear. No consolidation, effusion or pneumothorax seen. Upper abdomen is unremarkable. Procedure Note Abdiel Levin MD - 03/10/2018 Examination: Chest x-ray 2 view Exam date/time: 03/10/2018 5:07 PM Reason For Exam: Chest pain. Cough Comparison: Chest x-ray 01/23/2018 Technique: Upright AP portable and lateral views of the chest were obtained. Findings: Stable probably upper normal cardiac size. Trachea is normally positioned. Hilar and mediastinal contours are within normal limits. Pulmonary vasculature is normal. Lung volumes remain reduced. Otherwisethe lungs and pleural spaces are clear. No consolidation, effusion or pneumothorax seen. Upper abdomen is unremarkable. =====IMPRESSION:===== Stable reduced lung volumes otherwise no acute/active cardiopulmonary process identified. us [facility] Final Resul t * PATHOLOGY SLIDE CONSULT (03/10/2018 4:51 PM COMPUTER PROGRAMMER ANALYST) CBC PATHOLOGIST COMMENT PATHOLOGIST REVIEW ADDED TO REPORT 03/11/2018 7:45 PM COMPUTER PROGRAMMER ANALYST [facility] Comment: 03/11/2018. MODERATE MICROCYTIC ANEMIA. SOME HYPOCHROMIC RBC'S SUGGESTIVE OF IRON DEFICIENCY. ??SUGGEST IRON STUDIES. REVIEWED BY KENZIE ESPINOSA M.D., PATHOLOGIST. 03/10/2018 4:51 PM COMPUTER PROGRAMMER ANALYST us [facility]/CYTOLOGY ORDERABL ES Final Result Performing Organization Address [facility] de Phone Number [facility] [address] [place] [address], [place] [phone] * TROPONIN, QUANT (03/10/2018 4:51 PM COMPUTER PROGRAMMER ANALYST) TROPONIN I <0.015 <0.045 ng/mL. 03/10/2018 5:25 PM COMPUTER PROGRAMMER ANALYST [facility] Comment: HIGH DOSES OF BIOTIN MAY INTERFERE WITH THIS TEST RESULT. CORRELATION TO CLINICAL HISTORY AND PRESENTATION RECOMMENDED. 03/10/2018 4:51 PM COMPUTER PROGRAMMER ANALYST us [facility] Final Resul t [facility] [address] [place] [address], * (ABNORMAL) COMPREHENSIVE METABOLIC PANEL (03/10/2018 4:51 PM COMPUTER PROGRAMMER ANALYST) [facility] GLUCOSE 73 70 - 99 MG/DL 03/10/2018 5:25 PM COMPUTER PROGRAMMER ANALYST [facility] BUN 13 7 - 18 MG/DL 03/10/2018 5:25 PM [facility] CREATININE S/P/B 0.86 0.55 - 1.02 MG/DL 03/10/2018 5:25 PM [facility] SODIUM S/P/B 144 136 - 145 MMOL/L 03/10/2018 5:25 PM [facility] POTASSIUM S/P/B 3.9 3.5 - 5.1 MMOL/L 03/10/2018 5:25 PM [facility] CHLORIDE S/P/B 112(H) 100 - 108 MMOL/L 03/10/2018 5:25 PM [facility] CO2 26.7 21 - 32 MMOL/L 03/10/2018 5:25 PM [facility] CALCIUM S/P/B 8.6 8.5 - 10.1 MG/DL 03/10/2018 5:25 PM [facility] BILIRUBIN TOTAL S/P/B 0.4 0.2 - 1.2 MG/DL 03/10/2018 5:25 PM [facility] TOTAL PROTEIN S/P/B 7.5 6.4 - 8.2 G/DL 03/10/2018 5:25 PM [facility] ALBUMIN S/P/B 3.0(L) 3.4 - 5.0 G/DL 03/10/2018 5:25 PM [facility] AST 19 15 - 37 U/L 03/10/2018 5:25 PM [facility] ALT 22 14 - 55 U/L 03/10/2018 5:25 PM [facility] ALKALINE PHOSPHATASE S/P/B 109 50 - 136 U/L 03/10/2018 5:25 PM [facility] ANION GAP 9.2 8 - 20 MMOL/L 03/10/2018 5:25 PM [facility] BUN CREATININE RATIO 15.1 6 - 26 03/10/2018 5:25 PM [facility] A/G RATIO 0.7(L) 1.0 - 2.0 RATIO 03/10/2018 5:25 PM [facility] EGFR NON-AFR. AMER. 80(L) >90 ML/MIN/1.7 3 M2 03/10/2018 5:25 PM [facility] EGFR AFR. AMER. >90 >90 ML/MIN/1.7 3 M2 03/10/2018 5:25 PM [facility] Comment: NOTE: eGFR is not calculated for patients <18 years of age. This is an estimated GFR (CKD EPI) and should not be used for calculating drug doses. 03/10/2018 4:51 PM COMPUTER PROGRAMMER ANALYST us [facility] Final Resul t [facility] [address] [place] [address], [place] [phone] * (ABNORMAL) CBC W/DIFF AUTOMATED (03/10/2018 4:51 PM COMPUTER PROGRAMMER ANALYST) WBC 9.2 4.5 - 11.0 x10'3/uL 03/10/2018 5:27 PM COMPUTER PROGRAMMER ANALYST [facility] RBC 3.99(L) 4.20 - 5.40 x10'6/uL 03/10/2018 5:27 PM [facility] HGB 8.5(L) 12.0 - 16.0 G/DL 03/10/2018 5:27 PM [facility] HCT 29.7(L) 38.0 - 48.0 % 03/10/2018 5:27 PM [facility] MCV 74.4(L) 81.0 - 99.0 FL 03/10/2018 5:27 PM [facility] MCH 21.3(L) 27.0 - 31.0 PG 03/10/2018 5:27 PM [facility] MCHC 28.6(L) 32.0 - 36.0 G/DL 03/10/2018 5:27 PM [facility] RDW 18.7(H) 11.5 - 14.5 % 03/10/2018 5:27 PM [facility] PLT 273 130 - 400 x10'3/uL 03/10/2018 5:27 PM [facility] MPV 9.6 9.3 - 12.2 FL 03/10/2018 5:27 PM [facility] DIFFERENTIAL TYPE MANUAL DIFFERENTIAL 03/10/2018 6:41 PM [facility] SEG NEUTROPHILS 70 % 8 6:41 PM [facility] LYMPHOCYTES 23 % 03/10/2018 6:41 PM [facility] MONOCYTES 3 % 03/10/2018 6:41 PM [facility] EOSINOPHILS 4 % 03/10/2018 6:41 PM [facility] ABS. NEUTROPHILS CALCULATED 6.44 1.80 - 7.70 x10'3/uL 03/10/2018 6:41 PM [facility] ABS.LYMPHOCYTES CALCULATED 2.12 1.00 - 4.80 x10'3/uL 03/10/2018 6:41 PM [facility] ABS. MONOCYTES CALCULATED 0.28 0.24 - 0.86 x10'3/uL 03/10/2018 6:41 PM [facility] ABS. EOSINOPHIL CALCULATED 0.37(H) 0.04 - 0.36 x10'3/uL 03/10/2018 6:41 PM [facility] RBC MORPHOLOGY SLIDE REVIEWED 2017 6:41 PM [facility] ANISO 1+ 03/10/2018 6:41 PM [facility] POIKLO 1+ 03/10/2018 6:41 PM [facility] HYPOCHROMASIA 1+ 03/10/2018 6:41 PM [facility] MICRO 1+ 03/10/2018 6:41 PM [facility] MACRO 1+ 03/10/2018 6:41 PM [facility] PLT EST. ADEQUATE 03/10/2018 6:41 PM [facility] PATHOLOGIST COMMENT PATHOLOGIST REVIEW TO FOLLOW. 03/10/2018 6:41 PM [facility] 03/10/2018 4:51 PM COMPUTER PROGRAMMER ANALYST us [facility] Final Resul t [facility] [address] [place] [address], [place] [phone] * ECG 12 lead (03/10/2018 4:50 PM COMPUTER PROGRAMMER ANALYST) 03/10/2018 4:50 PM COMPUTER PROGRAMMER ANALYST Narrative [facility] - 03/11/2018 1:35 PM COMPUTER PROGRAMMER ANALYST ?[facility] ? [address], [place] ? Test Date: ?2018-03-10 Pat Name: ? TIARRA ADDISON ?Department: ?? 41 ? Room: ? EXAM07 Gender: ? Female ? Sheet Sorter: ?? DDB : ?1970 ? Requested By: PRABHU CONTE Order Number: [id number] ? Reading MD: ?? Shiyam Satwani ? Measurements Intervals ?[place] ? Rate: ? 74 ? P: ?25 PA: ? 190 ?QRS: ?-10 QRSD: ? 83 ? T: ?-6 QT: ? 393 ? QTc: ?438 ? Interpretive Statements SINUS RHYTHM LOW QRS VOLTAGE IN PRECORDIAL LEADS Nonspecific T wave abnormality Compared to ECG 01/24/2018 02:44:08 Ventricular premature complex(es) no longer present UTER PROGRAMMER ANALYST Procedure Note Chelsea Pablo MD - 03/11/[address] Test Date: 2018-03-10 Pat Name: TIARRA ADDISON Department: 41 Room: [facility] Gender: Female Sheet Sorter: SON : 1970 Requested By: PRABHU CONTE Order Number: [id number] Yesica MD: Chelsea Pablo Measurements Intervals [place] Rate: 74 P: 25 PA: 190 QRS: -10 QRSD: 83 T: -6 QT: 393 QTc: 438 Interpretive Statements SINUS RHYTHM LOW QRS VOLTAGE IN PRECORDIAL LEADS Nonspecific T wave abnormality Compared to ECG 01/24/2018 02:44:08 Ventricular premature complex(es) no longer present UTER PROGRAMMER ANALYST us Prabhu [facility] ECG ORDERABLES Final Resul t [facility] AUSandra [facility] RAD documented in 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 Visit Diagnoses Diagnosis Bronchitis- Primary Bronchitis, not specified as acute or chronic Lymphedema Other lymphedema Chest wall pain Painful respiration documented in 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 Administered Medications Inactive Administered Medications - up to 3 most recent administrations Medication Order MAR Action Action Date Dose Rate Site ibuprofen (MOTRIN) 600 MG tablet 1 dose, Starting on Sat03/10/18 at 9, Until Sat03/10/18 at 2131, Created by cabinet override ibuprofen (MOTRIN) tablet 600 mg 600 mg, Oral, Once, 1 dose, On Sat03/10/18 at 213 Given 03/10/2018 9:32 PM COMPUTER PROGRAMMER ANALYST 600 mg traMADol (ULTRAM) tablet 50 mg 50 mg, Oral, Once, 1 dose, On Sat03/10/18 at 213 Given 03/10/2018 9:31 PM COMPUTER PROGRAMMER ANALYST 50 mg documented in 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 Active and Recently Administered Medications Times are shown in COMPUTER PROGRAMMER ANALYST. Scheduled Medication Order 03/08/2018 03/09/2018 03/10/2018 ibuprofen (MOTRIN) tablet 600 mg (COMPLETED) 600 mg, Oral, Once, 1 dose, On Sat03/10/18 at 2130 2132 (Given - Provid er: Dave Driscoll RN) traMADol (ULTRAM) tablet 50 mg (COMPLETED) 50 mg, Oral, Once, 1 dose, On Sat03/10/18 at 2130 2131 (Given - Provid er: Dave Driscoll RN) documented in 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 Care Teams Test Desk Operator Relationship Specialty Start Date End Date None, Provider, PCP - General 01/06/18 documented as of 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
--- OUTSIDE RECORDS SUMMARY | 2024-03-24 18:52 | XMS_ITS | Encounter Summary ---
Author Organization [facility] Address [address] [place] [address]. [place] [address] [place] [address] Care Team Providers Care Grey Washer Name Role Phone None, Provider Primary Care Provider Unavaila ble Reason for Visit * Reason Comments Chest Pain Encounter Details Date Type Department Care Team (Late st Contact Info) Description 01/23/2018 11:40 PM CDT - 01/24/2018 3:42 AM CDT Emergency [facility] [place] [address] Lizett Ruiz MD [address] [phone] Chest Pain Discharge Disposition: Home or Self Care (Routine [...] Sign Reading Time Taken Comments Blood Pressure 129/79 01/24/2018 3:23 AM CDT Pulse 62 01/24/2018 3:23 AM CDT Temperature 37.7 ??C (99.8 ??F) 01/23/2018 1 1:31 PM CDT Respiratory Rate 16 01/24/2018 3:23 AM CDT Oxygen Saturation 99% 01/24/2018 3:23 AM CDT Inhaled Oxygen Concentration - - Weight 145.7 kg (321 lb 1.6 oz) 018 11:41 PM CDT Height 170.2 cm (5' 7 ) 01/23/2018 11:3 1 PM CDT Body Mass Index 50.29 01/23/2018 11:31 PM CDT documented in 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 Discharge Instructions * Discharge Instructions* Lizett Ruiz MD - 01/24/2018 3:11 AM CDT Please followup with a primary care doctor in the next few days for further evaluation. Please consider drinking less. Please come back to the ER if symptoms worsen, if you have any concerns, or symptoms worsen. * Attachments The following attachments cannot be sent through Care Everywhere. * CHEST PAIN (NIGERIAN) * CHEST PAIN DISCHARGE INSTRUCTIONS (NIGERIAN) documented in 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 Medications at Time of Discharge ALPRAZolam 0.5 MG tablet Take 0.5 mg by mouth 3 (three) times daily as needed for Anxiety. hydrocodone-aceta minophen 5-325 MG tablet Take 1 tablet by mouth every 4 (four) hours as needed for Pain (max 6 tabs a day). 15 tablet 01/06/2018 03/28/2018 documented as of 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 ED Notes * Lizett Ruiz MD - 01/23/2018 11:44 PM CDT Chief Complaint Chief Complaint Patient presents with ??? Chest Pain History of Present Illness 47 y/o female with pmhx of ETOH abuse, depression, HTN, presents to the ED with chest pain that started around 11PM tonight. Pt states the chest pain started after arguing with her family. Notes the pain is sharp and left-sided. It radiates down the left arm and has since resolved. Associated w/ some sob which has since resolved. Denies any n/v/d, headache, dizziness. No hx of early LA in her family. Does drink nearly a bottle of wine daily. Medical History ALLERGIES: No Known Allergies MEDICATIONS: [...] Systems Review of Systems Constitutional: Negative for fever. Respiratory: Positive for shortness of breath. Negative for cough and chest tightness. Cardiovascular: Positive for chest pain. Gastrointestinal: Negative for abdominal pain, diarrhea, nausea and vomiting. Musculoskeletal: Negative for back pain and myalgias. Neurological: Negative for light-headedness, numbness and headaches. All other systems reviewed and are negative. Physical Exam Filed Vitals: 01/23/18 2331 01/23/18 2341 BP: 130/83 Pulse: 63 Resp: 20 Temp: 99.8 ??F (37.7 ??C) TempSrc: Oral SpO2: 100% Weight: (!) 145.7 kg (321 lb 1.6 oz) Height: 5' 7 (1.702 m) Physical Exam Constitutional: She appears well-developed and well-nourished. Obese. HENT: Head: Normocephalic and atraumatic. Eyes: Pupils are equal, round, and reactive to light. Neck: Neck supple. No tracheal deviation present. Cardiovascular: Normal rate, regular rhythm and normal heart sounds. Exam reveals no gallop and no friction rub. No murmur heard. Pulmonary/Chest: Effort normal and breath sounds normal. No respiratory distress. She has no wheezes. She has no rales. Abdominal: Soft. Bowel sounds are normal. She exhibits no distension. There is no tenderness. Thereis no rebound. Musculoskeletal: She exhibits edema (3+ pitting edema to the bilateral LE. Right greater than left). Moving all extremities. Chronic lymphedema to the right LE. Neurological: She is alert. Awake and alert Skin: Skin is warm and dry. No erythema. Psychiatric: She has a normal mood and affect. Her behavior is normal. Diagnostic Studies / Procedures ELECTROCARDIOGRAMS: Results for orders placed or performed during the hospital encounter of 01/23/18 ECG 12-Lead Narrative 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 T wave inversions in 3 and AVF. T wave flattening in V2 and V3. LABORATORY STUDIES: No results found for this visit on 01/23/18. IMAGING STUDIES XR CHEST PORTABLE (Results Pending) ED Course / Medical Decision Making MDM Number of Diagnoses or Management Options Chest pain: Diagnosis management comments: 47 yo female w/ chest pain Given history, symptoms, ekg - HEART SCORE of 4. Will get imaging, labs, and repeat trop and EKG in 3 hrs. Repeat trop and ekg unchanged. Will d/c home. Amount and/or Complexity of Data Reviewed Clinical lab tests: ordered Tests in the radiology section of CPT??: ordered Tests in the medicine section of CPT??: ordered Risk of Complications, Morbidity, and/or Mortality Presenting problems: moderate Diagnostic procedures: low Management options: low Patient Progress Patient progress: stable Clinical Impression None Disposition: Data Unavailable ILiz, acting as a scribe, am personally taking down the notes in the presence of Dr. Lizett Ruiz MD. Take no action on this note until reviewed and authenticated by the physician. Lizett Ruiz MD 01/24/18 0313 * Shayy Del Valle RN - 01/23/2018 11:38 PM CDT PT TO ED FROM HOME WITH MULTIPLE FAMILY MEMBERS WITH CO LEFT SIDED CP. PT REPORTS GETTING INTO ARGUMENT WITH FAMILY MEMBERS TONIGHT AND HER CHEST STARTING HURTING. PT REPORTS DRINKS DAILY, I CAN DRINK A BOTTLE OF WINE A DAY AND THEY GOT ME ALL RILED UP AND I'M A NUT BUNNY . PT DENIES ANY THOUGHTS OF HARMING SELF OR OFF SUICIDE. PT DOES REPORT ANXIETY AND TAKES MEDICATIONS FOR. PT REPORTS TRYING TO STOP DRINKING IN THE PAST. documented in 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 Plan of Treatment Not on file documented as of 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 Procedures Procedure Name Priority Date/Time Associated Diagnosis Comments ECG 12-LEAD STAT 01/24/2018 2:44 AM CDT TROPONIN, QUANT STAT 01/24/2018 2:32 AM CDT XR CHEST PORTABLE STAT 01/23/2018 11: 58 PM CDT COMPREHENSIVE METABOLIC PANEL STAT 01/23/2018 11:30 PM CDT CBC W/DIFF AUTOMATED STAT 01/23/2018 11:30 PM CDT TROPONIN, QUANT STAT 01/23/2018 11:30 PM CDT ECG 12-LEAD STAT 01/23/2018 11:10 PM CDT documented in 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 Results * ECG 12 lead (01/24/2018 2:44 AM CDT) 01/24/2018 2:44 AM CDT Narrative [facility] - 01/24/2018 10:08 AM CDT ?[facility] ? [address] [place] ? Test Date: ?2018-01-24 Pat Name: ? TIARRA HAN ?Department: ?? 41 ? Room: ? [id number] Gender: ? Female ? 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 jt : ?1970 ? Requested By: LIZETT TORRESAMED Order Number: [id number] ? Reading MD: ?? Madhu Johnson ? Measurements Intervals ?[place] ? Rate: ? 73 ? P: ?20 NH: ? 178 ?QRS: ?-4 QRSD: ? 94 ? T: ?7 QT: ? 410 ? QTc: ?452 ? 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 Co de Phone Number [facility] * TROPONIN, QUANT (01/24/2018 2:32 AM CDT) TROPONIN I <0.015 <0.045 ng/mL. 01/24/2018 3:[address] [facility] Comment: HIGH DOSES OF BIOTIN MAY INTERFERE WITH THIS TEST RESULT. CORRELATION TO CLINICAL HISTORY AND PRESENTATION RECOMMENDED. 01/24/2018 2:32 AM CDT Lizett Ruiz MD LABORATORY Final Result Performing Organization Address [facility] Co de Phone Number [facility] [address] [place] [address], [place] [phone] * XR CHEST PORTABLE (01/23/2018 11:58 PM CDT) Anatomical Region Laterality Modality Chest Radiographic Alexsandra ging 01/24/2018 12:2 5 AM CDT Impressions 01/24/2018 12:25 AM CDT IMPRESSION: No acute findings. Narrative 01/24/2018 12:25 AM CDT Examination: Chest radiograph Exam time: 01/23/2018 11:58 PM Clinical history: Chest pain Comparison: None Technique: ??One view of the chest obtained. Findings: Lungs are adequately inflated and clear. No pneumothorax or pleural effusions evident. The cardiac silhouette, mediastinal contours, and pulmonary vessels appear within normal limits. Osseous structures are unremarkable. ?? Procedure Note Miguel Ángel Berry MD - 01/24/2018 Examination: Chest radiograph Exam time: 01/23/2018 11:58 PM Clinical history: Chest pain Comparison: None Technique: One view of the chest obtained. Findings: Lungs are adequately inflated and clear. No pneumothorax or pleural effusions evident. The cardiac silhouette, mediastinal contours, and pulmonary vessels appear within normal limits. Osseous structuresare unremarkable. IMPRESSION: No acute findings. Lizett Ruiz MD GENERAL IMAGING Final Result * TROPONIN, QUANT (01/23/2018 11:30 PM CDT) TROPONIN I <0.015 <0.045 ng/mL. 01/24/2018 12:10 AM CDT [facility] Comment: HIGH DOSES OF BIOTIN MAY INTERFERE WITH THIS TEST RESULT. CORRELATION TO CLINICAL HISTORY AND PRESENTATION RECOMMENDED. 01/23/2018 11:3 0 PM CDT Lizett Ruiz MD LABORATORY Final Result [facility] [address] [place] [address], * (ABNORMAL) COMPREHENSIVE METABOLIC PANEL (01/23/2018 11:30 PM CDT) [facility] Signature GLUCOSE 82 70 - 99 MG/DL 01/24/2018 12:[address] [facility] BUN 18 7 - 18 MG/DL 01/24/2018 12:[address] [facility] CREATININE S/P/B 0.92 0.55 - 1.02 MG/DL 01/24/2018 12:[address] [facility] SODIUM S/P/B 141 136 - 145 MMOL/L 01/24/2018 12:[address] [facility] POTASSIUM S/P/B 4.1 3.5 - 5.1 MMOL/L 01/24/2018 12:[address] [facility] CHLORIDE S/P/B 113(H) 100 - 108 MMOL/L 01/24/2018 12:[address] [facility] CO2 21.0 21 - 32 MMOL/L 01/24/2018 12:[address] [facility] CALCIUM S/P/B 8.5 8.5 - 10.1 MG/DL 01/24/2018 12:[address] [facility] BILIRUBIN TOTAL S/P/B 0.2 0.2 - 1.2 MG/DL 01/24/2018 12:[address] [facility] TOTAL PROTEIN S/P/B 8.0 6.4 - 8.2 G/DL 01/24/2018 12:[address] [facility] ALBUMIN S/P/B 3.1(L) 3.4 - 5.0 G/DL 01/24/2018 12:[address] [facility] AST 29 15 - 37 U/L 01/24/2018 12:[address] [facility] ALT 22 14 - 55 U/L 01/24/2018 12:[address] [facility] ALKALINE PHOSPHATASE S/P/B 84 50 - 136 U/L 01/24/2018 12:[address] [facility] ANION GAP 11.1 8 - 20 MMOL/L 01/24/2018 12:[address] [facility] BUN CREATININE RATIO 19.6 6 - 26 01/24/2018 12:[address] [facility] A/G RATIO 0.6(L) 1.0 - 2.0 RATIO 01/24/2018 12:[address] [facility] EGFR NON-AFR. AMER. 74(L) >90 ML/MIN/1.7 3 M2 01/24/2018 12:[address] [facility] EGFR AFR. AMER. 85(L) >90 ML/MIN/1.7 3 M2 01/24/2018 12:[address] [facility] Comment: NOTE: eGFR is not calculated for patients <18 years of age. This is an estimated GFR (CKD EPI) and should not be used for calculating drug doses. 01/23/2018 11:3 0 PM CDT us Lizett Ruiz MD LABORATORY Final Result [facility] [address] [place] [address], [place] [phone] * (ABNORMAL) CBC W/DIFF AUTOMATED (01/23/2018 11:30 PM CDT) WBC 8.1 4.5 - 11.0 x10'3/uL 01/24/2018 12:[address] [facility] RBC 4.28 4.20 - 5.40 x10'6/uL 01/24/2018 12:[address] [facility] HGB 9.2(L) 12.0 - 16.0 G/DL 01/24/2018 12:[address] [facility] HCT 32.2(L) 38.0 - 48.0 % 01/24/2018 12:[address] [facility] MCV 75.2(L) 81.0 - 99.0 FL 01/24/2018 12:[address] [facility] MCH 21.5(L) 27.0 - 31.0 PG 01/24/2018 12:[address] [facility] MCHC 28.6(L) 32.0 - 36.0 G/DL 01/24/2018 12:[address] [facility] RDW 19.0(H) 11.5 - 14.5 % 01/24/2018 12:[address] [facility] PLT 314 130 - 400 x10'3/uL 01/24/2018 12:[address] [facility] MPV 9.6 9.3 - 12.2 FL 01/24/2018 12:[address] [facility] DIFFERENTIAL TYPE AUTOMATED DIFFERENTIAL 01/24/2018 12:[address] [facility] NEUTROPHILS % 56.4 % 01/24/2018 12:[address] [facility] LYMPHOCYTES % 30.1 % 01/24/2018 12:[address] [facility] MONOCYTES % 8.9 % 01/24/2018 12:[address] [facility] EOSINOPHILS 3.7 % 01/24/2018 12:[address] [facility] BASOPHILS 0.5 % 01/24/2018 12:[address] [facility] IMMATURE GRANS % 0.4(H) 0 % 01/25/20 12:[address] [facility] ABS. NEUTROPHILS TOTAL 4.54 1.80 - 7.70 x10'3/uL 01/24/2018 12:[address] [facility] ABS. LYMPHOCYTES 2.42 1.00 - 4.80 x10'3/uL 01/24/2018 12:[address] [facility] ABS. MONOCYTES 0.72 0.24 - 0.86 x10'3/uL 01/24/2018 12:[address] [facility] ABS. EOSINOPHILS 0.30 0.04 - 0.36 x10'3/uL 01/24/2018 12:[address] [facility] ABS. BASOPHILS 0.04 0.01 - 0.08 x10'3/uL 01/24/2018 12:[address] [facility] ABS. IMMATURE GRANULOCYTES 0.03 0.00 - 0.03 x10'3/uL 01/24/2018 12:[address] [facility] RBC MORPHOLOGY SLIDE REVIEWED 2017 12:[address] [facility] ANISO 1+ 01/24/2018 12:[address] [facility] POIKLO 1+ 01/24/2018 12:[address] [facility] HYPOCHROMASIA 3+ 01/24/2018 12:[address] [facility] MICRO 1+ 01/24/2018 12:[address] [facility] POLY 1+ 01/24/2018 12:[address] [facility] PLT EST. ADEQUATE 01/24/2018 12:16 AM CDT [facility] 01/23/2018 11:3 0 PM CDT us Lizett Ruiz MD LABORATORY Final Result [facility] [address] [place] [address], * ECG 12-Lead (01/23/2018 11:10 PM CDT) 01/23/2018 11:1 0 PM CDT Narrative [facility] - 01/24/2018 10:13 AM CDT ?[facility] ? [address] [facility] ? Test Date: ?2018-01-23 Pat Name: ? TIARRA HAN ?Department: ?? 41 ? Room: ? Gender: ? Female ? 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 PL : ?1970 ? Requested By: LIZETT RUIZ Order Number: [id number] ? Yesica KASPER: ?? Madhu Johnson ? Measurements Intervals ?[place] ? Rate: ? 64 ? P: ?41 NH: ? 176 ?QRS: ?-9 QRSD: ? 91 ? T: ?-3 QT: ? 410 ? QTc: ?423 ? Interpretive Statements SINUS RHYTHM LOW QRS VOLTAGE IN PRECORDIAL LEADS j point elevation c/w early repolarization PATTERN CONSISTENT WITH PULMONARY DISEASE MODERATE VOLTAGE CRITERIA FOR LVH, CONSIDER NORMAL VARIANT nonspecific STT abnormality No previous ECG available for comparison Procedure Note Madhu Johnson MD - 01/24/2018 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1970 Requested By: LIZETT RUIZ Order Number: [id number] Reading MD: Madhu Johnson Measurements Intervals [place] Rate: 64 P: 41 NH: 176 QRS: -9 QRSD: 91 T: -3 QT: 410 QTc: 423 Interpretive Statements SINUS RHYTHM LOW QRS VOLTAGE IN PRECORDIAL LEADS j point elevation c/w early repolarization PATTERN CONSISTENT WITH PULMONARY DISEASE MODERATE VOLTAGE CRITERIA FOR LVH, CONSIDER NORMAL VARIANT nonspecific STT abnormality No previous ECG available for comparison Lizett Ruiz MD ECG ORDERABLES Final Result [facility] documented in 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 Visit Diagnoses Diagnosis Chest pain- Primary Chest pain, unspecified documented in 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 Administered Medications Inactive Administered Medications - up to 3 most recent administrations Medication Order MAR Action Action Date Dose Rate Site aspirin chewable tablet 324 mg 324 mg, Oral, Once, 1 dose, On Amber 01/23/18 at 2315, If not given by EMS or taken immediately prior to arrival Given 01/24/2018 12:15 AM CDT 324 mg ibuprofen (MOTRIN) tablet 600 mg 600 mg, Oral, Once, 1 dose, On Sat01/24/18 at 0030 Given 01/24/2018 12:30 AM CDT 600 mg traMADol (ULTRAM) tablet 50 mg 50 mg, Oral, Once, 1 dose, On Sat01/24/18 at 0245 Given 01/24/2018 2:51 AM CDT 50 mg documented in 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 Active and Recently Administered Medications Times are shown in CDT. Scheduled Medication Order 01/22/2018 01/23/2018 01/24/2018 aspirin chewable tablet 324 mg (COMPLETED) 324 mg, Oral, Once, 1 dose, On Amber 01/23/18 at 2315, If not given by EMS or taken immediately prior to arrival 0015 (Given - Provid er: Merary Mccollum RN) ibuprofen (MOTRIN) tablet 600 mg (COMPLETED) 600 mg, Oral, Once, 1 dose, On Sat01/24/18 at 0030 0030 (Given - Provid er: Merary Mccollum RN) traMADol (ULTRAM) tablet 50 mg (COMPLETED) 50 mg, Oral, Once, 1 dose, On Sat01/24/18 at 0245 0251 (Given - Provid er: David Keller RN) documented in 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 Care Teams Grey Washer Relationship Specialty Start Date End Date None, Provider, PCP - General 01/06/18 documented as of 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
--- OUTSIDE RECORDS SUMMARY | 2024-03-24 18:52 | XMS_ITS | Encounter Summary ---
Author Organization [facility] Address [address] [place] [address]. 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 Name Role Phone None, Provider Primary Care Provider Unavaila ble Reason for Visit * Reason Comments Chest Pain Encounter Details Date Type Department Care Team (Late st Contact Info) Description 03/28/2018 2:05 PM SITE INTERPRETER - 03/28/2018 5:50 PM SITE INTERPRETER Emergency [facility] [place] [address] Martha Donnelly MD Chest Pain Discharge Disposition: Home or Self [...] Comments Blood Pressure 127/56 03/28/2018 5:50 PM SITE INTERPRETER Pulse 75 03/28/2018 5:50 PM SITE INTERPRETER Temperature 36.7 ??C (98 ??F) 03/28/2018 2:19 PM SITE INTERPRETER Respiratory Rate 18 03/28/2018 5:50 PM SITE INTERPRETER Oxygen Saturation 98% 03/28/2018 5:50 PM SITE INTERPRETER Inhaled Oxygen Concentration - - Weight 136.1 kg (300 lb) 03/28/2018 2:19 PM SITE INTERPRETER Height 170.2 cm (5' 7 ) 03/28/2018 2:19 PM SITE INTERPRETER Body Mass Index 46.99 03/28/2018 2:19 PM SITE INTERPRETER documented in 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 Discharge Instructions * Discharge Instructions* Martha Donnelly MD - 03/28/2018 5:25 PM SITE INTERPRETER Please take the medication as prescribed. Please do not opperate heavy machinery, drive a car, exercise, or perform important tasks while taking this medication as it can make you drowsy and prone tomental lapses. This medication can be addictive, so please only take as needed. This medication cancause your breathing to dangerous slow down if you take too much, so please take only as prescribed. This medication can make you constipated, so please stay well hydrated and take fiber supplements.Return to the emergency department if this medication does not control your pain and be sure to follow up with your primary care provider as advised. Please go to medlineplus.gov for further information on this medication and its potential side effects. As discussed you have a viral illness. Unfortunately there are no specific medications we can give you to make the illness end faster. Antibiotics do not work for viral illnesses. However, you can take Acetaminophen or Ibuprofen to help with fevers and pain. Stay well hydrated and rested. Return tothe emergency department if your fevers and chills continue to worse after 7 days, if you develop worsening cough with thick sputum, or are unable to stay hydrated. Contact your primary care providerin the next few days for a re-evaluation and to make sure your symptoms are improving. INTERPRETER * Attachments The following attachments cannot be sent through Care Everywhere. * Chronic Pain Discharge Instructions (American) documented in 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 Medications at Time of Discharge albuterol sulfate HFA 108 (90 Base) MCG/ACT inhaler Inhale 2 puffs into the lungs every 6 (six) hours as needed for Wheezing or Shortness of breath. ALPRAZolam 0.5 MG tablet Take 0.5 mg by mouth 3 (three) times daily as needed for Anxiety. fluoxetine 20 MG capsule Take 20 mg by mouth daily. hydrocodone-acet aminophen 5-325 MG tablet Take 1 tablet by mouth every 6 (six) hours as needed for Pain. 8 tablet 03/28/2018 documented as of 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 ED Notes * Sea Hernandez PA-C - 03/28/2018 3:03 PM CST [place], [place] EMERGENCY DEPARTMENT ENCOUNTER Medical Screening Examination 03/28/18 3:03 PM Chief Complaint : Chest Pain HPI : Tiarra Han is a 47-year-old female who presents with chest pain with onset today.No h/o CAD. +h/o DVT, on anticoag. Vital Signs: Filed Vitals: 03/28/18 1419 BP: 121/61 Pulse: 75 Resp: 18 Temp: 98 ??F (36.7 ??C) SpO2: 98% Weight: 136.1 kg (300 lb) Height: 5' 7 (1.702 m) Physical exam: A brief physical exam was completed to facilitate/expedite patient care. Plan: Necessary labs/imaging/medications ordered to initiate pt care. Sea Hernandez PA-C 03/28/18 1504 Cosigned by Martha Donnelly MD at 03/28/2018 7:47 PM SITE INTERPRETER INTERPRETER INTERPRETER * Martha Donnelly MD - 03/28/2018 2:28 PM CST Chief Complaint Chief Complaint Patient presents with ??? Chest Pain History of Present Illness History provided by: Patient bath mixer used: No Tiarra Han is a 47-year-old female who presents to the ED for an evaluation of chest pain starting earlier today. States the chest pain radiates to her left arm. She also complains of SOB, body aches, nausea, vomiting, cough, and diaphoresis. Reports being seen at [place] on Saturday where she was diagnosed with bronchitis and discharged to home with an inhaler. Pt is also being treated for DVT's in her lower extremities with Xarelto, Hydrocodone, and Tylenol. PMH of HTN, DVT, lymph edema. Medical History ALLERGIES: No Known Allergies MEDICATIONS: Prior to Admission medications Medication Sig Start Date End Date Taking? Authorizing Provider albuterol sulfate HFA 108 (90 Base) MCG/ACT inhaler Inhale 2 puffs into the lungs every 6 (six) hours as needed for Wheezing or Shortness of breath. Yes Doc Abstract fluoxetine 20 MG capsule Take 20 mg by mouth daily. Yes Doc Abstract hydrocodone-acetaminophen 5-325 MG tablet Take 1 tablet by mouth every 6 (six) hours as needed for Pain. 03/28/18 Yes Martha Donnelly MD ALPRAZolam 0.5 MG tablet Take 0.5 mg by mouth 3 (three) times daily as needed for Anxiety. Doc Abstract PAST MEDICAL HISTORY: Past Medical History: Diagnosis Date ??? Anxiety ??? DVT (deep venous thrombosis) (HCC) ??? Hypertension ??? Insomnia ??? Lymph edema PAST SURGICAL [...] Systems Review of Systems Constitutional: Positive for diaphoresis. Negative for activity change. HENT: Negative for trouble swallowing. Eyes: Negative for pain. Respiratory: Positive for cough and shortness of breath. Negative for chest tightness. Cardiovascular: Positive for chest pain. Gastrointestinal: Positive for nausea and vomiting. Negative for abdominal pain. Genitourinary: Negative for dysuria. Musculoskeletal: Negative for back pain and neck pain. Neurological: Negative for dizziness, syncope and headaches. Psychiatric/Behavioral: Negative for confusion. Physical Exam Filed Vitals: 03/28/18 1419 03/28/18 1500 03/28/18 1557 03/28/18 1645 BP: 121/61 149/81 132/84 126/50 Pulse: 75 81 76 76 Resp: Temp: 98 ??F (36.7 ??C) SpO2: 98% 98% 98% 98% Weight: 136.1 kg (300 lb) Height: 5' 7 (1.702 m) Physical Exam Constitutional: She is oriented to person, place, and time. She appears well- developed and well-nourished. No distress. HENT: Head: Normocephalic and atraumatic. Eyes: EOM are normal. Neck: Normal range of motion. Neck supple. No tracheal deviation present. Cardiovascular: Normal rate, regular rhythm, normal heart sounds and intact distal pulses. Exam reveals no gallop and no friction rub. No murmur heard. Pulmonary/Chest: Effort normal and breath sounds normal. No stridor. No respiratory distress. She has no rales. She exhibits no tenderness. Mild wheezing. Abdominal: Soft. She exhibits no distension. There is no tenderness. There is no rebound and no guarding. Musculoskeletal: Normal range of motion. She exhibits no edema. Neurological: She is alert and oriented to person, place, and time. Skin: Skin is warm and dry. She is not diaphoretic. Psychiatric: She has a normal mood and affect. Her behavior is normal. Judgment normal. Nursing note and vitals reviewed. Diagnostic Studies / Procedures ELECTROCARDIOGRAMS: Results for orders placed or performed during the hospital encounter of 03/28/18 ECG 12-Lead Narrative [address] Test Date: 2018-03-28 Pat Name: TIARRA HAN Department: 41 Room: Gender: Female Shake Splitter: ESTHER : 1970 Requested By: MARTHA DONNELLY Order Number: [id number] Reading MD: Measurements Intervals [place] Rate: 71 P: 26 NV: 171 QRS: -5 QRSD: 93 T: 1 QT: 397 QTc: 431 Interpretive Statements SINUS RHYTHM Compared to ECG 03/10/2018 16:50:41 T-wave abnormality no longer present NSR- rate of 71. Normal axis. Normal intervals. No signs of ischemia. LABORATORY STUDIES: Results for orders placed or performed during the hospital encounter of 03/28/18 CBC W/DIFF AUTOMATED Result Value Ref Range WBC 8.0 4.5 - 11.0 x10'3/uL RBC 4.18 (L) 4.20 - 5.40 x10'6/uL HGB 8.7 (L) 12.0 - 16.0 G/DL HCT 31.3 (L) 38.0 - 48.0 % MCV 74.9 (L) 80.0 - 94.0 FL MCH 20.8 (L) 27.0 - 31.0 PG MCHC 27.8 (L) 32.0 - 36.0 G/DL RDW 19.0 (H) 11.5 - 14.5 % PLT 371 130 - 400 x10'3/uL MPV 9.8 9.3 - 12.2 FL DIFFERENTIAL TYPE MANUAL DIFFERENTIAL SEG NEUTROPHILS 62 % LYMPHOCYTES 26 % MONOCYTES 7 % EOSINOPHILS 5 % ABS. NEUTROPHIL COUNT 4.96 1.80 - 7.70 x10'3/uL ABS.LYMPHOCYTES CALCULATED 2.08 1.00 - 4.80 x10'3/uL ABS. MONOCYTES CALCULATED 0.56 0.24 - 0.86 x10'3/uL ABS. EOSINOPHIL CALCULATED 0.40 (H) 0.04 - 0.36 x10'3/uL RBC MORPHOLOGY SLIDE REVIEWED ANISO 1+ POIKLO 1+ HYPOCHROMASIA 2+ POLY 1+ Ovalocytes: 1+ LARGE PLATELET 1+ PLT EST. ADEQUATE PATHOLOGIST COMMENT PATHOLOGIST REVIEW TO FOLLOW. COMPREHENSIVE METABOLIC PANEL Result Value Ref Range GLUCOSE 85 70 - 99 MG/DL BUN 11 7 - 18 MG/DL CREATININE 0.94 0.55 - 1.02 MG/DL SODIUM 140 136 - 145 MMOL/L POTASSIUM 3.9 3.5 - 5.1 MMOL/L CHLORIDE 109 (H) 100 - 108 MMOL/L CO2 23.8 21 - 32 MMOL/L CALCIUM 8.6 8.5 - 10.1 MG/DL TOTAL BILIRUBIN 0.3 0.2 - 1.2 MG/DL TOTAL PROTEIN 8.5 (H) 6.4 - 8.2 G/DL ALBUMIN 3.5 3.4 - 5.0 G/DL AST 29 15 - 37 U/L ALT 21 14 - 55 U/L ALK PHOS 118 50 - 136 U/L ANION GAP 11.1 8 - 20 MMOL/L BUN CREATININE RATIO 11.7 6 - 26 A/G RATIO 0.7 (L) 1.0 - 2.0 RATIO eGFR Non-Afr. Amer. 72 (L) >90 ML/MIN/1.73 M2 eGFR Afr. Amer. 83 (L) >90 ML/MIN/1.73 M2 TROPONIN, QUANT Result Value Ref Range TROPONIN I <0.015 <0.045 ng/mL. TROPONIN, QUANT Result Value Ref Range TROPONIN I <0.015 <0.045 ng/mL. PROTIME/INR, VENOUS Result Value Ref Range Protime 20.2 (H) 9.6 - 12.2 SEC INR 1.8 IMAGING STUDIES XR CHEST PORTABLE Final Result by User, [id number] (03/28 4903) Examination: Chest x-ray 1 view Exam date/time: 03/28/2018 2:08 PM Reason For Exam: chest pain Chest pain. Left arm radicular pain. Cough. Comparison: Chest x-ray 03/10/2018. Technique: Upright AP view of the chest demonstrated. Findings: The cardiac silhouette, mediastinal contours, and pulmonary vessels appear normal. The lungs are clear. No pneumothorax. No consolidations or effusions are seen. =====IMPRESSION:===== No acute infiltrate. Course / Medical Decision Making The patient is a 47-year-old female who has a past medical history of Anxiety, DVT (deep venous thrombosis) ([facility]), Hypertension, Insomnia, and Lymph edema. The patient presents today with chest discomfort recently diagnosed with bronchitis. Chest discomfort and pressure most likely related to the bronchitis. Patient concerned about her heart. Blood work unremarkable EKG normal as above. No concern for ACS no concern for pulmonary embolism no concern for dissection. Results were expanded patientpatient was discharged home to follow-up with primary care provider. On discharge the patient says that she is out of multiple medications. Will discharge home with a short course of [place] for her chronic right lower leg pain, will wait for the primary care provider to prescribe remainder of the medications as per reviewed by the pharmacist the patient has multiple different conflicting medications and the patient is unable to clearly state what medication she should be on. Clinical Impression Viral illness (Primary) Bronchitis Chronic pain Disposition: Discharge I, Sofie Bolton, acting as a scribe, am personally taking down the notes in the presence of Dr. Martha Donnelly MD. Take no action on this note until reviewed and authenticated by the physician. Martha Donnelly MD 03/28/18 6721 INTERPRETER * Norberto Alvarez RN - 03/28/2018 2:13 PM CST Pain across chest radiates into left arm since last PM. Painful to cough, breath, move. States has a bronchitis. Denies shortness of breath. NORBERTO ALVAREZ, RN INTERPRETER documented in 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 Plan of Treatment Not on file documented as of 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 Procedures Procedure Name Priority Date/Time Associated Diagnosis Comments TROPONIN, QUANT STAT 03/28/2018 4:03 PM SITE INTERPRETER XR CHEST PORTABLE STAT 03/28/2018 2:4 1 PM SITE INTERPRETER PROTHROMBIN TIME, VENOUS STAT 03/28/2018 2:29 PM SITE INTERPRETER PATHOLOGY SLIDE CONSULT Routine 03/28/2018 2:22 PM SITE INTERPRETER COMPREHENSIVE METABOLIC PANEL STAT 03/28/2018 2:22 PM SITE INTERPRETER CBC W/DIFF AUTOMATED Routine 03/28/2018 2:22 PM SITE INTERPRETER TROPONIN, QUANT STAT 03/28/2018 2:22 PM SITE INTERPRETER ECG 12-LEAD STAT 03/28/2018 2:09 PM SITE INTERPRETER documented in 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 Results * TROPONIN, QUANT (03/28/2018 4:03 PM SITE INTERPRETER) TROPONIN I <0.015 <0.045 ng/mL. 03/28/2018 4:40 PM SITE INTERPRETER [facility] Comment: HIGH DOSES OF BIOTIN MAY INTERFERE WITH THIS TEST RESULT. CORRELATION TO CLINICAL HISTORY AND PRESENTATION RECOMMENDED. 03/28/2018 4:03 PM SITE INTERPRETER us Martha Donnelly MD LABORATORY Final Result [facility] [address] [place] [address], [place] [phone] * XR CHEST PORTABLE (03/28/2018 2:41 PM SITE INTERPRETER) Anatomical Region Laterality Modality Chest Radiographic Alexsandra ging 03/28/2018 2:43 PM SITE INTERPRETER Impressions 03/28/2018 2:43 PM SITE INTERPRETER =====IMPRESSION:===== No acute infiltrate. Narrative 03/28/2018 2:43 PM SITE INTERPRETER Examination: Chest x-ray 1 view Exam date/time: 03/28/2018 2:08 PM Reason For Exam: ??chest pain ? Chest pain. Left arm radicular pain. Cough. Comparison: Chest x-ray 03/10/2018. Technique: Upright AP view of the chest demonstrated. Findings: ??The cardiac silhouette, mediastinal contours, and pulmonary vessels appear normal. The lungs are clear. No pneumothorax. No consolidations or effusions are seen. Procedure Note Pablo Spencer MD - 03/28/2018 Examination: Chest x-ray 1 view Exam date/time: 03/28/2018 2:08 PM Reason For Exam: chest pain Chest pain. Left arm radicular pain. Cough. Comparison: Chest x-ray 03/10/2018. Technique: Upright AP view of the chest demonstrated. Findings: The cardiac silhouette, mediastinal contours, and pulmonary vessels appear normal. The lungs are clear. No pneumothorax. No consolidations or effusions are seen. =====IMPRESSION:===== No acute infiltrate. Martha Donnelly MD GENERAL IMAGING Final Result * (ABNORMAL) PROTIME/INR, VENOUS (03/28/2018 2:29 PM SITE INTERPRETER) PROTIME 20.2(H) 9.6 - 12.2 SEC 03/28/2018 3:21 PM SITE INTERPRETER [facility] INR 1.8 03/28/2018 3:21 PM SITE INTERPRETER [facility] Comment: Recommended INR Therapeutic Goals: ??2.0-3.0 Routine Therapy ??2.5-3.5 Mechanical Prosthetic Valves (High Risk) ??3.0-4.0 Acute OR (to prevent Systemic Embolism) The INR is used only for patients on stable oral anticoagulant therapy. It makes no significant contribution to the diagnosis or treatment of patients whose Protime is prolonged for other reasons. 03/28/2018 2:29 PM SITE INTERPRETER us Martha Donnelly MD LABORATORY Final Result Performing Organization Address [facility] Co de Phone Number [address] [address], [place] [phone] * PATHOLOGY SLIDE CONSULT (03/28/2018 2:22 PM SITE INTERPRETER) CBC PATHOLOGIST COMMENT PATHOLOGIST REVIEW ADDED TO REPORT 03/31/2018 7:41 PM SITE INTERPRETER [facility] Comment: [id number]. HYPOCHROMIC MICROCYTIC ANEMIA. ??CHANGES MAY BE SEEN IN IRON DEFICIENCY AND/OR THALASSEMIA. THROMBOCYTOSIS. ??FAVOR REACTIVE CONDITION. AGREE WITH AUTOMATED WBC DIFFERENTIAL. REVIEWED BY HIGINIO MARSHALL M.D., PATHOLOGIST. 03/28/2018 2:22 PM SITE INTERPRETER us Martha Donnelly MD PATHOLOGY/CYTOLOGY ORDERABLES Fi nal Result Performing Organization Address [facility]/ZIP Co de Phone Number [facility] [address] [place] [address], [place] [phone] * TROPONIN, QUANT (03/28/2018 2:22 PM SITE INTERPRETER) TROPONIN I <0.015 <0.045 ng/mL. 03/28/2018 2:57 PM SITE INTERPRETER [facility] Comment: HIGH DOSES OF BIOTIN MAY INTERFERE WITH THIS TEST RESULT. CORRELATION TO CLINICAL HISTORY AND PRESENTATION RECOMMENDED. 03/28/2018 2:22 PM SITE INTERPRETER Martha Donnelly MD LABORATORY Final Result [facility] [address] [place] [address], * (ABNORMAL) COMPREHENSIVE METABOLIC PANEL (03/28/2018 2:22 PM SITE INTERPRETER) GLUCOSE 85 70 - 99 MG/DL 03/28/2018 2:57 PM SITE INTERPRETER [facility] BUN 11 7 - 18 MG/DL 03/28/2018 2:57 PM [facility] CREATININE S/P/B 0.94 0.55 - 1.02 MG/DL 03/28/2018 2:57 PM SITE INTERPRETER [facility] SODIUM S/P/B 140 136 - 145 MMOL/L 03/28/2018 2:57 PM SITE INTERPRETER [facility] POTASSIUM S/P/B 3.9 3.5 - 5.1 MMOL/L 03/28/2018 2:57 PM SITE INTERPRETER [facility] CHLORIDE S/P/B 109(H) 100 - 108 MMOL/L 03/28/2018 2:57 PM SITE INTERPRETER [facility] CO2 23.8 21 - 32 MMOL/L 03/28/2018 2:57 PM SITE INTERPRETER [facility] CALCIUM S/P/B 8.6 8.5 - 10.1 MG/DL 03/28/2018 2:57 PM SITE INTERPRETER [facility] BILIRUBIN TOTAL S/P/B 0.3 0.2 - 1.2 MG/DL 03/28/2018 2:57 PM SITE INTERPRETER [facility] TOTAL PROTEIN S/P/B 8.5(H) 6.4 - 8.2 G/DL 03/28/2018 2:57 PM [facility] ALBUMIN S/P/B 3.5 3.4 - 5.0 G/DL 03/28/2018 2:57 PM [facility] AST 29 15 - 37 U/L 03/28/2018 2:57 PM [facility] ALT 21 14 - 55 U/L 03/28/2018 2:57 PM [facility] ALKALINE PHOSPHATASE S/P/B 118 50 - 136 U/L 03/28/2018 2:57 PM [facility] ANION GAP 11.1 8 - 20 MMOL/L 03/28/2018 2:57 PM [facility] BUN CREATININE RATIO 11.7 6 - 26 03/28/2018 2:57 PM [facility] A/G RATIO 0.7(L) 1.0 - 2.0 RATIO 03/28/2018 2:57 PM [facility] EGFR NON-AFR. AMER. 72(L) >90 ML/MIN/1.7 3 M2 03/28/2018 2:57 PM [facility] EGFR AFR. AMER. 83(L) >90 ML/MIN/1.7 3 M2 03/28/2018 2:57 PM [facility] Comment: NOTE: eGFR is not calculated for patients <18 years of age. This is an estimated GFR (CKD EPI) and should not be used for calculating drug doses. 03/28/2018 2:22 PM SITE INTERPRETER us Martha Donnelly MD LABORATORY Final Result [facility] [address] [place] [address], [place] [phone] * (ABNORMAL) CBC W/DIFF AUTOMATED (03/28/2018 2:22 PM SITE INTERPRETER) [facility] Signature WBC 8.0 4.5 - 11.0 x10'3/uL 03/28/2018 3:01 PM [facility] RBC 4.18(L) 4.20 - 5.40 x10'6/uL 03/28/2018 3:01 PM [facility] HGB 8.7(L) 12.0 - 16.0 G/DL 03/28/2018 3:01 PM [facility] HCT 31.3(L) 38.0 - 48.0 % 03/28/2018 3:01 PM [facility] MCV 74.9(L) 80.0 - 94.0 FL 03/28/2018 3:01 PM [facility] MCH 20.8(L) 27.0 - 31.0 PG 03/28/2018 3:01 PM [facility] MCHC 27.8(L) 32.0 - 36.0 G/DL 03/28/2018 3:01 PM [facility] RDW 19.0(H) 11.5 - 14.5 % 03/28/2018 3:01 PM [facility] PLT 371 130 - 400 x10'3/uL 03/28/2018 3:01 PM [facility] MPV 9.8 9.3 - 12.2 FL 03/28/2018 3:01 PM [facility] DIFFERENTIAL TYPE MANUAL DIFFERENTIAL 03/28/2018 3:15 PM [facility] SEG NEUTROPHILS 62 % 8 3:15 PM [facility] LYMPHOCYTES 26 % 03/28/2018 3:15 PM [facility] MONOCYTES 7 % 03/28/2018 3:15 PM [facility] EOSINOPHILS 5 % 03/28/2018 3:15 PM [facility] ABS. NEUTROPHILS CALCULATED 4.96 1.80 - 7.70 x10'3/uL 03/28/2018 3:15 PM [facility] ABS.LYMPHOCYTES CALCULATED 2.08 1.00 - 4.80 x10'3/uL 03/28/2018 3:15 PM [facility] ABS. MONOCYTES CALCULATED 0.56 0.24 - 0.86 x10'3/uL 03/28/2018 3:15 PM [facility] ABS. EOSINOPHIL CALCULATED 0.40(H) 0.04 - 0.36 x10'3/uL 03/28/2018 3:15 PM [facility] RBC MORPHOLOGY SLIDE REVIEWED 2017 3:15 PM [facility] ANISO 1+ 03/28/2018 3:15 PM [facility] POIKLO 1+ 03/28/2018 3:15 PM [facility] HYPOCHROMASIA 2+ 03/28/2018 3:15 PM [facility] POLY 1+ 03/28/2018 3:15 PM [facility] OVALOCYTES 1+ 03/28/2018 3:15 PM [facility] LARGE PLATELET 1+ 03/28/2018 3:15 PM [facility] PLT EST. ADEQUATE 03/28/2018 3:15 PM [facility] PATHOLOGIST COMMENT PATHOLOGIST REVIEW TO FOLLOW. 03/28/2018 3:15 PM [facility] 03/28/2018 2:22 PM SITE INTERPRETER us Martha Donnelly MD LABORATORY Final Result [facility] [address] [place] [address], * ECG 12-Lead (03/28/2018 2:09 PM SITE INTERPRETER) 03/28/2018 2:09 PM SITE INTERPRETER Narrative [facility] - 03/28/2018 10:58 PM SITE INTERPRETER ?[facility] ? [address] ? Test Date: ?2018-03-28 Pat Name: ? TIARRA HAN ?Department: ?? 41 ? Room: ? EXAM10 Gender: ? Female ? Shake Splitter: ?? RGRG : ?1970 ? Requested By: MARTHA DONNELLY Order Number: [id number] ? Reading MD: ?? Venancio Grant ? Measurements Intervals ?[place] ? Rate: ? 71 ? P: ?26 NV: ? 171 ?QRS: ?-5 QRSD: ? 93 ? T: ?1 QT: ? 397 ? QTc: ?431 ? Interpretive Statements SINUS RHYTHM Compared to ECG 03/10/2018 16:50:41 T-wave abnormality no longer present No ischemic changes Martha Donnelly M.D. CRITICAL ALERT ISSUED ON 03-28-2018 14:13:06 INTERPRETER Procedure Note Venancio Grant MD - 03/28/[address] Test Date: 2018-03-28 Pat Name: TIARRA HAN Department: 41 Room: [facility] Gender: Female Shake Splitter: RGRG : 1970 Requested By: MARTHA DONNELLY Order Number: [id number] Reading MD: Venancio Grant Measurements Intervals [place] Rate: 71 P: 26 NV: 171 QRS: -5 QRSD: 93 T: 1 QT: 397 QTc: 431 Interpretive Statements SINUS RHYTHM Compared to ECG 03/10/2018 16:50:41 T-wave abnormality no longer present No ischemic changes Martha Donnelly M.D. CRITICAL ALERT ISSUED ON 03-28-2018 14:13:06 INTERPRETER us Martha Donnelly MD ECG ORDERABLES Final Result [facility] [place] documented in 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 Visit Diagnoses Diagnosis Viral illness- Primary Unspecified viral infection, in conditions classified elsewhere and of unspecified site Bronchitis Bronchitis, not specified as acute or chronic Chronic pain Other chronic pain documented in 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 Administered Medications Inactive Administered Medications - up to 3 most recent administrations Medication Order MAR Action Action Date Dose Rate Site aspirin chewable tablet 324 mg 324 mg, Oral, Once, 1 dose, On Sat03/28/18 at 1415, If not given by EMS or taken immediately prior to arrival Given 03/28/2018 3:32 PM SITE INTERPRETER 324 mg hydrocodone-acetaminophen (NORCO) 5-325 MG tablet 2 tablet 2 tablet, Oral, Once, 1 dose, On Sat03/28/18 at 1545, Maximum dose of acetaminophen is 4000 mg from all sources in 24 hours. Given 03/28/2018 3:57 PM SITE INTERPRETER 2 tablets documented in 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 Active and Recently Administered Medications Times are shown in SITE INTERPRETER. Scheduled Medication Order 03/26/2018 03/27/2018 03/28/2018 aspirin chewable tablet 324 mg (COMPLETED) 324 mg, Oral, Once, 1 dose, On Sat03/28/18 at 1415, If not given by EMS or taken immediately prior to arrival 1532 (Given - Provid er: Paloma Mccracken, GE[place]) hydrocodone-acetaminophen (NORCO) 5-325 MG tablet 2 tablet (COMPLETED) 2 tablet, Oral, Once, 1 dose, On 03/28/18 at 1545, Maximum dose of acetaminophen is 4000 mg from all sources in 24 hours. 1557 (Given - Provid er: Paloma Mccracken, GEOV[place]) documented in 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 Care Teams Wire Coating Operator Metal Relationship Specialty Start Date End Date None, Provider, PCP - General 01/06/18 documented as of 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
--- OUTSIDE RECORDS SUMMARY | 2024-03-24 18:53 | XMS_ITS | Clinical Summary ---
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 Name Role Phone Haritha Tse NP Primary Care Provider [phone] Lynn Velásquez MA Unavailable Allergies Active Allergy Reactions Criticality Noted Date Comments Nitrofurantoin Unknown 10/08/2023 Medications ferrous sulfate 325 mg (65 mg of elemental iron) tabletIndication s:Iron Deficiency Anemia Take 1 tablet (325 mg total) by mouth daily with breakfast Active amLODIPine (NORVASC) 10 mg tabletIndication s:Essential hypertension Take 0.5 tablets (5 mg total) by mouth daily 90 tablet 03/15/20 23 Active Additional Information Patient not taking.Reported on 03/16/2024 omeprazole (PriLOSEC) 40 mg capsuleIndicatio ns:Epigastric pain TAKE 1 CAPSULE (40 MG TOTAL) BY MOUTH DAILY. 90 capsule 07/19/19 24 025 Active furosemide (LASIX) 40 mg tabletIndication s:Lymphedema of right lower extremity,Essent ial hypertension Take 1 tablet (40 mg total) by mouth daily 90 tablet 2 09/06/19 24 Active metoprolol XL (TOPROL-XL) 25 mg extended release tabletIndication s:Essential hypertension Take 1 tablet (25 mg total) by mouth daily 90 tablet 2 09/06/19 24 Active Additional Information Patient not taking.Reported on 03/16/2024 lisinopriL (PRINIVIL,ZESTRI L) 10 mg tablet TAKE 1 TABLET(10 MG) BY MOUTH DAILY 30 tablet 12/11/19 24 Active Additional Information Patient not taking.Reported on 03/16/2024 hydrOXYzine (VISTARIL) 25 mg capsuleIndicatio ns:Anxiety Take 2 capsules (50 mg total) by mouth 4 (four) times a day as needed for itching 90 capsule 1 01/21/20 24 Active FLUoxetine (PROzac) 10 mg tablet/capsuleIn dications:Anxiet y with Depression Take 1 tablet/capsule (10 mg total) by mouth daily 90 capsule 1 01/21/20 24 025 Active oxyCODONE (ROXICODONE) 10 mg tabletIndication s:Pain Take 1 tablet (10 mg total) by mouth every 12 (twelve) hours 60 tablet 03/09/20 24 Active Xarelto 10 mg tablet TAKE 1 TABLET BY MOUTH EVERY EVENING. START ON 03/05/24 03/04/20 24 Active amiodarone (PACERONE) 100 mg tablet Take 1 tablet (100 mg total) by mouth daily Active clobetasoL (TEMOVATE) 0.05 % creamIndications :Skin Inflammation Apply topically 2 (two) times a day 60 g 1 03/16/20 24 Active amitriptyline (ELAVIL) 25 mg tabletIndication s:Primary insomnia Take 1 tablet (25 mg total) by mouth daily 90 tablet 1 03/16/20 24 Active clobetasoL (TEMOVATE) 0.05 % creamIndications :Skin Inflammation Apply topically 2 (two) times a day 60 g 1 10/08/19 24 024 Discontin ued(Reord er) zolpidem (AMBIEN) 10 mg tabletIndication s:Primary insomnia Take 1 tablet (10 mg total) by mouth nightly as needed for sleep 90 tablet 1 11/05/19 24 024 Discontin ued(Alter maricel therapy) oxyCODONE (ROXICODONE) 10 mg tabletIndication s:Pain Take 1 tablet (10 mg total) by mouth every 12 (twelve) hours 60 tablet 01/29/20 24 024 Discontin ued(Reord er) amitriptyline (ELAVIL) 25 mg tablet Take 1 tablet (25 mg total) by mouth daily 02/23/20 22 024 Discontin ued(Reord er) Active Problems Problem Noted Date Diagnosed Date Dysuria 01/21/2024 Rash 10/08/2023 UTI symptoms 03/15/2023 Overview (03/15/2023): Start Cipro 500 mg twice daily as directed for 3 days. Notify the office without improvement of symptoms Assessment & Plan (03/20/2023 9:07 AM EMERGENCY DOCTOR): This is a significant, separately identifiable problem that was evaluated and managed on the same day as the wellness exam Chronic pain of both knees 10/30/2022 Poor circulation 10/18/2022 Peptic ulceration 10/18/2022 Opioid dependence 10/18/2022 Chronic pain syndrome 10/18/2022 Assessment & Plan (03/20/2023 9:04 AM EMERGENCY DOCTOR): Patient has chronic pain and is on a chronic opioid. Discussed importance of taking medication as prescribed and pain is currently controlled with no abuse. Continue same dose Do not share medications. Followup for urine drug testing as instructed. Keep followup appointments as instructed. Offered Pain Management. Osteoarthritis of knee 2020 Gastric ulcer 12/23/2020 Epigastric pain 08/23/2020 Cellulitis of right lower extremity 04/19/2020 Assessment & Plan (04/20/2020 11:10 AM EMERGENCY DOCTOR): Patient recently had an episode of cellulitis and was hospitalized for IV antibiotics. Morbid obesity with BMI of 45.0-49.9, adult 03/09 Assessment & Plan (03/16/2024 2:51 PM EMERGENCY DOCTOR): Discussed the patient's BMI. The BMI is above average. BMI management plan is completed. BMI Follow-up includes: nutrition counseling, exercise counseling and education provided. Assessment & Plan (01/21/2024 2:13 PM CDT): Discussed the patient's BMI. The BMI is above average. BMI management plan is completed. BMI Follow-up includes: nutrition counseling, exercise counseling and education provided. Assessment & Plan (10/08/2023 11:32 AM CDT): Discussed the patient's BMI. The BMI is above average. BMI management plan is completed. BMI Follow-up includes: nutrition counseling, exercise counseling and education provided. Assessment & Plan (09/05/2023 10:03 AM CDT): Discussed the patient's BMI. The BMI is above average. BMI management plan is completed. BMI Follow-up includes: nutrition counseling, exercise counseling and education provided. Assessment & Plan (03/15/2023 10:42 AM EMERGENCY DOCTOR): Discussed the patient's BMI. The BMI is above average. BMI management plan is completed. BMI Follow-up includes: nutrition counseling, exercise counseling and education provided. Assessment & Plan (10/30/2022 1:06 PM CDT): Discussed the patients BMI: The BMI is above average BMI management is complete. BMI follow-up includes: Nutrition Counseling and education provided Physical exam, annual 03/28/2020 Primary insomnia 03/28/2020 Pain in right leg 03/28/2020 Assessment & Plan (09/05/2023 10:22 AM CDT): This is a significant, separately identifiable problem that was evaluated and managed on the same day as the wellness exam Congestive heart failure (CHF) ([facility]) 020 Assessment & Plan (04/30/2019 2:21 AM EMERGENCY DOCTOR): Per patient, recently diagnosed at [facility] (02/2019). - Requested [facility] Records to be faxed over - Hold home metop XL and furosemide Hypothyroidism 04/30/2019 Assessment & Plan (04/20/2020 11:10 AM EMERGENCY DOCTOR): Followed by her PCP and controlled at this time. Assessment & Plan (04/30/2019 2:23 AM EMERGENCY DOCTOR): Pt with reported new diagnosis of hypothyroidism and prescription of levothyroxine 50mcg. -Requested [facility] Records -Repeat TSH -Will start home levothyroxine pending TSH Acute upper GI bleed 04/30/2019 Assessment & Plan (04/30/2019 5:12 AM EMERGENCY DOCTOR): 2 week hx melenic stools. Per pt, admitted to [facility] on 04/14 and d/c 04/24; she required multiple units pRBC and states EGD demonstrated non- bleeding ulcer with bleeding from unclear source. Likely related to PUD, given ulcer finding on outside EGD, in setting of anticoag use. Discharged with a Hgb 7.3 and presented to ED on 04/29 with persistent melenic stools and Hgb 5.6. INR 1.3 KUB negative for perf/free air. GI notified of patient's presence in ED, plan for EGD on 04/30. Last dose of xarelto ~04/15/19. S/p 2 units pRBC in ED. - Requested [facility] records - 2 Large bore IVs - NPO for EGD - Q8H CBCs, T&S, consented - Transfuse for Hgb<7 - IV protonix BID - Monitor on Telemetry - avoid NSAIDs, ASA, anticoagulants Acute blood loss anemia 04/30/2019 Assessment & Plan (04/30/2019 5:32 AM EMERGENCY DOCTOR): Hgb to 5.6 in the setting of melenic stools. S/p 2u pRBC in ED. -q8h CBC, T&S, consented -further management as listed under upper GI bleed Gastrointestinal hemorrhage with melena 04/29/19 Overview (04/30/2019): Added automatically from request for surgery [id number] Acute posthemorrhagic anemia 04/29/2019 Acute upper gastrointestinal hemorrhage 04/29/19 Congestive heart failure (CMS/HCC) 04/29/2019 Hypothyroidism 04/29/2019 Gastrointestinal hemorrhage with melena 04/28/19 Lymphedema 03/13/2019 Chronic deep vein thrombosis (DVT) of right lowe r extremity 07/31/2018 Overview (10/18/2022): twice with lymphedema Cocaine dependence, continuous ([facility]) 018 alcohol use disorder 02/04/2018 Assessment & Plan (02/07/2018 1:26 PM CDT): Everyday drinker, last drink 02/03 AM. H/o EtOH withdrawal, but denies DT's. -Changed to scheduled librium taper, which would end on Saturday. Discussed with son that he needs to keep the bottle and give her the medications as scheduled. -Discharge on PO thiamine Assessment & Plan (02/06/2018 1:02 PM CDT): Everyday drinker, last drink 10 AM. H/o EtOH withdrawal, but denies DT's. -CIWA protocol, still using librium q4 and would be concerned about misuse as an outpatient -High-dose thiamine Assessment & Plan (02/05/2018 2:04 PM CDT): Everyday drinker, last drink 10 AM. H/o EtOH withdrawal, but denies DT's. -CIWA protocol -High-dose thiamine - consult for outpatient resources Assessment & Plan (02/04/2018 6:40 AM CDT): Everyday drinker, last drink 10 AM. H/o EtOH withdrawal, but denies DT's. -CIWA protocol -Thiamine folate, MVI -SW consult for outpatient resources Assessment & Plan (02/04/2018 6:27 AM CDT): Patient has a 10 year history of substantial alcohol use, drinking 1 bottle of wine / day everyday for the last 10 years. She had been to [place] and discharged last week, she states she relapsed on alcohol today and drank a bottle of wine due to cravings, has had unsuccessful attempts to quit. Appears to have tolerance due to her high consumption. Due to her alcohol use patient's family is concerned about her ability to care for her daughter. Endorses history of withdrawal symptoms but denies seizures or DTs. Patient meets criteria for alcohol use disorder. - gave patient resources for chemical dependency and outpatient psychiatry at [facility] - monitor for alcohol withdrawal Assessment & Plan (02/04/2018 4:36 AM CDT): Patient has a 10 year history of substantial alcohol use, drinking 1 bottle of wine / day everyday for the last 10 years. She had been to [place] and discharged last week, she states she relapsed on alcohol today and drank a bottle of wine due to cravings, has had unsuccessful attempts to quit. Appears to have tolerance due to her high consumption. Due to her alcohol use patient's family is concerned about her ability to care for her daughter. Endorses history of withdrawal symptoms but denies seizures or DTs. Patient meets criteria for alcohol use disorder. 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 For example patient stated she had been sober for many years off of alcohol however when asked when this occurred she stated it was when she was with her daughter, when asked how long she was sober for patient stated 9 months which contradicted her many years statement. Another example is that she said her mood was sad most of today but doing well now, when I asked her again later in the interview how her mood was earlier in the day she stated she had been doing well most of the day. She is unable to remember family phone numbers, giving strangers phone numbers or her own phone number when asking for her brothers number. Patient is concrete unable to abstractly interpret dont bench mechanic a book by its cover , she also appears disinhibited for example stating the examiner was handsome, asking how much money he made. Patient may also have some grandiose delusions stating she is suing [employer] for racism after an incident during her last hospitalization and states her immigration attorney said she may get 10-20million dollars from the settlement. Patient does not have RTIS, no auditory or visual hallucinations, no flight of ideas, no pressured speech, no history of suicide attempts. Denies persistent low mood, no suicide attempts in the past and no SI. Patient did endorse decreased need for sleep for many years. no psychomotor agitation or increase in goal directed activity. Low concern for laverne or psychosis. DDx includes dementia associated with alcoholism, korsakoff syndrome, wernicke encephalopathy frontotemporal dementia, early onset alzheimer. Also consider other organic cause such as tumor. Patient AOx3 does not appear to be delirious. #risk assessment - patient is at elevated risk of harm to self, risk factors include reduced cognitive functioning, excessive substance use, chronic medical illness, fire arm in the home, protective factors include no SI, no depressed mood, no past SA, domiciled, good social supports. - patient would not benefit from a psychiatric admission - would recommend head CT to help diagnose korsakoff syndrome or wernicke encephalopathyrule, or rule out tumor. - recommend thiamine/glucose due to concerns for cognitive symptoms caused by alcohol use. Rule out korsakoff syndrome, wernicke encephalopathy Assessment & Plan (02/04/2018 5:10 AM CDT): Patient has cognitive deficits with MOCHA of 16 and is a poor historian. For example patient stated she had been sober for many years off of alcohol however when asked when this occurred she stated it was when she was with her daughter, when asked how long she was sober for patient stated 9 months which contradicted her many years statement. Another example is that she said her mood was sad most of today but doing well now, when I asked her again later in the interview how her mood was earlier in the day she stated she had been doing well most of the day. She is unable to remember family phone numbers, giving strangers phone numbers or her own phone number when asking for her brothers number. Patient is concrete unable to abstractly interpret dont bench mechanic a book by its cover , she also appears disinhibited for example stating the examiner was handsome, asking how much money he made. Patient may also have some grandiose delusions stating she is suing [employer] for racism after an incident during her last hospitalization and states her immigration attorney said she may get 10-20million dollars from the settlement. Patient does not have RTIS, no auditory or visual hallucinations, no flight of ideas, no pressured speech, no history of suicide attempts. Denies persistent low mood, no suicide attempts in the past and no SI. Patient did endorse decreased need for sleep for many years. no psychomotor agitation or increase in goal directed activity. Low concern for laverne or psychosis. DDx includes dementia associated with alcoholism, frontotemporal dementia, early onset alzheimer. Also consider other organic cause such as tumor. Patient AOx3 does not appear to be delirious. - patient would not benefit from a psychiatric admission - would recommend head CT to rule out tumor or see if patient has significant brain atrophy. - recommend thiamine and glucose due to concerns for cognitive symptoms caused by alcohol use. Cognitive and behavioral changes 02/04/2018 Assessment & Plan (02/07/2018 1:25 PM CDT): Progressive decline since 11/2017. 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 Disinhibition with worsening EtOH abuse, new PSA (cocaine, marijuana, ectstasy), stealing family members cars, hitch hiking, hypersexual behavior. Ddx includes: Drug-induced vs Wernicke-Korsakoff (either from EtOH or nutritional deficiency 2/2 bypass surgery). [address] CT no acute intracranial process, RPR HIV neg, B12 and TSH wnl -Cont lexapro -Psych evaluated in ED, provided patient with outpatient resources -Will discharge on PO thiamine Assessment & Plan (02/06/2018 1:02 PM CDT): Progressive decline since 11/2017. 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 Disinhibition with worsening EtOH abuse, new PSA (cocaine, marijuana, ectstasy), stealing family members cars, hitch hiking, hypersexual behavior. Ddx includes: Drug-induced vs Wernicke-Korsakoff (either from EtOH or nutritional deficiency 2/2 bypass surgery) -Head CT no acute intracranial process, RPR HIV neg, B12 and TSH wnl -Per OSH physician, was on lexapro, restarted today -Psych evaluated in ED, provided patient with outpatient resources -Continue high-dose thiamine Assessment & Plan (02/05/2018 2:04 PM CDT): Progressive decline since 11/2017. 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 Disinhibition with worsening EtOH abuse, new PSA (cocaine, marijuana, ectstasy), stealing family members cars, hitch hiking, hypersexual behavior. Ddx includes: Drug-induced vs Wernicke-Korsakoff (either from EtOH or nutritional deficiency 2/2 bypass surgery) -Head CT no acute intracranial process, RPR HIV neg, B12 and TSH wnl -Per OSH physician, was on lexapro. Still awaiting records for dosing, etc -Psych evaluated in ED, will touch base with them tomorrow. -Continue high-dose thiamine Assessment & Plan (02/04/2018 6:43 AM CDT): Progressive decline since 11/2017. 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 -Ddx includes: Polysubstance abuse/EtOH related vs. Bipolar d/o vs. Structural disease (e.g. Frontotemporal dementia) -Will start with Head CT -Added on to ED labs: RPR, HIV, B12 -Limit opioid use -Pt endorses depressive symptoms. Touch base with psych for rec's regarding antidepressant vs mood stabilizer -F/u PT/OT recc's -If above results return unremarkable, remainder of work up can likely be completed as outpatient as long as psych has no further plans and feels she is safe for discharge History of DVT (deep vein thrombosis) 02/04/2018 Assessment & Plan (04/20/2020 11:12 AM EMERGENCY DOCTOR): Patient has a history of recurrent DVT and PEs. She is currently on anticoagulation but she had an IVC filter placed. We found that is the [employer] filter and given that she is only 49 years old and is able to be anticoagulated the best thing would be for her to have the filter removed. I will call her to discuss this with her but if she is interested in having the filter removed she would need to go see a specialist to remove these types of filters as they are permanent filters. Assessment & Plan (04/30/2019 2:19 AM EMERGENCY DOCTOR): Prior DVTs/PEs. S/p IVC filter placement. On Xarelto at home, last dose reportedly around ~04/15/19, as she stopped this medication around the time she started developing melenic stools. - Hold Xarelto iso bleed - SCDs Assessment & Plan (02/07/2018 1:27 PM CDT): History of multiple recurrent DVTs. On life long anticoagulation per patient and family, confirmed on phone with PCP office. No records in our system as she recently moved here from [place]. Pt reports missing 1 week of warfarin after running out two weeks ago -Does not have PCP follow up yet and INR not therapeutic. Discussed switching to DOAC with patient, which she would prefer. Will change to xarelto Assessment & Plan (02/06/2018 1:02 PM CDT): History of multiple recurrent DVTs. On life long anticoagulation per patient and family, confirmed on phone with PCP office. No records in our system as she recently moved here from [place]. Pt reports missing 1 week of warfarin after running out two weeks ago -Cont lovenox, warfarin, goal INR 2-3 Assessment & Plan (02/05/2018 2:06 PM CDT): History of multiple recurrent DVTs. On life long anticoagulation per patient and family, confirmed on phone with PCP office. No records in our system as she recently moved here from [place]. Pt reports missing 1 week of warfarin after running out two weeks ago -Cont lovenox, warfarin, goal INR 2-3 Assessment & Plan (02/04/2018 6:45 AM CDT): History of multiple recurrent DVTs. On life long anticoagulation per patient and family -No records in our system as she recently moved here from [place] -Pt reports missing 1 week of warfarin after running out two weeks ago -Called [facility] and [facility]. Her warfarin script for 5mg had not been filled since April at [facility] and since June at [facility], INR currently 1.35 -Patient is unclear when last acute DVT was. Her son thinks this was in 11/2017 -Given lovenox x1 in ED. Will cont lovenox for now -Restart warfarin 5mg qday Lymphedema of right lower extremity 02/04/2018 Assessment & Plan (04/20/2020 11:11 AM EMERGENCY DOCTOR): Patient has lymphedema bilateral lower extremities with an exacerbation of the right lower extremity at this time. Her right leg is massively swollen and she is unable to even get into her lymphedema pump. I will plan to send her to lymphedema therapy to try to get the swelling down to get her back in her pump in compression. This is also the best thing for her to be able to combat cellulitis. She says that she has been dealing with her lymphedema for so long she does understand that that is the problem however she is just concerned since she can get back into her pump right now. Assessment & Plan (02/07/2018 1:26 PM CDT): Bilateral LE. Would likely benefit from lymphedema wraps -Consult placed for lymphedema PT/OT -Can cont home lasix 40mg (confirmed w/ pharmacy) Assessment & Plan (02/06/2018 1:02 PM CDT): Bilateral LE. Would likely benefit from lymphedema wraps -Consult placed for lymphedema PT/OT -Can cont home lasix 40mg (confirmed w/ pharmacy) Assessment & Plan (02/05/2018 2:05 PM CDT): Bilateral LE. Would likely benefit from lymphedema wraps -Consult placed for lymphedema PT/OT -Can cont home lasix 40mg (confirmed w/ pharmacy) Assessment & Plan (02/04/2018 6:41 AM CDT): Bilateral LE. Would likely benefit from lymphedema wraps -Consult placed for lymphedema PT/OT -Can cont home lasix 40mg (confirmed w/ pharmacy) Hypertension 02/04/2018 Assessment & Plan (04/20/2020 11:10 AM EMERGENCY DOCTOR): Followed by her PCP and controlled on medications at this time. Assessment & Plan (04/30/2019 2:20 AM EMERGENCY DOCTOR): Reviewed patient's medication bottles at bedside. Currently takes lisinopril 10mg, hydrochlorothiazide (HCTZ) 25mg, metop xl 25mg, furosemide 40mg daily. -Hold home BP meds due to normotension and GIB Assessment & Plan (02/07/2018 1:27 PM CDT): Cont home losartan HCTZ Assessment & Plan (02/06/2018 1:02 PM CDT): Cont home losartan HCTZ Assessment & Plan (02/05/2018 2:05 PM CDT): Cont home losartan HCTZ Assessment & Plan (02/04/2018 6:44 AM CDT): Cont home losartan HCTZ Anemia 02/04/2018 Assessment & Plan (02/04/2018 6:44 AM CDT): Hgb 8.7. Patient denies melena/hematochezia -Added on iron profile/ferritin to ED labs -Transfuse <7 Polysubstance abuse (CMS/HCC) 02/04/2018 Assessment & Plan (02/07/2018 1:27 PM CDT): Formerly reports using her prescriptions for vicodin and xanax in conjunction with alcohol. Now endorses trying cocaine and ecstasy recently which she has not previously tried. Endorses smoking marijuana more often recently as well. UDS with +MJ and amphetamines. -SW for resources -Avoid opioids Assessment & Plan (02/06/2018 1:03 PM CDT): Formerly reports using her prescriptions for vicodin and xanax in conjunction with alcohol. Now endorses trying cocaine and ecstasy recently which she has not previously tried. Endorses smoking marijuana more often recently as well. UDS with +MJ and amphetamines. -SW for resources -Avoid opioids Assessment & Plan (02/05/2018 2:06 PM CDT): Formerly reports using her prescriptions for vicodin and xanax in conjunction with alcohol. Now endorses trying cocaine and ecstasy recently which she has not previously tried. Endorses smoking marijuana more often recently as well. UDS with +MJ and amphetamines. -SW for resources -Avoid opioids Assessment & Plan (02/04/2018 6:48 AM CDT): Formerly reports using her prescriptions for vicodin and xanax in conjunction with alcohol Now endorses trying cocaine and ecstasy recently which she has not previously tried Endorses smoking marijuana more often recently as well UDS with +MJ and presumptive amphetamines Added on to ED labs: HIV and Hepatitis panel SW for resources Suzy reports last vicodin script has not been filled since 11/2017 Avoid opioids if possible Anxiety 06/11/2016 Chest pain 06/11/2016 Chronic kidney disease, stage 2 (mild) 7 Deep vein thrombosis (DVT) (CMS/HCC) 06/11/2016 Overview (10/18/2022): right lower extremity x2, on chronic anticoagulation Depressive disorder 06/11/2016 Gastroesophageal reflux disease without esophagi tis 06/11/2016 Morbid obesity 06/11/2016 Assessment & Plan (01/21/2024 2:13 PM CDT): Discussed the patient's BMI. The BMI is above average. BMI management plan is completed. BMI Follow-up includes: nutrition counseling, exercise counseling and education provided. Pulmonary embolism 06/11/2016 Overview (10/18/2022): pt is on chronic anticoagulation Recurrent cellulitis 06/11/2016 Overview (10/18/2022): right lower extremity Chronic anemia 06/11/2016 Essential hypertension 06/11/2016 Assessment & Plan (03/20/2023 9:07 AM EMERGENCY DOCTOR): This is a significant, separately identifiable problem that was evaluated and managed on the same day as the wellness exam Lymphedema of lower extremity 06/11/2016 Overview (10/18/2022): chronic, right leg Encounters Date Type Department Care Team Description 03/17/2024 SUKHWINDER IP Outreach [facility] Organization [address] [place] [id number] Lynn Velásquez MA 03/16/2024 2:30 PM EMERGENCY DOCTOR Office Visit [facility] Internal Medicine at [address] [place] [address] Haritha Tse NP Morbid obesity with BMI of 45.0-49.9, adult (HCC) (Primary Dx); Morbid obesity with BMI of 45.0-49.9, adult (HCC); Primary insomnia 03/09/2024 SUKHWINDER IP Outreach [address] [address] Lynn Velásquez MA 03/06/2024 SUKHWINDER IP Outreach [address] [address] Lynn Velásquez MA 02/28/2024 Orders Only [facility] Health Information Management [address] [place] [phone] Haritha Tse NP 01/23/2024 Telephone [facility] Internal Medicine at [address] [place] [address] Haritha Tse NP Medication Request 01/21/2024 2:00 PM CDT Office Visit [facility] Medical [facility] Internal Medicine at [address] [place] [address] Haritha Tse NP Anxiety (Primary Dx); BMI 45.0-49.9, adult (HCC); Morbid obesity (HCC); chronic right knee pain; Dysuria 01/06/2024 Telephone [facility] Medical [facility] Internal Medicine at [address] [place] [address] Haritha Tse NP Medical Question/Miscellaneo us from Last 3 Months Immunizations Name Administration Dates Next Due Influenza, Quadrivalent, Spl it, Preservative Free, Intramuscular 01/31/2021 Influenza, Unspecified 01/10/2024,2022(Deferred: Patient Refused),01/20/2023,04/08/2022(Deferre d: Patient Refused),01/20/2022 Pfizer SARS-CoV-2 Monovalent Vaccination (12+ Yrs) PURPLE 07/27/2020,06/29/2020 Surgical History Surgery Date Site/Laterality Comments GASTRIC BYPASS SECTION CAROTID STENT Medical History Medical History Date Comments Lymph edema Cellulitis Hypertension DVT (deep venous thrombosis) (CMS/HCC) (HCC) CHF (congestive heart failure) (CMS/HCC) (HCC) DVT (deep venous thrombosis) (CMS/HCC) (HCC) Primary osteoarthritis of knees, bilateral Gastric reflux Peptic ulceration Rheumatoid arthritis (HCC) Anemia Clotting disorder (CMS/HCC) (HCC) Poor circulation Family History Medical History Relation Name Comments Diabetes Father Hypertension Father Diabetes Mother Hypertension Mother Relation Name Status Comments Father Alive Mother Alive Social History Tobacco Use Types Packs/Day Years Used Date Smoking Tobacco: Never Smokeless Tobacco: Never Tobacco Cessation:Counseling Given: Not Answered Alcohol Use Standard Drinks/Week Comments Yes 0 (1 standard drink = 0.6 oz pur e alcohol) socially AUDIT-C Answer Date Recorded Q1: How often do you have a drink containing alc ohol? Never 06/23/2020 Q2: How many drinks containi ng alcohol do you have on a typical day when you are drinking? 1 or 2 06/23/2020 Q3: How often do you have six or more drinks on one occasion? Never 06/23/2020 PHQ-2 Answer Date Recorded PHQ-2 Total Score (If total score is 3 or more points, staff should administer the PHQ-9) 1 03/16/2024 Comments No Sex and Gender Information Value Date Recorded Sex Assigned at Not on file Legal Sex Female 7:50 PM CDT Gender Identity Female 11/23/2020 10:23 AM CDT Sexual Orientation Straight 11/23/2020 10 :23 AM CDT Obstetrics History Last Filed Vital Signs Vital Sign Reading Time Taken Comments Blood Pressure 122/70 03/16/2024 2:44 PM EMERGENCY DOCTOR Pulse 99 03/16/2024 2:44 PM EMERGENCY DOCTOR Temperature 37.1 ??C (98.7 ??F) 03/16/2024 2:44 PM CS T Respiratory Rate 16 01/21/2024 2:07 PM CDT Oxygen Saturation 100% 03/16/2024 2:44 PM EMERGENCY DOCTOR Inhaled Oxygen Concentration - - Weight 135.6 kg (299 lb) 03/16/2024 2:44 PM EMERGENCY DOCTOR Height 170.2 cm (5' 7 ) 03/16/2024 2:44 PM EMERGENCY DOCTOR Body Mass Index 46.83 03/16/2024 2:44 PM EMERGENCY DOCTOR Plan of Treatment Health Maintenance Due Date Last Done Comments Cervical Cancer Screening 1969 DTaP/Tdap/Td Vaccine (1 - Tdap) 1980 Hepatitis B Screening 12/30/1987 Zoster Vaccine (1 of 2) 12/30/2019 Breast Cancer Screening-Mammogram 09/20/2023 09/19/2022, 08/10/2022 Covid-19 Vaccine ( season) 2023 07/27/2020, 06/29/2020 Regular Well Visit/Exam 18-64 09/04/2024 09/05/2023, 03/15/2023 Depression Screening 03/16/2025 03/16/2024, 01/21/2024, 10/08/2023, Additional history exists Colon Cancer Screening-Colonoscopy 07/19/2028 07/19/2018 Hepatitis C Screening Completed 02/04/2018 Influenza Vaccine Completed 01/10/2024, , 01/20/2022, Additional history exists Pneumococcal vaccine <65 Aged Out No longer eligible based on patient's age to complete this topic Procedures Procedure Name Priority Date/Time Associated Diagnosis Comments SCAN - RADIOLOGY/IMAGING 02/28/2024 COLONOSCOPY Routine 07/19/2018 HEPATITIS PANEL, ACUTE STAT 02/04/2018 4:42 AM CDT from Last 3 Months or Most Recently Relevant to Health Maintenance Results * SCAN - RADIOLOGY/IMAGING (02/28/2024) Anatomical Region Laterality Modality Other Haritha Tse NP Final Result * Colonoscopy (07/19/2018) Anatomical Region Laterality Modality Other Narrative 07/19/2018 Dr. Amaya Historical Provider ENDOSCOPY PROCEDURES Nika l Result * Hepatitis panel, acute (02/04/2018 4:42 AM CDT) Hep A IgM Nonreactive Nonreactive [facility] Comment: Interpretive Data If test is reported as GRAYZONE, new sample should be drawn in two weeks for testing. Current interpretive data was last revised on 2016. Hep B core IgM Nonreactive Nonreactive [facility] Comment: Interpretive Data If test is reported as GRAYZONE, new sample should be drawn for testing. Current interpretive data was last revised on 2016. Hep C Ab Nonreactive Nonreactive [facility] Comment: Interpretive Data Positive results should be confirmed by a molecular method. If positive, a second separately collected sample should be submitted for Hepatitis C Virus (HCV) RNA Detection and Quantitation by Real-Time Reverse Supervisor Channel Process-PCR (RT-PCR). Current interpretive data was last revised on 2016. HepBsAg Nonreactive Nonreactive [facility] Blood specimen (specimen) 02/04/2018 4:42 AM CDT 02/04/2018 6:09 AM CDT Narrative [facility] - 02/04/2018 2:22 PM CDT Leelee Sierra MD LAB MICROBIOLOGY - GENERAL ORD ERABLES Edited Result - Final [facility] Department [place] [address] from Last 3 Months or Most Recently Relevant to Health Maintenance Insurance [facility] MEDICARE HMO Advance Directives For more information, please contact: [phone] Documents on File Type Date Recorded 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 ADVANCE DIRECTIVE 07/20/2018 12:00 AM DWAYNE R OF [employer] * Full Code (Latest Code Status on File) Date Activated Date Inactivated Comments 04/30/2019 4:28 PM 05/02/2019 7:22 PM * Full Code Date Activated Date Inactivated Comments 04/30/2019 1:34 PM 04/30/2019 4:28 PM * Full Code Date Activated Date Inactivated Comments 02/04/2018 5:45 PM 02/07/2018 6:46 PM 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 [place] [address] ACO Care Forestry Engineer 03/06/24
--- OUTSIDE RECORDS SUMMARY | 2024-03-24 18:53 | XMS_ITS | Data Portability ---
Author Organization [facility] [address] Care Team Providers Care Part Time Receptionist Name Role Phone LESTER ACUÑA Referring Provider Rosibel oshea Assessment No assessment recorded. Plan of Treatment Reminders Order Date Submit Date Provider Last Modified By Organization Details Last Modified Time Details Appointments None record ed. Lab None record ed. Referral None record ed. Procedures None record ed. Surgeries None record ed. Imaging None record ed. Medication Orders None record ed. Patient TargetsNo targets recorded. Patient InstructionsNo instructions recorded. Reason for Referral None Reported. Results Created Date Observation Date Name Description Value Unit Range Abnormal Flag Note LastModifiedBy Organization Detail LastModifiedTime 05/29/19 23 05/29/2022 heari ng evalu ation * Unknown Analyte abnorm al Not Available [address], [place], [address], 05/29/2022 17:12:02 05/29/19 23 05/29/2022 heari ng evalu ation * Unknown Analyte abnorm al Not Available [address], [place], [address], 05/29/2022 17:12:02 05/29/19 23 05/29/2022 heari ng evalu ation * Unknown Analyte normal Not Available [address], [place], [address], 05/29/2022 17:12:02 05/29/19 23 05/29/2022 heari ng evalu ation * Unknown Analyte normal Not Available [address] [address], [place], [address], 05/29/2022 17:12:02 05/29/19 23 05/29/2022 heari ng evalu ation * Unknown Analyte normal Not Available [address], [place], [address], 05/29/2022 17:12:02 05/29/19 23 05/29/2022 heari ng evalu ation * Unknown Analyte normal Not Available [address], [place], [address], 05/29/2022 17:12:02 05/29/19 23 05/29/2022 heari ng evalu ation * Unknown Analyte normal Not Available [address], [place], [address], 05/29/2022 17:12:02 05/29/19 23 05/29/2022 heari ng evalu ation * Unknown Analyte normal Not Available [address], [place], [address], 05/29/2022 17:12:02 05/29/19 23 05/29/2022 urina lysis , dipst ick Leukocytes Modera te Not Available [address], [place], [address], 05/29/2022 17:10:50 05/29/19 23 05/29/2022 urina lysis , dipst ick Nitrite negati ve Not Available [address], [place], [address], 05/29/2022 17:10:50 05/29/19 23 05/29/2022 urina lysis , dipst ick Urobilinogen .2 Not Available [address], [place], [address], 05/29/2022 17:10:50 05/29/19 23 05/29/2022 urina lysis , dipst ick Protein 30 Not Available [address], [place], [address], 05/29/2022 17:10:50 05/29/19 23 05/29/2022 urina lysis , dipst ick pH 6.0 Not Available [address], [place], [address], 05/29/2022 17:10:50 05/29/19 23 05/29/2022 urina lysis , dipst ick Blood Hemoly zed: Trace Not Available [address], [place], [address], 05/29/2022 17:10:50 05/29/19 23 05/29/2022 urina lysis , dipst ick Specific [place] 1.020 Not Available [address], [place], [address], 05/29/2022 17:10:50 05/29/19 23 05/29/2022 urina lysis , dipst ick Ketone Negati ve Not Available [address], [place], [address], 05/29/2022 17:10:50 05/29/19 23 05/29/2022 urina lysis , dipst ick Bilirubin Negati ve Not Available [address], [place], [address], 05/29/2022 17:10:50 05/29/19 23 05/29/2022 urina lysis , dipst ick Glucose Negati ve Not Available [address], [place], [address], 05/29/2022 17:10:50 05/29/19 23 05/29/2022 urina lysis , dipst ick Appearance Turbid Not Available [facility] [address], [place], [address], 05/29/2022 17:10:50 05/29/19 23 05/29/2022 urina lysis , dipst ick Color [place] Not Available [address], [place], [address], 05/29/2022 17:10:50 05/29/19 23 05/30/2022 HEMOG LOBIN A1C hemoglobin A1C 4.7 %_of_ total _HGB <5.7 normal For the purpo se of scree nighat for the prese nce of diabe john: [...] Care in Diabe john(A DA). Not Available [facility] [place], [address] 07/08/2023 14:40:58 05/29/1905/30/2022 TSH W/REF JORGE TO FT4 TSH w/reflex to FT4 2.88 mIU/L normal Refer ence Range > or = 20 Years 0.40- 4.50 Pregn adonay Range s First trime ster 0.26- 2.66 Secon d trime ster 0.55- 2.73 Third trime ster 0.43- 2.91 Not Available [facility] [place], 07/08/2023 14:40:57 05/29/1905/30/2022 CBC (INCL UDES DIFF/ PLT) white blood cell count 6.6 thous and/u L 3.8-10 .8 normal Not Available [facility] LOREN Mcneill, 07/08/2023 14:40:56 05/29/1905/30/2022 CBC (INCL UDES DIFF/ PLT) red blood cell count 3.71 dionna on/uL 3.80-5 .10 low Not Available [facility] LOREN Mcneill, 07/08/2023 14:40:56 05/29/1905/30/2022 CBC (INCL UDES DIFF/ PLT) hemoglobin 10.7 g/dL 11.7-1 5.5 low Not Available [facility] LOREN Mcneill, 07/08/2023 14:40:56 05/29/1905/30/2022 CBC (INCL UDES DIFF/ PLT) hematocrit 33.8 % 35.0-4 5.0 low [facility], 07/08/2023 14:40:56 05/29/1905/30/2022 CBC (INCL UDES DIFF/ PLT) MCV 91.1 fL 80.0-1 00.0 normal Not Available [facility] LOREN Mcneill, 07/08/2023 14:40:56 05/29/1905/30/2022 CBC (INCL UDES DIFF/ PLT) MCH 28.8 pg 27.0-3 3.0 normal Not Available [facility] LOREN Mcneill, 07/08/2023 14:40:56 05/29/1905/30/2022 CBC (INCL UDES DIFF/ PLT) MCHC 31.7 g/dL 32.0-3 6.0 low Not Available [facility] [place], 07/08/2023 14:40:56 05/29/1905/30/2022 CBC (INCL UDES DIFF/ PLT) RDW 13.0 % 11.0-1 5.0 normal [facility] Available [facility] [place], 07/08/2023 14:40:56 05/29/1905/30/2022 CBC (INCL UDES DIFF/ PLT) platelet count 205 thous and/u L 140-40 0 normal [facility] Available [facility] [place] [place], 07/08/2023 14:40:56 05/29/1905/30/2022 CBC (INCL UDES DIFF/ PLT) MPV 9.9 fL 7.5-12 .5 normal [facility] [place], 07/08/2023 14:40:56 05/29/1905/30/2022 CBC (INCL UDES DIFF/ PLT) absolute neutrophils 5293 cells /uL 1500-7 800 normal Not Available [facility] [place] [place], 07/08/2023 14:40:56 05/29/1905/30/2022 CBC (INCL UDES DIFF/ PLT) absolute lymphocytes 719 cells /uL 850-39 00 low [facility] [place], 07/08/2023 14:40:56 05/29/1905/30/2022 CBC (INCL UDES DIFF/ PLT) absolute monocytes 442 cells /uL 200-95 0 normal Not Available [facility] [place], 07/08/2023 14:40:56 05/29/1905/30/2022 CBC (INCL UDES DIFF/ PLT) absolute eosinophils 132 cells /uL 15-500 normal Not Available [facility] [place], 07/08/2023 14:40:56 05/29/1905/30/2022 CBC (INCL UDES DIFF/ PLT) absolute basophils 13 cells /uL 0-200 normal Not Available [facility] L[place], 07/08/2023 14:40:56 05/29/19 23 05/30/2022 CBC (INCL UDES DIFF/ PLT) neutrophils 80.2 % normal [facility] [place], 07/08/2023 14:40:56 05/29/19 23 05/30/2022 CBC (INCL UDES DIFF/ PLT) lymphocytes 10.9 % normal [facility] [place] [place], 07/08/2023 14:40:56 05/29/19 23 05/30/2022 CBC (INCL UDES DIFF/ PLT) monocytes 6.7 % normal Not Available [facility] L[place], 07/08/2023 14:40:56 05/29/19 23 05/30/2022 CBC (INCL UDES DIFF/ PLT) eosinophils 2.0 % normal [facility] [place], 07/08/2023 14:40:56 05/29/19 23 05/30/2022 CBC (INCL UDES DIFF/ PLT) basophils 0.2 % normal Not Available [facility] L[place], 07/08/2023 14:40:56 05/29/19 23 05/30/2022 COMPR EHENS TANI METAB OLIC PANEL glucose 76 mg/dL 65-99 normal Fasti ng refer ence inter annia Not Available [facility] [place], 07/08/2023 14:40:56 05/29/19 23 05/30/2022 COMPR EHENS TANI METAB OLIC PANEL urea nitrogen (BUN) 12 mg/dL 7-25 normal [facility] [place], 07/08/2023 14:40:56 05/29/19 23 05/30/2022 COMPR EHENS TANI METAB OLIC PANEL creatinine 0.72 mg/dL 0.50-1 .03 normal [facility] [place], 07/08/2023 14:40:56 05/29/19 23 05/30/2022 COMPR EHENS TANI METAB OLIC PANEL eGFR 101 mL/mi n/1.7 3m2 > or = 60 normal The eGFR is based on the CKD-E PI 2020 equat ion. To calcu late the new eGFR from a previ ous Creat inine or Cysta tin C resul t, go to https ://gabriel w.moe [email or web address] susan/jeni whitney s/ kdoqi /gfr% 5Fcal culat or Not Available [facility] L[place], 07/08/2023 14:40:56 05/29/19 23 05/30/2022 COMPR EHENS TANI METAB OLIC PANEL BUN/creatini ne ratio NOT APPLIC ABLE (calc ) - Not Available [facility] LOR[place] Mcne[place], 07/08/2023 14:40:56 05/29/19 23 05/30/2022 COMPR EHENS TANI METAB OLIC PANEL sodium 140 mmol/ L 135-14 6 normal Not Available [facility] [place], 07/08/2023 14:40:56 05/29/19 23 05/30/2022 COMPR EHENS TANI METAB OLIC PANEL potassium 4.2 mmol/ L 3.5-5. 3 normal Not Available [facility] [place], [place], 07/08/2023 14:40:56 05/29/19 23 05/30/2022 COMPR EHENS TANI METAB OLIC PANEL chloride 106 mmol/ L 98-110 normal Not Available [facility] [place], 07/08/2023 14:40:56 05/29/19 23 05/30/2022 COMPR EHENS TANI METAB OLIC PANEL carbon dioxide 23 mmol/ L 20-32 normal Not Available [facility] [place], 07/08/2023 14:40:56 05/29/19 23 05/30/2022 COMPR EHENS TANI METAB OLIC PANEL calcium 9.8 mg/dL 8.6-10 .4 normal Not Available [facility] [place], 07/08/2023 14:40:56 05/29/19 23 05/30/2022 COMPR EHENS TANI METAB OLIC PANEL protein, total 6.8 g/dL 6.1-8. 1 normal Not Available [facility] [place], 07/08/2023 14:40:56 05/29/1905/30/2022 COMPR EHENS TANI METAB OLIC PANEL albumin 3.6 g/dL 3.6-5. 1 normal Not Available [facility] [place], 07/08/2023 14:40:56 05/29/19 23 05/30/2022 COMPR EHENS TANI METAB OLIC PANEL globulin 3.2 g/dL_ (calc ) 1.9-3. 7 normal Not Available [facility] [place], 07/08/2023 14:40:56 05/29/1905/30/2022 COMPR EHENS TANI METAB OLIC PANEL albumin/glob ulin ratio 1.1 (calc ) 1.0-2. 5 normal Not Available [facility] [place], 07/08/2023 14:40:56 05/29/1905/30/2022 COMPR EHENS TANI METAB OLIC PANEL bilirubin, total 0.6 mg/dL 0.2-1. 2 normal Not Available [facility] L[place], 07/08/2023 14:40:56 05/29/1905/30/2022 COMPR EHENS TANI METAB OLIC PANEL alkaline phosphatase 156 U/L 37-153 high Not Available [facility] [place], 07/08/2023 14:40:56 05/29/19 23 05/30/2022 COMPR EHENS TANI METAB OLIC PANEL AST 58 U/L 10-35 high Not Available [facility] [place], 07/08/2023 14:40:56 05/29/19 23 05/30/2022 COMPR EHENS TANI METAB OLIC PANEL ALT 29 U/L 6-29 normal Not Available [facility] [place], 07/08/2023 14:40:56 05/29/19 23 05/30/2022 MAGNE SIUM magnesium 2.0 mg/dL 1.5-2. 5 normal Not Available [facility] [place], 07/08/2023 14:40:55 05/29/1905/30/2022 LIPID PANEL , STAND NAOMI cholesterol, total 153 mg/dL <200 normal Not Available [facility] [place], 07/08/2023 14:40:55 05/29/19 23 05/30/2022 LIPID PANEL , STAND NAOMI HDL cholesterol 81 mg/dL > or = 50 normal Not Available [facility] [place], 07/08/2023 14:40:55 05/29/1905/30/2022 LIPID PANEL , STAND NAOMI triglyceride s 57 mg/dL <150 normal Not Available [facility] [place], 07/08/2023 14:40:55 05/29/1905/30/2022 LIPID PANEL , STAND NAOMI LDL-choleste rol [...] n, which is a valid ated novel metho d provi ding asmita r accur acy than the Fried felicia equat ion in the estim ation of LDL-C . Carol farias SS et al. AMANUEL. 2013; 310(1 9): 2061- 2068 (http ://ed ucati on.Qu estDi Other Machines. com/f aq/FA Q164) Not Available [facility] OLREN Mcne[place], 07/08/2023 14:40:55 05/29/1905/30/2022 LIPID PANEL , STAND NAOMI chol/HDLC ratio 1.9 (calc ) <5.0 normal Not Available [facility] [place], 07/08/2023 14:40:55 05/29/1905/30/2022 LIPID PANEL , STAND NAOMI non HDL cholesterol 72 mg/dL _(rubi c) <130 normal For patie nts with diabe john plus 1 major ASCVD risk facto r, treat ing to a non-H DL-C goal of <100 mg/dL (LDL- C of <70 mg/dL ) is consi dered a thera peuti c optio n. Not Available [facility] [place], [id number] 07/08/2023 14:40:55 05/29/19 23 05/30/2022 HEMOG LOBIN A1C hemoglobin A1C 4.7 %_of_ total _HGB <5.7 normal For the purpo se of scree nighat for the prese nce of diabe john: <5.7% Consi stent with the absen ce of diabe john 5.7-6 .4% Consi stent with incre ased risk for diabe john (pred iabet es) > or =6.5% Consi stent with diabe john This assay resul t is consi stent with a decre ased risk of diabe john. Curre ntly, no conse nsus exist s regar michael use of hemog lobin A1c for diagn [...] Care in Diabe john(A DA). Not Available [facility] [address] [facility], [place], [address], 05/30/2022 08:56:38 05/29/19 23 05/30/2022 TSH W/REF JORGE TO FT4 TSH w/reflex to FT4 2.88 mIU/L normal Refer ence Range > or = 20 Years 0.40- 4.50 Pregn adonay Range s First trime ster 0.26- 2.66 Secon d trime ster 0.55- 2.73 Third trime ster 0.43- 2.91 Not Available [facility] [address] [place], [address], 05/30/2022 08:56:37 05/29/19 23 05/30/2022 CBC (INCL UDES DIFF/ PLT) white blood cell count 6.6 thous and/u L 3.8-10 .8 normal Not Available [facility] [address] [place] [address], [address], 05/30/2022 08:56:36 05/29/19 23 05/30/2022 CBC (INCL UDES DIFF/ PLT) red blood cell count 3.71 dionna on/uL 3.80-5 .10 low Not Available [facility] [address] [place], [address], 05/30/2022 08:56:36 05/29/19 23 05/30/2022 CBC (INCL UDES DIFF/ PLT) hemoglobin 10.7 g/dL 11.7-1 5.5 low Not Available [facility] [address] [place], [address], 05/30/2022 08:56:36 05/29/19 23 05/30/2022 CBC (INCL UDES DIFF/ PLT) hematocrit 33.8 % 35.0-4 5.0 low Not Available [facility] [address] [place] [address], [address], 05/30/2022 08:56:36 05/29/19 23 05/30/2022 CBC (INCL UDES DIFF/ PLT) MCV 91.1 fL 80.0-1 00.0 normal Not Available [facility] [address] [place] [address], [address], 05/30/2022 08:56:36 05/29/19 23 05/30/2022 CBC (INCL UDES DIFF/ PLT) MCH 28.8 pg 27.0-3 3.0 normal Not Available [facility] [address] [place] [address], [address], 05/30/2022 08:56:36 05/29/19 23 05/30/2022 CBC (INCL UDES DIFF/ PLT) MCHC 31.7 g/dL 32.0-3 6.0 low Not Available [facility] [address] [place], [address], 05/30/2022 08:56:36 05/29/19 23 05/30/2022 CBC (INCL UDES DIFF/ PLT) RDW 13.0 % 11.0-1 5.0 normal Not Available [facility] [address] [place], [address], 05/30/2022 08:56:36 05/29/19 23 05/30/2022 CBC (INCL UDES DIFF/ PLT) platelet count 205 thous and/u L 140-40 0 normal Not Available [facility] [address] [place] [address], [address], 05/30/2022 08:56:36 05/29/19 23 05/30/2022 CBC (INCL UDES DIFF/ PLT) MPV 9.9 fL 7.5-12 .5 normal Not Available [facility] [address] [place] [address], [address], 05/30/2022 08:56:36 05/29/19 23 05/30/2022 CBC (INCL UDES DIFF/ PLT) absolute neutrophils 5293 cells /uL 1500-7 800 normal Not Available [facility] [address] [place] [address], [address], 05/30/2022 08:56:36 05/29/19 23 05/30/2022 CBC (INCL UDES DIFF/ PLT) absolute lymphocytes 719 cells /uL 850-39 00 low Not Available [facility] [address] [place] [address], [address], 05/30/2022 08:56:36 05/29/19 23 05/30/2022 CBC (INCL UDES DIFF/ PLT) absolute monocytes 442 cells /uL 200-95 0 normal Not Available [facility] [address] [place], [address], 05/30/2022 08:56:36 05/29/19 23 05/30/2022 CBC (INCL UDES DIFF/ PLT) absolute eosinophils 132 cells /uL 15-500 normal Not Available [facility] [address] [place] [address], [address], 05/30/2022 08:56:36 05/29/19 23 05/30/2022 CBC (INCL UDES DIFF/ PLT) absolute basophils 13 cells /uL 0-200 normal Not Available [facility] [address] [place] [address], [address], 05/30/2022 08:56:36 05/29/19 23 05/30/2022 CBC (INCL UDES DIFF/ PLT) neutrophils 80.2 % normal Not Available [facility] [address] [place] [address], [address], 05/30/2022 08:56:36 05/29/19 23 05/30/2022 CBC (INCL UDES DIFF/ PLT) lymphocytes 10.9 % normal Not Available [facility] [address] [place] [address], [address], 05/30/2022 08:56:36 05/29/19 23 05/30/2022 CBC (INCL UDES DIFF/ PLT) monocytes 6.7 % normal Not Available [facility] [address] [place] [address], [address], 05/30/2022 08:56:36 05/29/19 23 05/30/2022 CBC (INCL UDES DIFF/ PLT) eosinophils 2.0 % normal Not Available [facility] [address] [place] [address], [address], 05/30/2022 08:56:36 05/29/19 23 05/30/2022 CBC (INCL UDES DIFF/ PLT) basophils 0.2 % normal Not Available [facility] [address] [place], [address], 05/30/2022 08:56:36 05/29/19 23 05/30/2022 COMPR EHENS TANI METAB OLIC PANEL glucose 76 mg/dL 65-99 normal Fasti ng refer ence inter annia Not Available [facility] [address] [place], [address], 05/30/2022 08:56:35 05/29/19 23 05/30/2022 COMPR EHENS TANI METAB OLIC PANEL urea nitrogen (BUN) 12 mg/dL 7-25 normal Not Available [facility] [address] [place], [address], 05/30/2022 08:56:35 05/29/19 23 05/30/2022 COMPR EHENS TANI METAB OLIC PANEL creatinine 0.72 mg/dL 0.50-1 .03 normal Not Available [facility] [address] [place], [address], 05/30/2022 08:56:35 05/29/19 23 05/30/2022 COMPR EHENS TANI METAB OLIC PANEL eGFR 101 mL/mi n/1.7 3m2 > or = 60 normal The eGFR is based on the CKD-E PI 2020 equat ion. To calcu late the new eGFR from a previ ous Creat inine or Cysta tin C resul t, go to https ://gabriel murrieta.joy davis/jeni larose/ kdoqi /gfr% 5Fcal culat or Not Available [facility] [address] [place], [address], 05/30/2022 08:56:35 05/29/19 23 05/30/2022 COMPR EHENS TANI METAB OLIC PANEL BUN/creatini ne ratio not applic able (calc ) 6-22 Not Available [facility] [address] [place], [address], 05/30/2022 08:56:35 05/29/19 23 05/30/2022 COMPR EHENS TANI METAB OLIC PANEL sodium 140 mmol/ L 135-14 6 normal Not Available [facility] [address] [place], [address], 05/30/2022 08:56:35 05/29/19 23 05/30/2022 COMPR EHENS TANI METAB OLIC PANEL potassium 4.2 mmol/ L 3.5-5. 3 normal Not Available [facility] [address] [place] [address], [address], 05/30/2022 08:56:35 05/29/19 23 05/30/2022 COMPR EHENS TANI METAB OLIC PANEL chloride 106 mmol/ L 98-110 normal Not Available [facility] [address] [place] [address], [address], 05/30/2022 08:56:35 05/29/19 23 05/30/2022 COMPR EHENS TANI METAB OLIC PANEL carbon dioxide 23 mmol/ L 20-32 normal Not Available [facility] [address] [place] [address], [address], 05/30/2022 08:56:35 05/29/19 23 05/30/2022 COMPR EHENS TANI METAB OLIC PANEL calcium 9.8 mg/dL 8.6-10 .4 normal Not Available [facility] [address] [place] [address], [address], 05/30/2022 08:56:35 05/29/19 23 05/30/2022 COMPR EHENS TANI METAB OLIC PANEL protein, total 6.8 g/dL 6.1-8. 1 normal Not Available [facility] [address] [place] [address], [address], 05/30/2022 08:56:35 05/29/19 23 05/30/2022 COMPR EHENS TANI METAB OLIC PANEL albumin 3.6 g/dL 3.6-5. 1 normal Not Available [facility] [address] [place], [address], 05/30/2022 08:56:35 05/29/19 23 05/30/2022 COMPR EHENS TANI METAB OLIC PANEL globulin 3.2 g/dL_ (calc ) 1.9-3. 7 normal Not Available [facility] [address] [place], [address], 05/30/2022 08:56:35 05/29/19 23 05/30/2022 COMPR EHENS TANI METAB OLIC PANEL albumin/glob ulin ratio 1.1 (calc ) 1.0-2. 5 normal Not Available [facility] [address] [place], [address], 05/30/2022 08:56:35 05/29/19 23 05/30/2022 COMPR EHENS TANI METAB OLIC PANEL bilirubin, total 0.6 mg/dL 0.2-1. 2 normal Not Available [facility] [address] [place], [address], 05/30/2022 08:56:35 05/29/19 23 05/30/2022 COMPR EHENS TANI METAB OLIC PANEL alkaline phosphatase 156 U/L 37-153 high Not Available [facility] [address] [place], [address], 05/30/2022 08:56:35 05/29/19 23 05/30/2022 COMPR EHENS TANI METAB OLIC PANEL AST 58 U/L 10-35 high Not Available [facility] [address] [place], [address], 05/30/2022 08:56:35 05/29/19 23 05/30/2022 COMPR EHENS TANI METAB OLIC PANEL ALT 29 U/L 6-29 normal Not Available [email or web address] [address] [place], [address], 05/30/2022 08:56:35 05/29/19 23 05/30/2022 MAGNE SIUM magnesium 2.0 mg/dL 1.5-2. 5 normal Not Available [facility] [address] [place], [address], 05/30/2022 08:56:34 05/29/19 23 05/30/2022 LIPID PANEL , STAND NAOMI cholesterol, total 153 mg/dL <200 normal Not Available [facility] [address] [place], [address], 05/30/2022 08:56:34 05/29/19 23 05/30/2022 LIPID PANEL , STAND NAOMI HDL cholesterol 81 mg/dL > or = 50 normal Not Available [facility] [address] [place], [address], 05/30/2022 08:56:34 05/29/19 23 05/30/2022 LIPID PANEL , STAND NAOMI triglyceride s 57 mg/dL <150 normal Not Available [facility] [address] [place], [address], 05/30/2022 08:56:34 05/29/19 23 05/30/2022 LIPID PANEL [...] ated novel chapin santos than the Tesfaye duarte equat ion in the estim ation of LDL-C . Carol farias SS et al. AMANUEL. 2013; 310(1 9): 2061- 2068 (http ://ed ucati on.Qu estDi Amoobios Needs. com/f aq/FA Q164) Not Available [facility] [address] [place], [address], 05/30/2022 08:56:34 05/29/19 23 05/30/2022 LIPID PANEL , STAND NAOMI chol/HDLC ratio 1.9 (calc ) <5.0 normal Not Available [facility] [address] [facility], [place], [address], 05/30/2022 08:56:34 05/29/19 23 05/30/2022 LIPID PANEL , STAND NAOMI non HDL cholesterol 72 mg/dL _(rubi c) <130 normal For patie nts with diabe john plus 1 major ASCVD risk facto r, treat ing to a non-H DL-C goal of <100 mg/dL (LDL- C of <70 mg/dL ) is zahraa pruitt optio n. Not Available [facility] [address], [place], [address], 05/30/2022 08:56:34 06/27/19 23 06/26/2022 urina lysis , dipst ick Leukocytes Large Not Available [facility] [address], [place], [address], 06/26/2022 15:48:22 06/27/19 23 06/26/2022 urina lysis , dipst ick Nitrite positi ve Not Available [facility] [place] [address], [place], [address], 06/26/2022 15:48:22 06/27/19 23 06/26/2022 urina lysis , dipst ick Urobilinogen 8 Not Available [facility] [address], [place], [address], 06/26/2022 15:48:22 06/27/19 23 06/26/2022 urina lysis , dipst ick Protein 30 Not Available [place] [address], [place], [address], 06/26/2022 15:48:22 06/27/19 23 06/26/2022 urina lysis , dipst ick pH 5.5 Not Available [place] [address], [place], [address], 06/26/2022 15:48:22 06/27/19 23 06/26/2022 urina lysis , dipst ick Blood Large Not Available [place] [address], [place], [address], 06/26/2022 15:48:22 06/27/19 23 06/26/2022 urina lysis , dipst ick Specific [place] 1.010 Not Available [facility] [place] [address], [place], [address], 06/26/2022 15:48:22 06/27/19 23 06/26/2022 urina lysis , dipst ick Ketone Negati ve Not Available [facility] [place] [address], [place], [address], 06/26/2022 15:48:22 06/27/19 23 06/26/2022 urina lysis , dipst ick Bilirubin Small Not Available [facility] [place] [address], [place], [address], 06/26/2022 15:48:22 06/27/19 23 06/26/2022 urina lysis , dipst ick Glucose Negati ve Not Available [facility] [place] [address], [place], [address], 06/26/2022 15:48:22 06/27/19 23 06/26/2022 urina lysis , dipst ick Appearance Turbid Not Available [place] [address], [place], [address], 06/26/2022 15:48:22 06/27/19 23 06/26/2022 urina lysis , dipst ick Color [place] Not Available [facility] [address], [place], [address], 06/26/2022 15:48:22 05/10/19 23 05/10/2022 CT, lower extre mity, w/o contr ast No observ ation record ed. [id number] [facility] (Radiology) [address], [place], [address], 02/17/2023 20:57:33 08/11/19 23 07/28/2022 MAMMO , scree nighat, tomos ynthe sis, bilat eral, w/ CAD No observ ation record ed. [id number] Not Available 02/17/2023 20:57:33 09/23/19 23 09/22/2022 US, doppl er, venou s No observ ation record ed. [id number] [facility] [address] [facility], [place], [address], 02/17/2023 20:57:33 09/23/19 23 09/22/2022 XR, knee, 1 or 2 view No observ ation record ed. [id number] [facility] [address] [facility], [place], [address], 02/17/2023 20:57:33 Result Notes None recorded. Problems Name Problem SNOMED Code Status Onset Date Resolution Date Notes Provider Name and Address Organization Details Recorded Time Benign essential hypertension 7770583 Active 2022 Not Available [facility] 21:01:08 Herpes labialis 9096965 Active 2022 Not Available [facility] 21:01:08 Pruritic disorder 321283226 Active 2022 Not Available [facility] 3 21:01:08 Chronic acquired lymphedema 85518289 Active 2022 Not Available [facility] 3 21:01:08 Major depressive disorder 449261406 Active 2022 Not Available [facility] 3 21:01:08 Acute urinary tract infection 635353630 Active 2022 Not Available [facility] 3 21:01:09 Cellulitis of lower limb 950269313 Active 2022 Not Available [facility] 3 21:01:09 Adjustment disorder with anxious mood 45442726 Active 2022 Not Available [facility] 3 21:01:09 Atrial fibrillation 52792971 Active 2022 Not Available [facility] 3 21:01:09 Recurrent deep vein thrombosis 683592899 Active 2022 Not Available [facility] 21:01:09 Problem Notes None recorded. Procedures Surgical History Date Name Laterality Status Provider Name and Address Organization Details Recorded Time 9 section completed Not Available [facility] 02/17/2023 20:57:23 0 Gastric bypass for obesity completed Not Available [facility] 02/17/2023 20:57:23 9 section completed Not Available [facility] 02/17/2023 20:57:23 5 section completed Not Available [facility] 02/17/2023 20:57:23 Imaging Results Imaging Date Name Status LastModified by Organiz ation Details LastModified Time 07/28/2022 MAMMO, screening, tomosynthesis , bilateral, w/ CAD completed [id number] Information not available 02/17/2023 20:57:33 05/10/2022 CT, lower extremity, w/o contrast completed [id number] [facility] (Radiology) [address], [place], [address], 02/17/2023 20:57:33 09/22/2022 US, doppler, venous completed [id number] [facility] [address] [place], [address], 02/17/2023 20:57:33 09/22/2022 XR, knee, 1 or 2 view completed [id number] [facility] [address], [place], [address], 02/17/2023 20:57:33 Procedure Notes None recorded. Medical Equipment None Reported. Allergies Allergen ID Allergen Name Allergen Category Reaction Reaction Severity Criticality Documentation Date Start Date Code Code System Note Provider Name and Address Organization Details Recorded Time 705775 nitrofura ntoin medicatio n Not available Not available Not available 02/17/2023 7454 RxNorm Not Available [facility] 21:01:55 Medications Name Sig Start Date Stop Date [...] Not Available valacyclovi r 1 gram tablet Take 2 tablets every 12 hours by oral route for 1 day. active Not Available Not Available No t [...] BY MOUTH TWICE DAILY FOR 7 DAYS active Not Available Not Available No t Available sulfamethox azole 800 mg-trimetho prim 160 mg tablet Take 1 tablet every 12 hours by oral route for 7 days. active Not Available Not Available No t Available hydrocodone 10 mg-acetamin ophen 325 mg tablet TAKE 1 TABLET BY MOUTH TWICE DAILY NEEDED FOR PAIN active Not Available Not Available No t Available omeprazole 40 mg capsule,del ayed release TAKE 1 CAPSULE (40 MG TOTAL) BY MOUTH DAILY. active Not Available Not Available No t Available triamcinolo ne acetonide 0.1 % topical cream APPLY THIN LAYER TOPICALLY TO THE AFFECTED AREA TWICE DAILY active Not Available Not Available No t Available oxycodone-a cetaminophe n 5 mg-325 mg tablet TAKE 1/2 TABLET BY MOUTH EVERY 6 HOURS NEEDED FOR PAIN active Not Available Not Available No t Available amitriptyli ne 25 mg tablet TAKE 1 TABLET BY MOUTH EVERY DAY 05/29 completed Not Available Not Available Not Available amlodipine 10 mg tablet TAKE 0.5 OF A TABLET BY MOUTH DAILY active Not Available Not Available No t Available folic acid 1 mg tablet TAKE [...] completed Not Available Not Available Not Available zolpidem 10 mg tablet active Not Available Not Available No t Available methylpredn isolone 4 mg tablets in a dose pack FOLLOW PACKAGE DIRECTION S active Not Available Not Available No t Available amoxicillin 875 mg-potassiu m clavulanate 125 [...] oin monohydrate /macrocryst als 100 mg capsule Take 1 capsule every 12 hours by oral route for 5 days. active Not Available Not Available No [...] Available No t Available Vitals Date Recorded Body mass index (BMI) Body height Oxygen saturation Oxygen saturation in Arterial blood by Pulse oximetry Heart rate Respiratory rate Body temperature Body weight Systolic blood pressure Diastolic blood pressure Provider Name and Address Organization Details Last Updated DateTime 3 54.2 kg/m2 167.64 cm 98 % 98 % 74 /min 16 /min 97.8 [degF] 529571. 6 g 135 mm[Hg] 90 mm[Hg] Not Available [facility] 3 21:00:46 Date Recorded Body mass index (BMI) Body height Oxygen saturation Oxygen saturation in Arterial blood by Pulse oximetry Heart rate Respiratory rate Body temperature Body weight Systolic blood pressure Diastolic blood pressure Provider Name and Address Organization Details Last Updated DateTime 3 49 kg/m2 167.64 cm 95 % 95 % 100 /min 18 /min 97.9 [degF] 551419. 36 g 130 mm[Hg] 70 mm[Hg] Not Available [facility] 3 21:00:46 Social History Question Answer Notes LastModified by Organizat ion Details LastModified Time Tobacco Smoking Status Never Smoker Not Available [facility] 02/17/2023 20:56:11 Are You Blind Or Do You Have Difficulty Seeing? No MIGRATION.[id number] Information not available 02/17/2023 Are You A Caregiver? No MIGRATION.28841 23791 Information not available 02/17/2023 Are You Currently Employed? No On Disability Since 2019 MIGRATION.17579 [id number] Information not available 02/17/2023 Are You Deaf Or Do You Have Serious Difficulty Hearing? No MIGRATION.75808 26519 Information not available 02/17/2023 What Type Of Diet Are You Following? REGULAR MIGRATION.60852 09599 Information not available 02/17/2023 What Is The Highest Grade Or Level Of School You Have Completed Or The Highest Degree You Have Received? [id number] MIGRATION.01973 [id number] Information not available 02/17/2023 Have There Been Any Changes To Your Family Or Social Situation? Yes Chronic Wound On Her Right Leg MIGRATION.97039 86991 Information not available 02/17/2023 What Was The Date Of Your Most Recent Tobacco Screening? 05/29/2022 MIGRATION.41887 [id number] Information not available 02/17/2023 What Is Your Relationship Status? Single MIGRATION.39156 03111 Information not available 02/17/2023 Do You Use Your Seat Belt Or Car Seat Routinely? Yes MIGRATION.16035 52271 Information not available 02/17/2023 Do You Have Smoke And Carbon Monoxide Detectors In Your Home? Yes MIGRATION.86080 83530 Information not available 02/17/2023 Do You Feel Stressed (tense, Restless, Nervous, Or Anxious, Or Unable To Sleep At Night)? [id number] MIGRATION.70850 95170 Information not available 02/17/2023 Do You Use Any Illicit Or Recreational Drugs? No MIGRATION.57573 02035 Information not available 02/17/2023 Do You Or Have You Ever Used Any Other Forms Of Tobacco Or Nicotine? No MIGRATION.92269 50833 Information not available 02/17/2023 Sex: Female Functional Status Question Answer Note LastModified by Organizat ion Details LastModified Time Do you have difficulty walking or climbing stairs? Yes doing better MIGRATION.039992 5361 Information not available 02/17/2023 Do you have transportation difficulties? No MIGRATION.849465 4391 Information not available 02/17/2023 Are you able to walk? YESWOREST MIGRATION.474774 9520 Information not available 02/17/2023 Do you have difficulty doing errands alone? No MIGRATION.353039 6968 Information not available 02/17/2023 Are you able to care for yourself? Yes MIGRATION.263095 7246 Information not available 02/17/2023 Do you have difficulty dressing or bathing? No MIGRATION.709203 9493 Information not available 02/17/2023 Mental Status Question Answer Note LastModified by Organizat ion Details LastModified Time Do you have difficulty concentrating, remembering or making decisions? No MIGRATION.[id number] 0 Information not available 02/17/2023 Family History Relationship Description Onset Age of this Age Resolved Age Notes LastModified by Organization Details LastModified Time Father Arthritis [id number] Not available 02/17/2023 20:57:26 Father Diabetes mellitus MIGRATION.788 [id number] Not available 02/17/2023 20:57:26 Father Hypertensive disorder MIGRATION.892 [id number] Not available 02/17/2023 20:57:26 Mother Arthritis MIGRATION.707 [id number] Not available 02/17/2023 20:57:26 Mother Diabetes mellitus MIGRATION.389 [id number] Not available 02/17/2023 20:57:27 Mother Glaucoma MIGRATION.254 [id number] Not available 02/17/2023 20:57:27 Mother Hypertensive disorder MIGRATION.986 [id number] Not available 02/17/2023 20:57:27 Brother Hypertensive disorder MIGRATION.266 [id number] Not available 02/17/2023 20:57:27 Medical History Condition Response Gout N Other N Blood Diseases N Kidney Stones N Breast Cancer N Blood Transfusion N Depression Y Developmental or Behavioral Disorders N Eating Disorder N Hyperthyroidism (over active) N Anemia N Anesthesia Complications N Anxiety Disorder Y Ovarian Cancer N Obesity Y Arthritis Y Congestive Heart Failure (CHF) N Hypothyroidism (under active) N Cancer N Diverticulitis N Asthma N Bladder or Kidney Problems N Hepatitis N Heart Disease Y Pulmonary Embolism N Fibromyalgia N Headaches N Osteoporosis N Kidney Disease N Gynecological History Statement/Question Response Current Control Method None Obstetrics History GPAL:G 0 P 0 0 0 0 Immunizations Vaccine Type Date Status Note Provider Nam e and Address Organization Details Recorded Time Influenza, split virus, quadrivalent, PF 01/31/2021 completed Not Available [facility] 21:01:47 Past Encounters Encounter ID Performer Location Encounter Start Date Encounter Closed Date Diagnosis/Indication Diagnosis SNOMED-CT Code Diagnosis ICD10 Code [id number] [facility] [address] [place] [address] 05/29/2022 00:00:00 05/29/2022 22:38:36 [id number] [facility] [address] [place] [address] 06/26/2022 00:00:00 06/26/2022 17:01:33 Health Concerns Section Related Observation LastModified by Organization Detai ls LastModified Time None Recorded Concern Status LastModified by Organization Details LastModified Time None Recorded Advance Directives Directive None Recorded Payers None recorded. Notes Date Note Type Note Provider Name and Address Organization Details Recorded Time 05/29/19 text/htm l Yearly PhysicalReported bypatient.Physical Activity:does not [...] of depression; no history of mood disorders DIRECTOR OF PATIENT SAFETY Historyprior pap smear, normal results; prior mammogram, normal results Not Available [facility] 05/29/2022 22:38:36 06/27/19 text/htm l EdemaReported bypatient.Location:[facility] Quality:legs do not swell equally Duration:constant Onset/Timing:started [...] feel good. Associated Symptoms:no fever;abdominal pain;chills;urgency;frequenc y;dysuria Not Available [facility] 06/26/2022 17:01:33 OBGyn Episode No OBEpisode recorded.
--- OUTSIDE RECORDS SUMMARY | 2024-03-24 18:53 | XMS_ITS | Referral Summary ---
Author Organization [facility] Address [address] [place] [address] Care Team Providers Care Can Doffer Name Role Phone Haritha Tse NP Primary Care Provider Lynn Velásquez MA Unavailable Encounters Date Type Department Care Team Description 03/17/2024 SUKHWINDER IP Outreach [address] [address] Lynn Velásquez MA 03/16/2024 2:30 PM CUSTOMER EXPERIENCE LEADER Office Visit [facility] Internal Medicine at [address] [place] [id number] Haritha Tse NP Morbid obesity with BMI of 45.0-49.9, adult (HCC) (Primary Dx); Morbid obesity with BMI of 45.0-49.9, adult (HCC); Primary insomnia 03/09/2024 SUKHWINDER IP Outreach [address] [address] Lynn Velásquez MA 03/06/2024 SUKHWINDER IP Outreach [address] [address] Lynn Velásquez MA 02/28/2024 Orders Only [facility] Health Information Management [address] [place] [address] Haritha Tse NP 01/23/2024 Telephone [facility] Internal Medicine at [address] [place] [address] Haritha Tse NP Medication Request 01/21/2024 2:00 PM CDT Office Visit [facility] Internal Medicine at [address] [place] [address] Haritha Tse NP Anxiety (Primary Dx); BMI 45.0-49.9, adult (HCC); Morbid obesity (HCC); chronic right knee pain; Dysuria 01/06/2024 Telephone [facility] Internal Medicine at [address] [place] [address] Haritha Tse NP Medical Question/Miscellaneo us from Last 3 Months Allergies Active Allergy Reactions Criticality Noted Date [...] every 12 (twelve) hours 60 tablet 03/09/20 Active Xarelto 10 mg tablet TAKE 1 [...] symptoms Assessment & Plan (03/20/2023 9:07 AM CUSTOMER EXPERIENCE LEADER): This is a significant, separately identifiable problem that was evaluated and managed on the same day as the wellness exam Chronic pain of both knees 10/30/2022 Poor circulation 10/18/2022 Peptic ulceration 10/18/2022 Opioid dependence 10/18/2022 Chronic pain syndrome 10/18/2022 Assessment & Plan (03/20/2023 9:04 AM CUSTOMER EXPERIENCE LEADER): Patient has chronic pain and is on [...] 04/19/2020 Assessment & Plan (04/20/2020 11:10 AM CUSTOMER EXPERIENCE LEADER): Patient recently had an episode of cellulitis and was hospitalized for IV antibiotics. Morbid obesity with BMI of 45.0-49.9, adult 03/09 Assessment & Plan (03/16/2024 2:51 PM CUSTOMER EXPERIENCE LEADER): Discussed the patient's BMI. The BMI is [...] provided. Assessment & Plan (03/15/2023 10:42 AM CUSTOMER EXPERIENCE LEADER): Discussed the patient's BMI. The BMI is [...] the wellness exam Congestive heart failure (CHF) ([facility]) 020 Assessment & Plan (04/30/2019 2:21 AM CUSTOMER EXPERIENCE LEADER): Per patient, recently diagnosed at [facility] (02/2019). - Requested [facility] Records to be faxed over - Hold home metop XL and furosemide Hypothyroidism 04/30/2019 Assessment & Plan (04/20/2020 11:10 AM CUSTOMER EXPERIENCE LEADER): Followed by her PCP and controlled at this time. Assessment & Plan (04/30/2019 2:23 AM CUSTOMER EXPERIENCE LEADER): Pt with reported new diagnosis of hypothyroidism and prescription of levothyroxine 50mcg. -Requested [facility] Records -Repeat TSH -Will start home levothyroxine pending TSH Acute upper GI bleed 04/30/2019 Assessment & Plan (04/30/2019 5:12 AM CUSTOMER EXPERIENCE LEADER): 2 week hx melenic stools. Per pt, admitted to [facility] on 04/14 and d/c 04/24; she required [...] 2 units pRBC in ED. - Requested [facility] records - 2 Large bore IVs - NPO for EGD - Q8H CBCs, T&S, consented - Transfuse for Hgb<7 - IV protonix BID - Monitor on Telemetry - avoid NSAIDs, ASA, anticoagulants Acute blood loss anemia 04/30/2019 Assessment & Plan (04/30/2019 5:32 AM CUSTOMER EXPERIENCE LEADER): Hgb to 5.6 in the setting of melenic stools. S/p 2u pRBC in ED. -q8h CBC, T&S, consented -further management as listed under upper GI bleed Gastrointestinal hemorrhage with melena 04/29/19 20 Overview (04/30/2019): Added automatically from request for surgery [id number] Acute posthemorrhagic anemia 04/29/2019 Acute upper gastrointestinal hemorrhage 04/29/19 Congestive heart failure ([facility]/HCC) 04/29/2019 Hypothyroidism 04/29/2019 Gastrointestinal hemorrhage with melena 04/28/19 20 Lymphedema 03/13/2019 Chronic deep vein thrombosis (DVT) of right lowe r extremity 07/31/2018 Overview (10/18/2022): twice with lymphedema Cocaine dependence, continuous (CMS/HCC) 018 alcohol use disorder 02/04/2018 Assessment & [...] 1:02 PM CDT): Everyday drinker, last drink 02/03 AM. H/o EtOH withdrawal, but denies DT's. -CIWA protocol, still using librium q4 and would be concerned about misuse as an outpatient -High-dose thiamine Assessment & Plan (02/05/2018 2:04 PM CDT): Everyday drinker, last drink 02/03 AM. H/o EtOH withdrawal, but denies DT's. -CIWA protocol -High-dose thiamine -SW consult for outpatient resources Assessment & Plan (02/04/2018 6:40 AM CDT): Everyday drinker, last drink 02/03 AM. H/o EtOH withdrawal, but denies DT's. -CIWA protocol -Thiamine folate, MVI -SW consult for outpatient resources Assessment & Plan (02/04/2018 6:27 AM CDT): Patient has a 10 year history of substantial alcohol use, drinking 1 bottle of wine / day everyday for the last 10 years. She had been to [facility] and discharged last week, she states she [...] for chemical dependency and outpatient psychiatry at [facility] - monitor for alcohol withdrawal Assessment & Plan (02/04/2018 4:36 AM CDT): Patient has a 10 year history of substantial alcohol use, drinking 1 bottle of wine / day everyday for the last 10 years. She had been to [facility] and discharged last week, she states she [...] for chemical dependency and outpatient psychiatry at [facility] Dementia associated with alcoholism 02/04/2018 Assessment & [...] is concrete unable to abstractly interpret dont stogy roller a book by its cover , she also appears disinhibited for example stating the examiner was handsome, asking how much money he made. Patient may also have some grandiose delusions stating she is suing [employer] for racism after an incident during her last hospitalization and states her assistant city attorney said she may get 10-20million dollars [...] is concrete unable to abstractly interpret dont stogy roller a book by its cover , she also appears disinhibited for example stating the examiner was handsome, asking how much money he made. Patient may also have some grandiose delusions stating she is suing [employer] for racism after an incident during her last hospitalization and states her assistant city attorney said she may get 10-20million dollars [...] decline since 11/2017. 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 Disinhibition with worsening EtOH abuse, new PSA [...] decline since 11/2017. 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 Disinhibition with worsening EtOH abuse, new PSA [...] decline since 11/2017. 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 Disinhibition with worsening EtOH abuse, new PSA [...] decline since 11/2017. 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 Assessment & Plan (04/30/2019 2:19 AM CUSTOMER EXPERIENCE LEADER): Prior DVTs/PEs. S/p IVC filter placement. On [...] system as she recently moved here from [place]. Pt reports missing 1 week of warfarin [...] system as she recently moved here from [place]. Pt reports missing 1 week of warfarin after running out two weeks ago -Cont lovenox, warfarin, goal INR 2-3 Assessment & Plan (02/05/2018 2:06 PM CDT): History of multiple recurrent DVTs. On life long anticoagulation per patient and family, confirmed on phone with PCP office. No records in our system as she recently moved here from [place]. Pt reports missing 1 week of warfarin after running out two weeks ago -Cont lovenox, warfarin, goal INR 2-3 Assessment & Plan (02/04/2018 6:45 AM CDT): History of multiple recurrent DVTs. On life long anticoagulation per patient and family -No records in our system as she recently moved here from [place] -Pt reports missing 1 week of warfarin after running out two weeks ago -Called [facility] and [facility]. Her warfarin script for 5mg had not been filled since April at [facility] and since June at [facility], INR currently 1.35 -Patient is unclear when last acute DVT was. Her son thinks this was in 11/2017 -Given lovenox x1 in ED. Will cont lovenox for now -Restart warfarin 5mg qday Lymphedema of right lower extremity 02/04/2018 Assessment & Plan (04/20/2020 11:11 AM CUSTOMER EXPERIENCE LEADER): Patient has lymphedema bilateral lower extremities with [...] 02/04/2018 Assessment & Plan (04/20/2020 11:10 AM CUSTOMER EXPERIENCE LEADER): Followed by her PCP and controlled on medications at this time. Assessment & Plan (04/30/2019 2:20 AM CUSTOMER EXPERIENCE LEADER): Reviewed patient's medication bottles at bedside. Currently [...] 06/11/2016 Assessment & Plan (03/20/2023 9:07 AM CUSTOMER EXPERIENCE LEADER): This is a significant, separately identifiable problem that was evaluated and managed on the same day as the wellness exam Lymphedema of lower extremity 06/11/2016 Overview (10/18/2022): chronic, right leg Immunizations Name Administration Dates Next Due Influenza, Quadrivalent, Spl it, Preservative Free, Intramuscular 01/31/2021 Influenza, Unspecified 01/10/2024,2022(Deferred: Patient Refused),01/20/2023,04/08/2022(Deferre d: Patient Refused),01/20/2022 Pfizer SARS-CoV-2 Monovalent Vaccination (12+ Yrs) PURPLE 07/27/2020,06/29/2020 Social History Tobacco Use Types Packs/Day Years [...] Orientation Straight 11/23/2020 10 :23 AM CDT Last Filed Vital Signs Vital Sign Reading Time Taken Comments Blood Pressure 122/70 03/16/2024 2:44 PM CUSTOMER EXPERIENCE LEADER Pulse 99 03/16/2024 2:44 PM CUSTOMER EXPERIENCE LEADER Temperature 37.1 ??C (98.7 ??F) 03/16/2024 2:44 PM CS T Respiratory Rate 16 01/21/2024 2:07 PM CDT Oxygen Saturation 100% 03/16/2024 2:44 PM CUSTOMER EXPERIENCE LEADER Inhaled Oxygen Concentration - - Weight 135.6 kg (299 lb) 03/16/2024 2:44 PM CUSTOMER EXPERIENCE LEADER Height 170.2 cm (5' 7 ) 03/16/2024 2:44 PM CUSTOMER EXPERIENCE LEADER Body Mass Index 46.83 03/16/2024 2:44 PM CUSTOMER EXPERIENCE LEADER Plan of Treatment Not on file Procedures [...] AM CDT) Hep A IgM Nonreactive Nonreactive [facility] Comment: Interpretive Data If test is reported as GRAYZONE, new sample should be drawn in two weeks for testing. Current interpretive data was last revised on 2016. Hep B core IgM Nonreactive Nonreactive [facility] Comment: Interpretive Data If test is reported as GRAYZONE, new sample should be drawn for testing. Current interpretive data was last revised on 2016. Hep C Ab Nonreactive Nonreactive [facility] Comment: Interpretive Data Positive results should be confirmed by a molecular method. If positive, a second separately collected sample should be submitted for Hepatitis C Virus (HCV) RNA Detection and Quantitation by Real-Time Reverse System Software Programmer-PCR (RT-PCR). Current interpretive data was last revised on 2016. HepBsAg Nonreactive Nonreactive [facility] Blood specimen (specimen) 02/04/2018 4:42 AM CDT 02/04/2018 6:09 AM CDT Narrative [facility] - 02/04/2018 2:22 PM CDT Leelee Sierra MD LAB MICROBIOLOGY - GENERAL ORD ERABLES Edited Result - Final [facility] Department [place] [address] from Last 3 Months or Most Recently Relevant to Health Maintenance Insurance [place] [address] [employer] MEDICARE HMO Advance Directives For more information, please contact: [phone] Documents on File Type Date Recorded Patient Wood Shingle Roofer Expl anation ADVANCE DIRECTIVE 07/20/2018 12:00 AM DWAYNE R OF RESPIRATORY CARE ASSISTANT FINANCIAL/MEDICAL * Full Code (Latest Code Status on File) Date Activated Date Inactivated Comments 04/30/2019 4:28 PM 05/02/2019 7:22 PM * Full Code Date Activated Date Inactivated Comments 04/30/2019 1:34 PM 04/30/2019 4:28 PM * Full Code Date Activated Date Inactivated Comments 02/04/2018 5:45 PM 02/07/2018 6:46 PM Care Teams Can Doffer Relationship Specialty Start Date End Date Haritha Tse NP [address] [place] [address] PCP - General Internal Medicine 10/30/22 yLnn Velásquez MA [address] [place] [address] [address] [place] [address] ACO Care Land Resource Specialist 03/06/24
--- OUTSIDE RECORDS SUMMARY | 2024-03-24 18:53 | XMS_ITS | Encounter Summary ---
Author Organization [facility] Healthcare Address [address] [place] [address] Care Team Providers Care Refrigerating Engineer Name Role Phone Haritha Tse NP Primary Care Provider [phone] Reason for Visit * Reason Onset Date Comments Symptom Based Call 10/08/2023 Encounter Details Date Type Department Care Team (Late st Contact Info) Description 10/08/2023 Telephone [facility] Internal Medicine at [place] [address] [place] [address] Haritha Tse NP [address] [place] [address] Symptom Based Call Social History Tobacco Use Types Packs/Day Years [...] more points, staff should administer the PHQ-9) 4 10/08/2023 Comments No Sex and Gender Information Value Date Recorded Sex Assigned at Not on file Legal Sex Female 7:50 PM CDT Gender Identity Female 11/23/2020 10:23 AM CDT Sexual Orientation Straight 11/23/2020 10 :23 AM CDT documented as of 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 Ordered Prescriptions Prescription Sig Dispense Quantity Refills Last Filled Start Date End Date polymyxin B-trimethoprim (POLYTRIM) ophthalmic solution Administer 2 drops into both eyes 4 (four) times a day 10 mL 10/08/2023 documented in 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 Miscellaneous Notes * Telephone Encounter - Kristin Singh MA - 10/08/2023 2:59 PM CDT Called left message for patient medication sent. * Telephone Encounter - Haritha Tse NP - 10/08/2023 1:59 PM CDT Meds sent * Telephone Encounter - Shivani Toribio - 10/08/2023 12:14 PM CDT Symptom Based Call Chief Complaint(s): Running itchy eyes, white coal coming out. Duration: 2 weeks What type of symptom(s) is the patient experiencing? Non-Emergent. Is this a new or reoccurring symptom(s)? reoccurring What have you tried to help your symptom(s)? Eye drops was given in hospital but hasn't helped Why was appointment not scheduled? Requesting advice from clinical tractor driver teamster. Additional Comments: Pt forgot to discuss this on her video visit. Pt asking for medication to be sent to [id number] Does message need to be routed? Yes-Action Needed documented in 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 Plan of Treatment Not on file documented as of 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 Visit Diagnoses Not on filedocumented in 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 Care Teams Refrigerating Engineer Relationship Specialty Start Date End Date Haritha Tse NP [address] [address] PCP - General Internal Medicine 10/30/22 documented as of 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
--- OUTSIDE RECORDS SUMMARY | 2024-03-24 18:53 | XMS_ITS | Encounter Summary ---
Author Organization [facility] Healthcare Address [address] [place] [address] Care Team Providers Care Director Of Event Marketing Name Role Phone Haritha Tse NP Primary Care Provider [phone] Reason for Visit * Reason Onset Date Comments Medication Request 01/23/2024 Encounter Details Date Type Department Care Team (Late st Contact Info) Description 01/23/2024 Telephone [facility] Internal Medicine at [place] [address] [place] [address] Haritha Tse NP [address] [place] [address] Medication Request Social History Tobacco Use Types Packs/Day [...] more points, staff should administer the PHQ-9) 0 01/21/2024 Comments No Sex and Gender Information Value Date Recorded Sex Assigned at Not on file Legal Sex Female 7:50 PM CDT Gender Identity Female 11/23/2020 10:23 AM CDT Sexual Orientation Straight 11/23/2020 10 :23 AM CDT documented as of 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 Ordered Prescriptions Prescription Sig Dispense Quantity Refills Last Filled Start Date End Date oxyCODONE (ROXICODONE) 10 mg tabletIndications: Pain Take 1 tablet (10 mg total) by mouth every 12 (twelve) hours 60 tablet 01/29/2024 03/07/2024 documented in 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 Miscellaneous Notes * Telephone Encounter - Kristin Singh MA - 01/29/2024 12:14 PM CDT Called left 3rd message. * Telephone Encounter - Nicole Ferreira LPN - 01/28/2024 10:23 AM CDT Called and LVM x 2 * Telephone Encounter - Nicole Ferreira LPN - 01/24/2024 2:37 PM CDT Called and LVM for pt to return call. * Telephone Encounter - Haritha Tse NP - 01/23/2024 1:34 PM CDT She never said anything about being out of town and filling early. When is she leaving and how soonwill she fill it? I wont fill the next one until she is due on a regular schedule. She may fill early but will not be able to fill early again * Telephone Encounter - Chloe Lowe - 01/23/2024 12:45 PM CDT Medication Question/Clarification Medication Name(s): oxyCODONE (ROXICODONE) 10 mg tablet What is the question or clarification needed? Pt had this filled on 01/09 and since this is being filled too early and was advised that the pt stated that she will be going out of town for a month. Pharmacy is needing a verbal ok to fill early and would like a callback to advise. If needed, Pharmacy(s) medication(s) should be sent to: [facility] Additional Comments: na Does message need to be routed? Yes-Action Needed documented in this encounter Plan of Treatment Not on file documented as of this encounter Visit Diagnoses Diagnosis chronic right knee pain documented in this encounter Discontinued Medications Medication Sig Discontinue Reason Start Date End Da te oxyCODONE (ROXICODONE) 10 mg tabletIndications:Pain Take 1 tablet (10 mg total) by mouth every 12 (twelve) hours Reorder 01/21/2024 01/29/2024 documented as of this encounter Care Teams Director Of Event Marketing Relationship Specialty Start Date End Date Haritha Tse NP [facility] [address] PCP - General Internal Medicine 10/30/22 documented as of this encounter
--- OUTSIDE RECORDS SUMMARY | 2024-03-24 18:53 | XMS_ITS | Encounter Summary ---
Author Organization [facility] Healthcare Address [address] [place] [address] Care Team Providers Care Pumpman Name Role Phone Haritha Tse NP Primary Care Provider Reason for Visit * Reason Comments Follow-up urinary symptoms Dysuria on going for a week Encounter Details Date Type Department Care Team (Late st Contact Info) Description 01/21/2024 2:00 PM CDT Office Visit [facility] Medical Group Internal Medicine at [place] [address] [place] [address] Haritha Tse NP [address] [place] [address] Anxiety (Primary Dx); BMI 45.0-49.9, adult (HCC); Morbid obesity (HCC); chronic right knee pain; Dysuria Social History Tobacco Use Types Packs/Day Years [...] AM CDT documented as of this encounter Last Filed Vital Signs Vital Sign Reading Time Taken Comments Blood Pressure 120/78 01/21/2024 2:07 PM CDT Pulse 63 01/21/2024 2:07 PM CDT Temperature 36.8 ??C (98.2 ??F) 01/21/2024 2:07 PM CD T Respiratory Rate 16 01/21/2024 2:07 PM CDT Oxygen Saturation 99% 01/21/2024 2:07 PM CDT Inhaled Oxygen Concentration - - Weight 133 kg (293 lb 3.2 oz) 01/21/2024 2:07 PM CDT Height - - Body Mass Index 45.92 10/08/2023 11:25 AM CDT documented in this encounter Patient Instructions * Patient Instructions* Haritha Tse NP - 01/21/2024 2:00 PM CDT Take medications as directed. Notify the office without improvement of symptoms. Follow-up in 4 months or sooner as needed. Contact the office with any questions or concerns documented in this encounter Ordered Prescriptions Prescription Sig Dispense Quantity Refills Last Filled Start Date End Date FLUoxetine (PROzac) 10 mg tablet/capsuleIndi cations:Anxiety with Depression Take 1 tablet/capsule (10 mg total) by mouth daily 90 capsule 1 01/21/2024 hydrOXYzine (VISTARIL) 25 mg capsuleIndications :Anxiety Take 2 capsules (50 mg total) by mouth 4 (four) times a day as needed for itching 90 capsule 1 01/21/2024 ciprofloxacin (CIPRO) 500 mg tabletIndications: Dysuria Take 1 tablet (500 mg total) by mouth 2 (two) times a day for 3 days 6 tablet 01/21/2024 oxyCODONE (ROXICODONE) 10 mg tabletIndications: Pain Take 1 tablet (10 mg total) by mouth every 12 (twelve) hours 60 tablet 01/21/2024 4 documented in this encounter Progress Notes * Haritha Tse, DRYCLEANER - 01/21/2024 2:00 PM CDT Images from the original note were not included. Subjective/Objective Patient ID: Tiarra Addison is a 53 y.o. female. Visit Date: 01/21/2024 Chief Complaint Follow-up and urinary symptoms (Dysuria on going for a week) HPI 63-year-old female in for routine follow-up. Does complain of dysuria for the last 2 weeks. Was in the hospital for rectal bleeding. Did not get transfused but hemoglobin was 7. Bleeding has stopped.States she is getting her strength back. Does take Percocet for chronic bilateral knee pain. She isin the process of trying to get bariatric weight loss surgery. If she loses the weight she will getbilateral knee replacements Review of Systems Constitutional: Negative for activity change, chills and fatigue. HENT: Negative for congestion, ear pain, nosebleeds, rhinorrhea and sinus pressure. Respiratory: Negative for cough and shortness of breath. Cardiovascular: Negative for chest pain and palpitations. Gastrointestinal: Negative for abdominal pain. Endocrine: Negative for cold intolerance. Genitourinary: Positive for dysuria. Negative for difficulty urinating and hematuria. Musculoskeletal: Positive for arthralgias and gait problem. Negative for back pain and myalgias. Neurological: Negative for dizziness, weakness and headaches. Psychiatric/Behavioral: Negative for agitation, confusion and sleep disturbance. Physical Exam Constitutional: Appearance: Normal appearance. She is well-developed. She is obese. HENT: Head: Normocephalic and atraumatic. Eyes: Pupils: Pupils are equal, round, and reactive to light. Cardiovascular: Rate and Rhythm: Normal rate and regular rhythm. Heart sounds: Normal heart sounds. Pulmonary: Effort: Pulmonary effort is normal. Breath sounds: Normal breath sounds. Abdominal: General: There is no distension. Musculoskeletal: General: No tenderness. Normal range of motion. Cervical back: Normal range of motion and neck supple. Right lower leg: Edema present. Skin: General: Skin is warm and dry. Capillary Refill: Capillary refill takes less than 2 seconds. Findings: No rash. Neurological: Mental Status: She is alert and oriented to person, place, and time. Psychiatric: Behavior: Behavior normal. Thought Content: Thought content normal. Assessment/Plan Diagnoses and all orders for this visit: Anxiety (F41.9) (Primary) Comments: increase Vistaril to 50 mg up to 4 times daily as needed for anxiety Orders: - hydrOXYzine (VISTARIL) 25 mg capsule; Take 2 capsules (50 mg total) by mouth 4 (four) times a dayas needed for itching - FLUoxetine (PROzac) 10 mg tablet/capsule; Take 1 tablet/capsule (10 mg total) by mouth daily BMI 45.0-49.9, adult (HCC) (Z68.42) Comments: diet and exercise on a regular basis as tolerated Assessment & Plan: Discussed the patient's BMI. The BMI is above average. BMI management plan is completed. BMI Follow-up includes: nutrition counseling, exercise counseling and education provided. Morbid obesity (HCC) (E66.01) Comments: monitor caloric intake Assessment & Plan: Discussed the patient's BMI. The BMI is above average. BMI management plan is completed. BMI Follow-up includes: nutrition counseling, exercise counseling and education provided. chronic right knee pain (M79.604) Comments: Percocet 10 mg twice daily as directed. Increase dosage. May take with additional Tylenol Orders: - oxyCODONE (ROXICODONE) 10 mg tablet; Take 1 tablet (10 mg total) by mouth every 12 (twelve) hours Dysuria (R30.0) Comments: Cipro twice daily for 3 days Orders: - ciprofloxacin (CIPRO) 500 mg tablet; Take 1 tablet (500 mg total) by mouth 2 (two) times a day for 3 days documented in this encounter Miscellaneous Notes * Assessment & Plan Note - Nicole Ferreira LPN - 01/21/2024 2:13 PM CDT Associated Problem(s): Morbid obesity (HCC) Discussed the patient's BMI. The BMI is above average. BMI management plan is completed. BMI Follow-up includes: nutrition counseling, exercise counseling and education provided. * Assessment & Plan Note - Nicole Ferreira LPN - 01/21/2024 2:13 PM CDT Associated Problem(s): Morbid obesity with BMI of 45.0-49.9, adult (HCC) Discussed the patient's BMI. The BMI is above average. BMI management plan is completed. BMI Follow-up includes: nutrition counseling, exercise counseling and education provided. documented in this encounter Plan of Treatment Not on file documented as of this encounter Visit Diagnoses Diagnosis Anxiety- Primary Anxiety state, unspecified BMI 45.0-49.9, adult (HCC) Morbid obesity (HCC) Morbid obesity chronic right knee pain Dysuria documented in this encounter Discontinued Medications Medication Sig Discontinue Reason Start Date End Da te lisinopriL (PRINIVIL,ZESTRIL) 10 mg tabletIndications:Essenti al hypertension Take 1 tablet (10 mg total) by mouth daily Therapy completed 03/28/2020 01/21/2024 FLUoxetine (PROzac) 10 mg tablet/capsuleIndications :Anxiety with Depression Take 1 tablet/capsule (10 mg total) by mouth daily Reorder 10/08/2023 01/21/2024 hydrOXYzine (VISTARIL) 25 mg capsuleIndications:Anxiet y TAKE 1 CAPSULE(25 MG) BY MOUTH THREE TIMES DAILY NEEDED FOR ANXIETY Reorder 12/11/2023 01/21/2024 oxyCODONE (ROXICODONE) 10 mg tabletIndications:Pain Take 1 tablet (10 mg total) by mouth every 12 (twelve) hours Reorder 01/10/2024 01/21/2024 documented as of this encounter Care Teams Pumpman Relationship Specialty Start Date End Date Haritha Tse NP [address] [address] PCP - General Internal Medicine 10/30/22 documented as of this encounter
--- OUTSIDE RECORDS SUMMARY | 2024-03-24 18:53 | XMS_ITS | Encounter Summary ---
Author Organization [facility] Healthcare Address [address] [place] [address] Care Team Providers Care Mexican Food Maker Hand Name Role Phone Haritha Tse NP Primary Care Provider [phone] Lynn Velásquez MA Unavailable Reason for Visit * Reason Comments Hospital Follow Up Encounter Details Date Type Department Care Team (Late st Contact Info) Description 03/16/2024 2:30 PM HEAD OF CONSERVATION Office Visit [facility] Medical Group Internal Medicine at [place] [address] [place] [address] Haritha Tse NP [address] [place] [address] Morbid obesity with BMI of 45.0-49.9, adult (HCC) (Primary Dx); Morbid obesity with BMI of 45.0-49.9, adult (HCC); Primary insomnia Social History Tobacco Use Types Packs/Day Years [...] Comments Blood Pressure 122/70 03/16/2024 2:44 PM HEAD OF CONSERVATION Pulse 99 03/16/2024 2:44 PM HEAD OF CONSERVATION Temperature 37.1 ??C (98.7 ??F) 03/16/2024 2:44 PM CS T Respiratory Rate - - Oxygen Saturation 100% 03/16/2024 2:44 PM HEAD OF CONSERVATION Inhaled Oxygen Concentration - - Weight 135.6 kg (299 lb) 03/16/2024 2:44 PM HEAD OF CONSERVATION Height 170.2 cm (5' 7 ) 03/16/2024 2:44 PM HEAD OF CONSERVATION Body Mass Index 46.83 03/16/2024 2:44 PM HEAD OF CONSERVATION documented in this encounter Ordered Prescriptions Prescription Sig Dispense Quantity Refills Last Filled Start Date End Date amitriptyline (ELAVIL) 25 mg tabletIndications: Primary insomnia Take 1 tablet (25 mg total) by mouth daily 90 tablet 1 03/16/2024 clobetasoL (TEMOVATE) 0.05 % creamIndications:S kin Inflammation Apply topically 2 (two) times a day 60 g 1 03/16/2024 documented in this encounter Miscellaneous Notes * Assessment & Plan Note - Kristin Singh MA - 03/16/2024 2:51 PM HEAD OF CONSERVATION Associated Problem(s): Morbid obesity with BMI of 45.0-49.9, adult (HCC) Discussed the patient's BMI. The BMI is above average. BMI management plan is completed. BMI Follow-up includes: nutrition counseling, exercise counseling and education provided. OF CONSERVATION documented in this encounter Plan of Treatment Not on file documented as of this encounter Visit Diagnoses Diagnosis Morbid obesity with BMI of 45.0-49.9, adult (HCC)- Primary Primary insomnia Persistent disorder of initiating or maintaining sleep documented in this encounter Discontinued Medications Medication Sig Discontinue Reason Start Date End Da te clobetasoL (TEMOVATE) 0.05 % creamIndications:Skin Inflammation Apply topically 2 (two) times a day Reorder 10/08/2023 03/16/2024 zolpidem (AMBIEN) 10 mg tabletIndications:Primar y insomnia Take 1 tablet (10 mg total) by mouth nightly as needed for sleep Alternate therapy 11/05/2023 03/16/2024 amitriptyline (ELAVIL) 25 mg tablet Take 1 tablet (25 mg total) by mouth daily Reorder 02/22/2022 03/16/2024 documented as of this encounter Historical Medications * This list may reflect changes made after this encounter. amiodarone (PACERONE) 100 mg tablet Take 1 tablet (100 mg total) by mouth daily amitriptyline (ELAVIL) 25 mg tablet Take 1 tablet (25 mg total) by mouth daily 02/22/2022 03/16/2024 added in this encounter Care Teams Mexican Food Maker Hand Relationship Specialty Start Date End Date Haritha Tse NP [address] [place] [address] PCP - General Internal Medicine 10/30/22 Lynn Velásquez MA [address] [place] [address] ACO Care Forestry Contractor 03/06/24 documented as of this encounter
--- OUTSIDE RECORDS SUMMARY | 2024-03-24 18:53 | XMS_ITS | Encounter Summary ---
Author Organization [facility] Healthcare Address [address] [place] [address] Care Team Providers Care Mechanist Name Role Phone Haritha Tse NP Primary Care Provider [phone] Lynn Velásquez MA Unavailable Reason for Visit * Reason Comments Successful Phone Call Encounter Details Date Type Department Care Team (Late st Contact Info) Description 03/17/2024 SUKHWINDER IP Outreach [facility] Accountable Care Organization [address] [place] [address] Lynn Velásquez MA [address] [place] [address] [address] [place] [id number] Social History Tobacco Use Types Packs/Day Years [...] AM CDT documented as of this encounter Progress Notes * Lynn Velásquez MA - 03/17/2024 3:35 PM CST Care Water Registrar contacted patient regarding recent inpatient discharge at [facility] on 03/03/24 for hemorrhage of anus and rectum . Patient was diagnosed as suffering from a heart attack. Patient states that she has been feeling better over the past week. She completed her SUKHWINDER appointment with PCP on 03/16/24 which she felt went very well. Her pain medication was refilled. Patient's legs continue to be swollen and painful, but she did discuss with PCP. She was advised to continue taking her furosemide regularly. Patient did receieve a list of counselors from her insurance company, and plans to start reaching out to providers after the holidays. She has been keeping herself busy, focusing on her kids, and making a vision board for next year. Care project manager/team coach will continue to follow upwith patient for outreach. Lynn Velásquez CMA ACO Care Water Registrar [facility] Medical Group OR SOFTWARE ANALYST documented in this encounter Plan of Treatment Not on file documented as of this encounter Visit Diagnoses Not on filedocumented in this encounter Care Teams Mechanist Relationship Specialty Start Date End Date Haritha Tse NP [address] [place] [address] PCP - General Internal Medicine 10/30/22 Lynn Velásquez MA [address] [place] [address] ACO Care Water Registrar 03/06/24 documented as of this encounter
--- OUTSIDE RECORDS SUMMARY | 2024-03-24 18:53 | XMS_ITS | Encounter Summary ---
Author Organization [facility] Healthcare Address [facility] [place] [place] [address] Care Team Providers Care Residential Monitor Name Role Phone Haritha Tse NP Primary Care Provider [phone] Lynn Velásquez MA Unavailable Encounter Details Date Type Department Care Team (Late st Contact Info) Description 02/28/2024 Orders Only [facility] Health Information Management [address] [place] [address] Haritha Tse, GARRETT [address] [place] [address] Social History Tobacco Use Types Packs/Day Years [...] AM CDT documented as of this encounter Plan of Treatment Not on file documented as of this encounter Procedures Procedure Name Priority Date/Time Associated Diagnosis Comments SCAN - RADIOLOGY/IMAGING 02/28/2024 documented in this encounter Results * SCAN - RADIOLOGY/IMAGING (02/28/2024) Anatomical Region Laterality Modality Other us Haritha Tse NP Final Result documented in this encounter Visit Diagnoses Not on filedocumented in this encounter Care Teams Residential Monitor Relationship Specialty Start Date End Date Haritha Tse, HEAD ATHLETIC TRAINER [address] [place] [address] PCP - General Internal Medicine 10/30/22 Lynn Velásquez MA [address] [place] [address] ACO Care Electrician Locomotive 03/06/24 documented as of this encounter
--- OUTSIDE RECORDS SUMMARY | 2024-03-24 18:53 | XMS_ITS | Encounter Summary ---
Author Organization [facility] Healthcare Address [address] [place] [address] Care Team Providers Care Pigment Supplier Name Role Phone Haritha Tse NP Primary Care Provider [phone] Lynn Velásquez MA Unavailable Reason for Visit * Reason Comments Unsuccessful Phone Call 2 03/01-03/03 [facility] Successful Phone Call Encounter Details Date Type Department Care Team (Late st Contact Info) Description 03/09/2024 SUKHWINDER IP Outreach [facility] Accountable Care Organization [address] [place] [address] Lynn Velásquez MA [address] [place] [address] [address] [place] [address] Social History Tobacco Use Types Packs/Day Years [...] Progress Notes * Lynn Velásquez MA - 03/09/2024 1:03 PM CST Care Motor Assembly Supervisor contacted patient regarding recent inpatient discharge at [facility] on 03/03/24 for hemorrhage of anus and rectum . Patient was diagnosed as suffering from a heart attack. Patient status post-discharge: Q1 - Better Status Details: - Patient states that she went to the ED because she was feeling faint and had her son take her. Since being discharged she has not had anymore weakness since discharge. No more rectal bleeding since discharge. Patient reports that her legs are very swollen and painful. She did receive a refill of oxycodone from PCP office. Patient expressed many concerns about her mental health and the state of her family. She is extremely upset with sister in law. She contacted her insurance company today for a list of counselors. She is going to go through the list this week and follow up. Discharge Instructions Reviewed - No Details: - Unable to contact patient. Left voicemail with contact information. Medication Reconciliation Completed: - Yes Details: - Appointment status: - Care Motor Assembly Supervisor scheduled Appointment Date: 03/16/2024 Patient educated about same day sick appts at PCP office and s/s to report to physician. Pt verbalized understanding of information presented. Care Motor Assembly Supervisor to follow up with patient for continued outreach. Lynn Velásquez CMA ACO Care Motor Assembly Supervisor [facility] Medical Group [employer] documented in this encounter Plan of Treatment Not on file documented as of this encounter Visit Diagnoses Not on filedocumented in this encounter Historical Medications * This list may reflect changes made after this encounter. Xarelto 10 mg tablet TAKE 1 TABLET BY MOUTH EVERY EVENING. START ON 03/05/24 03/04/2024 added in this encounter Care Teams Pigment Supplier Relationship Specialty Start Date End Date Haritha Tse NP [address] [place] [address] PCP - General Internal Medicine 10/30/22 Lynn Velásquez MA [address] [place] [address] [address] [place] [address] ACO Care Motor Assembly Supervisor 03/06/24 documented as of this encounter
--- OUTSIDE RECORDS SUMMARY | 2024-03-24 18:53 | XMS_ITS | Encounter Summary ---
Author Organization [facility] Healthcare Address [address] [place] [address] Care Team Providers Care Mason Liner Name Role Phone Haritha sTe NP Primary Care Provider Reason for Visit * Reason Onset Date Comments Medical Question/Miscellaneous 01/06/2024 Encounter Details Date Type Department Care Team (Late st Contact Info) Description 01/06/2024 Telephone [facility] Medical Group Internal Medicine at [place] [address] [place] [address] Haritha Tse NP [address] [place] [address] Medical Question/Miscellaneous Social History Tobacco Use Types Packs/Day Years [...] AM CDT documented as of this encounter Miscellaneous Notes * Telephone Encounter - Coy Tobin - 01/06/2024 8:10 AM CDT Medical Question/Miscellaneous Caller???s Concern: Patient called to reschedule appt for today.She is going to the ER for bleedingissue. She did reschedule Does message need to be routed? Yes-FYI Only documented in this encounter Plan of Treatment Not on file documented as of this encounter Visit Diagnoses Not on filedocumented in this encounter Care Teams Mason Liner Relationship Specialty Start Date End Date Haritha Tse NP [address] [facility] [address] [facility] [address] [place] [address] PCP - General Internal Medicine 10/30/22 documented as of this encounter
--- OUTSIDE RECORDS SUMMARY | 2024-03-24 18:53 | XMS_ITS | Data Portability ---
Author Organization [facility] Forrest Address [address] [place] [address] Care Team Providers Care Yard Hostler Name Role Phone OTIS SIERRA Primary Care Provider Assessment Encounter Date Assessment Date Assessment LastModified by Organization Details LastModified Time 05/06/2019 05/06/2019 trazadone. chair shower. nutrition. Not available 05/06/2019 15:24:01 Plan of Treatment Reminders Order Date Submit Date Provider Last Modified By Organization Details Last Modified Time Details Appointments None recorded. Lab CBC w/ auto diff 2019 020 [facility], [address] [facility], [address], [place], [address], 0 07:09:38 Referral orthopedic referral 2019 020 [facility], [address] [place] [address], [address], [address], 0 12:25:47 Procedures None recorded. Surgeries None recorded. Imaging None recorded. Medication Orders zolpidem 5 mg tablet 2019 020 [id number], [address] [facility], [place], [address], 0 17:18:02 hydrocodon e 7.5 mg-acetami nophen 325 mg tablet 2019 020 [id number], [address], [place], [place], [id number], 0 13:07:47 Patient TargetsNo targets recorded. Patient InstructionsNo instructions recorded. Reason for Referral Orthopedic Referral for Bila teral knee pain Referring Physician: Otis Sierra, Slip Dumper, Encounter Date: 05/20/2019 Results Created Date Observation Date Name Description Value Unit Range Abnormal Flag Note LastModifiedBy Organization Detail LastModifiedTime 04/29/1904/30/2019 CBC w/ auto diff WBC 8.2 x10e3 /uL 3.4-10 .8 Not Available [facility] ([facility] [address] [place], [address], 04/30/2019 08:17:38 04/29/1904/30/2019 CBC w/ auto diff RBC 2.23 x10e6 /uL 3.77-5 .28 alert low Not Available [facility] ([facility] [address] [place], [address], 04/30/2019 08:17:38 04/29/1904/30/2019 CBC w/ auto diff hemoglobin 6.1 g/dL 11.1-1 5.9 alert low Not Available [facility] ([facility] [address] [place], [address], 04/30/2019 08:17:38 04/29/19 20 04/30/2019 CBC w/ auto diff hematocrit 19.6 % 34.0-4 6.6 below low normal Not Available [facility] ([facility] [address] [place], [address], 04/30/2019 08:17:38 04/29/1904/30/2019 CBC w/ auto diff MCV 88 fL 79-97 Not Available [facility] ([facility] [address] [place], [address], 04/30/2019 08:17:38 04/29/1904/30/2019 CBC w/ auto diff MCH 27.4 pg 26.6-3 3.0 Not Available [facility] ([facility] [address] [facility], [place], [address], 04/30/2019 08:17:38 04/29/19 20 04/30/2019 CBC w/ auto diff MCHC 31.1 g/dL 31.5-3 5.7 below low normal Not Available [facility] ([facility] [address] [facility], [place], [address], 04/30/2019 08:17:38 04/29/19 20 04/30/2019 CBC w/ auto diff RDW 19.0 % 11.7-1 5.4 above high normal Not Available [facility] ([facility] [address] [facility], [place], [address], 04/30/2019 08:17:38 04/29/19 20 04/30/2019 CBC w/ auto diff platelets 332 x10e3 /uL 150-45 0 Not Available [facility] ([facility] [address] [facility], [place], [address], 04/30/2019 08:17:38 04/29/19 20 04/30/2019 CBC w/ auto diff neutrophils 74 % not estab. Not Available [facility] ([facility] [address] [facility], [place], [address], 04/30/2019 08:17:38 04/29/19 20 04/30/2019 CBC w/ auto diff lymphs 17 % not estab. Not Available [facility] ([facility] [address] [facility], [place], [address], 04/30/2019 08:17:38 04/29/19 20 04/30/2019 CBC w/ auto diff monocytes 6 % not estab. Not Available [facility] ([facility] [address] [facility], [place], [address], 04/30/2019 08:17:38 04/29/1904/30/2019 CBC w/ auto diff eos 3 % not estab. Not Available [facility] ([facility] [address] [place], [address], 04/30/2019 08:17:38 04/29/19 20 04/30/2019 CBC w/ auto diff basos 0 % not estab. Not Available [facility] ([facility] [address] [place], [address], 04/30/2019 08:17:38 04/29/19 20 04/30/2019 CBC w/ auto diff immature cells OPERATIONS OFFICER Not Available [facility] ([facility] [address] [place], [address], 04/30/2019 08:17:38 04/29/19 20 04/30/2019 CBC w/ auto diff neutrophils (absolute) 6.0 x10e3 /uL 1.4-7. 0 Not Available [facility] ([facility] [place] [facility] [address] [place], [address], 04/30/2019 08:17:38 04/29/19 20 04/30/2019 CBC w/ auto diff lymphs (absolute) 1.4 x10e3 /uL 0.7-3. 1 Not Available [facility] ([facility] [address] [place], [address], 04/30/2019 08:17:38 04/29/1904/30/2019 CBC w/ auto diff monocytes(ab solute) 0.5 x10e3 /uL 0.1-0. 9 Not Available [facility] ([facility] [place] [facility] [address] [place], [address], 04/30/2019 08:17:38 04/29/19 20 04/30/2019 CBC w/ auto diff eos (absolute) 0.2 x10e3 /uL 0.0-0. 4 Not Available [facility] ([facility] [address] [place], [address], 04/30/2019 08:17:38 04/29/19 20 04/30/2019 CBC w/ auto diff baso (absolute) 0.0 x10e3 /uL 0.0-0. 2 Not Available [facility] ([facility] [place] [facility] [address] [facility], [place], [address], 04/30/2019 08:17:38 04/29/19 20 04/30/2019 CBC w/ auto diff immature granulocytes 0 % not estab. Not Available [facility] ([facility] [place] [facility] [address] [facility], [place], [address], 04/30/2019 08:17:38 04/29/1904/30/2019 CBC w/ auto diff immature grans (abs) 0.0 x10e3 /uL 0.0-0. 1 Not Available [facility] ([facility] [place] [facility] [address] [place], [address], 04/30/2019 08:17:38 04/29/19 20 04/30/2019 CBC w/ auto diff NRBC OPERATIONS OFFICER Not Available [facility] ([facility] [place] [facility] [address] [place], [address], 04/30/2019 08:17:38 04/29/19 20 04/30/2019 CBC w/ auto diff hematology comments: OPERATIONS OFFICER Not Available [facility] ([facility] [place] [facility] [address] [facility], [place], [address], 04/30/2019 08:17:38 04/29/1904/30/2019 iron + total iron- shabana ng capac ity (TIBC ), serum iron bind.cap.(TI BC) 287 ug/dL 250-45 0 Not Available [facility] ([facility] [place] [facility] [address] [place], [address], 04/30/2019 08:17:39 04/29/19 20 04/30/2019 iron + total iron- shabana ng capac ity (TIBC ), serum UIBC 249 ug/dL 131-42 5 Not Available [facility] ([facility] [place] [facility] [address] [place], [address], 04/30/2019 08:17:39 04/29/1904/30/2019 iron + total iron- shabana ng capac ity (TIBC ), serum iron 38 ug/dL 27-159 Not Available [facility] ([facility] [place] [facility] [address] [place], [address], 04/30/2019 08:17:39 04/29/19 20 04/30/2019 iron + total iron- shabana ng capac ity (TIBC ), serum iron saturation 13 % 15-55 below low normal Not Available [facility] ([facility] [place] [facility] [address] [facility], [place], [address], 04/30/2019 08:17:39 04/29/1904/30/2019 vitam in B12 + folat e, serum or blood vitamin B12 224 pg/mL 232-12 45 below low normal Not Available [facility] ([facility] [place] [facility] [address] [facility], [place], [address], 04/30/2019 08:17:39 04/29/1904/30/2019 vitam in B12 + folat e, serum or blood folate (folic acid), serum 4.2 NG/mL >3.0 A serum folat e gina ntrat ion of less than 3.1 ng/mL is consi dered to repre sent clini rubi defic iency . Not Available [facility] ([facility] [place] [facility] [address] [facility], [place], [address], 04/30/2019 08:17:39 05/20/1905/21/2019 CBC w/ auto diff WBC 6.5 x10e3 /uL 3.4-10 .8 Not Available [facility] ([facility] [address] [place], [address], 05/21/2019 07:09:38 05/20/1905/21/2019 CBC w/ auto diff RBC 3.55 x10e6 /uL 3.77-5 .28 below low normal Not Available [facility] ([facility] [address] [place], [address], 05/21/2019 07:09:38 05/20/19 20 05/21/2019 CBC w/ auto diff hemoglobin 9.4 g/dL 11.1-1 5.9 below low normal Not Available [facility] ([facility] [place] [facility] [address] [place], [address], 05/21/2019 07:09:38 05/20/19 20 05/21/2019 CBC w/ auto diff hematocrit 31.2 % 34.0-4 6.6 below low normal Not Available [facility] ([facility] [place] [facility] [address] [place], [address], 05/21/2019 07:09:38 05/20/19 20 05/21/2019 CBC w/ auto diff MCV 88 fL 79-97 Not Available [facility] ([facility] [address] [place], [address], 05/21/2019 07:09:38 05/20/19 20 05/21/2019 CBC w/ auto diff MCH 26.5 pg 26.6-3 3.0 below low normal Not Available [facility] ([facility] [place] [facility] [address] [place], [address], 05/21/2019 07:09:38 05/20/19 20 05/21/2019 CBC w/ auto diff MCHC 30.1 g/dL 31.5-3 5.7 below low normal Not Available [facility] ([facility] [place] [facility] [address] [place], [address], 05/21/2019 07:09:38 05/20/19 20 05/21/2019 CBC w/ auto diff RDW 17.0 % 11.7-1 5.4 above high normal Not Available [facility] ([facility] [address] [facility] [place], [address], 05/21/2019 07:09:38 05/20/19 20 05/21/2019 CBC w/ auto diff platelets 213 x10e3 /uL 150-45 0 Not Available [facility] ([facility] [place] [facility] [address] [facility], [place], [address], 05/21/2019 07:09:38 05/20/19 20 05/21/2019 CBC w/ auto diff neutrophils 71 % not estab. Not Available [facility] ([facility] [place] [facility] [address] [facility], [place], [address], 05/21/2019 07:09:38 05/20/19 20 05/21/2019 CBC w/ auto diff lymphs 17 % not estab. Not Available [facility] ([facility] [place] [facility] [address] [facility], [place], [address], 05/21/2019 07:09:38 05/20/19 20 05/21/2019 CBC w/ auto diff monocytes 6 % not estab. Not Available [facility] ([facility] [place] [facility] [address] [facility], [place], [address], 05/21/2019 07:09:38 05/20/19 20 05/21/2019 CBC w/ auto diff eos 6 % not estab. Not Available [facility] ([facility] [place] [facility] [address] [facility], [place], [address], 05/21/2019 07:09:38 05/20/19 20 05/21/2019 CBC w/ auto diff basos 0 % not estab. Not Available [facility] ([facility] [place] [facility] [address] [facility], [place], [address], 05/21/2019 07:09:38 05/20/19 20 05/21/2019 CBC w/ auto diff immature cells OPERATIONS OFFICER Not Available [facility] ([facility] [place] [facility] [address] [facility], [place], [address], 05/21/2019 07:09:38 05/20/19 20 05/21/2019 CBC w/ auto diff neutrophils (absolute) 4.6 x10e3 /uL 1.4-7. 0 Not Available [facility] ([facility] [place] [facility] [address] [facility], [place], [address], 05/21/2019 07:09:38 05/20/19 20 05/21/2019 CBC w/ auto diff lymphs (absolute) 1.1 x10e3 /uL 0.7-3. 1 Not Available [facility] ([facility] [place] [facility] [address] [place], [address], 05/21/2019 07:09:38 05/20/1905/21/2019 CBC w/ auto diff monocytes(ab solute) 0.4 x10e3 /uL 0.1-0. 9 Not Available [facility] ([facility] [place] [facility] [address] [place], [address], 05/21/2019 07:09:38 05/20/1905/21/2019 CBC w/ auto diff eos (absolute) 0.4 x10e3 /uL 0.0-0. 4 Not Available [facility] ([facility] [place] [facility] [address] [place], [address], 05/21/2019 07:09:38 05/20/19 20 05/21/2019 CBC w/ auto diff baso (absolute) 0.0 x10e3 /uL 0.0-0. 2 Not Available [facility] ([facility] [place] [facility] [address] [place], [address], 05/21/2019 07:09:38 05/20/1905/21/2019 CBC w/ auto diff immature granulocytes 0 % not estab. Not Available [facility] ([facility] [place] [facility] [address] [place], [address], 05/21/2019 07:09:38 05/20/1905/21/2019 CBC w/ auto diff immature grans (abs) 0.0 x10e3 /uL 0.0-0. 1 Not Available [facility] ([facility] [place] [facility] [address] [facility], [place], [address], 05/21/2019 07:09:38 05/20/19 20 05/21/2019 CBC w/ auto diff NRBC OPERATIONS OFFICER Not Available [facility] ([facility] [place] [facility] [address] [facility], [place], [address], 05/21/2019 07:09:38 05/20/19 20 05/21/2019 CBC w/ auto diff hematology comments: OPERATIONS OFFICER Not Available [facility] ([facility] [place] [facility] [address] [facility], [place], [address], 05/21/2019 07:09:38 04/20/19 20 04/20/2019 CT, abdom en + pelvi s, w/o contr ast No observ ation record ed. [address] , [place], [address], 05/04/2019 20:22:00 04/20/19 20 04/20/2019 CT, abdom en + pelvi s, w/o contr ast No observ ation record ed. [address] , [place], [address], 05/04/2019 20:39:35 04/21/19 20 04/21/2019 CT, abdom en + pelvi s, w/o contr ast No observ ation record ed. [address] , [place], [address], 05/04/2019 20:39:49 04/21/19 20 04/21/2019 US, duple x, abdom en No observ ation record ed. [address] , [place], [address], 04/22/2019 09:47:21 08/21/19 20 08/18/2019 XR, chest , 2 view No observ ation record ed. Not Available 2019 16:24:57 08/21/19 20 08/18/2019 US, duple x, venou s, upper extre mity No observ ation record ed. fox Not Available 2019 16:24:57 12/18/19 20 12/09/2019 imagi ng/di agnos tic resul t No observ ation record ed. [facility] Not Available 2019 17:42:34 04/06/20 20 04/06/2020 XR, chest No observ ation record ed. [address], [place], [address], 04/11/2020 13:55:25 Result Notes None recorded. Problems Name Problem SNOMED Code Status Onset Date Resolution Date Notes Provider Name and Address Organization Details Recorded Time Essential hypertens ion 52314096 Active 2018 LOREN [place], [place] - [facility] 0 14:54:47 Obesity 622157978 Active 2018 [place] [facility] 0 14:54:47 Chronic deep venous thrombosi s of right lower extremity 382843004111 102 Active 2018 twice with lymphedem a [place] [facility] 0 14:54:47 History of pulmonary embolus 408392907 Active 2018 [place] [facility] 0 14:54:47 Deficienc y anemias 116006732 Active 2018 transfuse d recently. [place] [facility] 0 14:54:47 Hypothyro idism 76267025 Active 2019 [place] [facility] 0 14:54:48 Lymphedem a 291682077 Active 2018 [place] [facility] 0 14:54:47 Hypertens lalita disorder 96828504 Active 2017 [place] [facility] 0 14:54:47 Melena due to gastroint estinal hemorrhag e 510561857 Active 2019 Lotus Bojorquez [place] [facility] 0 14:54:47 Alcohol abuse 40545214 Active 2017 [place] [facility] 0 14:54:47 History of deep vein thrombosi s 456061323 Active 2017 [place] [facility] 0 14:54:47 Impaired cognition 067452933 Active 2017 LOREN Gutierrez, [place] [facility] 0 14:54:47 Polysubst ance abuse 553822154 Active 2017 [place] [facility] 0 14:54:47 Dementia associate d with alcoholis m 267131 Active 2017 [place] [facility] 0 14:54:47 Congestiv e heart failure 15642897 Active 2019 [place] [facility] 0 14:54:47 Acute upper gastroint estinal hemorrhag e 56193347 Active 2019 [place] [facility] 0 14:54:47 Anemia 088226531 Active 2017 [place] [facility] 0 14:54:48 Chronic acquired lymphedem a 19356568 Active 2017 [place] [facility] 0 14:54:48 Acute posthemor rhagic anemia 376328377 Active 2019 [place] [facility] 0 14:54:48 Problem Notes None recorded. Procedures Surgical History Date Name Laterality Status Provider Name and Address Organization Details Recorded Time 08/28/19 endometrial ablation completed Lotus Bojorquez [place] - [facility] 09/18/2019 13:48:07 08/20/19 20 dilation and curettage of uterus completed Lotus Bojorquez [facility] 08/28/2019 11:53:17 08/20/19 20 hysteroscopy completed Lotus Bojorquez MA [facility] 08/28/2019 11:53:39 Caesarean Section completed Lotusrebekah Bojorquez [facility] 08/17/2019 14:58:03 Caesarean Section completed Lotus Bojorquez [facility] 08/17/2019 14:58:03 Caesarean Section completed Lotus Bojorquez [facility] 08/17/2019 14:58:04 Gastric Bypass completed Lotusrebekah Bojorquez [facility] 08/17/2019 14:58:13 Imaging Results Imaging Date Name Status LastModified by [facility] Details LastModified Time 04/20/2019 CT, abdomen + pelvis, w/o contrast completed [address] [place], [address], 05/04/2019 20:22:00 04/20/2019 CT, abdomen + pelvis, w/o contrast completed [address] [place], [address], 05/04/2019 20:39:35 04/21/2019 CT, abdomen + pelvis, w/o contrast completed [address] [place], [address], 05/04/2019 20:39:49 04/21/2019 US, duplex, abdomen completed [address] [place], [address], 04/22/2019 09:47:21 08/18/2019 XR, chest, 2 view completed Information not available 08/21/2019 16:24:57 08/18/2019 US, duplex, venous, upper extremity completed Information not available 08/21/2019 16:24:57 12/09/2019 imaging/diagno stic result completed [facility] Information not available 12/18/2019 17:42:34 04/06/2020 XR, chest completed [facility] [address] [facility] [address], [place], [address], 04/11/2020 13:55:25 Procedure Notes None recorded. Medical Equipment None Reported. Allergies No known drug allergies Medications Name Sig Start Date Stop Date Status Note LastModified by Organization Details LastModified Time furosemide 40 mg tablet Take 1 tablet every day by oral route. active Not Available Not Available No t Available albuterol sulfate 2.5 mg/3 mL (0.083 %) solution for nebulizatio n 03/12 completed Not Available Not Available Not Available azithromyci n 250 mg tablet 07/29 completed Not Available Not Available Not Available fluconazole 150 mg tablet active Not Available Not Available Not Available hydrocodone 5 mg-acetamin ophen 325 mg tablet 03/12 completed Not Available Not Available Not Available prednisone 20 mg tablet 03/12 completed Not Available Not Available Not Available potassium chloride ER 10 mEq tablet,exte nded release active Not Available Not Available Not Available metronidazo le 500 mg tablet take four tabs po at one time for treatment of trichomon as 03/12 completed Not Available Not Available Not Available amlodipine 5 mg tablet Take 1 tablet every day by oral route for 30 days. active Not Available Not Available No t Available acyclovir 400 mg tablet 03/12 completed Not Available Not Available Not Available omeprazole 40 mg capsule,del ayed release TAKE 1 CAPSULE(S ) EVERY DAY BY ORAL ROUTE FOR 60 DAYS. 2019 active Not Available Not Available Not Avai lable tramadol 50 mg tablet Take 1 tablet every 6 hours by oral route as needed. 05/06 completed Not Available Not Available Not Available acetaminoph en 500 mg tablet 03/12 completed Not Available Not Available Not Available oxycodone-a cetaminophe n 5 mg-325 mg tablet Take 1 tablet every 8 hours by oral route as needed. 03/16 completed Not Available Not Available Not Available famotidine 20 mg tablet active Not Available Not Available Not Available lorazepam 0.5 mg tablet Take 1 tablet twice a day by oral route as needed. 03/12 completed Not Available Not Available Not Available chlordiazep oxide 25 mg capsule 03/12 completed Not Available Not Available Not Available baclofen 10 mg tablet 03/12 completed Not Available Not Available Not Available benzonatate 100 mg capsule 03/12 completed Not Available Not Available Not Available doxycycline monohydrate 100 mg capsule active Not Available Not Available Not Available levothyroxi ne 50 mcg tablet Take 1 tablet every day by oral route before meals for 30 days. active Not Available Not Available No t Available hydrocodone 7.5 mg-acetamin ophen 325 mg tablet Take 1 tablet every 6-8 hours by oral route for 7 days. active Not Available Not Available No t Available cyanocobala min (vit B-12) 1,000 mcg/mL injection solution active Not Available Not Available Not Available ferrous sulfate 325 mg (65 mg iron) tablet ONE TABLET THREE TIMES PER DAY active Not Available Not Available No t Available neomycin-po lymyxin-dex ameth 3.5 mg/mL-10,00 0 unit/mL-0.1 % eye drops active Not Available Not Available Not Available lisinopril 10 mg tablet Take 1 tablet every day by oral route. 10/18 completed Not Available Not Available Not Available progesteron e micronized 200 mg capsule 03/12 completed Not Available Not Available Not Available gabapentin 300 mg capsule active Not Available Not Available Not Available folic acid 1 mg tablet active Not Available Not Available Not Available clindamycin 2 % vaginal cream active Not Available Not Available Not Available hydrochloro thiazide 25 mg tablet Take 1 tablet every day by oral route. 10/18 completed Not Available Not Available Not Available zolpidem 5 mg tablet TAKE 1 TABLET BY MOUTH EVERY DAY 2019 active Not Available Not Available Not Avai lable metoprolol succinate ER 25 mg tablet,exte nded release 24 hr TAKE 1 TABLET BY MOUTH EVERY DAY active Not Available Not Available No t Available ibuprofen 600 mg tablet 03/12 completed Not Available Not Available Not Available oxycodone-a cetaminophe n 7.5 mg-325 mg tablet 03/12 completed Not Available Not Available Not Available fluoxetine 20 mg capsule 03/12 completed Not Available Not Available Not Available doxycycline hyclate 100 mg tablet Take 1 tablet twice a day by oral route for 10 days. 10/18 completed Not Available Not Available Not Available naproxen 500 mg tablet 03/12 completed Not Available Not Available Not Available amoxicillin 875 mg-potassiu m clavulanate 125 mg tablet 07/29 completed Not Available Not Available Not Available tobramycin 0.3 %-dexametha sone 0.1 % eye drops,suspe nsion 03/12 completed Not Available Not Available Not Available neomycin 3.5 mg/g-polymy abril B 10,000 unit/g-dexa meth 0.1 % eye oint 03/12 completed Not Available Not Available Not Available escitalopra m 20 mg tablet active Not Available Not Available Not Available potassium chloride ER 10 mEq tablet,exte nded release(par t/cryst) Take 1 tablet every day by oral route. 03/12 completed Not Available Not Available Not Available metoprolol tartrate 25 mg tablet 03/12 completed Not Available Not Available Not Available ProAir HFA 90 mcg/actuati on aerosol inhaler 03/12 completed Not Available Not Available Not Available buprenorphi ne 10 mcg/hour weekly transdermal patch active Not Available Not Available Not Available Xarelto 15 mg tablet active Not Available Not Available No t Available Xarelto 20 mg tablet Take 1 tablet every day by oral route. active Not Available Not Available No t Available Virtussin AC 10 mg-100 mg/5 mL oral liquid 03/12 completed Not Available Not Available Not Available Xarelto DVT-PE Treatment 30-Day Starter 15 mg(42)-20 mg(9) tablet pack 08/16 completed Not Available Not Available Not Available Vitals Date Recorded Body height Body mass index (BMI) Body weight Body temperature Systolic blood pressure Diastolic blood pressure Provider Name and Address Organization Details Last Updated DateTime 0 170.18 cm 47.3 kg/m2 453128. 3 g 98.6 [degF] 110 mm[Hg] 68 mm[Hg] Elizabeth Diallo [place] - [facility] 0 15:13:21 Date Recorded Body height Body mass index (BMI) Body weight Body temperature Provider Name and Address Organization Details Last Updated DateTime 05/20/2019 170.18 cm 47.8 kg/m2 130373.77 g 98.6 [degF] Elizabeth Dial[place] - [facility] 05/20/2019 15:57:29 Date Recorded Systolic blood pressure Diastolic blood pressure Provider Name and Address Organization Details Last Updated DateTime 05/20/2019 120 mm[Hg] 80 mm[Hg] DENNISE SMITH Attn: Accounting,[address] [facility], [place], [address], [facility] 05/20/2019 16:50:30 Date Recorded Body height Provider Name an d Address Organization Details Last Updated DateTime 08/17/2019 170.18 cm Lotus Bojorquez MA [facility] 08/17/2019 14:54:18 Date Recorded Body height Provider Name an d Address Organization Details Last Updated DateTime 10/19/2019 170.18 cm Lotus Bojorquez MA [facility] 10/19/2019 10:04:07 Social History Question Answer Notes LastModified by Organizat ion Details LastModified Time Tobacco Smoking Status Never Smoker Eileen Pacheco [place] null, [facility] 07/29/2018 11:22:16 What Is Your Level Of Alcohol Consumption? Heavy Information not available 07/29/2018 Is Blood Transfusion Acceptable In An Emergency? Yes Information not available 07/29/2018 What Is Your Level Of Caffeine Consumption? Occasional Information not available 07/29/2018 How Much Tobacco Do You Chew? None Information not available 07/29/2018 Are You Currently Employed? No Information not available 07/29/2018 What Type Of Diet Are You Following? REGULAR Information not available 07/29/2018 Which Illicit Or Recreational Drugs Have You Used? None Information not available 10/19/2019 Do You Or Have You Ever Used E-cigarettes Or Vape? Never Used Electronic Cigarettes Information not available 08/17/2019 Education 4 Year College Informatio n not available 07/29/2018 What Is Your Occupation? [employer] Information not available 07/29/2018 Live Alone Or With Others? With Others Information not available 07/29/2018 What Was The Date Of Your Most Recent Tobacco Screening? 10/19/2019 Information not available 10/19/2019 How Many Children Do You Have? 3 Information not available 07/29/2018 Performs Monthly Self-breast Exam? Yes Information no t available 07/29/2018 Do You Use Protection During Sex? Usually Information not available 07/29/2018 What Is Your Relationship Status? Information not available 07/29/2018 Seat Belts Used Routinely Yes Information not available 07/29/2018 Are You Sexually Active? Yes Information not available 07/29/2018 Do You Or Have You Ever Used Smokeless Tobacco? Never Used Smokeless Tobacco Information not available 08/17/2019 How Much Tobacco Do You Smoke? No Information not available 08/17/2019 General Stress Level High Information not available 07/29/2018 Do You Use Sunscreen Routinely? No Information not available 07/29/2018 On What Date Was Tobacco Cessation Counseling Provided? 08/24/2019 Information not available 08/24/2019 How Many Years Have You Smoked Tobacco? 0 Information not available 08/17/2019 Sex: Unknown Functional Status Question Answer Note LastModified by Organizat ion Details LastModified Time What is your exercise level? Occasional Information not available 07/29/2018 Mental Status None recorded. Family History Relationship Description Onset Age of this Age Resolved Age Notes LastModified by Organization Details LastModified Time Father No current problems or disability [email or web address] Not available 08/06 14:57:21 Mother No current problems or disability [email or web address] Not available 08/06 14:57:21 Medical History Condition Response Coronary Artery Disease N Other Y High Blood Pressure Y Atrial Fibrillation N Kidney or Bladder Problems N Thyroid Problems N GI Problems N Depression N COPD N Blood Clots Y Skin Problems N Anemia N Heart Attack ([place]) N Anxiety Disorder N Diabetes N Muscle, Joint, or Bone Problems N Seizures/Epilepsy N Acid Reflux (GERD) N Cancer N Stroke N Asthma N Allergies N High Cholesterol N Hepatitis N Liver Disease N Headaches N Heart Failure N Osteoporosis N Gynecological History Statement/Question Response Abnormal Pap N Flow Heavy Date of LMP On BCP's at Conception? N STIs/STDs Y HPV Vaccine N Duration of Flow (days) 7 Most Recent Mammogram Age at Menarche 12 Current Control Method Ablation Age at First Child 13 Sexually Active? Y Menses Monthly No Date of Last Pap Smear Sexual Problems? N LMP Definite Obstetrics History GPAL:G 4 P 3 0 1 3 Type Value Multiple Births 0 Full Term 3 Induced 1 Spontaneous 0 Premature 0 Living 3 Ectopics 0 Total 4 Past Encounters Encounter ID Performer Location Encounter Start Date Encounter Closed Date Diagnosis/Indication Diagnosis SNOMED-CT Code Diagnosis ICD10 Code [id number] DO Marcelo Gonzalez [facility] cayetano (DATABASE DESIGNER) [address] [place] [address] 07/29/2018 10:58:23 07/30/2018 09:09:52 Gynecologic examination 28132759 Z01.419 Venereal d isease screening 941335864 Z11.3 [id number] Gerard Sutton MD [facility] (Adult[facility] m Med) [address] [place] [address] 07/31/2018 09:50:08 07/31/2018 11:18:16 Deficiency anemias 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 D53.9 History of pulmonary embolus 102931358 Z86.711 Chronic de ep venous thrombosis of right lower extremity 0931809543 33050 I82.501 Obesity 297847279 E66.9 Essential hypertension 04833720 I10 [id number] Gerard Sutton MD [facility] (Adult[facility]) [address] [place] [address] 10/10/2018 11:48:21 10/10/2018 12:43:15 Deficiency anemias 491772780 D53.9 History of pulmonary embolus 647519307 Z86.711 Obesity 656294272 E66.9 Essential hypertension 07601496 I10 Anxiety disorder 3845878 06 F41.9 Lymphedema 321273090 I89 .0 [id number] Gerard Sutton MD [facility] (Adult[facility]Fa [facility]) [address] [place] [address] 01/20/2019 10:41:52 01/20/2019 11:45:07 Deficiency anemias 813760495 D53.9 History of pulmonary embolus 633693051 Z86.711 Chronic de ep venous thrombosis of right lower extremity 6974176039 84325 I82.501 Obesity 511701375 E66.9 Essential hypertension 11012150 I10 Lymphedema 283445490 I89 .0 [id number] Gerard Sutton MD [facility] (Adult[facility]Fa m [facility]) [address] [place] [address] 02/05/2019 16:00:05 02/05/2019 17:07:12 Deficiency anemias 386164308 D53.9 History of pulmonary embolus 885620095 Z86.711 Chronic de ep venous thrombosis of right lower extremity 8487102807 77351 I82.501 Obesity 292852091 E66.9 Essential hypertension 48589607 I10 Lymphedema 835544402 I89 .0 [id number] DENNISE SMITH [facility] [address] [place] [address] 03/12/2019 10:28:51 03/16/2019 10:18:43 Essential hypertension 18377428 I10 Chronic de ep venous thrombosis of right lower extremity 8232400945 70458 I82.501 Lymphedema of lower extremity 059611577 I89.0 Obesity 982308246 E66.9 Cholesterol screening 27 9269690 Z13.220 Congestive heart failure 88939914 I50.9 Alcohol dependence 16018 003 F10.20 [id number] DENNISE SMITH [facility] [address] [place] [address] 04/17/2019 14:03:09 04/20/2019 09:32:53 Abdominal pain 62711051 R10.9 [id number] DENNISE SMITH [facility] [address] [place] [address] 04/29/2019 14:58:31 04/30/2019 10:25:22 Gastric ulcer 290445929 K25.9 Hypothyroidism 48843970 E03.9 Deficiency anemias 79971 3007 D53.9 [id number] DENNISE SMITH [facility] [address] [place] [address] 05/06/2019 14:59:09 05/08/2019 13:52:14 Insomnia 084893692 G47.00 Gastric ulcer 907409325 K25.9 [id number] DENNISE SMITH [facility] [address] [place] [address] 05/20/2019 15:42:56 05/21/2019 12:52:41 Gastrointestinal hemorrhage 10867740 K92.2 Bilateral knee pain 1187 198891 3108549 M25.342 [id number] DENNISE SMITH [facility] [address] [place] [address] 08/17/2019 11:42:39 08/18/2019 10:17:31 Uterine leiomyoma 09861842 D25.9 Anemia 250948526 D64.9 [id number] DENNISE SMITH [facility] [address] [place] [address] 08/24/2019 09:28:43 08/25/2019 15:02:17 Deep venous thrombosis 436818576 I82.948 [id number] DENNISE SMITH [facility] [address] [place] [address] 10/19/2019 09:40:11 10/20/2019 19:33:27 Deep venous thrombosis 223849561 I82.409 Health Concerns Section Related Observation LastModified by Organization Detai ls LastModified Time None Recorded Concern Status LastModified by Organization Details LastModified Time None Recorded Advance Directives Directive None Recorded Payers Encounter Date Sequence Insurance Name Policy Number Policy Laurent Covered Member ID Laurent Member ID Guarantor Name 05/06/2019 1 [facility] (MEDICAID HMO) [id number] Tiarra Addison [id number] Tiarra Addison 05/20/2019 1 [facility] (MEDICAID HMO) [id number] Tiarra Addison [id number] Tiarra Addison 08/17/2019 1 [place] [id number] Tiarra Addison [id number] Tiarra Addison 08/24/2019 1 [place] [id number] Tiarra Addison [id number] Tiarra Addison 10/19/2019 1 [place] [id number] Tiarra Addison [id number] Tiarra Addison Notes Date Note Type Note Provider Name and Address Organization Details Recorded Time 05/06/2019 text/html Abdominal PainReported bypatient.Location :epigastric Severity:moderate Onset/Timing:wax/w ane Associated Symptoms:no fever; no chills; no blood in the urine; no heartburn; no shortness of breath Patient presents for hospital F/U Patient went back to ER in [facility]. She was kept from saturday to saturday. She was given total of 5 pints of blood. She was told she has GI ulcer. Her xarelto was stopped. She started PPI. Feeling much better. DENNISE SMITH Attn: Accounting,[address] [place], [address], [facility] 05/08/2019 15:14:13 05/20/2019 text/html KneeReported bypatient.Location :bilateral Quality:aching; throbbing Severity:mild Timing:gradual Context:overuse Alleviating Factors:rest; elevation Associated Symptoms:no weakness; no numbness; no tingling; no redness; no warmth; no ecchymosis; no catching/locking; no buckling; no grinding; no instability; no radiation down leg; no drainage; no fever; no chills; no weight loss; no change in bowel/bladder habits;swelling;po pping/clicking patient presents today for blood work and knee pain she is feeling much better. She recently found out she is losing insurance and is worried. She has not heard back from referrals. DENNISE SMITH Attn: Accounting,[address] [place], [address], [place] [facility] 05/20/2019 19:48:49 08/17/2019 text/html Patient presents for ER f/u She has been hvaing heavy periods and began having a low BP and dizziness. I spoke with patient and due to similar symptoms in the past she went to [facility]. In hospital HGB was 7 and she was given blood. SHe is feeling better but still hvaing period. She has had US in the past and has known fibroids. patient also complains of leg swelling 4x the normal size in leg where IVF filter was placed. DENNISE SMITH Attn: Accounting,[address] [place], [address], [place] [facility] 08/17/2019 17:10:00 08/24/2019 text/html Tiarra presents f or [place] [facility] f/u Patient presented to [facility] last week due to swelling of asad leg 4x the normal size. In ER she was found to have massive blood clot and low hgb despite hvaing has a few blood transfusion the week before. They kepts her over night and gave her more blood transfusion but upon recheck her hgb had dropped again to 6.1 over night. OBGYN saw her and got her in to have a d/c yesterday that went well w/o complications. obgyn is DR. BYRD in [place]. procedure went well. They will place IUD to control bleeding. For her clot they started her up again on xarelto which was stopped last month due to bleeding. She is in pain and in ER they told her to get hydrocodone from pcp. They also advised her to stop bp medication. Today she feels good aside from pain in leg. denies chest pain, palpitation. DENNISE SMITH Attn: Accounting[address] [place], [address], [facility] 08/25/2019 13:13:16 10/19/2019 text/html patient presents for pain f/u She has started seeing pain management and gabapentin not helping. She is taking 300 mg TID. She will call them again and see what else she can try. Hematology appointment coming up in November. Cardiology appointment coming up as well. DENNISE SMITH Attn: Accounting,[address] [place], [address], [facility] 10/19/2019 10:49:56 OBGyn Episode No OBEpisode recorded.
--- OUTSIDE RECORDS SUMMARY | 2024-03-24 18:53 | XMS_ITS | Encounter Summary ---
Author Organization [facility] Healthcare Address [address] [place] [address] Care Team Providers Care Dive Superintendent Name Role Phone Haritha Tse NP Primary Care Provider [phone] Lynn Velásquez MA Unavailable Reason for Visit * Reason Comments Unsuccessful Phone Call 1 03/01-03/03 [facility] Encounter Details Date Type Department Care Team (Late st Contact Info) Description 03/06/2024 SUKHWINDER IP Outreach [facility] Accountable Care Organization [address] [place] [id number] Lynn Velásquez MA [address] [place] [address] [address] [place] [address] Social History Tobacco Use Types Packs/Day Years [...] on filedocumented in this encounter Care Teams Dive Superintendent Relationship Specialty Start Date End Date Haritha Tse, GARRETT [address] [facility] [address] [place] [address] PCP - General Internal Medicine 10/30/22 Lynn Velásquez MA [address] [facility] [address] [place] [address] ACO Care Parachute/Combatant Diver Officer 03/06/24 documented as of this encounter
--- OUTSIDE RECORDS SUMMARY | 2024-03-24 18:54 | XMS_ITS | Encounter Summary ---
Author Organization [facility] Address [address] [address] Care Team Providers Care Ethylbenzene Converter Operator Name Role Phone Haritha Tse NP Primary Care Provider [phone] Reason for Visit * Diagnostic Imaging (Routine) - Closed Specialty Diagnoses / Procedures Referred By Contac t Referred To Contact Diagnoses Pain in both knees, unspecified chronicity Procedures XR Pelvis 1 or 2 Views Kaiser Nielson MD [address] [place] [address] [address] [address] Phone: tel: fax: [facility] Referral ID Status Reason Start Date Expiration Date Visits Re quested Visits Authorized [id number] Closed 10/18/2022 11/17/2023 1 1 Encounter Details Date Type Department Care Team (Late st Contact Info) Description 10/18/2022 9:25 AM CDT Ancillary Procedure [facility] Imaging at [address] [address] Social History Tobacco Use Types Packs/Day Years [...] points, staff should administer the PHQ-9) 0 11/25/2020 Comments No Sex and Gender Information Value Date Recorded Sex Assigned at Not on file Legal Sex Female 7:50 PM CDT Gender Identity Female 11/23/2020 10:23 AM CDT Sexual Orientation Straight 11/23/2020 10 :23 AM CDT documented as of this encounter Plan of Treatment Not on file documented as of this encounter Procedures Procedure Name Priority Date/Time Associated Diagnosis Comments XR PELVIS 1 OR 2 VIEWS Schedule Routine, Read Routine (OP Routine) 10/18/2022 9:42 AM CDT Primary osteoarthritis of both knees documented in this encounter Results * XR Pelvis 1 or 2 Views (10/18/2022 9:42 AM CDT) Anatomical Region Laterality Modality Body, Pelvis N/A Digital Radiogra phy Narrative 10/18/2022 9:42 AM CDT X-ray of the pelvis viewed and interpreted. ??There is no evidence of fracture, subluxation. ??There is no aggressive bone lesion. There is no radiopaque foreign body associated with the hip joints. ??The pelvis shows postsurgical clips from previous procedure. ??There are mild arthritic changes noted on the right and more moderate changes noted on the left degenerative changes. us Kaiser Nielson MD IMG XR PROCEDURES Final Resu lt documented in this encounter Visit Diagnoses Not on filedocumented in this encounter Care Teams Ethylbenzene Converter Operator Relationship Specialty Start Date End Date Haritha Tse NP PCP - General Internal Medicine 03/28/20 10/29/22 documented as of this encounter
--- OUTSIDE RECORDS SUMMARY | 2024-03-24 18:54 | XMS_ITS | Encounter Summary ---
Author Organization [facility] Address [address] [place] [address] Care Team Providers Care Grain Elevator Man Name Role Phone Haritha Tse NP Primary Care Provider [phone] Reason for Visit * Reason Comments Leg Pain RLE lymphadema * Consultation (Routine) - Closed Specialty Diagnoses / Procedures Referred By Wilfred kirkland Referred To Contact Vascular Surgery Diagnoses Lymphedema of right lower extremity Haritha Tse NP Phone: tel: fax: [facility] [address] [place] [id number] Phone: tel: fax: Referral ID Status Reason Start Date Expiration Date V isits Requested Visits Authorized [id number] Closed Specialty Services Required 04/18/2020 07/17/2020 3 3 Encounter Details Date Type Department Care Team (Late st Contact Info) Description 04/18/2020 9:45 AM FLEET SERVICE MANAGER Office Visit [facility] Vascular and Vein Surgery [address] [place] [address] Karla [facility]uresh [facility] [address] [place] [id number] Lymphedema of right lower extremity (Primary Dx); DVT (deep venous thrombosis) (CMS/HCC); Claudication (CMS/HCC); Edema, unspecified type; History of DVT (deep vein thrombosis); Essential hypertension; Acquired hypothyroidism; Cellulitis of right lower extremity Social History Tobacco Use Types Packs/Day Years Used Date Smoking Tobacco: Never Smokeless Tobacco: Never Alcohol Use Standard Drinks/Week Comments Yes 0 (1 standard drink = 0.6 oz pur e alcohol) socially PHQ-2 Answer Date Recorded PHQ-2 Total Score (If total score is 3 or more points, staff should administer the PHQ-9) 1 04/19/2020 Comments No Sex and Gender Information Value Date Recorded Sex Assigned at Not on file Legal Sex Female 7:50 PM CDT Gender Identity Female 11/23/2020 10:23 AM CDT Sexual Orientation Straight 11/23/2020 10 :23 AM CDT documented as of this encounter Last Filed Vital Signs Vital Sign Reading Time Taken Comments Blood Pressure 134/96 04/18/2020 9:55 AM FLEET SERVICE MANAGER Pulse 73 04/18/2020 9:55 AM FLEET SERVICE MANAGER Temperature - - Respiratory Rate - - Oxygen Saturation - - Inhaled Oxygen Concentration - - Weight 147.9 kg (326 lb) 04/18/2020 9:55 AM FLEET SERVICE MANAGER Height 170.2 cm (5' 7 ) 04/18/2020 9:55 AM FLEET SERVICE MANAGER Body Mass Index 51.06 04/18/2020 9:55 AM FLEET SERVICE MANAGER documented in this encounter Patient Instructions * Patient Instructions* Karla Suresh MD - 04/18/2020 9:45 AM FLEET SERVICE MANAGER Will call patient to discuss the filter. T SERVICE MANAGER documented in this encounter Progress Notes * Karla Suresh MD - 04/18/2020 9:45 AM CST Patient ID: Tiarra Addison is a 49 y.o. female Visit Date: 04/18/2020 Chief Complaint Chief Complaint Patient presents with ??? Leg Pain RLE lymphadema HPI Patient is a 49-year-old female with a past medical history of hypertension, hypothyroidism, lymphedema of the bilateral lower extremities, and DVT and PEs and an IVC filter placed who comes now complaining of increasing right leg swelling. She says that she was just recently hospitalized due to cellulitis and swelling of her right leg and the redness has gone down quite a bit but it is still very swollen. She says that it is painful but mostly heaviness in the leg and no sharp pain. She says that the pain is dull heavy and throughout the entire leg but especially closer to the ankle. She says that her skin feels very thick and tough to her right now where as it had usually is swollen but not this bad. She is complaining of left leg swelling but currently it is the normal amount that she is used to. She says that she was diagnosed with lymphedema many years ago when she lived in [place] and knows that she has to wear compression therapy keep her legs elevated as best she can and walk as much as she can. However at this time with her increasing right leg swelling she is unable to re ally walk given how painful it is. She does have a lymphedema pump and says at this point she can not even get her right leg into the pump. Past Medical History: Diagnosis Date ??? Cellulitis ??? CHF (congestive heart failure) ([facility]/HCC) ??? DVT (deep venous thrombosis) (CMS/HCC) ??? DVT (deep venous thrombosis) (CMS/HCC) ??? Hypertension ??? Lymph edema Past Surgical History: Procedure Laterality Date ??? CAROTID STENT ??? SECTION ??? GASTRIC BYPASS Family History Problem Relation Age of Onset ??? Diabetes Mother ??? Hypertension Mother ??? Diabetes Father ??? Hypertension Father Social History Socioeconomic History ??? Marital status: Spouse name: None ??? Number of children: None ??? Years of education: None ??? Highest education level: None Occupational History ??? None Social Needs ??? Financial resource strain: None ??? Food insecurity Worry: None Inability: None ??? Transportation needs Medical: None Non-medical: None Tobacco Use ??? Smoking status: Never Smoker ??? Smokeless tobacco: Never Used Substance and Sexual Activity ??? Alcohol use: Yes Comment: socially ??? Drug use: Yes Types: Hydrocodone ??? Sexual activity: None Lifestyle ??? Physical activity Days per week: None Minutes per session: None ??? Stress: None Relationships ??? Social connections Talks on phone: None Gets together: None Attends cheondoism service: None Active member of club or organization: None Attends meetings of clubs or organizations: None Relationship status: None ??? Intimate partner violence Fear of current or ex partner: None Emotionally abused: None Physically abused: None Forced sexual activity: None Other Topics Concern ??? None Social History Narrative Merged History Encounter Born and raised in [facility], no abuse during childhood, has masters degree in finance. Living with son, unemployed, has firearms at home. Has 3 children oldest is 33, youngest is 9. Significant substance use, alcohol, pain pills, marijuana , see HPI for more details. Denies legal history, single, twice. ROS Constitutional: No change in appetite. No recent weight loss. No fevers chills or sweats. HEENT: No trouble swallowing. No tinnitus. Eyes: No visual disturbances Respiratory: No shortness of breath. No cough or sputum production. No wheezing. Cardiovascular: No chest pain. No palpitations. Gastrointestinal: No abdominal pain. No nausea vomiting or diarrhea. Genitourinary: No dysuria. No hematuria. Extremities: Bilateral leg swelling from her lymphedema but worsening right leg swelling and recenthistory of cellulitis Musculoskeletal: No joint pains. No back pain. Neurologic: No dizziness. No syncope. No weakness. Skin: No rashes. No discoloration. Hematologic: no bleeding Psychiatric: no anxiety, no behavioral changes, no mood swings PE Constitutional: Alert and oriented HEENT: Head atraumatic and normocephalic Neck is supple No carotid bruits Extraocular movements full, sclerae anicteric Chest: Effort normal. Breath sounds normal. Cardiovascular: S1 and S2 are normal. No murmurs rubs or gallops appreciated. Abdominal: Soft, nontender, no masses. Extremities: Left leg swelling with 1+ pitting edema but skin is soft. Right leg massively swollen at this point with areas of lymphocele and chronic skin changes from prolonged lymphedema. Nonpitting edema on the right. Musculoskeletal: Normal range of motion. Neurologic: Cranial nerves 2-12 intact. Strength and sensation intact bilaterally. Skin: Warm and dry. No rashes. No discoloration. Psychiatric: Normal mood and affect. Behavior normal. Judgment normal. IMAGING STUDIES Venous reflux study reviewed and interpreted by me. Patient has a chronic right sided DVT seen but no acute DVT seen. ASSESSMENT AND PLAN Diagnoses and all orders for this visit: Lymphedema of right lower extremity (Primary) Comments: Use referral to see vascular. Keep leg elevated when able. Antibiotics as instructed Assessment & Plan: Patient has lymphedema bilateral lower extremities with an exacerbation of the right lower extremity at this time. Her right leg is massively swollen and she is unable to even get into her lymphedemapump. I will plan to send her to lymphedema therapy to try to get the swelling down to get her backin her pump in compression. This is also the best thing for her to be able to combat cellulitis. She says that she has been dealing with her lymphedema for so long she does understand that that is the problem however she is just concerned since she can get back into her pump right now. Orders: - Ambulatory referral to Vascular Surgery - US Vein Duplex Lower Extremity Right Limited; Future DVT (deep venous thrombosis) (CMS/HCC) - US Vein Duplex Lower Extremity Right Limited; Future Claudication (CMS/HCC) - US Vein Duplex Lower Extremity Right Limited; Future Edema, unspecified type - US Vein Duplex Lower Extremity Right Limited; Future History of DVT (deep vein thrombosis) Assessment & Plan: Patient has a history of recurrent DVT and PEs. She is currently on anticoagulation but she had an IVC filter placed. We found that is the TrapEase filter and given that she is only 49 years old and is able to be anticoagulated the best thing would be for her to have the filter removed. I will callher to discuss this with her but if she is interested in having the filter removed she would need to go see a specialist to remove these types of filters as they are permanent filters. Essential hypertension Assessment & Plan: Followed by her PCP and controlled on medications at this time. Acquired hypothyroidism Assessment & Plan: Followed by her PCP and controlled at this time. Cellulitis of right lower extremity Assessment & Plan: Patient recently had an episode of cellulitis and was hospitalized for IV antibiotics. Karla Suresh MD T SERVICE MANAGER documented in this encounter Miscellaneous Notes * Assessment & Plan Note - Karla Suresh MD - 04/20/2020 11:11 AM FLEET SERVICE MANAGER Associated Problem(s): History of DVT (deep vein thrombosis) Patient has a history of recurrent DVT and PEs. She is currently on anticoagulation but she had an IVC filter placed. We found that is the TrapEase filter and given that she is only 49 years old and is able to be anticoagulated the best thing would be for her to have the filter removed. I will callher to discuss this with her but if she is interested in having the filter removed she would need to go see a specialist to remove these types of filters as they are permanent filters. T SERVICE MANAGER * Assessment & Plan Note - Karla Suresh MD - 04/20/2020 11:10 AM FLEET SERVICE MANAGER Associated Problem(s): Lymphedema of right lower extremity Patient has lymphedema bilateral lower extremities with an exacerbation of the right lower extremity at this time. Her right leg is massively swollen and she is unable to even get into her lymphedemapump. I will plan to send her to lymphedema therapy to try to get the swelling down to get her backin her pump in compression. This is also the best thing for her to be able to combat cellulitis. She says that she has been dealing with her lymphedema for so long she does understand that that is the problem however she is just concerned since she can get back into her pump right now. T SERVICE MANAGER * Assessment & Plan Note - Karla Suresh MD - 04/20/2020 11:10 AM FLEET SERVICE MANAGER Associated Problem(s): Hypertension Followed by her PCP and controlled on medications at this time. T SERVICE MANAGER * Assessment & Plan Note - Karla Suresh MD - 04/20/2020 11:10 AM FLEET SERVICE MANAGER Associated Problem(s): Hypothyroidism Followed by her PCP and controlled at this time. T SERVICE MANAGER * Assessment & Plan Note - Karla Suresh MD - 04/20/2020 11:10 AM FLEET SERVICE MANAGER Associated Problem(s): Cellulitis of right lower extremity Patient recently had an episode of cellulitis and was hospitalized for IV antibiotics. T SERVICE MANAGER documented in this encounter Plan of Treatment Not on file documented as of this encounter Visit Diagnoses Diagnosis Lymphedema of right lower extremity- Primary DVT (deep venous thrombosis) ([facility]/HCC) ([facility]) Acute venous embolism and thrombosis of unspecified deep vessels of lower extremity Claudication ([facility]) Unspecified peripheral vascular disease Edema, unspecified type History of DVT (deep vein thrombosis) Essential hypertension Unspecified essential hypertension Acquired hypothyroidism Unspecified hypothyroidism Cellulitis of right lower extremity documented in this encounter Orders Outpatient Referral Count Last Ordered Date Fir st Ordered Date AMB REFERRAL TO VASCULAR SURGERY 1 04/18/19 documented in this encounter Care Teams Grain Elevator Man Relationship Specialty Start Date End Date Haritha Tse NP PCP - General Internal Medicine 03/28/20 10/29/22 documented as of this encounter
--- OUTSIDE RECORDS SUMMARY | 2024-03-24 18:54 | XMS_ITS | Encounter Summary ---
Author Organization [facility] Address [address] [place] [address] Care Team Providers Care Vehicle Controls Engineer Name Role Phone Haritha Tse NP Primary Care Provider [phone] Reason for Visit * Reason Onset Date Comments knee botherig you 10/26/2022 Encounter Details Date Type Department Care Team (Late st Contact Info) Description 10/26/2022 Telephone [facility] Orthopedics and Sports Medicine [address] [place] [address] Kaiser Nielson MD [address] [place] [address] [address] [facility] [address] [place] [address] knee botherig you Social History Tobacco Use Types Packs/Day Years [...] encounter Miscellaneous Notes * Telephone Encounter - Gianni Kc PA - 10/26/2022 4:15 PM CDT Spoek to the pt and I have encouraged compression and using ice or heat to help with pain and swelling. She may follow up for a repeat aspiration if she wishes to do so * Telephone Encounter - Clotilde Ramirez - 10/26/2022 1:34 PM CDT Patient calling stating her knee is really bothering her, constant pain, no change since injection and is wanting to know what can be done. Please call patient documented in this encounter Plan of Treatment Not on file documented as of this encounter Visit Diagnoses Not on filedocumented in this encounter Care Teams Vehicle Controls Engineer Relationship Specialty Start Date End Date Haritha Tse NP PCP - General Internal Medicine 03/28/20 10/29/22 documented as of this encounter
--- OUTSIDE RECORDS SUMMARY | 2024-03-24 18:54 | XMS_ITS | Encounter Summary ---
Author Organization [facility] Address [address] [place] [address] Care Team Providers Care Marketing Automation Analyst Name Role Phone Haritha Tse NP Primary Care Provider [phone] Encounter Details Date Type Department Care Team (Late st Contact Info) Description 01/07/2023 10:30 AM CDT Telemedicine [facility] Internal Medicine at [place] [address] [place] [address] Haritha Tse NP [address] [place] [address] Chronic pain of both knees (Primary Dx) Social History Tobacco Use Types [...] points, staff should administer the PHQ-9) 1 10/30/2022 Comments No Sex and Gender Information Value Date Recorded Sex Assigned at Not on file Legal Sex Female 7:50 PM CDT Gender Identity Female 11/23/2020 10:23 AM CDT Sexual Orientation Straight 11/23/2020 10 :23 AM CDT documented as of this encounter Patient Instructions * Patient Instructions* Haritha Tse NP - 01/07/2023 10:30 AM CDT Contact your insurance to see who is in network for bariatric surgery. Follow-up in 4 months or sooner as needed. Contact the office with any questions or concerns documented in this encounter Progress Notes * Haritha Tse NP - 01/07/2023 10:30 AM CDT Images from the original note were not included. The patient has been informed that the visit may not be secure and acknowledged the information. Subjective/Objective Patient ID: Tiarra Addison is a 52 y.o. female. Assessment/Plan Diagnoses and all orders for this visit: Chronic pain of both knees (Primary) Comments: Contact your insurance to see about bariatric revision. Notify the office. Follow-up in 4 months orsooner as needed Chief Complaint No chief complaint on file. HPI: 52-year-old female for routine 4 month follow-up. She is having chronic bilateral knee pain. She does take Percocet twice daily. She is wondering about having a revision completed of her bariatric surgery. We did discuss contacting her insurance to see who is in network. She voices understanding. She would like this to be her routine 4 month visit. She is to follow-up in 4 months or sooner as needed. She is to give us some blood pressure readings in the next week. She has no additional complaints concerns or needs. She continues to see Ortho for injections Current Outpatient Medications Medication Sig Dispense Refill amLODIPine (NORVASC) 5 mg tablet Take 1 tablet (5 mg total) by mouth daily (Patient not taking: Reported on 10/30/2022) 90 tablet 2 ferrous sulfate 325 mg (65 mg of elemental iron) tablet Take 1 tablet (325 mg total) by mouth dailywith breakfast (Patient not taking: Reported on 10/30/2022) furosemide (LASIX) 40 mg tablet Take 1 tablet (40 mg total) by mouth daily 90 tablet 2 lisinopriL (PRINIVIL,ZESTRIL) 10 mg tablet Take 1 tablet (10 mg total) by mouth daily (Patient not taking: Reported on 10/30/2022) 90 tablet 2 methylPREDNISolone (MEDROL DOSEPACK) 4 mg Dosepack Take as directed on package. 21 tablet 0 metoprolol XL (TOPROL-XL) 25 mg extended release tablet Take 1 tablet (25 mg total) by mouth daily 90 tablet 2 omeprazole (PriLOSEC) 40 mg capsule Take 1 capsule (40 mg total) by mouth daily 30 capsule 11 oxyCODONE-acetaminophen (PERCOCET) 5-325 mg per tablet Take 1 tablet by mouth 2 (two) times a day as needed for pain 60 tablet 0 rivaroxaban (XARELTO) 20 mg tablet Take 1 tablet (20 mg total) by mouth daily 90 tablet 2 sucralfate (CARAFATE) suspension 1 gram/10 mL SHAKE LIQUID AND TAKE 1 ML BY MOUTH BEFORE MEALS AND AT BEDTIME (Patient not taking: Reported on 10/30/2022) zolpidem (AMBIEN) 10 mg tablet Take 1 tablet (10 mg total) by mouth nightly as needed for sleep 90 tablet 0 No current facility-administered medications for this visit. Review of Systems: Review of Systems Constitutional: Negative for activity change, chills and fatigue. HENT: Negative for congestion, ear pain, nosebleeds, rhinorrhea and sinus pressure. Respiratory: Negative for cough and shortness of breath. Cardiovascular: Negative for chest pain and palpitations. Gastrointestinal: Negative for abdominal pain. Endocrine: Negative for cold intolerance. Genitourinary: Negative for difficulty urinating and hematuria. Musculoskeletal: Positive for arthralgias (Bilateral knee pain). Negative for back pain and myalgias. Neurological: Negative for dizziness, weakness and headaches. Psychiatric/Behavioral: Negative for agitation, confusion and sleep disturbance. Labs: No results found for this or any previous visit (from the past 1008 hour(s)). This was a telemedicine visit with Tiarra Addison alone which took place via real-time video connection. During the visit, I was located at home and the patient was located at home in the state [facility]. The patient visit started at 1030 and ended at 1040. My total encounter time on 01/07/2023 was 10 minutes which was spent in the activities documented in the note. This includes time spe nt prior to the visit and after the visit in direct care of the patient. This time does not includetime spent in any separately reportable services.. The patient has been informed that the visit may not be secure and acknowledged the information. I have explained the option of participating in a telephone or video visit during the COVID-19 public health emergency to the patient. After being given an opportunity to ask questions about and discuss this type of visit, the patient verbally consented to proceeding with the telephone/video visit.The patient understands that this service replaces an office visit and they may be billed and/or responsible for any applicable copayments. Haritha Tse NP documented in this encounter Plan of Treatment Not on file documented as of this encounter Visit Diagnoses Diagnosis Chronic pain of both knees- Primary documented in this encounter Care Teams Marketing Automation Analyst Relationship Specialty Start Date End Date Haritha Tse NP [address] [place] [address] PCP - General Internal Medicine 10/30/22 documented as of this encounter
--- OUTSIDE RECORDS SUMMARY | 2024-03-24 18:54 | XMS_ITS | Encounter Summary ---
Author Organization [facility] Medical [facility] Address [address] [address] Care Team Providers Care Electrician Outside Name Role Phone Haritha Tse NP Primary Care Provider [phone] Reason for Referral * Procedure (Routine) - Closed Specialty Diagnoses / Procedures Referred By Contac t Referred To Contact Orthopedic Surgery Diagnoses Primary osteoarthritis of right knee Procedures Large Joint (Hip, Knee, Shoulder) Injection: R knee Josee Reeder NP [address] [facility] [address] [address] Phone: tel: fax: [facility] Medical [facility] Orthopedics and Sports Medicine [address] [place] [phone] Phone: tel: fax: Referral ID Status Reason Start Date Expiration Date Visits Re quested Visits Authorized [id number] Closed 11/25/2020 12/25/2021 1 1 * Procedure (Routine) - Closed Specialty Diagnoses / Procedures Referred By Contac t Referred To Contact Orthopedic Surgery Diagnoses Primary osteoarthritis of left knee Procedures Large Joint (Hip, Knee, Shoulder) Injection: L knee Josee Reeder NP [address] [place] [address] [address] [place] [address] Phone: tel: fax: [facility] Orthopedics and Sports Medicine [address] [place] [phone] Phone: tel: fax: Referral ID Status Reason Start Date Expiration Date Visits Re quested Visits Authorized [id number] Closed 11/25/2020 12/25/2021 1 1 Reason for Visit * Reason Comments Pain Injections Pain Injections Encounter Details Date Type Department Care Team (Late st Contact Info) Description 11/25/2020 11:30 AM CDT Office Visit [facility] Orthopedics and Sports Medicine [address] [place] [phone] Josee Reeder NP [address] [place] [address] [address] [place] [phone] Primary osteoarthritis of left knee-severe; Primary osteoarthritis of right knee-moderate/severe Social History Tobacco Use Types Packs/Day Years [...] - Inhaled Oxygen Concentration - - Weight 144.7 kg (319 lb) 11/25/2020 11:36 AM CDT Height 170.2 cm (5' 7 ) 11/25/2020 11:36 AM CDT Body Mass Index 49.96 11/25/2020 11:36 AM CDT documented in this encounter Progress Notes * Josee Reeder, ASSISTANT PROFESSOR OF SOCIOLOGY - 11/25/2020 11:30 AM CDTAssociated Order(s): Large Joint (Hip, Knee, Shoulder) Injection: R knee; Large Joint (Hip, Knee, Sh oulder) Injection: L knee Images from the original note were not included. Reason for Appointment 1. Chronic bilateral knee osteoarthritic pain History of Present Illness: Tiarra Addison is a 49 y.o. female arrived to the orthopedic department ambulatory, walkingwith no assisted devices. She is here today requesting to have bilateral knee cortisone injections for her chronic primary osteoarthritis of the bilateral knees. Her bilateral knee pain increases up to 9/10 described as an achiness which increases with activities. Her last cortisone injections to the were given July 27, [address] Prashant Blanc and provided up to 90% reduction of bilateral knee pain. She has findings of severe osteoarthritis of the left knee on x-ray and moderate to severe osteoarthritis of the right knee on x-ray July 27, 2020. She denies any recent injuries. She denies erythema or ecchymosis to the bilateral knees and denies any radicular leg pain. She has a prior history ofsignificant lymphedema predominantly in the right lower extremity as well as history of prior DVTs. She states that she lives in [place] and he is here visiting her mother. She states that she doeshave an orthopedic provider in [place]. Assessment: Diagnosis Plan 1. Primary osteoarthritis of left knee-severe Large Joint (Hip, Knee, Shoulder) Injection: L knee 2. Primary osteoarthritis of right knee-moderate/severe Large Joint (Hip, Knee, Shoulder) Injection: R knee Plan: ??? Today I gave Tiarra bilateral knee cortisone injections using 4 mL 1% lidocaine without epi and 12 mg of betamethasone to each knee. ??? Tiarra states that she does have an orthopedic provider in [place] where she resides with plans to follow-up with her orthopedic provider in [place]. ? ? Currently she would not be a good candidate for total knee replacement. She has a BMI < 52, significant lymphedema of the lower extremities as well as a history of DVTs. Imaging Reviewed: Left knee x-ray July 27, 2020, findings per radiologist Dr. Rock Rivera: FINDINGS: BONES/JOINTS: No acute fracture, malalignment or osseous abnormalities. Severe osteoarthritic changes left knee SOFT TISSUES: Unremarkable. OTHER: No other significant finding. IMPRESSION: Severe osteoarthritic changes Right knee x-ray July 27, 2020, findings per radiologist Dr. Rock Rivera: FINDINGS: BONES/JOINTS: No acute fracture, malalignment or osseous abnormalities. Moderate to severe osteoarthritic changes. SOFT TISSUES: Unremarkable. OTHER: No other significant finding. IMPRESSION: Moderate to severe osteoarthritic changes Procedure: Large Joint (Hip, Knee, Shoulder) Injection: L knee Performed by: Josee Reeder NP Authorized by: Josee Reeder NP Large Joint Injection/Aspiration: Consent Given by: Patient Site marked: the procedure site was marked Timeout: prior to procedure the correct patient, procedure, and site was verified Verbal consent obtained: Yes Supporting Documentation: Indications: Pain Procedure Details: Location: Knee Site: L knee Prep: patient was prepped using a clean technique Needle Size: 22 G Approach: Lateral Ultrasound guided: No Medications: 4 mL lidocaine 10 mg/mL (1 %); 12 mg betamethasone 6 mg/mL Patient tolerance: Patient tolerated the procedure well with no immediate complications Large Joint (Hip, Knee, Shoulder) Injection: R knee Performed by: Josee Reeder NP Authorized by: Josee Reeder NP Large Joint Injection/Aspiration: Consent Given by: Patient Site marked: the procedure site was marked Timeout: prior to procedure the correct patient, procedure, and site was verified Verbal consent obtained: Yes Supporting Documentation: Indications: Pain Procedure Details: Location: Knee Site: R knee Prep: patient was prepped using a clean technique Needle Size: 22 G Approach: Lateral Ultrasound guided: No Medications: 4 mL lidocaine 10 mg/mL (1 %); 12 mg betamethasone 6 mg/mL Patient tolerance: Patient tolerated the procedure well with no immediate complications Examination: Ortho Exam Left knee exam: ??? Inspection: The skin is intact across the left knee and left lower extremity with no clinical evidence infection, no ecchymosis. Lymphedema of the left lower extremities present. (reported as chronic per patient) ??? Posterior Napoles's cyst is difficult to evaluate to to the prominence of soft tissue. ??? Joint line tenderness is present to the medial, lateral and patellofemoral compartment knee. ??? Interarticular joint effusion is difficult to determine due to the prominence of soft tissue ??? ROM: There is near full extension and 100?? flexion. ??? Stability: The knee is stable to varus and valgus testing at terminal extension and 30?? of flexion. ??? Quadriceps tendon: There is no tenderness with palpation. ??? Patella tendon: there is no tenderness with palpation. ??? Anterior drawer test: is negative for instability ??? Posterior drawer test is negative for instability. ??? Crepitus is present with open chain knee extension. ??? Sensation is intact in the superficial peroneal nerve, deep peroneal nerve, sural, saphenous, and plantar nerves. ??? No pain on palpation or swelling of the calf concerning for deep vein thrombosis. ??? The lower extremity is warm and well perfused. ??? There is full strength with ankle dorsiflexion and plantarflexion. + dorsalis pedis pulses. ? ? Toes warm to touch with capillary refill < 2 seconds. Right knee exam: ??? Inspection: The skin is intact across the right knee and lower extremity with no clinical evidence infection, no ecchymosis. There is significant lymphedema of the right lower extremity (reportedas chronic per patient) ??? Posterior Napoles's cyst is difficult to assess due to significant prominence of soft tissue. ??? Joint line tenderness is present to the medial, lateral and patellofemoral compartment knee. ??? Interarticular joint effusion is difficult to determine due to prominence of soft tissue. ??? ROM: There is near full extension and 110?? flexion. ??? Stability: The knee is stable to varus and valgus testing at terminal extension and 30?? of flexion. ??? Quadriceps tendon: There is no tenderness with palpation. ??? Patella tendon: there is no tenderness with palpation. ??? Anterior drawer test: is negative for instability ??? Posterior drawer test is negative for instability. ??? Crepitus is present with open chain knee extension. ??? Sensation is intact in the superficial peroneal nerve, deep peroneal nerve, sural, saphenous, and plantar nerves. ??? There is no pain on palpation or swelling of the calf concerning for deep vein thrombosis. ??? The lower extremity is warm and well perfused. ??? There is full strength with ankle dorsiflexion and plantarflexion. 2+ dorsalis pedis pulses. ? ? Toes warm to touch with capillary refill < 2 seconds. GENERAL APPEARANCE: Well-nourished, in no acute distress SKIN: No presence of erythema or ecchymosis to the bilateral knees. No presence of skin excoriationor rashes to the bilateral knees. Warm and dry HEART:Regular rate LUNGS: Unlabored breathing MUSCULOSKELETAL: See bilateral knee exam above EXTREMITIES: Capillary refill < 2 seconds in bilateral lower extremity nail beds, + bilateral dorsalis pedis peripheral pulses NEUROLOGIC: Alert and oriented. She walks independently with no assisted devices PSYCH: Cooperative with exam Allergies: Patient has no known allergies. Medications: Current Outpatient Medications: ??? ferrous sulfate 325 mg (65 mg of elemental iron) tablet, Take 65 mg of elemental iron by mouth daily with breakfast, Disp: , Rfl: ??? omeprazole (PriLOSEC) 40 mg capsule, Take 1 capsule (40 mg total) by mouth daily, Disp: 30 capsule, Rfl: 11 ??? zolpidem (AMBIEN) 10 mg tablet, Take 1 tablet (10 mg total) by mouth nightly as needed for sleep, Disp: 90 tablet, Rfl: 3 ??? amLODIPine (NORVASC) 5 mg tablet, Take 1 tablet (5 mg total) by mouth daily, Disp: 90 tablet, Rfl: 2 ??? furosemide (LASIX) 40 mg tablet, Take 1 tablet (40 mg total) by mouth daily, Disp: 90 tablet, Rfl: 2 ??? HYDROcodone-acetaminophen (NORCO) 10-325 mg per tablet, Take 1 tablet by mouth every 6 (six) hours as needed for pain, Disp: 90 tablet, Rfl: 0 ??? lisinopriL (PRINIVIL,ZESTRIL) 10 mg tablet, Take 1 tablet (10 mg total) by mouth daily, Disp: 90 tablet, Rfl: 2 ??? metoprolol XL (TOPROL-XL) 25 mg extended release tablet, Take 1 tablet (25 mg total) by mouth daily, Disp: 90 tablet, Rfl: 2 ??? rivaroxaban (XARELTO) 20 mg tablet, Take 1 tablet (20 mg total) by mouth daily, Disp: 90 tablet, Rfl: 2 ??? sucralfate (CARAFATE) suspension 1 gram/10 mL, SHAKE LIQUID AND TAKE 1 ML BY MOUTH BEFORE MEALSAND AT BEDTIME, Disp: , Rfl: Past Medical History: Past Medical History: Diagnosis Date ??? Cellulitis ??? CHF (congestive heart failure) (CMS/HCC) (HCC) ??? DVT (deep venous thrombosis) (CMS/HCC) (HCC) ??? DVT (deep venous thrombosis) (CMS/HCC) (HCC) ??? Hypertension ??? Lymph edema ??? Primary osteoarthritis of knees, bilateral Past Surgical History: Past Surgical History: Procedure Laterality Date ??? CAROTID STENT ??? SECTION ??? GASTRIC BYPASS Social History: Social History Occupational History ??? Not on file Tobacco Use ??? Smoking status: Never Smoker ??? Smokeless tobacco: Never Used Substance and Sexual Activity ??? Alcohol use: Yes Comment: socially ??? Drug use: Yes Types: Hydrocodone ??? Sexual activity: Not on file Vital Signs: Height 170.2 cm (5' 7 ), weight (!) 144.7 kg (319 lb). BMI Readings from Last 1 Encounters: 11/25/20 52.16 kg/m?? Josee Reeder NP documented in this encounter Plan of Treatment Not on file documented as of this encounter Procedures Procedure Name Priority Date/Time Associated Diagnosis Comments [place] ARTHROCENTESIS ASPIR&/INJ MAJOR JT/BURSA W/O US Routine 11/25/2020 11:30 AM CDT Primary osteoarthritis of right knee-moderate/severe [place] ARTHROCENTESIS ASPIR&/INJ MAJOR JT/BURSA W/O US Routine 11/25/2020 11:30 AM CDT Primary osteoarthritis of left knee-severe documented in this encounter Results * [place] ARTHROCENTESIS ASPIR&/INJ MAJOR JT/BURSA W/O US (11/25/2020 11:30 AM CDT) Narrative Josee Reeder NP - 11/25/2020 11:30 AM CDT Josee Reeder NP ? 11/25/2020 ??3:52 PM Large Joint (Hip, Knee, Shoulder) Injection: R knee Performed by: Josee Reeder NP Authorized by: Josee Reeder NP Large Joint Injection/Aspiration: ??Consent Given by: ??Patient ??Site marked: the procedure site was marked ?Timeout: prior to procedure the correct patient, procedure, and site was verified ?Verbal consent obtained: Yes ?? Supporting Documentation: ??Indications: ??Pain Procedure Details: ??Location: ??Knee ??Site: ??R knee ??Prep: patient was prepped using a clean technique ?Needle Size: ??22 G ??Approach: ??Lateral ??Ultrasound guided: No ?Medications: ??4 mL lidocaine 10 mg/mL (1 %); 12 mg betamethasone 6 mg/mL ??Patient tolerance: ??Patient tolerated the procedure well with no immediate complications us Josee Reeder NP IN CLINIC/BEDSIDE ORDERABLE S Final Result * [place] ARTHROCENTESIS ASPIR&/INJ MAJOR JT/BURSA W/O US (11/25/2020 11:30 AM CDT) Narrative Josee Reeder NP - 11/25/2020 11:30 AM CDT Josee Reeder NP ? 11/25/2020 ??3:52 PM Large Joint (Hip, Knee, Shoulder) Injection: L knee Performed by: Josee Reeder NP Authorized by: Kadonsky, Josee M., ASSISTANT PROFESSOR OF SOCIOLOGY Large Joint Injection/Aspiration: ??Consent Given by: ??Patient ??Site marked: the procedure site was marked ?Timeout: prior to procedure the correct patient, procedure, and site was verified ?Verbal consent obtained: Yes ?? Supporting Documentation: ??Indications: ??Pain Procedure Details: ??Location: ??Knee ??Site: ??L knee ??Prep: patient was prepped using a clean technique ?Needle Size: ??22 G ??Approach: ??Lateral ??Ultrasound guided: No ?Medications: ??4 mL lidocaine 10 mg/mL (1 %); 12 mg betamethasone 6 mg/mL ??Patient tolerance: ??Patient tolerated the procedure well with no immediate complications us Josee Reeder ASSISTANT PROFESSOR OF SOCIOLOGY IN CLINIC/BEDSIDE ORDERABLE S Final Result documented in this encounter Visit Diagnoses Diagnosis Primary osteoarthritis of left knee-severe Primary osteoarthritis of right knee-moderate/severe documented in this encounter Administered Medications Inactive Administered Medications - up to 3 most recent administrations Medication Order MAR Action Action Date Dose Rate Site betamethasone (CELESTONE) injection 12 mg 12 mg, One-Time Injection, Starting on Sat11/25/20 at 1224, For 1 doseIndications:Primary osteoarthritis of left knee Given 11/25/2020 12:24 PM CDT 12 mg betamethasone (CELESTONE) injection 12 mg 12 mg, One-Time Injection, Starting on Sat11/25/20 at 1225, For 1 doseIndications:Primary osteoarthritis of right knee Given 11/25/2020 12:25 PM CDT 12 mg lidocaine (XYLOCAINE) 10 mg/mL (1 %) injection 4 mL 4 mL, One-Time Injection, Starting on Sat11/25/20 at 1224, For 1 dose, Indications: Administration of Local AnesthesiaIndications:Administrati on of Local Anesthesia Given 11/25/2020 12:24 PM CDT 4 mL lidocaine (XYLOCAINE) 10 mg/mL (1 %) injection 4 mL 4 mL, One-Time Injection, Starting on Sat11/25/20 at 1225, For 1 dose, Indications: Administration of Local AnesthesiaIndications:Administrati on of Local Anesthesia Given 11/25/2020 12:25 PM CDT 4 mL documented in this encounter Care Teams Electrician Outside Relationship Specialty Start Date End Date Haritha Tse NP PCP - General Internal Medicine 03/28/20 10/29/22 documented as of this encounter
--- OUTSIDE RECORDS SUMMARY | 2024-03-24 18:54 | XMS_ITS | Encounter Summary ---
Author Organization [facility] Address [address] [place] [address] Care Team Providers Care Dog Or Animal Sitter Name Role Phone Haritha Tse NP Primary Care Provider [phone] Reason for Referral * Diagnostic Imaging (Routine) - Closed Specialty Diagnoses / Procedures Referred By Wilfred kirkland Referred To Contact Diagnoses Left knee pain, unspecified chronicity Procedures XR Knee Left 3 Views Prashant Blanc DO [address] [place] [address] Phone: tel: fax: [address] [address] Referral ID Status Reason Start Date Expiration Date Visits Re quested Visits Authorized [id number] Closed 07/27/2020 08/26/2021 1 1 * Diagnostic Imaging (Routine) - Closed Specialty Diagnoses / Procedures Referred By Wilfred kirkland Referred To Contact Diagnoses Right knee pain, unspecified chronicity Procedures XR Knee Right 3 Views Prashant Blanc DO [address] [place] [address] Phone: tel: fax: [address] [place] [address] Referral ID Status Reason Start Date Expiration Date Visits Re quested Visits Authorized [id number] Closed 07/27/2020 08/26/2021 1 1 Encounter Details Date Type Department Care Team (Late st Contact Info) Description 07/27/2020 2:37 PM CDT Hospital Encounter [facility] INTERIM Prashant Blanc DO [address] [facility] [address] [address] Right knee pain, unspecified chronicity; Left knee pain, unspecified chronicity Social History Tobacco Use Types Packs/Day Years [...] points, staff should administer the PHQ-9) 0 06/23/2020 Comments No Sex and Gender Information Value Date Recorded Sex Assigned at Not on file Legal Sex Female 7:50 PM CDT Gender Identity Female 11/23/2020 10:23 AM CDT Sexual Orientation Straight 11/23/2020 10 :23 AM CDT documented as of this encounter Medications at Time of Discharge ferrous sulfate 325 mg (65 mg of elemental iron) tabletIndications: Iron Deficiency Anemia Take 1 tablet (325 mg total) by mouth daily with breakfast phentermine (ADIPEX-P) 37.5 mg tablet Take 1 tablet (37.5 mg total) by mouth daily before breakfast 30 tablet 1 06/28/2020 amLODIPine (NORVASC) 5 mg tabletIndications: Essential hypertension Take 1 tablet (5 mg total) by mouth daily 90 tablet 2 03/28/2020 3 furosemide (LASIX) 40 mg tabletIndications: Lymphedema of right lower extremity,Essentia l hypertension Take 1 tablet (40 mg total) by mouth daily 90 tablet 2 03/28/2020 4 HYDROcodone-acetam inophen (NORCO) 10-325 mg per tabletIndications: Pain Take 1 tablet by mouth every 6 (six) hours as needed for pain 90 tablet 08/23/2020 1 lisinopriL (PRINIVIL,ZESTRIL) 10 mg tabletIndications: Essential hypertension Take 1 tablet (10 mg total) by mouth daily 90 tablet 2 03/28/2020 4 metoprolol XL (TOPROL-XL) 25 mg extended release tabletIndications: Essential hypertension Take 1 tablet (25 mg total) by mouth daily 90 tablet 2 03/28/2020 4 rivaroxaban (XARELTO) 20 mg tabletIndications: History of DVT (deep vein thrombosis) Take 1 tablet (20 mg total) by mouth daily 90 tablet 2 03/28/2020 4 zolpidem (AMBIEN) 10 mg tabletIndications: Primary insomnia TAKE 1 TABLET(10 MG) BY MOUTH EVERY NIGHT 30 tablet 3 04/28/2020 1 documented as of this encounter Plan of Treatment Not on file documented as of this encounter Procedures Procedure Name Priority Date/Time Associated Diagnosis Comments XR KNEE RIGHT 3 VIEWS Schedule Routine, Read Routine (OP Routine) 07/27/2020 2:38 PM CDT Right knee pain, unspecified chronicity XR KNEE LEFT 3 VIEWS Schedule Routine, Read Routine (OP Routine) 07/27/2020 2:38 PM CDT Left knee pain, unspecified chronicity documented in this encounter Results * XR Knee Left 3 Views (07/27/2020 2:38 PM CDT) Anatomical Region Laterality Modality Lower Extremities, Knee Left [facility] 07/28/2020 8:54 AM CDT Narrative 07/28/2020 8:54 AM CDT Patient Name: ENEIDA HAN ?Ordering Dr: Prashant Blanc DO ?? D.O.B: 1970 ? Exam Date: 07/27/20 ?? 1438 ?? Age: 49 ?Sex: Female ? MR#: [id number] ?? Loc: ? RADIOLOGY REPORT ?? Order #[id number] ?? Radiology ? Knee LT 3 View (STANDARD) ? Signed ?? EXAM DESCRIPTION: ? Knee LT 3 View (STANDARD) ? REASON FOR STUDY: ?? General knee pain worse for 1 year, no injury ? TECHNIQUE: ?? 3 total radiographic views acquired of the left knee. ? COMPARISON: ?? None ? FINDINGS: ? BONES/JOINTS: ??No acute fracture, malalignment or osseous abnormalities. ? Severe osteoarthritic changes left knee ? SOFT TISSUES: ??Unremarkable. ? OTHER: ??No other significant finding. ? IMPRESSION: ?? Severe osteoarthritic changes ? THIS IS AN ELECTRONICALLY VERIFIED FINAL REPORT ?? 07/28/2020 8:54 AM - Electronically signed by Rock Rivera M.D. ?? Rock Rivera M.D. ? [place] ?? D: ??07/28/2020 8:54 AM ?? T: ? Report ID: [id number] ?? Reading Location: ??[id number] ? REPORT ELECTRONICALLY SIGNED IN OTHER VENDOR SYSTEM ?? Resulting Agency Comment O Procedure Note Rock Rivera MD - 07/28/2020 Patient Name: ENEIDA HAN Dr: Prashant Blanc DO D.O.B: 1970 Exam Date: 07/27/201437 Age: 49 Sex: Female MR#: [id number] [id number] Order #[id number] Radiology Knee LT 3 View (STANDARD) Signed EXAM DESCRIPTION: Knee LT 3 View (STANDARD) REASON FOR STUDY: General knee pain worse for 1 year, no injury TECHNIQUE: 3 total radiographic views acquired of the left knee. COMPARISON: None FINDINGS: BONES/JOINTS: No acute fracture, malalignment or osseous abnormalities. Severe osteoarthritic changes left knee SOFT TISSUES: Unremarkable. OTHER: No other significant finding. IMPRESSION: Severe osteoarthritic changes THIS IS AN ELECTRONICALLY VERIFIED FINAL REPORT 07/28/2020 8:54 AM - Electronically signed by Rock Rivera M.D. [place] T: Report ID: [id number] Reading Location: [place] [address] REPORT ELECTRONICALLY SIGNED IN OTHER VENDOR SYSTEM Prashant Blanc DO IM XR PROCEDURES Final Result * XR Knee Right 3 Views (07/27/2020 2:38 PM CDT) Anatomical Region Laterality Modality Lower Extremities, Knee Right Radiogra phic Imaging 07/28/2020 8:41 AM CDT Narrative 07/28/2020 8:54 AM CDT Patient Name: ENEIDA HAN ?Ordering Dr: Prashant Blanc DO ?? D.O.B: 1970 ? Exam Date: 07/27/20 ?? 1438 ?? Age: 49 ?Sex: Female ? MR#: [id number] ?? Loc: ? RADIOLOGY REPORT ?? Order #[id number] ?? Radiology ? Knee RT 3 View (STANDARD) ? Signed ?? EXAM DESCRIPTION: ?Knee RT 3 View (STANDARD) ? REASON FOR STUDY: ?? General knee pain worse for 1 year, no injury ? TECHNIQUE: ?? 3 total radiographic views acquired of the right knee. ? COMPARISON: ?? None ? FINDINGS: ? BONES/JOINTS: ??No acute fracture, malalignment or osseous abnormalities. ?? Moderate to severe osteoarthritic changes. ? SOFT TISSUES: ??Unremarkable. ? OTHER: ??No other significant finding. ? IMPRESSION: ?? Moderate to severe osteoarthritic changes ? THIS IS AN ELECTRONICALLY VERIFIED FINAL REPORT ?? 07/28/2020 8:54 AM - Electronically signed by Rock Rivera M.D. ?? Rock Rivera M.D. ? [place] ?? D: ??07/28/2020 8:54 AM ?? T: ? Report ID: [id number] ?? Reading Location: ??[id number] ? REPORT ELECTRONICALLY SIGNED IN OTHER VENDOR SYSTEM ?? Resulting Agency Comment O Procedure Note Rock Rivera MD - 07/28/2020 Patient Name: ENEIDA HAN Nathan Dr: Prashant Blanc DO D.O.B: 1970 Exam Date: 07/27/20 143 Age: 49 Sex: Female MR#: [id number] [id number] Order #[id number] Radiology Knee RT 3 View (STANDARD) Signed EXAM DESCRIPTION: Knee RT 3 View (STANDARD) REASON FOR STUDY: General knee pain worse for 1 year, no injury TECHNIQUE: 3 total radiographic views acquired of the right knee. COMPARISON: None FINDINGS: BONES/JOINTS: No acute fracture, malalignment or osseous abnormalities. Moderate to severe osteoarthritic changes. SOFT TISSUES: Unremarkable. OTHER: No other significant finding. IMPRESSION: Moderate to severe osteoarthritic changes THIS IS AN ELECTRONICALLY VERIFIED FINAL REPORT 07/28/2020 8:54 AM - Electronically signed by Rock Rivera M.D. [place] T: Report ID: [id number] Reading Location: [id number] REPORT ELECTRONICALLY SIGNED IN OTHER VENDOR SYSTEM Prashant Blanc DO IMG XR PROCEDURES Final Result documented in this encounter Visit Diagnoses Diagnosis Right knee pain, unspecified chronicity Left knee pain, unspecified chronicity documented in this encounter Care Teams Dog Or Animal Sitter Relationship Specialty Start Date End Date Haritha Tse NP PCP - General Internal Medicine 03/28/20 10/29/22 documented as of this encounter
--- OUTSIDE RECORDS SUMMARY | 2024-03-24 18:54 | XMS_ITS | Encounter Summary ---
Author Organization [facility] Address [address] [address] Care Team Providers Care Masonry Teacher Name Role Phone Haritha Tse NP Primary Care Provider [phone] Encounter Details Date Type Department Care Team (Late st Contact Info) Description 10/18/2022 9:20 AM CDT Ancillary Procedure [facility] Imaging at [address] [address] Social History Tobacco Use Types [...] Priority Date/Time Associated Diagnosis Comments XR KNEE BILATERAL 4 OR MORE VIEWS Schedule Routine, Read Routine (OP Routine) 10/18/2022 9:44 AM CDT Primary osteoarthritis of both knees documented in this encounter Results * XR Knee Bilateral 4 or More Views (10/18/2022 9:44 AM CDT) Anatomical Region Laterality Modality Lower Extremities, Knee Digital Radiography Narrative 10/18/2022 9:44 AM CDT Four views of bilateral knees are negative for fracture dislocation or osseous intra-articular lesions. ??The right knee demonstrates soft tissue calcifications noted in the anterior joint and the posterior soft tissue in the lower leg. Advanced arthritic changes are noted bilaterally with end-stage changes and [id number] changes noted in all compartments of the knees with bilateral large osteophytes also noted. ??Large effusion noted on the right leg. us Kaiser Nielson MD IMG XR PROCEDURES Edited Res ult - Final documented in this encounter Visit Diagnoses Not on filedocumented in this encounter Care Teams Masonry Teacher Relationship Specialty Start Date End Date Haritha Tse NP PCP - General Internal Medicine 03/28/20 10/29/22 documented as of this encounter
--- OUTSIDE RECORDS SUMMARY | 2024-03-24 18:54 | XMS_ITS | Encounter Summary ---
Author Organization [facility] Address [address] [place] [address] Care Team Providers Care Cascara Bark Cutter Name Role Phone Haritha Tse NP Primary Care Provider [phone] Reason for Visit * Reason Comments Follow-up ER F/u - GI bleed Co litis- 08/16/2020 - Cipro and Flagyl Encounter Details Date Type Department Care Team (Late st Contact Info) Description 08/23/2020 11:15 AM CDT Office Visit [facility] Internal Medicine [address] [place] [id number] Haritha Tse MOP MACHINE OPERATOR [address] [place] [address] Epigastric pain (Primary Dx); Morbid obesity with BMI of 45.0-49.9, adult (CMS/HCC); Lymphedema Social History Tobacco Use Types Packs/Day Years [...] points, staff should administer the PHQ-9) 0 08/23/2020 Comments No Sex and Gender Information Value Date Recorded Sex Assigned at Not on file Legal Sex Female 7:50 PM CDT Gender Identity Female 11/23/2020 10:23 AM CDT Sexual Orientation Straight 11/23/2020 10 :23 AM CDT documented as of this encounter Last Filed Vital Signs Vital Sign Reading Time Taken Comments Blood Pressure 126/82 08/23/2020 11:06 AM CDT Pulse 87 08/23/2020 11:06 AM CDT Temperature 36.6 ??C (97.8 ??F) 08/23/2020 11:06 AM C DT Respiratory Rate 18 08/23/2020 11:06 AM CDT Oxygen Saturation 98% 08/23/2020 11:06 AM CDT Inhaled Oxygen Concentration - - Weight 144.7 kg (319 lb) 08/23/2020 11:06 AM CDT Height 170.2 cm (5' 7 ) 08/23/2020 11:06 AM CDT Body Mass Index 49.96 08/23/2020 11:06 AM CDT documented in this encounter Patient Instructions * Patient Instructions* Haritha Tse NP - 08/23/2020 11:15 AM CDT Start omeprazole 40 mg daily. Monitor dietary intake. Notify the office should you have any additional blood in your stool documented in this encounter Ordered Prescriptions Prescription Sig Dispense Quantity Refills Last Filled Start Date End Date HYDROcodone-acetam inophen (NORCO) 10-325 mg per tabletIndications: Pain Take 1 tablet by mouth every 6 (six) hours as needed for pain 90 tablet 08/23/2020 omeprazole (PriLOSEC) 40 mg capsuleIndications :Epigastric pain Take 1 capsule (40 mg total) by mouth daily 30 capsule 11 08/23/2020 4 documented in this encounter Progress Notes * Haritha Tse, MOP MACHINE OPERATOR - 08/23/2020 11:15 AM CDT Subjective/Objective Patient ID: Tiarra Addison is a 49 y.o. female. Visit Date: 08/23/2020 Chief Complaint Follow-up (ER F/u - GI bleed Colitis- 08/16/2020 - Cipro and Flagyl ) HPI 49-year-old female in for ER follow-up on 08/16/2020. Patient did have blood in her stool for 4-5 days. She is currently on Xarelto. She states that she did not have pain but did have some constipation associated prior to the bleeding. Her hemoglobin and hematocrit were normal in the emergency department. She denies any blood in her stool at this time. She does complain of epigastric pain. Patient was educated on decreasing alcohol consumption in trying to decrease stress. She voices understanding Review of Systems Constitutional: Negative for activity change, chills and fatigue. HENT: Negative for congestion, ear pain, nosebleeds, rhinorrhea and sinus pressure. Respiratory: Negative for cough and shortness of breath. Cardiovascular: Negative for chest pain and palpitations. Gastrointestinal: Positive for abdominal pain (Epigastric pain). Endocrine: Negative for cold intolerance. Genitourinary: Negative for difficulty urinating and hematuria. Musculoskeletal: Negative for back pain and myalgias. Neurological: Negative for dizziness, weakness and headaches. Psychiatric/Behavioral: Negative for agitation, confusion and sleep disturbance. Physical Exam Constitutional: Appearance: Normal appearance. She is well-developed. She is obese. HENT: Head: Normocephalic and atraumatic. Right Ear: Tympanic membrane normal. Left Ear: Tympanic membrane normal. Eyes: Pupils: Pupils are equal, round, and reactive to light. Cardiovascular: Rate and Rhythm: Normal rate and regular rhythm. Heart sounds: Normal heart sounds. Pulmonary: Effort: Pulmonary effort is normal. Breath sounds: Normal breath sounds. Abdominal: General: Bowel sounds are normal. There is no distension. Palpations: Abdomen is soft. Tenderness: There is abdominal tenderness (Epigastric tenderness with palpation). Musculoskeletal: General: Tenderness (Chronic right lower extremity tenderness with palpation due to lymphedema) present. Normal range of motion. Cervical back: Normal range of motion and neck supple. Skin: General: Skin is warm and dry. Capillary Refill: Capillary refill takes less than 2 seconds. Findings: No rash. Neurological: Mental Status: She is alert and oriented to person, place, and time. Psychiatric: Behavior: Behavior normal. Thought Content: Thought content normal. Assessment/Plan Diagnoses and all orders for this visit: Epigastric pain (R10.13) (Primary) Comments: Start omeprazole 40 mg daily. Monitor dietary intake. Notify the office should you have any additional blood in your stool Orders: - omeprazole (PriLOSEC) 40 mg capsule; Take 1 capsule (40 mg total) by mouth daily Morbid obesity with BMI of 45.0-49.9, adult (CMS/HCC) (E66.01, Z68.42) Comments: Continue to diet and exercise as tolerated. You are currently down 10 lb since her last visit Lymphedema (I89.0) Comments: Continue [place] 01/08/2025 up to 3 times daily for severe pain associated with lymphedema Orders: - HYDROcodone-acetaminophen (NORCO) 10-325 mg per tablet; Take 1 tablet by mouth every 6 (six) hours as needed for pain documented in this encounter Plan of Treatment Not on file documented as of this encounter Visit Diagnoses Diagnosis Epigastric pain- Primary Abdominal pain, epigastric Morbid obesity with BMI of 45.0-49.9, adult ([facility]) Lymphedema Other noninfectious lymphedema documented in this encounter Discontinued Medications Medication Sig Discontinue Reason Start Date End Da te HYDROcodone-acetaminophe n (NORCO) 10-325 mg per tabletIndications:Pain Take 1 tablet by mouth every 6 (six) hours as needed for pain Reorder 08/23/2020 08/23/2020 documented as of this encounter Historical Medications * This list may reflect changes made after this encounter. metroNIDAZOLE (FLAGYL) 500 mg tablet TAKE 1 TABLET BY MOUTH EVERY 12 HOURS FOR 10 DAYS 08/16/2020 11/25/2020 ciprofloxacin (CIPRO) 500 mg tablet TAKE 1 TABLET BY MOUTH EVERY 12 HOURS FOR 10 DAYS 08/16/2020 11/25/2020 added in this encounter Care Teams Cascara Bark Cutter Relationship Specialty Start Date End Date Haritha Tse NP PCP - General Internal Medicine 03/28/20 10/29/22 documented as of this encounter
--- OUTSIDE RECORDS SUMMARY | 2024-03-24 18:54 | XMS_ITS | Encounter Summary ---
Author Organization [facility] Healthcare Address [address] [place] [address] Care Team Providers Care Institutional Asset Manager Name Role Phone Haritha Tse NP Primary Care Provider [phone] Encounter Details Date Type Department Care Team (Late st Contact Info) Description 04/18/2020 10:37 AM ADOPTION WORKER Hospital Encounter [facility] OP INTERIM Karla Suresh MD [address] [place], [place] [id number] Haritha Tse NP [address] [facility] [address] [place], [place] [id number] Social History Tobacco Use Types Packs/Day Years [...] mg total) by mouth daily with breakfast potassium chloride ER (potassium chloride ER) 10 mEq CR tabletIndications: Essential hypertension Take 1 tablet/capsule (10 mEq total) by mouth daily 90 tablet/capsule 2 03/28/2020 1 amLODIPine (NORVASC) 5 mg tabletIndications: Essential hypertension Take 1 tablet (5 mg total) by mouth daily 90 tablet 2 03/28/2020 3 furosemide (LASIX) 40 mg tabletIndications: Lymphedema of right lower extremity,Essentia l hypertension Take 1 tablet (40 mg total) by mouth daily 90 tablet 2 03/28/2020 4 HYDROcodone-acetam inophen (NORCO) 7.5-325 mg per tabletIndications: Pain in right leg Take 1 tablet by mouth every 8 (eight) hours as needed for pain 90 tablet 03/29/2020 1 lisinopriL (PRINIVIL,ZESTRIL) 10 mg tabletIndications: Essential [...] zolpidem (AMBIEN) 10 mg tabletIndications: Primary insomnia Take 1 tablet (10 mg total) by mouth nightly 30 tablet 1 03/28/2020 1 documented as of this encounter Plan of Treatment Not on file documented as of this encounter Procedures Procedure Name Priority Date/Time Associated Diagnosis Comments US VEIN DUPLEX LOWER EXTREMITY RIGHT LIMITED 04/18/2020 12:00 AM ADOPTION WORKER documented in this encounter Results * US Vein Duplex Lower Extremity Right Limited (04/18/2020 12:00 AM ADOPTION WORKER) Anatomical Region Laterality Modality Vascular Right Ultrasound 04/20/2020 12:2 3 PM ADOPTION WORKER Narrative 04/20/2020 1:39 PM ADOPTION WORKER ? Patient Name: ENEIDA HAN ? MR#: [id number] ?? [id number] ? Status: REG CLI ? D.O.B: 1970 Age: ??49 ?Sex: Female ? ADM/SER Dt: 04/18/20 ?Disch Dt: ? LOC: H.LAB ? Ordering Phy: Karla Suresh MD ? Order #[id number] ? Venous Dop/Duplex Right Leg ?? Karla Suresh MD ? Signed ?? DATE OF SERVICE: ?? 04/18/2020 ? REASON FOR EXAM: ??Edema and increased swelling of the right leg. ? RIGHT-SIDED FINDINGS: ??Right common femoral, superficial femoral, popliteal, posterior tibial, peroneal and greater saphenous veins were identified. ??This is a limited study given that the posterior tibial and peroneal veins were poorly visualized, but the patient had decreased spontaneity, phasicity, and compressibility of the common femoral, superficial femoral and popliteal veins consistent with a prior DVT in these veins. ??No acute deep vein thrombosis was seen. ? LEFT-SIDED FINDINGS: ??Left common femoral vein was identified and noted to be spontaneous, phasic, and compressible consistent with no acute or chronic DVT of the left common femoral vein. ? OVERALL IMPRESSION: ??Previous thrombosis of the right lower extremity and no acute or chronic DVT of the left common femoral vein. ? NTS ? Job: [id number] ? Dictated By: Karla Suresh MD ?? Dictated For: Karla ??MD Kerwin ? <Electronically signed by Kerwin Brown M.D> ? 04/20/20 1349 ?? Resulting Agency Comment O Procedure Note Karla Suresh MD - 04/20/2020 Patient Name: ENEIDA HAN Vik #: [id number] Status: REG CLI D.O.B: 1970 Age: 49Sex: Female ADM/SER Dt: 04/18/20 Disch Dt:LOC: H.LAB Ordering Phy: Karla Suresh MD Order #[id number] Venous Dop/Duplex Right Leg Karla Suresh MD Signed DATE OF SERVICE: 04/18/2020 REASON FOR EXAM: Edema and increased swelling of the right leg. RIGHT-SIDED FINDINGS: Right common femoral, superficial femoral,popliteal, posterior tibial, peroneal and greater saphenous veins were identified. This is a limitedstudy given that the posterior tibial and peroneal veins were poorly visualized, but thepatient had decreased spontaneity, phasicity, and compressibility of the common femoral,superficial femoral and popliteal veins consistent with a prior DVT in these veins. No acute deep veinthrombosis was seen. LEFT-SIDED FINDINGS: Left common femoral vein was identified and notedto be spontaneous, phasic, and compressible consistent with no acute or chronic DVT of the leftcommon femoral vein. OVERALL IMPRESSION: Previous thrombosis of the right lower extremity andno acute or chronic DVT of the left common femoral vein. NTS Job: [id number] Dictated By: Karla Suresh MD Dictated For: Karla Suresh MD <Electronically signed by Kerwin Brown M.D> 04/20/20 1349 us Karla Suresh MD IMG US PROCEDURES Final Result documented in this encounter Visit Diagnoses Not on filedocumented in this encounter Care Teams Institutional Asset Manager Relationship Specialty Start Date End Date Haritha Tse NP PCP - General Internal Medicine 03/28/20 10/29/22 documented as of this encounter
--- OUTSIDE RECORDS SUMMARY | 2024-03-24 18:54 | XMS_ITS | Encounter Summary ---
Author Organization [facility] Healthcare Address [address] [place] [address] Care Team Providers Care Breading Machine Tender Name Role Phone Haritah Tse NP Primary Care Provider [phone] Encounter Details Date Type Department Care Team (Late st Contact Info) Description 08/26/2023 Telephone [facility] Medical Group Internal Medicine at [place] [address] [place] [address] Haritha Tse NP [address] [place] [address] Social History Tobacco Use Types [...] points, staff should administer the PHQ-9) 1 03/15/2023 Comments No Sex and Gender Information Value Date Recorded Sex Assigned at Not on file Legal Sex Female 7:50 PM CDT Gender Identity Female 11/23/2020 10:23 AM CDT Sexual Orientation Straight 11/23/2020 10 :23 AM CDT documented as of this encounter Miscellaneous Notes * Telephone Encounter - Kristin Singh MA - 08/26/2023 11:06 AM CDT Left voice mail message to call and set up appt. before any refills on medications. documented in this encounter Plan of Treatment Not on file documented as of this encounter Visit Diagnoses Not on filedocumented in this encounter Care Teams Breading Machine Tender Relationship Specialty Start Date End Date Haritha Tse NP [address] [facility] [address] [place] [address] PCP - General Internal Medicine 10/30/22 documented as of this encounter
--- OUTSIDE RECORDS SUMMARY | 2024-03-24 18:54 | XMS_ITS | Encounter Summary ---
Author Organization [facility] Address [address] [address] Care Team Providers Care Core Setter Name Role Phone Haritha Tse NP Primary Care Provider [phone] Reason for Referral * Procedure (Routine) - Closed Specialty Diagnoses / Procedures Referred By Contac t Referred To Contact Diagnoses Primary osteoarthritis of both knees Procedures Large Joint (Hip, Knee, Shoulder) Injection: R knee Gianni Kc PA [address] [place] [address] [address] [place] [address] Phone: tel: fax: [facility] Referral ID Status Reason Start Date Expiration Date Visits Re quested Visits Authorized [id number] Closed 10/18/2022 11/17/2023 1 1 * Diagnostic Imaging (Routine) - Closed Specialty Diagnoses / Procedures Referred By Contac t Referred To Contact Diagnoses Pain in both knees, unspecified chronicity Procedures XR Pelvis 1 or 2 Views Kaiser Nielson MD [address] [facility] [address] [place] [address] Phone: tel: fax: [facility] Referral ID Status Reason Start Date Expiration Date Visits Re quested Visits Authorized [id number] Closed 10/18/2022 11/17/2023 1 1 Reason for Visit * Reason Comments Pain Pain Encounter Details Date Type Department Care Team (Late st Contact Info) Description 10/18/2022 9:00 AM CDT Office Visit [facility] Orthopedic and Sports Medicine [address] [place] [id number] Gianni Kc PA [address] [place] [address] [address], [place] [address] Primary osteoarthritis of both knees (Primary Dx); Morbid obesity (HCC); BMI 50.0-59.9, adult (HCC) Social History Tobacco Use Types Packs/Day [...] Sign Reading Time Taken Comments Blood Pressure 118/81 10/18/2022 10:26 AM CDT Pulse 72 10/18/2022 10:26 AM CDT Temperature - - Respiratory Rate - - Oxygen Saturation - - Inhaled Oxygen Concentration - - Weight 137.9 kg (304 lb) 10/18/2022 10:26 AM CDT Height 170.2 cm (5' 7 ) 10/18/2022 10:26 AM CDT Body Mass Index 47.61 10/18/2022 10:26 AM CDT documented in this encounter Progress Notes * Gianni Kc PA - 10/18/2022 9:00 AM CDTAssociated Order(s): Large Joint (Hip, Knee, Shoulder) Injection: R knee Post-Procedure Diagnose(s): Primary osteoarthritis of both knees Images from the original note were not included. NEW PATIENT VISIT Subjective CHIEF COMPLAINT She had no chief complaint listed for this encounter. HISTORY OF PRESENT ILLNESS Patient is a 51-year-old female here today for evaluation of bilateral knee pain. Patient has had bilateral knee pain for several years. She was under the care of an orthopedic provider in the [facility] several years ago prior to moving to [facility]. She was treated in [place] by Orthopedics as well as pain management. She is chronically on hydrocodone for her knee pain. When she was in [place] she underwent a geniculate nerve block which was unsuccessful and therefore they did not proceed with the ablation. She did receive injections in the past and these helped her somewhat, she thinks that she got about 1 month of pain relief. Her last injection was approximately 6 mon ths ago. Up until about 3-4 weeks ago whenever she completed her move back to the [facility] she was walking independently without any assistance. Now her right knee pain has become so severe that she is reliant on a walker or wheelchair at all times. She is currently in the process of becoming established with a primary care physician in a pain management provider in the area. PAST MEDCIAL HISTORY She has a past medical history of Cellulitis, CHF (congestive heart failure) (CMS/HCC) ([facility]), DVT (deep venous thrombosis) (CMS/HCC) ([facility]), DVT (deep venous thrombosis) (CMS/HCC) ([facility]), Hypertension,Lymph edema, and Primary osteoarthritis of knees, bilateral. PAST SURGICAL HISTORY She has a past surgical history that includes Gastric bypass; section; and Carotid stent. MEDICATIONS She has a current medication list which includes the following prescription(s): amlodipine, ferroussulfate, furosemide, hydrocodone-acetaminophen, lisinopril, metoprolol xl, omeprazole, rivaroxaban,sucralfate, and zolpidem. ALLERGIES She has No Known Allergies. SOCIAL HISTORY She reports that she has never smoked. She has never used smokeless tobacco. She reports current drug use. Drug: Hydrocodone. Patient denies consuming alcoholic drinks. FAMILY HISTORY Her family history includes Diabetes in her father and mother; Hypertension in her father and mother. REVIEW OF SYSTEMS Review of Systems Constitutional: Negative for chills, fatigue and fever. HENT: Negative for sore throat. Respiratory: Negative for cough and shortness of breath. Cardiovascular: Negative for chest pain. Gastrointestinal: Negative for constipation, nausea and vomiting. Musculoskeletal: Positive for arthralgias and joint swelling. Neurological: Negative for dizziness, light-headedness and headaches. Objective PHYSICAL EXAM There were no vitals taken for this visit. Right knee Inspection Swelling: moderate Skin temperature: normal Alignment: varus Gait: antalgic Palpation Tenderness: present. The tenderness is located in the condyle. Crepitus: positive Range of motion The patient has normal range of motion of the right knee. Active extension: 15 Active flexion: 86-90 Flexion contracture: yes. Stability AP stability: stable ML stability: stable Strength Knee extension: 4/5 Knee flexion: 4/5 Neurovascular The patient has normal vascular on the right side of their body. The patient has normal sensation on the right side of their body. Comments: Significant bilateral lower extremity edema noted secondary to lymphedema. Left knee Inspection Swelling: moderate Effusion: absent Skin temperature: normal Alignment: varus Gait: antalgic Palpation Tenderness: present. The tenderness is located in the condyle, medial joint line and lateral joint line. Crepitus: positive Range of motion The patient has reduced range of motion of the left knee. Active extension: 0 Active flexion: 96-100 Flexion contracture: yes. Stability AP stability: stable ML stability: stable Strength Knee extension: 4/5 Knee flexion: 4/5 Neurovascular The patient has normal vascular on the left side of their body. The patient has normal sensation on the left side of their body. REVIEW OF X-RAYS/STUDIES/LABS XR Knee Bilateral 4 or More Views Four views of bilateral knees are negative for fracture dislocation or osseous intra-articular lesions. The right knee demonstrates soft tissue calcifications noted in the anterior joint and the posterior soft tissue in the lower leg. Advanced arthritic changes are noted bilaterally with end-stage changes and [id number] changes noted in all compartments of the knees with bilateral large osteophytes also noted. Large effusion noted on the right leg. XR Pelvis 1 or 2 Views X-ray of the pelvis viewed and interpreted. There is no evidence of fracture, subluxation. There isno aggressive bone lesion. There is no radiopaque foreign body associated with the hip joints. The pelvis shows postsurgical clips from previous procedure. There are mild arthritic changes noted on the right and more moderate changes noted on the left degenerative changes. Assessment/Plan Diagnoses and all orders for this visit: Primary osteoarthritis of both knees - XR Knee Bilateral 4 or More Views - XR Pelvis 1 or 2 Views Morbid obesity (HCC) BMI 50.0-59.9, adult (HCC) Large Joint (Hip, Knee, Shoulder) Injection: R knee Performed by: Gianni Kc PA Authorized by: Gianni Kc PA Large Joint Injection/Aspiration: Consent Given by: Patient Timeout: prior to procedure the correct patient, procedure, and site was verified Verbal consent obtained: Yes Supporting Documentation: Indications: Pain Procedure Details: Location: Knee Site: R knee Prep: patient was prepped using a clean technique Needle Size: 18 G Approach: Superior lateral Medications: 2 mL lidocaine 20 mg/mL (2 %); 80 mg methylPREDNISolone acetate 80 mg/mL Aspirate amount (mL): 5 Aspirate: Clear and blood-tinged Patient tolerance: Patient tolerated the procedure well with no immediate complications PLAN I reviewed x-ray and exam findings today with the patient to discuss her treatment options. At thistime based on her body habitus and her history of blood clots as well as lymphedema in the lower extremities she is not a candidate for knee arthroplasty. Today we proceeded with a aspiration and injection of the right knee. Unfortunately the aspiration was not as successful as we hoped due to the bloody nature of the aspirate, it appears that she has a hemarthrosis. She did tolerate the procedure well. Post-injection instructions provided the patient. She was encouraged to aggressively ice and use compression to the knee to help with the resolution of her effusion which is considerably altering her ability to perform range of motion as well as increasing her pain at this time. She will continue to use pain medication at the discretion of her previous pain management providerand she is encouraged to reestablish this with 1 of her new providers whether this be her PCP or her new pain management provider she gets established with in the area. I will plan to see her in 3 months for re- evaluation and we will likely do a 3 months scheduled injection while she is continue zenaida optimized and works towards the goal of a knee arthroplasty in the future. DENNISE Cristobal Cosigned by Kaiser Nielson MD at 10/25/2022 11:50 AM CDT documented in this encounter Plan of Treatment Not on file documented as of this encounter Procedures Procedure Name Priority Date/Time Associated Diagnosis Comments XR KNEE BILATERAL 4 OR MORE VIEWS Schedule Routine, Read Routine (OP Routine) 10/18/2022 9:44 AM CDT Primary osteoarthritis of both knees XR PELVIS 1 OR 2 VIEWS Schedule Routine, Read Routine (OP Routine) 10/18/2022 9:42 AM CDT Primary osteoarthritis of both knees CO ARTHROCENTESIS ASPIR&/INJ MAJOR JT/BURSA W/O US Routine 10/18/2022 9:00 AM CDT Primary osteoarthritis of both knees [...] are noted bilaterally with end-stage changes and xeso-gb-htof changes noted in all compartments of the knees with bilateral large osteophytes also noted. ??Large effusion noted on the right leg. us Kaiser Nielson MD IMG XR PROCEDURES Edited Res ult - Final * XR Pelvis 1 or 2 Views [...] MD IMG XR PROCEDURES Final Resu lt * CO ARTHROCENTESIS ASPIR&/INJ MAJOR JT/BURSA W/O US (10/18/2022 9:00 AM CDT) Narrative Kaiser Nielson MD - 10/18/2022 9:00 AM CDT Gianni Kc PA ? 10/18/2022 ??1:12 PM Large Joint (Hip, Knee, Shoulder) Injection: R knee Performed by: Gianni Kc PA Authorized by: Gianni Kc PA ?? Large Joint Injection/Aspiration: ??Consent Given by: ??Patient ??Timeout: prior to procedure the correct patient, procedure, and site was verified ?Verbal consent obtained: Yes ?? Supporting Documentation: ??Indications: ??Pain Procedure Details: ??Location: ??Knee ??Site: ??R knee ??Prep: patient was prepped using a clean technique ?Needle Size: ??18 G ??Approach: ??Superior lateral ??Medications: ??2 mL lidocaine 20 mg/mL (2 %); 80 mg methylPREDNISolone acetate 80 mg/mL ??Aspirate amount (mL): ??5 ??Aspirate: ??Clear and blood-tinged ??Patient tolerance: ??Patient tolerated the procedure well with no immediate complications us Gianni BOWDEN IN CLINIC/BEDSIDE ORDERABLE S Final Result documented in this encounter Visit Diagnoses Diagnosis Primary osteoarthritis of both knees- Primary Morbid obesity (HCC) Morbid obesity BMI 50.0-59.9, adult (HCC) documented in this encounter Administered Medications Inactive Administered Medications - up to 3 most recent administrations Medication Order MAR Action Action Date Dose Rate Site lidocaine (XYLOCAINE) 20 mg/mL (2 %) injection 2 mL 2 mL, One-Time Injection, Starting on Amber 10/18/22 at 1311, For 1 dose, Indications: Administration of Local AnesthesiaIndications:Administ ration of Local Anesthesia Given 10/18/2022 1:11 PM CDT 2 mL Right Knee methylPREDNISolone acetate (DEPO-medrol) injection 80 mg 80 mg, intra-articular, One-Time Injection, Starting on Amber 10/18/22 at 1311, For 1 doseIndications:Primary osteoarthritis of both knees Given 10/18/2022 1:11 PM CDT 80 mg Right Knee documented in this encounter Care Teams Core Setter Relationship Specialty Start Date End Date Haritha Tse NP PCP - General Internal Medicine 03/28/20 10/29/22 documented as of this encounter
--- OUTSIDE RECORDS SUMMARY | 2024-03-24 18:54 | XMS_ITS | Encounter Summary ---
Author Organization [facility] Address [address] [place] [address] Care Team Providers Care Production Designer Name Role Phone Haritha Tse NP Primary Care Provider [phone] Reason for Visit * Reason Comments Follow-up 4 month f/u - Labs n ot done - ER visit in [place] - Ulcer abd pains X2 weeks ago Hypertension Congestive Heart Failure Hypothyroidism Encounter Details Date Type Department Care Team (Late st Contact Info) Description 11/25/2020 1:15 PM CDT Office Visit [facility] Internal Medicine [address] [place] [address] Haritha Tse NP [address] [place] [address] Pain in right leg (Primary Dx); Morbid obesity with BMI of 50.0-59.9, adult (CMS/HCC) (HCC) Social History Tobacco Use Types Packs/Day [...] Sign Reading Time Taken Comments Blood Pressure 140/84 11/25/2020 1:21 PM CDT Pulse 83 11/25/2020 1:21 PM CDT Temperature 36.3 ??C (97.4 ??F) 11/25/2020 1:21 PM CD T Respiratory Rate 18 11/25/2020 1:21 PM CDT Oxygen Saturation 95% 11/25/2020 1:21 PM CDT Inhaled Oxygen Concentration - - Weight 151 kg (333 lb) 11/25/2020 1:21 PM CDT Height 170.2 cm (5' 7 ) 11/25/2020 1:21 PM CDT Body Mass Index 52.16 11/25/2020 1:21 PM CDT documented in this encounter Ordered Prescriptions Prescription Sig Dispense Quantity Refills Last Filled Start Date End Date HYDROcodone-acetam inophen (NORCO) 10-325 mg per tabletIndications: Pain in right leg Take 1 tablet by mouth every 6 (six) hours as needed for pain 90 tablet 11/25/2020 10/30/2022 documented in this encounter Progress Notes * Haritah Tse, NON LICENSED OPERATOR - 11/25/2020 1:15 PM CDT Subjective/Objective Patient ID: Tiarra Addison is a 49 y.o. female. Visit Date: 11/25/2020 Chief Complaint Follow-up (4 month f/u - Labs not done - ER visit in [place] - Ulcer abd pains X2 weeks ago ), Hypertension, Congestive Heart Failure, and Hypothyroidism HPI 49-year-old female in for routine 4 month follow-up. Patient recently moved to [facility]. She does have a new primary care provider down there. She does need a refill of her pain medication Review of Systems Constitutional: Negative for activity change, chills and fatigue. HENT: Negative for congestion, ear pain, nosebleeds, rhinorrhea and sinus pressure. Respiratory: Negative for cough and shortness of breath. Cardiovascular: Positive for leg swelling. Negative for chest pain and palpitations. Gastrointestinal: Negative for abdominal pain. Endocrine: Negative for cold intolerance. Genitourinary: Negative for difficulty urinating and hematuria. Musculoskeletal: Negative for back pain and myalgias. Neurological: Negative for dizziness, weakness and headaches. Psychiatric/Behavioral: Negative for agitation, confusion and sleep disturbance. Physical Exam Constitutional: Appearance: She is well-developed. HENT: Head: Normocephalic and atraumatic. Eyes: Pupils: Pupils are equal, round, and reactive to light. Cardiovascular: Rate and Rhythm: Normal rate and regular rhythm. Heart sounds: Normal heart sounds. Pulmonary: Effort: Pulmonary effort is normal. Breath sounds: Normal breath sounds. Abdominal: General: Bowel sounds are normal. There is no distension. Palpations: Abdomen is soft. Musculoskeletal: General: No tenderness. Normal range of motion. Cervical back: Normal range of motion and neck supple. Right lower leg: Edema present. Skin: General: Skin is warm and dry. Capillary Refill: Capillary refill takes less than 2 seconds. Findings: No rash. Neurological: Mental Status: She is oriented to person, place, and time. Psychiatric: Behavior: Behavior normal. Thought Content: Thought content normal. Assessment/Plan Diagnoses and all orders for this visit: Pain in right leg (M79.604) (Primary) Comments: Pain medication as directed. Follow-up with new primary care physician for further pain medicine control Orders: - HYDROcodone-acetaminophen (NORCO) 10-325 mg per tablet; Take 1 tablet by mouth every 6 (six) hours as needed for pain Morbid obesity with BMI of 50.0-59.9, adult (CMS/HCC) ([facility]) (E66.01, Z68.43) Comments: Diet and exercise on a regular basis. Monitor caloric intake documented in this encounter Plan of Treatment Not on file documented as of this encounter Visit Diagnoses Diagnosis Pain in right leg- Primary Morbid obesity with BMI of 50.0-59.9, adult (HCC) documented in this encounter Discontinued Medications Medication Sig Discontinue Reason Start Date End Da te ciprofloxacin (CIPRO) 500 mg tablet TAKE 1 TABLET BY MOUTH EVERY 12 HOURS FOR 10 DAYS Therapy completed 08/16/2020 11/25/2020 metroNIDAZOLE (FLAGYL) 500 mg tablet TAKE 1 TABLET BY MOUTH EVERY 12 HOURS FOR 10 DAYS Therapy completed 08/16/2020 11/25/2020 HYDROcodone-acetaminophe n (NORCO) 10-325 mg per tablet Take by mouth every 6 (six) hours as needed Reorder 09/23/2020 11/25/2020 documented as of this encounter Historical Medications * This list may reflect changes made after this encounter. sucralfate (CARAFATE) suspension 1 gram/10 mL SHAKE LIQUID AND TAKE 1 ML BY MOUTH BEFORE MEALS AND AT BEDTIME 11/10/2020 03/15/2023 HYDROcodone-aceta minophen (NORCO) 10-325 mg per tablet Take by mouth every 6 (six) hours as needed 09/23/2020 11/25/2020 added in this encounter Care Teams Production Designer Relationship Specialty Start Date End Date Haritha Tse NP PCP - General Internal Medicine 03/28/20 10/29/22 documented as of this encounter
--- OUTSIDE RECORDS SUMMARY | 2024-03-24 18:54 | XMS_ITS | Encounter Summary ---
Author Organization [facility] Healthcare Address [address] [place] [id number] Care Team Providers Care Sawyer Helper Name Role Phone Haritha Tse NP Primary Care Provider [phone] Reason for Visit * Reason Comments Anxiety Wants to talk about anxietyAlso allergies eyes drainingWas just in hospital for blood in stool Encounter Details Date Type Department Care Team (Late st Contact Info) Description 10/08/2023 11:30 AM CDT Telemedicine [facility] Internal Medicine at [place] [address] [place] [address] Haritha Tse NP [address] [place] [address] Anxiety (Primary Dx); Rash; Morbid obesity with BMI of 45.0-49.9, adult (HCC) Social History Tobacco Use Types [...] - Inhaled Oxygen Concentration - - Weight 138.3 kg (305 lb) 10/08/2023 11:25 AM CDT Height 170.2 cm (5' 7 ) 10/08/2023 11:25 AM CDT Body Mass Index 47.77 10/08/2023 11:25 AM CDT documented in this encounter Patient Instructions * Patient Instructions* Haritha Tse NP - 10/08/2023 11:30 AM CDT Take medication as directed. Follow-up in 4 weeks or sooner as needed. Contact the office with any questions or concerns documented in this encounter Ordered Prescriptions Prescription Sig Dispense Quantity Refills Last Filled Start Date End Date hydrOXYzine (VISTARIL) 25 mg capsuleIndications :anxiety Take 1 capsule (25 mg total) by mouth 3 (three) times a day as needed for anxiety 90 capsule 1 10/08/2023 4 FLUoxetine (PROzac) 10 mg tablet/capsuleIndi cations:Anxiety with Depression Take 1 tablet/capsule (10 mg total) by mouth daily 30 capsule 10/08/2023 4 clobetasoL (TEMOVATE) 0.05 % creamIndications:S kin Inflammation Apply topically 2 (two) times a day 60 g 1 10/08/2023 4 documented in this encounter Progress Notes * Haritha Tse NP - 10/08/2023 11:30 AM CDT Images from the original note were not included. The patient has been informed that the visit may not be secure and acknowledged the information. Subjective/Objective Patient ID: Tiarra Addison is a 52 y.o. female. Assessment/Plan Diagnoses and all orders for this visit: Anxiety (Primary) Comments: Start Vistaril 25 mg up to 3 times daily as needed. Prozac 10 mg daily. Follow- up in 4 weeks or sooner as needed Orders: - FLUoxetine (PROzac) 10 mg tablet/capsule; Take 1 tablet/capsule (10 mg total) by mouth daily - hydrOXYzine (VISTARIL) 25 mg capsule; Take 1 capsule (25 mg total) by mouth 3 (three) times a dayas needed for anxiety Rash Comments: Continue to use clobetasol to rash that you have Morbid obesity with BMI of 45.0-49.9, adult (HCC) Comments: Diet and exercise on a regular basis as tolerated Assessment & Plan: Discussed the patient's BMI. The BMI is above average. BMI management plan is completed. BMI Follow-up includes: nutrition counseling, exercise counseling and education provided. Orders: - clobetasoL (TEMOVATE) 0.05 % cream; Apply topically 2 (two) times a day Chief Complaint Anxiety HPI: 52-year-old female via tele doc for complaints of being recently hospitalized from Saturday to Saturday. She was feeling faint at home with blood in her stool. She did not receive any transfusions. She did have a colonoscopy however. They did refer her to a brick shader. She does complain of recent anxiety as she is taking care of her mother who has dementia. Her father was recently diagnosed with pancreatic cancer. Will start on Prozac 10 mg daily. Vistaril 25 mg up to 3 times daily. Follow-up in 4 weeks Current Outpatient Medications Medication Sig Dispense Refill amLODIPine (NORVASC) 10 mg tablet Take 0.5 tablets (5 mg total) by mouth daily 90 tablet 0 furosemide (LASIX) 40 mg tablet Take 1 tablet (40 mg total) by mouth daily 90 tablet 2 lisinopriL (PRINIVIL,ZESTRIL) 10 mg tablet Take 1 tablet (10 mg total) by mouth daily 90 tablet 2 metoprolol XL (TOPROL-XL) 25 mg extended release tablet Take 1 tablet (25 mg total) by mouth daily 90 tablet 2 omeprazole (PriLOSEC) 40 mg capsule TAKE 1 CAPSULE (40 MG TOTAL) BY MOUTH DAILY. 90 capsule 0 oxyCODONE (ROXICODONE) 10 mg tablet Take 1 tablet (10 mg total) by mouth every 12 (twelve) hours 60tablet 0 zolpidem (AMBIEN) 10 mg tablet Take 1 tablet (10 mg total) by mouth nightly as needed for sleep 90 tablet 0 clobetasoL (TEMOVATE) 0.05 % cream Apply topically 2 (two) times a day 60 g 1 ferrous sulfate 325 mg (65 mg of elemental iron) tablet Take 1 tablet (325 mg total) by mouth dailywith breakfast (Patient not taking: Reported on 10/08/2023) FLUoxetine (PROzac) 10 mg tablet/capsule Take 1 tablet/capsule (10 mg total) by mouth daily 30 capsule 0 hydrOXYzine (VISTARIL) 25 mg capsule Take 1 capsule (25 mg total) by mouth 3 (three) times a day asneeded for anxiety 90 capsule 1 lisinopriL (PRINIVIL,ZESTRIL) 10 mg tablet Take 1 tablet (10 mg total) by mouth daily (Patient not taking: Reported on 10/08/2023) 30 tablet 0 polymyxin B-trimethoprim (POLYTRIM) ophthalmic solution Administer 2 drops into both eyes 4 (four) times a day 10 mL 0 No current facility-administered medications for this [...] Musculoskeletal: Negative for back pain and myalgias. Skin: Positive for rash. Neurological: Negative for dizziness, weakness and headaches. Psychiatric/Behavioral: Negative for agitation, confusion and sleep disturbance. The patient is nervous/anxious. Labs: No results found for this or any previous visit (from the past 1008 hour(s)). This was a telemedicine visit with Tiarra matta which took place via real-time video connection. During the visit, I was located in the office and the patient was located at home in the [facility]. The patient visit started at 1132 and ended at 1142. My total encounter time on 10/08/2023 was 10 minutes which was spent in the activities documented in the note. This includes time spent prior to the visit and after the visit in direct care of the patient. This time does not include time spent in any separately reportable services.. The [...] Haritha Tse NP documented in this encounter Miscellaneous Notes * Assessment & Plan Note - Kristin Singh MA - 10/08/2023 11:32 AM CDT Associated Problem(s): Morbid obesity with BMI of 45.0-49.9, adult (HCC) Discussed the patient's BMI. The BMI is above average. BMI management plan is completed. BMI Follow-up includes: nutrition counseling, exercise counseling and education provided. documented in this encounter Plan of Treatment Not on file documented as of this encounter Visit Diagnoses Diagnosis Anxiety- Primary Anxiety state, unspecified Rash Rash and other nonspecific skin eruption Morbid obesity with BMI of 45.0-49.9, adult (HCC) documented in this encounter Discontinued Medications Medication Sig Discontinue Reason Start Date End Da te rivaroxaban (XARELTO) 20 mg tabletIndications:Histo ry of DVT (deep vein thrombosis) Take 1 tablet (20 mg total) by mouth daily Therapy completed 04/22/2023 10/08/2023 clobetasoL (TEMOVATE) 0.05 % cream APPLY A THIN LAYER TO THE AFFECTED AREA(S) BY TOPICAL ROUTE 2 TIMES PER DAY Reorder 09/13/2021 10/08/2023 documented as of this encounter Historical Medications * This list may reflect changes made after this encounter. clobetasoL (TEMOVATE) 0.05 % cream APPLY A THIN LAYER TO THE AFFECTED AREA(S) BY TOPICAL ROUTE 2 TIMES PER DAY 09/13/2021 10/08/2023 added in this encounter Care Teams Sawyer Helper Relationship Specialty Start Date End Date Hartiha Tse NP [address] [place] [address] PCP - General Internal Medicine 10/30/22 documented as of this encounter
--- OUTSIDE RECORDS SUMMARY | 2024-03-24 18:54 | XMS_ITS | Encounter Summary ---
Author Organization [facility] Healthcare Address [address] [place] [address] Care Team Providers Care Cutting And Boning Supervisor Name Role Phone Haritha Tse CHARTERED WEALTH MANAGER Primary Care Provider [phone] Reason for Visit * Reason Comments Wellness Visit Encounter Details Date Type Department Care Team (Late st Contact Info) Description 09/05/2023 10:00 AM CDT Office Visit [facility] Internal Medicine at [place] [address] [place] [address] Haritha Tse, GAR[place]TT [address] [place] [address] Physical exam, annual (Primary Dx); Morbid obesity with BMI of 45.0-49.9, adult (HCC); chronic right knee pain; Primary hypertension; Gastroesophageal reflux disease without esophagitis Social History Tobacco Use Types Packs/Day Years [...] points, staff should administer the PHQ-9) 0 09/05/2023 Comments No Sex and Gender Information Value Date Recorded Sex Assigned at Not on file Legal Sex Female 7:50 PM CDT Gender Identity Female 11/23/2020 10:23 AM CDT Sexual Orientation Straight 11/23/2020 10 :23 AM CDT documented as of this encounter Last Filed Vital Signs Vital Sign Reading Time Taken Comments Blood Pressure 156/98 09/05/2023 9:58 AM CDT Pulse 76 09/05/2023 9:58 AM CDT Temperature 37 ??C (98.6 ??F) 09/05/2023 9:58 AM CDT Respiratory Rate - - Oxygen Saturation 99% 09/05/2023 9:58 AM CDT Inhaled Oxygen Concentration - - Weight 141.5 kg (312 lb) 09/05/2023 9:58 AM CDT Height 170.2 cm (5' 7 ) 09/05/2023 9:58 AM CDT Body Mass Index 48.87 09/05/2023 9:58 AM CDT documented in this encounter Patient Instructions * Patient Instructions* Haritha Tse NP - 09/05/2023 10:00 AM CDT [employer] physical and PAF completed today. Follow-up in 4 months or sooner as needed. Increase pain medication to oxycodone 10 mg twice daily. May take with Tylenol. documented in this encounter Ordered Prescriptions Prescription Sig Dispense Quantity Refills Last Filled Start Date End Date oxyCODONE (ROXICODONE) 10 mg tabletIndications: Pain Take 1 tablet (10 mg total) by mouth every 12 (twelve) hours 60 tablet 09/05/2023 10/05/2023 documented in this encounter Progress Notes * Haritha Tse NP - 09/05/2023 10:00 AM CDT Images from the original note were not included. Subjective/Objective Patient ID: Tiarra Addison is a 52 y.o. female. Visit Date: 09/05/2023 Chief Complaint Wellness Visit HPI 52-year-old female in for [facility] physical and [facility]. History of bilateral chronic knee pain. Unable to receive replacements as her weight is too much at this time. She is seeing weight management. Blood pressure elevated today at 156/98 as she forgot her medicine this morning. She does request an increase in pain medicine. She is currently on Percocet 5/325. Will increase to oxycodone 10 mg twice daily. Did discuss will not increase the amount but the dosage. She voices understanding Review of Systems Constitutional: [...] membrane normal. Left Ear: Tympanic membrane normal. Nose: Nose normal. Mouth/Throat: Mouth: Mucous membranes are moist. Eyes: Pupils: Pupils are equal, round, and reactive to light. Cardiovascular: Rate and Rhythm: Normal rate and regular rhythm. Heart sounds: Normal heart sounds. Pulmonary: Effort: Pulmonary effort is normal. Breath sounds: Normal breath sounds. Abdominal: General: Bowel sounds are normal. There is no distension. Palpations: Abdomen is soft. Musculoskeletal: General: Tenderness (Bilateral knee tenderness) present. Normal range of motion. Cervical back: [...] Diagnoses and all orders for this visit: Physical exam, annual (Z00.00) (Primary) Comments: [employer] physical and PAF completed today. Follow-up in 4 months or sooner as needed Morbid obesity with BMI of 45.0-49.9, adult (HCC) (E66.01, Z68.42) Comments: Continue to try to diet and exercise on a regular basis as tolerated Assessment & Plan: Discussed the patient's BMI. The BMI is above average. BMI management plan is completed. BMI Follow-up includes: nutrition counseling, exercise counseling and education provided. chronic right knee pain (M79.604) Comments: Percocet 10 mg twice daily as directed. Increase dosage. May take with additional Tylenol Assessment & Plan: This is a significant, separately identifiable problem that was evaluated and managed on the same day as the wellness exam Orders: - oxyCODONE (ROXICODONE) 10 mg tablet; Take 1 tablet (10 mg total) by mouth every 12 (twelve) hours Primary hypertension (I10) Comments: Forgot your blood pressure medicine today. Blood pressure elevated at 156/98. Contact us later witha reading after meds Gastroesophageal reflux disease without esophagitis (K21.9) Comments: Continue omeprazole as directed. documented in this encounter Miscellaneous Notes * Assessment & Plan Note - Haritha Tse NP - 09/05/2023 10:22 AM CDT Associated Problem(s): Pain in right leg This is a significant, separately identifiable problem that was evaluated and managed on the same day as the wellness exam * Assessment & Plan Note - Kristin Singh MA - 09/05/2023 10:03 AM CDT Associated Problem(s): Morbid obesity with BMI of 45.0-49.9, adult (HCC) Discussed the patient's BMI. The BMI is above average. BMI management plan is completed. BMI Follow-up includes: nutrition counseling, exercise counseling and education provided. documented in this encounter Plan of Treatment Not on file documented as of this encounter Visit Diagnoses Diagnosis Physical exam, annual- Primary Morbid obesity with BMI of 45.0-49.9, adult (HCC) chronic right knee pain Primary hypertension Unspecified essential hypertension Gastroesophageal reflux disease without esophagitis Esophageal reflux documented in this encounter Discontinued Medications Medication Sig Discontinue Reason Start Date End Da te oxyCODONE-acetaminophen (PERCOCET) 5-325 mg per tabletIndications:Pain Take 0.5 tablets by mouth every 6 (six) hours as needed for pain Take 1/2 tab po Q6 hours prn pain. Other 08/05/2023 09/05/2023 documented as of this encounter Care Teams Cutting And Boning Supervisor Relationship Specialty Start Date End Date Haritha Tse NP [address] [place] [address] PCP - General Internal Medicine 10/30/22 documented as of this encounter
--- OUTSIDE RECORDS SUMMARY | 2024-03-24 18:54 | XMS_ITS | Encounter Summary ---
Author Organization [facility] Healthcare Address [address] [place] [address] Care Team Providers Care Home School Coordinator Name Role Phone Unknown, Notinfile Unavailable Unavailable Gerard Sutton MD Primary Care Provider [phone] Encounter Details Date Type Department Care Team (Late st Contact Info) Description 04/30/2019 2:15 PM MEDICAL AFFAIRS MANAGER Anesthesia Event [facility] [address] [place] [address] Hector Alvarenga MD [address] [place] [address] Abigail Whitney CRNA [address] [place] [address] Anesthesia Record Procedure Summary Procedure Name Responsible Anesthesiologist Anesthesia Start Time Anesthesia Stop Time ESOPHAGOGASTRODUODENOSCOPY CONTROL BLEED Hector Alvarenga MD 04/30/19 1415 04/30/19 1454 Events Date Time Event Comment 04/30/2019 1356 1415 An Start 1420 In Room 1421 An Start Data 1423 Start Supplemental O2 1425 Patient Positioned Laterally 1425 An Induction The patient was reevaluated immediately before moderate or deep sedation use and before anesthesia induction. 1425 Bite Block Placed 1427 Proc Start 1427 Anesthesia Ready 1442 Proc Fin 1445 Out of Room 1447 an stop data 1454 Handoff to RN I completed my handoff to the receiving nurse during which we: 1. Patient identified 2. Responsible provider identified 3. Pertinent medical history reviewed 4. Procedure type and surgical course discussed 5. Intraoperative anesthetic management and any significant issues discussed 6. Expectations and concerns for postop period discussed 7. Questions solicited from receiving nurse 8. Patient disposition at the time of handoff: No value filed. 1454 An Stop Meds Name Total lidocaine 1 % PF 60 mg propofol 150 mg propofol 193.95 mg sodium chloride 0.9% infusion 0 mL * Agents Name O2% N2O O2 * Blood No blood administrations on file. Lines, Drains, and Airways Type Details Placement Removal Peripheral IV Placement Date: 04/09 06/25; Placement Time: 0800; Change Due: 05/04/19; Catheter Size: 22 G; Orientation: Left, Posterior; Location: Forearm; Site Prep: Alcohol; Insertion Attempts: 1; Removal Date: 05/01/19; Removal Time: 1355; Removal Reason: Drainage 04/30/19 0800 by Cecil David Jr., RN 05/01/19 1355 by Cecil David Jr., RN Peripheral IV Placement Date: 04/09 06/25; Placement Time: 0850; Catheter Size: 22 G; Orientation: Left; Location: Antecubital; Site Prep: Alcohol; Technique: Anatomical landmarks; Inserted by: Phil Adrian RN; Insertion Attempts: 1; Patient Tolerance: Tolerated well; Removal Date: 04/30/19; Removal Time: 1735; Removal Reason: Per patient/family request 04/30/19 0850 by Phil Jimenez RN 04/30/19 1735 by Cecil David Jr., RN documented in this encounter Social History Tobacco Use Types Packs/Day Years Used Date Smoking Tobacco: Never Smokeless Tobacco: Never Alcohol Use Standard Drinks/Week Comments Not Currently 0 (1 standard drink = 0.6 oz pur e alcohol) Comments No Sex and Gender Information Value Date Recorded Sex Assigned at Not on file Legal Sex Female 7:50 PM CDT Gender Identity Female 11/23/2020 10:23 AM CDT Sexual Orientation Straight 11/23/2020 10 :23 AM CDT documented as of this encounter OR Notes * Anesthesia Postprocedure Evaluation - Hector Alvarenga MD - 04/30/2019 3:21 PM CST Patient: Tiarra Addison Procedure Summary Date: 04/30/19 Room / Location: [facility] OR POD 5 ROOM 224 / [facility] ENDOSCOPY Anesthesia Start: 1415 Anesthesia Stop: 1454 Procedure: ESOPHAGOGASTRODUODENOSCOPY CONTROL BLEED (N/A ) Diagnosis: Gastrointestinal hemorrhage with melena (Gastrointestinal hemorrhage with melena [K92.1]) Provider: Ozzie Pascual MD Responsible Provider: Hector Alvarenga MD Anesthesia Type: MAC ASA Status: 3 Anesthesia Type: MAC Last vitals BP (!) 102/40 Pulse 72 Temp 36 ??C (96.8 ??F) (Temporal) Resp 13 SpO2 100% Anesthesia Post Evaluation Patient location during evaluation: PACU Patient participation: complete - patient participated Level of consciousness: fully awake Pain score: 0 Pain management: adequate Airway patency: patent and adequate Evidence of recall: no Anesthetic complications: no Cardiovascular status: acceptable and hemodynamically stable Respiratory status: acceptable and room air Hydration status: acceptable Pt is: normothermic Nausea/Vomiting status: none Comments: BP (!) 102/40 Pulse 72 Temp 36 ??C (96.8 ??F) (Temporal) Resp 13 Ht 170.2 cm (5' 7 ) Wt 129.3 kg (285 lb) LMP 02/27/2019 Comment: patient had tubal ligation 2009 SpO2 100% BMI 44.64 kg/m?? CAL AFFAIRS MANAGER * Anesthesia Preprocedure Evaluation - Hector Alvarenga MD - 04/30/2019 1:54 PM CST Images from the original note were not included. Anesthesia Evaluation Tiarra Addison is a 48 y.o. female Procedure(s): ESOPHAGOGASTRODUODENOSCOPY Pre-Op Diagnosis Codes: * Gastrointestinal hemorrhage with melena [K92.1] Patient Active Problem List Diagnosis ??? alcohol use disorder (CMS/HCC) ??? Dementia associated with alcoholism (CMS/HCC) ??? Cognitive and behavioral changes ??? History of DVT (deep vein thrombosis) ??? Chronic acquired lymphedema ??? Hypertension ??? Anemia ??? Polysubstance abuse (CMS/HCC) ??? Congestive heart failure (CHF) (CMS/HCC) ??? Hypothyroidism ??? Acute upper GI bleed ??? Acute blood loss anemia ??? Gastrointestinal hemorrhage with melena Past Medical History: Diagnosis Date ??? Cellulitis ??? CHF (congestive heart failure) (CMS/HCC) ??? DVT (deep venous thrombosis) (CMS/HCC) ??? Hypertension ??? Lymph edema Past Surgical History: Procedure Laterality Date ??? SECTION ??? GASTRIC BYPASS OB History No obstetric history on file. No Known Allergies Taking? Last Dose Start Date End Date Provider albuterol HFA (PROVENTIL HFA,VENTOLIN HFA,PROAIR HFA) 90 mcg/actuation inhaler () 03/27/18 03/27/19 Bev Still MD Inhale 1-2 puffs every 6 (six) hours as needed for wheezing. benzonatate (TESSALON) 100 mg capsule Unknown 03/27/18 -- Bev Still MD Take 1 capsule (100 mg total) by mouth 3 (three) times a day as needed for cough. famotidine (PEPCID) 20 mg tablet 04/28/2019 -- -- Historical Provider, ferrous sulfate 325 mg (65 mg of elemental iron) tablet Past Week -- -- Historical Provider, furosemide (LASIX) 40 mg tablet Past Week -- -- Historical Provider, hydroCHLOROthiazide (HYDRODIURIL) 25 mg tablet 04/28/2019 -- -- Historical Provider, levothyroxine (SYNTHROID) 100 mcg tablet -- -- Historical Provider, Notes: New prescription, has not started yet lisinopril (PRINIVIL,ZESTRIL) 10 mg tablet 04/28/2019 -- -- Historical Provider, metoprolol XL (TOPROL-XL) 25 mg 24 hr tablet 04/28/2019 -- -- Historical Provider, omeprazole (PriLOSEC) 40 mg capsule 04/28/2019 -- -- Historical Provider, potassium chloride ER (potassium chloride ER) 10 mEq CR tablet 04/28/2019 -- -- Historical Provider, rivaroxaban (XARELTO) 10 mg tablet Past Month -- -- Historical Provider, RIVAROXABAN 15 MG (42)-20 MG (9) TABLETS IN A STARTER PACK More than a month 02/07/18 -- Fátima Aldridge MD Take 1 Package by mouth as directed. Take 15 mg BID with food for 21 days, then take 20 mg daily Current Facility-Administered Medications: ??? dextrose 5% and sodium chloride 0.9% infusion (premix), 100 mL/hr, intravenous, Continuous, Last Rate: 100 mL/hr at 04/29/19 2350, 100 mL/hr at 04/29/19 2350 ??? [MAR Hold] morphine injection 4 mg, 4 mg, intravenous, Q4H PRN, 4 mg at 04/30/19 0926 ??? [MAR Hold] ondansetron (ZOFRAN) injection 4 mg, 4 mg, intravenous, Q4H PRN ??? sodium chloride 0.9% flush 0.5-20 mL, 0.5-20 mL, intra-catheter, Q8H KENTRELL ??? sodium chloride 0.9% flush 0.5-20 mL, 0.5-20 mL, intra-catheter, PRN ??? sodium chloride 0.9% flush 0.5-20 mL, 0.5-20 mL, intra-catheter, PRN ??? sodium chloride 0.9% infusion, 30 mL/hr, intravenous, Continuous, Last Rate: 30 mL/hr at 04/30/19 1347, 30 mL/hr at 04/30/19 1347 ??? [MAR Hold] sodium chloride 0.9% IVPB 0-250 mL, 0-250 mL, intravenous, Once Social History Tobacco Use Smoking Status Never Smoker Smokeless Tobacco Never Used Substance and Sexual Activity Alcohol Use Yes Substance and Sexual Activity Drug Use Yes ??? Types: Marijuana Family History Problem Relation Age of Onset ??? Diabetes Mother ??? Hypertension Mother ??? Diabetes Father ??? Hypertension Father Vitals: 04/30/19 1232 04/30/19 1300 04/30/19 1335 BP: 97/62 104/64 Pulse: 68 70 72 Resp: 20 18 20 Temp: 37.1 ??C (98.8 ??F) 36 ??C (96.8 ??F) SpO2: 98% 100% PT: 04/29/2019: 14.3 sec* INR: 04/29/2019: 1.3* APTT: 04/29/2019: 29 sec Hgb A1C: No results found for requested labs within last 720 hours. CBC RBC: 04/30/2019: 2.45 M/cumm* RDW: 04/23/2019: 21.4 %* MCHC: 04/30/2019: 29.6 g/dL* MCH: 04/30/2019: 27.3 pg MCV: 04/30/2019: 92.2 fL Hct: 04/30/2019: 22.6 %* Hgb: 04/30/2019: 6.7 g/dL* WBC: 04/30/2019: 6.3 K/cumm MPV: 04/30/2019: 10.1 fL Platelets: 04/30/2019: 277 K/cumm RDW CV: 04/30/2019: 19.1 %* RDW Sd: 04/30/2019: 61.1 fL* BMP Glucose: 04/29/2019: 86 mg/dL Calcium: 04/29/2019: 9.0 mg/dL Sodium: 04/29/2019: 140 mmol/L Potassium: 04/29/2019: 3.8 mmol/L CO2: 04/29/2019: 24 mmol/L Chloride: 04/29/2019: 110 mmol/L BUN: 04/29/2019: 13 mg/dL Creatinine: 04/29/2019: 0.93 mg/dL DOS Physical Exam Medical history, medications, and allergies reviewed. Attestation: This PAT evaluation Airway Exam: Mallampati: II Cervical ROM: FROM TM distance: 3.5 Cardiovascular Exam: Rate: regular Rhythm: regular Pulmonary Exam: LCTA, bilat EENT Exam: trachea midline Dental Exam: Appears intact Current state: Patient's current state is cooperative and interactive. Additional comments: Patient has been having upper GI bleed with melena. Hb down to less than 7 gm%, had three units of PRBC afterwards. Not vomiting and no nausea. Anesthesia Plan ASA 3 My patient is approved for the Anesthesia Controlled Medication protocol when under care of a AQUATIC LABORER Planned anesthesia: General and MAC Team communication plan: oral ET tube and mask Induction: Induction: intravenous. Postoperative Plan: Postoperative administration opioids intended. No postoperative mechanical ventilation intended. Informed Consent: Discussed plan with AQUATIC LABORER. Anesthesia plan and risks discussed with patient. Plan and Consent Comments: Explained the risks including but not limited to sore throat, PONV, damage to the lips & teeth and chest infection. Patient fully understands the risks. I answered further questions asked by the patient. Patient is happy with the explanation and happy to proceed. Consent and Attending signature: I and/or my designee have discussed the anesthesia plan, benefits, possible alternatives, parental presence at time of induction (if indicated), and clinically relevant risks that may include dental injury, unintentional awareness, and/or other complications. The patient and/or parent/legal guardian understand, and agree to proceed. All questions answered. CAL AFFAIRS MANAGER documented in this encounter Plan of Treatment Not on file documented as of this encounter Visit Diagnoses Not on filedocumented in this encounter Administered Medications Inactive Administered Medications - up to 3 most recent administrations Medication Order MAR Action Action Date Dose Rate Site lidocaine PF (XYLOCAINE) 10 mg/mL (1 %) preservative free injection As needed, Starting on Amber 04/30/19 at 1425, Anesthesia Intra-op Given 04/30/2019 2:25 PM MEDICAL AFFAIRS MANAGER 60 mg propofol (DIPRIVAN) IV intravenous, Continuous PRN, Starting on Amber 04/30/19 at 1425, Anesthesia Intra-op Rate/Dose Change 04/30/2019 2:34 PM MEDICAL AFFAIRS MANAGER 120 mcg/kg/min 93.1 mL/hr New Bag 04/30/2019 2:25 PM MEDICAL AFFAIRS MANAGER 100 mcg/kg/min 77.58 mL/ hr propofol (DIPRIVAN) IV intravenous, As needed, Starting on Amber 04/30/19 at 1425, Anesthesia Intra-op Given 04/30/2019 2:31 PM MEDICAL AFFAIRS MANAGER 50 mg Given 04/30/2019 2:28 PM MEDICAL AFFAIRS MANAGER 50 mg Given 04/30/2019 2:25 PM MEDICAL AFFAIRS MANAGER 50 mg documented in this encounter Care Teams Home School Coordinator Relationship Specialty Start Date End Date Gerard Sutton MD PCP - General 11/21/18 03/27/20 Unknown, Notinfile 02/18/18 03/27/20 documented as of this encounter
--- OUTSIDE RECORDS SUMMARY | 2024-03-24 18:54 | XMS_ITS | Encounter Summary ---
Author Organization [facility] Healthcare Address [address] [place] [address] Care Team Providers Care Supervisor Pleating Name Role Phone Haritha Tse NUCLEAR ENGINEERING TECHNICIAN Primary Care Provider [phone] Encounter Details Date Type Department Care Team (Late st Contact Info) Description 09/06/2023 Nurse Triage [facility] [place] [address] [place] [address] Haritha Tse, NUCLEAR ENGINEERING TECHNICIAN [address] [place] [address] Social History Tobacco Use Types Packs/Day [...] Refills Last Filled Start Date End Date lisinopriL (PRINIVIL,ZESTRIL) 10 mg tablet Take 1 tablet (10 mg total) by mouth daily 30 tablet 09/06/2023 11/05/2023 documented in this encounter Miscellaneous Notes * Telephone Encounter - Haritha Tse NP - 09/06/2023 10:01 AM CDT Start her back on the lasix for her legs and bp control. 40 mg. Start lisinopril 10mg daily. Have patient follow up in one week for bp check to see where she is. * Telephone Encounter - Yenni Harry RN - 09/06/2023 9:13 AM CDT Chief Complaint(s): dizzy, high blood pressure 178/96 154/95 today. Tiarra Addison shares that she has not been taking BP medications at home in past months. She does not understand which blood pressure medications she should be taking. She has an old bottle of metoprolol in the house that has . She does not have furosemide, lisinopril, or amlodipine in the home. She does not clearly understand which of her medications are for lowering her blood pressure. She does not want to go from taking no blood pressure medication for months to suddenly taking fourblood pressure medications (amlodipine, furosemide, lisinopril, metoprolol) as she is concerned that the sudden initiation of four blood pressure medications all at once, would suddenly lower her blood pressure too much. She asks for guidance to get back on medication to control her blood pressure correctly. Blood pressure medications currently on Active Medication List Medication Sig Comment amLODIPine (NORVASC) 10 mg tablet Take 0.5 tablets (5 mg total) by mouth daily Last prescribed 03/15/2023 dispense #90, no refill furosemide (LASIX) 40 mg tablet Take 1 tablet (40 mg total) by mouth daily Last prescribed 03-28-2020 dispense #90, 2 refills lisinopriL (PRINIVIL,ZESTRIL) 10 mg tablet Take 1 tablet (10 mg total) by mouth daily Last prescribed 03-28-2020 dispense #90, 2 refills metoprolol XL (TOPROL-XL) 25 mg extended release tablet Take 1 tablet (25 mg total) by mouth daily Last prescribed 03-28-2020, dispense #90, 2 refills BP Readings from Last 3 Encounters: 09/05/23 156/98 10/30/22 (!) 160/102 10/18/22 118/81 09-05-23 Last office visit note by Haritha Tse NP: Primary hypertension (I10) Comments: Forgot your blood pressure medicine today. Blood pressure elevated at 156/98. Contact us later witha reading after meds [id number] - [place], [place] - [address] [facility] [phone] [facility] [id number] Allergies as of 09/06/2023 (No Known Allergies) Appointment scheduled with Haritha Tse NP for 1:00 today. Nurse encouraged Tiarra Addison to always bring all of her pill bottles to every future office visit to promote understanding of her medications and to get timely refills as appropriate. Encounter forwarded to Haritha Tse NP's clinical pool so that provider is aware of the reasonfor today's appointment. Reason for Disposition Prescription refill request for ESSENTIAL medicine (i.e., likelihood of harm to patient if not taken) and triager unable to refill per department policy Protocols used: Medication Refill and Renewal [id number] * Telephone Encounter - Yenni Harry RN - 09/06/2023 9:08 AM CDT Regarding: dizzy, high blood pressure 178/96 154/95 ----- Message from Elizabeth Padron sent at 09/06/2023 9:05 AM CDT ----- Symptom Based Call Chief Complaint(s): dizzy, high blood pressure 178/96 154/95 Duration: today What type of symptom(s) is the patient experiencing? Red Flag. Is the patient concerned they are experiencing a medical emergency requiring an ambulance? No Additional Comments: Patient is calling stating that she woke up this morning and she was feeling alittle dizzy. She said she took her blood pressure medication and she said it was still high. She noticed on the metoprolol medication that she has been taking is . CS was unable to offer an ap pointment due to redflag. Does message need to be routed? Yes-Action Needed ----- Message from Elizabeth Vito sent at 09/06/2023 9:05 AM CDT ----- Symptom Based Call Chief Complaint(s): dizzy, high blood pressure 178/96 154/95 Duration: today What type of symptom(s) is the patient experiencing? Red Flag. Is the patient concerned they are experiencing a medical emergency requiring an ambulance? No Additional Comments: Patient is calling stating that she woke up this morning and she was feeling alittle dizzy. She said she took her blood pressure medication and she said it was still high. She noticed on the metoprolol medication that she has been taking is . CS was unable to offer an ap pointment due to redflag. Does message need to be routed? Yes-Action Needed documented in this encounter Plan of Treatment Not on file documented as of this encounter Visit Diagnoses Not on filedocumented in this encounter Care Teams Supervisor Pleating Relationship Specialty Start Date End Date Haritha Tse NP [address] [facility] [address] [place] [address] PCP - General Internal Medicine 10/30/22 documented as of this encounter
--- OUTSIDE RECORDS SUMMARY | 2024-03-24 18:54 | XMS_ITS | Encounter Summary ---
Author Organization [facility] Address [address] [address] Care Team Providers Care Power Reactor Supervisor Name Role Phone Haritha Tse NP Primary Care Provider [phone] Reason for Referral * Procedure (Routine) - Closed Specialty Diagnoses / Procedures Referred By Contac t Referred To Contact Diagnoses Right knee pain, unspecified chronicity Left knee pain, unspecified chronicity Chronic pain of both knees Procedures Large Joint (Hip, Knee, Shoulder) Injection: R knee Prashant Blanc DO [address] [facility] [address] [place] [address] Phone: tel: fax: [facility] Referral ID Status Reason Start Date Expiration Date Visits Re quested Visits Authorized [id number] Closed 07/27/2020 08/26/2021 1 1 * Procedure (Routine) - Closed Specialty Diagnoses / Procedures Referred By Contac t Referred To Contact Diagnoses Right knee pain, unspecified chronicity Left knee pain, unspecified chronicity Chronic pain of both knees Procedures Large Joint (Hip, Knee, Shoulder) Injection: L knee Prashant Blanc DO [address] [facility] [address] [place] [address] Phone: tel: fax: [facility] Referral ID Status Reason Start Date Expiration Date Visits Re quested Visits Authorized [id number] Closed 07/27/2020 08/26/2021 1 1 * Diagnostic Imaging (Routine) - Closed Specialty Diagnoses / Procedures Referred By Contac t Referred To Contact Diagnoses Left knee pain, unspecified chronicity Procedures XR Knee Left 3 Views Prashant Blanc DO [address] [place] [address] Phone: tel: fax: [address] [address] Referral ID Status Reason Start Date Expiration Date Visits Re quested Visits Authorized [id number] Closed 07/27/2020 08/26/2021 1 1 * Diagnostic Imaging (Routine) - Closed Specialty Diagnoses / Procedures Referred By Contac t Referred To Contact Diagnoses Right knee pain, unspecified chronicity Procedures XR Knee Right 3 Views Prashant Blanc DO [address] [place] [address] Phone: tel: fax: [address] [address] Referral ID Status Reason Start Date Expiration Date Visits Re quested Visits Authorized [id number] Closed 07/27/2020 08/26/2021 1 1 Reason for Visit * Reason Comments Pain Pain * Consultation (Routine) - Closed Specialty Diagnoses / Procedures Referred By Contac t Referred To Contact Orthopedic Surgery Diagnoses Chronic pain of both knees Haritha Tse NP Phone: tel: fax: [facility] Orthopedics and Sports Medicine [address] [place] [phone] Phone: tel: fax: Referral ID Status Reason Start Date Expiration Date V isits Requested Visits Authorized [id number] Closed Specialty Services Required 06/28/2020 07/28/2021 1 1 Encounter Details Date Type Department Care Team (Late st Contact Info) Description 07/27/2020 2:30 PM CDT Office Visit [facility] Orthopedics and Sports Medicine [address] [place] [address] [address] [place] [phone] Prashant Blanc DO [address] [place] [address] [address] [place] [address] Right knee pain, unspecified chronicity (Primary Dx); Left knee pain, unspecified chronicity; Chronic pain of both knees; BMI 50.0-59.9, adult (CMS/HCC) Social History Tobacco Use Types Packs/Day Years [...] - Inhaled Oxygen Concentration - - Weight 149.4 kg (329 lb 6.4 oz) 07/27/2020 3:34 PM CDT Height 170.2 cm (5' 7 ) 07/27/2020 3:34 PM CDT Body Mass Index 51.59 07/27/2020 3:34 PM CDT documented in this encounter Progress Notes * Prashant Blanc, - 07/27/2020 2:30 PM CDTAssociated Order(s): Large Joint (Hip, Knee, Shoulder) Injection: L knee; Large Joint (Hip, Knee, Shoulder) Injection: R knee Post-Procedure Diagnose(s): Right knee pain, unspecified chronicity; Left knee pain, unspecified chronicity; Chronic pain of both knees NEW PATIENT VISIT Subjective CHIEF COMPLAINT She had concerns including Pain of the Left Knee and Pain of the Right Knee. HISTORY OF PRESENT ILLINESS Patient presents for evaluation of bilateral knee pain. She states she has been having pain in bothof her knees past 3 years. She is not sure what caused her pain. Describes the pain as sharp and aching, severe in intensity, better with rest and worse with activity. She has tried physical therapy and anti- inflammatories in the past. No acute injuries. 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 Her right knee is more painful than left. PAST MEDICAL HISTORY She has a past medical history of Cellulitis, CHF (congestive heart failure) ([facility]), DVT (deep venous thrombosis) ([facility]), DVT (deep venous thrombosis) ([facility]), Hypertension, and Lymph edema. PAST SURGICAL HISTORY She has a past surgical history that includes Gastric bypass; section; and Carotid stent. MEDICATIONS She has a current medication list which includes the following prescription(s): amlodipine, ferroussulfate, furosemide, [START ON 08/23/2020] hydrocodone- acetaminophen, lisinopril, metoprolol xl, phentermine, rivaroxaban, and zolpidem. ALLERGIES She has No Known Allergies. SOCIAL HISTORY She reports that she has never smoked. She has never used smokeless tobacco. She reports current alcohol use. She reports current drug use. Drug: Hydrocodone. FAMILY HISTORY Family History Problem Relation Age of Onset ??? Diabetes Mother ??? Hypertension Mother ??? Diabetes Father ??? Hypertension Father REVIEW OF SYSTEMS Constitutional: Negative for chills and fever. HENT: Negative for ear pain and sore throat. Eyes: Negative for pain and visual disturbance. Respiratory: Negative for shortness of breath and wheezing. Cardiovascular: Negative for chest pain and palpitations. Gastrointestinal: Negative for abdominal distention and abdominal pain. Genitourinary: Negative for dysuria and hematuria. Skin: Negative for pallor and rash. Neurological: Negative for syncope and numbness. Objective PHYSICAL EXAM Ht 170.2 cm (5' 7 ) Wt (!) 149.4 kg (329 lb 6.4 oz) BMI 51.59 kg/m?? Gen: No acute distress, well developed Head: Atraumatic Eyes: EOM are normal Ears: Hearing intact to spoken word Cardiovascular: Rate is regular Pulmonary: No respiratory distress Adominal: soft Neurologic: Patient oriented to person, place and time Psychiatric: Normal mood and affect MSK: Examination of bilateral lower extremities shows significant swelling and edema of the right lower leg. Soft tissue makes it difficult to evaluate for effusion. No erythema or signs of infection. She is able to fully extend both of her knees. Flexion on the right to 110??. Flexion on the left to 120??. There is mild crepitus with motion bilaterally. Both knees are ligamentously stable. Quadriceps and hamstrings functioning appropriately. Denies pain with internal external rotation at either REVIEW OF X-RAYS/STUDIES/LABS X-rays reviewed bilateral knees negative for acute osseous abnormality. Advanced degenerative changes with joint space narrowing tricompartmentally on the right. Complete loss of joint space medial compartment on the left. Varus alignment. Diagnoses and all orders for this visit: Right knee pain, unspecified chronicity (Primary) - XR Knee Right 3 Views; Future Left knee pain, unspecified chronicity - XR Knee Left 3 Views; Future Chronic pain of both knees - Ambulatory referral to Orthopedic Surgery BMI 50.0-59.9, adult ([facility]) - Ambulatory referral to Internal Medicine; Future Plan: Reviewed surgical and nonsurgical options with the patient today. Recommend conservative treatment.Discussed activity modification, weight loss, anti- inflammatories, injections, and therapy. Patientwould like to try injections today. Both knees were injected with steroid and she tolerated this well. I will also refer her to Dr. Grant for weight loss counseling. Discussed that she is high risk due to her lymphedema and wait for any surgical intervention. Patient understands. She will follow up with me on a p.r.n. basis. Large Joint (Hip, Knee, Shoulder) Injection: L knee Performed by: Prashant Blanc DO Authorized by: Prashant Blanc DO Large Joint Injection/Aspiration: Consent Given by: Patient Site marked: the procedure site was marked Verbal consent obtained: Yes Procedure Details: Location: Knee Site: L knee Prep: patient was prepped using a clean technique Medications: 2 mL lidocaine 10 mg/mL (1 %); 40 mg triamcinolone 40 mg/mL Patient tolerance: Patient tolerated the procedure well with no immediate complications Large Joint (Hip, Knee, Shoulder) Injection: R knee Performed by: Prashant Blanc DO Authorized by: Prashant Blanc DO Large Joint Injection/Aspiration: Consent Given by: Patient Site marked: the procedure site was marked Verbal consent obtained: Yes Procedure Details: Location: Knee Site: R knee Prep: patient was prepped using a clean technique Medications: 2 mL lidocaine 10 mg/mL (1 %); 40 mg triamcinolone 40 mg/mL Patient tolerance: Patient tolerated the procedure well with no immediate complications Prashant Blanc DO documented in this encounter Plan of Treatment Not on file documented as of this encounter Procedures Procedure Name Priority Date/Time Associated Diagnosis Comments ID ARTHROCENTESIS ASPIR&/INJ MAJOR JT/BURSA W/O US Routine 07/27/2020 2:30 PM CDT Right knee pain, unspecified chronicity Left knee pain, unspecified chronicity Chronic pain of both knees ID ARTHROCENTESIS ASPIR&/INJ MAJOR JT/BURSA W/O US Routine 07/27/2020 2:30 PM CDT Right knee pain, unspecified chronicity Left knee pain, unspecified chronicity Chronic pain of both knees documented in this encounter Results * XR Knee Left 3 Views (07/27/2020 2:38 PM CDT) Anatomical Region Laterality Modality Lower Extremities, Knee Left Radiogra phic Imaging 07/28/2020 8:54 AM CDT Narrative 07/28/2020 8:54 AM CDT Patient Name: ENEIDA HAN ?Ordering Dr: Prashant Blanc DO ?? D.O.B: 1970 ? Exam Date: 07/27/20 ?? 1438 ?? Age: 49 ?Sex: Female ? MR#: [id number] ?? Loc: ? RADIOLOGY REPORT ?? Order #[id number] ?? Radiology ? Knee LT 3 View [...] 8:54 AM ?? T: ? Report ID: [id number] ?? Reading Location: ??[id number] ? REPORT ELECTRONICALLY SIGNED IN OTHER VENDOR SYSTEM ?? Resulting Agency Comment O Procedure Note Rock Rivera MD - 07/28/2020 Patient Name: ENEIDA HAN Dr: Prashant BlancO.B: 1970 Exam Date: 07/27/20 143 Age: 49 Sex: Female MR#: [id number] Loc: RADIOLOGY REPORT Order #[id number] Radiology Knee LT 3 View (STANDARD) Signed [...] 8:54 AM - Electronically signed by Rock RUIZ T: Report ID: [id number] Reading Location: [place] [address] REPORT ELECTRONICALLY SIGNED IN OTHER VENDOR SYSTEM Prashant Blanc DO [facility] XR PROCEDURES Final Result * XR Knee Right 3 Views (07/27/2020 2:38 PM CDT) Anatomical Region Laterality Modality Lower Extremities, Knee Right Radiogra phic Imaging 07/28/2020 8:41 AM CDT Narrative 07/28/2020 8:54 AM CDT Patient Name: ENEIDA HAN ?Ordering Dr: Prashant Blanc DO ?? D.O.B: 1970 ? Exam Date: 07/27/20 ?? 1438 ?? Age: 49 ?Sex: Female ? MR#: [id number] ?? Loc: ? RADIOLOGY REPORT ?? Order #[id number] ?? Radiology ? Knee RT 3 View [...] 8:54 AM ?? T: ? Report ID: [id number] ?? Reading Location: ??[id number] ? REPORT ELECTRONICALLY SIGNED IN OTHER VENDOR SYSTEM ?? Resulting Agency Comment O Procedure Note Rock Rivera MD - 07/28/2020 Patient Name: ENEIDA HAN Dr: Prashant Blanc DO DBeaO.B: 1970 Exam Date: 07/27/20 143 Age: 49 Sex: Female MR#: [id number] Loc: RADIOLOGY REPORT Order #[id number] Radiology Knee RT 3 View (STANDARD) Signed [...] 8:54 AM - Electronically signed by Rock Miguel RUIZ T: Report ID: [id number] Reading Location: [place] [address] REPORT ELECTRONICALLY SIGNED IN OTHER VENDOR SYSTEM Prashant Blanc DO IMG XR PROCEDURES Final Result * ID ARTHROCENTESIS ASPIR&/INJ MAJOR JT/BURSA W/O US (07/27/2020 2:30 PM CDT) Narrative Prashant Blanc DO - 07/27/2020 2:30 PM CDT Prashant Blanc DO ? 07/27/2020 11:10 PM Large Joint (Hip, Knee, Shoulder) Injection: R knee Performed by: Prashant Blanc DO Authorized by: Prashant Blanc DO Large Joint Injection/Aspiration: ??Consent Given by: ??Patient ??Site marked: the procedure site was marked ?Verbal consent obtained: Yes ?? Procedure Details: ??Location: ??Knee ??Site: ??R knee ??Prep: patient was prepped using a clean technique ?Medications: ??2 mL lidocaine 10 mg/mL (1 %); 40 mg triamcinolone 40 mg/mL ??Patient tolerance: ??Patient tolerated the procedure well with no immediate complications Result [facility] Prashant Blanc DO IN CLINIC/BEDSIDE ORDERABLES F inal Result * ID ARTHROCENTESIS ASPIR&/INJ MAJOR JT/BURSA W/O US (07/27/2020 2:30 PM CDT) Narrative Prashant Blanc DO - 07/27/2020 2:30 PM CDT Prashant Blanc DO ? 07/27/2020 11:10 PM Large Joint (Hip, Knee, Shoulder) Injection: L knee Performed by: Prashant Blanc DO Authorized by: Prashant Blanc DO Large Joint Injection/Aspiration: ??Consent Given by: ??Patient ??Site marked: the procedure site was marked ?Verbal consent obtained: Yes ?? Procedure Details: ??Location: ??Knee ??Site: ??L knee ??Prep: patient was prepped using a clean technique ?Medications: ??2 mL lidocaine 10 mg/mL (1 %); 40 mg triamcinolone 40 mg/mL ??Patient tolerance: ??Patient tolerated the procedure well with no immediate complications Prashant Blanc DO IN CLINIC/BEDSIDE ORDERABLES F inal Result documented in this encounter Visit Diagnoses Diagnosis Right knee pain, unspecified chronicity- Primary Left knee pain, unspecified chronicity Chronic pain of both knees BMI 50.0-59.9, adult (HCC) Right knee pain, unspecified chronicity Left knee pain, unspecified chronicity documented in this encounter Administered Medications Inactive Administered Medications - up to 3 most recent administrations Medication Order MAR Action Action Date Dose Rate Site lidocaine (XYLOCAINE) 10 mg/mL (1 %) injection 2 mL 2 mL, One-Time Injection, Starting on Sat07/27/20 at 2310, For 1 dose, Indications: Administration of Local AnesthesiaIndications:Administrati on of Local Anesthesia Given 07/27/2020 11:10 PM CDT 2 mL lidocaine (XYLOCAINE) 10 mg/mL (1 %) injection 2 mL 2 mL, One-Time Injection, Starting on Sat07/27/20 at 2310, For 1 dose, Indications: Administration of Local AnesthesiaIndications:Administrati on of Local Anesthesia Given 07/27/2020 11:10 PM CDT 2 mL triamcinolone (KENALOG) 40 mg/mL injection 40 mg 40 mg, intra-articular, One-Time Injection, Starting on Sat07/27/20 at 2310, For 1 doseIndications:Right knee pain, unspecified chronicity,Left knee pain, unspecified chronicity,Chronic pain of both knees Given 07/27/2020 11:10 PM CDT 40 mg triamcinolone (KENALOG) 40 mg/mL injection 40 mg 40 mg, intra-articular, One-Time Injection, Starting on Sat07/27/20 at 2310, For 1 doseIndications:Right knee pain, unspecified chronicity,Left knee pain, unspecified chronicity,Chronic pain of both knees Given 07/27/2020 11:10 PM CDT 40 mg documented in this encounter Orders Outpatient Referral Count Last Ordered Date st Ordered Date AMB REFERRAL TO ORTHOPEDIC SURGERY 1 2020 documented in this encounter Care Teams Power Reactor Supervisor Relationship Specialty Start Date End Date Haritha Tse NP PCP - General Internal Medicine 03/28/20 10/29/22 documented as of this encounter
--- OUTSIDE RECORDS SUMMARY | 2024-03-24 18:54 | XMS_ITS | Encounter Summary ---
Author Organization [facility] Address [address] [facility] [address] [place] [address] Care Team Providers Care Explosives Handler Name Role Phone Haritha Tse HIM MANAGER Primary Care Provider Encounter Details Date Type Department Care Team (Late st Contact Info) Description 12/06/2022 Telephone [facility] Family Medicine [address] [place] [address] Haritha Tse, HIM MANAGER [address] [place] [address] Social History Tobacco Use Types [...] Telephone Encounter - Kristin Singh MA - 12/06/2022 3:47 PM CDT Called voice mail box not set up yet will send message in voice mail. * Telephone Encounter - Nicole Ferreira LPN - 12/06/2022 9:19 AM CDT Called patient with no answer. VM could not be left as voicemail box is full. documented in this encounter Plan of Treatment Not on file documented as of this encounter Visit Diagnoses Not on filedocumented in this encounter Care Teams Explosives Handler Relationship Specialty Start Date End Date Haritha Tse NP [address] [facility] [address] [place] [address] PCP - General Internal Medicine 10/30/22 documented as of this encounter
--- OUTSIDE RECORDS SUMMARY | 2024-03-24 18:54 | XMS_ITS | Encounter Summary ---
Author Organization [facility] Address [address] [place] [address] Care Team Providers Care Apartment Maintenance Supervisor Name Role Phone Haritha Tse NP Primary Care Provider Reason for Visit * Reason Onset Date Comments Medical Records Request 03/20/2023 Encounter Details Date Type Department Care Team (Late st Contact Info) Description 03/20/2023 Telephone [facility] Internal Medicine at [place] [address] [place] [address] Haritha Tse NP [address] [facility] [address] [place] [address] Medical Records Request Social History Tobacco Use Types Packs/Day [...] encounter Miscellaneous Notes * Telephone Encounter - Nicole Ferreira LPN - 03/21/2023 1:43 PM REAL ESTATE ADMINISTRATIVE ASSISTANT Pt reviewed message but did not responds. Closing this message ESTATE ADMINISTRATIVE ASSISTANT * Telephone Encounter - Nicole Ferreira LPN - 03/20/2023 3:19 PM REAL ESTATE ADMINISTRATIVE ASSISTANT Sent mychart message to clarify what is needed as this message is unclear ESTATE ADMINISTRATIVE ASSISTANT * Telephone Encounter - Shivani Toribio - 03/20/2023 2:08 PM CST Medical Question/Miscellaneous Caller???s Concern: [facility] Please request to have images from last mammogram sent to Haritha Tse. Does message need to be routed? Yes-Action Needed ESTATE ADMINISTRATIVE ASSISTANT ESTATE ADMINISTRATIVE ASSISTANT documented in this encounter Plan of Treatment Not on file documented as of this encounter Visit Diagnoses Not on filedocumented in this encounter Care Teams Apartment Maintenance Supervisor Relationship Specialty Start Date End Date Haritha Tse NP [address] [facility] [address] [place] [address] PCP - General Internal Medicine 10/30/22 documented as of this encounter
--- OUTSIDE RECORDS SUMMARY | 2024-03-24 18:54 | XMS_ITS | Encounter Summary ---
Author Organization [facility] Address [address] [place] [address] Care Team Providers Care Canceling Machine Operator Name Role Phone Haritha Tse NP Primary Care Provider [phone] Reason for Referral * Consultation (Routine) - Closed Specialty Diagnoses / Procedures Referred By Contflores t Referred To Contact Pain Management Diagnoses Chronic pain of right knee Haritha Tse NP [address] [facility] [address] [place] [address] Phone: tel: fax: Cyndie Leroy NP [address] [facility] [address] [place] [address] Phone: tel: fax: Referral ID Status Reason Start Date Expiration Date V isits Requested Visits Authorized [id number] Closed Specialty Services Required 03/20/2023 04/18/2024 1 1 Question Answer Please select the performing region: External Order [171] # of visits: 1 Comments Intervention Pain Civil Design Technician INE CONTAINER WASHER Encounter Details Date Type Department Care Team (Late st Contact Info) Description 03/20/2023 Orders Only [facility] Family Medicine [address] [facility] [address] [place] [address] Haritha Tse NP [address] [place] [address] Chronic pain of right knee (Primary Dx) Social History Tobacco Use Types [...] as of this encounter Progress Notes * Nicole Ferreira LPN - 03/20/2023 1:44 PM CST Referral placed per pt request INE CONTAINER WASHER documented in this encounter Plan of Treatment Scheduled Referrals Name Type Priority Associated Diagnoses Order Schedule Ambulatory referral to Pain Management Outpatient Referral Routine Chronic pain of right knee Expected: 04/03/2023 (Approximate), Expires: 03/20/2024 documented as of this encounter Visit Diagnoses Diagnosis Chronic pain of right knee- Primary documented in this encounter Care Teams Canceling Machine Operator Relationship Specialty Start Date End Date Haritha Tse NP [address] [place] [address] PCP - General Internal Medicine 10/30/22 documented as of this encounter
--- OUTSIDE RECORDS SUMMARY | 2024-03-24 18:54 | XMS_ITS | Encounter Summary ---
Author Organization [facility] Address [address] [place] [id number] Care Team Providers Care Sanitation Worker Hosing Machinery Name Role Phone Haritha Tse NP Primary Care Provider [phone] Reason for Visit * Reason Comments Establish Care Was in ER for pain R knee, swelling Encounter Details Date Type Department Care Team (Late st Contact Info) Description 10/30/2022 1:00 PM CDT Office Visit [facility] Internal Medicine at [place] [address] [place] [address] Haritha Tse, GARRETT [address] [place] [address] chronic right knee pain (Primary Dx); Obesity, morbid, BMI 40.0-49.9 (HCC); Morbid obesity with BMI of 45.0-49.9, adult (HCC); Chronic deep vein thrombosis (DVT) of other vein of right lower extremity (HCC); Primary insomnia Social History Tobacco Use [...] Sign Reading Time Taken Comments Blood Pressure 160/102 10/30/2022 12:59 PM CDT Pulse 68 10/30/2022 12:59 PM CDT Temperature 36.7 ??C (98.1 ??F) 10/30/2022 12:59 PM C DT Respiratory Rate - - Oxygen Saturation 97% 10/30/2022 12:59 PM CDT Inhaled Oxygen Concentration - - Weight 132.9 kg (293 lb) 10/30/2022 12:59 PM CDT Height 170.2 cm (5' 7 ) 10/30/2022 12:59 PM CDT Body Mass Index 45.89 10/30/2022 12:59 PM CDT documented in this encounter Patient Instructions * Patient Instructions* Haritha Tse NP - 10/30/2022 1:00 PM CDT Medications as directed. Follow-up in 2 weeks for blood pressure check. Contact the office with anyquestions or concerns. See Ortho as directed. Go to the emergency room for worsening pain documented in this encounter Ordered Prescriptions Prescription Sig Dispense Quantity Refills Last Filled Start Date End Date methylPREDNISolone (MEDROL DOSEPACK) 4 mg DosepackIndication s:Pain in right leg Take as directed on package. 21 tablet 10/30/2022 HYDROcodone-acetam inophen (NORCO) 10-325 mg per tabletIndications: Pain in right leg Take 1 tablet by mouth 2 (two) times a day as needed for pain 60 tablet 10/30/2022 3 zolpidem (AMBIEN) 10 mg tabletIndications: Primary insomnia Take 1 tablet (10 mg total) by mouth nightly as needed for sleep 90 tablet 10/30/2022 3 documented in this encounter Progress Notes * Haritha Tse, RESIDENTIAL DESIGNER - 10/30/2022 1:00 PM CDT Subjective/Objective Patient ID: Tiarra Addison is a 51 y.o. female. Visit Date: 10/30/2022 Chief Complaint Establish Care (Was in ER for pain R knee, swelling) HPI 51-year-old female in to establish care. Patient was a previous patient prior to moving to [place] a couple of years ago. She does have chronic knee pain. She needs bilateral knee replacements however they are unable to do so due to patient way at [facility]. She was seen by ortho last week for right knee pain and swelling. She has been out of her pain medicine since September. She is not sleeping well. She previously took Ambien 10 mg nightly. We did discuss that I would give her pain medicine 10/325 hydrocodone 2 tablets daily. I will also give her a Medrol Dosepak. She is to continue to see Ortho. She would like to see pain management Review of Systems Constitutional: Negative for activity change, chills and fatigue. HENT: Negative for congestion, ear pain, nosebleeds, rhinorrhea and sinus pressure. Respiratory: Negative for cough and shortness of breath. Cardiovascular: Negative for chest pain and palpitations. Gastrointestinal: Negative for abdominal pain. Endocrine: Negative for cold intolerance. Genitourinary: Negative for difficulty urinating and hematuria. Musculoskeletal: Positive for arthralgias (Bilateral knee pain right worse than left). Negative forback pain and myalgias. Neurological: Negative for dizziness, weakness and headaches. Psychiatric/Behavioral: Positive for sleep disturbance. Negative for agitation and confusion. Physical Exam Constitutional: Appearance: Normal appearance. She is well-developed. She is obese. Comments: Appears uncomfortable HENT: Head: Normocephalic and atraumatic. Eyes: Pupils: Pupils are equal, round, and reactive to light. Cardiovascular: Rate and Rhythm: Normal rate and regular rhythm. Heart sounds: Normal heart sounds. Comments: Blood pressure elevated due to pain. Patient ambulatory with wheeled walker into room Pulmonary: Effort: Pulmonary effort is normal. Breath sounds: Normal breath sounds. Abdominal: General: Bowel sounds are normal. There is no distension. Palpations: Abdomen is soft. Musculoskeletal: General: Swelling (Right knee) and tenderness (Bilateral knee tenderness right worse than left. Swelling to right knee. Sitting in wheelchair) present. Cervical back: Normal range of motion and neck supple. Right lower leg: Edema present. Left lower leg: Edema present. Skin: General: Skin is warm and dry. Capillary Refill: Capillary refill takes less than 2 seconds. Findings: No rash. Neurological: Mental Status: She is alert and oriented to person, place, and time. Psychiatric: Thought Content: Thought content normal. Comments: Anxious and uncomfortable Assessment/Plan Diagnoses and all orders for this visit: chronic right knee pain (M79.604) (Primary) Comments: Hydrocodone 10/325 up to twice daily as needed for pain. Medrol Dosepak as directed. See Ortho Orders: - HYDROcodone-acetaminophen (NORCO) 10-325 mg per tablet; Take 1 tablet by mouth 2 (two) times a day as needed for pain - methylPREDNISolone (MEDROL DOSEPACK) 4 mg Dosepack; Take as directed on package. Obesity, morbid, BMI 40.0-49.9 ([facility]) (E66.01) Comments: Diet and exercise on a regular basis as tolerated Assessment & Plan: Discussed the patients BMI: The BMI is above average BMI management is complete. BMI follow-up includes: Nutrition Counseling and education provided Morbid obesity with BMI of 45.0-49.9, adult ([facility]) (E66.01, Z68.42) Comments: Monitor caloric intake. Exercise as tolerated Assessment & Plan: Discussed the patients BMI: The BMI is above average BMI management is complete. BMI follow-up includes: Nutrition Counseling and education provided Chronic deep vein thrombosis (DVT) of other vein of right lower extremity ([facility]) (I82.591) Comments: Continue Xarelto daily as directed Primary insomnia (F51.01) Comments: Take Ambien 10 mg nightly as needed for sleep Orders: - zolpidem (AMBIEN) 10 mg tablet; Take 1 tablet (10 mg total) by mouth nightly as needed for sleep documented in this encounter Miscellaneous Notes * Assessment & Plan Note - Kristin Singh MA - 10/30/2022 1:06 PM CDT Associated Problem(s): Morbid obesity with BMI of 45.0-49.9, adult ([facility]) Discussed the patients BMI: The BMI is above average BMI management is complete. BMI follow-up includes: Nutrition Counseling and education provided documented in this encounter Plan of Treatment Not on file documented as of this encounter Visit Diagnoses Diagnosis chronic right knee pain- Primary Obesity, morbid, BMI 40.0-49.9 (HCC) Morbid obesity with BMI of 45.0-49.9, adult (HCC) Chronic deep vein thrombosis (DVT) of other vein of right lower extremity ([facility]) Primary insomnia Persistent disorder of initiating or maintaining sleep documented in this encounter Discontinued Medications Medication Sig Discontinue Reason Start Date End Da te HYDROcodone-acetaminophe n (NORCO) 10-325 mg per tabletIndications:Pain in right leg Take 1 tablet by mouth every 6 (six) hours as needed for pain Reorder 11/25/2020 10/30/2022 zolpidem (AMBIEN) 10 mg tabletIndications:Primar y insomnia Take 1 tablet (10 mg total) by mouth nightly as needed for sleep Reorder 12/07/2020 10/30/2022 documented as of this encounter Care Teams Sanitation Worker Hosing Machinery Relationship Specialty Start Date End Date Haritha Tes NP [address] [place] [address] PCP - General Internal Medicine 10/30/22 documented as of this encounter
--- OUTSIDE RECORDS SUMMARY | 2024-03-24 18:54 | XMS_ITS | Encounter Summary ---
Author Organization [facility] Healthcare Address [address] [place] [address] Care Team Providers Care Voice Studies Director Name Role Phone Unknown, Notinfile Unavailable Unavailable Gerard Sutton MD Primary Care Provider [phone] Reason for Visit * Reason Comments Dizziness Black or Bloody Stool Encounter Details Date Type Department Care Team (Latest Contact Info) Description 04/29/2019 7:45 PM BUFFING AND SUEDING MACHINE OPERATOR - 05/02/2019 12:30 PM BUFFING AND SUEDING MACHINE OPERATOR Hospital Encounter [facility] [address] [place] [address] Phil Morillo MD [address] [place] [address] Molly Garcia MD [address] [place] [address] Re Montez MD [address] [facility] [address] [place] [address] Ozzie Pascual MD [address] [facility] [id number] [place] [address] Ottoniel Ellis MD [address] [place] [address] Gastrointestinal hemorrhage with melena (Primary Dx) Discharge Disposition: Discharge to home or self care Social History Tobacco Use Types Packs/Day Years [...] Sign Reading Time Taken Comments Blood Pressure 125/69 05/02/2019 5:12 AM BUFFING AND SUEDING MACHINE OPERATOR Pulse 82 05/02/2019 5:12 AM BUFFING AND SUEDING MACHINE OPERATOR Temperature 36.8 ??C (98.2 ??F) 05/02/2019 5:00 AM CS T Respiratory Rate 16 05/02/2019 5:00 AM BUFFING AND SUEDING MACHINE OPERATOR Oxygen Saturation 100% 05/02/2019 5:00 AM BUFFING AND SUEDING MACHINE OPERATOR Inhaled Oxygen Concentration - - Weight 134.8 kg (297 lb 3.2 oz) 04/30/2019 4:20 PM BUFFING AND SUEDING MACHINE OPERATOR Height 170.2 cm (5' 7 ) 04/30/2019 4:20 PM BUFFING AND SUEDING MACHINE OPERATOR Body Mass Index 46.55 04/30/2019 4:20 PM BUFFING AND SUEDING MACHINE OPERATOR documented in this encounter Discharge Diagnoses Diagnosis Chronic or unspecified gastric ulcer with hemorrhage - CHRONIC OR UNSPECIFIED GASTRIC ULCER WITH HEMORRHAGE Acute posthemorrhagic anemia - ACUTE POSTHEMORRHAGIC ANEMIA Hypothyroidism, unspecified - HYPOTHYROIDISM, UNSPECIFIED Hypertensive heart disease with heart failure (CMS/HCC) ([facility]) - HYPERTENSIVE HEART DISEASE WITH HEART FAILURE Unspecified hypertensive heart disease with heart failure Heart failure, unspecified (CMS/HCC) (HCC) - HEART FAILURE, UNSPECIFIED Heart failure, unspecified Lymphedema, not elsewhere classified - LYMPHEDEMA, NOT ELSEWHERE CLASSIFIED 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 oil well fishing 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 technician (current) drug therapy - OTHER PEELER OPERATOR (CURRENT) DRUG THERAPY Family history of ischemic heart disease and other diseases of the circulatory system - FAMILY HISTORY OF ISCHEMIC HEART DISEASE AND OTHER DISEASES OF THE CIRCULATORY SYSTEM Family history of diabetes mellitus - FAMILY HISTORY OF DIABETES MELLITUS Personal history of other venous thrombosis and embolism - PERSONAL HISTORY OF OTHER VENOUS THROMBOSIS AND EMBOLISM Presence of other vascular implants and grafts - PRESENCE OF OTHER VASCULAR IMPLANTS AND GRAFTS documented in this encounter Discharge Summaries * Lilian Cee MD - 05/02/2019 9:15 AM CST Inpatient Discharge Summary BRIEF OVERVIEW Admitting Provider: Ottoniel Ellis MD Discharge Provider: Molly Garcia MD Primary Care Physician at Discharge: Gerard Sutton MD [phone] Admission Date: 04/29/2019 Discharge Date: 05/02/2019 Admission Location: [facility] Primary Discharge Diagnosis: UGIB Secondary Discharge Diagnosis: Gastrointestinal hemorrhage with melena History of DVT (deep vein thrombosis) Hypertension Congestive heart failure (CHF) (CMS/HCC) Hypothyroidism Acute upper GI bleed Acute blood loss anemia DETAILS OF HOSPITAL STAY Presenting Problem/History of Present Illness: Tiarra Addison is a 48yoF with a history of HTN, chronic lymphedema, gastric bypass (1999), PE/DVT s/p IVC filter & on xarelto, who presented with 2 weeks of melena. ?? Pt was admitted to [facility] on 04/15/19 for two days of dark stools. Per patient report, she required 4 units pRBC throughout her stay and underwent EGD which demonstrated a non-bleeding ulcer, and she was discharged on omeprazole 40mg daily on 04/24/19. At the time of writing this, outside records were not available. ?? The patient states that since leaving the hospital on 04/24, she has continued to have black/tarry stools and has also noted some epigastric abdominal pain and nausea without emesis. Is currently having about 3 black stools/day. She saw her PCP for post-hospital follow-up visit and recommended she present to the ED. Also having some dizziness with standing, no recent falls or LOC. ?? In the ED: afebrile, HR 80s, BPs 100-120/50s-60s. Hgb 5.6. WBC 8.2, plt 315. CMP wnl aside from albumin 3.4 and total protein 6.1. Lactate 1.0. KUB done without evidence of free air/perf. She was transfused 2 units of pRBC prior to floor transfer and made NPO for EGD on 04/30 and GI was made aware. Per patient, her last dose of xarelto was on ~04/13/19 and she clarified she has definitely not taken xarelto within the last 48h. ?? Of note, pt reports drinking ~3 glasses of wine about 3-4x weekly. Last drink was prior to the bleeding starting ~04/15/19. No regular NSAID use. Hospital Course: Tiarra Addison is a 48 y.o. F w/ history of GBP (kay-en-Y in 1999), PE/DVT s/p IVC filter placementand on Xarelto (last taken on 04/13/2019). Pt's melena started on 04/13/2019. She noticed she was having black and tarry stools and she was admitted to [facility] on 04/15/2019. During her course at OSH she received 4 units pRBC and underwent upper endoscopy, which showed non-bleeding ulcer at the anastomosis. She was d/c on 04/24/2019 while she was still having black, tarry stools. She continued to experience melena about 2x/day at home. She takes her own BP and noticed her BP decreasing and felt dizzy. At this point she presented to [facility] (on 04/29/2019). At [facility], her Hb was measured as 5.6 and she received 2 units of pRBC. Hb then measured 6.7. She also had new epigastric pain about 3 wks prior to development of melena. She had some gagging/nausea, but not emesis. Other background: Patient had BRBPR in July of 2018. Colonoscopy at the time showed no hemorrhoids, no diverticula. In same month she had VTE episode and started on Xarelto. She has never before had melena. Problems: Melena and Blood Loss Anemia: Most likely 2/2 upper GI bleed. Stool is black and tarry, which indicates upper GI source of bleeding. Her past GBP (kay-en-Y) is a risk factor for the development of ableeding ulcer (shantal at the site of anastomosis). 04/29/2019: pt's hgb was 5.6, given 2 units of pRBC and improved to 6.7. 04/30/2019: given another unit of pRBC and Hb improved to 8.6. EDG 5 mm ulcerin gastric pouch that was oozing. Epi injected and hemostatic clips placed. Plan to repeat EGD in 2-3 mo to evaluate ulcer. PPI PO BID. Trend CBC and transfuse as needed. 05/01/2019: Patient not experiencing dizziness/fatigue. Continuing to monitor Hb levels which has been stable throughout this admission. Hypothyroidism: 04/29/2019: Her hypothyroidism was newly Dx at OSH. Outside records have been requested. Continuing home levothyroxine. ?? CHF: 04/29/2019. CHF dx at [facility] in Feb 2019. Requested records from [facility]. Holding home metop and furosemide in setting of volume loss. ?? VTE Hx: 04/29/2019: VTE last July. Patient held her own Xarelto in s/o melena starting 04/13/2019.SCDs for prevention. Active Issues Requiring Follow-up: -Repeat CBC in 1 week with PCP -Follow up in GI clinic for possible repeat EGD in 2-3 months Test Results Pending at Discharge: Order Current Status Surgical pathology In process Operative Procedures Performed: Procedure(s): ESOPHAGOGASTRODUODENOSCOPY CONTROL BLEED Discharge Details Physical Exam at Discharge: Discharge Condition: stable Pulse: 82 Resp: 16 BP: 125/69 Temp: 36.8 ??C (98.2 ??F) Weight: 134.8 kg (297 lb 3.2 oz) Pertinent Exam Findings at Discharge: Physical Exam: General:??NAD, resting comfortably in bed. HEENT:??NC/AT, MMM,??anicteric sclera. Neck:??Supple, no LAD or JVD. CV:??RRR, nl S1/S2, no m/g/r. Lungs:??CTAB, no crackles or wheezes. Abdomen:??Obese, soft, tender to moderate epigastric palpation, no rebound or guarding.?? Extremities:??Chronic non-pitting edema of b/l LE. MSK:??BREWSTER Skin:??No rashes or jaundice. Neuro:??A+Ox4, no focal deficits. Psych: Pleasant and cooperative. Discharge Disposition: Code Status at Discharge: Full Discharge Instructions: You were seen at [facility] for a bleeding ulcer, while here your had an EGD wit placement of clips to stabilize the bleeding. You also received a blood transfusion while here. Please follow up in clinic with your primary doctor for a repeat CBC in 1 week to ensure your hemoglobin is stable. You should also follow up with the GI doctor in clinic as they will likely need to do a repeat scope to assess these ulcers. Please do not start taking your blood thinner xarelto or NSAIDs like ibuprofen until instructed by you primary or GI physician about when it is safe to do so as these medications increase the risk of bleeding. Discharge Medications: Current Medications TAKE these medications albuterol HFA 90 mcg/actuation inhaler Commonly known as: PROVENTIL HFA,VENTOLIN HFA,PROAIR HFA Inhale 1-2 puffs every 6 (six) hours as needed for wheezing. benzonatate 100 mg capsule Commonly known as: TESSALON Take 1 capsule (100 mg total) by mouth 3 (three) times a day as needed for cough. ferrous sulfate 325 mg (65 mg of elemental iron) tablet Take 65 mg of elemental iron by mouth daily with breakfast furosemide 40 mg tablet Commonly known as: LASIX Take 40 mg by mouth daily. hydroCHLOROthiazide 25 mg tablet Commonly known as: HYDRODIURIL Take 25 mg by mouth daily levothyroxine 100 mcg tablet Commonly known as: SYNTHROID Take 50 mcg by mouth railroad engineer before breakfast lisinopril 10 mg tablet Commonly known as: PRINIVIL,ZESTRIL Take 10 mg by mouth daily metoprolol XL 25 mg 24 hr tablet Commonly known as: TOPROL-XL Take 25 mg by mouth daily omeprazole 40 mg capsule Commonly known as: PriLOSEC Take 40 mg by mouth daily potassium chloride ER 10 mEq CR tablet Commonly known as: KLOR-CON Take 10 mEq by mouth 2 (two) times a day Outpatient Follow-Up: Contact Information for Follow-ups DENNISE Shelton Specialty: Physician Informatics Educator [address] [place] [address] Next Steps: Follow up Cosigned by Molly Garcia MD at 05/02/2019 11:57 AM BUFFING AND SUEDING MACHINE OPERATOR ING AND SUEDING MACHINE OPERATOR ING AND SUEDING MACHINE OPERATOR documented in this encounter Discharge Instructions * Appointments* Ann Marie Mariano RN - 05/01/2019 2:23 PM BUFFING AND SUEDING MACHINE OPERATOR This is the earliest available appointment with your PCP, Please bring discharge paperwork with list of medicines, insurance card and photo ID to appointment. Please arrive at least 15 minutes early prior to appointment. If you are unable to keep this appointment, it is very important you call to reschedule. ING AND SUEDING MACHINE OPERATOR documented in this encounter Medications at Time of Discharge ferrous sulfate 325 mg (65 mg of elemental iron) tabletIndication s:Iron Deficiency Anemia Take 1 tablet (325 mg total) by mouth daily with breakfast albuterol HFA (PROVENTIL HFA,VENTOLIN HFA,PROAIR HFA) 90 mcg/actuation inhaler Inhale 1-2 puffs every 6 (six) hours as needed for wheezing. 1 Inhaler 03/27/2018 0 benzonatate (TESSALON) 100 mg capsuleIndicatio ns:Cough Take 1 capsule (100 mg total) by mouth 3 (three) times a day as needed for cough. 15 capsule 03/27/2018 0 furosemide (LASIX) 40 mg tablet Take 40 mg by mouth daily. 0 hydroCHLOROthiaz jone (HYDRODIURIL) 25 mg tablet Take 25 mg by mouth daily 0 levothyroxine (SYNTHROID) 100 mcg tablet Take 50 mcg by mouth railroad engineer before breakfast 0 lisinopril (PRINIVIL,ZESTRI L) 10 mg tablet Take 10 mg by mouth daily 0 metoprolol XL (TOPROL-XL) 25 mg 24 hr tablet Take 25 mg by mouth daily 0 omeprazole (PriLOSEC) 40 mg capsule Take 40 mg by mouth daily 0 potassium chloride ER (potassium chloride ER) 10 mEq CR tablet Take 10 mEq by mouth daily 0 documented as of this encounter Discharge Disposition Disposition Code Departure Means Destination Discharge to home or self care documented in this encounter Progress Notes * Lilian Cee MD - 05/02/2019 9:13 AM CST Internal Medicine Daily Progress Subjective Interval History: NAEO. Hgb remains stable with a slight uptrend. Plan for d/c this am Objective Scheduled Medications: ferrous sulfate, 65 mg of elemental iron, oral, Daily with breakfast pantoprazole, 40 mg, intravenous, BID sodium chloride 0.9%, 0.5-20 mL, intra-catheter, Q8H KENTRELL sodium chloride 0.9%, 0.5-20 mL, intra-catheter, Q8H KENTRELL Continuous Medications: sodium chloride 0.9%, 30 mL/hr, Last Rate: Stopped (04/30/19 1557) PRN Medications: morphine ??? ondansetron ??? ramelteon ??? sodium chloride 0.9% ??? sodium chloride 0.9% Vitals: Most Recent : Vitals: 05/02/19 0512 BP: 125/69 Pulse: 82 Resp: Temp: SpO2: 24hr Min/Max: Temp Min: 36.8 ??C (98.2 ??F) Max: 37 ??C (98.6 ??F) Pulse Min: 76 Max: 85 BP Min: 85/45 Max: 125/69 Resp Min: 16 Max: 16 SpO2 Min: 100 % Max: 100 % I/O: I/O last 2 completed shifts: In: 30 [I.V.:30] Out: - No intake/output data recorded. Physical Exam: General:??NAD, resting comfortably in bed. HEENT:??NC/AT, MMM,??anicteric sclera. Neck:??Supple, no LAD or JVD. CV:??RRR, nl S1/S2, no m/g/r. Lungs:??CTAB, no crackles or wheezes. Abdomen:??Obese, soft, tender to moderate epigastric palpation, no rebound or guarding.?? Extremities:??Chronic non-pitting edema of b/l LE. MSK:??BREWSTER Skin:??No rashes or jaundice. Neuro:??A+Ox4, no focal deficits. Psych: Pleasant and cooperative. Lab/Radiology/Diagnostic Review: Recent Labs Lab Units 05/01/19 2346 05/01/19 1637 05/01/19 0800 WBC K/cumm 6.9 7.0 7.2 HEMOGLOBIN g/dL 8.2* 7.8* 7.9* HEMATOCRIT % 27.0* 25.2* 26.3* PLATELETS K/cumm 296 268 285 Recent Labs Lab Units 05/01/19 1637 04/30/19 2238 04/29/19 2032 SODIUM mmol/L 141 140 140 POTASSIUM PLASMA mmol/L 4.6 4.0 3.8 CHLORIDE mmol/L 110 108 110 CO2 mmol/L 25 24 24 BUN SERUM mg/dL 11 11 13 CREATININE mg/dL 0.90 0.86 0.93 GLUCOSE mg/dL 87 93 86 CALCIUM mg/dL 9.0 9.1 9.0 Lab Results Component Value Date ALT 13 04/29/2019 AST 20 04/29/2019 ALKPHOS 55 04/29/2019 BILITOT 0.2 04/29/2019 I have reviewed the above laboratory results. Imaging Results: No results found. Assessment/Plan: Acute blood loss anemia Assessment & Plan Hgb to 5.6 in the setting of melenic stools. S/p 2u pRBC in ED. -Post transfusion H/H is 8.6 -q8h CBC, T&S, consented -further management as listed under upper GI bleed ?? Acute upper GI bleed Assessment & Plan 2 week hx melenic stools. Per pt, admitted to [facility] on 04/14 and d/c 04/24; sherequired multiple units pRBC and states EGD demonstrated non-bleeding ulcer with bleeding from unclear source. Likely related to PUD, given ulcer finding on outside EGD, in setting of anticoag use. Discharged with a Hgb 7.3 and presented to ED on 04/29 with persistent melenic stools and Hgb 5.6. INR1.3 KUB negative for perf/free air. GI notified of patient's presence in ED, plan for EGD on 04/30. Last dose of xarelto ~04/15/19. S/p 2 units pRBC in ED. - Requested [facility] records - 2 Large bore IVs - EGD shows a shallow ulceration within the pouch that was oozing??at the proximal edge, along witha few erosions and friability. The ulcer was injected with epinephrine. Clips were placed. Biopsiedfor H pylori. - Q8H CBCs, T&S, consented - Transfuse for Hgb<7 - IV protonix BID transitioned to PO - Monitor on Telemetry - avoid NSAIDs, ASA, anticoagulants ? Hypothyroidism Assessment & Plan Pt with reported new diagnosis of hypothyroidism and prescription of levothyroxine 50mcg. -Requested [facility] Records -Repeat TSH is 4.2, free T4 is 1.17 -Patient is Euthyroid, will start levothyroxine outpatient if needed ?? Congestive heart failure (CHF) ([facility]) Assessment & Plan Per patient, recently diagnosed at [facility] (02/2019). - Requested [facility] Records to be faxed over - Hold home metop XL and furosemide ? Hypertension Assessment & Plan Reviewed patient's medication bottles at bedside. Currently takes lisinopril 10mg, hydrochlorothiazide (HCTZ) 25mg, metop xl 25mg, furosemide 40mg daily. -Hold home BP meds due to hypotension and GIB ?? History of DVT (deep vein thrombosis) Assessment & Plan Prior DVTs/PEs. S/p IVC filter placement. On Xarelto at home, last dose reportedly around ~04/15/19, as she stopped this medication around the time she started developing melenic stools. - Hold Xarelto iso bleed - SCDs ? Code Status: Full Code Diet: Full Diet Acces: PIV Dispo: Inpatient workup/treatment of UGIB ?? Lilian Cee MD ? Cosigned by Molly Garcia MD at 05/02/2019 12:01 PM BUFFING AND SUEDING MACHINE OPERATOR ING AND SUEDING MACHINE OPERATOR ING AND SUEDING MACHINE OPERATOR Associated attestation - Molyl Garcia MD - 05/02/2019 12:01 PM BUFFING AND SUEDING MACHINE OPERATOR I have seen and examined the patient on 05/02/19. I agree with the findings and plan of care as documented in the resident's/fellow's note. * Sandro Stoll MD - 05/01/2019 1:14 PM CST Gastroenterology Daily Progress Subjective Chief complaint of GIB. Interval History: EGD yesterday with gastric pouch ulcer with oozing s/p epi injection and hemoclipx 2. Patient feeling well today. She complains of mild epigastric pain. No nausea or emesis. Hgb responded well to 3U PRBC yesterday with trend from 5.6 to 8.6. Objective Vitals: 24hr Min/Max: Temp Min: 36 ??C (96.8 ??F) Max: 37.6 ??C (99.7 ??F) Pulse Min: 65 Max: 79 BP Min: 91/67 Max: 126/70 Resp Min: 13 Max: 24 SpO2 Min: 99 % Max: 100 % Most Recent : Vitals: 05/01/19 0419 BP: 96/48 Pulse: 79 Resp: 18 Temp: 36.6 ??C (97.9 ??F) SpO2: I/O last 2 completed shifts: In: 1500 [I.V.:500; Blood:1000] Out: - No intake/output data recorded. Physical Exam: General: pleasant, comfortable, NAD HEENT: NCAT, PERRL, MMM Neck: supple, no LAD CV: RRR, normal S1, S2, no MRG Lung: CTAB, no wheezing or crackles Abdomen: soft, milt ttp in epigastric region and RLQ without rebound or guarding Lab/Radiology/Diagnostic Review: Recent Results (from the past 24 hour(s)) POCT [id number], WB - ISTAT Collection Time: 04/30/19 2:13 PM Result Value Ref Range Hct, POC 25.0 (L) 35.6 - 45.5 % POCT hCG, urine Collection Time: 04/30/19 2:15 PM Result Value Ref Range HCG, ur, POC Negative Lot Number [id number] QC Backgroud Clear Acceptable QC Control Line Acceptable CBC without differential Collection Time: 04/30/19 10:38 PM Result Value Ref Range WBC 8.9 3.8 - 9.9 K/cumm Hgb 8.6 (L) 11.9 - 15.5 g/dL Hct 28.0 (L) 35.6 - 45.5 % Plt 304 150 - 400 K/cumm MPV 10.0 9.1 - 12.3 fL RBC 3.06 (L) 3.90 - 5.20 M/cumm MCV 91.5 81.3 - 96.4 fL MCH 28.1 27.1 - 33.3 pg MCHC 30.7 (L) 32.3 - 35.7 g/dL RDW CV 19.0 (H) 11.1 - 14.9 % RDW SD 58.1 (H) 35.7 - 48.1 fL NRBC abs 0.00 0.00 - 0.01 K/cumm Basic metabolic panel Collection Time: 04/30/19 10:38 PM Result Value Ref Range Sodium 140 135 - 145 mmol/L Potassium, pl 4.0 3.3 - 4.9 mmol/L Chloride 108 97 - 110 mmol/L CO2 24 22 - 32 mmol/L Anion gap 8 2 - 15 mmol/L BUN 11 8 - 25 mg/dL Creatinine 0.86 0.60 - 1.10 mg/dL Glucose 93 70 - 199 mg/dL Calcium 9.1 8.5 - 10.3 mg/dL TSH reflex to free T4 Collection Time: 04/30/19 10:38 PM Result Value Ref Range TSH 4.24 (H) 0.30 - 4.20 mcIUnit/mL T4, free Collection Time: 04/30/19 10:38 PM Result Value Ref Range Free T4 1.17 0.90 - 1.70 ng/dL CBC without differential Collection Time: 05/01/19 8:00 AM Result Value Ref Range WBC 7.2 3.8 - 9.9 K/cumm Hgb 7.9 (L) 11.9 - 15.5 g/dL Hct 26.3 (L) 35.6 - 45.5 % Plt 285 150 - 400 K/cumm MPV 10.1 9.1 - 12.3 fL RBC 2.87 (L) 3.90 - 5.20 M/cumm MCV 91.6 81.3 - 96.4 fL MCH 27.5 27.1 - 33.3 pg MCHC 30.0 (L) 32.3 - 35.7 g/dL RDW CV 18.9 (H) 11.1 - 14.9 % RDW SD 58.8 (H) 35.7 - 48.1 fL NRBC abs 0.00 0.00 - 0.01 K/cumm Plan Ms. Addison is a 48 yo AAF with a history of Kay-en-Y gastric bypass surgery (1999), recent admission for GIB with reported GJ anastomotic ulcer, DVT/PE, HTN, hypothyroidism, chronic lymphedema who presents for melena and anemia. 1. Melena, acute blood loss anemia: EGD 04/30 with oozing gastric pouch ulcer s/p epi and hemoclip. Hgb stable post transfusion. No BM since procedure. -Continue oral PPI BID (pt to take until f/u EGD and can discuss pending repeat EGD results) -EGD to be scheduled in 2-3 months (we will arrange on discharge) -Trend Hgb, transfuse as needed -Avoid NSAIDs The General GI service will sign off. Please do not hesitate the contact the GI service with further questions or concerns. We can be reached Saturday through Saturday from 0800 to 1700 at [phone]. From 1700 to 0800 Saturday through Saturday and all day Saturday/Saturday, we can be reached at [phone]. ING AND SUEDING MACHINE OPERATOR * Lilian Cee MD - 05/01/2019 9:31 AM CST Internal Medicine Daily Progress Subjective Interval History: NAEO. Patient underwent EGD with placement of two clips on oozing ulcer. Will continue IV PPI whileinpatient and transition to PO tomorrow. Hgb stable at 8.6 from 6.7. Will trend CBC tonight and if stable plan for discharge tomorrow. Objective Scheduled Medications: ferrous sulfate, 65 mg of elemental iron, oral, Daily with breakfast pantoprazole, 40 mg, intravenous, BID sodium chloride 0.9%, 0.5-20 mL, intra-catheter, Q8H KENTRELL sodium chloride 0.9%, 0.5-20 mL, intra-catheter, Q8H KENTRELL Continuous Medications: sodium chloride 0.9%, 30 mL/hr, Last Rate: Stopped (04/30/19 4267) PRN Medications: morphine ??? ondansetron ??? ramelteon ??? sodium chloride 0.9% ??? sodium chloride 0.9% Vitals: Most Recent : Vitals: 05/01/19 0419 BP: 96/48 Pulse: 79 Resp: 18 Temp: 36.6 ??C (97.9 ??F) SpO2: 24hr Min/Max: Temp Min: 36 ??C (96.8 ??F) Max: 37.6 ??C (99.7 ??F) Pulse Min: 65 Max: 79 BP Min: 91/67 Max: 126/70 Resp Min: 13 Max: 24 SpO2 Min: 98 % Max: 100 % I/O: I/O last 2 completed shifts: In: 1500 [I.V.:500; Blood:1000] Out: - No intake/output data recorded. Physical Exam: General: NAD, resting comfortably in bed. HEENT: NC/AT, MMM, anicteric sclera. Neck: Supple, no LAD or JVD. CV: RRR, nl S1/S2, no m/g/r. Lungs: CTAB, no crackles or wheezes. Abdomen: Obese, soft, tender to moderate epigastric palpation, no rebound or guarding. Extremities: Chronic non-pitting edema of b/l LE. MSK: BREWSTER Skin: No rashes or jaundice. Neuro: A+Ox4, no focal deficits. Psych: Pleasant and cooperative. Lab/Radiology/Diagnostic Review: Recent Labs Lab Units 04/30/19223704/30/19 1413 04/30/19 0805 04/29/192031 WBC K/cumm 8.9 -- 6.3 8.2 HEMOGLOBIN g/dL 8.6* -- 6.7* 5.6* HEMATOCRIT % 28.0* 25.0* 22.6* 19.3* PLATELETS K/cumm 304 -- 277 315 Recent Labs Lab Units 04/30/19223704/29/192031 SODIUM mmol/L 140 140 POTASSIUM PLASMA mmol/L 4.0 3.8 CHLORIDE mmol/L 108 110 CO2 mmol/L 24 24 BUN SERUM mg/dL 11 13 CREATININE mg/dL 0.86 0.93 GLUCOSE mg/dL 93 86 CALCIUM mg/dL 9.1 9.0 Lab Results Component Value Date ALT 13 04/29/2019 AST 20 04/29/2019 ALKPHOS 55 04/29/2019 BILITOT 0.2 04/29/2019 I have reviewed the above laboratory results. Imaging Results: Xr Abdomen Erect And Or Decubitus 2 Views Result Date: 04/30/2019 Supine and upright views of the abdomen are submitted for evaluation. Inferior vena cava filter is seen in the level of L2-L3.Sutures are seen in the left upper quadrant from prior gastric bypass surgery. Rounded metallic bodies are seen in the pelvis and maybe from prior surgery, possibly tubal ligation clips. The visualized bowel gas pattern is nonobstructive. No free gas is seen. Lung bases are clear. The hip joints are normal. Dictated by: Wesly Chase M.D. The radiology attending physician has personally reviewed this study, and had reviewed and/or edited this written report and agrees with it. Electronically signed by: Joao Palomino M.D. Assessment/Plan: Acute blood loss anemia Assessment & Plan Hgb to 5.6 in the setting of melenic stools. S/p 2u pRBC in ED. -Post transfusion H/H is 8.6 -q8h CBC, T&S, consented -further management as listed under upper GI bleed Acute upper GI bleed Assessment & Plan 2 week hx melenic stools. Per pt, admitted to [facility] on 04/14 and d/c 04/24; sherequired multiple units pRBC and states EGD demonstrated non-bleeding ulcer with bleeding from unclear source. Likely related to PUD, given ulcer finding on outside EGD, in setting of anticoag use. Discharged with a Hgb 7.3 and presented to ED on 04/29 with persistent melenic stools and Hgb 5.6. INR1.3 KUB negative for perf/free air. GI notified of patient's presence in ED, plan for EGD on 04/30. Last dose of xarelto ~04/15/19. S/p 2 units pRBC in ED. - Requested [facility] records - 2 Large bore IVs - EGD shows a shallow ulceration within the pouch that was oozing at the proximal edge, along with a few erosions and friability. The ulcer was injected with epinephrine. Clips were placed. Biopsied for H pylori. - Q8H CBCs, T&S, consented - Transfuse for Hgb<7 - IV protonix BID - Monitor on Telemetry - avoid NSAIDs, ASA, anticoagulants Hypothyroidism Assessment & Plan Pt with reported new diagnosis of hypothyroidism and prescription of levothyroxine 50mcg. -Requested [facility] Records -Repeat TSH is 4.2, free T4 is 1.17 -Patient is Euthyroid, will start levothyroxine outpatient if needed Congestive [facility]) [facility] Assessment & Plan Per patient, recently diagnosed at [facility] (02/2019). - Requested [facility] Records to be faxed over - Hold home metop XL and furosemide Hypertension Assessment & Plan Reviewed patient's medication bottles at bedside. Currently takes lisinopril 10mg, hydrochlorothiazide (HCTZ) 25mg, metop xl 25mg, furosemide 40mg daily. -Hold home BP meds due to hypotension and GIB History of DVT (deep vein thrombosis) Assessment & Plan Prior DVTs/PEs. S/p IVC filter placement. On Xarelto at home, last dose reportedly around ~04/15/19, as she stopped this medication around the time she started developing melenic stools. - Hold Xarelto iso bleed - SCDs Code Status: Full Code Diet: Full Diet Acces: PIV Dispo: Inpatient workup/treatment of UGIB Lilian Cee MD Cosigned by Molly Garcia MD at 05/01/2019 10:44 AM BUFFING AND SUEDING MACHINE OPERATOR ING AND SUEDING MACHINE OPERATOR ING AND SUEDING MACHINE OPERATOR Associated attestation - Molly Garcia MD - 05/01/2019 10:44 AM BUFFING AND SUEDING MACHINE OPERATOR I have seen and examined the patient on 05/01/19. I agree with the findings and plan of care as documented in the resident's/fellow's note. * Ann Marie Mariano RN - 05/01/2019 9:05 AM CST 05/01/19 0904 Information Information Obtained From Patient Referral Data Referral Source Self referral Referral Reason Discharge Planning Prior to Admission Primary Caregiver Self Support System Children Support system contact info (name, phone, availablity) Jose Willis (son) [phone] Home Care Services No Durable Medical Equipment None Living Arrangements Children (10 year old daughter ) Type of Residence Apartment Steps in home? Yes, Inside home Number of steps inside: 12 steps Financial Resource Payor Source Medicaid Potential Discharge Needs Anticipated discharge level of care Private residence Pt/Family agrees with Anticipated Level of Care Yes Patient expects to be discharged to: Private residence Dialysis No Behavioral Health Services No Impression: 48yoF with a history of HTN, chronic lymphedema, gastric bypass (1999), PE/DVT s/p IVC filter & on xarelto, who presented with 2 weeks of melena Information/Options Discussed: Explained role and purpose of residential case manager role. Demographics verified with face sheet. Plan Includes: Establish a safe discharge. Insurance verified as: Bartolo FOX PCP verified as: DENNISE Esparza at [facility] -[phone] Transportation: family Admit Source: ED from home Problem/Goal: Patient awaits further evaluation for medical discharge needs and home needs. CM willassist patient with home needs as indicated and identified for safe discharge planning Through the course of our work I determined that Jose possess the skill and ability to provide and monitor the care of the patient when he or she returns home. Jose has the capacity to provide/monitor/arrange for the care of the patient. Finally, we determined that Jose has the knowledge of available resources and that combining them with their existing resources will suffice to sustain and care for the patient when he or she returns home. The treatment team is aware of this information. All are in agreement with the aftercare plan. For emergency needs after 4:30 pm, please call the plant and equipment worker . For weekend/holiday needs from 8:00a.m. - 4:30p.m., please call the Weekend Ship'S Master . ING AND SUEDING MACHINE OPERATOR documented in this encounter H&P Notes * Cari Landers MD - 04/30/2019 12:01 AM CST Medicine History and Physical Subjective The patient is a 48 y.o. female with chief complaint of Melena. HPI: Tiarra Addison is a 48yoF with a history of HTN, chronic lymphedema, gastric bypass (1999), PE/DVT s/p IVC filter & on xarelto, who presented with 2 weeks of melena. Pt was admitted to [facility] on 04/15/19 for two days of dark stools. Per patient report, she required 4 units pRBC throughout her stay and underwent EGD which demonstrated a non-bleeding ulcer, and she was discharged on omeprazole 40mg daily on 04/24/19. At the time of writing this, outside records were not available. The patient states that since leaving the hospital on 04/24, she has continued to have black/tarry stools and has also noted some epigastric abdominal pain and nausea without emesis. Is currently having about 3 black stools/day. She saw her PCP for post-hospital follow-up visit and recommended she present to the ED. Also having some dizziness with standing, no recent falls or LOC. In the ED: afebrile, HR 80s, BPs 100-120/50s-60s. Hgb 5.6. WBC 8.2, plt 315. CMP wnl aside from albumin 3.4 and total protein 6.1. Lactate 1.0. KUB done without evidence of free air/perf. She was transfused 2 units of pRBC prior to floor transfer and made NPO for EGD on 04/30 and GI was made aware. Per patient, her last dose of xarelto was on ~04/13/19 and she clarified she has definitely not taken xarelto within the last 48h. Of note, pt reports drinking ~3 glasses of wine about 3-4x weekly. Last drink was prior to the bleeding starting ~04/15/19. No regular NSAID use. Past Medical History: Diagnosis Date ??? Cellulitis ??? CHF (congestive heart failure) (CMS/HCC) ??? DVT (deep venous thrombosis) (CMS/HCC) ??? Hypertension ??? Lymph edema Past Surgical History: Procedure Laterality Date ??? SECTION ??? GASTRIC BYPASS No Known Allergies Social History Tobacco Use ??? Smoking status: Never Smoker ??? Smokeless tobacco: Never Used Substance Use Topics ??? Alcohol use: Yes Family History Problem Relation Age of Onset ??? Diabetes Mother ??? Hypertension Mother ??? Diabetes Father ??? Hypertension Father Review of Systems Review of Systems Constitutional: Negative for chills, fever, malaise/fatigue and weight loss. HENT: Negative for congestion. Respiratory: Negative for cough, shortness of breath and wheezing. Cardiovascular: Negative for chest pain and palpitations. Gastrointestinal: Positive for abdominal pain, melena and nausea. Negative for constipation and vomiting. Genitourinary: Negative for frequency and urgency. Neurological: Positive for dizziness. Negative for headaches. Psychiatric/Behavioral: Negative for substance abuse. All other systems were reviewed and are negative. Objective Vitals: 24hr Min/Max: Temp Min: 36.5 ??C (97.7 ??F) Max: 37.1 ??C (98.8 ??F) Pulse Min: 72 Max: 86 BP Min: 99/58 Max: 120/58 Resp Min: 14 Max: 26 SpO2 Min: 97 % Max: 100 % Most Recent Vitals: Vitals: 04/30/19 0400 BP: 99/58 Pulse: 82 Resp: 26 Temp: SpO2: 100% Physical Exam: General: NAD, resting comfortably in bed. HEENT: NC/AT, MMM, anicteric sclera. Neck: Supple, no LAD or JVD. CV: RRR, nl S1/S2, no m/g/r. Lungs: CTAB, no crackles or wheezes. Abdomen: Obese, soft, tender to moderate epigastric palpation, no rebound or guarding. Extremities: Chronic non-pitting edema of b/l LE. MSK: BREWSTER Skin: No rashes or jaundice. Neuro: A+Ox4, no focal deficits. Psych: Pleasant and cooperative. Lab/Radiology/Diagnostic Review: Recent Results (from the past 24 hour(s)) CBC with auto differential Collection Time: 04/29/19 8:32 PM Result Value Ref Range WBC 8.2 3.8 - 9.9 K/cumm Hgb 5.6 (Critical) 11.9 - 15.5 g/dL Hct 19.3 (L) 35.6 - 45.5 % Plt 315 150 - 400 K/cumm MPV 10.3 9.1 - 12.3 fL RBC 2.07 (L) 3.90 - 5.20 M/cumm MCV 93.2 81.3 - 96.4 fL MCH 27.1 27.1 - 33.3 pg MCHC 29.0 (L) 32.3 - 35.7 g/dL RDW CV 19.9 (H) 11.1 - 14.9 % RDW SD 64.6 (H) 35.7 - 48.1 fL NRBC abs 0.00 0.00 - 0.01 K/cumm Protime-INR Collection Time: 04/29/19 8:32 PM Result Value Ref Range PT 14.3 (H) 8.6 - 13.0 sec INR 1.3 (H) 0.8 - 1.2 aPTT Collection Time: 04/29/19 8:32 PM Result Value Ref Range aPTT 29 25 - 37 sec Type and screen Collection Time: 04/29/19 8:32 PM Result Value Ref Range Krishan, indirect Negative ABO Rh O Positive Hepatic function panel Collection Time: 04/29/19 8:32 PM Result Value Ref Range Bilirubin, total 0.2 0.1 - 1.2 mg/dL Bilirubin, direct <0.2 0.1 - 0.3 mg/dL Protein, pl 6.1 (L) 6.5 - 8.5 g/dL Albumin 3.4 (L) 3.5 - 5.0 g/dL Alk phos 55 40 - 130 Units/L ALT 13 7 - 45 Units/L AST 20 10 - 45 Units/L Differential, auto Collection Time: 04/29/19 8:32 PM Result Value Ref Range Neutrophil abs 6.1 1.7 - 6.5 K/cumm Imm gran abs 0.0 0.0 - 0.1 K/cumm Lymphocyte abs 1.3 0.8 - 3.3 K/cumm Monocyte abs 0.4 0.2 - 0.8 K/cumm Eosinophil abs 0.2 0.0 - 0.5 K/cumm Basophil abs 0.0 0.0 - 0.1 K/cumm Neutrophil pct 74.6 % Imm gran pct 0.6 % Lymphocyte pct 15.9 % Monocyte pct 5.4 % Eosinophil pct 3.1 % Basophil pct 0.4 % Basic metabolic panel Collection Time: 04/29/19 8:32 PM Result Value Ref Range Sodium 140 135 - 145 mmol/L Potassium, pl 3.8 3.3 - 4.9 mmol/L Chloride 110 97 - 110 mmol/L CO2 24 22 - 32 mmol/L Anion gap 6 2 - 15 mmol/L BUN 13 8 - 25 mg/dL Creatinine 0.93 0.60 - 1.10 mg/dL Glucose 86 70 - 199 mg/dL Calcium 9.0 8.5 - 10.3 mg/dL Haptoglobin Collection Time: 04/29/19 8:32 PM Result Value Ref Range Haptoglobin 110.0 30.0 - 200.0 mg/dL POCT lactate Collection Time: 04/29/19 8:39 PM Result Value Ref Range Lactate POC i-STAT 1.0 0.7 - 2.2 mmol/L Prepare RBC: 2 Units Collection Time: 04/29/19 9:10 PM Result Value Ref Range Product code [id number] Unit Number [id number] Product Blood Type OPOS Dispense Status ISSUED Product code [id number] Unit Number [id number] Product Blood Type OPOS Dispense Status ISSUED Check Sample Collection Time: 04/29/19 9:36 PM Result Value Ref Range ABO Rh O Positive Additional lab tests: Imaging Results: No results found. XR Abdomen Erect and or Decubitus 2 Views Narrative: EXAMINATION: Abdomen with decubitus and/or erect views. HISTORY: Concern for perforated ulcer COMPARISON: None Impression: Supine and upright views of the abdomen are submitted for evaluation. Inferior vena cava filter is seen in the level of L2-L3.Sutures are seen in the left upper quadrant from prior gastric bypass surgery. Rounded metallic bodies are seen in the pelvis and maybe from prior surgery. The visualized bowel gas pattern is nonobstructive. No free gas is seen. Lung bases are clear. The hip joints are normal. Dictated by: Wesly Chase M.D. Assessment Ms. Addison is a 48yoF with a history of HTN, DVT/PE s/p IVC filter on xarelto, and chronic lymphedema who presented with melena and a hgb 5.6, admitted for further management of upper GI bleed. Plan Acute upper GI bleed Assessment & Plan 2 week hx melenic stools. Per pt, admitted to [facility] on 04/14 and d/c 04/24; sherequired multiple units pRBC and states EGD demonstrated non-bleeding ulcer with bleeding from unclear source. Likely related to PUD, given ulcer finding on outside EGD, in setting of anticoag use. Discharged with a Hgb 7.3 and presented to ED on 04/29 with persistent melenic stools and Hgb 5.6. INR1.3 KUB negative for perf/free air. GI notified of patient's presence in ED, plan for EGD on 04/30. Last dose of xarelto ~04/15/19. S/p 2 units pRBC in ED. - Requested [facility] records - 2 Large bore IVs - NPO for EGD - Q8H CBCs, T&S, consented - Transfuse for Hgb<7 - IV protonix BID - Monitor on Telemetry - avoid NSAIDs, ASA, anticoagulants Hypothyroidism Assessment & Plan Pt with reported new diagnosis of hypothyroidism and prescription of levothyroxine 50mcg. -Requested [facility] Records -Repeat TSH -Will start home levothyroxine pending TSH Congestive [facility]) [facility] Assessment & Plan Per patient, recently diagnosed at [facility] (02/2019). - Requested [facility] Records to be faxed over - Hold home metop XL and furosemide Hypertension Assessment & Plan Reviewed patient's medication bottles at bedside. Currently takes lisinopril 10mg, hydrochlorothiazide (HCTZ) 25mg, metop xl 25mg, furosemide 40mg daily. -Hold home BP meds due to normotension and GIB History of DVT (deep vein thrombosis) Assessment & Plan Prior DVTs/PEs. S/p IVC filter placement. On Xarelto at home, last dose reportedly around ~04/15/19, as she stopped this medication around the time she started developing melenic stools. - Hold Xarelto iso bleed - SCDs Access: 2 large bore IVs Diet: NPO DVT ppx: SCDs Dispo: Pending further eval of upper GI bleed Cari Landers, Internal Medicine, PGY1 Addendum: Records received from [facility]. EGD 04/19/19: demonstrated 1cm small anastomotic ulcer CT A/P 04/20/19: Impression: 1. Moderate stranding within the pancreaticoduodenal groove. This mayrepresent groove pancreatitis or duodenitis. Recommend correlation with serum lipase. In this patient with reported ulcer, upper endoscopy may be performed for further evaluation. 2. Possible cholelit hiasis within a partially distended gallbladder. A right upper quadrant sonogram could be performedfor further evaluation. 3. Grossly stable prominent retroperitoneal lymph nodes. Recommend close attention on subsequent follow-up studies. RUQ US 04/21/19: Impression: No evidence of cholelithiasis or cholecystitis. 2. Mild hepatic steatosis. Cosigned by Molly Garcia MD at 04/30/2019 4:17 PM BUFFING AND SUEDING MACHINE OPERATOR ING AND SUEDING MACHINE OPERATOR ING AND SUEDING MACHINE OPERATOR ING AND SUEDING MACHINE OPERATOR ING AND SUEDING MACHINE OPERATOR Associated attestation - Molly Garcia MD - 04/30/2019 4:17 PM BUFFING AND SUEDING MACHINE OPERATOR I have seen and examined the patient on 04/30/19. I agree with the findings and plan of care as documented in the resident's/fellow's note. I reviewed prior records from [facility] which are summarized in this note. Recently admitted to [facility] 04/15-04/24 for melena, found to have anastomotic ulcer. I personally reviewed abdominal x-ray: normal bowel gas pattern. No free air. documented in this encounter Procedure Notes * Radha Barr, RN - 05/01/2019 5:22 PM CST Vascular Access Nurse: Procedure Note Summary of treatment provided to patient today is as follows : . Vascular Access Documentation (last 4 hours) [facility] Additional Procedures Row Name 05/01/19 1721 Procedures Line Type Peripheral -FS Time in 1714 -FS Time out 1724 -FS Time Calculation (min) 10 min -FS Vascular Access Procedures Difficult IV start -FS [REMOVED] Peripheral IV 04/30/19 22 G Left;Posterior Forearm IV Properties Placement Date: 04/30/19 -MR Placement Time: 0800 -MR IV Change Due: 05/04/19 -MR Type: Angiocath -MR Size (Gauge): 22 G -MR Location Orientation: Left;Posterior -MR Location: Forearm -MR Site Prep: Alcohol -MR Insertion attempts: 1 -MR Removal Date: 05/01/19 -MR Removal Time: 1354 -MR Removal Reason : Drainage -MR Peripheral IV 05/01/19 20 G Right Forearm IV Properties Placement Date: 05/01/19 -FS Placement Time: 1720 -FS Type: Angiocath -FS Size (Gauge): 20 G -FS Location Orientation: Right -FS Location: Forearm -FS Site Prep: Chlorhexidine -FS Comfort Measures: Position of comfort;Touch -FS Technique: Anatomical landmarks -FS Inserted by: Matti Bonilla RN -FS Insertion attempts: 1 -FS Patient Tolerance: Tolerated well -FS Site Assessment Clean and dry -FS Line Status Single Blood return noted;Flushes easily;Saline locked -FS Dressing Type Transparent -FS Dressing Status Occlusive;Clean, dry, intact -FS Dressing Intervention Dressing changed -FS User Bolanos (r) = Recorded By, (t) = Taken By, (c) = Cosigned By Initials Name MR Cecil Kaiser Frankie Mccann, RN FS Radha Barr RN Plan: Follow up: Radha Barr RN ING AND SUEDING MACHINE OPERATOR Ozzie Basilio MD - 04/30/2019 2:21 PM CSTAssociated Order(s): EGD [facility] Patient Name: Tiarra Addison Procedure Date: 04/30/2019 2:21 PM Date of : 1970 Admit Type: Outpatient Age: 48 Gender: Female Attending MD: Ozzie Pascual M.D. Room: [facility] OR POD 5 ROOM 224 Note Status: Finalized Procedure: Upper GI endoscopy Indications: Suspected upper gastrointestinal bleeding, previous egd with anastomotic ulcer Referring MD: Re Montez M.D. Providers: Ozzie Pascual M.D., Jennifer Angelo M.D. Medicines: Monitored Anesthesia Care Complications: No immediate complications. Estimated Blood Loss: Estimated blood loss: none. Procedure: Pre-Anesthesia Assessment: - The risks and benefits of the procedure and the sedation options and risks were discussed with the patient. All questions were answered and informed consent was obtained. - The anesthesia plan was to use monitored anesthesia care (MAC). - Immediately prior to administration of medications, the patient was re-assessed for adequacy to receive sedatives. The benefits, risks, and alternatives to the procedure and sedation were discussed and informed consent was obtained. The upper GI endoscopy was accomplished without difficulty. The patient tolerated the procedure well. The scope was passed under direct vision. The GIF [id number] endoscope was introduced through the mouth, and advanced to the jejunum. Findings: The esophagus was normal. Evidence of a gastric bypass was found. A gastric pouch with a 5 cm length from the GE junction to the gastrojejunal anastomosis was found containing ulceration. There was a shallow 5 mm ulceration with oozing in the gastric pouch proximal to the anastomosis. The ulcer was largely clean based, but the proximal edge was oozing. There were a few other erosions and friable mucosa. The ulcer was successfully injected with 2 mL of a 1:10,000 solution of epinephrine for hemostasis. To stop active bleeding, two hemostatic clips were successfully placed. There was no bleeding at the end of the procedure. Thi pouch was biopsied with a cold forceps for histology. The gastrojejunal anastomosis was characterized by healthy appearing mucosa. This was traversed. The examined jejunum was normal. Impression: - Normal esophagus. - Gastric bypass with a pouch 5 cm in length. There was a shallow ulceration within the pouch that was oozing at the proximal edge, along with a few erosions and friability. The ulcer was injected with epinephrine. Clips were placed. Biopsied for H pylori. - Gastrojejunal anastomosis characterized by healthy appearing mucosa. - Normal examined jejunum. Recommendation: - Await pathology results. - Use a proton pump inhibitor PO BID. - Repeat EGD in 2-3 months to follow up ulcer. - No NSAIDs and avoid tobacco. - Trend CBC and transfuse if needed. Attending Participation: I was present and participated during the entire procedure, including non-bolanos portions. Ozzie Pascual M.D. 04/30/2019 2:49:45 PM Number of Addenda: 0 Note Initiated On: 04/30/2019 2:21 PM Recognized by the [employer] for promoting quality in endoscopy ING AND SUEDING MACHINE OPERATOR documented in this encounter Consult Notes * Sandro Stoll MD - 04/30/2019 9:37 AM CSTAssociated Order(s): IP CONSULT TO GASTROENTEROLOGY Gastroenterology Consult Subjective Patient is a 48 y.o. female with chief complaint of melena. Reason for consult: GI Bleed Requesting Provider: Dr Montez HPI: Ms. Addison is a 48 yo AAF with a history of Kay-en-Y gastric bypass surgery (1999), recent admission for GIB with reported GJ anastomotic ulcer, DVT/PE, HTN, hypothyroidism, chronic lymphedema who presents for melena and anemia. The patient was recently admitted to [facility] on 04/15/19. She presented complaining of dark stool and fatigue. She had an EGD during that admission. The report is not available but the patient states that she had an anastomotic ulcer. She also states that there was no active bleeding during her endoscopy. She required a total of 4U PRBC during her stay. She was discharged on 04/24/19. She was suppose to take omeprazole 40mg daily but states she was not given this medication on discharge so she did not take it. She continued to have black stool at home with 2 BM daily. In addition shereports epigastric pain, nausea, fatigue, and some light headedness. She denies emesis. No hematochezia. She has no prior GIB before this recent admission. She denies NSAID use. She does not smoke. She presented to her PCP for evaluation and given ongoing symptoms he recommended she present to EDfor evaluation so she came to [place]. On arrival to ED she was HDS. Hgb found to be 5.6 (reported 7.5 on discharge). She had a KUB done which was negative for free air. She was given 2U PRBC with repeat Hgb of 6.7. She currently complains of some nausea and ongoing epigastric pain. Of note she does have history of LE DVT and PE s/p IVC filter. She was taking xarelto but reports she stopped this when her dark stool started around 04/13 and has not taken it since. Past Medical History: Diagnosis Date ??? Cellulitis ??? CHF (congestive heart failure) (CMS/HCC) ??? DVT (deep venous thrombosis) (CMS/[facility]) ??? Hypertension ??? Lymph edema Past Surgical History: Procedure Laterality Date ??? SECTION ??? GASTRIC BYPASS (Not in a hospital admission) No Known Allergies Social History Tobacco Use ??? Smoking status: Never Smoker ??? Smokeless tobacco: Never Used Substance Use Topics ??? Alcohol use: Yes Family History Problem Relation Age of Onset ??? Diabetes Mother ??? Hypertension Mother ??? Diabetes Father ??? Hypertension Father Social History Socioeconomic History ??? Marital status: Spouse name: Not on file ??? Number of children: Not on file ??? Years of education: Not on file ??? Highest education level: Not on file Occupational History ??? Not on file Social Needs ??? Financial resource strain: Not on file ??? Food insecurity: Worry: Not on file Inability: Not on file ??? Transportation needs: Medical: Not on file Non-medical: Not on file Tobacco Use ??? Smoking status: Never Smoker ??? Smokeless tobacco: Never Used Substance and Sexual Activity ??? Alcohol use: Yes ??? Drug use: Yes Types: Marijuana ??? Sexual activity: Not on file Lifestyle ??? Physical activity: Days per week: Not on file Minutes per session: Not on file ??? Stress: Not on file Relationships ??? Social connections: Talks on phone: Not on file Gets together: Not on file Attends religion service: Not on file Active member of club or organization: Not on file Attends meetings of clubs or organizations: Not on file Relationship status: Not on file ??? Intimate partner violence: Fear of current or ex partner: Not on file Emotionally abused: Not on file Physically abused: Not on file Forced sexual activity: Not on file Other Topics Concern ??? Not on file Social History Narrative Merged History Encounter Born and raised in [place] [facility] [place], no abuse during childhood, has masters degree in finance. Living with son, unemployed, has firearms at home. Has 3 children oldest is 33, youngest is 9. Significant substance use, alcohol, pain pills, marijuana , see HPI for more details. Denies legal history, single, twice. Review of Systems: Review of systems per HPI and otherwise all other systems are negative Vitals: 24hr Min/Max: Temp Min: 36.5 ??C (97.7 ??F) Max: 37.1 ??C (98.8 ??F) Pulse Min: 72 Max: 86 BP Min: 99/58 Max: 120/58 Resp Min: 14 Max: 26 SpO2 Min: 97 % Max: 100 % Most Recent : Vitals: 04/30/19 0400 BP: 99/58 Pulse: 82 Resp: 26 Temp: SpO2: 100% I/O last 2 completed shifts: In: 1100 [Blood:1050; IV Piggyback:50] Out: - No intake/output data recorded. Objective Physical Exam: General: pleasant, comfortable, NAD HEENT: NCAT, PERRL, MMM Neck: supple, no LAD CV: RRR, normal S1, S2, no MRG Lung: CTAB, no wheezing or crackles Abdomen: soft, milt ttp in epigastric region. No rebound. Normal bowel sounds. No organomegaly Skin: no rashes Neuro: A&Ox3, strength and sensation grossly intact Psych: pleasant, appropriate affect Lab/Radiology/Diagnostic Review: Recent Results (from the past 24 hour(s)) CBC with auto differential Collection Time: 04/29/19 8:32 PM Result Value Ref Range WBC 8.2 3.8 - 9.9 K/cumm Hgb 5.6 (Critical) 11.9 - 15.5 g/dL Hct 19.3 (L) 35.6 - 45.5 % Plt 315 150 - 400 K/cumm MPV 10.3 9.1 - 12.3 fL RBC 2.07 (L) 3.90 - 5.20 M/cumm MCV 93.2 81.3 - 96.4 fL MCH 27.1 27.1 - 33.3 pg MCHC 29.0 (L) 32.3 - 35.7 g/dL RDW CV 19.9 (H) 11.1 - 14.9 % RDW SD 64.6 (H) 35.7 - 48.1 fL NRBC abs 0.00 0.00 - 0.01 K/cumm Protime-INR Collection Time: 04/29/19 8:32 PM Result Value Ref Range PT 14.3 (H) 8.6 - 13.0 sec INR 1.3 (H) 0.8 - 1.2 aPTT Collection Time: 04/29/19 8:32 PM Result Value Ref Range aPTT 29 25 - 37 sec Type and screen Collection Time: 04/29/19 8:32 PM Result Value Ref Range Krishan, indirect Negative ABO Rh O Positive Hepatic function panel Collection Time: 04/29/19 8:32 PM Result Value Ref Range Bilirubin, total 0.2 0.1 - 1.2 mg/dL Bilirubin, direct <0.2 0.1 - 0.3 mg/dL Protein, pl 6.1 (L) 6.5 - 8.5 g/dL Albumin 3.4 (L) 3.5 - 5.0 g/dL Alk phos 55 40 - 130 Units/L ALT 13 7 - 45 Units/L AST 20 10 - 45 Units/L Differential, auto Collection Time: 04/29/19 8:32 PM Result Value Ref Range Neutrophil abs 6.1 1.7 - 6.5 K/cumm Imm gran abs 0.0 0.0 - 0.1 K/cumm Lymphocyte abs 1.3 0.8 - 3.3 K/cumm Monocyte abs 0.4 0.2 - 0.8 K/cumm Eosinophil abs 0.2 0.0 - 0.5 K/cumm Basophil abs 0.0 0.0 - 0.1 K/cumm Neutrophil pct 74.6 % Imm gran pct 0.6 % Lymphocyte pct 15.9 % Monocyte pct 5.4 % Eosinophil pct 3.1 % Basophil pct 0.4 % Basic metabolic panel Collection Time: 04/29/19 8:32 PM Result Value Ref Range Sodium 140 135 - 145 mmol/L Potassium, pl 3.8 3.3 - 4.9 mmol/L Chloride 110 97 - 110 mmol/L CO2 24 22 - 32 mmol/L Anion gap 6 2 - 15 mmol/L BUN 13 8 - 25 mg/dL Creatinine 0.93 0.60 - 1.10 mg/dL Glucose 86 70 - 199 mg/dL Calcium 9.0 8.5 - 10.3 mg/dL Haptoglobin Collection Time: 04/29/19 8:32 PM Result Value Ref Range Haptoglobin 110.0 30.0 - 200.0 mg/dL POCT lactate Collection Time: 04/29/19 8:39 PM Result Value Ref Range Lactate POC i-STAT 1.0 0.7 - 2.2 mmol/L Prepare RBC: 2 Units Collection Time: 04/29/19 9:10 PM Result Value Ref Range Product code [id number] Unit Number [id number] Product Blood Type OPOS Dispense Status ISSUED Product code [id number] Unit Number [id number] Product Blood Type OPOS Dispense Status ISSUED Check Sample Collection Time: 04/29/19 9:36 PM Result Value Ref Range ABO Rh O Positive CBC with auto differential Collection Time: 04/30/19 8:05 AM Result Value Ref Range WBC 6.3 3.8 - 9.9 K/cumm Hgb 6.7 (L) 11.9 - 15.5 g/dL Hct 22.6 (L) 35.6 - 45.5 % Plt 277 150 - 400 K/cumm MPV 10.1 9.1 - 12.3 fL RBC 2.45 (L) 3.90 - 5.20 M/cumm MCV 92.2 81.3 - 96.4 fL MCH 27.3 27.1 - 33.3 pg MCHC 29.6 (L) 32.3 - 35.7 g/dL RDW CV 19.1 (H) 11.1 - 14.9 % RDW SD 61.1 (H) 35.7 - 48.1 fL NRBC abs 0.00 0.00 - 0.01 K/cumm Differential, auto Collection Time: 04/30/19 8:05 AM Result Value Ref Range Neutrophil abs 4.8 1.7 - 6.5 K/cumm Imm gran abs 0.0 0.0 - 0.1 K/cumm Lymphocyte abs 0.7 (L) 0.8 - 3.3 K/cumm Monocyte abs 0.4 0.2 - 0.8 K/cumm Eosinophil abs 0.3 0.0 - 0.5 K/cumm Basophil abs 0.0 0.0 - 0.1 K/cumm Neutrophil pct 77.1 % Imm gran pct 0.3 % Lymphocyte pct 11.8 % Monocyte pct 6.2 % Eosinophil pct 4.3 % Basophil pct 0.3 % Plan Ms. Addison is a 48 yo AAF with a history of Kay-en-Y gastric bypass surgery (1999), recent admission for GIB with reported GJ anastomotic ulcer, DVT/PE, HTN, hypothyroidism, chronic lymphedema who presents for melena and anemia. 1. Melena, acute blood loss anemia: patient presents with ongoing melena. Found to have Hgb of 5.6 (from 7.5 6 days prior). Recent endoscopy from OSH with anastomotic ulcer without active bleeding per patient (report not available). Differential for bleeding includes anastomotic ulcer (at GJ and JJanastomosis), other ulcer, AVM, Dieulafoy's. She does report having a colonoscopy around 02/2019 for hematochezia which was reportedly normal. -Will plan for EGD today -Please keep patient NPO -Continue IV PPI BID -Avoid NSAIDs -Maintain 2 large bore IV for access -Please obtain OSH EGD report The General GI service will continue to follow. Please do not hesitate the contact the GI service with any questions or concerns. We can be reached Saturday through Saturday from 0800 to 1700 at [phone]. From 1700 to 0800 Saturday through Saturday and all day Saturday/Saturday, we can be reached at [phone]. Cosigned by Ozzie Pascual MD at 05/02/2019 7:10 PM BUFFING AND SUEDING MACHINE OPERATOR ING AND SUEDING MACHINE OPERATOR ING AND SUEDING MACHINE OPERATOR Associated attestation - Ozzie Pascual MD - 05/02/2019 7:10 PM BUFFING AND SUEDING MACHINE OPERATOR I have seen and examined the patient on 04/30/19. I agree with the findings and plan of care as documented in the resident's/fellow's note. documented in this encounter ED Notes * Soo Basilio RN - 04/30/2019 10:45 AM CST Bed: [facility] Expected date: Expected time: Means of arrival: Comments: em 3 pt Soo Basilio RN 04/30/19 1045 ING AND SUEDING MACHINE OPERATOR * Phil Morillo MD - 04/29/2019 10:40 PM CST ED Attending Note Patient was seen by the resident physician. Please see their note for complete details of the initial history and physical exam. My brief history, exam and medical decision making is listed below: 47-year-old woman with past medical history of hypertension, lymphedema, DVT on Xarelto, here with bloody stools for 2 weeks. She was admitted for approximately 7 days starting on the 17 of Aprilto an outside hospital. By report she had a gastric ulcer and was transfused. She reports not currently being on a PPI outpatient. He she had recurrent melena. She also has dizziness and dyspnea on e xertion. Plan for labs, type and screen, CBC, BMP, coags. Patient's hemoglobin is 5.2 plan for transfusion of 2 units. Plan to contact GI and admit for further evaluation. MARY Morillo MD Attending Emergency Physician Phil Morillo MD 04/29/19 0725 ING AND SUEDING MACHINE OPERATOR * Phil Morillo MD - 04/29/2019 7:46 PM CST HPI Chief Complaint Patient presents with ??? Dizziness ??? Black or Bloody Stool 47 year old female with HTN, PSA, chronic lymphedema and DVT (on xarelto), here with bloody stools x2 weeks. She was seen at [facility] at initial bloody stool onset, described as bright red blood followed by black stools. Unable to view OSH records, so history of workup/admission based on patient report: An upper endoscopy was done that showed an ulcer per patient, and had low Hb requiring blood transfusion. She was admitted 04/17, and was discharge w/Hb 7.5 5 days ago on 04/24/19. [place] stools are still really dark/black, continues to feel light headed and dizzy. She continues tocomplain of abdominal in the epigastric area that is nonradiating and constant, as well as intermitt ent shooting pain in her RLQ. She is urinating normally without hematuria. Saw her doctor today as a follow up from her admission, who recommended patient come to ED if she continues to be sympomatic. Patient states she continues to have lightheadedness, worse with walking up stairs, and persistentblack stools prompting ED visit. Patient History Patient Active Problem List Diagnosis Date Noted ??? Congestive heart failure (CHF) (CMS/HCC) 04/30/2019 ??? Hypothyroidism 04/30/2019 ??? Acute upper GI bleed 04/30/2019 ??? Acute blood loss anemia 04/30/2019 ??? alcohol use disorder (CMS/HCC) 02/04/2018 ??? Dementia associated with alcoholism (CMS/HCC) 02/04/2018 ??? Cognitive and behavioral changes 02/04/2018 ??? History of DVT (deep vein thrombosis) 02/04/2018 ??? Chronic acquired lymphedema 02/04/2018 ??? Hypertension 02/04/2018 ??? Anemia 02/04/2018 ??? Polysubstance abuse (CMS/HCC) 02/04/2018 Past Medical History: Diagnosis Date ??? Cellulitis ??? CHF (congestive heart failure) (CMS/HCC) ??? DVT (deep venous thrombosis) (CMS/HCC) ??? Hypertension ??? Lymph edema Past Surgical History: Procedure Laterality Date ??? SECTION ??? GASTRIC BYPASS Family History Problem Relation Age of Onset ??? Diabetes Mother ??? Hypertension Mother ??? Diabetes Father ??? Hypertension Father Social History Tobacco Use ??? Smoking status: Never Smoker ??? Smokeless tobacco: Never Used Substance Use Topics ??? Alcohol use: Yes ??? Drug use: Yes Types: Marijuana Social History Patient does not qualify to have social determinant information on file (likely too young). Social History Narrative Merged History Encounter Born and raised in [facility], no abuse during childhood, has masters degree in finance. Living with son, unemployed, has firearms at home. Has 3 children oldest is 33, youngest is 9. Significant substance use, alcohol, pain pills, marijuana , see HPI for more details. Denies legal history, single, twice. Review of Systems Review of Systems Constitutional: Positive for fatigue. Negative for fever. Respiratory: Positive for shortness of breath. Gastrointestinal: Positive for abdominal pain and blood in stool. Negative for abdominal distention, constipation, diarrhea, nausea, rectal pain and vomiting. Neurological: Positive for dizziness and light-headedness. All other systems reviewed and are negative. Physical Exam ED Triage Vitals Temp Pulse Resp BP SpO2 04/29/19 1800 04/29/19 1800 04/29/19 1800 04/29/19 1800 04/29/19 1800 36.5 ??C (97.7 ??F) 80 16 117/52 100 % Temp src Heart Rate Source Patient Position BP Location FiO2 (%) 04/30/19 0050 04/30/19 0210 04/30/19 0210 04/30/19 0210 -- Oral Monitor Lying Left arm Physical Exam Constitutional: General: She is not in acute distress. Appearance: She is not ill-appearing. HENT: Head: Normocephalic and atraumatic. Nose: Nose normal. Mouth/Throat: Comments: Pale mucous membranes Eyes: Comments: Pale conjunctiva Neck: Musculoskeletal: Neck supple. Cardiovascular: Rate and Rhythm: Normal rate and regular rhythm. Pulses: Normal pulses. Heart sounds: Murmur present. Comments: 2/6 systolic flow murmur Pulmonary: Effort: Pulmonary effort is normal. Breath sounds: Normal breath sounds. Abdominal: General: Abdomen is flat. There is no distension. Tenderness: There is tenderness. There is no guarding or rebound. Comments: Tenderness to palpation in epigastrum Musculoskeletal: Comments: Sonam TITUS with chronic lymphedema, normal distal pulses Skin: Capillary Refill: Capillary refill takes less than 2 seconds. Neurological: General: No focal deficit present. Mental Status: She is alert and oriented to person, place, and time. MDM MDM Number of Diagnoses or Management Options Gastrointestinal hemorrhage with melena: Diagnosis management comments: 48yo F with medical history as above who presents with GI bleed. Given discharge low hemoglobin of 7.5 and ongoing bleeding, concerned that patient likely will require transfusions. Will obtain CBC, CMP, coags, and discuss with GI. Will also obtain an upright and decubitus abdominal x-ray to look for free air. Amount and/or Complexity of Data Reviewed Clinical lab tests: reviewed Tests in the radiology section of CPT??: reviewed Attending Summary of Care I have seen and examined the patient on 04/29/2019. I reviewed the resident's note and agree with the findings and plan of care as documented in the resident's note with modifications as documented inmy note. ED Course as of Apr 30 1139 Time: 04/29 2235 Value: Hgb(!!): 5.6 Comment: (Reviewed) By: Glory Palafox MD Time: 04/29 2241 Comment: Will give 2u pRBCs. Discussed with GI - will admit to medicine with plan for scope tmw. By: Glory Palafox MD Time: 04/29 2253 Comment: KUB without evidence of perforation per my read. Still awaiting blood. Will By: Glory Palafox MD Time: 04/29 2302 Comment: Signout given to floor team. Patient signed out to Dr. Bartlett, on coming ED resident. By: Glory Palaofx MD Time: 04/30 5165 Comment: GI is aware of patient. Will plan for EGD today. By: Scout Santana MD Time: 04/30 1032 Comment: Patient is getting 3rd unit of blood. GI is planning on scoping patient afterwards. By: Scout Santana MD Time: 04/30 1118 Comment: Pt scheduled for EGD today. Currently receiving unit of blood. Denies dizziness currently. By: DENNISE Ricketts Gastrointestinal hemorrhage with melena Glory Palafox MD 04/29/19 2312 Phil Morillo MD 04/30/19 1141 ING AND SUEDING MACHINE OPERATOR ING AND SUEDING MACHINE OPERATOR * Lotus Faustin RN - 04/29/2019 7:45 PM CST Bed: ED1-09 Expected date: Expected time: Means of arrival: Ambulance Comments: Lotus Faustin RN 04/29/191944 ING AND SUEDING MACHINE OPERATOR * Phylicia Zuluaga RN - 04/29/2019 6:02 PM CST Recently seen at [facility] for GI bleed. Had to get 5 blood transfusions. Had scope and found ulcer in upper GI but states ultimately could not find the source of the bleeding. Still havingblack stools. No vomiting. Also reports hemoglobin 7.3 when she was dc'd from OSH. Reports feeling dizzy and faint today, checked BP at home and was 90/40. ING AND SUEDING MACHINE OPERATOR documented in this encounter Miscellaneous Notes * Plan of Care - Avinash Hobbs RN - 05/02/2019 12:18 PM CST Goals: Clinical Goals for the Shift: Patient will report adequate pain control, will be hemodynamically stable Summary: Patient's pain controlled with PRN morphine. Patient has been hemodynamically stable todayand has been free from fall/injury. Patient to discharge home today with her son picking her up. Discharge instructions explained to patient with patient verbalizing understanding & no questions from patient. Pt states home medications were previously taken home by her son. Pt discharged with all belongings. Problem: Health Behavior: Goal: Understanding of discharge needs will improve Outcome: Adequate for Discharge Problem: Activity: Goal: Ability to return to normal activity level will improve Outcome: Adequate for Discharge Problem: Lack of Knowledge: Goal: Knowledge of the prescribed therapeutic regimen will improve Outcome: Adequate for Discharge Problem: Coping: Goal: Ability to cope will improve Outcome: Adequate for Discharge Problem: Bowel/Gastric: Goal: Will show no signs and symptoms of gastrointestinal bleeding Outcome: Adequate for Discharge Problem: Cognitive: Goal: Verbalization of understanding the information provided will improve Outcome: Adequate for Discharge Problem: Fluid Volume: Goal: Ability to maintain a balanced intake and output will improve Outcome: Adequate for Discharge Goal: Will show no signs and symptoms of excessive bleeding Outcome: Adequate for Discharge Problem: Physical Regulation: Goal: Diagnostic test results will improve Outcome: Adequate for Discharge Goal: Complications related to the disease process, condition or treatment will be avoided or minimized Outcome: Adequate for Discharge ING AND SUEDING MACHINE OPERATOR * Plan of Care - Seema Lam RN - 05/02/2019 2:55 AM CST Goals: Problem: Health Behavior: Goal: Understanding of discharge needs will improve Outcome: Progressing Problem: Activity: Goal: Ability to return to normal activity level will improve Outcome: Progressing Problem: Lack of Knowledge: Goal: Knowledge of the prescribed therapeutic regimen will improve Outcome: Progressing Problem: Coping: Goal: Ability to cope will improve Outcome: Progressing Problem: Bowel/Gastric: Goal: Will show no signs and symptoms of gastrointestinal bleeding Outcome: Progressing Problem: Cognitive: Goal: Verbalization of understanding the information provided will improve Outcome: Progressing Problem: Fluid Volume: Goal: Ability to maintain a balanced intake and output will improve Outcome: Progressing Goal: Will show no signs and symptoms of excessive bleeding Outcome: Progressing Problem: Physical Regulation: Goal: Diagnostic test results will improve Outcome: Progressing Goal: Complications related to the disease process, condition or treatment will be avoided or minimized Outcome: Progressing Clinical Goals for the Shift: Patient will have stable HGB and adequate pain control. Summary: Hgb improving. Pain controlled with prn morphine. VSS. Patient showered tonight; linens changed. Assessment otherwise as charted. Will continue to monitor. ING AND SUEDING MACHINE OPERATOR * Plan of Rich - Cecil David Jr., RN - 05/01/2019 3:18 PM CST Problem: Activity: Goal: Ability to return to normal activity level will improve Outcome: Progressing Problem: Lack of Knowledge: Goal: Knowledge of the prescribed therapeutic regimen will improve Outcome: Progressing Problem: Coping: Goal: Ability to cope will improve Outcome: Progressing Problem: Bowel/Gastric: Goal: Will show no signs and symptoms of gastrointestinal bleeding Outcome: Progressing Problem: Cognitive: Goal: Verbalization of understanding the information provided will improve Outcome: Progressing Problem: Fluid Volume: Goal: Ability to maintain a balanced intake and output will improve Outcome: Progressing Goal: Will show no signs and symptoms of excessive bleeding Outcome: Progressing Problem: Physical Regulation: Goal: Diagnostic test results will improve Outcome: Progressing Goal: Complications related to the disease process, condition or treatment will be avoided or minimized Outcome: Progressing Goals: Clinical Goals for the Shift: Pain control, monitor HGB Summary: The patient's pain was controlled with the use of IV morphine. The patient's peripheral IV was leaking and removed at 1355. The patient's HGB did decrease to 7.9. Will continue to monitor. ING AND SUEDING MACHINE OPERATOR * Hospital Course - Jesse Xiao - 05/01/2019 10:52 AM CST Tiarra Addison is a 48 y.o. F w/ history of GBP (kay-en-Y in 1999), PE/DVT s/p IVC filter placementand on Xarelto (last taken on 04/13/2019). Pt's melena started on 04/13/2019. She noticed she was having black and tarry stools and she was admitted to [facility] on 04/15/2019. During her course at OSH she received 4 units pRBC and underwent upper endoscopy, which showed non-bleeding ulcer at the anastomosis. She was d/c on 04/24/2019 while she was still having black, tarry stools. She continued to experience melena about 2x/day at home. She takes her own BP and noticed her BP decreasing and felt dizzy. At this point she presented to [facility] (on 04/29/2019). At [place], her Hb was measured as 5.6 and she received 2 units of pRBC. Hb then measured 6.7. She also had new epigastric pain about 3 wks prior to development of melena. She had some gagging/nausea, but not emesis. Other background: Patient had BRBPR in July of 2018. Colonoscopy at the time showed no hemorrhoids, no diverticula. In same month she had VTE episode and started on Xarelto. She has never before had melena. Problems: Melena and Blood Loss Anemia: Most likely 2/2 upper GI bleed. Stool is black and tarry, which indicates upper GI source of bleeding. Her past GBP (kay-en-Y) is a risk factor for the development of ableeding ulcer (shantal at the site of anastomosis). 04/29/2019: pt's hgb was 5.6, given 2 units of pRBC and improved to 6.7. 04/30/2019: given another unit of pRBC and Hb improved to 8.6. EDG 5 mm ulcerin gastric pouch that was oozing. Epi injected and hemostatic clips placed. Plan to repeat EGD in 2-3 mo to evaluate ulcer. PPI PO BID. Trend CBC and transfuse as needed. 05/01/2019: Patient not experiencing dizziness/fatigue. Continuing to monitor Hb levels. Possible d/c tomorrow pending Hb stability. She is still experiencing some abdominal pain in the epigastric region to deep palpation. Hypothyroidism: 04/29/2019: Her hypothyroidism was newly Dx at OSH. Outside records have been requested. Continuing home levothyroxine. ?? CHF: 04/29/2019. CHF dx at [facility] in Feb 2019. Requested records from [facility]. Holding home metop and furosemide in setting of volume loss. ?? VTE Hx: 04/29/2019: VTE last July. Patient held her own Xarelto in s/o melena starting 04/13/2019.SCDs for prevention. ING AND SUEDING MACHINE OPERATOR ING AND SUEDING MACHINE OPERATOR ING AND SUEDING MACHINE OPERATOR ING AND SUEDING MACHINE OPERATOR ING AND SUEDING MACHINE OPERATOR ING AND SUEDING MACHINE OPERATOR * Medical Student - Jesse Xiao - 05/01/2019 10:43 AM CST Med Firm Daily Progress Subjective Reason for admission: Melena Interval History: Patient underwent EGD yesterday. Discovered 5 mm ulcer in gastric ouch that was oozing. Ulcer had clean base. Epi injected, and 2 hemostatic clips were placed. Her anastomosis looked clean, and she had normal jejunum beyond anastomosis. She feels good today. She has not had dizziness or fatigue, but has not pushed herself (which caused those symptoms prior to presentation). She has not had a BM since EGD. She understands that her Hgb levels will dictate whether she can leave tomorrow, and if so, she feels ready. Objective Scheduled Medications: ferrous sulfate, 65 mg of elemental iron, oral, Daily with breakfast pantoprazole, 40 mg, intravenous, BID sodium chloride 0.9%, 0.5-20 mL, intra-catheter, Q8H KENTRELL sodium chloride 0.9%, 0.5-20 mL, intra-catheter, Q8H KENTRELL Continuous Medications: sodium chloride 0.9%, 30 mL/hr, Last Rate: Stopped (04/30/19 1527) PRN Medications: morphine ??? ondansetron ??? ramelteon ??? sodium chloride 0.9% ??? sodium chloride 0.9% Vitals: Morning Vitals: Temp: 97.9F HR: 79 RR: 18 BP: 96/48 SpO2: 100% on room air 24hr Min/Max: Temp Min: 36 ??C (96.8 ??F) Max: 37.6 ??C (99.7 ??F) Pulse Min: 65 Max: 79 BP Min: 91/67 Max: 126/70 Resp Min: 13 Max: 24 SpO2 Min: 98 % Max: 100 % Physical Exam Constitutional: General: She is not in acute distress. Appearance: She is obese. She is not toxic-appearing. HENT: Head: Normocephalic and atraumatic. Cardiovascular: Rate and Rhythm: Normal rate and regular rhythm. Heart sounds: Normal heart sounds. No murmur. No friction rub. No gallop. Pulmonary: Effort: Pulmonary effort is normal. No respiratory distress. Breath sounds: Normal breath sounds. No stridor. No wheezing, rhonchi or rales. Abdominal: General: Bowel sounds are normal. Palpations: Abdomen is soft. Tenderness: There is tenderness to deeper palpation of the epigastric region. No other regions painful to palpation. Skin: General: Skin is dry. Neurological: Mental Status: She is alert. Lab/Radiology/Diagnostic Review: Lab Results Component Value Date WBC 8.9 04/30/2019 HGB 8.6 (L) 04/30/2019 HCT 28.0 (L) 04/30/2019 MCV 91.5 04/30/2019 LABPLAT 304 04/30/2019 Lab Results Component Value Date GLUCOSE 93 04/30/2019 CALCIUM 9.1 04/30/2019 SODIUM 140 04/30/2019 POTASSIUM 4.0 04/30/2019 CO2 24 04/30/2019 CHLORIDE 108 04/30/2019 BUNSER 11 04/30/2019 CREATININE 0.86 04/30/2019 Imaging Results: Xr Abdomen Erect And Or Decubitus 2 Views Result Date: 04/30/2019 Supine and upright views of the abdomen are submitted for evaluation. Inferior vena cava filter is seen in the level of L2-L3.Sutures are seen in the left upper quadrant from prior gastric bypass surgery. Rounded metallic bodies are seen in the pelvis and maybe from prior surgery, possibly tubal ligation clips. The visualized bowel gas pattern is nonobstructive. No free gas is seen. Lung bases are clear. The hip joints are normal. Dictated by: Wesly Chase M.D. Assessment/Plan: Pt is a 48 y.o. F w/ history of GBP (kay-en-Y in 1999), PE/DVT s/p IVC filter placement and on Xarelto who presents w/ melena that started on 04/15/2019. Melena and Blood Loss Anemia: Most likely 2/2 upper GI bleed. Stool is black and tarry, which indicates upper GI source of bleeding. Her past GBP (kay-en-Y) is a risk factor for the development of ableeding ulcer (shantal at the site of anastomosis). - EDG yesterday showed 5 mm ulcer in gastric ouch that was oozing. - Epi and hemostatic clips placed. - GI recommends: - Repeat EGD in 2-3 mo to evaluate ulcer progression - PPI PO BID - Avoid NSAIDS and tobacco - Trend CBC and transfuse as needed. - Plan for d/c tomorrow pending stability of Hb levels - Gave another unit of blood yesterday. Hb improved from 6.7 to 8.6. - CBC's today PM and tomorrow AM - Monitor on Tele Hypothyroidism: - Newly Dx at OSH. - Requested outside records - Cont home levothyroxine CHF: - Recently dx at [facility] in Feb 2019. - requested records from [facility] - Hold home metop and furosemide in setting of volume loss. VTE Hx: - VTE last July - Hold Xarelto in s/o bleed - SCDs for prevention. Code Status: Full Code Diet: Adult Diet Restricted; 2 GM Sodium DVT Prophylaxis: use SCDs for prevention. Jesse Xiao 05/01/2019 10:44 AM Cosigned by Norberto Hickey MD at 05/01/2019 1:31 PM BUFFING AND SUEDING MACHINE OPERATOR ING AND SUEDING MACHINE OPERATOR ING AND SUEDING MACHINE OPERATOR * Plan of Care - Rosalia Royal RN - 05/01/2019 5:12 AM CST Problem: Health Behavior: Goal: Understanding of discharge needs will improve Outcome: Progressing Problem: Activity: Goal: Ability to return to normal activity level will improve Outcome: Progressing Problem: Lack of Knowledge: Goal: Knowledge of the prescribed therapeutic regimen will improve Outcome: Progressing Problem: Coping: Goal: Ability to cope will improve Outcome: Progressing Problem: Bowel/Gastric: Goal: Will show no signs and symptoms of gastrointestinal bleeding Outcome: Progressing Problem: Cognitive: Goal: Verbalization of understanding the information provided will improve Outcome: Progressing Problem: Fluid Volume: Goal: Ability to maintain a balanced intake and output will improve Outcome: Progressing Goal: Will show no signs and symptoms of excessive bleeding Outcome: Progressing Problem: Physical Regulation: Goal: Diagnostic test results will improve Outcome: Progressing Goal: Complications related to the disease process, condition or treatment will be avoided or minimized Outcome: Progressing Goals: Clinical Goals for the Shift: Pt will have no epidsoes of melena and have stable hgb Summary: patient had no episodes of melena, patient's hgb 8.6 and vitals stable. Patient received PRN morphine for pain, will continue to monitor. ING AND SUEDING MACHINE OPERATOR * Plan of Care - Cecil David Jr., RN - 04/30/2019 6:27 PM CST Problem: Health Behavior: Goal: Understanding of discharge needs will improve Outcome: Progressing Problem: Activity: Goal: Ability to return to normal activity level will improve Outcome: Progressing Problem: Lack of Knowledge: Goal: Knowledge of the prescribed therapeutic regimen will improve Outcome: Progressing Problem: Coping: Goal: Ability to cope will improve Outcome: Progressing Problem: Bowel/Gastric: Goal: Will show no signs and symptoms of gastrointestinal bleeding Outcome: Progressing Problem: Cognitive: Goal: Verbalization of understanding the information provided will improve Outcome: Progressing Problem: Fluid Volume: Goal: Ability to maintain a balanced intake and output will improve Outcome: Progressing Goal: Will show no signs and symptoms of excessive bleeding Outcome: Progressing Problem: Physical Regulation: Goal: Diagnostic test results will improve Outcome: Progressing Goal: Complications related to the disease process, condition or treatment will be avoided or minimized Outcome: Progressing Goals: Clinical Goals for the Shift: [place] to unit, pain control Summary: The patient's assessment and admission process were completed. The patient's prn pain med was administered for pain. ING AND SUEDING MACHINE OPERATOR * Medical Student - Jesse Xiao - 04/30/2019 2:43 PM CST Med Firm Daily Progress Subjective Reason for admission: Melena Interval History: Background: Pt is a 48 y.o. F w/ history of GBP (kay-en-Y in 1999), PE/DVT s/p IVC filter placement and on Xarelto. Pt's melena started on 04/15/2019. She noticed she was having black and tarry stools and she was admitted to [facility] at that time. During her course at OSH she received 4units pRBC and underwent upper endoscopy, which showed non-bleeding ulcer at the anastomosis. She was d/c on 04/24/2019 while she was still having black, tarry stools. She continued to experience melena about 2x/day at home. She takes her own BP and noticed her BP decreasing and felt dizzy. At thispoint she presented to [place] (yesterday). She also had new epigastric pain about 3 wks prior to development of melena. She had some gagging/nausea, but not emesis. She has not been taking Xarelto since 04/13/2019. Patient had BRBPR in July of 2018. Colonoscopy at the time showed no hemorrhoids, no diverticula. In same month she had VTE episode and started on Xarelto. She has never before had melena. s At [facility], her Hb was measured as 5.6 and she received 2 units of pRBC. Hb then measured 6.7. She is still experiencing some abdominal pain in the epigastric region. Objective Scheduled Medications: sodium chloride 0.9%, 0.5-20 mL, intra-catheter, Q8H KENTRELL Continuous Medications: dextrose 5% and sodium chloride 0.9%, 100 mL/hr, Last Rate: 100 mL/hr (04/29/19 2350) sodium chloride 0.9%, 30 mL/hr, Last Rate: 30 mL/hr (04/30/19 1347) [JUN Hold] sodium chloride 0.9%, 0-250 mL PRN Medications: [JUN Hold] morphine ??? [JUN Hold] ondansetron ??? sodium chloride 0.9% ??? sodium chloride 0.9% Vitals: Morning Vitals: Temp: 98.4 HR: 82 RR: 26 BP: 99/58 SpO2: 100% on room air 24hr Min/Max: Temp Min: 36 ??C (96.8 ??F) Max: 37.1 ??C (98.8 ??F) Pulse Min: 68 Max: 86 BP Min: 97/62 Max: 120/58 Resp Min: 14 Max: 26 SpO2 Min: 97 % Max: 100 % Physical Exam Constitutional: General: She is not in acute distress. Appearance: She is obese. She is not toxic-appearing. HENT: Head: Normocephalic and atraumatic. Cardiovascular: Rate and Rhythm: Normal rate and regular rhythm. Heart sounds: Normal heart sounds. No murmur. No friction rub. No gallop. Pulmonary: Effort: Pulmonary effort is normal. No respiratory distress. Breath sounds: Normal breath sounds. No stridor. No wheezing, rhonchi or rales. Abdominal: General: Bowel sounds are normal. Palpations: Abdomen is soft. Tenderness: There is tenderness to deeper palpation of the epigastric region. No other regions painful to palpation. Musculoskeletal: General: Swelling and tenderness present. Right lower leg: +1 pitting Edema present above ankles Left lower leg: +1 pitting Edema present above ankles Both LE have increased non-pitting swelling above a 3 inch region of +1 pitting edema. Skin: General: Skin is dry. Neurological: Mental Status: She is alert. Lab/Radiology/Diagnostic Review: Lab Results Component Value Date WBC 6.3 04/30/2019 HGB 6.7 (L) 04/30/2019 HCT 25.0 (L) 04/30/2019 MCV 92.2 04/30/2019 LABPLAT 277 04/30/2019 Lab Results Component Value Date GLUCOSE 86 04/29/2019 CALCIUM 9.0 04/29/2019 SODIUM 140 04/29/2019 POTASSIUM 3.8 04/29/2019 CO2 24 04/29/2019 CHLORIDE 110 04/29/2019 BUNSER 13 04/29/2019 CREATININE 0.93 04/29/2019 Imaging Results: Xr Abdomen Erect And Or Decubitus 2 Views Result Date: 04/30/2019 Supine and upright views of the abdomen are submitted for evaluation. Inferior vena cava filter is seen in the level of L2-L3.Sutures are seen in the left upper quadrant from prior gastric bypass surgery. Rounded metallic bodies are seen in the pelvis and maybe from prior surgery, possibly tubal ligation clips. The visualized bowel gas pattern is nonobstructive. No free gas is seen. Lung bases are clear. The hip joints are normal. Dictated by: Wesly Chase M.D. Assessment/Plan: Pt is a 48 y.o. F w/ history of GBP (kay-en-Y in 1999), PE/DVT s/p IVC filter placement and on Xarelto who presents w/ melena that started on 04/15/2019. Melena and Blood Loss Anemia: Most likely 2/2 upper GI bleed. Stool is black and tarry, which indicates upper GI source of bleeding. Her past GBP (kay-en-Y) is a risk factor for the development of ableeding ulcer (shantal at the site of anastomosis). Bleeding ulcer may be at lower site of anastomosis. Bleeding risk elevated in setting of Xarelto, although pt has not taken for 17 days. - Upper endoscopy at OSH showed non-bleeding ulcer - Repeat upper endoscopy today with GI. - Patient received 2 units of blood and Hb improved from 5.6 to 6.7. Give another unit of blood. - Access w/ 2 large-bore IVs. - CBC after transfusion. - Monitor on Tele - Pt has PUD history, so give IV protonix BID. Hypothyroidism: - Newly Dx at OSH. - Requested outside records - Cont home levothyroxine CHF: - Recently dx at [facility] in Feb 2019. - requested records from [facility] - Hold home metop and furosemide in setting of volume loss. VTE Hx: - VTE last July - Hold Xarelto in s/o bleed - SCDs for prevention. Code Status: Full Code Diet: NPO Diet DVT Prophylaxis: use SCDs for prevention. Jesse Xiao 04/30/2019 2:43 PM Cosigned by Norberto Hickey MD at 04/30/2019 3:34 PM BUFFING AND SUEDING MACHINE OPERATOR ING AND SUEDING MACHINE OPERATOR ING AND SUEDING MACHINE OPERATOR ING AND SUEDING MACHINE OPERATOR * ED Observation Provider Note - Nicolle Galo PA - 04/30/2019 12:50 PM CST ED Boarder Note History -48 y/o F PMH HTN, Lymphedema, DVT on Xarelto, presents with dizziness and bloody stools for the past 2 weeks. Pt states dizziness has improved. GI has been consulted. Dose of IV PPI. EGD today Exam - AnO4, RRR, CTAB, abdomen soft, mildly tender at epigastrum; RLE edematous MDM - Receiving unit of blood, EGD today, admit to medicine Cosigned by Cecil Carver MD at 05/01/2019 9:19 PM BUFFING AND SUEDING MACHINE OPERATOR ING AND SUEDING MACHINE OPERATOR ING AND SUEDING MACHINE OPERATOR Associated attestation - Cecil Carver MD - 05/01/2019 9:19 PM BUFFING AND SUEDING MACHINE OPERATOR I have seen and examined the patient on 04/29/2019 in conjunction with DENNISE Galo My findings and recommendations are to continue the infusion of blood and admit for EGD * ED Re-evaluation Note - Scout Santana MD - 04/30/2019 7:06 AM BUFFING AND SUEDING MACHINE OPERATOR ED Re-evaluation TRANSITION OF CARE: I, Scout Santana MD, am taking signout from Dr. Bartlett (Resident) under supervision of Dr. Carver (Attending). I have reviewed all pertinent vital signs, allergies, and history available in the chart. Summary: 48 y.o. female with HTN, PSA, chronic lymphedema and DVT (on xarelto), here with bloody stools x2 weeks Pending: post-transfusion CBC Dispo: admission to medicine ED Course as of May 01 1721 Time: 04/29 2235 Value: Hgb(!!): 5.6 Comment: (Reviewed) By: Glory Palafox MD Time: 04/29 2241 Comment: Will give 2u pRBCs. Discussed with GI - will admit to medicine with plan for scope tmw. By: Glory Palafox MD Time: 04/29 2253 Comment: KUB without evidence of perforation per my read. Still awaiting blood. Will By: Glory Palafox MD Time: 04/29 2303 Comment: Signout given to floor team. Patient signed out to Dr. Bartlett, on coming ED resident. By: Glory Palafox MD Time: 04/30 0811 Comment: GI is aware of patient. Will plan for EGD today. By: Scout Santana MD Time: 04/30 1032 Comment: Patient is getting 3rd unit of blood. GI is planning on scoping patient afterwards. By: Scout Santana MD Time: 04/30 1118 Comment: Pt scheduled for EGD today. Currently receiving unit of blood. Denies dizziness currently. By: DENNISE Ricketts MD Resident 05/01/19 3732 ING AND SUEDING MACHINE OPERATOR * Assessment & Plan Note - Cari Landers MD - 04/30/2019 5:31 AM BUFFING AND SUEDING MACHINE OPERATOR Associated Problem(s): Acute blood loss anemia Hgb to 5.6 in the setting of melenic stools. S/p 2u pRBC in ED. -q8h CBC, T&S, consented -further management as listed under upper GI bleed ING AND SUEDING MACHINE OPERATOR ING AND SUEDING MACHINE OPERATOR * Assessment & Plan Note - Cari Landers MD - 04/30/2019 2:23 AM BUFFING AND SUEDING MACHINE OPERATOR Associated Problem(s): Acute upper GI bleed 2 week hx melenic stools. Per pt, admitted to [facility] on 04/14 and d/c 04/24; sherequired multiple units pRBC and states EGD demonstrated non-bleeding ulcer with bleeding from unclear source. Likely related to PUD, given ulcer finding on outside EGD, in setting of anticoag use. Discharged with a Hgb 7.3 and presented to ED on 04/29 with persistent melenic stools and Hgb 5.6. INR1.3 KUB negative for perf/free air. GI notified of patient's presence in ED, plan for EGD on 04/30. Last dose of xarelto ~04/15/19. S/p 2 units pRBC in ED. - Requested [facility] records - 2 Large bore IVs - NPO for EGD - Q8H CBCs, T&S, consented - Transfuse for Hgb<7 - IV protonix BID - Monitor on Telemetry - avoid NSAIDs, ASA, anticoagulants ING AND SUEDING MACHINE OPERATOR ING AND SUEDING MACHINE OPERATOR ING AND SUEDING MACHINE OPERATOR ING AND SUEDING MACHINE OPERATOR * Assessment & Plan Note - Cari Landers MD - 04/30/2019 2:21 AM BUFFING AND SUEDING MACHINE OPERATOR Associated Problem(s): Hypothyroidism Pt with reported new diagnosis of hypothyroidism and prescription of levothyroxine 50mcg. -Requested [facility] Records -Repeat TSH -Will start home levothyroxine pending TSH ING AND SUEDING MACHINE OPERATOR * Assessment & Plan Note - Cari Landers MD - 04/30/2019 2:20 AM BUFFING AND SUEDING MACHINE OPERATOR Associated Problem(s): Congestive heart failure (CHF) (CMS/HCC) (HCC) Per patient, recently diagnosed at [facility] (02/2019). - Requested [facility] Records to be faxed over - Hold home metop XL and furosemide ING AND SUEDING MACHINE OPERATOR * Assessment & Plan Note - Cari Landers MD - 04/30/2019 2:19 AM BUFFING AND SUEDING MACHINE OPERATOR Associated Problem(s): Hypertension Reviewed patient's medication bottles at bedside. Currently takes lisinopril 10mg, hydrochlorothiazide (HCTZ) 25mg, metop xl 25mg, furosemide 40mg daily. -Hold home BP meds due to normotension and GIB ING AND SUEDING MACHINE OPERATOR * Assessment & Plan Note - Cari Landers MD - 04/30/2019 2:18 AM BUFFING AND SUEDING MACHINE OPERATOR Associated Problem(s): History of DVT (deep vein thrombosis) Prior DVTs/PEs. S/p IVC filter placement. On Xarelto at home, last dose reportedly around ~04/15/19, as she stopped this medication around the time she started developing melenic stools. - Hold Xarelto iso bleed - SCDs ING AND SUEDING MACHINE OPERATOR * ED Procedure Note - Re Montez MD - 04/30/2019 1:06 AM CSTAssociated Order(s): Peripheral line insertion Procedure Peripheral line insertion Date/Time: 04/30/2019 1:06 AM Performed by: Angely Hou MD Authorized by: Re Montez MD Indications: Nursing unable to obtain Pre-procedure details: Sterile barrier technique: All elements of maximal sterile technique followed Skin preparation: 2% chlorhexidine Skin preparation agent: Skin preparation agent completely dried prior to procedure Anesthesia (see MAR for exact dosages): Anesthesia method: None Procedure details: Catheter size: 20 G Laterality: Right Location: Upper arm Number of attempts: 1 Ultrasound guidance was used to confirm vessel patency and needle position: Yes Successful placement: yes Post-procedure details: Post-procedure: Occlusive dressing applied Patient tolerance of procedure: Tolerated well, no immediate complications I was present for the entire procedure Angely Hou MD Resident 04/30/19 [id number] Re Montez MD 04/30/19 0731 ING AND SUEDING MACHINE OPERATOR ING AND SUEDING MACHINE OPERATOR ING AND SUEDING MACHINE OPERATOR * ED Procedure Note - Angely Hou MD - 04/29/2019 11:49 PM BUFFING AND SUEDING MACHINE OPERATOR Associated Order(s): Peripheral line insertion Procedure Peripheral line insertion Date/Time: 04/29/2019 11:49 PM Performed by: Angely Hou MD Authorized by: Re Montez MD Indications: Nursing unable to obtain Pre-procedure details: Hand hygiene: Hand hygiene performed prior to insertion Skin preparation: 2% chlorhexidine Skin preparation agent: Skin preparation agent completely dried prior to procedure Anesthesia (see MAR for exact dosages): Anesthesia method: None Procedure details: Catheter size: 18 G Laterality: Left Location: Upper arm Number of attempts: 1 Ultrasound guidance was used to confirm vessel patency and needle position: Yes Successful placement: yes Post-procedure details: Post-procedure: Occlusive dressing applied Patient tolerance of procedure: Tolerated well, no immediate complications Angely Hou MD Resident 04/29/19 6066 Cosigned by Re Montez MD at 04/30/2019 6:48 AM BUFFING AND SUEDING MACHINE OPERATOR ING AND SUEDING MACHINE OPERATOR ING AND SUEDING MACHINE OPERATOR * ED Re-evaluation Note - Christina Bartlett MD - 04/29/2019 10:45 PM BUFFING AND SUEDING MACHINE OPERATOR ED Re-evaluation TRANSITION OF CARE: I, Christina Bartlett MD, am taking signout from Dr. Macdonald (Resident) under supervision of Dr. Montez (Attending). I have reviewed all pertinent vital signs, allergies, and history available inthe chart. Summary: 48 y.o. female w/ PMH HTN, PSA, chronic LAD, and DVT on xarelto p/w bloody stools. VSS. Hemoglobin 5.6. Transfusing 2u PRBC. Treated with pantoprazole. INR 1.3. Pending: Bed assignement Dispo: Admission to medicine for GI scope tomorrow. ED Course as of Apr 30 720 Time: 04/29 2235 Value: Hgb(!!): 5.6 Comment: (Reviewed) By: Glory Palafox MD Time: 04/29 2241 Comment: Will give 2u pRBCs. Discussed with GI - will admit to medicine with plan for scope tmw. By: Glory Palafox MD Time: 04/29 2253 Comment: KUB without evidence of perforation per my read. Still awaiting blood. Will By: Glory Palafox MD Time: 04/29 230 Comment: Signout given to floor team. Patient signed out to Dr. Bartlett, on coming ED resident. By: MD Christina Bah MD Resident 04/30/19 0721 ING AND SUEDING MACHINE OPERATOR * ED Procedure Note - Phil Morillo MD - 04/29/2019 10:41 PM BUFFING AND SUEDING MACHINE OPERATOR Associated Order(s): Critical Care Procedure Critical Care Performed by: Phil Morillo MD Authorized by: Phil Morillo MD Critical care provider statement: As reflected in the history, physical exam, orders, notes, and/or MDM, I was personally present while the patient was critically ill and provided critical care services for approximately 45 minutes, excluding time involved in separately billable procedures. Critical care was necessary to treat or prevent imminent or life-threatening deterioration of the following condition(s): acute gastrointestinal bleed (GIB) acute blood loss anemia Critical care was time spent by me providing the following: continuous telemetry and continuous pulse oximetry initiation of GIB management transfusion of blood products I provided emergent necessary critical care medicine services to this patient. I spent time discussing the management of this critically ill patient with consultants and the medical staff. I ordered and reviewed test results and/or imaging studies. I spent time discussing the management and therapeutic options for this critically ill patient with the patient themselves or with the appropriate designated surrogate decision-maker. I spent time documenting in the medical record. Phil Morillo MD 04/29/19 2891 ING AND SUEDING MACHINE OPERATOR * ED Procedure Note - Angely Hou MD - 04/29/2019 10:10 PM BUFFING AND SUEDING MACHINE OPERATOR Associated Order(s): Peripheral line insertion Procedure Peripheral line insertion Date/Time: 04/29/2019 10:10 PM Performed by: Angely Hou MD Authorized by: Phil Morillo MD Indications: Nursing unable to obtain Pre-procedure details: Hand hygiene: Hand hygiene performed prior to insertion Skin preparation: 2% chlorhexidine Skin preparation agent: Skin preparation agent completely dried prior to procedure Anesthesia (see MAR for exact dosages): Anesthesia method: None Procedure details: Catheter size: 18 G Laterality: Right Location: Upper arm Number of attempts: 1 Ultrasound guidance was used to confirm vessel patency and needle position: Yes Successful placement: yes Post-procedure details: Post-procedure: Line secured and occlusive dressing applied Patient tolerance of procedure: Tolerated well, no immediate complications Comments: Procedure comments: Extended-dwell line easily draws back and flushes without difficulty Angely Hou MD Resident 04/29/191 Cosigned by Phil Morillo MD at 04/30/2019 11:18 AM BUFFING AND SUEDING MACHINE OPERATOR ING AND SUEDING MACHINE OPERATOR ING AND SUEDING MACHINE OPERATOR Associated attestation - Phil Morillo MD - 04/30/2019 11:18 AM BUFFING AND SUEDING MACHINE OPERATOR I was present for the entire procedure * ED Procedure Note - Angely Hou MD - 04/29/2019 8:26 PM BUFFING AND SUEDING MACHINE OPERATOR Associated Order(s): Peripheral line insertion Procedure Peripheral line insertion Date/Time: 04/29/2019 8:27 PM Performed by: Angely Hou MD Authorized by: Phil Morillo MD Indications: Nursing unable to obtain Pre-procedure details: Hand hygiene: Hand hygiene performed prior to insertion Sterile barrier technique: All elements of maximal sterile technique followed Skin preparation: 2% chlorhexidine Skin preparation agent: Skin preparation agent completely dried prior to procedure Anesthesia (see MAR for exact dosages): Anesthesia method: None Procedure details: Catheter size: 18 G Laterality: Left Location: Upper arm Number of attempts: 1 Ultrasound guidance was used to confirm vessel patency and needle position: Yes Successful placement: yes Post-procedure details: Post-procedure: Occlusive dressing applied and line secured Patient tolerance of procedure: Tolerated well, no immediate complications Angely Hou MD Resident 04/29/192026 Cosigned by Phil Morillo MD at 04/30/2019 11:18 AM BUFFING AND SUEDING MACHINE OPERATOR ING AND SUEDING MACHINE OPERATOR ING AND SUEDING MACHINE OPERATOR Associated attestation - Phil Morillo MD - 04/30/2019 11:18 AM BUFFING AND SUEDING MACHINE OPERATOR I was present for the entire procedure documented in this encounter Plan of Treatment Not on file documented as of this encounter Procedures Procedure Name Priority Date/Time Associated Diagnosis Comments CBC WITHOUT DIFFERENTIAL Timed 020 11:46 PM BUFFING AND SUEDING MACHINE OPERATOR CBC WITHOUT DIFFERENTIAL Timed 020 4:37 PM BUFFING AND SUEDING MACHINE OPERATOR BASIC METABOLIC PANEL Routine 05/01/2019 4:37 PM BUFFING AND SUEDING MACHINE OPERATOR CBC WITHOUT DIFFERENTIAL Timed 020 8:00 AM BUFFING AND SUEDING MACHINE OPERATOR THYROID FUNCTION CASCADE Routine 020 10:38 PM BUFFING AND SUEDING MACHINE OPERATOR CBC WITHOUT DIFFERENTIAL Timed 020 10:38 PM BUFFING AND SUEDING MACHINE OPERATOR T4, FREE Routine 04/30/2019 10:38 PM BUFFING AND SUEDING MACHINE OPERATOR BASIC METABOLIC PANEL Routine 04/30/2019 10:38 PM BUFFING AND SUEDING MACHINE OPERATOR SURGICAL PATHOLOGY Routine 04/30/2019 2:36 PM BUFFING AND SUEDING MACHINE OPERATOR Gastrointestina l hemorrhage with melena EGD 04/30/2019 2:21 PM BUFFING AND SUEDING MACHINE OPERATOR ESOPHAGOGASTRODUODENOSCOPY CONTROL BLEED 04/30/2019 2:20 PM BUFFING AND SUEDING MACHINE OPERATOR Gastrointestina l hemorrhage with melena POCT HCG, URINE Routine 04/30/2019 2:15 PM BUFFING AND SUEDING MACHINE OPERATOR POCT [id number] - ISTAT Routine 04/30/2019 2:13 PM BUFFING AND SUEDING MACHINE OPERATOR TRANSFUSE RED BLOOD CELLS Timed 2019 10:30 AM BUFFING AND SUEDING MACHINE OPERATOR PREPARE RBC Timed 04/30/2019 9:00 AM BUFFING AND SUEDING MACHINE OPERATOR DIFFERENTIAL AUTO Routine 04/30/2019 8:05 AM BUFFING AND SUEDING MACHINE OPERATOR CBC WITH AUTO DIFFERENTIAL Routine 04/30 8:05 AM BUFFING AND SUEDING MACHINE OPERATOR TRANSFUSE RED BLOOD CELLS Timed 2019 2:10 AM BUFFING AND SUEDING MACHINE OPERATOR ED PERIPHERAL LINE INSERTION Routine 1:06 AM BUFFING AND SUEDING MACHINE OPERATOR TRANSFUSE RED BLOOD CELLS Timed 2019 12:45 AM BUFFING AND SUEDING MACHINE OPERATOR ED PERIPHERAL LINE INSERTION Routine 11:49 PM BUFFING AND SUEDING MACHINE OPERATOR XR ABDOMEN ERECT AND OR DECU BITS 2 VIEWS ED 04/29/2019 10:46 PM BUFFING AND SUEDING MACHINE OPERATOR MD CRITICAL CARE ILL/INJURED PATIENT INIT 30-74 MIN Routine 04/29/2019 10:41 PM BUFFING AND SUEDING MACHINE OPERATOR ED PERIPHERAL LINE INSERTION Routine 10:10 PM BUFFING AND SUEDING MACHINE OPERATOR B CHECK SAMPLE STAT 04/29/2019 9:36 PM BUFFING AND SUEDING MACHINE OPERATOR PREPARE RBC Timed 04/29/2019 9:10 PM BUFFING AND SUEDING MACHINE OPERATOR POCT LACTATE - DEVICE Routine 04/29/2019 8:39 PM BUFFING AND SUEDING MACHINE OPERATOR DIFFERENTIAL AUTO STAT 04/29/2019 8:32 PM BUFFING AND SUEDING MACHINE OPERATOR CBC WITH AUTO DIFFERENTIAL STAT 04/29 8:32 PM BUFFING AND SUEDING MACHINE OPERATOR APTT STAT 04/29/2019 8:32 PM BUFFING AND SUEDING MACHINE OPERATOR PROTIME-INR STAT 04/29/2019 8:32 PM BUFFING AND SUEDING MACHINE OPERATOR TYPE AND SCREEN STAT 04/29/2019 8:32 PM BUFFING AND SUEDING MACHINE OPERATOR HAPTOGLOBIN STAT 04/29/2019 8:32 PM BUFFING AND SUEDING MACHINE OPERATOR HEPATIC FUNCTION PANEL STAT 0 8:32 PM BUFFING AND SUEDING MACHINE OPERATOR BASIC METABOLIC PANEL STAT 04/29/2019 8:32 PM BUFFING AND SUEDING MACHINE OPERATOR ED PERIPHERAL LINE INSERTION Routine 8:26 PM BUFFING AND SUEDING MACHINE OPERATOR documented in this encounter Results * (ABNORMAL) CBC without differential (05/01/2019 11:46 PM BUFFING AND SUEDING MACHINE OPERATOR) WBC 6.9 3.8 - 9.9 K/cumm [facility] Hgb 8.2(L) 11.9 - 15.5 g/dL [facility] Hct 27.0(L) 35.6 - 45.5 % [facility] Plt 296 150 - 400 K/cumm [facility] MPV 9.9 9.1 - 12.3 fL [facility] RBC 2.93(L) 3.90 - 5.20 M/cumm [facility] MCV 92.2 81.3 - 96.4 fL [facility] MCH 28.0 27.1 - 33.3 pg [facility] MCHC 30.4(L) 32.3 - 35.7 g/dL [facility] RDW CV 19.3(H) 11.1 - 14.9 % [facility] RDW SD 59.0(H) 35.7 - 48.1 fL [facility] NRBC abs 0.00 0.00 - 0.01 K/cumm [facility] Blood specimen (specimen) 05/01/2019 11:46 PM BUFFING AND SUEDING MACHINE OPERATOR 05/02/2019 12:05 AM BUFFING AND SUEDING MACHINE OPERATOR Re Montez MD LAB BLOOD ORDERABLES Final R esult [facility] Department [place] [address] * Basic metabolic panel (05/01/2019 4:37 PM BUFFING AND SUEDING MACHINE OPERATOR) Sodium 141 135 - 145 mmol/L [facility] Potassium, pl 4.6 3.3 - 4.9 mmol/L [facility] Chloride 110 97 - 110 mmol/L [facility] CO2 25 22 - 32 mmol/L [facility] Anion gap 6 2 - 15 mmol/L [facility] BUN 11 8 - 25 mg/dL [facility] Creatinine 0.90 0.60 - 1.10 mg/dL [facility] Glucose 87 70 - 199 mg/dL [facility] Comment: Interpretive Data Fasting glucose >/= 126 mg/dl is diagnostic for diabetes. ?? Fasting is defined as no caloric intake for at least 8 hours. Fasting glucose between 100 mg/dl to 125 mg/dl is diagnostic of prediabetes. In a patient with classic symptoms of hyperglycemia or hyperglycemic crisis, a random glucose >/= 200 mg/dl is diagnostic for diabetes. In the absence of unequivocal hyperglycemia, results should be confirmed by repeat testing. The classification and Diagnosis of Diabetes Diabetes Care 2017;40 (Suppl. 1):S11. Current interpretive data was last revised 2017. Calcium 9.0 8.5 - 10.3 mg/dL [facility] Blood specimen (specimen) 05/01/2019 4:37 PM BUFFING AND SUEDING MACHINE OPERATOR 05/01/2019 4:46 PM BUFFING AND SUEDING MACHINE OPERATOR Re Montez MD LAB BLOOD ORDERABLES Final R esult [facility] Department [place] [address] * (ABNORMAL) CBC without differential (05/01/2019 4:37 PM BUFFING AND SUEDING MACHINE OPERATOR) Pathologist [facility] WBC 7.0 3.8 - 9.9 K/cumm [facility] Hgb 7.8(L) 11.9 - 15.5 g/dL [facility] Hct 25.2(L) 35.6 - 45.5 % [facility] Plt 268 150 - 400 K/cumm [facility] MPV 9.9 9.1 - 12.3 fL [facility] RBC 2.74(L) 3.90 - 5.20 M/cumm [facility] MCV 92.0 81.3 - 96.4 fL [facility] MCH 28.5 27.1 - 33.3 pg [facility] MCHC 31.0(L) 32.3 - 35.7 g/dL [facility] RDW CV 19.0(H) 11.1 - 14.9 % [facility] RDW SD 59.3(H) 35.7 - 48.1 fL [facility] NRBC abs 0.00 0.00 - 0.01 K/cumm [facility] Blood specimen (specimen) 05/01/2019 4:37 PM BUFFING AND SUEDING MACHINE OPERATOR 05/01/2019 4:46 PM BUFFING AND SUEDING MACHINE OPERATOR us Re Montez MD LAB BLOOD ORDERABLES Final R esult [facility] Department [place] [address] * (ABNORMAL) CBC without differential (05/01/2019 8:00 AM BUFFING AND SUEDING MACHINE OPERATOR) WBC 7.2 3.8 - 9.9 K/cumm [facility] Hgb 7.9(L) 11.9 - 15.5 g/dL [facility] Hct 26.3(L) 35.6 - 45.5 % [facility] Plt 285 150 - 400 K/cumm [facility] MPV 10.1 9.1 - 12.3 fL [facility] RBC 2.87(L) 3.90 - 5.20 M/cumm [facility] MCV 91.6 81.3 - 96.4 fL [facility] MCH 27.5 27.1 - 33.3 pg [facility] MCHC 30.0(L) 32.3 - 35.7 g/dL [facility] RDW CV 18.9(H) 11.1 - 14.9 % [facility] RDW SD 58.8(H) 35.7 - 48.1 fL [facility] NRBC abs 0.00 0.00 - 0.01 K/cumm [facility] Blood specimen (specimen) 05/01/2019 8:00 AM BUFFING AND SUEDING MACHINE OPERATOR 05/01/2019 10:51 AM BUFFING AND SUEDING MACHINE OPERATOR Re Montez MD LAB BLOOD ORDERABLES Final R esult Performing Organization Address City/[facility]/ZIP Co de Phone Number [facility] [place] [address] * T4, free (04/30/2019 10:38 PM BUFFING AND SUEDING MACHINE OPERATOR) Pathologist [facility] Free T4 1.17 0.90 - 1.70 ng/dL [facility] Blood specimen (specimen) 04/30/2019 10:38 PM BUFFING AND SUEDING MACHINE OPERATOR 04/30/2019 10:49 PM BUFFING AND SUEDING MACHINE OPERATOR Narrative [facility] - 04/30/2019 11:57 PM BUFFING AND SUEDING MACHINE OPERATOR This test was reflexed from a TSH result. Re Montez MD LAB BLOOD ORDERABLES Final R esult Performing Organization Address City/[facility] Co de Phone Number [facility] [place] [address] * Basic metabolic panel (04/30/2019 10:38 PM BUFFING AND SUEDING MACHINE OPERATOR) Sodium 140 135 - 145 mmol/L [facility] Potassium, pl 4.0 3.3 - 4.9 mmol/L [facility] Chloride 108 97 - 110 mmol/L [facility] CO2 24 22 - 32 mmol/L [facility] Anion gap 8 2 - 15 mmol/L [facility] BUN 11 8 - 25 mg/dL [facility] Creatinine 0.86 0.60 - 1.10 mg/dL [facility] Glucose 93 70 - 199 mg/dL [facility] Comment: Interpretive Data Fasting glucose >/= 126 mg/dl is diagnostic for diabetes. ?? Fasting is defined as no caloric intake for at least 8 hours. Fasting glucose between 100 mg/dl to 125 mg/dl is diagnostic of prediabetes. In a patient with classic symptoms of hyperglycemia or hyperglycemic crisis, a random glucose >/= 200 mg/dl is diagnostic for diabetes. In the absence of unequivocal hyperglycemia, results should be confirmed by repeat testing. The classification and Diagnosis of Diabetes Diabetes Care 2017;40 (Suppl. 1):S11. Current interpretive data was last revised 2017. Calcium 9.1 8.5 - 10.3 mg/dL [facility] Blood specimen (specimen) 04/30/2019 10:38 PM BUFFING AND SUEDING MACHINE OPERATOR 04/30/2019 10:49 PM BUFFING AND SUEDING MACHINE OPERATOR us Re Montez MD LAB BLOOD ORDERABLES Final R esult [facility] Department [place] [address] * (ABNORMAL) CBC without differential (04/30/2019 10:38 PM BUFFING AND SUEDING MACHINE OPERATOR) WBC 8.9 3.8 - 9.9 K/cumm [facility] Hgb 8.6(L) 11.9 - 15.5 g/dL [facility] Hct 28.0(L) 35.6 - 45.5 % [facility] Plt 304 150 - 400 K/cumm [facility] MPV 10.0 9.1 - 12.3 fL [facility] RBC 3.06(L) 3.90 - 5.20 M/cumm [facility] MCV 91.5 81.3 - 96.4 fL [facility] MCH 28.1 27.1 - 33.3 pg [facility] MCHC 30.7(L) 32.3 - 35.7 g/dL [facility] RDW CV 19.0(H) 11.1 - 14.9 % [facility] RDW SD 58.1(H) 35.7 - 48.1 fL [facility] NRBC abs 0.00 0.00 - 0.01 K/cumm [facility] Blood specimen (specimen) 04/30/2019 10:38 PM BUFFING AND SUEDING MACHINE OPERATOR 04/30/2019 10:49 PM BUFFING AND SUEDING MACHINE OPERATOR Re Montez MD LAB BLOOD ORDERABLES Final R esult Performing Organization Address City/[facility]/ZIP Co de Phone Number [facility] Department [place] [address] * (ABNORMAL) TSH reflex to free T4 (04/30/2019 10:38 PM BUFFING AND SUEDING MACHINE OPERATOR) TSH 4.24(H) 0.30 - 4.20 mcIUnit/mL [facility] Blood specimen (specimen) 04/30/2019 10:38 PM BUFFING AND SUEDING MACHINE OPERATOR 04/30/2019 10:49 PM BUFFING AND SUEDING MACHINE OPERATOR Re Montez MD LAB BLOOD ORDERABLES Final R esult Performing Organization Address [facility] Co de Phone Number [facility] Department [place] [address] * Surgical pathology (04/30/2019 2:36 PM BUFFING AND SUEDING MACHINE OPERATOR) Tissue (Gastric/Stomach biopsy) 04/30/2019 2:36 PM BUFFING AND SUEDING MACHINE OPERATOR Narrative PATHOLOGY [facility] - 05/04/2019 5:11 PM BUFFING AND SUEDING MACHINE OPERATOR EPIC results best viewed via link to PDF [facility] [place] [address] SURGICAL PATHOLOGY REPORT FINAL Patient Name: ?? TIARRA ADDISONBea Gender: ??F : ??1970 (Age: 48) Address: ??[address] [place], [place] ??[address] Hospital #: ??[id number] Taken:04/30/2019 Received:04/30/2019 Reported: 05/04/2019 Patient Type: [facility] Inpatient ?? Service: Internal Medicine Location: [facility] 0144 Physician(s): ??Ozzie Pascual M.D. Gerard Sutton M.D. Diagnosis: A. ??Stomach, pouch, biopsy ? - Oxyntic mucosa with inactive chronic gastritis ? - No Helicobacter pylori organisms (immunohistochemical stain) or intestinal metaplasia rxr/05/01/2019 13:07 By this signature, I attest that the above diagnosis is based upon my personal examination of the slides(and/or other material indicated in the diagnosis). Louis Silveira M.D. Report Electronically Reviewed and Signed Out By ??Louis Silveira M.D. 05/04/2019 17:11:22 Microscopic Description and Comment: Microscopic examination substantiates the above cited diagnosis. Tres Talavera MD History: The patient is a 48-year-old woman who presents with gastrointestinal hemorrhage with melena. ??Operative procedure: Upper GI endoscopy. Specimen(s) Received: A: Gastric pouch biopsy Gross Description: The specimen is received in a single formalin filled container labeled with the patient's name and gastric pouch biopsy and consists of two barajas-pink soft tissue fragments measuring 0.5 x 0.4 x 0.1 cm in aggregate. ??Wrapped. ??Labeled A1. ??Jar 0. and04/30/2019 16:44 PA(s): Matti Gregory MS, PA ([facility]) By this signature, I attest that the above diagnosis is based upon my personal examination of the slides(and/or other material). The performance characteristics of some immunohistochemical stains, fluorescence in-situ hybridization tests and immunophenotyping by flow cytometry cited in this report (if any) were determined by the Surgical Pathology Department at [facility] as part of an ongoing clinical quality analyst program and in compliance with federally mandated regulations drawn from the Clinical Laboratory Improvement Act of 1988 (CLIA '88). ??Some of these tests rely on the use of analyte specific reagents and are subject to specific labeling requirements by the US Food and Drug Administration. ??Such diagnostic tests may only be performed in a facility that is certified by the Department of Health and Human Services as a high complexity laboratory under CLIA '88. ??The FDA has determined that such clearance or approval is not necessary. ??This test is used for clinical purposes. ??It should not be regarded as investigational or for research. ??Nevertheless, federal rules concerning the medical use of analyte specific reagents require that the following disclaimer be attached to the report: This test was developed and its performance characteristics determined by the Surgical Pathology Department of [facility]. ??It has not been cleared or approved by the U. S. Food and Drug Administration. IMAGES AND SCANNED DOCUMENTS, IF INCLUDED, ONLY VIEWABLE IN PDF VERSION OF REPORT us Ozzie Pascual MD LAB PATHOLOGY ORDERABLES Final Result PATHOLOGY [facility] 3rd Floor [place], [place] [phone] * EGD (04/30/2019 2:21 PM BUFFING AND SUEDING MACHINE OPERATOR) Anatomical Region Laterality Modality Other Narrative Procedure Note Ozzie Pascual MD - 04/30/2019 2:21 PM [facility] Patient Name: Tiarra Addison Procedure Date: 04/30/2019 2:21 PM Date of : 1970 Admit Type: Outpatient Age: 48 Gender: Female Attending MD: Ozzie Pascual M.D. Room: [facility] OR POD 5 ROOM 224 Note Status: Finalized Procedure: Upper GI endoscopy Indications: Suspected upper gastrointestinal bleeding, previousegd with anastomotic ulcer Referring MD: Re Montez M.D. Providers: Ozzie Pascual M.D., Jennifer Angelo M.D. Medicines: Monitored Anesthesia Care Complications: No immediate complications. Estimated Blood Loss: Estimated blood loss: none. Procedure: Pre-Anesthesia Assessment: - The risks and benefits of the procedure and the sedation options and risks were discussed with the patient. All questions were answered and informed consent was obtained. - The anesthesia plan was to use monitoredanesthesia care (MAC). - Immediately prior to administration ofmedications, the patient was re-assessed for adequacy to receive sedatives. The benefits, risks, and alternatives to theprocedure and sedation were discussed and informed consent was obtained. The upper GI endoscopy was accomplished without difficulty. The patient tolerated theprocedure well. The scope was passed [facility]. [id number] end[facility] was introduced through the mouth, and advanced to the jejunum. Findings: The esophagus was normal. Evidence of a gastric bypass was found. A gastric pouch with a 5 cm length from the GE junction to the gastrojejunal anastomosis wasfound containing ulceration. There was a shallow 5 mm ulceration withoozing in the gastric pouch proximal to the anastomosis. The ulcer waslargely clean based, but the proximal edge was oozing. There were a few other erosions and friable mucosa. The ulcer was successfully injected with2 mL of a 1:10,000 solution of epinephrine for hemostasis. To stopactive bleeding, two hemostatic clips were successfully placed. There was no bleeding at the end of the procedure. Thi pouch was biopsied with acold forceps for histology. The gastrojejunal anastomosis wascharacterized by healthy appearing mucosa. This was traversed. The examined jejunum was normal. Impression: - Normal esophagus. - Gastric bypass with a pouch 5 cm in length. Therewas a shallow ulceration within the pouch that wasoozing at the proximal edge, along with a few erosions and friability. The ulcer was injected with epinephrine. Clips were placed. Biopsied for H pylori. - Gastrojejunal anastomosis characterized by healthy appearing mucosa. - Normal examined jejunum. Recommendation: - Await pathology results. - Use a proton pump inhibitor PO BID. - Repeat EGD in 2-3 months to follow up ulcer. - No NSAIDs and avoid tobacco. - Trend CBC and transfuse if needed. Attending Participation: I was present and participated during the entire procedure, including non-bolanos portions. Ozzie Pascual M.D. 04/30/2019 2:49:45 PM Number of Addenda: 0 Note Initiated On: 04/30/2019 2:21 PM Recognized by the [employer] for promoting quality in endoscopy Ozzie Pascual MD ENDOSCOPY PROCEDURES Fin al Result * POCT hCG, urine (04/30/2019 2:15 PM BUFFING AND SUEDING MACHINE OPERATOR) HCG, ur, POC Negative Lot Number [id number] QC Backgroud Clear Acceptable QC Control Line Acceptable Urine 04/30/2019 2:15 PM BUFFING AND SUEDING MACHINE OPERATOR Ozzie Pascual MD POINT OF CARE TEST ORDER ED Final Result * (ABNORMAL) POCT GO-P-AUD-GLU-HCT, WB - ISTAT (04/30/2019 2:13 PM BUFFING AND SUEDING MACHINE OPERATOR) Hct, POC 25.0(L) 35.6 - 45.5 % [facility] Blood specimen (specimen) 04/30/2019 2:13 PM BUFFING AND SUEDING MACHINE OPERATOR 04/30/2019 2:13 PM BUFFING AND SUEDING MACHINE OPERATOR Ozzie Pascual MD LAB POCT ORDERABLES - DE VICE Final Result [facility] Department [place] [address] * Transfuse RBC (04/30/2019 12:34 PM BUFFING AND SUEDING MACHINE OPERATOR) Blood specimen (specimen) Scout Santana MD BLOOD TRANSFUSION ORDER ED Final Result Performing Organization Address [facility]/[place] de Phone Number [facility] Department [place] [address] * Transfuse RBC: 1 Units (04/30/2019 12:34 PM BUFFING AND SUEDING MACHINE OPERATOR) Blood specimen (specimen) Scout Santana MD BLOOD TRANSFUSION ORDER ED Final Result * Prepare RBC: 1 Units (04/30/2019 9:00 AM BUFFING AND SUEDING MACHINE OPERATOR) Pathologist [facility] Product code [id number] [facility] Unit Number [id number] [facility] Product Blood Type OPOS [facility] Dispense Status PRESUMED TRANSFUSED [facility] Blood specimen (specimen) 04/30/2019 9:00 AM BUFFING AND SUEDING MACHINE OPERATOR 04/30/2019 9:00 AM BUFFING AND SUEDING MACHINE OPERATOR Narrative [facility] - 05/01/2019 12:48 AM BUFFING AND SUEDING MACHINE OPERATOR Are special requirements needed? (all products are leukoreduced)->No THE BJ COLLECTION LOCATION IS [facility] ED309 LRRBC # of [id number] Reasons:-Hgb <7 g/dL} Scout Santana MD BLOOD BANK PRODUCT ORDE RABLES Final Result Performing Organization Address [facility]/[place] de Phone Number [facility] Department [place] [address] * (ABNORMAL) Differential, auto (04/30/2019 8:05 AM BUFFING AND SUEDING MACHINE OPERATOR) Neutrophil abs 4.8 1.7 - 6.5 K/cumm [facility] Imm gran abs 0.0 0.0 - 0.1 K/cumm [facility] Lymphocyte abs 0.7(L) 0.8 - 3.3 K/cumm [facility] Monocyte abs 0.4 0.2 - 0.8 K/cumm [facility] Eosinophil abs 0.3 0.0 - 0.5 K/cumm [facility] Basophil abs 0.0 0.0 - 0.1 K/cumm [facility] Neutrophil pct 77.1 % [facility] Comment: Interpretive Data Percent cell count reference ranges are not reported, since discordance with absolute values may lead to misinterpretation of CBC data. Current Interpretive Data was last revised on 2017. Imm gran pct 0.3 % [facility] Comment: Interpretive Data Percent cell count reference ranges are not reported, since discordance with absolute values may lead to misinterpretation of CBC data. Current Interpretive Data was last revised on 2017. Lymphocyte pct 11.8 % [facility] Comment: Interpretive Data Percent cell count reference ranges are not reported, since discordance with absolute values may lead to misinterpretation of CBC data. Current Interpretive Data was last revised on 2017. Monocyte pct 6.2 % [facility] Comment: Interpretive Data Percent cell count reference ranges are not reported, since discordance with absolute values may lead to misinterpretation of CBC data. Current Interpretive Data was last revised on 2017. Eosinophil pct 4.3 % [facility] Comment: Interpretive Data Percent cell count reference ranges are not reported, since discordance with absolute values may lead to misinterpretation of CBC data. Current Interpretive Data was last revised on 2017. Basophil pct 0.3 % [facility] Comment: Interpretive Data Percent cell count reference ranges are not reported, since discordance with absolute values may lead to misinterpretation of CBC data. Current Interpretive Data was last revised on 2017. Blood specimen (specimen) 04/30/2019 8:05 AM BUFFING AND SUEDING MACHINE OPERATOR 04/30/2019 8:28 AM BUFFING AND SUEDING MACHINE OPERATOR us Christina Bartlett MD LAB BLOOD ORDERABLES Fi nal Result [facility] Department [place] [address] * (ABNORMAL) CBC with auto differential (04/30/2019 8:05 AM BUFFING AND SUEDING MACHINE OPERATOR) [facility] WBC 6.3 3.8 - 9.9 K/cumm [facility] Hgb 6.7(L) 11.9 - 15.5 g/dL [facility] Hct 22.6(L) 35.6 - 45.5 % [facility] Plt 277 150 - 400 K/cumm [facility] MPV 10.1 9.1 - 12.3 fL [facility] RBC 2.45(L) 3.90 - 5.20 M/cumm [facility] MCV 92.2 81.3 - 96.4 fL [facility] MCH 27.3 27.1 - 33.3 pg [facility] MCHC 29.6(L) 32.3 - 35.7 g/dL [facility] RDW CV 19.1(H) 11.1 - 14.9 % [facility] RDW SD 61.1(H) 35.7 - 48.1 fL [facility] NRBC abs 0.00 0.00 - 0.01 K/cumm [facility] Blood specimen (specimen) 04/30/2019 8:05 AM BUFFING AND SUEDING MACHINE OPERATOR 04/30/2019 8:28 AM BUFFING AND SUEDING MACHINE OPERATOR Narrative [facility] - 04/30/2019 8:36 AM BUFFING AND SUEDING MACHINE OPERATOR THE COLLECTION LOCATION IS [facility] ED309 us Christina Bartlett MD LAB BLOOD ORDERABLES Fi nal Result Performing Organization Address [facility]/ZIP Co de Phone Number [facility] [place] [address] * Transfuse RBC (04/30/2019 3:21 AM BUFFING AND SUEDING MACHINE OPERATOR) Blood specimen (specimen) us Glory Palafox MD BLOOD TRANSFUSION ORDERA BLES Final Result [facility] [facility] Department [facility] [place], [place] [id number] * Transfuse RBC: 2 Units (04/30/2019 3:21 AM BUFFING AND SUEDING MACHINE OPERATOR) Blood specimen (specimen) Glory Palafox MD BLOOD TRANSFUSION ORDERA BLES Final Result * Transfuse RBC (04/30/2019 2:11 AM BUFFING AND SUEDING MACHINE OPERATOR) Blood specimen (specimen) Glory Palafox MD BLOOD TRANSFUSION ORDERA BLES Final Result [facility] Department [place] [address] * ED PERIPHERAL LINE INSERTION (04/30/2019 1:06 AM BUFFING AND SUEDING MACHINE OPERATOR) Narrative Re Montez MD - 04/30/2019 1:06 AM BUFFING AND SUEDING MACHINE OPERATOR Re Montez MD ? 04/30/2019 ??7:31 AM Peripheral line insertion Date/Time: 04/30/2019 1:06 AM Performed by: Angely Hou MD Authorized by: Re Montez MD Indications: ??Nursing unable to obtain Pre-procedure details: ??Sterile barrier technique: All elements of maximal sterile technique followed ?Skin preparation: ??2% chlorhexidine ??Skin preparation agent: Skin preparation agent completely dried prior to procedure ?? Anesthesia (see MAR for exact dosages): ??Anesthesia method: ??None Procedure details: ??Catheter size: ??20 G ??Laterality: ??Right ??Location: ??Upper arm ??Number of attempts: ??1 ??Ultrasound guidance was used to confirm vessel patency and needle position: Yes ?Successful placement: yes ?? Post-procedure details: ??Post-procedure: ??Occlusive dressing applied ??Patient tolerance of procedure: ??Tolerated well, no immediate complications Re Montez MD IN CLINIC/BEDSIDE ORDERABLES Edited Result - Final * ED PERIPHERAL LINE INSERTION (04/29/2019 11:49 PM BUFFING AND SUEDING MACHINE OPERATOR) Narrative Re Montez MD - 04/29/2019 11:49 PM BUFFING AND SUEDING MACHINE OPERATOR Angely Hou MD ? 04/29/2019 11:50 PM Peripheral line insertion Date/Time: 04/29/2019 11:49 PM Performed by: Angely oHu MD Authorized by: Re Montez MD Indications: ??Nursing unable to obtain Pre-procedure details: ??Hand hygiene: Hand hygiene performed prior to insertion ?Skin preparation: ??2% chlorhexidine ??Skin preparation agent: Skin preparation agent completely dried prior to procedure ?? Anesthesia (see MAR for exact dosages): ??Anesthesia method: ??None Procedure details: ??Catheter size: ??18 G ??Laterality: ??Left ??Location: ??Upper arm ??Number of attempts: ??1 ??Ultrasound guidance was used to confirm vessel patency and needle position: Yes ?Successful placement: yes ?? Post-procedure details: ??Post-procedure: ??Occlusive dressing applied ??Patient tolerance of procedure: ??Tolerated well, no immediate complications us Re Montez MD IN CLINIC/BEDSIDE ORDERABLES Final Result * XR Abdomen Erect and or Decubitus 2 Views (04/29/2019 10:46 PM BUFFING AND SUEDING MACHINE OPERATOR) Anatomical Region Laterality Modality Body, Abdomen N/A Computed Radiogr aphy 04/29/2019 10:5 9 PM BUFFING AND SUEDING MACHINE OPERATOR Impressions 04/30/2019 3:48 PM BUFFING AND SUEDING MACHINE OPERATOR Supine and upright views of the abdomen are submitted for evaluation. Inferior vena cava filter is seen in the level of L2-L3.Sutures are seen in the left upper quadrant from prior gastric bypass surgery. Rounded metallic bodies are seen in the pelvis and maybe from prior surgery, possibly tubal ligation clips. The visualized bowel gas pattern is nonobstructive. ??No free gas is seen. Lung bases are clear. The hip joints are normal. Dictated by: Wesly Chase M.D. The radiology attending physician has personally reviewed this study, and had reviewed and/or edited this written report and agrees with it. Electronically signed by: Joao Palomino M.D. Narrative 04/30/2019 3:48 PM BUFFING AND SUEDING MACHINE OPERATOR EXAMINATION: ??Abdomen with decubitus and/or erect views. HISTORY: Concern for perforated ulcer COMPARISON: None Procedure Note Joao Palomino MD - 04/30/2019 EXAMINATION: Abdomen with decubitus and/or erect views. HISTORY: Concern for perforated ulcer COMPARISON: None IMPRESSION: Supine and upright views of the abdomen are submitted for evaluation. Inferior vena cava filter is seen in the level of L2-L3.Sutures are seen in the left upper quadrant from prior gastric bypass surgery. Rounded metallic bodies are seen in the pelvis and maybe from prior surgery, possibly tubal ligation clips. The visualized bowel gas pattern is nonobstructive. No free gas is seen. Lung bases are clear. The hip joints are normal. Dictated by: Wesly Chase M.D. The radiology attending physician has personally reviewed this study, and had reviewed and/or edited this written report and agrees with it. Electronically signed by: Joao Palomino M.D. Glory Palafox MD IMG XR PROCEDURES Final Result * MD CRITICAL CARE ILL/INJURED PATIENT INIT 30-74 MIN (04/29/2019 10:41 PM BUFFING AND SUEDING MACHINE OPERATOR) Narrative Phil Morillo MD - 04/29/2019 10:41 PM BUFFING AND SUEDING MACHINE OPERATOR Phil Morillo MD ? 04/29/2019 10:44 PM Critical Care Performed by: Phil Morillo MD Authorized by: Phil Morillo MD Critical care provider statement: As reflected in the history, physical exam, orders, notes, and/or MDM, I was personally present while the patient was critically ill and provided critical care services for approximately 45 minutes, excluding time involved in separately billable procedures. ??Critical care was necessary to treat or prevent imminent or life-threatening deterioration of the following condition(s): ?? acute gastrointestinal bleed (GIB) ?? acute blood loss anemia ??Critical care was time spent by me providing the following: ? continuous telemetry and continuous pulse oximetry ?? initiation of GIB management ?? transfusion of blood products ?? I provided emergent necessary critical care medicine services to this patient. I spent time discussing the management of this critically ill patient with consultants and the medical staff. I ordered and reviewed test results and/or imaging studies. I spent time discussing the management and therapeutic options for this critically ill patient with the patient themselves or with the appropriate designated surrogate decision-maker. I spent time documenting in the medical record. us Phil Morillo MD IN CLINIC/BEDSIDE ORDERABL ES Final Result * ED PERIPHERAL LINE INSERTION (04/29/2019 10:10 PM BUFFING AND SUEDING MACHINE OPERATOR) Narrative Phil Morillo MD - 04/29/2019 10:10 PM BUFFING AND SUEDING MACHINE OPERATOR Angely Hou MD ? 04/29/2019 10:11 PM Peripheral line insertion Date/Time: 04/29/2019 10:10 PM Performed by: Angely Hou MD Authorized by: Phil Morillo MD Indications: ??Nursing unable to obtain Pre-procedure details: ??Hand hygiene: Hand hygiene performed prior to insertion ?Skin preparation: ??2% chlorhexidine ??Skin preparation agent: Skin preparation agent completely dried prior to procedure ?? Anesthesia (see MAR for exact dosages): ??Anesthesia method: ??None Procedure details: ??Catheter size: ??18 G ??Laterality: ??Right ??Location: ??Upper arm ??Number of attempts: ??1 ??Ultrasound guidance was used to confirm vessel patency and needle position: Yes ?Successful placement: yes ?? Post-procedure details: ??Post-procedure: ??Line secured and occlusive dressing applied ??Patient tolerance of procedure: ??Tolerated well, no immediate complications Comments: ??Procedure comments: ??Extended-dwell line easily draws back and flushes without difficulty us Phil Morillo MD IN CLINIC/BEDSIDE ORDERABL ES Final Result * Check Sample (04/29/2019 9:36 PM BUFFING AND SUEDING MACHINE OPERATOR) ABO Rh O Positive [facility] HCLL OTHER 04/29/2019 9:36 PM BUFFING AND SUEDING MACHINE OPERATOR 04/29/2019 11:57 PM BUFFING AND SUEDING MACHINE OPERATOR us Phil Morillo MD LAB BLOOD ORDERABLES Final Result [facility] Department [place] [address] * Prepare RBC: 2 Units (04/29/2019 9:10 PM BUFFING AND SUEDING MACHINE OPERATOR) [facility] Product code [id number] [facility] Unit Number [id number] [facility] Product Blood Type OPOS [facility] Dispense Status PRESUMED TRANSFUSED [facility] Product code [id number] [facility] Unit Number [id number] [facility] Product Blood Type OPOS [facility] Dispense Status PRESUMED TRANSFUSED [facility] Blood specimen (specimen) 04/29/2019 9:10 PM BUFFING AND SUEDING MACHINE OPERATOR 04/29/2019 9:11 PM BUFFING AND SUEDING MACHINE OPERATOR Narrative [facility] - 05/01/2019 12:49 AM BUFFING AND SUEDING MACHINE OPERATOR Are special requirements needed? (all products are leukoreduced)->No THE BJ COLLECTION LOCATION IS [facility] ED1-09 LRRBC # of [id number] Reasons:-Hgb <7 g/dL} us Glory Palafox MD BLOOD BANK PRODUCT ORDER ED Final Result [facility] [place] [address] * POCT lactate (04/29/2019 8:39 PM BUFFING AND SUEDING MACHINE OPERATOR) [facility] Lactate POC i-STAT 1.0 0.7 - 2.2 mmol/L [facility] Blood specimen (specimen) 04/29/2019 8:39 PM BUFFING AND SUEDING MACHINE OPERATOR 04/29/2019 8:39 PM BUFFING AND SUEDING MACHINE OPERATOR us Phil Morillo MD LAB POCT ORDERABLES - ZAYNAB CE Final Result [facility] [place] [address] * Haptoglobin (04/29/2019 8:32 PM BUFFING AND SUEDING MACHINE OPERATOR) [facility] Haptoglobin 110.0 30.0 - 200.0 mg/dL [facility] Blood specimen (specimen) 04/29/2019 8:32 PM BUFFING AND SUEDING MACHINE OPERATOR 04/29/2019 9:12 PM BUFFING AND SUEDING MACHINE OPERATOR Philip Cheung MD LAB BLOOD ORDERABLES Final Result Performing Organization Address [facility] Co de Phone Number [facility] Department [place] [address] * Basic metabolic panel (04/29/2019 8:32 PM BUFFING AND SUEDING MACHINE OPERATOR) [facility] Sodium 140 135 - 145 mmol/L [facility] Potassium, pl 3.8 3.3 - 4.9 mmol/L [facility] Chloride 110 97 - 110 mmol/L [facility] CO2 24 22 - 32 mmol/L [facility] Anion gap 6 2 - 15 mmol/L [facility] BUN 13 8 - 25 mg/dL [facility] Creatinine 0.93 0.60 - 1.10 mg/dL [facility] Glucose 86 70 - 199 mg/dL [facility] Comment: Interpretive Data Fasting glucose >/= 126 mg/dl is diagnostic for diabetes. ?? Fasting is defined as no caloric intake for at least 8 hours. Fasting glucose between 100 mg/dl to 125 mg/dl is diagnostic of prediabetes. In a patient with classic symptoms of hyperglycemia or hyperglycemic crisis, a random glucose >/= 200 mg/dl is diagnostic for diabetes. In the absence of unequivocal hyperglycemia, results should be confirmed by repeat testing. The classification and Diagnosis of Diabetes Diabetes Care 2017;40 (Suppl. 1):S11. Current interpretive data was last revised 2017. Calcium 9.0 8.5 - 10.3 mg/dL [facility] Blood specimen (specimen) 04/29/2019 8:32 PM BUFFING AND SUEDING MACHINE OPERATOR 04/29/2019 8:39 PM BUFFING AND SUEDING MACHINE OPERATOR Phil Morillo MD LAB BLOOD ORDERABLES Final Result Performing Organization Address [facility] Co de Phone Number [facility] Department [place] [address] * Differential, auto (04/29/2019 8:32 PM BUFFING AND SUEDING MACHINE OPERATOR) Neutrophil abs 6.1 1.7 - 6.5 K/cumm [facility] Imm gran abs 0.0 0.0 - 0.1 K/cumm [facility] Lymphocyte abs 1.3 0.8 - 3.3 K/cumm [facility] Monocyte abs 0.4 0.2 - 0.8 K/cumm [facility] Eosinophil abs 0.2 0.0 - 0.5 K/cumm [facility] Basophil abs 0.0 0.0 - 0.1 K/cumm [facility] Neutrophil pct 74.6 % [facility] Comment: Interpretive Data Percent cell count reference ranges are not reported, since discordance with absolute values may lead to misinterpretation of CBC data. Current Interpretive Data was last revised on 2017. Imm gran pct 0.6 % [facility] Comment: Interpretive Data Percent cell count reference ranges are not reported, since discordance with absolute values may lead to misinterpretation of CBC data. Current Interpretive Data was last revised on 2017. Lymphocyte pct 15.9 % [facility] Comment: Interpretive Data Percent cell count reference ranges are not reported, since discordance with absolute values may lead to misinterpretation of CBC data. Current Interpretive Data was last revised on 2017. Monocyte pct 5.4 % [facility] Comment: Interpretive Data Percent cell count reference ranges are not reported, since discordance with absolute values may lead to misinterpretation of CBC data. Current Interpretive Data was last revised on 2017. Eosinophil pct 3.1 % [facility] Comment: Interpretive Data Percent cell count reference ranges are not reported, since discordance with absolute values may lead to misinterpretation of CBC data. Current Interpretive Data was last revised on 2017. Basophil pct 0.4 % [facility] Comment: Interpretive Data Percent cell count reference ranges are not reported, since discordance with absolute values may lead to misinterpretation of CBC data. Current Interpretive Data was last revised on 2017. Blood specimen (specimen) 04/29/2019 8:32 PM BUFFING AND SUEDING MACHINE OPERATOR 04/29/2019 8:38 PM BUFFING AND SUEDING MACHINE OPERATOR Elvis Hall MD LAB BLOOD ORDERABLES F inal Result Performing Organization Address [facility] de Phone Number [facility] Department [place] [address] * (ABNORMAL) Hepatic function panel (04/29/2019 8:32 PM BUFFING AND SUEDING MACHINE OPERATOR) Bilirubin, total 0.2 0.1 - 1.2 mg/dL [facility] Bilirubin, direct <0.2 0.1 - 0.3 mg/dL [facility] Protein, pl 6.1(L) 6.5 - 8.5 g/dL [facility] Albumin 3.4(L) 3.5 - 5.0 g/dL [facility] Alk phos 55 40 - 130 Units/L [facility] ALT 13 7 - 45 Units/L [facility] AST 20 10 - 45 Units/L [facility] Blood specimen (specimen) 04/29/2019 8:32 PM BUFFING AND SUEDING MACHINE OPERATOR 04/29/2019 8:39 PM BUFFING AND SUEDING MACHINE OPERATOR Narrative [facility] - 04/29/2019 9:40 PM BUFFING AND SUEDING MACHINE OPERATOR THE BJ COLLECTION LOCATION IS [place] [address] us Phil Morillo MD LAB BLOOD ORDERABLES Final Result Performing Organization Address [facility] de Phone Number [facility] Department [place] [address] * Type and screen (04/29/2019 8:32 PM BUFFING AND SUEDING MACHINE OPERATOR) Pathologist [facility] Krishan, indirect Negative [facility] ABO Rh O Positive [facility] Blood specimen (specimen) 04/29/2019 8:32 PM BUFFING AND SUEDING MACHINE OPERATOR 04/29/2019 8:40 PM BUFFING AND SUEDING MACHINE OPERATOR Narrative [facility] - 04/29/2019 9:37 PM BUFFING AND SUEDING MACHINE OPERATOR Has the patient had Daratumumab (Darzalex) in the past 6 months?->Unknown THE COLLECTION LOCATION IS [place] [address] Phil Morillo MD LAB BLOOD BANK TEST ORDERA BLES Final Result Performing Organization Address [facility]/[place] [address] * aPTT (04/29/2019 8:32 PM BUFFING AND SUEDING MACHINE OPERATOR) aPTT 29 25 - 37 sec [facility] Comment: Interpretive data Heparin therapeutic range: 60-90 seconds Range based on correlation with therapeutic heparin activity range of 0.3-0.7 units/ml. Current interpretive data was last revised on 2019. Blood specimen (specimen) 04/29/2019 8:32 PM BUFFING AND SUEDING MACHINE OPERATOR 04/29/2019 8:45 PM BUFFING AND SUEDING MACHINE OPERATOR Narrative [facility] - 04/29/2019 9:10 PM BUFFING AND SUEDING MACHINE OPERATOR THE COLLECTION LOCATION IS us Elvis Hall MD LAB BLOOD ORDERABLES F inal Result Performing Organization Address [facility]/[place] [address] * (ABNORMAL) Protime-INR (04/29/2019 8:32 PM BUFFING AND SUEDING MACHINE OPERATOR) PT 14.3(H) 8.6 - 13.0 sec [facility] INR 1.3(H) 0.8 - 1.2 [facility] Comment: Interpretive data Oral anticoagulant therapeutic ranges: Venous thromboembolism prophylaxis or treatment: 2.0-3.0 CARDIOLOGY Standard range: 2.0-3.0 High-intensity range: 2.5-3.5 Refer to indication-specific guidelines for appropriate target ranges for prosthetic heart valve replacement. Current interpretive data was last revised on 2019. Blood specimen (specimen) 04/29/2019 8:32 PM BUFFING AND SUEDING MACHINE OPERATOR 04/29/2019 8:45 PM BUFFING AND SUEDING MACHINE OPERATOR Narrative [facility] - 04/29/2019 9:10 PM BUFFING AND SUEDING MACHINE OPERATOR THE COLLECTION LOCATION IS us Elvis Hall MD LAB BLOOD ORDERABLES F inal Result Performing Organization Address [facility]/[place] de Phone Number [facility] [place] [address] * (ABNORMAL) CBC with auto differential (04/29/2019 8:32 PM BUFFING AND SUEDING MACHINE OPERATOR) [facility] WBC 8.2 3.8 - 9.9 K/cumm [facility] Hgb 5.6(C) 11.9 - 15.5 g/dL [facility] Comment:Critical result call ed to and read back by ROCIO CROWLEY RN on 04 29 2019 at 2053 [facility] Hct 19.3(L) 35.6 - 45.5 % [facility] Plt 315 150 - 400 K/cumm [facility] MPV 10.3 9.1 - 12.3 fL [facility] RBC 2.07(L) 3.90 - 5.20 M/cumm [facility] MCV 93.2 81.3 - 96.4 fL [facility] MCH 27.1 27.1 - 33.3 pg [facility] MCHC 29.0(L) 32.3 - 35.7 g/dL [facility] RDW CV 19.9(H) 11.1 - 14.9 % [facility] RDW SD 64.6(H) 35.7 - 48.1 fL [facility] NRBC abs 0.00 0.00 - 0.01 K/cumm [facility] Blood specimen (specimen) 04/29/2019 8:32 PM BUFFING AND SUEDING MACHINE OPERATOR 04/29/2019 8:38 PM BUFFING AND SUEDING MACHINE OPERATOR Narrative [facility] - 04/29/2019 8:53 PM BUFFING AND SUEDING MACHINE OPERATOR THE COLLECTION LOCATION IS us Elvis Hall MD LAB BLOOD ORDERABLES F inal Result [facility] Department [place] [address] * ED PERIPHERAL LINE INSERTION (04/29/2019 8:26 PM BUFFING AND SUEDING MACHINE OPERATOR) Narrative Phil Morillo MD - 04/29/2019 8:26 PM BUFFING AND SUEDING MACHINE OPERATOR Angely Hou MD ? 04/29/2019 ??8:27 PM Peripheral line insertion Date/Time: 04/29/2019 8:27 PM Performed by: Angely Hou MD Authorized by: Phil Morillo MD Indications: ??Nursing unable to obtain Pre-procedure details: ??Hand hygiene: Hand hygiene performed prior to insertion ?Sterile barrier technique: All elements of maximal sterile technique followed ?Skin preparation: ??2% chlorhexidine ??Skin preparation agent: Skin preparation agent completely dried prior to procedure ?? Anesthesia (see MAR for exact dosages): ??Anesthesia method: ??None Procedure details: ??Catheter size: ??18 G ??Laterality: ??Left ??Location: ??Upper arm ??Number of attempts: ??1 ??Ultrasound guidance was used to confirm vessel patency and needle position: Yes ?Successful placement: yes ?? Post-procedure details: ??Post-procedure: ??Occlusive dressing applied and line secured ??Patient tolerance of procedure: ??Tolerated well, no immediate complications Phil Morillo MD IN CLINIC/BEDSIDE ORDERABL ES Final Result documented in this encounter Visit Diagnoses Diagnosis Gastrointestinal hemorrhage with melena- Primary Gastrointestinal hemorrhage with melena History of DVT (deep vein thrombosis) Hypertension Unspecified essential hypertension Congestive heart failure (CHF) (CMS/HCC) (HCC) Hypothyroidism Unspecified hypothyroidism Acute upper GI bleed Unspecified, hemorrhage of gastrointestinal tract Acute blood loss anemia Acute posthemorrhagic anemia documented in this encounter Admitting Diagnoses Diagnosis Gastrointestinal hemorrhage with melena documented in this encounter Administered Medications Inactive Administered Medications - up to 3 most recent administrations Medication Order MAR Action Action Date Dose Rate Site dextrose 5% and sodium chloride 0.9% infusion (premix) 100 mL/hr, intravenous, Continuous, Starting on Sat04/29/19 at 2303 New Bag 04/29/2019 11:50 PM BUFFING AND SUEDING MACHINE OPERATOR 100 mL/hr 100 mL/hr ferrous sulfate tablet 325 mg 325 mg (65 mg of elemental iron), oral, Daily with breakfast, First dose on Sat05/01/19 at 0800, Indications: Iron Deficiency AnemiaIndications:Iron Deficiency Anemia Given 05/02/2019 8:43 AM BUFFING AND SUEDING MACHINE OPERATOR 325 mg Given 05/01/2019 9:12 AM BUFFING AND SUEDING MACHINE OPERATOR 325 mg morphine injection 2 mg 2 mg, intravenous, Administer over 4 Minutes, Once, On Sat04/29/19 at 2132, For 1 dose Given 04/29/2019 9:35 PM BUFFING AND SUEDING MACHINE OPERATOR 2 m g morphine injection 4 mg 4 mg, intravenous, Administer over 4 Minutes, Every 4 hours PRN, 1st line for pain, Starting on Sat04/30/19 at 0316 Given 05/02/2019 8:43 AM BUFFING AND SUEDING MACHINE OPERATOR 4 mg Given 05/02/2019 3:15 AM BUFFING AND SUEDING MACHINE OPERATOR 4 mg Given 05/01/2019 9:59 PM BUFFING AND SUEDING MACHINE OPERATOR 4 mg ondansetron (ZOFRAN) injection 4 mg 4 mg, intravenous, Administer over 2 Minutes, Every 4 hours PRN, nausea, vomiting, Starting on Sat04/30/19 at 0316 pantoprazole (PROTONIX) injection 40 mg 40 mg, intravenous, Administer over 2 Minutes, Once, On Sat04/29/19 at 2023, For 1 dose, Indications: GI BleedIndications:GI Bleed Given 04/29/2019 9:03 PM BUFFING AND SUEDING MACHINE OPERATOR 40 mg pantoprazole (PROTONIX) injection 40 mg 40 mg, intravenous, Administer over 2 Minutes, 2 times daily, First dose on Sat04/30/19 at 2100, Indications: GI BleedIndications:GI Bleed Given 05/02/2019 8:43 AM BUFFING AND SUEDING MACHINE OPERATOR 40 mg Given 05/01/2019 9:02 PM BUFFING AND SUEDING MACHINE OPERATOR 40 mg Given 05/01/2019 9:11 AM BUFFING AND SUEDING MACHINE OPERATOR 40 mg ramelteon (ROZEREM) tablet 8 mg 8 mg, oral, Nightly PRN, sleep, Starting on Sat05/01/19 at 0024, Indications: Sleep-Onset InsomniaIndications:Sleep-Onset Insomnia Given 05/01/2019 9:02 PM BUFFING AND SUEDING MACHINE OPERATOR 8 m g Given 05/01/2019 12:41 AM BUFFING AND SUEDING MACHINE OPERATOR 8 mg sodium chloride 0.9% flush 0.5-20 mL 0.5-20 mL, intra-catheter, Every 8 hours scheduled, First dose on Sat04/30/19 at 1700, Flush volume based on line type and size. Given 05/01/2019 9:02 PM BUFFING AND SUEDING MACHINE OPERATOR 10 mL Given 05/01/2019 4:16 AM BUFFING AND SUEDING MACHINE OPERATOR 10 mL Given 04/30/2019 10:26 PM BUFFING AND SUEDING MACHINE OPERATOR 10 mL sodium chloride 0.9% flush 0.5-20 mL 0.5-20 mL, intra-catheter, Every 8 hours scheduled, First dose on Sat04/30/19 at 1415, Flush volume based on line type and size. Given 05/01/2019 9:02 PM BUFFING AND SUEDING MACHINE OPERATOR 10 mL Given 05/01/2019 5:43 PM BUFFING AND SUEDING MACHINE OPERATOR 10 mL Given 05/01/2019 1:11 PM BUFFING AND SUEDING MACHINE OPERATOR 10 mL sodium chloride 0.9% flush 0.5-20 mL 0.5-20 mL, intra-catheter, As needed, line care, Starting on Amber 04/30/19 at 1334, Flush volume based on line type and size. Flush before and after each use. Given 05/02/2019 3:15 AM BUFFING AND SUEDING MACHINE OPERATOR 10 mL Given 05/01/2019 10:00 PM BUFFING AND SUEDING MACHINE OPERATOR 10 mL Given 05/01/2019 9:12 AM BUFFING AND SUEDING MACHINE OPERATOR 10 mL sodium chloride 0.9% infusion 30 mL/hr, intravenous, Continuous, Starting on Amber 04/30/19 at 1415 New Bag 04/30/2019 1:47 PM BUFFING AND SUEDING MACHINE OPERATOR 30 mL/hr 30 mL/hr sodium chloride 0.9% IVPB 0-250 mL 0-250 mL, intravenous, Once, On Sat04/29/19 at 2112, For 1 dose, Prime blood tubing and administer amount needed to clear line (usually 50-100 mL) after transfusion complete. New Bag 04/30/2019 12:45 AM BUFFING AND SUEDING MACHINE OPERATOR 250 mL documented in this encounter Discontinued Medications Medication Sig Discontinue Reason Start Date End Da te valsartan (DIOVAN) 40 mg tablet Take 40 mg by mouth daily. Discontinued by another clinician 04/29/2019 furosemide (LASIX) 40 mg tablet Take 40 mg by mouth 2 (two) times a day. Dose adjustment 04/29/2019 chlordiazePOXIDE (LIBRIUM) 25 mg capsule Take 1 capsule (25 mg total) by mouth every 6 (six) hours. For 2 doses, then twice a day for two doses, then once a day. Therapy completed 02/07/2018 04/29/2019 escitalopram (LEXAPRO) 20 mg tablet Take 1 tablet (20 mg total) by mouth daily. Discontinued by another clinician 02/08/2018 04/29/2019 ibuprofen (ADVIL,MOTRIN) 600 mg tablet Take 1 tablet (600 mg total) by mouth 4 (four) times a day as needed for pain. Take with food. Therapy completed 04/22/2018 04/29/2019 losartan-hydroCHLOROt hiazide (HYZAAR) 50-12.5 mg per tablet Take 1 tablet by mouth daily. Discontinued by another clinician 04/29/2019 oxyCODONE-acetaminoph en (PERCOCET) 5-325 mg per tabletIndications:Leilani n Take 1-2 tablets by mouth every 6 (six) hours as needed for pain (1 tablet for mild to moderate pain or 2 tablets for severe pain). Therapy completed 03/27/2018 04/29/2019 HYDROcodone-acetamino phen (NORCO) 10-325 mg per tabletIndications:Leilani n Take 1 tablet by mouth every 6 (six) hours as needed for pain. Discontinued by another clinician 04/29/2019 RIVAROXABAN 15 MG (42)-20 MG (9) TABLETS IN A STARTER PACK Take 1 Package by mouth as directed. Take 15 mg BID with food for 21 days, then take 20 mg daily Stop Taking at Discharge 02/07/2018 05/02/2019 rivaroxaban (XARELTO) 10 mg tablet Take 10 mg by mouth daily. Stop Taking at Discharge 05/02/2019 famotidine (PEPCID) 20 mg tablet Take 20 mg by mouth 2 (two) times a day Stop Taking at Discharge 05/02/2019 documented as of this encounter Historical Medications * This list may reflect changes made after this encounter. ferrous sulfate 325 mg (65 mg of elemental iron) tabletIndication s:Iron Deficiency Anemia Take 1 tablet (325 mg total) by mouth daily with breakfast famotidine (PEPCID) 20 mg tablet Take 20 mg by mouth 2 (two) times a day 0 hydroCHLOROthiaz jone (HYDRODIURIL) 25 mg tablet Take 25 mg by mouth daily 0 lisinopril (PRINIVIL,ZESTRI L) 10 mg tablet Take 10 mg by mouth daily 0 potassium chloride ER (potassium chloride ER) 10 mEq CR tablet Take 10 mEq by mouth daily 0 metoprolol XL (TOPROL-XL) 25 mg 24 hr tablet Take 25 mg by mouth daily 0 omeprazole (PriLOSEC) 40 mg capsule Take 40 mg by mouth daily 0 levothyroxine (SYNTHROID) 100 mcg tablet 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 Scheduled Medication Order 04/30/2019 05/01/2019 05/02/2019 ferrous sulfate tablet 325 mg 325 mg (65 mg of elemental iron), oral, Daily with breakfast, First dose on Sat05/01/19 at 0800, Indications: Iron Deficiency Anemia 0912 (Given - Provider: Cecil David Jr., RN) 0843 (Given - Provider: Avinash Hobbs, RN) pantoprazole (PROTONIX) injection 40 mg 40 mg, intravenous, Administer over 2 Minutes, 2 times daily, First dose on Amber 04/30/19 at 2100, Indications: GI Bleed 2226 (Given - Provider: Rosalia Royal RN) 0911 (Given - Provider: Cecil David Jr., RN)210 (Given - Provider: Seema Lam RN) 0843 (Given - Provider: Avinash Hobbs, RN) sodium chloride 0.9% flush 0.5-20 mL 0.5-20 mL, intra-catheter, Every 8 hours scheduled, First dose on Sat04/30/19 at 1700, Flush volume based on line type and size. 1742 (Given - Provider: Cecil David Jr., RN)2226 (Given - Provider: Rosalia Royal RN) 0416 (Given - Provider: Rosalia Royal RN)1423 (Not Given - Provider: Cecil David Jr., RN - Reason: Order parameters not met - Comment: Already flushed)2101 (Given - Provider: Seema Lam RN) 0600 (Due) sodium chloride 0.9% flush 0.5-20 mL 0.5-20 mL, intra-catheter, Every 8 hours scheduled, First dose on Amber 04/30/19 at 1415, Flush volume based on line type and size. 2226 (Given - Provider: Rosalia Royal RN) 0416 (Given - Provider: Rosalia Royal RN)1311 (Given - Provider: Cecil David Jr., RN)1743 (Given - Provider: Cecil David Jr., RN)210 (Given - Provider: Seema Lam RN) 0600 (Due) sodium chloride 0.9% IVPB 0-250 mL (COMPLETED) 0-250 mL, intravenous, Once, On Sat04/29/19 at 2112, For 1 dose, Prime blood tubing and administer amount needed to clear line (usually 50-100 mL) after transfusion complete. 0045 (New Bag - Provider: Angely Schneider RN)0211 (Stopped - Provider: Gianni Willson RN) Continuous Medication Order 04/30/2019 05/01/2019 05/02/2019 sodium chloride 0.9% infusion 30 mL/hr, intravenous, Continuous, Starting on Amber 04/30/19 at 1415 1347 (New Bag - Provider: Shayy Saavedra, GEOVANY)1557 (Stopped - Provider: Shayy Saavedra, GEOVANY) PRN Medication Order 04/30/2019 05/01/2019 05/02/2019 EPINEPHrine syringe (ADRENALIN) 0.1 mg/mL (CANCELED) As needed, Starting on Amber 04/30/19 at 1455, Intra-Op 1455 (Given - Provider: Ozzie Pascual MD) morphine injection 4 mg 4 mg, intravenous, Administer over 4 Minutes, Every 4 hours PRN, 1st line for pain, Starting on Amber 04/30/19 at 0316 0332 (Given - Provider: Gianni Willson RN - Comment: stop time 0335)0926 (Given - Provider: Ramos Tobin RN)1334 (MAR Hold - Provider: Automatic Transfer Provider - Reason: Patient not available)1617 (MAR Unhold - Provider: Automatic Transfer Provider)1742 (Given - Provider: Cecil David Jr., RN)2309 (Given - Provider: Rosalia Royal RN) 0415 (Given - Provider: Rosalia Royal, GEOVANY)0912 (Given - Provider: Cecil David Jr., RN)1311 (Given - Provider: Cecil David Jr., RN)1743 (Given - Provider: Cecil David Jr., GEOVANY)2159 (Given - Provider: Seema Lam RN) 0315 (Given - Provider: Seema Lam RN)0843 (Given - Provider: Avinash Hobbs RN) ondansetron (ZOFRAN) injection 4 mg 4 mg, intravenous, Administer over 2 Minutes, Every 4 hours PRN, nausea, vomiting, Starting on Amber 04/30/19 at 0316 1334 (JUN Hold - Provider: Automatic Transfer Provider - Reason: Patient not available)1617 ([facility] Unhold - Provider: Automatic Transfer Provider) ramelteon (ROZEREM) tablet 8 mg 8 mg, oral, Nightly PRN, sleep, Starting on Sat05/01/19 at 0024, Indications: Sleep-Onset Insomnia 0041 (Given - Provider: Rosalia Royal RN)210 (Given - Provider: Seema Lam, GEOVANY) sodium chloride 0.9% flush 0.5-20 mL 0.5-20 mL, intra-catheter, As needed, line care, Starting on Amber 04/30/19 at 1628, Flush volume based on line type and size. Flush before and after each use. sodium chloride 0.9% flush 0.5-20 mL 0.5-20 mL, intra-catheter, As needed, line care, Starting on Amber 04/30/19 at 1334, Flush volume based on line type and size. Flush before and after each use. 0912 (Given - Provider: Cecil David Jr., RN)2200 (Given - Provider: Seema Lam RN) 0315 (Given - Provider: Seema Lam RN) documented in this encounter Orders Medications Ordered That Syed ht Not Have Been Administered Count Last Ordered Date First Ordered Date EPINEPHrine syringe (ADRENALIN) 0.1 mg/mL 1 04/30/2019 ondansetron (ZOFRAN) injection 4 mg 2 04/30 sodium chloride 0.9% flush 0.5-20 mL 2 04/09 sodium chloride 0.9% IVPB 0-250 mL 1 2019 Lab Orders Without Results Count Last Ordered D ate First Ordered Date HAPTOGLOBIN 1 04/29/2019 POCT LACTATE - DEVICE 1 04/29/2019 Nursing Count Last Ordered Date First Orde red Date WEIGH PATIENT 1 04/30/2019 Consult Count Last Ordered Date First Orde red Date IP CONSULT TO VASCULAR ACCESS TEAM 1 2019 IP CONSULT TO GASTROENTEROLOGY 04/30/2019 CORE MEASURES Count Last Ordered Date First Ord ered Date REASON FOR NO VTE PROPHYLAXI S - HOSPITAL ADMISSION - MEDICATIONS 1 04/30/2019 Case Request Count Last Ordered Date First Orde red Date CASE REQUEST GI 1 04/30/2019 ADT Patient Update Count Last Ordered Date Firs t Ordered Date ED IP DECISION TO ADMIT 1 04/29/[address] IN ED OBSERVATION 04/29/2019 documented in this encounter Care Teams Voice Studies Director Relationship Specialty Start Date End Date Gerard Sutton MD PCP - General 11/21/18 03/27/20 Unknown, Notinfile 02/18/18 03/27/20 documented as of this encounter
--- OUTSIDE RECORDS SUMMARY | 2024-03-24 18:54 | XMS_ITS | Encounter Summary ---
Author Organization [facility] Healthcare Address [address] [place] [address] Care Team Providers Care Biomedical Service Engineer Name Role Phone Unknown, Notinfile Unavailable Unavailable Gerard Sutton MD Primary Care Provider [phone] Reason for Visit * Reason Comments Dizziness Black or Bloody Stool Encounter Details Date Type Department Care Team (Latest Contact Info) Description 04/30/2019 1:12 PM CANAL BOAT OPERATOR - 04/30/2019 1:37 PM CANAL BOAT OPERATOR Surgery [facility] [address] [place] [address] Ozzie Pascual MD [address] [facility] [phone] [place] [address] ESOPHAGOGASTRODUODENOSCOPY CONTROL BLEED Surgery Details Date/Time Status Location OR Service Patient Class Case Class Case Type Trauma Case? 04/30/2019 1:12 PM Posted [facility] G[facility]ology Inpatient Elective Panel 1 Procedure LRB Anes Op Region Wound Class Comments ESOPHAGOGASTRODUODENOSCOPY CONTROL BLEED N/A Monitor Anesthesia Care Surgeon Surgeon Role Service Panel Ozzie Pascual MD Primary Gastroenterolog y 1 Jennifer Angelo MD Fellow Gastroenterology 1 documented in this encounter Social [...] Sign Reading Time Taken Comments Blood Pressure 104/64 04/30/2019 1:00 PM CANAL BOAT OPERATOR Pulse 72 04/30/2019 1:35 PM CANAL BOAT OPERATOR Temperature 36 ??C (96.8 ??F) 04/30/2019 1:35 PM CANAL BOAT OPERATOR Respiratory Rate 20 04/30/2019 1:35 PM CANAL BOAT OPERATOR Oxygen Saturation 100% 04/30/2019 1:00 PM CANAL BOAT OPERATOR Inhaled Oxygen Concentration - - Weight 129.3 kg (285 lb) 04/29/2019 6:00 PM CANAL BOAT OPERATOR Height 170.2 cm (5' 7 ) 04/29/2019 6:00 PM CANAL BOAT OPERATOR Body Mass Index 46.55 04/30/2019 4:20 PM CANAL BOAT OPERATOR documented in this encounter Discharge Summaries * Lilian Cee MD - 05/02/2019 9:15 AM CST Inpatient Discharge Summary BRIEF OVERVIEW Admitting Provider: Ottoniel Ellis MD Discharge Provider: Molly Garcia MD Primary Care Physician at Discharge: Gerard Sutton MD [phone] Admission Date: 04/29/2019 Discharge Date: 05/02/2019 Admission Location: [facility] Primary Discharge Diagnosis: UGIB Secondary Discharge Diagnosis: [...] of melena. ?? Pt was admitted to [facility] on 04/15/19 for two days of dark [...] tarry stools and she was admitted to [facility] on 04/15/2019. During her course at OSH [...] dizzy. At this point she presented to [facility] (on 04/29/2019). At [facility], her Hb was measured as 5.6 and [...] levothyroxine. ?? CHF: 04/29/2019. CHF dx at [facility] in Feb 2019. Requested records from [facility]. Holding home metop and furosemide in setting [...] Full Discharge Instructions: You were seen at [facility] for a bleeding ulcer, while here your [...] as: SYNTHROID Take 50 mcg by mouth early childhood special educator before breakfast lisinopril 10 mg tablet Commonly [...] Information for Follow-ups DENNISE Shelton Specialty: Physician Lead Quality Technician [address] [place] [address] Next Steps: Follow up Cosigned by Molly Garcia MD at 05/02/2019 11:57 AM CANAL BOAT OPERATOR L BOAT OPERATOR L BOAT OPERATOR documented in this encounter Discharge Instructions * Appointments* Ann Marie Mariano RN - 05/01/2019 2:23 PM CANAL BOAT OPERATOR This is the earliest available appointment with your PCP, Please bring discharge paperwork with list of medicines, insurance card and photo ID to appointment. Please arrive at least 15 minutes early prior to appointment. If you are unable to keep this appointment, it is very important you call to reschedule. L BOAT OPERATOR documented in this encounter Medications at [...] mcg tablet Take 50 mcg by mouth early childhood special educator before breakfast 0 lisinopril (PRINIVIL,ZESTRI L) 10 [...] hx melenic stools. Per pt, admitted to [facility] on 04/14 and d/c 04/24; sherequired multiple [...] 2 units pRBC in ED. - Requested [facility] records - 2 Large bore IVs - [...] hypothyroidism and prescription of levothyroxine 50mcg. -Requested [facility] Records -Repeat TSH is 4.2, free T4 is 1.17 -Patient is Euthyroid, will start levothyroxine outpatient if needed ?? Congestive heart failure (CHF) ([facility]) Assessment & Plan Per patient, recently diagnosed at [facility] (02/2019). - Requested [facility] Records to be faxed over - Hold [...] Molly Garcia MD at 05/02/2019 12:01 PM CANAL BOAT OPERATOR L BOAT OPERATOR L BOAT OPERATOR Associated attestation - Molly Garcia MD - 05/02/2019 12:01 PM CANAL BOAT OPERATOR I have seen and examined the [...] Results (from the past 24 hour(s)) POCT [id number]-P-[id number]-[id number]-HCT, WB - ISTAT Collection Time: 04/30/19 2:13 PM Result Value Ref Range Hct, POC 25.0 (L) 35.6 - 45.5 % POCT hCG, urine Collection Time: 04/30/19 2:15 PM Result Value Ref Range HCG, ur, POC Negative Lot Number [id number] QC Backgroud Clear Acceptable QC Control Line [...] through Saturday from 0800 to 1700 at [phone]. From 1700 to 0800 Saturday through Saturday and all day Saturday/Saturday, we can be reached at [phone]. L BOAT OPERATOR * Lilian Cee MD - 05/01/2019 [...] hx melenic stools. Per pt, admitted to [facility] on 04/14 and d/c 04/24; sherequired multiple [...] 2 units pRBC in ED. - Requested [facility] records - 2 Large bore IVs - [...] hypothyroidism and prescription of levothyroxine 50mcg. -Requested [facility] Records -Repeat TSH is 4.2, free T4 is 1.17 -Patient is Euthyroid, will start levothyroxine outpatient if needed Congestive heart failure (CHF) ([facility]) Assessment & Plan Per patient, recently diagnosed at [facility] (02/2019). - Requested [facility] Records to be faxed over - Hold [...] Molly Garcia MD at 05/01/2019 10:44 AM CANAL BOAT OPERATOR L BOAT OPERATOR L BOAT OPERATOR Associated attestation - Molly Garcia MD - 05/01/2019 10:44 AM CANAL BOAT OPERATOR I have seen and examined the [...] info (name, phone, availablity) Jose Willis (son) [phone] Home Care Services No Durable Medical Equipment [...] Information/Options Discussed: Explained role and purpose of caser shoe parts role. Demographics verified with face sheet. Plan Includes: Establish a safe discharge. Insurance verified as: Bartolo FOX PCP verified as: DENNISE Esparza at [employer] -[phone] Transportation: family Admit Source: ED from home [...] needs after 4:30 pm, please call the financial services technician . For weekend/holiday needs from 8:00a.m. - 4:30p.m., please call the Weekend Juvenile Probation Officer . L BOAT OPERATOR documented in this encounter H&P Notes [...] weeks of melena. Pt was admitted to [facility] on 04/15/19 for two days of dark [...] PM Result Value Ref Range Product code C5942P79 Unit Number [id number] Product Blood Type OPOS Dispense Status ISSUED Product code [id number] Unit Number [id number] Product Blood Type OPOS Dispense Status ISSUED [...] hx melenic stools. Per pt, admitted to [facility] on 04/14 and d/c 04/24; sherequired multiple [...] presence in ED, plan for EGD on 04/30.Last dose of xarelto ~04/15/19. S/p 2 units pRBC in ED. - Requested [facility] records - 2 Large bore IVs - NPO for EGD - Q8H CBCs, T&S, consented - Transfuse for Hgb<7 - IV protonix BID - Monitor on Telemetry - avoid NSAIDs, ASA, anticoagulants Hypothyroidism Assessment & Plan Pt with reported new diagnosis of hypothyroidism and prescription of levothyroxine 50mcg. -Requested [facility] Records -Repeat TSH -Will start home levothyroxine pending TSH Congestive heart failure (CHF) ([facility]) Assessment & Plan Per patient, recently diagnosed at [facility] (02/2019). - Requested [facility] Records to be faxed over - Hold [...] Internal Medicine, PGY1 Addendum: Records received from [facility]. EGD 04/19/19: demonstrated 1cm small anastomotic [...] Molly Garcia MD at 04/30/2019 4:17 PM CANAL BOAT OPERATOR L BOAT OPERATOR L BOAT OPERATOR L BOAT OPERATOR L BOAT OPERATOR Associated attestation - Molly Garcia MD - 04/30/2019 4:17 PM CANAL BOAT OPERATOR I have seen and examined the patient on 04/30/19. I agree with the findings and plan of care as documented in the resident's/fellow's note. I reviewed prior records from [facility] which are summarized in this note. Recently admitted to [facility] 04/15-04/24 for melena, found to have anastomotic ulcer. I personally reviewed abdominal x-ray: normal bowel gas pattern. No free air. documented in this encounter Procedure Notes * Radha Barr RN - 05/01/2019 5:22 PM CST Vascular [...] -MR Removal Date: 05/01/19 -MR Removal Time: 1355 -MR Removal Reason : Drainage -MR Peripheral [...] By Initials Name MR Cecil [facility] Frankie Mccann RN FS Radha Barr RN Plan: Follow up: Radha Barr RN L BOAT OPERATOR Ozzie Basilio MD - 04/30/2019 2:21 PM CSTAssociated Order(s): [facility] Patient Name: Tiarra Addison Procedure Date: 04/30/2019 2:21 PM Date of : 1970 Admit Type: Outpatient Age: 48 Gender: Female Attending MD: Ozzie Pascual M.D. Room: [facility] OR POD 5 ROOM 224 Note Status: [...] passed under direct vision. The GIF [id number] endoscope was introduced through the mouth, and [...] On: 04/30/2019 2:21 PM Recognized by the [place] [employer] for promoting quality in endoscopy L BOAT OPERATOR documented in this encounter Consult Notes [...] anemia. The patient was recently admitted to [facility] on 04/15/19. She presented complaining of dark [...] to EDfor evaluation so she came to [facility]. On arrival to ED she was HDS. [...] this when her dark stool started around 1/6 and has not taken it since. Past Medical History: Diagnosis Date ??? Cellulitis ??? CHF (congestive heart failure) ([facility]) ??? DVT (deep venous thrombosis) (CMS/HCC) ??? [...] file Gets together: Not on file Attends zoroastrian service: Not on file Active member of [...] Merged History Encounter Born and raised in [place], no abuse during childhood, has masters degree [...] PM Result Value Ref Range Product code N6330W81 Unit Number [id number] Product Blood Type OPOS Dispense Status ISSUED Product code M5614R75 Unit Number [id number] Product Blood Type OPOS Dispense Status ISSUED [...] through Saturday from 0800 to 1700 at [phone]. From 1700 to 0800 Saturday through Saturday and all day Saturday/Saturday, we can be reached at [phone]. Cosigned by Ozzie Pascual MD at 05/02/2019 7:10 PM CANAL BOAT OPERATOR L BOAT OPERATOR L BOAT OPERATOR Associated attestation - Ozzie Pascual MD - 05/02/2019 7:10 PM CANAL BOAT OPERATOR I have seen and examined the patient on 04/30/19. I agree with the findings and plan of care as documented in the resident's/fellow's note. documented in this encounter ED Notes * Soo Basilio RN - 04/30/2019 10:45 AM CST Bed: OBS-10 Expected date: Expected time: Means of arrival: Comments: em 3 pt Soo Basilio RN 04/30/19 1045 L BOAT OPERATOR * Phil Morillo MD - 04/29/2019 [...] She also has dizziness and dyspnea on exertion. Plan for labs, type and screen, CBC, BMP, coags. Patient's hemoglobin is 5.2 plan for transfusion of 2 units. Plan to contact GI and admit for further evaluation. MDM Phil Morillo MD Attending Emergency Physician Phil Morillo MD 04/29/19 2243 L BOAT OPERATOR * Phil Morillo MD - 04/29/2019 7:46 PM CST HPI Chief Complaint Patient presents with ??? Dizziness ??? Black or Bloody Stool 47 year old female with HTN, PSA, chronic lymphedema and DVT (on xarelto), here with bloody stools x2 weeks. She was seen at [facility] at initial bloody stool [...] (CMS/HCC) 02/04/2018 ??? Dementia associated with alcoholism ([facility]/HCC) 02/04/2018 ??? Cognitive and behavioral changes 02/04/2018 ??? History of DVT (deep vein thrombosis) 02/04/2018 ??? Chronic acquired lymphedema 02/04/2018 ??? Hypertension 02/04/2018 ??? Anemia 02/04/2018 ??? Polysubstance abuse (CMS/HCC) 02/04/2018 Past Medical History: Diagnosis Date ??? Cellulitis ??? CHF (congestive heart failure) (CMS/HCC) ??? DVT (deep venous thrombosis) ([facility]) ??? Hypertension ??? Lymph edema Past Surgical [...] Merged History Encounter Born and raised in [place], no abuse during childhood, has masters degree [...] Triage Vitals Temp Pulse Resp BP SpO2 01/22/179904/29/19 1800 04/29/19 1800 04/29/19 1800 04/29/19 1800 [...] Tenderness to palpation in epigastrum Musculoskeletal: Comments: R LE with chronic lymphedema, normal distal pulses Skin: [...] resident. By: Glory Palafox MD Time: 04/30 7993 Comment: GI is aware of patient. Will plan for EGD today. By: Scout Santana MD Time: 04/30 1032 Comment: Patient is getting 3rd unit of blood. GI is planning on scoping patient afterwards. By: Scout Santana MD Time: 04/30 1118 Comment: Pt scheduled for EGD today. Currently receiving unit of blood. Denies dizziness currently. By: DENNISE Ricketts Gastrointestinal hemorrhage with frederic Glory Palafox MD 04/29/19 2312 Phil Morillo MD 04/30/19 1141 L BOAT OPERATOR L BOAT OPERATOR * Lotus Faustin RN - 04/29/2019 7:45 PM CST Bed: ED1-09 Expected date: Expected time: Means of arrival: Ambulance Comments: Lotus Faustin RN 04/29/191944 L BOAT OPERATOR * Phylicia Zuluaga RN - 04/29/2019 6:02 PM CST Recently seen at [facility] for GI bleed. Had to get 5 blood transfusions. Had scope and found ulcer in upper GI but states ultimately could not find the source of the bleeding. Still havingblack stools. No vomiting. Also reports hemoglobin 7.3 when she was dc'd from OSH. Reports feeling dizzy and faint today, checked BP at home and was 90/40. L BOAT OPERATOR documented in this encounter Miscellaneous Notes * Plan of Care - Avinash Hobbs, GEOVANY - 05/02/2019 12:18 PM CST Goals: Clinical [...] avoided or minimized Outcome: Adequate for Discharge L BOAT OPERATOR * Plan of Care - Seema [...] otherwise as charted. Will continue to monitor. L BOAT OPERATOR * Plan of Care - Cecil David Jr. RN - 05/01/2019 3:18 PM CST Problem: [...] decrease to 7.9. Will continue to monitor. L BOAT OPERATOR * Hospital Course - Jesse Xiao - 05/01/2019 10:52 AM CST Tiarra Addison is a 48 y.o. F w/ history of GBP ([place]-Y in 1999), PE/DVT s/p IVC filter placementand on Xarelto (last taken on 04/13/2019). Pt's melena started on 04/13/2019. She noticed she was having black and tarry stools and she was admitted to [facility] on 04/15/2019. During her course at OSH [...] dizzy. At this point she presented to [facility] (on 04/29/2019). At [facility], her Hb was measured as 5.6 and [...] levothyroxine. ?? CHF: 04/29/2019. CHF dx at [facility] in Feb 2019. Requested records from [facility]. Holding home metop and furosemide in setting of volume loss. ?? VTE Hx: 04/29/2019: VTE last July. Patient held her own Xarelto in s/o melena starting 04/13/2019.SCDs for prevention. L BOAT OPERATOR L BOAT OPERATOR L BOAT OPERATOR L BOAT OPERATOR L BOAT OPERATOR L BOAT OPERATOR * Medical Student - Jesse Xiao [...] 0.9%, 30 mL/hr, Last Rate: Stopped (04/30/19 4597) PRN Medications: morphine ??? ondansetron ??? ramelteon [...] home levothyroxine CHF: - Recently dx at [facility] in Feb 2019. - requested records from [facility] - Hold home metop and furosemide in setting of volume loss. VTE Hx: - VTE last July - Hold Xarelto in s/o bleed - SCDs for prevention. Code Status: Full Code Diet: Adult Diet Restricted; 2 GM Sodium DVT Prophylaxis: use SCDs for prevention. Jesse Xiao 05/01/2019 10:44 AM Cosigned by Norberto Hickey MD at 05/01/2019 1:31 PM CANAL BOAT OPERATOR L BOAT OPERATOR L BOAT OPERATOR * Plan of Care - Rosalia [...] morphine for pain, will continue to monitor. L BOAT OPERATOR * Plan of Care - Cecil [...] Progressing Goals: Clinical Goals for the Shift: [place] to unit, pain control Summary: The patient's assessment and admission process were completed. The patient's prn pain med was administered for pain. L BOAT OPERATOR * Medical Student - Jesse Xiao [...] tarry stools and she was admitted to [facility] at that time. During her course at OSH she received 4units pRBC and underwent upper endoscopy, which showed non-bleeding ulcer at the anastomosis. She was d/c on 04/24/2019 while she was still having black, tarry stools. She continued to experience melena about 2x/day at home. She takes her own BP and noticed her BP decreasing and felt dizzy. At thispoint she presented to [facility] (yesterday). She also had new epigastric pain [...] has never before had melena. s At [facility], her Hb was measured as 5.6 and [...] mL PRN Medications: [JUN Hold] morphine ??? [MAR Hold] ondansetron ??? sodium chloride 0.9% ??? [...] home levothyroxine CHF: - Recently dx at [facility] in Feb 2019. - requested records from [facility] - Hold home metop and furosemide in setting of volume loss. VTE Hx: - VTE last July - Hold Xarelto in s/o bleed - SCDs for prevention. Code Status: Full Code Diet: NPO Diet DVT Prophylaxis: use SCDs for prevention. Jesse Xiao 04/30/2019 2:43 PM Cosigned by Norberto Hickey MD at 04/30/2019 3:34 PM CANAL BOAT OPERATOR L BOAT OPERATOR L BOAT OPERATOR L BOAT OPERATOR * ED Observation Provider Note - [...] Cecil Carver MD at 05/01/2019 9:19 PM CANAL BOAT OPERATOR L BOAT OPERATOR L BOAT OPERATOR Associated attestation - Cecil Carver MD - 05/01/2019 9:19 PM CANAL BOAT OPERATOR I have seen and examined the patient on 04/29/2019 in conjunction with DENNISE Gaol My findings and recommendations are to continue the infusion of blood and admit for EGD * ED Re-evaluation Note - Scout Santana MD - 04/30/2019 7:06 AM CANAL BOAT OPERATOR ED Re-evaluation TRANSITION OF CARE: I, [...] Will By: Glory Palafox MD Time: 04/29 759 Comment: Signout given to floor team. Patient signed out to Dr. Bartlett, on coming ED resident. By: Glory Palafox MD Time: 04/30 4842 Comment: is aware of patient. Will plan for EGD today. By: Scout Santana MD Time: 04/30 1032 Comment: Patient is getting 3rd unit of blood. is planning on scoping patient afterwards. By: Scout Santana MD Time: 04/30 1118 Comment: Pt scheduled for EGD today. Currently receiving unit of blood. Denies dizziness currently. By: DENNISE Ricketts MD Resident 05/01/19 1722 L BOAT OPERATOR * Assessment & Plan Note - Cari Landers MD - 04/30/2019 5:31 AM CANAL BOAT OPERATOR Associated Problem(s): Acute blood loss anemia Hgb to 5.6 in the setting of melenic stools. S/p 2u pRBC in ED. -q8h CBC, T&S, consented -further management as listed under upper GI bleed L BOAT OPERATOR L BOAT OPERATOR * Assessment & Plan Note - Cari Landers MD - 04/30/2019 2:23 AM CANAL BOAT OPERATOR Associated Problem(s): Acute upper GI bleed 2 week hx melenic stools. Per pt, admitted to [facility] on 04/14 and d/c 04/24; sherequired multiple [...] 2 units pRBC in ED. - Requested [facility] records - 2 Large bore IVs - NPO for EGD - Q8H CBCs, T&S, consented - Transfuse for Hgb<7 - IV protonix BID - Monitor on Telemetry - avoid NSAIDs, ASA, anticoagulants L BOAT OPERATOR L BOAT OPERATOR L BOAT OPERATOR L BOAT OPERATOR * Assessment & Plan Note - Cari Landers MD - 04/30/2019 2:21 AM CANAL BOAT OPERATOR Associated Problem(s): Hypothyroidism Pt with reported new diagnosis of hypothyroidism and prescription of levothyroxine 50mcg. -Requested [facility] Records -Repeat TSH -Will start home levothyroxine pending TSH L BOAT OPERATOR * Assessment & Plan Note - Cari Landers MD - 04/30/2019 2:20 AM CANAL BOAT OPERATOR Associated Problem(s): Congestive heart failure (CHF) (CMS/HCC) (HCC) Per patient, recently diagnosed at [facility] (02/2019). - Requested [facility] Records to be faxed over - Hold home metop XL and furosemide L BOAT OPERATOR * Assessment & Plan Note - Cari Landers MD - 04/30/2019 2:19 AM CANAL BOAT OPERATOR Associated Problem(s): Hypertension Reviewed patient's medication bottles at bedside. Currently takes lisinopril 10mg, hydrochlorothiazide (HCTZ) 25mg, metop xl 25mg, furosemide 40mg daily. -Hold home BP meds due to normotension and GIB L BOAT OPERATOR * Assessment & Plan Note - Cari Landers MD - 04/30/2019 2:18 AM CANAL BOAT OPERATOR Associated Problem(s): History of DVT (deep vein thrombosis) Prior DVTs/PEs. S/p IVC filter placement. On Xarelto at home, last dose reportedly around ~04/15/19, as she stopped this medication around the time she started developing melenic stools. - Hold Xarelto iso bleed - SCDs L BOAT OPERATOR * ED Procedure Note - Re [...] entire procedure Angely Hou MD Resident 04/30/19 0106 Re Montez MD 04/30/19 0731 L BOAT OPERATOR L BOAT OPERATOR L BOAT OPERATOR * ED Procedure Note - Angely Hou MD - 04/29/2019 11:49 PM CANAL BOAT OPERATOR Associated Order(s): Peripheral line insertion Procedure [...] immediate complications Angely Hou MD Resident 04/29/19 2471 Cosigned by Re Montez MD at 04/30/2019 6:48 AM CANAL BOAT OPERATOR L BOAT OPERATOR L BOAT OPERATOR * ED Re-evaluation Note - Christina Bartlett MD - 04/29/2019 10:45 PM CANAL BOAT OPERATOR ED Re-evaluation TRANSITION OF CARE: I, [...] MD Christina Bah MD Resident 04/30/19 0721 L BOAT OPERATOR * ED Procedure Note - Phil Morillo MD - 04/29/2019 10:41 PM CANAL BOAT OPERATOR Associated Order(s): Critical Care Procedure Critical [...] the medical record. Phil Morillo MD 04/29/19 8682 L BOAT OPERATOR * ED Procedure Note - Angely Hou MD - 04/29/2019 10:10 PM CANAL BOAT OPERATOR Associated Order(s): Peripheral line insertion Procedure [...] flushes without difficulty Angely Hou MD Resident 04/29/19 6168 Cosigned by Phil Morillo MD at 04/30/2019 11:18 AM CANAL BOAT OPERATOR L BOAT OPERATOR L BOAT OPERATOR Associated attestation - Phil Morillo MD - 04/30/2019 11:18 AM CANAL BOAT OPERATOR I was present for the entire procedure * ED Procedure Note - Angely Hou MD - 04/29/2019 8:26 PM CANAL BOAT OPERATOR Associated Order(s): Peripheral line insertion Procedure [...] Phil Morillo MD at 04/30/2019 11:18 AM CANAL BOAT OPERATOR L BOAT OPERATOR L BOAT OPERATOR Associated attestation - Phil Morillo MD - 04/30/2019 11:18 AM CANAL BOAT OPERATOR I was present for the entire procedure documented in this encounter Plan of Treatment Not on file documented as of this encounter Procedures Procedure Name Priority Date/Time Associated Diagnosis Comments CBC WITHOUT DIFFERENTIAL Timed 11:46 PM CANAL BOAT OPERATOR CBC WITHOUT DIFFERENTIAL Timed 020 4:37 PM CANAL BOAT OPERATOR BASIC METABOLIC PANEL Routine 05/01/2019 4:37 PM CANAL BOAT OPERATOR CBC WITHOUT DIFFERENTIAL Timed 8:00 AM CANAL BOAT OPERATOR THYROID FUNCTION CASCADE Routine 10:38 PM CANAL BOAT OPERATOR CBC WITHOUT DIFFERENTIAL Timed 10:38 PM CANAL BOAT OPERATOR T4, FREE Routine 04/30/2019 10:38 PM CANAL BOAT OPERATOR BASIC METABOLIC PANEL Routine 04/30/2019 10:38 PM CANAL BOAT OPERATOR SURGICAL PATHOLOGY Routine 04/30/2019 2:36 PM CANAL BOAT OPERATOR Gastrointestina l hemorrhage with melena EGD 04/30/2019 2:21 PM CANAL BOAT OPERATOR ESOPHAGOGASTRODUODENOSCOPY CONTROL BLEED 04/30/2019 2:20 PM CANAL BOAT OPERATOR Gastrointestina l hemorrhage with melena POCT HCG, URINE Routine 04/30/2019 2:15 PM CANAL BOAT OPERATOR POCT PW-K-BMP-GLU-HCT,WB - ISTAT Routine 04/30/2019 2:13 PM CANAL BOAT OPERATOR TRANSFUSE RED BLOOD CELLS Timed 2019 10:30 AM CANAL BOAT OPERATOR PREPARE RBC Timed 04/30/2019 9:00 AM CANAL BOAT OPERATOR DIFFERENTIAL AUTO Routine 04/30/2019 8:05 AM CANAL BOAT OPERATOR CBC WITH AUTO DIFFERENTIAL Routine 04/30 8:05 AM CANAL BOAT OPERATOR TRANSFUSE RED BLOOD CELLS Timed 2019 2:10 AM CANAL BOAT OPERATOR ED PERIPHERAL LINE INSERTION Routine 1:06 AM CANAL BOAT OPERATOR TRANSFUSE RED BLOOD CELLS Timed 2019 12:45 AM CANAL BOAT OPERATOR ED PERIPHERAL LINE INSERTION Routine 11:49 PM CANAL BOAT OPERATOR XR ABDOMEN ERECT AND OR DECU BITS 2 VIEWS ED 04/29/2019 10:46 PM CANAL BOAT OPERATOR CA CRITICAL CARE ILL/INJURED PATIENT INIT 30-74 MIN Routine 04/29/2019 10:41 PM CANAL BOAT OPERATOR ED PERIPHERAL LINE INSERTION Routine 10:10 PM CANAL BOAT OPERATOR B CHECK SAMPLE STAT 04/29/2019 9:36 PM CANAL BOAT OPERATOR PREPARE RBC Timed 04/29/2019 9:10 PM CANAL BOAT OPERATOR POCT LACTATE - DEVICE Routine 04/29/2019 8:39 PM CANAL BOAT OPERATOR DIFFERENTIAL AUTO STAT 04/29/2019 8:32 PM CANAL BOAT OPERATOR CBC WITH AUTO DIFFERENTIAL STAT 04/29 8:32 PM CANAL BOAT OPERATOR APTT STAT 04/29/2019 8:32 PM CANAL BOAT OPERATOR PROTIME-INR STAT 04/29/2019 8:32 PM CANAL BOAT OPERATOR TYPE AND SCREEN STAT 04/29/2019 8:32 PM CANAL BOAT OPERATOR HAPTOGLOBIN STAT 04/29/2019 8:32 PM CANAL BOAT OPERATOR HEPATIC FUNCTION PANEL STAT 0 8:32 PM CANAL BOAT OPERATOR BASIC METABOLIC PANEL STAT 04/29/2019 8:32 PM CANAL BOAT OPERATOR ED PERIPHERAL LINE INSERTION Routine 8:26 PM CANAL BOAT OPERATOR documented in this encounter Results * (ABNORMAL) CBC without differential (05/01/2019 11:46 PM CANAL BOAT OPERATOR) WBC 6.9 3.8 - 9.9 K/cumm [facility] Hgb 8.2(L) 11.9 - 15.5 g/dL [facility] Hct 27.0(L) 35.6 - 45.5 % [facility] Plt 296 150 - 400 K/cumm [facility] MPV 9.9 9.1 - 12.3 fL [facility] RBC 2.93(L) 3.90 - 5.20 M/cumm [facility] MCV 92.2 81.3 - 96.4 fL [facility] MCH 28.0 27.1 - 33.3 pg [facility] MCHC 30.4(L) 32.3 - 35.7 g/dL [facility] RDW CV 19.3(H) 11.1 - 14.9 % [facility] RDW SD 59.0(H) 35.7 - 48.1 fL [facility] NRBC abs 0.00 0.00 - 0.01 K/cumm [facility] Blood specimen (specimen) 05/01/2019 11:46 PM CANAL BOAT OPERATOR 05/02/2019 12:05 AM CANAL BOAT OPERATOR Re Montez MD LAB BLOOD ORDERABLES Final R esult [facility] Department [place] [address] * Basic metabolic panel (05/01/2019 4:37 PM CANAL BOAT OPERATOR) Sodium 141 135 - 145 mmol/L [facility] Potassium, pl 4.6 3.3 - 4.9 mmol/L [facility] Chloride 110 97 - 110 mmol/L [facility] CO2 25 22 - 32 mmol/L [facility] Anion gap 6 2 - 15 mmol/L [facility] BUN 11 8 - 25 mg/dL [facility] Creatinine 0.90 0.60 - 1.10 mg/dL [facility] Glucose 87 70 - 199 mg/dL [facility] Comment: Interpretive Data Fasting glucose [...] 2017. Calcium 9.0 8.5 - 10.3 mg/dL [facility] Blood specimen (specimen) 05/01/2019 4:37 PM CANAL BOAT OPERATOR 05/01/2019 4:46 PM CANAL BOAT OPERATOR Re Montez MD LAB BLOOD ORDERABLES Final R esult Performing Organization Address [facility]/ZIP Co de Phone Number [facility] Department [place] [address] * (ABNORMAL) CBC without differential (05/01/2019 4:37 PM CANAL BOAT OPERATOR) Pathologist [facility] [place] WBC 7.0 3.8 - 9.9 K/cumm [facility] Hgb 7.8(L) 11.9 - 15.5 g/dL [facility] Hct 25.2(L) 35.6 - 45.5 % [facility] Plt 268 150 - 400 K/cumm [facility] MPV 9.9 9.1 - 12.3 fL [facility] RBC 2.74(L) 3.90 - 5.20 M/cumm [facility] MCV 92.0 81.3 - 96.4 fL [facility] MCH 28.5 27.1 - 33.3 pg [facility] MCHC 31.0(L) 32.3 - 35.7 g/dL [facility] RDW CV 19.0(H) 11.1 - 14.9 % [facility] RDW SD 59.3(H) 35.7 - 48.1 fL [facility] NRBC abs 0.00 0.00 - 0.01 K/cumm [facility] Blood specimen (specimen) 05/01/2019 4:37 PM CANAL BOAT OPERATOR 05/01/2019 4:46 PM CANAL BOAT OPERATOR Re Montez MD LAB BLOOD ORDERABLES Final R esult [facility] Department [place] [address] * (ABNORMAL) CBC without differential (05/01/2019 8:00 AM CANAL BOAT OPERATOR) [facility] WBC 7.2 3.8 - 9.9 K/cumm [facility] Hgb 7.9(L) 11.9 - 15.5 g/dL [facility] Hct 26.3(L) 35.6 - 45.5 % [facility] Plt 285 150 - 400 K/cumm [facility] MPV 10.1 9.1 - 12.3 fL [facility] RBC 2.87(L) 3.90 - 5.20 M/cumm [facility] MCV 91.6 81.3 - 96.4 fL [facility] MCH 27.5 27.1 - 33.3 pg [facility] MCHC 30.0(L) 32.3 - 35.7 g/dL [facility] RDW CV 18.9(H) 11.1 - 14.9 % [facility] RDW SD 58.8(H) 35.7 - 48.1 fL [facility] NRBC abs 0.00 0.00 - 0.01 K/cumm [facility] Blood specimen (specimen) 05/01/2019 8:00 AM CANAL BOAT OPERATOR 05/01/2019 10:51 AM CANAL BOAT OPERATOR us Re Montez MD LAB BLOOD ORDERABLES Final R esult Performing Organization Address City/State/[facility] Co de Phone Number [facility] Department [place] [address] * T4, free (04/30/2019 10:38 PM CANAL BOAT OPERATOR) [facility] Free T4 1.17 0.90 - 1.70 ng/dL [facility] Blood specimen (specimen) 04/30/2019 10:38 PM CANAL BOAT OPERATOR 04/30/2019 10:49 PM CANAL BOAT OPERATOR Narrative [facility] - 04/30/2019 11:57 PM CANAL BOAT OPERATOR This test was reflexed from a TSH result. Re Montez MD LAB BLOOD ORDERABLES Final R esult Performing Organization Address City/[facility]/ZIP Co de Phone Number [facility] Department [place] [address] * Basic metabolic panel (04/30/2019 10:38 PM CANAL BOAT OPERATOR) Pathologist [facility] [place] Sodium 140 135 - 145 mmol/L [facility] Potassium, pl 4.0 3.3 - 4.9 mmol/L [facility] Chloride 108 97 - 110 mmol/L [facility] CO2 24 22 - 32 mmol/L [facility] Anion gap 8 2 - 15 mmol/L [facility] BUN 11 8 - 25 mg/dL [facility] Creatinine 0.86 0.60 - 1.10 mg/dL [facility] Glucose 93 70 - 199 mg/dL [facility] Comment: Interpretive Data Fasting glucose [...] 2017. Calcium 9.1 8.5 - 10.3 mg/dL [facility] Blood specimen (specimen) 04/30/2019 10:38 PM CANAL BOAT OPERATOR 04/30/2019 10:49 PM CANAL BOAT OPERATOR Re Montez MD LAB BLOOD ORDERABLES Final R esult Performing Organization Address City/[facility]/ZIP Co de Phone Number [facility] Department [place] [address] * (ABNORMAL) CBC without differential (04/30/2019 10:38 PM CANAL BOAT OPERATOR) Pathologist [facility] [place] WBC 8.9 3.8 - 9.9 K/cumm [facility] Hgb 8.6(L) 11.9 - 15.5 g/dL [facility] Hct 28.0(L) 35.6 - 45.5 % [facility] Plt 304 150 - 400 K/cumm [facility] MPV 10.0 9.1 - 12.3 fL [facility] RBC 3.06(L) 3.90 - 5.20 M/cumm [facility] MCV 91.5 81.3 - 96.4 fL [facility] MCH 28.1 27.1 - 33.3 pg [facility] MCHC 30.7(L) 32.3 - 35.7 g/dL [facility] RDW CV 19.0(H) 11.1 - 14.9 % [facility] RDW SD 58.1(H) 35.7 - 48.1 fL [facility] NRBC abs 0.00 0.00 - 0.01 K/cumm [facility] Blood specimen (specimen) 04/30/2019 10:38 PM CANAL BOAT OPERATOR 04/30/2019 10:49 PM CANAL BOAT OPERATOR Re Montez MD LAB BLOOD ORDERABLES Final R esult Performing Organization Address City/[facility]/ZIP Co de Phone Number [facility] Department [place] [employer] [address] * (ABNORMAL) TSH reflex to free T4 (04/30/2019 10:38 PM CANAL BOAT OPERATOR) Pathologist [facility] [place] TSH 4.24(H) 0.30 - 4.20 mcIUnit/mL [facility] Blood specimen (specimen) 04/30/2019 10:38 PM CANAL BOAT OPERATOR 04/30/2019 10:49 PM CANAL BOAT OPERATOR Re Montez MD LAB BLOOD ORDERABLES Final R esult [facility] Department [place] [address] * Surgical pathology (04/30/2019 2:36 PM CANAL BOAT OPERATOR) Tissue (Gastric/Stomach biopsy) 04/30/2019 2:36 PM CANAL BOAT OPERATOR Narrative PATHOLOGY [facility] - 05/04/2019 5:11 PM CANAL BOAT OPERATOR EPIC results best viewed via link to PDF [facility] [place] [address] SURGICAL PATHOLOGY REPORT FINAL Patient Name: ?? TIARRA ADDISON Gender: ??F : ??1970 (Age: 48) Address: ??[address] [place], [place] ??[address] Hospital #: ??[id number] Taken:04/30/2019 Received:04/30/2019 Reported: 05/04/2019 Patient Type: [facility] Inpatient ?? Service: Internal Medicine Location: [place] [address] Physician(s): ??Simon Rodríguez M.D. Diagnosis: A. ??Stomach, pouch, biopsy ? - Oxyntic mucosa with inactive chronic gastritis ? - No Helicobacter pylori organisms (immunohistochemical stain) or intestinal metaplasia /05/01/2019 13:07 By this signature, I attest that [...] in aggregate. ??Wrapped. ??Labeled A1. ??Jar 0. and/04/30/2019 16:44 PA(s): Matti Gregory MS, PA ([facility]) By this signature, I attest that the above diagnosis is based upon my personal examination of the slides(and/or other material). The performance characteristics of some immunohistochemical stains, fluorescence in-situ hybridization tests and immunophenotyping by flow cytometry cited in this report (if any) were determined by the Surgical Pathology Department at [facility] as part of an ongoing quality assurance manager program and in compliance with federally mandated [...] ONLY VIEWABLE IN PDF VERSION OF REPORT Ozzie Pascual MD LAB PATHOLOGY ORDERABLES Final Result PATHOLOGY [facility] 3rd Floor [place], [place] [phone] * EGD (04/30/2019 2:21 PM CANAL BOAT OPERATOR) Anatomical Region Laterality Modality Other Narrative Procedure Note Ozzie Pascual MD - 04/30/2019 2:21 PM [facility] Patient Name: Tiarra Addison Procedure Date: 04/30/2019 2:21 PM Date of : 1970 Admit Type: Outpatient Age: 48 Gender: Female Attending MD: Ozzie Pascual M.D. Room: [facility] OR POD 5 ROOM 224 Note Status: [...] The scope was passed under direct vision. [facility] [id number] endoscope was introduced through the mouth, and [...] On: 04/30/2019 2:21 PM Recognized by the [employer] for promoting quality in endoscopy us Ozzie Pascual MD ENDOSCOPY PROCEDURES Fin al Result * POCT hCG, urine (04/30/2019 2:15 PM CANAL BOAT OPERATOR) HCG, ur, POC Negative Lot Number [id number] QC Backgroud Clear Acceptable QC Control Line Acceptable Urine 04/30/2019 2:15 PM CANAL BOAT OPERATOR Ozzie Pascual MD POINT OF CARE TEST ORDER ED Final Result * (ABNORMAL) POCT [id number]-HCT, WB - ISTAT (04/30/2019 2:13 PM CANAL BOAT OPERATOR) Hct, POC 25.0(L) 35.6 - 45.5 % [facility] Blood specimen (specimen) 04/30/2019 2:13 PM CANAL BOAT OPERATOR 04/30/2019 2:13 PM CANAL BOAT OPERATOR Ozzie Pascual MD LAB POCT ORDERABLES - DE VICE Final Result Performing Organization Address [facility]/ZIP Co de Phone Number [facility] Department [place] [address] * Transfuse RBC (04/30/2019 12:34 PM CANAL BOAT OPERATOR) Blood specimen (specimen) Scout Santana MD BLOOD TRANSFUSION ORDER ED Final Result [facility] Department [place] [address] * Transfuse RBC: 1 Units (04/30/2019 12:34 PM CANAL BOAT OPERATOR) Blood specimen (specimen) Scout Santana MD BLOOD TRANSFUSION ORDER ED Final Result * Prepare RBC: 1 Units (04/30/2019 9:00 AM CANAL BOAT OPERATOR) Product code [id number] [facility] Unit Number [id number] [facility] Product Blood Type OPOS [facility] Dispense Status PRESUMED TRANSFUSED [facility] Blood specimen (specimen) 04/30/2019 9:00 AM CANAL BOAT OPERATOR 04/30/2019 9:00 AM CANAL BOAT OPERATOR Narrative [facility] - 05/01/2019 12:48 AM CANAL BOAT OPERATOR Are special requirements needed? (all products are leukoreduced)->No THE COLLECTION LOCATION IS [facility] ED3-09 LRRBC # of [id number] Reasons:-Hgb <7 g/dL} Scout Santana MD BLOOD BANK PRODUCT ORDE AMADOR Final Result [facility] Department [place] [address] * (ABNORMAL) Differential, auto (04/30/2019 8:05 AM CANAL BOAT OPERATOR) Neutrophil abs 4.8 1.7 - 6.5 K/cumm [facility] Imm gran abs 0.0 0.0 - 0.1 K/cumm [facility] Lymphocyte abs 0.7(L) 0.8 - 3.3 K/cumm [facility] Monocyte abs 0.4 0.2 - 0.8 K/cumm [facility] Eosinophil abs 0.3 0.0 - 0.5 K/cumm [facility] Basophil abs 0.0 0.0 - 0.1 K/cumm [facility] Neutrophil pct 77.1 % [facility] Comment: Interpretive Data Percent cell count reference ranges are not reported, since discordance with absolute values may lead to misinterpretation of CBC data. Current Interpretive Data was last revised on 2017. Imm gran pct 0.3 % [facility] Comment: Interpretive Data Percent cell count reference ranges are not reported, since discordance with absolute values may lead to misinterpretation of CBC data. Current Interpretive Data was last revised on 2017. Lymphocyte pct 11.8 % [facility] Comment: Interpretive Data Percent cell count reference ranges are not reported, since discordance with absolute values may lead to misinterpretation of CBC data. Current Interpretive Data was last revised on 2017. Monocyte pct 6.2 % [facility] Comment: Interpretive Data Percent cell count reference ranges are not reported, since discordance with absolute values may lead to misinterpretation of CBC data. Current Interpretive Data was last revised on 2017. Eosinophil pct 4.3 % [facility] Comment: Interpretive Data Percent cell count reference ranges are not reported, since discordance with absolute values may lead to misinterpretation of CBC data. Current Interpretive Data was last revised on 2017. Basophil pct 0.3 % [facility] Comment: Interpretive Data Percent cell count reference ranges are not reported, since discordance with absolute values may lead to misinterpretation of CBC data. Current Interpretive Data was last revised on 2017. Blood specimen (specimen) 04/30/2019 8:05 AM CANAL BOAT OPERATOR 04/30/2019 8:28 AM CANAL BOAT OPERATOR us Christina Bartlett MD LAB BLOOD ORDERABLES Fi nal Result [facility] Department [place] [address] * (ABNORMAL) CBC with auto differential (04/30/2019 8:05 AM CANAL BOAT OPERATOR) WBC 6.3 3.8 - 9.9 K/cumm [facility] Hgb 6.7(L) 11.9 - 15.5 g/dL [facility] Hct 22.6(L) 35.6 - 45.5 % [facility] Plt 277 150 - 400 K/cumm [facility] MPV 10.1 9.1 - 12.3 fL [facility] RBC 2.45(L) 3.90 - 5.20 M/cumm [facility] MCV 92.2 81.3 - 96.4 fL [facility] MCH 27.3 27.1 - 33.3 pg [facility] MCHC 29.6(L) 32.3 - 35.7 g/dL [facility] RDW CV 19.1(H) 11.1 - 14.9 % [facility] RDW SD 61.1(H) 35.7 - 48.1 fL [facility] NRBC abs 0.00 0.00 - 0.01 K/cumm [facility] Blood specimen (specimen) 04/30/2019 8:05 AM CANAL BOAT OPERATOR 04/30/2019 8:28 AM CANAL BOAT OPERATOR Narrative [facility] - 04/30/2019 8:36 AM CANAL BOAT OPERATOR THE BJ COLLECTION LOCATION IS [facility] ED3-09 us Christina Bartlett MD LAB BLOOD ORDERABLES Fi nal Result Performing Organization Address [facility] Co de Phone Number [facility] [place] [address] * Transfuse RBC (04/30/2019 3:21 AM CANAL BOAT OPERATOR) Blood specimen (specimen) Glory Palafox MD BLOOD TRANSFUSION ORDERA BLES Final Result Performing Organization Address [facility] [place] [address] * Transfuse RBC: 2 Units (04/30/2019 3:21 AM CANAL BOAT OPERATOR) Blood specimen (specimen) Glory Palafox MD BLOOD TRANSFUSION ORDERA BLES Final Result * Transfuse RBC (04/30/2019 2:11 AM CANAL BOAT OPERATOR) Blood specimen (specimen) Glory Palafox MD BLOOD TRANSFUSION ORDERA BLES Final Result Performing Organization Address [facility] de Phone Number [facility] [place] [address] * ED PERIPHERAL LINE INSERTION (04/30/2019 1:06 AM CANAL BOAT OPERATOR) Narrative Re Montez MD - 04/30/2019 1:06 AM CANAL BOAT OPERATOR Re Montez MD ? 04/30/2019 ??7:31 [...] us Re Montez MD IN CLINIC/BEDSIDE ORDERABLES Edited Result - Final * ED PERIPHERAL LINE INSERTION (04/29/2019 11:49 PM CANAL BOAT OPERATOR) Narrative Re Montez MD - 04/29/2019 11:49 PM CANAL BOAT OPERATOR Angely Hou MD ? 04/29/2019 11:50 [...] or Decubitus 2 Views (04/29/2019 10:46 PM CANAL BOAT OPERATOR) Anatomical Region Laterality Modality Body, Abdomen N/A Computed Radiogr aphy 04/29/2019 10:5 9 PM CANAL BOAT OPERATOR Impressions 04/30/2019 3:48 PM CANAL BOAT OPERATOR Supine and upright views of the [...] Joao Palomino M.D. Narrative 04/30/2019 3:48 PM CANAL BOAT OPERATOR EXAMINATION: ??Abdomen with decubitus and/or erect [...] it. Electronically signed by: Joao Palomino M.D. us Glory Palafox MD IMG XR PROCEDURES Final Result * CA CRITICAL CARE ILL/INJURED PATIENT INIT 30-74 MIN (04/29/2019 10:41 PM CANAL BOAT OPERATOR) Narrative Phil Morillo MD - 04/29/2019 10:41 PM CANAL BOAT OPERATOR Phil Morillo MD ? 04/29/2019 10:44 [...] ED PERIPHERAL LINE INSERTION (04/29/2019 10:10 PM CANAL BOAT OPERATOR) Narrative Phil Morillo MD - 04/29/2019 10:10 PM CANAL BOAT OPERATOR Angely Hou MD ? 04/29/2019 10:11 [...] Result * Check Sample (04/29/2019 9:36 PM CANAL BOAT OPERATOR) ABO Rh O Positive [facility] HCLL OTHER 04/29/2019 9:36 PM CANAL BOAT OPERATOR 04/29/2019 11:57 PM CANAL BOAT OPERATOR us Phil Morillo MD LAB BLOOD ORDERABLES Final Result Performing Organization Address [facility] Co de Phone Number [facility] [place] [address] * Prepare RBC: 2 Units (04/29/2019 9:10 PM CANAL BOAT OPERATOR) Product code [id number] [facility] Unit Number [id number] [facility] Product Blood Type OPOS [facility] Dispense Status PRESUMED TRANSFUSED [facility] Product code [id number] [facility] Unit Number [id number] [facility] Product Blood Type OPOS [facility] Dispense Status PRESUMED TRANSFUSED [facility] Blood specimen (specimen) 04/29/2019 9:10 PM CANAL BOAT OPERATOR 04/29/2019 9:11 PM CANAL BOAT OPERATOR Narrative [facility] - 05/01/2019 12:49 AM CANAL BOAT OPERATOR Are special requirements needed? (all products are leukoreduced)->No THE BJ COLLECTION LOCATION IS [facility] ED1-09 LRRBC # of [id number] Reasons:-Hgb <7 g/dL} us Glory Palafox MD BLOOD BANK PRODUCT ORDER ED Final Result Performing Organization Address [facility] Co de Phone Number [facility] [place] [address] * POCT lactate (04/29/2019 8:39 PM CANAL BOAT OPERATOR) [facility] Lactate POC i-STAT 1.0 0.7 - 2.2 mmol/L [facility] Blood specimen (specimen) 04/29/2019 8:39 PM CANAL BOAT OPERATOR 04/29/2019 8:39 PM CANAL BOAT OPERATOR us Phil Morillo MD LAB POCT ORDERABLES - ZAYNAB CE Final Result Performing Organization Address City/[facility]/ZIP Co de Phone Number [facility] [place] [address] * Haptoglobin (04/29/2019 8:32 PM CANAL BOAT OPERATOR) [facility] Haptoglobin 110.0 30.0 - 200.0 mg/dL [facility] Blood specimen (specimen) 04/29/2019 8:32 PM CANAL BOAT OPERATOR 04/29/2019 9:12 PM CANAL BOAT OPERATOR us Philip Cheung MD LAB BLOOD ORDERABLES Final Result Performing Organization Address [facility] de Phone Number [facility] Department [place] [address] * Basic metabolic panel (04/29/2019 8:32 PM CANAL BOAT OPERATOR) [facility] Sodium 140 135 - 145 mmol/L [facility] Potassium, pl 3.8 3.3 - 4.9 mmol/L [facility] Chloride 110 97 - 110 mmol/L [facility] CO2 24 22 - 32 mmol/L [facility] Anion gap 6 2 - 15 mmol/L [facility] BUN 13 8 - 25 mg/dL [facility] Creatinine 0.93 0.60 - 1.10 mg/dL [facility] Glucose 86 70 - 199 mg/dL [facility] Comment: Interpretive Data Fasting glucose [...] 2017. Calcium 9.0 8.5 - 10.3 mg/dL [facility] Blood specimen (specimen) 04/29/2019 8:32 PM CANAL BOAT OPERATOR 04/29/2019 8:39 PM CANAL BOAT OPERATOR us Phil Morillo MD LAB BLOOD ORDERABLES Final Result [facility] Department [place] [address] * Differential, auto (04/29/2019 8:32 PM CANAL BOAT OPERATOR) Neutrophil abs 6.1 1.7 - 6.5 K/cumm [facility] Imm gran abs 0.0 0.0 - 0.1 K/cumm [facility] Lymphocyte abs 1.3 0.8 - 3.3 K/cumm [facility] Monocyte abs 0.4 0.2 - 0.8 K/cumm [facility] Eosinophil abs 0.2 0.0 - 0.5 K/cumm [facility] Basophil abs 0.0 0.0 - 0.1 K/cumm [facility] Neutrophil pct 74.6 % [facility] Comment: Interpretive Data Percent cell count reference ranges are not reported, since discordance with absolute values may lead to misinterpretation of CBC data. Current Interpretive Data was last revised on 2017. Imm gran pct 0.6 % [facility] Comment: Interpretive Data Percent cell count reference ranges are not reported, since discordance with absolute values may lead to misinterpretation of CBC data. Current Interpretive Data was last revised on 2017. Lymphocyte pct 15.9 % [facility] Comment: Interpretive Data Percent cell count reference ranges are not reported, since discordance with absolute values may lead to misinterpretation of CBC data. Current Interpretive Data was last revised on 2017. Monocyte pct 5.4 % [facility] Comment: Interpretive Data Percent cell count reference ranges are not reported, since discordance with absolute values may lead to misinterpretation of CBC data. Current Interpretive Data was last revised on 2017. Eosinophil pct 3.1 % [facility] Comment: Interpretive Data Percent cell count reference ranges are not reported, since discordance with absolute values may lead to misinterpretation of CBC data. Current Interpretive Data was last revised on 2017. Basophil pct 0.4 % [facility] Comment: Interpretive Data Percent cell count reference ranges are not reported, since discordance with absolute values may lead to misinterpretation of CBC data. Current Interpretive Data was last revised on 2017. Blood specimen (specimen) 04/29/2019 8:32 PM CANAL BOAT OPERATOR 04/29/2019 8:38 PM CANAL BOAT OPERATOR us Elvis Hall MD LAB BLOOD ORDERABLES F inal Result [facility] Department [place] [address] * (ABNORMAL) Hepatic function panel (04/29/2019 8:32 PM CANAL BOAT OPERATOR) Bilirubin, total 0.2 0.1 - 1.2 mg/dL [facility] Bilirubin, direct <0.2 0.1 - 0.3 mg/dL [facility] Protein, pl 6.1(L) 6.5 - 8.5 g/dL [facility] Albumin 3.4(L) 3.5 - 5.0 g/dL [facility] Alk phos 55 40 - 130 Units/L [facility] ALT 13 7 - 45 Units/L [facility] AST 20 10 - 45 Units/L [facility] Blood specimen (specimen) 04/29/2019 8:32 PM CANAL BOAT OPERATOR 04/29/2019 8:39 PM CANAL BOAT OPERATOR Narrative [facility] - 04/29/2019 9:40 PM CANAL BOAT OPERATOR THE COLLECTION LOCATION IS [facility] Phil Morillo MD LAB BLOOD ORDERABLES Final Result Performing Organization Address [facility] [place] [address] * Type and screen (04/29/2019 8:32 PM CANAL BOAT OPERATOR) Krishan, indirect Negative [facility] ABO Rh O Positive [facility] Blood specimen (specimen) 04/29/2019 8:32 PM CANAL BOAT OPERATOR 04/29/2019 8:40 PM CANAL BOAT OPERATOR Narrative [facility] - 04/29/2019 9:37 PM CANAL BOAT OPERATOR Has the patient had Daratumumab (Darzalex) in the past 6 months?->Unknown THE COLLECTION LOCATION IS [facility] [id number] Phil Morillo MD LAB BLOOD BANK TEST ORDERA BLES Final Result Performing Organization Address [facility] [place] [address] * aPTT (04/29/2019 8:32 PM CANAL BOAT OPERATOR) aPTT 29 25 - 37 sec [facility] Comment: Interpretive data Heparin therapeutic range: 60-90 seconds Range based on correlation with therapeutic heparin activity range of 0.3-0.7 units/ml. Current interpretive data was last revised on 2019. Blood specimen (specimen) 04/29/2019 8:32 PM CANAL BOAT OPERATOR 04/29/2019 8:45 PM CANAL BOAT OPERATOR Narrative [facility] - 04/29/2019 9:10 PM CANAL BOAT OPERATOR THE COLLECTION LOCATION IS us Elvis Hall MD LAB BLOOD ORDERABLES F inal Result Performing Organization Address [facility] [place] [address] * (ABNORMAL) Protime-INR (04/29/2019 8:32 PM CANAL BOAT OPERATOR) PT 14.3(H) 8.6 - 13.0 sec [facility] INR 1.3(H) 0.8 - 1.2 [facility] Comment: Interpretive data Oral anticoagulant therapeutic ranges: Venous thromboembolism prophylaxis or treatment: 2.0-3.0 CARDIOLOGY Standard range: 2.0-3.0 High-intensity range: 2.5-3.5 Refer to indication-specific guidelines for appropriate target ranges for prosthetic heart valve replacement. Current interpretive data was last revised on 2019. Blood specimen (specimen) 04/29/2019 8:32 PM CANAL BOAT OPERATOR 04/29/2019 8:45 PM CANAL BOAT OPERATOR Narrative [facility] - 04/29/2019 9:10 PM CANAL BOAT OPERATOR THE COLLECTION LOCATION IS Elvis Hall MD LAB BLOOD ORDERABLES F inal Result [facility] Department [place] [address] * (ABNORMAL) CBC with auto differential (04/29/2019 8:32 PM CANAL BOAT OPERATOR) [facility] WBC 8.2 3.8 - 9.9 K/cumm [facility] Hgb 5.6(C) 11.9 - 15.5 g/dL [facility] Comment:Critical result call ed to and read back by ROCIO CROWLEY RN on 04 29 2019 at 2053 to [facility]. Hct 19.3(L) 35.6 - 45.5 % [facility] Plt 315 150 - 400 K/cumm [facility] MPV 10.3 9.1 - 12.3 fL [facility] RBC 2.07(L) 3.90 - 5.20 M/cumm [facility] MCV 93.2 81.3 - 96.4 fL [facility] MCH 27.1 27.1 - 33.3 pg [facility] MCHC 29.0(L) 32.3 - 35.7 g/dL [facility] RDW CV 19.9(H) 11.1 - 14.9 % [facility] RDW SD 64.6(H) 35.7 - 48.1 fL [facility] NRBC abs 0.00 0.00 - 0.01 K/cumm [facility] Blood specimen (specimen) 04/29/2019 8:32 PM CANAL BOAT OPERATOR 04/29/2019 8:38 PM CANAL BOAT OPERATOR Narrative [facility] - 04/29/2019 8:53 PM CANAL BOAT OPERATOR THE BJ COLLECTION LOCATION IS us Elvis Hall MD LAB BLOOD ORDERABLES F inal Result [facility] Department [place] [address] * ED PERIPHERAL LINE INSERTION (04/29/2019 8:26 PM CANAL BOAT OPERATOR) Narrative Phil Morillo MD - 04/29/2019 8:26 PM CANAL BOAT OPERATOR Angely Hou MD ? 04/29/2019 ??8:27 [...] procedure: ??Tolerated well, no immediate complications us Phil Morillo MD IN CLINIC/BEDSIDE ORDERABL ES Final Result documented in this encounter Visit Diagnoses Diagnosis Gastrointestinal hemorrhage with melena- Primary Gastrointestinal hemorrhage with melena History of DVT (deep vein thrombosis) Hypertension Unspecified essential hypertension Congestive heart failure (CHF) (CMS/HCC) (HCC) Hypothyroidism Unspecified hypothyroidism Acute upper GI bleed Unspecified, hemorrhage of gastrointestinal tract Acute blood loss anemia Acute posthemorrhagic anemia Gastrointestinal hemorrhage with melena documented in this encounter Admitting Diagnoses Diagnosis Gastrointestinal hemorrhage with melena documented in this encounter Administered Medications Inactive Administered Medications - up to 3 most recent administrations Medication Order MAR Action Action Date Dose Rate Site EPINEPHrine syringe (ADRENALIN) 0.1 mg/mL As needed, Starting on Sat04/30/19 at 1455, Intra-Op Given 04/30/2019 2:55 PM CANAL BOAT OPERATOR 0.2 mg GI Tract ferrous sulfate tablet 325 mg 325 mg (65 mg of elemental iron), oral, Daily with breakfast, First dose on Sat05/01/19 at 0800, Indications: Iron Deficiency AnemiaIndications:Iron Deficiency Anemia Given 05/02/2019 8:43 AM CANAL BOAT OPERATOR 325 mg Given 05/01/2019 9:12 AM CANAL BOAT OPERATOR 325 mg morphine injection 4 mg 4 mg, intravenous, Administer over 4 Minutes, Every 4 hours PRN, 1st line for pain, Starting on Sat04/30/19 at 0316 Given 05/02/2019 8:43 AM CANAL BOAT OPERATOR 4 mg Given 05/02/2019 3:15 AM CANAL BOAT OPERATOR 4 mg Given 05/01/2019 9:59 PM CANAL BOAT OPERATOR 4 mg ondansetron (ZOFRAN) injection 4 mg 4 mg, intravenous, Administer over 2 Minutes, Every 4 hours PRN, nausea, vomiting, Starting on Sat04/30/19 at 0316 pantoprazole (PROTONIX) injection 40 mg 40 mg, intravenous, Administer over 2 Minutes, 2 times daily, First dose on Sat04/30/19 at 2100, Indications: GI BleedIndications:GI Bleed Given 05/02/2019 8:43 AM CANAL BOAT OPERATOR 40 mg Given 05/01/2019 9:02 PM CANAL BOAT OPERATOR 40 mg Given 05/01/2019 9:11 AM CANAL BOAT OPERATOR 40 mg ramelteon (ROZEREM) tablet 8 mg 8 mg, oral, Nightly PRN, sleep, Starting on Sat05/01/19 at 0024, Indications: Sleep-Onset InsomniaIndications:Sleep-Onset Insomnia Given 05/01/2019 9:02 PM CANAL BOAT OPERATOR 8 m g Given 05/01/2019 12:41 AM CANAL BOAT OPERATOR 8 mg sodium chloride 0.9% flush 0.5-20 mL 0.5-20 mL, intra-catheter, Every 8 hours scheduled, First dose on Amber 04/30/19 at 1700, Flush volume based on line type and size. Given 05/01/2019 9:02 PM CANAL BOAT OPERATOR 10 mL Given 05/01/2019 4:16 AM CANAL BOAT OPERATOR 10 mL Given 04/30/2019 10:26 PM CANAL BOAT OPERATOR 10 mL sodium chloride 0.9% flush 0.5-20 mL 0.5-20 mL, intra-catheter, Every 8 hours scheduled, First dose on Amber 04/30/19 at 1415, Flush volume based on line type and size. Given 05/01/2019 9:02 PM CANAL BOAT OPERATOR 10 mL Given 05/01/2019 5:43 PM CANAL BOAT OPERATOR 10 mL Given 05/01/2019 1:11 PM CANAL BOAT OPERATOR 10 mL sodium chloride 0.9% flush 0.5-20 mL 0.5-20 mL, intra-catheter, As needed, line care, Starting on Amber 04/30/19 at 1334, Flush volume based on line type and size. Flush before and after each use. Given 05/02/2019 3:15 AM CANAL BOAT OPERATOR 10 mL Given 05/01/2019 10:00 PM CANAL BOAT OPERATOR 10 mL Given 05/01/2019 9:12 AM CANAL BOAT OPERATOR 10 mL sodium chloride 0.9% infusion 30 mL/hr, intravenous, Continuous, Starting on Amber 04/30/19 at 1415 New Bag 04/30/2019 1:47 PM CANAL BOAT OPERATOR 30 mL/hr 30 mL/hr documented in this encounter Discontinued Medications Medication [...] mcg tablet Take 50 mcg by mouth early childhood special educator before breakfast 0 added in this encounter Active and Recently Administered Medications Times are shown in CANAL BOAT OPERATOR. Scheduled Medication Order 04/30/2019 05/01/2019 05/02/2019 ferrous sulfate tablet 325 mg 325 mg (65 mg of elemental iron), oral, Daily with breakfast, First dose on Sat05/01/19 at 0800, Indications: Iron Deficiency Anemia 0912 (Given - Provider: Cecil David Jr., RN) 0843 (Given - Provider: Avinash Hobbs, GEOVANY) pantoprazole (PROTONIX) injection 40 mg 40 mg, intravenous, Administer over 2 Minutes, 2 times daily, First dose on Amber 04/30/19 at 2100, Indications: GI Bleed 2226 (Given - Provider: Rosalia Royal RN) 0911 (Given - Provider: Cecil David Jr., RN)210 (Given - Provider: Seema Lam RN) 0843 (Given - Provider: Avinash Hobbs RN) sodium chloride 0.9% flush 0.5-20 mL 0.5-20 mL, intra-catheter, Every 8 hours scheduled, First dose on Amber 04/30/19 at 1700, Flush volume based on line [...] RN)1743 (Given - Provider: Cecil David Jr., RN)2102 (Given - Provider: Seema Lam, RN) 0600 (Due) sodium chloride 0.9% IVPB 0-250 mL (COMPLETED) 0-250 mL, intravenous, Once, On Sat04/29/19 at 2112, For 1 dose, Prime blood tubing and administer amount needed to clear line (usually 50-100 mL) after transfusion complete. 0045 (New Bag - Provider: Angely Schneider RN)0211 (Stopped - Provider: Gianni Willson, GEOVANY) Continuous Medication Order 04/30/2019 05/01/2019 05/02/2019 sodium [...] at 0316 0332 (Given - Provider: Gianni Willson, GEOVANY - Comment: stop time 0335)0926 (Given - Provider: Ramos Tobin RN)1334 (MAR Hold - Provider: Automatic Transfer Provider - Reason: Patient not available)1617 (MAR Unhold - Provider: Automatic Transfer Provider)1742 (Given - Provider: Cecil David Jr., GEOVANY)2309 (Given - Provider: Rosalia Royal RN) 0415 (Given - Provider: Rosalia Royal RN)0912 (Given - Provider: Cecil David Jr., GEOVANY)1311 (Given - Provider: Cecil David Jr., GEOVANY)1743 (Given - Provider: Cecil David Jr., GEOVANY)2159 (Given - Provider: Seema Lam RN) 0315 (Given - Provider: Seema Lam RN)0843 (Given - Provider: Avinash Hobbs, GEOVANY) ondansetron (ZOFRAN) injection 4 mg 4 mg, intravenous, Administer over 2 Minutes, Every 4 hours PRN, nausea, vomiting, Starting on Amber 04/30/19 at 0316 1334 (MAR Hold - Provider: Automatic Transfer Provider - Reason: Patient not available)1617 (MAR Unhold - Provider: Automatic Transfer Provider) ramelteon (ROZEREM) tablet 8 mg 8 mg, oral, Nightly PRN, sleep, Starting on Sat05/01/19 at 0024, Indications: Sleep-Onset Insomnia 0041 (Given - Provider: Rosalia Royal RN)210 (Given - Provider: Seema Lam RN) sodium chloride 0.9% flush 0.5-20 mL [...] Count Last Ordered Date First Ordered Date ramelteon (ROZEREM) tablet 8 mg 1 0 ferrous sulfate tablet 325 mg 1 04/30/2019 morphine injection 4 mg 1 04/30/2019 ondansetron (ZOFRAN) injection 4 mg 2 04/30 pantoprazole (PROTONIX) injection 40 mg 2 0 04/30/2019 04/29/2019 sodium chloride 0.9% flush 0.5-20 mL 5 04/09 sodium chloride 0.9% infusion 1 04/30/2019 sodium chloride 0.9% IVPB 0-250 mL 2 201904/29/2019 dextrose 5% and sodium chlor jone 0.9% infusion (premix) 1 04/29/2019 morphine injection 2 mg 1 04/29/2019 Lab Orders Without Results Count Last Ordered D ate First Ordered Date HAPTOGLOBIN 1 04/29/2019 POCT LACTATE - DEVICE 1 04/29/2019 Nursing Count Last Ordered Date First Orde red Date WEIGH PATIENT 1 04/30/2019 Consult Count Last Ordered Date First Orde red Date IP CONSULT TO VASCULAR ACCESS TEAM 1 2019 IP CONSULT TO GASTROENTEROLOGY 1 04/30/2019 CORE MEASURES Count Last Ordered Date First Ord ered Date REASON FOR NO VTE PROPHYLAXI S - HOSPITAL ADMISSION - MEDICATIONS 1 04/30/2019 Case Request Count Last Ordered Date First Orde red Date CASE REQUEST GI 1 04/30/2019 ADT Patient Update Count Last Ordered Date Firs t Ordered Date ED IP DECISION TO ADMIT 1 04/29/[address] IN ED OBSERVATION 1 04/29/2019 documented in this encounter Care Teams Biomedical Service Engineer Relationship Specialty Start Date End Date Gerard Sutton MD PCP - General 11/21/18 03/27/20 Unknown, Notinfile 02/18/18 03/27/20 documented as of this encounter
--- OUTSIDE RECORDS SUMMARY | 2024-03-24 18:54 | XMS_ITS | Encounter Summary ---
Author Organization [facility] Address [address] [place] [address] Care Team Providers Care Public Relations Sales Marketing Name Role Phone Haritha Tse SHIP WORKER Primary Care Provider [phone] Encounter Details Date Type Department Care Team (Late st Contact Info) Description 04/18/2020 Telephone [facility] Internal Medicine [address] [place] [address] Haritha Tse, SHIP WORKER [address] [place] [address] Social History Tobacco Use Types [...] Refills Last Filled Start Date End Date fluconazole (DIFLUCAN) 150 mg tablet Take 1 tablet (150 mg total) by mouth as directed Take one tab now. Repeat in 7 days if symptoms persist. 2 tablet 04/18/2020 documented in this encounter Miscellaneous Notes * Telephone Encounter - Haritha Tse NP - 04/18/2020 12:16 PM CST Sent [facility] * Telephone Encounter - Elizabeth Ramirez - 04/18/2020 11:45 AM CST Pt requesting something called in to her pharmacy [facility] [place] [facility] [place] [facility] [place] 04/[facility] hosp f/u [facility] documented in this encounter Plan of Treatment Not on file documented as of this encounter Visit Diagnoses Not on filedocumented in this encounter Care Teams Public Relations Sales Marketing Relationship Specialty Start Date End Date Haritha Tse NP PCP - General Internal Medicine 03/28/20 10/29/22 documented as of this encounter
--- OUTSIDE RECORDS SUMMARY | 2024-03-24 18:54 | XMS_ITS | Encounter Summary ---
Author Organization [facility] Address [address] [place] [address] Care Team Providers Care Underwear Finisher Name Role Phone Haritha Tse NP Primary Care Provider Encounter Details Date Type Department Care Team (Late st Contact Info) Description 03/29/2023 Orders Only [facility] Family Medicine [address] [place] [address] Pikny Castro PA [address] [place] [address] chronic right knee pain Social History Tobacco Use Types Packs/Day Years [...] Refills Last Filled Start Date End Date oxyCODONE-acetamin ophen (PERCOCET) 5-325 mg per tabletIndications: Pain Take 0.5 tablets by mouth every 6 (six) hours as needed for pain for up to 7 days Take 1/2 tab po Q6 hours prn pain. 14 tablet 03/29/2023 documented in this encounter Plan of Treatment Not on file documented as of this encounter Visit Diagnoses Diagnosis chronic right knee pain documented in this encounter Discontinued Medications Medication Sig Discontinue Reason Start Date End Da te oxyCODONE-acetaminophen (PERCOCET) 5-325 mg per tabletIndications:Pain Take 1 tablet by mouth 2 (two) times a day as needed for pain Reorder 03/04/2023 03/29/2023 documented as of this encounter Care Teams Underwear Finisher Relationship Specialty Start Date End Date Haritha Tse NP [address] [address] PCP - General Internal Medicine 10/30/22 documented as of this encounter
--- OUTSIDE RECORDS SUMMARY | 2024-03-24 18:54 | XMS_ITS | Encounter Summary ---
Author Organization [facility] Healthcare Address [address] [place] [address] Care Team Providers Care Director Of Medical Review Name Role Phone Haritha Tse NP Primary Care Provider [phone] Encounter Details Date Type Department Care Team (Late st Contact Info) Description 03/15/2023 10:30 AM AUTO POLISHER Telemedicine [facility] Internal Medicine at [place] [address] [place] [address] Haritha Tse NP [address] [place] [address] Encounter for Medicare annual wellness exam (Primary Dx); Morbid obesity with BMI of 45.0-49.9, adult (HCC); Essential hypertension; UTI symptoms; Primary insomnia; Chronic deep vein thrombosis (DVT) of other vein of right lower extremity (HCC); Chronic congestive heart failure, unspecified heart failure type (HCC); Chronic pain syndrome Social History Tobacco Use Types Packs/Day Years [...] - Inhaled Oxygen Concentration - - Weight 136.5 kg (301 lb) 03/15/2023 10:37 AM AUTO POLISHER Height 170.2 cm (5' 7 ) 03/15/2023 10:37 AM AUTO POLISHER Body Mass Index 47.14 03/15/2023 10:37 AM AUTO POLISHER documented in this encounter Patient Instructions * Patient Instructions* Haritha Tse NP - 03/15/2023 10:30 AM AUTO POLISHER Routine annual Medicare wellness examination and [employer] PAF completed today. Increase blood pressure medicine to 10 mg of Norvasc daily. Contact the office in 2 weeks with a blood pressure reading. Follow-up in 3 months or sooner as needed POLISHER documented in this encounter Ordered Prescriptions Prescription Sig Dispense Quantity Refills Last Filled Start Date End Date amLODIPine (NORVASC) 10 mg tabletIndications: Essential hypertension Take 0.5 tablets (5 mg total) by mouth daily 90 tablet 03/15/2023 ciprofloxacin (CIPRO) 500 mg tabletIndications: Urinary Tract/Genitourinar y Infection Take 1 tablet (500 mg total) by mouth 2 (two) times a day for 3 days 6 tablet 03/15/2023 documented in this encounter Progress Notes * Haritha Tse NP - 03/15/2023 10:30 AM CST Images from the original note were not included. Patient's Name: Tiarra Addison is a 52 y.o. female. Visit Date: 03/15/2023 Medicare Health Risk Assessment Basic Information In general, would you say your health is: Good Do you have an advance directive, such as a living will or durable power of estate attorney?: (!) No Would you like information regarding Advanced Directive (Living Will) and/or Durable Power of Leather Goods Assembler?: No Do you have to strain or struggle to hear/understand conversations?: No Have you experienced any of the following problems currently or recently? Eating: No Grooming: No Bathing: No Walking: (!) Yes Using the toilet: No Memory problems: No Difficulty speaking: No Dressing: No Balance: (!) Yes Pain: (!) Yes Sexual Health: No Fatigue: No Have you experienced any of the following problems currently or recently? Laundry and/or housekeeping: No Handling money: No Shopping: No Using the Phone: No Food preparation: No Transportation: No Taking and/or getting your own medications: No Do you use prescription drugs that are not prescribed for you?: No Do you struggle with any of the following: depression, stress, anger, loneliness or social isolation?: No HPI: 52-year-old female via tele doc for [employer] Medicare PAF and Medicare wellness examination. She is considering weight loss surgery at this time to help with chronic knee pain. She does take Xarelto for history of DVT. Blood pressure elevated today on home reading at 158/84. Will increase Norvasc to 10 mg daily. She is been doing weight watchers. ROS: Review of Systems Constitutional: Negative for activity change, chills and fatigue. HENT: Negative for congestion, ear pain, nosebleeds, rhinorrhea and sinus pressure. Respiratory: Negative for cough and shortness of breath. Cardiovascular: Negative for chest pain and palpitations. Elevated blood pressure at 158/84 on 5 mg of Norvasc. Will increase to 10 mg daily Gastrointestinal: Negative for abdominal pain. Endocrine: Negative for cold intolerance. Genitourinary: Positive for dysuria. Negative for difficulty urinating and hematuria. Musculoskeletal: Positive for arthralgias and back pain. Negative for myalgias. Neurological: Negative for dizziness, weakness and headaches. Psychiatric/Behavioral: Negative for agitation, confusion and sleep disturbance. Past Medical and Surgical History: Past Medical History: Diagnosis Date Anemia Cellulitis CHF (congestive heart failure) (CMS/HCC) (HCC) Clotting disorder (CMS/HCC) (HCC) DVT (deep venous thrombosis) (CMS/HCC) (HCC) DVT (deep venous thrombosis) (CMS/HCC) (HCC) Gastric reflux Hypertension Lymph edema Peptic ulceration Poor circulation Primary osteoarthritis of knees, bilateral Rheumatoid arthritis (HCC) Past Surgical History: Procedure Laterality Date CAROTID STENT SECTION GASTRIC BYPASS Family History: Family History Problem Relation Age of Onset Diabetes Mother Hypertension Mother Diabetes Father Hypertension Father Social History: Social History Tobacco Use Smoking status: Never Smokeless tobacco: Never Substance and Sexual Activity Drug use: Yes Types: Hydrocodone Sexual activity: Defer Alcohol Use: Not At Risk (06/23/2020) AUDIT-C Frequency of Alcohol Consumption: Never Average Number of Drinks: 1 or 2 Frequency of Binge Drinking: Never Diet: Regular Physical Activities: Sedentary Allergies: No Known Allergies Current Medications: Outpatient Encounter Medications as of 03/15/2023 Medication Sig Dispense Refill ferrous sulfate 325 mg (65 mg of elemental iron) tablet Take 1 tablet (325 mg total) by mouth dailywith breakfast furosemide (LASIX) 40 mg tablet Take 1 [...] total) by mouth daily 90 tablet 2 zolpidem (AMBIEN) 10 mg tablet Take 1 tablet (10 mg total) by mouth nightly as needed for sleep 90 tablet 0 amLODIPine (NORVASC) 10 mg tablet Take 0.5 tablets (5 mg total) by mouth daily 90 tablet 0 [] ciprofloxacin (CIPRO) 500 mg tablet Take 1 tablet (500 mg total) by mouth 2 (two) times aday for 3 days 6 tablet 0 lisinopriL (PRINIVIL,ZESTRIL) 10 mg tablet Take 1 tablet (10 mg total) by mouth daily (Patient not taking: Reported on 10/30/2022) 90 tablet 2 [DISCONTINUED] amLODIPine (NORVASC) 5 mg tablet Take 1 tablet (5 mg total) by mouth daily (Patient not taking: Reported on 10/30/2022) 90 tablet 2 [DISCONTINUED] methylPREDNISolone (MEDROL DOSEPACK) 4 mg Dosepack Take as directed on package. (Patient not taking: Reported on 03/15/2023) 21 tablet 0 [DISCONTINUED] sucralfate (CARAFATE) suspension 1 gram/10 mL SHAKE LIQUID AND TAKE 1 ML BY MOUTH BEFORE MEALS AND AT BEDTIME (Patient not taking: Reported on 03/15/2023) No facility-administered encounter medications on file as of 03/15/2023. Depression Screen: PHQ Screening Over the last 2 weeks, how often have you been bothered by any of the following problems? Little Interest or Pleasure in Doing Things: Not at all Feeling Down, Depressed, or Hopeless: Several days PHQ-2 Total Score (If total score is 3 or more points, staff should administer the PHQ-9): 1 Over the past 2 weeks, how often have you been bothered by any of the following problems? Little Interest or Pleasure in Doing Things: Not at all Feeling Down, Depressed, or Hopeless: Several days PHQ-2 Total Score (If total score is 3 or more points, staff should administer the PHQ-9): 1 Audio/Visual Screen: Not indicated Is the patient having any problems with hearing and/or vision? No Vitals: Vitals: 03/15/23 1037 Weight: (!) 136.5 kg (301 lb) Height: 170.2 cm (5' 7 ) Exam: Physical Exam STEADI Fall Risk Screening: In the past year, patient experienced: One or more falls in the last year: No Has trouble stepping up onto a curb: No Advised to use a cane or walker to get around safely: No Often has to menjivar to the toilet: No Feels unsteady when walking: No Has lost some feeling in feet: No Steadies self on furniture while walking at home: No Takes medicine that makes him/her feel lightheaded or more tired than usual: No Worried about falling: No Takes medicine to sleep or improve mood: No Needs to push with hands when rising from a chair: No Often feels sad or depressed: No STEADI Score Total: 0 Up and Go Test: Patient was unsteady or time test was longer than 30 seconds? Yes Care Team Providers: Patient Care Team: Haritha Tse, PRODUCT DIRECTOR as PCP - General (Internal Medicine) Primary Pharmacy/DME suppliers: [id number] - [place], [place] - [address] [facility] [address] [facility] [id number] Detection of Cognitive Impairment: Detect cognitive impairment based on direct observation, discussion with patient or family, or review of medical records? No Counseling and Referral of Preventative Services: Other route measures as deemed appropriate: LIST OF RISK FACTORS AND CONDITIONS FOR WHICH PRIMARY, SECONDARY, TERTIARY INTERVENTIONS ARE RECOMMENDED OR ARE UNDERWAY WITH LIST OF TREATMENT OPTIONS AND THEIR RISKS AND BENEFITS. Please see patient instructions section for recommendations for appropriate screening and monitoring guidelines. Assessment and Plan: Audio Screen ordered? No Diagnoses and all orders for this visit: Encounter for Medicare annual wellness exam (Primary) Comments: Routine annual Medicare wellness examination and [employer] PAF completed today Morbid obesity with BMI of 45.0-49.9, adult (HCC) Assessment & Plan: Discussed the patient's BMI. The BMI is above average. BMI management plan is completed. BMI Follow-up includes: nutrition counseling, exercise counseling and education provided. Essential hypertension Comments: Increase amlodipine to 10 mg daily for elevated blood pressure of 158/84 Assessment & Plan: This is a significant, separately identifiable problem that was evaluated and managed on the same day as the wellness exam Orders: - amLODIPine (NORVASC) 10 mg tablet; Take 0.5 tablets (5 mg total) by mouth daily UTI symptoms Comments: Start Cipro 500 mg twice daily as directed for 3 days. Notify the office without improvement of symptoms Assessment & Plan: This is a significant, separately identifiable problem that was evaluated and managed on the same day as the wellness exam Orders: - ciprofloxacin (CIPRO) 500 mg tablet; Take 1 tablet (500 mg total) by mouth 2 (two) times a day for 3 days Primary insomnia Comments: Continue Ambien 10 mg nightly Chronic deep vein thrombosis (DVT) of other vein of right lower extremity (HCC) Comments: Continue Xarelto 20 mg daily as directed Chronic congestive heart failure, unspecified heart failure type (HCC) Comments: Continue Lasix as directed. Follow-up with Cardiology as scheduled Chronic pain syndrome Assessment & Plan: Patient has chronic pain and is on a chronic opioid. Discussed importance of taking medication as prescribed and pain is currently controlled with no abuse. Continue same dose Do not share medications. Followup for urine drug testing as instructed. Keep followup appointments as instructed. Offered Pain Management. This was a telemedicine visit with Tiarra Moreno Azael alone which took place via real-time video connection. During the visit, I was located in the office and the patient was located at work in the [facility]. The patient visit started at 0135 and ended at 1345. My total encounter time on 03/15/2023 was 10 minutes which was spent in the activities documented in the note. This includes time spent prior to the visit and after the visit in direct care of the patient. This time does not include time spent in any separately reportable services.. Haritha Tse NP POLISHER documented in this encounter Miscellaneous Notes * Assessment & Plan Note - Haritha Tse NP - 03/20/2023 9:07 AM AUTO POLISHER Associated Problem(s): UTI symptoms This is a significant, separately identifiable problem that was evaluated and managed on the same day as the wellness exam POLISHER * Assessment & Plan Note - Haritha Tse NP - 03/20/2023 9:07 AM AUTO POLISHER Associated Problem(s): Essential hypertension This is a significant, separately identifiable problem that was evaluated and managed on the same day as the wellness exam POLISHER * Assessment & Plan Note - Haritha Tse NP - 03/20/2023 9:04 AM AUTO POLISHER Associated Problem(s): Chronic pain syndrome Patient has chronic pain and is on a chronic opioid. Discussed importance of taking medication as prescribed and pain is currently controlled with no abuse. Continue same dose Do not share medications. Followup for urine drug testing as instructed. Keep followup appointments as instructed. Offered Pain Management. POLISHER * Assessment & Plan Note - Kristin Singh MA - 03/15/2023 10:42 AM AUTO POLISHER Associated Problem(s): Morbid obesity with BMI of 45.0-49.9, adult (HCC) Discussed the patient's BMI. The BMI is above average. BMI management plan is completed. BMI Follow-up includes: nutrition counseling, exercise counseling and education provided. POLISHER documented in this encounter Plan of Treatment Not on file documented as of this encounter Visit Diagnoses Diagnosis Encounter for Medicare annual wellness exam- Primary Morbid obesity with BMI of 45.0-49.9, adult (HCC) Essential hypertension Unspecified essential hypertension UTI symptoms Primary insomnia Persistent disorder of initiating or maintaining sleep Chronic deep vein thrombosis (DVT) of other vein of right lower extremity (HCC) Chronic congestive heart failure, unspecified heart failure type (HCC) Chronic pain syndrome documented in this encounter Discontinued Medications Medication Sig Discontinue Reason Start Date End Da te amLODIPine (NORVASC) 5 mg tabletIndications:Essent ial hypertension Take 1 tablet (5 mg total) by mouth daily 03/28/2020 03/15/2023 sucralfate (CARAFATE) suspension 1 gram/10 mL SHAKE LIQUID AND TAKE 1 ML BY MOUTH BEFORE MEALS AND AT BEDTIME Other 11/10/2020 03/15/2023 methylPREDNISolone (MEDROL DOSEPACK) 4 mg DosepackIndications:Pain in right leg Take as directed on package. Other 10/30/2022 03/15/2023 documented as of this encounter Care Teams Director Of Medical Review Relationship Specialty Start Date End Date Haritha Tse NP [address] [place] [address] PCP - General Internal Medicine 10/30/22 documented as of this encounter
--- OUTSIDE RECORDS SUMMARY | 2024-03-24 18:54 | XMS_ITS | Encounter Summary ---
Author Organization [facility] Address [address] [place] [address] Care Team Providers Care Surgical Processor Name Role Phone Haritha Tse NP Primary Care Provider [phone] Phylicia De La Garza Unavailable [phone] Encounter Details Date Type Department Care Team (Late st Contact Info) Description 08/16/2020 Orders Only [facility] [address] [place] [address] Scanning, Provider Social History Tobacco Use Types Packs/Day Years [...] Date/Time Associated Diagnosis Comments SCAN - RADIOLOGY/IMAGING 08/16/2020 documented in this encounter Results * SCAN - RADIOLOGY/IMAGING (08/16/2020) Anatomical Region Laterality Modality Other us Provider Scanning Final Result documented in this encounter Visit Diagnoses Not on filedocumented in this encounter Care Teams Surgical Processor Relationship Specialty Start Date End Date Haritha Tse NP PCP - General Internal Medicine 03/28/20 10/29/22 Phylicia De La Garza [address] [place] [address] [address] [place] [id number] [employer]CO Care Hydramatic Specialist 11/16/20 11/17/20 documented as of this encounter
--- OUTSIDE RECORDS SUMMARY | 2024-03-24 18:54 | XMS_ITS | Encounter Summary ---
Author Organization [facility] Healthcare Address [address] [place] [address] Care Team Providers Care Consumer Educator Name Role Phone Haritha Tse NP Primary Care Provider [phone] Encounter Details Date Type Department Care Team (Late st Contact Info) Description 04/03/2023 Telephone [facility] Family Medicine [address] [place] [address] Haritha Tse NP [address] [place] [address] Social History Tobacco Use Types [...] Telephone Encounter - Nicole Ferreira LPN - 04/03/2023 9:12 AM SOCK LINING STITCHER Patient called and stated that pain clinic will be calling office to discuss refill on pain medication with Haritha Tse NP. PLEASE transfer through to office and ask for [place]. LINING STITCHER documented in this encounter Plan of Treatment Not on file documented as of this encounter Visit Diagnoses Not on filedocumented in this encounter Care Teams Consumer Educator Relationship Specialty Start Date End Date Haritha Tse NP [address] [facility] [address] [address] [address] [place] [address] PCP - General Internal Medicine 10/30/22 documented as of this encounter
--- OUTSIDE RECORDS SUMMARY | 2024-03-24 18:54 | XMS_ITS | Encounter Summary ---
Author Organization [facility] Address [address] [place] [address] Care Team Providers Care House Worker General Name Role Phone Haritha Tse NP Primary Care Provider [phone] Reason for Visit * Reason Comments Hospital Follow Up [facility] d/ c 04/08/2020 cellulitis to Rt leg labs Encounter Details Date Type Department Care Team (Late st Contact Info) Description 04/19/2020 11:00 AM PARTS ROOM ASSISTANT Office Visit [facility] Internal Medicine [address] [place] [phone] Haritha Tse, GARRETT [address] [place] [address] Cellulitis of right lower extremity (Primary Dx) Social History Tobacco Use Types [...] Sign Reading Time Taken Comments Blood Pressure 124/78 04/19/2020 11:07 AM PARTS ROOM ASSISTANT Pulse 82 04/19/2020 11:07 AM PARTS ROOM ASSISTANT Temperature 36.2 ??C (97.1 ??F) 04/19/2020 1 1:07 AM PARTS ROOM ASSISTANT Respiratory Rate 18 04/19/2020 11:0 7 AM PARTS ROOM ASSISTANT Oxygen Saturation 99% 04/19/2020 11: 07 AM PARTS ROOM ASSISTANT Inhaled Oxygen Concentration - - Weight 150.2 kg (331 lb 3.2 oz) 021 11:07 AM PARTS ROOM ASSISTANT Height 170.2 cm (5' 7 ) 04/19/2020 11:0 7 AM PARTS ROOM ASSISTANT Body Mass Index 51.87 04/19/2020 11:07 AM PARTS ROOM ASSISTANT documented in this encounter Patient Instructions * Patient Instructions* Haritha Tse NP - 04/19/2020 11:00 AM PARTS ROOM ASSISTANT continue to take abx as instructed. notify the office should your symptoms not improve S ROOM ASSISTANT documented in this encounter Progress Notes * Haritha Tse NP - 04/19/2020 11:00 AM CST Subjective/Objective Patient ID: Tiarra Addison is a 49 y.o. female. Visit Date: 04/19/2020 Chief Complaint Hospital Follow Up ([facility] d/c 04/08/2020 cellulitis to Rt leg) and labs HPI 49-year-old female in for hospital follow-up of right lower extremity cellulitis. Patient was admitted on the 05 of April through the [address] [facility]. Medication reconciliation completed. Patient states she still has 1 week left of antibiotics. She is working with vascular d ue to her right lower extremity lymphedema Review of Systems Constitutional: Negative for activity [...] back pain and myalgias. Skin: Positive for color change (cellu.litis right lower extremity ). Neurological: Negative for dizziness, weakness and headaches. Psychiatric/Behavioral: Negative for agitation, confusion and sleep disturbance. Physical Exam Constitutional: Appearance: Normal appearance. She is well-developed. She is obese. HENT: Head: Normocephalic and atraumatic. Right Ear: Tympanic membrane normal. Left Ear: Tympanic membrane normal. Eyes: Pupils: Pupils are equal, round, and reactive to light. Neck: Musculoskeletal: Normal range of motion and neck supple. Cardiovascular: Rate and Rhythm: Normal rate and regular rhythm. Heart sounds: Normal heart sounds. Pulmonary: Effort: Pulmonary effort is normal. Breath sounds: Normal breath sounds. Abdominal: General: Bowel sounds are normal. There is no distension. Palpations: Abdomen is soft. Musculoskeletal: Normal range of motion. General: Tenderness (right lower extremity tenderness and erythema. mildly warm) present. Right lower leg: Edema present. Skin: General: Skin is warm and dry. Capillary Refill: Capillary refill takes less than 2 seconds. Findings: No rash. Neurological: Mental Status: She is alert and oriented to person, place, and time. Psychiatric: Behavior: Behavior normal. Thought Content: Thought content normal. Assessment/Plan Diagnoses and all orders for this visit: Cellulitis of right lower extremity (L03.115) (Primary) Comments: continue to take abx as instructed. notify the office should your symptoms not improve S ROOM ASSISTANT documented in this encounter Plan of Treatment Not on file documented as of this encounter Visit Diagnoses Diagnosis Cellulitis of right lower extremity- Primary documented in this encounter Care Teams House Worker General Relationship Specialty Start Date End Date Haritha Tse NP PCP - General Internal Medicine 03/28/20 10/29/22 documented as of this encounter
--- OUTSIDE RECORDS SUMMARY | 2024-03-24 18:54 | XMS_ITS | Encounter Summary ---
Author Organization [facility] Address [address] [address] Care Team Providers Care Glazier Apprentice Name Role Phone Haritha Tse NP Primary Care Provider [phone] Reason for Referral * Consultation (Routine) - Closed Specialty Diagnoses / Procedures Referred By Wilfred kirkland Referred To Contact Vascular Surgery Diagnoses Lymphedema of right lower extremity Haritha Tse NP Phone: tel: fax: Karla Suresh MD [facility] [address] [address] Phone: tel: fax: Referral ID Status Reason Start Date Expiration Date V isits Requested Visits Authorized [id number] Closed Specialty Services Required 04/18/2020 07/17/2020 3 3 Question Answer Please select the performing region: [facility] [[id number]] Please select the performing department[facility] [[id number][facility] # of visits: 1 ARD/STEWARDESS BATH Reason for Visit * Reason Comments New Patient PCP was seeing Seema Carter Lymphedema Encounter Details Date Type Department Care Team (Late st Contact Info) Description 03/28/2020 1:30 PM STEWARD/STEWARDESS BATH Office Visit [facility] Internal Medicine [address] [facility] [address] [place] [address] Haritha Tse NP [address] [facility] [address] [place] [address] Lymphedema of right lower extremity (Primary Dx); BMI 50.0-59.9, adult (CMS/HCC); Acquired hypothyroidism; Essential hypertension; Encounter for screening mammogram for malignant neoplasm of breast; Encounter for vitamin deficiency screening; Screening for diabetes mellitus (DM); Primary insomnia; History of DVT (deep vein thrombosis); Pain in right leg; Screening for cholesterol level Social History Tobacco Use Types Packs/Day Years Used Date Smoking Tobacco: Never Smokeless Tobacco: Never Alcohol Use Standard Drinks/Week Comments Yes 0 (1 standard drink = 0.6 oz pur e alcohol) socially PHQ-2 Answer Date Recorded PHQ-2 Score 0 03/28/2020 Comments No Sex and Gender Information Value Date Recorded Sex Assigned at Not on file Legal Sex Female 7:50 PM CDT Gender Identity Female 11/23/2020 10:23 AM CDT Sexual Orientation Straight 11/23/2020 10 :23 AM CDT documented as of this encounter Last Filed Vital Signs Vital Sign Reading Time Taken Comments Blood Pressure 144/90 03/28/2020 1:22 PM STEWARD/STEWARDESS BATH Pulse 86 03/28/2020 1:22 PM STEWARD/STEWARDESS BATH Temperature 36.3 ??C (97.3 ??F) 03/28/2020 1:22 PM CS T Respiratory Rate 18 03/28/2020 1:22 PM STEWARD/STEWARDESS BATH Oxygen Saturation 97% 03/28/2020 1:22 PM STEWARD/STEWARDESS BATH Inhaled Oxygen Concentration - - Weight 147.9 kg (326 lb) 03/28/2020 1:22 PM STEWARD/STEWARDESS BATH Height 170.2 cm (5' 7 ) 03/28/2020 1:22 PM STEWARD/STEWARDESS BATH Body Mass Index 51.06 03/28/2020 1:22 PM STEWARD/STEWARDESS BATH documented in this encounter Patient Instructions * Patient Instructions* Haritha Tse NP - 03/28/2020 1:30 PM STEWARD/STEWARDESS BATH Medications as directed. Follow-up in 1 months with lab work completed. Notify the office if any questions or concerns. Restart taking her blood pressure medication daily. Follow-up as instructed ARD/STEWARDESS BATH documented in this encounter Ordered Prescriptions Prescription Sig Dispense Quantity Refills Last Filled Start Date End Date HYDROcodone-acetam inophen (NORCO) 7.5-325 mg per tabletIndications: Pain in right leg Take 1 tablet by mouth every 8 (eight) hours as needed for pain Take 1 tablet by mouth every 6 (six) hours as needed for Pain. 90 tablet 03/28/2020 0 amLODIPine (NORVASC) 5 mg tabletIndications: Essential hypertension Take 1 tablet (5 mg total) by mouth daily 90 tablet 2 03/28/2020 3 furosemide (LASIX) 40 mg tabletIndications: Lymphedema of right lower extremity,Essentia l hypertension Take 1 tablet (40 mg total) by mouth daily 90 tablet 2 03/28/2020 4 lisinopriL (PRINIVIL,ZESTRIL) 10 mg tabletIndications: Essential hypertension Take 1 tablet (10 mg total) by mouth daily 90 tablet 2 03/28/2020 4 metoprolol XL (TOPROL-XL) 25 mg extended release tabletIndications: Essential hypertension Take 1 tablet (25 mg total) by mouth daily 90 tablet 2 03/28/2020 4 potassium chloride ER (potassium chloride ER) 10 mEq CR tabletIndications: Essential hypertension Take 1 tablet/capsul e (10 mEq total) by mouth daily 90 tablet/capsule 2 03/28/2020 1 rivaroxaban (XARELTO) 20 mg tabletIndications: History of DVT (deep vein thrombosis) Take 1 tablet (20 mg total) by mouth daily 90 tablet 2 03/28/2020 4 zolpidem (AMBIEN) 10 mg tabletIndications: Primary insomnia Take 1 tablet (10 mg total) by mouth nightly 30 tablet 1 03/28/2020 1 cephalexin (KEFLEX) 500 mg capsuleIndications :Lymphedema of right lower extremity Take 1 capsule (500 mg total) by mouth 2 (two) times a day for 7 days 14 capsule 03/28/2020 0 documented in this encounter Progress Notes * Haritha Tse, FINANCIAL ENGINEER - 03/28/2020 1:30 PM CST Subjective/Objective Patient ID: Tiarra Addison is a 49 y.o. female. Visit Date: 03/28/2020 Chief Complaint New Patient (PCP was seeing Seema Prather) and Lymphedema HPI 49-year-old female presents to establish care as a new patient. Patient does have complaints of right lower extremity lymphedema. She states that she has been out of her medications for approximately2 months now. She would like to have an ultrasound done of her right lower extremity as it is increased in size and pain. She is up-to-date on her Pap as she had an ablation done in July by her pipe jeeper.Patient does need medication refills today. She is to follow-up in 1 month with lab work completed Review of Systems Constitutional: Negative for activity change, chills and fatigue. HENT: Negative for congestion, ear pain, nosebleeds, rhinorrhea and sinus pressure. Respiratory: Negative for cough and shortness of breath. Cardiovascular: Positive for leg swelling (Lymphedema right lower extremity). Negative for chest pain and palpitations. Gastrointestinal: Negative for abdominal pain. Endocrine: Negative for cold intolerance. Genitourinary: Negative for difficulty urinating and hematuria. Musculoskeletal: Positive for myalgias. Negative for back pain. Neurological: Negative for dizziness, weakness and headaches. [...] soft. Musculoskeletal: Normal range of motion. General: No tenderness. Right lower leg: Edema present. Skin: General: Skin is warm and dry. Capillary Refill: Capillary refill takes less than 2 seconds. Findings: No rash. Neurological: Mental Status: She is alert and oriented to person, place, and time. Psychiatric: Behavior: Behavior normal. Thought Content: Thought content normal. Assessment/Plan Diagnoses and all orders for this visit: Lymphedema of right lower extremity (I89.0) (Primary) Comments: Use referral to see vascular. Keep leg elevated when able. Antibiotics as instructed Orders: - Ambulatory referral to Vascular Surgery; Future - cephalexin (KEFLEX) 500 mg capsule; Take 1 capsule (500 mg total) by mouth 2 (two) times a day for 7 days - furosemide (LASIX) 40 mg tablet; Take 1 tablet (40 mg total) by mouth daily BMI 50.0-59.9, adult (CMS/HCC) (Z68.43) Comments: Diet and exercise as tolerated Acquired hypothyroidism (E03.9) Comments: Have lab work completed prior to next visit Orders: - TSH; Future Essential hypertension (I10) Comments: Restart medications as directed. Have lab work completed prior to next visit Orders: - potassium chloride ER (potassium chloride ER) 10 mEq CR tablet; Take 1 tablet/capsule (10 mEq total) by mouth daily - metoprolol XL (TOPROL-XL) 25 mg extended release tablet; Take 1 tablet (25 mg total) by mouth daily - lisinopriL (PRINIVIL,ZESTRIL) 10 mg tablet; Take 1 tablet (10 mg total) by mouth daily - furosemide (LASIX) 40 mg tablet; Take 1 tablet (40 mg total) by mouth daily - amLODIPine (NORVASC) 5 mg tablet; Take 1 tablet (5 mg total) by mouth daily Encounter for screening mammogram for malignant neoplasm of breast (Z12.31) Comments: Schedule and complete mammogram Orders: - Screening Mammogram 2D Bilateral; Future Encounter for vitamin deficiency screening (Z13.21) Comments: Have lab work completed prior to next visit Orders: - Vitamin D 25 hydroxy; Future Screening for diabetes mellitus (DM) (Z13.1) Comments: Have lab work completed prior to next visit Orders: - Hemoglobin A1c; Future Primary insomnia (F51.01) Comments: Increase Ambien to 10 mg daily as needed for sleep Orders: - zolpidem (AMBIEN) 10 mg tablet; Take 1 tablet (10 mg total) by mouth nightly History of DVT (deep vein thrombosis) (Z86.718) Comments: Have ultrasound completed on right lower extremity due to increased pain in size. Restart your blood thinner as you have not been taking it for 2 Orders: - rivaroxaban (XARELTO) 20 mg tablet; Take 1 tablet (20 mg total) by mouth daily Pain in right leg (M79.604) Comments: Have ultrasound completed on right lower extremity. Restart blood thinner as you have a history of DVT and had been not taking medication for approximately 2 m Orders: - US Vein Duplex Lower Extremity Right Limited; Future - HYDROcodone-acetaminophen (NORCO) 7.5-325 mg per tablet; Take 1 tablet by mouth every 8 (eight) hours as needed for pain Take 1 tablet by mouth every 6 (six) hours as needed for Pain. Screening for cholesterol level (Z13.220) Comments: Have lab work completed prior to next visit Orders: - Lipid panel; Future ARD/STEWARDESS BATH documented in this encounter Plan of Treatment Scheduled Referrals Name Type Priority Associated Diagnoses Order Schedule Ambulatory referral to Vascular Surgery Outpatient Referral Routine Lymphedema of right lower extremity Expected: 04/11/2020 (Approximate), Expires: 03/28/2021 documented as of this encounter Procedures Procedure Name Priority Date/Time Associated Diagnosis Comments VITAMIN D 25 HYDROXY Routine 04/18/2020 12:54 PM STEWARD/STEWARDESS BATH Encounter for vitamin deficiency screening TSH Routine 04/18/2020 12:54 PM STEWARD/STEWARDESS BATH Acquired hypothyroidism HEMOGLOBIN A1C Routine 04/18/2020 12:54 PM STEWARD/STEWARDESS BATH Screening for diabetes mellitus (DM) LIPID PANEL Routine 04/18/2020 12:54 PM STEWARD/STEWARDESS BATH Screening for cholesterol level COLONOSCOPY Routine 07/19/2018 documented in this encounter Results * Hemoglobin A1c (04/18/2020 12:54 PM STEWARD/STEWARDESS BATH) Hemoglobin A1c % 4.9 4.0 - 5.6 % [facility] Comment: ADA 2016 GUIDELINES: ??Initial Diagnostic Criteria ? HbA1c Result: ?Interpretation: ?<5.7% ? Normal ?5.7-6.4% ?At risk for diabetes mellitus ?>=6.5% ?Consistent with diabetes mellitus ??Diabetes monitoring ? Target value (ADA Recommended) ?? <7% Blood specimen (specimen) 04/18/2020 12:54 PM STEWARD/STEWARDESS BATH 04/18/2020 1:16 PM STEWARD/STEWARDESS BATH Narrative Resulting Agency Comment CLI Haritha Tse FINANCIAL ENGINEER LAB BLOOD ORDERABLES Final Re sult Performing Organization Address [facility] de Phone Number [phone] [place] [address], [facility] [phone] * (ABNORMAL) Vitamin D 25 hydroxy (04/18/2020 12:54 PM STEWARD/STEWARDESS BATH) 25-OH Vitamin D Total 7(L) 30 - 80 ng/mL [facility] Blood specimen (specimen) 04/18/2020 12:54 PM STEWARD/STEWARDESS BATH 04/18/2020 1:16 PM STEWARD/STEWARDESS BATH Narrative Resulting Agency Comment CLI Haritha Tse FINANCIAL ENGINEER LAB BLOOD ORDERABLES Final Re sult Performing Organization Address [facility] de Phone Number [phone] [place] [address], [facility] [phone] * Lipid panel (04/18/2020 12:54 PM STEWARD/STEWARDESS BATH) Triglycerides 93 0 - 149 mg/dL [facility] Comment: National Lipid Association/NCEP Guidelines: ?? Normal ?< 150 mg/dL ?? Borderline high ?? 150-199 mg/dL ?? High ?200-499 mg/dL ?? Very High ? >=500 mg/dL Cholesterol 103 0 - 199 mg/dL [facility] Comment: National Lipid Association/NCEP Guidelines: Desirable ? < 200 mg/dL Borderline high: ??200-239 mg/dL High Risk: ?>=240 mg/dL HDL Cholesterol 37 mg/dL [facility] Comment: Reference Ranges: ? Males: >=40 mg/dL ? Females: >=50 mg/dL LDL Cholesterol, Calc 47 0 - 129 mg/dL [facility] Comment: National Lipid Association/NCEP Guidelines: ??Optimal ? < 100 mg/dL ??Near Optimal ?100-129 mg/dL ??Borderline high 130-159 mg/dL ??High ?>=160 mg/dL Cholesterol/HDL Ratio 2.8 [facility] Comment: Optimal ??< 3.5:1 High ? > 5:1 Blood specimen (specimen) 04/18/2020 12:54 PM STEWARD/STEWARDESS BATH 04/18/2020 1:16 PM STEWARD/STEWARDESS BATH Narrative Resulting Agency Comment CLI Haritha Tse FINANCIAL ENGINEER LAB BLOOD ORDERABLES Final Re sult Performing Organization Address City/[facility] Co de Phone Number [address] [phone] * TSH (04/18/2020 12:54 PM STEWARD/STEWARDESS BATH) TSH 2.190 0.27 - 4.20 uIU/mL [facility] Blood specimen (specimen) 04/18/2020 12:54 PM STEWARD/STEWARDESS BATH 04/18/2020 1:16 PM STEWARD/STEWARDESS BATH Narrative Resulting Agency Comment CLI Harihta Tse FINANCIAL ENGINEER LAB BLOOD ORDERABLES Final Re sult [address] [place] [phone] * Colonoscopy (07/19/2018) Anatomical Region Laterality Modality Other Narrative 07/19/2018 Dr. Amaya us Historical Provider ENDOSCOPY PROCEDURES Nika perez Result documented in this encounter Visit Diagnoses Diagnosis Lymphedema of right lower extremity- Primary BMI 50.0-59.9, adult (HCC) Acquired hypothyroidism Unspecified hypothyroidism Essential hypertension Unspecified essential hypertension Encounter for screening mammogram for malignant neoplasm of breast Encounter for vitamin deficiency screening Screening for diabetes mellitus (DM) Screening for diabetes mellitus Primary insomnia Persistent disorder of initiating or maintaining sleep History of DVT (deep vein thrombosis) Pain in right leg Screening for cholesterol level documented in this encounter Discontinued Medications Medication Sig Discontinue Reason Start Date End Da te albuterol HFA (PROVENTIL HFA,VENTOLIN HFA,PROAIR HFA) 90 mcg/actuation inhaler Inhale 1-2 puffs every 6 (six) hours as needed for wheezing. Therapy completed 03/27/2018 03/28/2020 benzonatate (TESSALON) 100 mg capsuleIndications:Coug h Take 1 capsule (100 mg total) by mouth 3 (three) times a day as needed for cough. Therapy completed 03/27/2018 03/28/2020 hydroCHLOROthiazide (HYDRODIURIL) 25 mg tablet Take 25 mg by mouth daily Therapy completed 03/28/2020 lisinopril (PRINIVIL,ZESTRIL) 10 mg tablet Take 10 mg by mouth daily Therapy completed 03/28/2020 levothyroxine (SYNTHROID) 100 mcg tablet Take 50 mcg by mouth diesel retrofit installer before breakfast Therapy completed 03/28/2020 omeprazole (PriLOSEC) 40 mg capsule Take 40 mg by mouth daily Therapy completed 03/28/2020 furosemide (LASIX) 40 mg tablet Take 40 mg by mouth daily. Reorder 03/28/2020 metoprolol XL (TOPROL-XL) 25 mg 24 hr tablet Take 25 mg by mouth daily Reorder 03/28/2020 potassium chloride ER (potassium chloride ER) 10 mEq CR tablet Take 10 mEq by mouth daily Reorder 03/28/2020 rivaroxaban (XARELTO) 20 mg tablet Take by mouth daily Reorder 03/28/2020 zolpidem (AMBIEN) 5 mg tablet Take 10 mg by mouth nightly Reorder 08/25/2019 03/28/2020 amLODIPine (NORVASC) 5 mg tablet Take by mouth daily Reorder 03/28/2020 HYDROcodone-acetaminoph en (NORCO) 7.5-325 mg per tablet Take 1 tablet by mouth every 6 (six) hours as needed for Pain. Reorder 03/28/2020 lisinopriL (PRINIVIL,ZESTRIL) 10 mg tablet Take 10 mg by mouth daily Reorder 03/28/2020 documented as of this encounter Historical Medications * This list may reflect changes made after this encounter. lisinopriL (PRINIVIL,ZESTRIL ) 10 mg tablet Take 10 mg by mouth daily 03/28/2020 HYDROcodone-aceta minophen (NORCO) 7.5-325 mg per tablet Take 1 tablet by mouth every 6 (six) hours as needed for Pain. 03/28/2020 amLODIPine (NORVASC) 5 mg tablet Take by mouth daily 03/28/2020 zolpidem (AMBIEN) 5 mg tablet Take 10 mg by mouth nightly 08/25/2019 03/28/2020 rivaroxaban (XARELTO) 20 mg tablet Take by mouth daily 03/28/2020 added in this encounter Care Teams Glazier Apprentice Relationship Specialty Start Date End Date Haritha Tse NP PCP - General Internal Medicine 03/28/20 10/29/22 documented as of this encounter
--- OUTSIDE RECORDS SUMMARY | 2024-03-24 18:54 | XMS_ITS | Encounter Summary ---
Author Organization [facility] Address [address] [address] Care Team Providers Care Actuarial Mathematician Name Role Phone Haritha Tse NP Primary Care Provider Reason for Visit * Reason Comments Follow-up HTN,Hypothyroidism.n o labs Encounter Details Date Type Department Care Team (Late st Contact Info) Description 06/23/2020 11:00 AM CDT Office Visit [facility] Internal Medicine [address] [facility] [address] [place] [address] Haritha Tse NP [address] [facility] [address] [place] [address] Essential hypertension (Primary Dx); Acquired hypothyroidism; Primary insomnia; Lymphedema; Encounter for screening mammogram for malignant neoplasm of breast; Screening for cholesterol level Social History Tobacco [...] Sign Reading Time Taken Comments Blood Pressure 120/70 06/23/2020 10:50 AM CDT Pulse 69 06/23/2020 10:50 AM CDT Temperature 36.2 ??C (97.1 ??F) 06/23/2020 10:50 AM C DT Respiratory Rate 18 06/23/2020 10:50 AM CDT Oxygen Saturation 98% 06/23/2020 10:50 AM CDT Inhaled Oxygen Concentration - - Weight 150.1 kg (331 lb) 06/23/2020 10:50 AM CDT Height - - Body Mass Index 51.84 04/19/2020 11:07 AM AIRCONDITIONING ENGINEER documented in this encounter Patient Instructions * Patient Instructions* Haritha Tse NP - 06/23/2020 11:00 AM CDT Medications as directed. Use caution with the increase in pain medication. Notify the office of anyquestions or concerns. Follow-up in 4 months or sooner as needed with lab work documented in this encounter Ordered Prescriptions Prescription Sig Dispense Quantity Refills Last Filled Start Date End Date HYDROcodone-acetam inophen (NORCO) 10-325 mg per tabletIndications: Pain Take 1 tablet by mouth every 6 (six) hours as needed for pain 90 tablet 08/23/2020 07/25/2020 HYDROcodone-acetam inophen (NORCO) 10-325 mg per tabletIndications: Pain Take 1 tablet by mouth every 6 (six) hours as needed for pain 90 tablet 07/24/2020 06/23/2020 HYDROcodone-acetam inophen (NORCO) 10-325 mg per tabletIndications: Pain Take 1 tablet by mouth every 6 (six) hours as needed for pain 90 tablet 06/23/2020 06/23/2020 documented in this encounter Progress Notes * Haritha Tse, AUTOMATION SOFTWARE ENGINEER - 06/23/2020 11:00 AM CDT Subjective/Objective Patient ID: Tiarra Addison is a 49 y.o. female. Visit Date: 06/23/2020 Chief Complaint Follow-up (HTN,Hypothyroidism.no labs) HPI 49-year-old female in for routine follow-up. Patient states that her right leg lymphedema is worsening. She does have increased pain. She is requesting an increase to 10/325 of Norris 3 times daily. We will increase her. She is due for lab work next visit. She is also due for mammogram. She voices understanding Review of Systems Constitutional: Negative for activity change, chills and fatigue. HENT: Negative for congestion, ear pain, nosebleeds, rhinorrhea and sinus pressure. Respiratory: Negative for cough and shortness of breath. Cardiovascular: Positive for leg swelling (Lymphedema right lower extremity. Left lower extremity +2 pitting). Negative for chest pain and palpitations. Gastrointestinal: [...] Palpations: Abdomen is soft. Musculoskeletal: General: Tenderness present. Normal range of motion. Cervical back: [...] Diagnoses and all orders for this visit: Essential hypertension (I10) (Primary) Comments: Medications as directed. Lab work prior to next visit Orders: - Comprehensive metabolic panel; Future Acquired hypothyroidism (E03.9) Comments: Continue medications as instructed. Have lab work completed prior to next visit Orders: - TSH; Future Primary insomnia (F51.01) Comments: Continue Ambien as instructed Lymphedema (I89.0) Comments: Norris increased to 10/325 3 times daily as needed for severe pain Orders: - HYDROcodone-acetaminophen (NORCO) 10-325 mg per tablet; Take 1 tablet by mouth every 6 (six) hours as needed for pain Encounter for screening mammogram for malignant neoplasm of breast (Z12.31) Comments: Schedule and complete mammogram as you are due Screening for cholesterol level (Z13.220) Comments: Have lab work completed prior to next visit Orders: - Lipid panel; Future documented in this encounter Miscellaneous Notes * Addendum Note - Dariela Lau - 06/23/2020 11:00 AM CDTAddended by: DARIELA LAU on: 06/23/2020 11:09 AM Modules accepted: Orders documented in this encounter Plan of Treatment Scheduled Orders Name Type Priority Associated Diagnoses Orde r Schedule Lipid panel Lab Routine Screening for cholesterol level Expected: 06/23/2020, Expires: 06/23/2021 TSH Lab Routine Acquired hypothyroidism Expected: 06/23/2020, Expires: 06/23/2021 Comprehensive metabolic panel Lab Routine Essential hypertension Expected: 06/23/2020, Expires: 06/23/2021 documented as of this encounter Visit Diagnoses Diagnosis Essential hypertension- Primary Unspecified essential hypertension Acquired hypothyroidism Unspecified hypothyroidism Primary insomnia Persistent disorder of initiating or maintaining sleep Lymphedema Other noninfectious lymphedema Encounter for screening mammogram for malignant neoplasm of breast Screening for cholesterol level documented in this encounter Discontinued Medications Medication Sig Discontinue Reason Start Date End Da te fluconazole (DIFLUCAN) 150 mg tablet Take 1 tablet (150 mg total) by mouth as directed Take one tab now. Repeat in 7 days if symptoms persist. Therapy completed 04/18/2020 06/23/2020 HYDROcodone-acetaminoph en (NORCO) 7.5-325 mg per tabletIndications:Pain Take 1 tablet by mouth every 6 (six) hours as needed for pain Alternate therapy 05/31/2020 06/23/2020 HYDROcodone-acetaminoph en (NORCO) 10-325 mg per tabletIndications:Pain Take 1 tablet by mouth every 6 (six) hours as needed for pain Reorder 06/23/2020 06/23/2020 HYDROcodone-acetaminoph en (NORCO) 10-325 mg per tabletIndications:Pain Take 1 tablet by mouth every 6 (six) hours as needed for pain Reorder 07/24/2020 06/23/2020 documented as of this encounter Care Teams Actuarial Mathematician Relationship Specialty Start Date End Date Haritha Tse NP PCP - General Internal Medicine 03/28/20 10/29/22 documented as of this encounter
--- OUTSIDE RECORDS SUMMARY | 2024-03-24 18:54 | XMS_ITS | Encounter Summary ---
Author Organization [facility] Healthcare Address [address] [place] [id number] Care Team Providers Care Circulation Representative Name Role Phone Haritha Tse NP Primary Care Provider [phone] Reason for Visit * Reason Onset Date Comments Med Refill 03/28/2023 Encounter Details Date Type Department Care Team (Late st Contact Info) Description 03/28/2023 Nurse Triage [facility] Internal Medicine at [address] [place] [address] Felix Spencer RN Social History Tobacco Use Types Packs/Day Years [...] encounter Miscellaneous Notes * Telephone Encounter - Pinky Castro PA - 03/29/2023 11:17 AM RECEIVING BARN CUSTODIAN Percocet #14 was the Rx. As a correction. IVING BARN CUSTODIAN * Telephone Encounter - Nicole Ferreira LPN - 03/29/2023 11:13 AM RECEIVING BARN CUSTODIAN Called and spoke to patient and informed her of recommendations. IVING BARN CUSTODIAN * Telephone Encounter - Pinky Castro PA - 03/29/2023 11:02 AM RECEIVING BARN CUSTODIAN GISELLA spoke with patient -- She states the Oxy is not holding her bid dosing, she has pain in between so taking more than presecribed. Has appt with Pain managment on 04/03 but is now out of the oxycodone and worried as Yolanda is here. Instruct her to cut the Percocet 5/235 in half and take a half tab every 4-6 hours. She can also take an additional Tylenol 650mg three times a day. This will extend her control. Review to max tylenol from all sources at 4000mg. I will send Percocet #15. IVING BARN CUSTODIAN * Telephone Encounter - Felix Spencer RN - 03/28/2023 5:57 PM RECEIVING BARN CUSTODIAN Tiarra Matthewmirza Addison called, stated she had previously been taking [place] 10/325 QID for her knee pain and the PCP gave her Percocet 5/325 #60 on 03.04.23 which she ran out of. Stated she is scheduled with a new ortho provider to address this concern next week on 04.03.23 buthoping the PCP will write enough pain medication to get her until this time. Onset-ongoing Per protocol-call PCP when office is open. Pt was educated on 72hr refill turn around time, the complications with opioid refills too soon, and [facility] protocol with not allowing after hours refills. Pt is aware this will be forwarded to the office to address during business hours. Pt was very polite and agreeable with the plan. Message routed for med determination. #[phone] Reason for Disposition Caller requesting a CONTROLLED substance prescription refill (e.g., narcotics, ADHD medicines) Protocols used: Medication Refill and Renewal [id number] IVING BARN CUSTODIAN * Telephone Encounter - Felix Spencer RN - 03/28/2023 4:59 PM RECEIVING BARN CUSTODIAN ----- Message from July Triny sent at 03/28/2023 3:19 PM RECEIVING BARN CUSTODIAN ----- Symptom Based Call Chief Complaint(s): pain in both legs and knee Duration: on going What type of symptom(s) is the patient experiencing? Red Flag. Is the patient concerned they are experiencing a medical emergency requiring an ambulance? No Additional Comments: pt has lymphedema, swollen le Does message need to be routed? Yes-Action Needed IVING BARN CUSTODIAN documented in this encounter Plan of Treatment Not on file documented as of this encounter Visit Diagnoses Not on filedocumented in this encounter Care Teams Circulation Representative Relationship Specialty Start Date End Date Haritha Tse NP [address] [facility] [address] [place] [address] PCP - General Internal Medicine 10/30/22 documented as of this encounter
--- OUTSIDE RECORDS SUMMARY | 2024-03-24 18:54 | XMS_ITS | Encounter Summary ---
Author Organization [facility] Care Team Providers Care Loom Changeover Operator Name Role Phone Unknown, Notinfile Unavailable Unavailable Gerard Sutton MD Primary Care Provider [phone] Encounter Details Date Type Department Care Team (Latest Contact Info) Description 04/30/2019 Travel Social History Tobacco Use Types Packs/Day [...] on filedocumented in this encounter Care Teams Loom Changeover Operator Relationship Specialty Start Date End Date Gerard Sutton MD PCP - General 11/21/18 03/27/20 Unknown, Notinfile 02/18/18 03/27/20 documented as of this encounter
--- OUTSIDE RECORDS SUMMARY | 2024-03-24 18:54 | XMS_ITS | Encounter Summary ---
Author Organization [facility] Address [address] [place] [address] Care Team Providers Care Clean Rice Broker Name Role Phone Haritha Tse CLINICAL RESEARCH ANALYST Primary Care Provider [phone] Encounter Details Date Type Department Care Team (Late st Contact Info) Description 07/26/2020 Telephone [facility] Internal Medicine [address] [place] [address] Haritha sTe, CLINICAL RESEARCH ANALYST [address] [place] [address] Social History Tobacco Use Types [...] encounter Miscellaneous Notes * Telephone Encounter - Dariela Zapata - 07/26/2020 1:30 PM CDT Patient needs a referral to see Dr Prashant Blanc 07/27/2020 DX M25.561, M25.562, and G89.29 Insurance Auth: [id number] valid 07/26/20 to 01/22/21 with 4 visits documented in this encounter Plan of Treatment Not on file documented as of this encounter Visit Diagnoses Diagnosis Arthralgia of lower leg, unspecified laterality- Primary documented in this encounter Care Teams Clean Rice Broker Relationship Specialty Start Date End Date Haritha Tse NP PCP - General Internal Medicine 03/28/20 10/29/22 documented as of this encounter
--- OUTSIDE RECORDS SUMMARY | 2024-03-24 18:55 | XMS_ITS | Encounter Summary ---
Author Organization [facility] Healthcare Address [address] [place] [id number] Care Team Providers Care Publicist Name Role Phone Unknown, Notinfile Primary Care Provider Unavail able Unknown, Notinfile Unavailable Unavailable Encounter Details Date Type Department Care Team (Late st Contact Info) Description 07/19/2018 6:13 PM CDT - 07/22/2018 2:40 PM CDT Hospital Encounter [facility] ADMIT Phil Chaves MD [facility] [place] [address] Discharge Disposition: Discharge to home or self [...] Sign Reading Time Taken Comments Blood Pressure 150/95 07/20/2018 8:18 PM CDT Pulse 88 07/20/2018 8:18 PM CDT Temperature 36.8 ??C (98.2 ??F) 07/20/2018 8:18 PM CD T Respiratory Rate - - Oxygen Saturation 98% 07/20/2018 8:18 PM CDT Inhaled Oxygen Concentration - - Weight 140.6 kg (310 lb) 07/20/2018 8:18 PM CDT Height 170.2 cm (5' 7 ) 07/20/2018 8:18 PM CDT Body Mass Index 48.55 07/20/2018 8:18 PM CDT documented in this encounter Medications at Time of Discharge thiamine (VITAMIN B-1) 250 mg tablet Take 1 tablet (250 mg total) by mouth daily. 30 tablet 11 02/07/2018 02/07/2019 albuterol HFA (PROVENTIL HFA,VENTOLIN HFA,PROAIR HFA) 90 mcg/actuation inhaler Inhale 1-2 puffs every 6 (six) hours as needed for wheezing. 1 Inhaler 03/27/2018 03/28/2020 benzonatate (TESSALON) 100 mg capsuleIndicatio ns:Cough Take 1 capsule (100 mg total) by mouth 3 (three) times a day as needed for cough. 15 capsule 03/27/2018 03/28/2020 chlordiazePOXIDE (LIBRIUM) 25 mg capsule Take 1 capsule (25 mg total) by mouth every 6 (six) hours. For 2 doses, then twice a day for two doses, then once a day. 5 capsule 02/07/2018 04/29/2019 escitalopram (LEXAPRO) 20 mg tablet Take 1 tablet (20 mg total) by mouth daily. 30 tablet 02/08/2018 04/29/2019 furosemide (LASIX) 40 mg tablet Take 40 mg by mouth daily. 03/28/2020 furosemide (LASIX) 40 mg tablet Take 40 mg by mouth 2 (two) times a day. 04/29/2019 HYDROcodone-acet aminophen (NORCO) 10-325 mg per tabletIndication s:Pain Take 1 tablet by mouth every 6 (six) hours as needed for pain. 04/29/2019 ibuprofen (ADVIL,MOTRIN) 600 mg tablet Take 1 tablet (600 mg total) by mouth 4 (four) times a day as needed for pain. Take with food. 30 tablet 04/22/2018 04/29/2019 losartan-hydroCH LOROthiazide (HYZAAR) 50-12.5 mg per tablet Take 1 tablet by mouth daily. 04/29/2019 oxyCODONE-acetam inophen (PERCOCET) 5-325 mg per tabletIndication s:Pain Take 1-2 tablets by mouth every 6 (six) hours as needed for pain (1 tablet for mild to moderate pain or 2 tablets for severe pain). 6 tablet 03/27/2018 04/29/2019 rivaroxaban (XARELTO) 10 mg tablet Take 10 mg by mouth daily. 05/02/2019 RIVAROXABAN 15 MG (42)-20 MG (9) TABLETS IN A STARTER PACK Take 1 Package by mouth as directed. Take 15 mg BID with food for 21 days, then take 20 mg daily 1 each 02/07/2018 05/02/2019 valsartan (DIOVAN) 40 mg tablet Take 40 mg by mouth daily. 04/29/2019 documented as of this encounter Discharge Disposition Disposition Code Departure Means Destination Discharge to home or self care documented in this encounter Plan of Treatment Not on file documented as of this encounter Procedures Procedure Name Priority Date/Time Associated Diagnosis Comments CBC WITH AUTO DIFFERENTIAL Routine 07/22/2018 5:56 AM CDT BASIC METABOLIC PANEL Routine 07/22/2018 5:56 AM CDT HEMOGLOBIN AND HEMATOCRIT Routine 07/21/2018 12:32 PM CDT CBC WITH AUTO DIFFERENTIAL Routine 07/21/2018 4:26 AM CDT BASIC METABOLIC PANEL Routine 07/21/2018 4:26 AM CDT PROCEDURE - RESULT 07/21/2018 12 :00 AM CDT US ABDOMEN COMPLETE W LIVER DOPPLER (C) 07/21/2018 12:00 AM CDT US PELVIS W ENDOVAGINAL 07/21/2018 12:00 AM CDT HEMOGLOBIN AND HEMATOCRIT Routine 07/20/2018 4:55 PM CDT VITAMIN B12 AND FOLATE Routine 9 2:38 PM CDT IRON PROFILE W/ IBC Routine 07/20/2018 2 :38 PM CDT FERRITIN Routine 07/20/2018 2:38 PM CDT ECG 12-LEAD 07/20/2018 10:09 AM CDT B ABO / RH CONFIRMATION TESTING Routine 07/20/2018 4:08 AM CDT CBC WITH AUTO DIFFERENTIAL Routine 07/20/2018 4:08 AM CDT APTT Routine 07/20/2018 4:08 AM CDT PROTIME-INR Routine 07/20/2018 4:08 AM CDT H. PYLORI ANTIBODY, IGG Routine 07/20/2018 4:08 AM CDT HEMOGLOBIN A1C Routine 07/20/2018 4:08 AM CDT COMPREHENSIVE METABOLIC PANEL Routine 07/20/2018 4:08 AM CDT URINALYSIS, COMPLETE Routine 07/19/2018 10:05 PM CDT DRUGS OF ABUSE SCREEN, URINE WITHOUT CONFIRMATION Routine 07/19/2018 10:05 PM CDT ECG 12-LEAD 07/19/2018 8:20 PM CDT RBC TRANSFUSION ORDER Routine 07/19/2018 8:04 PM CDT CBC WITH AUTO DIFFERENTIAL Routine 07/19/2018 8:04 PM CDT ANTIBODY SCREEN Routine 07/19/2018 8:04 PM CDT TYPE AND SCREEN Routine 07/19/2018 8:04 PM CDT TNI WITH LIPID PANEL Routine 07/19/2018 6:43 PM CDT THYROID FUNCTION CASCADE Routine 07/19/2018 6:43 PM CDT HCG, BLOOD, QUANTITATIVE Routine 07/19/2018 6:43 PM CDT B-TYPE NATRIURETIC PEPTIDE Routine 07/19/2018 6:43 PM CDT ETHANOL Routine 07/19/2018 6:43 PM CDT BASIC METABOLIC PANEL Routine 07/19/2018 6:43 PM CDT CTA CHEST W IV CONTRAST - PE 07/19/2018 12:00 AM CDT documented in this encounter Results * Basic metabolic panel (07/22/2018 5:56 AM CDT) Sodium 140 135 - 145 mmol/L [facility] Potassium 3.7 3.3 - 5.1 mmol/L [facility] Chloride 105 96 - 108 mmol/L [facility] Carbon Dioxide 25 22 - 32 mmol/L [facility] Anion Gap 10 7 - 16 [facility] Glucose 99 70 - 100 mg/dL [facility] BUN 8 8 - 25 mg/dL [facility] Creatinine 0.8 0.5 - 1.1 mg/dL [facility] Comment: NOTE: Estimated GFR (Cockroft-Gault) will NOT be calculated unless patient Height and Weight were entered. Also, Kidney Disease Stage (GFR) and Estimated GFR (Cockroft-Gault) will NOT be calculated if Creatinine result is <0.2. Kidney Disease Stage >90 mL/MIN [facility] Comment: NOTE; ??The GFR is an estimated value using the creatinine, sex, age, and race of the patient. THE Estimated Kidney Disease GFR is validated for AGES 18-70 YEARS STAGE ?mL/Min ?DESCRIPTION ??1 ?90 mL/min or more ?Normal or elevated GFR ??2 ? 60-89 mL/min ?Mildly decreased GFR ??3 ? 30-59 mL/min ?Moderately decreased GFR ??4 ? 15-29 mL/min ?Severely decreased GFR ??5 ? <15 mL/min ? Kidney failure or on dialysis Est GFR (Cockcroft-G) 123 ml/MIN [facility] Comment: Estimated GFR(Cockroft-Gault)is used to calculate patient medication dosage Calcium 9.9 8.6 - 10.3 mg/dL [facility] 07/22/2018 5:56 AM CDT 07/22/2018 6:36 AM CDT Narrative Resulting Agency Comment IN us Paula Ayers MD LAB BLOOD ORDERABLES Final Res ult [facility] [address] [place] [address], [facility] [phone] * (ABNORMAL) CBC with auto differential (07/22/2018 5:56 AM CDT) WBC 6.6 3.8 - 9.9 X10 3/ul [facility] RBC 4.39 3.90 - 5.20 x10 6/ul [facility] Comment: Results reviewed Hemoglobin 8.8(L) 11.9 - 15.5 g/dL [facility] Hct 32.0(L) 35.6 - 45.5 % [facility] MCV 72.9(L) 81.3 - 96.4 fl [facility] MCH 20.0(L) 27.1 - 33.3 pg [facility] MCHC 27.5(L) 32.3 - 35.7 g/dl [facility] RDW 21.6(H) 11.1 - 14.9 % [facility] Plt Count 229 150 - 400 x10 3/ul [facility] MPV 9.5 9.1 - 12.3 fl [facility] Neut % 69.9 % [facility] Immature Gran % 0.3 % [place] Lymph % 17.7 % [facility] [place] % 7.0 % [facility] Eos % 4.6 % [facility] AUTO BASO % 0.5 % [facility] NEUTROPHIL ABS # 4.6 1.7 - 6.5 x10 3/ul [facility] Immature Gran # 0.0 0.0 - 0.1 x10 3/ul [facility] Absolute Lymphs (auto) 1.2 0.8 - 3.3 x10 3/ul [facility] Absolute Monos (auto) 0.5 0.2 - 0.8 x10 3/ul [facility] Absolute Eos (auto) 0.3 0.0 - 0.5 x10 3/ul [facility] BASOPHIL ABS # 0.0 0.0 - 0.1 x10 3/ul [facility] Nucleat RBC Rel Count 0.0 #/100WBC [facility] NRBC abs 0.00 0.00 - 0.01 x10 3/ul [facility] Absolute Neutrophils 4,600 200 - 8,000 /ul [facility] 07/22/2018 5:56 AM CDT 07/22/2018 6:36 AM CDT Narrative Resulting Agency Comment IN us Paula Ayers MD LAB BLOOD ORDERABLES Final Res ult [facility] [address] [place] [address], [facility] [phone] * (ABNORMAL) Hemoglobin and hematocrit (07/21/2018 12:32 PM CDT) Hemoglobin 7.8(L) 11.9 - 15.5 g/dL [facility] Hct 27.9(L) 35.6 - 45.5 % [facility] 07/21/2018 12:3 2 PM CDT 07/21/2018 12:36 PM CDT Narrative Resulting Agency Comment IN us Jonathan Glover MD LAB BLOOD ORDERABLES F inal Result [facility] [address] [place] [address], [facility] [phone] * Basic metabolic panel (07/21/2018 4:26 AM CDT) Sodium 137 135 - 145 mmol/L [facility] Potassium 3.5 3.3 - 5.1 mmol/L [facility] Chloride 105 96 - 108 mmol/L [facility] Carbon Dioxide 23 22 - 32 mmol/L [facility] Anion Gap 9 7 - 16 [facility] Glucose 82 70 - 100 mg/dL [facility] BUN 8 8 - 25 mg/dL [facility] Creatinine 0.7 0.5 - 1.1 mg/dL [facility] Comment: NOTE: Estimated GFR (Cockroft-Gault) will NOT be calculated unless patient Height and Weight were entered. Also, Kidney Disease Stage (GFR) and Estimated GFR (Cockroft-Gault) will NOT be calculated if Creatinine result is <0.2. Kidney Disease Stage >90 mL/MIN [facility] Comment: NOTE; ??The GFR is an estimated value using the creatinine, sex, age, and race of the patient. THE Estimated Kidney Disease GFR is validated for AGES 18-70 YEARS STAGE ?mL/Min ?DESCRIPTION ??1 ?90 mL/min or more ?Normal or elevated GFR ??2 ? 60-89 mL/min ?Mildly decreased GFR ??3 ? 30-59 mL/min ?Moderately decreased GFR ??4 ? 15-29 mL/min ?Severely decreased GFR ??5 ? <15 mL/min ? Kidney failure or on dialysis Est GFR (Cockcroft-G) 141 ml/MIN [facility] Comment: Estimated GFR(Cockroft-Gault)is used to calculate patient medication dosage Calcium 9.5 8.6 - 10.3 mg/dL [facility] 07/21/2018 4:26 AM CDT 07/21/2018 6:07 AM CDT Narrative Resulting Agency Comment IN us Paula Ayers MD LAB BLOOD ORDERABLES Final Res ult [facility] [address] [place] [address], [facility] [phone] * (ABNORMAL) CBC with auto differential (07/21/2018 4:26 AM CDT) WBC 5.9 3.8 - 9.9 X10 3/ul [facility] RBC 3.43(L) 3.90 - 5.20 x10 6/ul [facility] Hemoglobin 6.7(LL) 11.9 - 15.5 g/dL [facility] Comment: CRITICAL VALUE CALLED and REPEATED. at:0628 07/21/18 by:Roland Kendall to:March Hct 23.1(L) 35.6 - 45.5 % [facility] MCV 67.3(L) 81.3 - 96.4 fl [facility] MCH 19.5(L) 27.1 - 33.3 pg [facility] MCHC 29.0(L) 32.3 - 35.7 g/dl [facility] RDW 19.9(H) 11.1 - 14.9 % [facility] Plt Count 188 150 - 400 x10 3/ul [facility] MPV 9.2 9.1 - 12.3 fl [facility] Neut % 64.4 % [facility] Immature Gran % 0.3 % [place] [facility] Lymph % 19.3 % [facility] [place] % 9.3 % [facility] Eos % 6.4 % [facility] AUTO BASO % 0.3 % [facility] NEUTROPHIL ABS # 3.8 1.7 - 6.5 x10 3/ul [facility] Immature Gran # 0.0 0.0 - 0.1 x10 3/ul [facility] Absolute Lymphs (auto) 1.1 0.8 - 3.3 x10 3/ul [facility] Absolute Monos (auto) 0.6 0.2 - 0.8 x10 3/ul [facility] Absolute Eos (auto) 0.4 0.0 - 0.5 x10 3/ul [facility] BASOPHIL ABS # 0.0 0.0 - 0.1 x10 3/ul [facility] Nucleat RBC Rel Count 0.0 #/100WBC [facility] NRBC abs 0.00 0.00 - 0.01 x10 3/ul [facility] Absolute Neutrophils 3,800 200 - 8,000 /ul [facility] 07/21/2018 4:26 AM CDT 07/21/2018 6:07 AM CDT Narrative Resulting Agency Comment IN us Paula Ayers MD LAB BLOOD ORDERABLES Final Res ult [facility] [address] [place] [address] * PROCEDURE - RESULT (07/21/2018 12:00 AM CDT) Narrative 07/21/2018 12:00 AM CDT Ordered by an unspecified provider. us Historical Provider Final Res ult * US Abdomen Complete W Liver Duplex (C) (07/21/2018 12:00 AM CDT) Anatomical Region Laterality Modality Abdomen Right Ultrasound 07/21/2018 2:30 PM CDT Narrative 07/21/2018 2:37 PM CDT Patient Name: TIARRA HAN ?Ordering Dr: Phil Chaves MD ?? D.O.B: 1970 ? Exam Date: 07/21/18 ?? 0000 ?? Age: 47 ?Sex: Female ? MR#: [id number] ?? Loc: ??C138-01 ? RADIOLOGY REPORT ?? Order #[id number] ?? Ultrasound ? US Duplex Scan Limited ? Signed ?? EXAM DESCRIPTION: ??US Pelvic and Transvaginal; US Duplex Scan Limited ? REASON FOR STUDY: ??Heavy menses for 5 years. ? TECHNIQUE: ??Ultrasound of the pelvic contents was performed with ?? transabdominal and transvaginal transducer. ??Grayscale and color doppler ?? techniques were utilized. ? COMPARISON: ??None available. ? FINDINGS: ? UTERUS: The uterus is anteverted. The uterus is homogenous in echotexture and ?? measures 11.1 x 4.9 x 4.1 cm. ??Nabothian cysts noted in the cervix. ? ENDOMETRIUM: The endometrium measures 5 mm in thickness. ? RIGHT OVARY: Not identified. ??No right-sided adnexal masses noted. ? LEFT OVARY: The left ovary measures 4.5 x 4.4 x 3.9 cm. There is documentation ?? of color Doppler flow in the left ovary. ??There is a fluid containing ?? structure in the left ovary, measuring 4 cm in greatest diameter. ??There are ?? no suspicious imaging features. ??This likely represents either a simple cyst ?? or a dominant follicle. ? PELVIC FLUID: There is a small amount of free fluid in the cul-de-sac. ??No ?? internal echogenic reflectors within the fluid suggest debris or blood ?? products. ? OTHER: No other significant findings. ? IMPRESSION: ? 1.No findings to account for patient's reported abnormal uterine bleeding. ? 2.Fluid containing structure in the left ovary without suspicious imaging ?? features, likely representing either a simple cyst or dominant follicle. ??This ?? measures approximately 4 cm. ? 3.Other findings as above. ? THIS IS AN ELECTRONICALLY VERIFIED FINAL REPORT ?? 07/21/2018 2:37 PM - Electronically signed by Jc Collier M.D. ?? Jc Collier M.D. ? RL ?? D: ??07/21/2018 2:37 PM ?? T: ? Report ID: [id number] ?? Reading Location: ??[id number] ? REPORT ELECTRONICALLY SIGNED IN OTHER VENDOR SYSTEM ?? Resulting Agency Comment I Procedure Note Jc Collier MD - 07/21/2018 Patient Name: TIARRA HAN Dr: Phil Chaves MD D.O.B: 1970 Exam Date: 07/21/18 0000 Age: 47 Sex: Female MR#: [id number] Loc: C138-01 RADIOLOGY REPORT Order #[id number] Ultrasound US Duplex Scan Limited Signed EXAM DESCRIPTION: US Pelvic and Transvaginal; US Duplex Scan Limited REASON FOR STUDY: Heavy menses for 5 years. TECHNIQUE: Ultrasound of the pelvic contents was performed with transabdominal and transvaginal transducer. Grayscale and color doppler techniques were utilized. COMPARISON: None available. FINDINGS: UTERUS: The uterus is anteverted. The uterus is homogenous in echotextureand measures 11.1 x 4.9 x 4.1 cm. Nabothian cysts noted in the cervix. ENDOMETRIUM: The endometrium measures 5 mm in thickness. RIGHT OVARY: Not identified. No right-sided adnexal masses noted. LEFT OVARY: The left ovary measures 4.5 x 4.4 x 3.9 cm. There isdocumentation of color Doppler flow in the left ovary. There is a fluid containing structure in the left ovary, measuring 4 cm in greatest diameter. Thereare no suspicious imaging features. This likely represents either a simplecyst or a dominant follicle. PELVIC FLUID: There is a small amount of free fluid in the cul-de-sac.No internal echogenic reflectors within the fluid suggest debris or blood products. OTHER: No other significant findings. IMPRESSION: 1.No findings to account for patient's reported abnormal uterinebleeding. 2.Fluid containing structure in the left ovary without suspicious imaging features, likely representing either a simple cyst or dominant follicle.This measures approximately 4 cm. 3.Other findings as above. THIS IS AN ELECTRONICALLY VERIFIED FINAL REPORT 07/21/2018 2:37 PM - Electronically signed by Jc HERNANDEZ T: Report ID: [id number] Reading Location: [place] [address] REPORT ELECTRONICALLY SIGNED IN OTHER VENDOR SYSTEM us Phil Chaves MD IMG US PROCEDURES Final Resu lt * US Pelvis W Endovaginal (07/21/2018 12:00 AM CDT) Anatomical Region Laterality Modality Pelvis N/A Ultrasound 07/21/2018 2:30 PM CDT Narrative 07/21/2018 2:37 PM CDT Patient Name: TIARRA HAN ?Ordering Dr: Dylan Kang DO ?? D.O.B: 1970 ? Exam Date: 07/21/18 ?? 0000 ?? Age: 47 ?Sex: Female ? MR#: [id number] ?? Loc: ??C138-01 ? RADIOLOGY REPORT ?? Order #[id number] ?? Ultrasound ? US Pelvic and Transvaginal ? Signed ?? EXAM DESCRIPTION: ??US Pelvic and Transvaginal; US Duplex Scan Limited ? REASON FOR STUDY: ??Heavy menses for 5 years. ? TECHNIQUE: ??Ultrasound of the pelvic contents was performed with ?? transabdominal and transvaginal transducer. ??Grayscale and color doppler ?? techniques were utilized. ? COMPARISON: ??None available. ? FINDINGS: ? UTERUS: The uterus is anteverted. The uterus is homogenous in echotexture and ?? measures 11.1 x 4.9 x 4.1 cm. ??Nabothian cysts noted in the cervix. ? ENDOMETRIUM: The endometrium measures 5 mm in thickness. ? RIGHT OVARY: Not identified. ??No right-sided adnexal masses noted. ? LEFT OVARY: The left ovary measures 4.5 x 4.4 x 3.9 cm. There is documentation ?? of color Doppler flow in the left ovary. ??There is a fluid containing ?? structure in the left ovary, measuring 4 cm in greatest diameter. ??There are ?? no suspicious imaging features. ??This likely represents either a simple cyst ?? or a dominant follicle. ? PELVIC FLUID: There is a small amount of free fluid in the cul-de-sac. ??No ?? internal echogenic reflectors within the fluid suggest debris or blood ?? products. ? OTHER: No other significant findings. ? IMPRESSION: ? 1.No findings to account for patient's reported abnormal uterine bleeding. ? 2.Fluid containing structure in the left ovary without suspicious imaging ?? features, likely representing either a simple cyst or dominant follicle. ??This ?? measures approximately 4 cm. ? 3.Other findings as above. ? THIS IS AN ELECTRONICALLY VERIFIED FINAL REPORT ?? 07/21/2018 2:37 PM - Electronically signed by Jc Collier M.D. ?? Jc Collier M.D. ? RL ?? D: ??07/21/2018 2:37 PM ?? T: ? Report ID: [id number] ?? Reading Location: ??[id number] ? REPORT ELECTRONICALLY SIGNED IN OTHER VENDOR SYSTEM ?? Resulting Agency Comment I Procedure Note Jc Collier MD - 07/21/2018 Patient Name: TIARRA HAN Nathan Dr: Dylan Kang DO, D.O.B: 1970 Exam Date: 07/21/18 0000 Age: 47 Sex: Female MR#: [id number] Loc: C138-01 RADIOLOGY REPORT Order #[id number] Ultrasound US Pelvic and Transvaginal Signed EXAM DESCRIPTION: US Pelvic and Transvaginal; US Duplex Scan Limited REASON FOR STUDY: Heavy menses for 5 years. TECHNIQUE: Ultrasound of the pelvic contents was performed with transabdominal and transvaginal transducer. Grayscale and color doppler techniques were utilized. COMPARISON: None available. FINDINGS: UTERUS: The uterus is anteverted. The uterus is homogenous in echotextureand measures 11.1 x 4.9 x 4.1 cm. Nabothian cysts noted in the cervix. ENDOMETRIUM: The endometrium measures 5 mm in thickness. RIGHT OVARY: Not identified. No right-sided adnexal masses noted. LEFT OVARY: The left ovary measures 4.5 x 4.4 x 3.9 cm. There isdocumentation of color Doppler flow in the left ovary. There is a fluid containing structure in the left ovary, measuring 4 cm in greatest diameter. Thereare no suspicious imaging features. This likely represents either a simplecyst or a dominant follicle. PELVIC FLUID: There is a small amount of free fluid in the cul-de-sac.No internal echogenic reflectors within the fluid suggest debris or blood products. OTHER: No other significant findings. IMPRESSION: 1.No findings to account for patient's reported abnormal uterinebleeding. 2.Fluid containing structure in the left ovary without suspicious imaging features, likely representing either a simple cyst or dominant follicle.This measures approximately 4 cm. 3.Other findings as above. THIS IS AN ELECTRONICALLY VERIFIED FINAL REPORT 07/21/2018 2:37 PM - Electronically signed by Jc Collier M.D. RL T: Report ID: [id number] Reading Location: [id number] REPORT ELECTRONICALLY SIGNED IN OTHER VENDOR SYSTEM Result [facility] Dylan Kang DO IM US PROCEDURES Final Result * (ABNORMAL) Hemoglobin and hematocrit (07/20/2018 4:55 PM CDT) Hemoglobin 7.7(L) 11.9 - 15.5 g/dL [facility] Hct 28.0(L) 35.6 - 45.5 % [facility] 07/20/2018 4:55 PM CDT 07/20/2018 5:19 PM CDT Narrative Resulting Agency Comment IN Result [facility] Paula Ayers MD LAB BLOOD ORDERABLES Final Res ult [place] [address] [place] [address], [facility] [phone] * Ferritin (07/20/2018 2:38 PM CDT) Ferritin 47.9 12.0 - 263.0 ng/mL [facility] Comment: Female: Premenopause ?13.0-150.0 ng/mL Female: Postmenopause ?? 12.0-263.0 ng/mL 07/20/2018 2:38 PM CDT 07/20/2018 3:20 PM CDT Narrative Resulting Agency Comment IN Caren D. Eslinger [employer] LAB BLOOD ORDERABLES Final Result [address] [phone] * Vitamin B12 and Folate (07/20/2018 2:38 PM CDT) Vitamin B12 236 230 - 1,250 pg/mL [facility] Folate 13.6 ng/mL [facility] Comment: Reference Range ??> 5.0 ng/mL Folate has been standardized against the WHO International Standard [facility] code: 07/20/2018 2:38 PM CDT 07/20/2018 3:20 PM CDT Narrative Resulting Agency Comment IN Caren Gipson NP LAB BLOOD ORDERABLES Final Result Performing Organization Address City/[facility]/ZIP Co de Phone Number [address] [phone] * (ABNORMAL) Iron profile w/ IBC (07/20/2018 2:38 PM CDT) Pathologist [facility] Iron 25(L) 37 - 145 ug/dL [facility] TIBC 381 228 - 428 ug/dL [facility] Transferrin % Sat 7(L) 20 - 50 % [facility] 07/20/2018 2:38 PM CDT 07/20/2018 3:20 PM CDT Narrative Resulting Agency Comment IN Caren Gipson [employer] LAB BLOOD ORDERABLES Final Result [address] [phone] * ECG 12 lead (07/20/2018 10:09 AM CDT) Ventricular Rate EKG/Min 87 BPM [facility] Atrial Rate 87 BPM [facility] NV-Interval (MSEC) 168 ms [facility] QRS-Interval (MSEC) 88 ms [facility] QT-Interval (MSEC) 378 ms [facility] QTc 454 ms [facility] P Larsen 46 degrees [facility] R Larsen -10 degrees [facility] T Larsen 14 degrees [facility] Diagnosis Normal sinus rhythm Minimal voltage criteria for LVH, may be normal variant Borderline ECG When compared with ECG of 19-JUL-2018 20:20, No significant change was found [facility] 07/20/2018 10:0 9 AM CDT 07/20/2018 12:00 PM CDT Narrative Resulting Agency Comment INPAT us Phil Chaves MD ECG ORDERABLES Final Result Performing Organization Address [facility] Co de Phone Number [address] * H. pylori antibody, IgG (07/20/2018 4:08 AM CDT) H. pylori IgG NEGATIVE NEGATIVE [facility] 07/20/2018 4:08 AM CDT 07/20/2018 5:14 AM CDT Narrative Resulting Agency Comment IN us Phil Chaves MD LAB BLOOD ORDERABLES Final R esult Performing Organization Address [facility] Co de Phone Number [address] [phone] * ABO / Rh Confirmation Testing (07/20/2018 4:08 AM CDT) Blood Type Confirm O POSITIVE [facility] 07/20/2018 4:08 AM CDT 07/20/2018 5:14 AM CDT Narrative Resulting Agency Comment IN Phil Chaves MD LAB BLOOD ORDERABLES Final R esult Performing Organization Address [facility] Co de Phone Number [address] [phone] * Hemoglobin A1c (07/20/2018 4:08 AM CDT) Hemoglobin A1c % 4.8 4.0 - 5.6 % [facility] Comment: ADA 2016 GUIDELINES: ??Initial Diagnostic Criteria ? HbA1c Result: ?Interpretation: ?<5.7% ? Normal ?5.7-6.4% ?At risk for diabetes mellitus ?>=6.5% ?Consistent with diabetes mellitus ??Diabetes monitoring ? Target value (ADA Recommended) ?? <7% 07/20/2018 4:08 AM CDT 07/20/2018 5:14 AM CDT Narrative [facility] - 07/20/2018 6:09 AM CDT Comment In AM Resulting Agency Comment IN us Phil Chaves MD LAB BLOOD ORDERABLES Final R esult [facility] [address] [place] [address], [facility] [phone] * (ABNORMAL) Comprehensive metabolic panel (07/20/2018 4:08 AM CDT) Pathologist [facility] Sodium 142 135 - 145 mmol/L [facility] Potassium 3.8 3.3 - 5.1 mmol/L [facility] Chloride 110(H) 96 - 108 mmol/L [facility] Carbon Dioxide 24 22 - 32 mmol/L [facility] Anion Gap 8 7 - 16 [facility] Glucose 91 70 - 100 mg/dL [facility] BUN 12 8 - 25 mg/dL [facility] Creatinine 0.7 0.5 - 1.1 mg/dL [facility] Comment: NOTE: Estimated GFR (Cockroft-Gault) will NOT be calculated unless patient Height and Weight were entered. Also, Kidney Disease Stage (GFR) and Estimated GFR (Cockroft-Gault) will NOT be calculated if Creatinine result is <0.2. Kidney Disease Stage >90 mL/MIN [facility] Comment: NOTE; ??The GFR is an estimated value using the creatinine, sex, age, and race of the patient. THE Estimated Kidney Disease GFR is validated for AGES 18-70 YEARS STAGE ?mL/Min ?DESCRIPTION ??1 ?90 mL/min or more ?Normal or elevated GFR ??2 ? 60-89 mL/min ?Mildly decreased GFR ??3 ? 30-59 mL/min ?Moderately decreased GFR ??4 ? 15-29 mL/min ?Severely decreased GFR ??5 ? <15 mL/min ? Kidney failure or on dialysis Est GFR (Cockcroft-G) 141 ml/MIN [facility] Comment: Estimated GFR(Cockroft-Gault)is used to calculate patient medication dosage Calcium 9.1 8.6 - 10.3 mg/dL [facility] Total Protein 6.5 6.4 - 8.3 g/dL [facility] Albumin 3.1(L) 3.5 - 5.0 g/dL [facility] Globulin 3.4 2.3 - 3.5 gm/dL [facility] Albumin/Globulin Ratio 0.9(L) 1.1 - 1.8 [facility] Total Bilirubin 0.5 0.0 - 1.2 mg/dL [facility] AST 18 0 - 32 U/L [facility] ALT 9 0 - 33 U/L [facility] Alkaline Phosphatase 73 35 - 104 U/L [facility] 07/20/2018 4:08 AM CDT 07/20/2018 5:14 AM CDT Narrative [facility] - 07/20/2018 6:09 AM CDT Comment In AM Resulting Agency Comment IN Phil Chaves MD LAB BLOOD ORDERABLES Final R esult Performing Organization Address [facility] Co de Phone Number [address] [phone] * aPTT (07/20/2018 4:08 AM CDT) APTT 28 26 - 33 SECONDS [facility] 07/20/2018 4:08 AM CDT 07/20/2018 5:14 AM CDT Narrative Resulting Agency Comment IN Phil Chaves MD LAB BLOOD ORDERABLES Final R [facility] Performing Organization Address [facility] de Phone Number [address] [phone] * (ABNORMAL) Protime-INR (07/20/2018 4:08 AM CDT) PT 15.1(H) 11.8 - 14.5 SECONDS [facility] INR 1.18 [facility] Comment: Recommended Therapeutic range for Oral Anticoagulant Therapy No anti-coagulation therapy ? Normal Range: ?0.8-1.4 Anti-coagulation therapy ? Low intensity therapy ?2.0-3.0 ? High intensity therapy ?? 2.5-3.5 Critical Value ? Greater than or equal to 5.0 Patients should be monitored for serious bleeding. 07/20/2018 4:08 AM CDT 07/20/2018 5:14 AM CDT Narrative Resulting Agency Comment IN Phil Chaves MD LAB BLOOD ORDERABLES Final R esult [facility] [address] [place] [address], [facility] [phone] * (ABNORMAL) CBC with auto differential (07/20/2018 4:08 AM CDT) WBC 5.6 3.8 - 9.9 X10 3/ul [facility] RBC 3.72(L) 3.90 - 5.20 x10 6/ul [facility] Hemoglobin 7.3(L) 11.9 - 15.5 g/dL [facility] Hct 26.5(L) 35.6 - 45.5 % [facility] MCV 71.2(L) 81.3 - 96.4 fl [facility] MCH 19.6(L) 27.1 - 33.3 pg [facility] MCHC 27.5(L) 32.3 - 35.7 g/dl [facility] RDW 19.8(H) 11.1 - 14.9 % [facility] Plt Count 199 150 - 400 x10 3/ul [facility] MPV 10.0 9.1 - 12.3 fl [facility] Neut % 65.5 % [facility] Immature Gran % 0.2 % [facility] Lymph % 20.0 % [facility] [place] % 8.9 % [facility] Eos % 5.0 % [facility] AUTO BASO % 0.4 % [facility] NEUTROPHIL ABS # 3.7 1.7 - 6.5 x10 3/ul [facility] Immature Gran # 0.0 0.0 - 0.1 x10 3/ul [facility] Absolute Lymphs (auto) 1.1 0.8 - 3.3 x10 3/ul [facility] Absolute Monos (auto) 0.5 0.2 - 0.8 x10 3/ul [facility] Absolute Eos (auto) 0.3 0.0 - 0.5 x10 3/ul [facility] BASOPHIL ABS # 0.0 0.0 - 0.1 x10 3/ul [facility] Nucleat RBC Rel Count 0.0 #/100WBC [facility] NRBC abs 0.00 0.00 - 0.01 x10 3/ul [facility] Absolute Neutrophils 3,700 200 - 8,000 /ul [facility] 07/20/2018 4:08 AM CDT 07/20/2018 5:14 AM CDT Narrative Resulting Agency Comment IN us Phong Delaney MD LAB BLOOD ORDERABLES Final Re sult [facility] [address] [place] [address], [facility] [phone] * Drug Screen, Urine without Confirmation (07/19/2018 10:05 PM CDT) Pathologist [facility] Amphetamines NOT DETECTED [facility] Comment: This assay uses 500 ng/mL as a cutoff for a positive result. Barbiturates NOT DETECTED [facility] Comment: This assay uses 200 ng/mL as a cutoff for a positive result. Benzodiazepines NOT DETECTED [facility] Comment: This assay uses 100 ng/mL as a cutoff for a positive result. Cannabinoids NOT DETECTED [facility] Comment: This assay uses 50 ng/mL as a cutoff for a positive result. Cocaine DETECTED [facility] Comment: This assay uses 150 ng/mL as a cutoff for a positive result. Opiates DETECTED [facility] Comment: This assay uses 300 ng/mL as a cutoff for a positive result. Urine methadone NOT DETECTED [facility] Comment: This assay uses 300 ng/mL as a cutoff for a positive result. Urine phencyclidine plus NOT DETECTED [facility] Comment: This assay uses 25 ng/mL as a cutoff for a positive result. Oxycodone NOT DETECTED [facility] Comment: This assay uses 100 ng/mL as a cutoff for a positive result. Urine Creatinine/JESUS 147.0 mg/dL [facility] Comment: If Creatinine is < 40 mg/dL, recollection is suggested. 07/19/2018 10:0 5 PM CDT 07/19/2018 10:54 PM CDT Narrative [facility] - 07/19/2018 11:20 PM CDT Collected By dr Sera Patel Comment IN Phong Delaney MD LAB URINE ORDERABLES Final Re sult [facility] [address] [place] [address], [facility] [phone] * (ABNORMAL) Urinalysis, Complete (07/19/2018 10:05 PM CDT) Ur Collection Type CLEAN CATCH [facility] Urine Color RED YELLOW [facility] Urine Clarity [facility] Urine Glucose (UA) NORMAL NORMAL mg/dL [facility] Urine Bilirubin NEGATIVE NEGATIVE mg/dl [facility] Urine Ketones NEGATIVE NEGATIVE mg/dL [facility] Ur Specific Pax 1.020 1.005 - 1.025 [facility] Urine Blood >=1.0 NEGATIVE mg/dl [facility] Urine pH 6.0 5.0 - 8.0 [facility] Urine Protein 100(A) NEGATIVE mg/dL [facility] Urine Urobilinogen 2(A) NORMAL mg/dL [facility] Urine Nitrite NEGATIVE NEGATIVE [facility] Ur Leukocyte Esterase 75(A) NEGATIVE Blu/ul [facility] Ur Microscopic Review Indicated or Ordered [facility] Urine RBC 95[address] 0 - 2 /HPF [facility] Urine WBC 45 0 - 2 /HPF [facility] 07/19/2018 10:0 5 PM CDT 07/19/2018 10:54 PM CDT Narrative [facility] - 07/19/2018 11:[address] Wilber bustamante Resulting Agency Comment IN us Phil Chaves MD LAB URINE ORDERABLES Edited Result - Final Performing Organization Address City/[facility]/ZIP Co de Phone Number [address] [phone] * ECG 12 lead (07/19/2018 8:20 PM CDT) Ventricular Rate EKG/Min 98 BPM [facility] Atrial Rate 98 BPM [facility] NV-Interval (MSEC) 184 ms [facility] QRS-Interval (MSEC) 84 ms [facility] QT-Interval (MSEC) 356 ms [facility] QTc 454 ms [facility] P Larsen 43 degrees [facility] R Larsen -8 degrees [facility] T Larsen 17 degrees [facility] Diagnosis Normal sinus rhythm Normal ECG When compared with ECG of 19-JUL-2018 13:15, No significant change was found [facility] 07/19/2018 8:20 PM CDT 07/20/2018 11:58 AM CDT Narrative Resulting Agency Comment INPAT us Phil Chaves MD ECG ORDERABLES Final Result Performing Organization Address [facility] Co de Phone Number [address] * RBC TRANSFUSION ORDER (07/19/2018 8:04 PM CDT) RBC TRANSFUSION ORDER [id number] OP RBCORDER TRANSFUSED 07/21/18 0912 [facility] 07/19/2018 8:04 PM CDT 07/21/2018 6:47 AM CDT Narrative Resulting Agency Comment IN us Phong Delaney MD LAB BLOOD ORDERABLES Final Re sult Performing Organization Address City/[facility]/ZIP Co de Phone Number [address] [phone] * Antibody screen (07/19/2018 8:04 PM CDT) Antibody Screen NEGATIVE [facility] 07/19/2018 8:04 PM CDT 07/19/2018 8:08 PM CDT Narrative Resulting Agency Comment IN Phong Delaney MD LAB BLOOD BANK TEST ORDERABLE S Final Result [place] [id number] [address] [phone] * Type and screen (07/19/2018 8:04 PM CDT) Pathologist [facility] Blood Type O POSITIVE [facility] 07/19/2018 8:04 PM CDT 07/19/2018 8:08 PM CDT Narrative [facility] - 07/19/2018 8:53 PM CDT N Resulting Agency Comment IN Phong Delaney MD LAB BLOOD BANK TEST ORDERABLE S Final Result [address] [phone] * (ABNORMAL) CBC with auto differential (07/19/2018 8:04 PM CDT) Pathologist [facility] WBC 7.7 3.8 - 9.9 X10 3/ul [facility] Comment: Results reviewed RBC 4.22 3.90 - 5.20 x10 6/ul [facility] Hemoglobin 8.0(L) 11.9 - 15.5 g/dL [facility] Hct 29.4(L) 35.6 - 45.5 % [facility] MCV 69.7(L) 81.3 - 96.4 fl [facility] MCH 19.0(L) 27.1 - 33.3 pg [facility] MCHC 27.2(L) 32.3 - 35.7 g/dl [facility] RDW 19.9(H) 11.1 - 14.9 % [facility] Plt Count 228 150 - 400 x10 3/ul [facility] MPV 9.4 9.1 - 12.3 fl [facility] Neut % 70.9 % [facility] Immature Gran % 0.3 % [place] [facility] Lymph % 16.9 % [facility] [place] % 7.4 % [facility] Eos % 4.0 % [facility] AUTO BASO % 0.5 % [facility] NEUTROPHIL ABS # 5.4 1.7 - 6.5 x10 3/ul [facility] Immature Gran # 0.0 0.0 - 0.1 x10 3/ul [facility] Absolute Lymphs (auto) 1.3 0.8 - 3.3 x10 3/ul [facility] Absolute Monos (auto) 0.6 0.2 - 0.8 x10 3/ul [facility] Absolute Eos (auto) 0.3 0.0 - 0.5 x10 3/ul [facility] BASOPHIL ABS # 0.0 0.0 - 0.1 x10 3/ul [facility] Nucleat RBC Rel Count 0.0 #/100WBC [facility] NRBC abs 0.00 0.00 - 0.01 x10 3/ul [facility] Platelet Evaluation AGREE AGREE [facility] Comment: Slide review of platelets correlates with instrument count. Hypochromasia 2+ [facility] Microcytosis 1+ [facility] [facility] Poikilocytosis 2+ [facility] IAL [facility] Target Cells 1+ [facility] Absolute Neutrophils 5,400 200 - 8,000 /ul [facility] 07/19/2018 8:04 PM CDT 07/19/2018 8:08 PM CDT Narrative Resulting Agency Comment IN Phong Delaney MD LAB BLOOD ORDERABLES Final Re sult Performing Organization Address City/[facility]/ZIP Co de Phone Number [address] [phone] * Ethanol (07/19/2018 6:43 PM CDT) Pathologist [facility] Ethyl Alcohol 10 mg/dL [facility] Comment: % = mg/dL x .001 07/19/2018 6:43 PM CDT 07/19/2018 6:49 PM CDT Narrative [facility] - 07/19/2018 8:35 PM CDT Result may be decreased-specimen uncapped for extended time. Resulting Agency Comment IN Phong Delaney MD LAB BLOOD ORDERABLES Final Re sult Performing Organization Address [facility] Co de Phone Number [address] [phone] * hCG, blood, quantitative (07/19/2018 6:43 PM CDT) Pathologist [facility] Beta HCG, Quant <0.1 0.0 - 4.0 mIU/mL [facility] Comment: Female Reference Intervals(): ??Negative ? < 5.0 mIU/mL ??Indeterminate ??5.0-25.0 mIU/mL ??Positive ? > 25.0 mIU/mL Values between 5.0 and 25.0 mIU/mL are indeterminate for . Repeat testing of indeterminate results is suggested in 72 hours. Plasma hCG levels cannot be used to date a . In normal , values should double every 48-72 hours for the first 6 weeks.In postmenopausal women, an hCG level up to 14.0 mIU/mL can be considered normal. This result is not interpretable as a tumor marker in females. 07/19/2018 6:43 PM CDT 07/19/2018 6:49 PM CDT Narrative [facility] - 07/19/2018 8:35 PM CDT Result may be decreased-specimen uncapped for extended time. Resulting Agency Comment IN us Phong Delaney MD LAB BLOOD ORDERABLES Final Re sult [facility] [address] [place] [address], [facility] [phone] * Basic metabolic panel (07/19/2018 6:43 PM CDT) Sodium 139 135 - 145 mmol/L [facility] Potassium 3.8 3.3 - 5.1 mmol/L [facility] Chloride 105 96 - 108 mmol/L [facility] Carbon Dioxide 24 22 - 32 mmol/L [facility] Anion Gap 10 7 - 16 [facility] Glucose 94 70 - 100 mg/dL [facility] BUN 13 8 - 25 mg/dL [facility] Creatinine 0.7 0.5 - 1.1 mg/dL [facility] Comment: NOTE: Estimated GFR (Cockroft-Gault) will NOT be calculated unless patient Height and Weight were entered. Also, Kidney Disease Stage (GFR) and Estimated GFR (Cockroft-Gault) will NOT be calculated if Creatinine result is <0.2. Kidney Disease Stage >90 mL/MIN [facility] Comment: NOTE; ??The GFR is an estimated value using the creatinine, sex, age, and race of the patient. THE Estimated Kidney Disease GFR is validated for AGES 18-70 YEARS STAGE ?mL/Min ?DESCRIPTION ??1 ?90 mL/min or more ?Normal or elevated GFR ??2 ? 60-89 mL/min ?Mildly decreased GFR ??3 ? 30-59 mL/min ?Moderately decreased GFR ??4 ? 15-29 mL/min ?Severely decreased GFR ??5 ? <15 mL/min ? Kidney failure or on dialysis Est GFR (Cockcroft-G) 141 ml/MIN [facility] Comment: Estimated GFR(Cockroft-Gault)is used to calculate patient medication dosage Calcium 9.7 8.6 - 10.3 mg/dL [facility] 07/19/2018 6:43 PM CDT 07/19/2018 6:49 PM CDT Narrative [facility] - 07/19/2018 8:35 PM CDT Result may be decreased-specimen uncapped for extended time. Resulting Agency Comment IN Phong Delaney MD LAB BLOOD ORDERABLES Final Re sult Performing Organization Address [facility]/ZIP Co de Phone Number [address] [phone] * TSH reflex to free T4 (07/19/2018 6:43 PM CDT) TSH W REFLEX TO FT4 2.82 0.27 - 4.20 uIU/mL [facility] TSH W REFLEX TO FT4 2.82 0.27 - 4.20 uIU/mL [facility] 07/19/2018 6:43 PM CDT 07/19/2018 6:49 PM CDT Narrative [facility] - 07/19/2018 8:35 PM CDT Result may be decreased-specimen uncapped for extended time. Resulting Agency Comment IN Phong Delaney MD LAB BLOOD ORDERABLES Final Re sult Performing Organization Address [facility]/ZIP Co de Phone Number [address] [phone] * TNI with LIPID PANEL (07/19/2018 6:43 PM CDT) Troponin I <0.300 0.000 - 0.300 ng/mL [facility] Comment: Reference using [place] Chemiluminescence ? Negative: Repeat in 4-6 hours as indicated. Triglycerides 100 0 - 149 mg/dL [facility] Comment: National Lipid Association/NCEP Guidelines: ?? Normal ?< 150 mg/dL ?? Borderline high ?? 150-199 mg/dL ?? High ?200-499 mg/dL ?? Very High ? >=500 mg/dL Cholesterol 155 0 - 199 mg/dL [facility] Comment: National Lipid Association/NCEP Guidelines: Desirable ? < 200 mg/dL Borderline high: ??200-239 mg/dL High Risk: ?>=240 mg/dL HDL Cholesterol 75 mg/dL [facility] Comment: Reference Ranges: ? Males: >=40 mg/dL ? Females: >=50 mg/dL LDL Cholesterol, Calc 60 0 - 129 mg/dL [facility] Comment: National Lipid Association/NCEP Guidelines: ??Optimal ? < 100 mg/dL ??Near Optimal ?100-129 mg/dL ??Borderline high 130-159 mg/dL ??High ?>=160 mg/dL Cholesterol/HDL Ratio 2.1 [facility] Comment: Optimal ??< 3.5:1 High ? > 5:1 Troponin I <0.300 0.000 - 0.300 ng/mL [facility] Comment: Reference using [place] Chemiluminescence ? Negative: Repeat in 4-6 hours as indicated. Triglycerides 100 0 - 149 mg/dL [facility] Comment: National Lipid Association/NCEP Guidelines: ?? Normal ?< 150 mg/dL ?? Borderline high ?? 150-199 mg/dL ?? High ?200-499 mg/dL ?? Very High ? >=500 mg/dL Cholesterol 155 0 - 199 mg/dL [facility] Comment: National Lipid Association/NCEP Guidelines: Desirable ? < 200 mg/dL Borderline high: ??200-239 mg/dL High Risk: ?>=240 mg/dL HDL Cholesterol 75 mg/dL [facility] Comment: Reference Ranges: ? Males: >=40 mg/dL ? Females: >=50 mg/dL LDL Cholesterol, Calc 60 0 - 129 mg/dL [facility] Comment: National Lipid Association/NCEP Guidelines: ??Optimal ? < 100 mg/dL ??Near Optimal ?100-129 mg/dL ??Borderline high 130-159 mg/dL ??High ?>=160 mg/dL Cholesterol/HDL Ratio 2.1 [facility] Comment: Optimal ??< 3.5:1 High ? > 5:1 07/19/2018 6:43 PM CDT 07/19/2018 6:49 PM CDT Narrative [facility] - 07/19/2018 8:35 PM CDT Result may be decreased-specimen uncapped for extended time. Resulting Agency Comment IN us Phong Delaney MD LAB BLOOD ORDERABLES Final Re sult [facility] [address] [place] [address], [facility] [phone] * B-type natriuretic peptide (07/19/2018 6:43 PM CDT) B-Natriuretic Peptide 45 0 - 100 pg/mL [facility] Comment: B Natriutetic Peptide METHOD: ??Siemens Centaur XP using ADONAY. Decision threshold of 100 pg/mL has been demonstrated to provide the maximal combination of sensitivity, specificity, and predictive value for the diagnosis of congestive heart failure (CHF). ??Virtually all patients with no evidence of CHF have BNP values <100 pg/mL. NOTE: ??Nesiritide (Natrecor) interferes with the BNP assay. BNP result will be invalid if drawn within 2 hours of bolus or infusion of nesiritide. 07/19/2018 6:43 PM CDT 07/19/2018 6:49 PM CDT Narrative Resulting Agency Comment IN us Pihl Chaves MD LAB BLOOD ORDERABLES Final R esult [facility] [place] [address], [facility] [phone] * CTA Chest W IV Contrast - PE (07/19/2018 12:00 AM CDT) Anatomical Region Laterality Modality Body N/A Computed Tomogra phy 07/20/2018 1:13 AM CDT Narrative 07/20/2018 1:23 AM CDT Patient Name: TIARRA HAN ?Ordering Dr: Phong Delaney MD ?? D.O.B: 1970 ? Exam Date: 07/19/18 ?? 0000 ?? Age: 47 ?Sex: Female ? MR#: [id number] ?? Loc: ??C138-01 ? RADIOLOGY REPORT ?? Order #[id number] ?? CT Scan ? CTA Chest W IV Contrast - PE ? Signed ?? EXAM DESCRIPTION: ??CTA Chest W IV Contrast - PE ? REASON FOR STUDY: ??Chest pain for 2 days with shortness of breath with ?? exertion. ??Previous pulmonary embolism in 2014. ? TECHNIQUE: ??CT angiogram of the chest performed with intravenous contrast ?? using helical scanning technique with dynamic intravenous contrast injection. ?? Reconstructed coronal and sagittal MPR images reviewed. All images stored on ?? PACS. 3D MIP images rendered on scanning unit and reviewed at time of ?? interpretation. Automated exposure control was used as a dose optimization ?? technique for this examination. ? CONTRAST TYPE/DOSE: ??100 mL of Optiray 350 injected via the right antecubital ?? IV ? COMPARISON: ??CT chest March 14, 2018 ? FINDINGS: ? VASCULATURE: No identified pulmonary emboli. ??No thoracic aortic dissection, ?? intramural hematoma, or aneurysm. ? LUNGS: No nodules or masses. No pneumonia. ? PLEURA: No effusion. No pneumothorax. ? MEDIASTINUM/CHARANJIT: There are calcified subcarinal lymph nodes. ??No enlarged ?? thoracic lymph nodes identified. ? HEART: Heart size is normal with no pericardial effusion. ? AXILLA: No adenopathy. ? CHEST WALL: No masses. ??No subcutaneous air. ? HARDWARE/LINES/TUBES: None. ? 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 ? MUSCULOSKELETAL: There is an acute or subacute mild anterior wedge compression ?? fracture of T4 vertebral body with fracture line seen along the superior ?? endplate. ??No retropulsed fracture fragment. ??No evidence of ?? osteomyelitis-discitis. ? OTHER: No significant abnormality. ? IMPRESSION: ??1. ??No pulmonary embolism or aortic dissection. ? 2. ??Acute or subacute mild compression fracture of T4 vertebral body. ? THIS IS AN ELECTRONICALLY VERIFIED FINAL REPORT ?? 07/20/2018 1:23 AM - Electronically signed by Moshe Stuart M.D. ?? Moshe Stuart M.D. ? MA ?? D: ??07/20/2018 1:23 AM ?? T: ? Report ID: [id number] ?? Reading Location: ??[id number] ? REPORT ELECTRONICALLY SIGNED IN OTHER VENDOR SYSTEM ?? Resulting Agency Comment I Procedure Note Moshe Stuart MD - 07/20/2018 Patient Name: TIARRA HAN Dr: Phong Delaney MD D.O.B: 1970 Exam Date: 07/19/18 0000 Age: 47 Sex: Female MR#: [id number] Loc: C138-01 RADIOLOGY REPORT Order #[id number] CT Scan CTA Chest W IV Contrast - PE Signed EXAM DESCRIPTION: CTA Chest W IV Contrast - PE REASON FOR STUDY: Chest pain for 2 days with shortness of breath with exertion. Previous pulmonary embolism in 2014. TECHNIQUE: CT angiogram of the chest performed with intravenous contrast using helical scanning technique with dynamic intravenous contrastinjection. Reconstructed coronal and sagittal MPR images reviewed. All images storedon PACS. 3D MIP images rendered on scanning unit and reviewed at time of interpretation. Automated exposure control was used as a doseoptimization technique for this examination. CONTRAST TYPE/DOSE: 100 mL of Optiray 350 injected via the rightantecubital IV COMPARISON: CT chest March 14, 2018 FINDINGS: VASCULATURE: No identified pulmonary emboli. No thoracic aorticdissection, intramural hematoma, or aneurysm. LUNGS: No nodules or masses. No pneumonia. PLEURA: No effusion. No pneumothorax. MEDIASTINUM/CHARANJIT: There are calcified subcarinal lymph nodes. Noenlarged thoracic lymph nodes identified. HEART: Heart size is normal with no pericardial effusion. AXILLA: No adenopathy. CHEST WALL: No masses. No subcutaneous air. HARDWARE/LINES/TUBES: None. 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 MUSCULOSKELETAL: There is an acute or subacute mild anterior wedgecompression fracture of T4 vertebral body with fracture line seen along the superior endplate. No retropulsed fracture fragment. No evidence of osteomyelitis-discitis. OTHER: No significant abnormality. IMPRESSION: 1. No pulmonary embolism or aortic dissection. 2. Acute or subacute mild compression fracture of T4 vertebral body. THIS IS AN ELECTRONICALLY VERIFIED FINAL REPORT 07/20/2018 1:23 AM - Electronically signed by Moshe Stuart M.D., MA T: Report ID: [id number] Reading Location: [id number] REPORT ELECTRONICALLY SIGNED IN OTHER VENDOR SYSTEM Phong Delaney MD IMG CT PROCEDURES Final Resul t documented in this encounter Visit Diagnoses Not on filedocumented in this encounter Care Teams Publicist Relationship Specialty Start Date End Date Unknown, Notinfile PCP - General 02/18/18 10/24/18 Unknown, Notinfile 02/18/18 03/27/20 documented as of this encounter
--- OUTSIDE RECORDS SUMMARY | 2024-03-24 18:55 | XMS_ITS | Encounter Summary ---
Author Organization [facility] Healthcare Address [address] [place] [address] Care Team Providers Care Real Estate Professional Name Role Phone Unknown, Notinfile Unavailable Unavailable Gerard Sutton MD Primary Care Provider [phone] Encounter Details Date Type Department Care Team (Late st Contact Info) Description 01/02/2019 11:10 PM CDT - 01/06/2019 11:20 AM CDT Hospital Encounter [facility] ADMIT Unknown, Geo Gilbert MD [address] [place] [id number] Discharge Disposition: Discharge to home or self [...] Sign Reading Time Taken Comments Blood Pressure 125/83 01/03/2019 1:00 PM CDT Pulse 63 01/03/2019 1:00 PM CDT Temperature 36.8 ??C (98.3 ??F) 01/03/2019 1:00 PM CD T Respiratory Rate - - Oxygen Saturation 95% 01/03/2019 1:00 PM CDT Inhaled Oxygen Concentration - - Weight 140 kg (308 lb 11.2 oz) 01/03/2019 1:00 P M CDT Height 170.2 cm (5' 7 ) 01/03/2019 1:00 PM CDT Body Mass Index 48.35 01/03/2019 1:00 PM CDT documented in this encounter Medications [...] Diagnosis Comments CBC WITH AUTO DIFFERENTIAL Routine 01/06/2019 5:20 AM CDT LUPUS ANTICOAGULANT Routine 01/06/2019 5 :20 AM CDT HOMOCYSTEINE Routine 01/06/2019 5:20 AM CDT PROCALCITONIN Routine 01/05/2019 7:14 PM CDT BLOOD CULTURE Routine 01/05/2019 7:14 PM CDT IGE Routine 01/05/2019 7:14 PM CDT BLOOD CULTURE Routine 01/05/2019 7:01 PM CDT CBC WITH AUTO DIFFERENTIAL Routine 01/05/2019 7:23 AM CDT BASIC METABOLIC PANEL Routine 01/05/2019 7:23 AM CDT HEPARIN ANTI FACTOR XA ACTIVITY Routine 01/04/2019 9:22 AM CDT CBC WITH AUTO DIFFERENTIAL Routine 01/04/2019 9:21 AM CDT BASIC METABOLIC PANEL Routine 01/04/2019 9:21 AM CDT HEPARIN ANTI FACTOR XA ACTIVITY Routine 01/04/2019 1:54 AM CDT GUAIAC OCCULT BLOOD, FECAL, NOT FOR NEOPLASM SCREENING Routine 01/04/2019 1:12 AM CDT PROCEDURE - RESULT 01/04/2019 12 :00 AM CDT HEPARIN ANTI FACTOR XA ACTIVITY Routine 01/03/2019 8:08 PM CDT CBC WITH AUTO DIFFERENTIAL Routine 01/03/2019 4:55 PM CDT TRANSTHORACIC ECHO (TTE) COMPLETE W DOPPLER/CF 01/03/2019 1:31 PM CDT HEPARIN ANTI FACTOR XA ACTIVITY Routine 01/03/2019 12:07 PM CDT CBC WITH AUTO DIFFERENTIAL Routine 01/03/2019 2:38 AM CDT APTT Routine 01/03/2019 2:38 AM CDT PROTIME-INR Routine 01/03/2019 2:38 AM CDT BASIC METABOLIC PANEL Routine 01/03/2019 2:38 AM CDT CARDIOLOGY REPORT 01/03/2019 12: 00 AM CDT US VEIN DUPLEX LOWER EXTREMITY BILATERAL COMPLETE 01/03/2019 12:00 AM CDT XR CHEST 1 VIEW 01/03/2019 12:00 AM CDT APTT Routine 01/02/2019 9:30 PM CDT PROTIME-INR Routine 01/02/2019 9:30 PM CDT ANTIBODY SCREEN Routine 01/02/2019 9:30 PM CDT TYPE AND SCREEN Routine 01/02/2019 9:30 PM CDT RBC TRANSFUSION ORDER Routine 01/02/2019 9:29 PM CDT CTA CHEST W IV CONTRAST - PE 01/02/2019 9:[address] ABDOMEN PELVIS W CONTRAST 01/02/2019 9:25 PM CDT TNI WITH LIPID PANEL Routine 01/02/2019 4:32 PM CDT CBC WITH AUTO DIFFERENTIAL Routine 01/02/2019 4:32 PM CDT B-TYPE NATRIURETIC PEPTIDE Routine 01/02/2019 4:32 PM CDT COMPREHENSIVE METABOLIC PANEL Routine 01/02/2019 4:32 PM CDT ECG 12-LEAD 01/02/2019 4:21 PM CDT XR CHEST 1 VIEW 01/02/2019 12:00 AM CDT documented in this encounter Results * (ABNORMAL) Lupus anticoagulant (01/06/2019 5:20 AM CDT) Pathologist [facility] Prothrombin time [facility] 15.0 12.0 - 15.5 sec [facility] PTT [facility] 45 32 - 48 sec [facility] Dil Memo Viper Venom 28(A) 33 - 44 sec [facility] Lupus Anticoag Interp See Note [facility] Comment: Lupus anticoagulant not detected. The phospholipid-dependent screening tests (PTT, DRVVT) are not prolonged. Lupus anticoagulant antibodies are heterogeneous and antibody titers fluctuate over time. Laboratory tests used to identify lupus anticoagulants demonstrate variable sensitivity. If there is strong clinical suspicion for antiphospholipid antibody syndrome (APS), consider testing for cardiolipin and beta-2 glycoprotein 1 antibodies (IgG and IgM) if this testing has not already been performed. Performed by [facility], [address] [place] [id number] [email or web address], Frank Wang MD, Lab. Director 01/06/2019 5:20 AM CDT 01/06/2019 5:39 AM CDT Narrative Resulting Agency Comment IN Diandra Andrew MD LAB BLOOD ORDERABLES Final Result Performing Organization Address [facility] de Phone Number [facility] [address] [phone] * (ABNORMAL) Homocysteine (01/06/2019 5:20 AM CDT) Pathologist [facility] Homocysteine 23(A) <=10 umol/L [facility] Comment: INTERPRETIVE INFORMATION: Homocysteine, Total Elevated total homocysteine (tHcy) concentrations may be associated with vitamin B12 deficiency, folate deficiency, or inherited disorders of methionine metabolism. tHcy may also be used as a weak-graded risk factor for cardiovascular disease or stroke. Performed by [facility], [address] [place] [id number] [email or web address], Frank Wang MD, Lab. Director 01/06/2019 5:20 AM CDT 01/06/2019 5:39 AM CDT Narrative Resulting Agency Comment IN Diandra Andrew MD LAB BLOOD ORDERABLES Final Result Performing Organization Address [facility] de Phone Number [facility] [address] [phone] * (ABNORMAL) CBC with auto differential (01/06/2019 5:20 AM CDT) Pathologist [facility] WBC 5.1 3.8 - 9.9 X10 3/ul [facility] RBC 3.60(L) 3.90 - 5.20 x10 6/ul [facility] Hemoglobin 7.7(L) 11.9 - 15.5 g/dL [facility] Hct 27.1(L) 35.6 - 45.5 % [facility] MCV 75.3(L) 81.3 - 96.4 fl [facility] MCH 21.4(L) 27.1 - 33.3 pg [facility] MCHC 28.4(L) 32.3 - 35.7 g/dl [facility] RDW 24.6(H) 11.1 - 14.9 % [facility] Plt Count 135(L) 150 - 400 x10 3/ul [facility] MPV 9.6 9.1 - 12.3 fl [facility] Neut % 60.4 % [facility] Immature Gran % 0.2 % [facility] Lymph % 20.4 % [facility] [place] % 12.7 % [facility] Eos % 5.9 % [facility] AUTO BASO % 0.4 % [facility] NEUTROPHIL ABS # 3.1 1.7 - 6.5 x10 3/ul [facility] Immature Gran # 0.0 0.0 - 0.1 x10 3/ul [facility] Absolute Lymphs (auto) 1.0 0.8 - 3.3 x10 3/ul [facility] Absolute Monos (auto) 0.7 0.2 - 0.8 x10 3/ul [facility] Absolute Eos (auto) 0.3 0.0 - 0.5 x10 3/ul [facility] BASOPHIL ABS # 0.0 0.0 - 0.1 x10 3/ul [facility] Nucleat RBC Rel Count 0.0 #/100WBC [facility] NRBC abs 0.00 0.00 - 0.01 x10 3/ul [facility] Absolute Neutrophils 3,100 200 - 8,000 /ul [facility] 01/06/2019 5:20 AM CDT 01/06/2019 5:39 AM CDT Narrative Resulting Agency Comment IN Soo Cerda MD LAB BLOOD ORDERABLES F inal Result [address] [phone] * Blood culture Blood (01/05/2019 7:14 PM CDT) Pathologist [facility] CULTURE BLOOD ADULT (SET OF 2) NO GROWTH DAY 5 [facility] Blood 01/05/2019 7:14 PM CDT 01/05/2019 7:34 PM CDT Diandra Andrew MD LAB MICROBIOLOGY - GENERAL ORDERABLES Final Result Performing Organization Address City/[facility]/ZIP Co de Phone Number [address] [phone] * Procalcitonin (01/05/2019 7:14 PM CDT) [facility] Procalcitonin 0.04 0.0 - 0.24 ng/mL [facility] Comment: Guidelines for use with Community Acquired Pneumonia(CAP)- ONLY: ?? <0.1 ng/mL: Use of antibiotics is STRONGLY discouraged ?? 0.1-0.24 ng/mL: Use of antibiotics is discouraged ?? 0.25-0.5 ng/mL: Use of antibiotics is encouraged ?? >0.5 ng/mL: Use of antibiotics is STRONGLY encouraged ?? Recommend repeating every 2-3 days if initial PCT >0.24 01/05/2019 7:14 PM CDT 01/05/2019 7:34 PM CDT Narrative Resulting Agency Comment IN Diandra Andrew MD LAB BLOOD ORDERABLES Final Result [address] [phone] * (ABNORMAL) IgE (01/05/2019 7:14 PM CDT) Pathologist [facility] IgE 126(H) 0 - 100 IU/mL [facility] 01/05/2019 7:14 PM CDT 01/05/2019 7:34 PM CDT Narrative Resulting Agency Comment IN Diandra Andrew MD LAB BLOOD ORDERABLES Final Result [address] [phone] * Blood culture Blood (01/05/2019 7:01 PM CDT) [facility] CULTURE BLOOD ADULT (SET OF 2) NO GROWTH DAY 5 [facility] Blood 01/05/2019 7:01 PM CDT 01/05/2019 7:34 PM CDT Diandra Andrew MD LAB MICROBIOLOGY - GENERAL ORDERABLES Final Result [address] [phone] * Basic metabolic panel (01/05/2019 7:23 AM CDT) [facility] Sodium 140 135 - 145 mmol/L [facility] Potassium 4.0 3.3 - 5.1 mmol/L [facility] Chloride 106 96 - 108 mmol/L [facility] Carbon Dioxide 27 22 - 32 mmol/L [facility] Anion Gap 7 7 - 16 [facility] Glucose 87 70 - 100 mg/dL [facility] BUN 10 8 - 25 mg/dL [facility] Creatinine 0.8 0.5 - 1.1 mg/dL [facility] Comment: NOTE: Estimated GFR (Cockroft-Gault) will NOT be calculated unless patient Height and Weight were entered. Also, Kidney Disease Stage (GFR) and Estimated GFR (Cockroft-Gault) will NOT be calculated if Creatinine result is <0.2. Kidney Disease Stage >90 mL/MIN [facility] Comment: NOTE; ??The GFR is an estimated [...] failure or on dialysis Est GFR (Cockcroft-G) 125 ml/MIN [facility] Comment: Estimated GFR(Cockroft-Gault)is used to calculate patient medication dosage Calcium 8.8 8.6 - 10.3 mg/dL [facility] 01/05/2019 7:23 AM CDT 01/05/2019 7:38 AM CDT Narrative Resulting Agency Comment IN Soo Cerda MD LAB BLOOD ORDERABLES F inal Result [facility] [address] [place] [address], [facility] [phone] * (ABNORMAL) CBC with auto differential (01/05/2019 7:23 AM CDT) WBC 4.6 3.8 - 9.9 X10 3/ul [facility] RBC 3.48(L) 3.90 - 5.20 x10 6/ul [facility] Hemoglobin 7.5(L) 11.9 - 15.5 g/dL [facility] Hct 26.2(L) 35.6 - 45.5 % [facility] MCV 75.3(L) 81.3 - 96.4 fl [facility] MCH 21.6(L) 27.1 - 33.3 pg [facility] MCHC 28.6(L) 32.3 - 35.7 g/dl [facility] RDW 24.6(H) 11.1 - 14.9 % [facility] Plt Count 134(L) 150 - 400 x10 3/ul [facility] MPV 9.2 9.1 - 12.3 fl [facility] Neut % 58.2 % [facility] Immature Gran % 0.2 % [facility] Lymph % 22.2 % [facility] [place] % 12.7 % [facility] Eos % 6.5 % [facility] AUTO BASO % 0.2 % [facility] NEUTROPHIL ABS # 2.7 1.7 - 6.5 x10 3/ul [facility] Immature Gran # 0.0 0.0 - 0.1 x10 3/ul [facility] Absolute Lymphs (auto) 1.0 0.8 - 3.3 x10 3/ul [facility] Absolute Monos (auto) 0.6 0.2 - 0.8 x10 3/ul [facility] Absolute Eos (auto) 0.3 0.0 - 0.5 x10 3/ul [facility] BASOPHIL ABS # 0.0 0.0 - 0.1 x10 3/ul [facility] Nucleat RBC Rel Count 0.0 #/100WBC [facility] NRBC abs 0.00 0.00 - 0.01 x10 3/ul [facility] Absolute Neutrophils 2,700 200 - 8,000 /ul [facility] 01/05/2019 7:23 AM CDT 01/05/2019 7:38 AM CDT Narrative Resulting Agency Comment IN Soo Cerda MD LAB BLOOD ORDERABLES F inal Result Performing Organization Address City/[facility]/[place] [address], [facility] [phone] * (ABNORMAL) Heparin anti factor Xa activity (01/04/2019 9:22 AM CDT) [facility] Heparin Chromogenic 0.21(L) 0.30 - 0.70 IU/mL [facility] Comment: Anti-factor Xa is used to monitor unfractionated Heparin in weight-based Heparin therapy. ??At [facility], anti-factor Xa cannot be used to monitor Low Molecular Weight Heparin. ??If Low Molecular Weight Heparin monitoring is desired, please order LMWH and notify Heme at extension [phone]. 01/04/2019 9:22 AM CDT 01/04/2019 9:28 AM CDT Narrative [facility] - 01/04/2019 9:43 AM CDT Is patient on IV unfractionated heparin Y Resulting Agency Comment IN Soo Cerda MD LAB BLOOD ORDERABLES F inal Result Performing Organization Address City/[facility]/[place] [address], [facility] [phone] * Basic metabolic panel (01/04/2019 9:21 AM CDT) [facility] Sodium 139 135 - 145 mmol/L [facility] Potassium 3.9 3.3 - 5.1 mmol/L [facility] Chloride 106 96 - 108 mmol/L [facility] Carbon Dioxide 26 22 - 32 mmol/L [facility] Anion Gap 7 7 - 16 [facility] Glucose 92 70 - 100 mg/dL [facility] BUN 10 8 - 25 mg/dL [facility] Creatinine 0.7 0.5 - 1.1 mg/dL [facility] Comment: NOTE: Estimated GFR (Cockroft-Gault) will NOT be calculated unless patient Height and Weight were entered. Also, Kidney Disease Stage (GFR) and Estimated GFR (Cockroft-Gault) will NOT be calculated if Creatinine result is <0.2. Kidney Disease Stage >90 mL/MIN [facility] Comment: NOTE; ??The GFR is an estimated [...] failure or on dialysis Est GFR (Cockcroft-G) 143 ml/MIN [facility] Comment: Estimated GFR(Cockroft-Gault)is used to calculate patient medication dosage Calcium 9.2 8.6 - 10.3 mg/dL [facility] 01/04/2019 9:21 AM CDT 01/04/2019 9:28 AM CDT Narrative Resulting Agency Comment IN us Geo Pool MD LAB BLOOD ORDERABLES Final Result [facility] [address] [place] [address], [facility] [phone] * (ABNORMAL) CBC with auto differential (01/04/2019 9:21 AM CDT) WBC 5.7 3.8 - 9.9 X10 3/ul [facility] RBC 3.96 3.90 - 5.20 x10 6/ul [facility] Hemoglobin 8.5(L) 11.9 - 15.5 g/dL [facility] Hct 29.4(L) 35.6 - 45.5 % [facility] MCV 74.2(L) 81.3 - 96.4 fl [facility] MCH 21.5(L) 27.1 - 33.3 pg [facility] MCHC 28.9(L) 32.3 - 35.7 g/dl [facility] RDW 24.2(H) 11.1 - 14.9 % [facility] Plt Count 155 150 - 400 x10 3/ul [facility] MPV 9.0(L) 9.1 - 12.3 fl [facility] Neut % 63.3 % [facility] Immature Gran % 0.4 % [facility] Lymph % 20.4 % [facility] [place] % 9.2 % [facility] Eos % 6.2 % [facility] AUTO BASO % 0.5 % [facility] NEUTROPHIL ABS # 3.6 1.7 - 6.5 x10 3/ul [facility] Immature Gran # 0.0 0.0 - 0.1 x10 3/ul [facility] Absolute Lymphs (auto) 1.2 0.8 - 3.3 x10 3/ul [facility] Absolute Monos (auto) 0.5 0.2 - 0.8 x10 3/ul [facility] Absolute Eos (auto) 0.4 0.0 - 0.5 x10 3/ul [facility] BASOPHIL ABS # 0.0 0.0 - 0.1 x10 3/ul [facility] Nucleat RBC Rel Count 0.0 #/100WBC [facility] NRBC abs 0.00 0.00 - 0.01 x10 3/ul [facility] Absolute Neutrophils 3,600 200 - 8,000 /ul [facility] 01/04/2019 9:21 AM CDT 01/04/2019 9:28 AM CDT Narrative Resulting Agency Comment IN Geo Pool MD LAB BLOOD ORDERABLES Final Result Performing Organization Address City/[facility] Co de Phone Number [address] [phone] * (ABNORMAL) Heparin anti factor Xa activity (01/04/2019 1:54 AM CDT) Pathologist [facility] Heparin Chromogenic 0.22(L) 0.30 - 0.70 IU/mL [facility] Comment: Anti-factor Xa is used to monitor unfractionated Heparin in weight-based Heparin therapy. ??At [facility], anti-factor Xa cannot be used to monitor Low Molecular Weight Heparin. ??If Low Molecular Weight Heparin monitoring is desired, please order LMWH and notify Heme at extension [phone]. 01/04/2019 1:54 AM CDT 01/04/2019 1:57 AM CDT Narrative [facility] - 01/04/2019 2:10 AM CDT Is patient on IV unfractionated heparin Y Resulting Agency Comment IN Soo Cerda MD LAB BLOOD ORDERABLES F inal Result Performing Organization Address City/[facility]/[place] [address], [facility] [phone] * Guaiac occult blood, fecal, non-neoplasm (01/04/2019 1:12 AM CDT) Stool Occult Blood POSITIVE NEGATIVE [facility] 01/04/2019 1:12 AM CDT 01/04/2019 1:53 AM CDT Narrative [facility] - 01/04/2019 2:33 AM CDT Collected By AD Resulting Agency Comment IN Ozzie Arrington DO LAB BODY FLUIDS AND STOOLS ORD ERABLES Final Result Performing Organization Address [facility]/ZIP Co de Phone Number [place] [id number] [address] [phone] * PROCEDURE - RESULT (01/04/2019 12:00 AM CDT) Narrative 01/04/2019 12:00 AM CDT Ordered by an unspecified provider. Historical Provider Final Res ult * Heparin anti factor Xa activity (01/03/2019 8:08 PM CDT) [facility] Heparin Chromogenic 0.33 0.30 - 0.70 IU/mL [facility] Comment: Anti-factor Xa is used to monitor unfractionated Heparin in weight-based Heparin therapy. ??At [facility], anti-factor Xa cannot be used to monitor Low Molecular Weight Heparin. ??If Low Molecular Weight Heparin monitoring is desired, please order LMWH and notify Heme at extension [phone]. 01/03/2019 8:08 PM CDT 01/03/2019 8:11 PM CDT Narrative [facility] - 01/03/2019 8:22 PM CDT Is patient on IV unfractionated heparin Y Resulting Agency Comment IN us Geo Pool MD LAB BLOOD ORDERABLES Final Result [address] [phone] * (ABNORMAL) CBC with auto differential (01/03/2019 4:55 PM CDT) [facility] WBC 8.4 3.8 - 9.9 X10 3/ul [facility] RBC 4.16 3.90 - 5.20 x10 6/ul [facility] Hemoglobin 9.0(L) 11.9 - 15.5 g/dL [facility] Comment: Results Reviewed Hct 30.9(L) 35.6 - 45.5 % [facility] MCV 74.3(L) 81.3 - 96.4 fl [facility] MCH 21.6(L) 27.1 - 33.3 pg [facility] MCHC 29.1(L) 32.3 - 35.7 g/dl [facility] RDW 24.9(H) 11.1 - 14.9 % [facility] Plt Count 165 150 - 400 x10 3/ul [facility] MPV 8.9(L) 9.1 - 12.3 fl [facility] Neut % 72.2 % [facility] Immature Gran % 0.2 % [facility] Lymph % 14.4 % [facility] [place] % 7.7 % [facility] Eos % 5.1 % [facility] AUTO BASO % 0.4 % [facility] NEUTROPHIL ABS # 6.1 1.7 - 6.5 x10 3/ul [facility] Immature Gran # 0.0 0.0 - 0.1 x10 3/ul [facility] Absolute Lymphs (auto) 1.2 0.8 - 3.3 x10 3/ul [facility] Absolute Monos (auto) 0.7 0.2 - 0.8 x10 3/ul [facility] Absolute Eos (auto) 0.4 0.0 - 0.5 x10 3/ul [facility] BASOPHIL ABS # 0.0 0.0 - 0.1 x10 3/ul [facility] Nucleat RBC Rel Count 0.0 #/100WBC [facility] NRBC abs 0.00 0.00 - 0.01 x10 3/ul [facility] Absolute Neutrophils 6,100 200 - 8,000 /ul [facility] 01/03/2019 4:55 PM CDT 01/03/2019 4:58 PM CDT Narrative Resulting Agency Comment IN us Soo Cerda MD LAB BLOOD ORDERABLES F inal Result [facility] [address] [place] [address], [facility] [phone] * Transthoracic Echo Complete W Doppler/CF (01/03/2019 1:31 PM CDT) Anatomical Region Laterality Modality Ultrasound 01/03/2019 1:31 PM CDT Narrative 01/03/2019 2:11 PM CDT ? Adult Echocardiogram + ----- ------+ :Name: TIARRA ADDISONAnupama Date: 01/03/2019 ? Status: IN;MAIN ? : : ? Patient Location: H.2NE^[id number]: 67 in ? : : ?Weight: 309 lb BP: 141/86 mmHg: :: 1970 ?Gender: Female ? BSA: 2.4 m2 ? : :Reason For Study: Pulmonary Embolism ?: :Ordering Physician: Prashant, ? : :Vann ?: : ?: :Performed By: Marissa Larkin, ?: :RDCS ?: + ----- ------+ Procedure A two-dimensional transthoracic echocardiogram with color flow and Doppler was performed. Left Ventricle The left ventricle is normal in size. There is normal left ventricular wall thickness. Ejection Fraction = 60-65%. No obvious regional wall motion abnormalities noted. There is no obvious thrombus noted. Right Ventricle The right ventricle is mildly dilated. The right ventricular systolic function is mildly reduced. Atria The left atrium is mildly dilated. The right atrium is mildly dilated. There is no Doppler evidence for an atrial septal defect. Mitral Valve The mitral valve leaflets appear normal. There is no evidence of stenosis, fluttering, or prolapse. No significant mitral regurgitation noted. Tricuspid Valve The tricuspid valve is not well visualized, but is grossly normal. Aortic Valve The aortic valve is normal in structure and function. No aortic regurgitation is present. Pulmonic Valve The pulmonic valve is not well seen, but is grossly normal. Great Vessels The aortic root is normal size. Pericardium There is no pericardial effusion. Interpretation Summary Ejection Fraction = 60-65%. No obvious regional wall motion abnormalities noted. The right ventricle is mildly dilated. The right ventricular systolic function is mildly reduced. + + :Measurements with Normals ?: : ?(0.6-1.2 ?LVIDd: ?(3.5-5.7 ?? Ao root diam: ?(2.0-3.7 ?? : :IVSd: 1.4 cmcm) ? 4.2 cm ?cm) ?2.9 cm ? cm) ?: :LVPWd: ?(0.6-1.1 ?LVIDs: ?(3.1-4.6 ?? LA dimension: ?(1.9-4.0 ?? : :1.4 cm ?cm) ? 2.5 cm ?cm) ?4.3 cm ? cm) ?: + + MMode/2D Measurements & Calculations RVDd: 3.9 cm ?LVPWs: 1.5 cm ? FS: 41.5 % ?% IVS thick: 9.7 % IVSs: 1.5 cm ?EDV(Teich): 79.6 ml ?ESV(Teich): 21.7 ml ?LVOT diam: 2.3 cm Ao root area: 6.5 cm2 ?LVOT area: 4.0 cm2 Doppler Measurements & Calculations MV E max tj: ? MV dec time: ?Ao V2 max: ?LV V1 max P.9 cm/sec ? 0.21 sec ?171.8 cm/sec ?10.0 mmHg MV A max tj: ? Ao max PG: ?LV V1 mean P.4 cm/sec ? 11.8 mmHg ? 6.4 mmHg MV E/A: 1.1 ? Ao V2 mean: ? LV V1 max: ?117.5 cm/sec ?157.9 cm/sec ?Ao mean PG: ? LV V1 mean: ?6.5 mmHg ?122.1 cm/sec ?Ao V2 VTI: 39.3 cm ??LV V1 VTI: 34.4 cm ?WINSTON(I,D): 3.5 cm2 ?WINSTON(V,D): 3.7 cm2 ? SV(LVOT): 138.9 ml ??TV V2 max: ?PA V2 max: ?RV V1 max: ?52.9 cm/sec ? 105.9 cm/sec ?72.4 cm/sec ?TV max PG: ?PA max P.5 mmHg ?1.2 mmHg Electronically signed by: MD Martinez Jones 01/03/2019 02:11 PM Resulting Agency Comment I Procedure Note Martinez Jones II, MD - 01/03/2019 Adult Echocardiogram + ----- ------+ :Name: TIARRA ADDISON Date: 01/03/2019 Status:IN;MAIN : : Patient Location: [facility]^[id number]: 67 in: : Weight: 309lb BP: 141/86 mmHg: :: 1970 Gender: Female BSA: 2.4 m2: :Reason For Study: Pulmonary Embolism: :Ordering Physician: Prashant,: :Soo: :: :Performed By: Marissa Larkin,: :RDCS: + ----- ------+ Procedure A two-dimensional transthoracic echocardiogram with color flow and Dopplerwas performed. Left Ventricle The left ventricle is normal in size. There is normal left ventricularwall thickness. Ejection Fraction = 60-65%. No obvious regional wall motion abnormalities noted. There is no obvious thrombus noted. Right Ventricle The right ventricle is mildly dilated. The right ventricular systolicfunction is mildly reduced. Atria The left atrium is mildly dilated. The right atrium is mildly dilated.There is no Doppler evidence for an atrial septal defect. Mitral Valve The mitral valve leaflets appear normal. There is no evidence ofstenosis, fluttering, or prolapse. No significant mitral regurgitation noted. Tricuspid Valve The tricuspid valve is not well visualized, but is grossly normal. Aortic Valve The aortic valve is normal in structure and function. No aorticregurgitation is present. Pulmonic Valve The pulmonic valve is not well seen, but is grossly normal. Great Vessels The aortic root is normal size. Pericardium There is no pericardial effusion. Interpretation Summary Ejection Fraction = 60-65%. No obvious regional wall motion abnormalities noted. The right ventricle is mildly dilated. The right ventricular systolic function is mildly reduced. + + :Measurements with Normals: : (0.6-1.2 LVIDd: (3.5-5.7 Ao root diam:(2.0-3.7 : :IVSd: 1.4 cmcm) 4.2 cm cm) 2.9 cm cm): :LVPWd: (0.6-1.1 LVIDs: (3.1-4.6 LA dimension:(1.9-4.0 : :1.4 cm cm) 2.5 cm cm) 4.3 cm cm): + + MMode/2D Measurements & Calculations RVDd: 3.9 cm LVPWs: 1.5 cm FS: 41.5 % % IVS thick:9.7 % IVSs: 1.5 cm EDV(Teich): 79.6 ml ESV(Teich): 21.7 ml LVOT diam: 2.3 cm Ao root area: 6.5 cm2 LVOT area: 4.0 cm2 Doppler Measurements & Calculations MV E max tj: MV dec time: Ao V2 max: LV V1 max P.9 cm/sec 0.21 sec 171.8 cm/sec 10.0 mmHg MV A max tj: Ao max PG: LV V1 mean P.4 cm/sec 11.8 mmHg 6.4 mmHg MV E/A: 1.1 Ao V2 mean: LV V1 max: 117.5 cm/sec 157.9 cm/sec Ao mean PG: LV V1 mean: 6.5 mmHg 122.1 cm/sec Ao V2 VTI: 39.3 cm LV V1 VTI: 34.4cm WINSTON(I,D): 3.5 cm2 WINSTON(V,D): 3.7 cm2 SV(LVOT): 138.9 ml TV V2 max: PA V2 max: RV V1 max: 52.9 cm/sec 105.9 cm/sec 72.4 cm/sec TV max PG: PA max P.5 mmHg 1.2 mmHg Electronically signed by: MD Martinez Jones 01/03/2019 02:11 PM Soo Cerda MD CV ECHO PROCEDURES Fin al Result * (ABNORMAL) Heparin anti factor Xa activity (01/03/2019 12:07 PM CDT) [facility] Heparin Chromogenic 0.11(L) 0.30 - 0.70 IU/mL [facility] Comment: Anti-factor Xa is used to monitor unfractionated Heparin in weight-based Heparin therapy. ??At [facility] laboratories, anti-factor Xa cannot be used to monitor Low Molecular Weight Heparin. ??If Low Molecular Weight Heparin monitoring is desired, please order LMWH and notify Heme at extension [phone]. 01/03/2019 12:0 7 PM CDT 01/03/2019 12:14 PM CDT Narrative [facility] - 01/03/2019 12:27 PM CDT Is patient on IV unfractionated heparin Y Resulting Agency Comment IN us Geo Pool MD LAB BLOOD ORDERABLES Final Result [facility] [address] [place] [address], [facility] [phone] * (ABNORMAL) Basic metabolic panel (01/03/2019 2:38 AM CDT) Sodium 140 135 - 145 mmol/L [facility] Potassium 3.2(L) 3.3 - 5.1 mmol/L [facility] Chloride 104 96 - 108 mmol/L [facility] Carbon Dioxide 26 22 - 32 mmol/L [facility] Anion Gap 10 7 - 16 [facility] Glucose 90 70 - 100 mg/dL [facility] BUN 12 8 - 25 mg/dL [facility] Creatinine 0.8 0.5 - 1.1 mg/dL [facility] Comment: NOTE: Estimated GFR (Cockroft-Gault) will NOT be calculated unless patient Height and Weight were entered. Also, Kidney Disease Stage (GFR) and Estimated GFR (Cockroft-Gault) will NOT be calculated if Creatinine result is <0.2. Kidney Disease Stage >90 mL/MIN [facility] Comment: NOTE; ??The GFR is an estimated [...] failure or on dialysis Est GFR (Cockcroft-G) 125 ml/MIN [facility] Comment: Estimated GFR(Cockroft-Gault)is used to calculate patient medication dosage Calcium 9.4 8.6 - 10.3 mg/dL [facility] 01/03/2019 2:38 AM CDT 01/03/2019 2:42 AM CDT Narrative Resulting Agency Comment IN us Ozzie Arrington DO LAB BLOOD ORDERABLES Final Res ult Performing Organization Address [facility] Co de Phone Number [address] [phone] * aPTT (01/03/2019 2:38 AM CDT) APTT 28 27 - 36 SECONDS [facility] Comment: New reference ranges in use 10-03-18. 01/03/2019 2:38 AM CDT 01/03/2019 2:42 AM CDT Narrative Resulting Agency Comment IN Soo Cerda MD LAB BLOOD ORDERABLES F inal Result Performing Organization Address [facility] Co de Phone Number [address] [phone] * (ABNORMAL) Protime-INR (01/03/2019 2:38 AM CDT) PT 14.9(H) 12.2 - 14.8 SECONDS [facility] Comment: New reference ranges in use 10-03-18. INR 1.13 [facility] Comment: Recommended Therapeutic range for Oral Anticoagulant Therapy No anti-coagulation therapy ? Normal Range: ?0.8-1.4 Anti-coagulation therapy ? Low intensity therapy ?2.0-3.0 ? High intensity therapy ?? 2.5-3.5 Critical Value ? Greater than or equal to 5.0 Patients should be monitored for serious bleeding. 01/03/2019 2:38 AM CDT 01/03/2019 2:42 AM CDT Narrative Resulting Agency Comment IN Soo Cerda MD LAB BLOOD ORDERABLES F inal Result [facility] [address] [phone] * (ABNORMAL) CBC with auto differential (01/03/2019 2:38 AM CDT) WBC 7.7 3.8 - 9.9 X10 3/ul [facility] RBC 3.66(L) 3.90 - 5.20 x10 6/ul [facility] Hemoglobin 7.2(L) 11.9 - 15.5 g/dL [facility] Hct 26.0(L) 35.6 - 45.5 % [facility] MCV 71.0(L) 81.3 - 96.4 fl [facility] MCH 19.7(L) 27.1 - 33.3 pg [facility] MCHC 27.7(L) 32.3 - 35.7 g/dl [facility] RDW 23.9(H) 11.1 - 14.9 % [facility] Plt Count 177 150 - 400 x10 3/ul [facility] MPV 9.2 9.1 - 12.3 fl [facility] Neut % 73.7 % [facility] Immature Gran % 0.1 % [facility] Lymph % 14.0 % [facility] [place] % 8.4 % [facility] Eos % 3.5 % [facility] AUTO BASO % 0.3 % [facility] NEUTROPHIL ABS # 5.7 1.7 - 6.5 x10 3/ul [facility] Immature Gran # 0.0 0.0 - 0.1 x10 3/ul [facility] Absolute Lymphs (auto) 1.1 0.8 - 3.3 x10 3/ul [facility] Absolute Monos (auto) 0.7 0.2 - 0.8 x10 3/ul [facility] Absolute Eos (auto) 0.3 0.0 - 0.5 x10 3/ul [facility] BASOPHIL ABS # 0.0 0.0 - 0.1 x10 3/ul [facility] Nucleat RBC Rel Count 0.0 #/100WBC [facility] NRBC abs 0.00 0.00 - 0.01 x10 3/ul [facility] Absolute Neutrophils 5,700 200 - 8,000 /ul [facility] 01/03/2019 2:38 AM CDT 01/03/2019 2:42 AM CDT Narrative Resulting Agency Comment IN Soo Cerda MD LAB BLOOD ORDERABLES F inal Result [facility] [address] [place] [address], [facility] [phone] * CARDIOLOGY REPORT (01/03/2019 12:00 AM CDT) Anatomical Region Laterality Modality Other Narrative 01/03/2019 12:00 AM CDT Ordered by an unspecified provider. us Historical Provider CV CARDIAC SERVICES EKNJI WOLFF Final Result * US Vein Duplex Lower Extremity Bilateral Complete (01/03/2019 12:00 AM CDT) Anatomical Region Laterality Modality Vascular Bilateral Ultrasound 01/04/2019 7:12 AM CDT Narrative 01/04/2019 8:39 AM CDT ? Patient Name: TIARRA ADDISON ? MR#: ?? [id number] ? Status: ADM IN ?D.O.B: 1970 Age: ??48 ?Sex: Female ? ADM/SER Dt: 01/02/19 ?Disch Dt: ? LOC: H.2NE ? Ordering Phy: Rodrick,Zeferino Sapp MD ? Order #[id number] ? Venous Dop/Duplex Both Legs ?? Zeferino Mensah MD ? Signed ?? DATE OF SERVICE: ?? 01/03/2019 ? REASON FOR STUDY: ??Pulmonary embolus. ? No thrombus seen in the right common femoral, superficial femoral, popliteal or posterior tibial veins. ??There appears to be old thrombotic disease in the posterior tibial veins. ??No thrombus seen in the greater saphenous vein. ??The peroneal vein could not be visualized due to lymphedema. ? No thrombus seen in the left common femoral, superficial femoral, popliteal, posterior tibial, peroneal or greater saphenous veins. ? IMPRESSION: ? 1. ??No evidence of acute deep vein thrombosis in either lower extremity. ? 2. 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 ? NTS ? Job: [id number] ? Dictated By: Zeferino Mensah MD ?? Dictated For: Zeferino Mensah MD ? <Electronically signed by Zeferino Mensah MD> ? 01/04/19 0756 ?? Resulting Agency Comment I Procedure Note Zeferino Mensah MD - 01/04/2019 Patient Name: TIARRA ADDISON MR#: [id number] Status: ADM IN D.O.B: 1970 Age: 48Sex: Female ADM/SER Dt: 01/02/19 Disch Dt:LOC: H.2NE Ordering Phy: Zeferino Mensah MD Order #[id number] Venous Dop/Duplex Both Legs Zeferino Mensah MD Signed DATE OF SERVICE: 01/03/2019 REASON FOR STUDY: Pulmonary embolus. No thrombus seen in the right common femoral, superficial femoral,popliteal or posterior tibial veins. There appears to be old thrombotic disease in the posterior tibialveins. No thrombus seen in the greater saphenous vein. The peroneal vein could not be visualizeddue to lymphedema. No thrombus seen in the left common femoral, superficial femoral,popliteal, posterior tibial, peroneal or greater saphenous veins. IMPRESSION: 1. No evidence of acute deep vein thrombosis in either lower extremity. 2. 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 NTS Job: [id number] Dictated By: Zeferino Mensah MD Dictated For: Zeferino Mensah MD <Electronically signed by Zeferino Mensah MD> 01/04/19 0756 us Zeferino Mensah MD IMG US PROCEDURES Final Res ult * XR Chest 1 View (01/03/2019 12:00 AM CDT) Anatomical Region Laterality Modality Body, Chest N/A Radiographic Alexsandra ging 01/03/2019 5:11 AM CDT Narrative 01/03/2019 5:11 AM CDT Patient Name: TIARRA ADDISON ?Ordering Dr: Corine,Geo Robertson MD ?? D.O.B: 1970 ? Exam Date: 01/03/19 ?? 0000 ?? Age: 48 ?Sex: Female ? MR#: [id number] ?? Loc: ??N268-02 ? RADIOLOGY REPORT ?? Order #[id number] ?? Radiology ? Chest 1 View Portable ? Signed ?? EXAM DESCRIPTION: ??Chest 1 View Portable ? REASON FOR STUDY: ??PICC placement now ? TECHNIQUE: ??Frontal radiographic view of the chest acquired. ? COMPARISON: ??01/02/2019 ? FINDINGS: ? LUNGS/PLEURA: No focal consolidation or pneumothorax. No pleural effusion. ? HEART/MEDIASTINUM: Heart size is normal. Normal mediastinal and hilar contours. ? HARDWARE/LINES/TUBES: Left PICC in place with distal tip superior vena cava. ? BONES: No acute findings. ? OTHER: No other significant finding. ? IMPRESSION: ??No acute cardiopulmonary disease. ? THIS IS AN ELECTRONICALLY VERIFIED FINAL REPORT ?? 01/03/2019 5:11 AM - Electronically signed by Avinash Zendejas M.D. ?? Avinash Zendejas M.D. ? RW ?? D: ??01/03/2019 5:11 AM ?? T: ? Report ID: [id number] ?? Reading Location: ??[id number] ? REPORT ELECTRONICALLY SIGNED IN OTHER VENDOR SYSTEM ?? Resulting Agency Comment I Procedure Note Avinash Zendejas MD - 01/03/2019 Patient Name: TIARRA ADDISON Jun[address] Dr: Geo Pool MDOBeaB: 1970 Exam Date: 01/03/19 0000 Age: 48 Sex: Female MR#: [id number] Loc: N268-02 RADIOLOGY REPORT Order #[id number] Radiology Chest 1 View Portable Signed EXAM DESCRIPTION: Chest 1 View Portable REASON FOR STUDY: PICC placement now TECHNIQUE: Frontal radiographic view of the chest acquired. COMPARISON: 01/02/2019 FINDINGS: LUNGS/PLEURA: No focal consolidation or pneumothorax. No pleuraleffusion. HEART/MEDIASTINUM: Heart size is normal. Normal mediastinal and hilarcontours. HARDWARE/LINES/TUBES: Left PICC in place with distal tip superior venacava. BONES: No acute findings. OTHER: No other significant finding. IMPRESSION: No acute cardiopulmonary disease. THIS IS AN ELECTRONICALLY VERIFIED FINAL REPORT 01/03/2019 5:11 AM - Electronically signed by Avinash Zendejas M.D. RW T: Report ID: [id number] Reading Location: [id number] REPORT ELECTRONICALLY SIGNED IN OTHER VENDOR SYSTEM us Geo Pool MD IMG XR PROCEDURES Final Res ult * Antibody screen (01/02/2019 9:30 PM CDT) [facility] Antibody Screen NEGATIVE [facility] 01/02/2019 9:30 PM CDT 01/02/2019 9:43 PM CDT Narrative Resulting Agency Comment ER Ozzie [facility] LAB BLOOD BANK TEST ORDERABLES Final Result Performing Organization Address City/[facility]/ZIP Co de Phone Number [address] [phone] * Type and screen (01/02/2019 9:30 PM CDT) Blood Type OP [facility] 01/02/2019 9:30 PM CDT 01/02/2019 9:43 PM CDT Narrative [facility] - 01/02/2019 10:23 PM CDT N Resulting Agency Comment ER Ozzie [facility] LAB BLOOD BANK TEST ORDERABLES Final Result Performing Organization Address [facility] Co de Phone Number [address] [phone] * aPTT (01/02/2019 9:30 PM CDT) Pathologist [facility] APTT 30 27 - 36 SECONDS [facility] Comment: New reference ranges in use 10-03-18. 01/02/2019 9:30 PM CDT 01/02/2019 9:43 PM CDT Narrative Resulting Agency Comment ER [employer] LAB BLOOD ORDERABLES Final Res ult Performing Organization Address [facility] Co de Phone Number [address] [phone] * (ABNORMAL) Protime-INR (01/02/2019 9:30 PM CDT) Pathologist [facility] PT 15.0(H) 12.2 - 14.8 SECONDS [facility] Comment: New reference ranges in use 6-28-19. INR 1.14 [facility] Comment: Recommended Therapeutic range for Oral Anticoagulant Therapy No anti-coagulation therapy ? Normal Range: ?0.8-1.4 Anti-coagulation therapy ? Low intensity therapy ?2.0-3.0 ? High intensity therapy ?? 2.5-3.5 Critical Value ? Greater than or equal to 5.0 Patients should be monitored for serious bleeding. 01/02/2019 9:30 PM CDT 01/02/2019 9:43 PM CDT Narrative Resulting Agency Comment ER zOzie Arrington DO LAB BLOOD ORDERABLES Final Res ult Performing Organization Address [facility] Co de Phone Number [address] [phone] * RBC TRANSFUSION ORDER (01/02/2019 9:29 PM CDT) RBC TRANSFUSION ORDER [id number] OP RBCORDER TRANSFUSED 01/03/19 0815 [id number] OP RBCORDER TRANSFUSED 01/03/19 0251 [facility] 01/02/2019 9:29 PM CDT 01/02/2019 9:44 PM CDT Narrative Resulting Agency Comment IN Ozzie Arrington DO LAB BLOOD ORDERABLES Final Res ult Performing Organization Address [facility] de Phone Number [address] [phone] * CTA Chest W IV Contrast - PE (01/02/2019 9:26 PM CDT) Anatomical Region Laterality Modality Body N/A Computed Tomogra phy 01/02/2019 10:4 0 PM CDT Narrative 01/02/2019 10:57 PM CDT Patient Name: TIARRA ADDISON ?Ordering Dr: Ozzie Arrington DO ?? D.O.B: 1970 ? Exam Date: 01/02/19 ?? 6 ?? Age: 48 ?Sex: Female ? MR#: [id number] ?? Loc: ? RADIOLOGY REPORT ?? Order #[id number] ?? CT Scan ? CTA Chest W IV Contrast - PE ? Signed ?? EXAM DESCRIPTION: ??CTA Chest W IV Contrast - PE ? REASON FOR STUDY: ??Chest discomfort shortness of breath bloody stools cough ?? today ? TECHNIQUE: ??CT angiogram of the chest [...] this examination. ? CONTRAST TYPE/DOSE: ??100 mL Optiray 350 injected via right forearm ? COMPARISON: ??11/22/2018 ? FINDINGS: ? VASCULATURE: There is bilateral acute PE and lower lobe segmental and ?? subsegmental arteries. ??Also small amount of thrombus in the distal left ?? pulmonary artery. ??No evidence of right ventricular dilation. ??Right ?? ventricular/left ventricular ratio 0.9. ? LUNGS: No nodules or masses. No pneumonia. ? PLEURA: No effusion. No pneumothorax. ? MEDIASTINUM/CHARANJIT: No identified masses or abnormal nodes. ? HEART: Heart size is normal with no pericardial effusion. ? AXILLA: No adenopathy. ? CHEST WALL: No masses. ??No subcutaneous air. ? HARDWARE/LINES/TUBES: None. ? UPPER ABDOMEN: No significant abnormality. ? MUSCULOSKELETAL: No significant abnormality. ? OTHER: No significant abnormality. ? IMPRESSION: ??Bilateral acute PE. ?Results communicated to the ordering provider at the time of interpretation ?? 10:50 p.m. 01/02/2019. ? THIS IS AN ELECTRONICALLY VERIFIED FINAL REPORT ?? 01/02/2019 10:57 PM - Electronically signed by Avinash Zendejas M.D. ?? Avinash Zendejas M.D. ? RW ?? D: ??01/02/2019 10:57 PM ?? T: ? Report ID: [id number] ?? Reading Location: ??[id number] ? REPORT ELECTRONICALLY SIGNED IN OTHER VENDOR SYSTEM ?? Resulting Agency Comment E Procedure Note Avinash Zendejas MD - 01/02/2019 Patient Name: TIARRA ADDISON Dr: Ozzie Arrington DO, D.O.B: 1970 Exam Date: 01/02/192125 Age: 48 Sex: Female MR#: [id number] Loc: RADIOLOGY REPORT Order #[id number] CT Scan CTA Chest W IV Contrast - PE Signed EXAM DESCRIPTION: CTA Chest W IV Contrast - PE REASON FOR STUDY: Chest discomfort shortness of breath bloody stoolscough today TECHNIQUE: CT angiogram of the chest performed with intravenous contrast using helical scanning technique with dynamic intravenous contrastinjection. Reconstructed coronal and sagittal MPR images reviewed. All images storedon PACS. 3D MIP images rendered on scanning unit and reviewed at time of interpretation. Automated exposure control was used as a doseoptimization technique for this examination. CONTRAST TYPE/DOSE: 100 mL Optiray 350 injected via right forearm COMPARISON: 11/22/2018 FINDINGS: VASCULATURE: There is bilateral acute PE and lower lobe segmental and subsegmental arteries. Also small amount of thrombus in the distal left pulmonary artery. No evidence of right ventricular dilation. Right ventricular/left ventricular ratio 0.9. LUNGS: No nodules or masses. No pneumonia. PLEURA: No effusion. No pneumothorax. MEDIASTINUM/CHARANJIT: No identified masses or abnormal nodes. HEART: Heart size is normal with no pericardial effusion. AXILLA: No adenopathy. CHEST WALL: No masses. No subcutaneous air. HARDWARE/LINES/TUBES: None. UPPER ABDOMEN: No significant abnormality. MUSCULOSKELETAL: No significant abnormality. OTHER: No significant abnormality. IMPRESSION: Bilateral acute PE. Results communicated to the ordering provider at the time ofinterpretation 10:50 p.m. 01/02/2019. THIS IS AN ELECTRONICALLY VERIFIED FINAL REPORT 01/02/2019 10:57 PM - Electronically signed by Avinash Zendejas M.D. RW T: Report ID: [id number] Reading Location: [id number] REPORT ELECTRONICALLY SIGNED IN OTHER VENDOR SYSTEM Ozzie Arrington DO IMG CT PROCEDURES Final Result * CT Abdomen Pelvis W Contrast (01/02/2019 9:25 PM CDT) Anatomical Region Laterality Modality Body N/A Computed Tomogra phy 01/02/2019 10:3 6 PM CDT Narrative 01/02/2019 10:40 PM CDT Patient Name: GUILLE,TIARRA NICK ?Ordering Dr: Ozzie Arrington DO ?? D.O.B: 1970 ? Exam Date: 01/02/19 ?? 2125 ?? Age: 48 ?Sex: Female ? MR#: [id number] ?? Loc: ? RADIOLOGY REPORT ?? Order #[id number] ?? CT Scan ? CT Abd/Pelvis W IV Contrast ? Signed ?? EXAM DESCRIPTION: ??CT Abd/Pelvis W IV Contrast ? REASON FOR STUDY: ??bloody stools shortness of breath and chest discomfort ?? today ? TECHNIQUE: ??CT scan of the abdomen and pelvis performed with intravenous and ?? without oral contrast using helical scanning technique with dynamic ?? intravenous contrast injection. Reconstructed coronal and sagittal MPR images ?? reviewed. All images stored on PACS. ? Automated exposure control was used as a dose optimization technique for this ?? examination. ? CONTRAST TYPE/DOSE: ??100 mL Optiray 350 injected via right forearm ? COMPARISON: ??None ? FINDINGS: ? LOWER CHEST: No significant pulmonary abnormalities. No effusion. ? LIVER: Normal size. ??No identified cystic or solid masses. ? GALLBLADDER: Unremarkable. ? BILE DUCTS: No intrahepatic or extrahepatic ductal dilatation. ? SPLEEN: Normal size. ??No focal lesions. ? PANCREAS: No identified cystic or solid masses. No significant calcifications. ?? No adjacent inflammation or peripancreatic fluid collections. Pancreatic duct ?? not dilated. ? ADRENALS: Normal. ? KIDNEYS/URINARY TRACT: No identified significant cystic or solid masses. No ?? visualized stones. No hydronephrosis or hydroureter. Symmetric enhancement. ?? Urinary bladder is unremarkable. ? GI: No dilated bowel loops. No obvious wall thickening. ??Normal appendix. ??No ?? significant diverticular disease. ??Postsurgical changes of gastric bypass ?? surgery. ? PERITONEUM: No ascites or free air. ? RETROPERITONEUM: No mass or adenopathy. ? REPRODUCTIVE: No significant abnormality. ??Tubal ligation clips. ??Uterus ?? unremarkable. ??No adnexal masses. ? VASCULATURE: No abdominal aortic aneurysm. ? MUSCULOSKELETAL: No significant abnormality. ? OTHER: Tiny umbilical hernia containing fat. ? IMPRESSION: ??No acute findings in the abdomen or pelvis. ? THIS IS AN ELECTRONICALLY VERIFIED FINAL REPORT ?? 01/02/2019 10:40 PM - Electronically signed by Avinash Zendejas M.D. ?? Avinash Zendejas M.D. ? RW ?? D: ??01/02/2019 10:40 PM ?? T: ? Report ID: [id number] ?? Reading Location: ??[id number] ? REPORT ELECTRONICALLY SIGNED IN OTHER VENDOR SYSTEM ?? Resulting Agency Comment E Procedure Note Avinash Zendejas MD - 01/02/2019 Patient Name: GUILLETIARRACT Fraire Dr: Ozzie Arrington DO, D.O.B: 1970 Exam Date: 01/02/192124 Age: 48 Sex: Female MR#: [id number] Loc: RADIOLOGY REPORT Order #[id number] CT Scan CT Abd/Pelvis W IV Contrast Signed EXAM DESCRIPTION: CT Abd/Pelvis W IV Contrast REASON FOR STUDY: bloody stools shortness of breath and chest discomfort today TECHNIQUE: CT scan of the abdomen and pelvis performed with intravenousand without oral contrast using helical scanning technique with dynamic intravenous contrast injection. Reconstructed coronal and sagittal MPRimages reviewed. All images stored on PACS. Automated exposure control was used as a dose optimization technique forthis examination. CONTRAST TYPE/DOSE: 100 mL Optiray 350 injected via right forearm COMPARISON: None FINDINGS: LOWER CHEST: No significant pulmonary abnormalities. No effusion. LIVER: Normal size. No identified cystic or solid masses. GALLBLADDER: Unremarkable. BILE DUCTS: No intrahepatic or extrahepatic ductal dilatation. SPLEEN: Normal size. No focal lesions. PANCREAS: No identified cystic or solid masses. No significantcalcifications. No adjacent inflammation or peripancreatic fluid collections. Pancreaticduct not dilated. ADRENALS: Normal. KIDNEYS/URINARY TRACT: No identified significant cystic or solid masses.No visualized stones. No hydronephrosis or hydroureter. Symmetricenhancement. Urinary bladder is unremarkable. GI: No dilated bowel loops. No obvious wall thickening. Normal appendix.No significant diverticular disease. Postsurgical changes of gastric bypass surgery. PERITONEUM: No ascites or free air. RETROPERITONEUM: No mass or adenopathy. REPRODUCTIVE: No significant abnormality. Tubal ligation clips. Uterus unremarkable. No adnexal masses. VASCULATURE: No abdominal aortic aneurysm. MUSCULOSKELETAL: No significant abnormality. OTHER: Tiny umbilical hernia containing fat. IMPRESSION: No acute findings in the abdomen or pelvis. THIS IS AN ELECTRONICALLY VERIFIED FINAL REPORT 01/02/2019 10:40 PM - Electronically signed by Avinash Zendejas M.D. RW T: Report ID: [id number] Reading Location: [place] [id number] REPORT ELECTRONICALLY SIGNED IN OTHER VENDOR SYSTEM Ozzie Arrington DO IMG CT PROCEDURES Final Result * (ABNORMAL) B-type natriuretic peptide (01/02/2019 4:32 PM CDT) Pathologist [facility] B-Natriuretic Peptide 419(H) 0 - 100 pg/mL [facility] Comment: B Natriutetic Peptide METHOD: ??[employer] XP using ADONAY. Decision threshold of 100 [...] hours of bolus or infusion of nesiritide. 01/02/2019 4:32 PM CDT 01/02/2019 4:36 PM CDT Narrative Resulting Agency Comment ER Notinfile Unknown LAB BLOOD ORDERABLES Final Res ult [place] [id number] [place] [address], [facility] [phone] * TNI with LIPID PANEL (01/02/2019 4:32 PM CDT) [facility] Troponin I <0.300 0.000 - 0.300 ng/mL [facility] Comment: Reference using [employer] Chemiluminescence ? Negative: Repeat in 4-6 hours as indicated. Triglycerides 79 0 - 149 mg/dL [facility] Comment: National Lipid Association/NCEP Guidelines: ?? Normal ?< 150 mg/dL ?? Borderline high ?? 150-199 mg/dL ?? High ?200-499 mg/dL ?? Very High ? >=500 mg/dL Cholesterol 130 0 - 199 mg/dL [facility] Comment: National Lipid Association/NCEP Guidelines: Desirable ? < 200 mg/dL Borderline high: ??200-239 mg/dL High Risk: ?>=240 mg/dL HDL Cholesterol 65 mg/dL DIGNANasrin [facility] Comment: Reference Ranges: ? Males: >=40 mg/dL ? Females: >=50 mg/dL LDL Cholesterol, Calc 49 0 - 129 mg/dL [facility] Comment: National Lipid Association/NCEP Guidelines: ??Optimal ? < 100 mg/dL ??Near Optimal ?100-129 mg/dL ??Borderline high 130-159 mg/dL ??High ?>=160 mg/dL Cholesterol/HDL Ratio 2.0 [facility] Comment: Optimal ??< 3.5:1 High ? > 5:1 01/02/2019 4:32 PM CDT 01/02/2019 4:36 PM CDT Narrative Resulting Agency Comment ER us Notinfile Unknown LAB BLOOD ORDERABLES Final Res ult [facility] [address] [place] [address], [facility] [phone] * Comprehensive metabolic panel (01/02/2019 4:32 PM CDT) Sodium 140 135 - 145 mmol/L [facility] Potassium 3.4 3.3 - 5.1 mmol/L [facility] Chloride 107 96 - 108 mmol/L [facility] Carbon Dioxide 23 22 - 32 mmol/L [facility] Anion Gap 10 7 - 16 [facility] Glucose 95 70 - 100 mg/dL [facility] BUN 13 8 - 25 mg/dL [facility] Creatinine 0.7 0.5 - 1.1 mg/dL [facility] Comment: NOTE: Estimated GFR (Cockroft-Gault) will NOT be calculated unless patient Height and Weight were entered. Also, Kidney Disease Stage (GFR) and Estimated GFR (Cockroft-Gault) will NOT be calculated if Creatinine result is <0.2. Kidney Disease Stage >90 mL/MIN [facility] Comment: NOTE; ??The GFR is an estimated [...] failure or on dialysis Est GFR (Cockcroft-G) 131 ml/MIN [facility] Comment: Estimated GFR(Cockroft-Gault)is used to calculate patient medication dosage Calcium 9.2 8.6 - 10.3 mg/dL [facility] Total Protein 6.8 6.4 - 8.3 g/dL [facility] Albumin 3.5 3.5 - 5.0 g/dL [facility] Globulin 3.3 2.3 - 3.5 gm/dL [facility] Albumin/Globulin Ratio 1.1 1.1 - 1.8 [facility] Total Bilirubin 0.6 0.0 - 1.2 mg/dL [facility] AST 25 0 - 32 U/L [facility] ALT 10 0 - 33 U/L [facility] Alkaline Phosphatase 75 35 - 104 U/L [facility] 01/02/2019 4:32 PM CDT 01/02/2019 4:36 PM CDT Narrative Resulting Agency Comment ER us Notinfile Unknown LAB BLOOD ORDERABLES Final Res ult [facility] [address] [place] [address], [facility] [phone] * (ABNORMAL) CBC with auto differential (01/02/2019 4:32 PM CDT) WBC 6.8 3.8 - 9.9 X10 3/ul [facility] RBC 3.57(L) 3.90 - 5.20 x10 6/ul [facility] Hemoglobin 7.2(L) 11.9 - 15.5 g/dL [facility] Hct 25.4(L) 35.6 - 45.5 % [facility] MCV 71.1(L) 81.3 - 96.4 fl [facility] MCH 20.2(L) 27.1 - 33.3 pg [facility] MCHC 28.3(L) 32.3 - 35.7 g/dl [facility] RDW 23.9(H) 11.1 - 14.9 % [facility] Plt Count 176 150 - 400 x10 3/ul [facility] MPV 9.4 9.1 - 12.3 fl [facility] Neut % 73.3 % [facility] Immature Gran % 0.3 % [facility] Lymph % 15.2 % [facility] [place] % 7.4 % [facility] Eos % 3.5 % [facility] AUTO BASO % 0.3 % [facility] NEUTROPHIL ABS # 5.0 1.7 - 6.5 x10 3/ul [facility] Immature Gran # 0.0 0.0 - 0.1 x10 3/ul [facility] Absolute Lymphs (auto) 1.0 0.8 - 3.3 x10 3/ul [facility] Absolute Monos (auto) 0.5 0.2 - 0.8 x10 3/ul [facility] Absolute Eos (auto) 0.2 0.0 - 0.5 x10 3/ul [facility] BASOPHIL ABS # 0.0 0.0 - 0.1 x10 3/ul [facility] Nucleat RBC Rel Count 0.0 #/100WBC [facility] NRBC abs 0.00 0.00 - 0.01 x10 3/ul [facility] Absolute Neutrophils 5,000 200 - 8,000 /ul [facility] 01/02/2019 4:32 PM CDT 01/02/2019 4:36 PM CDT Narrative Resulting Agency Comment ER us Notinfile Unknown LAB BLOOD ORDERABLES Final Res ult Performing Organization Address City/[facility]/ZIP Co de Phone Number [address] [phone] * ECG 12 lead (01/02/2019 4:21 PM CDT) Ventricular Rate EKG/Min 81 BPM ER [facility] Atrial Rate 81 BPM [facility] OR-Interval (MSEC) 166 ms [facility] QRS-Interval (MSEC) 84 ms [facility] QT-Interval (MSEC) 404 ms [facility] QTc 469 ms ER RADIOLOG[facility] P [place] 54 degrees ER RADIOLOGY R [place] -9 degrees ER RADIOLOGY T [place] 20 degrees ER RAD[facility] Diagnosis Normal sinus rhythm Normal ECG When compared with ECG of 21-NOV-2018 21:54, No significant change was found [facility] 01/02/2019 4:21 PM CDT 01/02/2019 7:07 PM CDT Narrative Resulting Agency Comment SAURABH us Notinfile Unknown ECG ORDERABLES Final Result Performing Organization Address City/[facility]/ZIP Co de Phone Number ER RADIOLOGY * XR Chest 1 View (01/02/2019 12:00 AM CDT) Anatomical Region Laterality Modality Body, Chest N/A Radiographic Alexsandra ging 01/02/2019 5:07 PM CDT Narrative 01/02/2019 5:08 PM CDT Patient Name: TIARRA ADDISON ?Ordering Dr: PERSONAL PHYSICIAN,NO ?? D.O.B: 1970 ? Exam Date: 01/02/19 ?? 0000 ?? Age: 48 ?Sex: Female ? MR#: [id number] ?? Loc: ? RADIOLOGY REPORT ?? Order #[id number] ?? Radiology ? Chest 1 View Portable ? Signed ?? EXAM DESCRIPTION: ??Chest 1 View Portable ? REASON FOR STUDY: ??Cough, shortness of breath, chest pain for 24 hours. ? Diarrhea for 3 days. ??Dizziness, headaches, bloody stool today. ??History of ?? hypertension. ? TECHNIQUE: ??Frontal radiographic view of the chest acquired. ? COMPARISON: ??CTA chest 11/22/2018. ??Chest radiograph 11/21/2018. ? FINDINGS: ? LUNGS/PLEURA: No focal consolidation or pneumothorax. No pleural effusion. ? HEART/MEDIASTINUM: Heart size is normal. Normal mediastinal and hilar contours. ? HARDWARE/LINES/TUBES: None. ? BONES: No acute findings. ? OTHER: No other significant finding. ? IMPRESSION: ??No radiographic evidence of an acute cardiopulmonary abnormality. ? THIS IS AN ELECTRONICALLY VERIFIED FINAL REPORT ?? 01/02/2019 5:08 PM - Electronically signed by Jesse Kearney M.D. ?? Jesse Kearney M.D. ? MD ?? D: ??01/02/2019 5:08 PM ?? T: ? Report ID: [id number] ?? Reading Location: ??[id number] ? REPORT ELECTRONICALLY SIGNED IN OTHER VENDOR SYSTEM ?? 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 Diarrhea for 3 days. Dizziness, headaches, bloody stool today. Historyof hypertension. TECHNIQUE: Frontal radiographic view of the chest acquired. COMPARISON: CTA chest 11/22/2018. Chest radiograph 11/21/2018. FINDINGS: LUNGS/PLEURA: No focal consolidation or pneumothorax. No pleuraleffusion. HEART/MEDIASTINUM: Heart size is normal. Normal mediastinal and hilarcontours. HARDWARE/LINES/TUBES: None. BONES: No acute findings. OTHER: No other significant finding. IMPRESSION: No radiographic evidence of an acute cardiopulmonaryabnormality. THIS IS AN ELECTRONICALLY VERIFIED FINAL REPORT 01/02/2019 5:08 PM - Electronically signed by Jesse Kearney M.D., MD T: Report ID: [id number] Reading Location: [place] [address] REPORT ELECTRONICALLY SIGNED IN OTHER VENDOR SYSTEM us Notinfile Unknown IMG XR PROCEDURES Final Result documented in this encounter Visit Diagnoses Not on filedocumented in this encounter Care Teams Real Estate Professional Relationship Specialty Start Date End Date Gerard Sutton MD PCP - General 11/21/18 03/27/20 Unknown, Notinfile 02/18/18 03/27/20 documented as of this encounter
--- OUTSIDE RECORDS SUMMARY | 2024-03-24 18:55 | XMS_ITS | Encounter Summary ---
Author Organization [facility] Healthcare Address [facility] [place] [address] Care Team Providers Care Gizzard Peeler Name Role Phone Unknown, Notinfile Primary Care Provider Unavail able Unknown, Notinfile Unavailable Unavailable Reason for Visit * Reason Comments Chest Pain Shortness of Breath Encounter Details Date Type Department Care Team (Late st Contact Info) Description 04/22/2018 5:50 AM FEED HOUSE SUPERVISOR - 04/22/2018 1:47 PM FEED HOUSE SUPERVISOR Emergency [facility] Emergency Department [address] [place] [address] Rashad Hernandez MD PhD [address] [place] [address] Tex Guido MD [address] [place] [address] Chest pain, unspecified type (Primary Dx) Discharge Disposition: Discharge to home [...] Sign Reading Time Taken Comments Blood Pressure 125/82 04/22/2018 9:00 AM FEED HOUSE SUPERVISOR Pulse 82 04/22/2018 9:00 AM FEED HOUSE SUPERVISOR Temperature 36.7 ??C (98.1 ??F) 04/22/2018 3:01 AM CS T Respiratory Rate 18 04/22/2018 5:55 AM FEED HOUSE SUPERVISOR Oxygen Saturation 100% 04/22/2018 9:00 AM FEED HOUSE SUPERVISOR Inhaled Oxygen Concentration - - Weight 145.2 kg (320 lb) 04/22/2018 3:01 AM FEED HOUSE SUPERVISOR Height 170.2 cm (5' 7 ) 04/22/2018 3:01 AM FEED HOUSE SUPERVISOR Body Mass Index 50.12 04/22/2018 3:01 AM FEED HOUSE SUPERVISOR documented in this encounter Discharge Instructions * Discharge Instructions* Fartun Marks NP - 04/22/2018 11:21 AM FEED HOUSE SUPERVISOR As discussed, your cardiac work up here is unremarkable. Your chest wall pain is likely related to recent bronchitis and coughing. You will be provided with the contact information for the medicine clinic as a resource to establish a primary care physician. Take the prescribed 600 mg Ibuprofen up to 4 times daily for chest soreness. HOUSE SUPERVISOR * Attachments The following attachments cannot be sent through Care Everywhere. * Chest Pain, Noncardiac (Divehi) documented in this encounter Medications at Time [...] daily. 04/29/2019 documented as of this encounter Ordered Prescriptions Prescription Sig Dispense Quantity Refills Last Filled Start Date End Date ibuprofen (ADVIL,MOTRIN) 600 mg tablet Take 1 tablet (600 mg total) by mouth 4 (four) times a day as needed for pain. Take with food. 30 tablet 04/22/2018 04/29/2019 documented in this encounter Discharge Disposition Disposition Code Departure Means Destination Discharge to home or self care documented in this encounter ED Notes * Luis Carlos Mcintyre RN - 04/22/2018 10:52 AM CST Bed: OBS-06 Expected date: Expected time: Means of arrival: Comments: Rudy: Jayy Mcintyre RN 04/22/18 1052 HOUSE SUPERVISOR * Rashad Hernandez MD - 04/22/2018 7:01 AM CST ATTENDING NOTE 47-year-old with past medical history of DVTs in chronic lower extremity lymphedema, on Xarelto, hypertension, and obesity. Presents to the emergency department complaining of left upper chest discomfort and shortness of breath that began while seated, AC no at approximately 10:30 last night. Minimally improved since that time. No change with inspiration or movement. Diagnosed with bronchitis 2 or 3 weeks ago and mild cough has persisted. No fever. No change in chronically right greater than left lower extremity edema. States compliance with Xarelto. No recent, antecedent change in exertionaltolerance. Last stress test was in 2013, and did not show blockage, per patient report. Cardiac cath eterization many years ago. Physical examination is notable for slightly elevated blood pressure nodistress. Left upper chest tenderness that is similar to, but not identical to presenting symptoms.Lungs clear. Abdomen obese and benign. Marked (3 to 4+) right greater than left lower extremity edema, which patient states is at baseline. ASSESSMENT/PLAN: Atypical chest discomfort in patient with coronary risk factors. Favor EKG and single troponin, given duration of symptoms, and because patient does not have established primary carefollow-up (recently relocated to this location), favor stress test from observation unit. Rashad Hernandez MD 04/22/18 0704 HOUSE SUPERVISOR * Greta Aragon MD - 04/22/2018 6:05 AM CST HPI Chief Complaint Patient presents with ??? Chest Pain ??? Shortness of Breath HPI Tiarra is a 47 year old female with HTN, PSA, chronic lymphedema and DVT (on xarelto), here with left chest pain. [place], and around 10PM began to have left sided chest and arm pain. It was not improving, and so she presented to [facility] ED. She reports that she also has had ongoing cough which she reports has been going on for 3 weeks. She states she is using an inhaler for it, but does not have asthma. She has already been treated with antibiotics and steroids, but she states it did not improve her symptoms. She is not having fevers or chills, and doesnot feel short of breath. She is supposed to take a number of medications, which she has been out of for about a month including lasix and her antihypertensive (which she cannot recall the name of). Patient History Patient Active Problem List Diagnosis Date Noted ??? alcohol use disorder ([facility]) 02/04/2018 ??? 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 Cognitive and behavioral changes 02/04/2018 ??? History of DVT (deep vein thrombosis) 02/04/2018 ??? Chronic acquired lymphedema 02/04/2018 ??? Hypertension 02/04/2018 ??? Anemia 02/04/2018 ??? Polysubstance abuse ([facility]) 02/04/2018 Past Medical History: Diagnosis Date ??? Cellulitis ??? DVT (deep venous thrombosis) ([facility]) ??? Hypertension ??? Lymph edema Past Surgical History: Procedure Laterality Date ??? SECTION ??? GASTRIC BYPASS Family History Problem Relation Age of Onset ??? Diabetes Mother ??? Hypertension Mother ??? Diabetes Father ??? Hypertension Father Social History Substance Use Topics ??? Smoking status: Never Smoker ??? Smokeless tobacco: Never Used ??? Alcohol use Yes Social History Social History Narrative Merged History Encounter Born and raised in [place] [place] [facility], no abuse during childhood, has masters degree in finance. Living with son, unemployed, has firearms at home. Has 3 children oldest is 33, youngest is 9. Significant substance use, alcohol, pain pills, marijuana , see HPI for more details. Denies legal history, single, twice. Review of Systems Review of Systems Constitutional: Negative for chills and fever. HENT: Negative for ear pain, rhinorrhea and sore throat. Eyes: Negative for pain and visual disturbance. Respiratory: Positive for cough. Negative for shortness of breath. Cardiovascular: Positive for chest pain and leg swelling. Negative for palpitations. Gastrointestinal: Negative for abdominal pain and vomiting. Genitourinary: Negative for dysuria and hematuria. Musculoskeletal: Negative for arthralgias and back pain. Skin: Negative for color change and rash. Neurological: Negative for seizures and syncope. All other systems reviewed and are negative. Physical Exam ED Triage Vitals [04/22/18 0301] Temp Pulse Resp BP SpO2 36.7 ??C (98.1 ??F) 80 16 152/90 97 % Temp src Heart Rate Source Patient Position BP Location FiO2 (%) Oral -- -- -- -- Physical Exam Constitutional: She is oriented to person, place, and time. She appears well- developed and well-nourished. No distress. obese HENT: Head: Normocephalic and atraumatic. Mouth/Throat: Oropharynx is clear and moist. No oropharyngeal exudate. Eyes: Pupils are equal, round, and reactive to light. Conjunctivae and EOM are normal. No scleral icterus. Neck: Normal range of motion. Neck supple. No JVD present. No tracheal deviation present. Cardiovascular: Normal rate, regular rhythm, normal heart sounds and intact distal pulses. No murmur heard. Pulmonary/Chest: Effort normal and breath sounds normal. No respiratory distress. She has no wheezes. Occasional non productive cough Abdominal: Soft. Bowel sounds are normal. She exhibits no distension. There is no tenderness. Musculoskeletal: She exhibits tenderness and deformity. She exhibits no edema. Obvious lymphedema in lower extremities Lymphadenopathy: She has no cervical adenopathy. Neurological: She is alert and oriented to person, place, and time. She displays normal reflexes. No cranial nerve deficit. Coordination normal. Skin: Skin is warm and dry. Capillary refill takes less than 2 seconds. Psychiatric: She has a normal mood and affect. Nursing note and vitals reviewed. MDM MDM Number of Diagnoses or Management Options Diagnosis management comments: 47 year old woman with HTN, lymphedema, DVT and polysubstance use, who presents with just under 12 hours of left sided chest pain as well as with ongoing cough despite treatment with antibiotics and steroids (per her report). Regarding her cough, she does not have associated symptoms and her lungs are very clear. Potential for pulmonary edema (if she is fluid overloaded from not taking lasix, but no documented cardiac insufficiency), pneumonia but these seem less likely with her normal exam. Will obtain CXR to ensure no obvious abnormality. Regarding her chest pain, although she has had EKG and troponin in the past with similar symptoms, she has not had a formal stress test. Likely the chest pain is MSK from her coughing. Will plan to do CBC, BMP and troponin, as well as EKG (no obvious abnormality). Will plan for stress test. Attending Summary of Care Chest pain, unspecified type Greta Aragon MD Resident 04/22/18 0728 Cosigned by Rashad Hernandez MD at 04/22/2018 7:39 AM FEED HOUSE SUPERVISOR HOUSE SUPERVISOR HOUSE SUPERVISOR Associated attestation - Rashad Hernandez MD PhD - 04/22/2018 7:39 AM FEED HOUSE SUPERVISOR I have seen and examined the patient (22Apr2018). I reviewed the resident's note and agree with thefindings and plan of care as documented in the resident's note unless I have documented otherwise. * Vero Trujillo RN - 04/22/2018 5:50 AM CST Bed: ED2-23 Expected date: Expected time: Means of arrival: Ambulance Comments: Vero Trujillo RN 04/22/18 0550 HOUSE SUPERVISOR * Sascha Robles RN - 04/22/2018 3:05 AM CST Pt to ED w L sided throbbing CP that radiates to L arm w SOB while at the [facility]. Pt admitsto similar symptoms in the past that were anxiety related. Pt w hx of anxiety, HTN and DVT that sheis on xarelto for HOUSE SUPERVISOR * Sascha Robles RN - 04/22/2018 3:03 AM CST Pt to ED w L sided throbbing CP that radiates to L arm w SOB while at the [facility] tonight. Pt admitsto similar symptoms in the past that were anxiety related. Hx of HTN and anxiety HOUSE SUPERVISOR documented in this encounter Miscellaneous Notes * ED Observation Provider Note - Fartun Marks NP - 04/22/2018 11:22 AM FEED HOUSE SUPERVISOR Patient does not meet observation criteria as she was transferred to obs while awaiting results of NM stress, results in chart as patient entered room. Patient does not meet criteria for obs admission. Spoke with attending and plan is to discharge patient with NSAIDS for pain/discomfort. Patient agreeable to plan. HOUSE SUPERVISOR * ED Re-evaluation Note - Tex Guido MD - 04/22/2018 7:04 AM FEED HOUSE SUPERVISOR ED Re-evaluation From Dr Hernandez. 47 obese le dvt (rt) , xeralto, bilateral le lymphedema, htn. Out of meds. Cp at [facility] last night. + sob. Benign exam mild htn,. L;eft chest soreness, chronic lymphedema PLAN 1) trop x 1 2) if neg, Pain mibi 3) if neg, dc home Tex Guido MD 04/22/18 0705 HOUSE SUPERVISOR * ED Procedure Note - Cadence Turcios MD - 04/22/2018 3:13 AM FEED HOUSE SUPERVISOR Associated Order(s): ECG 12-LEAD Procedure ECG 12 lead Date/Time: 04/22/2018 3:13 AM Performed by: CADENCE TURCIOS Authorized by: CADENCE TURCIOS Rate: ECG rate: 75 ECG rate assessment: normal Rhythm: Rhythm: sinus rhythm Ectopy: Ectopy: none QRS: QRS axis: Normal QRS intervals: Normal Conduction: Conduction: normal ST segments: ST segments: Normal T waves: T waves: non-specific and inverted Previous ECG: Previous ECG: Compared to current Date of previous EC03/26/2018 Similarity: No change Interpretation: Interpretation: non-specific Recommended Follow-up: Recommended follow up: further workup in the ED Cadence Turcios MD 04/22/18 0315 HOUSE SUPERVISOR documented in this encounter Plan of Treatment Not on file documented as of this encounter Procedures Procedure Name Priority Date/Time Associated Diagnosis Comments NM MPI SPECT (STRESS) SINGLE STUDY IP Routine 04/22/2018 10:46 AM FEED HOUSE SUPERVISOR DIFFERENTIAL AUTO STAT 04/22/2018 7:1 5 AM FEED HOUSE SUPERVISOR CBC WITH AUTO DIFFERENTIAL STAT 04/22/2018 7:15 AM FEED HOUSE SUPERVISOR TROPONIN I STAT 04/22/2018 7:15 AM FEED HOUSE SUPERVISOR BASIC METABOLIC PANEL STAT 04/22/2018 7:15 AM FEED HOUSE SUPERVISOR XR CHEST PA LATERAL 2 VIEWS ED Urgent/IP Urgent 04/22/2018 7:10 AM FEED HOUSE SUPERVISOR ECG 12-LEAD STAT 04/22/2018 3:13 AM FEED HOUSE SUPERVISOR documented in this encounter Results * NM MPI SPECT (Rest or Stress or Pain) Single Study (04/22/2018 10:46 AM FEED HOUSE SUPERVISOR) Anatomical Region Laterality Modality Body N/A Nuclear Medicine 04/22/2018 10:5 0 AM FEED HOUSE SUPERVISOR Impressions 04/22/2018 12:06 PM FEED HOUSE SUPERVISOR 1. ??Normal rest myocardial perfusion. 2. ??Normal left ventricular size and systolic function. Dr. David (s) ??also participated in the interpretation of this examination. Dictated by: Evelyn Corley M.D. Electronically signed by: Job Villa M.D. Narrative 04/22/2018 12:06 PM FEED HOUSE SUPERVISOR EXAMINATION: ??MYOCARDIAL IMAGING (REST/SPECT-CT) ?? DATE OF STUDY: 04/22/2018 RADIOPHARMACEUTICAL: 34.33 mCi Tc-99m tetrofosmin i.v. HISTORY: 47-year-old female with a history of hypertension, obesity, and deep venous thromboses presenting with acute left-sided chest pain and shortness of breath. FINDINGS: ??Standard myocardial perfusion images obtained after injection of tracer ??under resting conditions while the patient was having chest pain.. Images were obtained in a ??supine position. Low-dose CT images spanning the heart were obtained for attenuation correction. COMPARISON: No relevant priors are available for comparison. The images demonstrate uniform distribution of activity in the left ventricular myocardium. Gated images demonstrate normal left ventricular wall thickening. The left ventricular volume is normal and the left ventricular ejection fraction is 55% (normal >45%). Incidental findings on the low-dose CT images: Sequelae of prior granulomatous disease. Procedure Note Job Villa MD - 04/22/2018 EXAMINATION: MYOCARDIAL IMAGING (REST/SPECT-CT) DATE OF STUDY: 04/22/2018 RADIOPHARMACEUTICAL: 34.33 mCi Tc-99m tetrofosmin i.v. HISTORY: 47-year-old female with a history of hypertension, obesity, and deep venous thromboses presenting with acute left-sided chest pain and shortness of breath. FINDINGS: Standard myocardial perfusion images obtained after injection of tracer under resting conditions while the patient was having chest pain.. Images were obtained in a supine position. Low-dose CT images spanning the heart were obtained for attenuation correction. COMPARISON: No relevant priors are available for comparison. The images demonstrate uniform distribution of activity in the left ventricular myocardium. Gated images demonstrate normal left ventricular wall thickening. The left ventricular volume is normal and the left ventricular ejection fraction is 55% (normal >45%). Incidental findings on the low-dose CT images: Sequelae of prior granulomatous disease. IMPRESSION: 1. Normal rest myocardial perfusion. 2. Normal left ventricular size and systolic function. Dr. David (s) also participated in the interpretation of this examination. Dictated by: Evelyn Corley M.D. Electronically signed by: Job Villa M.D. [facility] Kwabena Guido MD IMG NM PROCEDURES Final Result * Differential, auto (04/22/2018 7:15 AM FEED HOUSE SUPERVISOR) Neutrophil abs 5.0 1.7 - 6.5 K/cumm [facility] Imm gran abs 0.0 0.0 - 0.1 K/cumm [facility] Lymphocyte abs 1.6 0.8 - 3.3 K/cumm [facility] Monocyte abs 0.7 0.2 - 0.8 K/cumm [facility] Eosinophil abs 0.4 0.0 - 0.5 K/cumm [facility] Basophil abs 0.0 0.0 - 0.1 K/cumm [facility] Neutrophil pct 64.8 % [facility] Comment: Interpretive Data Percent cell count reference ranges are not reported, since discordance with absolute values may lead to misinterpretation of CBC data. Current Interpretive Data was last revised on 2017. Imm gran pct 0.3 % [facility] Comment: Interpretive Data Percent cell count reference ranges are not reported, since discordance with absolute values may lead to misinterpretation of CBC data. Current Interpretive Data was last revised on 2017. Lymphocyte pct 20.8 % [facility] Comment: Interpretive Data Percent cell count reference ranges are not reported, since discordance with absolute values may lead to misinterpretation of CBC data. Current Interpretive Data was last revised on 2017. Monocyte pct 8.7 % [facility] Comment: Interpretive Data Percent cell count reference ranges are not reported, since discordance with absolute values may lead to misinterpretation of CBC data. Current Interpretive Data was last revised on 2017. Eosinophil pct 5.1 % [facility] Comment: Interpretive Data Percent cell count reference ranges are not reported, since discordance with absolute values may lead to misinterpretation of CBC data. Current Interpretive Data was last revised on 2017. Basophil pct 0.3 % [facility] Comment: Interpretive Data Percent cell count reference ranges are not reported, since discordance with absolute values may lead to misinterpretation of CBC data. Current Interpretive Data was last revised on 2017. Blood specimen (specimen) 04/22/2018 7:15 AM FEED HOUSE SUPERVISOR 04/22/2018 7:27 AM FEED HOUSE SUPERVISOR Narrative [facility] - 04/22/2018 7:39 AM [facility] us Greta Aragon MD LAB BLOOD ORDERABLES Final R esult Performing Organization Address [facility]/ZIP Co de Phone Number [facility] Department [place] [address] * Troponin I (04/22/2018 7:15 AM FEED HOUSE SUPERVISOR) Troponin I <0.03 0.00 - 0.03 ng/mL [facility] Comment: Interpretive Data: Normal plasma Troponin I concentrations can reach 1 ng/mL in the first two weeks of life and slowly decrease to adult levels (<0.03 ng/mL) by the age of 3 months. > 3 months ??<0.03 ng/mL > or = 18 years Serial determinations are recommended for the diagnosis of myocardial infarction. ??Temporal rise and fall are consistent with myocardial infarction when at least one value is above the 99th percentile upper reference limit for Troponin assay. References: 1. Clin Chem 2013;59:1139-4392 2. Journal of the [place] [employer] 2012;60:1581-98 Current Interpretive Data Last Revised Date: 2017. Blood specimen (specimen) 04/22/2018 7:15 AM FEED HOUSE SUPERVISOR 04/22/2018 7:27 AM FEED HOUSE SUPERVISOR Narrative [facility] - 04/22/2018 8:28 AM FEED HOUSE SUPERVISOR [facility] COLLECTION [facility]ATION [facility] us Greta Aragon MD LAB BLOOD ORDERABLES Final R esult Performing Organization Address City/[facility]/ZIP Co de Phone Number [facility] Department [place] [address] * Basic metabolic panel (04/22/2018 7:15 AM FEED HOUSE SUPERVISOR) Sodium 139 135 - 145 mmol/L [facility] Potassium, pl 4.5 3.3 - 4.9 mmol/L [facility] Chloride 103 97 - 110 mmol/L [facility] CO2 26 22 - 32 mmol/L [facility] Anion gap 10 2 - 15 mmol/L [facility] BUN 15 8 - 25 mg/dL [facility] Creatinine 0.84 0.60 - 1.10 mg/dL [facility] Glucose 75 70 - 199 mg/dL [facility] Comment: Interpretive Data Fasting [...] interpretive data was last revised 2017. Calcium 9.3 8.5 - 10.3 mg/dL [facility] Blood specimen (specimen) 04/22/2018 7:15 AM FEED HOUSE SUPERVISOR 04/22/2018 7:27 AM FEED HOUSE SUPERVISOR Narrative [facility] - 04/22/2018 8:06 AM FEED HOUSE SUPERVISOR THE COLLECTION LOCATION IS [facility] ED2-23 us Greta Aragon MD LAB BLOOD ORDERABLES Final R esult [facility] [place] [address] * (ABNORMAL) CBC with auto differential (04/22/2018 7:15 AM FEED HOUSE SUPERVISOR) Pathologist [facility] WBC 7.8 3.8 - 9.9 K/cumm [facility] Hgb 8.2(L) 11.9 - 15.5 g/dL [facility] Hct 28.9(L) 35.6 - 45.5 % [facility] Plt 297 150 - 400 K/cumm [facility] MPV 10.1 9.1 - 12.3 fL [facility] RBC 3.89(L) 3.90 - 5.20 M/cumm [facility] MCV 74.3(L) 81.3 - 96.4 fL [facility] MCH 21.1(L) 27.1 - 33.3 pg [facility] MCHC 28.4(L) 32.3 - 35.7 g/dL [facility] RDW CV 17.4(H) 11.1 - 14.9 % [facility] RDW SD 46.4 35.7 - 48.1 fL [facility] NRBC abs 0.00 0.00 - 0.01 K/cumm [facility] Blood specimen (specimen) 04/22/2018 7:15 AM FEED HOUSE SUPERVISOR 04/22/2018 7:27 AM FEED HOUSE SUPERVISOR Narrative [facility] - 04/22/2018 7:39 AM FEED HOUSE SUPERVISOR THE COLLECTION LOCATION IS [facility] ED2-23 us Greta Aragon MD LAB BLOOD ORDERABLES Final R esult [facility] One [facility] [place] [address] * XR Chest Pa Lateral 2 Vw (04/22/2018 7:10 AM FEED HOUSE SUPERVISOR) Anatomical Region Laterality Modality Body, Chest N/A Computed Radiogr aphy 04/22/2018 7:24 AM FEED HOUSE SUPERVISOR Impressions 04/22/2018 11:24 AM FEED HOUSE SUPERVISOR Comparison made to prior study dated 03/26/2018. The lungs are clear. ??Specifically, there is no pneumonia, pulmonary edema, pleural effusion, or pneumothorax. ??The cardiomediastinal silhouette is normal. Dictated by: Olivier Andrade M.D. Electronically signed by: Beka Joe M.D. Narrative 04/22/2018 11:24 AM FEED HOUSE SUPERVISOR EXAMINATION: 2 view chest radiograph HISTORY: 47-year-old woman with three weeks of cough, one day of left-sided chest pain. Procedure Note Beka Joe MD - 04/22/2018 EXAMINATION: 2 view chest radiograph HISTORY: 47-year-old woman with three weeks of cough, one day of left-sided chest pain. IMPRESSION: Comparison made to prior study dated 03/26/2018. The lungs are clear. Specifically, there is no pneumonia, pulmonary edema, pleural effusion, or pneumothorax. The cardiomediastinal silhouette is normal. Dictated by: Olivier Andrade M.D. Electronically signed by: Beka Joe M.D. us Greta Aragon MD IMG XR PROCEDURES Final Resu lt * ECG 12-LEAD (04/22/2018 3:13 AM FEED HOUSE SUPERVISOR) Narrative [facility] - 04/22/2018 3:13 AM FEED HOUSE SUPERVISOR Cadence Turcios MD ? 04/22/2018 ??3:15 AM ECG 12 lead Date/Time: 04/22/2018 3:13 AM Performed by: CADENCE TURCIOS Authorized by: CADENCE TURCIOS Rate: ??ECG rate: ??75 ??ECG rate assessment: normal ?? Rhythm: ??Rhythm: sinus rhythm ?? Ectopy: ??Ectopy: none ?? QRS: ??QRS axis: ??Normal ??QRS intervals: ??Normal Conduction: ??Conduction: normal ?? ST segments: ??ST segments: ??Normal T waves: ??T waves: non-specific and inverted ?? Previous ECG: ??Previous ECG: ??Compared to current ??Date of previous ECG: ??03/26/2018 ??Similarity: ??No change Interpretation: ??Interpretation: non-specific ?? Recommended Follow-up: ??Recommended follow up: further workup in the ED ?? Procedure Note Cadence Turcios MD - 04/22/2018 3:13 AM CST Procedure ECG 12 lead Date/Time: 04/22/2018 3:13 AM Performed by: CADENCE TURCIOS Authorized by: CADENCE TURCIOS Rate: ECG rate: 75 ECG rate assessment: normal Rhythm: Rhythm: sinus rhythm Ectopy: Ectopy: none QRS: QRS axis: Normal QRS intervals: Normal Conduction: Conduction: normal ST segments: ST segments: Normal T waves: T waves: non-specific and inverted Previous ECG: Previous ECG: Compared to current Date of previous EC03/26/2018 Similarity: No change Interpretation: Interpretation: non-specific Recommended Follow-up: Recommended follow up: further workup in the ED Cadence Turcios MD 04/22/18 0315 us Rashad Hernandez MD PhD ECG ORDERABLES Fin al Result Performing Organization Address City/State/[facility] Co ak Phone Number [facility] documented in this encounter Visit Diagnoses Diagnosis Chest pain, unspecified type- Primary documented in this encounter Administered Medications Inactive Administered Medications - up to 3 most recent administrations Medication Order MAR Action Action Date Dose Rate Site acetaminophen (TYLENOL) tablet 1,000 mg 1,000 mg, oral, Once, On Sat04/22/18 at 1204, For 1 dose Given 04/22/2018 12:09 PM [employer]PER[employer] 1,000 mg ketorolac (TORADOL) injection 30 mg 30 mg, intravenous, Once, On Sat04/22/18 at 0917, For 1 dose, For Adult IV push, administer over 15 seconds Given 04/22/2018 9:21 AM [employer] 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 Scheduled Medication Order 04/20/2018 04/21/2018 04/22/2018 acetaminophen (TYLENOL) tablet 1,000 mg (COMPLETED) 1,000 mg, oral, Once, On Sat04/22/18 at 1204, For 1 dose 1209 (Given - Provid er: Bree Burns RN) ketorolac (TORADOL) injection 30 mg (COMPLETED) 30 mg, intravenous, Once, On Sat04/22/18 at 0917, For 1 dose, For Adult IV push, administer over 15 seconds 0921 (Given - Provid er: Christina Aguilar RN) PRN Medication Order 04/20/2018 04/21/2018 04/22/2018 tc-99m tetrofosmin (MYOVIEW) injection 30 millicurie (COMPLETED) 30 millicurie, intravenous, Once in imaging, radiopharmaceutical, Starting on Sat04/22/18 at 0855, For 1 dose, Indications: Diagnostic Radiography 0900 (Given - Provid er: Neftali Shelby, RT) documented in this encounter Orders IV Count Last Ordered Date First Orde red Date INSERT PERIPHERAL IV 1 04/22/2018 documented in this encounter Care Teams Gizzard Peeler Relationship Specialty Start Date End Date Unknown, Notinfile PCP - General 02/18/18 10/24/18 Unknown, Notinfile 02/18/18 03/27/20 documented as of this encounter
--- OUTSIDE RECORDS SUMMARY | 2024-03-24 18:55 | XMS_ITS | Encounter Summary ---
Author Organization [facility] Healthcare Address [address] [place] [address] Care Team Providers Care Criminal Profiler Name Role Phone Unknown, Notinfile Primary Care Provider Unavail able Unknown, Notinfile Unavailable Unavailable Encounter Details Date Type Department Care Team (Latest Contact Info) Description 04/16/2018 3:38 AM [employer] - 04/16/2018 5:41 AM [employer] Hospital Encounter [facility] Jem Yun, DO [address] [place] [address] Chest pain; Shortness of breath; Cough; Essential (primary) hypertension; Personal history of pulmonary embolism; retirement current use of anticoagulant; Family history of diabetes mellitus; Family history of ischemic heart disease and other diseases of the circulatory system Social History Tobacco Use Types Packs/Day Years [...] Sign Reading Time Taken Comments Blood Pressure 120/76 04/16/2018 3:39 AM [employer] Pulse 80 04/16/2018 3:39 AM [employer] Temperature 36.8 ??C (98.2 ??F) 04/16/2018 3:39 AM CS T Respiratory Rate - - Oxygen Saturation 95% 04/16/2018 3:39 AM [employer] Inhaled Oxygen Concentration - - Weight 160 kg (352 lb 11.8 oz) 04/16/2018 3:39 A M [employer] Height 170.2 cm (5' 7 ) 04/16/2018 3:39 AM [employer] Body Mass Index 55.25 04/16/2018 3:39 AM [employer] documented in this encounter Medications at Time [...] (six) hours as needed for pain. 04/29/2019 losartan-hydroCH LOROthiazide (HYZAAR) 50-12.5 mg per [...] daily. 04/29/2019 documented as of this encounter Plan of Treatment Not on file documented as of this encounter Procedures Procedure Name Priority Date/Time Associated Diagnosis Comments TNI WITH LIPID PANEL Routine 04/16/2018 3:50 AM [employer] CBC WITH AUTO DIFFERENTIAL Routine 04/16/2018 3:50 AM [employer] CRP (ACUTE PHASE) Routine 04/16/2018 3:5 0 AM [employer] B-TYPE NATRIURETIC PEPTIDE Routine 04/16/2018 3:50 AM [employer] MAGNESIUM Routine 04/16/2018 3:50 AM [employer] LIPASE Routine 04/16/2018 3:50 AM [employer] CREATINE KINASE (CK), TOTAL Routine 04/16/2018 3:50 AM [employer] COMPREHENSIVE METABOLIC PANEL Routine 04/16/2018 3:50 AM [employer] XR CHEST 1 VIEW Routine 04/16/2018 12:00 AM [employer] documented in this encounter Results * TNI with LIPID PANEL (04/16/2018 3:50 AM [employer]) Troponin I < 0.300 0.000 - 0.300 ng/mL Comment: Reference using [place] Chemiluminescence ? Negative: Repeat in 4-6 hours as indicated. Triglycerides 111 0 - 149 mg/dL Comment: National Lipid Association/NCEP Guidelines: ?? Normal ?< 150 mg/dL ?? Borderline high ?? 150-199 mg/dL ?? High ?200-499 mg/dL ?? Very High ? >=500 mg/dL Cholesterol 131 0 - 199 mg/dL Comment: National Lipid Association/NCEP Guidelines: Desirable ? < 200 mg/dL Borderline high: ??200-239 mg/dL High Risk: ?>=240 mg/dL HDL Cholesterol 59 mg/dL 9 4:26 AM [facility] HISTORICAL RESULTS Comment: Reference Ranges: ? Males: >=40 mg/dL ? Females: >=50 mg/dL LDL Cholesterol, Calc 50 0 - 129 mg/dL Comment: National Lipid Association/NCEP Guidelines: ??Optimal ? < 100 mg/dL ??Near Optimal ?100-129 mg/dL ??Borderline high 130-159 mg/dL ??High ?>=160 mg/dL Cholesterol/HDL Ratio 2.2 Comment: Optimal ??< 3.5:1 High ? > 5:1 04/16/2018 3:50 AM [employer] 04/16/2018 3:57 AM [employer] us Jem Yun DO LAB BLOOD ORDERABLES Final Result [facility] HISTORICAL RESULTS * Magnesium (04/16/2018 3:50 AM [employer]) Magnesium 2.0 1.6 - 2.6 mg/dL Comment:Magnesium sulfate th erapy: 3.0-9.1 mg/dL 04/16/2018 3:50 AM [employer] 04/16/2018 3:57 AM [employer] [facility] Final Result Performing Organization Address [facility] de Phone Number [facility] HISTORICAL RESULTS * Lipase (04/16/2018 3:50 AM [employer]) Pathologist [facility] Lipase 16 13 - 60 U/L 04/16/2018 3:50 AM [employer] 04/16/2018 3:57 AM [employer] Jem Yun LAB BLOOD ORDERABLES Final Result Performing Organization Address [facility] Phone Number [facility] HISTORICAL RESULTS * (ABNORMAL) CRP (acute phase) (04/16/2018 3:50 AM [employer]) Pathologist [facility] C-Reactive Protein 15.7(H) 0.0 - 4.9 mg/L 04/16/2018 3:50 AM [employer] 04/16/2018 3:57 AM [employer] [facility]em [facility] BLOOD ORDERABLES Final Result Performing Organization Address [facility] de Phone Number [facility] HISTORICAL RESULTS * (ABNORMAL) Comprehensive metabolic panel (04/16/2018 3:50 AM [employer]) Pathologist [facility] Sodium 138 135 - 145 mmol/L Potassium 4.3 3.3 - 5.1 mmol/L Chloride 103 96 - 108 mmol/L 04/16/2018 4:26 AM [employer] [facility] [employer] HISTORICAL RESULTS Carbon Dioxide 21(L) 22 - 32 mmol/L 04/16/2018 4:26 AM [employer] [facility] [employer] [facility] HISTORICAL RESULTS Anion Gap 14 7 - 16 04/16/2018 4:26 AM [employer] HISTORICAL RESULTS Glucose 76 70 - 100 mg/dL 04/16/2018 4:26 AM [employer] HISTORICAL RESULTS BUN 13 6 - 20 mg/dL 04/16/2018 4:26 AM [employer] [facility] [employer] [facility] HISTORICAL RESULTS Creatinine 0.9 0.5 - 1.1 mg/dL 04/16/2018 4:26 AM [employer] HISTORICAL RESULTS Comment: NOTE: Estimated GFR (Cockroft-Gault) will NOT be calculated unless patient Height and Weight were entered. Also, Kidney Disease Stage (GFR) and Estimated GFR (Cockroft-Gault) will NOT be calculated if Creatinine result is <0.2. Kidney Disease Stage 86 mL/MIN 04/16/2018 4:26 AM [employer] HISTORICAL RESULTS Comment: NOTE; ??The GFR is an estimated [...] mL/min ? Kidney failure or on dialysis @ Est GFR (Cockcroft-G) 122 ml/MIN 04/16/2018 4:26 AM [employer] HISTORICAL RESULTS Comment: Estimated GFR(Cockroft-Gault)is used to calculate patient medication dosage Calcium 9.3 8.6 - 10.0 mg/dL Total Protein 7.4 6.4 - 8.3 g/dL Albumin 3.8 3.5 - 5.2 g/dL Globulin 3.6(H) 2.3 - 3.5 gm/dL Albumin/Globulin Ratio 1.1 1.1 - 1.8 Total Bilirubin 0.3 0.0 - 1.2 mg/dL AST 34(H) 0 - 32 U/L Comment: SLIGHTLY HEMOLYZED: Hemolysis interferes with the above test. ALT 18 0 - 33 U/L Alkaline Phosphatase 123(H) 35 - 104 U/L 04/16/2018 3:50 AM [employer] 04/16/2018 3:57 AM [employer] Jem Yun DO LAB BLOOD ORDERABLES Final Result [facility] HISTORICAL RESULTS * (ABNORMAL) Creatine kinase (CK), total (04/16/2018 3:50 AM [employer]) Creatine Kinase 232(H) 20 - 180 U/L 04/16/2018 3:50 AM [employer] 04/16/2018 3:57 AM [employer] us Jem C. McClymont DO LAB BLOOD ORDERABLES Final Result Performing Organization Address [facility] de Phone Number [facility] HISTORICAL RESULTS * (ABNORMAL) B-type natriuretic peptide (04/16/2018 3:50 AM [employer]) [facility] B-Natriuretic Peptide 101(H) 0 - 100 pg/mL 04/16/2018 4:50 AM [facility] [employer] [facility] HISTORICAL RESULTS Comment: B Natriutetic Peptide METHOD: ??[employer] using ADONAY. Decision threshold of 100 pg/mL has been demonstrated to provide the maximal combination of sensitivity, specificity, and predictive value for the diagnosis of congestive heart failure (CHF). ??Virtually all patients with no evidence of CHF have BNP values <100 pg/mL. ?? NOTE: ??Nesiritide (Natrecor) interferes with the BNP assay. BNP result will be invalid if drawn within 2 hours of bolus or infusion of nesiritide. 04/16/2018 3:50 AM [employer] 04/16/2018 3:57 AM [facility] Jem Yun DO LAB BLOOD ORDERABLES Final Result Performing Organization Address [facility] de Phone Number [facility] [employer] [facility] HISTORICAL RESULTS * (ABNORMAL) CBC with auto differential (04/16/2018 3:50 AM [facility]) [facility] WBC 8.1 3.8 - 9.9 X10 3/ul 04/16/2018 4:00 AM [facility] [employer] HISTORICAL RESULTS RBC 3.67(L) 3.90 - 5.20 x10 6/ul 04/16/2018 4:00 AM [facility] HISTORICAL RESULTS Hemoglobin 7.7(L) 11.9 - 15.5 g/dL 04/16/2018 4:00 AM [facility] [employer] HISTORICAL RESULTS Hct 27.0(L) 35.6 - 45.5 % 04/16/2018 4:00 AM [facility] [employer] [facility] HISTORICAL RESULTS MCV 73.6(L) 81.3 - 96.4 fl 04/16/2018 4:00 AM [facility] HISTORICAL RESULTS MCH 21.0(L) 27.1 - 33.3 pg 04/16/2018 4:00 AM [facility] HISTORICAL RESULTS MCHC 28.5(L) 32.3 - 35.7 g/dl RDW 17.4(H) 11.1 - 14.9 % Plt Count 236 150 - 400 x10 3/ul MPV 9.6 9.1 - 12.3 fl Neut % 72.7 % Immature Gran % 0.1 % 9 4:00 AM [facility] HISTORICAL RESULTS Lymph % 13.0 % [place] % 9.1 % Eos % 4.7 % Baso % 0.4 % Absolute Neuts (auto) 5.9 1.7 - 6.5 x10 3/ul Immature Gran # 0.0 0.0 - 0.1 x10 3/ul Absolute Lymphs (auto) 1.1 0.8 - 3.3 x10 3/ul Absolute Monos (auto) 0.7 0.2 - 0.8 x10 3/ul Absolute Eos (auto) 0.4 0.0 - 0.5 x10 3/ul Absolute Basos (auto) 0.0 0.0 - 0.1 x10 3/ul Nucleat RBC Rel Count 0.0 #/100WBC Absolute Nucleated RBC 0.00 0.00 - 0.01 x10 3/ul 04/16/2018 4:00 AM [employer] [facility] HISTORICAL RESULTS Absolute Neutrophils 5900 200 - 8000 /ul 04/16/2018 4:00 AM [employer] [facility] HISTORICAL RESULTS 04/16/2018 3:50 AM [employer] 04/16/2018 3:57 AM [employer] Jem Yun DO LAB BLOOD ORDERABLES Final Result [facility] HISTORICAL RESULTS * XR Chest 1 View (04/16/2018 12:00 AM [employer]) Anatomical Region Laterality Modality Body, Chest N/A Radiographic Alexsandra ging 04/16/2018 Impressions 04/16/2018 4:03 AM [employer] ??Pulmonary vascular congestion with new atelectasis and/or infiltrate at the right lung base. THIS IS AN ELECTRONICALLY VERIFIED FINAL REPORT 04/16/2018 4:00 AM - Electronically signed by Moshe Stuart M.D., MA D: ??04/16/2018 4:00 AM T: Report ID: [id number] Reading Location: ??[id number] [EOD] Narrative 04/16/2018 4:03 AM [employer] EXAM DESCRIPTION: ??Chest 1 View Portable REASON FOR STUDY: ??c/o sternal Chest Pain and cough this AM; pain worse with movement. hx of PE. TECHNIQUE: ??Frontal radiographic view of the chest acquired. COMPARISON: ??Chest x-ray April 10, 2018 FINDINGS: LUNGS/PLEURA: Low lung volumes bilaterally. ??New atelectasis and/or infiltrate at the right base. ??No pneumothorax. ??No pleural effusion. HEART/MEDIASTINUM: Heart size is normal. ??There is pulmonary vascular congestion. HARDWARE/LINES/TUBES: None. BONES: No acute findings. OTHER: No other significant finding. Procedure Note Provider, MD Lawanda - 08/23/2020 EXAM DESCRIPTION: Chest 1 View Portable REASON FOR STUDY: c/o sternal Chest Pain and cough this AM; pain worsewith movement. hx of PE. TECHNIQUE: Frontal radiographic view of the chest acquired. COMPARISON: Chest x-ray April 10, 2018 FINDINGS: LUNGS/PLEURA: Low lung volumes bilaterally. New atelectasis and/orinfiltrate at the right base. No pneumothorax. No pleural effusion. HEART/MEDIASTINUM: Heart size is normal. There is pulmonary vascular congestion. HARDWARE/LINES/TUBES: None. BONES: No acute findings. OTHER: No other significant finding. IMPRESSION: Pulmonary vascular congestion with new atelectasis and/or infiltrate at the right lung base. THIS IS AN ELECTRONICALLY VERIFIED FINAL REPORT 04/16/2018 4:00 AM - Electronically signed by Moshe Stuart M.D., MA T: Report ID: [id number] Reading Location: [place] [address] [EOD] Jem Yun DO IMG XR PROCEDURES Final Res ult documented in this encounter Visit Diagnoses Diagnosis Chest pain Unspecified chest pain Shortness of breath Cough Essential (primary) hypertension Unspecified essential hypertension Personal history of pulmonary embolism retirement current use of anticoagulant Family history of diabetes mellitus Family history of ischemic heart disease and other diseases of the circulatory system documented in this encounter Care Teams Criminal Profiler Relationship Specialty Start Date End Date Unknown, Notinfile PCP - General 02/18/18 10/24/18 Unknown, Notinfile 02/18/18 03/27/20 documented as of this encounter
--- OUTSIDE RECORDS SUMMARY | 2024-03-24 18:55 | XMS_ITS | Encounter Summary ---
Author Organization [facility] Healthcare Address [address] [place] [id number] Care Team Providers Care Import Export Coordinator Name Role Phone Unknown, Notinfile Primary Care Provider Unavail able Unknown, Notinfile Unavailable Unavailable Encounter Details Date Type Department Care Team (Latest Contact Info) Description 07/19/2018 1:08 PM CDT - 07/19/2018 5:21 PM CDT Hospital Encounter [facility] Emergency Department [address] [place] [address] [id number] Lcua Crain MD [address] [place] [address] [place] [address] Discharge Disposition: Discharge to a short term hospital for IP Social History Tobacco Use Types Packs/Day Years [...] Sign Reading Time Taken Comments Blood Pressure 133/77 07/19/2018 1:27 PM CDT Pulse 88 07/19/2018 1:27 PM CDT Temperature 36.9 ??C (98.4 ??F) 07/19/2018 1:27 PM CD T Respiratory Rate - - Oxygen Saturation 99% 07/19/2018 1:27 PM CDT Inhaled Oxygen Concentration - - Weight 143.7 kg (316 lb 12.9 oz) 07/19/2018 1:27 PM CDT Height 170.2 cm (5' 7 ) 07/19/2018 1:27 PM CDT Body Mass Index 49.62 07/19/2018 1:27 PM CDT documented in this encounter Medications [...] Disposition Code Departure Means Destination Discharge to a short term hospital for IP documented in this encounter Plan of Treatment Not on file documented as of this encounter Procedures Procedure Name Priority Date/Time Associated Diagnosis Comments TROPONIN I Routine 07/19/2018 4:22 PM CDT TNI WITH LIPID PANEL Routine 07/19/2018 2:26 PM CDT CBC WITH AUTO DIFFERENTIAL Routine 07/19/2018 2:26 PM CDT APTT Routine 07/19/2018 2:26 PM CDT PROTIME-INR Routine 07/19/2018 2:26 PM CDT COMPREHENSIVE METABOLIC PANEL Routine 07/19/2018 2:26 PM CDT ECG 12-LEAD 07/19/2018 1:15 PM CDT US VEIN DUPLEX LOWER EXTREMITY RIGHT LIMITED 07/19/2018 12:00 AM CDT XR CHEST 1 VIEW 07/19/2018 12:00 AM CDT documented in this encounter Results * Troponin I (07/19/2018 4:22 PM CDT) Pathologist [facility] Troponin I <0.300 0.000 - 0.300 ng/mL [facility] Comment: Reference using [place] Chemiluminescence ? Negative: Repeat in 4-6 hours as indicated. 07/19/2018 4:22 PM CDT 07/19/2018 4:27 PM CDT Narrative Resulting Agency Comment ER us Jarad Garner NP LAB BLOOD ORDERABLES Nika perez Result [address] [phone] * TNI with LIPID PANEL (07/19/2018 2:26 PM CDT) Pathologist [facility] Troponin I <0.300 0.000 - 0.300 ng/mL [facility] Comment: Reference using [place] Chemiluminescence ? Negative: Repeat in 4-6 hours as indicated. Triglycerides 89 0 - 149 mg/dL [facility] Comment: National Lipid Association/NCEP Guidelines: ?? Normal ?< 150 mg/dL ?? Borderline high ?? 150-199 mg/dL ?? High ?200-499 mg/dL ?? Very High ? >=500 mg/dL Cholesterol 140 0 - 199 mg/dL [facility] Comment: National Lipid Association/NCEP Guidelines: Desirable ? < 200 mg/dL Borderline high: ??200-239 mg/dL High Risk: ?>=240 mg/dL HDL Cholesterol 70 mg/dL [facility] Comment: Reference Ranges: ? Males: >=40 mg/dL ? Females: >=50 mg/dL LDL Cholesterol, Calc 52 0 - 129 mg/dL [facility] Comment: National Lipid Association/NCEP Guidelines: ??Optimal ? < 100 mg/dL ??Near Optimal ?100-129 mg/dL ??Borderline high 130-159 mg/dL ??High ?>=160 mg/dL Cholesterol/HDL Ratio 2.0 [facility] Comment: Optimal ??< 3.5:1 High ? > 5:1 07/19/2018 2:26 PM CDT 07/19/2018 2:32 PM CDT Narrative Resulting Agency Comment ER us Jarad Garner EXPLOSIVE OPERATOR FUSE LAB BLOOD ORDERABLES Nika perez Result [address] [phone] * (ABNORMAL) Comprehensive metabolic panel (07/19/2018 2:26 PM CDT) Sodium 140 135 - 145 mmol/L [facility] Potassium 4.1 3.3 - 5.1 mmol/L [facility] Chloride 104 96 - 108 mmol/L [facility] Carbon Dioxide 20(L) 22 - 32 mmol/L [facility] Anion Gap 16 7 - 16 [facility] Glucose 85 70 - 100 mg/dL [facility] BUN 12 8 - 25 mg/dL [facility] Creatinine 0.6 0.5 - 1.1 mg/dL [facility] Comment: NOTE: Estimated GFR (Cockroft-Gault) will NOT be calculated unless patient Height and Weight were entered. Also, Kidney Disease Stage (GFR) and Estimated GFR (Cockroft-Gault) will NOT be calculated if Creatinine result is <0.2. Kidney Disease Stage >90 mL/MIN [facility] Comment: NOTE; ??The GFR is an estimated [...] failure or on dialysis Est GFR (Cockcroft-G) 171 ml/MIN [facility] Comment: Estimated GFR(Cockroft-Gault)is used to calculate patient medication dosage Calcium 9.1 8.6 - 10.3 mg/dL [facility] Total Protein 7.7 6.4 - 8.3 g/dL [facility] Albumin 3.7 3.5 - 5.0 g/dL [facility] Globulin 4.0(H) 2.3 - 3.5 gm/dL [facility] Albumin/Globulin Ratio 0.9(L) 1.1 - 1.8 [facility] Total Bilirubin 0.3 0.0 - 1.2 mg/dL [facility] AST 23 0 - 32 U/L [facility] ALT 11 0 - 33 U/L [facility] Alkaline Phosphatase 87 35 - 104 U/L [facility] 07/19/2018 2:26 PM CDT 07/19/2018 2:32 PM CDT Narrative Resulting Agency Comment ER us Jarad Garner NP LAB BLOOD ORDERABLES Nika perez Result [facility] [address] [place] [address], [facility] [phone] * (ABNORMAL) CBC with auto differential (07/19/2018 2:26 PM CDT) WBC 5.9 3.8 - 9.9 X10 3/ul [facility] RBC 4.01 3.90 - 5.20 x10 6/ul [facility] Hemoglobin 7.6(L) 11.9 - 15.5 g/dL [facility] Hct 27.3(L) 35.6 - 45.5 % [facility] MCV 68.1(L) 81.3 - 96.4 fl [facility] MCH 19.0(L) 27.1 - 33.3 pg [facility] MCHC 27.8(L) 32.3 - 35.7 g/dl [facility] RDW 19.7(H) 11.1 - 14.9 % [facility] Plt Count 224 150 - 400 x10 3/ul [facility] MPV 9.0(L) 9.1 - 12.3 fl [facility] Neut % 64.1 % [facility] Immature Gran % 0.2 % [facility] Lymph % 23.4 % [facility] [place] % 8.1 % [facility] Eos % 3.5 % [facility] AUTO BASO % 0.7 % [facility] NEUTROPHIL ABS # 3.8 1.7 - 6.5 x10 3/ul [facility] Immature Gran # 0.0 0.0 - 0.1 x10 3/ul [facility] Absolute Lymphs (auto) 1.4 0.8 - 3.3 x10 3/ul [facility] Absolute Monos (auto) 0.5 0.2 - 0.8 x10 3/ul [facility] Absolute Eos (auto) 0.2 0.0 - 0.5 x10 3/ul [facility] BASOPHIL ABS # 0.0 0.0 - 0.1 x10 3/ul [facility] Nucleat RBC Rel Count 0.0 #/100WBC [facility] NRBC abs 0.00 0.00 - 0.01 x10 3/ul [facility] Absolute Neutrophils 3,800 200 - 8,000 /ul [facility] 07/19/2018 2:26 PM CDT 07/19/2018 2:32 PM CDT Narrative Resulting Agency Comment ER Jarad Garner EXPLOSIVE OPERATOR FUSE LAB BLOOD ORDERABLES Nika l Result Performing Organization Address [facility] Co de Phone Number [address] [phone] * aPTT (07/19/2018 2:26 PM CDT) APTT 27 26 - 33 SECONDS [facility] 07/19/2018 2:26 PM CDT 07/19/2018 2:32 PM CDT Narrative Resulting Agency Comment ER Jarad Garner EXPLOSIVE OPERATOR FUSE LAB BLOOD ORDERABLES Nika l Result Performing Organization Address [facility] de Phone Number [address] [phone] * Protime-INR (07/19/2018 2:26 PM CDT) PT 13.7 11.8 - 14.5 SECONDS [facility] INR 1.04 [facility] Comment: Recommended Therapeutic range for Oral Anticoagulant Therapy No anti-coagulation therapy ? Normal Range: ?0.8-1.4 Anti-coagulation therapy ? Low intensity therapy ?2.0-3.0 ? High intensity therapy ?? 2.5-3.5 Critical Value ? Greater than or equal to 5.0 Patients should be monitored for serious bleeding. 07/19/2018 2:26 PM CDT 07/19/2018 2:32 PM CDT Narrative Resulting Agency Comment ER Jarad Garner EXPLOSIVE OPERATOR FUSE LAB BLOOD ORDERABLES Nika l Result Performing Organization Address [facility] [place] [address], [facility] [phone] * ECG 12 lead (07/19/2018 1:15 PM CDT) Ventricular Rate EKG/Min 81 BPM [facility] Atrial Rate 81 BPM [facility] LA-Interval (MSEC) 194 ms [facility] QRS-Interval (MSEC) 86 ms [facility] QT-Interval (MSEC) 384 ms [facility] QTc 446 ms [facility] P [place] 24 degrees [facility] R [place] -15 degrees [facility] T [place] 0 degrees [facility] Diagnosis Normal sinus rhythm Moderate voltage criteria for LVH, may be normal variant Borderline ECG When compared with ECG of 16-APR-2018 04:28, No significant change was found [facility] 07/19/2018 1:15 PM CDT 07/19/2018 7:07 PM CDT Narrative Resulting Agency Comment PREADT us Jarad Garner EXPLOSIVE OPERATOR FUSE ECG ORDERABLES Final Res ult [facility] * US Vein Duplex Lower Extremity Right Limited (07/19/2018 12:00 AM CDT) Anatomical Region Laterality Modality Vascular Right Ultrasound 07/21/2018 7:39 AM CDT Narrative 07/21/2018 9:22 AM CDT ? Patient Name: TIARRA HAN ? MR#: [id number] ?? [id number] ? Status: DEP ER ?D.O.B: 1970 Age: ??47 ?Sex: Female ? ADM/SER Dt: 07/19/18 ?Disch Dt: 07/19/18 ?LOC: Y.ER ? Ordering Phy: Paras,Luca KASPER ? Order #[id number] ? Venous Dop/Duplex Right Leg ?? Zeferino Mensah MD ? Signed ?? DATE OF SERVICE: ?? 07/19/2018 ? REASON FOR STUDY: ??Right leg pain. ? No thrombus seen in the right common femoral, superficial femoral and popliteal vein. ??Calf veins could not be well visualized due the patient's edema and body habitus. ? No thrombus seen in the right greater saphenous vein. ? IMPRESSION: ??No evidence of acute deep vein thrombosis, right lower extremity in a limited study. ?? Unable to visualize the right calf veins. ? NTS ? Job: [id number] ? Dictated By: Zeferino Mensah MD ?? Dictated For: Zeferino Mensah MD ? <Electronically signed by Zeferino Mensah MD> ? 07/21/18 0833 ?? Resulting Agency Comment E Procedure Note Zeferino Mensah MD - 07/21/2018 Patient Name: TIARRA HAN #: [id number] Status: KRYSTAL ALMANZAR D.O.B: 1970 Age: 47Sex: Female ADM/SER Dt: 07/19/18 Disch Dt: 07/19/18LOC: BIRD Ordering Phy: Luca Crain MD Order #[id number] Venous Dop/Duplex Right Leg Zeferino Mensah MD Signed DATE OF SERVICE: 07/19/2018 REASON FOR STUDY: Right leg pain. No thrombus seen in the right common femoral, superficial femoral andpopliteal vein. Calf veins could not be well visualized due the patient's edema and body habitus. No thrombus seen in the right greater saphenous vein. IMPRESSION: No evidence of acute deep vein thrombosis, right lowerextremity in a limited study. Unable to visualize the right calf veins. NTS Job: [id number] Dictated By: Zeferino Mensah MD Dictated For: Zeferino Mensah MD <Electronically signed by Zeferino Mensah MD> 07/21/18 0833 us Luca Crain MD IMG US PROCEDURES Final Result * XR Chest 1 View (07/19/2018 12:00 AM CDT) Anatomical Region Laterality Modality Body, Chest N/A Radiographic Alexsandra ging 07/19/2018 2:12 PM CDT Narrative 07/19/2018 2:14 PM CDT Patient Name: TIARRA HAN ?Ordering Dr: Jarad Garner ?? D.O.B: 1970 ? Exam Date: 07/19/18 ?? 0000 ?? Age: 47 ?Sex: Female ? MR#: [id number] ?? Loc: ? RADIOLOGY REPORT ?? Order #[id number] ?? Radiology ? Chest 1 View Portable ? Signed ? EXAM DESCRIPTION: ??Chest 1 View Portable ? REASON FOR STUDY: ??Chest pain for 1 day. ? TECHNIQUE: ??Frontal radiographic view of the chest acquired. ? COMPARISON: ??Chest radiograph from April 16, 2018. ? FINDINGS: ?LUNGS/PLEURA: No evidence of airspace consolidation, pleural effusion, or ?? pneumothorax. ? HEART/MEDIASTINUM: Stable cardiomediastinal silhouette. ??Heart size within ?? normal limits for AP technique. ??Normal mediastinal and contours. ? HARDWARE/LINES/TUBES: None. ? BONES: No acute or aggressive appearing osseous abnormalities. ? IMPRESSION: ??No evidence of an acute cardiopulmonary abnormality. ? THIS IS AN ELECTRONICALLY VERIFIED FINAL REPORT ?? 07/19/2018 2:14 PM - Electronically signed by Joseph Hemphill M.D. ?? Joseph Hemphill M.D. ? AB: AB ?? D: ??07/19/2018 2:14 PM ?? T: ??07/19/2018 2:14 PM ? Report ID: [id number] ?? Reading Location: ??[id number] ? REPORT ELECTRONICALLY SIGNED IN OTHER VENDOR SYSTEM ?? Resulting Agency Comment P Procedure Note Joseph Hemphill MD - 07/19/2018 Patient Name: TIARRA HAN Dr: Jarad Garner D.O.B: 1970 Exam Date: 07/19/18 0000 Age: 47 Sex: Female MR#: [id number] Loc: RADIOLOGY REPORT Order #[id number] Radiology Chest 1 View Portable Signed EXAM DESCRIPTION: Chest 1 View Portable REASON FOR STUDY: Chest pain for 1 day. TECHNIQUE: Frontal radiographic view of the chest acquired. COMPARISON: Chest radiograph from April 16, 2018. FINDINGS: LUNGS/PLEURA: No evidence of airspace consolidation, pleural effusion,or pneumothorax. HEART/MEDIASTINUM: Stable cardiomediastinal silhouette. Heart sizewithin normal limits for AP technique. Normal mediastinal and contours. HARDWARE/LINES/TUBES: None. BONES: No acute or aggressive appearing osseous abnormalities. IMPRESSION: No evidence of an acute cardiopulmonary abnormality. THIS IS AN ELECTRONICALLY VERIFIED FINAL REPORT 07/19/2018 2:14 PM - Electronically signed by Joseph Hemphill M.D. AB: Report ID: [id number] Reading Location: [place] [id number] REPORT ELECTRONICALLY SIGNED IN OTHER VENDOR SYSTEM Jarad Garner EXPLOSIVE OPERATOR FUSE IMG XR PROCEDURES Final R esult documented in this encounter Visit Diagnoses Not on filedocumented in this encounter Care Teams Import Export Coordinator Relationship Specialty Start Date End Date Unknown, Notinfile PCP - General 02/18/18 10/24/18 Unknown, Notinfile 02/18/18 03/27/20 documented as of this encounter
--- OUTSIDE RECORDS SUMMARY | 2024-03-24 18:55 | XMS_ITS | Encounter Summary ---
Author Organization [facility] Healthcare Address [address] [place] [address] Care Team Providers Care Meter Engineer Name Role Phone Unknown, Notinfile Unavailable Unavailable Jc Leon MD Primary Care Provider [phone] Encounter Details Date Type Department Care Team (Late st Contact Info) Description 10/25/2018 6:56 PM CDT - 10/25/2018 11:02 PM CDT Hospital Encounter [facility] Emergency Department [address] [place] [address] Unknown, Notinfile Ozzie Arrington DO [address] [place] [address] Discharge Disposition: Discharge to home or self [...] Sign Reading Time Taken Comments Blood Pressure 149/90 10/25/2018 7:09 PM CDT Pulse 80 10/25/2018 7:09 PM CDT Temperature 36.9 ??C (98.4 ??F) 10/25/2018 7:09 PM CD T Respiratory Rate - - Oxygen Saturation 97% 10/25/2018 7:09 PM CDT Inhaled Oxygen Concentration - - Weight 142 kg (313 lb 0.9 oz) 10/25/2018 7:09 PM CDT Height 170.2 cm (5' 7 ) 10/25/2018 7:09 PM CDT Body Mass Index 49.03 10/25/2018 7:09 PM CDT documented in this encounter Medications [...] Procedure Name Priority Date/Time Associated Diagnosis Comments CTA CHEST W IV CONTRAST - PE 10/25/2018 8:38 PM CDT XR CHEST 1 VIEW 10/25/2018 8:20 PM CDT TNI WITH LIPID PANEL Routine 10/25/2018 8:04 PM CDT CBC WITH AUTO DIFFERENTIAL Routine 10/25/2018 8:04 PM CDT APTT Routine 10/25/2018 8:04 PM CDT PROTIME-INR Routine 10/25/2018 8:04 PM CDT D-DIMER, QUANTITATIVE Routine 10/25/2018 8:04 PM CDT COMPREHENSIVE METABOLIC PANEL Routine 10/25/2018 8:04 PM CDT ECG 12-LEAD 10/25/2018 7:01 PM CDT documented in this encounter Results * CTA Chest W IV Contrast - PE (10/25/2018 8:38 PM CDT) Anatomical Region Laterality Modality Body N/A Computed Tomogra phy 10/25/2018 10:0 5 PM CDT Narrative 10/25/2018 10:10 PM CDT Patient Name: TIARRA HAN ?Ordering Dr: Ozzie Arrington DO ?? D.O.B: 1970 ? Exam Date: 10/25/18 ?? 2037 ?? Age: 47 ?Sex: Female ? MR#: [id number] ?? Loc: ? RADIOLOGY REPORT ?? Order #[id number] ?? CT Scan ? CTA Chest W IV Contrast - PE ? Signed ? EXAM DESCRIPTION: ??CTA Chest W IV Contrast - PE ? REASON FOR STUDY: ??Chest pain x2 hours ? TECHNIQUE: ??CT angiogram of the chest [...] technique for this examination. ? CONTRAST TYPE/DOSE: ??80 cc Optiray 350 injected via right antecubital IV ? COMPARISON: ??07/20/2018 ? FINDINGS: ?VASCULATURE: Bolus timing is adequate and no filling defect is seen in the ?? pulmonary arterial tree. ??Systemic arterial structures are partially opacified ?? and reveal no acute abnormality. ? MEDIASTINUM/CHARANJIT: Heart size normal. ?? No enlarged lymph node. ??Thyroid gland ?? and thoracic inlet unremarkable. ? LUNGS: Lungs are clear. ??Trachea and major airways are patent. ? UPPER ABDOMEN: Gastric bypass. ? MUSCULOSKELETAL: Unremarkable. ? IMPRESSION: ??No PE or other acute abnormality identified. ? THIS IS AN ELECTRONICALLY VERIFIED FINAL REPORT ?? 10/25/2018 10:10 PM - Electronically signed by Joe Da Silva M.D. ?? Joe Da Silva M.D. ? AR: AR ?? D: ??10/25/2018 10:10 PM ?? T: ??10/25/2018 10:10 PM ? Report ID: [id number] ?? Reading Location: ??[id number] ? REPORT ELECTRONICALLY SIGNED IN OTHER VENDOR SYSTEM ?? Resulting Agency Comment P Procedure Note Joe Da Silva MD - 10/25/2018 Patient Name: FRANK HANCT Evans Dr: Ozzie Arrington DO DBeaO.B: 1970 Exam Date: 10/25/182037 Age: 47 Sex: Female MR#: [id number] Loc: RADIOLOGY REPORT Order #[id number] CT Scan CTA Chest W IV Contrast - PE Signed EXAM DESCRIPTION: CTA Chest W IV Contrast - PE REASON FOR STUDY: Chest pain x2 hours TECHNIQUE: CT angiogram of the chest performed with intravenous contrast using helical scanning technique with dynamic intravenous contrastinjection. Reconstructed coronal and sagittal MPR images reviewed. All images storedon PACS. 3D MIP images rendered on scanning unit and reviewed at time of interpretation. Automated exposure control was used as a doseoptimization technique for this examination. CONTRAST TYPE/DOSE: 80 cc Optiray 350 injected via right antecubital IV COMPARISON: 07/20/2018 FINDINGS: VASCULATURE: Bolus timing is adequate and no filling defect is seen inthe pulmonary arterial tree. Systemic arterial structures are partiallyopacified and reveal no acute abnormality. MEDIASTINUM/CHARANJIT: Heart size normal. No enlarged lymph node. Thyroidgland and thoracic inlet unremarkable. LUNGS: Lungs are clear. Trachea and major airways are patent. UPPER ABDOMEN: Gastric bypass. MUSCULOSKELETAL: Unremarkable. IMPRESSION: No PE or other acute abnormality identified. THIS IS AN ELECTRONICALLY VERIFIED FINAL REPORT 10/25/2018 10:10 PM - Electronically signed by Joe Da Silva M.D. AR: SAMUEL Report ID: [id number] Reading Location: [place] [address] REPORT ELECTRONICALLY SIGNED IN OTHER VENDOR SYSTEM Ozzie Arrington DO IMG CT PROCEDURES Final Result * XR Chest 1 View (10/25/2018 8:20 PM CDT) Anatomical Region Laterality Modality Body, Chest N/A Radiographic Alexsandra ging 10/25/2018 8:45 PM CDT Narrative 10/25/2018 8:46 PM CDT Patient Name: TIARRA HAN ?Ordering Dr: Ozzie Arrington DO ?? D.O.B: 1970 ? Exam Date: 10/25/18 ?? 2020 ?? Age: 47 ?Sex: Female ? MR#: [id number] ?? Loc: ? RADIOLOGY REPORT ?? Order #[id number] ?? Radiology ? Chest 1 View Portable ? Signed ? EXAM DESCRIPTION: ??Chest 1 View Portable ? REASON FOR STUDY: ??Chest pain for 4 ? TECHNIQUE: ??Frontal radiographic view of the chest acquired. ? COMPARISON: ??07/19/2018 ? FINDINGS: ? LUNGS/PLEURA: No focal consolidation or pneumothorax. No pleural effusion. ? HEART/MEDIASTINUM: Heart size is normal. Normal mediastinal and hilar contours. ? HARDWARE/LINES/TUBES: None. ? BONES: No acute findings. ? OTHER: No other significant finding. ? IMPRESSION: ??No acute cardiopulmonary disease. ? THIS IS AN ELECTRONICALLY VERIFIED FINAL REPORT ?? 10/25/2018 8:46 PM - Electronically signed by Amarjit Alexander M.D. ?? Amarjit Alexander M.D. ? SERA: SERA ?? D: ??10/25/2018 8:46 PM ?? T: ??10/25/2018 8:46 PM ? Report ID: [id number] ?? Reading Location: ??[id number] ? REPORT ELECTRONICALLY SIGNED IN OTHER VENDOR SYSTEM ?? Resulting Agency Comment P Procedure Note Amarjit Alexander MD - 10/25/2018 Patient Name: TIARRA HAN [address] Dr: Ozzie Arrington DO, D.O.B: 1970 Exam Date: 10/25/182019 Age: 47 Sex: Female MR#: [id number] Loc: RADIOLOGY REPORT Order #[id number] Radiology Chest 1 View Portable Signed EXAM DESCRIPTION: Chest 1 View Portable REASON FOR STUDY: Chest pain for 4 TECHNIQUE: Frontal radiographic view of the chest acquired. COMPARISON: 07/19/2018 FINDINGS: LUNGS/PLEURA: No focal consolidation or pneumothorax. No pleuraleffusion. HEART/MEDIASTINUM: Heart size is normal. Normal mediastinal and hilarcontours. HARDWARE/LINES/TUBES: None. BONES: No acute findings. OTHER: No other significant finding. IMPRESSION: No acute cardiopulmonary disease. THIS IS AN ELECTRONICALLY VERIFIED FINAL REPORT 10/25/2018 8:46 PM - Electronically signed by Amarjit Alexander M.D. SERA: SERA Report ID: [id number] Reading Location: [place] [address] REPORT ELECTRONICALLY SIGNED IN OTHER VENDOR SYSTEM us Ozzie Arrington DO IMG XR PROCEDURES Final Result * TNI with LIPID PANEL (10/25/2018 8:04 PM CDT) Troponin I <0.300 0.000 - 0.300 ng/mL [facility] Comment: Reference using [place] Chemiluminescence ? Negative: Repeat in 4-6 hours as indicated. Triglycerides 108 0 - 149 mg/dL [facility] Comment: National Lipid Association/NCEP Guidelines: ?? Normal ?< 150 mg/dL ?? Borderline high ?? 150-199 mg/dL ?? High ?200-499 mg/dL ?? Very High ? >=500 mg/dL Cholesterol 135 0 - 199 mg/dL [facility] Comment: National Lipid Association/NCEP Guidelines: Desirable ? < 200 mg/dL Borderline high: ??200-239 mg/dL High Risk: ?>=240 mg/dL HDL Cholesterol 47 mg/dL [facility] Comment: Reference Ranges: ? Males: >=40 mg/dL ? Females: >=50 mg/dL LDL Cholesterol, Calc 66 0 - 129 mg/dL [facility] Comment: National Lipid Association/NCEP Guidelines: ??Optimal ? < 100 mg/dL ??Near Optimal ?100-129 mg/dL ??Borderline high 130-159 mg/dL ??High ?>=160 mg/dL Cholesterol/HDL Ratio 2.9 [facility] Comment: Optimal ??< 3.5:1 High ? > 5:1 10/25/2018 8:04 PM CDT 10/25/2018 8:09 PM CDT Narrative Resulting Agency Comment ER us Ozzie Arrington DO LAB BLOOD ORDERABLES Final Res ult [facility] [address] [place] [address], [facility] [phone] * (ABNORMAL) Comprehensive metabolic panel (10/25/2018 8:04 PM CDT) Sodium 140 135 - 145 mmol/L [facility] Potassium 3.6 3.3 - 5.1 mmol/L [facility] Chloride 103 96 - 108 mmol/L [facility] Carbon Dioxide 23 22 - 32 mmol/L [facility] Anion Gap 14 7 - 16 [facility] Glucose 95 70 - 100 mg/dL [facility] BUN 9 8 - 25 mg/dL [facility] Creatinine 0.6 0.5 - 1.1 mg/dL [facility] Comment: NOTE: Estimated GFR (Cockroft-Gault) will NOT be calculated unless patient Height and Weight were entered. Also, Kidney Disease Stage (GFR) and Estimated GFR (Cockroft-Gault) will NOT be calculated if Creatinine result is <0.2. Kidney Disease Stage >90 mL/MIN [facility] Comment: NOTE; ??The GFR is [...] failure or on dialysis Est GFR (Cockcroft-G) 170 ml/MIN [facility] Comment: Estimated GFR(Cockroft-Gault)is used to calculate patient medication dosage Calcium 9.5 8.6 - 10.3 mg/dL [facility] Total Protein 8.1 6.4 - 8.3 g/dL [facility] Albumin 4.1 3.5 - 5.0 g/dL [facility] Globulin 4.0(H) 2.3 - 3.5 gm/dL [facility] Albumin/Globulin Ratio 1.0(L) 1.1 - 1.8 [facility] Total Bilirubin 0.3 0.0 - 1.2 mg/dL [facility] AST 17 0 - 32 U/L [facility] ALT 8 0 - 33 U/L [facility] Alkaline Phosphatase 79 35 - 104 U/L [facility] 10/25/2018 8:04 PM CDT 10/25/2018 8:09 PM CDT Narrative Resulting Agency Comment ER Ozzie Arrington DO LAB BLOOD ORDERABLES Final Res ult Performing Organization Address [facility] de Phone Number [address] [phone] * (ABNORMAL) D-dimer, quantitative (10/25/2018 8:04 PM CDT) D-Dimer, Quantitative 1.05(H) 0.00 - 0.50 FEUug/ml [facility] Comment: Studies indicate that a D-Dimer level of <0.50 FEUug/ml has a >95% negative predictive value for DVT,DIC,PE and other embolus conditions. ??Levels >0.50 FEUug/ml may be present in a wide variety of conditions and should not be considered diagnostic of any disease state. 10/25/2018 8:04 PM CDT 10/25/2018 8:09 PM CDT Narrative Resulting Agency Comment ER Ozzie Arrington DO LAB BLOOD ORDERABLES Final Res ult Performing Organization Address [facility] de Phone Number [address] [phone] * aPTT (10/25/2018 8:04 PM CDT) APTT 29 27 - 36 SECONDS [facility] Comment: New reference ranges in use 10-03-18. 10/25/2018 8:04 PM CDT 10/25/2018 8:09 PM CDT Narrative Resulting Agency Comment ER Ozzie Arrington DO LAB BLOOD ORDERABLES Final Res ult Performing Organization Address [facility] de Phone Number [address] [phone] * Protime-INR (10/25/2018 8:04 PM CDT) Pathologist [facility] PT 13.9 12.2 - 14.8 SECONDS [facility] Comment: New reference ranges in use 10-03-18. INR 1.04 [facility] Comment: Recommended Therapeutic range for Oral Anticoagulant Therapy No anti-coagulation therapy ? Normal Range: ?0.8-1.4 Anti-coagulation therapy ? Low intensity therapy ?2.0-3.0 ? High intensity therapy ?? 2.5-3.5 Critical Value ? Greater than or equal to 5.0 Patients should be monitored for serious bleeding. 10/25/2018 8:04 PM CDT 10/25/2018 8:09 PM CDT Narrative Resulting Agency Comment ER Ozzie Arrington DO LAB BLOOD ORDERABLES Final Res ult Performing Organization Address [facility] de Phone Number [address] [phone] * (ABNORMAL) CBC with auto differential (10/25/2018 8:04 PM CDT) Pathologist [facility] WBC 7.2 3.8 - 9.9 X10 3/ul [facility] RBC 3.91 3.90 - 5.20 x10 6/ul [facility] Hemoglobin 7.6(L) 11.9 - 15.5 g/dL [facility] Hct 28.2(L) 35.6 - 45.5 % [facility] MCV 72.1(L) 81.3 - 96.4 fl [facility] MCH 19.4(L) 27.1 - 33.3 pg [facility] MCHC 27.0(L) 32.3 - 35.7 g/dl [facility] RDW 21.1(H) 11.1 - 14.9 % [facility] Plt Count 289 150 - 400 x10 3/ul [facility] MPV 9.7 9.1 - 12.3 fl [facility] Accountable [facility] Neut % 69.3 % [facility]Name [facility] Immature Gran % 0.3 % [facility] Lymph % 17.7 % [facility] [employer] [place] % 8.0 % [facility] [employer] Eos % 4.3 % [facility]Name [facility] [place]O [place] % 0.4 % [facility] NEUTROPHIL ABS # 5.0 1.7 - 6.5 x10 3/ul [facility] Immature Gran # 0.0 0.0 - 0.1 x10 3/ul [facility] Absolute Lymphs (auto) 1.3 0.8 - 3.3 x10 3/ul [facility] Absolute Monos (auto) 0.6 0.2 - 0.8 x10 3/ul [facility] Absolute Eos (auto) 0.3 0.0 - 0.5 x10 3/ul [facility] BASOPHIL ABS # 0.0 0.0 - 0.1 x10 3/ul [facility] Nucleat RBC Rel Count 0.0 #/100WBC [facility] NRBC abs 0.00 0.00 - 0.01 x10 3/ul [facility] Absolute Neutrophils 5,000 200 - 8,000 /ul [facility] 10/25/2018 8:04 PM CDT 10/25/2018 8:09 PM CDT Narrative Resulting Agency Comment ER us Ozzie Arrington DO LAB BLOOD ORDERABLES Final Res ult [facility] [address] [place] [address] * ECG 12 lead (10/25/2018 7:01 PM CDT) Ventricular Rate EKG/Min 75 BPM [facility] Atrial Rate 75 BPM [facility] ID-Interval (MSEC) 164 ms [facility] QRS-Interval (MSEC) 80 ms [facility] QT-Interval (MSEC) 432 ms [facility] QTc 482 ms [facility] P [place] 18 degrees [facility] R [place] -7 degrees [facility] T [place] -6 degrees [facility] Diagnosis Normal sinus rhythm Moderate voltage criteria for LVH, may be normal variant . T-wave changes When compared with ECG of 20-JUL-2018 10:09, No significant change was found [facility] 10/25/2018 7:01 PM CDT 10/26/2018 11:42 AM CDT Narrative Resulting Agency Comment SAURAB[facility] us Ozzie Arrington DO ECG ORDERABLES Final Result [facility] documented in this encounter Visit Diagnoses Not on filedocumented in this encounter Care Teams Meter Engineer Relationship Specialty Start Date End Date Jc Leon MD [address] [facility] [address] [place] [address] PCP - General 10/25/18 11/20/18 Unknown, Notinfile 02/18/18 03/27/20 documented as of this encounter
--- OUTSIDE RECORDS SUMMARY | 2024-03-24 18:55 | XMS_ITS | Encounter Summary ---
Author Organization [facility] Healthcare Address [address] [place] [id number] Care Team Providers Care [employer] Account Executive Name Role Phone Unknown, Notinfile Unavailable Unavailable Gerard Sutton MD Primary Care Provider [phone] Encounter Details Date Type Department Care Team (Late st Contact Info) Description 04/19/2019 3:06 PM PROPERTY SITE MANAGER - 04/23/2019 5:57 PM PROPERTY SITE MANAGER Hospital Encounter [facility] ADMIT Unknown, Giuliana Gates MD [address] [place] [address] Discharge Disposition: Discharge to home or self [...] Sign Reading Time Taken Comments Blood Pressure 96/61 04/18/2019 12:32 PM PROPERTY SITE MANAGER Pulse 71 04/18/2019 12:32 PM PROPERTY SITE MANAGER Temperature 36.9 ??C (98.5 ??F) 04/18/2019 1 2:32 PM PROPERTY SITE MANAGER Respiratory Rate - - Oxygen Saturation 98% 04/18/2019 12: 32 PM PROPERTY SITE MANAGER Inhaled Oxygen Concentration - - Weight 129.3 kg (285 lb 1.6 oz) 020 12:32 PM PROPERTY SITE MANAGER Height 170.2 cm (5' 7 ) 04/18/2019 12:3 2 PM PROPERTY SITE MANAGER Body Mass Index 44.65 04/18/2019 12:32 PM PROPERTY SITE MANAGER documented in this encounter Medications at Time of Discharge albuterol HFA (PROVENTIL HFA,VENTOLIN HFA,PROAIR HFA) 90 [...] Diagnosis Comments CBC WITH AUTO DIFFERENTIAL Routine 04/23/2019 2:48 PM PROPERTY SITE MANAGER CBC WITH AUTO DIFFERENTIAL Routine 04/23/2019 6:44 AM PROPERTY SITE MANAGER BASIC METABOLIC PANEL Routine 04/23/2019 6:44 AM PROPERTY SITE MANAGER CBC WITH AUTO DIFFERENTIAL Routine 04/22/2019 4:28 PM PROPERTY SITE MANAGER CBC WITH AUTO DIFFERENTIAL Routine 04/22/2019 8:34 AM PROPERTY SITE MANAGER RBC TRANSFUSION ORDER Routine 04/21/2019 8:29 AM PROPERTY SITE MANAGER ANTIBODY SCREEN Routine 04/21/2019 8:29 AM PROPERTY SITE MANAGER TYPE AND SCREEN Routine 04/21/2019 8:29 AM PROPERTY SITE MANAGER CBC WITH AUTO DIFFERENTIAL Routine 04/21/2019 7:00 AM PROPERTY SITE MANAGER LIPASE Routine 04/21/2019 7:00 AM PROPERTY SITE MANAGER AMYLASE Routine 04/21/2019 7:00 AM PROPERTY SITE MANAGER BASIC METABOLIC PANEL Routine 04/21/2019 7:00 AM PROPERTY SITE MANAGER US ABDOMEN LIMITED 04/21/2019 12 :00 AM PROPERTY SITE MANAGER CBC WITH AUTO DIFFERENTIAL Routine 04/20/2019 10:00 AM PROPERTY SITE MANAGER BASIC METABOLIC PANEL Routine 04/20/2019 10:[address] ABDOMEN PELVIS WO CONTRAST 04/20/2019 12:00 AM PROPERTY SITE MANAGER CBC WITH AUTO DIFFERENTIAL Routine 04/19/2019 8:05 AM PROPERTY SITE MANAGER BASIC METABOLIC PANEL Routine 04/19/2019 8:05 AM PROPERTY SITE MANAGER RBC TRANSFUSION ORDER Routine 04/17/2019 7:59 PM PROPERTY SITE MANAGER ANTIBODY SCREEN Routine 04/17/2019 7:59 PM PROPERTY SITE MANAGER TYPE AND SCREEN Routine 04/17/2019 7:59 PM PROPERTY SITE MANAGER LIPASE Routine 04/17/2019 3:45 PM PROPERTY SITE MANAGER COMPREHENSIVE METABOLIC PANEL Routine 04/17/2019 3:45 PM PROPERTY SITE MANAGER CBC WITH AUTO DIFFERENTIAL Routine 04/17/2019 2:42 PM PROPERTY SITE MANAGER URINALYSIS, COMPLETE Routine 04/17/2019 2:35 PM PROPERTY SITE MANAGER documented in this encounter Results * (ABNORMAL) CBC with auto differential (04/23/2019 2:48 PM PROPERTY SITE MANAGER) WBC 6.1 3.8 - 9.9 X10 3/ul [facility] RBC 2.58(L) 3.90 - 5.20 x10 6/ul [facility] Hemoglobin 7.5(L) 11.9 - 15.5 g/dL [facility] Hct 24.6(L) 35.6 - 45.5 % [facility] MCV 95.3 81.3 - 96.[address] [facility] MCH 29.1 27.1 - 33.[address] [facility] MCHC 30.5(L) 32.3 - 35.7 g/dl [facility] RDW 21.4(H) 11.1 - 14.9 % [facility] Plt Count 156 150 - 400 x10 3/ul [facility] MPV 10.0 9.1 - 12.[address] [facility] Neut % 69.5 % [facility] Immature Gran % 0.5 % [facility] Lymph % 17.8 % [facility] Karnes % 7.8 % [facility] Eos % 4.2 % [facility] AUTO BASO % 0.2 % [facility] NEUTROPHIL ABS # 4.3 1.7 - 6.5 x10 3/ul [facility] Immature Gran # 0.0 0.0 - 0.1 x10 3/ul [facility] Absolute Lymphs (auto) 1.1 0.8 - 3.3 x10 3/ul [facility] Absolute Monos (auto) 0.5 0.2 - 0.8 x10 3/ul [facility] Absolute Eos (auto) 0.3 0.0 - 0.5 x10 3/ul [facility] BASOPHIL ABS # 0.0 0.0 - 0.1 x10 3/ul [facility] Nucleat RBC Rel Count 0.0 #/100WBC [facility] NRBC abs 0.00 0.00 - 0.01 x10 3/ul [facility] Absolute Neutrophils 4,300 200 - 8,000 /ul [facility] 04/23/2019 2:48 PM PROPERTY SITE MANAGER 04/23/2019 3:15 PM PROPERTY SITE MANAGER Narrative Resulting Agency Comment IN us Martha Duke MD LAB BLOOD ORDERABLES Nika l Result [facility] [address] [place] [address], [facility] [phone] * (ABNORMAL) CBC with auto differential (04/23/2019 6:44 AM PROPERTY SITE MANAGER) WBC 5.8 3.8 - 9.9 X10 3/ul [facility] RBC 2.39(L) 3.90 - 5.20 x10 6/ul [facility] Hemoglobin 7.0(L) 11.9 - 15.5 g/dL [facility] Comment: Results reviewed Hct 22.2(L) 35.6 - 45.5 % [facility] MCV 92.9 81.3 - 96.[address] [facility] MCH 29.3 27.1 - 33.[address] [facility] MCHC 31.5(L) 32.3 - 35.7 g/dl [facility] RDW 21.1(H) 11.1 - 14.9 % [facility] Plt Count 136(L) 150 - 400 x10 3/ul [facility] MPV 10.0 9.1 - 12.[address] [facility] Neut % 68.5 % [facility] Immature Gran % 0.3 % [facility] Lymph % 19.4 % [facility] Karnes % 7.6 % [facility] Eos % 4.0 % [facility] AUTO BASO % 0.2 % [facility] NEUTROPHIL ABS # 4.0 1.7 - 6.5 x10 3/ul [facility] Immature Gran # 0.0 0.0 - 0.1 x10 3/ul [facility] Absolute Lymphs (auto) 1.1 0.8 - 3.3 x10 3/ul [facility] Absolute Monos (auto) 0.4 0.2 - 0.8 x10 3/ul [facility] Absolute Eos (auto) 0.2 0.0 - 0.5 x10 3/ul [facility] BASOPHIL ABS # 0.0 0.0 - 0.1 x10 3/ul [facility] Nucleat RBC Rel Count 0.0 #/100WBC [facility] NRBC abs 0.00 0.00 - 0.01 x10 3/ul [facility] Absolute Neutrophils 4,000 200 - 8,000 /ul [facility] 04/23/2019 6:44 AM PROPERTY SITE MANAGER 04/23/2019 7:18 AM PROPERTY SITE MANAGER Narrative Resulting Agency Comment IN us Geo Pool MD LAB BLOOD ORDERABLES Final Result [facility] [address] [place] [address], [facility] [phone] * (ABNORMAL) Basic metabolic panel (04/23/2019 6:44 AM PROPERTY SITE MANAGER) Sodium 139 135 - 145 mmol/L [facility] Potassium 3.8 3.3 - 5.1 mmol/L [facility] Chloride 108 96 - 108 mmol/L [facility] Carbon Dioxide 25 22 - 32 mmol/L [facility] Anion Gap 6(L) 7 - [address] [facility] Glucose 89 70 - 100 mg/dL [facility] BUN 20 8 - 25 mg/dL [facility] Creatinine 0.7 0.5 - 1.1 mg/dL [facility] Comment: NOTE: Estimated GFR (Cockroft-Gault) will NOT be calculated unless patient Height and Weight were entered. Also, Kidney Disease Stage (GFR) and Estimated GFR (Cockroft-Gault) will NOT be calculated if Creatinine result is <0.2. Kidney Disease Stage >90 mL/MIN [facility] Comment: NOTE; ??The GFR is an [...] failure or on dialysis Est GFR (Cockcroft-G) 136 ml/MIN [facility] Comment: Estimated GFR(Cockroft-Gault)is used to calculate patient medication dosage Calcium 9.0 8.6 - 10.3 mg/dL [facility] 04/23/2019 6:44 AM PROPERTY SITE MANAGER 04/23/2019 7:18 AM PROPERTY SITE MANAGER Narrative Resulting Agency Comment IN Geo Pool MD LAB BLOOD ORDERABLES Final Result Performing Organization Address City/State/[facility] Co de Phone Number [facility] [address] [place] [address], [facility] [phone] * (ABNORMAL) CBC with auto differential (04/22/2019 4:28 PM PROPERTY SITE MANAGER) WBC 6.4 3.8 - 9.9 X10 3/ul [facility] RBC 2.79(L) 3.90 - 5.20 x10 6/ul [facility] Hemoglobin 8.3(L) 11.9 - 15.5 g/dL [facility] Hct 26.9(L) 35.6 - 45.5 % [facility] MCV 96.4 81.3 - 96.[address] [facility] MCH 29.7 27.1 - 33.[address] [facility] MCHC 30.9(L) 32.3 - 35.7 g/dl [facility] RDW 22.3(H) 11.1 - 14.9 % [facility] Plt Count 149(L) 150 - 400 x10 3/ul [facility] MPV 10.2 9.1 - 12.[address] [facility] Neut % 68.2 % [facility] Immature Gran % 0.3 % [facility] Lymph % 20.3 % [facility] Karnes % 7.2 % [facility] Eos % 3.8 % [facility] AUTO BASO % 0.2 % [facility] NEUTROPHIL ABS # 4.3 1.7 - 6.5 x10 3/ul [facility] Immature Gran # 0.0 0.0 - 0.1 x10 3/ul [facility] Absolute Lymphs (auto) 1.3 0.8 - 3.3 x10 3/ul [facility] Absolute Monos (auto) 0.5 0.2 - 0.8 x10 3/ul [facility] Absolute Eos (auto) 0.2 0.0 - 0.5 x10 3/ul [facility] BASOPHIL ABS # 0.0 0.0 - 0.1 x10 3/ul [facility] Nucleat RBC Rel Count 0.0 #/100WBC [facility] NRBC abs 0.00 0.00 - 0.01 x10 3/ul [facility] Absolute Neutrophils 4,300 200 - 8,000 /ul [facility] 04/22/2019 4:28 PM PROPERTY SITE MANAGER 04/22/2019 4:53 PM PROPERTY SITE MANAGER Narrative Resulting Agency Comment IN us Martha Duke MD LAB BLOOD ORDERABLES Nika perez Result [facility] [address] [place] [address], [facility] [phone] * (ABNORMAL) CBC with auto differential (04/22/2019 8:34 AM PROPERTY SITE MANAGER) WBC 6.6 3.8 - 9.9 X10 3/ul [facility] RBC 2.79(L) 3.90 - 5.20 x10 6/ul [facility] Comment: Results reviewed Hemoglobin 8.4(L) 11.9 - 15.5 g/dL [facility] Comment: Results reviewed Hct 26.8(L) 35.6 - 45.5 % [facility] MCV 96.1 81.3 - 96.[address] [facility] MCH 30.1 27.1 - 33.[address] [facility] MCHC 31.3(L) 32.3 - 35.7 g/dl [facility] RDW 21.8(H) 11.1 - 14.9 % [facility] Plt Count 150 150 - 400 x10 3/ul [facility] MPV 10.1 9.1 - 12.[address] [facility] Neut % 67.0 % [facility] Immature Gran % 0.5 % [facility] Lymph % 19.3 % [facility] Karnes % 8.3 % [facility] Eos % 4.7 % [facility] AUTO BASO % 0.2 % [facility] NEUTROPHIL ABS # 4.5 1.7 - 6.5 x10 3/ul [facility] Immature Gran # 0.0 0.0 - 0.1 x10 3/ul [facility] Absolute Lymphs (auto) 1.3 0.8 - 3.3 x10 3/ul [facility] Absolute Monos (auto) 0.6 0.2 - 0.8 x10 3/ul [facility] Absolute Eos (auto) 0.3 0.0 - 0.5 x10 3/ul [facility] BASOPHIL ABS # 0.0 0.0 - 0.1 x10 3/ul [facility] Nucleat RBC Rel Count 0.0 #/100WBC [facility] NRBC abs 0.00 0.00 - 0.01 x10 3/ul [facility] Absolute Neutrophils 4,500 200 - 8,000 /ul [facility] 04/22/2019 8:34 AM PROPERTY SITE MANAGER 04/22/2019 9:04 AM PROPERTY SITE MANAGER Narrative Resulting Agency Comment IN Geo Pool MD LAB BLOOD ORDERABLES Final Result [address] [phone] * RBC TRANSFUSION ORDER (04/21/2019 8:29 AM PROPERTY SITE MANAGER) RBC TRANSFUSION ORDER [id number] OP RBCORDER TRANSFUSED 04/21/19 1025 [id number] OP RBCORDER TRANSFUSED 04/21/[address] [facility] 04/21/2019 8:29 AM PROPERTY SITE MANAGER 04/21/2019 8:54 AM PROPERTY SITE MANAGER Narrative Resulting Agency Comment IN Geo Pool MD LAB BLOOD ORDERABLES Final Result Performing Organization Address [facility]/ZIP Co de Phone Number [address] [phone] * Antibody screen (04/21/2019 8:29 AM PROPERTY SITE MANAGER) Antibody Screen NEGATIVE [facility] 04/21/2019 8:29 AM PROPERTY SITE MANAGER 04/21/2019 8:47 AM PROPERTY SITE MANAGER Narrative Resulting Agency Comment IN Geo Pool MD LAB BLOOD BANK TEST ORDERAB LES Final Result Performing Organization Address City/[facility]/ZIP Co de Phone Number [address] [phone] * Type and screen (04/21/2019 8:29 AM PROPERTY SITE MANAGER) Blood Type OP [facility] 04/21/2019 8:29 AM PROPERTY SITE MANAGER 04/21/2019 8:47 AM PROPERTY SITE MANAGER Narrative [facility] - 04/21/2019 9:43 AM PROPERTY SITE MANAGER N Resulting Agency Comment IN Geo Pool MD LAB BLOOD BANK TEST ORDERAB LES Final Result Performing Organization Address City/[facility]/ZIP Co de Phone Number [address] [phone] * (ABNORMAL) Lipase (04/21/2019 7:00 AM PROPERTY SITE MANAGER) [facility] Lipase 10(L) 13 - 60 U/L [facility] 04/21/2019 7:00 AM PROPERTY SITE MANAGER 04/21/2019 7:30 AM PROPERTY SITE MANAGER Narrative Resulting Agency Comment IN Geo Pool MD LAB BLOOD ORDERABLES Final Result Performing Organization Address [facility] Co de Phone Number [address] [phone] * Amylase (04/21/2019 7:00 AM PROPERTY SITE MANAGER) [facility] Amylase 33 28 - 100 U/L [facility] 04/21/2019 7:00 AM PROPERTY SITE MANAGER 04/21/2019 7:30 AM PROPERTY SITE MANAGER Narrative Resulting Agency Comment IN Geo Pool MD LAB BLOOD ORDERABLES Final Result Performing Organization Address [facility] Co de Phone Number [address] [phone] * (ABNORMAL) Basic metabolic panel (04/21/2019 7:00 AM PROPERTY SITE MANAGER) [facility] Sodium 138 135 - 145 mmol/L [facility] Potassium 4.1 3.3 - 5.1 mmol/L [facility] Chloride 107 96 - 108 mmol/L [facility] Carbon Dioxide 26 22 - 32 mmol/L [facility] Anion Gap 5(L) 7 - [address] [facility] Glucose 96 70 - 100 mg/dL [facility] BUN 20 8 - 25 mg/dL [facility] Creatinine 0.6 0.5 - 1.1 mg/dL [facility] Comment: NOTE: Estimated GFR (Cockroft-Gault) will NOT be calculated unless patient Height and Weight were entered. Also, Kidney Disease Stage (GFR) and Estimated GFR (Cockroft-Gault) will NOT be calculated if Creatinine result is <0.2. Kidney Disease Stage >90 mL/MIN [facility] Comment: NOTE; ??The GFR is an [...] failure or on dialysis Est GFR (Cockcroft-G) 159 ml/MIN [facility] Comment: Estimated GFR(Cockroft-Gault)is used to calculate patient medication dosage Calcium 8.8 8.6 - 10.3 mg/dL [facility] 04/21/2019 7:00 AM PROPERTY SITE MANAGER 04/21/2019 7:30 AM PROPERTY SITE MANAGER Narrative Resulting Agency Comment IN us Geo Pool MD LAB BLOOD ORDERABLES Final Result [facility] [address] [place] [address], [facility] [phone] * (ABNORMAL) CBC with auto differential (04/21/2019 7:00 AM PROPERTY SITE MANAGER) WBC 5.6 3.8 - 9.9 X10 3/ul [facility] RBC 2.13(L) 3.90 - 5.20 x10 6/ul [facility] Comment: Results reviewed Hemoglobin 6.3(LL) 11.9 - 15.5 g/dL [facility] Comment: CRITICAL VALUE CALLED and REPEATED. at:0740 04/21/19 by:Romy Alves to: LUIS MANUEL [id number] Hct 20.1(L) 35.6 - 45.5 % [facility] MCV 94.4 81.3 - 96.[address] [facility] MCH 29.6 27.1 - 33.[address] [facility] MCHC 31.3(L) 32.3 - 35.7 g/dl [facility] RDW 23.2(H) 11.1 - 14.9 % [facility] Plt Count 125(L) 150 - 400 x10 3/ul [facility] MPV 10.5 9.1 - 12.[address] [facility] Neut % 66.3 % [facility] Immature Gran % 0.4 % [facility] Lymph % 20.6 % [facility] Karnes % 8.6 % [facility] Eos % 3.9 % [facility] AUTO BASO % 0.2 % [facility] NEUTROPHIL ABS # 3.7 1.7 - 6.5 x10 3/ul [facility] Immature Gran # 0.0 0.0 - 0.1 x10 3/ul [facility] Absolute Lymphs (auto) 1.2 0.8 - 3.3 x10 3/ul [facility] Absolute Monos (auto) 0.5 0.2 - 0.8 x10 3/ul [facility] Absolute Eos (auto) 0.2 0.0 - 0.5 x10 3/ul [facility] BASOPHIL ABS # 0.0 0.0 - 0.1 x10 3/ul [facility] Nucleat RBC Rel Count 0.0 #/100WBC [facility] NRBC abs 0.00 0.00 - 0.01 x10 3/ul [facility] Absolute Neutrophils 3,700 200 - 8,000 /ul [facility] 04/21/2019 7:00 AM PROPERTY SITE MANAGER 04/21/2019 7:30 AM PROPERTY SITE MANAGER Narrative Resulting Agency Comment IN us Geo Pool MD LAB BLOOD ORDERABLES Final Result Performing Organization Address City/State/[facility] Co de Phone Number [facility] [address] [phone] * US Abdomen Limited (04/21/2019 12:00 AM PROPERTY SITE MANAGER) Anatomical Region Laterality Modality Abdomen N/A Ultrasound 04/21/2019 11:2 4 AM PROPERTY SITE MANAGER Narrative 04/21/2019 11:26 AM PROPERTY SITE MANAGER Patient Name: TIARRA ADDISON ?Ordering Dr: Geo Pool MD ?? D.O.B: 1970 ? Exam Date: 04/21/19 ?? 0000 ?? Age: 48 ?Sex: Female ? MR#: [id number] ?? Loc: ??N286-02 ? RADIOLOGY REPORT ?? Order #[id number] ?? Ultrasound ? US Abdomen/Lmt Exam Spec Organ ? Signed ?? EXAM DESCRIPTION: ??US Abdomen/Lmt Exam Spec Organ ? REASON FOR STUDY: ??Right-sided abdominal pain for 2 days. ? TECHNIQUE: ??Ultrasound of the right upper quadrant of the abdomen was ?? performed with grayscale and color doppler. ? COMPARISON: ??None. ? FINDINGS: ? PANCREAS:Visualized portions of the pancreas are within normal limits. ?? Portions of the pancreatic body and tail are obscured due to bowel gas. ? LIVER: The liver appears increased in echogenicity with a coarsened ?? echotexture. ??The liver size is normal at 17 cm. ??No focal lesion identified. ?? The main portal vein is patent with antegrade flow. ? GALLBLADDER: The gallbladder appears unremarkable. No cholelithiasis. ??No ?? gallbladder wall thickening or pericholecystic fluid. No positive sonographic ?? Murdock's sign reported. ? BILIARY: There is no intrahepatic or extrahepatic biliary ductal dilatation. ?? Common bile duct measures 0.2 cm in diameter. ? RIGHT KIDNEY: Normal size. Normal echogenicity. No solid mass or cyst. ??No ?? hydronephrosis. Measures 9.8 cm in length. ? OTHER: No other significant findings. ? IMPRESSION: ? 1. ??No evidence of cholelithiasis or cholecystitis. ? 2. ??Mild hepatic steatosis. ? THIS IS AN ELECTRONICALLY VERIFIED FINAL REPORT ?? 04/21/2019 11:26 AM - Electronically signed by Hi Arnold M.D. ?? Hi Arnold M.D. ? CH ?? D: ??04/21/2019 11:26 AM ?? T: ? Report ID: [id number] ?? Reading Location: ??[id number] ? REPORT ELECTRONICALLY SIGNED IN OTHER VENDOR SYSTEM ?? Resulting Agency Comment I Procedure Note Hi Arnold Jr., MD - 04/21/2019 Patient Name: TIARRA ADDISONOrdering Dr: Geo oPol MD, D.O.B: 1970 Exam Date: 04/21/19 0000 Age: 48 Sex: Female MR#: [id number] Loc: N286-02 RADIOLOGY REPORT Order #[id number] Ultrasound US Abdomen/Lmt Exam Spec Organ Signed EXAM DESCRIPTION: US Abdomen/Lmt Exam Spec Organ REASON FOR STUDY: Right-sided abdominal pain for 2 days. TECHNIQUE: Ultrasound of the right upper quadrant of the abdomen was performed with grayscale and color doppler. COMPARISON: None. FINDINGS: PANCREAS:Visualized portions of the pancreas are within normal limits. Portions of the pancreatic body and tail are obscured due to bowel gas. LIVER: The liver appears increased in echogenicity with a coarsened echotexture. The liver size is normal at 17 cm. No focal lesionidentified. The main portal vein is patent with antegrade flow. GALLBLADDER: The gallbladder appears unremarkable. No cholelithiasis. No gallbladder wall thickening or pericholecystic fluid. No positivesonographic Murdock's sign reported. BILIARY: There is no intrahepatic or extrahepatic biliary ductaldilatation. Common bile duct measures 0.2 cm in diameter. RIGHT KIDNEY: Normal size. Normal echogenicity. No solid mass or cyst.No hydronephrosis. Measures 9.8 cm in length. OTHER: No other significant findings. IMPRESSION: 1. No evidence of cholelithiasis or cholecystitis. 2. Mild hepatic steatosis. THIS IS AN ELECTRONICALLY VERIFIED FINAL REPORT 04/21/2019 11:26 AM - Electronically signed by Hi Arnold M.D. T: Report ID: [id number] Reading Location: [id number] REPORT ELECTRONICALLY SIGNED IN OTHER VENDOR SYSTEM us Geo Pool MD [facility] PROCEDURES Final Res ult * (ABNORMAL) Basic metabolic panel (04/20/2019 10:00 AM PROPERTY SITE MANAGER) Sodium 132(L) 135 - 145 mmol/L [facility] Potassium 4.0 3.3 - 5.1 mmol/L [facility] Chloride 104 96 - 108 mmol/L [facility] Carbon Dioxide 24 22 - 32 mmol/L [facility] Anion Gap 4(L) 7 - [address] [facility] Glucose 92 70 - 100 mg/dL [facility] BUN 16 8 - 25 mg/dL [facility] Creatinine 0.7 0.5 - 1.1 mg/dL [facility] Comment: NOTE: Estimated GFR (Cockroft-Gault) will NOT be calculated unless patient Height and Weight were entered. Also, Kidney Disease Stage (GFR) and Estimated GFR (Cockroft-Gault) will NOT be calculated if Creatinine result is <0.2. Kidney Disease Stage >90 mL/MIN [facility] Comment: NOTE; ??The GFR is an [...] failure or on dialysis Est GFR (Cockcroft-G) 136 ml/MIN [facility] Comment: Estimated GFR(Cockroft-Gault)is used to calculate patient medication dosage Calcium 9.2 8.6 - 10.3 mg/dL [facility] 04/20/2019 10:0 0 AM [employer]ITE [employer] 04/20/2019 10:22 AM PROPERTY SITE MANAGER Narrative Resulting Agency Comment IN us Geo Pool MD LAB BLOOD ORDERABLES Final Result [facility] [address] [place] [address], [facility] [phone] * (ABNORMAL) CBC with auto differential (04/20/2019 10:00 AM PROPERTY SITE MANAGER) WBC 5.3 3.8 - 9.9 X10 3/ul [facility] RBC 2.76(L) 3.90 - 5.20 x10 6/ul [facility] Comment: Results reviewed Hemoglobin 8.0(L) 11.9 - 15.5 g/dL [facility] Comment: Results reviewed Hct 25.6(L) 35.6 - 45.5 % [facility] MCV 92.8 81.3 - 96.[address] [facility] MCH 29.0 27.1 - 33.[address] [facility] MCHC 31.3(L) 32.3 - 35.7 g/dl [facility] RDW 22.4(H) 11.1 - 14.9 % [facility] Plt Count 123(L) 150 - 400 x10 3/ul [facility] MPV 9.8 9.1 - 12.[address] [facility] Neut % 62.7 % [facility] Immature Gran % 0.4 % [facility] Lymph % 23.0 % [facility] Karnes % 8.6 % [facility] Eos % 5.1 % [facility] AUTO BASO % 0.2 % [facility] NEUTROPHIL ABS # 3.3 1.7 - 6.5 x10 3/ul [facility] [facility] Immature Gran # 0.0 0.0 - 0.1 x10 3/ul [facility] Absolute Lymphs (auto) 1.2 0.8 - 3.3 x10 3/ul [facility] Absolute Monos (auto) 0.5 0.2 - 0.8 x10 3/ul [facility] Absolute Eos (auto) 0.3 0.0 - 0.5 x10 3/ul [facility] BASOPHIL ABS # 0.0 0.0 - 0.1 x10 3/ul [facility] Nucleat RBC Rel Count 0.0 #/100WBC [facility] NRBC abs 0.00 0.00 - 0.01 x10 3/ul [facility] Absolute Neutrophils 3,300 200 - 8,000 /ul [facility] 04/20/2019 10:0 0 AM PROPERTY SITE MANAGER 04/20/2019 10:22 AM PROPERTY SITE MANAGER Narrative Resulting Agency Comment IN us Geo Pool MD LAB BLOOD ORDERABLES Final Result [facility] [address] [place] [address], [facility] [phone] * CT Abdomen Pelvis WO Contrast (04/20/2019 12:00 AM PROPERTY SITE MANAGER) Anatomical Region Laterality Modality Body N/A Computed Tomogra phy 04/20/2019 10:3 2 AM PROPERTY SITE MANAGER Narrative 04/20/2019 10:44 AM PROPERTY SITE MANAGER Patient Name: TIARRA ADDISON ?Ordering Dr: Geo Pool MD ?? D.O.B: 1970 ? Exam Date: 04/20/19 ?? 0000 ?? Age: 48 ?Sex: Female ? MR#: [id number] ?? Loc: ??N286-02 ? RADIOLOGY REPORT ?? Order #[id number] ?? CT Scan ? CT Abd/Pelvis WO IV Contrast ? Signed ?? EXAM DESCRIPTION: ??CT Abd/Pelvis WO IV Contrast ? REASON FOR STUDY: ??Right lower quadrant and epigastric pain today. ??History of ?? ulcer seen on upper endoscopy. ? TECHNIQUE: ??CT scan of the abdomen and pelvis performed without intravenous ?? and with oral contrast using helical scanning technique. Reconstructed coronal ?? and sagittal MPR images reviewed. All images stored on PACS. ??Automated ?? exposure control was used as a dose optimization technique for this ?? examination. ? COMPARISON: ??03/03/2019 ? FINDINGS: ? The sensitivity for detection of visceral lesions is diminished without the ?? use of intravenous contrast. ? LOWER CHEST: No significant pulmonary abnormalities. No effusion. ? LIVER: The liver is normal in size. ??No suspicious lesion is seen on this ?? unenhanced CT examination ? GALLBLADDER: The gallbladder is partially distended. ??There is high density ?? layering within the gallbladder lumen which may represent cholelithiasis. ? There is no significant pericholecystic stranding to suggest acute ?? cholecystitis. ? BILE DUCTS: No intrahepatic or extrahepatic ductal dilatation. ? SPLEEN: The spleen is normal in size. ??Calcified granulomas noted. ? PANCREAS: The pancreas is normal in size. ??There is mild fatty replacement of ?? the uncinate. ??There is moderate stranding within the pancreaticoduodenal ?? groove. ? ADRENALS: Normal. ? KIDNEYS/URINARY TRACT: The kidneys are normal in size without hydronephrosis. ? No significant perinephric stranding. ??No stone is seen within either kidney. ? The bladder is partially distended. ? GI: There is stool seen throughout the colon which appears nondilated without ?? evidence of obstruction. ??The appendix is nondilated (sagittal 111). ??The ?? patient is status post partial gastrectomy. ??The stomach is decompressed. ? There is thickening of the duodenum at the level of the pancreaticoduodenal ?? groove. ??The small bowel small bowel anastomosis is patent with oral contrast ?? seen within. ??No gross extraluminal contrast is seen. ??No gross small bowel ?? wall thickening or evidence of obstruction. ? PERITONEUM: No free intraperitoneal air or fluid is seen. ??There are prominent ?? mesenteric lymph nodes, grossly unchanged, nonenlarged by size criteria and ?? likely reactive. ? RETROPERITONEUM: Prominent indeterminate retroperitoneal lymph nodes are also ?? noted which are grossly stable. ??For reference is a stable 10 mm right ?? external iliac lymph node (106) and a 10 mm left external iliac lymph node ?? (122). ? REPRODUCTIVE: No significant abnormality. ? VASCULATURE: Again noted is a filter within the infrarenal cava. ? MUSCULOSKELETAL: No significant abnormality. ? OTHER: No other abnormality. ? IMPRESSION: ? 1. ??Moderate stranding within the pancreaticoduodenal groove. ??This may ?? represent groove pancreatitis or duodenitis. ??Recommend correlation with serum ?? lipase. ??In this patient with reported ulcer, upper endoscopy may be performed ?? for further evaluation. ? 2. ??Possible cholelithiasis within a partially distended gallbladder. ??A right ?? upper quadrant sonogram could be performed for further evaluation. ? 3. ??Grossly stable prominent retroperitoneal lymph nodes. ??Recommend close ?? attention on subsequent follow-up studies. ? THIS IS AN ELECTRONICALLY VERIFIED FINAL REPORT ?? 04/20/2019 10:44 AM - Electronically signed by Kaiser Taylor M.D. ?? Kaiser Taylor M.D. ? AG ?? D: ??04/20/2019 10:44 AM ?? T: ? Report ID: [id number] ?? Reading Location: ??[id number] ? REPORT ELECTRONICALLY SIGNED IN OTHER VENDOR SYSTEM ?? Resulting Agency Comment I Procedure Note Kaiser Taylor MD - 04/20/2019 Patient Name: TIARRA ADDISON Jun[place] Dr: Geo Pool MD D.O.B: 1970 Exam Date: 04/20/19 0000 Age: 48 Sex: Female MR#: [id number] Loc: N286-02 RADIOLOGY REPORT Order #[id number] CT Scan CT Abd/Pelvis WO IV Contrast Signed EXAM DESCRIPTION: CT Abd/Pelvis WO IV Contrast REASON FOR STUDY: Right lower quadrant and epigastric pain today.History of ulcer seen on upper endoscopy. TECHNIQUE: CT scan of the abdomen and pelvis performed withoutintravenous and with oral contrast using helical scanning technique. Reconstructedcoronal and sagittal MPR images reviewed. All images stored on PACS. Automated exposure control was used as a dose optimization technique for this examination. COMPARISON: 03/03/2019 FINDINGS: The sensitivity for detection of visceral lesions is diminished withoutthe use of intravenous contrast. LOWER CHEST: No significant pulmonary abnormalities. No effusion. LIVER: The liver is normal in size. No suspicious lesion is seen on this unenhanced CT examination GALLBLADDER: The gallbladder is partially distended. There is highdensity layering within the gallbladder lumen which may represent cholelithiasis. There is no significant pericholecystic stranding to suggest acute cholecystitis. BILE DUCTS: No intrahepatic or extrahepatic ductal dilatation. SPLEEN: The spleen is normal in size. Calcified granulomas noted. PANCREAS: The pancreas is normal in size. There is mild fattyreplacement of the uncinate. There is moderate stranding within the pancreaticoduodenal groove. ADRENALS: Normal. KIDNEYS/URINARY TRACT: The kidneys are normal in size withouthydronephrosis. No significant perinephric stranding. No stone is seen within eitherkidney. The bladder is partially distended. GI: There is stool seen throughout the colon which appears nondilatedwithout evidence of obstruction. The appendix is nondilated (sagittal 111). The patient is status post partial gastrectomy. The stomach is decompressed. There is thickening of the duodenum at the level of thepancreaticoduodenal groove. The small bowel small bowel anastomosis is patent with oralcontrast seen within. No gross extraluminal contrast is seen. No gross smallbowel wall thickening or evidence of obstruction. PERITONEUM: No free intraperitoneal air or fluid is seen. There areprominent mesenteric lymph nodes, grossly unchanged, nonenlarged by size criteriaand likely reactive. RETROPERITONEUM: Prominent indeterminate retroperitoneal lymph nodes arealso noted which are grossly stable. For reference is a stable 10 mm right external iliac lymph node (106) and a 10 mm left external iliac lymphnode (122). REPRODUCTIVE: No significant abnormality. VASCULATURE: Again noted is a filter within the infrarenal cava. MUSCULOSKELETAL: No significant abnormality. OTHER: No other abnormality. IMPRESSION: 1. Moderate stranding within the pancreaticoduodenal groove. This may represent groove pancreatitis or duodenitis. Recommend correlation withserum lipase. In this patient with reported ulcer, upper endoscopy may beperformed for further evaluation. 2. Possible cholelithiasis within a partially distended gallbladder. Aright upper quadrant sonogram could be performed for further evaluation. 3. Grossly stable prominent retroperitoneal lymph nodes. Recommendclose attention on subsequent follow-up studies. THIS IS AN ELECTRONICALLY VERIFIED FINAL REPORT 04/20/2019 10:44 AM - Electronically signed by Kaiser Taylor M.D. AG T: Report ID: [id number] Reading Location: [place] [address] REPORT ELECTRONICALLY SIGNED IN OTHER VENDOR SYSTEM Geo Pool MD IMG CT PROCEDURES Final Res ult * (ABNORMAL) Basic metabolic panel (04/19/2019 8:05 AM PROPERTY SITE MANAGER) Sodium 135 135 - 145 mmol/L [facility] Potassium 3.7 3.3 - 5.1 mmol/L [facility] Chloride 104 96 - 108 mmol/L [facility] Carbon Dioxide 25 22 - 32 mmol/L [facility] Anion Gap 6(L) 7 - [address] [facility] Glucose 98 70 - 100 mg/dL [facility] BUN 25 8 - 25 mg/dL [facility] Creatinine 0.7 0.5 - 1.1 mg/dL [facility] Comment: NOTE: Estimated GFR (Cockroft-Gault) will NOT be calculated unless patient Height and Weight were entered. Also, Kidney Disease Stage (GFR) and Estimated GFR (Cockroft-Gault) will NOT be calculated if Creatinine result is <0.2. Kidney Disease Stage >90 mL/MIN [facility] Comment: NOTE; ??The GFR is an [...] failure or on dialysis Est GFR (Cockcroft-G) 136 ml/MIN [facility] Comment: Estimated GFR(Cockroft-Gault)is used to calculate patient medication dosage Calcium 8.9 8.6 - 10.3 mg/dL [facility] 04/19/2019 8:05 AM PROPERTY SITE MANAGER 04/19/2019 8:43 AM PROPERTY SITE MANAGER Narrative Resulting Agency Comment LEELA us Geo Pool MD LAB BLOOD ORDERABLES Final Result [facility] [address] [phone] * (ABNORMAL) CBC with auto differential (04/19/2019 8:05 AM PROPERTY SITE MANAGER) WBC 5.5 3.8 - 9.9 X10 3/ul [facility] RBC 2.12(L) 3.90 - 5.20 x10 6/ul [facility] Hemoglobin 6.1(LL) 11.9 - 15.5 g/dL [facility] Comment: CRITICAL VALUE CALLED and REPEATED. at:0857 04/19/19 by:Nichole Siddiqi to:PHU. [id number] Hct 19.7(L) 35.6 - 45.5 % [facility] MCV 92.9 81.3 - 96.[address] [facility] MCH 28.8 27.1 - 33.[address] [facility] MCHC 31.0(L) 32.3 - 35.7 g/dl [facility] RDW 24.2(H) 11.1 - 14.9 % [facility] Plt Count 107(L) 150 - 400 x10 3/ul [facility] MPV 10.2 9.1 - 12.[address] [facility] Neut % 62.4 % [facility] Immature Gran % 0.2 % [facility] Lymph % 23.1 % [facility] Karnes % 8.8 % [facility] Eos % 5.3 % [facility] AUTO BASO % 0.2 % [facility] NEUTROPHIL ABS # 3.4 1.7 - 6.5 x10 3/ul [facility] Immature Gran # 0.0 0.0 - 0.1 x10 3/ul [facility] Absolute Lymphs (auto) 1.3 0.8 - 3.3 x10 3/ul [facility] Absolute Monos (auto) 0.5 0.2 - 0.8 x10 3/ul [facility] Absolute Eos (auto) 0.3 0.0 - 0.5 x10 3/ul [facility] BASOPHIL ABS # 0.0 0.0 - 0.1 x10 3/ul [facility] Nucleat RBC Rel Count 0.0 #/100WBC [facility] NRBC abs 0.00 0.00 - 0.01 x10 3/ul [facility] Absolute Neutrophils 3,400 200 - 8,000 /ul [facility] 04/19/2019 8:05 AM PROPERTY SITE MANAGER 04/19/2019 8:43 AM PROPERTY SITE MANAGER Narrative Resulting Agency Comment LEELA us Geo Pool MD LAB BLOOD ORDERABLES Final Result Performing Organization Address [facility] [place] [address], [facility] [phone] * RBC TRANSFUSION ORDER (04/17/2019 7:59 PM PROPERTY SITE MANAGER) RBC TRANSFUSION ORDER [id number] ??OP ?RBCORDE R ?TRANSFU SED ? 04/19/19 1014 ??[id number] ??OP ?RBCORDE R ?TRANSFU SED ? 04/19/19 1422 ??[id number] ??OP ?RBCORDE R ?TRANSFU SED ? 04/17/[address] [facility] 04/17/2019 7:59 PM PROPERTY SITE MANAGER 04/17/2019 8:43 PM PROPERTY SITE MANAGER Narrative Resulting Agency Comment IN us Baljeet Phillips MD LAB BLOOD ORDERABLES Nika l Result Performing Organization Address [facility] [place] [address], [facility] [phone] * Antibody screen (04/17/2019 7:59 PM PROPERTY SITE MANAGER) Pathologist [facility] Antibody Screen NEGATIVE [facility] 04/17/2019 7:59 PM PROPERTY SITE MANAGER 04/17/2019 8:02 PM PROPERTY SITE MANAGER Narrative Resulting Agency Comment ER us Baljeet Phillips MD LAB BLOOD BANK TEST ORDER ED Final Result Performing Organization Address [facility] [place] [address], [facility] [phone] * Type and screen (04/17/2019 7:59 PM PROPERTY SITE MANAGER) Blood Type OP [facility] 04/17/2019 7:59 PM PROPERTY SITE MANAGER 04/17/2019 8:02 PM PROPERTY SITE MANAGER Narrative [facility] - 04/17/2019 8:42 PM PROPERTY SITE MANAGER Rm# 3 N Resulting Agency Comment ER us Baljeet Phillips MD LAB BLOOD BANK TEST ORDER ED Final Result [address] [phone] * (ABNORMAL) Lipase (04/17/2019 3:45 PM PROPERTY SITE MANAGER) Pathologist [facility] Lipase 10(L) 13 - 60 U/L [facility] 04/17/2019 3:45 PM PROPERTY SITE MANAGER 04/17/2019 3:49 PM PROPERTY SITE MANAGER Narrative [facility] - 04/17/2019 4:13 PM PROPERTY SITE MANAGER redraw;previous specimen hemolyzed. Resulting Agency Comment ER us Notinfile Unknown LAB BLOOD ORDERABLES [place] [address], [facility] [phone] * (ABNORMAL) Comprehensive metabolic panel (04/17/2019 3:45 PM PROPERTY SITE MANAGER) [facility] Sodium 138 135 - 145 mmol/L [facility] Potassium 4.0 3.3 - 5.1 mmol/L [facility] Chloride 104 96 - 108 mmol/L [facility] Carbon Dioxide 24 22 - 32 mmol/L [facility] Anion Gap 10 7 - [address] [facility] Glucose 116(H) 70 - 100 mg/dL [facility] BUN 25 8 - 25 mg/dL [facility] Creatinine 0.7 0.5 - 1.1 mg/dL [facility] Comment: NOTE: Estimated GFR (Cockroft-Gault) will NOT be calculated unless patient Height and Weight were entered. Also, Kidney Disease Stage (GFR) and Estimated GFR (Cockroft-Gault) will NOT be calculated if Creatinine result is <0.2. Kidney Disease Stage >90 mL/MIN [facility] Comment: NOTE; ??The GFR is an [...] failure or on dialysis Est GFR (Cockcroft-G) 135 ml/MIN [facility] Comment: Estimated GFR(Cockroft-Gault)is used to calculate patient medication dosage Calcium 9.2 8.6 - 10.3 mg/dL [facility] Total Protein 6.9 6.4 - 8.3 g/dL [facility] Albumin 3.3(L) 3.5 - 5.0 g/dL [facility] Globulin 3.6(H) 2.3 - 3.5 gm/dL [facility] Albumin/Globulin Ratio 0.9(L) 1.1 - 1.[address] [facility] Total Bilirubin 0.6 0.0 - 1.2 mg/dL [facility] AST 17 0 - 32 U/L [facility] ALT 9 0 - 33 U/L [facility] Alkaline Phosphatase 78 35 - 104 U/L [facility] 04/17/2019 3:45 PM PROPERTY SITE MANAGER 04/17/2019 3:49 PM PROPERTY SITE MANAGER Narrative [facility] - 04/17/2019 4:13 PM PROPERTY SITE MANAGER redraw;previous specimen hemolyzed. Resulting Agency Comment ER us Notinfile Unknown LAB BLOOD ORDERABLES Final Res ult [facility] [address] [place] [address], [facility] [phone] * (ABNORMAL) CBC with auto differential (04/17/2019 2:42 PM PROPERTY SITE MANAGER) WBC 6.4 3.8 - 9.9 X10 3/ul [facility] RBC 2.88(L) 3.90 - 5.20 x10 6/ul [facility] Hemoglobin 8.4(L) 11.9 - 15.5 g/dL [facility] Hct 26.7(L) 35.6 - 45.5 % [facility] MCV 92.7 81.3 - 96.[address] [facility] MCH 29.2 27.1 - 33.[address] [facility] MCHC 31.5(L) 32.3 - 35.7 g/dl [facility] RDW 25.6(H) 11.1 - 14.9 % [facility] Plt Count 156 150 - 400 x10 3/ul [facility] MPV 10.8 9.1 - 12.[address] [facility] Neut % 68.1 % [facility] Immature Gran % 0.3 % [place] Lymph % 23.1 % [facility] Karnes % 5.5 % [facility] Eos % 2.8 % [facility] AUTO BASO % 0.2 % [facility] NEUTROPHIL ABS # 4.4 1.7 - 6.5 x10 3/ul [facility] Immature Gran # 0.0 0.0 - 0.1 x10 3/ul [facility] Absolute Lymphs (auto) 1.5 0.8 - 3.3 x10 3/ul [facility] Absolute Monos (auto) 0.4 0.2 - 0.8 x10 3/ul [facility] Absolute Eos (auto) 0.2 0.0 - 0.5 x10 3/ul [facility] BASOPHIL ABS # 0.0 0.0 - 0.1 x10 3/ul [facility] Nucleat RBC Rel Count 0.0 #/100WBC [facility] NRBC abs 0.00 0.00 - 0.01 x10 3/ul [facility] Platelet Evaluation AGREE AGREE [facility] Comment: Slide review of platelets correlates with instrument count. Anisocytosis 1+ [facility] Microcytosis 1+ [facility] Macrocytosis 1+ [facility] Absolute Neutrophils 4,400 200 - 8,000 /ul [facility] 04/17/2019 2:42 PM PROPERTY SITE MANAGER 04/17/2019 2:47 PM PROPERTY SITE MANAGER Narrative Resulting Agency Comment ER us Mayank BOWDEN LAB BLOOD ORDERABLES Final Res ult [facility] [address] [place] [address], [facility] [phone] * (ABNORMAL) Urinalysis, Complete (04/17/2019 2:35 PM PROPERTY SITE MANAGER) Ur Collection Type CLEAN CATCH [facility] Urine Color YELLOW YELLOW [facility] Urine Clarity CLEAR CLEAR [facility] Urine Glucose (UA) NORMAL NORMAL mg/dL [facility] Urine Bilirubin NEGATIVE NEGATIVE mg/dl [facility] Urine Ketones NEGATIVE NEGATIVE mg/dL [facility] Ur Specific Rayne 1.020 1.005 - 1.[address] [facility] Urine Blood NEGATIVE NEGATIVE mg/dl [facility] Urine pH 6.0 5.0 - 8.[address] [facility] Urine Protein NEGATIVE NEGATIVE mg/dL [facility] Urine Urobilinogen NORMAL NORMAL mg/dL [facility] Urine Nitrite NEGATIVE NEGATIVE [facility] Ur Leukocyte Esterase 25(A) NEGATIVE Blu/ul [facility] Ur Microscopic Review Indicated or Ordered [facility] Urine RBC 2 0 - 2 /HPF [facility] Urine WBC 7 0 - 2 /HPF [facility] Urine Bacteria Rare /HPF [facility] Ur Squamous Epith Cells Rare /HPF [facility] 04/17/2019 2:35 PM PROPERTY SITE MANAGER 04/17/2019 2:40 PM PROPERTY SITE MANAGER Narrative [facility] - 04/17/2019 2:50 PM PROPERTY SITE MANAGER PBT Clean catch Resulting Agency Comment ER Mayank BOWDEN LAB URINE ORDERABLES Final Res ult [facility] [address] [place] [address], [facility] [phone] documented in this encounter Visit Diagnoses Not on filedocumented in this encounter Care Teams [employer] Account Executive Relationship Specialty Start Date End Date Gerard Sutton MD PCP - General 11/21/18 03/27/20 Unknown, Notinfile 02/18/18 03/27/20 documented as of this encounter
--- OUTSIDE RECORDS SUMMARY | 2024-03-24 18:55 | XMS_ITS | Encounter Summary ---
Author Organization [facility] Healthcare Address [address] [place] [address] Care Team Providers Care Shingle Catcher Name Role Phone Unknown, Notinfile Unavailable Unavailable Gerard Sutton MD Primary Care Provider [phone] Encounter Details Date Type Department Care Team (Late st Contact Info) Description 11/21/2018 9:31 PM CDT - 11/22/2018 2:01 AM CDT Hospital Encounter [facility] [address] [place] [address] Unknown, NotiJoseph Rangel, DO [address] [facility] [address] Discharge Disposition: Discharge to home or self [...] Sign Reading Time Taken Comments Blood Pressure 128/81 11/21/2018 9:35 PM CDT Pulse 88 11/21/2018 9:35 PM CDT Temperature 37 ??C (98.6 ??F) 11/21/2018 9:35 PM CDT Respiratory Rate - - Oxygen Saturation 97% 11/21/2018 9:35 PM CDT Inhaled Oxygen Concentration - - Weight 143 kg (315 lb 4.2 oz) 11/21/2018 9:35 PM CDT Height - - Body Mass Index 49.38 10/25/2018 7:09 PM CDT documented in this [...] Procedure Name Priority Date/Time Associated Diagnosis Comments CARDIOLOGY REPORT 11/24/2018 12: 00 AM CDT TROPONIN I Routine 11/22/2018 12:51 AM CDT CTA CHEST W IV CONTRAST - PE 11/22/2018 12:00 AM CDT APTT Routine 11/21/2018 10:17 PM CDT PROTIME-INR Routine 11/21/2018 10:17 PM CDT TNI WITH LIPID PANEL Routine 11/21/2018 10:14 PM CDT CBC WITH AUTO DIFFERENTIAL Routine 11/21/2018 10:14 PM CDT COMPREHENSIVE METABOLIC PANEL Routine 11/21/2018 10:14 PM CDT ECG 12-LEAD 11/21/2018 9:54 PM CDT ECG 12-LEAD 11/21/2018 9:36 PM CDT XR CHEST 1 VIEW 11/21/2018 12:00 AM CDT documented in this encounter Results * CARDIOLOGY REPORT (11/24/2018 12:00 AM CDT) Anatomical Region Laterality Modality Other Narrative 11/24/2018 12:00 AM CDT Ordered by an unspecified provider. us Historical Provider [facility] KENJI WOLFF Final Result * Troponin I (11/22/2018 12:51 AM CDT) Troponin I <0.300 0.000 - 0.300 ng/mL [facility] Comment: Reference using [facility] Chemiluminescence ? Negative: Repeat in 4-6 hours as indicated. 11/22/2018 12:5 1 AM CDT 11/22/2018 12:54 AM CDT Narrative Resulting Agency Comment ER Jarad Garner STOCK RAISER LAB BLOOD ORDERABLES Nika l Result [facility] [address] [place] [address], [facility] [phone] * CTA Chest W IV Contrast - PE (11/22/2018 12:00 AM CDT) Anatomical Region Laterality Modality Body N/A Computed Tomogra phy 11/22/2018 12:2 7 AM CDT Narrative 11/22/2018 12:35 AM CDT Patient Name: TIARRA HAN ?Ordering Dr: Jarad Garner ANP ?? D.O.B: 1970 ? Exam Date: 11/22/19 ?? 0000 ?? Age: 47 ?Sex: Female ? MR#: [id number] ?? Loc: ? RADIOLOGY REPORT ?? Order #[id number] ?? CT Scan ? CTA Chest W IV Contrast - PE ? Signed ?? EXAM DESCRIPTION: ??CTA Chest W IV Contrast - PE ? REASON FOR STUDY: ??Left-sided chest pain left arm pain for 1 hour tonight ? TECHNIQUE: ??CT angiogram of the chest [...] for this examination. ? CONTRAST TYPE/DOSE: ??80 mL Optiray 350 injected via left antecubital fossa ? COMPARISON: ??10/25/2018 ? FINDINGS: ? VASCULATURE: No identified pulmonary emboli. ? LUNGS: No nodules or masses. No pneumonia. ? PLEURA: No effusion. No pneumothorax. ? MEDIASTINUM/CHARANJIT: No identified masses or abnormal nodes. ? HEART: Heart size is normal with no pericardial effusion. ? AXILLA: No adenopathy. ? CHEST WALL: No masses. ??No subcutaneous air. ? HARDWARE/LINES/TUBES: None. ? UPPER ABDOMEN: Postsurgical changes gastric bypass partially visualized. ? MUSCULOSKELETAL: No significant abnormality. ? OTHER: No significant abnormality. ? IMPRESSION: ??No acute findings. ??No evidence of PE. ? THIS IS AN ELECTRONICALLY VERIFIED FINAL REPORT ?? 11/22/2018 12:35 AM - Electronically signed by Avinash Zendejas M.D. ?? Avinash Zendejas M.D. ? RW ?? D: ??11/22/2018 12:35 AM ?? T: ? Report ID: [id number] ?? Reading Location: ??[id number] ? REPORT ELECTRONICALLY SIGNED IN OTHER VENDOR SYSTEM ?? Resulting Agency Comment E Procedure Note Avinash Zendejas MD - 11/22/2018 Patient Name: FRANK HANCT Evans Dr: Jarad Garner D.O.B: 1970 Exam Date: 11/22/18 0000 Age: 47 Sex: Female MR#: [id number] [id number] Order #[id number] CT Scan CTA Chest W IV Contrast - PE Signed EXAM DESCRIPTION: CTA Chest W IV Contrast - PE REASON FOR STUDY: Left-sided chest pain left arm pain for 1 hour tonight TECHNIQUE: CT angiogram of the chest performed with intravenous contrast using helical scanning technique with dynamic intravenous contrastinjection. Reconstructed coronal and sagittal MPR images reviewed. All images storedon PACS. 3D MIP images rendered on scanning unit and reviewed at time of interpretation. Automated exposure control was used as a doseoptimization technique for this examination. CONTRAST TYPE/DOSE: 80 mL Optiray 350 injected via left antecubitalfossa COMPARISON: 10/25/2018 FINDINGS: VASCULATURE: No identified pulmonary emboli. LUNGS: No nodules or masses. No pneumonia. PLEURA: No effusion. No pneumothorax. MEDIASTINUM/CHARANJIT: No identified masses or abnormal nodes. HEART: Heart size is normal with no pericardial effusion. AXILLA: No adenopathy. CHEST WALL: No masses. No subcutaneous air. HARDWARE/LINES/TUBES: None. UPPER ABDOMEN: Postsurgical changes gastric bypass partially visualized. MUSCULOSKELETAL: No significant abnormality. OTHER: No significant abnormality. IMPRESSION: No acute findings. No evidence of PE. THIS IS AN ELECTRONICALLY VERIFIED FINAL REPORT 11/22/2018 12:35 AM - Electronically signed by Avinash Zendejas M.D. RW T: Report ID: [id number] Reading Location: [place] [address] REPORT ELECTRONICALLY SIGNED IN OTHER VENDOR SYSTEM Jarad Garner STOCK RAISER IMG CT PROCEDURES Final R esult * aPTT (11/21/2018 10:17 PM CDT) APTT 29 27 - 36 SECONDS [facility] Comment: New reference ranges in use 10-03-18. 11/21/2018 10:1 7 PM CDT 11/21/2018 10:23 PM CDT Narrative Resulting Agency Comment ER Jarad Garner NP LAB BLOOD ORDERABLES Nika l Result [facility] [address] [phone] * (ABNORMAL) Protime-INR (11/21/2018 10:17 PM CDT) PT 15.6(H) 12.2 - 14.8 SECONDS [facility] Comment: New reference ranges in use 10-03-18. INR 1.20 [facility] Comment: Recommended Therapeutic range for Oral Anticoagulant Therapy No anti-coagulation therapy ? Normal Range: ?0.8-1.4 Anti-coagulation therapy ? Low intensity therapy ?2.0-3.0 ? High intensity therapy ?? 2.5-3.5 Critical Value ? Greater than or equal to 5.0 Patients should be monitored for serious bleeding. 11/21/2018 10:1 7 PM CDT 11/21/2018 10:23 PM CDT Narrative Resulting Agency Comment ER Jarad Garner STOCK RAISER LAB BLOOD ORDERABLES Nika perez Result [facility] [address] [place] [address], [facility] [phone] * (ABNORMAL) CBC with auto differential (11/21/2018 10:14 PM CDT) WBC 6.4 3.8 - 9.9 X10 3/ul [facility] RBC 3.60(L) 3.90 - 5.20 x10 6/ul [facility] Hemoglobin 7.0(L) 11.9 - 15.5 g/dL [facility] Hct 24.8(L) 35.6 - 45.5 % [facility] MCV 68.9(L) 81.3 - 96.4 fl [facility] MCH 19.4(L) 27.1 - 33.3 pg [facility] MCHC 28.2(L) 32.3 - 35.7 g/dl [facility] RDW 21.7(H) 11.1 - 14.9 % [facility] Plt Count 212 150 - 400 x10 3/ul [facility] MPV 9.5 9.1 - 12.3 fl [facility] Neut % 68.8 % [facility] Immature Gran % 0.2 % [facility] Lymph % 17.4 % [facility] Payette % 10.4 % [facility] Eos % 2.7 % [facility] AUTO BASO % 0.5 % [facility] NEUTROPHIL ABS # 4.4 1.7 - 6.5 x10 3/ul [facility] [...] - 0.01 x10 3/ul [facility] Platelet Evaluation AGREE AGREE [facility] Comment: Slide review of platelets correlates with instrument count. Anisocytosis 1+ [facility] Microcytosis 1+ [facility] Ovalocytes 1+ [facility] Absolute Neutrophils 4,400 200 - 8,000 /ul [facility] 11/21/2018 10:1 4 PM CDT 11/21/2018 10:23 PM CDT Narrative Resulting Agency Comment ER us Jarad Garner ST[facility]ER LAB BLOOD ORDERABLES Nika perez Result [facility] [address] [phone] * TNI with LIPID PANEL (11/21/2018 10:14 PM CDT) Troponin I <0.300 0.000 - 0.300 ng/mL [facility] Comment: Reference using [employer] Chemiluminescence ? Negative: Repeat in 4-6 hours as indicated. Triglycerides 76 0 - 149 mg/dL [facility] Comment: National Lipid Association/NCEP Guidelines: ?? Normal ?< 150 mg/dL ?? Borderline high ?? 150-199 mg/dL ?? High ?200-499 mg/dL ?? Very High ? >=500 mg/dL Cholesterol 113 0 - 199 mg/dL [facility] Comment: National Lipid Association/NCEP Guidelines: Desirable ? < 200 mg/dL Borderline high: ??200-239 mg/dL High Risk: ?>=240 mg/dL HDL Cholesterol 52 mg/dL [facility] Comment: Reference Ranges: ? Males: >=40 mg/dL ? Females: >=50 mg/dL LDL Cholesterol, Calc 46 0 - 129 mg/dL [facility] Comment: National Lipid Association/NCEP Guidelines: ??Optimal ? < 100 mg/dL ??Near Optimal ?100-129 mg/dL ??Borderline high 130-159 mg/dL ??High ?>=160 mg/dL Cholesterol/HDL Ratio 2.2 [facility] Comment: Optimal ??< 3.5:1 High ? > 5:1 11/21/2018 10:1 4 PM CDT 11/21/2018 10:23 PM CDT Narrative Resulting Agency Comment ER us Jarad Garner STOCK RAISER LAB BLOOD ORDERABLES Nika perez Result [facility] [address] [place], [place] [id number] [place] [address] * (ABNORMAL) Comprehensive metabolic panel (11/21/2018 10:14 PM CDT) Sodium 142 135 - 145 mmol/L [facility] Potassium 3.6 3.3 - 5.1 mmol/L [facility] Chloride 107 96 - 108 mmol/L [facility] Carbon Dioxide 25 22 - 32 mmol/L [facility] Anion Gap 10 7 - 16 [facility] Glucose 83 70 - 100 mg/dL [facility] [...] mL/min ? Kidney failure or on dialysis Calcium 9.7 8.6 - 10.3 mg/dL [facility] Total Protein 7.5 6.4 - 8.3 g/dL [facility] Albumin 3.8 3.5 - 5.0 g/dL [facility] Globulin 3.7(H) 2.3 - 3.5 gm/dL [facility] Albumin/Globulin Ratio 1.0(L) 1.1 - 1.8 [facility] Total Bilirubin 0.6 0.0 - 1.2 mg/dL [facility] AST 28 0 - 32 U/L [facility] ALT 13 0 - 33 U/L [facility] Alkaline Phosphatase 109(H) 35 - 104 U/L [facility] 11/21/2018 10:1 4 PM CDT 11/21/2018 10:23 PM CDT Narrative Resulting Agency Comment ER us Jarad Garner STOCK RAISER LAB BLOOD ORDERABLES Nika l Result [address] [phone] * ECG 12 lead (11/21/2018 9:54 PM CDT) Ventricular Rate EKG/Min 72 BPM [facility] Atrial Rate 72 BPM [facility] SC-Interval (MSEC) 162 ms [facility] QRS-Interval (MSEC) 102 ms [facility] QT-Interval (MSEC) 436 ms [facility] QTc 477 ms [facility] P [place] 57 degrees [facility] R [place] -6 degrees [facility] T [place] 4 degrees [facility] Diagnosis Normal sinus rhythm Minimal voltage criteria for LVH, may be normal variant Borderline ECG When compared with ECG of 21-NOV-2018 21:36, No significant change was found [facility] 11/21/2018 9:54 PM CDT 11/22/2018 3:39 PM CDT Narrative Resulting Agency Comment SAURABH us Notinfile Unknown ECG ORDERABLES Final Result [address] * ECG 12 lead (11/21/2018 9:36 PM CDT) Ventricular Rate EKG/Min 77 BPM [facility] Atrial Rate 77 BPM [facility] SC-Interval (MSEC) 170 ms [facility] QRS-Interval (MSEC) 86 ms [facility] QT-Interval (MSEC) 390 ms [facility] QTc 441 ms [facility] P [place] 79 degrees [facility] R [place] -3 degrees [facility] T [place] 9 degrees [facility] Diagnosis Normal sinus rhythm Minimal voltage criteria for LVH, may be normal variant Borderline ECG When compared with ECG of 25-OCT-2018 19:01, Nonspecific T wave abnormality no longer evident in Anterior leads [facility] 11/21/2018 9:36 PM CDT 11/24/2018 12:15 PM CDT Narrative Resulting Agency Comment PREADT us Jarad Garner STOCK RAISER ECG ORDERABLES Edited ER RADIOLOGY * XR Chest 1 View (11/21/2018 12:00 AM CDT) Anatomical Region Laterality Modality Body, Chest N/A Radiographic Alexsandra ging 11/21/2018 10:3 3 PM CDT Narrative 11/21/2018 10:33 PM CDT Patient Name: TIARRA HAN ?Ordering Dr: Jarad Garner ANP ?? D.O.B: 1970 ? Exam Date: 11/21/18 ?? 0000 ?? Age: 47 ?Sex: Female ? MR#: [id number] ?? Loc: ? RADIOLOGY REPORT ?? Order #[id number] ?? Radiology ? Chest 1 View Portable ? Signed ?? EXAM DESCRIPTION: ??Chest 1 View Portable ? REASON FOR STUDY: ??Chest pain today. HX hypertension. ? TECHNIQUE: ??AP portable radiographic view of the chest acquired. ? COMPARISON: ??10/25/2018 ? FINDINGS: ? LUNGS/PLEURA: No focal consolidation or pneumothorax. No pleural effusion. ? HEART/MEDIASTINUM: Heart size is normal. Normal mediastinal and hilar contours. ? HARDWARE/LINES/TUBES: None. ? BONES: No acute findings. ? OTHER: No other significant finding. ? IMPRESSION: ??No acute cardiopulmonary disease. ? THIS IS AN ELECTRONICALLY VERIFIED FINAL REPORT ?? 11/21/2018 10:33 PM - Electronically signed by Paola Mendez M.D. ?? Paola Mendez M.D. ? RB ?? D: ??11/21/2018 10:33 PM ?? T: ? Report ID: [id number] ?? Reading Location: ??[id number] ? REPORT ELECTRONICALLY SIGNED IN OTHER VENDOR SYSTEM ?? Resulting Agency Comment P Procedure Note Paola Mendez MD - 11/21/2018 Patient Name: TIARRA HAN Dr: Jarad Garner D.O.B: 1970 Exam Date: 11/21/18 0000 Age: 47 Sex: Female MR#: [id number] Loc: RADIOLOGY REPORT Order #[id number] Radiology Chest 1 View Portable Signed EXAM DESCRIPTION: Chest 1 View Portable REASON FOR STUDY: Chest pain today. HX hypertension. TECHNIQUE: AP portable radiographic view of the chest acquired. COMPARISON: 10/25/2018 FINDINGS: LUNGS/PLEURA: No focal consolidation or pneumothorax. No pleuraleffusion. HEART/MEDIASTINUM: Heart size is normal. Normal mediastinal and hilarcontours. HARDWARE/LINES/TUBES: None. BONES: No acute findings. OTHER: No other significant finding. IMPRESSION: No acute cardiopulmonary disease. THIS IS AN ELECTRONICALLY VERIFIED FINAL REPORT 11/21/2018 10:33 PM - Electronically signed by Paola Mendez M.D. RB T: Report ID: [id number] Reading Location: [place] [address] REPORT ELECTRONICALLY SIGNED IN OTHER VENDOR SYSTEM Jarad Garner STOCK RAISER IMG XR PROCEDURES Final R esult documented in this encounter Visit Diagnoses Not on filedocumented in this encounter Care Teams Shingle Catcher Relationship Specialty Start Date End Date Gerard Sutton MD PCP - General 11/21/18 03/27/20 Unknown, Notinfile 02/18/18 03/27/20 documented as of this encounter
--- OUTSIDE RECORDS SUMMARY | 2024-03-24 18:55 | XMS_ITS | Encounter Summary ---
Author Organization [facility] Healthcare Address [address] [place] [id number] Care Team Providers Care Machine Steak Tenderizer Name Role Phone Unknown, Notinfile Primary Care Provider Unavail able Unknown, Notinfile Unavailable Unavailable Encounter Details Date Type Department Care Team (Latest Contact Info) Description 04/10/2018 8:30 PM MASTER BARBER - 04/11/2018 12:54 AM [facility] Hospital Encounter [facility] Jarad Pepper, MICROFILMER [address] [facility] [address] Other chest pain; Wheezing; Cough; Shortness of breath; Pain of left arm; Essential (primary) hypertension; Personal history of pulmonary embolism; 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; Family history of diabetes mellitus; Family history [...] Sign Reading Time Taken Comments Blood Pressure 105/65 04/10/2018 8:44 PM MASTER BARBER Pulse 84 04/10/2018 8:44 PM MASTER BARBER Temperature 36.6 ??C (97.9 ??F) 04/10/2018 8:44 PM CS T Respiratory Rate - - Oxygen Saturation 98% 04/10/2018 8:44 PM MASTER BARBER Inhaled Oxygen Concentration - - Weight 51.5 kg (113 lb 7 oz) 04/10/2018 8:44 PM MASTER BARBER Height 172.7 cm (5' 8 ) 04/10/2018 8:44 PM MASTER BARBER Body Mass Index 17.25 04/10/2018 8:44 PM MASTER BARBER documented in this encounter Medications at Time [...] Date/Time Associated Diagnosis Comments TROPONIN I Routine 04/10/2018 11:50 PM MASTER BARBER APTT Routine 04/10/2018 9:20 PM MASTER BARBER PROTIME-INR Routine 04/10/2018 9:20 PM MASTER BARBER TNI WITH LIPID PANEL Routine 04/10/2018 9:15 PM MASTER BARBER CBC WITH AUTO DIFFERENTIAL Routine 04/10/2018 9:15 PM MASTER BARBER COMPREHENSIVE METABOLIC PANEL Routine 04/10/2018 9:15 PM MASTER BARBER XR CHEST 1 VIEW Routine 04/10/2018 12:00 AM MASTER BARBER documented in this encounter Results * Troponin I (04/10/2018 11:50 PM MASTER BARBER) [facility] Troponin I < 0.300 0.000 - 0.300 ng/mL Comment: Reference using CLOVER Chemiluminescence ? Negative: Repeat in 4-6 hours as indicated. 04/10/2018 11:5 0 PM MASTER BARBER 04/10/2018 11:52 PM MASTER BARBER Jarad Garner MICROFILMER LAB BLOOD ORDERABLES Nika l Result Performing Organization Address [facility] de Phone Number [facility] HISTORICAL RESULTS * aPTT (04/10/2018 9:20 PM MASTER BARBER) APTT 28 26 - 33 SECONDS 04/10/2018 9:20 PM MASTER BARBER 04/10/2018 9:23 PM MASTER BARBER Jarad Garner MICROFILMER LAB BLOOD ORDERABLES Nika l Result Performing Organization Address [facility] Number [facility] HISTORICAL RESULTS * (ABNORMAL) Protime-INR (04/10/2018 9:20 PM MASTER BARBER) Pathologist [facility] PT 15.1(H) 11.8 - 14.5 SECONDS INR 1.18 Comment: Recommended Therapeutic range for Oral Anticoagulant Therapy No anti-coagulation therapy ? Normal Range: ?0.8-1.4 Anti-coagulation therapy ? Low intensity therapy ?2.0-3.0 ? High intensity therapy ?? 2.5-3.5 Critical Value ? Greater than or equal to 5.0 Patients should be monitored for serious bleeding. ?? 04/10/2018 9:20 PM MASTER BARBER 04/10/2018 9:23 PM MASTER BARBER Jarad Garner MICROFILMER LAB BLOOD ORDERABLES Nika l Result Performing Organization Address [facility] de Phone Number [facility] HISTORICAL RESULTS * TNI with LIPID PANEL (04/10/2018 9:15 PM MASTER BARBER) Troponin I < 0.300 0.000 - 0.300 ng/mL Comment: Reference using [place] Chemiluminescence ? Negative: Repeat in 4-6 hours as indicated. Triglycerides 114 0 - 149 mg/dL Comment: National Lipid Association/NCEP Guidelines: ?? Normal ?< 150 mg/dL ?? Borderline high ?? 150-199 mg/dL ?? High ?200-499 mg/dL ?? Very High ? >=500 mg/dL Cholesterol 131 0 - 199 mg/dL Comment: National Lipid Association/NCEP Guidelines: Desirable ? < 200 mg/dL Borderline high: ??200-239 mg/dL High Risk: ?>=240 mg/dL HDL Cholesterol 58 mg/dL 9 9:56 PM [facility] HISTORICAL RESULTS Comment: Reference Ranges: ? Males: >=40 mg/dL ? Females: >=50 mg/dL LDL Cholesterol, Calc 50 0 - 129 mg/dL Comment: National Lipid Association/NCEP Guidelines: ??Optimal ? < 100 mg/dL ??Near Optimal ?100-129 mg/dL ??Borderline high 130-159 mg/dL ??High ?>=160 mg/dL Cholesterol/HDL Ratio 2.3 Comment: Optimal ??< 3.5:1 High ? > 5:1 04/10/2018 9:15 PM MASTER BARBER 04/10/2018 9:23 PM MASTER BARBER us Jarad Garner MICROFILMER LAB BLOOD ORDERABLES Nika perez Result [facility] HISTORICAL RESULTS * (ABNORMAL) Comprehensive metabolic panel (04/10/2018 9:15 PM MASTER BARBER) [facility] Signature Sodium 137 135 - 145 mmol/L Potassium 4.2 3.3 - 5.1 mmol/L Chloride 103 96 - 108 mmol/L Carbon Dioxide 23 22 - 32 mmol/L Anion Gap 11 7 - 16 Glucose 85 70 - 100 mg/dL BUN 14 6 - 20 mg/dL Creatinine 0.7 0.5 - 1.1 mg/dL Comment: NOTE: Estimated GFR (Cockroft-Gault) will NOT be calculated unless patient Height and Weight were entered. Also, Kidney Disease Stage (GFR) and Estimated GFR (Cockroft-Gault) will NOT be calculated if Creatinine result is <0.2. Kidney Disease Stage > 90 mL/MIN Comment: NOTE; ??The GFR is an estimated [...] or on dialysis @ Est GFR (Cockcroft-G) 80 ml/MIN Comment: Estimated GFR(Cockroft-Gault)is used to calculate patient medication dosage Calcium 9.0 8.6 - 10.0 mg/dL Total Protein 7.3 6.4 - 8.3 g/dL Albumin 3.7 3.5 - 5.2 g/dL Globulin 3.6(H) 2.3 - 3.5 gm/dL Albumin/Globulin Ratio 1.0(L) 1.1 - 1.8 Total Bilirubin 0.2 0.0 - 1.2 mg/dL AST 64(H) 0 - 32 U/L ALT 50(H) 0 - 33 U/L Alkaline Phosphatase 182(H) 35 - 104 U/L 04/10/2018 9:15 PM MASTER BARBER 04/10/2018 9:23 PM MASTER BARBER us Jarad Garner MICROFILMER LAB BLOOD ORDERABLES Nika perez Result [facility] HISTORICAL RESULTS * (ABNORMAL) CBC with auto differential (04/10/2018 9:15 PM MASTER BARBER) WBC 8.2 3.8 - 9.9 X10 3/ul RBC 3.84(L) 3.90 - 5.20 x10 6/ul Hemoglobin 8.3(L) 11.9 - 15.5 g/dL Hct 28.6(L) 35.6 - 45.5 % MCV 74.5(L) 81.3 - 96.4 fl MCH 21.6(L) 27.1 - 33.3 pg MCHC 29.0(L) 32.3 - 35.7 g/dl 04/10/2018 9:29 PM [facility] RDW 17.9(H) 11.1 - 14.9 % 04/10/2018 9:29 PM [facility]IST[facility] RES[facility] Plt Count 239 150 - 400 x10 3/ul 04/10/2018 9:29 PM [facility] RES[facility] MPV 9.8 9.1 - 12.3 fl 04/10/2018 9:29 PM [facility] HISTOR[facility] RESULTS Neut % 60.3 % Immature Gran % 0.2 % 9 9:29 PM [facility] HISTORICAL RESULTS Lymph % 26.1 % 04/10/2018 9:29 PM [facility] HISTOR[facility] RESULTS [place] % 8.7 % Eos % 4.3 % 04/10/2018 9:29 PM [facility] HIST[facility] RESULTS Baso % 0.4 % Absolute Neuts (auto) 4.9 1.7 - 6.5 x10 3/ul 04/10/2018 9:29 PM [facility] HIST[facility] RESULTS Immature Gran # 0.0 0.0 - 0.1 x10 3/ul Absolute Lymphs (auto) 2.1 0.8 - 3.3 x10 3/ul Absolute Monos (auto) 0.7 0.2 - 0.8 x10 3/ul Absolute Eos (auto) 0.4 0.0 - 0.5 x10 3/ul Absolute Basos (auto) 0.0 0.0 - 0.1 x10 3/ul Nucleat RBC Rel Count 0.0 #/100WBC Absolute Nucleated RBC 0.00 0.00 - 0.01 x10 3/ul Absolute Neutrophils 4900 200 - 8000 /ul 04/10/2018 9:15 PM MASTER BARBER 04/10/2018 9:23 PM MASTER BARBER Jarad Garner MICROFILMER LAB BLOOD ORDERABLES Nika l Result [facility] HISTORICAL RESULTS * XR Chest 1 View (04/10/2018 12:00 AM MASTER BARBER) Anatomical Region Laterality Modality Body, Chest N/A Radiographic Alexsandra ging 04/10/2018 Impressions 04/10/2018 8:52 PM MASTER BARBER ??No acute cardiopulmonary disease. THIS IS AN ELECTRONICALLY VERIFIED FINAL REPORT 04/10/2018 8:49 PM - Electronically signed by Hi Arnold M.D. D: ??04/10/2018 8:49 PM T: Report ID: [id number] Reading Location: ??[id number] [EOD] Narrative 04/10/2018 8:52 PM MASTER BARBER EXAM DESCRIPTION: ??Chest 1 View Portable REASON FOR STUDY: ??Chest pain onset today. TECHNIQUE: ??Frontal radiographic view of the chest acquired. COMPARISON: ??03/14/2018. FINDINGS: LUNGS/PLEURA: No focal consolidation or pneumothorax. No pleural effusion. HEART/MEDIASTINUM: Heart size is normal. Normal mediastinal and hilar contours. HARDWARE/LINES/TUBES: None. BONES: No acute findings. OTHER: No other significant finding. Procedure Note Provider, MD Lawanda - 08/23/2020 EXAM DESCRIPTION: Chest 1 View Portable REASON FOR STUDY: Chest pain onset today. TECHNIQUE: Frontal radiographic view of the chest acquired. COMPARISON: 03/14/2018. FINDINGS: LUNGS/PLEURA: No focal consolidation or pneumothorax. No pleuraleffusion. HEART/MEDIASTINUM: Heart size is normal. Normal mediastinal and hilarcontours. HARDWARE/LINES/TUBES: None. BONES: No acute findings. OTHER: No other significant finding. IMPRESSION: No acute cardiopulmonary disease. THIS IS AN ELECTRONICALLY VERIFIED FINAL REPORT 04/10/2018 8:49 PM - Electronically signed by Hi Arnold M.D. T: Report ID: [id number] Reading Location: [place] [id number] [EOD] Jarad Garner MICROFILMER IMG XR PROCEDURES Final R esult documented in this encounter Visit Diagnoses Diagnosis Other chest pain Wheezing Cough Shortness of breath Pain of left arm Essential (primary) hypertension Unspecified essential hypertension Personal history of pulmonary embolism Other long-term (current) drug therapy Family history of diabetes mellitus Family history of ischemic heart disease and other diseases of the circulatory system documented in this encounter Care Teams Machine Steak Tenderizer Relationship Specialty Start Date End Date Unknown, Notinfile PCP - General 02/18/18 10/24/18 Unknown, Notinfile 02/18/18 03/27/20 documented as of this encounter
--- OUTSIDE RECORDS SUMMARY | 2024-03-24 18:55 | XMS_ITS | Encounter Summary ---
Author Organization [facility] Facility Care Team Providers Care Operations Management Trainee Name Role Phone Unknown, Notinfile Unavailable Unavailable Gerard Sutton MD Primary Care Provider [phone] Encounter Details Date Type Department Care Team (Latest Contact Info) Description 04/29/2019 Travel Social History Tobacco Use Types Packs/Day [...] on filedocumented in this encounter Care Teams Operations Management Trainee Relationship Specialty Start Date End Date Gerard Sutton MD PCP - General 11/21/18 03/27/20 Unknown, Notinfile 02/18/18 03/27/20 documented as of this encounter
--- OUTSIDE RECORDS SUMMARY | 2024-03-24 18:55 | XMS_ITS | Encounter Summary ---
Author Organization [facility] Healthcare Address [address] [place] [address] Care Team Providers Care Telegraph Office Manager Name Role Phone Unknown, Notinfile Unavailable Unavailable Gerard Sutton MD Primary Care Provider [phone] Encounter Details Date Type Department Care Team (Late st Contact Info) Description 03/01/2019 11:15 PM PRODUCT SAFETY SPECIALIST - 03/03/2019 9:30 PM [facility] Hospital Encounter [facility] ADMIT Seema Artis MD [address] [place] [address] [place] [address] Unknown, Notinfile Giuliana Todd MD [address] [place] [address] Discharge Disposition: Discharge to home or self [...] Sign Reading Time Taken Comments Blood Pressure 92/57 03/03/2019 4:00 PM PRODUCT SAFETY SPECIALIST Pulse 54 03/03/2019 4:00 PM PRODUCT SAFETY SPECIALIST Temperature 36.9 ??C (98.5 ??F) 03/03/2019 4:00 PM CS T Respiratory Rate - - Oxygen Saturation 95% 03/03/2019 4:00 PM PRODUCT SAFETY SPECIALIST Inhaled Oxygen Concentration - - Weight 148.6 kg (327 lb 11.2 oz) 03/03/2019 4:00 PM PRODUCT SAFETY SPECIALIST Height 170.2 cm (5' 7 ) 03/03/2019 4:00 PM PRODUCT SAFETY SPECIALIST Body Mass Index 51.33 03/03/2019 4:00 PM PRODUCT SAFETY SPECIALIST documented in this encounter Medications at Time [...] documented in this encounter Plan of Treatment Pending Results Name Type Priority Associated Diagnoses Date /Time Comprehensive metabolic panel Lab Routine 03/01/2019 9:06 PM PRODUCT SAFETY SPECIALIST TNI with LIPID PANEL Lab Routine 02/07 9:06 PM PRODUCT SAFETY SPECIALIST documented as of this encounter Procedures Procedure Name Priority Date/Time Associated Diagnosis Comments CBC WITH AUTO DIFFERENTIAL Routine 03/03/2019 4:33 PM PRODUCT SAFETY SPECIALIST BASIC METABOLIC PANEL Routine 03/03/2019 4:33 PM PRODUCT SAFETY SPECIALIST HEPARIN ANTI FACTOR XA ACTIVITY Routine 03/03/2019 12:46 PM PRODUCT SAFETY SPECIALIST HEPARIN ANTI FACTOR XA ACTIVITY Routine 03/03/2019 7:42 AM PRODUCT SAFETY SPECIALIST CRP (ACUTE PHASE) Routine 03/03/2019 7:4 2 AM PRODUCT SAFETY SPECIALIST B-TYPE NATRIURETIC PEPTIDE Routine 03/03/2019 7:42 AM PRODUCT SAFETY SPECIALIST HEPARIN ANTI FACTOR XA ACTIVITY Routine 03/03/2019 12:[address] ABDOMEN PELVIS W WO CONTRAST 03/03/2019 12:00 AM PRODUCT SAFETY SPECIALIST HEPARIN ANTI FACTOR XA ACTIVITY Routine 03/02/2019 6:25 PM PRODUCT SAFETY SPECIALIST HEPARIN ANTI FACTOR XA ACTIVITY Routine 03/02/2019 11:17 AM PRODUCT SAFETY SPECIALIST US VEIN DUPLEX LOWER EXTREMITY BILATERAL COMPLETE 03/02/2019 7:46 AM PRODUCT SAFETY SPECIALIST PROCALCITONIN Routine 03/02/2019 5:24 AM PRODUCT SAFETY SPECIALIST HEPARIN ANTI FACTOR XA ACTIVITY Routine 03/02/2019 5:24 AM PRODUCT SAFETY SPECIALIST CBC WITH AUTO DIFFERENTIAL Routine 03/02/2019 5:24 AM PRODUCT SAFETY SPECIALIST TROPONIN I Routine 03/02/2019 5:24 AM PRODUCT SAFETY SPECIALIST BASIC METABOLIC PANEL Routine 03/02/2019 5:24 AM PRODUCT SAFETY SPECIALIST TROPONIN I Routine 03/01/2019 11:32 PM PRODUCT SAFETY SPECIALIST CTA CHEST W IV CONTRAST - PE 03/01/2019 10:16 PM PRODUCT SAFETY SPECIALIST B-TYPE NATRIURETIC PEPTIDE Routine 03/01/2019 9:20 PM PRODUCT SAFETY SPECIALIST TNI WITH LIPID PANEL Routine 03/01/2019 9:06 PM PRODUCT SAFETY SPECIALIST CBC WITH AUTO DIFFERENTIAL Routine 03/01/2019 9:06 PM PRODUCT SAFETY SPECIALIST PROTIME-INR Routine 03/01/2019 9:06 PM PRODUCT SAFETY SPECIALIST D-DIMER, QUANTITATIVE Routine 03/01/2019 9:06 PM PRODUCT SAFETY SPECIALIST COMPREHENSIVE METABOLIC PANEL Routine 03/01/2019 9:06 PM PRODUCT SAFETY SPECIALIST ECG 12-LEAD 03/01/2019 8:24 PM PRODUCT SAFETY SPECIALIST XR CHEST 1 VIEW 03/01/2019 12:00 AM PRODUCT SAFETY SPECIALIST documented in this encounter Results * (ABNORMAL) Basic metabolic panel (03/03/2019 4:33 PM PRODUCT SAFETY SPECIALIST) Sodium 138 135 - 145 mmol/L [facility] Potassium 4.2 3.3 - 5.1 mmol/L [facility] Chloride 104 96 - 108 mmol/L [facility] Carbon Dioxide 28 22 - 32 mmol/L [facility] Anion Gap 6(L) 7 - [address] [facility] Glucose 89 70 - 100 mg/dL [facility] BUN 11 8 - 25 mg/dL [facility] Creatinine 0.9 0.5 - 1.1 mg/dL [facility] Comment: NOTE: Estimated GFR (Cockroft-Gault) will NOT be calculated unless patient Height and Weight were entered. Also, Kidney Disease Stage (GFR) and Estimated GFR (Cockroft-Gault) will NOT be calculated if Creatinine result is <0.2. Kidney Disease Stage 86 mL/MIN [facility] Comment: NOTE; ??The GFR is an estimated [...] failure or on dialysis Est GFR (Cockcroft-G) 115 ml/MIN [facility] Comment: Estimated GFR(Cockroft-Gault)is used to calculate patient medication dosage Calcium 9.2 8.6 - 10.3 mg/dL [facility] 03/03/2019 4:33 PM PRODUCT SAFETY SPECIALIST 03/03/2019 4:52 PM PRODUCT SAFETY SPECIALIST Narrative Resulting Agency Comment IN Giuliana Todd MD LAB BLOOD ORDERABLES F inal Result [facility] [address] [phone] * (ABNORMAL) CBC with auto differential (03/03/2019 4:33 PM PRODUCT SAFETY SPECIALIST) WBC 10.7(H) 3.8 - 9.9 X10 3/ul [facility] RBC 3.29(L) 3.90 - 5.20 x10 6/ul [facility] Comment: Results reviewed Hemoglobin 9.0(L) 11.9 - 15.5 g/dL [facility] Comment: Results reviewed Hct 30.4(L) 35.6 - 45.5 % [facility] MCV 92.4 81.3 - 96.[address] [facility] MCH 27.4 27.1 - 33.[address] [facility] MCHC 29.6(L) 32.3 - 35.7 g/dl [facility] RDW 27.7(H) 11.1 - 14.9 % [facility] Plt Count 196 150 - 400 x10 3/ul [facility] MPV 9.4 9.1 - 12.[address] [facility] Neut % 71.5 % [facility] Immature Gran % 0.3 % [facility] Lymph % 15.9 % [facility] Rankin % 7.2 % [facility] Eos % 4.8 % [facility] AUTO BASO % 0.3 % [facility] NEUTROPHIL ABS # 7.6(H) 1.7 - 6.5 x10 3/ul [facility] Immature Gran # 0.0 0.0 - 0.1 x10 3/ul [facility] Absolute Lymphs (auto) 1.7 0.8 - 3.3 x10 3/ul [facility] Absolute Monos (auto) 0.8 0.2 - 0.8 x10 3/ul [facility] Absolute Eos (auto) 0.5 0.0 - 0.5 x10 3/ul [facility] BASOPHIL ABS # 0.0 0.0 - 0.1 x10 3/ul [facility] Nucleat RBC Rel Count 0.0 #/100WBC [facility] NRBC abs 0.00 0.00 - 0.01 x10 3/ul [facility] Absolute Neutrophils 7,600 200 - 8,000 /ul [facility] 03/03/2019 4:33 PM PRODUCT SAFETY SPECIALIST 03/03/2019 4:52 PM PRODUCT SAFETY SPECIALIST Narrative Resulting Agency Comment IN us Giuliana Todd MD LAB BLOOD ORDERABLES F inal Result [facility] [address] [place] [address], [facility] [phone] * Heparin anti factor Xa activity (03/03/2019 12:46 PM PRODUCT SAFETY SPECIALIST) Heparin Chromogenic 0.35 0.30 - 0.70 IU/mL [facility] Comment: Anti-factor Xa is used to monitor unfractionated Heparin in weight-based Heparin therapy. ??At [facility], anti-factor Xa cannot be used to monitor Low Molecular Weight Heparin. ??If Low Molecular Weight Heparin monitoring is desired, please order LMWH and notify Heme at extension [phone]. 03/03/2019 12:4 6 PM PRODUCT SAFETY SPECIALIST 03/03/2019 1:22 PM PRODUCT SAFETY SPECIALIST Narrative [facility] - 03/03/2019 1:34 PM PRODUCT SAFETY SPECIALIST Is patient on IV unfractionated heparin Y Resulting Agency Comment IN Giuliana Todd MD LAB BLOOD ORDERABLES F inal Result Performing Organization Address City/[facility]/ZIP Co de Phone Number [address] [phone] * (ABNORMAL) CRP (acute phase) (03/03/2019 7:42 AM PRODUCT SAFETY SPECIALIST) C-Reactive Protein 27.0(H) 0.0 - 4.9 mg/L [facility] 03/03/2019 7:42 AM PRODUCT SAFETY SPECIALIST 03/03/2019 7:52 AM PRODUCT SAFETY SPECIALIST Narrative Resulting Agency Comment IN Diandra Andrew MD LAB BLOOD ORDERABLES Final Result Performing Organization Address [facility] de Phone Number [address] [phone] * (ABNORMAL) B-type natriuretic peptide (03/03/2019 7:42 AM PRODUCT SAFETY SPECIALIST) B-Natriuretic Peptide 153(H) 0 - 100 pg/mL [facility] Comment: B Natriutetic Peptide METHOD: ??S[employer] Centaur [...] hours of bolus or infusion of nesiritide. 03/03/2019 7:42 AM PRODUCT SAFETY SPECIALIST 03/03/2019 7:52 AM PRODUCT SAFETY SPECIALIST Narrative Resulting Agency Comment IN Result [facility] Diandra Andrew MD LAB BLOOD ORDERABLES Final Result Performing Organization Address [facility] Co de Phone Number [address] [phone] * Heparin anti factor Xa activity (03/03/2019 7:42 AM PRODUCT SAFETY SPECIALIST) [facility] Heparin Chromogenic 0.53 0.30 - 0.70 IU/mL [facility] Comment: Anti-factor Xa is used to monitor unfractionated Heparin in weight-based Heparin therapy. ??At [facility], anti-factor Xa cannot be used to monitor Low Molecular Weight Heparin. ??If Low Molecular Weight Heparin monitoring is desired, please order LMWH and notify Heme at extension [phone]. 03/03/2019 7:42 AM PRODUCT SAFETY SPECIALIST 03/03/2019 7:52 AM PRODUCT SAFETY SPECIALIST Narrative [facility] - 03/03/2019 8:13 AM PRODUCT SAFETY SPECIALIST Is patient on IV unfractionated heparin Y Resulting Agency Comment IN Giuliana Todd MD LAB BLOOD ORDERABLES F inal Result [address] [phone] * (ABNORMAL) Heparin anti factor Xa activity (03/03/2019 12:17 AM PRODUCT SAFETY SPECIALIST) [facility] Heparin Chromogenic 0.29(L) 0.30 - 0.70 IU/mL [facility] Comment: Anti-factor Xa is used to monitor unfractionated Heparin in weight-based Heparin therapy. ??At [facility], anti-factor Xa cannot be used to monitor Low Molecular Weight Heparin. ??If Low Molecular Weight Heparin monitoring is desired, please order LMWH and notify Heme at extension [phone]. 03/03/2019 12:1 7 AM PRODUCT SAFETY SPECIALIST 03/03/2019 12:20 AM PRODUCT SAFETY SPECIALIST Narrative [facility] - 03/03/2019 12:30 AM PRODUCT SAFETY SPECIALIST Is patient on IV unfractionated heparin Y Resulting Agency Comment IN Giuliana Todd MD LAB BLOOD ORDERABLES F inal Result [address] [phone] * CT Abdomen Pelvis W WO Contrast (03/03/2019 12:00 AM PRODUCT SAFETY SPECIALIST) Anatomical Region Laterality Modality Body N/A Computed Tomogra phy 03/03/2019 2:51 PM PRODUCT SAFETY SPECIALIST Narrative 03/03/2019 3:01 PM PRODUCT SAFETY SPECIALIST Patient Name: TIARRA ADDISON ?Ordering Dr: Tg Kim PA-C ?? D.O.B: 1970 ? Exam Date: 03/03/19 ?? 0000 ?? Age: 48 ?Sex: Female ? MR#: [id number] ?? Loc: ??N287-02 ? RADIOLOGY REPORT ?? Order #[id number] ?? CT Scan ? CT Abd/Pelvis W ?? WO IV Cont ? Signed ?? EXAM DESCRIPTION: ??CT Abd/Pelvis W ?? WO IV Cont ? REASON FOR STUDY: ??Eval for appropriate IVC Filter placement ? TECHNIQUE: ??CT scan of the abdomen and pelvis performed without and with ?? intravenous and without oral contrast using helical scanning technique with ?? dynamic intravenous contrast injection. Reconstructed coronal and sagittal MPR ?? images reviewed. All images stored on PACS. ? Automated exposure control was used as a dose optimization technique for this ?? examination. ? CONTRAST TYPE/DOSE: ??100 cc of Optiray 350 injected via the upper arm. ? COMPARISON: ??No prior abdominal CT is available for comparison. ? FINDINGS: ? A TrapEase IVC filter is present at the L2-L3 level. ??There is no evidence of ?? IVC wall penetration. ??A retrieval hook is not identified on the inferior ?? aspect of the filter. ??There is minimal tilt to the filter. ? There appears to be a small amount of thrombus present along the anterior ?? aspect of the IVC as seen on image number 84. ??There is suspected thrombus ?? noted within the left common iliac vein as seen on image number 101. ??There ?? may be a small amount of thrombus within the filter as seen on image number ?? 70. ? LOWER CHEST: There is a calcified granuloma noted within the left lung base. ? LIVER: Normal size. ??No identified cystic or solid masses. ? GALLBLADDER: Gallbladder is unremarkable. ? BILE DUCTS: No intrahepatic or extrahepatic [...] ?? Urinary bladder is unremarkable. ? GI: The patient is status post gastric bypass. ??The rectosigmoid colon is ?? unremarkable. ? PERITONEUM: No ascites or free air. ? RETROPERITONEUM: No mass or adenopathy. ? REPRODUCTIVE: The patient is status post bilateral tubal ligation. ? VASCULATURE: No abdominal aortic aneurysm. ? MUSCULOSKELETAL: There is degenerative disc space disease at the L5-S1 level. ? OTHER: Fat containing umbilical hernia is present. ? IMPRESSION: ? 1. ??Evidence of a TrapEase IVC filter noted in a infrarenal location at the ?? L2-L3 level. ??There is no evidence of IVC wall penetration. ? 2. ??Suspected thrombus present within the filter, IVC and left common iliac ?? vein. ??Opacification of the veins is somewhat limited decreasing sensitivity. ? THIS IS AN ELECTRONICALLY VERIFIED FINAL REPORT ?? 03/03/2019 3:01 PM - Electronically signed by Ozzie Almodovar M.D. ?? Ozzie Almodovar M.D. ? SS ?? D: ??03/03/2019 3:01 PM ?? T: ? Report ID: [id number] ?? Reading Location: ??[id number] ? REPORT ELECTRONICALLY SIGNED IN OTHER VENDOR SYSTEM ?? Resulting Agency Comment I Procedure Note Ozzie Almodovar MD - 03/03/2019 Patient Name: GUILLETIARRACT Fraire Dr: Tg Kim PA-C, D.O.B: 1970 Exam Date: 03/03/19 0000 Age: 48 Sex: Female MR#: [id number] Loc: N287-02 RADIOLOGY REPORT Order #[id number] CT Scan CT Abd/Pelvis W WO IV Cont Signed EXAM DESCRIPTION: CT Abd/Pelvis W WO IV Cont REASON FOR STUDY: Eval for appropriate IVC Filter placement TECHNIQUE: CT scan of the abdomen and pelvis performed without and with intravenous and without oral contrast using helical scanning techniquewith dynamic intravenous contrast injection. Reconstructed coronal andsagittal MPR images reviewed. All images stored on PACS. Automated exposure control was used as a dose optimization technique forthis examination. CONTRAST TYPE/DOSE: 100 cc of Optiray 350 injected via the upper arm. COMPARISON: No prior abdominal CT is available for comparison. FINDINGS: A TrapEase IVC filter is present at the L2-L3 level. There is noevidence of IVC wall penetration. A retrieval hook is not identified on the inferior aspect of the filter. There is minimal tilt to the filter. There appears to be a small amount of thrombus present along the anterior aspect of the IVC as seen on image number 84. There is suspectedthrombus noted within the left common iliac vein as seen on image number 101.There may be a small amount of thrombus within the filter as seen on imagenumber 70. LOWER CHEST: There is a calcified granuloma noted within the left lungbase. LIVER: Normal size. No identified cystic or solid masses. GALLBLADDER: Gallbladder is unremarkable. BILE DUCTS: No intrahepatic or extrahepatic ductal dilatation. SPLEEN: Normal size. No focal lesions. PANCREAS: No identified cystic or solid masses. No significantcalcifications. No adjacent inflammation or peripancreatic fluid collections. Pancreaticduct not dilated. ADRENALS: Normal. KIDNEYS/URINARY TRACT: No identified significant cystic or solid masses.No visualized stones. No hydronephrosis or hydroureter. Symmetricenhancement. Urinary bladder is unremarkable. GI: The patient is status post gastric bypass. The rectosigmoid colon is unremarkable. PERITONEUM: No ascites or free air. RETROPERITONEUM: No mass or adenopathy. REPRODUCTIVE: The patient is status post bilateral tubal ligation. VASCULATURE: No abdominal aortic aneurysm. MUSCULOSKELETAL: There is degenerative disc space disease at the L5-I6nvohu. OTHER: Fat containing umbilical hernia is present. IMPRESSION: 1. Evidence of a TrapEase IVC filter noted in a infrarenal location atthe L2-L3 level. There is no evidence of IVC wall penetration. 2. Suspected thrombus present within the filter, IVC and left commoniliac vein. Opacification of the veins is somewhat limited decreasingsensitivity. THIS IS AN ELECTRONICALLY VERIFIED FINAL REPORT 03/03/2019 3:01 PM - Electronically signed by Ozzie Almodovar M.D. SS T: Report ID: [id number] Reading Location: [place] [address] REPORT ELECTRONICALLY SIGNED IN OTHER VENDOR SYSTEM us Tg BOWDEN IMG CT PROCEDURES Final Res ult * Heparin anti factor Xa activity (03/02/2019 6:25 PM PRODUCT SAFETY SPECIALIST) [facility] Heparin Chromogenic 0.38 0.30 - 0.70 IU/mL [facility] Comment: Anti-factor Xa is used to monitor unfractionated Heparin in weight-based Heparin therapy. ??At [facility], anti-factor Xa cannot be used to monitor Low Molecular Weight Heparin. ??If Low Molecular Weight Heparin monitoring is desired, please order LMWH and notify Heme at extension [phone]. 03/02/2019 6:25 PM PRODUCT SAFETY SPECIALIST 03/02/2019 6:30 PM PRODUCT SAFETY SPECIALIST Narrative [facility] - 03/02/2019 6:41 PM PRODUCT SAFETY SPECIALIST Is patient on IV unfractionated heparin Y Resulting Agency Comment IN Result [facility] Diandra Andrew MD LAB BLOOD ORDERABLES Final Result [address] [phone] * (ABNORMAL) Heparin anti factor Xa activity (03/02/2019 11:17 AM PRODUCT SAFETY SPECIALIST) [facility] Heparin Chromogenic 0.71(H) 0.30 - 0.70 IU/mL [facility] Comment: Anti-factor Xa is used to monitor unfractionated Heparin in weight-based Heparin therapy. ??At [facility], anti-factor Xa cannot be used to monitor Low Molecular Weight Heparin. ??If Low Molecular Weight Heparin monitoring is desired, please order LMWH and notify Heme at extension [phone]. 03/02/2019 11:1 7 AM PRODUCT SAFETY SPECIALIST 03/02/2019 11:22 AM PRODUCT SAFETY SPECIALIST Narrative [facility] - 03/02/2019 11:38 AM PRODUCT SAFETY SPECIALIST Is patient on IV unfractionated heparin Y Resulting Agency Comment IN Giuliana Todd MD LAB BLOOD ORDERABLES F inal Result [facility] [address] [place] [address], [facility] [phone] * US Vein Duplex Lower Extremity Bilateral Complete (03/02/2019 7:46 AM PRODUCT SAFETY SPECIALIST) Anatomical Region Laterality Modality Vascular Bilateral Ultrasound 03/02/2019 5:07 PM PRODUCT SAFETY SPECIALIST Narrative 03/02/2019 6:17 PM PRODUCT SAFETY SPECIALIST ? Patient Name: TIARRA ADDISON ? MR#: ?? [id number] ? Status: ADM IN ?D.O.B: 1970 Age: ??48 ?Sex: Female ? ADM/SER Dt: 03/01/19 ?Disch Dt: ? LOC: H.2NE ? Ordering Phy: Diandra Andrew MD ? Order #[id number] ? Venous Dop/Duplex Both Legs ?? Zeferino H Moosa MD ? Signed ?? DATE OF SERVICE: ?? 03/02/2019 ? REASON FOR STUDY: ??Left lower extremity edema. ? No thrombus seen in the right common femoral, superficial femoral or popliteal vein. ??The calf veins could not be well visualized. ??No thrombus seen in the right greater saphenous vein. ??No thrombus seen in the left common femoral vein. ??Acute thrombus seen in the left superficial femoral, popliteal, posterior peroneal veins. ??No thrombus seen in the greater saphenous vein. ? IMPRESSION: ??No evidence of acute deep vein thrombosis in the right lower extremity in a limited study. ??Evidence of acute left lower extremity venous thrombosis extending from the left femoral vein distally. ? NTS ? Job: [id number] ? Dictated By: Zeferino Mensah MD ?? Dictated For: Zeferino Mensah MD ? <Electronically signed by Zeferino Mensah MD> ? 03/02/19 1812 ?? Resulting Agency Comment I Procedure Note Zeferino Mensah MD - 03/02/2019 Patient Name: TIARRA ADDISON MR#: [id number] Status: ADM IN D.O.B: 1970 Age: 48Sex: Female ADM/SER Dt: 03/01/19 Disch Dt:LOC: H.2NE Ordering Phy: Diandra Andrew MD Order #[id number] Venous Dop/Duplex Both Legs Zeferino Mensah MD Signed DATE OF SERVICE: 03/02/2019 REASON FOR STUDY: Left lower extremity edema. No thrombus seen in the right common femoral, superficial femoral orpopliteal vein. The calf veins could not be well visualized. No thrombus seen in the right greatersaphenous vein. No thrombus seen in the left common femoral vein. Acute thrombus seen in theleft superficial femoral, popliteal, posterior peroneal veins. No thrombus seen in the greatersaphenous vein. IMPRESSION: No evidence of acute deep vein thrombosis in the right lowerextremity in a limited study. Evidence of acute left lower extremity venous thrombosis extendingfrom the left femoral vein distally. NTS Job: [id number] Dictated By: Zeferino Mensah MD Dictated For: Zeferino Mensah MD <Electronically signed by Zeferino Mensah MD> 03/02/19 1812 us Diandra Andrew MD [facility] [place] PROCEDURES Final Res ult * Procalcitonin (03/02/2019 5:24 AM PRODUCT SAFETY SPECIALIST) Procalcitonin 0.03 0.0 - 0.24 ng/mL [facility] Comment: Guidelines for use with Community Acquired Pneumonia(CAP)- ONLY: ?? <0.1 ng/mL: Use of antibiotics is STRONGLY discouraged ?? 0.1-0.24 ng/mL: Use of antibiotics is discouraged ?? 0.25-0.5 ng/mL: Use of antibiotics is encouraged ?? >0.5 ng/mL: Use of antibiotics is STRONGLY encouraged ?? Recommend repeating every 2-3 days if initial PCT >0.24 03/02/2019 5:24 AM PRODUCT SAFETY SPECIALIST 03/02/2019 5:27 AM PRODUCT SAFETY SPECIALIST Narrative Resulting Agency Comment IN Seema Artis MD LAB BLOOD ORDERABLES Nika perez Result [facility] [address] [place] [address], [facility] [phone] * (ABNORMAL) Basic metabolic panel (03/02/2019 5:24 AM PRODUCT SAFETY SPECIALIST) Sodium 136 135 - 145 mmol/L [facility] Potassium 4.0 3.3 - 5.1 mmol/L [facility] Chloride 105 96 - 108 mmol/L [facility] Carbon Dioxide 26 22 - 32 mmol/L [facility] Anion Gap 5(L) 7 - [address] [facility] Glucose 94 70 - 100 mg/dL [facility] BUN 10 8 - 25 mg/dL [facility] Creatinine 0.7 0.5 - 1.1 mg/dL [facility] Comment: NOTE: Estimated GFR (Cockroft-Gault) will NOT be calculated unless patient Height and Weight were entered. Also, Kidney Disease Stage (GFR) and Estimated GFR (Cockroft-Gault) will NOT be calculated if Creatinine result is <0.2. Kidney Disease Stage >90 mL/MIN [facility] Comment: NOTE; ??The GFR is an estimated [...] failure or on dialysis Est GFR (Cockcroft-G) 148 ml/MIN [facility] Comment: Estimated GFR(Cockroft-Gault)is used to calculate patient medication dosage Calcium 8.8 8.6 - 10.3 mg/dL [facility] 03/02/2019 5:24 AM PRODUCT SAFETY SPECIALIST 03/02/2019 5:27 AM PRODUCT SAFETY SPECIALIST Narrative Resulting Agency Comment IN Seema Artis MD LAB BLOOD ORDERABLES Edit ed Result - Final Performing Organization Address [facility] Co de Phone Number [address] [phone] * Troponin I (03/02/2019 5:24 AM PRODUCT SAFETY SPECIALIST) Troponin I <0.300 0.000 - 0.300 ng/mL [facility] Comment: Reference using CLOVER Chemiluminescence ? Negative: Repeat in 4-6 hours as indicated. 03/02/2019 5:24 AM PRODUCT SAFETY SPECIALIST 03/02/2019 5:27 AM PRODUCT SAFETY SPECIALIST Narrative Resulting Agency Comment IN Seema Artis MD LAB BLOOD ORDERABLES Nika l Result Performing Organization Address [facility] [place] [address], [facility] [phone] * (ABNORMAL) Heparin anti factor Xa activity (03/02/2019 5:24 AM PRODUCT SAFETY SPECIALIST) [facility] Heparin Chromogenic 0.94(H) 0.30 - 0.70 IU/mL [facility] Comment: Anti-factor Xa is used to monitor unfractionated Heparin in weight-based Heparin therapy. ??At [facility], anti-factor Xa cannot be used to monitor Low Molecular Weight Heparin. ??If Low Molecular Weight Heparin monitoring is desired, please order LMWH and notify Heme at extension [phone]. 03/02/2019 5:24 AM PRODUCT SAFETY SPECIALIST 03/02/2019 5:27 AM PRODUCT SAFETY SPECIALIST Narrative [facility] - 03/02/2019 5:38 AM PRODUCT SAFETY SPECIALIST Is patient on IV unfractionated heparin Y Resulting Agency Comment IN Giuliana Todd MD LAB BLOOD ORDERABLES F inal Result [facility] [address] [place] [address], [facility] [phone] * (ABNORMAL) CBC with auto differential (03/02/2019 5:24 AM PRODUCT SAFETY SPECIALIST) [facility] WBC 9.5 3.8 - 9.9 X10 3/ul [facility] RBC 2.85(L) 3.90 - 5.20 x10 6/ul [facility] Comment: Results reviewed Hemoglobin 7.7(L) 11.9 - 15.5 g/dL [facility] Comment: Results reviewed Hct 25.4(L) 35.6 - 45.5 % [facility] MCV 89.1 81.3 - 96.[address] [facility] MCH 27.0(L) 27.1 - 33.[address] [facility] MCHC 30.3(L) 32.3 - 35.7 g/dl [facility] RDW 27.3(H) 11.1 - 14.9 % [facility] Plt Count 142(L) 150 - 400 x10 3/ul [facility] MPV 9.5 9.1 - 12.[address] [facility] Neut % 72.9 % [facility] Immature Gran % 0.4 % [facility] Lymph % 15.7 % [facility] Rankin % 8.1 % [facility] Eos % 2.7 % [facility] AUTO BASO % 0.2 % [facility] NEUTROPHIL ABS # 6.9(H) 1.7 - 6.5 x10 3/ul [facility] Immature Gran # 0.0 0.0 - 0.1 x10 3/ul [facility] Absolute Lymphs (auto) 1.5 0.8 - 3.3 x10 3/ul [facility] Absolute Monos (auto) 0.8 0.2 - 0.8 x10 3/ul [facility] Absolute Eos (auto) 0.3 0.0 - 0.5 x10 3/ul [facility] BASOPHIL ABS # 0.0 0.0 - 0.1 x10 3/ul [facility] Nucleat RBC Rel Count 0.0 #/100WBC [facility] NRBC abs 0.00 0.00 - 0.01 x10 3/ul [facility] Absolute Neutrophils 6,900 200 - 8,000 /ul [facility] 03/02/2019 5:24 AM PRODUCT SAFETY SPECIALIST 03/02/2019 5:27 AM PRODUCT SAFETY SPECIALIST Narrative Resulting Agency Comment IN Seema Artis MD LAB BLOOD ORDERABLES Nika perez Result [facility] [address] [place] [address], [facility] [phone] * Troponin I (03/01/2019 11:32 PM PRODUCT SAFETY SPECIALIST) Troponin I <0.300 0.000 - 0.300 ng/mL [facility] Comment: Reference using [employer]OVER Chemiluminescence ? Negative: Repeat in 4-6 hours as indicated. 03/01/2019 11:3 2 PM PRODUCT SAFETY SPECIALIST 03/01/2019 11:35 PM PRODUCT SAFETY SPECIALIST Narrative Resulting Agency Comment IN us Seema Artis MD LAB BLOOD ORDERABLES Nika ana Result [facility] [employer] [facility] [place] [address], [facility] [phone] * CTA Chest W IV Contrast - PE (03/01/2019 10:16 PM PRODUCT SAFETY SPECIALIST) Anatomical Region Laterality Modality Body N/A Computed Tomogra phy 03/01/2019 10:5 6 PM PRODUCT SAFETY SPECIALIST Narrative 03/01/2019 11:02 PM PRODUCT SAFETY SPECIALIST Patient Name: TIARRA ADDISON ?Ordering Dr: Seema Artis MD ?? D.O.B: 1970 ? Exam Date: 03/01/19 ?? 221 ?? Age: 48 ?Sex: Female ? MR#: [id number] ?? Loc: ? RADIOLOGY REPORT ?? Order #[id number] ?? CT Scan ? CTA Chest W IV Contrast - PE ? Signed ?? EXAM DESCRIPTION: ??CTA Chest W IV Contrast - PE ? REASON FOR STUDY: ??Chest pain with coughing for 3 days ? TECHNIQUE: ??CT angiogram of the chest [...] TYPE/DOSE: ??80 cc Optiray 350 injected via left upper arm ? COMPARISON: ??01/02/2019 ? FINDINGS: ? VASCULATURE: There is nonocclusive thrombus in bilateral lower lobe segmental ?? pulmonary arteries. ??Pulmonary trunk and main pulmonary arteries are ?? unremarkable. ? LUNGS: No suspicious nodule, mass, or consolidation ? PLEURA: No effusion. No pneumothorax. ? MEDIASTINUM/CHARANJIT: Benign calcified lymph nodes. ? HEART: Enlarged. ??No interventricular septal bowing. ? AXILLA: No adenopathy. ? CHEST WALL: No masses. ??No subcutaneous air. ? HARDWARE/LINES/TUBES: None. ? UPPER ABDOMEN: Gastric bypass changes. ??Diffuse hepatic steatosis. ? MUSCULOSKELETAL: No aggressive lesions ? OTHER: No significant abnormality. ? IMPRESSION: ??Bilateral lower lobe segmental pulmonary arterial nonocclusive ?? thrombus. ??No evidence of right heart strain. ? Discussed with the ordering physician at 11 p.m.. ? THIS IS AN ELECTRONICALLY VERIFIED FINAL REPORT ?? 03/01/2019 11:02 PM - Electronically signed by Juan Rodriguez M.D. ?? Juan Rodriguez M.D. ? RS ?? D: ??03/01/2019 11:02 PM ?? T: ? Report ID: [id number] ?? Reading Location: ??[id number] ? REPORT ELECTRONICALLY SIGNED IN OTHER VENDOR SYSTEM ?? Resulting Agency Comment E Procedure Note Juan Rodriguez MD - 03/01/2019 Patient Name: TIARRA ADDISON Dr: Seema Artis MD D.O.B: 1970 Exam Date: 03/01/192215 Age: 48 Sex: Female MR#: [id number] Loc: RADIOLOGY REPORT Order #[id number] CT Scan CTA Chest W IV Contrast - PE Signed EXAM DESCRIPTION: CTA Chest W IV Contrast - PE REASON FOR STUDY: Chest pain with coughing for 3 days TECHNIQUE: CT angiogram of the chest performed with intravenous contrast using helical scanning technique with dynamic intravenous contrastinjection. Reconstructed coronal and sagittal MPR images reviewed. All images storedon PACS. 3D MIP images rendered on scanning unit and reviewed at time of interpretation. Automated exposure control was used as a doseoptimization technique for this examination. CONTRAST TYPE/DOSE: 80 cc Optiray 350 injected via left upper arm COMPARISON: 01/02/2019 FINDINGS: VASCULATURE: There is nonocclusive thrombus in bilateral lower lobesegmental pulmonary arteries. Pulmonary trunk and main pulmonary arteries are unremarkable. LUNGS: No suspicious nodule, mass, or consolidation PLEURA: No effusion. No pneumothorax. MEDIASTINUM/CHARANJIT: Benign calcified lymph nodes. HEART: Enlarged. No interventricular septal bowing. AXILLA: No adenopathy. CHEST WALL: No masses. No subcutaneous air. HARDWARE/LINES/TUBES: None. UPPER ABDOMEN: Gastric bypass changes. Diffuse hepatic steatosis. MUSCULOSKELETAL: No aggressive lesions OTHER: No significant abnormality. IMPRESSION: Bilateral lower lobe segmental pulmonary arterialnonocclusive thrombus. No evidence of right heart strain. Discussed with the ordering physician at 11 p.m.. THIS IS AN ELECTRONICALLY VERIFIED FINAL REPORT 03/01/2019 11:02 PM - Electronically signed by Juan Rodriguez M.D. RS T: Report ID: [id number] Reading Location: [id number] REPORT ELECTRONICALLY SIGNED IN OTHER VENDOR SYSTEM Seema Artis MD IMG CT PROCEDURES Final R esult * (ABNORMAL) B-type natriuretic peptide (03/01/2019 9:20 PM PRODUCT SAFETY SPECIALIST) [facility] B-Natriuretic Peptide 172(H) 0 - 100 pg/mL [facility] Comment: B Natriutetic Peptide METHOD: ??[employer] Next [employer]um[employer] XP using ADONAY. Decision threshold of 100 [...] hours of bolus or infusion of nesiritide. 03/01/2019 9:20 PM PRODUCT SAFETY SPECIALIST 03/01/2019 11:12 PM PRODUCT SAFETY SPECIALIST Narrative [facility] - 03/01/2019 11:48 PM PRODUCT SAFETY SPECIALIST MOBI ADD-ON TO EXTRA TUBE IN LAB 2310] Resulting Agency Comment IN Seema Artis MD LAB BLOOD ORDERABLES Nika l Result [facility] [address] [place], [place] [id number] [place] [address] * (ABNORMAL) CBC with auto differential (03/01/2019 9:06 PM PRODUCT SAFETY SPECIALIST) [facility] WBC 12.2(H) 3.8 - 9.9 X10 3/ul [facility] RBC 3.59(L) 3.90 - 5.20 x10 6/ul [facility] Hemoglobin 9.6(L) 11.9 - 15.5 g/dL [facility] Hct 32.0(L) 35.6 - 45.5 % [facility] MCV 89.1 81.3 - 96.[address] [facility] MCH 26.7(L) 27.1 - 33.[address] [facility] MCHC 30.0(L) 32.3 - 35.7 g/dl [facility] RDW 27.6(H) 11.1 - 14.9 % [facility] Plt Count 142(L) 150 - 400 x10 3/ul [facility] MPV 9.6 9.1 - 12.[address] [facility] Neut % 79.6 % [facility] Immature Gran % 0.3 % [facility] Lymph % 10.6 % [facility] Rankin % 7.9 % [facility] Eos % 1.4 % [facility] AUTO BASO % 0.2 % [facility] NEUTROPHIL ABS # 9.7(H) 1.7 - 6.5 x10 3/ul [facility] Immature Gran # 0.0 0.0 - 0.1 x10 3/ul [facility] Absolute Lymphs (auto) 1.3 0.8 - 3.3 x10 3/ul [facility] Absolute Monos (auto) 1.0(H) 0.2 - 0.8 x10 3/ul [facility] Absolute Eos (auto) 0.2 0.0 - 0.5 x10 3/ul [facility] BASOPHIL ABS # 0.0 0.0 - 0.1 x10 3/ul [facility] Nucleat RBC Rel Count 0.0 #/100WBC [facility] NRBC abs 0.00 0.00 - 0.01 x10 3/ul [facility] Platelet Evaluation AGREE AGREE [facility] Comment: Slide review of platelets correlates with instrument count. Hypochromasia 2+ [facility] Anisocytosis 2+ [facility] Microcytosis 1+ [facility] Macrocytosis 1+ [facility] Absolute Neutrophils 9,700(H) 200 - 8,000 /ul [facility] 03/01/2019 9:06 PM PRODUCT SAFETY SPECIALIST 03/01/2019 9:08 PM PRODUCT SAFETY SPECIALIST Narrative Resulting Agency Comment ER Seema Artis MD LAB BLOOD ORDERABLES Nika l Result Performing Organization Address [facility] Co de Phone Number [address] [phone] * (ABNORMAL) D-dimer, quantitative (03/01/2019 9:06 PM PRODUCT SAFETY SPECIALIST) Pathologist [facility] D-Dimer, Quantitative >20,000(H ) <500 ng/mLFEU [facility] Comment: Studies indicate that a D-Dimer level of <500 ng/ml FEU has a >95% negative predictive value for DVT,DIC,PE and other embolus conditions. ??Levels >500 ng/ml FEU may be present in a wide variety of conditions and should not be considered diagnostic of any disease state. Please note unit of measure has changed from ug/ml FEU to ng/ml FEU effective 02/17/19. 03/01/2019 9:06 PM PRODUCT SAFETY SPECIALIST 03/01/2019 9:08 PM PRODUCT SAFETY SPECIALIST Narrative Resulting Agency Comment ER Seema Artis MD LAB BLOOD ORDERABLES Nika perez Result Performing Organization Address City/[facility] Co de Phone Number [address] [phone] * (ABNORMAL) Protime-INR (03/01/2019 9:06 PM PRODUCT SAFETY SPECIALIST) Pathologist [facility] PT 16.1(H) 12.2 - 14.[address] [facility] Comment: New reference ranges in use 6-28-19. INR 1.[address] [facility] Comment: Recommended Therapeutic range for Oral Anticoagulant Therapy No anti-coagulation therapy ? Normal Range: ?0.8-1.4 Anti-coagulation therapy ? Low intensity therapy ?2.0-3.0 ? High intensity therapy ?? 2.5-3.5 Critical Value ? Greater than or equal to 5.0 Patients should be monitored for serious bleeding. 03/01/2019 9:06 PM PRODUCT SAFETY SPECIALIST 03/01/2019 9:08 PM PRODUCT SAFETY SPECIALIST Narrative Resulting Agency Comment ER Seema Artis MD LAB BLOOD ORDERABLES Nika l Result Performing Organization Address [facility] Co de Phone Number [facility] [place] [address], [facility] [phone] * ECG 12 lead (03/01/2019 8:24 PM PRODUCT SAFETY SPECIALIST) Ventricular Rate EKG/Min 73 BPM ER RADIOLOGY Atrial Rate 73 BPM ER RADIOLOGY MS-Interval (MSEC) 162 ms ER RADIOLOGY QRS-Interval (MSEC) 84 ms ER RADIOLOGY QT-Interval (MSEC) 414 ms ER RADIOLOGY QTc 456 ms ER RADIOLOGY P Heidrick 23 degrees ER RADIOLOGY R Heidrick -4 degrees ER RADIOLOGY T Heidrick 5 degrees ER RADIOLOGY Diagnosis Normal sinus rhythm Minimal voltage criteria for LVH, may be normal variant Borderline ECG When compared with ECG of 02-JAN-2019 16:21, No significant change was found ER RADIOLOGY 03/01/2019 8:24 PM PRODUCT SAFETY SPECIALIST 03/02/2019 3:53 PM PRODUCT SAFETY SPECIALIST Narrative Resulting Agency Comment INPAT Seema Artis MD ECG ORDERABLES Final Res ult Performing Organization Address City/[facility]/ZIP Co de Phone Number ER RADIOLOGY * XR Chest 1 View (03/01/2019 12:00 AM PRODUCT SAFETY SPECIALIST) Anatomical Region Laterality Modality Body, Chest N/A Radiographic Alexsandra ging 03/01/2019 8:46 PM PRODUCT SAFETY SPECIALIST Narrative 03/01/2019 8:47 PM PRODUCT SAFETY SPECIALIST Patient Name: TIARRA ADDISON ?Ordering Dr: Seema Artis MD ?? D.O.B: 1970 ? Exam Date: 03/01/19 ?? 0000 ?? Age: 48 ?Sex: Female ? MR#: [id number] ?? Loc: ? RADIOLOGY REPORT ?? Order #[id number] ?? Radiology ? Chest 1 View Portable ? Signed ?? EXAM DESCRIPTION: ??Chest 1 View Portable ? REASON FOR STUDY: ??DRY COUGH X 3 WEEKS, HX OF HTN/CHF/PE/DVT ? TECHNIQUE: ??AP portable radiographic view of the chest acquired. ? COMPARISON: ??Chest radiograph 01/03/2019 and 01/02/2019 ? FINDINGS: ? LUNGS/PLEURA: No focal consolidation or pneumothorax. No pleural effusion. ? HEART/MEDIASTINUM: Heart size is normal. Normal mediastinal and hilar contours. ? HARDWARE/LINES/TUBES: None. ? BONES: No acute findings. ? OTHER: No other significant finding. ? IMPRESSION: ??No acute cardiopulmonary disease. ? THIS IS AN ELECTRONICALLY VERIFIED FINAL REPORT ?? 03/01/2019 8:47 PM - Electronically signed by Paola Mendez M.D. ?? Paola Mendez M.D. ? RB ?? D: ??03/01/2019 8:47 PM ?? T: ? Report ID: [id number] ?? Reading Location: ??[id number] ? REPORT ELECTRONICALLY SIGNED IN OTHER VENDOR SYSTEM ?? Resulting Agency Comment E Procedure Note Paola Mendez MD - 03/01/2019 Patient Name: TIARRA ADDISON Dr: Seema Artis MD, D.O.B: 1970 Exam Date: 03/01/19 0000 Age: 48 Sex: Female MR#: [id number] Loc: RADIOLOGY REPORT Order #[id number] Radiology Chest 1 View Portable Signed EXAM DESCRIPTION: Chest 1 View Portable REASON FOR STUDY: DRY COUGH X 3 WEEKS, HX OF HTN/CHF/PE/DVT TECHNIQUE: AP portable radiographic view of the chest acquired. COMPARISON: Chest radiograph 01/03/2019 and 01/02/2019 FINDINGS: LUNGS/PLEURA: No focal consolidation or pneumothorax. No pleuraleffusion. HEART/MEDIASTINUM: Heart size is normal. Normal mediastinal and hilarcontours. HARDWARE/LINES/TUBES: None. BONES: No acute findings. OTHER: No other significant finding. IMPRESSION: No acute cardiopulmonary disease. THIS IS AN ELECTRONICALLY VERIFIED FINAL REPORT 03/01/2019 8:47 PM - Electronically signed by Paola GOODMAN T: Report ID: [id number] Reading Location: [place] [id number] REPORT ELECTRONICALLY SIGNED IN OTHER VENDOR SYSTEM us Seema Artis MD IMG XR PROCEDURES Final R esult documented in this encounter Visit Diagnoses Not on filedocumented in this encounter Care Teams Telegraph Office Manager Relationship Specialty Start Date End Date Gerard Sutton MD PCP - General 11/21/18 03/27/20 Unknown, Notinfile 02/18/18 03/27/20 documented as of this encounter
--- OUTSIDE RECORDS SUMMARY | 2024-03-24 18:56 | XMS_ITS | Encounter Summary ---
Author Organization [facility] Healthcare Address [address] [place] [address] Care Team Providers Care Ice Cream Dipper Name Role Phone Unknown, Notinfile Primary Care Provider Unavail able Unknown, Notinfile Unavailable Unavailable Encounter Details Date Type Department Care Team (Latest Contact Info) Description 03/26/2018 8:14 PM HEEL [employer]AT [employer]AP [facility]ER - 03/26/2018 11:05 PM HE[employer]AT [employer] Hospital Encounter [facility] Radiology [address] [place] [address] Cynthia Ryan MD [address] [place] [address] Discharge Disposition: Discharge to home or self [...] as needed for wheezing. 1 Inhaler 03/27/2018 03/27/2018 albuterol HFA (PROVENTIL HFA,VENTOLIN HFA,PROAIR HFA) 90 mcg/actuation inhaler Inhale 1-2 puffs every 6 (six) hours as needed for wheezing. 1 Inhaler 03/27/2018 03/28/2020 benzonatate (TESSALON) 100 mg capsuleIndicatio ns:Cough Take 1 capsule (100 mg total) by mouth 3 (three) times a day as needed for cough. 15 capsule 03/27/2018 03/27/2018 benzonatate (TESSALON) 100 mg capsuleIndicatio ns:Cough Take [...] tablets for severe pain). 6 tablet 03/27/2018 03/27/2018 oxyCODONE-acetam inophen (PERCOCET) 5-325 mg per tabletIndication [...] Priority Date/Time Associated Diagnosis Comments XR CHEST PA LATERAL 2 VIEWS ED 03/26/2018 8:18 PM HEEL SEAT FL[employer] STAPLER documented in this encounter Results * XR Chest Pa Lateral 2 Vw (03/26/2018 8:18 PM HEEL SEAT FLAP STAPLER) Anatomical Region Laterality Modality Body, Chest N/A Computed Radiogr aphy 03/26/2018 8:33 PM HEEL SEAT FLAP STAPLER Impressions 03/27/2018 11:17 AM HEEL SEAT FLAP STAPLER Two-view chest examination is submitted without comparison. ??The lung volumes are small. ??Increased interstitial opacities are favored to represent expiratory radiograph. ??There is no focal pneumonic consolidation. ??There is no pulmonary edema or pleural effusion. ??There is no pneumothorax. ??Cardiac mediastinal silhouette is within normal limits. Dictated by: Steve Hoskins M.D. Electronically signed by: Seema Castillo M.D. Narrative 03/27/2018 11:17 AM HEEL SEAT FLAP STAPLER EXAMINATION: 2 view chest radiograph History: Generalized chest pain, dry cough Procedure Note Seema Castillo MD - 03/27/2018 EXAMINATION: 2 view chest radiograph History: Generalized chest pain, dry cough IMPRESSION: Two-view chest examination is submitted without comparison. The lung volumes are small. Increased interstitial opacities are favored to represent expiratory radiograph. There is no focal pneumonic consolidation. There is no pulmonary edema or pleural effusion. There is no pneumothorax. Cardiac mediastinal silhouette is within normal limits. Dictated by: Steve Hoskins M.D. Electronically signed by: Seema Castillo M.D. Natty Forte MD IMG XR PROCEDURES Nika l Result documented in this encounter Visit Diagnoses Not on filedocumented in this encounter Care Teams Ice Cream Dipper Relationship Specialty Start Date End Date Unknown, Notinfile PCP - General 02/18/18 10/24/18 Unknown, Notinfile 02/18/18 03/27/20 documented as of this encounter
--- OUTSIDE RECORDS SUMMARY | 2024-03-24 18:56 | XMS_ITS | Encounter Summary ---
Author Organization [facility] Healthcare Address [address] [place] [address] Care Team Providers Care Foster Care Therapist Name Role Phone Unknown, Notinfile Primary Care Provider Unavail able Unknown, Notinfile Unavailable Unavailable Reason for Visit * Reason Comments Chest Pain Shortness of Breath Encounter Details Date Type Department Care Team (Late st Contact Info) Description 03/26/2018 11:06 PM STONE SETTER APPRENTICE - 03/27/2018 4:53 AM STONE SETTER APPRENTICE Emergency [facility] Emergency Department [address] [place] [address] Natty Forte MD [address] [place] [address] Cough (Primary Dx) Discharge Disposition: Discharge to home [...] Sign Reading Time Taken Comments Blood Pressure 108/78 03/27/2018 3:50 AM STONE SETTER APPRENTICE Pulse 90 03/27/2018 3:50 AM STONE SETTER APPRENTICE Temperature 36.3 ??C (97.3 ??F) 03/26/2018 7:46 PM CS T Respiratory Rate 18 03/27/2018 3:50 AM STONE SETTER APPRENTICE Oxygen Saturation 95% 03/27/2018 3:50 AM STONE SETTER APPRENTICE Inhaled Oxygen Concentration - - Weight 136.1 kg (300 lb) 03/26/2018 7:49 PM STONE SETTER APPRENTICE Height 170.2 cm (5' 7 ) 03/26/2018 7:49 PM STONE SETTER APPRENTICE Body Mass Index 46.99 03/26/2018 7:49 PM STONE SETTER APPRENTICE documented in this encounter Discharge Instructions * Discharge Instructions* Bev Still MD - 03/27/2018 1:23 AM STONE SETTER APPRENTICE - you likely have inflammation in your lungs due to a viral infection (bronchitis), you may continue to cough for a few more weeks. You can use the medication provided as well as over the counter cough medication to help with symptoms - return to the emergency room for uncontrolled chest pain, passing out, respiratory distress, highfevers, other concerning symptoms - use the number provided to set-up follow-up for your symptoms E SETTER APPRENTICE * Attachments The following attachments cannot be sent through Care Everywhere. * Cold Symptoms (Key Worker) (Zambian) documented in this encounter Medications at Time [...] (PERCOCET) 5-325 mg per tabletIndications: Pain Take 1-2 tablets by mouth every 6 (six) hours as needed for pain (1 tablet for mild to moderate pain or 2 tablets for severe pain). 6 tablet 03/27/2018 0 benzonatate (TESSALON) 100 mg capsuleIndications :Cough Take 1 capsule (100 mg total) by mouth 3 (three) times a day as needed for cough. 15 capsule 03/27/2018 0 albuterol HFA (PROVENTIL HFA,VENTOLIN HFA,PROAIR HFA) 90 mcg/actuation inhaler Inhale 1-2 puffs every 6 (six) hours as needed for wheezing. 1 Inhaler 03/27/2018 0 oxyCODONE-acetamin ophen (PERCOCET) 5-325 mg per tabletIndications: Pain Take 1-2 tablets by mouth every 6 (six) hours as needed for pain (1 tablet for mild to moderate pain or 2 tablets for severe pain). 6 tablet 03/27/2018 8 albuterol HFA (PROVENTIL HFA,VENTOLIN HFA,PROAIR HFA) 90 mcg/actuation inhaler Inhale 1-2 puffs every 6 (six) hours as needed for wheezing. 1 Inhaler 03/27/2018 8 benzonatate (TESSALON) 100 mg capsuleIndications :Cough Take 1 capsule (100 mg total) by mouth 3 (three) times a day as needed for cough. 15 capsule 03/27/2018 8 documented in this encounter Discharge Disposition Disposition Code Departure Means Destination Discharge to home or self care documented in this encounter Progress Notes * Cyndie Beavers, RICHARD - 03/27/2018 4:30 AM CST 03/27/18 0430 Discharge Additional Assistance Financial assistance Other (comment) SW received a call from RN re: lymphedema clinics in [place]. SW met with pt at bedside. Pt stated that she resides mostly in [place], and was looking for a clinic closer to where she may be staying. SW attempted to search for lymphedema clinics, but did not find anything specific to what pt was requesting. SW explained to pt that she will need to call her insurance ([employer]) because they will be able to provide her with lists of clinics or providers that treat lymphedema that are in network. SW further explained that if she does not go where her insurance is accepted she may end up with a large bill. Pt voiced understanding. SW provided pt with the number for [employer] and her policy number due to pt losing her card recently in order to contact her insurance company. Pt did not identify any other needs. SW will remain available as needed. Cyndie Beavers LMSW [phone] E SETTER APPRENTICE * Cyndie Beavers MSW - 03/27/2018 1:34 AM CST 03/27/18 0134 Discharge Additional Assistance Financial assistance Other (comment) SW responding to a consult requesting long term resources for pt. SW met with pt who stated pt is homeless. SW provided pt with a listing of local shelters, drop-in centers, and meal providers. SW reviewed the list with pt and explained the need to contact Housing Hotline for screening for local shelters. Pt voiced understanding that she would be responsible for finding a long term to go to at time of discharge. No further assistance needed at this time. Cyndie CARLOS Beavers [phone]. E SETTER APPRENTICE documented in this encounter ED Notes * Mi Russell RN - 03/27/2018 4:22 AM CST Patient provided written and verbal education regarding discharge instructions, diagnosis, home care, follow up, 3 new prescriptions, and when to seek medical attention. Pt has no questions or concerns. Pt ambulatory upon discharge. Mi Russell RN 03/27/18 0422 E SETTER APPRENTICE * Natty Forte MD - 03/27/2018 12:12 AM CST HPI 47yoF PMH HTN, DVT on Xarelto, chronic lymphedema p/w chest pain. Patient reports chest pain initially started 3weeks prior with cough, resolved and then recurred today, 2hours prior to arrival. Describes as shooting pain that radiates into the L arm, caused by movement/coughing. Has had mildly worsening [id number] associated with rhinnorhea/congestion, SOB. Also reports worsening b/l LE swelling, R>L over the past week (always R>L). Reports symptoms are not consistent with prior cellulitis. Denies fevers/chills, nausea/vomiting/abdominal pain, weakness/numbness/tingling. Of note patient has been on unknown abx [id number] for UTI. Chief Complaint Patient presents with ??? Chest Pain ??? Shortness of Breath Patient History Past Medical History: Diagnosis Date ??? Cellulitis ??? DVT (deep venous thrombosis) (CMS/HCC) ??? Hypertension History reviewed. No pertinent surgical history. None Family History Problem Relation Age of Onset ??? Diabetes Mother ??? Hypertension Mother ??? Diabetes Father ??? Hypertension Father Social History Substance Use Topics ??? Smoking status: Never Smoker ??? Smokeless tobacco: Never Used ??? Alcohol use Yes Social History Social History Narrative ??? No narrative on file Review of Systems Constitutional: Negative for fever. HENT: Positive for rhinorrhea. Respiratory: Positive for cough and shortness of breath. Cardiovascular: Positive for chest pain. Gastrointestinal: Negative for abdominal pain. Genitourinary: Negative for dysuria. Musculoskeletal: Positive for joint swelling. Skin: Negative for rash. Neurological: Negative for numbness. Psychiatric/Behavioral: Negative for confusion. Physical Exam ED Triage Vitals [03/26/181945] Temp Pulse Resp BP SpO2 36.3 ??C (97.3 ??F) 78 16 115/63 96 % Temp src Heart Rate Source Patient Position BP Location FiO2 (%) Oral -- -- -- -- Physical Exam Constitutional: He is oriented to person, place, and time. He appears well-developed. HENT: Head: Normocephalic. Eyes: Pupils are equal, round, and reactive to light. Neck: Normal range of motion. Cardiovascular: RRR, reproducible anterior L sided chest pain Pulmonary/Chest: CTAB beyond faint wheeze with coughing throughout, more prominent in JEANINE Abdominal: Soft, NTND Musculoskeletal: Significant nonpitting edema b/l with R>L swelling, mild peu d'orange changes to medial side of R leg, warm and well perfused throuhgout Neurological: He is alert and oriented to person, place, and time. Skin: Skin is warm and dry. See MSK, no erythema or increased warmth in legs Nursing note and vitals reviewed. [facility] ED Course as of Mar 27 606 Time: 03/27 130 Comment: Pt now states she has nowhere to sleep, will have social work see her to offer resources. By: Natty Forte MD Time: 03/27 131 Comment: Pt reports she has known severe anemia although we do not have a previous hemoglobin. Nohx suggesting acute blood loss. By: Natty Forte MD Time: 03/27 328 Comment: 2. Troponin negative discharged home By: Kamla Damon, GARRETT MDM 47yoF PMH HTN, DVT on Xarelto, chronic lymphedema p/w chest pain in the setting of 3weeks of cough,normal vital signs and trop/CXR negative most consistent with bronchitis from a viral URI. EKG withnonspecific T wave inversions but with reproducible chest pain, story unlikely to fit with ACS makes it unlikely (HEART score 3). Currently on Xarelto, no tachycardia or hypoxia makes PE unlikely. CXR without PNA and without fevers is unlikely. No CXR or clinical evidence of fluid overload (lower extremity swelling with pitting component). Plan: -CBC, BMP - EKG, tropx2, CXR - symptomatic management- albuterol, tessalon, dextromorphan, ibuprofen/tylenol - d/c pending neg second trop Cough Attending Attestation Note I, Natty Forte MD, have seen and evaluated the patient on 03/27/18 and agree with the findings and plan of care as documented in the resident's note unless my note states otherwise. Pt reports compliance w her xarelto, states she doesn't have a place to stay. Will have social workoffer resources. Natty Forte MD 03/27/18 0609 E SETTER APPRENTICE * Lalo Rick RN - 03/26/2018 11:06 PM CST Bed: [id number] Expected date: Expected time: Means of arrival: Car Comments: Lalo Rick RN 03/26/18 1441 E SETTER APPRENTICE * Tg Croft RN - 03/26/2018 7:52 PM CST Pt presents with 1 day of generalized CP, states worse with movement. Pt with dry cough noted during exam, pt states cough x 3 weeks. Pt endorses 2 days of SOB, states worse with exertion. Pt also reports 2 days of N/V/D, states having 3-4 BM/day and last vomited just [employer]OR [employer]TE [employer]. Pt also complaining of RLE pain, states its lymphedema , pt able to ambulate in triage. E SETTER APPRENTICE documented in this encounter Miscellaneous Notes * ED Procedure Note - Allison Olivier MD - 03/26/2018 8:03 PM STONE SETTER APPRENTICE Associated Order(s): ECG 12-LEAD Procedure ECG 12 lead Date/Time: 03/26/2018 8:03 PM Performed by: ALLISON OLIVIER Authorized by: ALLISON OLIVIER Rate: ECG rate: 69 ECG rate assessment: normal Rhythm: Rhythm: sinus rhythm Ectopy: Ectopy: none QRS: QRS axis: Normal QRS intervals: Normal Conduction: Conduction: normal ST segments: ST segments: Normal T waves: T waves: normal Previous ECG: Previous ECG: Unavailable Interpretation: Interpretation: normal Recommended Follow-up: Recommended follow up: further workup in the ED Comments: Moderate risk for acs Allison Olivier MD 03/26/182002 E SETTER APPRENTICE documented in this encounter Plan of Treatment Not on file documented as of this encounter Procedures Procedure Name Priority Date/Time Associated Diagnosis Comments TROPONIN I STAT 03/27/2018 1:28 AM STONE SETTER APPRENTICE CBC WITHOUT DIFFERENTIAL STAT 03/27/2018 1:28 AM STONE SETTER APPRENTICE XR CHEST PA LATERAL 2 VIEWS ED 03/26/2018 8:18 PM STONE SETTER APPRENTICE DIFFERENTIAL AUTO STAT 03/26/2018 8:1 2 PM STONE SETTER APPRENTICE CBC WITH AUTO DIFFERENTIAL STAT 03/26/2018 8:12 PM STONE SETTER APPRENTICE TROPONIN I STAT 03/26/2018 8:12 PM STONE SETTER APPRENTICE BASIC METABOLIC PANEL STAT 03/26/2018 8:12 PM STONE SETTER APPRENTICE ECG 12-LEAD STAT 03/26/2018 8:03 PM STONE SETTER APPRENTICE documented in this encounter Results * (ABNORMAL) CBC without differential (03/27/2018 1:28 AM STONE SETTER APPRENTICE) WBC 6.8 3.8 - 9.9 K/cumm [facility] Hgb 8.0(L) 13.0 - 17.5 g/dL [facility] Hct 27.9(L) 38.9 - 50.3 % [facility] Plt 289 150 - 400 K/cumm [facility] MPV 9.7 9.1 - 12.3 fL [facility] RBC 3.74(L) 4.30 - 5.80 M/cumm [facility] MCV 74.6(L) 81.3 - 96.4 fL [facility] MCH 21.4(L) 27.1 - 33.3 pg [facility] MCHC 28.7(L) 32.3 - 35.7 g/dL [facility] RDW CV 19.2(H) 11.1 - 14.9 % [facility] RDW SD 51.5(H) 35.7 - 48.1 fL [facility] NRBC abs 0.00 0.00 - 0.01 K/cumm [facility] Blood specimen (specimen) 03/27/2018 1:28 AM STONE SETTER APPRENTICE 03/27/2018 1:34 AM STONE SETTER APPRENTICE Narrative [facility] - 03/27/2018 1:43 AM STONE SETTER APPRENTICE [facility] Bev Still MD LAB BLOOD ORDERABLE S Final Result Performing Organization Address City/[facility]/ZIP Co de Phone Number [facility] [place] [place] [address] * Troponin I (03/27/2018 1:28 AM STONE SETTER APPRENTICE) Pathologist [facility] Troponin I <0.03 0.00 - 0.03 ng/mL [facility] Comment: Interpretive Data: Normal plasma Troponin I [...] for Troponin assay. References: 1. Clin Chem 2013;[id number]:[id number] 2. Journal of the [place] [employer] 2012;60:1581-98 Current Interpretive Data Last Revised Date: 2017. Blood specimen (specimen) 03/27/2018 1:28 AM STONE SETTER APPRENTICE 03/27/2018 1:34 AM STONE SETTER APPRENTICE Narrative [facility] - 03/27/2018 2:10 AM STONE SETTER APPRENTICE THE COLLE[facility]ATION [facility] ED1-17 Bev Still MD LAB BLOOD ORDERABLE S Final Result Performing Organization Address City/[facility]/ZIP Co de Phone Number [facility] [place] [place] [address] * XR Chest Pa Lateral 2 Vw (03/26/2018 8:18 PM STONE SETTER APPRENTICE) Anatomical Region Laterality Modality Body, Chest N/A Computed Radiogr aphy 03/26/2018 8:33 PM STONE SETTER APPRENTICE Impressions 03/27/2018 11:17 AM STONE SETTER APPRENTICE Two-view chest examination is submitted without comparison. ??The lung volumes are small. ??Increased interstitial opacities are favored to represent expiratory radiograph. ??There is no focal pneumonic consolidation. ??There is no pulmonary edema or pleural effusion. ??There is no pneumothorax. ??Cardiac mediastinal silhouette is within normal limits. Dictated by: Steve Hoskins M.D. Electronically signed by: Seema Castillo M.D. Narrative 03/27/2018 11:17 AM STONE SETTER APPRENTICE EXAMINATION: 2 view chest radiograph History: Generalized [...] MD IMG XR PROCEDURES Nika l Result * (ABNORMAL) Differential, auto (03/26/2018 8:12 PM STONE SETTER APPRENTICE) Neutrophil abs 5.1 1.7 - 6.5 K/cumm [facility] Imm gran abs 0.0 0.0 - 0.1 K/cumm [facility] Lymphocyte abs 2.4 0.8 - 3.3 K/cumm [facility] Monocyte abs 0.9(H) 0.2 - 0.8 K/cumm [facility] Eosinophil abs 0.4 0.0 - 0.5 K/cumm [facility] Basophil abs 0.0 0.0 - 0.1 K/cumm [facility] Neutrophil pct 57.5 % [facility] Comment: Interpretive Data Percent cell count reference ranges are not reported, since discordance with absolute values may lead to misinterpretation of CBC data. Current Interpretive Data was last revised on 2017. Imm gran pct 0.3 % [facility] Comment: Interpretive Data Percent cell count reference ranges are not reported, since discordance with absolute values may lead to misinterpretation of CBC data. Current Interpretive Data was last revised on 2017. Lymphocyte pct 27.0 % [facility] Comment: Interpretive Data Percent cell count reference ranges are not reported, since discordance with absolute values may lead to misinterpretation of CBC data. Current Interpretive Data was last revised on 2017. Monocyte pct 10.0 % [facility] Comment: Interpretive Data Percent cell count reference ranges are not reported, since discordance with absolute values may lead to misinterpretation of CBC data. Current Interpretive Data was last revised on 2017. Eosinophil pct 4.7 % [facility] Comment: Interpretive Data Percent cell count reference ranges are not reported, since discordance with absolute values may lead to misinterpretation of CBC data. Current Interpretive Data was last revised on 2017. Basophil pct 0.5 % [facility] Comment: Interpretive Data Percent cell count reference ranges are not reported, since discordance with absolute values may lead to misinterpretation of CBC data. Current Interpretive Data was last revised on 2017. Blood specimen (specimen) 03/26/2018 8:12 PM STONE SETTER APPRENTICE 03/26/2018 8:20 PM STONE SETTER APPRENTICE Narrative [facility] - 03/26/2018 8:28 PM STONE SETTER APPRENTICE us Natty Forte MD LAB BLOOD ORDERABLES F inal Result [facility] [place] [address] * Troponin I (03/26/2018 8:12 PM STONE SETTER APPRENTICE) Troponin I <0.03 0.00 - 0.03 ng/mL [facility] Comment: Interpretive Data: Normal plasma Troponin I [...] for Troponin assay. References: 1. Clin Chem 2013;[id number] 2. Journal of the [place] [employer] 2012;60:1581-98 Current Interpretive Data Last Revised Date: 2017. Blood specimen (specimen) 03/26/2018 8:12 PM STONE SETTER APPRENTICE 03/26/2018 8:20 PM STONE SETTER APPRENTICE Narrative [facility] - 03/26/2018 8:51 PM STONE SETTER APPRENTICE THE COLLECTION LOCATION IS us Natty Forte MD LAB BLOOD ORDERABLES F inal Result [facility] Department [place] [address] * (ABNORMAL) CBC with auto differential (03/26/2018 8:12 PM STONE SETTER APPRENTICE) [facility] WBC 8.9 3.8 - 9.9 K/cumm [facility] Hgb 8.6(L) 11.9 - 15.5 g/dL [facility] Hct 29.5(L) 35.6 - 45.5 % [facility] Plt 326 150 - 400 K/cumm [facility] MPV 9.6 9.1 - 12.3 fL [facility] RBC 4.02 3.90 - 5.20 M/cumm [facility] MCV 73.4(L) 81.3 - 96.4 fL [facility] MCH 21.4(L) 27.1 - 33.3 pg [facility] MCHC 29.2(L) 32.3 - 35.7 g/dL [facility] RDW CV 19.2(H) 11.1 - 14.9 % [facility] RDW SD 50.4(H) 35.7 - 48.1 fL [facility] NRBC abs 0.00 0.00 - 0.01 K/cumm [facility] Blood specimen (specimen) (Blood, Venous) 03/26/2018 8:12 PM STONE SETTER APPRENTICE 03/26/2018 8:20 PM STONE SETTER APPRENTICE Narrative [facility] - 03/26/2018 8:28 PM STONE SETTER APPRENTICE THE COLLECTION LOCATION IS us Natty Forte MD LAB BLOOD ORDERABLES F inal Result [facility] [place] [address] * Basic metabolic panel (03/26/2018 8:12 PM STONE SETTER APPRENTICE) Sodium 142 135 - 145 mmol/L [facility] Potassium, pl 4.1 3.3 - 4.9 mmol/L [facility] Chloride 109 97 - 110 mmol/L [facility] CO2 24 22 - 32 mmol/L [facility] Anion gap 9 2 - 15 mmol/L [facility] BUN 8 8 - 25 mg/dL [facility] Creatinine 0.83 0.60 - 1.10 mg/dL [facility] Glucose 91 70 - 199 mg/dL [facility] Comment: Interpretive Data Fasting glucose >/= 126 [...] interpretive data was last revised 2017. Calcium 9.7 8.5 - 10.3 mg/dL [facility] Blood specimen (specimen) 03/26/2018 8:12 PM STONE SETTER APPRENTICE 03/26/2018 8:20 PM STONE SETTER APPRENTICE Narrative [facility] - 03/26/2018 8:48 PM STONE SETTER APPRENTICE [facility] LOCATION IS us Natty Forte MD LAB BLOOD ORDERABLES F inal Result [facility] [place] [address] * ECG 12-LEAD (03/26/2018 8:03 PM STONE SETTER APPRENTICE) Narrative [facility] - 03/26/2018 8:03 PM STONE SETTER APPRENTICE Allison Olivier MD ? 03/26/2018 ??8:03 PM ECG 12 lead Date/Time: 03/26/2018 8:03 PM Performed by: ALLISON OLIVIER Authorized by: ALLISON OLIVIER Rate: ??ECG rate: ??69 ??ECG rate assessment: normal ?? Rhythm: ??Rhythm: sinus rhythm ?? Ectopy: ??Ectopy: none ?? QRS: ??QRS axis: ??Normal ??QRS intervals: ??Normal Conduction: ??Conduction: normal ?? ST segments: ??ST segments: ??Normal T waves: ??T waves: normal ?? Previous ECG: ??Previous ECG: ??Unavailable Interpretation: ??Interpretation: normal ?? Recommended Follow-up: ??Recommended follow up: further workup in the ED ?? Comments: ?? Moderate risk for acs Procedure Note Allison Olivier MD - 03/26/2018 8:03 PM CST Procedure ECG 12 lead Date/Time: 03/26/2018 8:03 PM Performed by: ALLISON OLIVIER Authorized by: ALLISON OLIVIER Rate: ECG rate: 69 ECG rate assessment: normal Rhythm: Rhythm: sinus rhythm Ectopy: Ectopy: none QRS: QRS axis: Normal QRS intervals: Normal Conduction: Conduction: normal ST segments: ST segments: Normal T waves: T waves: normal Previous ECG: Previous ECG: Unavailable Interpretation: Interpretation: normal Recommended Follow-up: Recommended follow up: further workup in the ED Comments: Moderate risk for acs Allison Olivier MD 03/26/182002 us Natty Forte MD ECG ORDERABLES Final Result [facility] documented in this encounter Visit Diagnoses Diagnosis Cough- Primary documented in this encounter Administered Medications Inactive Administered Medications - up to 3 most recent administrations Medication Order MAR Action Action Date Dose Rate Site acetaminophen (TYLENOL) tablet 1,000 mg 1,000 mg, oral, Once, On Sat03/26/18 at 1955, For 1 dose, Indications: PainIndications:Pain Given 03/26/2018 7:58 PM STONE SETTER APPRENTICE 1,000 mg albuterol (PROVENTIL,VENTOLIN) 2.5 mg/0.5 mL nebulizer solution 5 mg 5 mg, nebulization, Once (incident response specialist), On Amber 03/27/18 at 0030, For 1 dose Given 03/27/2018 12:47 AM STONE SETTER APPRENTICE 5 mg benzonatate (TESSALON) capsule 100 mg 100 mg, oral, Once, On Amber 03/27/18 at 0031, For 1 dose, Do not crush, chew, cut, dissolve, open or otherwise manipulate tablet/capsule., Indications: CoughIndications:Cough Given 03/27/2018 1:17 AM STONE SETTER APPRENTICE 100 mg dextromethorphan-guaiFENesin (ROBITUSSIN-DM) 2-20 mg/mL syrup 10 mL 10 mL, oral, Once, On Amber 03/27/18 at 0031, For 1 dose Given 03/27/2018 1:17 AM STONE SETTER APPRENTICE 10 mL ibuprofen (ADVIL,MOTRIN) tablet 800 mg 800 mg, oral, Once, On Amber 03/27/18 at 0030, For 1 dose Given 03/27/2018 1:17 AM STONE SETTER APPRENTICE 800 mg oxyCODONE (ROXICODONE) tablet 5 mg 5 mg, oral, Once, On Amber 03/27/18 at 0030, For 1 dose, Indications: PainIndications:Pain Given 03/27/2018 1:17 AM STONE SETTER APPRENTICE 5 mg documented in this encounter Discontinued Medications Medication Sig Discontinue Reason Start Date End Da te albuterol HFA (PROVENTIL HFA,VENTOLIN HFA,PROAIR HFA) 90 mcg/actuation inhaler Inhale 1-2 puffs every 6 (six) hours as needed for wheezing. 03/27/2018 03/27/2018 benzonatate (TESSALON) 100 mg capsuleIndications:Coug h Take 1 capsule (100 mg total) by mouth 3 (three) times a day as needed for cough. 03/27/2018 03/27/2018 oxyCODONE-acetaminophen (PERCOCET) 5-325 mg per tabletIndications:Pain Take 1-2 tablets by mouth every 6 (six) hours as needed for pain (1 tablet for mild to moderate pain or 2 tablets for severe pain). 03/27/2018 03/27/2018 documented as of this encounter Active and Recently Administered Medications Times are shown in STONE SETTER APPRENTICE. Scheduled Medication Order 03/25/2018 03/26/2018 03/27/2018 acetaminophen (TYLENOL) tablet 1,000 mg (COMPLETED) 1,000 mg, oral, Once, On Sat03/26/18 at 1955, For 1 dose, Indications: Pain 1957 (Given - Provider: Tg Croft RN) albuterol (PROVENTIL,VENTOLIN) 2.5 mg/0.5 mL nebulizer solution 5 mg (COMPLETED) 5 mg, nebulization, Once (incident response specialist), On Amber 03/27/18 at 0030, For 1 dose 004 (Given - Provid er: Naldo Santana RRT) benzonatate (TESSALON) capsule 100 mg (COMPLETED) 100 mg, oral, Once, On Amber 03/27/18 at 0031, For 1 dose, Do not crush, chew, cut, dissolve, open or otherwise manipulate tablet/capsule., Indications: Cough 116 (Given - Provid er: Lotus Walls RN) dextromethorphan-guaiFENe sin (ROBITUSSIN-DM) 2-20 mg/mL syrup 10 mL (COMPLETED) 10 mL, oral, Once, On Amber 03/27/18 at 0031, For 1 dose 011 (Given - Provid er: Lotus Walls RN) ibuprofen (ADVIL,MOTRIN) tablet 800 mg (COMPLETED) 800 mg, oral, Once, On Amber 03/27/18 at 0030, For 1 dose 0117 (Given - Provid er: Lotus Walls RN) oxyCODONE (ROXICODONE) tablet 5 mg (COMPLETED) 5 mg, oral, Once, On Amber 03/27/18 at 0030, For 1 dose, Indications: Pain 0117 (Given - Provid er: Louts Walls, GEOVANY) documented in this encounter Orders Nursing Count Last Ordered Date First Orde red Date NURSING COMMUNICATION 2 03/26/2018 IV Count Last Ordered Date First Orde red Date SALINE LOCK IV 1 03/26/2018 ADT Patient Update Count Last Ordered Date Firs t Ordered Date PLACE IN ED OBSERVATION 1 03/27/2018 documented in this encounter Care Teams Foster Care Therapist Relationship Specialty Start Date End Date Unknown, Notinfile PCP - General 02/18/18 10/24/18 Unknown, Notinfile 02/18/18 03/27/20 documented as of this encounter
--- OUTSIDE RECORDS SUMMARY | 2024-03-24 18:56 | XMS_ITS | Encounter Summary ---
Author Organization [facility] Healthcare Address [address] [place] [id number] Care Team Providers Care Public Services Assistant Name Role Phone Unknown, Notinfile Primary Care Provider Unavail able Encounter Details Date Type Department Care Team (Late st Contact Info) Description 02/04/2018 7:50 AM CDT Ancillary Procedure [facility] Vascular Lab [address] [place] [address] Social History Tobacco Use Types Packs/Day Years Used Date Smoking Tobacco: Never Smokeless Tobacco: Never Comments No Sex and Gender Information Value [...] Diagnosis Comments US VEIN DUPLEX LOWER EXTREMITY BILATERAL COMPLETE ED 02/04/2018 8:09 AM CDT documented in this encounter Results * US Vein Duplex Lower Extremity Bilateral Complete (02/04/2018 8:09 AM CDT) Anatomical Region Laterality Modality Vascular Bilateral Ultrasound 02/04/2018 7:50 AM CDT Narrative 02/04/2018 8:48 PM CDT [facility] - Department of Vascular Surgery, Vascular Laboratory [address] [place] [address] Lower Extremity Venous Ultrasound Report Patient Name: ENEIDA HAN : 1970 (47y 1m) Study Date: 02/04/2018 7:50:01 AM Gender: F Tech: Location: [facility] Ref.Provider: DORITA GUIDRY Quality: Adequate Order Provider: RACHELLE ZEPEDA Procedures: Vascular Report: Venous Duplex imaging was performed bilaterally in the lower extremities. The common femoral, femoral, popliteal, posterior tibial, peroneal veins were evaluated for patency, spontaneity and phasicity with Doppler, compression and augmentation maneuvers. Great saphenous vein proximal at the junction was evaluated with compression maneuvers. Indications: HX of DVT. Findings: Performing Regulatory Compliance Engineer: Evelyn Murdock RVT. Bilateral: Venous Doppler signals in the bilateral lower extremity are within normal limits for spontaneity and phasicity and respond normally to augmentation maneuvers. No evidence of deep vein thrombus by duplex, proximal to the calf. Comments: Unable to visualize deep calf veins secondary to depth of vessels. Conclusions: There is no evidence of acute deep vein thrombosis in the lower extremities bilaterally. Noninvasive venous studies cannot rule out isolated calf vein obstruction. History: Not identified. Previous Studies: No previous studies for comparison. Disclaimer: The signing physician has reviewed all images pertaining to this test. These images and this report will be retained in the patient chart by the Vascular Laboratory for the legally required time period. This chart constitutes the legal record of any testing performed. Electronically Signed By: Jatin De Jesus MD [facility] 2018-02-04 20:48:13 CDT CC: CC: Procedure Note Jatin De Jesus MD - 02/04/2018 [facility] - Department of Vascular Surgery,Vascular Laboratory [address] [place] [address] Lower Extremity Venous Ultrasound Report Patient Name: ENEIDA HANPatient ID: [id number] : 1970 (47y 1m)Study Date: 02/04/2018 7:50:01 AM Gender: FAccession #: [id number] Tech: TMLocation: [id number] Ref.Provider: DORITA GUIDRYQuality: Adequate Order Provider: Farhan ZEPEDA #: [id number] Procedures: Vascular Report: Venous Duplex imaging was performed bilaterally in the lower extremities.The common femoral, femoral, popliteal, posterior tibial, peroneal veins wereevaluated for patency, spontaneity and phasicity with Doppler, compression and augmentationmaneuvers. Great saphenous vein proximal at the junction was evaluated with compressionmaneuvers. Indications: HX of DVT. Findings: Performing Regulatory Compliance Engineer: Evelyn Murdock RVT. Bilateral: Venous Doppler signals in the bilateral lower extremity are within normallimits for spontaneity and phasicity and respond normally to augmentation maneuvers.No evidence of deep vein thrombus by duplex, proximal to the calf. Comments: Unable to visualize deep calf veins secondary to depth of vessels. Conclusions: There is no evidence of acute deep vein thrombosis in the lowerextremities bilaterally. Noninvasive venous studies cannot rule out isolated calf veinobstruction. History: Not identified. Previous Studies: No previous studies for comparison. Disclaimer: The signing physician has reviewed all images pertaining to this test.These images and this report will be retained in the patient chart by the VascularLaboratory for the legally required time period. This chart constitutes the legal record ofany testing performed. Electronically Signed By: Jatin De Jesus MD [facility] 2018-02-04 20:48:13 CDT CC: CC: Rachelle Zepeda MD [facility] PROCEDURES Final Result documented in this encounter Visit Diagnoses Not on filedocumented in this encounter Care Teams Public Services Assistant Relationship Specialty Start Date End Date Unknown, Notinfile PCP - General 02/04/18 02/17/18 documented as of this encounter
--- OUTSIDE RECORDS SUMMARY | 2024-03-24 18:56 | XMS_ITS | Encounter Summary ---
Author Organization [facility] Healthcare Address [address] [place] [address] Care Team Providers Care Hemodialysis Technician Name Role Phone Unknown, Notinfile Primary Care Provider Unavail able Unknown, Notinfile Unavailable Unavailable Encounter Details Date Type Department Care Team (Latest Contact Info) Description 02/18/2018 3:38 PM CRYPTOLOGIC TECHNICIAN TECHNICAL - 02/18/2018 3:59 PM [facility] Hospital Encounter [facility] Radiology [address] [place] [address] Francisco Ascencio MD [address] [place] [address] Discharge Disposition: Discharge to home or self [...] this encounter Medications at Time of Discharge acetaminophen 500 mg capsule Take 2 capsules (1,000 mg total) by mouth every 8 (eight) hours as needed for pain. 180 tablet 02/07/2018 03/09/2018 thiamine (VITAMIN B-1) 250 mg tablet Take 1 tablet (250 mg total) by mouth daily. 30 tablet 11 02/07/2018 02/07/2019 chlordiazePOXIDE (LIBRIUM) 25 mg capsule Take 1 [...] Take 1 tablet by mouth daily. 04/29/2019 rivaroxaban (XARELTO) 10 mg tablet Take [...] Procedure Name Priority Date/Time Associated Diagnosis Comments CT HEAD AND CERVICAL SPINE WO CONTRAST ED 02/18/2018 4:14 PM CRYPTOLOGIC TECHNICIAN TECHNICAL documented in this encounter Results * CT Head and Cervical Spine WO Contrast (02/18/2018 4:14 PM CRYPTOLOGIC TECHNICIAN TECHNICAL) Anatomical Region Laterality Modality Head and Neck N/A Computed Tomogra phy 02/18/2018 4:30 PM CRYPTOLOGIC TECHNICIAN TECHNICAL Impressions 02/18/2018 5:35 PM CRYPTOLOGIC TECHNICIAN TECHNICAL Normal noncontrast head CT. No evidence of acute fracture in the cervical spine. Dictated by: Dave Lucero M.D. Electronically signed by: Dave Lennon M.D. Narrative 02/18/2018 5:35 PM CRYPTOLOGIC TECHNICIAN TECHNICAL EXAMINATION: Noncontrast head CT CT of the cervical spine without contrast HISTORY: Trauma. TECHNIQUE: Noncontrast CT of the brain was performed with images acquired from skull base to vertex. Computed tomography of the cervical spine was performed without contrast according to standard protocol. COMPARISON: None available. FINDINGS: Topogram demonstrates no lytic lesions or fractures. There is no acute intracranial hemorrhage. Ventricles are of normal size and morphology. No mass effect or midline shift is present. The li-white matter differentiation is normal. The visualized portions of the orbits are normal. The visualized portions of the mastoids are normal. The visualized portions of the paranasal sinuses are normal. No fractures are identified. The alignment of the cervical spine is normal. There is no acute fracture. Vertebral bodies are normal in height without compression fractures. Intervertebral disk heights are normal. There is no spinal canal stenosis. The craniocervical junction is normal. The facets are normal. The uncovertebral joints are normal without foraminal stenosis. No soft tissue abnormality is identified. Procedure Note Dave Lennon MD PhD - 02/18/2018 EXAMINATION: Noncontrast head CT CT of the cervical spine without contrast HISTORY: Trauma. TECHNIQUE: Noncontrast CT of the brain was performed with images acquired from skull base to vertex. Computed tomography of the cervical spine was performed without contrast according to standard protocol. COMPARISON: None available. FINDINGS: Topogram demonstrates no lytic lesions or fractures. There is no acute intracranial hemorrhage. Ventricles are of normal size and morphology. No mass effect or midline shift is present. The li-white matter differentiation is normal. The visualized portions of the orbits are normal. The visualized portions of the mastoids are normal. The visualized portions of the paranasal sinuses are normal. No fractures are identified. The alignment of the cervical spine is normal. There is no acute fracture. Vertebral bodies are normal in height without compression fractures. Intervertebral disk heights are normal. There is no spinal canal stenosis. The craniocervical junction is normal. The facets are normal. The uncovertebral joints are normal without foraminal stenosis. No soft tissue abnormality is identified. IMPRESSION: Normal noncontrast head CT. No evidence of acute fracture in the cervical spine. Dictated by: Dave Lucero M.D. Electronically signed by: Dave Lennon M.D. Francisco Ascencio MD IMG CT PROCEDURES Final R esult documented in this encounter Visit Diagnoses Not on filedocumented in this encounter Care Teams Hemodialysis Technician Relationship Specialty Start Date End Date Unknown, Notinfile PCP - General 02/18/18 10/24/18 Unknown, Notinfile 02/18/18 03/27/20 documented as of this encounter
--- OUTSIDE RECORDS SUMMARY | 2024-03-24 18:56 | XMS_ITS | Encounter Summary ---
Author Organization [facility] Healthcare Address [facility] [place] [address] Care Team Providers Care Political Science Chair Name Role Phone Unavailable Primary Care Provider Unavailabl e Encounter Details Date Type Department Care Team (Latest Contact Info) Description 01/27/2018 2:08 AM CDT - 01/27/2018 5:29 AM CDT [facility] [facility] [address] [facility] [address] [place] [address] Major depressive disorder, single episode; Cocaine abuse, uncomplicated (CMS/HCC); Essential (primary) hypertension; Anxiety disorder; Personal history of pulmonary embolism; 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 Social History Tobacco Use Types Packs/Day Years Used Date Smoking Tobacco: Never Assessed Comments Unknown Sex and Gender Information Value Date Recorded Sex Assigned at Not on file Legal Sex Female 7:50 PM CDT Gender Identity Female 11/23/2020 10:23 AM CDT Sexual Orientation Straight 11/23/2020 10 :23 AM CDT documented as of this encounter Last Filed Vital Signs Vital Sign Reading Time Taken Comments Blood Pressure 140/91 01/27/2018 2:17 AM CDT Pulse 66 01/27/2018 2:17 AM CDT Temperature 36.7 ??C (98.1 ??F) 01/27/2018 2:17 AM CD T Respiratory Rate - - Oxygen Saturation 99% 01/27/2018 2:17 AM CDT Inhaled Oxygen Concentration - - Weight 145.6 kg (321 lb) 01/27/2018 2:17 AM CDT Height 170.2 cm (5' 7 ) 01/27/2018 2:17 AM CDT Body Mass Index 50.28 01/27/2018 2:17 AM CDT documented in this encounter Plan of Treatment Not on file documented as of this encounter Procedures Procedure Name Priority Date/Time Associated Diagnosis Comments CBC WITH AUTO DIFFERENTIAL Routine 01/27/2018 2:53 AM CDT PROTIME-INR Routine 01/27/2018 2:53 AM CDT TSH Routine 01/27/2018 2:52 AM CDT ETHANOL Routine 01/27/2018 2:52 AM CDT ACETAMINOPHEN LEVEL Routine 01/27/2018 2 :52 AM CDT SALICYLATE LEVEL Routine 01/27/2018 2:52 AM CDT COMPREHENSIVE METABOLIC PANEL Routine 01/27/2018 2:52 AM CDT UA WITH CULTURE REFLEX Routine 8 2:18 AM CDT DRUGS OF ABUSE SCREEN, URINE WITHOUT CONFIRMATION Routine 01/27/2018 2:18 AM CDT documented in this encounter Results * (ABNORMAL) Protime-INR (01/27/2018 2:53 AM CDT) PT 17.3(H) 11.8 - 14.5 SECONDS INR 1.39 Comment: Recommended Therapeutic range for Oral Anticoagulant Therapy No anti-coagulation therapy ? Normal Range: ?0.8-1.4 Anti-coagulation therapy ? Low intensity therapy ?2.0-3.0 ? High intensity therapy ?? 2.5-3.5 Critical Value ? Greater than or equal to 5.0 Patients should be monitored for serious bleeding. ?? 01/27/2018 2:53 AM CDT 01/27/2018 2:56 AM CDT us Tito Donaldson MD LAB BLOOD ORDERABLES Nika perez Result [facility] [employer] HISTORICAL RESULTS * (ABNORMAL) CBC with auto differential (01/27/2018 2:53 AM CDT) WBC 8.2 3.8 - 9.9 X10 3/ul 01/27/2018 3:00 AM CDT [employer] HISTORICAL RESULTS RBC 4.18 3.90 - 5.20 x10 6/ul 01/27/2018 3:00 AM CDT [employer] HISTORICAL RESULTS Hemoglobin 9.0(L) 11.9 - 15.5 g/dL 01/27/2018 3:00 AM T [employer] HISTORICAL RESULTS Hct 30.6(L) 35.6 - 45.5 % 01/27/2018 3:00 AM T [employer] HISTORICAL RESULTS MCV 73.2(L) 81.3 - 96.4 fl 01/27/2018 3:00 AM T [employer] HISTORICAL RESULTS MCH 21.5(L) 27.1 - 33.3 pg 01/27/2018 3:00 AM CDT [employer] HISTORICAL RESULTS MCHC 29.4(L) 32.3 - 35.7 g/dl 01/27/2018 3:00 AM T [employer] HISTORICAL RESULTS RDW 18.6(H) 11.1 - 14.9 % 01/27/2018 3:00 AM CDT [employer] HISTORICAL RESULTS Plt Count 277 150 - 400 x10 3/ul 01/27/2018 3:00 AM T [employer] HISTORICAL RESULTS MPV 9.6 9.1 - 12.3 fl 01/27/2018 3:00 AM T [employer] HISTORICAL RESULTS Neut % 67.5 % Immature Gran % 0.2 % 8 3:00 AM [facility] HISTORICAL RESULTS Lymph % 20.7 % Kimball % 6.7 % Eos % 4.4 % Baso % 0.5 % Absolute Neuts (auto) 5.5 1.7 - 6.5 x10 3/ul Immature Gran # 0.0 0.0 - 0.1 x10 3/ul Absolute Lymphs (auto) 1.7 0.8 - 3.3 x10 3/ul Absolute Monos (auto) 0.6 0.2 - 0.8 x10 3/ul Absolute Eos (auto) 0.4 0.0 - 0.5 x10 3/ul Absolute Basos (auto) 0.0 0.0 - 0.1 x10 3/ul Nucleat RBC Rel Count 0.0 #/100WBC Absolute Nucleated RBC 0.00 0.00 - 0.01 x10 3/ul Absolute Neutrophils 5500 200 - 8000 /ul 01/27/2018 2:53 AM CDT 01/27/2018 2:56 AM CDT us Tito Donaldson MD LAB BLOOD ORDERABLES Nika l Result Performing Organization Address [facility] Co de Phone Number [facility] HISTORICAL RESULTS * TSH (01/27/2018 2:52 AM CDT) TSH 2.26 0.27 - 4.20 uIU/mL 01/27/2018 2:52 AM CDT 01/27/2018 2:56 AM CDT us Tito Donaldson MD LAB BLOOD ORDERABLES Nika l Result Performing Organization Address [facility] Phone Number [facility] HISTORICAL RESULTS * Salicylate level (01/27/2018 2:52 AM CDT) Pathologist [facility] Salicylates < 1 0 - 29 mg/dL 01/27/2018 2:52 AM CDT 01/27/2018 2:56 AM CDT Tito Donaldson MD LAB BLOOD ORDERABLES Nika l Result Performing Organization Address [facility] Phone Number [facility] HISTORICAL RESULTS * Ethanol (01/27/2018 2:52 AM CDT) Pathologist [facility] Ethyl Alcohol 15 mg/dL Comment:% = mg/dL x .001 01/27/2018 2:52 AM CDT 01/27/2018 2:56 AM CDT Tito Donaldson MD LAB BLOOD ORDERABLES Nika l Result Performing Organization Address [facility] de Phone Number [facility] HISTORICAL RESULTS * (ABNORMAL) Comprehensive metabolic panel (01/27/2018 2:52 AM CDT) Pathologist [facility] Sodium 138 135 - 145 mmol/L Potassium 4.2 3.3 - 5.1 mmol/L Chloride 107 96 - 108 mmol/L Carbon Dioxide 22 22 - 32 mmol/L Anion Gap 9 7 - 16 Glucose 89 70 - 100 mg/dL BUN 27(H) 6 - 20 mg/dL Creatinine 1.2(H) 0.5 - 1.1 mg/dL Comment: NOTE: Estimated GFR (Cockroft-Gault) will NOT be calculated unless patient Height and Weight were entered. Also, Kidney Disease Stage (GFR) and Estimated GFR (Cockroft-Gault) will NOT be calculated if Creatinine result is <0.2. Kidney Disease Stage 62 mL/MIN Comment: NOTE; ??The GFR is an [...] or on dialysis @ Est GFR (Cockcroft-G) 86 ml/MIN Comment: Estimated GFR(Cockroft-Gault)is used to calculate patient medication dosage Calcium 8.7 8.6 - 10.0 mg/dL Total Protein 7.7 6.4 - 8.3 g/dL Albumin 3.7 3.5 - 5.2 g/dL Globulin 4.0(H) 2.3 - 3.5 gm/dL Albumin/Globulin Ratio 0.9(L) 1.1 - 1.8 Total Bilirubin 0.2 0.0 - 1.2 mg/dL AST 39(H) 0 - 32 U/L ALT 18 0 - 33 U/L Alkaline Phosphatase 80 35 - 104 U/L 01/27/2018 2:52 AM CDT 01/27/2018 2:56 AM CDT us Tito Donaldson MD LAB BLOOD ORDERABLES Nika l Result [facility] HISTORICAL RESULTS * (ABNORMAL) Acetaminophen level (01/27/2018 2:52 AM CDT) Acetaminophen < 5.0(L) 10.0 - 30.0 ug/mL Comment: Acetaminophen concentrations greater than 200 ug/mL at 4 hours, and/or greater than 100 ug/mL at 8 hours, and/or greater than 50 ug/mL at 12 hours after ingestion have been associated with toxicity. Use of a nomogram is recommended. 01/27/2018 2:52 AM CDT 01/27/2018 2:56 AM CDT us Tito Donaldson MD LAB BLOOD ORDERABLES Nika l Result [facility] HISTORICAL RESULTS * UA with Culture Reflex (01/27/2018 2:18 AM CDT) Ur Collection Type CLEAN CATCH Ur Culture Indicated? C&S NOT INDICATED Urine Color YELLOW YELLOW Urine Clarity CLEAR CLEAR Urine Glucose (UA) NORMAL NORMAL mg/dL Urine Bilirubin NEGATIVE NEGATIVE mg/dl Urine Ketones NEGATIVE NEGATIVE mg/dL Ur Specific [place] 1.020 1.005 - 1.025 Urine Blood NEGATIVE NEGATIVE mg/dl Urine pH 5.0 5.0 - 8.0 Urine Protein NEGATIVE NEGATIVE mg/dL Urine Urobilinogen NORMAL NORMAL mg/dL Urine Nitrite NEGATIVE NEGATIVE Ur Leukocyte Esterase NEGATIVE NEGATIVE Blu/ul Ur Microscopic Review Not Indicated 01/27/2018 2:18 AM CDT 01/27/2018 2:57 AM CDT Narrative [facility] HISTORICAL RESULTS - 01/27/2018 3:05 AM CDT Indication(s) for ordering ? Delirium/malaise/lethargy us Tito Donaldson MD LAB URINE ORDERABLES Nika perez Result [facility] HISTORICAL RESULTS * (ABNORMAL) Drug Screen, Urine (01/27/2018 2:18 AM CDT) Ur Amphetamine Screen NEGATIVE NEGATIVE Comment: Cutoff Limit: ??1000 ng/mL ??Detects MDMA, MDA, d-Amphetamine, d-Methamphetamine, ?MBDB-HCl, MDEA and BDB-HCl Note: ??Positive results from this drug screen are unconfirmed. ??Unconfirmed screening results should not be used for non-medical purposes. Ur Barbiturates Screen NEGATIVE NEGATIVE Comment: Cutoff limit: ??200 ng/mL ??Detects Secobarbitol, Cyclopentobarbital, Aprobarbital, ?Butalbital, Allobarbital, Butabarbital, ?Pentobarbital, Amobarbital and Phenobarbital U Benzodiazepines Scrn NEGATIVE NEGATIVE Comment:Cutoff limit: 300 ng /mL U Cannabinoids Screen NEGATIVE NEGATIVE Comment:Cutoff Limit: 50 ng/ mL U Cocaine Metab Screen POSITIVE(H) NEGATIVE Comment: RESULT CALLED at: 0324 01/27/18 by: [id number] to: [id number] ?? CONFIRMATION on Positive result requested: NO Cutoff limit: ??300 ng/mL Urine Opiates Screen NEGATIVE NEGATIVE Comment: Cutoff Limit: ??300 ng/mL Detects Morphine, Codeine, Ethyl Morphine, ?Diacetylmorphine, 6-Acetylmorphine, Dihydrocodeine, ?Jbijjovw-[id number] and Hydrocodone Ur Oxycodone Screen NEGATIVE NEGATIVE Comment:Cutoff Limit: 100 ng /mL Urine Creatinine/JESUS 117.3 mg/dL Comment:If Creatinine is < 4 0 mg/dL, recollection is suggested. 01/27/2018 2:18 AM CDT 01/27/2018 2:50 AM CDT Narrative [facility] HISTORICAL RESULTS - 01/27/2018 3:11 AM CDT Collected By tb us Tito Donaldson MD LAB URINE ORDERABLES Nika l Result [facility] HISTORICAL RESULTS documented in this encounter Visit Diagnoses Diagnosis Major depressive disorder, single episode Major depressive disorder, single episode, unspecified Cocaine abuse, uncomplicated (CMS/HCC) (HCC) Essential (primary) hypertension Unspecified essential hypertension Anxiety disorder Anxiety state, unspecified Personal history of pulmonary embolism 

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
--- OUTSIDE RECORDS SUMMARY | 2024-03-24 18:56 | XMS_ITS | Encounter Summary ---
Author Organization [facility] Healthcare Address [facility] [place] [address] Care Team Providers Care Drain Technician Name Role Phone Unavailable Primary Care Provider Unavailabl e Encounter Details Date Type Department Care Team (Latest Contact Info) Description 12/30/2017 2:23 PM CDT - 12/30/2017 7:10 PM CDT 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) drug therapy Social History Tobacco Use [...] Sign Reading Time Taken Comments Blood Pressure 149/81 12/30/2017 2:46 PM CDT Pulse 86 12/30/2017 2:46 PM CDT Temperature 37.1 ??C (98.7 ??F) 12/30/2017 2:46 PM CD T Respiratory Rate - - Oxygen Saturation 98% 12/30/2017 2:46 PM CDT Inhaled Oxygen Concentration - - Weight 155.9 kg (343 lb 11.2 oz) 12/30/2017 2:46 PM CDT Height 170.2 cm (5' 7 ) 12/30/2017 2:46 PM CDT Body Mass Index 53.83 12/30/2017 2:46 PM CDT documented in this encounter Plan of Treatment Not on file documented as of this encounter Procedures Procedure Name Priority Date/Time Associated Diagnosis Comments TNI WITH LIPID PANEL Routine 12/30/2017 5:05 PM CDT CBC WITH AUTO DIFFERENTIAL Routine 12/30/2017 5:05 PM CDT APTT Routine 12/30/2017 5:05 PM CDT PROTIME-INR Routine 12/30/2017 5:05 PM CDT COMPREHENSIVE METABOLIC PANEL Routine 12/30/2017 5:05 PM CDT US VEIN DUPLEX LOWER EXTREMITY RIGHT LIMITED Routine 12/30/2017 12:00 AM CDT XR CHEST PA LATERAL 2 VIEWS Routine 12/30/2017 12:00 AM CDT documented in this encounter Results * TNI with LIPID PANEL (12/30/2017 5:05 PM CDT) Troponin I < 0.300 0.000 - 0.300 ng/mL Comment: Reference using [facility] Chemiluminescence ? Negative: Repeat in 4-6 hours as indicated. Triglycerides 140 0 - 149 mg/dL 12/30/2017 5:43 PM CDT [facility] Interventional HISTORICAL RESULTS Comment: National Lipid Association/NCEP Guidelines: ?? Normal ?< 150 mg/dL ?? Borderline high ?? 150-199 mg/dL ?? High ?200-499 mg/dL ?? Very High ? >=500 mg/dL Cholesterol 144 0 - 199 mg/dL Comment: National Lipid Association/NCEP Guidelines: Desirable ? < 200 mg/dL Borderline high: ??200-239 mg/dL High Risk: ?>=240 mg/dL HDL Cholesterol 57 mg/dL 8 5:43 PM T [facility] HISTORICAL RESULTS Comment: Reference Ranges: ? Males: >=40 mg/dL ? Females: >=50 mg/dL LDL Cholesterol, Calc 59 0 - 129 mg/dL Comment: National Lipid Association/NCEP Guidelines: ??Optimal ? < 100 mg/dL ??Near Optimal ?100-129 mg/dL ??Borderline high 130-159 mg/dL ??High ?>=160 mg/dL Cholesterol/HDL Ratio 2.5 Comment: Optimal ??< 3.5:1 High ? > 5:1 12/30/2017 5:05 PM CDT 12/30/2017 5:13 PM CDT us Romy Fung [facility] BLOOD ORDERABLES Final R esult [facility] HISTORICAL RESULTS * (ABNORMAL) Protime-INR (12/30/2017 5:05 PM CDT) PT 15.2(H) 11.8 - 14.5 SECONDS INR 1.18 Comment: Recommended Therapeutic range for Oral Anticoagulant Therapy No anti-coagulation therapy ? Normal Range: ?0.8-1.4 Anti-coagulation therapy ? Low intensity therapy ?2.0-3.0 ? High intensity therapy ?? 2.5-3.5 Critical Value ? Greater than or equal to 5.0 Patients should be monitored for serious bleeding. ?? 12/30/2017 5:05 PM CDT 12/30/2017 5:13 PM CDT Romy Fung [facility] BLOOD ORDERABLES Final R [facility] Performing Organization Address [facility] Co de Phone Number [facility] HISTORICAL RESULTS * aPTT (12/30/2017 5:05 PM CDT) APTT 26 26 - 33 SECONDS 12/30/2017 5:05 PM CDT 12/30/2017 5:13 PM CDT Romy Fung [facility] BLOOD ORDERABLES Final R [facility] Performing Organization Address [facility] de Phone Number [facility] HISTORICAL RESULTS * (ABNORMAL) Comprehensive metabolic panel (12/30/2017 5:05 PM CDT) Sodium 141 135 - 145 mmol/L Potassium 4.3 3.3 - 5.1 mmol/L Chloride 104 96 - 108 mmol/L Carbon Dioxide 25 22 - 32 mmol/L Anion Gap 12 7 - 16 Glucose 86 70 - 100 mg/dL BUN 13 6 - 20 mg/dL Creatinine 0.6 0.5 - 1.1 mg/dL Comment: NOTE: Estimated [...] or on dialysis @ Est GFR (Cockcroft-G) 180 ml/MIN Comment: Estimated GFR(Cockroft-Gault)is used to calculate patient medication dosage Calcium 8.9 8.6 - 10.0 mg/dL Total Protein 8.0 6.4 - 8.3 g/dL Albumin 3.8 3.5 - 5.2 g/dL Globulin 4.2(H) 2.3 - 3.5 gm/dL Albumin/Globulin Ratio 0.9(L) 1.1 - 1.8 Total Bilirubin 0.3 0.0 - 1.2 mg/dL AST 39(H) 0 - 32 U/L Comment: MODERATELY HEMOLYZED: Hemolysis interferes with the above test. ALT 15 0 - 33 U/L Alkaline Phosphatase 94 35 - 104 U/L 12/30/2017 5:05 PM CDT 12/30/2017 5:13 PM CDT Romy Fung [facility] BLOOD ORDERABLES Final R esult [facility] HISTORICAL RESULTS * (ABNORMAL) CBC with auto differential (12/30/2017 5:05 PM CDT) WBC 8.1 3.5 - 10.5 x10 3/ul RBC 3.84 3.76 - 4.80 x10 6/ul Hemoglobin 8.4(L) 11.0 - 15.0 g/dL Hct 29.4(L) 33.0 - 43.0 % MCV 76.6(L) 80.0 - 97.0 fl MCH 21.9(L) 27.0 - 31.2 pg MCHC 28.6(L) 31.8 - 35.4 g/dl RDW 17.5(H) 11.6 - 14.8 % Plt Count 265 150 - 450 X10 3/ul MPV 9.5 7.4 - 10.4 fl Neut % 66.8 37.0 - 85.0 % Immature Gran % 0.1 0.0 - 3.0 % Lymph % 23.0 5.0 - 45.0 % [place] % 7.5 3.0 - 15.0 % Eos % 2.1 0.0 - 7.0 % Baso % 0.5 0.0 - 2.0 % Absolute Neuts (auto) 5.4 1.7 - 8.7 x10 3/ul Immature Gran # 0.0 0.0 - 0.3 x10 3/ul Absolute Lymphs (auto) 1.9 0.2 - 4.6 x10 3/ul Absolute Monos (auto) 0.6 0.1 - 1.5 x10 3/ul Absolute Eos (auto) 0.2 0.0 - 0.7 x10 3/ul Absolute Basos (auto) 0.0 0.0 - 0.2 x10 3/ul Nucleat RBC Rel Count 0.0 0 - 3 #/100WBC Absolute Nucleated RBC 0.00 x10 3/ul Absolute Neutrophils 5400 200 - 8000 /ul 12/30/2017 5:05 PM CDT 12/30/2017 5:13 PM CDT us Romy Fung [facility] BLOOD ORDERABLES Final R esult [facility] HISTORICAL RESULTS * XR Chest Pa Lateral 2 Views (12/30/2017 12:00 AM CDT) Anatomical Region Laterality Modality Body, Chest N/A Radiographic Alexsandra ging 12/30/2017 Impressions 12/30/2017 4:57 PM CDT ??No acute cardiopulmonary abnormality. THIS IS AN ELECTRONICALLY VERIFIED FINAL REPORT 12/30/2017 4:54 PM - Electronically signed by Kaiser Taylor M.D. AG: AG D: ??12/30/2017 4:54 PM T: ??12/30/2017 4:54 PM Report ID: [id number] Reading Location: ??[id number] [EOD] Narrative 12/30/2017 4:57 PM CDT EXAM DESCRIPTION: ??Chest 2 Views REASON FOR STUDY: ??Right lower leg edema x1 day TECHNIQUE: ??Frontal and lateral radiographic views of the chest acquired. COMPARISON: ??None FINDINGS: LUNGS/PLEURA: The lungs are clear without focal consolidation, pulmonary edema, pleural effusion or pneumothorax. HEART/MEDIASTINUM: The heart is at the upper limits of normal in size. ?? Mediastinal contours are normal. HARDWARE/LINES/TUBES: None. BONES: No acute findings. OTHER: No other significant finding. Procedure Note Provider, [place], - 08/23/2020 EXAM DESCRIPTION: Chest 2 Views REASON FOR STUDY: Right lower leg edema x1 day TECHNIQUE: Frontal and lateral radiographic views of the chestacquired. COMPARISON: None FINDINGS: LUNGS/PLEURA: The lungs are clear without focal consolidation, pulmonary edema, pleural effusion or pneumothorax. HEART/MEDIASTINUM: The heart is at the upper limits of normal in size. Mediastinal contours are normal. HARDWARE/LINES/TUBES: None. BONES: No acute findings. OTHER: No other significant finding. IMPRESSION: No acute cardiopulmonary abnormality. THIS IS AN ELECTRONICALLY VERIFIED FINAL REPORT 12/30/2017 4:54 PM - Electronically signed by Kaiser Taylor M.D. AG: CHELSEA Report ID: [id number] Reading Location: [place] [address] [EOD] us Romy Fung [facility] IMG XR PROCEDURES Final Resu lt * US Vein Duplex Lower Extremity Right Limited (12/30/2017 12:00 AM CDT) Anatomical Region Laterality Modality Vascular Right Ultrasound 12/30/2017 Impressions 01/02/2018 11:45 AM CDT ??Negative for deep vein thrombosis, right lower extremity and left common femoral vein. ??Pulsatile flow is noted and can be seen consistent with volume overload. NTS Job: [id number] Dictated By: Kade Mirza MD Dictated For: Kade ??MD Hermes [EOD] Narrative 01/02/2018 11:45 AM CDT DATE OF SERVICE: 12/30/2017 REASON FOR EXAM: ??Edema and pain. FINDINGS: ??Veins throughout the right lower extremity show pulsatile flow. All veins augment. ??All are competent and compressible. ??Pulsatile flow noted in the left femoral vein shows normal flow and compressibility. OVERALL Procedure Note ProviderLawanda MD - 08/23/2020 DATE OF SERVICE: 12/30/2017 REASON FOR EXAM: Edema and pain. FINDINGS: Veins throughout the right lower extremity show pulsatile flow.All veins augment. All are competent and compressible. Pulsatile flownoted in the left femoral vein shows normal flow and compressibility. OVERALL IMPRESSION: Negative for deep vein thrombosis, right lowerextremity and left common femoral vein. Pulsatile flow is noted and canbe seen consistent with volume overload. 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
--- OUTSIDE RECORDS SUMMARY | 2024-03-24 18:56 | XMS_ITS | Encounter Summary ---
Author Organization [facility] Healthcare Address [address] [place] [id number] Care Team Providers Care Java Tech Name Role Phone Unknown, Notinfile Primary Care Provider Unavail able Unknown, Notinfile Unavailable Unavailable Encounter Details Date Type Department Care Team (Latest Contact Info) Description 03/14/2018 5:32 AM TRANSPORTATION MECHANIC - 03/14/2018 12:05 PM TRANSPORTATION MECHANIC Hospital Encounter 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; Other half-way (current) drug therapy Social History Tobacco Use [...] Sign Reading Time Taken Comments Blood Pressure 138/82 03/14/2018 5:41 AM TRANSPORTATION MECHANIC Pulse 94 03/14/2018 5:41 AM TRANSPORTATION MECHANIC Temperature 36.9 ??C (98.4 ??F) 03/14/2018 5:41 AM CS T Respiratory Rate - - Oxygen Saturation 97% 03/14/2018 5:41 AM TRANSPORTATION MECHANIC Inhaled Oxygen Concentration - - Weight 164 kg (361 lb 8.9 oz) 03/14/2018 5:41 AM TRANSPORTATION MECHANIC Height 170.2 cm (5' 7 ) 03/14/2018 5:41 AM TRANSPORTATION MECHANIC Body Mass Index 56.63 03/14/2018 5:41 AM TRANSPORTATION MECHANIC documented in this encounter Medications at Time [...] mouth 2 (two) times a day. 04/29/2019 HYDROcodone-aceta minophen (NORCO) 10-325 mg per tabletIndications :Pain Take 1 tablet by mouth every 6 (six) hours as needed for pain. 04/29/2019 losartan-hydroCHL OROthiazide (HYZAAR) 50-12.5 mg per tablet Take 1 [...] Date/Time Associated Diagnosis Comments TROPONIN I Routine 03/14/2018 9:24 AM TRANSPORTATION MECHANIC PROTIME-INR Routine 03/14/2018 7:02 AM TRANSPORTATION MECHANIC TNI WITH LIPID PANEL Routine 03/14/2018 6:11 AM TRANSPORTATION MECHANIC CBC WITH AUTO DIFFERENTIAL Routine 03/14/2018 6:11 AM TRANSPORTATION MECHANIC ETHANOL Routine 03/14/2018 6:11 AM TRANSPORTATION MECHANIC COMPREHENSIVE METABOLIC PANEL Routine 03/14/2018 6:11 AM TRANSPORTATION MECHANIC CTA CHEST W IV CONTRAST - PE Routine 03/14/2018 12:00 AM TRANSPORTATION MECHANIC XR CHEST 1 VIEW Routine 03/14/2018 12:00 AM TRANSPORTATION MECHANIC documented in this encounter Results * Troponin I (03/14/2018 9:24 AM TRANSPORTATION MECHANIC) Troponin I < 0.300 0.000 - 0.300 ng/mL 03/14/2018 9:56 AM TRANSPORTATION MECHANIC [facility] HISTORICAL RESULTS Comment: Reference using [place] Chemiluminescence ? Negative: Repeat in 4-6 hours as indicated. 03/14/2018 9:24 AM TRANSPORTATION MECHANIC 03/14/2018 9:27 AM TRANSPORTATION MECHANIC us Carson Bledsoe II, MD LAB BLOOD ORDERABLES Nika l Result [facility] HISTORICAL RESULTS * Protime-INR (03/14/2018 7:02 AM TRANSPORTATION MECHANIC) PT 13.4 11.8 - 14.5 SECONDS 03/14/2018 7:22 AM TRANSPORTATION MECHANIC [facility] HISTORICAL RESULTS INR 1.02 03/14/2018 7:22 AM TRANSPORTATION MECHANIC [facility] HISTORICAL RESULTS Comment: Recommended Therapeutic range for Oral Anticoagulant Therapy No anti-coagulation therapy ? Normal Range: ?0.8-1.4 Anti-coagulation therapy ? Low intensity therapy ?2.0-3.0 ? High intensity therapy ?? 2.5-3.5 Critical Value ? Greater than or equal to 5.0 Patients should be monitored for serious bleeding. ?? 03/14/2018 7:02 AM TRANSPORTATION MECHANIC 03/14/2018 7:04 AM TRANSPORTATION MECHANIC Carson Bledsoe II, MD LAB BLOOD ORDERABLES Nika l Result Performing Organization Address [facility] de Phone Number [facility] HISTORICAL RESULTS * Ethanol (03/14/2018 6:11 AM TRANSPORTATION MECHANIC) Pathologist [facility] Ethyl Alcohol 77 mg/dL Comment:% = mg/dL x .001 03/14/2018 6:11 AM TRANSPORTATION MECHANIC 03/14/2018 6:13 AM TRANSPORTATION MECHANIC Bandar Delaney MD LAB BLOOD ORDERABLES Final Resul t Performing Organization Address [facility] de Phone Number [facility] HISTORICAL RESULTS * TNI with LIPID PANEL (03/14/2018 6:11 AM TRANSPORTATION MECHANIC) Pathologist [facility] Troponin I < 0.300 0.000 - 0.300 ng/mL Comment: Reference using [place] Chemiluminescence ? Negative: Repeat in 4-6 hours as indicated. Triglycerides 141 0 - 149 mg/dL Comment: National Lipid Association/NCEP Guidelines: ?? Normal ?< 150 mg/dL ?? Borderline high ?? 150-199 mg/dL ?? High ?200-499 mg/dL ?? Very High ? >=500 mg/dL Cholesterol 130 0 - 199 mg/dL Comment: National Lipid Association/NCEP Guidelines: Desirable ? < 200 mg/dL Borderline high: ??200-239 mg/dL High Risk: ?>=240 mg/dL HDL Cholesterol 68 mg/dL 8 6:48 AM [facility] [employer] HISTORICAL RESULTS Comment: Reference Ranges: ? Males: >=40 mg/dL ? Females: >=50 mg/dL LDL Cholesterol, Calc 34 0 - 129 mg/dL 03/14/2018 6:48 AM [facility] HISTORICAL RESULTS Comment: National Lipid Association/NCEP Guidelines: ??Optimal ? < 100 mg/dL ??Near Optimal ?100-129 mg/dL ??Borderline high 130-159 mg/dL ??High ?>=160 mg/dL Cholesterol/HDL Ratio 1.9 03/14/2018 6:48 AM [facility] [employer] HISTORICAL RESULTS Comment: Optimal ??< 3.5:1 High ? > 5:1 03/14/2018 6:11 AM TRANSPORTATION MECHANIC 03/14/2018 6:13 AM TRANSPORTATION MECHANIC us Bandar Delaney MD LAB BLOOD ORDERABLES Final Resul t [facility] [employer] HISTORICAL RESULTS * Comprehensive metabolic panel (03/14/2018 6:11 AM TRANSPORTATION MECHANIC) Sodium 141 135 - 145 mmol/L 03/14/2018 6:48 AM [facility] [employer] HISTORICAL RESULTS Potassium 4.4 3.3 - 5.1 mmol/L 03/14/2018 6:48 AM [facility] [employer] HISTORICAL RESULTS Chloride 106 96 - 108 mmol/L 03/14/2018 6:48 AM [facility] [employer] HISTORICAL RESULTS Carbon Dioxide 24 22 - 32 mmol/L 03/14/2018 6:48 AM [facility] [employer] HISTORICAL RESULTS Anion Gap 11 7 - 16 03/14/2018 6:48 AM [facility] [employer] HISTORICAL RESULTS Glucose 81 70 - 100 mg/dL 03/14/2018 6:48 AM [facility] HISTORICAL RESULTS BUN 15 6 - 20 mg/dL 03/14/2018 6:48 AM [facility] HISTORICAL RESULTS Creatinine 0.7 0.5 - 1.1 mg/dL 03/14/2018 6:48 AM [facility] HISTORICAL RESULTS Comment: NOTE: Estimated GFR (Cockroft-Gault) will NOT be calculated unless patient Height and Weight were entered. Also, Kidney Disease Stage (GFR) and Estimated GFR (Cockroft-Gault) will NOT be calculated if Creatinine result is <0.2. Kidney Disease Stage > 90 mL/MIN 03/14/2018 6:48 AM [facility] HISTORICAL RESULTS Comment: NOTE; ??The GFR is [...] or on dialysis @ Est GFR (Cockcroft-G) 159 ml/MIN 03/14/2018 6:48 AM [facility] HISTORICAL RESULTS Comment: Estimated GFR(Cockroft-Gault)is used to calculate patient medication dosage Calcium 8.6 8.6 - 10.0 mg/dL 03/14/2018 6:48 AM [facility] HISTORICAL RESULTS Total Protein 7.2 6.4 - 8.3 g/dL 03/14/2018 6:48 AM [facility] HISTORICAL RESULTS Albumin 3.7 3.5 - 5.2 g/dL 03/14/2018 6:48 AM [facility] HISTORICAL RESULTS Globulin 3.5 2.3 - 3.5 gm/dL 03/14/2018 6:48 AM TRANSPORTATION MECHANIC [facility] HISTORICAL RESULTS Albumin/Globulin Ratio 1.1 1.1 - 1.8 03/14/2018 6:48 AM TRANSPORTATION MECHANIC [facility] HISTORICAL RESULTS Total Bilirubin 0.3 0.0 - 1.2 mg/dL 03/14/2018 6:48 AM TRANSPORTATION MECHANIC [facility] HISTORICAL RESULTS AST 21 0 - 32 U/L 03/14/2018 6:48 AM TRANSPORTATION MECHANIC [facility] HISTORICAL RESULTS ALT 12 0 - 33 U/L Alkaline Phosphatase 95 35 - 104 U/L 03/14/2018 6:11 AM TRANSPORTATION MECHANIC 03/14/2018 6:13 AM TRANSPORTATION MECHANIC us Bandar Delaney MD LAB BLOOD ORDERABLES Final Resul t [facility] HISTORICAL RESULTS * (ABNORMAL) CBC with auto differential (03/14/2018 6:11 AM TRANSPORTATION MECHANIC) WBC 8.3 3.8 - 9.9 X10 3/ul RBC 3.83(L) 3.90 - 5.20 x10 6/ul Hemoglobin 8.1(L) 11.9 - 15.5 g/dL Hct 27.9(L) 35.6 - 45.5 % MCV 72.8(L) 81.3 - 96.4 fl MCH 21.1(L) 27.1 - 33.3 pg MCHC 29.0(L) 32.3 - 35.7 g/dl RDW 18.9(H) 11.1 - 14.9 % 03/14/2018 6:22 AM TRANSPORTATION MECHANIC [facility] [employer] HISTORICAL RESULTS Plt Count 260 150 - 400 x10 3/ul 03/14/2018 6:22 AM [facility] H[facility] RES[facility] MPV 9.4 9.1 - 12.3 fl 03/14/2018 6:22 AM TRANSPORTATION MECHANIC [facility] [employer] HISTORICAL RESULTS Neut % 71.9 % 03/14/2018 6:22 AM [facility] HISTORICAL RESULTS Immature Gran % 0.1 % 8 6:22 AM TRANSPORTATION MECHANIC [facility] [employer] HISTORICAL RESULTS Lymph % 18.2 % 03/14/2018 6:22 AM TRANSPORTATION MECHANIC [facility] HISTORICAL RESULTS [place] % 7.1 % 03/14/2018 6:22 AM [facility] HISTORICAL RESULTS Eos % 2.3 % 03/14/2018 6:22 AM TRANSPORTATION MECHANIC [facility] HISTORICAL RESULTS Baso % 0.4 % 03/14/2018 6:22 AM TRANSPORTATION MECHANIC [facility] HISTORICAL RESULTS Absolute Neuts (auto) 6.0 1.7 - 6.5 x10 3/ul 03/14/2018 6:22 AM [employer] [facility] HISTORICAL RESULTS Immature Gran # 0.0 0.0 - 0.1 x10 3/ul 03/14/2018 6:22 AM [facility] [employer] HISTORICAL RESULTS Absolute Lymphs (auto) 1.5 0.8 - 3.3 x10 3/ul 03/14/2018 6:22 AM TRANSPORTATION MECHANIC [facility] HISTORICAL RESULTS Absolute Monos (auto) 0.6 0.2 - 0.8 x10 3/ul 03/14/2018 6:22 AM [employer] [facility] HISTORICAL RESULTS Absolute Eos (auto) 0.2 0.0 - 0.5 x10 3/ul 03/14/2018 6:22 AM [employer] [facility] HISTORICAL RESULTS Absolute Basos (auto) 0.0 0.0 - 0.1 x10 3/ul 03/14/2018 6:22 AM [employer] [facility] HISTORICAL RESULTS Nucleat RBC Rel Count 0.0 #/100WBC 03/14/2018 6:22 AM [employer] [facility] HISTORICAL RESULTS Absolute Nucleated RBC 0.00 0.00 - 0.01 x10 3/ul 03/14/2018 6:22 AM TRANSPORTATION MECHANIC [facility] HISTORICAL RESULTS Absolute Neutrophils 6000 200 - 8000 /ul 03/14/2018 6:22 AM TRANSPORTATION MECHANIC [facility] HISTORICAL RESULTS 03/14/2018 6:11 AM TRANSPORTATION MECHANIC 03/14/2018 6:13 AM TRANSPORTATION MECHANIC us Bandar Delaney MD LAB BLOOD ORDERABLES Final Resul t [facility] HISTORICAL RESULTS * CTA Chest W IV Contrast - PE (03/14/2018 12:00 AM TRANSPORTATION MECHANIC) Anatomical Region Laterality Modality Body N/A Computed Tomogra phy 03/14/2018 Impressions 03/14/2018 7:47 AM TRANSPORTATION MECHANIC ?? 1.No evidence of pulmonary embolism or an acute cardiopulmonary abnormality. ?? Segmental and subsegmental pulmonary embolism cannot be excluded due to respiratory motion artifact. 2.Right lower lobe pulmonary nodule measuring 6 mm, unchanged since January 2018. ??In accordance with the Fleischner Society 2017 guidelines for the management of incidental pulmonary nodules, a chest CT in 6-12 months is recommended to assess for stability. ?? THIS IS AN ELECTRONICALLY VERIFIED FINAL REPORT 03/14/2018 7:44 AM - Electronically signed by Joseph Hemphill M.D. AB D: ??03/14/2018 7:44 AM T: Report ID: [id number] Reading Location: ??[id number] [EOD] Narrative 03/14/2018 7:47 AM TRANSPORTATION MECHANIC EXAM DESCRIPTION: ??CTA Chest W IV Contrast - PE REASON FOR STUDY: ??Chest pain, shortness of breath, and lower extremity swelling today. ??Concern for pulmonary embolism. ??History of deep vein thrombosis, on anticoagulation therapy. TECHNIQUE: ??CT angiogram of the chest performed with intravenous contrast using helical scanning technique with dynamic intravenous contrast injection. Reconstructed coronal and sagittal MPR images reviewed. All images stored on PACS. 3D MIP images rendered on scanning unit and reviewed at time of interpretation. Automated exposure control was used as a dose optimization technique for this examination. CONTRAST TYPE/DOSE: ??50 mL of Optiray 350 contrast were intravenously injected at the right antecubital IV site. COMPARISON: ??CT from January 08, 2018. FINDINGS: VASCULATURE: Examination is suboptimal due to respiratory motion artifact. ?? There is no evidence of pulmonary embolism. ??However, evaluation of the segmental and subsegmental pulmonary arteries is limited due to respiratory motion artifact. ??The thoracic aorta and main pulmonary artery are normal in course and caliber. ??There is mild atherosclerotic calcification of the thoracic aorta. LUNGS: There is no airspace consolidation. ??There is mild bibasilar subsegmental atelectasis. ??There is a 6 mm nodule in the medial right lower lobe (axial image 67 of 146), unchanged since January 2018. ??There is a calcified granuloma in the left lower lobe. ??There are no new or enlarging pulmonary nodules. PLEURA: There is no pleural effusion or pneumothorax. MEDIASTINUM/CHARANJIT: There is no mediastinal or hilar lymphadenopathy. HEART: The heart size is normal. ??There is no pericardial effusion. AXILLA: There is no axillary lymphadenopathy. CHEST WALL: There are no chest wall masses and there is no subcutaneous gas. HARDWARE/LINES/TUBES: None. UPPER ABDOMEN: There are postsurgical changes of the stomach. ??The remainder of the visualized upper abdomen is normal in appearance. MUSCULOSKELETAL: There are no acute or aggressive appearing osseous abnormalities. Procedure Note Provider, MD Lawanda - 08/23/2020 EXAM DESCRIPTION: CTA Chest W IV Contrast - PE REASON FOR STUDY: Chest pain, shortness of breath, and lower extremity swelling today. Concern for pulmonary embolism. History of deep vein thrombosis, on anticoagulation therapy. TECHNIQUE: CT angiogram of the chest performed with intravenous contrast using helical scanning technique with dynamic intravenous contrastinjection. Reconstructed coronal and sagittal MPR images reviewed. All images storedon PACS. 3D MIP images rendered on scanning unit and reviewed at time of interpretation. Automated exposure control was used as a dose optimization technique for this examination. CONTRAST TYPE/DOSE: 50 mL of Optiray 350 contrast were intravenouslyinjected at the right antecubital IV site. COMPARISON: CT from January 08, 2018. FINDINGS: VASCULATURE: Examination is suboptimal due to respiratory motionartifact. There is no evidence of pulmonary embolism. However, evaluation of the segmental and subsegmental pulmonary arteries is limited due torespiratory motion artifact. The thoracic aorta and main pulmonary artery are normalin course and caliber. There is mild atherosclerotic calcification of the thoracic aorta. LUNGS: There is no airspace consolidation. There is mild bibasilar subsegmental atelectasis. There is a 6 mm nodule in the medial rightlower lobe (axial image 67 of 146), unchanged since January 2018. There is a calcified granuloma in the left lower lobe. There are no new or enlarging pulmonary nodules. PLEURA: There is no pleural effusion or pneumothorax. MEDIASTINUM/CHARANJIT: There is no mediastinal or hilar lymphadenopathy. HEART: The heart size is normal. There is no pericardial effusion. AXILLA: There is no axillary lymphadenopathy. CHEST WALL: There are no chest wall masses and there is no subcutaneousgas. HARDWARE/LINES/TUBES: None. UPPER ABDOMEN: There are postsurgical changes of the stomach. Theremainder of the visualized upper abdomen is normal in appearance. MUSCULOSKELETAL: There are no acute or aggressive appearing osseous abnormalities. IMPRESSION: 1.No evidence of pulmonary embolism or an acute cardiopulmonaryabnormality. Segmental and subsegmental pulmonary embolism cannot be excluded due to respiratory motion artifact. 2.Right lower lobe pulmonary nodule measuring 6 mm, unchanged sinceJanuary 2018. In accordance with the Fleischner Society 2017 guidelines for the management of incidental pulmonary nodules, a chest CT in 6-12 months is recommended to assess for stability. THIS IS AN ELECTRONICALLY VERIFIED FINAL REPORT 03/14/2018 7:44 AM - Electronically signed by Joseph Hemphill M.D. AB T: Report ID: [id number] Reading Location: [place] [id number] [EOD] Carson Bledsoe II, MD IMG CT PROCEDURES Final R esult * XR Chest 1 View (03/14/2018 12:00 AM TRANSPORTATION MECHANIC) Anatomical Region Laterality Modality Body, Chest N/A Radiographic Alexsandra ging 03/14/2018 Impressions 03/14/2018 6:11 AM TRANSPORTATION MECHANIC ??Findings concerning for developing infiltrate at the right lower lung medially. ??Follow-up would be helpful. THIS IS AN ELECTRONICALLY VERIFIED FINAL REPORT 03/14/2018 6:07 AM - Electronically signed by Kimmy BLAKE D: ??03/14/2018 6:07 AM T: Report ID: [id number] Reading Location: ??[id number] [EOD] Narrative 03/14/2018 6:11 AM TRANSPORTATION MECHANIC EXAM DESCRIPTION: ??Chest 1 View Portable REASON FOR STUDY: ??SOB with chest tightness since 430 am and chronic leg edema. TECHNIQUE: ??Portable upright AP radiographic view of the chest acquired. COMPARISON: ??01/08/2018 FINDINGS: LUNGS/PLEURA: Airspace opacities suggested at the medial right lower lung. ??No pneumonic consolidation, pleural fluid or pneumothorax. HEART/MEDIASTINUM: Prominent heart size, stable. ??No superior mediastinal widening or definitive pulmonary vascular congestion given technique. HARDWARE/LINES/TUBES: None. BONES: No acute fracture. ??No definite interval change. OTHER: No other significant finding. Procedure Note ProviderLawanda MD - 08/23/2020 EXAM DESCRIPTION: Chest 1 View Portable REASON FOR STUDY: SOB with chest tightness since 430 am and chronic legedema. TECHNIQUE: Portable upright AP radiographic view of the chest acquired. COMPARISON: 01/08/2018 FINDINGS: LUNGS/PLEURA: Airspace opacities suggested at the medial right lower lung.No pneumonic consolidation, pleural fluid or pneumothorax. HEART/MEDIASTINUM: Prominent heart size, stable. No superior mediastinal widening or definitive pulmonary vascular congestion given technique. HARDWARE/LINES/TUBES: None. BONES: No acute fracture. No definite interval change. OTHER: No other significant finding. IMPRESSION: Findings concerning for developing infiltrate at the rightlower lung medially. Follow-up would be helpful. THIS IS AN ELECTRONICALLY VERIFIED FINAL REPORT 03/14/2018 6:07 AM - Electronically signed by Kimmy BLAKE T: Report ID: [id number] Reading Location: [id number] [EOD] Bandar Delaney MD IMG XR PROCEDURES Final Result documented in this encounter Visit Diagnoses Diagnosis Other chest pain Essential (primary) hypertension Unspecified essential hypertension senior living current use of anticoagulant Other half-way (current) drug therapy documented in this encounter Care Teams Java Tech Relationship Specialty Start Date End Date Unknown, Notinfile PCP - General 02/18/18 10/24/18 Unknown, Notinfile 02/18/18 03/27/20 documented as of this encounter
--- OUTSIDE RECORDS SUMMARY | 2024-03-24 18:56 | XMS_ITS | Encounter Summary ---
Author Organization [facility] Address [address] [place] [id number] Care Team Providers Care Water Quality Control Engineer Name Role Phone Unavailable Primary Care Provider Unavailabl e Encounter Details Date Type Department Care Team (Latest Contact Info) Description 01/05/2018 2:27 AM CDT - 01/05/2018 4:45 AM CDT Hospital Encounter [facility] Bob Gee MD [address] [place] [address] [place] [address] Other chest pain; Essential (primary) hypertension; [facility] current use of anticoagulant; Other rn long term care (current) drug therapy; Personal history of pulmonary embolism Social History Tobacco Use Types Packs/Day Years [...] Sign Reading Time Taken Comments Blood Pressure 165/90 01/05/2018 2:32 AM CDT Pulse 70 01/05/2018 2:32 AM CDT Temperature 36.8 ??C (98.2 ??F) 01/05/2018 2:32 AM CD T Respiratory Rate - - Oxygen Saturation 99% 01/05/2018 2:32 AM CDT Inhaled Oxygen Concentration - - Weight 144.9 kg (319 lb 7.2 oz) 01/05/2018 2:32 AM CDT Height 170.2 cm (5' 7 ) 01/05/2018 2:32 AM CDT Body Mass Index 50.03 01/05/2018 2:32 AM CDT documented in this encounter Plan of Treatment Not on file documented as of this encounter Procedures Procedure Name Priority Date/Time Associated Diagnosis Comments XR CHEST 1 VIEW Routine 01/05/2018 3:13 AM CDT TNI WITH LIPID PANEL Routine 01/05/2018 2:51 AM CDT CBC WITH AUTO DIFFERENTIAL Routine 01/05/2018 2:51 AM CDT COMPREHENSIVE METABOLIC PANEL Routine 01/05/2018 2:51 AM CDT documented in this encounter Results * XR Chest 1 View (01/05/2018 3:13 AM CDT) Anatomical Region Laterality Modality Body, Chest N/A Radiographic Alexsandra ging 01/05/2018 3:13 AM CDT Impressions 01/05/2018 3:50 AM CDT ??Mild pulmonary vascular congestion. THIS IS AN ELECTRONICALLY VERIFIED FINAL REPORT 01/05/2018 3:47 AM - Electronically signed by Moshe Stuart M.D. MA: LOREN D: ??01/05/2018 3:47 AM T: ??01/05/2018 3:47 AM Report ID: [id number] Reading Location: ??[id number] [EOD] Narrative 01/05/2018 3:50 AM CDT EXAM DESCRIPTION: ??Chest 1 View Portable REASON FOR STUDY: ??Patient states she having chest pain that radiates down left arm all night.Hx HTN TECHNIQUE: ??Frontal radiographic view of the chest acquired. COMPARISON: ??Chest x-ray December 30, 2017 FINDINGS: LUNGS/PLEURA: No focal consolidation or pneumothorax. No pleural effusion. HEART/MEDIASTINUM: Cardiomegaly and mild pulmonary vascular congestion. HARDWARE/LINES/TUBES: None. BONES: No acute findings. OTHER: No other significant finding. Procedure Note Provider, Lawanda, - 08/23/2020 EXAM DESCRIPTION: Chest 1 View Portable REASON FOR STUDY: Patient states she having chest pain that radiates down left arm all night.Hx HTN TECHNIQUE: Frontal radiographic view of the chest acquired. COMPARISON: Chest x-ray December 30, 2017 FINDINGS: LUNGS/PLEURA: No focal consolidation or pneumothorax. No pleuraleffusion. HEART/MEDIASTINUM: Cardiomegaly and mild pulmonary vascular congestion. HARDWARE/LINES/TUBES: None. BONES: No acute findings. OTHER: No other significant finding. IMPRESSION: Mild pulmonary vascular congestion. THIS IS AN ELECTRONICALLY VERIFIED FINAL REPORT 01/05/2018 3:47 AM - Electronically signed by Moshe Stuart M.D. MA: LOREN Report ID: [id number] Reading Location: [place] [id number] [EOD] Bob Mccall MD IMG XR PROCEDURES Final Re sult * TNI with LIPID PANEL (01/05/2018 2:51 AM CDT) Pathologist [facility] Troponin I < 0.300 0.000 - 0.300 ng/mL 01/05/2018 3:26 AM [facility] [email or web address] HISTORICAL RESULTS Comment: Reference using [employer] Chemiluminescence ? Negative: Repeat in 4-6 hours as indicated. Triglycerides 99 0 - 149 mg/dL 01/05/2018 3:28 AM T [email or web address] HISTORICAL RESULTS Comment: National Lipid Association/NCEP Guidelines: ?? Normal ?< 150 mg/dL ?? Borderline high ?? 150-199 mg/dL ?? High ?200-499 mg/dL ?? Very High ? >=500 mg/dL Cholesterol 170 0 - 199 mg/dL 01/05/2018 3:28 AM T [facility] [employer] HISTORICAL RESULTS Comment: National Lipid Association/NCEP Guidelines: Desirable ? < 200 mg/dL Borderline high: ??200-239 mg/dL High Risk: ?>=240 mg/dL HDL Cholesterol 62 mg/dL 8 3:28 AM T [facility] HISTORICAL RESULTS Comment: Reference Ranges: ? Males: >=40 mg/dL ? Females: >=50 mg/dL LDL Cholesterol, Calc 88 0 - 129 mg/dL Comment: National Lipid Association/NCEP Guidelines: ??Optimal ? < 100 mg/dL ??Near Optimal ?100-129 mg/dL ??Borderline high 130-159 mg/dL ??High ?>=160 mg/dL Cholesterol/HDL Ratio 2.7 01/05/2018 3:[address] [facility] HISTORICAL RESULTS Comment: Optimal ??< 3.5:1 High ? > 5:1 01/05/2018 2:51 AM CDT 01/05/2018 2:55 AM CDT us Bob Mccall MD LAB BLOOD ORDERABLES Final Result [facility] HISTORICAL RESULTS * (ABNORMAL) Comprehensive metabolic panel (01/05/2018 2:51 AM CDT) Sodium 145 135 - 145 mmol/L Potassium 3.9 3.3 - 5.1 mmol/L 01/05/2018 3:[address] [facility] HISTORICAL RESULTS Chloride 100 96 - 108 mmol/L 01/05/2018 3:[address] [facility] HISTORICAL RESULTS Carbon Dioxide 25 22 - 32 mmol/L 01/05/2018 3:[address] [facility] HISTORICAL RESULTS Anion Gap 20(H) 7 - 16 01/05/2018 3:[address] [facility] HISTORICAL RESULTS Glucose 67(L) 70 - 100 mg/dL 01/05/2018 3:[address] [facility] HISTORICAL RESULTS BUN 13 6 - 20 mg/dL 01/05/2018 3:[address] [facility] HISTORICAL RESULTS Creatinine 0.7 0.5 - 1.1 mg/dL 01/05/2018 3:[address] [facility] HISTORICAL RESULTS Comment: NOTE: Estimated GFR (Cockroft-Gault) will NOT be calculated unless patient Height and Weight were entered. Also, Kidney Disease Stage (GFR) and Estimated GFR (Cockroft-Gault) will NOT be calculated if Creatinine result is <0.2. Kidney Disease Stage > 90 mL/MIN 01/05/2018 3:[address] [facility] HISTORICAL RESULTS Comment: NOTE; ??The GFR is [...] or on dialysis @ Est GFR (Cockcroft-G) 147 ml/MIN 01/05/2018 3:[address] [facility] HISTORICAL RESULTS Comment: Estimated GFR(Cockroft-Gault)is used to calculate patient medication dosage Calcium 9.1 8.6 - 10.0 mg/dL 01/05/2018 3:[address] [facility] HISTORICAL RESULTS Total Protein 8.2 6.4 - 8.3 g/dL 01/05/2018 3:[address] [facility] HISTORICAL RESULTS Albumin 4.1 3.5 - 5.2 g/dL Globulin 4.1(H) 2.3 - 3.5 gm/dL Albumin/Globulin Ratio 1.0(L) 1.1 - 1.8 Total Bilirubin 0.4 0.0 - 1.2 mg/dL AST 28 0 - 32 U/L ALT 13 0 - 33 U/L 01/05/2018 3:[address] [facility] HISTORICAL RESULTS Alkaline Phosphatase 121(H) 35 - 104 U/L 01/05/2018 3:[address] [facility] HISTORICAL RESULTS 01/05/2018 2:51 AM CDT 01/05/2018 2:55 AM CDT us Bob Mccall MD LAB BLOOD ORDERABLES Final Result [facility] HISTORICAL RESULTS * (ABNORMAL) CBC with auto differential (01/05/2018 2:51 AM CDT) WBC 7.7 3.5 - 10.5 x10 3/ul 01/05/2018 3:[address] [facility] HISTORICAL RESULTS RBC 4.10 3.76 - 4.80 x10 6/ul 01/05/2018 3:[address] [facility] HISTORICAL RESULTS Hemoglobin 9.1(L) 11.0 - 15.0 g/dL 01/05/2018 3:[address] [facility] HISTORICAL RESULTS Hct 30.9(L) 33.0 - 43.0 % 01/05/2018 3:[address] [facility] HISTORICAL RESULTS MCV 75.4(L) 80.0 - 97.0 fl MCH 22.2(L) 27.0 - 31.2 pg 01/05/2018 3:[address] [facility] HISTORICAL RESULTS MCHC 29.4(L) 31.8 - 35.4 g/dl 01/05/2018 3:[address] [facility] HISTORICAL RESULTS RDW 17.4(H) 11.6 - 14.8 % 01/05/2018 3:[address] [facility] HISTORICAL RESULTS Plt Count 318 150 - 450 X10 3/ul 01/05/2018 3:[address] [facility] HISTORICAL RESULTS MPV 9.4 7.4 - 10.4 fl 01/05/2018 3:[address] [facility] HISTORICAL RESULTS Neut % 59.6 37.0 - 85.0 % 01/05/2018 3:[address] [facility] HISTORICAL RESULTS Immature Gran % 0.3 0.0 - 3.0 % 01/05/2018 3:[address] [facility] HISTORICAL RESULTS Lymph % 30.7 5.0 - 45.0 % 01/05/2018 3:[address] [facility] HISTORICAL RESULTS [place] % 7.6 3.0 - 15.0 % 01/05/2018 3:[address] [facility] HISTORICAL RESULTS Eos % 1.3 0.0 - 7.0 % 01/05/2018 3:[address] [facility] HISTORICAL RESULTS Baso % 0.5 0.0 - 2.0 % 01/05/2018 3:[address] [facility] HISTORICAL RESULTS Absolute Neuts (auto) 4.6 1.7 - 8.7 x10 3/ul 01/05/2018 3:[address] [facility] HISTORICAL RESULTS Immature Gran # 0.0 0.0 - 0.3 x10 3/ul 01/05/2018 3:[address] [facility] HISTORICAL RESULTS Absolute Lymphs (auto) 2.4 0.2 - 4.6 x10 3/ul 01/05/2018 3:[address] [facility] HISTORICAL RESULTS Absolute Monos (auto) 0.6 0.1 - 1.5 x10 3/ul 01/05/2018 3:[address] 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
--- OUTSIDE RECORDS SUMMARY | 2024-03-24 18:56 | XMS_ITS | Encounter Summary ---
Author Organization [facility] Healthcare Address [facility] [place] [address] Care Team Providers Care Lang Path Therapist Name Role Phone Unavailable Primary Care Provider Unavailabl e Encounter Details Date Type Department Care Team (Latest Contact Info) Description 02/03/2018 10:55 PM CDT - 02/03/2018 11:59 PM CDT Hospital Encounter [facility] Radiology [address] [place] [address] Discharge Disposition: Discharge to home or self [...] mouth daily. 30 tablet 11 02/07/2018 02/07/2019 ALPRAZolam (XANAX) 0.5 mg tablet Take 0.5 mg by mouth nightly as needed for anxiety. 02/07/2018 chlordiazePOXIDE (LIBRIUM) 25 mg capsule Take 1 capsule (25 mg total) by mouth every 6 (six) hours. For 2 doses, then twice a day for two doses, then once a day. 5 capsule 02/07/2018 02/07/2018 chlordiazePOXIDE (LIBRIUM) 25 mg capsule Take 1 [...] Take 40 mg by mouth daily. 03/28/2020 losartan-hydroCH LOROthiazide (HYZAAR) 50-12.5 mg per tablet Take 1 tablet by mouth daily. 04/29/2019 RIVAROXABAN 15 MG (42)-20 MG (9) TABLETS IN A STARTER PACK Take 1 Package by mouth as directed. Take 15 mg BID with food for 21 days, then take 20 mg daily 1 each 02/07/2018 05/02/2019 warfarin (COUMADIN) 5 mg tabletIndication s:Venous Thrombosis Take 5 mg by mouth daily. 02/07/2018 documented as of this encounter Discharge Disposition Disposition Code Departure Means Destination Discharge to home or self care documented in this encounter Plan of Treatment Not on file documented as of this encounter Procedures Procedure Name Priority Date/Time Associated Diagnosis Comments XR CHEST PA LATERAL 2 VIEWS ED 02/03/2018 11:06 PM CDT documented in this encounter Results * XR Chest Pa Lateral 2 Vw (02/03/2018 11:06 PM CDT) Anatomical Region Laterality Modality Body, Chest N/A Computed Radiogr aphy 02/04/2018 1:06 AM CDT Impressions 02/04/2018 11:10 AM CDT Two views of the chest are submitted for interpretation. ?? No pneumothorax, pleural effusion or focal consolidation. ??There is mild left basilar atelectasis. Heart size is within normal limits. Dictated by: Tiburcio Lock M.D. , PHD Electronically signed by: Keshawn Mandujano M.D. Narrative 02/04/2018 11:10 AM CDT EXAMINATION: ??XR CHEST PA LATERAL 2 VIEWS HISTORY: ??Left-sided chest pain extending to the left arm COMPARISON: ??None Procedure Note Keshawn Mandujano MD - 02/04/2018 EXAMINATION: XR CHEST PA LATERAL 2 VIEWS HISTORY: Left-sided chest pain extending to the left arm COMPARISON: None IMPRESSION: Two views of the chest are submitted for interpretation. No pneumothorax, pleural effusion or focal consolidation. There is mild left basilar atelectasis. Heart size is within normal limits. Dictated by: Tiburcio Lock M.D. , PHD Electronically signed by: Keshawn Mandujano M.D. Baljeet Torres MD IMG XR PROCEDURE S Final Result documented in this encounter Visit Diagnoses Not on filedocumented in this encounter
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
--- OUTSIDE RECORDS SUMMARY | 2024-03-24 18:56 | XMS_ITS | Encounter Summary ---
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 Role Phone Unavailable Primary Care Provider Unavailabl e Encounter Details Date Type Department Care Team (Latest Contact Info) Description 01/08/2018 3:05 AM CDT - 01/08/2018 9:08 AM CDT Hospital Encounter [facility], Kwabena Shahid, DO [address] [place] [address] Palpitations; Chest pain; Acute kidney failure (CMS/HCC); Lymphedema, not elsewhere classified; Essential (primary) hypertension; Personal history of pulmonary embolism; Personal history of other venous thrombosis and embolism; correction current use of anticoagulant; Other prison (current) drug therapy Social History Tobacco Use [...] Sign Reading Time Taken Comments Blood Pressure 114/59 01/08/2018 3:08 AM CDT Pulse 79 01/08/2018 3:08 AM CDT Temperature 37 ??C (98.6 ??F) 01/08/2018 3:08 AM CDT Respiratory Rate - - Oxygen Saturation 98% 01/08/2018 3:08 AM CDT Inhaled Oxygen Concentration - - Weight 145.7 kg (321 lb 3.4 oz) 01/08/2018 3:08 AM CDT Height 170.2 cm (5' 7 ) 01/08/2018 3:08 AM CDT Body Mass Index 50.31 01/08/2018 3:08 AM CDT documented in this encounter Plan of Treatment Not on file documented as of this encounter Procedures Procedure Name Priority Date/Time Associated Diagnosis Comments TROPONIN I Routine 01/08/2018 6:11 AM CDT BASIC METABOLIC PANEL Routine 01/08/2018 6:11 AM CDT TNI WITH LIPID PANEL Routine 01/08/2018 3:22 AM CDT CBC WITH AUTO DIFFERENTIAL Routine 01/08/2018 3:22 AM CDT APTT Routine 01/08/2018 3:22 AM CDT PROTIME-INR Routine 01/08/2018 3:22 AM CDT D-DIMER, QUANTITATIVE Routine 01/08/2018 3:22 AM CDT COMPREHENSIVE METABOLIC PANEL Routine 01/08/2018 3:22 AM CDT CTA CHEST W IV CONTRAST - PE Routine 01/08/2018 12:00 AM CDT XR CHEST 1 VIEW Routine 01/08/2018 12:00 AM CDT documented in this encounter Results * (ABNORMAL) Basic metabolic panel (01/08/2018 6:11 AM CDT) Sodium 138 135 - 145 mmol/L Potassium 4.9 3.3 - 5.1 mmol/L Chloride 99 96 - 108 mmol/L Carbon Dioxide 28 22 - 32 mmol/L Anion Gap 11 7 - 16 Glucose 91 70 - 100 mg/dL BUN 24(H) 6 - 20 mg/dL Creatinine 1.6(H) 0.5 - 1.1 mg/dL Comment: NOTE: Estimated GFR (Cockroft-Gault) will NOT be calculated unless patient Height and Weight were entered. Also, Kidney Disease Stage (GFR) and Estimated GFR (Cockroft-Gault) will NOT be calculated if Creatinine result is <0.2. Kidney Disease Stage 44 mL/MIN Comment: NOTE; ??The GFR is an [...] or on dialysis @ Est GFR (Cockcroft-G) 65 ml/MIN Comment: Estimated GFR(Cockroft-Gault)is used to calculate patient medication dosage Calcium 8.7 8.6 - 10.0 mg/dL 01/08/2018 6:11 AM CDT 01/08/2018 6:17 AM CDT Phil Moreno LAB BLOOD ORDERABLES Fi nal Result Performing Organization Address [facility] [place] de Phone Number [facility] HISTORICAL RESULTS * Troponin I (01/08/2018 6:11 AM CDT) Troponin I < 0.300 0.000 - 0.300 ng/mL Comment: Reference using CLOVER Chemiluminescence ? Negative: Repeat in 4-6 hours as indicated. 01/08/2018 6:11 AM CDT 01/08/2018 6:17 AM CDT Phil Moreno LAB BLOOD ORDERABLES Fi nal Result Performing Organization Address [facility] [place] de Phone Number [facility] HISTORICAL RESULTS * (ABNORMAL) D-dimer, quantitative (01/08/2018 3:22 AM CDT) D-Dimer, Quantitative 6.77(H) 0.00 - 0.50 FEUug/ml Comment: Studies indicate that a D-Dimer level of <0.50 FEUug/ml has a >95% negative predictive value for DVT,DIC,PE and other embolus conditions. ??Levels >0.50 FEUug/ml may be present in a wide variety of conditions and should not be considered diagnostic of any disease state. 01/08/2018 3:22 AM CDT 01/08/2018 3:25 AM CDT Phil Moreno LAB BLOOD ORDERABLES Fi nal Result [facility] HISTORICAL RESULTS * TNI with LIPID PANEL (01/08/2018 3:22 AM CDT) Troponin I < 0.300 0.000 - 0.300 ng/mL 01/08/2018 3:45 AM [facility] Comment: Reference using CLOVER Chemiluminescence ? Negative: Repeat in 4-6 hours as indicated. Triglycerides 111 0 - 149 mg/dL 01/08/2018 3:50 AM [facility] HISTORICAL RESULTS Comment: National Lipid Association/NCEP Guidelines: ?? Normal ?< 150 mg/dL ?? Borderline high ?? 150-199 mg/dL ?? High ?200-499 mg/dL ?? Very High ? >=500 mg/dL Cholesterol 163 0 - 199 mg/dL 01/08/2018 3:50 AM [facility] Comment: National Lipid Association/NCEP Guidelines: Desirable ? < 200 mg/dL Borderline high: ??200-239 mg/dL High Risk: ?>=240 mg/dL HDL Cholesterol 72 mg/dL 8 3:50 AM [facility] HISTORICAL RESULTS Comment: Reference Ranges: ? Males: >=40 mg/dL ? Females: >=50 mg/dL LDL Cholesterol, Calc 69 0 - 129 mg/dL 01/08/2018 3:50 AM [facility] HISTORICAL RESULTS Comment: National Lipid Association/NCEP Guidelines: ??Optimal ? < 100 mg/dL ??Near Optimal ?100-129 mg/dL ??Borderline high 130-159 mg/dL ??High ?>=160 mg/dL Cholesterol/HDL Ratio 2.3 01/08/2018 3:50 AM [facility] HISTORICAL RESULTS Comment: Optimal ??< 3.5:1 High ? > 5:1 01/08/2018 3:22 AM CDT 01/08/2018 3:25 AM CDT Phil Moreno LAB BLOOD ORDERABLES Fi nal Result Performing Organization Address [facility] [place] de Phone Number [facility] HISTORICAL RESULTS * (ABNORMAL) Protime-INR (01/08/2018 3:22 AM CDT) PT 39.5(H) 11.8 - 14.5 SECONDS INR 3.81 Comment: Recommended Therapeutic range for Oral Anticoagulant Therapy No anti-coagulation therapy ? Normal Range: ?0.8-1.4 Anti-coagulation therapy ? Low intensity therapy ?2.0-3.0 ? High intensity therapy ?? 2.5-3.5 Critical Value ? Greater than or equal to 5.0 Patients should be monitored for serious bleeding. ?? 01/08/2018 3:22 AM CDT 01/08/2018 3:25 AM CDT Phil Moreno LAB BLOOD ORDERABLES Fi nal Result Performing Organization Address [facility] [place] de Phone Number [facility] HISTORICAL RESULTS * (ABNORMAL) aPTT (01/08/2018 3:22 AM CDT) APTT 59(H) 26 - 33 SECONDS 01/08/2018 3:22 AM CDT 01/08/2018 3:25 AM CDT Phil Moreno LAB BLOOD ORDERABLES Fi nal Result Performing Organization Address [facility] Co de Phone Number [facility] HISTORICAL RESULTS * (ABNORMAL) Comprehensive metabolic panel (01/08/2018 3:22 AM CDT) [facility] Sodium 137 135 - 145 mmol/L Potassium 4.8 3.3 - 5.1 mmol/L Chloride 97 96 - 108 mmol/L Carbon Dioxide 26 22 - 32 mmol/L Anion Gap 14 7 - 16 Glucose 67(L) 70 - 100 mg/dL BUN 24(H) 6 - 20 mg/dL Creatinine 1.8(H) 0.5 - 1.1 mg/dL Comment: NOTE: Estimated GFR (Cockroft-Gault) will NOT be calculated unless patient Height and Weight were entered. Also, Kidney Disease Stage (GFR) and Estimated GFR (Cockroft-Gault) will NOT be calculated if Creatinine result is <0.2. Kidney Disease Stage 39 mL/MIN Comment: NOTE; ??The GFR is an [...] or on dialysis @ Est GFR (Cockcroft-G) 57 ml/MIN Comment: Estimated GFR(Cockroft-Gault)is used to calculate patient medication dosage Calcium 9.2 8.6 - 10.0 mg/dL Total Protein 8.1 6.4 - 8.3 g/dL Albumin 4.0 3.5 - 5.2 g/dL Globulin 4.1(H) 2.3 - 3.5 gm/dL Albumin/Globulin Ratio 1.0(L) 1.1 - 1.8 Total Bilirubin 0.6 0.0 - 1.2 mg/dL AST 40(H) 0 - 32 U/L ALT 15 0 - 33 U/L Alkaline Phosphatase 109(H) 35 - 104 U/L 01/08/2018 3:22 AM CDT 01/08/2018 3:25 AM CDT us Phil Moreno LAB BLOOD ORDERABLES Fi nal Result [facility] HISTORICAL RESULTS * (ABNORMAL) CBC with auto differential (01/08/2018 3:22 AM CDT) [facility] WBC 7.9 3.8 - 9.9 X10 3/ul 01/08/2018 3:27 AM CDT [facility] HISTORICAL RESULTS RBC 4.23 3.90 - 5.20 x10 6/ul 01/08/2018 3:27 AM CDT [facility] H[facility] Hemoglobin 9.1(L) 11.9 - 15.5 g/dL 01/08/2018 3:27 AM CDT [facility] HIST[facility]ICAL RESULTS Hct 31.8(L) 35.6 - 45.5 % 01/08/2018 3:27 AM CDT [facility] HISTORICAL RESULTS MCV 75.2(L) 81.3 - 96.4 fl 01/08/2018 3:27 AM CDT [facility] HISTORICAL RESULTS MCH 21.5(L) 27.1 - 33.3 pg 01/08/2018 3:27 AM CDT [facility] HISTORICAL RESULTS MCHC 28.6(L) 32.3 - 35.7 g/dl 01/08/2018 3:27 AM T [facility] HISTORICAL RESULTS RDW 17.5(H) 11.1 - 14.9 % 01/08/2018 3:27 AM CDT [facility] HISTORICAL RESULTS Plt Count 295 150 - 400 x10 3/ul 01/08/2018 3:27 AM T [facility] HISTORICAL RESULTS MPV 9.4 9.1 - 12.3 fl 01/08/2018 3:27 AM T [facility] HISTORICAL RESULTS Neut % 63.8 % 01/08/2018 3:27 AM T [facility] HISTORICAL RESULTS Immature Gran % 0.1 % 8 3:27 AM CDT [facility] HISTORICAL RESULTS Lymph % 24.7 % 01/08/2018 3:27 AM CDT [facility] HISTORICAL RESULTS Loup % 7.6 % 01/08/2018 3:27 AM CDT [facility] HISTORICAL RESULTS Eos % 3.5 % 01/08/2018 3:27 AM CDT [facility] HISTORICAL RESULTS Baso % 0.3 % 01/08/2018 3:27 AM CDT [facility] HISTORICAL RESULTS Absolute Neuts (auto) 5.1 1.7 - 6.5 x10 3/ul 01/08/2018 3:27 AM CDT [facility] HISTORICAL RESULTS Immature Gran # 0.0 0.0 - 0.1 x10 3/ul Absolute Lymphs (auto) 2.0 0.8 - 3.3 x10 3/ul Absolute Monos (auto) 0.6 0.2 - 0.8 x10 3/ul Absolute Eos (auto) 0.3 0.0 - 0.5 x10 3/ul Absolute Basos (auto) 0.0 0.0 - 0.1 x10 3/ul Nucleat RBC Rel Count 0.0 #/100WBC Absolute Nucleated RBC 0.00 0.00 - 0.01 x10 3/ul Absolute Neutrophils 5100 200 - 8000 /ul 01/08/2018 3:22 AM CDT 01/08/2018 3:25 AM CDT us Phil Moreno LAB BLOOD ORDERABLES Fi nal Result [facility] HISTORICAL RESULTS * CTA Chest W IV Contrast - PE (01/08/2018 12:00 AM CDT) Anatomical Region Laterality Modality Body N/A Computed Tomogra phy 01/08/2018 Impressions 01/08/2018 8:42 AM CDT ?? 1.Evaluation for pulmonary embolism is markedly limited secondary to suboptimal contrast timing. ??No large central pulmonary embolus is seen. 2.6 mm right lower lobe pulmonary nodule. ??Recommend follow-up CT in 6-12 months as per Fleischner guidelines. Recent guidelines by the Fleischner Society (Radiology 306945,2017) divides patient into low vs. high risk (for example, patients who smoke are considered high risk) and provides followup recommendations as follows: SOLITARY PULMONARY NODULE: Patients considered LOW RISK for lung cancer and a solitary nodule equal to or larger than 6 mm or equal to or less than 8 mm in diameter require follow-up CT at 6-12 months, then consider CT at 18-24 months. ??In patients at HIGHER RISK require follow-up CT at 6-12 months, then CT at 18-24 months. ?? MULTIPLE PULMONARY NODULES: Patients considered LOW RISK for lung cancer and multiple nodules equal to or larger than 6 mm or equal to or less than 8 mm in diameter require follow-up CT at 3-6 months, then consider CT at 18-24 months. In patients at HIGHER RISK, for example smokers, require follow-up CT at 3-6 months, then CT at 18-24 months. Note: These recommendations do not apply to lung cancer screening, patients with immunosuppression, or patients with known primary cancer. http://pubs.rsna.org/doi/pdf/10.1148/radiol.6095022187 THIS IS AN ELECTRONICALLY VERIFIED FINAL REPORT 01/08/2018 8:38 AM - Electronically signed by Kaiser Taylor M.D. AG: CHELSEA D: ??01/08/2018 8:38 AM T: ??01/08/2018 8:38 AM Report ID: [id number] Reading Location: ??[id number] [EOD] Narrative 01/08/2018 8:42 AM CDT EXAM DESCRIPTION: ??CTA Chest W IV Contrast - PE REASON FOR STUDY: ??Chest pain and shortness of breath TECHNIQUE: ??CT angiogram of the chest performed with intravenous contrast using helical scanning technique with dynamic intravenous contrast injection. Reconstructed coronal and sagittal MPR images reviewed. All images stored on PACS. 3D MIP images rendered on scanning unit and reviewed at time of interpretation. Automated exposure control was used as a dose optimization technique for this examination. CONTRAST TYPE/DOSE: ??80 mL of Optiray 350 contrast were intravenously injected at the right antecubital fossa. COMPARISON: ??None FINDINGS: VASCULATURE: Evaluation for pulmonary embolism is limited by suboptimal contrast timing. ??No gross central pulmonary embolism is seen. LUNGS: The lung parenchymal windows demonstrate mild bibasilar atelectasis. ?? Mild focal ground-glass is seen abutting the right major fissure, most consistent with atelectasis as well. ??6.3 mm nodule is seen within the medial right lower lobe (image 62). ??Calcified granuloma is seen within the left lung base. PLEURA: No effusion. No pneumothorax. MEDIASTINUM/CHARANJIT: Calcified subcarinal lymph nodes are seen consistent with old healed granulomatous disease. HEART: Heart size is normal with no pericardial effusion. AXILLA: No adenopathy. CHEST WALL: No masses. ??No subcutaneous air. HARDWARE/LINES/TUBES: None. UPPER ABDOMEN: Partially imaged postoperative changes from gastric bypass. MUSCULOSKELETAL: No significant abnormality. OTHER: No significant abnormality. Procedure Note Provider, MD Lawanda - 08/23/2020 EXAM DESCRIPTION: CTA Chest W IV Contrast - PE REASON FOR STUDY: Chest pain and shortness of breath x1 day TECHNIQUE: CT angiogram of the chest performed with intravenous contrast using helical scanning technique with dynamic intravenous contrastinjection. Reconstructed coronal and sagittal MPR images reviewed. All images storedon PACS. 3D MIP images rendered on scanning unit and reviewed at time of interpretation. Automated exposure control was used as a dose optimization technique for this examination. CONTRAST TYPE/DOSE: 80 mL of Optiray 350 contrast were intravenouslyinjected at the right antecubital fossa. COMPARISON: None FINDINGS: VASCULATURE: Evaluation for pulmonary embolism is limited by suboptimal contrast timing. No gross central pulmonary embolism is seen. LUNGS: The lung parenchymal windows demonstrate mild bibasilaratelectasis. Mild focal ground-glass is seen abutting the right major fissure, most consistent with atelectasis as well. 6.3 mm nodule is seen within themedial right lower lobe (image 62). Calcified granuloma is seen within the leftlung base. PLEURA: No effusion. No pneumothorax. MEDIASTINUM/CHARANJIT: Calcified subcarinal lymph nodes are seen consistentwith old healed granulomatous disease. HEART: Heart size is normal with no pericardial effusion. AXILLA: No adenopathy. CHEST WALL: No masses. No subcutaneous air. HARDWARE/LINES/TUBES: None. UPPER ABDOMEN: Partially imaged postoperative changes from gastricbypass. MUSCULOSKELETAL: No significant abnormality. OTHER: No significant abnormality. IMPRESSION: 1.Evaluation for pulmonary embolism is markedly limited secondary to suboptimal contrast timing. No large central pulmonary embolus is seen. 2.6 mm right lower lobe pulmonary nodule. Recommend follow-up CT in 6-12 months as per Fleischner guidelines. Recent guidelines by the Fleischner Society (Radiology 674547,2017)divides patient into low vs. high risk (for example, patients who smoke areconsidered high risk) and provides followup recommendations as follows: SOLITARY PULMONARY NODULE: Patients considered LOW RISK for lung cancerand a solitary nodule equal to or larger than 6 mm or equal to or less than 8 mmin diameter require follow-up CT at 6-12 months, then consider CT at 18-24 months. In patients at HIGHER RISK require follow-up CT at 6-12 months,then CT at 18-24 months. MULTIPLE PULMONARY NODULES: Patients considered LOW RISK for lung cancerand multiple nodules equal to or larger than 6 mm or equal to or less than 8mm in diameter require follow-up CT at 3-6 months, then consider CT at 18-24months. In patients at HIGHER RISK, for example smokers, require follow-up CT at3-6 months, then CT at 18-24 months. Note: These recommendations do not apply to lung cancer screening,patients with immunosuppression, or patients with known primary cancer. http://pubs.rsna.org/doi/pdf/10.1148/radiol.8501119657 THIS IS AN ELECTRONICALLY VERIFIED FINAL REPORT 01/08/2018 8:38 AM - Electronically signed by Kaiser Taylor M.D. AG: CHELSEA Report ID: [id number] Reading Location: [place] [address] [EOD] [facility] DO IMG CT PROCEDURES Nika l Result * XR Chest 1 View (01/08/2018 12:00 AM CDT) Anatomical Region Laterality Modality Body, Chest N/A Radiographic Alexsandra ging 01/08/2018 Impressions 01/08/2018 3:45 AM CDT ??No acute cardiopulmonary disease. THIS IS AN ELECTRONICALLY VERIFIED FINAL REPORT 01/08/2018 3:41 AM - Electronically signed by Moshe Matti Stuart M.D. MA: LOREN D: ??01/08/2018 3:41 AM T: ??01/08/2018 3:41 AM Report ID: [id number] Reading Location: ??[id number] [EOD] Narrative 01/08/2018 3:45 AM CDT EXAM DESCRIPTION: ??Chest 1 View Portable REASON FOR STUDY: ??shortness of breath x 5 hrs TECHNIQUE: ??Frontal radiographic view of the chest acquired. COMPARISON: ??Chest x-ray January 05, 2018 FINDINGS: LUNGS/PLEURA: No focal consolidation or pneumothorax. No pleural effusion. HEART/MEDIASTINUM: Heart size is normal. Normal mediastinal and hilar contours. HARDWARE/LINES/TUBES: None. BONES: No acute findings. OTHER: No other significant finding. Procedure Note Provider, MD Lawanda - 08/23/2020 EXAM DESCRIPTION: Chest 1 View Portable REASON FOR STUDY: shortness of breath x 5 hrs TECHNIQUE: Frontal radiographic view of the chest acquired. COMPARISON: Chest x-ray January 05, 2018 FINDINGS: LUNGS/PLEURA: No focal consolidation or pneumothorax. No pleuraleffusion. HEART/MEDIASTINUM: Heart size is normal. Normal mediastinal and hilarcontours. HARDWARE/LINES/TUBES: None. BONES: No acute findings. OTHER: No other significant finding. IMPRESSION: No acute cardiopulmonary disease. THIS IS AN ELECTRONICALLY VERIFIED FINAL REPORT 01/08/2018 3:41 AM - Electronically signed by Moshe Stuart M.D. 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
--- OUTSIDE RECORDS SUMMARY | 2024-03-24 18:56 | XMS_ITS | Encounter Summary ---
Author Organization [facility] Healthcare Address [address] [place] [address] Care Team Providers Care Dice Dealer Name Role Phone Unknown, Notinfile Primary Care Provider Unavail able Reason for Visit * Reason Comments Chest Pain Encounter Details Date Type Department Care Team (Late st Contact Info) Description 02/03/2018 7:50 PM CDT - 02/07/2018 4:38 PM CDT Hospital Encounter [facility] [address] [place] [address] Baljeet Torres MD [address] [place] [address] Hugh Louie MD [address] [facility] [facility] [address] [place] [address] Fátima Aldridge MD [address] [facility] [address] [place] [address] Garrett Lamb MD [address] [place] [address] Amphetamine abuse (CMS/HCC) (Primary Dx); Cannabis abuse; ETOH abuse; Transient alteration of awareness; Patient noncompliant with anticoagulant medication; Right leg swelling Discharge Disposition: Discharge to home or self [...] Sign Reading Time Taken Comments Blood Pressure 122/80 02/07/2018 1:00 PM CDT Pulse 94 02/07/2018 1:00 PM CDT Temperature 37.1 ??C (98.8 ??F) 02/07/2018 1:00 PM CD T Respiratory Rate 20 02/07/2018 1:00 PM CDT Oxygen Saturation 98% 02/07/2018 1:00 PM CDT Inhaled Oxygen Concentration - - Weight 146.6 kg (323 lb 3.2 oz) 02/05/2018 5:15 AM CDT Height 170.2 cm (5' 7 ) 02/04/2018 5:40 PM CDT Body Mass Index 50.62 02/04/2018 5:40 PM CDT documented in this encounter Discharge Summaries * Fátima Aldridge MD - 02/07/2018 4:38 PM CDT Inpatient Discharge Summary BRIEF OVERVIEW Admitting Provider: Hugh Louie MD Discharge Provider: No att. providers found Primary Care Physician at Discharge: Notinfile Unknown None Admission Date: 02/03/2018 Discharge Date: 02/07/2018 Admission Location: [facility] Primary Discharge Diagnosis: Cognitive and behavioral changes Secondary Discharge Diagnosis: Cognitive and behavioral changes alcohol use disorder ([facility]) History of DVT (deep vein thrombosis) Chronic acquired lymphedema Hypertension Anemia Polysubstance abuse (CMS/HCC) DETAILS OF HOSPITAL STAY Presenting Problem/History of Present Illness: Reproduced from H&P dated 02/04/18: 47 year old female with past medical history of EtOH abuse, multiple DVTs (on warfarin) complicatedby chronic LE edema and hypertension who presents with leg pain and behavioral changes. ?? History is obtained from son and patient. ?? 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 However since 11/2017 there has been a progressive decline in her behavior and change in her personality. The family has noticed more confused and erratic behavior. She was fired from her job and moved in with her son by [employer]. ?? Examples of changes in her behavior include, hitch hiking, stealing family members cars, and increased drinking. She reports drinking 1/2 bottle of wine daily, however her sons whom she live with note that she drinks much more than this including hard liquor. They also noticed that she has been obtaining vicodin and using this in conjunction with alcohol. She was found yesterday in a family member's car after running out of gas, sitting and drinking in the car. She requested to be brought to the ED for alcohol detox and her leg pain. ?? In the ED, she is afebrile, HR 85, RR 17, BP 155/82, satting 100% on RA. She initially complained of chest pain, but later stated this had resolved. Lab work showed negative troponin, BMP unremarkable, CBC with Hgb of 8.7, no leukocytosis, normal TSH, UA normal, UDS with positive cannabinoids and pr esumptive amphetamines, EtOH level <10. In the ED she requested to see psychiatry for depression. Psych saw patient and she score a 16 on MOCA. ?? On my interview with patient she exhibits many of the same behaviors described in the psychiatry consult note. She is very disinhibited, stating you are very handsome and how much money do you make . 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 She does endorse depressive symptoms but appears to be elated currently and reports feeling great . The patient readily admits to EtOH and polysubstance abuse and that she feels she is an alcoholic. She endorses having severe EtOH withdrawal in the past when trying to abstainwith severe anxiety attacks, heart racing and high blood pressure. She denies seizures. ?? She states she used cocaine and ecstasy this past week, as well as marijuana. She states she had smoked marijuana in the past but that she had never tried other drugs prior to the occasions this pastweek. She also reports having intercourse with someone she hardly knew yesterday morning. Did not ask for additional details on this. On ROS, she deneis chest pain/pressure/tightness on exertion, no shortness of breath, fevers/chills, nausea/vomiting, nightsweats, diarrhea/constipation, URI symptoms or sick contacts. Hospital Course: Ms. Addison was admitted for alcohol detox and mood disorder. Psychiatry evaluated her in the ED and felt her presentation was not consistent with manic or psychotic behavior, and that it did not meet the criteria for psychiatric admission. I confirmed with her PCP that she never exhibited similar behavior in the past, and had been treated with lexapro and prn xanax for depression/anxiety in the past. While on the floor, she was cooperative with staff and with taking medications as prescribed. She was initially maintained on elopement precautions, which were discontinued and she remained cooperative and appropriate. She was initially started on the CIWA protocol, but was switched to a scheduled librium taper as her baseline tremor was triggering the protocol without associated autonomic symptoms. She denied any hallucinations and had no seizures throughout her stay. She was also given high-dose thiamine repletion and discharged on thiamine. Her sons stated that after discharge, she would have 24 hour supervision for the remainder of her librium taper, and that one of them would keepthe pills and give them to her when they were due. I counseled her on alcohol and drug cessation. At discharge, she denied any SI/HI and seemed motivated to complete her taper and remain off alcohol and other drugs; her sons expressed willingness to help her explore avenues for psychiatric care and potential substance rehab. Additionally, she had been out of her warfarin for some time, which she is taking due to DVTs (mostrecent 11/2017). She was on lovenox in the hospital and switched to xarelto at discharge as she did not have a PCP to follow her INR. She was provided counseling on how to take xarelto, and her sons were also informed of the change in medication. She plans to find a PCP after discharge. Finally, the lymphedema team saw her for leg pain and taught her how to wrap her legs. Her leg painimproved significantly with this. She was provided with a prescription for outpatient lymphedema evaluation; unfortunately, she left without it, so a copy was mailed to her home address. Active Issues Requiring Follow-up: Test Results Pending at Discharge: Operative Procedures Performed: Other Procedures: Pertinent Test Results: Discharge Details Physical Exam at Discharge: Discharge Condition: fair Pulse: 94 Resp: 20 BP: 122/80 Temp: 37.1 ??C (98.8 ??F) Weight: (!) 146.6 kg (323 lb 3.2 oz) Pertinent Exam Findings at Discharge: Gen: NAD HEENT: NCAT, PERRL, anicteric, MMM Neck: Supple Cardiac: RRR no m/g/r Pulm: CTAB no w/r/r Ext: lymphedema wraps bilaterally Neuro: A&Ox4, face symmetric, moving all extremities Psych: Expansive mood Discharge Disposition: Discharge to home or self care Code Status at Discharge: Full code Discharge Instructions: Activity Instructions Discharge activity: Resume normal activity Diet Instructions Adult Discharge Diet Diet Type: Return to previous diet Other Instructions Call provider for: Call your provider or go to the ED if you have the following: Fever > 101 degrees Severe nausea or vomiting Chest pain or difficulty breathing Unexplained swelling of your legs Hives or new rashes Severe pain Persistent headache, visual disturbances, or difficulty speaking Dizziness or lightheadedness Inability to take or obtain your medications Significant tremors or sweating Hallucinations Special Instructions You are being switched from warfarin to xarelto, another anticoagulant. You should take 15 mg twicedaily for 21 days, then take 20 mg once daily. Please take your first dose of xarelto approximately2 hours before your next injection of lovenox would have been due. Special Instructions You are being discharged with a librium taper. You will be discharged with 5 pills. You should takeone tonight (02/07) at 6 pm and another at midnight. On 02/08 you should take your pills at noon and midnight. On 02/09 you should take your last pill at noon. Do NOT mix with alcohol. Discharge Medications: Your medication list START taking these medications acetaminophen 500 mg capsule Take 2 capsules (1,000 mg total) by mouth every 8 (eight) hours as needed for pain. Notes to patient: For pain chlordiazePOXIDE 25 mg capsule Commonly known as: LIBRIUM Take 1 capsule (25 mg total) by mouth every 6 (six) hours. For 2 doses, then twice a day for two doses, then once a day. Notes to patient: For withdrawal symptoms escitalopram 20 mg tablet Commonly known as: LEXAPRO Take 1 tablet (20 mg total) by mouth daily. Notes to patient: For depression rivaroxaban 15 mg (42)- 20 mg (9) tablets,dose pack tablet Take 1 Package by mouth as directed. Take 15 mg BID with food for 21 days, then take 20 mg daily Notes to patient: Blood thinner thiamine 250 mg tablet Commonly known as: VITAMIN B-1 Take 1 tablet (250 mg total) by mouth daily. Notes to patient: Vitamin supplement CONTINUE taking these medications furosemide 40 mg tablet Commonly known as: LASIX Notes to patient: Water pill losartan-hydroCHLOROthiazide 50-12.5 mg per tablet Commonly known as: HYZAAR Notes to patient: For heart STOP taking these medications ALPRAZolam 0.5 mg tablet Commonly known as: XANAX warfarin 5 mg tablet Commonly known as: COUMADIN Outpatient Follow-Up: No future appointments. Contact Information for Follow-ups [facility] Specialty: Behavioral Health [address] [phone] Next Steps: Follow up [facility] Specialty: Psychiatry [address] [place] [address] Next Steps: Follow up Notinfile Unknown Relationship: PCP - General Next Steps: Follow up documented in this encounter Discharge Instructions * Appointments* Nichole Taylor RN - 02/06/2018 3:00 PM CDT Please call to get established with a primary care doctor and make an appointment within 7-10 days of discharge. You can call the back of your insurance card to find a MD in your area. Also, you can call [phone] for more information on PCP's in your area. It is very important to follow up with a doctor after your hospitalization. * Attachments The following attachments cannot be sent through Care Everywhere. * Abuse of Alcohol (AfterCare(R) Instructions(ER/ED)) (Amharic) documented in this encounter Medications at Time [...] 02/07/2018 05/02/2019 documented as of this encounter Ordered Prescriptions Prescription Sig Dispense Quantity Refills Last Filled Start Date End Date chlordiazePOXIDE (LIBRIUM) 25 mg capsule Take 1 capsule (25 mg total) by mouth every 6 (six) hours. For 2 doses, then twice a day for two doses, then once a day. 5 capsule 02/07/2018 0 RIVAROXABAN 15 MG (42)-20 MG (9) TABLETS IN A STARTER PACK Take 1 Package by mouth as directed. Take 15 mg BID with food for 21 days, then take 20 mg daily 1 each 02/07/2018 0 thiamine (VITAMIN B-1) 250 mg tablet Take 1 tablet (250 mg total) by mouth daily. 30 tablet 11 02/07/2018 9 escitalopram (LEXAPRO) 20 mg tablet Take 1 tablet (20 mg total) by mouth daily. 30 tablet 02/08/2018 0 chlordiazePOXIDE (LIBRIUM) 25 mg capsule Take 1 capsule (25 mg total) by mouth every 6 (six) hours. For 2 doses, then twice a day for two doses, then once a day. 5 capsule 02/07/2018 8 acetaminophen 500 mg capsule Take 2 capsules (1,000 mg total) by mouth every 8 (eight) hours as needed for pain. 180 tablet 02/07/2018 8 documented in this encounter Discharge Disposition Disposition Code Departure Means Destination Discharge to home or self care documented in this encounter Progress Notes * Nichole Taylor RN - 02/07/2018 3:30 PM CDT 02/07/18 1530 Discharge Summary Chart reviewed For Medical Necessity Does patient have a planned readmission to hospital planned? No Discharge Disposition Home Equipment/Provider Needs No Home Needs Identified Discharge Additional Assistance Financial assistance Cab voucher provided Patient is medically stable to discharge home today. Patient given cab voucher for transportation home. No additional needs noted at this time. ADD: Today * Fátima Aldridge MD - 02/07/2018 1:27 PM CDT Daily Progress Note Division of Hospital Medicine Name: Tiarra Addison Today: February 07, 2018 : 1970 Age: 47 y.o. female Admit: 02/03/2018 Bed: [id number] Subjective Chief complaint: None Interval History: No acute events overnight. Transitioned to scheduled librium taper yesterday and is doing well. Does not have new PCP yet. No new complaints today. Objective Medications: Scheduled: chlordiazePOXIDE 25 mg oral Q6H enoxaparin 0.75 mg/kg subcutaneous Q12H KENTRELL escitalopram 20 mg oral Daily furosemide 40 mg oral Daily hydroCHLOROthiazide 12.5 mg oral Daily losartan 50 mg oral Daily naproxen 500 mg oral Once sodium chloride 0.9% 0.5-20 mL intra-catheter Q8H KENTRELL thiamine 250 mg intravenous Q24H KENTRELL warfarin 5 mg oral Daily-1800 Infusions: PRN: ??? acetaminophen ??? benzocaine ??? ondansetron ODT OR ondansetron ??? sodium chloride 0.9% Vitals: 24hr Min/Max: Temp Min: 36.7 ??C (98.1 ??F) Max: 37.1 ??C (98.8 ??F) Pulse Min: 81 Max: 94 BP Min: 112/66 Max: 149/92 Resp Min: 18 Max: 24 SpO2 Min: 98 % Max: 100 % Most Recent: Vitals: 02/07/18 1300 BP: 122/80 Pulse: 94 Resp: 20 Temp: 37.1 ??C (98.8 ??F) SpO2: 98% Intake/Output Summary (Last 24 hours) at 02/07/18 1323 Last data filed at 02/06/18 2215 Gross per 24 hour Intake 10 ml Output 0 ml Net 10 ml Physical Exam Gen: NAD HEENT: NCAT, PERRL, anicteric, MMM Neck: Supple Cardiac: RRR no m/g/r Pulm: CTAB no w/r/r Ext: lymphedema wraps bilaterally Neuro: A&Ox4, face symmetric, moving all extremities Psych: Expansive mood Lab/Diagnostic Review: Recent Results (from the past 24 hour(s)) Creatinine Collection Time: 02/06/18 8:01 PM Result Value Ref Range Creatinine 0.82 0.60 - 1.10 mg/dL CBC without differential Collection Time: 02/06/18 8:01 PM Result Value Ref Range WBC 8.0 3.8 - 9.9 K/cumm Hgb 8.3 (L) 11.9 - 15.5 g/dL Hct 29.0 (L) 35.6 - 45.5 % Plt 299 150 - 400 K/cumm MPV 9.4 9.1 - 12.3 fL RBC 3.95 3.90 - 5.20 M/cumm MCV 73.4 (L) 81.3 - 96.4 fL MCH 21.0 (L) 27.1 - 33.3 pg MCHC 28.6 (L) 32.3 - 35.7 g/dL RDW CV 19.3 (H) 11.1 - 14.9 % RDW SD 50.2 (H) 35.7 - 48.1 fL NRBC Abs 0.00 0.00 - 0.01 K/cumm Protime-INR Collection Time: 02/06/18 8:01 PM Result Value Ref Range PT 14.1 (H) 8.5 - 13.0 sec INR 1.31 (H) 0.80 - 1.21 I have reviewed the laboratory results. Assessment/Plan * Cognitive and behavioral changes Assessment & Plan Progressive decline since 11/2017. 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 Disinhibition with worsening EtOH abuse, new PSA (cocaine, marijuana, ectstasy), stealing family members cars, hitchhiking, hypersexual behavior. Ddx includes: Drug-induced vs Wernicke-Korsakoff (either from EtOH ornutritional deficiency 2/2 bypass surgery). Head CT no acute intracranial process, RPR HIV neg, B12and TSH wnl -Cont lexapro -Psych evaluated in ED, provided patient with outpatient resources -Will discharge on PO thiamine Polysubstance abuse (CMS/HCC) Assessment & Plan Formerly reports using her prescriptions for vicodin and xanax in conjunction with alcohol. Now endorses trying cocaine and ecstasy recently which she has not previously tried. Endorses smoking marijuana more often recently as well. UDS with +MJ and amphetamines. -SW for resources -Avoid opioids Hypertension Assessment & Plan Cont home losartan HCTZ Chronic acquired lymphedema Assessment & Plan Bilateral LE. Would likely benefit from lymphedema wraps -Consult placed for lymphedema PT/OT -Can cont home lasix 40mg (confirmed w/ pharmacy) History of DVT (deep vein thrombosis) Assessment & Plan History of multiple recurrent DVTs. On life long anticoagulation per patient and family, confirmed on phone with PCP office. No records in our system as she recently moved here from [place]. Pt reports missing 1 week of warfarin after running out two weeks ago -Does not have PCP follow up yet and INR not therapeutic. Discussed switching to DOAC with patient,which she would prefer. Will change to xarelto alcohol use disorder (CMS/HCC) Assessment & Plan Everyday drinker, last drink 02/03 AM. H/o EtOH withdrawal, but denies DT's. -Changed to scheduled librium taper, which would end on Saturday. Discussed with son that he needs tokeep the bottle and give her the medications as scheduled. -Discharge on PO thiamine * Fátima Aldridge MD - 02/06/2018 1:03 PM CDT Daily Progress Note Division of Hospital Medicine Name: Tiarra Addison Today: February 06, 2018 : 1970 Age: 47 y.o. female Admit: 02/03/2018 Bed: [id number] Subjective Chief complaint: None Interval History: Feeling improved with lymphedema wraps. Unfortunately still using librium q4 hours, triggered by tremors and sweating. Asked patient and while she sometimes has tremors, these are worse than normal. No hallucinations or seizures. Received outpatient records and has not had similarpresentation in the past. Was on lexapro and prn xanax as an outpatient for depression/anxiety. Prior UDS negative, though did have morphine in a recent UDS which would not have come from outpatient prescription, unclear if she had received during a hospitalization as this was not commented on in PCP records. Objective Medications: Scheduled: enoxaparin 0.75 mg/kg subcutaneous Q12H KENTRELL escitalopram 20 mg oral Daily furosemide 40 mg oral Daily hydroCHLOROthiazide 12.5 mg oral Daily losartan 50 mg oral Daily naproxen 500 mg oral Once sodium chloride 0.9% 0.5-20 mL intra-catheter Q8H KENTRELL [START ON 02/07/2018] thiamine 250 mg intravenous Q24H KENTRELL thiamine 500 mg intravenous TID warfarin 5 mg oral Daily-1800 Infusions: PRN: ??? acetaminophen ??? chlordiazePOXIDE OR chlordiazePOXIDE OR [DISCONTINUED] LORazepam OR [DISCONTINUED] LORazepam OR [DISCONTINUED] LORazepam OR [DISCONTINUED] LORazepam ??? ondansetron ODT OR ondansetron ??? sodium chloride 0.9% Vitals: 24hr Min/Max: Temp Min: 36.7 ??C (98.1 ??F) Max: 37.1 ??C (98.8 ??F) Pulse Min: 83 Max: 99 BP Min: 122/74 Max: 153/85 Resp Min: 18 Max: 20 SpO2 Min: 100 % Max: 100 % Most Recent: Vitals: 02/06/18 1040 BP: 127/78 Pulse: 83 Resp: 18 Temp: 37.1 ??C (98.8 ??F) SpO2: 100% Intake/Output Summary (Last 24 hours) at 02/06/18 1256 Last data filed at 02/05/18 1630 Gross per 24 hour Intake 100 ml Output 0 ml Net 100 ml Physical Exam Gen: NAD HEENT: NCAT, PERRL, anicteric, MMM Neck: Supple Cardiac: RRR no m/g/r Pulm: CTAB no w/r/r Abd: Soft, NTND, +BS Ext: lymphedema wraps bilaterally Skin: No new rashes or lesions Neuro: A&Ox4, face symmetric, moving all extremities Psych: Expansive mood Lab/Diagnostic Review: Recent Results (from the past 24 hour(s)) Creatinine Collection Time: 02/06/18 12:23 AM Result Value Ref Range Creatinine 1.14 (H) 0.60 - 1.10 mg/dL CBC without differential Collection Time: 02/06/18 12:23 AM Result Value Ref Range WBC 8.0 3.8 - 9.9 K/cumm Hgb 9.0 (L) 11.9 - 15.5 g/dL Hct 31.1 (L) 35.6 - 45.5 % Plt 328 150 - 400 K/cumm MPV 9.5 9.1 - 12.3 fL RBC 4.26 3.90 - 5.20 M/cumm MCV 73.0 (L) 81.3 - 96.4 fL MCH 21.1 (L) 27.1 - 33.3 pg MCHC 28.9 (L) 32.3 - 35.7 g/dL RDW CV 19.6 (H) 11.1 - 14.9 % RDW SD 50.7 (H) 35.7 - 48.1 fL NRBC Abs 0.00 0.00 - 0.01 K/cumm Protime-INR Collection Time: 02/06/18 12:23 AM Result Value Ref Range PT 14.1 (H) 8.5 - 13.0 sec INR 1.31 (H) 0.80 - 1.21 I have reviewed the laboratory results. Assessment/Plan * Cognitive and behavioral changes Assessment & Plan Progressive decline since 11/2017. 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 Disinhibition with worsening EtOH abuse, new PSA (cocaine, marijuana, ectstasy), stealing family members cars, hitchhiking, hypersexual behavior. Ddx includes: Drug-induced vs Wernicke-Korsakoff (either from EtOH ornutritional deficiency 2/2 bypass surgery) -Head CT no acute intracranial process, RPR HIV neg, B12 and TSH wnl -Per OSH physician, was on lexapro, restarted today -Psych evaluated in ED, provided patient with outpatient resources -Continue high-dose thiamine -Will d/c elopement precautions/sitter as patient has not demonstrated that she is a risk to herself/others while hospitalized and seems motivated to stay through withdrawal window Polysubstance abuse (CMS/HCC) Assessment & Plan Formerly reports using her prescriptions for vicodin and xanax in conjunction with alcohol. Now endorses trying cocaine and ecstasy recently which she has not previously tried. Endorses smoking marijuana more often recently as well. UDS with +MJ and amphetamines. -SW for resources -Avoid opioids Hypertension Assessment & Plan Cont home losartan HCTZ Chronic acquired lymphedema Assessment & Plan Bilateral LE. Would likely benefit from lymphedema wraps -Consult placed for lymphedema PT/OT -Can cont home lasix 40mg (confirmed w/ pharmacy) History of DVT (deep vein thrombosis) Assessment & Plan History of multiple recurrent DVTs. On life long anticoagulation per patient and family, confirmed on phone with PCP office. No records in our system as she recently moved here from [place]. Pt reports missing 1 week of warfarin after running out two weeks ago -Cont lovenox, warfarin, goal INR 2-3 alcohol use disorder (CMS/HCC) Assessment & Plan Everyday drinker, last drink 02/03 AM. H/o EtOH withdrawal, but denies DT's. -CIWA protocol, still using librium q4 and would be concerned about misuse as an outpatient -High-dose thiamine * Carmen Stoll, OT - 02/06/2018 8:13 AM CDT Occupational Therapy OT order received and chart reviewed. Spoke with pt this AM, who states she has been ambulating in the room independently and presents fully dressed this morning, sitting up and eating breakfast. Declines OT evaluation, stating she has garland maker help at home, no recent change in cognitive status, and no history of falls. Will complete OT orders at this time. Thanks. Carmen Stoll OT 02/06/18 8:14 AM * Mariama Hale MD - 02/06/2018 12:17 AM CDT Event Note Called by RN that patient upset about sitter and could be on verge of leaving AMA while on elopement precautions. Reviewed chart, patient with PSA and behavorial changes, evaluated by psych earlier in hospitalization. Care team consultation reached consensus that patient would not be safe to leave hospital in the afterhours and elopement precautions renewal/indication can be further assessed in AM. Discussed with patient need for sitter, need for line of eyesight with sitter and placement of chair in room is not hindrance of her personal space. Patient agreeable after explaining need for sitter for her safety and that sitter activities are not unique to her situation, these are rules for all sitters. Everyone agreed, patient continued to eat dinner * Fátima Aldridge MD - 02/05/2018 2:06 PM CDT Daily Progress Note Division of Hospital Medicine Name: Tiarra Addison Today: February 05, 2018 : 1970 Age: 47 y.o. female Admit: 02/03/2018 Bed: [id number] Subjective Chief complaint: Leg pain Interval History: No acute events overnight, though was requesting morphine and ambien from cross-covering physician. This morning mental status seems largely unchanged. Still trying to get records from prior PCP. Objective Medications: Scheduled: enoxaparin 0.75 mg/kg subcutaneous Q12H [facility] furosemide 40 mg oral Daily hydroCHLOROthiazide 12.5 mg oral Daily losartan 50 mg oral Daily naproxen 500 mg oral Once sodium chloride 0.9% 0.5-20 mL intra-catheter Q8H [facility] [START ON 02/07/2018] thiamine 250 mg intravenous Q24H [facility] thiamine 500 mg intravenous TID warfarin 5 mg oral Daily-1800 Infusions: PRN: ??? acetaminophen ??? chlordiazePOXIDE OR chlordiazePOXIDE OR LORazepam OR LORazepam OR LORazepam OR LORazepam ??? ondansetron ODT OR ondansetron ??? sodium chloride 0.9% Vitals: 24hr Min/Max: Temp Min: 36.6 ??C (97.9 ??F) Max: 37.2 ??C (99 ??F) Pulse Min: 77 Max: 90 BP Min: 120/76 Max: 151/86 Resp Min: 16 Max: 20 SpO2 Min: 100 % Max: 100 % Most Recent: Vitals: 02/05/18 1200 BP: 146/84 Pulse: 88 Resp: 20 Temp: 37 ??C (98.6 ??F) SpO2: Intake/Output Summary (Last 24 hours) at 02/05/18 1400 Last data filed at 02/05/18 1019 Gross per 24 hour Intake 340 ml Output 150 ml Net 190 ml Physical Exam Gen: NAD HEENT: NCAT, PERRL, anicteric, MMM Neck: Supple Cardiac: RRR no m/g/r Pulm: CTAB no w/r/r Abd: Soft, NTND, +BS Ext: significant lymphedema, R calf TTP without erythema or warmth Skin: No new rashes or lesions Neuro: A&Ox4, face symmetric, moving all extremities Psych: Expansive mood Lab/Diagnostic Review: Recent Results (from the past 24 hour(s)) Creatinine Collection Time: 02/04/18 8:12 PM Result Value Ref Range Creatinine 0.87 0.60 - 1.10 mg/dL CBC without differential Collection Time: 02/04/18 8:21 PM Result Value Ref Range WBC 7.8 3.8 - 9.9 K/cumm Hgb 8.9 (L) 11.9 - 15.5 g/dL Hct 30.7 (L) 35.6 - 45.5 % Plt 291 150 - 400 K/cumm MPV 9.6 9.1 - 12.3 fL RBC 4.16 3.90 - 5.20 M/cumm MCV 73.8 (L) 81.3 - 96.4 fL MCH 21.4 (L) 27.1 - 33.3 pg MCHC 29.0 (L) 32.3 - 35.7 g/dL RDW CV 19.6 (H) 11.1 - 14.9 % RDW SD 51.6 (H) 35.7 - 48.1 fL NRBC Abs 0.00 0.00 - 0.01 K/cumm aPTT Collection Time: 02/04/18 8:21 PM Result Value Ref Range aPTT 29.6 25.0 - 37.0 sec Protime-INR Collection Time: 02/04/18 8:21 PM Result Value Ref Range PT 14.1 (H) 8.5 - 13.0 sec INR 1.31 (H) 0.80 - 1.21 Creatinine Collection Time: 02/05/18 5:16 AM Result Value Ref Range Creatinine 0.91 0.60 - 1.10 mg/dL CBC without differential Collection Time: 02/05/18 5:16 AM Result Value Ref Range WBC 7.8 3.8 - 9.9 K/cumm Hgb 9.1 (L) 11.9 - 15.5 g/dL Hct 30.8 (L) 35.6 - 45.5 % Plt 308 150 - 400 K/cumm MPV 9.8 9.1 - 12.3 fL RBC 4.22 3.90 - 5.20 M/cumm MCV 73.0 (L) 81.3 - 96.4 fL MCH 21.6 (L) 27.1 - 33.3 pg MCHC 29.5 (L) 32.3 - 35.7 g/dL RDW CV 19.3 (H) 11.1 - 14.9 % RDW SD 50.0 (H) 35.7 - 48.1 fL NRBC Abs 0.00 0.00 - 0.01 K/cumm I have reviewed the laboratory results. Imaging Results: US Vein Duplex Lower Extremity Bilateral Complete [facility] - Department of Vascular Surgery, Vascular Laboratory [address] [place] [address] Lower Extremity Venous Ultrasound Report Patient Name: TIARRA ADDISON : 1970 (47y 1m) Study Date: 02/04/2018 7:50:01 AM Gender: F Tech: TM Location: 2184 Ref.Provider: FÁTIMA ALDRIDGE Quality: Adequate Order Provider: FLORENCE ZEPEDA Procedures: Vascular Report: Venous Duplex imaging was performed bilaterally in the lower extremities. The common femoral, femoral, popliteal, posterior tibial, peroneal veins were evaluated for patency, spontaneity and phasicity with Doppler, compression and augmentation maneuvers. Great saphenous vein proximal at the junction was evaluated with compression maneuvers. Indications: HX of DVT. Findings: Performing [place] Gatherer: Evelyn Murdock RVT. Bilateral: Venous Doppler signals [...] [facility] 2018-02-04 20:48:13 CDT CC: CC: CT Head WO Contrast Narrative: EXAMINATION: Noncontrast head CT HISTORY:47-year-old man with hypertension, DVT/PE, and alcohol and substance abuse presented with altered mental status. TECHNIQUE: Noncontrast CT of the brain was performed with images acquired from skull base to vertex. COMPARISON: None FINDINGS: Topogram demonstrates no lytic lesions or fractures. There is no acute intracranial hemorrhage. Ventricles are of normal size and morphology. No mass effect or midline shift is present. Mineralization in basal ganglia is noted. The li-white matter differentiation is normal. The visualized portions of the orbits are normal. The visualized portions of the mastoids are normal. The visualized portions of the paranasal sinuses are normal. No fractures are identified. Impression: No acute intracranial abnormality. Dictated by: Ran Rinaldi Electronically signed by: Jonn Catalan M.D, PHD XR Chest Pa Lateral 2 Vw Narrative: EXAMINATION: XR CHEST PA LATERAL 2 VIEWS HISTORY: Left-sided chest pain extending to the left arm COMPARISON: None Impression: Two views of the chest are submitted for interpretation. No pneumothorax, pleural effusion or focal consolidation. There is mild left basilar atelectasis. Heart size is within normal limits. Dictated by: Tiburcio Lock M.D. , PHD Electronically signed by: Keshawn Mandujano M.D. CT Chest PE W Contrast Narrative: EXAMINATION: Computed tomography of the chest with intravenous contrast HISTORY: hx PE now with chest pain, not taking warfarin TECHNIQUE: Transaxial computed tomographic images of the chest were obtained with intravenous contrast according to the standard protocol after the uneventful administration of 100 mL Opti-Ray 350 intravenous contrast. COMPARISON: None FINDINGS: Heart size is normal. No pericardial effusion. Thoracic aorta is of normal course and caliber. Major aortic branches are patent. No central, lobar or segmental pulmonary embolism. Apparent filling defects in the subsegmental arteries in the lower lobes for reference slice position -576.5 in the right lower lobe, are favored to represent motion artifact. There are calcified mediastinal lymph nodes. No mediastinal, supraclavicular or axillary lymphadenopathy by size criteria. Thyroid is normal. Esophagus appears normal. Central airways are patent with no endobronchial mass. There is left basilar granuloma. Mild left basilar atelectasis noted. No pleural effusion. No pneumothorax. Limited evaluation of the upper abdomen demonstrate no acute finding. There is mild nodular thickening of the right adrenal gland. Postsurgical changes of prior gastric bypass surgery are noted. Bone windows demonstrate no suspicious osseous lesion. Impression: No pulmonary embolism. Dictated by: Tiburcio Lock M.D. , PHD Electronically signed by: Keshawn Mandujano M.D. Assessment/Plan * Cognitive and behavioral changes Assessment & Plan Progressive decline since 11/2017. 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 Disinhibition with worsening EtOH abuse, new PSA (cocaine, marijuana, ectstasy), stealing family members cars, hitchhiking, hypersexual behavior. Ddx includes: Drug-induced vs Wernicke-Korsakoff (either from EtOH ornutritional deficiency 2/2 bypass surgery) -Head CT no acute intracranial process, RPR HIV neg, B12 and TSH wnl -Per OSH physician, was on lexapro. Still awaiting records for dosing, etc -Psych evaluated in ED, will touch base with them tomorrow. -Continue high-dose thiamine Polysubstance abuse (CMS/HCC) Assessment & Plan Formerly reports using her prescriptions for vicodin and xanax in conjunction with alcohol. Now endorses trying cocaine and ecstasy recently which she has not previously tried. Endorses smoking marijuana more often recently as well. UDS with +MJ and amphetamines. -SW for resources -Avoid opioids Hypertension Assessment & Plan Cont home losartan HCTZ Chronic acquired lymphedema Assessment & Plan Bilateral LE. Would likely benefit from lymphedema wraps -Consult placed for lymphedema PT/OT -Can cont home lasix 40mg (confirmed w/ pharmacy) History of DVT (deep vein thrombosis) Assessment & Plan History of multiple recurrent DVTs. On life long anticoagulation per patient and family, confirmed on phone with PCP office. No records in our system as she recently moved here from [place]. Pt reports missing 1 week of warfarin after running out two weeks ago -Cont lovenox, warfarin, goal INR 2-3 alcohol use disorder (CMS/HCC) Assessment & Plan Everyday drinker, last drink 02/03 AM. H/o EtOH withdrawal, but denies DT's. -CIFL protocol -High-dose thiamine -SW consult for outpatient resources * Kimmy Maki, PT - 02/05/2018 11:34 AM CDT Lymphedema Therapy Lymphedema addendum, please see flow sheets for same date for further information. Pt reports 10 year history of edema in her legs, states this was worsened when she had her blood clots. Reports gradually getting worse over the years with multiple episodes of cellulitis. Previous treatment included some therapy that she describes as massaging my leg and some bandaging, however this sounds as though it was with MILLIE bandages and not a short stretch. She states she was unable to get a garment because there are none that would fit her and she would have to get a custom one that they told her would be about $2,500. She does also have a pump at home, states currentlythis is in storage because she just recently moved to the [facility], and does not have a permanent residence yet, but describes it as thigh high sleeves for each leg, starting the cycle at the foot and compressing up to 50mmHg, but states she often turns it down because 50 feels too tight. At one point she mentioned doing some bandaging at home, but timeframe and types of intervention she had were not always matching up with her history, questionable on some of the details. She is agreeable to and excited about trying CDT to help her legs, also states she would likely need to follow up in [place] because of her insurance. Kimmy Maki, PT, 02/05/18 * Nichole Taylor, RN - 02/05/2018 9:22 AM CDT 02/05/18 0921 Referral Data Referral Reason Discharge Planning Patient Information Primary Caregiver Self Support System Children;Family members Support system contact info (name, phone, availablity) arya Meeks [phone] Prior Level of Functioning Durable Medical Equipment None Living Arrangement [facility] Income Information Income Source Unemployed Potential Discharge Needs Discharge Potential Patient plans to return to son's home at discharge. Anticipated discharge level of care Return Home Dialysis No Communications Fiduciary Responsibility Patient/Designated decision maker was informed of [facility] fiduciary relationship as necessary Patient ID verified by name and date of . Admission source: non health care origin Insurance verified as: listed as self pay, patient states she has wilkins. Will send to [employer]. Previous functional status: Independent and able to care for self Present employment status: unemployed Pharmacy: [facility] Impression: 47 year old female with past medical history of EtOH abuse, multiple DVTs (on warfarin)complicated by chronic LE edema and hypertension who presents with leg pain and behavioral changes. Referrals initiated to: none at this time Additional Information/Options Discussed: Address and phone number verified with face sheet. Patient does not have a PCP. States she recently moved here from [place]. Currently living with her son and daughter in a townhouse. Denies DME or home health prior to admission. Plan includes: Patient plans to return home at discharge. Assistance after discharge will be provided by: adult children Transportation will be provided by: car per family Patient/Family agrees with plan. Through the course of our work I determined that son possesses the skill and ability to provide andmonitor the care of the patient when he or she returns home. son has the capacity to provide/monitor/arrange for the care of the patient. Finally, we determined that son has the knowledge of available resources and that combining them with their existing resources will suffice to sustain and care for the patient when he or she returns home. The treatment team is aware of this information. All arein agreement with the aftercare plan. Case management will continue to follow for discharge planning and referrals as needed. Please call if I may be of any assistance. [phone] documented in this encounter H&P Notes * Rommel Angel MD - 02/04/2018 6:48 AM CDT History and Physical Division of [facility] Medicine Name: Tiarra Addison Today: February 04, 2018 : 1970 Age: 47 y.o. female Subjective The patient is a 47 y.o. female with chief complaint of altered mental status. HPI: 47 year old female with past medical history of EtOH abuse, multiple DVTs (on warfarin) complicatedby chronic LE edema and hypertension who presents with leg pain and behavioral changes. History is obtained from son and patient. 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 However since 11/2017 there has been a progressive decline in her behavior and change in her personality. The family has noticed more confused and erratic behavior. She was fired from her job and moved in with her son by [place]. Examples of changes in her behavior include, hitch hiking, stealing family members cars, and increased drinking. She reports drinking 1/2 bottle of wine daily, however her sons whom she live with note that she drinks much more than this including hard liquor. They also noticed that she has been obtaining vicodin and using this in conjunction with alcohol. She was found yesterday in a family member's car after running out of gas, sitting and drinking in the car. She requested to be brought to the ED for alcohol detox and her leg pain. In the ED, she is afebrile, HR 85, RR 17, BP 155/82, satting 100% on RA. She initially complained of chest pain, but later stated this had resolved. Lab work showed negative troponin, BMP unremarkable, CBC with Hgb of 8.7, no leukocytosis, normal TSH, UA normal, UDS with positive cannabinoids and pr esumptive amphetamines, EtOH level <10. In the ED she requested to see psychiatry for depression. Psych saw patient and she score a 16 on MOCA. On my interview with patient she exhibits many of the same behaviors described in the psychiatry consult note. She is very disinhibited, stating you are very handsome and how much money do you make . 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 She does endorse depressive symptoms but appears to be elated currently and reports feeling great . The patient readily admits to EtOH and polysubstance abuse and that she feels she is an alcoholic. She endorses having severe EtOH withdrawal in the past when trying to abstainwith severe anxiety attacks, heart racing and high blood pressure. She denies seizures. She states she used cocaine and ecstasy this past week, as well as marijuana. She states she had smoked marijuana in the past but that she had never tried other drugs prior to the occasions this pastweek. She also reports having intercourse with someone she hardly knew yesterday morning. Did not ask for additional details on this. On ROS, she deneis chest pain/pressure/tightness on exertion, no shortness of breath, fevers/chills, nausea/vomiting, nightsweats, diarrhea/constipation, URI symptoms or sick contacts. During our interview she contreras Past Medical History: Diagnosis Date ??? Hypertension ??? Lymph edema Past Surgical History: Procedure Laterality Date ??? SECTION ??? GASTRIC BYPASS HOME MEDICATIONS : Not on File No Known Allergies Social History Substance Use Topics ??? Smoking status: Never Smoker ??? Smokeless tobacco: Never Used ??? Alcohol use Not on file History reviewed. No pertinent family history. Review of Systems All other systems were reviewed and are negative except for as stated per HPI. Objective Vitals: 24hr Min/Max: Temp Min: 37.2 ??C (99 ??F) Max: 37.2 ??C (99 ??F) Pulse Min: 82 Max: 85 BP Min: 142/76 Max: 155/82 Resp Min: 17 Max: 21 SpO2 Min: 96 % Max: 100 % Most Recent Vitals: Vitals: 02/04/18 0130 BP: 149/86 Pulse: 82 Resp: Temp: SpO2: 97% No intake or output data in the 24 hours ending 02/04/18 0523 Physical Exam Constitutional: NAD, obese female, well developed, well nourished Eyes: PERRL, EOMI, anicteric ENT: NCAT, oropharynx normal, moist mucus membranes Lungs: Clear to auscultation in all lung thompson, unlabored, trachea midline Cardiovascular: RRR, normal S1 and S2, no murmurs, no JVD GI: Soft, non-tender, non-distended, bowel sounds +, no organomegaly Skin: Changes in LE consistent with chronic venous stasis, No new rashes, lesions or bruises Extremities: Right LE markedly swollen, non pitting, Left LE also with swelling but smaller than right. Not TTP, not warm or erythematous Lymph: No cervical, supraclavicular, axillary or inguinal adenopathy Neurologic: AOx4, CNII-XII intact, normal strength and sensation Psychiatric: Expansive mood Lab/Diagnostic Review: Recent Results (from the past 24 hour(s)) Troponin I Collection Time: 02/04/18 12:59 AM Result Value Ref Range Troponin I <0.03 0.00 - 0.03 ng/mL CBC with auto differential Collection Time: 02/04/18 12:59 AM Result Value Ref Range WBC 9.2 3.8 - 9.9 K/cumm Hgb 8.7 (L) 11.9 - 15.5 g/dL Hct 29.1 (L) 35.6 - 45.5 % Plt 307 150 - 400 K/cumm MPV 9.2 9.1 - 12.3 fL RBC 4.03 3.90 - 5.20 M/cumm MCV 72.2 (L) 81.3 - 96.4 fL MCH 21.6 (L) 27.1 - 33.3 pg MCHC 29.9 (L) 32.3 - 35.7 g/dL RDW CV 19.0 (H) 11.1 - 14.9 % RDW SD 49.2 (H) 35.7 - 48.1 fL NRBC Abs 0.00 0.00 - 0.01 K/cumm Basic metabolic panel Collection Time: 02/04/18 12:59 AM Result Value Ref Range Sodium 139 135 - 145 mmol/L Potassium, pl 3.8 3.3 - 4.9 mmol/L Chloride 105 97 - 110 mmol/L CO2 25 22 - 32 mmol/L Anion Gap 9 2 - 15 mmol/L BUN 12 8 - 25 mg/dL Creatinine 0.75 0.60 - 1.10 mg/dL Glucose 92 70 - 199 mg/dL Calcium 9.5 8.5 - 10.3 mg/dL Ethanol Collection Time: 02/04/18 12:59 AM Result Value Ref Range Ethanol <10.0 <=10.0 mg/dL Differential, auto Collection Time: 02/04/18 12:59 AM Result Value Ref Range Neutrophil absolute 6.2 1.7 - 6.5 K/cumm Immature granulocyte absolute 0.0 0.0 - 0.1 K/cumm Lymphocytes absolute 1.9 0.8 - 3.3 K/cumm Monocyte absolute 0.9 (H) 0.2 - 0.8 K/cumm Eosinophils absolute 0.2 0.0 - 0.5 K/cumm Basophils, abs 0.0 0.0 - 0.1 K/cumm Neutrophils 67.6 % Immature granulocytes 0.3 % Lymphocytes 20.4 % Monocytes 9.4 % Eosinophils 2.1 % Basophils 0.2 % Lipase Collection Time: 02/04/18 12:59 AM Result Value Ref Range Lipase 47 10 - 99 Units/L TSH reflex to free T4 Collection Time: 02/04/18 12:59 AM Result Value Ref Range TSH 3.40 0.30 - 4.20 mcIUnit/mL Hepatic function panel Collection Time: 02/04/18 12:59 AM Result Value Ref Range Bilirubin, total 0.5 0.1 - 1.2 mg/dL Bilirubin, direct <0.2 0.1 - 0.3 mg/dL Protein, pl 7.3 6.5 - 8.5 g/dL Albumin 3.7 3.5 - 5.0 g/dL Alk phos 92 40 - 130 Units/L ALT 15 7 - 45 Units/L AST 29 10 - 45 Units/L Drug screen, urine Collection Time: 02/04/18 1:32 AM Result Value Ref Range Amphetamines, Class Presumptive Barbiturates, Class None detected Benzodiazepines None detected Cannabinoids, Screen Positive Screen Cocaine metabolite None detected Methadone None detected Opiates, Class None detected Oxycodone, ur None detected Phencyclidine, ur None detected Urinalysis reflex to microscopic Urine Collection Time: 02/04/18 1:32 AM Result Value Ref Range Color, ur Dariela Yellow Clarity, ur Cloudy (A) Clear Specific gravity, ur 1.032 (H) 1.010 - 1.025 pH, urine 5.0 Protein, ur ql 1+ (A) Negative Glucose, ur ql Negative Negative Ketones, ur Negative Negative Bilirubin, ur Negative Negative Blood, ur 2+ (A) Negative Urobilinogen, ur 2.0 (A) <2.0 mg/dL Nitrite, ur Negative Negative Leukocyte esterase, ur Negative Negative Protime-INR Collection Time: 02/04/18 1:32 AM Result Value Ref Range PT 14.5 (H) 8.5 - 13.0 sec INR 1.35 (H) 0.80 - 1.21 aPTT Collection Time: 02/04/18 1:32 AM Result Value Ref Range aPTT 23.9 (L) 25.0 - 37.0 sec Urinalysis, microscopic only Collection Time: 02/04/18 1:32 AM Result Value Ref Range WBC, ur 0-5 0 - 5 /HPF RBC, ur 0-5 0 - 5 /HPF Epithelial cells, squamous, ur 1-5 0 - 5 /HPF Bacteria, ur 3+ (A) Mucous, ur Present (A) Hyaline casts, ur 1-5 0 - 10 /LPF POCT hCG, urine Collection Time: 02/04/18 3:36 AM Result Value Ref Range HCG, ur, POC Negative Lot Number [id number] QC Backgroud Clear Acceptable QC Control Line Acceptable I have reviewed the laboratory results. Imaging Results: XR Chest Pa Lateral 2 Vw Narrative: EXAMINATION: XR CHEST PA LATERAL 2 VIEWS HISTORY: Left-sided chest pain extending to the left arm COMPARISON: None Impression: Two views of the chest are submitted for interpretation. No pneumothorax, pleural effusion or focal consolidation. There is mild left basilar atelectasis. Heart size is within normal limits. Dictated by: Tiburcio Lock M.D. , PHD I have independently reviewed and interpreted the lab and imaging data Assessment/Plan Cognitive and behavioral changes Assessment & Plan Progressive decline since 11/2017. 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) Assessment & Plan Formerly reports using her prescriptions for vicodin and xanax in conjunction with alcohol Now endorses trying cocaine and ecstasy recently which she has not previously tried Endorses smoking marijuana more often recently as well UDS with +MJ and presumptive amphetamines Added on to ED labs: HIV and Hepatitis panel for resources Suzy reports last vicodin script has not been filled since 11/2017 Avoid opioids if possible Anemia Assessment & Plan Hgb 8.7. Patient denies melena/hematochezia -Added on iron profile/ferritin to ED labs -Transfuse <7 Hypertension Assessment & Plan Cont home losartan HCTZ Chronic acquired lymphedema Assessment & Plan Bilateral LE. Would likely benefit from lymphedema wraps -Consult placed for lymphedema PT/OT -Can cont home lasix 40mg (confirmed w/ pharmacy) History of DVT (deep vein thrombosis) Assessment & Plan History of multiple recurrent DVTs. On life long anticoagulation per patient and family -No records in our system as she recently moved here from [place] -Pt reports missing 1 week of warfarin after running out two weeks ago -[facility]. Her warfarin script for 5mg had not been filled since April at [facility] and[facility]une at [facility], INR currently 1.35 -Patient is unclear when last acute DVT was. Her son thinks this was in 11/2017 -Given lovenox x1 in ED. Will cont lovenox for now -Restart warfarin 5mg qday alcohol use disorder (CMS/HCC) Assessment & Plan Everyday drinker, last drink 02/03 AM. H/o EtOH withdrawal, but denies DT's. -CIWA protocol -Thiamine folate, MVI -SW consult for outpatient resources documented in this encounter Consult Notes * Morales Terry MD - 02/04/2018 5:10 AM CDTAssociated Order(s): IP CONSULT TO PSYCHIATRY ED Psychiatric Assessment CURRENT PROBLEMS: Principal Problem: Dementia associated with alcoholism (CMS/HCC) Active Problems: alcohol use disorder (CMS/HCC) Cognitive and behavioral changes INDENTIFYING INFORMATION: This is a 47 y.o. year old, single, Black or ,unemployed female with a history of alcohol use disorder who was brought to the hospital by relatives for chest pain. GUARDIANSHIP: no SOURCE OF INFORMATION: Patient who is poor historian Unable to reach patient's son, multiple phone numbers were given unclear which one is her sons. [phone], . Unable to reach Patient gave friends phone number [phone] unable to reach Medical record relible but incomplete CHIEF COMPLAINT: i drink alcohol everyday HISTORY OF PRESENT ILLNESS: Patient is poor historian history is limited. Patient psychiatric history begins at age 13 when shefirst started using alcohol. She states she began using heavily 10 years ago drinking 1 bottle of wine /day every day. Patient endorses having alcohol withdrawal symptoms such as tremors and anxiety,but denies history of seizures or DTs. Patient has been to chemical dependency, states she [facility] and relapsed on alcohol earlier today drinking 1 bottle of wine (although ETOH level <10). Patient endorses cravings for alcohol and patients family are not comfortable with letting her care for her 9 year old daughter due to her use. Patient is also currently unemployed and it is unclear if her alcohol use is related to her employment status. Patient also endorses daily marijuana use, and history of cocaine use and pain pill use but has not used pain pills for many years. She states last time she used cocaine was last week. Patient states she had been on xanax (unknown dose) via her PCP for anxiety.Denies inpatient psychiatric admission, denies suicide attem pts. No history of laverne or psychosis. Denies history of other psychiatric medications Patient presents to the ED after having chest pain. She endorses wanting to see a psychiatrist because she becomes angry at home sometimes and wants to harm her family when she becomes angry. She is also looking for alcohol detox. Patient endorsed feeling sad earlier today but states she had good mood rest of the week and is currently feel good. Currently denies SI/HI. Past Medical History: Diagnosis Date ??? Hypertension ??? Lymph edema Past Surgical History: Procedure Laterality Date ??? SECTION ??? GASTRIC BYPASS ALLERGIES: No Known Allergies MEDICATIONS: (Not in a hospital admission) Current Facility-Administered Medications Medication Dose Route Frequency Provider Last Rate Last Dose ??? folic acid (FOLVITE) 1 mg in sodium chloride 0.9% 50 mL IVPB 1 mg intravenous Daily Florence Zepeda MD ??? thiamine (VITAMIN B-1) 500 mg in sodium chloride 0.9% 100 mL IVPB 500 mg intravenous Once Rosita Zepeda MD 210 mL/hr at 02/04/18 0620 500 mg at 02/04/18 0620 No current outpatient prescriptions on file. Not Compliant with the following meds: xanax, ran out of prescription 1 month ago History reviewed. No pertinent family history. Social History Substance Use Topics ??? Smoking status: Never Smoker ??? Smokeless tobacco: Never Used ??? Alcohol use Not on file Social History Social History Narrative Born and raised in [facility], no abuse during childhood, has masters degree in finance. Living with son, unemployed, has firearms at home. Has 3 children oldest is 33, youngest is 9. Significant substance use, alcohol, pain pills, marijuana , see HPI for more details. Denies legal history, single, twice. REVIEW OF SYSTEMS: Review of systems per HPI and otherwise all other systems are negative PHYSICAL EXAMINATION: Vitals: 02/04/18 0130 BP: 149/86 Pulse: 82 Resp: Temp: SpO2: 97% No intake/output data recorded. No intake/output data recorded. I have reviewed the ER physician's physical exam as documented in his/her note MENTAL STATUS EXAMINATION: General Appearance and Behavior: ?? Appears stated age ?? No apparent distress ?? Normal psychomotor activity ?? Good eye contact ?? Cooperative ?? Patient naked under bed covers Speech: ?? Regular rate ?? Normal rhythm ?? Normal volume ?? Normal amount ?? Normal tone ?? Spontaneous ?? Normal latency (<3 seconds) Flow of Thought: logical, sequential and goal-directed Content of Thought: ?? Negative for suicidal ideation, homicidal ideation, hallucinations and poverty of content ?? Grandiosity: patient believes she is very intelligent, thinks she knows a lot about the hospitalsystem such as [employer] and can program it. 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 Patient also states she is suing [employer] for racism and shot man told her she will get 10-20million dollars for it. ?? Disinhibited stating this examiner is handsome , asking how much money he makes Mood: great Affect: euthymic, full range, normal amount, appropriate to conversation/situation, stable and mood-congruent Insight: poor Judgment: poor Sensorium: alert, awake and oriented x 3 Calculations: 5*5 = 25 Abstraction: concrete Language: average vocabulary Attention: difficulty with serial 3s from 20, gets confused with instructions, substracting 1s at somepoints. Memory: normal based on conversation/exam and able to remember 3/3 words at 0 minutes and 1/3 wordsat 5 minutes Fund of Knowledge: 3 large cities: [place], [place], [facility] of . LABORATORY/DIAGNOSTIC DATA REVIEW: Laboratory review: Lab results in the last 24 hours: Recent Results (from the past 24 hour(s)) Troponin I Collection Time: 02/04/18 12:59 AM Result Value Ref Range Troponin I <0.03 0.00 - 0.03 ng/mL CBC with auto differential Collection Time: 02/04/18 12:59 AM Result Value Ref Range WBC 9.2 3.8 - 9.9 K/cumm Hgb 8.7 (L) 11.9 - 15.5 g/dL Hct 29.1 (L) 35.6 - 45.5 % Plt 307 150 - 400 K/cumm MPV 9.2 9.1 - 12.3 fL RBC 4.03 3.90 - 5.20 M/cumm MCV 72.2 (L) 81.3 - 96.4 fL MCH 21.6 (L) 27.1 - 33.3 pg MCHC 29.9 (L) 32.3 - 35.7 g/dL RDW CV 19.0 (H) 11.1 - 14.9 % RDW SD 49.2 (H) 35.7 - 48.1 fL NRBC Abs 0.00 0.00 - 0.01 K/cumm Basic metabolic panel Collection Time: 02/04/18 12:59 AM Result Value Ref Range Sodium 139 135 - 145 mmol/L Potassium, pl 3.8 3.3 - 4.9 mmol/L Chloride 105 97 - 110 mmol/L CO2 25 22 - 32 mmol/L Anion Gap 9 2 - 15 mmol/L BUN 12 8 - 25 mg/dL Creatinine 0.75 0.60 - 1.10 mg/dL Glucose 92 70 - 199 mg/dL Calcium 9.5 8.5 - 10.3 mg/dL Ethanol Collection Time: 02/04/18 12:59 AM Result Value Ref Range Ethanol <10.0 <=10.0 mg/dL Differential, auto Collection Time: 02/04/18 12:59 AM Result Value Ref Range Neutrophil absolute 6.2 1.7 - 6.5 K/cumm Immature granulocyte absolute 0.0 0.0 - 0.1 K/cumm Lymphocytes absolute 1.9 0.8 - 3.3 K/cumm Monocyte absolute 0.9 (H) 0.2 - 0.8 K/cumm Eosinophils absolute 0.2 0.0 - 0.5 K/cumm Basophils, abs 0.0 0.0 - 0.1 K/cumm Neutrophils 67.6 % Immature granulocytes 0.3 % Lymphocytes 20.4 % Monocytes 9.4 % Eosinophils 2.1 % Basophils 0.2 % Lipase Collection Time: 02/04/18 12:59 AM Result Value Ref Range Lipase 47 10 - 99 Units/L TSH reflex to free T4 Collection Time: 02/04/18 12:59 AM Result Value Ref Range TSH 3.40 0.30 - 4.20 mcIUnit/mL Hepatic function panel Collection Time: 02/04/18 12:59 AM Result Value Ref Range Bilirubin, total 0.5 0.1 - 1.2 mg/dL Bilirubin, direct <0.2 0.1 - 0.3 mg/dL Protein, pl 7.3 6.5 - 8.5 g/dL Albumin 3.7 3.5 - 5.0 g/dL Alk phos 92 40 - 130 Units/L ALT 15 7 - 45 Units/L AST 29 10 - 45 Units/L Drug screen, urine Collection Time: 02/04/18 1:32 AM Result Value Ref Range Amphetamines, Class Presumptive Barbiturates, Class None detected Benzodiazepines None detected Cannabinoids, Screen Positive Screen Cocaine metabolite None detected Methadone None detected Opiates, Class None detected Oxycodone, ur None detected Phencyclidine, ur None detected Urinalysis reflex to microscopic Urine Collection Time: 02/04/18 1:32 AM Result Value Ref Range Color, ur Dariela Yellow Clarity, ur Cloudy (A) Clear Specific gravity, ur 1.032 (H) 1.010 - 1.025 pH, urine 5.0 Protein, ur ql 1+ (A) Negative Glucose, ur ql Negative Negative Ketones, ur Negative Negative Bilirubin, ur Negative Negative Blood, ur 2+ (A) Negative Urobilinogen, ur 2.0 (A) <2.0 mg/dL Nitrite, ur Negative Negative Leukocyte esterase, ur Negative Negative Protime-INR Collection Time: 02/04/18 1:32 AM Result Value Ref Range PT 14.5 (H) 8.5 - 13.0 sec INR 1.35 (H) 0.80 - 1.21 aPTT Collection Time: 02/04/18 1:32 AM Result Value Ref Range aPTT 23.9 (L) 25.0 - 37.0 sec Urinalysis, microscopic only Collection Time: 02/04/18 1:32 AM Result Value Ref Range WBC, ur 0-5 0 - 5 /HPF RBC, ur 0-5 0 - 5 /HPF Epithelial cells, squamous, ur 1-5 0 - 5 /HPF Bacteria, ur 3+ (A) Mucous, ur Present (A) Hyaline casts, ur 1-5 0 - 10 /LPF POCT hCG, urine Collection Time: 02/04/18 3:36 AM Result Value Ref Range HCG, ur, POC Negative Lot Number [id number] QC Backgroud Clear Acceptable QC Control Line Acceptable CBC without differential Collection Time: 02/04/18 4:42 AM Result Value Ref Range WBC 7.9 3.8 - 9.9 K/cumm Hgb 8.7 (L) 11.9 - 15.5 g/dL Hct 30.0 (L) 35.6 - 45.5 % Plt 325 150 - 400 K/cumm MPV 9.9 9.1 - 12.3 fL RBC 4.14 3.90 - 5.20 M/cumm MCV 72.5 (L) 81.3 - 96.4 fL MCH 21.0 (L) 27.1 - 33.3 pg MCHC 29.0 (L) 32.3 - 35.7 g/dL RDW CV 19.4 (H) 11.1 - 14.9 % RDW SD 49.4 (H) 35.7 - 48.1 fL NRBC Abs 0.00 0.00 - 0.01 K/cumm Principal Problem: Dementia associated with alcoholism (CMS/HCC) Active Problems: alcohol use disorder (CMS/HCC) Cognitive and behavioral changes PRIMARY DIAGNOSIS/ REASON FOR INPATIENT ADMISSION: Dementia associated with alcoholism (CMS/HCC) Assessment/Plan * Dementia associated with alcoholism (CMS/HCC) Assessment & Plan Patient has cognitive deficits with MOCHA of 16 and is a poor historian. 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 Patient may also have some grandiose delusions stating she is suing [employer] for racism after an incident during her last hospitalization and states her shot man said she may get 10-20million doll ars from the settlement. Patient does not have [...] cognitive symptoms caused by alcohol use. Rule outkorsakoff syndrome, wernicke encephalopathy alcohol use disorder (CMS/HCC) Assessment & Plan Patient has a 10 year history of substantial alcohol use, drinking 1 bottle of wine / day everyday for the last 10 years. She had been to [facility] and discharged last week, she states she [...] for chemical dependency and outpatient psychiatry at [facility] - monitor for alcohol withdrawal #marijuana use disorder - encourage cessation #amphetamine use disorder - UDS + for amphetamines , patient denies using cocaine since last week. documented in this encounter Nursing Notes * Delicia Andrade RN - 02/07/2018 3:13 PM CDT Discharge paper work discussed and signed by patient. IV has been removed and belongings have been returned. Patient will discharge home via continuous pillowcase cutter assistance. * Michelle William RN - 02/05/2018 1:42 AM CDT MD Medina notified of pt requesting ambien for sleep. Pt states she can not sleep and is depressed about her boyfriend dying. No new orders at this time. * Michelle William RN - 02/05/2018 12:11 AM CDT Assumed care of pt at this time. Agree with pm assessment. A.W. Protocol in place, elopement sitter1:1 bediside. Pt alert and oriented, restless, reporting pain 10/10 BLE, requesting morphine and ambian or melatonin for sleep. Son Ozzie arrived concerned with plan of care for pt, fearing discharge too soon and requesting a psych consult. Pt gave verbal consent for son to be involved in care. MD Best made aware of situation and will alert day MD. documented in this encounter ED Notes * Anat Mccabe RN - 02/04/2018 11:57 AM CDT Late Entry: This RN assumed care of the pt at 0600 after receiving Mariel ARMENTA. Pt was in her room naked, taking her gown on and off, pt was calm and cooperative, easily directed and follows commands. Pt changed out of the hospital gown and into her own clothing and then was found walking the back dee of EM 2, PCT Hazel asked the pt to walk in the front dee as there is construction being down in [facility] back dee, pt informed the PCT that she can walk wherever she wants as she works her. This RN andPCT informed Dr. Case and then this RN in to talk w/ the pt but the pt left the department and informed Inventory personnel Sidney that she was going to the cafeteria. Pt was seen going up the back ramp by the comm center, this RN and YeisonMARCOS went up stairs and found the pt in the gift shop and asked her to return to the department. Pt back in the department, Dr. Case in to talk w/ the pt, pt informed that she was being moved to [facility] and being placed on elopement, pt verbalized understanding. Pt moved to [facility] into room 4, report given to Zhane ARMENTA. Anat Mccabe RN 02/04/18 1211 * Rebecca Beckham RN - 02/04/2018 8:27 AM CDT Bed: ED2-25 Expected date: 02/04/18 Expected time: 7:41 AM Means of arrival: Comments: vasc lab Rebecca Beckham RN 02/04/18 0827 * Anat Mccabe RN - 02/04/2018 7:36 AM CDT Report received from Mariel ARMENTA and this RN assumed care of the pt. Pt resting comfortably on the stretcher, RR are even and unlabored, all VSS and NAD noted. Pt taken to vascular lab and then awaiting bed placement for hospital admission. Anat Mccabe RN 02/04/18 0750 * Florence Zepeda MD - 02/04/2018 12:24 AM CDT HPI Chief Complaint Patient presents with ??? Chest Pain 47 yo F pmhx hypertension, DVT/PE on warfarin c/b lymphedema, ETOH abuse, narcotic abuse presentingwith altered mental status. Brought in by family because she has been persistently drinking alcohol, has not been acting herself, and has psychiatric problems. Family states patient has been wanting to hurt people. Requesting psychiatric evaluation. State they have been to multiple hospitals for same but most hospitals have been dismissing patient has being stable from a psychiatric standpoint, has not been evaluated by psych. They are requesting that she be admitted to psych for stabilization. Denies SI, HI, AH, VH. Denies thoughts of self harm. Has access to a gun at her son's home. Also having chest pain, right leg pain which are stable for her. Feels right sided lymphedema is getting worse and endorses swelling to both legs more than normal. Has not taken her meds in 1 week (on warfarin, lasix, antihypertensive) because she has not been at home. Denies headache, shortness of breath, nausea, vomiting, diarrhea, constipation, dysuria, hematuria,fevers, chills, congestion. Patient History Patient Active Problem List Diagnosis Date Noted ??? alcohol use disorder (CMS/HCC) 02/04/2018 ??? Dementia associated with alcoholism (CMS/HCC) 02/04/2018 ??? Cognitive and behavioral changes 02/04/2018 ??? History of DVT (deep vein thrombosis) 02/04/2018 ??? Chronic acquired lymphedema 02/04/2018 ??? Hypertension 02/04/2018 ??? Anemia 02/04/2018 ??? Polysubstance abuse (CMS/HCC) 02/04/2018 Past Medical History: Diagnosis Date ??? Hypertension ??? Lymph edema Past Surgical History: Procedure Laterality Date ??? SECTION ??? GASTRIC BYPASS History reviewed. No pertinent family history. Social History Substance Use Topics ??? Smoking status: Never Smoker ??? Smokeless tobacco: Never Used ??? Alcohol use Not on file Social History Social History Narrative Born and raised in [place] [facility] [facility], no abuse during childhood, has masters degree in finance. Living with son, unemployed, has firearms at home. Has 3 children oldest is 33, youngest is 9. Significant substance use, alcohol, pain pills, marijuana , see HPI for more details. Denies legal history, single, twice. Review of Systems Review of Systems Constitutional: Negative for appetite change and chills. HENT: Negative for congestion and sore throat. Eyes: Negative for photophobia and visual disturbance. Respiratory: Negative for chest tightness, shortness of breath and wheezing. Cardiovascular: Positive for chest pain and leg swelling. Negative for palpitations. Gastrointestinal: Negative for abdominal distention, abdominal pain, constipation, nausea and vomiting. Endocrine: Negative. Genitourinary: Negative for dysuria and flank pain. Musculoskeletal: Negative for back pain and neck pain. Leg swelling Skin: Negative for rash and wound. Allergic/Immunologic: Negative. Neurological: Negative for dizziness, tremors, weakness, light-headedness and numbness. Hematological: Negative. Psychiatric/Behavioral: Positive for confusion. Negative for agitation and self-injury. Physical Exam ED Triage Vitals Temp Pulse Resp BP SpO2 02/03/18195502/[id number] 37.2 ??C (99 ??F) 85 17 155/82 100 % Temp src Heart Rate Source Patient Position BP Location FiO2 (%) -- 02/04/18 0625 02/04/18 0625 02/04/18 0625 -- Monitor Lying Left arm Physical Exam Constitutional: She is oriented to person, place, and time. She appears well- developed and well-nourished. HENT: Head: Normocephalic. Nose: Nose normal. Eyes: Pupils are equal, round, and reactive to light. Conjunctivae are normal. Neck: Normal range of motion. Cardiovascular: Normal rate, regular rhythm, normal heart sounds and intact distal pulses. Exam reveals no gallop and no friction rub. No murmur heard. Pulmonary/Chest: Effort normal and breath sounds normal. No respiratory distress. She has no wheezes. She exhibits no tenderness. Abdominal: Soft. Bowel sounds are normal. She exhibits no distension. There is no tenderness. Musculoskeletal: Normal range of motion. She exhibits edema and tenderness. She exhibits no deformity. Significant swelling to RLE, mild pitting edema to LLE. TTP of bilateral legs Neurological: She is alert and oriented to person, place, and time. No cranial nerve deficit or sensory deficit. She exhibits normal muscle tone. Skin: Skin is warm and dry. Capillary refill takes less than 2 seconds. No erythema. Vitals reviewed. MDM MDM Number of Diagnoses or Management Options Amphetamine abuse (CMS/HCC): Cannabis abuse: ETOH abuse: Diagnosis management comments: 47 yo F hx ETOH abuse, DVT/PE, HTN p/w psychiatric complaint. Evaluated by psychiatry who felt she was presenting with dementia but from a psychiatric standpoint is notacutely ill. MOCA 16. Psychiatry felt patient would benefit from admission to medicine for evaluation of her altered mental status/worsening dementia. Presumptive diagnosis of Wernicke's encephalopathy, will also evaluate for PE/DVT as patient has not been compliant with anticoagulation meds. Will treat with thiamine/folate, lovenox, admit to medicine for additional workup. Amount and/or Complexity of Data Reviewed Clinical lab tests: reviewed Tests in the radiology section of CPT??: reviewed Tests in the medicine section of CPT??: reviewed Attending Summary of Care ED Course as of Feb 04 803 Time: 02/04 113 Comment: 47 yo F desiring psych eval bc wants to hurt people in general, no individuals per se, chronic etoh/opioid abuse issues, son found in car etoh today, brought by friend for psych eval/admit. C/o cp x 10yrs and h/o dvt. Have been to multiple EDs c/o same sxs and discharged. Exam poor insight, nad/not ill appearing, does not appear intoxicated, not RTIS, no pm agitation/retardation, benignc ardiopulm/abd exams, +asymmetric RLE swelling w/o errythema. IMP: varying complaints unsure what's chronic vs new if pe/dvt/med noncompliance/worsenign PE r/o acs vs atypical cp and chronic leg pain or worsening dvt vs psych component/depression/anxiety to have psych eval vs substance use/etoh/DTs to partial korsakoff trial vs longer term cognitive impairment/dementia? To give trial high dose thiamine inpatient and cooroborate collateral info from family (not present and pt giving random numbers thinking they are the contacts per psych). By: Baljeet Torres MD Time: 02/04 0456 Comment: Patient scored 16 on MOCA By: Florence Zepeda MD Amphetamine abuse (CMS/HCC) Cannabis abuse ETOH abuse Transient alteration of awareness Florence Zepeda MD Resident 02/04/18 0745 Florence Zepeda MD Resident 02/04/18 0803 Cosigned by Baljeet Torres MD at 02/04/2018 8:17 AM CDT Associated attestation - Baljeet Torres MD - 02/04/2018 8:17 AM CDT I have seen and examined the patient on 02/04/2018. I reviewed the resident's note and agree with the findings and plan of care as documented in the resident's note with modifications as documented in my note. * Vero Trujillo RN - 02/04/2018 12:13 AM CDT Bed: ED2-25 Expected date: Expected time: Means of arrival: Car Comments: Vero Trujillo RN 02/04/18 0013 * Nelsy Dillon RN - 02/03/2018 7:57 PM CDT Patient presents with left sided chest pain radiating to left arm. Patient denies nausea and vomiting. Patient states she needs to see a psychiatrist. Denies SI/HI. States she has been under a lot ofstress lately. Patient states she wants to detox for alcohol. Per son, patient hasn't been acting right at home. Patient son states that she was found in a car this morning by a friend after she was drinking. Patient call and cooperative at this time. Alert and oriented x4 documented in this encounter Miscellaneous Notes * Plan of Care - Delicia Andrade RN - 02/07/2018 3:02 PM CDT Health Behavior: ??? Understanding of discharge needs will improve Completed Health Behavior: ??? Ability to manage health-related needs will improve Completed Lack of Knowledge: ??? Knowledge on safety and abstaining from self-injurious behavior will increase Completed ??? Knowledge of therapies/resources will increase Completed Lack of Knowledge: ??? Ability to state ways to decrease the risk of falls will improve Completed Safety: ??? Will remain free from falls Completed ??? Will remain free from injury from falls Completed ??? Will remain free from falls and injury in home environment Completed Sensory: ??? Pain level will decrease Completed Goals: Patient will have little or no withdrawal symptoms Summary: Patient has not shown or had any symptoms of alcohol withdrawal. Patient is getting scheduled librium and will discharged home with tapered librium. Will continue to monitor. * Hospital Course - Fátima Aldridge MD - 02/07/2018 2:36 PM CDT Ms. Addison was admitted for alcohol detox and mood disorder. Psychiatry evaluated her in the ED and felt her presentation was not consistent with manic or psychotic behavior, and that it did not meet the criteria for psychiatric admission. I confirmed with her PCP that she never exhibited similar behavior in the past, and had been treated with lexapro and prn xanax for depression/anxiety in the past. While on the floor, she was cooperative with staff and with taking medications as prescribed. She was initially maintained on elopement precautions, which were discontinued and she remained cooperative and appropriate. She was initially started on the CIWA protocol, but was switched to a scheduled librium taper as her baseline tremor was triggering the protocol without associated autonomic symptoms. She denied any hallucinations and had no seizures throughout her stay. She was also given high-dose thiamine repletion and discharged on thiamine. Her sons stated that after discharge, she would have 24 hour supervision for the remainder of her librium taper, and that one of them would keepthe pills and give them to her when they were due. I counseled her on alcohol and drug cessation. At discharge, she denied any SI/HI and seemed motivated to complete her taper and remain off alcohol and other drugs; her sons expressed willingness to help her explore avenues for psychiatric care and potential substance rehab. Additionally, she had been out of her warfarin for some time, which she is taking due to DVTs (mostrecent 11/2017). She was on lovenox in the hospital and switched to xarelto at discharge as she did not have a PCP to follow her INR. She was provided counseling on how to take xarelto, and her sons were also informed of the change in medication. She plans to find a PCP after discharge. Finally, the lymphedema team saw her for leg pain and taught her how to wrap her legs. Her leg painimproved significantly with this. She was provided with a prescription for outpatient lymphedema evaluation; unfortunately, she left without it, so a copy was mailed to her home address. * Assessment & Plan Note - VelFátima macias MD - 02/07/2018 1:27 PM CDTAssociated Problem(s): Polysubstance abuse (CMS/HCC) (HCC) Formerly reports using her prescriptions for vicodin and xanax in conjunction with alcohol. Now endorses trying cocaine and ecstasy recently which she has not previously tried. Endorses smoking marijuana more often recently as well. UDS with +MJ and amphetamines. -SW for resources -Avoid opioids * Assessment & Plan Note - Fátima Aldridge MD - 02/07/2018 1:27 PM CDTAssociated Problem(s): Hypertension Cont home losartan HCTZ * Assessment & Plan Note - Fátima Aldridge MD - 02/07/2018 1:26 PM CDTAssociated Problem(s): History of DVT (deep vein thrombosis) History of multiple recurrent DVTs. On life long anticoagulation per patient and family, confirmed on phone with PCP office. No records in our system as she recently moved here from [place]. Pt reports missing 1 week of warfarin after running out two weeks ago -Does not have PCP follow up yet and INR not therapeutic. Discussed switching to DOAC with patient,which she would prefer. Will change to xarelto * Assessment & Plan Note - Fátima Aldridge MD - 02/07/2018 1:26 PM CDTAssociated Problem(s): Lymphedema of right lower extremity Bilateral LE. Would likely benefit from lymphedema wraps -Consult placed for lymphedema PT/OT -Can cont home lasix 40mg (confirmed w/ pharmacy) * Assessment & Plan Note - Fátima Aldridge MD - 02/07/2018 1:25 PM CDTAssociated Problem(s): alcohol use disorder (CMS/HCC) Everyday drinker, last drink 02/03 AM. H/o EtOH withdrawal, but denies DT's. -Changed to scheduled librium taper, which would end on Saturday. Discussed with son that he needs tokeep the bottle and give her the medications as scheduled. -Discharge on PO thiamine * Assessment & Plan Note - Fátima Aldridge MD - 02/07/2018 1:25 PM CDTAssociated Problem(s): Cognitive and behavioral changes Progressive decline since 11/2017. 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 Disinhibition with worsening EtOH abuse, new PSA (cocaine, marijuana, ectstasy), stealing family members cars, hitchhiking, hypersexual behavior. Ddx includes: Drug-induced vs Wernicke-Korsakoff (either from EtOH ornutritional deficiency 2/2 bypass surgery). Head CT no acute intracranial process, RPR HIV neg, B12and TSH wnl -Cont lexapro -Psych evaluated in ED, provided patient with outpatient resources -Will discharge on PO thiamine * Subjective & Objective - Fátima Aldridge MD - 02/07/2018 1:23 PM CDT Daily Progress Note Division of Hospital Medicine Name: Tiarra Addison Today: February 07, 2018 : 1970 Age: 47 y.o. female Admit: 02/03/2018 Bed: [id number] Subjective Chief complaint: None Interval History: No acute events overnight. Transitioned to scheduled librium taper yesterday and is doing well. Does not have new PCP yet. No new complaints today. Objective Medications: Scheduled: chlordiazePOXIDE 25 mg oral Q6H enoxaparin 0.75 mg/kg subcutaneous Q12H [facility] escitalopram 20 mg oral Daily furosemide 40 mg oral Daily hydroCHLOROthiazide 12.5 mg oral Daily losartan 50 mg oral Daily naproxen 500 mg oral Once sodium chloride 0.9% 0.5-20 mL intra-catheter Q8H [facility] thiamine 250 mg intravenous Q24H [facility] warfarin 5 mg oral Daily-1800 Infusions: PRN: ??? acetaminophen ??? benzocaine ??? ondansetron ODT OR ondansetron ??? sodium chloride 0.9% Vitals: 24hr Min/Max: Temp Min: 36.7 ??C (98.1 ??F) Max: 37.1 ??C (98.8 ??F) Pulse Min: 81 Max: 94 BP Min: 112/66 Max: 149/92 Resp Min: 18 Max: 24 SpO2 Min: 98 % Max: 100 % Most Recent: Vitals: 02/07/18 1300 BP: 122/80 Pulse: 94 Resp: 20 Temp: 37.1 ??C (98.8 ??F) SpO2: 98% Intake/Output Summary (Last 24 hours) at 02/07/18 1323 Last data filed at 02/06/18 2215 Gross per 24 hour Intake 10 ml Output 0 ml Net 10 ml Physical Exam Gen: NAD HEENT: NCAT, PERRL, anicteric, MMM Neck: Supple Cardiac: RRR no m/g/r Pulm: CTAB no w/r/r Ext: lymphedema wraps bilaterally Neuro: A&Ox4, face symmetric, moving all extremities Psych: Expansive mood Lab/Diagnostic Review: Recent Results (from the past 24 hour(s)) Creatinine Collection Time: 02/06/18 8:01 PM Result Value Ref Range Creatinine 0.82 0.60 - 1.10 mg/dL CBC without differential Collection Time: 02/06/18 8:01 PM Result Value Ref Range WBC 8.0 3.8 - 9.9 K/cumm Hgb 8.3 (L) 11.9 - 15.5 g/dL Hct 29.0 (L) 35.6 - 45.5 % Plt 299 150 - 400 K/cumm MPV 9.4 9.1 - 12.3 fL RBC 3.95 3.90 - 5.20 M/cumm MCV 73.4 (L) 81.3 - 96.4 fL MCH 21.0 (L) 27.1 - 33.3 pg MCHC 28.6 (L) 32.3 - 35.7 g/dL RDW CV 19.3 (H) 11.1 - 14.9 % RDW SD 50.2 (H) 35.7 - 48.1 fL NRBC Abs 0.00 0.00 - 0.01 K/cumm Protime-INR Collection Time: 02/06/18 8:01 PM Result Value Ref Range PT 14.1 (H) 8.5 - 13.0 sec INR 1.31 (H) 0.80 - 1.21 I have reviewed the laboratory results. * Plan of Care - Kimmy Richard PT - 02/07/2018 11:20 AM CDT Problem: Compromised Skin Integrity Goal: STG - Patient will maintain good skin integrity Outcome: Progressing Problem: PT Misc Goal: STG - Misc 2 Decreased girth on right LE by 25cm, on left LE by 15cm Outcome: Progressing Goal: STG - Misc 3 Pt to demonstrate understanding of CDT program and appropriate follow up and treatment recommendations. Outcome: Progressing Goal: STG - Misc 4 Pt to verbalize understanding of purpose, care, and wearing of compression garment. Outcome: Progressing Comments: Pt transitioned to Tubig[employer] for home use until able to schedule OP appointment. Provided size F on L side and size J on R with foam at ankle, size F on foot. Pt verbalized understanding, has handout from previous visit, and stated that she has a facility close to home that she plans on calling to set up an appointment. * Plan of Care - Bonita Linda RN - 02/07/2018 4:39 AM CDT Health Behavior: ??? Understanding of discharge needs will improve Progressing Health Behavior: ??? Ability to manage health-related needs will improve Progressing Lack of Knowledge: ??? Knowledge on safety and abstaining from self-injurious behavior will increase Progressing ??? Knowledge of therapies/resources will increase Progressing Lack of Knowledge: ??? Ability to state ways to decrease the risk of falls will improve Progressing Safety: ??? Will remain free from falls Progressing ??? Will remain free from injury from falls Progressing ??? Will remain free from falls and injury in home environment Progressing Sensory: ??? Pain level will decrease Progressing Goals: Clinical Goals for the Shift: Patient will sleep comfortably throughout the night Summary: Patient has slept comfortably throughout the night reporting no pain. * Plan of Care - Delicia Andrade RN - 02/06/2018 4:59 PM CDT Health Behavior: ??? Understanding of discharge needs will improve Progressing Health Behavior: ??? Ability to manage health-related needs will improve Progressing Lack of Knowledge: ??? Knowledge on safety and abstaining from self-injurious behavior will increase Progressing ??? Knowledge of therapies/resources will increase Progressing Lack of Knowledge: ??? Ability to state ways to decrease the risk of falls will improve Progressing Safety: ??? Will remain free from falls Progressing ??? Will remain free from injury from falls Progressing ??? Will remain free from falls and injury in home environment Progressing Sensory: ??? Pain level will decrease Progressing Goals: Clinical Goals for the Shift: patient will report improved pain control Summary: Patient reported 8/10 pain of bilateral legs with a goal of 4/10. Patient received PRN Tylenol and had legs re wrapped by lymphedema nurse. Patient stated she no longer had pain. Will continue to monitor. * Assessment & Plan Note - Fátima Aldridge MD - 02/06/2018 1:03 PM CDTAssociated Problem(s): Polysubstance abuse (CMS/HCC) (HCC) Formerly reports using her prescriptions for vicodin and xanax in conjunction with alcohol. Now endorses trying cocaine and ecstasy recently which she has not previously tried. Endorses smoking marijuana more often recently as well. UDS with +MJ and amphetamines. -SW for resources -Avoid opioids * Assessment & Plan Note - Fátima Aldridge MD - 02/06/2018 1:02 PM CDTAssociated Problem(s): Hypertension Cont home losartan HCTZ * Assessment & Plan Note - Fátima Aldridge MD - 02/06/2018 1:02 PM CDTAssociated Problem(s): History of DVT (deep vein thrombosis) History of multiple recurrent DVTs. On life long anticoagulation per patient and family, confirmed on phone with PCP office. No records in our system as she recently moved here from [place]. Pt reports missing 1 week of warfarin after running out two weeks ago -Cont lovenox, warfarin, goal INR 2-3 * Assessment & Plan Note - Fátima Aldridge MD - 02/06/2018 1:02 PM CDTAssociated Problem(s): Lymphedema of right lower extremity Bilateral LE. Would likely benefit from lymphedema wraps -Consult placed for lymphedema PT/OT -Can cont home lasix 40mg (confirmed w/ pharmacy) * Assessment & Plan Note - Fátima Aldridge MD - 02/06/2018 1:02 PM CDTAssociated Problem(s): alcohol use disorder (CMS/HCC) Everyday drinker, last drink 02/03 AM. H/o EtOH withdrawal, but denies DT's. -CIWA protocol, still using librium q4 and would be concerned about misuse as an outpatient -High-dose thiamine * Assessment & Plan Note - Fátima Aldridge MD - 02/06/2018 1:01 PM CDTAssociated Problem(s): Cognitive and behavioral changes Progressive decline since 11/2017. 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 Disinhibition with worsening EtOH abuse, new PSA (cocaine, marijuana, ectstasy), stealing family members cars, hitchhiking, hypersexual behavior. Ddx includes: Drug-induced vs Wernicke-Korsakoff (either from EtOH ornutritional deficiency 2/2 bypass surgery) -Head CT no acute intracranial process, RPR HIV neg, B12 and TSH wnl -Per OSH physician, was on lexapro, restarted today -Psych evaluated in ED, provided patient with outpatient resources -Continue high-dose thiamine * Subjective & Objective - Fátima Aldridge MD - 02/06/2018 12:56 PM CDT Daily Progress Note Division of Hospital Medicine Name: Tiarra Addison Today: February 06, 2018 : 1970 Age: 47 y.o. female Admit: 02/03/2018 Bed: [id number] Subjective Chief complaint: None Interval History: Feeling improved with lymphedema wraps. Unfortunately still using librium q4 hours, triggered by tremors and sweating. Asked patient and while she sometimes has tremors, these are worse than normal. No hallucinations or seizures. Received outpatient records and has not had similarpresentation in the past. Was on lexapro and prn xanax as an outpatient for depression/anxiety. Prior UDS negative, though did have morphine in a recent UDS which would not have come from outpatient prescription, unclear if she had received during a hospitalization as this was not commented on in PCP records. Objective Medications: Scheduled: enoxaparin 0.75 mg/kg subcutaneous Q12H [facility] escitalopram 20 mg oral Daily furosemide 40 mg oral Daily hydroCHLOROthiazide 12.5 mg oral Daily losartan 50 mg oral Daily naproxen 500 mg oral Once sodium chloride 0.9% 0.5-20 mL intra-catheter Q8H [facility] [START ON 02/07/2018] thiamine 250 mg intravenous Q24H [facility] thiamine 500 mg intravenous TID warfarin 5 mg oral Daily-1800 Infusions: PRN: ??? acetaminophen ??? chlordiazePOXIDE OR chlordiazePOXIDE OR [DISCONTINUED] LORazepam OR [DISCONTINUED]LORazepam OR [DISCONTINUED] LORazepam OR [DISCONTINUED] LORazepam ??? ondansetron ODT OR ondansetron ??? sodium chloride 0.9% Vitals: 24hr Min/Max: Temp Min: 36.7 ??C (98.1 ??F) Max: 37.1 ??C (98.8 ??F) Pulse Min: 83 Max: 99 BP Min: 122/74 Max: 153/85 Resp Min: 18 Max: 20 SpO2 Min: 100 % Max: 100 % Most Recent: Vitals: 02/06/18 1040 BP: 127/78 Pulse: 83 Resp: 18 Temp: 37.1 ??C (98.8 ??F) SpO2: 100% Intake/Output Summary (Last 24 hours) at 02/06/18 1256 Last data filed at 02/05/18 1630 Gross per 24 hour Intake 100 ml Output 0 ml Net 100 ml Physical Exam Gen: NAD HEENT: NCAT, PERRL, anicteric, MMM Neck: Supple Cardiac: RRR no m/g/r Pulm: CTAB no w/r/r Abd: Soft, NTND, +BS Ext: lymphedema wraps bilaterally Skin: No new rashes or lesions Neuro: A&Ox4, face symmetric, moving all extremities Psych: Expansive mood Lab/Diagnostic Review: Recent Results (from the past 24 hour(s)) Creatinine Collection Time: 02/06/18 12:23 AM Result Value Ref Range Creatinine 1.14 (H) 0.60 - 1.10 mg/dL CBC without differential Collection Time: 02/06/18 12:23 AM Result Value Ref Range WBC 8.0 3.8 - 9.9 K/cumm Hgb 9.0 (L) 11.9 - 15.5 g/dL Hct 31.1 (L) 35.6 - 45.5 % Plt 328 150 - 400 K/cumm MPV 9.5 9.1 - 12.3 fL RBC 4.26 3.90 - 5.20 M/cumm MCV 73.0 (L) 81.3 - 96.4 fL MCH 21.1 (L) 27.1 - 33.3 pg MCHC 28.9 (L) 32.3 - 35.7 g/dL RDW CV 19.6 (H) 11.1 - 14.9 % RDW SD 50.7 (H) 35.7 - 48.1 fL NRBC Abs 0.00 0.00 - 0.01 K/cumm Protime-INR Collection Time: 02/06/18 12:23 AM Result Value Ref Range PT 14.1 (H) 8.5 - 13.0 sec INR 1.31 (H) 0.80 - 1.21 I have reviewed the laboratory results. * Plan of Care - Kimmy Maki, PT - 02/06/2018 11:43 AM CDT Problem: Compromised Skin Integrity Goal: STG - Patient will maintain good skin integrity Outcome: Progressing Problem: PT Misc Goal: STG - Misc 1 Pt to tolerate compression bandaging for at least 24 hours without complaints or adverse effects. Outcome: Progressing Goal: STG - Misc 2 Decreased girth on right LE by 25cm, on left LE by 15cm Outcome: Progressing Goal: STG - Misc 3 Pt to demonstrate understanding of CDT program and appropriate follow up and treatment recommendations. Outcome: Progressing * Plan of Care - Bointa Linda RN - 02/06/2018 3:33 AM CDT Health Behavior: ??? Understanding of discharge needs will improve Progressing Health Behavior: ??? Ability to manage health-related needs will improve Progressing Lack of Knowledge: ??? Knowledge on safety and abstaining from self-injurious behavior will increase Progressing ??? Knowledge of therapies/resources will increase Progressing Lack of Knowledge: ??? Ability to state ways to decrease the risk of falls will improve Progressing Safety: ??? Will remain free from falls Progressing ??? Will remain free from injury from falls Progressing ??? Will remain free from falls and injury in home environment Progressing Sensory: ??? Pain level will decrease Progressing Goals: Clinical Goals for the Shift: Patient will report decreased pain Summary: Patient observed sleeping and patient stated she is not in much pain. * Plan of Care - Tito Owens RN - 02/05/2018 4:10 PM CDT Health Behavior: ??? Understanding of discharge needs will improve Progressing Health Behavior: ??? Ability to manage health-related needs will improve Progressing Lack of Knowledge: ??? Knowledge on safety and abstaining from self-injurious behavior will increase Progressing ??? Knowledge of therapies/resources will increase Progressing Lack of Knowledge: ??? Ability to state ways to decrease the risk of falls will improve Progressing Safety: ??? Will remain free from falls Progressing ??? Will remain free from injury from falls Progressing ??? Will remain free from falls and injury in home environment Progressing Sensory: ??? Pain level will decrease Progressing Goals: Clinical Goals for the Shift: Patient will report decrease in pain and feel less anxious Summary: Patient has reported decreased pain with lymphedema leg wraps. Patient says feeling less anxious with librium. * Assessment & Plan Note - Fátima Aldridge MD - 02/05/2018 2:06 PM CDTAssociated Problem(s): Polysubstance abuse (CMS/HCC) (HCC) Formerly reports using her prescriptions for vicodin and xanax in conjunction with alcohol. Now endorses trying cocaine and ecstasy recently which she has not previously tried. Endorses smoking marijuana more often recently as well. UDS with +MJ and amphetamines. -SW for resources -Avoid opioids * Assessment & Plan Note - Fátima Aldridge MD - 02/05/2018 2:05 PM CDTAssociated Problem(s): History of DVT (deep vein thrombosis) History of multiple recurrent DVTs. On life long anticoagulation per patient and family, confirmed on phone with PCP office. No records in our system as she recently moved here from [place]. Pt reports missing 1 week of warfarin after running out two weeks ago -Cont lovenox, warfarin, goal INR 2-3 * Assessment & Plan Note - Fátima Aldridge MD - 02/05/2018 2:05 PM CDTAssociated Problem(s): Hypertension Cont home losartan HCTZ * Assessment & Plan Note - Fátima Aldridge MD - 02/05/2018 2:05 PM CDTAssociated Problem(s): Lymphedema of right lower extremity Bilateral LE. Would likely benefit from lymphedema wraps -Consult placed for lymphedema PT/OT -Can cont home lasix 40mg (confirmed w/ pharmacy) * Assessment & Plan Note - Fátima Aldridge MD - 02/05/2018 2:04 PM CDTAssociated Problem(s): alcohol use disorder (CMS/HCC) Everyday drinker, last drink 1029 AM. H/o EtOH withdrawal, but denies DT's. -CIWA protocol -High-dose thiamine -SW consult for outpatient resources * Assessment & Plan Note - Fátima Aldridge MD - 02/05/2018 2:03 PM CDTAssociated Problem(s): Cognitive and behavioral changes Progressive decline since 11/2017. 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 Disinhibition with worsening EtOH abuse, new PSA (cocaine, marijuana, ectstasy), stealing family members cars, hitchhiking, hypersexual behavior. Ddx includes: Drug-induced vs Wernicke-Korsakoff (either from EtOH ornutritional deficiency 2/2 bypass surgery) -Head CT no acute intracranial process, RPR HIV neg, B12 and TSH wnl -Per OSH physician, was on lexapro. Still awaiting records for dosing, etc -Psych evaluated in ED, will touch base with them tomorrow. -Continue high-dose thiamine * Subjective & Objective - Fátima Aldridge MD - 02/05/2018 2:00 PM CDT Daily Progress Note Division of Hospital Medicine Name: Tiarra Addison Today: February 05, 2018 : 1970 Age: 47 y.o. female Admit: 02/03/2018 Bed: [id number] Subjective Chief complaint: Leg pain Interval History: No acute events overnight, though was requesting morphine and ambien from [facility]. This morning mental status seems largely unchanged. Still trying to get records from prior PCP. Objective Medications: Scheduled: enoxaparin 0.75 mg/kg subcutaneous Q12H [facility] furosemide 40 mg oral Daily hydroCHLOROthiazide 12.5 mg oral Daily losartan 50 mg oral Daily naproxen 500 mg oral Once sodium chloride 0.9% 0.5-20 mL intra-catheter Q8H [facility] [START ON 02/07/2018] thiamine 250 mg intravenous Q24H [facility] thiamine 500 mg intravenous TID warfarin 5 mg oral Daily-1800 Infusions: PRN: ??? acetaminophen ??? chlordiazePOXIDE OR chlordiazePOXIDE OR LORazepam OR LORazepam OR LORazepam OR LORazepam ??? ondansetron ODT OR ondansetron ??? sodium chloride 0.9% Vitals: 24hr Min/Max: Temp Min: 36.6 ??C (97.9 ??F) Max: 37.2 ??C (99 ??F) Pulse Min: 77 Max: 90 BP Min: 120/76 Max: 151/86 Resp Min: 16 Max: 20 SpO2 Min: 100 % Max: 100 % Most Recent: Vitals: 02/05/18 1200 BP: 146/84 Pulse: 88 Resp: 20 Temp: 37 ??C (98.6 ??F) SpO2: Intake/Output Summary (Last 24 hours) at 02/05/18 1400 Last data filed at 02/05/18 1019 Gross per 24 hour Intake 340 ml Output 150 ml Net 190 ml Physical Exam Gen: NAD HEENT: NCAT, PERRL, anicteric, MMM Neck: Supple Cardiac: RRR no m/g/r Pulm: CTAB no w/r/r Abd: Soft, NTND, +BS Ext: significant lymphedema, R calf TTP without erythema or warmth Skin: No new rashes or lesions Neuro: A&Ox4, face symmetric, moving all extremities Psych: Expansive mood Lab/Diagnostic Review: Recent Results (from the past 24 hour(s)) Creatinine Collection Time: 02/04/18 8:12 PM Result Value Ref Range Creatinine 0.87 0.60 - 1.10 mg/dL CBC without differential Collection Time: 02/04/18 8:21 PM Result Value Ref Range WBC 7.8 3.8 - 9.9 K/cumm Hgb 8.9 (L) 11.9 - 15.5 g/dL Hct 30.7 (L) 35.6 - 45.5 % Plt 291 150 - 400 K/cumm MPV 9.6 9.1 - 12.3 fL RBC 4.16 3.90 - 5.20 M/cumm MCV 73.8 (L) 81.3 - 96.4 fL MCH 21.4 (L) 27.1 - 33.3 pg MCHC 29.0 (L) 32.3 - 35.7 g/dL RDW CV 19.6 (H) 11.1 - 14.9 % RDW SD 51.6 (H) 35.7 - 48.1 fL NRBC Abs 0.00 0.00 - 0.01 K/cumm aPTT Collection Time: 02/04/18 8:21 PM Result Value Ref Range aPTT 29.6 25.0 - 37.0 sec Protime-INR Collection Time: 02/04/18 8:21 PM Result Value Ref Range PT 14.1 (H) 8.5 - 13.0 sec INR 1.31 (H) 0.80 - 1.21 Creatinine Collection Time: 02/05/18 5:16 AM Result Value Ref Range Creatinine 0.91 0.60 - 1.10 mg/dL CBC without differential Collection Time: 02/05/18 5:16 AM Result Value Ref Range WBC 7.8 3.8 - 9.9 K/cumm Hgb 9.1 (L) 11.9 - 15.5 g/dL Hct 30.8 (L) 35.6 - 45.5 % Plt 308 150 - 400 K/cumm MPV 9.8 9.1 - 12.3 fL RBC 4.22 3.90 - 5.20 M/cumm MCV 73.0 (L) 81.3 - 96.4 fL MCH 21.6 (L) 27.1 - 33.3 pg MCHC 29.5 (L) 32.3 - 35.7 g/dL RDW CV 19.3 (H) 11.1 - 14.9 % RDW SD 50.0 (H) 35.7 - 48.1 fL NRBC Abs 0.00 0.00 - 0.01 K/cumm I have reviewed the laboratory results. Imaging Results: US Vein Duplex Lower Extremity Bilateral Complete [facility] - Department of Vascular Surgery, Vascular Laboratory [address] [place] [id number] Lower Extremity Venous Ultrasound Report Patient Name: TIARRA ADDISON : 1970 (47y 1m) Study Date: 02/04/2018 7:50:01 AM Gender: F Tech: TM Location: [id number] Ref.Provider: FÁTIMA ALDRIDGE Quality: Adequate Order Provider: FLORENCE ZEPEDA Procedures: Vascular Report: Venous Duplex imaging was performed bilaterally in the lower extremities. The common femoral, femoral, popliteal, posterior tibial, peroneal veins were evaluated for patency, spontaneity and phasicity with Doppler, compression and augmentation maneuvers. Great saphenous vein proximal at the junction was evaluated with compression maneuvers. Indications: HX of DVT. Findings: Performing [place] Gatherer: Evelyn Murdock RVT. Bilateral: Venous Doppler signals [...] [facility] 2018-02-04 20:48:13 CDT CC: CC: CT Head WO Contrast Narrative: EXAMINATION: Noncontrast head CT HISTORY:47-year-old man with hypertension, DVT/PE, and alcohol and substance abuse presented with altered mental status. TECHNIQUE: Noncontrast CT of the brain was performed with images acquired from skull base to vertex. COMPARISON: None FINDINGS: Topogram demonstrates no lytic lesions or fractures. There is no acute intracranial hemorrhage. Ventricles are of normal size and morphology. No mass effect or midline shift is present. Mineralization in basal ganglia is noted. The li-white matter differentiation is normal. The visualized portions of the orbits are normal. The visualized portions of the mastoids are normal. The visualized portions of the paranasal sinuses are normal. No fractures are identified. Impression: No acute intracranial abnormality. Dictated by: Ran Rinaldi Electronically signed by: Jonn Catalan M.D, PHD XR Chest Pa Lateral 2 Vw Narrative: EXAMINATION: XR CHEST PA LATERAL 2 VIEWS HISTORY: Left-sided chest pain extending to the left arm COMPARISON: None Impression: Two views of the chest are submitted for interpretation. No pneumothorax, pleural effusion or focal consolidation. There is mild left basilar atelectasis. Heart size is within normal limits. Dictated by: Tiburcio Lock M.D. , PHD Electronically signed by: Keshawn Mandujano M.D. CT Chest PE W Contrast Narrative: EXAMINATION: Computed tomography of the chest with intravenous contrast HISTORY: hx PE now with chest pain, not taking warfarin TECHNIQUE: Transaxial computed tomographic images of the chest were obtained with intravenous contrast according to the standard protocol after the uneventful administration of 100 mL Opti-Ray 350 intravenous contrast. COMPARISON: None FINDINGS: Heart size is normal. No pericardial effusion. Thoracic aorta is of normal course and caliber. Major aortic branches are patent. No central, lobar or segmental pulmonary embolism. Apparent filling defects in the subsegmental arteries in the lower lobes for reference slice position -576.5 in the right lower lobe, are favored to represent motion artifact. There are calcified mediastinal lymph nodes. No mediastinal, supraclavicular or axillary lymphadenopathy by size criteria. Thyroid is normal. Esophagus appears normal. Central airways are patent with no endobronchial mass. There is left basilar granuloma. Mild left basilar atelectasis noted. No pleural effusion. No pneumothorax. Limited evaluation of the upper abdomen demonstrate no acute finding. There is mild nodular thickening of the right adrenal gland. Postsurgical changes of prior gastric bypass surgery are noted. Bone windows demonstrate no suspicious osseous lesion. Impression: No pulmonary embolism. Dictated by: Tiburcio Lock M.D. , PHD Electronically signed by: Keshawn Mandujano M.D. * Plan of Care - Kimmy Yañez RN - 02/04/2018 10:33 PM CDT Health Behavior: ??? Understanding of discharge needs will improve Progressing Health Behavior: ??? Ability to manage health-related needs will improve Progressing Lack of Knowledge: ??? Knowledge on safety and abstaining from self-injurious behavior will increase Progressing ??? Knowledge of therapies/resources will increase Progressing Lack of Knowledge: ??? Ability to state ways to decrease the risk of falls will improve Progressing Safety: ??? Will remain free from falls Progressing ??? Will remain free from injury from falls Progressing ??? Will remain free from falls and injury in home environment Progressing Sensory: ??? Pain level will decrease Progressing Goals: Clinical Goals for the Shift: Report decrease in pain Summary: * Plan of Care - Anna Degroot RN - 02/04/2018 5:53 PM CDT Goals: Clinical Goals for the Shift: Report decrease in pain Summary: Patient admitted to unit with S1 sitter d/t wandering around and elopement risk. VSS. KASPER made of aware of patient being on floor. Will continue to monitor. * Significant Event - Fátima Aldridge MD - 02/04/2018 2:49 PM CDT Accept Note Division of Hospital Medicine Name: Tiarra Addison Today: February 04, 2018 : 1970 Age: 47 y.o. female I assumed care of Tiarra Addison on 02/04/18. I have seen and examined the patient and the medical record. I agree with the Admission H&P with date of service today. Patient continues to perseverate on leg pain, generally denies psychiatric symptoms and states she is in the ED because her family wanted her to have a mental evaluation. Spoke to son over the phone and he confirmed she has been stealing cars, having multiple sexual partners, obtaining pain medications and other illicit drugs despite high doses being prescribed by PCP in [place], heavy alcohol abuse (states at least 2 years). Son thinks symptoms started 1-2 months ago in [place], but she was having some behavioral abnormalities prior to that. Per ED staff, she has been removing clothes and wandering around back hallways of ED/up to the [employer] shop, claiming she works at [employer]. Currently on elopement precautions and given dose of ativan for behavioral abnormalities. Per ED staff, has notexhibited signs of alcohol withdrawal yet. Exam: NAD, obese, RRR, CTAB, significant lymphedema with tenderness on L leg, no erythema or warmth. A&Ox4 but occasionally responds to questions tangentially or inappropriately. Diagnostics in ED notable for negative LE dopplers, normal TSH/B12, negative RPR/HIV/Hepatitis panel, UDS + for amphetamines, cannabinoids. Head CT NAIP. Psychiatry has evaluated and is not concerned for primary psychiatric disorder. Agree that primary psychiatric disorder seems unlikely. Would be more concerned for Wernicke-Korsakoff syndrome, thoughunclear how longstanding alcohol abuse is. Could also be at risk due to history of gastric bypass surgery leading to malabsorption. Also cannot rule out substance-induced mood disorder. -Appreciate psychiatric evaluation -Will do high-dose thiamine (500 TID x2 days, then 250 qd x5 days), monitor for alcohol withdrawal,and encourage cessation of illicit substances. Will also speak to previous PCP regarding medical history, particularly a possible psychiatric history. Fátima Aldridge MD * Assessment & Plan Note - Rommel Angel MD - 02/04/2018 6:46 AM CDT Associated Problem(s): Polysubstance abuse (CMS/HCC) (HCC) Formerly reports using her prescriptions for vicodin and xanax in conjunction with alcohol Now endorses trying cocaine and ecstasy recently which she has not previously tried Endorses smoking marijuana more often recently as well UDS with +MJ and presumptive amphetamines Added on to ED labs: HIV and Hepatitis panel SW for amber [facility] reports last vicodin script has not been filled since 11/2017 Avoid opioids if possible * Assessment & Plan Note - Rommel Angel MD - 02/04/2018 6:44 AM CDT Associated Problem(s): Anemia Hgb 8.7. Patient denies melena/hematochezia -Added on iron profile/ferritin to ED labs -Transfuse <7 * Assessment & Plan Note - Rommel Angel MD - 02/04/2018 6:44 AM CDT Associated Problem(s): Hypertension Cont home losartan HCTZ * Assessment & Plan Note - Rommel Angel MD - 02/04/2018 6:41 AM CDT Associated Problem(s): Lymphedema of right lower extremity Bilateral LE. Would likely benefit from lymphedema wraps -Consult placed for lymphedema PT/OT -Can cont home lasix 40mg (confirmed w/ pharmacy) * Assessment & Plan Note - Rommel Angel MD - 02/04/2018 6:40 AM CDT Associated Problem(s): History of DVT (deep vein thrombosis) History of multiple recurrent DVTs. On life long anticoagulation per patient and family -No records in our system as she recently moved here from [place] -Pt reports missing 1 week of warfarin after running out two weeks ago -Called [facility] and [facility]. Her warfarin script for 5mg had not been filled since April at [facility] andsince June at [facility], INR currently 1.35 -Patient is unclear when last acute DVT was. Her son thinks this was in 11/2017 -Given lovenox x1 in ED. Will cont lovenox for now -Restart warfarin 5mg qday * Assessment & Plan Note - Rommel Angel MD - 02/04/2018 6:40 AM CDT Associated Problem(s): alcohol use disorder (CMS/HCC) Everyday drinker, last drink 02/03 AM. H/o EtOH withdrawal, but denies DT's. -[facility] protocol -Thiamine folate, MVI -SW consult for outpatient resources * Assessment & Plan Note - Rommel Angel MD - 02/04/2018 6:38 AM CDT Associated Problem(s): Cognitive and behavioral changes Progressive decline since 11/2017. 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 She had been to [facility] and discharged last week, she states she [...] for chemical dependency and outpatient psychiatry at [facility] - monitor for alcohol withdrawal * Assessment & Plan Note - Morales Terry MD - 02/04/2018 6:24 AM CDTAssociated Problem(s): Dementia associated with alcoholism (HCC) Patient has cognitive deficits with MOCHA of 16 and is a poor historian. 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 Patient may also have some grandiose delusions stating she is suing [employer] for racism after an incident during her last hospitalization and states her shot man said she may get 10-20million doll ars from the settlement. Patient does not have [...] cognitive symptoms caused by alcohol use. Rule outkorsakoff syndrome, wernicke encephalopathy * Subjective & Objective - Rommel Angel MD - 02/04/2018 5:23 AM CDT History and Physical Division of [facility] Medicine Name: Tiarra Addison Today: February 04, 2018 : 1970 Age: 47 y.o. female Subjective The patient is a 47 y.o. female with chief complaint of altered mental status. HPI: 47 year old female with past medical history of EtOH abuse, multiple DVTs (on warfarin) complicatedby chronic LE edema and hypertension who presents with leg pain and behavioral changes. History is obtained from son and patient. 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 However since 11/2017 there has been a progressive decline in her behavior and change in her personality. The family has noticed more confused and erratic behavior. She was fired from her job and moved in with her son by [place] [employer]. Examples of changes in her behavior include, hitch hiking, stealing family members cars, and increased drinking. She reports drinking 1/2 bottle of wine daily, however her sons whom she live with note that she drinks much more than this including hard liquor. They also noticed that she has been obtaining vicodin and using this in conjunction with alcohol. She was found yesterday in a family member's car after running out of gas, sitting and drinking in the car. She requested to be brought to the ED for alcohol detox and her leg pain. In the ED, she is afebrile, HR 85, RR 17, BP 155/82, satting 100% on RA. She initially complained of chest pain, but later stated this had resolved. Lab work showed negative troponin, BMP unremarkable, CBC with Hgb of 8.7, no leukocytosis, normal TSH, UA normal, UDS with positive cannabinoids and pr esumptive amphetamines, EtOH level <10. In the ED she requested to see psychiatry for depression. Psych saw patient and she score a 16 on MOCA. On my interview with patient she exhibits many of the same behaviors described in the psychiatry consult note. She is very disinhibited, stating you are very handsome and how much money do you make . 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 She does endorse depressive symptoms but appears to be elated currently and reports feeling great . The patient readily admits to EtOH and polysubstance abuse and that she feels she is an alcoholic. She endorses having severe EtOH withdrawal in the past when trying to abstainwith severe anxiety attacks, heart racing and high blood pressure. She denies seizures. She states she used cocaine and ecstasy this past week, as well as marijuana. She states she had smoked marijuana in the past but that she had never tried other drugs prior to the occasions this pastweek. She also reports having intercourse with someone she hardly knew yesterday morning. Did not ask for additional details on this. On ROS, she deneis chest pain/pressure/tightness on exertion, no shortness of breath, fevers/chills, nausea/vomiting, nightsweats, diarrhea/constipation, URI symptoms or sick contacts. During our interview she contreras Past Medical History: Diagnosis Date ??? Hypertension ??? Lymph edema Past Surgical History: Procedure Laterality Date ??? SECTION ??? GASTRIC BYPASS HOME MEDICATIONS : Not on File No Known Allergies Social History Substance Use Topics ??? Smoking status: Never Smoker ??? Smokeless tobacco: Never Used ??? Alcohol use Not on file History reviewed. No pertinent family history. Review of Systems All other systems were reviewed and are negative except for as stated per HPI. Objective Vitals: 24hr Min/Max: Temp Min: 37.2 ??C (99 ??F) Max: 37.2 ??C (99 ??F) Pulse Min: 82 Max: 85 BP Min: 142/76 Max: 155/82 Resp Min: 17 Max: 21 SpO2 Min: 96 % Max: 100 % Most Recent Vitals: Vitals: 02/04/18 0130 BP: 149/86 Pulse: 82 Resp: Temp: SpO2: 97% No intake or output data in the 24 hours ending 02/04/18 0523 Physical Exam Constitutional: NAD, obese female, well developed, well nourished Eyes: PERRL, EOMI, anicteric ENT: NCAT, oropharynx normal, moist mucus membranes Lungs: Clear to auscultation in all lung thompson, unlabored, trachea midline Cardiovascular: RRR, normal S1 and S2, no murmurs, no JVD GI: Soft, non-tender, non-distended, bowel sounds +, no organomegaly Skin: Changes in LE consistent with chronic venous stasis, No new rashes, lesions or bruises Extremities: Right LE markedly swollen, non pitting, Left LE also with swelling but smaller than right. Not TTP, not warm or erythematous Lymph: No cervical, supraclavicular, axillary or inguinal adenopathy Neurologic: AOx4, CNII-XII intact, normal strength and sensation Psychiatric: Expansive mood Lab/Diagnostic Review: Recent Results (from the past 24 hour(s)) Troponin I Collection Time: 02/04/18 12:59 AM Result Value Ref Range Troponin I <0.03 0.00 - 0.03 ng/mL CBC with auto differential Collection Time: 02/04/18 12:59 AM Result Value Ref Range WBC 9.2 3.8 - 9.9 K/cumm Hgb 8.7 (L) 11.9 - 15.5 g/dL Hct 29.1 (L) 35.6 - 45.5 % Plt 307 150 - 400 K/cumm MPV 9.2 9.1 - 12.3 fL RBC 4.03 3.90 - 5.20 M/cumm MCV 72.2 (L) 81.3 - 96.4 fL MCH 21.6 (L) 27.1 - 33.3 pg MCHC 29.9 (L) 32.3 - 35.7 g/dL RDW CV 19.0 (H) 11.1 - 14.9 % RDW SD 49.2 (H) 35.7 - 48.1 fL NRBC Abs 0.00 0.00 - 0.01 K/cumm Basic metabolic panel Collection Time: 02/04/18 12:59 AM Result Value Ref Range Sodium 139 135 - 145 mmol/L Potassium, pl 3.8 3.3 - 4.9 mmol/L Chloride 105 97 - 110 mmol/L CO2 25 22 - 32 mmol/L Anion Gap 9 2 - 15 mmol/L BUN 12 8 - 25 mg/dL Creatinine 0.75 0.60 - 1.10 mg/dL Glucose 92 70 - 199 mg/dL Calcium 9.5 8.5 - 10.3 mg/dL Ethanol Collection Time: 02/04/18 12:59 AM Result Value Ref Range Ethanol <10.0 <=10.0 mg/dL Differential, auto Collection Time: 02/04/18 12:59 AM Result Value Ref Range Neutrophil absolute 6.2 1.7 - 6.5 K/cumm Immature granulocyte absolute 0.0 0.0 - 0.1 K/cumm Lymphocytes absolute 1.9 0.8 - 3.3 K/cumm Monocyte absolute 0.9 (H) 0.2 - 0.8 K/cumm Eosinophils absolute 0.2 0.0 - 0.5 K/cumm Basophils, abs 0.0 0.0 - 0.1 K/cumm Neutrophils 67.6 % Immature granulocytes 0.3 % Lymphocytes 20.4 % Monocytes 9.4 % Eosinophils 2.1 % Basophils 0.2 % Lipase Collection Time: 02/04/18 12:59 AM Result Value Ref Range Lipase 47 10 - 99 Units/L TSH reflex to free T4 Collection Time: 02/04/18 12:59 AM Result Value Ref Range TSH 3.40 0.30 - 4.20 mcIUnit/mL Hepatic function panel Collection Time: 02/04/18 12:59 AM Result Value Ref Range Bilirubin, total 0.5 0.1 - 1.2 mg/dL Bilirubin, direct <0.2 0.1 - 0.3 mg/dL Protein, pl 7.3 6.5 - 8.5 g/dL Albumin 3.7 3.5 - 5.0 g/dL Alk phos 92 40 - 130 Units/L ALT 15 7 - 45 Units/L AST 29 10 - 45 Units/L Drug screen, urine Collection Time: 02/04/18 1:32 AM Result Value Ref Range Amphetamines, Class Presumptive Barbiturates, Class None detected Benzodiazepines None detected Cannabinoids, Screen Positive Screen Cocaine metabolite None detected Methadone None detected Opiates, Class None detected Oxycodone, ur None detected Phencyclidine, ur None detected Urinalysis reflex to microscopic Urine Collection Time: 02/04/18 1:32 AM Result Value Ref Range Color, ur Dariela Yellow Clarity, ur Cloudy (A) Clear Specific gravity, ur 1.032 (H) 1.010 - 1.025 pH, urine 5.0 Protein, ur ql 1+ (A) Negative Glucose, ur ql Negative Negative Ketones, ur Negative Negative Bilirubin, ur Negative Negative Blood, ur 2+ (A) Negative Urobilinogen, ur 2.0 (A) <2.0 mg/dL Nitrite, ur Negative Negative Leukocyte esterase, ur Negative Negative Protime-INR Collection Time: 02/04/18 1:32 AM Result Value Ref Range PT 14.5 (H) 8.5 - 13.0 sec INR 1.35 (H) 0.80 - 1.21 aPTT Collection Time: 02/04/18 1:32 AM Result Value Ref Range aPTT 23.9 (L) 25.0 - 37.0 sec Urinalysis, microscopic only Collection Time: 02/04/18 1:32 AM Result Value Ref Range WBC, ur 0-5 0 - 5 /HPF RBC, ur 0-5 0 - 5 /HPF Epithelial cells, squamous, ur 1-5 0 - 5 /HPF Bacteria, ur 3+ (A) Mucous, ur Present (A) Hyaline casts, ur 1-5 0 - 10 /LPF POCT hCG, urine Collection Time: 02/04/18 3:36 AM Result Value Ref Range HCG, ur, POC Negative Lot Number [id number] QC Backgroud Clear Acceptable QC Control Line Acceptable I have reviewed the laboratory results. Imaging Results: XR Chest Pa Lateral 2 Vw Narrative: EXAMINATION: XR CHEST PA LATERAL 2 VIEWS HISTORY: Left-sided chest pain extending to the left arm COMPARISON: None Impression: Two views of the chest are submitted for interpretation. No pneumothorax, pleural effusion or focal consolidation. There is mild left basilar atelectasis. Heart size is within normal limits. Dictated by: Tiburcio Lock M.D. , PHD I have independently reviewed and interpreted the lab and imaging data * Assessment & Plan Note - Morales Terry MD - 02/04/2018 4:36 AM CDTAssociated Problem(s): Dementia associated with alcoholism (HCC) Patient has cognitive deficits with MOCHA of 16 and is a poor historian. 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 Patient may also have some grandiose delusions stating she is suing [employer] for racism after an incident during her last hospitalization and states her shot man said she may get 10-20million doll ars from the settlement. Patient does not have [...] for cognitive symptoms caused by alcohol use. * Assessment & Plan Note - Morales Terry MD - 02/04/2018 4:20 AM CDTAssociated Problem(s): alcohol use disorder (CMS/HCC) Patient has a 10 year history of substantial alcohol use, drinking 1 bottle of wine / day everyday for the last 10 years. She had been to [facility] and discharged last week, she states she [...] for chemical dependency and outpatient psychiatry at [facility] * ED Procedure Note - Sonja Jesus MD - 02/03/2018 8:12 PM CDT Associated Order(s): ECG 12-LEAD Procedure ECG 12 lead Date/Time: 02/03/2018 8:12 PM Performed by: SONJA JESUS Authorized by: SONJA JESUS Rate: ECG rate: 80 ECG rate assessment: normal Rhythm: Rhythm: sinus rhythm Ectopy: Ectopy: none QRS: QRS axis: Normal Conduction: Conduction: normal ST segments: ST segments: Normal T waves: T waves: normal Previous ECG: Previous ECG: Unavailable Interpretation: Interpretation: normal Recommended Follow-up: Recommended follow up: further workup in the ED Sonja Jesus MD 02/03/182012 documented in this encounter Plan of Treatment Not on file documented as of this encounter Procedures Procedure Name Priority Date/Time Associated Diagnosis Comments PROTIME-INR Routine 02/06/2018 8:01 PM CDT CBC WITHOUT DIFFERENTIAL Routine 02/06/2018 8:01 PM CDT CREATININE Routine 02/06/2018 8:01 PM CDT PROTIME-INR Routine 02/06/2018 12:23 AM CDT CBC WITHOUT DIFFERENTIAL Routine 02/06/2018 12:23 AM CDT CREATININE Routine 02/06/2018 12:23 AM CDT CBC WITHOUT DIFFERENTIAL STAT 02/05/2018 5:16 AM CDT CREATININE STAT 02/05/2018 5:16 AM CDT APTT Timed 02/04/2018 8:21 PM CDT PROTIME-INR Timed 02/04/2018 8:21 PM CDT CBC WITHOUT DIFFERENTIAL Routine 02/04/2018 8:21 PM CDT CREATININE Timed 02/04/2018 8:[address] HEAD WO CONTRAST ED 02/04/2018 1 1:56 AM CDT US VEIN DUPLEX LOWER EXTREMITY BILATERAL COMPLETE ED 02/04/2018 8:[address] CHEST PE W CONTRAST ED 02/04/2018 5:20 AM CDT IRON PROFILE W/ IBC STAT 02/04/2018 4 :42 AM CDT HIV 1/2 ANTIBODY PLUS P24 ANTIGEN STAT 02/04/2018 4:42 AM CDT HEPATITIS PANEL, ACUTE STAT 02/04/2018 4:42 AM CDT RPR STAT 02/04/2018 4:42 AM CDT APTT STAT 02/04/2018 4:42 AM CDT PROTIME-INR STAT 02/04/2018 4:42 AM CDT CBC WITHOUT DIFFERENTIAL STAT 02/04/2018 4:42 AM CDT FERRITIN STAT 02/04/2018 4:42 AM CDT VITAMIN B12 STAT 02/04/2018 4:42 AM CDT CREATININE STAT 02/04/2018 4:42 AM CDT POCT HCG, URINE Routine 02/04/2018 3:36 AM CDT URINALYSIS AND REFLEX TO MICROSCOPIC STAT 02/04/2018 1:32 AM CDT AMPHETAMINE, URINE, CONFIRMATION STAT 02/04/2018 1:32 AM CDT DRUGS OF ABUSE SCREEN, URINE WITHOUT CONFIRMATION STAT 02/04/2018 1:32 AM CDT URINALYSIS, MICROSCOPIC ONLY STAT 02/04/2018 1:32 AM CDT APTT STAT 02/04/2018 1:32 AM CDT PROTIME-INR STAT 02/04/2018 1:32 AM CDT DIFFERENTIAL AUTO STAT 02/04/2018 12: 59 AM CDT THYROID FUNCTION CASCADE STAT 02/04/2018 12:59 AM CDT CBC WITH AUTO DIFFERENTIAL STAT 02/04/2018 12:59 AM CDT TROPONIN I STAT 02/04/2018 12:59 AM CDT LIPASE STAT 02/04/2018 12:59 AM CDT ETHANOL STAT 02/04/2018 12:59 AM CDT HEPATIC FUNCTION PANEL STAT 02/04/2018 12:59 AM CDT BASIC METABOLIC PANEL STAT 02/04/2018 12:59 AM CDT XR CHEST PA LATERAL 2 VIEWS ED 02/03/2018 11:06 PM CDT ECG 12-LEAD STAT 02/03/2018 8:12 PM CDT documented in this encounter Results * (ABNORMAL) Protime-INR (02/06/2018 8:01 PM CDT) [facility] PT 14.1(H) 8.5 - 13.0 sec [facility] INR 1.31(H) 0.80 - 1.21 [facility] Comment: Interpretive Data Inpatient therapeutic ranges* Atrial fibrillation ?2.0-3.0 INR Venous thrombo-embolism ?2.0-3.0 INR Bioprosthetic heart valve ?* Mechanical heart valve, bileaflet or tilting disk,aortic position ? 2.0-3.0 INR All other,or bileaflet or tilting disk, in mitral position ? 2.5-3.5 INR *See the pharmacy resource directory (PHRED) for an updated copy of the Tool Book at [email or web address] Current Interpretive Data was last revised 2011. Blood specimen (specimen) 02/06/2018 8:01 PM CDT 02/06/2018 8:14 PM CDT Narrative [facility] - 02/06/2018 8:37 PM CDT Fátima Aldridge MD LAB BLOOD ORDERABL ES Final Result [facility] [place] [address] * (ABNORMAL) CBC without differential (02/06/2018 8:01 PM CDT) WBC 8.0 3.8 - 9.9 K/cumm [facility] Hgb 8.3(L) 11.9 - 15.5 g/dL [facility] Hct 29.0(L) 35.6 - 45.5 % [facility] Plt 299 150 - 400 K/cumm [facility] MPV 9.4 9.1 - 12.3 fL [facility] RBC 3.95 3.90 - 5.20 M/cumm [facility] MCV 73.4(L) 81.3 - 96.4 fL [facility] MCH 21.0(L) 27.1 - 33.3 pg [facility] MCHC 28.6(L) 32.3 - 35.7 g/dL [facility] RDW CV 19.3(H) 11.1 - 14.9 % [facility] RDW SD 50.2(H) 35.7 - 48.1 fL [facility] NRBC abs 0.00 0.00 - 0.01 K/cumm [facility] Blood specimen (specimen) 02/06/2018 8:01 PM CDT 02/06/2018 8:13 PM CDT Narrative [facility] - 02/06/2018 8:20 PM CDT while on enoxaparin. Rommel Angel III, MD LAB BLOOD ORDERABLES [facility] al Result Performing Organization Address [facility] de Phone Number [facility] [place] [address] * Creatinine (02/06/2018 8:01 PM CDT) Pathologist [facility] Creatinine 0.82 0.60 - 1.10 mg/dL [facility] Blood specimen (specimen) 02/06/2018 8:01 PM CDT 02/06/2018 8:13 PM CDT Narrative [facility] - 02/06/2018 8:37 PM CDT while on enoxaparin. Rommel Angel III, MD LAB BLOOD ORDERABLES Fin al Result Performing Organization Address [facility] de Phone Number [facility] [place] [address] * (ABNORMAL) Protime-INR (02/06/2018 12:23 AM CDT) Pathologist [facility] PT 14.1(H) 8.5 - 13.0 sec [facility] INR 1.31(H) 0.80 - 1.21 [facility] Comment: Interpretive Data Inpatient therapeutic ranges* Atrial fibrillation ?2.0-3.0 INR Venous thrombo-embolism ?2.0-3.0 INR Bioprosthetic heart valve ?* Mechanical heart valve, bileaflet or tilting disk,aortic position ? 2.0-3.0 INR All other,or bileaflet or tilting disk, in mitral position ? 2.5-3.5 INR *See the pharmacy resource directory (PHRED) for an updated copy of the Tool Book at [email or web address] Current Interpretive Data was last revised 2011. Blood specimen (specimen) 02/06/2018 12:23 AM CDT 02/06/2018 12:35 AM CDT Narrative [facility] - 02/06/2018 12:59 AM CDT us Fátima Aldridge MD LAB BLOOD ORDERABL ES Final Result [facility] [place] [address] * (ABNORMAL) CBC without differential (02/06/2018 12:23 AM CDT) WBC 8.0 3.8 - 9.9 K/cumm [facility] Hgb 9.0(L) 11.9 - 15.5 g/dL [facility] Hct 31.1(L) 35.6 - 45.5 % [facility] Plt 328 150 - 400 K/cumm [facility] MPV 9.5 9.1 - 12.3 fL [facility] RBC 4.26 3.90 - 5.20 M/cumm [facility] MCV 73.0(L) 81.3 - 96.4 fL [facility] MCH 21.1(L) 27.1 - 33.3 pg [facility] MCHC 28.9(L) 32.3 - 35.7 g/dL [facility] RDW CV 19.6(H) 11.1 - 14.9 % [facility] RDW SD 50.7(H) 35.7 - 48.1 fL [facility] NRBC abs 0.00 0.00 - 0.01 K/cumm [facility] Blood specimen (specimen) 02/06/2018 12:23 AM CDT 02/06/2018 12:47 AM CDT Narrative [facility] - 02/06/2018 12:55 AM CDT while on enoxaparin. Rommel Angel III, MD LAB BLOOD ORDERABLES Fin al Result Performing Organization Address [facility] de Phone Number [facility] [place] [address] * (ABNORMAL) Creatinine (02/06/2018 12:23 AM CDT) [facility] Creatinine 1.14(H) 0.60 - 1.10 mg/dL [facility] Blood specimen (specimen) 02/06/2018 12:23 AM CDT 02/06/2018 12:35 AM CDT Narrative [facility] - 02/06/2018 12:57 AM CDT while on enoxaparin. Rommel Angel III, MD LAB BLOOD ORDERABLES Fin al Result Performing Organization Address [facility] de Phone Number [facility] [place] [address] * (ABNORMAL) CBC without differential (02/05/2018 5:16 AM CDT) [facility] WBC 7.8 3.8 - 9.9 K/cumm [facility] Hgb 9.1(L) 11.9 - 15.5 g/dL [facility] Hct 30.8(L) 35.6 - 45.5 % [facility] Plt 308 150 - 400 K/cumm [facility] MPV 9.8 9.1 - 12.3 fL [facility] RBC 4.22 3.90 - 5.20 M/cumm [facility] MCV 73.0(L) 81.3 - 96.4 fL [facility] MCH 21.6(L) 27.1 - 33.3 pg [facility] MCHC 29.5(L) 32.3 - 35.7 g/dL [facility] RDW CV 19.3(H) 11.1 - 14.9 % [facility] RDW SD 50.0(H) 35.7 - 48.1 fL [facility] NRBC abs 0.00 0.00 - 0.01 K/cumm [facility] Blood specimen (specimen) 02/05/2018 5:16 AM CDT 02/05/2018 6:59 AM CDT Narrative [facility] - 02/05/2018 7:21 AM CDT while on enoxaparin. Fátima Aldridge MD LAB BLOOD ORDERABL ES Final Result Performing Organization Address City/[facility]/ZIP Co de Phone Number [facility] [place] [address] * Creatinine (02/05/2018 5:16 AM CDT) Creatinine 0.91 0.60 - 1.10 mg/dL [facility] Blood specimen (specimen) 02/05/2018 5:16 AM CDT 02/05/2018 6:59 AM CDT Narrative [facility] - 02/05/2018 7:57 AM CDT while on enoxaparin. Fátima Aldridge MD LAB BLOOD ORDERABL ES Final Result Performing Organization Address City/[facility] Co de Phone Number [facility] [place] [address] * (ABNORMAL) Protime-INR (02/04/2018 8:21 PM CDT) PT 14.1(H) 8.5 - 13.0 sec [facility] INR 1.31(H) 0.80 - 1.21 [facility] Comment: Interpretive Data Inpatient therapeutic ranges* Atrial fibrillation ?2.0-3.0 INR Venous thrombo-embolism ?2.0-3.0 INR Bioprosthetic heart valve ?* Mechanical heart valve, bileaflet or tilting disk,aortic position ? 2.0-3.0 INR All other,or bileaflet or tilting disk, in mitral position ? 2.5-3.5 INR *See the pharmacy resource directory (PHRED) for an updated copy of the Tool Book at [email or web address] Current Interpretive Data was last revised 2011. Blood specimen (specimen) 02/04/2018 8:21 PM CDT 02/04/2018 8:35 PM CDT Narrative [facility] - 02/04/2018 9:02 PM CDT Unless preformed in the last 48 hours. Draw prior to enoxaparin administration. Fátima Aldridge MD LAB BLOOD ORDERABL ES Final Result [facility] [place] [address] * aPTT (02/04/2018 8:21 PM CDT) aPTT 29.6 25.0 - 37.0 sec [facility] Comment: Interpretive Data Therapeutic heparin range:60.0 - 94.0 sec based on correlation with therapeutic heparin activity range of 0.3 -0.7 Units/mL. Current interpretive data was last revised on 2011. Blood specimen (specimen) 02/04/2018 8:21 PM CDT 02/04/2018 8:35 PM CDT Narrative [facility] - 02/04/2018 9:02 PM CDT Unless preformed in the last 48 hours. Draw prior to enoxaparin administration. Fátima Aldridge MD LAB BLOOD ORDERABL ES Final Result [facility] [place] [address] * (ABNORMAL) CBC without differential (02/04/2018 8:21 PM CDT) Pathologist [facility] WBC 7.8 3.8 - 9.9 K/cumm [facility] Hgb 8.9(L) 11.9 - 15.5 g/dL [facility] Hct 30.7(L) 35.6 - 45.5 % [facility] Plt 291 150 - 400 K/cumm [facility] MPV 9.6 9.1 - 12.3 fL [facility] RBC 4.16 3.90 - 5.20 M/cumm [facility] MCV 73.8(L) 81.3 - 96.4 fL [facility] MCH 21.4(L) 27.1 - 33.3 pg [facility] MCHC 29.0(L) 32.3 - 35.7 g/dL [facility] RDW CV 19.6(H) 11.1 - 14.9 % [facility] RDW SD 51.6(H) 35.7 - 48.1 fL [facility] NRBC abs 0.00 0.00 - 0.01 K/cumm [facility] Blood specimen (specimen) 02/04/2018 8:21 PM CDT 02/04/2018 8:35 PM CDT Narrative [facility] - 02/04/2018 8:52 PM CDT while on enoxaparin. THE COLLECTION LOCATION IS [facility] ED1-04 Rommel Angel III, MD LAB BLOOD ORDERABLES Fin al Result [facility] [place] [address] * Creatinine (02/04/2018 8:12 PM CDT) Pathologist [facility] Creatinine 0.87 0.60 - 1.10 mg/dL [facility] Blood specimen (specimen) 02/04/2018 8:12 PM CDT 02/04/2018 8:35 PM CDT Narrative [facility] - 02/04/2018 9:10 PM CDT Unless preformed in the last 48 hours. Draw prior to enoxaparin administration. us Fátima Aldridge MD LAB BLOOD ORDERABL ES Final Result [facility] [place] [address] * CT Head WO Contrast (02/04/2018 11:56 AM CDT) Anatomical Region Laterality Modality Head and Neck N/A Computed Tomogra phy 02/04/2018 12:0 4 PM CDT Impressions 02/04/2018 1:38 PM CDT No acute intracranial abnormality. Dictated by: Ran Rinaldi Electronically signed by: Jonn Catalan M.D, PHD Narrative 02/04/2018 1:38 PM CDT EXAMINATION: Noncontrast head CT HISTORY:47-year-old man with hypertension, DVT/PE, and alcohol and substance abuse presented with altered mental status. TECHNIQUE: Noncontrast CT of the brain was performed with images acquired from skull base to vertex. COMPARISON: None FINDINGS: Topogram demonstrates no lytic lesions or fractures. There is no acute intracranial hemorrhage. Ventricles are of normal size and morphology. No mass effect or midline shift is present. Mineralization in basal ganglia is noted. ??The li-white matter differentiation is normal. The visualized portions of the orbits are normal. The visualized portions of the mastoids are normal. The visualized portions of the paranasal sinuses are normal. No fractures are identified. Procedure Note Jonn Catalan MD PhD - 02/04/2018 EXAMINATION: Noncontrast head CT HISTORY:47-year-old man with hypertension, DVT/PE, and alcohol and substance abuse presented with altered mental status. TECHNIQUE: Noncontrast CT of the brain was performed with images acquired from skull base to vertex. COMPARISON: None FINDINGS: Topogram demonstrates no lytic lesions or fractures. There is no acute intracranial hemorrhage. Ventricles are of normal size and morphology. No mass effect or midline shift is present. Mineralization in basal ganglia is noted. The li-white matter differentiation is normal. The visualized portions of the orbits are normal. The visualized portions of the mastoids are normal. The visualized portions of the paranasal sinuses are normal. No fractures are identified. IMPRESSION: No acute intracranial abnormality. Dictated by: Ran Rinaldi Electronically signed by: Jonn Catalan M.D, PHD us Luca Case MD IMG CT PROCEDURES Final Re sult * US Vein Duplex Lower Extremity Bilateral Complete (02/04/2018 8:09 AM CDT) Anatomical Region Laterality Modality Vascular Bilateral Ultrasound 02/04/2018 7:50 AM CDT Narrative 02/04/2018 8:48 PM CDT [facility] - Department of Vascular Surgery, Vascular Laboratory [address] [place] [address] Lower Extremity Venous Ultrasound Report Patient Name: TIARRA ADDISON : 1970 (47y 1m) Study Date: 02/04/2018 7:50:01 AM Gender: F Tech: TM Location: [id number] Ref.Provider: FÁTIMA ALDRIDGE Quality: Adequate Order Provider: FLORENCE ZEPEDA Procedures: Vascular Report: Venous Duplex imaging was performed bilaterally in the lower extremities. The common femoral, femoral, popliteal, posterior tibial, peroneal veins were evaluated for patency, spontaneity and phasicity with Doppler, compression and augmentation maneuvers. Great saphenous vein proximal at the junction was evaluated with compression maneuvers. Indications: HX of DVT. Findings: Performing [place] Gatherer: Evelyn Murdock RVT. Bilateral: Venous Doppler signals [...] Note Jatin De Jesus MD - 02/04/2018 [facility] - Department of Vascular Surgery,Vascular Laboratory [address] [place] [address] Lower Extremity Venous Ultrasound Report Patient Name: TIARRA ADDISONPatient ID: [id number] : 1970 (47y 1m)Study Date: 02/04/2018 7:50:01 AM Gender: FAccession #: [id number] Tech: TMLocation: [id number] Ref.Provider: Adry ALDRIDGEality: Adequate Order Provider: Farhan EZPEDA #: [id number] Procedures: Vascular Report: Venous Duplex imaging was performed bilaterally in the lower extremities.The common femoral, femoral, popliteal, posterior tibial, peroneal veins wereevaluated for patency, spontaneity and phasicity with Doppler, compression and augmentationmaneuvers. Great saphenous vein proximal at the junction was evaluated with compressionmaneuvers. Indications: HX of DVT. Findings: Performing [place] Gatherer: Evelyn Murdock RVT. Bilateral: Venous Doppler signals [...] [facility] 2018-02-04 20:48:13 CDT CC: CC: Florence Zepeda MD IMG US PROCEDURES Final Result * CT Chest PE W Contrast (02/04/2018 5:20 AM CDT) Anatomical Region Laterality Modality Body N/A Computed Tomogra phy 02/04/2018 6:09 AM CDT Impressions 02/04/2018 11:09 AM CDT No pulmonary embolism. Dictated by: Tiburcio Lock M.D. , PHD Electronically signed by: Keshawn Mandujano M.D. Narrative 02/04/2018 11:09 AM CDT EXAMINATION: ??Computed tomography of the chest with intravenous contrast HISTORY: ??hx PE now with chest pain, not taking warfarin TECHNIQUE: ??Transaxial computed tomographic images of the chest were obtained with intravenous contrast according to the standard protocol after the uneventful administration of 100 mL Opti-Ray 350 intravenous contrast. COMPARISON: None FINDINGS: Heart size is normal. ??No pericardial effusion. ??Thoracic aorta is of normal course and caliber. ??Major aortic branches are patent. ??No central, lobar or segmental pulmonary embolism. ??Apparent filling defects in the subsegmental arteries in the lower lobes for reference slice position -576.5 in the right lower lobe, are favored to represent motion artifact. There are calcified mediastinal lymph nodes. ??No mediastinal, supraclavicular or axillary lymphadenopathy by size criteria. Thyroid is normal. ??Esophagus appears normal. Central airways are patent with no endobronchial mass. ??There is left basilar granuloma. ??Mild left basilar atelectasis noted. No pleural effusion. ??No pneumothorax. Limited evaluation of the upper abdomen demonstrate no acute finding. There is mild nodular thickening of the right adrenal gland. Postsurgical changes of prior gastric bypass surgery are noted. Bone windows demonstrate no suspicious osseous lesion. ?? Procedure Note Keshawn Mandujano MD - 02/04/2018 EXAMINATION: Computed tomography of the chest with intravenous contrast HISTORY: hx PE now with chest pain, not taking warfarin TECHNIQUE: Transaxial computed tomographic images of the chest were obtained with intravenous contrast according to the standard protocol after the uneventful administration of 100 mL Opti-Ray 350 intravenous contrast. COMPARISON: None FINDINGS: Heart size is normal. No pericardial effusion. Thoracic aorta is of normal course and caliber. Major aortic branches are patent. No central, lobar or segmental pulmonary embolism. Apparent filling defects in the subsegmental arteries in the lower lobes for reference slice position -576.5 in the right lower lobe, are favored to represent motion artifact. There are calcified mediastinal lymph nodes. No mediastinal, supraclavicular or axillary lymphadenopathy by size criteria. Thyroid is normal. Esophagus appears normal. Central airways are patent with no endobronchial mass. There is left basilar granuloma. Mild left basilar atelectasis noted. No pleural effusion. No pneumothorax. Limited evaluation of the upper abdomen demonstrate no acute finding. There is mild nodular thickening of the right adrenal gland. Postsurgical changes of prior gastric bypass surgery are noted. Bone windows demonstrate no suspicious osseous lesion. IMPRESSION: No pulmonary embolism. Dictated by: Tiburcio Lock M.D. , PHD Electronically signed by: Keshawn Mandujano M.D. Florence Zepeda MD IMG CT PROCEDURES Final Result * Hepatitis panel, acute (02/04/2018 4:42 AM CDT) Hep A IgM Nonreactive Nonreactive [facility] Comment: Interpretive Data If test is reported as GRAYZONE, new sample should be drawn in two weeks for testing. Current interpretive data was last revised on 2016. Hep B core IgM Nonreactive Nonreactive [facility] Comment: Interpretive Data If test is reported as GRAYZONE, new sample should be drawn for testing. Current interpretive data was last revised on 2016. Hep C Ab Nonreactive Nonreactive [facility] Comment: Interpretive Data Positive results should be confirmed by a molecular method. If positive, a second separately collected sample should be submitted for Hepatitis C Virus (HCV) RNA Detection and Quantitation by Real-Time Reverse General Contractor-PCR (RT-PCR). Current interpretive data was last revised on 2016. HepBsAg Nonreactive Nonreactive [facility] Blood specimen (specimen) 02/04/2018 4:42 AM CDT 02/04/2018 6:09 AM CDT Narrative [facility] - 02/04/2018 2:22 PM CDT us Leelee Sierra MD LAB MICROBIOLOGY - GENERAL ORD ERABLES Edited Result - Final Performing Organization Address City/[facility]/ZIP Co de Phone Number [facility] [place] [address] * RPR, serum (02/04/2018 4:42 AM CDT) RPR Nonreactive Nonreactive [facility] Blood specimen (specimen) 02/04/2018 4:42 AM CDT 02/04/2018 6:13 AM CDT Narrative [facility] - 02/04/2018 10:50 AM CDT us Leelee Sierra MD LAB MICROBIOLOGY - GENERAL ORD ERABLES Final Result Performing Organization Address [facility] Co de Phone Number [facility] [place] [address] * (ABNORMAL) Iron profile w/ IBC (02/04/2018 4:42 AM CDT) Iron 31(L) 35 - 145 mcg/dL [facility] UIBC 327 112 - 347 mcg/dL [facility] TIBC 358 250 - 400 mcg/dL [facility] Transferrin saturation 9(L) 20 - 50 % [facility] Blood specimen (specimen) 02/04/2018 4:42 AM CDT 02/04/2018 6:09 AM CDT Narrative [facility] - 02/04/2018 7:43 AM CDT us Leelee Sierra MD LAB BLOOD ORDERABLES Final Res ult [facility] [place] [address] * Vitamin B12 (02/04/2018 4:42 AM CDT) Pathologist [facility] Vitamin B12 299 230 - 1,250 pg/mL [facility] Blood specimen (specimen) 02/04/2018 4:42 AM CDT 02/04/2018 6:09 AM CDT Narrative [facility] - 02/04/2018 7:43 AM CDT us Leelee Sierra MD LAB BLOOD ORDERABLES Final Res ult Performing Organization Address City/[facility]/[place] [address] * Ferritin (02/04/2018 4:42 AM CDT) Pathologist [facility] Ferritin 81 15 - 150 ng/mL [facility] Blood specimen (specimen) 02/04/2018 4:42 AM CDT 02/04/2018 6:09 AM CDT Narrative [facility] - 02/04/2018 7:43 AM CDT us Leelee Sierra MD LAB BLOOD ORDERABLES Final Res ult Performing Organization Address City/[facility]/ZIP Co de Phone Number [facility] [place] [address] * HIV-1 and HIV-2 antibody with P24 antigen immunoassay (02/04/2018 4:42 AM CDT) Pathologist [facility] HIV 1/2 ab + p24 ag Nonreactive Nonreactive [facility] Comment:Negative for HIV-1 a ntigen and HIV-1/ HIV-2 antibodies. No laboratory evidence of HIV infection. If acute HIV infection is suspected, consider testing for HIV-1 RNA. Blood specimen (specimen) 02/04/2018 4:42 AM CDT 02/04/2018 6:13 AM CDT Narrative [facility] - 02/04/2018 7:43 AM CDT Leelee Sierra MD LAB MICROBIOLOGY - GENERAL ORD ERABLES Final Result Performing Organization Address [facility] [place] [address] * Creatinine (02/04/2018 4:42 AM CDT) Creatinine 0.73 0.60 - 1.10 mg/dL [facility] Blood specimen (specimen) 02/04/2018 4:42 AM CDT 02/04/2018 6:09 AM CDT Narrative [facility] - 02/04/2018 6:36 AM CDT Unless preformed in the last 48 hours. Draw prior to enoxaparin administration. THE COLLECTION LOCATION IS [facility] ED2-25 Florence Zepeda MD LAB BLOOD ORDERABLES Fin al Result Performing Organization Address [facility] [place] [address] * aPTT (02/04/2018 4:42 AM CDT) aPTT 25.0 25.0 - 37.0 sec [facility] Comment: Interpretive Data Therapeutic heparin range:60.0 - 94.0 sec based on correlation with therapeutic heparin activity range of 0.3 -0.7 Units/mL. Current interpretive data was last revised on 2011. Blood specimen (specimen) 02/04/2018 4:42 AM CDT 02/04/2018 5:59 AM CDT Narrative [facility] - 02/04/2018 6:30 AM CDT Unless preformed in the last 48 hours. Draw prior to enoxaparin administration. THE COLLECTION LOCATION IS [facility] ED2-25 Florence Zepeda MD LAB BLOOD ORDERABLES Fin al Result Performing Organization Address [facility]/ZIP Co de Phone Number [facility] [place] [address] * (ABNORMAL) Protime-INR (02/04/2018 4:42 AM CDT) Pathologist [facility] PT 14.6(H) 8.5 - 13.0 sec [facility] INR 1.36(H) 0.80 - 1.21 [facility] Comment: Interpretive Data Inpatient therapeutic ranges* Atrial fibrillation ?2.0-3.0 INR Venous thrombo-embolism ?2.0-3.0 INR Bioprosthetic heart valve ?* Mechanical heart valve, bileaflet or tilting disk,aortic position ? 2.0-3.0 INR All other,or bileaflet or tilting disk, in mitral position ? 2.5-3.5 INR *See the pharmacy resource directory (PHRED) for an updated copy of the Tool Book at [email or web address]/bjc/pharmacy.nsf Current Interpretive Data was last revised 2011. Blood specimen (specimen) 02/04/2018 4:42 AM CDT 02/04/2018 5:59 AM CDT Narrative [facility] - 02/04/2018 6:30 AM CDT Unless preformed in the last 48 hours. Draw prior to enoxaparin administration. THE COLLECTION LOCATION IS [facility] ED2-25 us Florence Zepeda MD LAB BLOOD ORDERABLES Fin al Result Performing Organization Address City/[facility]/ZIP Co de Phone Number [facility] [place] [address] * (ABNORMAL) CBC without differential (02/04/2018 4:42 AM CDT) [facility] WBC 7.9 3.8 - 9.9 K/cumm [facility] Hgb 8.7(L) 11.9 - 15.5 g/dL [facility] Hct 30.0(L) 35.6 - 45.5 % [facility] Plt 325 150 - 400 K/cumm [facility] MPV 9.9 9.1 - 12.3 fL [facility] RBC 4.14 3.90 - 5.20 M/cumm [facility] MCV 72.5(L) 81.3 - 96.4 fL [facility] MCH 21.0(L) 27.1 - 33.3 pg [facility] MCHC 29.0(L) 32.3 - 35.7 g/dL [facility] RDW CV 19.4(H) 11.1 - 14.9 % [facility] RDW SD 49.4(H) 35.7 - 48.1 fL [facility] NRBC abs 0.00 0.00 - 0.01 K/cumm [facility] Blood specimen (specimen) 02/04/2018 4:42 AM CDT 02/04/2018 6:09 AM CDT Narrative [facility] - 02/04/2018 6:16 AM CDT Unless preformed in the last 48 hours. Draw prior to enoxaparin administration. THE COLLECTION LOCATION IS [facility] ED2-25 us Florence Zepeda MD LAB BLOOD ORDERABLES Fin al Result [facility] [place] [address] * POCT hCG, urine (02/04/2018 3:36 AM CDT) Pathologist [facility] HCG, ur, POC Negative Lot Number [id number] QC Backgroud Clear Acceptable QC Control Line Acceptable Urine 02/04/2018 3:36 AM CDT Baljeet Torres MD POINT OF CARE TE ST ORDERABLES Final Result * Amphetamine, urine, confirmation (02/04/2018 1:32 AM CDT) Amphetamine Conf, Ur Confirmed positive [facility] Methamphetamine Conf, Ur Confirmed positive [facility] Amphetamine, ur, quant Confirmed positive [facility] Comment: Interpretive Data The results of this test are to be used only for medical purposes and are not suitable for forensic use. Current interpretive data was last revised on 2013 Urine 02/04/2018 1:32 AM CDT 02/04/2018 1:58 AM CDT Narrative [facility] - 02/04/2018 12:10 PM CDT This test was developed using an analyte specific reagent. ??Its performance characteristics were determined by the [facility] in a manner consistent with CLIA requirements. ??This test has not been cleared or approved by the U.S. Food and Drug Administration. Baljeet Torres MD LAB URINE ORDERA BLES Final Result [facility] [place] [address] * (ABNORMAL) Urinalysis, microscopic only (02/04/2018 1:32 AM CDT) WBC, ur 0-5 0 - 5 /HPF [facility] RBC, ur 0-5 0 - 5 /HPF [facility] Epithelial cells, squamous, ur 1-5 0 - 5 /HPF [facility] Bacteria, ur 3+(A) [facility] Mucous, ur Present(A) [facility] Hyaline casts, ur 1-5 0 - 10 /LPF [facility] Urine 02/04/2018 1:32 AM CDT 02/04/2018 1:36 AM CDT Narrative [facility] - 02/04/2018 1:59 AM CDT us Florence Zepeda MD LAB URINE ORDERABLES Fin al Result Performing Organization Address [facility] Co de Phone Number [facility] [place] [address] * (ABNORMAL) aPTT (02/04/2018 1:32 AM CDT) aPTT 23.9(L) 25.0 - 37.0 sec [facility] Comment: Interpretive Data Therapeutic heparin range:60.0 - 94.0 sec based on correlation with therapeutic heparin activity range of 0.3 -0.7 Units/mL. Current interpretive data was last revised on 2011. Blood specimen (specimen) 02/04/2018 1:32 AM CDT 02/04/2018 1:36 AM CDT Narrative [facility] - 02/04/2018 2:11 AM CDT THE COLLECTION LOCATION IS [facility] us Florence Zepeda MD LAB BLOOD ORDERABLES Fin al Result Performing Organization Address [facility] Co de Phone Number [facility] [place] [address] * (ABNORMAL) Protime-INR (02/04/2018 1:32 AM CDT) PT 14.5(H) 8.5 - 13.0 sec [facility] INR 1.35(H) 0.80 - 1.21 [facility] Comment: Interpretive Data Inpatient therapeutic ranges* Atrial fibrillation ?2.0-3.0 INR Venous thrombo-embolism ?2.0-3.0 INR Bioprosthetic heart valve ?* Mechanical heart valve, bileaflet or tilting disk,aortic position ? 2.0-3.0 INR All other,or bileaflet or tilting disk, in mitral position ? 2.5-3.5 INR *See the pharmacy resource directory (PHRED) for an updated copy of the Tool Book at [email or web address] Current Interpretive Data was last revised 2011. Blood specimen (specimen) 02/04/2018 1:32 AM CDT 02/04/2018 1:36 AM CDT Narrative [facility] - 02/04/2018 2:11 AM CDT THE COLLECTION LOCATION IS [facility] Florence Zepeda MD LAB BLOOD ORDERABLES [facility] al Result [facility] [place] [address] * (ABNORMAL) Urinalysis reflex to microscopic Urine (02/04/2018 1:32 AM CDT) Color, ur Dariela Yellow [facility] Clarity, ur Cloudy(A) Clear [facility] Specific gravity, ur 1.032(H) 1.010 - 1.025 [facility] pH, urine 5.0 [facility] Protein, ur ql 1+(A) Negative [facility] Glucose, ur ql Negative Negative [facility] Ketones, ur Negative Negative [facility] Bilirubin, ur Negative Negative [facility] Blood, ur 2+(A) Negative [facility] Urobilinogen, ur 2.0(A) <2.0 mg/dL [facility] Nitrite, ur Negative Negative [facility] Leukocyte esterase, ur Negative Negative [facility] Urine 02/04/2018 1:32 AM CDT 02/04/2018 1:36 AM CDT Narrative [facility] - 02/04/2018 1:53 AM CDT THE [place] COLLECTION LOCATION IS [place] [address] Urine pH is affected by diet, medications, systemic acid-base disturbances, and renal tubular function. ??pH may affect urinary stone formation. ??For example, urine pH below 6.0 may help reduce the tendency for calcium phosphate stones and pH greater than 6.0 may reduce the tendency for uric acid stone formation. Source: [facility] [employer]. Last revised 04-18-2017 Florence Zepeda MD LAB URINE ORDERABLES Fin al Result [facility] [place] [address] * Drug screen, urine (02/04/2018 1:32 AM CDT) Amphetamines, Class Presumptive [facility] Comment: Interpretive Data Immunoassay Screen cutoff level 500 ng/mL. Samples containing greater than 500 ng/mL of amphetamine/methamphetamine or other cross-reacting substances are reported as presumptive and submitted for confirmatory testing. See separate confirmatory results for final interpretation.Results are to be used for medical purposes only. ? Current interpretive data was last revised 2015. Barbiturates, Class None detected [facility] Comment: Interpretive Data Immunoassay Screen cutoff level 200 ng/mL. Samples containing greater than 200 ng/mL of barbiturates or other cross-reacting substances are reported as screen positive, but are not routinely submitted for confirmatory testing. If confirmation is required, please contact the laboratory. Results are to be used for medical purposes only. Current interpretive data was last revised 2017. Benzodiazepines, ur None detected [facility] Comment: Interpretive Data Immunoassay Screen cutoff level 200 ng/mL. Samples containing greater than 200 ng/mL of benzodiazepines or other cross-reacting substances are reported as screen positive, but are not routinely submitted for confirmatory testing. If confirmation is required, please contact the laboratory. Results are to be used for medical purposes only. Current interpretive data was last revised 2015. Cannabinoids, Screen Positive Screen [facility] Comment: Interpretive Data Immunoassay Screen cutoff level 50 ng/mL. Samples containing greater than 50 ng/mL of cannabinoids or other cross-reacting substances are reported as presumptive and submitted for confirmatory testing on obstetrics and pediatric patients only. ??Cannabinoids screen result is reported as screen positive for all other adults;confirmation is not performed unless requested. Results are to be used for medical purposes only. ? Current interpretive data was last revised 2015. Cocaine metabolite None detected [facility] Comment: Interpretive Data Immunoassay Screen cutoff level 150 ng/mL. Samples containing greater than 150 ng/mL of cocaine metabolite or other cross-reacting substances are reported as presumptive and submitted for confirmatory testing. See separate confirmatory results for final interpretation. Results are to be used for medical purposes only. Current interpretive data was last revised 2015. Methadone, ur None detected [facility] Comment: Interpretive Data Immunoassay Screen cutoff level 300 ng/mL. Samples containing greater than 300 ng/mL of methadone or other cross-reacting substances are reported as presumptive and submitted for confirmatory testing. ??See separate confirmatory results for final interpretation. ??Results are to be used for medical purposes only. ? Current interpretive data was last revised 2015. Opiates, Class None detected [facility] Comment: Interpretive Data Immunoassay Screen cutoff level 300 ng/mL. Samples containing greater than 300 ng/mL of opiates or other cross-reacting substances are reported as presumptive and submitted for confirmatory testing. ??See separate confirmatory results for final interpretation. ??Testing does not include opioids. ??Results are to be used for medical purposes only. Current interpretive data was last revised 2015. Oxycodone, ur None detected [facility] Comment: Interpretive Data Immunoassay Screen cutoff level 100 ng/mL. ??Samples containing greater than 100 ng/mL of oxycodone or other cross-reacting substances are reported as presumptive and submitted for confirmatory testing. ??See separate confirmatory results for final interpretation. ??Results are to be used for medical purposes only. Current interpretive data was last revised on 2015. Phencyclidine, ur None detected [facility] Comment: Interpretive Data Immunoassay Screen cutoff level 25 ng/mL. Samples containing greater than 25 ng/mL of phencyclidine (PCP) or other cross-reacting substances are reported as presumptive and submitted for confirmatory testing. ??See separate confirmatory results for final interpretation. Results are to be used for medical purposes only. ? Current interpretive data was last revised 2015. Urine 02/04/2018 1:32 AM CDT 02/04/2018 1:58 AM CDT Narrative [facility] - 02/04/2018 2:36 AM CDT THE COLLECTION LOCATION IS [place] [address] Baljeet Torres MD LAB URINE ORDERA BLES Final Result Performing Organization Address City/[facility] Co de Phone Number [facility] [place] [address] * Hepatic function panel (02/04/2018 12:59 AM CDT) Bilirubin, total 0.5 0.1 - 1.2 mg/dL [facility] Bilirubin, direct <0.2 0.1 - 0.3 mg/dL [facility] Protein, pl 7.3 6.5 - 8.5 g/dL [facility] Albumin 3.7 3.5 - 5.0 g/dL [facility] Alk phos 92 40 - 130 Units/L [facility] ALT 15 7 - 45 Units/L [facility] AST 29 10 - 45 Units/L [facility] Blood specimen (specimen) 02/04/2018 12:59 AM CDT 02/04/2018 1:05 AM CDT Narrative [facility] - 02/04/2018 2:08 AM CDT us Notinfile Unknown LAB BLOOD ORDERABLES Final Res ult Performing Organization Address [facility] Co de Phone Number [facility] [place] [address] * TSH reflex to free T4 (02/04/2018 12:59 AM CDT) TSH 3.40 0.30 - 4.20 mcIUnit/mL [facility] Blood specimen (specimen) 02/04/2018 12:59 AM CDT 02/04/2018 1:05 AM CDT Narrative [facility] - 02/04/2018 2:07 AM CDT us Notinfile Unknown LAB BLOOD ORDERABLES Final Res ult Performing Organization Address [facility] Co de Phone Number [facility] [place] [address] * Lipase (02/04/2018 12:59 AM CDT) Pathologist [facility] Lipase 47 10 - 99 Units/L [facility] Blood specimen (specimen) 02/04/2018 12:59 AM CDT 02/04/2018 1:05 AM CDT Narrative [facility] - 02/04/2018 2:07 AM CDT us Notinfile Unknown LAB BLOOD ORDERABLES Final Res ult Performing Organization Address [facility] de Phone Number [facility] [place] [address] * (ABNORMAL) Differential, auto (02/04/2018 12:59 AM CDT) [facility] Neutrophil abs 6.2 1.7 - 6.5 K/cumm [facility] Imm gran abs 0.0 0.0 - 0.1 K/cumm [facility] Lymphocyte abs 1.9 0.8 - 3.3 K/cumm [facility] Monocyte abs 0.9(H) 0.2 - 0.8 K/cumm [facility] Eosinophil abs 0.2 0.0 - 0.5 K/cumm [facility] Basophil abs 0.0 0.0 - 0.1 K/cumm [facility] Neutrophil pct 67.6 % [facility] Comment: Interpretive Data Percent cell count reference ranges are not reported, since discordance with absolute values may lead to misinterpretation of CBC data. Current Interpretive Data was last revised on 2017. Imm gran pct 0.3 % [facility] Comment: Interpretive Data Percent cell count reference ranges are not reported, since discordance with absolute values may lead to misinterpretation of CBC data. Current Interpretive Data was last revised on 2017. Lymphocyte pct 20.4 % [facility] Comment: Interpretive Data Percent cell count reference ranges are not reported, since discordance with absolute values may lead to misinterpretation of CBC data. Current Interpretive Data was last revised on 2017. Monocyte pct 9.4 % [facility] Comment: Interpretive Data Percent cell count reference ranges are not reported, since discordance with absolute values may lead to misinterpretation of CBC data. Current Interpretive Data was last revised on 2017. Eosinophil pct 2.1 % [facility] Comment: Interpretive Data Percent cell count reference ranges are not reported, since discordance with absolute values may lead to misinterpretation of CBC data. Current Interpretive Data was last revised on 2017. Basophil pct 0.2 % [facility] Comment: Interpretive Data Percent cell count reference ranges are not reported, since discordance with absolute values may lead to misinterpretation of CBC data. Current Interpretive Data was last revised on 2017. Blood specimen (specimen) 02/04/2018 12:59 AM CDT 02/04/2018 1:06 AM CDT Narrative [facility] - 02/04/2018 1:15 AM CDT Baljeet Torres MD LAB BLOOD ORDERA BLES Final Result [facility] [place] [address] * Ethanol (02/04/2018 12:59 AM CDT) Ethanol <10.0 <=10.0 mg/dL [facility] Comment: Interpretive Data: If ethanol is the only drug taken, the blood level can be roughly correlated with the clinical findings: 0 - 100 mg/dL ?? Subclinical findings 100-200 mg/dL ?? Emotional instability 150-200 mg/dL ?? Confusion 250-400 mg/dL ?? Stupor 350-500 mg/dL ?? Coma 500-up ??mg/dL ?? Possible Current interpretive data was last revised on 2008. Blood specimen (specimen) 02/04/2018 12:59 AM CDT 02/04/2018 1:06 AM CDT Narrative [facility] - 02/04/2018 1:26 AM CDT THE COLLECTION LOCATION IS [facility]225 Baljeet Torres MD LAB BLOOD ORDERA BLES Final Result [facility] [place] [address] * Basic metabolic panel (02/04/2018 12:59 AM CDT) Sodium 139 135 - 145 mmol/L [facility] Potassium, pl 3.8 3.3 - 4.9 mmol/L [facility] Chloride 105 97 - 110 mmol/L [facility] CO2 25 22 - 32 mmol/L [facility] Anion gap 9 2 - 15 mmol/L [facility] BUN 12 8 - 25 mg/dL [facility] Creatinine 0.75 0.60 - 1.10 mg/dL [facility] Glucose 92 70 - 199 mg/dL [facility] Comment: Interpretive Data Fasting glucose >/= [...] interpretive data was last revised 2017. Calcium 9.5 8.5 - 10.3 mg/dL [facility] Blood specimen (specimen) 02/04/2018 12:59 AM CDT 02/04/2018 1:05 AM CDT Narrative [facility] - 02/04/2018 1:31 AM CDT THE COLLECTION LOCATION IS Baljeet Torres MD LAB BLOOD ORDERA BLES Final Result [facility] [place] [address] * (ABNORMAL) CBC with auto differential (02/04/2018 12:59 AM CDT) [facility] WBC 9.2 3.8 - 9.9 K/cumm [facility] Hgb 8.7(L) 11.9 - 15.5 g/dL [facility] Hct 29.1(L) 35.6 - 45.5 % [facility] Plt 307 150 - 400 K/cumm [facility] MPV 9.2 9.1 - 12.3 fL [facility] RBC 4.03 3.90 - 5.20 M/cumm [facility] MCV 72.2(L) 81.3 - 96.4 fL [facility] MCH 21.6(L) 27.1 - 33.3 pg [facility] MCHC 29.9(L) 32.3 - 35.7 g/dL [facility] RDW CV 19.0(H) 11.1 - 14.9 % [facility] RDW SD 49.2(H) 35.7 - 48.1 fL [facility] NRBC abs 0.00 0.00 - 0.01 K/cumm [facility] Blood specimen (specimen) (Blood, Venous) 02/04/2018 12:59 AM CDT 02/04/2018 1:06 AM CDT Narrative [facility] - 02/04/2018 1:15 AM CDT THE COLLECTION LOCATION IS Baljeet Torres MD LAB BLOOD ORDERA BLES Final Result [facility] [place] [address] * Troponin I (02/04/2018 12:59 AM CDT) Troponin I <0.03 0.00 - 0.03 ng/mL [facility] Comment: Interpretive Data: Normal plasma Troponin [...] for Troponin assay. References: 1. Clin Chem 2013;59:[id number] 2. Journal of the [employer] 2012;60:1581-98 Current Interpretive Data Last Revised Date: 2017. Blood specimen (specimen) 02/04/2018 12:59 AM CDT 02/04/2018 1:05 AM CDT Narrative [facility] - 02/04/2018 1:38 AM CDT THE COLLECTION LOCATION IS us Baljeet Torres MD LAB BLOOD ORDERA BLES Final Result [facility] [place] [address] * XR Chest Pa Lateral 2 Vw [...] PHD Electronically signed by: Keshawn Mandujano M.D. us Baljeet Torres MD IMG XR PROCEDURE S Final Result * ECG 12-LEAD (02/03/2018 8:12 PM CDT) Narrative [facility] - 02/03/2018 8:12 PM CDT Sonja Jesus MD ? 02/03/2018 ??8:13 PM ECG 12 lead Date/Time: 02/03/2018 8:12 PM Performed by: SONJA JESUS Authorized by: SONJA JESUS Rate: ??ECG rate: ??80 ??ECG rate assessment: normal ?? Rhythm: ??Rhythm: sinus rhythm ?? Ectopy: ??Ectopy: none ?? QRS: ??QRS axis: ??Normal Conduction: ??Conduction: normal ?? ST segments: ??ST segments: ??Normal T waves: ??T waves: normal ?? Previous ECG: ??Previous ECG: ??Unavailable Interpretation: ??Interpretation: normal ?? Recommended Follow-up: ??Recommended follow up: further workup in the ED ?? Procedure Note Sonja Jesus MD - 02/03/2018 8:12 PM CDT Procedure ECG 12 lead Date/Time: 02/03/2018 8:12 PM Performed by: SONJA JESUS Authorized by: SONJA JESUS Rate: ECG rate: 80 ECG rate assessment: normal Rhythm: Rhythm: sinus rhythm Ectopy: Ectopy: none QRS: QRS axis: Normal Conduction: Conduction: normal ST segments: ST segments: Normal T waves: T waves: normal Previous ECG: Previous ECG: Unavailable Interpretation: Interpretation: normal Recommended Follow-up: Recommended follow up: further workup in the ED Sonja Jesus MD 02/03/182012 us Baljeet Torres MD ECG ORDERABLES Final Result [facility] documented in this encounter Visit Diagnoses Diagnosis Cognitive and behavioral changes- Primary Amphetamine abuse (HCC) Cannabis abuse Nondependent cannabis abuse, unspecified ETOH abuse Nondependent alcohol abuse, unspecified drinking behavior Transient alteration of awareness Patient noncompliant with anticoagulant medication Right leg swelling alcohol use disorder (CMS/HCC) 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 History of DVT (deep vein thrombosis) Chronic acquired lymphedema Other noninfectious lymphedema Hypertension Unspecified essential hypertension Anemia Unspecified anemia Polysubstance abuse (CMS/HCC) (HCC) Other, mixed, or unspecified nondependent drug abuse, unspecified documented in this encounter Administered Medications Inactive Administered Medications - up to 3 most recent administrations Medication Order MAR Action Action Date Dose Rate Site acetaminophen (TYLENOL) tablet 1,000 mg 1,000 mg, oral, Once, On Sat02/04/18 at 0534, For 1 dose Given 02/04/2018 6:20 AM CDT 1,000 mg acetaminophen (TYLENOL) tablet 1,000 mg 1,000 mg, oral, Every 8 hours PRN, 1st line for pain, Starting on Sat02/04/18 at 1821 Given 02/06/2018 8:54 AM CDT 1,000 mg Given 02/06/2018 12:05 AM CDT 1,000 mg Given 02/05/2018 8:56 AM CDT 1,000 mg benzocaine (ORAJEL) 10 % mucosal gel mouth/throat, 2 times daily PRN, other, pain, Starting on Sat02/06/18 at 1450 chlordiazePOXIDE (LIBRIUM) capsule 25 mg 25 mg, oral, Every 4 hours PRN, other, Score between 3 and 5 on Alcohol Withdrawl Assessment, Starting on Sat02/04/18 at 1745, For 6 days, HOLD for any status indicating over sedation including the following: drifts off to sleep during conversation, minimal or no response to verbal or physical stimulation, or respiratory rate less than 10 breaths per minute. Re-assess in 4 hours., Indications: Alcohol Withdrawal SyndromeIndications:Alcohol Withdrawal Syndrome Given 02/06/2018 12:59 PM CDT 25 mg Given 02/06/2018 4:48 AM CDT 25 mg Given 02/06/2018 12:47 AM CDT 25 mg chlordiazePOXIDE (LIBRIUM) capsule 25 mg 25 mg, oral, Every 2 hours PRN, other, Score between 6 and 12 on Alcohol Withdrawl Assessment, Starting on Sat02/04/18 at 1745, For 6 days, HOLD for any status indicating over sedation including the following: drifts off to sleep during conversation, minimal or no response to verbal or physical stimulation, or respiratory rate less than 10 breaths per minute. Re-assess in 2 hours., Indications: Alcohol Withdrawal SyndromeIndications:Alcohol Withdrawal Syndrome Given 02/06/2018 10:52 AM CDT 25 mg Given 02/06/2018 8:54 AM CDT 25 mg chlordiazePOXIDE (LIBRIUM) capsule 25 mg 25 mg, oral, Every 6 hours, First dose on Sat02/07/18 at 0000, After 50 mg doses are complete Given 02/07/2018 11:39 AM CDT 25 mg Given 02/07/2018 6:00 AM CDT 25 mg Given 02/06/2018 11:44 PM CDT 25 mg chlordiazePOXIDE (LIBRIUM) capsule 50 mg 50 mg, oral, Every 12 hours, First dose on Sat02/06/18 at 1545, For 2 doses Given 02/07/2018 3:49 AM CDT 50 mg Given 02/06/2018 4:36 PM CDT 50 mg enoxaparin (LOVENOX) syringe 100 mg 100 mg (rounded from 106.8 mg = 0.75 mg/kg ? 142.4 kg), subcutaneous, Once, On Sat02/04/18 at 0521, For 1 dose, Indications: Venous ThrombosisIndications:Venous Thrombosis Given 02/04/2018 6:20 AM CDT 100 mg Left Upper Abdomen enoxaparin (LOVENOX) syringe 100 mg 100 mg (rounded from 106.8 mg = 0.75 mg/kg ? 142.4 kg), subcutaneous, Every 12 hours scheduled, First dose (after last modification) on Sat02/04/18 at 2100, Indications: Venous ThrombosisIndications:Venous Thrombosis Given 02/07/2018 8:24 AM CDT 100 mg Left Lower Abdomen Given 02/06/2018 8:07 PM CDT 100 mg Le ft Upper Abdomen Given 02/06/2018 8:20 AM CDT 100 mg Le ft Lower Abdomen escitalopram (LEXAPRO) tablet 20 mg 20 mg, oral, Daily, First dose on Amber 02/06/18 at 1030 Given 02/07/2018 8:24 AM CDT 20 mg Given 02/06/2018 10:52 AM CDT 20 mg folic acid (FOLVITE) 1 mg in sodium chloride 0.9% 50 mL IVPB 1 mg, intravenous, at 100.4 mL/hr, Administer over 30 Minutes, Daily, First dose on Sat02/04/18 at 0900 New Bag 02/04/2018 8:30 AM CDT 1 mg 100.4 mL/hr furosemide (LASIX) tablet 40 mg 40 mg, oral, Daily, First dose on Sat02/04/18 at 1830 Given 02/07/2018 8:24 AM CDT 40 mg Given 02/06/2018 8:21 AM CDT 40 mg Given 02/05/2018 8:47 AM CDT 40 mg hydroCHLOROthiazide (HYDRODIURIL) tablet 12.5 mg 12.5 mg, oral, Daily, First dose on Sat02/04/18 at 1830 Given 02/07/2018 8:24 AM CDT 12.5 mg Given 02/06/2018 8:21 AM CDT 12.5 mg Given 02/05/2018 8:47 AM CDT 12.5 mg ioversol (OPTIRAY 350) syringe syringe 100 mL 100 mL, intravenous, Once in imaging, contrast, Starting on Sat02/04/18 at 0429, For 1 dose Given 02/04/2018 5:11 AM CDT 100 mL losartan (COZAAR) tablet 50 mg 50 mg, oral, Daily, First dose on Sat02/04/18 at 1830 Given 02/07/2018 8:24 AM CDT 50 mg Given 02/06/2018 8:21 AM CDT 50 mg Given 02/05/2018 8:47 AM CDT 50 mg ondansetron (ZOFRAN) injection 4 mg 4 mg, intravenous, Every 6 hours PRN, nausea, vomiting, if not tolerating PO, Starting on Sat02/04/18 at 1745, Indications: Nausea and VomitingIndications:Nausea and Vomiting ondansetron ODT (ZOFRAN-ODT) disintegrating tablet 4 mg 4 mg, oral, Every 6 hours PRN, nausea, vomiting, Starting on Sat02/04/18 at 1745, Indications: Nausea and VomitingIndications:Nausea and Vomiting sodium chloride 0.9% 0.9% infusion - ADS Override Pull Starting on Sat02/04/18 at 2151, For 1 dose, KIMMY YAÑEZ: cabinet override New Bag 02/04/2018 10:01 PM CDT 1,000 mL 30 mL/hr sodium chloride 0.9% flush 0.5-20 mL 0.5-20 mL, intra-catheter, Every 8 hours scheduled, First dose on Sat02/04/18 at 2200, Flush volume based on line type and size. , Indications: FlushingIndications:Flushing Given 02/07/2018 6:00 AM CDT 10 mL Given 02/06/2018 10:15 PM CDT 10 mL Given 02/06/2018 5:56 PM CDT 10 mL thiamine (VITAMIN B-1) 250 mg in sodium chloride 0.9% 100 mL IVPB 250 mg, intravenous, at 205 mL/hr, Administer over 30 Minutes, Every 24 hours scheduled, First dose on Sat02/07/18 at 0900 New Bag 02/07/2018 8:24 AM CDT 250 mg 205 mL/hr thiamine (VITAMIN B-1) 500 mg in sodium chloride 0.9% 100 mL IVPB 500 mg, intravenous, at 210 mL/hr, Administer over 30 Minutes, Once, On Sat02/04/18 at 0412, For 1 dose New Bag 02/04/2018 6:20 AM CDT 500 m g 210 mL/hr thiamine (VITAMIN B-1) 500 mg in sodium chloride 0.9% 100 mL IVPB 500 mg, intravenous, at 210 mL/hr, Administer over 30 Minutes, 3 times daily, First dose (after last modification) on Sat02/04/18 at 2100, For 6 doses New Bag 02/06/2018 5:11 PM CDT 500 mg 210 mL/hr New Bag 02/06/2018 8:20 AM CDT 500 mg 210 mL/hr New Bag 02/05/2018 8:12 PM CDT 500 mg 210 mL/hr warfarin (COUMADIN) tablet 5 mg 5 mg, oral, Daily (for warfarin), First dose on Sat02/04/18 at 1830, Indications: Venous ThrombosisIndications:Venous Thrombosis Given 02/06/2018 5:56 PM CDT 5 mg Given 02/05/2018 6:13 PM CDT 5 mg Given 02/04/2018 6:11 PM CDT 5 mg documented in this encounter Discontinued Medications Medication Sig Discontinue Reason Start Date End Da te chlordiazePOXIDE (LIBRIUM) 25 mg capsule Take 1 capsule (25 mg total) by mouth every 6 (six) hours. For 2 doses, then twice a day for two doses, then once a day. 02/07/2018 02/07/2018 warfarin (COUMADIN) 5 mg tabletIndications:Veno us Thrombosis Take 5 mg by mouth daily. Stop Taking at Discharge 02/07/2018 ALPRAZolam (XANAX) 0.5 mg tablet Take 0.5 mg by mouth nightly as needed for anxiety. Stop Taking at Discharge 02/07/2018 documented as of this encounter Historical Medications * This list may reflect changes made after this encounter. ALPRAZolam (XANAX) 0.5 mg tablet Take 0.5 mg by mouth nightly as needed for anxiety. 02/07/2018 losartan-hydroCHL OROthiazide (HYZAAR) 50-12.5 mg per tablet Take 1 tablet by mouth daily. 04/29/2019 furosemide (LASIX) 40 mg tablet Take 40 mg by mouth daily. 03/28/2020 warfarin (COUMADIN) 5 mg tabletIndications :Venous Thrombosis Take 5 mg by mouth daily. 02/07/2018 added in this encounter Active and Recently Administered Medications Times are shown in CDT. Scheduled Medication Order 02/05/2018 02/06/2018 02/07/2018 chlordiazePOXIDE (LIBRIUM) capsule 25 mg 25 mg, oral, Every 6 hours, First dose on Sat02/07/18 at 0000, After 50 mg doses are complete 2344 (Given - Provider: Bonita Linda RN) 0600 (Given - Provider: Bonita Linda, GEOVANY)1139 (Given - Provider: Delicia Adnrade, GEOVANY) chlordiazePOXIDE (LIBRIUM) capsule 50 mg (COMPLETED) 50 mg, oral, Every 12 hours, First dose on Sat02/06/18 at 1545, For 2 doses 1636 (Given - Provider: Delicia Andrade RN) 0349 (Given - Provider: Bonita Linda RN) enoxaparin (LOVENOX) syringe 100 mg 100 mg (rounded from 106.8 mg = 0.75 mg/kg ? 142.4 kg), subcutaneous, Every 12 hours scheduled, First dose (after last modification) on Sat02/04/18 at 2100, Indications: Venous Thrombosis 0849 (Given - Provider: Tito Owens RN)2011 (Given - Provider: Bonita Linda RN) 0820 (Given - Provider: Delicia Andrade RN)2006 (Given - Provider: Bonita Linda RN) 0824 (Given - Provider: Delicia Andrade RN) escitalopram (LEXAPRO) tablet 20 mg 20 mg, oral, Daily, First dose on Sat02/06/18 at 1030 1052 (Given - Provider: Delicia Andrade RN) 0824 (Given - Provider: Delicia Andrade, GEOVANY) furosemide (LASIX) tablet 40 mg 40 mg, oral, Daily, First dose on Sat02/04/18 at 1830 0847 (Given - Provider: Tito Owens RN) 0821 (Given - Provider: Delicia Andrade RN) 0824 (Given - Provider: Delicia Andrade, GEOVANY) hydroCHLOROthiazide (HYDRODIURIL) tablet 12.5 mg 12.5 mg, oral, Daily, First dose on Sat02/04/18 at 1830 0847 (Given - Provider: Tito Owens RN) 0821 (Given - Provider: Delicia Andrade RN) 0824 (Given - Provider: Delicia Andrade RN) losartan (COZAAR) tablet 50 mg 50 mg, oral, Daily, First dose on Sat02/04/18 at 1830 0847 (Given - Provider: Tito Owens RN) 0821 (Given - Provider: Delicia Andrade RN) 0824 (Given - Provider: Delicia Andrade RN) naproxen (NAPROSYN) tablet 500 mg 500 mg, oral, Once, On Sat02/04/18 at 2230, For 1 dose 0057 (Not Given - Provider: Michelle William RN - Reason: Patient/family refused - Comment: per RN previous shift) sodium chloride 0.9% flush 0.5-20 mL 0.5-20 mL, intra-catheter, Every 8 hours scheduled, First dose on Sat02/04/18 at 2200, Flush volume based on line type and size. , Indications: Flushing 0509 (Given - Provider: Michelle William RN)1630 (Given - Provider: Tito Owens RN)2015 (Given - Provider: Bonita Linda RN) 0600 (Due)1756 (Given - Provider: Delicia Andrade, GEOVANY)2215 (Given - Provider: Bonita Linda RN) 0600 (Given - Provider: Bonita Linda RN)1400 (Due) thiamine (VITAMIN B-1) 250 mg in sodium chloride 0.9% 100 mL IVPB 250 mg, intravenous, at 205 mL/hr, Administer over 30 Minutes, Every 24 hours scheduled, First dose on Sat02/07/18 at 0900 0824 (New Bag - Provider: Delicia Andrade RN) thiamine (VITAMIN B-1) 500 mg in sodium chloride 0.9% 100 mL IVPB (COMPLETED) 500 mg, intravenous, at 210 mL/hr, Administer over 30 Minutes, 3 times daily, First dose (after last modification) on Sat02/04/18 at 2100, For 6 doses 1019 (New Bag - Provider: Tito Owens RN)1631 (New Bag - Provider: Tito Owens RN)2011 (New Bag - Provider: Bonita Linda RN) 0820 (New Bag - Provider: Delicia Andrade, GEOVANY)1711 (New Bag - Provider: Delicia Andrade, GEOVANY) warfarin (COUMADIN) tablet 5 mg 5 mg, oral, Daily (for warfarin), First dose on Sat02/04/18 at 1830, Indications: Venous Thrombosis 1813 (Given - Provider: Tito Owens, GEOVANY) 1756 (Given - Provider: Delicia Andrade RN) PRN Medication Order 02/05/2018 02/06/2018 02/07/2018 acetaminophen (TYLENOL) tablet 1,000 mg 1,000 mg, oral, Every 8 hours PRN, 1st line for pain, Starting on Sat02/04/18 at 1821 0056 (Given - Provider: Michelle William RN)0856 (Given - Provider: Tito Owens RN) 0005 (Given - Provider: Bonita Linda, GEOVANY)0854 (Given - Provider: Delicia Andrade RN) benzocaine (ORAJEL) 10 % mucosal gel mouth/throat, 2 times daily PRN, other, pain, Starting on Amber 02/06/18 at 1450 chlordiazePOXIDE (LIBRIUM) capsule 25 mg (CANCELED)(Linked Group 1) 25 mg, oral, Every 4 hours PRN, other, Score between 3 and 5 on Alcohol Withdrawl Assessment, Starting on Sat02/04/18 at 1745, For 6 days, HOLD for any status indicating over sedation including the following: drifts off to sleep during conversation, minimal or no response to verbal or physical stimulation, or respiratory rate less than 10 breaths per minute. Re-assess in 4 hours., Indications: Alcohol Withdrawal Syndrome 0055 (Given - Provider: Michelle William RN)0513 (Given - Provider: Michelle William RN)0855 (Given - Provider: Tito Owens, GEOVANY)1213 (Given - Provider: Tito Owens, GEOVANY)1630 (Given - Provider: Tito Owens, GEOVANY)2030 (Given - Provider: Bonita Linda, GEOVANY) 0047 (Given - Provider: Bonita Linda, GEOVANY)0448 (Given - Provider: Bonita Linda, GEOVANY)0854 (See Alternative - Provider: Delicia Andrade RN)1052 (See Alternative - Provider: Delicia Andrade, GEOVANY)1259 (Given - Provider: Delicia Andrade RN) chlordiazePOXIDE (LIBRIUM) capsule 25 mg (CANCELED)(Linked Group 1) 25 mg, oral, Every 2 hours PRN, other, Score between 6 and 12 on Alcohol Withdrawl Assessment, Starting on Sat02/04/18 at 1745, For 6 days, HOLD for any status indicating over sedation including the following: drifts off to sleep during conversation, minimal or no response to verbal or physical stimulation, or respiratory rate less than 10 breaths per minute. Re-assess in 2 hours., Indications: Alcohol Withdrawal Syndrome 0055 (See Alternative - Provider: Michelle William RN)0513 (See Alternative - Provider: Michelle William RN)0855 (See Alternative - Provider: Tito Owens RN)1213 (See Alternative - Provider: Tito Owens, GEOVANY)1630 (See Alternative - Provider: Tito Owens, GEOVANY)2030 (See Alternative - Provider: Bonita Linda, GEOVANY) 0047 (See Alternative - Provider: Bonita Linda, GEOVANY)0448 (See Alternative - Provider: Bonita Linda, GEOVANY)0854 (Given - Provider: Delicia Andrade, GEOVANY)1052 (Given - Provider: Delicia Andrade, GEOVANY)1259 (See Alternative - Provider: Delicia Andrade, GEOVANY) ondansetron (ZOFRAN) injection 4 mg(Linked Group 2) 4 mg, intravenous, Every 6 hours PRN, nausea, vomiting, if not tolerating PO, Starting on Sat02/04/18 at 1745, Indications: Nausea and Vomiting ondansetron ODT (ZOFRAN-ODT) disintegrating tablet 4 mg(Linked Group 2) 4 mg, oral, Every 6 hours PRN, nausea, vomiting, Starting on Sat02/04/18 at 1745, Indications: Nausea and Vomiting sodium chloride 0.9% flush 0.5-20 mL 0.5-20 mL, intra-catheter, As needed, line care, Starting on Sat02/04/18 at 1745, Flush volume based on line type and size. Flush before and after each use. , Indications: Flushing Linked Groups Order Group 1: chlordiazePOXIDE (LIBRIUM) capsule 25 mg (CANCELED)Jump to med 25 mg, oral, Every 4 hours PRN, other, Score between 3 and 5 on Alcohol Withdrawl Assessment, Starting on Sat02/04/18 at 1745, For 6 days, HOLD for any status indicating over sedation including the following: drifts off to sleep during conversation, minimal or no response to verbal or physical stimulation, or respiratory rate less than 10 breaths per minute. Re-assess in 4 hours., Indications: Alcohol Withdrawal Syndrome Or chlordiazePOXIDE (LIBRIUM) capsule 25 mg (CANCELED)Jump to med 25 mg, oral, Every 2 hours PRN, other, Score between 6 and 12 on Alcohol Withdrawl Assessment, Starting on Sat02/04/18 at 1745, For 6 days, HOLD for any status indicating over sedation including the following: drifts off to sleep during conversation, minimal or no response to verbal or physical stimulation, or respiratory rate less than 10 breaths per minute. Re-assess in 2 hours., Indications: Alcohol Withdrawal Syndrome Or LORazepam (ATIVAN) injection 1 mg (CANCELED) 1 mg, intravenous, Every 1 hour PRN, other, Score between 13 and 18 on Alcohol Withdrawl Assessment, Starting on Sat02/04/18 at 1745, For 6 days, HOLD for any status indicating over sedation including the following: drifts off to sleep during conversation, minimal or no response to verbal or physical stimulation, or respiratory rate less than 10 breaths per minute., Indications: Alcohol Withdrawal Syndrome Or LORazepam (ATIVAN) injection 1 mg (CANCELED) 1 mg, intramuscular, Every 1 hour PRN, other, Score between 13 and 18 on Alcohol Withdrawl Assessment, Starting on Sat02/04/18 at 1745, For 6 days, Administer IM if unable to provide IV Push. HOLD for any status indicating over sedation including the following: drifts off to sleep during conversation, minimal or no response to verbal or physical stimulation, or respiratory rate less than 10 breaths per minute., Indications: Alcohol Withdrawal Syndrome Or LORazepam (ATIVAN) injection 2 mg (CANCELED) 2 mg, intravenous, Every 1 hour PRN, other, Score greater than 18 on Alcohol Withdrawl Assessment, Starting on Sat02/04/18 at 1745, For 6 days, HOLD for any status indicating over sedation including the following: drifts off to sleep during conversation, minimal or no response to verbal or physical stimulation, or respiratory rate less than 10 breaths per minute., Indications: Alcohol Withdrawal Syndrome Or LORazepam (ATIVAN) injection 2 mg (CANCELED) 2 mg, intramuscular, Every 1 hour PRN, other, Score greater than 18 on Alcohol Withdrawl Assessment, Starting on Sat02/04/18 at 1745, For 6 days, Administer IM if unable to provide IV Push. HOLD for any status indicating over sedation including the following: drifts off to sleep during conversation, minimal or no response to verbal or physical stimulation, or respiratory rate less than 10 breaths per minute., Indications: Alcohol Withdrawal Syndrome Group 2: ondansetron ODT (ZOFRAN-ODT) disintegrating tablet 4 mgJump to med 4 mg, oral, Every 6 hours PRN, nausea, vomiting, Starting on Sat02/04/18 at 1745, Indications: Nausea and Vomiting Or ondansetron (ZOFRAN) injection 4 mgJump to med 4 mg, intravenous, Every 6 hours PRN, nausea, vomiting, if not tolerating PO, Starting on Sat02/04/18 at 1745, Indications: Nausea and Vomiting documented in this encounter Orders Medications Ordered That Syed ht Not Have Been Administered Count Last Ordered Date First Ordered Date benzocaine (ORAJEL) 10 % mucosal gel 1 04/2017 chlordiazePOXIDE (LIBRIUM) capsule 25 mg 2 02/04/2018 enoxaparin (LOVENOX) injection 150 mg 2 folic acid (FOLVITE) tablet 1 mg 1 02/05/20 18 LORazepam (ATIVAN) injection 1 mg 4 018 LORazepam (ATIVAN) injection 2 mg 4 018 multivit unrxhpwe-foaq-KF-ca lcium (THERA-M) tablet 1 tablet 1 02/04/2018 naproxen (NAPROSYN) tablet 500 mg 1 018 ondansetron (ZOFRAN) injection 4 mg 1 02/04 ondansetron ODT (ZOFRAN-ODT) disintegrating tablet 4 mg 1 02/04/2018 sodium chloride 0.9% flush 0.5-20 mL 1 01/08 thiamine (VITAMIN B-1) 500 m g in sodium chloride 0.9% 100 mL IVPB 2 02/04/2018 thiamine (VITAMIN B-1) tablet 100 mg 1 01/08 Diet Count Last Ordered Date First Orde red Date ADULT DISCHARGE DIET 1 02/07/2018 Nursing Count Last Ordered Date First Orde red Date DISCHARGE ACTIVITY 1 02/07/2018 DISCHARGE CALL PROVIDER 1 02/07/2018 DISCHARGE INSTRUCTIONS 2 02/07/2018 NURSING COMMUNICATION ORDER FREE TEXT 1 WEIGH PATIENT 1 02/04/2018 NURSING COMMUNICATION 1 02/03/2018 Consult Count Last Ordered Date First Orde red Date IP CONSULT TO PSYCHIATRY 1 02/04/2018 IV Count Last Ordered Date First Orde red Date SALINE LOCK IV 1 02/03/2018 Admission Count Last Ordered Date First Orde red Date ASSIGN PATIENT STATUS 1 02/04/2018 CORE MEASURES Count Last Ordered Date First Ord ered Date REASON FOR NO VTE PROPHYLAXIS AT ADMISSION 1 02/04/2018 ADT Patient Update Count Last Ordered Date Firs t Ordered Date ED IP DECISION TO ADMIT 1 02/04/[address] PLACE IN ED OBSERVATION 1 02/04/2018 documented in this encounter Care Teams Dice Dealer Relationship Specialty Start Date End Date Unknown, Notinfile PCP - General 02/04/18 02/17/18 documented as of this encounter
--- OUTSIDE RECORDS SUMMARY | 2024-03-24 19:03 | XMS_ITS | Patient Health Record ---
Author Organization [facility] Physician Sumi es Billing Info Address [address] [place] [address] [place] [address] Support Name Relationship Address Phone Tiarra Addison Guarantor Unknown [phone] Allergies No Known Allergies Reason For Referral No Information Medications Medication SIG (Take, Route, Frequency, Duration) Notes Start Date End Date Status Pantoprazole Sodium 40 MG 1 tablet, 30 m inutes before breakfast, then 30 minutes before diner Orally BID for 30 day(s) 11/28/2020 Active Xarelto 20 MG 1 tablet with food O rally Once a day for 30 day(s) Active Potassium Chloride ER 10 MEQ 1 tablet with food Orally Twice a day for 30 day(s) Active Metoprolol Succinate 25 MG 1 capsule Ora lly Once a day for 30 day(s) Active Amlodipine Besylate 5 MG 1 tablet Orally Once a day for 30 day(s) Active Sucralfate 1 GM 1 tablet dissolved i n water, 30 minutes before breakfast, then 30 minutes before diner Orally Twice a day for 30 day(s) 11/28/2020 Active Social History Tobacco Use: Social History Observation Description Date Details (start date - stop date) Never Smoker NA - NA Tobacco Status: Question Answer Notes Patient is a never smoker Problems No Known Problems Plan Of Treatment Pending Test Test Name Order Date CBC With Platelet No Differential(P-CBC) 07/28/2021 Insurance Providers Payer Name Payer Address Payer Phone Subscriber Number Group Number Insured Name Patient Relationship to Insured Coverage Start Date Coverage End Date [employer] [facility] [facility] [address] [address] [place], [place] [id number] Tiarra Addison Self - patient is the insured 3 Medical (General) History Medical History History ICD Code Hypertension Ulcers Anemia Blood clots- ARASELI lower extremities, one PE Surgical History Surgery Date(Month/Year) BTL Gastric Bypass
--- OUTSIDE RECORDS SUMMARY | 2024-03-24 19:03 | XMS_ITS | Patient Health Record ---
Author Organization [facility] Address [address] [place] [address] Care Team Providers Care Manager Decision Support Name Role Phone Chan Amaya Primary Care Provider Baltazar Kapoor Unavailable [phone] Allergies No Known Allergies Reason For Referral No Information Medications Medication SIG (Take, Route, Frequency, Duration) Notes Start Date End Date Status HYDROcodone-Acetamin ophen 10-325 MG 1 tablet as needed Orally every 6 hrs for 30 days Chronic Pain Syndrome- G89.4 Exempt 09/28/2022 Active traZODone HCl 50 MG TAKE 1 TABLET BY MOUTH EVERY DAY NEEDED Diagnosis Unavailable Oral for 30 Active Sucralfate 1 GM/10ML SHAKE LIQUID AND TA KE 1 ML BY MOUTH BEFORE MEALS AND AT BEDTIME Oral for 22 Active Zolpidem Tartrate 10 MG Oral for 30 Active Clobetasol Propionate 0.05 % External for 30 Active Social History Tobacco Use: Social History Observation Description Date Details (start date - stop date) Never Smoker NA - NA Tobacco Use/Smoking Question Answer Notes Are you a nonsmoker Alcohol Screen Question Answer Notes Did you have a drink containing alcohol in the p ast year? No Points 0 Interpretation Negative Problems Problem Type SNOMED Code ICD Code Onset Dates Problem Status W/U Status Risk Notes Problem Opioid dependence (34149713) Opioid dependence, uncomplicated (F11.20) Active confirmed Problem Chronic pain syndrome (312376972) Chronic pain syndrome (G89.4) Active confirmed Problem Osteoarthritis of knee (099597594) primary osteoarthritis bilateral knee (M17.0) Active confirmed Problem Drug addiction counseling (07181764) Drug abuse counseling and surveillance of drug abuser (Z71.51) Active confirmed Problem High risk drug monitoring status (160820143) [facility] (current) use of opiate analgesic (Z79.891) Active confirmed Plan Of Treatment Pending Test Test Name Order Date Knee 2V LEFT 01/09/2021 Knee 2V RIGHT 01/09/2021 Insurance Providers Payer Name Payer Address Payer Phone Subscriber Number Group Number Insured Name Patient Relationship to Insured Coverage Start Date Coverage End Date [employer] MED[employer] HMO-PPO [address] [address] [place] [address] [id number] Tiarra Addison Self - patient is the insured Medications Administered Medication Instructions Date of Administration Dosage Notes Dexamethasone 09/28/2022 4 mg increased k nee pain after twisting it while moving Toradol 09/28/2022 60 mg increased knee pain after twisting it while moving Medical (General) History Surgical History Surgery Date(Month/Year)
--- OUTSIDE RECORDS SUMMARY | 2024-03-24 19:03 | XMS_ITS | Clinical Summary ---
Author Organization Unknown Care Team Providers Care Chemistry Manager Name Role Phone SANTI KASPER, FAIZA Unavailable Unavailable KING GEOVANY, LASHAWN Unavailable Unavailable ALEXANDRIA PT, SHIRLEY Unavailable Unavailable EVGENY OT, FAM Unavailable Unavailable DASHAWN RN, MARKO Unavailable Unavailable Payers Payer Name Policy Type Policy Number Effective Date Expira tion Date [facility] [id number] RONEN.DEDE.TOM[place]S.C.[facility] [id number] Problems Condition Name Condition Details Condition Category Status Onset Date Resolution Date Last Treatment Date Treating Clinician Comments ENCOUNTER FOR CHANGE OR REMOVAL OF NONSURG WOUND DRESSING Active 10-09 00:00: 00 CUTANEOUS ABSCESS OF LEFT LOWER LIMB Active 704 00:00: 00 CELLULITIS OF RIGHT LOWER LIMB Active 4-15 00:00: 00 EXTENDED SPECTRUM BETA LACTAMASE (ESBL) RESISTANCE Active 10-09 00:00: 00 LYMPHEDEMA, NOT ELSEWHERE CLASSIFIED Active 09-06 00:00: 00 ACUTE EMBOLISM AND THROMBOSIS OF FEMORAL VEIN, BILATERAL Active 4-15 00:00: 00 HYPERTENSIVE HEART DISEASE WITH HEART FAILURE Active - 00:00: 00 CHRONIC DIASTOLIC (CONGESTIVE) HEART FAILURE Active - 00:00: 00 ANXIETY DISORDER, UNSPECIFIED Active - 00:00: 00 CHRONIC ATRIAL FIBRILLATION , UNSPECIFIED Active - 00:00: 00 ANEMIA, UNSPECIFIED Active 2020-04 2- 00:00: 00 MAJOR DEPRESSIVE DISORDER, RECURRENT, UNSPECIFIED Active - 00:00: 00 OT SPEECH/LANG DEFICITS FOLLOWING CEREBRAL INFARCTION Active - 00:00: 00 MORBID (SEVERE) OBESITY DUE TO EXCESS CALORIES Active 09-06 00:00: 00 BODY MASS INDEX [BMI] 50.0-59.9, ADULT Active 09-12 00:00: 00 DETENTION (CURRENT) USE OF ANTICOAGULAN TS Active 04-08 00:00: 00 PERSONAL HISTORY OF PULMONARY EMBOLISM Active 2020-04 00:00: 00 PERSONAL HISTORY OF OTHER VENOUS THROMBOSIS AND EMBOLISM Active 2020-04 00:00: 00 Allergies, Adverse Reactions, Alerts Allergy Name Allergy Type Status Severity Reaction(s) Onset Date Inactive Date Treating Clinician Comments NO KNOWN ALLERGIES Propensity to adverse reactions Active 09-12 11:22: 24 Medications Ordered Medication Name Filled Medication Name Start Date Stop Date Current Medication? Ordering Clinician Indication Dosage Frequency Signature (SIG) Comments Components amiodarone 200 mg tablet 09-12 00:00: 00 Yes [id number] HEART 1 tablet EVERY 12 HOURS 1 tablet EVERY 12 HOURS (route: oral) Med Classific ation: Cardiovas cular Therapy Agents gabapentin 100 mg capsule 09-12 00:00: 00 Yes [id number] PAIN 1 capsule BEDTIME 1 capsule BEDTIME (route: oral) Med Classific ation: Central Nervous System Agents magnesium 400 mg (as magnesium oxide) capsule 09-12 00:00: 00 Yes [id number] VITAMIN 1 capsule 2 TIMES DAILY 1 capsule 2 TIMES DAILY (route: oral) Med Classific ation: Electroly te Balance-N utritiona l Products metoprolol tartrate 25 mg tablet 09-12 00:00: 00 Yes [id number] HTN 1 tablet 2 TIMES DAILY 1 tablet 2 TIMES DAILY (route: oral) Med Classific ation: Cardiovas cular Therapy Agents Xarelto 10 mg tablet 09-12 00:00: 00 Yes [id number] THINNER 1 tablet DAILY 1 tablet DAILY (route: oral) Med Classific ation: Hematolog ical Agents ertapenem 1 gram solution for injection 10-16 00:00: 00 10-23 23:59 :00 No [id number] CELLULITUS 1 g DAILY 1 g DAILY (route: injection) Med Classific ation: Anti-Infe ctive Agents Heparin Lock Flush (Porcine) (PF) 100 unit/mL intravenous syringe 10-16 00:00: 00 10-23 23:59 :00 No [id number] AT END OF INFUSION 5 unit DAILY 5 unit DAILY (route: intravenou s) Med Classific ation: Hematolog ical Agents Normal Saline Flush 0.9 % injection syringe 10-16 00:00: 00 10-23 23:59 :00 No [id number] BEFORE AND AFTER INFUSION 10 mL DAILY 10 mL DAILY (route: injection) Med Classific ation: Electroly te Balance-N utritiona l Products Vital Signs Vital Name Observation Time Observation Value Commen ts Temperature 2021 16:08:00.000 98.4 [degF] Temperature 2021-12-15 17:36:00.000 98.6 [degF] Temperature 2021-12-08 11:29:00.000 97.8 [degF] Temperature 2021-12-01 10:39:00.000 98.5 [degF] Temperature 2021-11-29 09:54:00.000 97.7 [degF] Temperature 2021-11-28 10:08:00.000 97.2 [degF] Temperature 2021-11-24 09:50:00.000 97.8 [degF] Temperature 2021-11-22 15:14:00.000 97.3 [degF] Temperature 2021-11-17 21:47:00.000 98.6 [degF] Temperature 2021-11-16 10:20:00.000 97.3 [degF] Temperature 2021-11-15 18:06:00.000 98.2 [degF] Temperature 2021-11-13 12:52:00.000 97.8 [degF] Pulse 2021 16:08:00.000 68 /min Pulse 2021-12-15 17:36:00.000 72 /min Pulse 2021-12-08 11:29:00.000 70 /min Pulse 2021-12-01 10:39:00.000 62 /min Pulse 2021-11-29 09:54:00.000 78 /min Pulse 2021-11-28 10:08:00.000 67 /min Pulse 2021-11-24 09:50:00.000 80 /min Pulse 2021-11-22 15:14:00.000 60 /min Pulse 2021-11-17 21:47:00.000 84 /min Pulse 2021-11-16 10:20:00.000 78 /min Pulse 2021-11-15 18:06:00.000 72 /min Pulse 2021-11-13 12:52:00.000 72 /min O2 Saturation (%) 2021 16:08:00.000 98 % O2 Saturation (%) 2021-12-15 17:36:00.000 97 % O2 Saturation (%) 2021-12-08 11:29:00.000 97 % O2 Saturation (%) 2021-12-01 10:39:00.000 99 % O2 Saturation (%) 2021-11-29 09:54:00.000 98 % O2 Saturation (%) 2021-11-28 10:08:00.000 98 % O2 Saturation (%) 2021-11-24 09:50:00.000 98 % O2 Saturation (%) 2021-11-22 15:14:00.000 98 % O2 Saturation (%) 2021-11-17 21:47:00.000 98 % O2 Saturation (%) 2021-11-16 10:20:00.000 99 % O2 Saturation (%) 2021-11-15 18:06:00.000 98 % O2 Saturation (%) 2021-11-13 12:52:00.000 98 % Respirations 2021 16:08:00.000 18 /min Respirations 2021-12-15 17:36:00.000 18 /min Respirations 2021-12-08 11:29:00.000 18 /min Respirations 2021-12-01 10:39:00.000 16 /min Respirations 2021-11-29 09:54:00.000 16 /min Respirations 2021-11-28 10:08:00.000 18 /min Respirations 2021-11-24 09:50:00.000 18 /min Respirations 2021-11-22 15:14:00.000 18 /min Respirations 2021-11-17 21:47:00.000 18 /min Respirations 2021-11-16 10:20:00.000 18 /min Respirations 2021-11-15 18:06:00.000 18 /min Respirations 2021-11-13 12:52:00.000 18 /min Weight (lbs) 2021-11-29 09:57:00.000 303 [lb_av] Weight (lbs) 2021-11-28 10:14:00.000 303 [lb_av] Weight (lbs) 2021-11-22 15:17:00.000 299 [lb_av] Weight (lbs) 2021-11-16 10:20:00.000 297.6 [lb_av] Systolic Blood Pressure 2021 16:08:00.000 120 mm [Hg] Systolic Blood Pressure 2021-12-15 17:36:00.000 122 mm [Hg] Systolic Blood Pressure 2021-12-08 11:29:00.000 128 mm [Hg] Systolic Blood Pressure 2021-12-01 10:39:00.000 120 mm [Hg] Systolic Blood Pressure 2021-11-29 09:54:00.000 120 mm [Hg] Systolic Blood Pressure 2021-11-28 10:08:00.000 105 mm [Hg] Systolic Blood Pressure 2021-11-24 09:50:00.000 128 mm [Hg] Systolic Blood Pressure 2021-11-22 15:14:00.000 116 mm [Hg] Systolic Blood Pressure 2021-11-17 21:47:00.000 120 mm [Hg] Systolic Blood Pressure 2021-11-16 10:20:00.000 128 mm [Hg] Systolic Blood Pressure 2021-11-15 18:06:00.000 120 mm [Hg] Systolic Blood Pressure 2021-11-13 12:52:00.000 132 mm [Hg] Diastolic Blood Pressure 2021 16:08:00.000 70 mm [Hg] Diastolic Blood Pressure 2021-12-15 17:36:00.000 70 mm [Hg] Diastolic Blood Pressure 2021-12-08 11:29:00.000 72 mm [Hg] Diastolic Blood Pressure 2021-12-01 10:39:00.000 80 mm [Hg] Diastolic Blood Pressure 2021-11-29 09:54:00.000 80 mm [Hg] Diastolic Blood Pressure 2021-11-28 10:08:00.000 65 mm [Hg] Diastolic Blood Pressure 2021-11-24 09:50:00.000 70 mm [Hg] Diastolic Blood Pressure 2021-11-22 15:14:00.000 76 mm [Hg] Diastolic Blood Pressure 2021-11-17 21:47:00.000 70 mm [Hg] Diastolic Blood Pressure 2021-11-16 10:20:00.000 77 mm [Hg] Diastolic Blood Pressure 2021-11-15 18:06:00.000 70 mm [Hg] Diastolic Blood Pressure 2021-11-13 12:52:00.000 74 mm [Hg] Plan of Treatment Planned Activity Planned Date Details Comments Future Scheduled Test SKILLED NU RSE TO ASSESS, EVALUATE, AND DEVELOP AN INDIVIDUALIZED PLAN OF CARE. AGENCY MAY ACCEPT ORDERS FROM CONSULTING PHYSICIANS SN TO OBSERVE/ASSESS RISK FOR FALLS AND INSTRUCT IN FALL PREVENTION, HOME SAFETY, MEDICATION MANAGEMENT, INFECTION PREVENTION, AND NUTRITION MANAGEMENT. SN MAY PERFORM O2 SATURATION LEVEL ON ADMISSION AND PRN FOR SOB TO ASSESS PATIENT, WITH NOTIFICATION TO THE PHYSICIAN IF SATURATION IS 90% IN THE ABSENCE OF MORE SPECIFIC PARAMETERS FROM THE PHYSICIAN. AGENCY MAY PERFORM A RESUMPTION OF CARE VISIT FOLLOWING ANY HOSPITAL ADMISSION. SKILLED NURSE TO ASSESS/EVALUATE CO-MORBID CONDITIONS AND ANY NEW CONDITIONS THAT PRESENT THEMSELVES DURING THIS EPISODE TO IDENTIFY CHANGES AND INTERVENE TO MINIMIZE COMPLICATIONS. [code = SKILLED NURSE TO ASSESS, EVALUATE, AND DEVELOP AN INDIVIDUALIZED PLAN OF CARE. AGENCY MAY ACCEPT ORDERS FROM CONSULTING PHYSICIANS SN TO OBSERVE/ASSESS RISK FOR FALLS AND INSTRUCT IN FALL PREVENTION, HOME SAFETY, MEDICATION MANAGEMENT, INFECTION PREVENTION, AND NUTRITION MANAGEMENT. SN MAY PERFORM O2 SATURATION LEVEL ON ADMISSION AND PRN FOR SOB TO ASSESS PATIENT, WITH NOTIFICATION TO THE PHYSICIAN IF SATURATION IS 90% IN THE ABSENCE OF MORE SPECIFIC PARAMETERS FROM THE PHYSICIAN. AGENCY MAY PERFORM A RESUMPTION OF CARE VISIT FOLLOWING ANY HOSPITAL ADMISSION. SKILLED NURSE TO ASSESS/EVALUATE CO-MORBID CONDITIONS AND ANY NEW CONDITIONS THAT PRESENT THEMSELVES DURING THIS EPISODE TO IDENTIFY CHANGES AND INTERVENE TO MINIMIZE COMPLICATIONS.] Future Scheduled Test MEDICATION MANAGEMENT; SKILLED NURSE TO REVIEW MEDICATIONS FOR INTERACTIONS, EFFECTIVENESS OF DRUG THERAPY, AND SIGNS/SYMPTOMS OF ADVERSE REACTIONS. MAY INSTRUCT AND REINFORCE MEDICATION TEACHING RELATED TO THE USE OF MEDICATIONS, DOSAGE, FREQUENCY, PURPOSE, SIDE EFFECTS, AND TO REPORT COMPLICATIONS. [code = MEDICATION MANAGEMENT; SKILLED NURSE TO REVIEW MEDICATIONS FOR INTERACTIONS, EFFECTIVENESS OF DRUG THERAPY, AND SIGNS/SYMPTOMS OF ADVERSE REACTIONS. MAY INSTRUCT AND REINFORCE MEDICATION TEACHING RELATED TO THE USE OF MEDICATIONS, DOSAGE, FREQUENCY, PURPOSE, SIDE EFFECTS, AND TO REPORT COMPLICATIONS.] Future Scheduled Test ANTICOAGUL ATION MANAGEMENT; SKILLED NURSE TO ASSESS, TEACH, AND MONITOR EFFECTIVENESS OF ANTICOAGULATION THERAPY. SKILLED NURSE TO INSTRUCT ON SIGNS AND SYMPTOMS OF BLEEDING/ADVERSE REACTIONS TO REPORT TO PHYSICIAN. [code = ANTICOAGULATION MANAGEMENT; SKILLED NURSE TO ASSESS, TEACH, AND MONITOR EFFECTIVENESS OF ANTICOAGULATION THERAPY. SKILLED NURSE TO INSTRUCT ON SIGNS AND SYMPTOMS OF BLEEDING/ADVERSE REACTIONS TO REPORT TO PHYSICIAN. ] Future Scheduled Test CARDIOVASC ULAR SYSTEM; SKILLED NURSE TO ASSESS AND TEACH RELATED TO ALTERED CARDIOVASCULAR STATUS TO MINIMIZE COMPLICATIONS AND REDUCE HOSPITALIZATION. [code = CARDIOVASCULAR SYSTEM; SKILLED NURSE TO ASSESS AND TEACH RELATED TO ALTERED CARDIOVASCULAR STATUS TO MINIMIZE COMPLICATIONS AND REDUCE HOSPITALIZATION.] Future Scheduled Test HEART FAIL URE; SKILLED NURSE TO ASSESS CARDIOPULMONARY SYSTEM TO IDENTIFY SIGNS OF DECOMPENSATION AND INTERVENE TO MINIMIZE THE SEVERITY OF FLUID OVERLOAD. ASSESS PATIENT ABILITY TO MONITOR AND RECORD DAILY WEIGHTS AND VITAL SIGNS, INCLUDING PULSE AND BLOOD PRESSURE; RECORD PATIENT REPORTED WEIGHT, OR WEIGH PATIENT NEEDED. REPORT INCREASED EDEMA OR WEIGHT GAIN OF >2 LBS IN 1 DAY OR >5 LBS IN 1 WEEK OR 5LBS OR MORE OVER TARGET WEIGHT. MAY MEASURE ABDOMINAL GIRTH IF UNABLE TO WEIGH. SCALES AND BP MONITOR TO BE PROVIDED IF NEEDED. [code = HEART FAILURE; SKILLED NURSE TO ASSESS CARDIOPULMONARY SYSTEM TO IDENTIFY SIGNS OF DECOMPENSATION AND INTERVENE TO MINIMIZE THE SEVERITY OF FLUID OVERLOAD. ASSESS PATIENT ABILITY TO MONITOR AND RECORD DAILY WEIGHTS AND VITAL SIGNS, INCLUDING PULSE AND BLOOD PRESSURE; RECORD PATIENT REPORTED WEIGHT, OR WEIGH PATIENT NEEDED. REPORT INCREASED EDEMA OR WEIGHT GAIN OF >2 LBS IN 1 DAY OR >5 LBS IN 1 WEEK OR 5LBS OR MORE OVER TARGET WEIGHT. MAY MEASURE ABDOMINAL GIRTH IF UNABLE TO WEIGH. SCALES AND BP MONITOR TO BE PROVIDED IF NEEDED.] Future Scheduled Test ATRIAL FIB RILLATION MANAGEMENT; SKILLED NURSE TO ASSESS/TEACH WARNING SIGNS AND SYMPTOMS TO AVOID HOSPITALIZATION. [code = ATRIAL FIBRILLATION MANAGEMENT; SKILLED NURSE TO ASSESS/TEACH WARNING SIGNS AND SYMPTOMS TO AVOID HOSPITALIZATION.] Future Scheduled Test PAIN MANAG EMENT; SKILLED NURSE TO OBSERVE, ASSESS, AND PROVIDE EDUCATION ON PAIN MANAGEMENT TECHNIQUES. [code = PAIN MANAGEMENT; SKILLED NURSE TO OBSERVE, ASSESS, AND PROVIDE EDUCATION ON PAIN MANAGEMENT TECHNIQUES.] Future Scheduled Test FALL REDUC TION MANAGEMENT; NURSING TO PROVIDE SKILLED ASSESSMENT, EDUCATION, AND INTERVENTION TO IDENTIFY FALL RISK FACTORS SUCH MEDICATIONS THAT MAY CAUSE DIZZINESS, CHRONIC DISEASES, PSYCHOLOGICAL FACTORS, AND EMPOWER/EDUCATE PATIENT/CAREGIVER TO MINIMIZE FALL RISK. [code = FALL REDUCTION MANAGEMENT; NURSING TO PROVIDE SKILLED ASSESSMENT, EDUCATION, AND INTERVENTION TO IDENTIFY FALL RISK FACTORS SUCH MEDICATIONS THAT MAY CAUSE DIZZINESS, CHRONIC DISEASES, PSYCHOLOGICAL FACTORS, AND EMPOWER/EDUCATE PATIENT/CAREGIVER TO MINIMIZE FALL RISK.] Future Scheduled Test SN TO APPL Y TO AT 125 MM HG CONTINUOUS CHANGE 3 TIMES A WEEK CLEANSE WITH WOUND CLEANSER APPLY/FILL WOUND BLACK, WHITE FOAM, COVER WITH TRANSPARENT DRESSING DRESSING , TYPE OF SUCTION TRAC PAD. SN MAY USE OSTOMY PASTE, OSTOMY BARRIER STRIPS OR SEALS, HYDROCOLLOID AND SKIN BARRIER WIPES NEEDED TO OBTAIN AND MAINTAIN SEAL AND MAY USE MESHED NON-ADHERENT MATERIALS SUCH PETROLEUM IMPREGNATED DRESSINGS, OIL EMULSION IMPREGNATED DRESSINGS AND SILICONE DRESSINGS WHEN THE SITUATION WARRANTS.. IN THE EVENT OF A MALFUNCTION OF THE DEVICE, COMPLICATIONS MAINTAINING A SEAL, DRAINAGE, DISCOMFORT OR DISLODGEMENT OF THE DRESSING, SN MAY: CLEANSE THE WOUND WITH WOUND CLEANSER, APPLY A NSS MOISTENED GAUZE DRESSING, COVER WITH GAUZE AND TAPE TO SECURE OR THE PHYSICIAN ORDERED ALTERNATIVE MOIST WOUND HEALING DRESSING UNTIL VISIT CAN BE MADE TO REAPPLY. SN TO INSTRUCT ALL PATIENTS ESPECIALLY THOSE ON ANTICOAGULANT THERAPY OR ON PLATELET AGGREGATION INHIBITORS, IF ACTIVE BLEEDING DEVELOPS SUDDENLY, IN LARGE AMOUNTS OR THERE IS KRISTINA BRIGHT RED BLOOD NOTED TO TUBING OR CANISTER TO TURN OFF DEVICE, DO NOT REMOVE DEVICE, TAKE MEASURES TO STOP BLEEDING AND SEEK MEDICAL ASSISTANCE PROMPTLY. INSTRUCT ON THE CONCEPT OF TNPWT OR DNPWT, REASON FOR USE, PROPER USE OF THE DEVICE, HOW TO CHANGE CANISTER, HOW TO REPAIR SEAL LEAKS, PROPERLY MAINTAINING SEAL, S/S OF COMPLICATIONS, WHEN TO CALL CARE CENTER, AND WHEN TO CALL 911. 2 PRN VISITS FOR COMPLICATIONS, MALFUNCTION OF DEVICE, ASSESSMENT, DRAINAGE, DISLODGEMENT, DISCOMFORT. [code = SN TO APPLY TO AT 125 MM HG CONTINUOUS CHANGE 3 TIMES A WEEK CLEANSE WITH WOUND CLEANSER APPLY/FILL WOUND BLACK, WHITE FOAM, COVER WITH TRANSPARENT DRESSING DRESSING , TYPE OF SUCTION TRAC PAD. SN MAY USE OSTOMY PASTE, OSTOMY BARRIER STRIPS OR SEALS, HYDROCOLLOID AND SKIN BARRIER WIPES NEEDED TO OBTAIN AND MAINTAIN SEAL AND MAY USE MESHED NON-ADHERENT MATERIALS SUCH PETROLEUM IMPREGNATED DRESSINGS, OIL EMULSION IMPREGNATED DRESSINGS AND SILICONE DRESSINGS WHEN THE SITUATION WARRANTS.. IN THE EVENT OF A MALFUNCTION OF THE DEVICE, COMPLICATIONS MAINTAINING A SEAL, DRAINAGE, DISCOMFORT OR DISLODGEMENT OF THE DRESSING, SN MAY: CLEANSE THE WOUND WITH WOUND CLEANSER, APPLY A NSS MOISTENED GAUZE DRESSING, COVER WITH GAUZE AND TAPE TO SECURE OR THE PHYSICIAN ORDERED ALTERNATIVE MOIST WOUND HEALING DRESSING UNTIL VISIT CAN BE MADE TO REAPPLY. SN TO INSTRUCT ALL PATIENTS ESPECIALLY THOSE ON ANTICOAGULANT THERAPY OR ON PLATELET AGGREGATION INHIBITORS, IF ACTIVE BLEEDING DEVELOPS SUDDENLY, IN LARGE AMOUNTS OR THERE IS KRISTINA BRIGHT RED BLOOD NOTED TO TUBING OR CANISTER TO TURN OFF DEVICE, DO NOT REMOVE DEVICE, TAKE MEASURES TO STOP BLEEDING AND SEEK MEDICAL ASSISTANCE PROMPTLY. INSTRUCT ON THE CONCEPT OF TNPWT OR DNPWT, REASON FOR USE, PROPER USE OF THE DEVICE, HOW TO CHANGE CANISTER, HOW TO REPAIR SEAL LEAKS, PROPERLY MAINTAINING SEAL, S/S OF COMPLICATIONS, WHEN TO CALL CARE CENTER, AND WHEN TO CALL 911. 2 PRN VISITS FOR COMPLICATIONS, MALFUNCTION OF DEVICE, ASSESSMENT, DRAINAGE, DISLODGEMENT, DISCOMFORT.] Future Scheduled Test 60 DAY LACEY LANGSTONIAN SUMMARY; RECERT FOR A 50-YEAR-OLD FEMALE DUE TO RIGHT LOWER EXTREMITY CELLULITIS. PATIENT WITH PAST MEDICAL HISTORY OF LYMPHEDEMA, HEART FAILURE, ATRIAL FIB, MUSCLE WEAKNESS, ANXIETY, MAJOR DEPRESSIVE DISORDER, MORBID OBESITY AND LONG-TERM USE OF ANTICOAGULANTS. PATIENT LIVES IN A PRIVATE HOME WITH OTHER FAMILY MEMBERS AND A SMALL DOG PATIENT LYING IN BED PATIENT WITH A MEDULLA NEGATIVE PRESSURE DEVICE TO RIGHT LOWER EXTREMITY 1 TO THE CALF 1 TO THE THIGH PATIENT CLEAN, NEAT, DRESSED APPROPRIATELY PATIENT IN GOOD SPIRITS ANSWERED QUESTIONS WILLINGLY AND CORRECTLY PATIENT REPORTS GOOD PAIN RELIEF WITH CURRENT MEDICATIONS PATIENT WITH A MIDLINE PIT TO PATIENT DENIES ANY FALLS DENIES ANY NEW SKIN BREAKDOWN LUNGS CLEAR TO AUSCULTATION. SKILLED NURSE INSTRUCTED PATIENT TO CALL US FIRST WITH ANY HEALTH ISSUES REPUBLICAN GO INTO THE HOSPITAL. NEGATIVE PRESSURE DRESSING CHANGED THIS VISI, PATIENT TOLERATED PROCEDURE WITHOUT MILD DISCOMFORT FROM HAVING TO ROLL OVER FOR WOUND CARE. MED RECONCILIATION COMPLETED THIS VISIT WITH NO PROBLEMS NOTED. SKILLED NURSE MEDICALLY NECESSARY FOR WOUND CARE, MEDICATIONS PAIN MANAGEMENT ALONG WITH OTHER COMORBIDITIES TO AID WITH KEEPING PATIENT OUT OF THE HOSPITAL. PATIENT REMAINS HOMEBOUND DUE TO WEAKNESS, MOBILITY FALL RISK RELATED TO PAIN AND OBESITY REQUIRES A DEVICE SUCH A WALKER AND 1 PERSON TO LEAVE HOME SAFELY. DOCTOR NOTIFIED A PLAN OF CARE ALL DIAGNOSES CONFIRMED WITH FAIZA HANCOCK, [code = 60 DAY PHYSICIAN SUMMARY; RECERT FOR A 50-YEAR-OLD FEMALE DUE TO RIGHT LOWER EXTREMITY CELLULITIS. PATIENT WITH PAST MEDICAL HISTORY OF LYMPHEDEMA, HEART FAILURE, ATRIAL FIB, MUSCLE WEAKNESS, ANXIETY, MAJOR DEPRESSIVE DISORDER, MORBID OBESITY AND LONG-TERM USE OF ANTICOAGULANTS. PATIENT LIVES IN A PRIVATE HOME WITH OTHER FAMILY MEMBERS AND A SMALL DOG PATIENT LYING IN BED PATIENT WITH A MEDULLA NEGATIVE PRESSURE DEVICE TO RIGHT LOWER EXTREMITY 1 TO THE CALF 1 TO THE THIGH PATIENT CLEAN, NEAT, DRESSED APPROPRIATELY PATIENT IN GOOD SPIRITS ANSWERED QUESTIONS WILLINGLY AND CORRECTLY PATIENT REPORTS GOOD PAIN RELIEF WITH CURRENT MEDICATIONS PATIENT WITH A MIDLINE PIT TO PATIENT DENIES ANY FALLS DENIES ANY NEW SKIN BREAKDOWN LUNGS CLEAR TO AUSCULTATION. SKILLED NURSE INSTRUCTED PATIENT TO CALL US FIRST WITH ANY HEALTH ISSUES REPUBLICAN GO INTO THE HOSPITAL. NEGATIVE PRESSURE DRESSING CHANGED THIS VISI, PATIENT TOLERATED PROCEDURE WITHOUT MILD DISCOMFORT FROM HAVING TO ROLL OVER FOR WOUND CARE. MED RECONCILIATION COMPLETED THIS VISIT WITH NO PROBLEMS NOTED. SKILLED NURSE MEDICALLY NECESSARY FOR WOUND CARE, MEDICATIONS PAIN MANAGEMENT ALONG WITH OTHER COMORBIDITIES TO AID WITH KEEPING PATIENT OUT OF THE HOSPITAL. PATIENT REMAINS HOMEBOUND DUE TO WEAKNESS, MOBILITY FALL RISK RELATED TO PAIN AND OBESITY REQUIRES A DEVICE SUCH A WALKER AND 1 PERSON TO LEAVE HOME SAFELY. DOCTOR NOTIFIED A PLAN OF CARE ALL DIAGNOSES CONFIRMED WITH FAIZA HANCOCK,] Future Scheduled Test AGENCY MAY PERFORM A RESUMPTION OF CARE VISIT FOLLOWING ANY HOSPITAL ADMISSION. OCCUPATIONAL THERAPY TO EVALUATE, ASSESS, AND MONITOR, PROVIDE SKILLED THERAPEUTIC INTERVENTION, ACTIVITY, EDUCATION, AND TRAINING TO ADDRESS; BATHING/SHOWERING (OT) TOILETING (OT) DRESSING (OT) MODIFIED NAWAF INDEX (OT) ENERGY CONSERVATION/ACTIVITY DEMAND (OT) UPPER EXTREMITY MUSCLE POWER (OT) OXYGEN SATURATION (OT); NOTIFY MD IF O2 SATS BELOW 90% AFTER 10 MIN OF REST FALL REDUCTION (OT) [code = AGENCY MAY PERFORM A RESUMPTION OF CARE VISIT FOLLOWING ANY HOSPITAL ADMISSION. OCCUPATIONAL THERAPY TO EVALUATE, ASSESS, AND MONITOR, PROVIDE SKILLED THERAPEUTIC INTERVENTION, ACTIVITY, EDUCATION, AND TRAINING TO ADDRESS; BATHING/SHOWERING (OT) TOILETING (OT) DRESSING (OT) MODIFIED NAWAF INDEX (OT) ENERGY CONSERVATION/ACTIVITY DEMAND (OT) UPPER EXTREMITY MUSCLE POWER (OT) OXYGEN SATURATION (OT); NOTIFY MD IF O2 SATS BELOW 90% AFTER 10 MIN OF REST FALL REDUCTION (OT)] Future Scheduled Test AGENCY MAY PERFORM A RESUMPTION OF CARE VISIT FOLLOWING ANY HOSPITAL ADMISSION. PHYSICAL THERAPY TO EVALUATE, ASSESS AND MONITOR, PROVIDE SKILLED THERAPEUTIC INTERVENTION, ACTIVITY, EDUCATION, AND TRAINING TO ADDRESS: TRANSFER TRAINING (PT) GAIT TRAINING (PT) NEUROMUSCULAR RE-EDUCATION / BALANCE RETRAINING (PT) THERAPEUTIC EXERCISES (PT) OXYGEN SATURATION (PT). NOTIFY MD IF 02SATS BELOW 90% AFTER 10 MIN OF REST. PAIN MANAGEMENT (PT) PHYSICAL THERAPY TO ASSESS AND RECORD PATIENT REPORTED WEIGHT AND NOTIFY CM / DIRECTOR TITLE FOR MD NOTIFICATION FOR SIGNS AND SYMPTOMS OF EXACERBATION (2LB WEIGHT GAIN IN 1 DAY, 5LBS IN A WEEK OR 5 LBS OVER BASELINE); IDENTIFY FALL RISK FACTORS AND ESTABLISH HOME EXERCISE PROGRAM TO MINIMIZE FALL RISK. MAY TEACH THE PATIENT FLOOR RECOVERY WHEN CLINICALLY APPROPRIATE (PT) ANTICOAGULANT THERAPY - PHYSICAL THERAPY [code = AGENCY MAY PERFORM A RESUMPTION OF CARE VISIT FOLLOWING ANY HOSPITAL ADMISSION. PHYSICAL THERAPY TO EVALUATE, ASSESS AND MONITOR, PROVIDE SKILLED THERAPEUTIC INTERVENTION, ACTIVITY, EDUCATION, AND TRAINING TO ADDRESS: TRANSFER TRAINING (PT) GAIT TRAINING (PT) NEUROMUSCULAR RE-EDUCATION / BALANCE RETRAINING (PT) THERAPEUTIC EXERCISES (PT) OXYGEN SATURATION (PT). NOTIFY MD IF 02SATS BELOW 90% AFTER 10 MIN OF REST. PAIN MANAGEMENT (PT) PHYSICAL THERAPY TO ASSESS AND RECORD PATIENT REPORTED WEIGHT AND NOTIFY CM / DIRECTOR TITLE FOR MD NOTIFICATION FOR SIGNS AND SYMPTOMS OF EXACERBATION (2LB WEIGHT GAIN IN 1 DAY, 5LBS IN A WEEK OR 5 LBS OVER BASELINE); IDENTIFY FALL RISK FACTORS AND ESTABLISH HOME EXERCISE PROGRAM TO MINIMIZE FALL RISK. MAY TEACH THE PATIENT FLOOR RECOVERY WHEN CLINICALLY APPROPRIATE (PT) ANTICOAGULANT THERAPY - PHYSICAL THERAPY ] Goal 2021-10-18 Patient Goal - FOR WOUND TO HEAL Goal 2021 Patient Goal - FOR WOUNDS TO HEAL Goal 2021-11-06 Patient Goal - FOR WOUND TO HEAL Goal Provider Goal - A PLAN OF CARE WILL BE ESTABLISHED THAT MEETS THE PATIENTS NEEDS. PATIENT WILL DEMONSTRATE OXYGEN SATURATION WITHIN NORMAL LIMITS OR PATIENTS OPTIMAL LEVEL ESTABLISHED BY THE PHYSICIAN THROUGHOUT CARE. CHANGES TO CO-MORBID CONDITIONS AND ANY NEW CONDITIONS WILL BE IDENTIFIED AND REPORTED TO THE PHYSICIAN. Goal Provider Goal - PATIENT/CAREGIVER TO VERBALIZE, AND CONSISTENTLY DEMONSTRATE EFFECTIVE, SAFE MANAGEMENT OF MEDICATION INCLUDING KNOWLEDGE OF EFFECTIVENESS, POTENTIAL SIDE EFFECTS AND DRUG REACTIONS AND WHEN TO CONTACT THE APPROPRIATE CARE PROVIDER. PATIENT/CAREGIVER WILL BE ABLE TO VERBALIZE UNDERSTANDING OF MEDICATION REGIMEN AND ACCURATELY TAKE MEDICATIONS PRESCRIBED WITHOUT ADVERSE EFFECTS BY END OF EPISODE Goal Provider Goal - INEFFECTIVE ANTICOAGULATION THERAPY WILL BE IDENTIFIED AND PROMPTLY REPORTED TO THE PHYSICIAN. PATIENT / CAREGIVER WILL VERBALIZE UNDERSTANDING OF MEASURES TO MAINTAIN EFFECTIVE ANTICOAGULATION THERAPY BY END OF EPISODE Goal Provider Goal - PATIENT / CAREGIVER WILL VERBALIZE/DEMONSTRATE UNDERSTANDING OF MEASURES TO MANAGE ALTERED CARDIOVASCULAR STATUS BY END OF EPISODE Goal Provider Goal - PATIENT / CAREGIVER WILL VERBALIZE/DEMONSTRATE AN ABILITY TO ADHERE TO SELF-MANAGEMENT OF HF TO MINIMIZE COMPLICATIONS AND AVOID HOSPITALIZATION BY END OF EPISODE. Goal Provider Goal - PATIENT / CAREGIVER WILL VERBALIZE/DEMONSTRATE AN ABILITY TO ADHERE TO SELF-MANAGEMENT OF ATRIAL FIBRILLATION TO MINIMIZE COMPLICATIONS AND AVOID HOSPITALIZATION BY END OF EPISODE. Goal Provider Goal - PATIENT / CAREGIVER WILL VERBALIZE / DEMONSTRATE UNDERSTANDING OF PAIN CONTROL MEASURES BY END OF EPISODE Goal Provider Goal - PATIENT/CAREGIVER ABLE TO IDENTIFY FALL RISK FACTORS AND IMPLEMENT STRATEGIES TO MINIMIZE FALL RISK. PATIENT/CAREGIVER WILL VERBALIZE/DEMONSTRATE AN ABILITY TO ADHERE TO FALL REDUCTION SELF MANAGEMENT AND LIFE-STYLE CHANGES AT DISCHARGE. PERSONAL GOAL(S) STATED BY PATIENT/CAREGIVER WILL BE MET BY END OF EPISODE . Goal Provider Goal - PATIENT WILL DEMONSTRATE IMPROVED WOUND STATUS EVIDENCED BY A DECREASE IN SIZE/DRAINAGE OF WOUND, ABSENCE OF INFECTION, AND DECREASED PAIN BY END OF EPISODE. Goal Provider Goal - Goal Provider Goal - OT STG: PATIENT WILL DEMONSTRATE IMPROVED ABILITY TO PERFORM BATH/SHOWER TRANSFER FROM [facility] TO JEVON WITHIN 4WEEKS OT LTG: PATIENT WILL DEMONSTRATE IMPROVED ABILITY TO PERFORM BATHING/SHOWERING FROM MAXA TO JEVON WITHIN 8WEEKS OT STG: PATIENT WILL DEMONSTRATE IMPROVED ABILITY TO PERFORM TOILET TRANSFER FROM JEVON TO SBA WITHIN 4WEEKS OT LTG: PATIENT WILL DEMONSTRATE IMPROVED ABILITY TO PERFORM TOILETING FROM JEVON TO SBA WITHIN 8WEEKS OT LTG: PATIENT WILL DEMONSTRATE IMPROVED ABILITY TO PERFORM LOWER BODY DRESSING INCLUDING ITEM RETRIEVAL FROM JEVON TO SBA WITHIN 8WEEKS OT LTG: PATIENT WILL DEMONSTRATE IMPROVED INDEPENDENCE WITH ACTIVITIES OF DAILY LIVING (ADL) SKILLS EVIDENCED BY AN IMPROVEMENT IN MODIFIED NAWAF INDEX SCORE FROM 59 TO 69 INDICATING DECREASED DEPENDENCY ON CAREGIVER ASSISTANCE WITHIN 8WEEKS OT LTG: PATIENT WILL INCORPORATE ENERGY CONSERVATION HEP FROM MAXIMUM VERBAL CUES TO INDEP WITHIN 8WEEKS OT LTG: PATIENT WILL DEMONSTRATE IMPROVED UE MUSCLE POWER EVIDENCED BY AN IMPROVEMENT IN MMT FROM 3+ TO 4 WITHIN 8WEEKS PATIENT WILL MAINTAIN OXYGEN SATURATION WITHIN PHYSICIAN ORDERED PARAMETERS THROUGHOUT THE EPISODE OF CARE. PATIENT/CAREGIVER WILL BE ABLE TO IMPLEMENT OCCUPATIONAL THERAPY EDUCATION RECOMMENDATIONS SPECIFIC TO FALL REDUCTION FOR IMPROVED ADL/IADL COMPLETION AND HOME SAFETY BY DISCHARGE. Goal Provider Goal - PT STG: PATIENT WILL IMPROVE TRANSFERS BED TO W/C AND BACK FROM MIN ASSIST WITH RW TO SPV WITH LEAST RESTRICTIVE AD BY 4 WEEKS. PT LTG: PATIENT WILL DEMONSTRATE IMPROVED TRANSFERS FROM MIN ASSIST WITH RW TO INDEPENDENT WITH LEAST RESTRICTIVE AD BY 9 WEEKS. PT LTG: PATIENT WILL DEMONSTRATE IMPROVED AMBULATION SAFETY IN HOME ON LEVEL SURFACES , HOUSEHOLD DISTANCES, FROM SBA WITH RW TO INDEPENDENT WITH LEAST RESTRICTIVE AD BY 9 WEEKS. PT LTG: PATIENT WILL BE ABLE TO MANAGE ENTRANCES AND GAIT IN/OUT OF HOME TO ACCESS VEHICLE FOR TRANSPORATION FROM UNABLE TO INDEPENDENT BY 9 WEEKS. PT LTG: PATIENT WILL DEMONSTRATE REDUCED FALL RISK EVIDENCED BY IMPROVED SELF- SELECTED WALKING SPEED (SSWS CUT SCORE 0.6 TO 0.9 INDICATES MODERATE FALL RISK, 0.6 M/S INDICATES HIGH FALL RISK) FROM .44 M/ SEC TO .6 M/SEC BY 9 WEEKS. PT LTG: PATIENT WILL DEMONSTRATE REDUCED FALL RISK EVIDENCED BY TUG TEST (CUT SCORE >11 SECONDS INDICATES INCREASED FALL RISK) IMPROVING FROM UNABLE TO 30 SECS BY 9 WEEKS. PT LTG: PATIENT WILL DEMONSTRATE IMPROVED FUNCTIONAL STRENGTH EVIDENCED BY FIVE TIMES SIT TO STAND TEST (CUT SCORE >12 SECONDS INDICATES AN INCREASED FALL RISK) IMPROVING FROM UNABLE TO 40 SECS BY 9 WEEKS. PATIENT WILL MAINTAIN OXYGEN SATURATION WITHIN PHYSICIAN ORDERED PARAMETERS THROUGHOUT EPISODE OF CARE PT GOAL: PATIENT/CAREGIVER WILL VERBALIZE UNDERSTANDING OF PAIN MANAGEMENT BY DISCHARGE. PT GOAL: PATIENTS WEIGHT WILL REMAIN WELL CONTROLLED THROUGHOUT EPISODE OF CARE. PATIENT/CAREGIVER WILL DEMONSTRATE ADHERENCE TO FALL REDUCTION SELF MANAGEMENT TO MINIMIZE FALL RISK BY DISCHARGE. PT GOAL: PATIENT WILL NOT EXHIBIT SIGNS AND SYMPTOMS OF ANTICOAGULANT TOXICITY. Reason for Visit INDEPENDENT WITH USE OF ASSISTIVE DEVICE Encounters Start Date/Time End Date/Time Encounter Type Admission Type Attending [facility] Care Facility Care Department Encounter ID Discharge Date Discharge Status Discharge Condition Discharge Reason Percent Goals Met 2021-09-12 00:00:00 2021 00:00:00 Outpatient [facility] [id number] 2021 00:00:00 DISCHARGE TO HOME OR SELF CARE INDEPENDEN T WITH USE OF ASSISTIVE DEVICE HH OR PAL- GOALS MET 75.56
--- OUTSIDE RECORDS SUMMARY | 2024-03-24 19:03 | XMS_ITS ---
Author Organization [facility] Address [address] [place] [address] DEDE CARTAGENA [address] Care Team Providers Care Dough Puncher Name Role Phone Chan Amaya Primary Care Provider Baltazar Kapoor Unavailable [phone] Allergies No Known Allergies REASON FOR VISIT 1 month f/u Social History Tobacco Use: Social History Observation Description Date Details (start date - stop date) Never Smoker NA - NA Tobacco Use/Smoking Question Answer Notes Are you a nonsmoker Alcohol Screen Question Answer Notes Did you have a drink containing alcohol in the p ast year? No Points 0 Interpretation Negative Encounters Encounter Location Date Provider Diagnosis [facility] [place] [address] 09/25/2022 Baltazar Macias Plan Of Treatment No Information Progress Notes * Tiarra HAN ADOB:[birth year] (53 yo F)Acc No.[id number]:09/25/2022 Patient:?Tiarra HAN Appointment Provider:?DENNISE Toro :1970???Age:51 Y???Sex:Female D ate:09/25/2022 Address:[address], [place]-[address] Pcp:Chan Amaya Subjective: * Chief Complaints: * ???1. 1 month f/u. * HPI: ???Intervention:? Ms. Han returns to clinic today. She is a morbidly pleasant 51 year- old woman who is referred to us from Dr. Amaya. She suffers from three years of bilateral knee pain. She has history of RLE lymphedema due to history of multiple DVT's. She underwwent removal of DVT in [place] September with subsequent wound infection. She moved back to [place] from [place] in September. On today's visit, she reports that the past month has been okay. She continues to suffer from bilateral knee pain. She reports >75% improvement of her knee pain after the steroid injections. It is worse with stairs and walking. It is better with rest and pain medications. She has tried steroid injections with 2 months of relief. Gel injections did not help. She has not tried GNB/RFA. She was told to lose weight in order to undergo TKR's. She's presently ~ 340lbs. Her pain is 8/10 without medication and 5/10 with medication. Her pain medication allows her to be more active and rest at night. She denies any side effects and her affect is normal. pill count: accurate aberrant behavior: 03-27-21 short pill count and +egt on Feb uds...vw given 05-02-21 no bottle, vw given 05-14-22 inconsistent uds Mar....+EGT....ww given today past pain clinic: 1. Pain clinic in [place], [place] - moved [facility] 03/08/2022 HYDROCODONE-ACETAMIN 10-325 MG 120.00 30 9092 [id number] 03/08/20229036639 40.00 N N [id number] 03 01/25/2022 HYDROCODONE-ACETAMIN 10-325 MG 120.00 30 9092 [id number] 01/23/[id number] 40.00 N N [id number] 03 12/26/2021 HYDROCODONE-ACETAMIN 10-325 MG 120.00 30 9092 [id number] 12/26/20210873081 40.00 N N [id number] 03 11/24/2021 HYDROCODONE-ACETAMIN 10-325 MG 120.00 30 9092 [id number] 11/20/20215219995 40.00 N N [id number] 03 10/25/2021 HYDROCODONE-ACETAMIN 10-325 MG 120.00 30 9092 [id number] 10/23/202120192466964 40.00 N N [id number] 03 10/17/2021 HYDROCODONE-ACETAMIN 10-325 MG 40.00 7 9092 [id number] 10/17/2021 [id number] 57.14 N N [id number] 03 09/12/2021 HYDROCODONE-ACETAMIN 10-325 MG 120.00 30 9092 [id number] 09/12/202120067841595 40.00 N N [id number] 03 09/09/2021 HYDROCODONE-ACETAMIN 10-325 MG 12.00 3 9092 [id number] 09/09/202120058259799 40.00 N N [id number] 03 09/09/2021 GABAPENTIN 100 MG CAPSULE 3.00 3 9092 [id number] 09/09/[id number] - N N [id number] 03 09/08/2021 HYDROCODONE-ACETAMIN 10-325 MG 24.00 6 9092 [id number] 09/08/2021 [id number] 40.00 N N [id number] 04 09/05/2021 HYDROCODONE-ACETAMIN 10-325 MG 2.00 1 9092 [id number] 08/28/2021 [id number] 20.00 N N [id number] 99 09/01/2021 GABAPENTIN 100 MG CAPSULE 13.00 13 9092 [id number] 09/01/2021 [id number] - N N [id number] 04 08/28/2021 HYDROCODONE-ACETAMIN 10-325 MG 28.00 7 9092 [id number] 08/28/2021 [id number] 40.00 N N [id number] 04 08/23/2021 GABAPENTIN 100 MG CAPSULE 1.00 1 9092 [id number] 08/23/2021 [id number] - N N [id number] 04 08/23/2021 HYDROCODONE-ACETAMIN 10-325 MG 30.00 10 9092 [id number] 08/23/2021 [id number] 30.00 N N [id number] 99 08/15/2021 HYDROCODONE-ACETAMIN 10-325 MG 27.00 9 9092 [id number] 08/15/2021 [id number] 30.00 N N [id number] 04. * ROS:?General/Constitutional:?drowsiness?Denies.?Nausea?Denies.?Denies?Loss of appetite.?Denies?Chills.?Allergy/Immunology:?Denies?Blistering of skin.?Denies?Congestion.?Denies?Hives.?Denies?Rash.?Ophthalmologic:?Double Vision?Denies.?Glasses?Denies.?Blind?Denies.?Denies?Blurred vision.?ENT:?Hoarseness?Denies.?Ear Noises?Denies.?Denies?Blocked ear.?Denies?Hearing Loss.?Endocrine:?Hypothyroidism?Denies.?Hyperthyroidism?Denies.?Denies?Cold intolerance.?Denies?Dizziness.?Respiratory:?Coughing up blood?Denies.?Denies?Breathing pattern.?Admits?Cough.?Denies?Hemoptysis.?Breast:?Denies?Breast pain.?Denies?Breast swelling.?Denies?Fever.?Denies?Nipple discharge.?Cardiovascular:?Chest pain?Denies.?Denies?Chest pain at rest.?Denies?Chest pain with exertion.?Denies?Claudication.?Gastrointestinal:?Hepatitis?Denies.?Pain in Stomach?Denies.?Denies?Blood in stool.?Denies?Change in bowel habits.?Hematology:?anemia?Admits.?Bleeding disorder?Denies.?Lymphoma?Denies.?Denies?Breast lump.?Genitourinary:?Denies?Blood in urine.?Denies?Pain in lower back.?incontinence?Denies.?Kidney Stone?Denies.?Infection?Denies.?Podiatric:?Denies?Achilles swelling.?Denies?Ankle swelling.?Denies?Big toe pain.?Denies?Big toe swelling.?Skin:?psoriasis? admits.?Easy Bruising ?Denies.?Denies?Blistering of skin.?Denies?Discoloration.?Neurologic:?history of stroke?Denies.?stroke?Denies.?Denies?Balance difficulty.?Denies?Lightheaded/Dizziness.?Psychiatric:?Denied?Panic attacks.?suicide attempt?Denies.?OCD?Denies.?Homicidal ideation?Denies.?Health Education:?Denies?Diabetes screening.?Denies?Healthy weight education.?Denies?Hepatitis vaccination.?Denies?Influenza vaccination.?Cancer Self-Management:?Denies?Breast self-exam.?Denies?Colonoscopy.?Denies?PAP testing.?Denies?Skin exam.?blood stool,pain in stomach. * Medical History:?Medical His tory Verified. * Surgical History:?Denies Pas t Surgical History. * Hospitalization/Major Diagno stic Procedure:?Denies Past Hospitalization. * Family History:?Daughter(s): alive.?Mother: unknown.? * Social History:?Tobacco Use:?Tobacco Use/Smoking?Are you a?nonsmoker.?SOAPP- R:?SOAPP-R: TroyRivera aleoj 07/16/2022 1:37:23 PM > 2BastRupesh naylordevendra 08/28/2022 1:58:22 PM > 0. ???Contract Date:?Contract Date: Rivera Payton 01/09/2021 2:53:50 PM >sa. ???COMM :?Score #: Rivera Simmons 09/12/2021 2:41:40 PM > 1BastdaydayRivera 08/28/2022 3:02:54 PM > 0. ???Drugs/Alcohol:?Drugs?Have you ever used drugs other than those used for medical reasons in the last 12 months?No.?Alcohol Screen?Did you have a drink containing alcohol in the past year??No,?Points?0,?Interpretation?Negative.? * Allergies:?N.K.D.A. Objective: * Vitals:? * Examination: ???General exam: ?GENERAL APPEARANCE?in no acute cardiopulmonary distress, well developed, well nourished, no acute cardiopulmonary distress.?HEAD?normocephalic, atraumatic.?EYES?extraocular movement full and smooth.?EARS?normal.?ORAL CAVITY?mucosa moist.?NECK/THYROID?neck supple, neck stiff.?SKIN?no suspicious lesion, warm and dry.?LUNGS?respiratory rate and rhythm normal.?EXTREMITIES?RLE...stigmata of marked chronic lymphedema.?NEUROLOGIC?alert, oriented to person, place, and time, nonfocal, motor 5/5 , sensation intact at all extremities, reflexes intact and symmetric.?PSYCH?alert, good eye contact, cooperative with examination, mood and affect normal, speech content normal, responses are appropriate, no thought disorders noted, no suicidal ideation.?Left knee: ?INSPECTION:?no ecchymosis present, no effusion or erythema, no significant swelling.?LEG EXAMINATION:?unremarkable.?ALIGNMENT:?normal.?PALPATION:?crepitation present, diffuse lateral tenderness present.?KNEE RANGE OF MOTION:?moderate crepitus with motion.?LIGAMENTOUS LAXITY (NEG):?all ligaments appear stable, but there is guarding on exam.?Right knee: ?INSPECTION:?no ecchymosis present, no effusion or erythema, no significant swelling.?LEG EXAMINATION:?unremarkable.?ALIGNMENT:?normal.?PALPATION:?crepitation present, diffuse lateral tenderness present.?KNEE RANGE OF MOTION:?moderate crepitus with motion.?LIGAMENTOUS LAXITY (NEG):?all ligaments appear stable, but there is guarding on exam.? Assessment: Plan: * Treatment: * * Electronic signature of DENNISE Allred rd-Kesley on 03/24/2024 at 07:03 PM GRINDER SET UP OPERATOR SURFACE Sign off status: Pending * Appointment Provider:?DENNISE Toro Date:?09/25/2022 Generated for Leonie funes/bD/Joaquín on:?03/24/2024 07:03 PM GRINDER SET UP OPERATOR SURFACE History and Physical Notes * HPI (History of Present Illness) Category Sub-Category Detail Notes Category Not es Intervention Ms. Han returns to clinic today. She is a morbidly pleasant 51 year-old woman who is referred to us from Dr. Amaya. She suffers from three years of bilateral knee pain. She has history of RLE lymphedema due to history of multiple DVT's. She underwwent removal of DVT in [facility] September with subsequent wound infection. She moved back to [place] from [place] in September. On today's visit, she reports that the past month has been okay. She continues to suffer from bilateral knee pain. She reports >75% improvement of her knee pain after the steroid injections. It is worse with stairs and walking. It is better with rest and pain medications. She has tried steroid injections with 2 months of relief. Gel injections did not help. She has not tried GNB/RFA. She was told to lose weight in order to undergo TKR's. She's presently ~ 340lbs. Her pain is 8/10 without medication and 5/10 with medication. Her pain medication allows her to be more active and rest at night. She denies any side effects and her affect is normal. pill count: accurate aberrant behavior: 03-27-21 short pill count and +egt on Feb uds...vw given 05-02-21 no bottle, vw given 05-14-22 inconsistent uds Mar....+EGT....ww given today past pain clinic: 1. Pain clinic in [place], [place] - moved [facility] 03/08/2022 HYDROCODONE-ACETAMIN 10-325 MG 120.00 30 9092 [id number] 03/08/2022 [id number] 40.00 N N [id number] 03 01/25/2022 HYDROCODONE-ACETAMIN 10-325 MG 120.00 30 9092 [id number] 01/23/2022 [id number] 40.00 N N [id number] 03 12/26/2021 HYDROCODONE-ACETAMIN 10-325 MG 120.00 30 9092 [id number] 12/26/2021 [id number] 40.00 N N [id number] 03 11/24/2021 HYDROCODONE-ACETAMIN 10-325 MG 120.00 30 9092 [id number] 11/20/2021 [id number] 40.00 N N [id number] 03 10/25/2021 HYDROCODONE-ACETAMIN 10-325 MG 120.00 30 9092 [id number] 10/23/[id number] 40.00 N N [id number] 03 10/17/2021 HYDROCODONE-ACETAMIN 10-325 MG 40.00 7 9092 [id number] 10/17/2021 [id number] 57.14 N N [id number] 03 09/12/2021 HYDROCODONE-ACETAMIN 10-325 MG 120.00 30 9092 [id number] 09/12/[id number] 40.00 N N [id number] 03 09/09/2021 HYDROCODONE-ACETAMIN 10-325 MG 12.00 3 9092 [id number] 09/09/[id number] 40.00 N N [id number] 03 09/09/2021 GABAPENTIN 100 MG CAPSULE 3.00 3 9092 [id number] 09/09/[id number] - N N [id number] 03 09/08/2021 HYDROCODONE-ACETAMIN 10-325 MG 24.00 6 9092 [id number] 09/08/2021 [id number] 40.00 N N [id number] 04 09/05/2021 HYDROCODONE-ACETAMIN 10-325 MG 2.00 1 9092 [id number] 08/28/2021 [id number] 20.00 N N [id number] 99 09/01/2021 GABAPENTIN 100 MG CAPSULE 13.00 13 9092 [id number] 09/01/2021 [id number] - N N [id number] 04 08/28/2021 HYDROCODONE-ACETAMIN 10-325 MG 28.00 7 9092 [id number] 08/28/2021 [id number] 40.00 N N [id number] 04 08/23/2021 GABAPENTIN 100 MG CAPSULE 1.00 1 9092 [id number] 08/23/2021 [id number] - N N [id number] 04 08/23/2021 HYDROCODONE-ACETAMIN 10-325 MG 30.00 10 9092 [id number] 08/23/2021 [id number] 30.00 N N [id number] 99 08/15/2021 HYDROCODONE-ACETAMIN 10-325 MG 27.00 9 9092 [id number] 08/15/2021 [id number] 30.00 N N [id number] 04 Examination Category Sub-Category Detail Notes Category Not es Left knee INSPECTION: no ecchymosis pr esent, no effusion or erythema, no significant swelling ALIGNMENT: normal PALPATION: crepitation present, diffuse lateral tenderness present KNEE RANGE OF MOTION: moderate crepitus with motion LIGAMENTOUS LAXITY (NEG): all ligaments appear stable, but there is guarding on exam LEG EXAMINATION: unremarkable Right knee INSPECTION: no ecchymosis pr esent, no effusion or erythema, no significant swelling ALIGNMENT: normal PALPATION: crepitation present, diffuse lateral tenderness present KNEE RANGE OF MOTION: moderate crepitus with motion LIGAMENTOUS LAXITY (NEG): all ligaments appear stable, but there is guarding on exam LEG EXAMINATION: unremarkable General exam GENERAL APPEARANCE in no acute c ardiopulmonary distress, well developed, well nourished, no acute cardiopulmonary distress HEAD normocephalic, atrau matic EYES extraocular movement full and smooth EARS normal ORAL CAVITY mucosa moist NECK/THYROID neck supple, neck st iff SKIN no suspicious lesion , warm and dry LUNGS respiratory rate and rhythm normal EXTREMITIES RLE...stigmata of ma rked chronic lymphedema NEUROLOGIC alert, oriented to p erson, place, and time, nonfocal, motor 5/5 , sensation intact at all extremities, reflexes intact and symmetric PSYCH alert, good eye cont act, cooperative with examination, mood and affect normal, speech content normal, responses are appropriate, no thought disorders noted, no suicidal ideation
--- OUTSIDE RECORDS SUMMARY | 2024-03-24 19:03 | XMS_ITS ---
Author Organization [facility] [place] Address [address] [place] [address] Care Team Providers Care Accounts Payable Professional Name Role Phone Chan Amaya Primary Care Provider Baltazar Kapoor Unavailable [phone] Allergies No Known Allergies REASON FOR VISIT knee pain Medications Medication SIG (Take, Route, Frequency, Duration) [...] ast year? No Points 0 Interpretation Negative Vital Signs Heart Rate 74 /min 09/28/2022 Blood pressure systolic 134 mm Hg 09/29/19 Blood pressure diastolic 80 mm Hg 023 Height 5.7 ft in 09/28/2022 Weight 305 lbs 09/28/2022 BMI 45.83 kg/m2 09/28/2022 Respiratory Rate 15 /min 09/28/2022 FILL DAY: 08/28/2022 MD Encounters Encounter Location Date Provider Diagnosis [facility] [address] [place] [address] 09/28/2022 Baltazar Chakrabortytenzin primary osteoarthrit is bilateral knee M17.0 ; Chronic pain syndrome G89.4 and Opioid dependence, uncomplicated F11.20 Assessments Encounter Date Diagnosis (ICD Code) Assessment Notes Treatment Notes Treatment Clinical Notes Section Notes 09/28/2022 primary osteoarthritis bilateral knee (ICD-10 - M17.0) 09/28/2022 Chronic pain syndrome (ICD-10 - G89.4) TREATMENT OBJECTIVES: To allow the patient to maximize and maintain optimal physical activity and function.To allow the patient to return to productive activity at home, socially, and/or at work. To allow the patient to increase the patient's ability to self-manage pain and handle related problems. We discussed treatment options including risk/benefit and alternatives: Medications, Physical Therapy, Bracing, Injections to decrease pain, and Referral to a Specialist or Surgeon. PAIN MEDICATIONS: refill hydrocodone 10mg QID (increased from tid on 06-29-21) TREATMENT RECOMMENDED: Dexamethasone and toradol injections today. Voluntary discharge letter today...moving to [place], [place]. Continue to monitor and treat....insuranc e denied gel injections and steroid/GNB failed to improve pain. Repeat bilateral knee steroid injections prn. Follow up with PCP for vascular referral to address chronic lymphedema disease that prevents weight loss and TKR's. Follow up with ortho for TKR's when ready...must lose weight. Refill med. RTC prn PATIENT EDUCATION: We reviewed our pain contract with this patient who is in agreement. My goal for this patient is to try and minimize the use of narcotics while increasing their ability to function and quality of life through a multi-therapeutic pain approach. Control pain by about 50% and Utilize lowest possible MEDD. I spent significant time with this patient in education and counseling on treatment options. I reviewed in detail with the patient the various treatment options including the limits, risks, benefits and side effects of each option. I gave education on the use of ice/heat, as well as the importance of daily low-impact aerobic exercise which is beneficial for their pain as well as overall health. We discussed the importance of healthy diet, nutrition and weight parameters. We discussed in detail their radiographic findings and current medications. 09/28/2022 Opioid dependence, uncomplicated (ICD-10 - F11.20) Plan Of Treatment Medication Medication Name Sig Start Date Stop Date Notes HYDROcodone-Acetaminophe n 10-325 MG 1 tablet as needed Orally every 6 hrs for 30 days 09/28/2022 Chronic Pain Syndrome- G89.4 Exempt Treatment Notes Assessment Notes Chronic pain syndrome TREATMENT OBJECTIVES: To allow the patient to maximize and maintain optimal physical activity and function.To allow the patient to return to productive activity at home, socially, and/or at work. To allow the patient to increase the patient's ability to self-manage pain and handle related problems. We discussed treatment options including risk/benefit and alternatives: Medications, Physical Therapy, Bracing, Injections to decrease pain, and Referral to a Specialist or Surgeon. PAIN MEDICATIONS: refill hydrocodone 10mg QID (increased from tid on 06-29-21) TREATMENT RECOMMENDED: Dexamethasone and toradol injections today. Voluntary discharge letter today...moving to [place], [place]. Continue to monitor and treat....insurance denied gel injections and steroid/GNB failed to improve pain. Repeat bilateral knee steroid injections prn. Follow up with PCP for vascular referral to address chronic lymphedema disease that prevents weight loss and TKR's. Follow up with ortho for TKR's when ready...must lose weight. Refill med. RTC prn PATIENT EDUCATION: We reviewed our pain contract with this patient who is in agreement. My goal for this patient is to try and minimize the use of narcotics while increasing their ability to function and quality of life through a multi-therapeutic pain approach. Control pain by about 50% and Utilize lowest possible MEDD. I spent significant time with this patient in education and counseling on treatment options. I reviewed in detail with the patient the various treatment options including the limits, risks, benefits and side effects of each option. I gave education on the use of ice/heat, as well as the importance of daily low-impact aerobic exercise which is beneficial for their pain as well as overall health. We discussed the importance of healthy diet, nutrition and weight parameters. We discussed in detail their radiographic findings and current medications. Next Appt Details Follow Up: prn, Reason: Medications Administered Medication Instructions Date of Administration Dosage Notes Dexamethasone 09/28/2022 4 mg increased k nee pain after twisting it while moving Toradol 09/28/2022 60 mg increased knee pain after twisting it while moving Progress Notes * Tiarra HAN ADOB:[birth year] (51 yo F)Acc No.[id number]:09/28/2022 Patient:Tiarra Jeffrey Appointment Provider:?DENNISE Toro :1970???Age:51 Y???Sex:Female S upervising Provider:Hema Oro M.D Date:09/28/2022 Address:[address] [place], [place] [address] , RONNIE NIÑ[facility]OR[facility] MEDICAL CENTERFX-[id number] Pcp:Chan Amaya Subjective: * Chief Complaints: * ???Knee pain * HPI: ???Intervention:? Ms. Han returns to clinic today. She is a morbidly pleasant 51 year- old woman who is referred to us from Dr. Amaya. She suffers from three years of bilateral knee pain. She has history of RLE lymphedema due to history of multiple DVT's. She underwwent removal of DVT in E September with subsequent wound infection. She moved back to [place] from [place] in September. ?On today's visit, she reports that the past [...] side effects and her affect is normal. ?pill count: accurate ?aberrant behavior: ?03-27-21 short pill count and +egt on Feb uds...vw given ?05-02-21 no bottle, vw given ?2--23 inconsistent uds Dec '22....+EGT....ww given today ?past pain clinic: ?1. Pain clinic in [facility] ?03/08/2022 HYDROCODONE-ACETAMIN 10-325 MG 120.00 30 9092 [id number] 03/08/2022 [id number] 40.00 N N [id number] 03 ?01/25/2022 HYDROCODONE-ACETAMIN 10-325 MG 120.00 30 9092 [id number] 01/23/2022 [id number] 40.00 N N [id number] 03 ?12/26/2021 HYDROCODONE-ACETAMIN 10-325 MG 120.00 30 9092 [id number] 12/26/2021 [id number] 40.00 N N [id number] 03 ?11/24/2021 HYDROCODONE-ACETAMIN 10-325 MG 120.00 30 9092 [id number] 11/20/2021 [id number] 40.00 N N [id number] 03 ?10/25/2021 HYDROCODONE-ACETAMIN 10-325 MG 120.00 30 9092 [id number] 10/23/2021 [id number] 40.00 N N [id number] 03 ?10/17/2021 HYDROCODONE-ACETAMIN 10-325 MG 40.00 7 9092 [id number] 10/17/2021 [id number] 57.14 N N [id number] 03 ?09/12/2021 HYDROCODONE-ACETAMIN 10-325 MG 120.00 30 9092 [id number] 09/12/2021 [id number] 40.00 N N [id number] 03 ?09/09/2021 HYDROCODONE-ACETAMIN 10-325 MG 12.00 3 9092 [id number] 09/09/2021 [id number] 40.00 N N [id number] 03 ?09/09/2021 GABAPENTIN 100 MG CAPSULE 3.00 3 9092 [id number] 09/09/2021 [id number] - N N [id number] 03 ?09/08/2021 HYDROCODONE-ACETAMIN 10-325 MG 24.00 6 9092 [id number] 09/08/2021 [id number] 40.00 N N [id number] 04 ?09/05/2021 HYDROCODONE-ACETAMIN 10-325 MG 2.00 1 9092 [id number] 08/28/2021 [id number] 20.00 N N [id number] 99 ?09/01/2021 GABAPENTIN 100 MG CAPSULE 13.00 13 9092 [id number] 09/01/2021 [id number] - N N [id number] 04 ?08/28/2021 HYDROCODONE-ACETAMIN 10-325 MG 28.00 7 9092 [id number] 08/28/2021 [id number] 40.00 N N [id number] 04 ?08/23/2021 GABAPENTIN 100 MG CAPSULE 1.00 1 9092 [id number] 08/23/2021 [id number] - N N [id number] 04 ?08/23/2021 HYDROCODONE-ACETAMIN 10-325 MG 30.00 10 9092 [id number] 08/23/2021 [id number] 30.00 N N [id number] 99 ?08/15/2021 HYDROCODONE-ACETAMIN 10-325 MG 27.00 9 9092 [id number] 08/15/2021 [id number] 30.00 N N [id number] 04. * ROS:?General/Constitutional:?drowsiness?Denies.?Nausea?Denies.?Denies?Loss of appetite.?Denies?Chills.?Allergy/Immunology:?Denies?Blistering of skin.?Denies?Congestion.?Denies?Hives.?Denies?Rash.?Ophthalmologic:?Double [...] testing.?Denies?Skin exam.?blood stool,pain in stomach. * Medical History:? * Surgical History:?No Surgica l History documented. * Hospitalization/Major Diagno stic Procedure:?No Hospitalization History. * Family History:?Daughter(s): alive, diagnosed with Other specified conditions influencing health status.?Mother: unknown.? * Social History:?SOAPP- R:?SOAPP-R: Rivera Simmons 07/16/2022 1:37:23 PM > 2BastdaydayRivera 08/28/2022 1:58:22 PM > 0. ???PHQ-9:?PHQ-9 Date: Melanie Carranza 01/26/2021 2:26:03 PM > 3BastdaydayRivera 04/10/2022 2:42:07 PM > 0. ???Contract Date:?Contract Date: Rivera Payton 01/09/2021 2:53:50 PM >sa. ???COMM :?Score #: Rivera Simmons 09/12/2021 2:41:40 PM > 1Basta,Rivera 08/28/2022 3:02:54 PM > 0. ???Drugs/Alcohol:?Drugs?Have you ever used drugs other than those used for medical reasons in the last 12 months?No ?Alcohol Screen?Did you have a drink containing alcohol in the past year??No ?Points?0 ?Interpretation?Negative ???Miscellaneous:?Living with: Daughter/Son. * Medications:?TakingHYDROcodo ne-Acetaminophen 10-325 MG Tablet 1 tablet as needed Orally every 6 hrs, Notes: Chronic Pain Syndrome- G89.4 ExempttraZODone HCl 50 MG Tablet TAKE 1 TABLET BY MOUTH EVERY DAY NEEDED Diagnosis Unavailable Oral Sucralfate 1 GM/10ML Suspension SHAKE LIQUID AND TAKE 1 ML BY MOUTH BEFORE MEALS AND AT BEDTIME Oral Zolpidem Tartrate 10 MG Tablet Oral Clobetasol Propionate 0.05 % Cream External Medication List reviewed and reconciled with the patientTaking HYDROcodone-Acetaminophen 10-325 MG Tablet 1 tablet as needed Orally every 6 hrs, Notes: Chronic Pain Syndrome- G89.4 ExemptTaking traZODone HCl 50 MG Tablet TAKE 1 TABLET BY MOUTH EVERY DAY NEEDED Diagnosis Unavailable Oral Taking Sucralfate 1 GM/10ML Suspension SHAKE LIQUID AND TAKE 1 ML BY MOUTH BEFORE MEALS AND AT BEDTIME Oral Taking Zolpidem Tartrate 10 MG Tablet Oral Taking Clobetasol Propionate 0.05 % Cream External Medication List reviewed and reconciled with the patient * Allergies:?N.K.D.A.no[Allerg ies Verified] Objective: * Vitals:?Last Dose09/28/2022, Pill Count2/120, HR74 /min, BP134/80 mm Hg, Ht 5.7 ft, Wt305 lbs, BMI45.83 Index, RR15 /min, Pain scale10 1-10, Ht-cm 173.74 cm, Wt- kg138.35 kg FILL DAY: 08/28/2022 . * Examination: ???General exam: ?GENERAL APPEARANCE?in no [...] but there is guarding on exam.? Assessment: * Assessment: 1.?Chronic pain syndrome - G 89.4?2.?primary osteoarthritis bilateral knee - M17.0 (Primary)?3.?Opioid dependence, uncomplicated - F11.20? Plan: * Treatment: 2.?Chronic pain syndrome? Notes: TREATMENT OBJECTIVES: To allow the patient to maximize and maintain optimal physical activity and function.To allow the patient to return to productive activity at home, socially, and/or at work. To allow the patient to increase the patient's ability to self-manage pain and handle related problems. We discussed treatment options including risk/benefit and alternatives: Medications, Physical Therapy, Bracing, Injections to decrease pain, and Referral to a Specialist or Surgeon. PAIN MEDICATIONS: refill hydrocodone 10mg QID (increased from tid on 06-29-21) TREATMENT RECOMMENDED: Dexamethasone and toradol injections today. Voluntary discharge letter today...moving to [place], [place]. Continue to monitor and treat....insurance denied gel injections and steroid/GNB failed to improve pain. Repeat bilateral knee steroid injections prn. Follow up with PCP for vascular referral to address chronic lymphedema disease that prevents weight loss and TKR's. Follow up with ortho for TKR's when ready...must lose weight. Refill med. RTC prn PATIENT EDUCATION: We reviewed our pain contract with this patient who is in agreement. My goal for this patient is to try and minimize the use of narcotics while increasing their ability to function and quality of life through a multi-therapeutic pain approach. Control pain by about 50% and Utilize lowest possible MEDD. I spent significant time with this patient in education and counseling on treatment options. I reviewed in detail with the patient the various treatment options including the limits, risks, benefits and side effects of each option. I gave education on the use of ice/heat, as well as the importance of daily low-impact aerobic exercise which is beneficial for their pain as well as overall health. We discussed the importance of healthy diet, nutrition and weight parameters. We discussed in detail their radiographic findings and current medications. .?? * Therapeutic Injections:? Dexamethasone : 4 mg (Route: Intramuscular) given by Vandana Sanz on left buttock (Chronic pain syndrome, primary osteoarthritis bilateral knee)??? Toradol : 60 mg (Route: Intramuscular) given by Vandana Sanz on right buttock (primary osteoarthritis bilateral knee, Opioid dependence, uncomplicated) * Procedure Codes:?J1100 INJ D EXAMETHASONE SODIM PHOSHATE 4 [id number] Toradol, Units: 4.00 88010 THER/PROPH/DIAG INJ, SC/IM * Preventive Medicine:? ??Counseling:?BP MANAGEMENT?PRE-HYPERTENSIVE FOLLOW-UP PLAN:?Follow-up 1 month ?LIFESTYLE RECOMMENDATION:?Lifestyle education ?Care goal follow-up plan:?BMI management provided?Yes ?Above Normal BMI Follow-up?Weight monitoring * Follow Up:?prn * Review Notes: Hema Oro 2022-10-02 06:47:57* Sign off status: Completed true * Appointment Provider:?DENNISE Toro Date:?09/28/2022 Generated for Leonie funes/Db/Joaquín on:?03/24/2024 07:03 PM MATERIALS INTERN History and Physical Notes * HPI (History [...] subsequent wound infection. She moved back to [place] from [place] in September. On today's visit, she reports [...] past pain clinic: 1. Pain clinic in [place] - [facility] 03/08/2022 HYDROCODONE-ACETAMIN 10-325 MG 120.00 30 9092 [id number] 03/08/2022 [id number] 40.00 N N [id number] 01/25/2022 HYDROCODONE-ACETAMIN 10-325 MG 120.00 30 9092 [id number] 01/23/2022 [id number] 40.00 N N [id number] 03 12/26/2021 HYDROCODONE-ACETAMIN 10-325 MG 120.00 30 9092 [id number] 12/26/2021 [id number] 40.00 N N [id number] 03 11/24/2021 HYDROCODONE-ACETAMIN 10-325 MG 120.00 30 9092 [id number] 11/20/2021 [id number] 40.00 N N [id number] 03 10/25/2021 HYDROCODONE-ACETAMIN 10-325 MG 120.00 30 9092 [id number] 10/23/2021 [id number] 40.00 N N [id number] 03 10/17/2021 HYDROCODONE-ACETAMIN 10-325 MG 40.00 7 9092 [id number] 10/17/2021 [id number] 57.14 N N [id number] 03 09/12/2021 HYDROCODONE-ACETAMIN 10-325 MG 120.00 30 9092 [id number] 09/12/[id number] 40.00 N N [id number] 03 09/09/2021 HYDROCODONE-ACETAMIN 10-325 MG 12.00 3 9092 [id number] 09/09/[id number] 40.00 N N [id number] 03 09/09/2021 GABAPENTIN 100 MG CAPSULE 3.00 3 9092 [id number] 09/09/202120050241144 - N N [id number] 03 09/08/2021 HYDROCODONE-ACETAMIN 10-325 MG 24.00 6 9092 [id number] 09/08/2021 [id number] 40.00 N N [id number] 04 09/05/2021 HYDROCODONE-ACETAMIN 10-325 MG 2.00 1 9092 [id number] 08/28/2021 [id number] 20.00 N N [id number] 09/01/2021 GABAPENTIN 100 MG CAPSULE 13.00 13 9092 [id number] 09/01/2021 [id number] - N N [id number] 04 08/28/2021 HYDROCODONE-ACETAMIN 10-325 MG 28.00 7 9092 [id number] 08/28/2021 [id number] 40.00 N N [id number] 04 08/23/2021 GABAPENTIN 100 MG CAPSULE 1.00 1 9092 [id number] 08/23/2021 [id number] - N N [id number] 04 08/23/2021 HYDROCODONE-ACETAMIN 10-325 MG 30.00 10 9092 [id number] 08/23/2021 [id number] 30.00 N N [id number] 99 08/15/2021 HYDROCODONE-ACETAMIN 10-325 MG 27.00 9 9092 [id number] 08/15/2021 [id number] 30.00 N N [id number] 04 Examination Category Sub-Category Detail Notes Category [...]
--- OUTSIDE RECORDS SUMMARY | 2024-03-24 19:04 | XMS_ITS | Patient Health Record ---
Author Organization [facility] Address [address] [place] [address] Care Team Providers Care Sample Sewer Name Role Phone Jose Luis KASPER, Chan Primary Care Provider Unavail able Kenneth Gaines Unavailable [phone] Alvin Herron MD Unavailable Unavailable Allergies No Known Allergies Reason For Referral No Information Medications Medication SIG (Take, Route, Frequency, Duration) Notes Start Date End Date Status Folic Acid 1 MG 1 tablet Orally Once a day for 30 day(s) Active Furosemide 20 MG 1 tablet Orally Once a day for 30 day(s) Active Xarelto 10 MG 1 tablet Orally Once a day for 30 day(s) Active Metoprolol Tartrate 25 MG 1 tablet with food Orally Twice a day for 30 day(s) Active Omeprazole 40 MG 1 capsule 30 minutes before morning meal Orally Once a day for 30 day(s) Active HYDROcodone-Acetaminophen 10-325 MG 1 tablet as needed Orally every 6 hrs Active Social History Tobacco Use: Social History Observation Description Date Details (start date - stop date) Never Smoker NA - NA Alcohol Screen Question Answer Notes Did you have a drink containing alcohol in the p ast year? No Points 0 Interpretation Negative Smoking Question Answer Notes Are you a: never smoker Smoking Exclusion - Screening not Performed Question Answer Notes Patient not counseled: Patient not eligible Problems Problem Type SNOMED Code ICD Code Onset Dates Problem Status W/U Status Risk Notes Problem Lymphedema (319929464) Lymphedema, not elsewhere classified (I89.0) Active confirmed Plan Of Treatment No Information Insurance Providers Payer Name Payer Address Payer Phone Subscriber Number Group Number Insured Name Patient Relationship to Insured Coverage Start Date Coverage End Date [employer]/Am erivantage [address] [address] [place] [address] [id number] Tiarra Addison Self - patient is the insured 1 Medical (General) History Medical History History ICD Code GERD AFIB DVT Chronic Lymphedema Hypertension Anxiety Depression Obesity Surgical History Surgery Date(Month/Year) wound exploration and control bleeding, wound vac application 07/08/2021 incision, drainage, debridem ent right upper thigh and right lower leg wounds 07/07/2021 incision and drainage right leg abcess Hospitalization History Reason Date(Month/Year) see surgical hx above
--- OUTSIDE RECORDS SUMMARY | 2024-03-24 19:42 | XMS_ITS | Clinical Summary ---
Author Organization Unknown Care Team Providers Care Liquor Merchant Name Role Phone SANTI KASPER, FAIZA Unavailable Unavailable KING GEOVANY, LASHAWN Unavailable Unavailable ALEXANDRIA PT, SHIRLEY Unavailable Unavailable EVGENY OT, FAM Unavailable Unavailable DASHAWN RN, MARKO Unavailable Unavailable Payers Payer Name Policy Type Policy Number Effective Date Expira tion Date [facility] [id number] R[facility]EN.DEDE.[facility].[facility] [id number] Problems Condition Name Condition Details Condition Category [...] [BMI] 50.0-59.9, ADULT Active 09-12 00:00: 00 RETIREMENT (CURRENT) USE OF ANTICOAGULAN TS Active 04-08 [...] 200 mg tablet 09-12 00:00: 00 Yes [id number] HEART 1 tablet EVERY 12 HOURS 1 tablet EVERY 12 HOURS (route: oral) Med Classific ation: Cardiovas cular Therapy Agents gabapentin 100 mg capsule 09-12 00:00: 00 Yes [id number] PAIN 1 capsule BEDTIME 1 capsule BEDTIME (route: oral) Med Classific ation: Central Nervous System Agents magnesium 400 mg (as magnesium oxide) capsule 09-12 00:00: 00 Yes [id number] VITAMIN 1 capsule 2 TIMES DAILY 1 capsule 2 TIMES DAILY (route: oral) Med Classific ation: Electroly te Balance-N utritiona l Products metoprolol tartrate 25 mg tablet 09-12 00:00: 00 Yes [id number] HTN 1 tablet 2 TIMES DAILY 1 tablet 2 TIMES DAILY (route: oral) Med Classific ation: Cardiovas cular Therapy Agents Xarelto 10 mg tablet 09-12 00:00: 00 Yes [id number] THINNER 1 tablet DAILY 1 tablet DAILY (route: oral) Med Classific ation: Hematolog ical Agents ertapenem 1 gram solution for injection 10-16 00:00: 00 10-23 23:59 :00 No [id number] CELLULITUS 1 g DAILY 1 g DAILY (route: injection) Med Classific ation: Anti-Infe ctive Agents Heparin Lock Flush (Porcine) (PF) 100 unit/mL intravenous syringe 10-16 00:00: 00 10-23 23:59 :00 No [id number] AT END OF INFUSION 5 unit DAILY 5 unit DAILY (route: intravenou s) Med Classific ation: Hematolog ical Agents Normal Saline Flush 0.9 % injection syringe 10-16 00:00: 00 10-23 23:59 :00 No [id number] BEFORE AND AFTER INFUSION 10 mL DAILY [...] CALL US FIRST WITH ANY HEALTH ISSUES [facility] GO INTO THE HOSPITAL. NEGATIVE PRESSURE DRESSING [...] CALL US FIRST WITH ANY HEALTH ISSUES [facility] GO INTO THE HOSPITAL. NEGATIVE PRESSURE DRESSING [...] PATIENT REPORTED WEIGHT AND NOTIFY CM / CARDIAC EXERCISE SPECIALIST FOR MD NOTIFICATION FOR SIGNS AND SYMPTOMS [...] PATIENT REPORTED WEIGHT AND NOTIFY CM / CARDIAC EXERCISE SPECIALIST FOR MD NOTIFICATION FOR SIGNS AND SYMPTOMS [...] End Date/Time Encounter Type Admission Type Attending [facility] Care Facility Care Department Encounter ID Discharge Date Discharge Status Discharge Condition Discharge Reason Percent Goals Met 2021-09-12 00:00:00 2021 00:00:00 Outpatient [facility] [id number] 2021 00:00:00 DISCHARGE TO HOME OR SELF CARE INDEPENDEN T WITH USE OF ASSISTIVE DEVICE HH OR PAL- GOALS MET 75.56
--- OUTSIDE RECORDS SUMMARY | 2024-03-24 19:43 | XMS_ITS | Encounter Summary ---
Author Organization [facility] Address [address] [place] [address] Care Team Providers Care Special Education Kindergarten Teacher Name Role Phone Provider, Abstract Primary Care Provider Unavail able Encounter Details Date Type Department Care Team (Late st Contact Info) Description 12/04/2023 External Device Data [place] ABSTRACTION Provider, Abstract NO ADDRESS ON FILE Social History Tobacco Use Types Packs/Day Years Used Date Smoking Tobacco: Never Smokeless Tobacco: Never Alcohol Use Standard Drinks/Week Comments Yes 0 (1 standard drink = 0.6 oz pur e alcohol) occasionlly Sex and Gender Information Value Date Recorded Sex Assigned at Female 10/28/2023 1:46 PM CDT Gender Identity Female 10/28/2023 1:46 PM CDT Sexual Orientation Straight 10/28/2023 1: 46 PM CDT documented as of this encounter Plan of Treatment Not on file documented as of this encounter Visit Diagnoses Not on filedocumented in this encounter Care Teams Special Education Kindergarten Teacher Relationship Specialty Start Date End Date Provider, Abstract NO ADDRESS ON FILE PCP - General 08/20/19 documented as of this encounter
--- OUTSIDE RECORDS SUMMARY | 2024-03-24 19:43 | XMS_ITS | Encounter Summary ---
Author Organization [facility] Address [address] [place] [address]. [place] [address] [place] [address] Care Team Providers Care Curriculum Writer Name Role Phone None, Provider Primary Care Provider Unavaila ble Reason for Visit * Reason Comments Chest Pain Encounter Details Date Type Department Care Team (Late st Contact Info) Description 01/23/2018 11:40 PM CDT - 01/24/2018 3:42 AM CDT Emergency [facility] [place] [address] Lizett Ruiz MD [address] [id number] Chest Pain Discharge Disposition: Home or Self [...] this encounter Discharge Instructions * Discharge Instructions* Lziett Ruiz MD - 01/24/2018 3:11 AM CDT Please followup with a primary care doctor in the next few days for further evaluation. Please consider drinking less. Please come back to the ER if symptoms worsen, if you have any concerns, or symptoms worsen. * Attachments The following attachments cannot be sent through Care Everywhere. * CHEST PAIN ([place]) * CHEST PAIN DISCHARGE INSTRUCTIONS ([place]) documented in this encounter Medications at Time [...] n/v/d, headache, dizziness. No hx of early IA in her family. Does drink nearly a [...] 01/23/18 ECG 12-Lead Narrative [facility] [address] [place] [address] Test Date: 2018-01-23 Pat Name: TIARRA HAN Department: 41 Room: Gender: Female Pot Feeder: NATE : 1970 Requested By: LIZETT RUIZ Order Number: [id number] Reading MD: Measurements Intervals [place] Rate: 64 P: 41 LA: 176 QRS: -9 QRSD: 91 T: -3 [...] AM CDT) 01/24/2018 2:44 AM CDT Narrative [facility] - 01/24/2018 10:08 AM CDT ?[facility] ? [address] [place] ? Test Date: ?2018-01-24 Pat Name: ? TIARRA HAN ?Department: ?? 41 ? Room: ? [id number] Gender: ? Female ? Pot Feeder: ?? jt : ?1970 ? Requested By: LIZETT TORRESAMED Order Number: [id number] ? Reading MD: ?? Madhu Johnson ? Measurements Intervals ?[place] ? Rate: ? 73 ? P: ?20 LA: ? 178 ?QRS: ?-4 QRSD: ? 94 ? T: ?7 QT: ? 410 ? QTc: ?452 ? Interpretive Statements SINUS RHYTHM WITH OCCASIONAL VENTRICULAR PREMATURE COMPLEXES LOW QRS VOLTAGE IN PRECORDIAL LEADS Compared to ECG 01/23/2018 23:10:54 Ventricular premature complex(es) now present Procedure Note Madhu Johnson MD - 01/24/[address] Test Date: 2018-01-24 Pat Name: TIARRA HAN Department: 41 Room: [place] [address] Gender: Female Pot Feeder: ashley : 1970 Requested By: LIZETT RUIZ Order Number: [id number] Reading MD: Madhu Johnson Measurements Intervals [place] Rate: 73 P: 20 LA: 178 QRS: -4 QRSD: 94 T: 7 QT: 410 QTc: 452 Interpretive Statements SINUS RHYTHM WITH OCCASIONAL VENTRICULAR PREMATURE COMPLEXES LOW QRS VOLTAGE IN PRECORDIAL LEADS Compared to ECG 01/23/2018 23:10:54 Ventricular premature complex(es) now present us Lizett Ruiz MD ECG ORDERABLES Final Result Performing Organization Address [facility] Co de Phone Number [facility] * TROPONIN, QUANT (01/24/2018 2:32 AM CDT) TROPONIN I <0.015 <0.045 ng/mL. 01/24/2018 3:02 AM CDT [facility] Comment: HIGH DOSES OF BIOTIN MAY INTERFERE WITH THIS TEST RESULT. CORRELATION TO CLINICAL HISTORY AND PRESENTATION RECOMMENDED. 01/24/2018 2:32 AM CDT Lizett Ruiz MD LABORATORY Final Result Performing Organization Address [facility] Co de Phone Number [facility] [address] [place] [address], [place] [phone] * XR CHEST PORTABLE (01/23/2018 11:58 PM [...] <0.015 <0.045 ng/mL. 01/24/2018 12:10 AM CDT [facility] Comment: HIGH DOSES OF BIOTIN MAY INTERFERE WITH THIS TEST RESULT. CORRELATION TO CLINICAL HISTORY AND PRESENTATION RECOMMENDED. 01/23/2018 11:3 0 PM CDT Lizett Ruiz MD LABORATORY Final Result [facility] [address] [place] [address], * (ABNORMAL) COMPREHENSIVE METABOLIC PANEL (01/23/2018 11:30 PM CDT) [facility] Signature GLUCOSE 82 70 - 99 MG/DL 01/24/2018 12:10 AM CDT [facility] BUN 18 7 - 18 MG/DL 01/24/2018 12:10 AM CDT [facility] CREATININE S/P/B 0.92 0.55 - 1.02 MG/DL 01/24/2018 12:10 AM CDT [facility] SODIUM S/P/B 141 136 - 145 MMOL/L 01/24/2018 12:10 AM CDT [facility] POTASSIUM S/P/B 4.1 3.5 - 5.1 MMOL/L 01/24/2018 12:10 AM CDT [facility] CHLORIDE S/P/B 113(H) 100 - 108 MMOL/L 01/24/2018 12:10 AM CDT [facility] CO2 21.0 21 - 32 MMOL/L 01/24/2018 12:10 AM CDT [facility] CALCIUM S/P/B 8.5 8.5 - 10.1 MG/DL 01/24/2018 12:10 AM CDT [facility] BILIRUBIN TOTAL S/P/B 0.2 0.2 - 1.2 MG/DL 01/24/2018 12:10 AM CDT [facility] TOTAL PROTEIN S/P/B 8.0 6.4 - 8.2 G/DL 01/24/2018 12:10 AM CDT [facility] ALBUMIN S/P/B 3.1(L) 3.4 - 5.0 G/DL 01/24/2018 12:10 AM CDT [facility] AST 29 15 - 37 U/L 01/24/2018 12:10 AM CDT [facility] ALT 22 14 - 55 U/L 01/24/2018 12:10 AM CDT [facility] ALKALINE PHOSPHATASE S/P/B 84 50 - 136 U/L 01/24/2018 12:10 AM CDT [facility] ANION GAP 11.1 8 - 20 MMOL/L 01/24/2018 12:10 AM CDT [facility] BUN CREATININE RATIO 19.6 6 - 26 01/24/2018 12:10 AM T [facility] A/G RATIO 0.6(L) 1.0 - 2.0 RATIO 01/24/2018 12:10 AM T [facility] EGFR NON-AFR. AMER. 74(L) >90 ML/MIN/1.7 3 M2 01/24/2018 12:10 AM CDT [facility] EGFR AFR. AMER. 85(L) >90 ML/MIN/1.7 3 M2 01/24/2018 12:10 AM T [facility] Comment: NOTE: eGFR is not calculated for patients <18 years of age. This is an estimated GFR (CKD EPI) and should not be used for calculating drug doses. 01/23/2018 11:3 0 PM CDT us Lizett Ruiz MD LABORATORY Final Result [facility] [address] [place] [address], [place] [phone] * (ABNORMAL) CBC W/DIFF AUTOMATED (01/23/2018 11:30 PM CDT) WBC 8.1 4.5 - 11.0 x10'3/uL 01/24/2018 12:13 AM CDT [facility] RBC 4.28 4.20 - 5.40 x10'6/uL 01/24/2018 12:13 AM CDT [facility] HGB 9.2(L) 12.0 - 16.0 G/DL 01/24/2018 12:13 AM CDT [facility] HCT 32.2(L) 38.0 - 48.0 % 01/24/2018 12:13 AM CDT [facility] MCV 75.2(L) 81.0 - 99.0 FL 01/24/2018 12:13 AM CDT [facility] MCH 21.5(L) 27.0 - 31.0 PG 01/24/2018 12:13 AM CDT [facility] MCHC 28.6(L) 32.0 - 36.0 G/DL 01/24/2018 12:13 AM CDT [facility] RDW 19.0(H) 11.5 - 14.5 % 01/24/2018 12:13 AM CDT [facility] PLT 314 130 - 400 x10'3/uL 01/24/2018 12:13 AM T [facility] MPV 9.6 9.3 - 12.2 FL 01/24/2018 12:13 AM T [facility] DIFFERENTIAL TYPE AUTOMATED DIFFERENTIAL 01/24/2018 12:16 AM CDT [facility] NEUTROPHILS % 56.4 % 01/24/2018 12:16 AM T [facility] LYMPHOCYTES % 30.1 % 01/24/2018 12:16 AM T [facility] MONOCYTES % 8.9 % 01/24/2018 12:16 AM T [facility] EOSINOPHILS 3.7 % 01/24/2018 12:16 AM CDT [facility] BASOPHILS 0.5 % 01/24/2018 12:16 AM CDT [facility] IMMATURE GRANS % 0.4(H) 0 % 01/25/20 12:16 AM CDT [facility] ABS. NEUTROPHILS TOTAL 4.54 1.80 - 7.70 x10'3/uL 01/24/2018 12:16 AM CDT [facility] ABS. LYMPHOCYTES 2.42 1.00 - 4.80 x10'3/uL 01/24/2018 12:16 AM CDT [facility] ABS. MONOCYTES 0.72 0.24 - 0.86 x10'3/uL 01/24/2018 12:16 AM CDT [facility] ABS. EOSINOPHILS 0.30 0.04 - 0.36 x10'3/uL 01/24/2018 12:16 AM CDT [facility] ABS. BASOPHILS 0.04 0.01 - 0.08 x10'3/uL 01/24/2018 12:16 AM CDT [facility] ABS. IMMATURE GRANULOCYTES 0.03 0.00 - 0.03 x10'3/uL 01/24/2018 12:16 AM CDT [facility] RBC MORPHOLOGY SLIDE REVIEWED 2017 12:16 AM CDT [facility] ANISO 1+ 01/24/2018 12:16 AM CDT [facility] POIKLO 1+ 01/24/2018 12:16 AM CDT [facility] HYPOCHROMASIA 3+ 01/24/2018 12:16 AM CDT [facility] MICRO 1+ 01/24/2018 12:16 AM CDT [facility] POLY 1+ 01/24/2018 12:16 AM CDT [facility] PLT EST. ADEQUATE 01/24/2018 12:16 AM CDT [facility] 01/23/2018 11:3 0 PM CDT us Lizett Ruiz MD LABORATORY Final Result [facility] [address] [place] [address], * ECG 12-Lead (01/23/2018 11:10 PM CDT) 01/23/2018 11:1 0 PM CDT Narrative [facility] - 01/24/2018 10:13 AM CDT ?[facility] ? [address] [facility] ? Test Date: ?2018-01-23 Pat Name: ? TIARRA HAN ?Department: ?? 41 ? Room: ? Gender: ? Female ? Pot Feeder: ?? PL : ?1970 ? Requested By: LIZETT RUIZ Order Number: [id number] ? Yesica KASPER: ?? Madhu Johnson ? Measurements Intervals ?[place] ? Rate: ? 64 ? P: ?41 LA: ? 176 ?QRS: ?-9 QRSD: ? 91 [...] Madhu Johnson MD - 01/24/2018 [facility] [address] [facility] Test Date: 2018-01-23 Pat Name: TIARRA HAN Department: 41 Room: Gender: Female Pot Feeder: NATE : 1970 Requested By: LIZETT RUIZ Order Number: [id number] Reading MD: Madhu Johnson Measurements Intervals [place] Rate: 64 P: 41 LA: 176 QRS: -9 QRSD: 91 T: -3 QT: 410 QTc: 423 Interpretive Statements SINUS RHYTHM LOW QRS VOLTAGE IN PRECORDIAL LEADS j point elevation c/w early repolarization PATTERN CONSISTENT WITH PULMONARY DISEASE MODERATE VOLTAGE CRITERIA FOR LVH, CONSIDER NORMAL VARIANT nonspecific STT abnormality No previous ECG available for comparison Lizett Ruiz MD ECG ORDERABLES Final Result [facility] documented in this encounter Visit Diagnoses [...] RN) documented in this encounter Care Teams Curriculum Writer Relationship Specialty Start Date End Date None, Provider, PCP - General 01/06/18 documented as of this encounter
--- OUTSIDE RECORDS SUMMARY | 2024-03-24 19:43 | XMS_ITS | Encounter Summary ---
Author Organization [facility] [employer] [facility] Address [address] [place] [address] Care Team Providers Care Lime Kiln And Recausticizing Operator Name Role Phone Provider, Abstract Primary Care Provider Unavail able Reason for Visit * Reason Comments Medication Refill Encounter Details Date Type Department Care Team (Late st Contact Info) Description 10/14/2019 Refill [facility] Oncology and Hematology - [place] [address] [facility] [address] [place] [address] Hardik Mane MD [address] [facility] [address] [place] [address] Acute deep vein thrombosis (DVT) of proximal vein of lower extremity, unspecified laterality Social History Tobacco Use Types Packs/Day Years Used Date Smoking Tobacco: Never Smokeless Tobacco: Never Alcohol Use Standard Drinks/Week Comments Yes 0 (1 standard drink = 0.6 oz pur e alcohol) occasionlly Sex and Gender Information Value Date Recorded Sex Assigned at Female 10/28/2023 1:46 PM CDT Gender Identity Female 10/28/2023 1:46 PM CDT Sexual Orientation Straight 10/28/2023 1: 46 PM CDT COVID-19 Exposure Response Date Recorded In the last month, have you been in contact with someone who was confirmed or suspected to have Coronavirus / COVID-19? No / Unsure 09/22/2019 10:51 AM CDT documented as of this encounter Plan of Treatment Not on file documented as of this encounter Visit Diagnoses Diagnosis Acute deep vein thrombosis (DVT) of proximal vein of lower extremity, unspecified laterality documented in this encounter Care Teams Lime Kiln And Recausticizing Operator Relationship Specialty Start Date End Date Provider, Abstract NO ADDRESS ON FILE PCP - General 5/14/20 documented as of this encounter
--- OUTSIDE RECORDS SUMMARY | 2024-03-24 19:43 | XMS_ITS | Encounter Summary ---
Author Organization [facility] Address [address] [place] [address]. [place], [place] [address] [place] [address] Care Team Providers Care Denture Contour Wire Specialist Name Role Phone None, Provider Primary Care Provider Unavaila ble Encounter Details Date Type Department Care Team (Late st Contact Info) Description 10/06/2019 Scan [facility] at [facility], [address] [address] Scanned, Documents Social History Tobacco Use Types [...] on filedocumented in this encounter Care Teams Denture Contour Wire Specialist Relationship Specialty Start Date End Date None, Provider, PCP - General 01/06/18 documented as of this encounter
--- OUTSIDE RECORDS SUMMARY | 2024-03-24 19:43 | XMS_ITS | Encounter Summary ---
Author Organization [facility] [employer] [facility] Address [address] [place] [address] Care Team Providers Care Biofuels Plant Operations Engineer Name Role Phone Provider, Abstract Primary Care Provider Unavail able Encounter Details Date Type Department Care Team (Late st Contact Info) Description 11/23/2019 Orders Only [facility] Oncology and Hematology - [place] [address] [place] [address] Racheal Maloney RN Chronic anemia Social History Tobacco Use Types Packs/Day Years [...] of this encounter Visit Diagnoses Diagnosis Chronic anemia Anemia, unspecified documented in this encounter Care Teams Biofuels Plant Operations Engineer Relationship Specialty Start Date End Date Provider, Abstract NO ADDRESS ON FILE PCP - General 08/20/19 documented as of this encounter
--- OUTSIDE RECORDS SUMMARY | 2024-03-24 19:43 | XMS_ITS | Encounter Summary ---
Author Organization [facility] Address [address] [place] [address] Care Team Providers Care Fabric Designer Name Role Phone Provider, Abstract Primary Care Provider Unavail able Encounter Details Date Type Department Care Team (Late st Contact Info) Description 11/19/2023 External Device Data STL ABSTRACTION Provider, Abstract [...] on filedocumented in this encounter Care Teams Fabric Designer Relationship Specialty Start Date End Date Provider, Abstract NO ADDRESS ON FILE PCP - General 08/20/19 documented as of this encounter
--- OUTSIDE RECORDS SUMMARY | 2024-03-24 19:43 | XMS_ITS | Encounter Summary ---
Author Organization [facility] [employer] [facility] Address [address] [place] [address] Care Team Providers Care Surgical Clinical Reviewer Name Role Phone Provider, Abstract Primary Care Provider Unavail able Encounter Details Date Type Department Care Team (Late st Contact Info) Description 03/03/2024 Orders Only [facility] Oncology and Hematology - [place] [address] [facility] [address] [place] [address] Hardik Mane MD [address] [facility] [address] [place] [address] Social History Tobacco Use Types Packs/Day Years [...] Name Priority Date/Time Associated Diagnosis Comments US DOPPLER LOWER GRAFT RT Routine 02/28/2024 10:55 AM RESET MERCHANDISER documented in this encounter Results * US DOPPLER LOWER GRAFT RT (02/28/2024 10:55 AM RESET MERCHANDISER) Anatomical Region Laterality Modality Lower Extremity Other Hardik Mane MD US ORDERABLES documented in this encounter Visit Diagnoses Not on filedocumented in this encounter Care Teams Surgical Clinical Reviewer Relationship Specialty Start Date End Date Provider, Abstract NO ADDRESS ON FILE PCP - General 5/14/20 documented as of this encounter
--- OUTSIDE RECORDS SUMMARY | 2024-03-24 19:43 | XMS_ITS | Clinical Summary ---
Author [facility] Address [address] [place] [address] Care Team Providers Care Milling General Superintendent Name Role Phone Provider, Abstract Primary Care Provider Unavail able Allergies No known active allergies Medications Medication Sig Dispensed Refills Start Date End Date Status zolpidem (AMBIEN) 5 mg tablet TK 1 T PO QD 08/25/2019 Active potassium chloride (KLOR-CON) 10 mEq Extended Release tablet TAKE 1 TABLET BY MOUTH EVERY DAY 06/04/2019 Active omeprazole (PriLOSEC) 40 mg Capsule, Delayed Release(E.C.) omeprazole 40 mg capsule,delayed release TAKE 1 CAPSULE(S) EVERY DAY BY ORAL ROUTE FOR 60 DAYS. Active metoprolol succinate (TOPROL XL) 25 mg Extended Release 24 hour tablet TAKE 1 TABLET BY MOUTH EVERY DAY 06/04/2019 Active lisinopriL (PRINIVIL) 10 mg tablet TAKE 1 TABLET BY MOUTH EVERY DAY 06/04/2019 Active HYDROcodone-acetami nophen (NORCO) 7.5-325 mg Tablet hydrocodone 7.5 mg-acetaminophen 325 mg tablet Active furosemide (LASIX) 40 mg tablet TAKE 1 TABLET BY MOUTH EVERY DAY 06/04/2019 Active folic acid (FOLVITE) 1 mg tablet TK 1 T PO QD 08/21/2019 Active folic acid (FOLVITE) 1 mg tablet folic acid 1 mg tablet 03/17/2018 Active ferrous sulfate 325 mg (65 mg iron) tablet ferrous sulfate 325 mg (65 mg iron) tablet Active cyanocobalamin (VITAMIN B-12) 1,000 mcg/mL Solution 08/21/2019 Active Xarelto 15 mg TabletIndications:A cute deep vein thrombosis (DVT) of proximal vein of lower extremity, unspecified laterality TAKE 1 TABLET BY MOUTH TWICE DAILY WITH MEALS FOR 21 DAYS. FOLLOWED BY 20MG TABLET BY MOUTH TAKEN DAILY WITH FOOD 42 Tablet 10/14/2019 Active Active Problems Problem Noted Date Diagnosed Date Chronic anemia 09/07/2019 Other dietary vitamin B12 deficiency anemia 04/2019 Secondary hypercoagulable state 09/07/2019 Encounters Date Type Department Care Team Description 03/03/2024 Orders Only [facility] Oncology and Hematology - [place] [address] [place] [address] Hardik Mane MD 01/21/2024 External Device Data STL ABSTRACTION Provider, Abstract 12/24/2023 External Device Data STL ABSTRACTION Provider, Abstract from Last 3 Months Social History Tobacco [...] Orientation Straight 10/28/2023 1: 46 PM CDT Last Filed Vital Signs Vital Sign Reading Time Taken Comments Blood Pressure 107/75 11/13/2023 1:35 PM CDT Pulse 77 11/13/2023 1:35 PM CDT Temperature 36.2 ??C (97.1 ??F) 11/13/2023 1:35 PM CD T Respiratory Rate 12 11/13/2023 1:35 PM CDT Oxygen Saturation 92% 11/13/2023 1:35 PM CDT Inhaled Oxygen Concentration - - Weight 130.1 kg (286 lb 12.8 oz) 11/13/2023 1:35 PM CDT Height 170.2 cm (5' 7 ) 11/13/2023 1:35 PM CDT Body Mass Index 44.92 11/13/2023 1:35 PM CDT Plan of Treatment Health Maintenance Due Date Last Done Comments Pre-Diabetes and Diabetes Screening 1970 DTAP/TDAP/TD VACCINES (1 - Tdap) 1988 HEPATITIS B VACCINES (1 of 3 - 19+ 3-dose series) 1988 CERVICAL CANCER SCREENING 12/30/1999 BREAST CANCER SCREENING 2009 FIT-DNA Q 3 years 2014 FIT/FOBT Q 1 year 2014 Flex Sig/CT Colonography Q 5 years 2014 ZOSTER VACCINE (1 of 2) 12/30/2019 INFLUENZA VACCINE (#1) 2023 01/31/2021 COVID-19 Vaccine (3 - 2023-2 5 season) 2023 07/27/2020, 06/29/2020 COLORECTAL SCREENING 07/19/2028 07/19/2018 Colorectal Cancer Screening 07/19/2028 PNEUMOCOCCAL VACCINE 0-64 YEARS Aged Out No longer eligible b ased on patient's age to complete this topic Procedures Procedure Name Priority Date/Time Associated Diagnosis Comments US DOPPLER LOWER GRAFT RT Routine 02/28/2024 10:55 AM MILLING GENERAL SUPERINTENDENT from Last 3 Months Results * US DOPPLER LOWER GRAFT RT (02/28/2024 10:55 AM MILLING GENERAL SUPERINTENDENT) Anatomical Region Laterality Modality Lower Extremity Other Hardik Mane MD US ORDERABLES from Last 3 Months Care Teams Milling General Superintendent Relationship Specialty Start Date End Date Provider, Abstract NO ADDRESS ON FILE PCP - General 08/20/19
--- OUTSIDE RECORDS SUMMARY | 2024-03-24 19:43 | XMS_ITS | Encounter Summary ---
Author Organization [facility] Address [address] [place] [address] Care Team Providers Care Client Associate Name Role Phone Provider, Abstract Primary Care Provider Unavail able Encounter Details Date Type Department Care Team (Late st Contact Info) Description 01/21/2024 External Device Data STL ABSTRACTION Provider, [...] on filedocumented in this encounter Care Teams Client Associate Relationship Specialty Start Date End Date Provider, Abstract NO ADDRESS ON FILE PCP - General 08/20/19 documented as of this encounter
--- OUTSIDE RECORDS SUMMARY | 2024-03-24 19:43 | XMS_ITS | Encounter Summary ---
Author Organization [facility] Address [address] [place] [address]. [place], [place] [address] [place] [address] Care Team Providers Care Corporate Paralegal Name Role Phone None, Provider Primary Care Provider Unavaila ble Reason for Visit * Reason Comments Chest Pain Encounter Details Date Type Department Care Team (Late st Contact Info) Description 03/28/2018 2:05 PM LIGHT CLEANER - 03/28/2018 5:50 PM LIGHT CLEANER Emergency [facility] [place] [address] Martha Donnelly MD Chest Pain Discharge Disposition: [...] Comments Blood Pressure 127/56 03/28/2018 5:50 PM LIGHT CLEANER Pulse 75 03/28/2018 5:50 PM LIGHT CLEANER Temperature 36.7 ??C (98 ??F) 03/28/2018 2:19 PM LIGHT CLEANER Respiratory Rate 18 03/28/2018 5:50 PM LIGHT CLEANER Oxygen Saturation 98% 03/28/2018 5:50 PM LIGHT CLEANER Inhaled Oxygen Concentration - - Weight 136.1 kg (300 lb) 03/28/2018 2:19 PM LIGHT CLEANER Height 170.2 cm (5' 7 ) 03/28/2018 2:19 PM LIGHT CLEANER Body Mass Index 46.99 03/28/2018 2:19 PM LIGHT CLEANER documented in this encounter Discharge Instructions * Discharge Instructions* Martha Donnelly MD - 03/28/2018 5:25 PM LIGHT CLEANER Please take the medication as prescribed. Please [...] to make sure your symptoms are improving. T CLEANER * Attachments The following attachments cannot be sent through Care Everywhere. * Chronic Pain Discharge Instructions (Montenegrin) documented in this encounter Medications at Time [...] Hernandez PA-C - 03/28/2018 3:03 PM CST [place], [place] EMERGENCY DEPARTMENT ENCOUNTER Medical Screening Examination [...] Martha Donnelly MD at 03/28/2018 7:47 PM LIGHT CLEANER T CLEANER T CLEANER * Martha Donnelly MD - 03/28/2018 2:28 PM CST Chief Complaint Chief Complaint Patient presents with ??? Chest Pain History of Present Illness History provided by: Patient police chief used: No Tiarra Han is a 47-year-old female who presents to the ED for an evaluation of chest pain starting earlier today. States the chest pain radiates to her left arm. She also complains of SOB, body aches, nausea, vomiting, cough, and diaphoresis. Reports being seen at [place] on Saturday where she was diagnosed with [...] hospital encounter of 03/28/18 ECG 12-Lead Narrative [address] Test Date: 2018-03-28 Pat Name: TIARRA HAN Department: 41 Room: Gender: Female Shipper And Receiving: ESTHER : 1970 Requested By: MARTHA DONNELLY Order Number: [id number] Reading MD: Measurements Intervals [place] Rate: 71 P: 26 NE: 171 QRS: -5 QRSD: 93 T: 1 [...] XR CHEST PORTABLE Final Result by User, [email or web address] (03/28 1479) Examination: Chest x-ray 1 view Exam date/time: [...] history of Anxiety, DVT (deep venous thrombosis) ([facility]), Hypertension, Insomnia, and Lymph edema. The patient [...] discharge home with a short course of [place] for her chronic right lower leg pain, [...] by the physician. Martha Donnelly MD 03/28/18 8214 T CLEANER * Norberto Alvarez RN - 03/28/2018 2:13 PM CST Pain across chest radiates into left arm since last PM. Painful to cough, breath, move. States has a bronchitis. Denies shortness of breath. NORBERTO ALVAREZ, RN T CLEANER documented in this encounter Plan of Treatment Not on file documented as of this encounter Procedures Procedure Name Priority Date/Time Associated Diagnosis Comments TROPONIN, QUANT STAT 03/28/2018 4:03 PM LIGHT CLEANER XR CHEST PORTABLE STAT 03/28/2018 2:4 1 PM LIGHT CLEANER PROTHROMBIN TIME, VENOUS STAT 03/28/2018 2:29 PM LIGHT CLEANER PATHOLOGY SLIDE CONSULT Routine 03/28/2018 2:22 PM LIGHT CLEANER COMPREHENSIVE METABOLIC PANEL STAT 03/28/2018 2:22 PM LIGHT CLEANER CBC W/DIFF AUTOMATED Routine 03/28/2018 2:22 PM LIGHT CLEANER TROPONIN, QUANT STAT 03/28/2018 2:22 PM LIGHT CLEANER ECG 12-LEAD STAT 03/28/2018 2:09 PM LIGHT CLEANER documented in this encounter Results * TROPONIN, QUANT (03/28/2018 4:03 PM LIGHT CLEANER) TROPONIN I <0.015 <0.045 ng/mL. 03/28/2018 4:40 PM LIGHT CLEANER [facility] Comment: HIGH DOSES OF BIOTIN MAY INTERFERE WITH THIS TEST RESULT. CORRELATION TO CLINICAL HISTORY AND PRESENTATION RECOMMENDED. 03/28/2018 4:03 PM LIGHT CLEANER us Martha Donnelly MD LABORATORY Final Result [facility] [address] [place] [address], [place] [phone] * XR CHEST PORTABLE (03/28/2018 2:41 PM LIGHT CLEANER) Anatomical Region Laterality Modality Chest Radiographic Alexsandra ging 03/28/2018 2:43 PM LIGHT CLEANER Impressions 03/28/2018 2:43 PM LIGHT CLEANER =====IMPRESSION:===== No acute infiltrate. Narrative 03/28/2018 2:43 PM LIGHT CLEANER Examination: Chest x-ray 1 view Exam date/time: [...] * (ABNORMAL) PROTIME/INR, VENOUS (03/28/2018 2:29 PM LIGHT CLEANER) PROTIME 20.2(H) 9.6 - 12.2 SEC 03/28/2018 3:21 PM LIGHT CLEANER [facility] INR 1.8 03/28/2018 3:21 PM LIGHT CLEANER [facility] Comment: Recommended INR Therapeutic Goals: ??2.0-3.0 Routine Therapy ??2.5-3.5 Mechanical Prosthetic Valves (High Risk) ??3.0-4.0 Acute ME (to prevent Systemic Embolism) The INR is used only for patients on stable oral anticoagulant therapy. It makes no significant contribution to the diagnosis or treatment of patients whose Protime is prolonged for other reasons. 03/28/2018 2:29 PM LIGHT CLEANER us Martha Donnelly MD LABORATORY Final Result Performing Organization Address [facility] Co de Phone Number [address] [address], [place] [phone] * PATHOLOGY SLIDE CONSULT (03/28/2018 2:22 PM LIGHT CLEANER) CBC PATHOLOGIST COMMENT PATHOLOGIST REVIEW ADDED TO REPORT 03/31/2018 7:41 PM LIGHT CLEANER [facility] Comment: [id number]. HYPOCHROMIC MICROCYTIC ANEMIA. ??CHANGES MAY BE SEEN IN IRON DEFICIENCY AND/OR THALASSEMIA. THROMBOCYTOSIS. ??FAVOR REACTIVE CONDITION. AGREE WITH AUTOMATED WBC DIFFERENTIAL. REVIEWED BY HIGINIO MARSHALL M.D., PATHOLOGIST. 03/28/2018 2:22 PM LIGHT CLEANER us Martha Donnelly MD PATHOLOGY/CYTOLOGY ORDERABLES Fi nal Result Performing Organization Address [facility]/ZIP Co de Phone Number [facility] [address] [place] [address], [place] [phone] * TROPONIN, QUANT (03/28/2018 2:22 PM LIGHT CLEANER) TROPONIN I <0.015 <0.045 ng/mL. 03/28/2018 2:57 PM LIGHT CLEANER [facility] Comment: HIGH DOSES OF BIOTIN MAY INTERFERE WITH THIS TEST RESULT. CORRELATION TO CLINICAL HISTORY AND PRESENTATION RECOMMENDED. 03/28/2018 2:22 PM LIGHT CLEANER Martha Donnelly MD LABORATORY Final Result [facility] [address] [place] [address], * (ABNORMAL) COMPREHENSIVE METABOLIC PANEL (03/28/2018 2:22 PM LIGHT CLEANER) GLUCOSE 85 70 - 99 MG/DL 03/28/2018 2:57 PM LIGHT CLEANER [facility] BUN 11 7 - 18 MG/DL 03/28/2018 2:57 PM [facility] CREATININE S/P/B 0.94 0.55 - 1.02 MG/DL 03/28/2018 2:57 PM LIGHT CLEANER [facility] SODIUM S/P/B 140 136 - 145 MMOL/L 03/28/2018 2:57 PM LIGHT CLEANER [facility] POTASSIUM S/P/B 3.9 3.5 - 5.1 MMOL/L 03/28/2018 2:57 PM LIGHT CLEANER [facility] CHLORIDE S/P/B 109(H) 100 - 108 MMOL/L 03/28/2018 2:57 PM LIGHT CLEANER [facility] CO2 23.8 21 - 32 MMOL/L 03/28/2018 2:57 PM LIGHT CLEANER [facility] CALCIUM S/P/B 8.6 8.5 - 10.1 MG/DL 03/28/2018 2:57 PM LIGHT CLEANER [facility] BILIRUBIN TOTAL S/P/B 0.3 0.2 - 1.2 MG/DL 03/28/2018 2:57 PM LIGHT CLEANER [facility] TOTAL PROTEIN S/P/B 8.5(H) 6.4 - 8.2 G/DL 03/28/2018 2:57 PM [facility] ALBUMIN S/P/B 3.5 3.4 - 5.0 G/DL 03/28/2018 2:57 PM [facility] AST 29 15 - 37 U/L 03/28/2018 2:57 PM [facility] ALT 21 14 - 55 U/L 03/28/2018 2:57 PM [facility] ALKALINE PHOSPHATASE S/P/B 118 50 - 136 U/L 03/28/2018 2:57 PM [facility] ANION GAP 11.1 8 - 20 MMOL/L 03/28/2018 2:57 PM [facility] BUN CREATININE RATIO 11.7 6 - 26 03/28/2018 2:57 PM [facility] A/G RATIO 0.7(L) 1.0 - 2.0 RATIO 03/28/2018 2:57 PM [facility] EGFR NON-AFR. AMER. 72(L) >90 ML/MIN/1.7 3 M2 03/28/2018 2:57 PM [facility] EGFR AFR. AMER. 83(L) >90 ML/MIN/1.7 3 M2 03/28/2018 2:57 PM [facility] Comment: NOTE: eGFR is not calculated for patients <18 years of age. This is an estimated GFR (CKD EPI) and should not be used for calculating drug doses. 03/28/2018 2:22 PM LIGHT CLEANER us Martha Donnelly MD LABORATORY Final Result [facility] [address] [place] [address], [place] [phone] * (ABNORMAL) CBC W/DIFF AUTOMATED (03/28/2018 2:22 PM LIGHT CLEANER) [facility] Signature WBC 8.0 4.5 - 11.0 x10'3/uL 03/28/2018 3:01 PM [facility] RBC 4.18(L) 4.20 - 5.40 x10'6/uL 03/28/2018 3:01 PM [facility] HGB 8.7(L) 12.0 - 16.0 G/DL 03/28/2018 3:01 PM [facility] HCT 31.3(L) 38.0 - 48.0 % 03/28/2018 3:01 PM [facility] MCV 74.9(L) 80.0 - 94.0 FL 03/28/2018 3:01 PM [facility] MCH 20.8(L) 27.0 - 31.0 PG 03/28/2018 3:01 PM [facility] MCHC 27.8(L) 32.0 - 36.0 G/DL 03/28/2018 3:01 PM [facility] RDW 19.0(H) 11.5 - 14.5 % 03/28/2018 3:01 PM [facility] PLT 371 130 - 400 x10'3/uL 03/28/2018 3:01 PM [facility] MPV 9.8 9.3 - 12.2 FL 03/28/2018 3:01 PM [facility] DIFFERENTIAL TYPE MANUAL DIFFERENTIAL 03/28/2018 3:15 PM [facility] SEG NEUTROPHILS 62 % 8 3:15 PM [facility] LYMPHOCYTES 26 % 03/28/2018 3:15 PM [facility] MONOCYTES 7 % 03/28/2018 3:15 PM [facility] EOSINOPHILS 5 % 03/28/2018 3:15 PM [facility] ABS. NEUTROPHILS CALCULATED 4.96 1.80 - 7.70 x10'3/uL 03/28/2018 3:15 PM [facility] ABS.LYMPHOCYTES CALCULATED 2.08 1.00 - 4.80 x10'3/uL 03/28/2018 3:15 PM [facility] ABS. MONOCYTES CALCULATED 0.56 0.24 - 0.86 x10'3/uL 03/28/2018 3:15 PM [facility] ABS. EOSINOPHIL CALCULATED 0.40(H) 0.04 - 0.36 x10'3/uL 03/28/2018 3:15 PM [facility] RBC MORPHOLOGY SLIDE REVIEWED 2017 3:15 PM [facility] ANISO 1+ 03/28/2018 3:15 PM [facility] POIKLO 1+ 03/28/2018 3:15 PM [facility] HYPOCHROMASIA 2+ 03/28/2018 3:15 PM [facility] POLY 1+ 03/28/2018 3:15 PM [facility] OVALOCYTES 1+ 03/28/2018 3:15 PM [facility] LARGE PLATELET 1+ 03/28/2018 3:15 PM [facility] PLT EST. ADEQUATE 03/28/2018 3:15 PM [facility] PATHOLOGIST COMMENT PATHOLOGIST REVIEW TO FOLLOW. 03/28/2018 3:15 PM [facility] 03/28/2018 2:22 PM LIGHT CLEANER us Martha Donnelly MD LABORATORY Final Result [facility] [address] [place] [id number], * ECG 12-Lead (03/28/2018 2:09 PM LIGHT CLEANER) 03/28/2018 2:09 PM LIGHT CLEANER Narrative [facility] - 03/28/2018 10:58 PM LIGHT CLEANER ?[facility] ? [address] ? Test Date: ?2018-03-28 Pat Name: ? TIARRA HNA ?Department: ?? 41 ? Room: ? EXAM10 Gender: ? Female ? Shipper And Receiving: ?? RGRG : ?1970 ? Requested By: MARTHA DONNELLY Order Number: [id number] ? Reading MD: ?? Venancio Grant ? Measurements Intervals ?[place] ? Rate: ? 71 ? P: ?26 NE: ? 171 ?QRS: ?-5 QRSD: ? 93 ? T: ?1 QT: ? 397 ? QTc: ?431 ? Interpretive Statements SINUS RHYTHM Compared to ECG 03/10/2018 16:50:41 T-wave abnormality no longer present No ischemic changes Martha Donnelly M.D. CRITICAL ALERT ISSUED ON 03-28-2018 14:13:06 T CLEANER Procedure Note Venancio Grant MD - 03/28/[address] Test Date: 2018-03-28 Pat Name: TIARRA HAN Department: 41 Room: [facility] Gender: Female Shipper And Receiving: RGRG : 1970 Requested By: MARTHA DONNELLY Order Number: [id number] Reading MD: Venancio Grant Measurements Intervals [place] Rate: 71 P: 26 NE: 171 QRS: -5 QRSD: 93 T: 1 QT: 397 QTc: 431 Interpretive Statements SINUS RHYTHM Compared to ECG 03/10/2018 16:50:41 T-wave abnormality no longer present No ischemic changes Martha Donnelly M.D. CRITICAL ALERT ISSUED ON 03-28-2018 14:13:06 T CLEANER us Martha Donnelly MD ECG ORDERABLES Final Result [facility] [place] documented in this encounter Visit Diagnoses [...] prior to arrival Given 03/28/2018 3:32 PM LIGHT CLEANER 324 mg hydrocodone-acetaminophen (NORCO) 5-325 MG tablet 2 tablet 2 tablet, Oral, Once, 1 dose, On Sat03/28/18 at 1545, Maximum dose of acetaminophen is 4000 mg from all sources in 24 hours. Given 03/28/2018 3:57 PM LIGHT CLEANER 2 tablets documented in this encounter Active and Recently Administered Medications Times are shown in LIGHT CLEANER. Scheduled Medication Order 03/26/2018 03/27/2018 03/28/2018 aspirin [...] GEOVANY) documented in this encounter Care Teams Corporate Paralegal Relationship Specialty Start Date End Date None, Provider, PCP - General 01/06/18 documented as of this encounter
--- OUTSIDE RECORDS SUMMARY | 2024-03-24 19:43 | XMS_ITS | Encounter Summary ---
Author Organization [facility] Address [address] [place] [address] Care Team Providers Care Card Services Specialist Name Role Phone Provider, Abstract Primary Care Provider Unavail able Encounter Details Date Type Department Care Team (Late st Contact Info) Description 11/28/2023 External Device Data STL ABSTRACTION Provider, Abstract [...] on filedocumented in this encounter Care Teams Card Services Specialist Relationship Specialty Start Date End Date Provider, Abstract NO ADDRESS ON FILE PCP - General 08/20/19 documented as of this encounter
--- OUTSIDE RECORDS SUMMARY | 2024-03-24 19:43 | XMS_ITS | Encounter Summary ---
Author Organization [facility] Address [address] [place]: Epic Prelude ADT [place] [address] Care Team Providers Care Creative Designer Name Role Phone Provider, Abstract Primary Care Provider Unavail able Encounter Details Date Type Department Care Team (Latest Contact Info) Description 09/22/2019 Travel Social History Tobacco Use Types Packs/Day [...] on filedocumented in this encounter Care Teams Creative Designer Relationship Specialty Start Date End Date Provider, Abstract NO ADDRESS ON FILE PCP - General 08/20/19 documented as of this encounter
--- OUTSIDE RECORDS SUMMARY | 2024-03-24 19:43 | XMS_ITS | Encounter Summary ---
Author Organization [facility] Address [address] [place] [address] Care Team Providers Care Cad Engineer Name Role Phone Provider, Abstract Primary Care Provider Unavail able Encounter Details Date Type Department Care Team (Late st Contact Info) Description 12/03/2023 External Device Data STL ABSTRACTION Provider, Abstract [...] on filedocumented in this encounter Care Teams Cad Engineer Relationship Specialty Start Date End Date Provider, Abstract NO ADDRESS ON FILE PCP - General 08/20/19 documented as of this encounter
--- OUTSIDE RECORDS SUMMARY | 2024-03-24 19:43 | XMS_ITS | Encounter Summary ---
Author Organization [facility] Address [address] [place] [address] Care Team Providers Care Multimedia Manager Name Role Phone Provider, Abstract Primary Care Provider Unavail able Encounter Details Date Type Department Care Team (Late st Contact Info) Description 12/24/2023 External Device Data STL ABSTRACTION Provider, [...] on filedocumented in this encounter Care Teams Multimedia Manager Relationship Specialty Start Date End Date Provider, Abstract NO ADDRESS ON FILE PCP - General 08/20/19 documented as of this encounter
--- OUTSIDE RECORDS SUMMARY | 2024-03-24 19:43 | XMS_ITS | Encounter Summary ---
Author Organization [facility] Address [address] [place] [address] Care Team Providers Care Tooling Manager Name Role Phone Provider, Abstract Primary Care Provider Unavail able Encounter Details Date Type Department Care Team (Late st Contact Info) Description 11/14/2023 Orders Only [facility] Oncology and Hematology - [place] [address] [facility] [address] [place] [address] Hardik Mane MD [address] [facility] [address] [place] [address] Social History Tobacco Use Types [...] Procedure Name Priority Date/Time Associated Diagnosis Comments BASIC METABOLIC PANEL Routine 11/13/2023 2:42 PM CDT IRON LEVEL Routine 11/13/2023 2:34 PM CDT BASIC METABOLIC PANEL Routine 11/13/2023 1:29 PM CDT CBC WITH DIFFERENTIAL Routine 11/13/2023 7:55 AM CDT documented in this encounter Results * BASIC METABOLIC PANEL (11/13/2023 2:42 PM CDT) Blood Hardik Mane MD CHEMISTRY ORDERABLES * IRON LEVEL (11/13/2023 2:34 PM CDT) Blood Hardik Mane MD CHEMISTRY ORDERABLES * BASIC METABOLIC PANEL (11/13/2023 1:29 PM CDT) Blood Hardik Mane MD CHEMISTRY ORDERABLES * CBC WITH DIFFERENTIAL (11/13/2023 7:55 AM CDT) Blood Hardik Mane MD HEMATOLOGY ORDERABLE S documented in this encounter Visit Diagnoses Not on filedocumented in this encounter Care Teams Tooling Manager Relationship Specialty Start Date End Date Provider, Abstract NO ADDRESS ON FILE PCP - General 08/20/19 documented as of this encounter
--- OUTSIDE RECORDS SUMMARY | 2024-03-24 19:43 | XMS_ITS | Encounter Summary ---
Author Organization [facility] Address [address] [place] [address] Care Team Providers Care Sample Collector Name Role Phone Provider, Abstract Primary Care [...] on filedocumented in this encounter Care Teams Sample Collector Relationship Specialty Start Date End Date Provider, Abstract NO ADDRESS ON FILE PCP - General 08/20/19 documented as of this encounter
--- OUTSIDE RECORDS SUMMARY | 2024-03-24 19:43 | XMS_ITS | Encounter Summary ---
Author Organization [facility] Address [facility] [place] [address] [place] [address] Care Team Providers Care Shingle Packer Name Role Phone None, Provider MD Primary Care Provider Unavaila ble Reason for Visit * Reason Comments Leg Pain ARASELI LEG PAIN/SWELLIN G, NO INJURY, PT HAS H/O LYMPH EDEMA RECENTLY MOVED HERE FROM [place] Problem (Skin) PT NOTED WITH BLISTE R AREA UNDER RT NARE STARTED THIS AM Encounter Details Date Type Department Care Team (Late st Contact Info) Description 01/06/2018 11:13 AM CDT - 01/06/2018 1:52 PM CDT Hospital Encounter [facility] [address] [facility] [place] [address] Brittney Aleman PALoren [address] [place] [address] Leg Pain (ARASELI LEG PAIN/SWELLING, NO INJURY, PT HAS H/O LYMPH EDEMA RECENTLY MOVED HERE FROM [place]); Problem (Skin) (PT NOTED WITH BLISTER AREA [...] Care Everywhere. * CHRONIC PAIN DISCHARGE INSTRUCTIONS (KYRGYZ) documented in this encounter Medications at Time [...] TO LEAVE AT THIS TIME, HAS TO HEATER ENGINEER HELPER DAUGHTER. * Brittney Aleman PA-C - 01/06/2018 1:16 PM CDT Emergency Department Note Chief Complaint Chief Complaint Patient presents with ??? Leg Pain ARASELI LEG PAIN/SWELLING, NO INJURY, PT HAS H/O LYMPH EDEMA RECENTLY MOVED HERE FROM [place] ??? Problem (Skin) PT NOTED WITH BLISTER [...] 15 tablet, Refills: 0 Class: [facility] [id number] [facility] [address] (Ph #: [phone]) Follow-Up: Jason Terry MD [address] [place] [address] [place] [id number] Disposition: Discharge Brittney Aleman PA-C 01/06/2018 Brittney Aleman PA-C 01/06/18 1351 Cosigned by Geo Maxwell MD at 01/06/2018 4:27 PM CDT * Ansley Charles RN - 01/06/2018 12:12 PM CDT AMB TO UC, C/O SWELLING AND LYMPHEDEMA TO BILAT LOWER LEGS, RT>LT, ADMITS FREQ BLOOD CLOTS TO LEGS. RECENT MOVE FROM [place]. STATES USUALLY GETS PAIN MEDICINE FOR THIS. LAST GOT VICODIN FROM [facility] 2 DAYS AGO. RECEIVED MORPHINE WHILE IN THE ED. STATES HER LEGS HAVE BEEN SWOLLEN LIKE THIS FOR YEARS. PPS 12/16, STATES VICODIN NOT HELPING. documented in this encounter Plan of Treatment Not on file documented as of this encounter Visit Diagnoses Diagnosis Medication refill- Primary Issue of repeat prescriptions documented in this encounter Care Teams Shingle Packer Relationship Specialty Start Date End Date None, Provider, PCP - General 01/06/18 documented as of this encounter
--- OUTSIDE RECORDS SUMMARY | 2024-03-24 19:43 | XMS_ITS | Encounter Summary ---
Author Organization [facility] Address [address] [place] [address] Care Team Providers Care Remelter Name Role Phone Provider, Abstract Primary Care [...] on filedocumented in this encounter Care Teams Remelter Relationship Specialty Start Date End Date Provider, Abstract NO ADDRESS ON FILE PCP - General 08/20/19 documented as of this encounter
--- OUTSIDE RECORDS SUMMARY | 2024-03-24 19:43 | XMS_ITS | Encounter Summary ---
Author Organization [facility] [employer] [facility] Address [address] [place] [address] Care Team Providers Care Clerical Secretary Name Role Phone Provider, Abstract Primary Care Provider Unavail able Reason for Visit * Reason Onset Date Comments Medication Refill 09/23/2019 Encounter Details Date Type Department Care Team (Late st Contact Info) Description 09/23/2019 Refill [facility] Oncology and Hematology - [place] [address] [facility] [address] [place] [address] Hardik Mane MD [address] [facility] [address] [place] [address] Cellulitis, unspecified cellulitis site (Primary Dx) Social History Tobacco Use Types [...] as of this encounter Visit Diagnoses Diagnosis Cellulitis, unspecified cellulitis site- Primary documented in this encounter Care Teams Clerical Secretary Relationship Specialty Start Date End Date Provider, Abstract NO ADDRESS ON FILE PCP - General 08/20/19 documented as of this encounter
--- OUTSIDE RECORDS SUMMARY | 2024-03-24 19:43 | XMS_ITS | Encounter Summary ---
Author Organization [facility] Address [address] [place] [address]. [place] [address] [place] [address] Care Team Providers Care Surgical Endoscopist Name Role Phone None, Provider Primary Care Provider Unavaila ble Reason for Visit * Reason Comments Chest Pain Cough Encounter Details Date Type Department Care Team (Late st Contact Info) Description 03/10/2018 4:39 PM CASE ASSEMBLER - 03/10/2018 9:36 PM CASE ASSEMBLER Emergency [facility] Emergency Room [address] [place], [place] [id number] Seema Artis MD [address] [place] [address] Chest Pain; Cough Discharge Disposition: Home [...] Comments Blood Pressure 181/107 03/10/2018 9:24 PM CASE ASSEMBLER Pulse 71 03/10/2018 9:24 PM CASE ASSEMBLER Temperature 36.9 ??C (98.5 ??F) 03/10/2018 4:43 PM CS T Respiratory Rate 18 03/10/2018 9:24 PM CASE ASSEMBLER Oxygen Saturation 100% 03/10/2018 9:24 PM CASE ASSEMBLER Inhaled Oxygen Concentration - - Weight 142.9 kg (315 lb) 03/10/2018 4:43 PM CASE ASSEMBLER Height 170.2 cm (5' 7 ) 03/10/2018 4:43 PM CASE ASSEMBLER Body Mass Index 49.34 03/10/2018 4:43 PM CASE ASSEMBLER documented in this encounter Discharge Instructions * Attachments The following attachments cannot be sent through Care Everywhere. * ACUTE BRONCHITIS DISCHARGE INSTRUCTIONS, ADULT (CROATIAN) documented in this encounter Medications at Time [...] patent. Pt requested medications be sent to [facility] in [place] if possible. ASSEMBLER * Glory Martinez - 03/10/2018 9:30 PM CST PT REFUSING 2ND EKG SAYS SHE IS BEING DISCHARGED. RN NOTIFIED ASSEMBLER * Seema Artis MD - 03/10/2018 9:27 [...] use of tobacco. History provided by: Patient clinical informatics spec used: No Medical History ALLERGIES: No Known [...] PTX, no effusion Final Result by User, [id number] (03/10 1710) Examination: Chest x-ray 2 view [...] by the physician. Seema Artis MD 03/10/18 3030 ASSEMBLER * Dave Driscoll RN - 03/10/2018 9:24 PM CST Pt reports pain in chest only with palpation and deep breathing. Denies any pain in chest when ambulating or at rest. ASSEMBLER * Dave Driscoll RN - 03/10/2018 9:23 PM CST Pt refuses further blood draws at this time. ASSEMBLER * Dave Driscoll RN - 03/10/2018 9:20 PM CST Went to room to perform nursing assessment. Pt states she called a cab while in the waiting room and it will be here in 20 minutes. Pt states she is leaving at that time. Physician notified. ASSEMBLER * Candace Solomon - 03/10/2018 9:07 PM CST Attempted to call pt back for 2nd ekg and trop, but pt stated she was ready to leave and just waiting on her ride. This tech let point RN know. ASSEMBLER * Kaiser Moore RN - 03/10/2018 4:56 PM CST Pt reports having pain to her chest and dry cough since last pm. Also c/o SOB, denies known fever, n/v/d, or other symptoms at this time. ASSEMBLER * DENNISE Durand - 03/10/2018 4:49 PM CST [place], [place] EMERGENCY DEPARTMENT ENCOUNTER Medical Screening Examination [...] Joseph Pederson DO at 03/10/2018 8:31 PM CASE ASSEMBLER ASSEMBLER ASSEMBLER documented in this encounter Plan of Treatment Not on file documented as of this encounter Procedures Procedure Name Priority Date/Time Associated Diagnosis Comments XR CHEST PA+LAT STAT 03/10/2018 5:07 PM CASE ASSEMBLER PATHOLOGY SLIDE CONSULT STAT 03/10/2018 4:51 PM CASE ASSEMBLER COMPREHENSIVE METABOLIC PANEL STAT 03/10/2018 4:51 PM CASE ASSEMBLER CBC W/DIFF AUTOMATED STAT 03/10/2018 4:51 PM CASE ASSEMBLER TROPONIN, QUANT STAT 03/10/2018 4:51 PM CASE ASSEMBLER ECG 12-LEAD STAT 03/10/2018 4:50 PM CASE ASSEMBLER documented in this encounter Results * XR CHEST PA+LAT (03/10/2018 5:07 PM CASE ASSEMBLER) Anatomical Region Laterality Modality Chest Radiographic Alexsandra ging 03/10/2018 5:08 PM CASE ASSEMBLER Impressions 03/10/2018 5:09 PM CASE ASSEMBLER =====IMPRESSION:===== Stable reduced lung volumes otherwise no acute/active cardiopulmonary process identified. Narrative 03/10/2018 5:09 PM CASE ASSEMBLER Examination: Chest x-ray 2 view Exam date/time: [...] * PATHOLOGY SLIDE CONSULT (03/10/2018 4:51 PM CASE ASSEMBLER) CBC PATHOLOGIST COMMENT PATHOLOGIST REVIEW ADDED TO REPORT 03/11/2018 7:45 PM CASE ASSEMBLER [facility] Comment: 03/11/2018. MODERATE MICROCYTIC ANEMIA. SOME HYPOCHROMIC RBC'S SUGGESTIVE OF IRON DEFICIENCY. ??SUGGEST IRON STUDIES. REVIEWED BY KENZIE ESPINOSA M.D., PATHOLOGIST. 03/10/2018 4:51 PM CASE ASSEMBLER us Prabhu BOWDEN PATHOLOGY/CYTOLOGY ORDERABL ES Final Result Performing Organization Address [facility] de Phone Number [facility] [address] [place] [address], [place] [phone] * TROPONIN, QUANT (03/10/2018 4:51 PM CASE ASSEMBLER) TROPONIN I <0.015 <0.045 ng/mL. 03/10/2018 5:25 PM CASE ASSEMBLER [facility] Comment: HIGH DOSES OF BIOTIN MAY INTERFERE WITH THIS TEST RESULT. CORRELATION TO CLINICAL HISTORY AND PRESENTATION RECOMMENDED. 03/10/2018 4:51 PM CASE ASSEMBLER us Prabhu BOWDEN LABORATORY Final Resul t [facility] [address] [place] [address], * (ABNORMAL) COMPREHENSIVE METABOLIC PANEL (03/10/2018 4:51 PM CASE ASSEMBLER) [facility] GLUCOSE 73 70 - 99 MG/DL 03/10/2018 5:25 PM CASE ASSEMBLER [facility] BUN 13 7 - 18 MG/DL 03/10/2018 5:25 PM [facility] CREATININE S/P/B 0.86 0.55 - 1.02 MG/DL 03/10/2018 5:25 PM [facility] SODIUM S/P/B 144 136 - 145 MMOL/L 03/10/2018 5:25 PM [facility] POTASSIUM S/P/B 3.9 3.5 - 5.1 MMOL/L 03/10/2018 5:25 PM [facility] CHLORIDE S/P/B 112(H) 100 - 108 MMOL/L 03/10/2018 5:25 PM [facility] CO2 26.7 21 - 32 MMOL/L 03/10/2018 5:25 PM [facility] CALCIUM S/P/B 8.6 8.5 - 10.1 MG/DL 03/10/2018 5:25 PM [facility] BILIRUBIN TOTAL S/P/B 0.4 0.2 - 1.2 MG/DL 03/10/2018 5:25 PM [facility] TOTAL PROTEIN S/P/B 7.5 6.4 - 8.2 G/DL 03/10/2018 5:25 PM [facility] ALBUMIN S/P/B 3.0(L) 3.4 - 5.0 G/DL 03/10/2018 5:25 PM [facility] AST 19 15 - 37 U/L 03/10/2018 5:25 PM [facility] ALT 22 14 - 55 U/L 03/10/2018 5:25 PM [facility] ALKALINE PHOSPHATASE S/P/B 109 50 - 136 U/L 03/10/2018 5:25 PM [facility] ANION GAP 9.2 8 - 20 MMOL/L 03/10/2018 5:25 PM [facility] BUN CREATININE RATIO 15.1 6 - 26 03/10/2018 5:25 PM [facility] A/G RATIO 0.7(L) 1.0 - 2.0 RATIO 03/10/2018 5:25 PM [facility] EGFR NON-AFR. AMER. 80(L) >90 ML/MIN/1.7 3 M2 03/10/2018 5:25 PM [facility] EGFR AFR. AMER. >90 >90 ML/MIN/1.7 3 M2 03/10/2018 5:25 PM [facility] Comment: NOTE: eGFR is not calculated for patients <18 years of age. This is an estimated GFR (CKD EPI) and should not be used for calculating drug doses. 03/10/2018 4:51 PM CASE ASSEMBLER us Prabhu BOWDEN [facility] Final Resul t [facility] [address] [place] [address], [place] [phone] * (ABNORMAL) CBC W/DIFF AUTOMATED (03/10/2018 4:51 PM CASE ASSEMBLER) WBC 9.2 4.5 - 11.0 x10'3/uL 03/10/2018 5:27 PM CASE ASSEMBLER [facility] RBC 3.99(L) 4.20 - 5.40 x10'6/uL 03/10/2018 5:27 PM [facility] HGB 8.5(L) 12.0 - 16.0 G/DL 03/10/2018 5:27 PM [facility] HCT 29.7(L) 38.0 - 48.0 % 03/10/2018 5:27 PM [facility] MCV 74.4(L) 81.0 - 99.0 FL 03/10/2018 5:27 PM [facility] MCH 21.3(L) 27.0 - 31.0 PG 03/10/2018 5:27 PM [facility] MCHC 28.6(L) 32.0 - 36.0 G/DL 03/10/2018 5:27 PM [facility] RDW 18.7(H) 11.5 - 14.5 % 03/10/2018 5:27 PM [facility] PLT 273 130 - 400 x10'3/uL 03/10/2018 5:27 PM [facility] MPV 9.6 9.3 - 12.2 FL 03/10/2018 5:27 PM [facility] DIFFERENTIAL TYPE MANUAL DIFFERENTIAL 03/10/2018 6:41 PM [facility] SEG NEUTROPHILS 70 % 8 6:41 PM [facility] LYMPHOCYTES 23 % 03/10/2018 6:41 PM [facility] MONOCYTES 3 % 03/10/2018 6:41 PM [facility] EOSINOPHILS 4 % 03/10/2018 6:41 PM [facility] ABS. NEUTROPHILS CALCULATED 6.44 1.80 - 7.70 x10'3/uL 03/10/2018 6:41 PM [facility] ABS.LYMPHOCYTES CALCULATED 2.12 1.00 - 4.80 x10'3/uL 03/10/2018 6:41 PM [facility] ABS. MONOCYTES CALCULATED 0.28 0.24 - 0.86 x10'3/uL 03/10/2018 6:41 PM [facility] ABS. EOSINOPHIL CALCULATED 0.37(H) 0.04 - 0.36 x10'3/uL 03/10/2018 6:41 PM [facility] RBC MORPHOLOGY SLIDE REVIEWED 2017 6:41 PM [facility] ANISO 1+ 03/10/2018 6:41 PM [facility] POIKLO 1+ 03/10/2018 6:41 PM [facility] HYPOCHROMASIA 1+ 03/10/2018 6:41 PM [facility] MICRO 1+ 03/10/2018 6:41 PM [facility] MACRO 1+ 03/10/2018 6:41 PM [facility] PLT EST. ADEQUATE 03/10/2018 6:41 PM [facility] PATHOLOGIST COMMENT PATHOLOGIST REVIEW TO FOLLOW. 03/10/2018 6:41 PM [facility] 03/10/2018 4:51 PM CASE ASSEMBLER us Prabhu [facility] Final Resul t [facility] [address] [place] [address], [place] [phone] * ECG 12 lead (03/10/2018 4:50 PM CASE ASSEMBLER) 03/10/2018 4:50 PM CASE ASSEMBLER Narrative [facility] - 03/11/2018 1:35 PM CASE ASSEMBLER ?[facility] ? [address], [place] ? Test Date: ?2018-03-10 Pat Name: ? TIARRA ADDISON ?Department: ?? 41 ? Room: ? EXAM07 Gender: ? Female ? Horizontal Boring Mill Operator: ?? DDB : ?[id number] ? Requested By: PRABHU CONTE Order Number: [id number] ? Reading MD: ?? Shiyam Satwani ? Measurements Intervals ?[place] ? Rate: ? 74 ? P: ?25 VT: ? 190 ?QRS: ?-10 QRSD: ? 83 ? T: ?-6 QT: ? 393 ? QTc: ?438 ? Interpretive Statements SINUS RHYTHM LOW QRS VOLTAGE IN PRECORDIAL LEADS Nonspecific T wave abnormality Compared to ECG 01/24/2018 02:44:08 Ventricular premature complex(es) no longer present ASSEMBLER Procedure Note Chelsea Pablo MD - 03/11/[address] Test Date: 2018-03-10 Pat Name: TIARRA ADDISON Department: 41 Room: [facility] Gender: Female Horizontal Boring Mill Operator: SON : [id number] Requested By: PRABHU CONTE Order Number: [id number] Yesica MD: Chelsea Pablo Measurements Intervals [place] Rate: 74 P: 25 VT: 190 QRS: -10 QRSD: 83 T: -6 QT: 393 QTc: 438 Interpretive Statements SINUS RHYTHM LOW QRS VOLTAGE IN PRECORDIAL LEADS Nonspecific T wave abnormality Compared to ECG 01/24/2018 02:44:08 Ventricular premature complex(es) no longer present ASSEMBLER us Prabhu BOWDEN ECG ORDERABLES Final Resul t [facility] RAD documented in this encounter Visit Diagnoses [...] Sat03/10/18 at 213 Given 03/10/2018 9:32 PM CASE ASSEMBLER 600 mg traMADol (ULTRAM) tablet 50 mg 50 mg, Oral, Once, 1 dose, On Sat03/10/18 at 213 Given 03/10/2018 9:31 PM CASE ASSEMBLER 50 mg documented in this encounter Active and Recently Administered Medications Times are shown in CASE ASSEMBLER. Scheduled Medication Order 03/08/2018 03/09/2018 03/10/2018 ibuprofen (MOTRIN) tablet 600 mg (COMPLETED) 600 mg, Oral, Once, 1 dose, On Sat03/10/18 at 2130 2132 (Given - Provid er: Dave Driscoll RN) traMADol (ULTRAM) tablet 50 mg (COMPLETED) 50 mg, Oral, Once, 1 dose, On Sat03/10/18 at 2130 2131 (Given - Provid er: Dave Driscoll RN) documented in this encounter Care Teams Surgical Endoscopist Relationship Specialty Start Date End Date None, Provider, PCP - General 01/06/18 documented as of this encounter
--- OUTSIDE RECORDS SUMMARY | 2024-03-24 19:43 | XMS_ITS | Encounter Summary ---
Author Organization [facility] Address [address] [place] [address] Care Team Providers Care Courtroom Deputy Or Calendar Clerk Name Role Phone Provider, Abstract Primary Care [...] on filedocumented in this encounter Care Teams Courtroom Deputy Or Calendar Clerk Relationship Specialty Start Date End Date Provider, Abstract NO ADDRESS ON FILE PCP - General 08/20/19 documented as of this encounter
--- OUTSIDE RECORDS SUMMARY | 2024-03-24 19:43 | XMS_ITS | Clinical Summary ---
Author Organization [facility] Address [address] [place] [address]. [place], [place] [address] [place] [id number] Care Team Providers Care Hydraulic Press Operator Name Role Phone None, Provider MD Primary [...] Comments Blood Pressure 127/56 03/28/2018 5:50 PM VENDING MACHINE ASSEMBLER Pulse 75 03/28/2018 5:50 PM VENDING MACHINE ASSEMBLER Temperature 36.7 ??C (98 ??F) 03/28/2018 2:19 PM VENDING MACHINE ASSEMBLER Respiratory Rate 18 03/28/2018 5:50 PM VENDING MACHINE ASSEMBLER Oxygen Saturation 98% 03/28/2018 5:50 PM VENDING MACHINE ASSEMBLER Inhaled Oxygen Concentration - - Weight 136.1 kg (300 lb) 03/28/2018 2:19 PM VENDING MACHINE ASSEMBLER Height 170.2 cm (5' 7 ) 03/28/2018 2:19 PM VENDING MACHINE ASSEMBLER Body Mass Index 46.99 03/28/2018 2:19 PM VENDING MACHINE ASSEMBLER Plan of Treatment Health Maintenance Due Date [...] to complete this topic Insurance Care Teams Hydraulic Press Operator Relationship Specialty Start Date End Date None, Provider, PCP - General 01/06/18
--- OUTSIDE RECORDS SUMMARY | 2024-03-24 19:43 | XMS_ITS | Encounter Summary ---
Author Organization [facility]IN[facility] Sandra [facility] Address [address] [place] [address] Care Team Providers Care Dean Of Education Name Role Phone Provider, Abstract Primary Care Provider Unavail able Reason for Referral * Radiology Services (Routine) - Closed Specialty Diagnoses / Procedures Referred By Wilfred t Referred To Contact Diagnoses Acute deep vein thrombosis (DVT) of proximal vein of both lower extremities Procedures US VENOUS DOPPLER LEG BILATERAL Hardik Mane MD [address] [place] [id number] [place] [address] Referral ID Status Reason Start Date Expiration Date V isits Requested Visits Authorized [id number] Closed [facility] CTS 11/13/2023 12/13/2024 1 1 Reason for Visit * Reason Comments Establish Care Encounter Details Date Type Department Care Team (Late st Contact Info) Description 11/13/2023 1:30 PM CDT Office Visit [facility] [place] [address] [place] [address] Hardik Mane MD [address] [place] [address] Chronic anemia (Primary Dx); Acute deep vein thrombosis (DVT) of proximal vein of both lower extremities Social History Tobacco Use Types Packs/Day Years [...] PM CDT documented as of this encounter Last [...] Mass Index 44.92 11/13/2023 1:35 PM CDT documented in this encounter Progress Notes * Hardik Mane MD - 11/13/2023 2:26 PM CDT Hematology-oncology consult Note Requesting Physician Primary Care Physician Provider, Abstract Problem list Patient Active Problem List Diagnosis Code Chronic anemia D64.9 Other dietary vitamin B12 deficiency anemia D51.3 Secondary hypercoagulable state D68.69 Previous TREATMENT ? Measurable Disease ? Reason for Visit Tiarra Addison is a 52 y.o. female who was referred for consultation for hypercoagulable state and anemia. 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 She was on Xarelto. 2 years ago she was traveling to [place] and developed right lower extremity DVT underwent thrombectomy. She was placed back on Xarelto. Patient was admitted to the hospital with bright red blood per rectum for 3 days duration on October 02, 2023. Xarelto was discontinued. EGD in August 2023 came back unremarkable at [place]. Colonoscopy was done on October 03 that showed colon polyps with internal hemorrhoids. She has 1 episode of hemorrhoidal bl eeding since the discharge from the hospital. Complain of mild tiredness and fatigue. No chest painshortness of breath. No other new complaints. Past Medical History Past Medical History: Diagnosis Date Acute gastric ulcer Depression H/O blood clots Heart failure History of blood transfusion HTN (hypertension) Nutritional anemia, unspecified Surgical History Past Surgical History: Procedure Laterality Date HX SECTION Pt. has had 3 'S HX GASTRIC BYPASS Medications Current Outpatient Medications Medication Sig Dispense Refill Xarelto 15 mg Tablet TAKE 1 TABLET BY MOUTH TWICE DAILY WITH MEALS FOR 21 DAYS. FOLLOWED BY 20MG TABLET BY MOUTH TAKEN DAILY WITH FOOD 42 Tablet 0 zolpidem (AMBIEN) 5 mg tablet TK 1 T PO QD potassium chloride (KLOR-CON) 10 mEq Extended Release tablet TAKE 1 TABLET BY MOUTH EVERY DAY omeprazole (PriLOSEC) 40 mg Capsule, Delayed Release(E.C.) omeprazole 40 mg capsule,delayed release TAKE 1 CAPSULE(S) EVERY DAY BY ORAL ROUTE FOR 60 DAYS. metoprolol succinate (TOPROL XL) 25 mg Extended Release 24 hour tablet TAKE 1 TABLET BY MOUTH EVERYDAY lisinopriL (PRINIVIL) 10 mg tablet TAKE 1 TABLET BY MOUTH EVERY DAY HYDROcodone-acetaminophen (NORCO) 7.5-325 mg Tablet hydrocodone 7.5 mg- acetaminophen 325 mg tablet furosemide (LASIX) 40 mg tablet TAKE 1 TABLET BY MOUTH EVERY DAY folic acid (FOLVITE) 1 mg tablet TK 1 T PO QD folic acid (FOLVITE) 1 mg tablet folic acid 1 mg tablet ferrous sulfate 325 mg (65 mg iron) tablet ferrous sulfate 325 mg (65 mg iron) tablet cyanocobalamin (VITAMIN B-12) 1,000 mcg/mL Solution No current facility-administered medications for this visit. Allergies No Known Allergies Immunizations: Immunization History Administered Date(s) Administered ([employer])(12 YR UP) COVID-19 VACCINE - EMERGENCY USE AUTHORIZATION, MRNA, [id number](PF) 30 MCG/0.3 MLIM SUSP 06/29/2020 Family History No family history on file. Social History Social History Tobacco Use Smoking status: Never Smokeless tobacco: Never Substance Use Topics Alcohol use: Yes Comment: occasionlly Review of Systems Constitutional: Patient did not mention fever; no night sweats; no anorexia; no weight loss; complain of mild tiredness and fatigue NEENT: Patient did not mention headache; no change in vision; no change in hearing; no sore throat;no dysphagia Respiratory: Patient did not mention shortness of breath; no pleuritic chest pain; no cough; no hemoptysis Cardiac: Patient did not mention cardiac-like chest pain; no palpitations; no orthopnea; no PND; noDOE Breasts: Patient did not mention tenderness; no masses GI: Patient did not mention abdominal pain; no nausea; no vomiting; no diarrhea; no hematochezia; no melena : Patient did not mention dysuria; no frequency; no hesitancy; no hematuria BABY DOCTOR: Musculosketetal: Patient did not mention bone pain; no arthralgia; no joint swelling; no myalgia; Skin: Patient did not mention pruritis; no rash; no petechiae; no ecchymoses Endocrine: Patient did not mention polydipsia; no polyuria; no unusual weight gain Neuro: Patient did not mention headache; no change in vision; no sensory changes; no muscle weakness; no confusion; no seizures Psych: Patient did not mention anxiety; no depression; Physical Exam Vitals: As per nursing note Constitutional: Well developed, well nourished, no acute distress, non-toxic appearance Teeth and gum. No signs of infection or swelling. Eyes: PERRL, conjunctiva normal HEENT: Atraumatic, external ears normal, nose normal, oropharynx moist, no pharyngeal exudates. no sinus tenderness Neck- normal range of motion, no tenderness, supple Respiratory: No respiratory distress, normal breath sounds, no rales, no wheezing Cardiovascular: Normal rate, normal rhythm, no murmurs, no gallops, no rubs GI: Soft, nondistended, normal bowel sounds, nontender, no splenomegaly, no hepatomegaly, no mass, no rebound, no guarding : No costovertebral angle tenderness Musculoskeletal: No edema, no tenderness, no deformities. Back- no tenderness Integument: Well hydrated, no rash, Digits and nails inspection normal Lymphatic: No lymphadenopathy noted Neurologic: Alert & oriented x 3, CN 2-12 normal, normal motor function, normal sensory function, no focal deficits noted Psychiatric: Speech and behavior appropriate ? labs No results found for this or any previous visit (from the past 24 hour(s)). Pathology ? Imaging & Other Studies Performance Status? Assessment / Plan: ? 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 2 years ago she was traveling a lot and was not off the Xarelto for 3 months duration and developed right lower extremity DVT. Xarelto has been placed on holddue to recent admission to the hospital with a GI bleed. I will order bilateral lower extremity Doppler studies prior to restarting Xarelto at a lower dose of 10 mg for prophylaxis again based on theblood test results as well. Iron deficiency anemia. Patient has a history of gastric bypass surgery in 1999. Colonoscopy done on October 03 showed internal hemorrhoids and polyps without any signs of bleeding[facility] Will check iron studies and vitamin B12 level today. She will continue oral iron twice a day. Follow-up in 1 week. Thrombocytopenia. This is secondary to fatty liver. I recommended regular exercise and weight loss. Thank you very much for allowing me to participate in Tiarra Addison's evaluation and management. Please feel free to contact if I can be of any further assistance in your patient???s care requiring hematology or oncology evaluation. Sincerely, ? ? Hardik Mane M.D. cell TOBACCO COUNSELING She is not a tobacco/nicotine user. Hardik Mane MD ,11/13/2023 2:26 PM ? Total time spent 60 minutes, two third of the total time spent counseling patient [id number]. CC:? documented in this encounter Plan of Treatment Scheduled Orders Name Type Priority Associated Diagnoses Orde r Schedule CBC WITHOUT DIFFERENTIAL Lab Stat Chronic anemia Acute deep vein thrombosis (DVT) of proximal vein of both lower extremities Expected: 11/13/2023, Expires: 11/12/2024 BASIC METABOLIC PANEL Lab Stat Chronic anemia Expected: 11/13/2023, Expires: 11/12/2024 FERRITIN Lab Routine Chronic anemia Expected: 11/13/2023, Expires: 11/12/2024 IRON, TIBC, AND PERCENT SATURATION Lab Routine Chronic anemia Expected: 11/13/2023, Expires: 11/12/2024 VITAMIN B12 LEVEL Lab Routine Chronic anemia Expected: 11/13/2023, Expires: 11/12/2024 US VENOUS DOPPLER LEG BILATERAL Imaging Routine Acute deep vein thrombosis (DVT) of proximal vein of both lower extremities Expected: 11/14/2023, Expires: 11/12/2024 documented as of this encounter Visit Diagnoses Diagnosis Chronic anemia- Primary Anemia, unspecified Acute deep vein thrombosis (DVT) of proximal vein of both lower extremities documented in this encounter Care Teams Dean Of Education Relationship Specialty Start Date End Date Provider, Abstract NO ADDRESS ON FILE PCP - General 08/20/19 documented as of this encounter
--- OUTSIDE RECORDS SUMMARY | 2024-03-24 19:43 | XMS_ITS | Encounter Summary ---
Author Organization [facility] Address [address] [place] [address] Care Team Providers Care Moulder Operator Name Role Phone Provider, Abstract Primary [...] on filedocumented in this encounter Care Teams Moulder Operator Relationship Specialty Start Date End Date Provider, Abstract NO ADDRESS ON FILE PCP - General 08/20/19 documented as of this encounter
--- OUTSIDE RECORDS SUMMARY | 2024-03-24 19:43 | XMS_ITS | Encounter Summary ---
Author Organization [facility] Address [address] [place] [address]. [place], [place] [address] [place] [address] Care Team Providers Care Clinical Education Assistant Name Role Phone None, Provider Primary Care Provider Unavaila ble Encounter Details Date Type Department Care Team (Late st Contact Info) Description 10/06/2019 Scan [facility] at [facility], [address] [address] Scanned, Documents Social History Tobacco Use Types [...] on filedocumented in this encounter Care Teams Clinical Education Assistant Relationship Specialty Start Date End Date None, Provider, PCP - General 01/06/18 documented as of this encounter
--- OUTSIDE RECORDS SUMMARY | 2024-03-24 19:43 | XMS_ITS | Encounter Summary ---
Author Organization [facility] Address [facility] [facility] [place] [address] [place] [address] Care Team Providers Care Termite Control Servicer Name Role Phone None, Provider MD Primary Care Provider Unavaila ble Reason for Visit * Reason Onset Date Comments Appointment Request 10/07/2019 Encounter Details Date Type Department Care Team (Late st Contact Info) Description 10/07/2019 Telephone [facility] at [facility], [facility] [address] [place], [place] [id number] Jorge Fink MD [facility]. [facility] [address] [place], [place] [id number] Appointment Request Social History Tobacco Use Types [...] she said that she is seeing a carbon printer and had just seen him in the later part of September 2019. On that visit the haematologist had upped her Xarelto to 15 mg BID and he wanted to get another venous duplex in 2 months to make sure that the Xarelto was working at that dose. Tiarra was in [facility] in July 2019 and the venous duplex showed a RLE DVT. Tiarra said that she didn't want to make the appointment at this time and wanted to have the follow up venous duplex in 2 month with the carbon printer and follow up with him. If the carbon printer feels she needs to see Dr. Fink at that time she will call the office back. I gave Tiarra the office number and my ext. documented in this encounter Plan of Treatment Not on file documented as of this encounter Visit Diagnoses Not on filedocumented in this encounter Care Teams Termite Control Servicer Relationship Specialty Start Date End Date None, Provider, PCP - General 01/06/18 documented as of this encounter
--- OUTSIDE RECORDS SUMMARY | 2024-03-24 19:44 | XMS_ITS | Encounter Summary ---
Author Organization [facility] Healthcare Address [address] [place] [address] Care Team Providers Care Assistant Loan Processor Name Role Phone Haritha Tse NP Primary Care Provider [phone] Encounter Details Date Type Department Care Team (Late st Contact Info) Description 03/29/2023 Orders Only [facility] Medical Group Family Medicine [address] [place] [address] Pinky Castro PA [address] [place] [address] chronic right knee pain Social History [...] documented as of this encounter Care Teams Assistant Loan Processor Relationship Specialty Start Date End Date Haritha Tse NP [address] [address] PCP - General Internal Medicine 10/30/22 documented as of this encounter
--- OUTSIDE RECORDS SUMMARY | 2024-03-24 19:44 | XMS_ITS | Encounter Summary ---
Author Organization [facility] [employer] [facility] Address [address] [place] [address] Care Team Providers Care Conference Producer Name Role Phone Provider, Abstract Primary Care Provider Unavail able Reason for Visit * Reason Comments Follow Up FOLLOW /UP W/B12 Encounter Details Date Type Department Care Team (Late st Contact Info) Description 09/22/2019 11:00 AM CDT Office Visit [facility] - [place] [address] [facility] [address] [place] [address] Hardik Mane MD [address] [facility] [address] [place] [address] Chronic anemia (Primary Dx); Acute [...] Sign Reading Time Taken Comments Blood Pressure 129/88 09/22/2019 11:27 AM CDT Pulse 69 09/22/2019 11:27 AM CDT Temperature 37 ??C (98.6 ??F) 09/22/2019 11: 27 AM CDT Respiratory Rate - - Oxygen Saturation 96% 09/22/2019 11: 27 AM CDT Inhaled Oxygen Concentration - - Weight 149.6 kg (329 lb 11.2 oz) 2019 11:27 AM CDT Height 170.2 cm (5' 7 ) 09/22/2019 11:2 7 AM CDT Body Mass Index 51.64 09/22/2019 11:27 AM CDT documented in this encounter Progress Notes * Hardik Mane MD - 09/22/2019 12:11 PM CDT HEMATOLOGY / ONCOLOGY PROGRESS NOTE Patient Identification: Name: Tiarra Addison Age: 48 y.o. 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 Status post IVC filter placement in February 2019. Recent diagnosis of right lower extremity DVT in August 18, 2019. History of right lower extremity lymphedema Left lower extremity cellulitis Morbid obesity status post gastric bypass surgery in 1999 Multifactorial anemia status post uterine ablation treatment for iron deficiency anemia Vitamin B12 deficiency CURRENT TREATMENT Xarelto 15 mg twice a day Oral iron 3 times a day TREATMENT HISTORY Vitamin B12 injection started September 22, 2019 SUBJECTIVE Patient came into the office for follow-up visit. She is complaining of bilateral lower extremity pain. Denies any chest pain or shortness of breath. Complain of tiredness and fatigue. Denies any bleeding and bruising. No other new complaints. Review of system Constitutional: denies fevers, sweats, complain of tiredness and fatigue HEENT: denies sinus congestion, hearing or vision problems Respiratory: denies cough, dyspnea, wheeze Cardiovascular: denies chest pain, exertional chest pressure/discomfort, nausea, syncope, shortnessof breath GI: denies constipation, diarrhea, dsyphagia, reflux symptoms, vomiting, melena : denies dysuria, frequency, incontinence, urgency Integumentary system: no lymphadenopathy, sweats, flushing Musculoskeletal: Complain of bilateral lower extremity pain Neurological: denies blurry or disturbed vision, numbness/weakness, dizziness Skin: No lumps, bumps or rashes. Objective: Vital signs in last 24 hours: As per nursing note Exam: General appearance: alert, cooperative, no distress, appears stated age Head: normocephalic, without obvious abnormality, atraumatic Eyes: conjunctivae/corneas clear, EOM's intact Ears: normal external ear canals AU Nose: Nares normal. Septum midline. Mucosa normal. No drainage or sinus tenderness Throat: Lips, mucosa, and tongue normal. Teeth and gums normal Neck: supple, symmetrical, trachea midline. Lungs: clear to auscultation bilaterally Heart: regular rate and rhythm, S1, S2 normal, no murmur, click, rub or gallop Abdomen: soft, non-tender. Bowel sounds normal. No masses, No organomegaly Extremities: Bilateral lower extremity edema Skin: Skin color, texture, turgor normal. No rashes or lesions Lymph nodes: No lymphadenopathy Neuro: No obvious focal deficit PATH LABS Labs from September 10, 2019 showed WBC 14.5 hemoglobin 10.5 platelet 249,000 creatinine 0.8 vitamin B12 740 iron 17 iron saturation 5% ferritin 118 @IMAGEIMP@ Assessment: Plan: Patient Active Problem List Diagnosis Date Noted ??? Chronic anemia 09/07/2019 ??? Other dietary vitamin B12 deficiency anemia 09/07/2019 ??? Secondary hypercoagulable state 09/07/2019 Multifactorial anemia secondary to vitamin B12 deficiency and iron deficiency status post gastric bypass surgery in 1999. Labs reviewed with the patient. She will start vitamin B12 injection. She is taking oral iron twice a day. I will increase it to 3 times a day. I will repeat labs again in 2 months. Recurrent bilateral lower extremity DVT and pulmonary embolism. Patient is status post IVC filter placement in February 2019. She had a recent right lower extremity DVT diagnosed in August 2019. She will continue Xarelto 15 mg twice a day. I will order Doppler studies in 2 months. I will see her back in 2 months. Bilateral lower extremity pain. This could be secondary to history of DVT and lymphedema. We will contact the primary care doctor about the pain management. She may need to see pain clinic. ? TOBACCO COUNSELING She is not a tobacco user. 09/22/2019 Hardik Mane MD documented in this encounter Plan of Treatment Scheduled Orders Name Type Priority Associated Diagnoses Orde r Schedule CBC WITHOUT DIFFERENTIAL Lab Routine Chronic anemia Expected: 11/17/2019 (Approximate), Expires: 09/21/2020 FERRITIN Lab Routine Chronic anemia Expected: 11/17/2019 (Approximate), Expires: 09/21/2020 IRON, TIBC, AND PERCENT SATURATION Lab Routine Chronic anemia Expected: 11/17/2019 (Approximate), Expires: 09/21/2020 VITAMIN B12 AND FOLATE Lab Routine Chronic anemia Expected: 11/17/2019 (Approximate), Expires: 09/21/2020 documented as of this encounter Visit Diagnoses Diagnosis Chronic anemia- Primary Anemia, unspecified Acute deep vein thrombosis (DVT) of proximal vein of lower extremity, unspecified laterality documented in this encounter Care Teams Conference Producer Relationship Specialty Start Date End Date Provider, Abstract NO ADDRESS ON FILE PCP - General 08/20/19 documented as of this encounter
--- OUTSIDE RECORDS SUMMARY | 2024-03-24 19:44 | XMS_ITS | Encounter Summary ---
Author Organization [facility] Healthcare Address [address] [place] [address] Care Team Providers Care Wheelchair Rental Clerk Name Role Phone Haritha Tse NP Primary Care Provider [phone] Reason for Visit * Reason Onset Date Comments Medical Records Request 03/20/2023 Encounter Details Date Type Department Care Team (Late st Contact Info) Description 03/20/[address] [facility] Medical Group Internal Medicine at [place] [address] [place] [address] Haritha Tse NP [address] [place] [address] Medical Records Request Social History [...] Nicole Ferreira LPN - 03/21/2023 1:43 PM CUSTOMER QUALITY SPECIALIST Pt reviewed message but did not responds. Closing this message OMER QUALITY SPECIALIST * Telephone Encounter - Nicole Ferreira LPN - 03/20/2023 3:19 PM CUSTOMER QUALITY SPECIALIST Sent mychart message to clarify what is needed as this message is unclear OMER QUALITY SPECIALIST * Telephone Encounter - Shivani Toribio - 03/20/2023 2:08 PM CST Medical Question/Miscellaneous Caller???s Concern: [facility] Please request to have images from last mammogram sent to Haritha Tse. Does message need to be routed? Yes-Action Needed OMER QUALITY SPECIALIST OMER QUALITY SPECIALIST documented in this encounter Plan of Treatment Not on file documented as of this encounter Visit Diagnoses Not on filedocumented in this encounter Care Teams Wheelchair Rental Clerk Relationship Specialty Start Date End Date Haritha Tse NP [address] [facility] [address] [place] [address] PCP - General Internal Medicine 10/30/22 documented as of this encounter
--- OUTSIDE RECORDS SUMMARY | 2024-03-24 19:44 | XMS_ITS | Encounter Summary ---
Author Organization [facility] Healthcare Address [address] [place] [address] Care Team Providers Care Gaming Worker Name Role Phone Haritha Tse NP Primary Care Provider [phone] Reason for Referral * Consultation (Routine) - Closed Specialty Diagnoses / Procedures Referred By Contflores t Referred To Contact Pain Management Diagnoses Chronic pain of right knee Haritha Tse NP [address] [facility] [address] [place] [address] Phone: tel: fax: Cyndie Leroy NP [address] [place] [address] Phone: tel: fax: Referral ID Status Reason Start Date Expiration Date V isits Requested Visits Authorized [id number] Closed Specialty Services Required 03/20/2023 04/18/2024 1 1 Question Answer Please select the performing region: External Order [171] # of visits: 1 Comments Intervention Pain Certified Nurse N MARKETING ANALYST Encounter Details Date Type Department Care Team (Late st Contact Info) Description 03/20/2023 Orders Only [facility] Medical Group Family Medicine [address] [facility] [address] [place] [address] Haritha Tse NP [address] [place] [address] Chronic pain of right knee (Primary Dx) [...] PM CST Referral placed per pt request N MARKETING ANALYST documented in this encounter Plan of Treatment Scheduled Referrals Name Type Priority Associated Diagnoses Order Schedule Ambulatory referral to Pain Management Outpatient Referral Routine Chronic pain of right knee Expected: 04/03/2023 (Approximate), Expires: 03/20/2024 documented as of this encounter Visit Diagnoses Diagnosis Chronic pain of right knee- Primary documented in this encounter Care Teams Gaming Worker Relationship Specialty Start Date End Date Haritha Tse NP [address] [place] [address] PCP - General Internal Medicine 10/30/22 documented as of this encounter
--- OUTSIDE RECORDS SUMMARY | 2024-03-24 19:44 | XMS_ITS | Encounter Summary ---
Author Organization [facility] Address [address] [place]: Epic Prelude ADT [place] [address] Care Team Providers Care Publicity Person Name Role Phone Provider, Abstract Primary Care Provider Unavail able Encounter Details Date Type Department Care Team (Latest Contact Info) Description 08/20/2019 Travel Social History Tobacco Use Types Packs/Day Years Used Date Smoking Tobacco: Never Assessed Sex and Gender Information Value Date Recorded Sex Assigned at Female 10/28/2023 1:46 PM CDT Gender Identity Female 10/28/2023 1:46 PM CDT Sexual Orientation Straight 10/28/2023 1: 46 PM CDT COVID-19 Exposure Response Date Recorded In the last month, have you been in contact with someone who was confirmed or suspected to have Coronavirus / COVID-19? No / Unsure 08/20/2019 11:08 AM CDT documented as of this encounter Plan of Treatment Not on file documented as of this encounter Visit Diagnoses Not on filedocumented in this encounter Care Teams Publicity Person Relationship Specialty Start Date End Date Provider, Abstract NO ADDRESS ON FILE PCP - General 08/20/19 documented as of this encounter
--- OUTSIDE RECORDS SUMMARY | 2024-03-24 19:44 | XMS_ITS | Encounter Summary ---
Author Organization [facility] Healthcare Address [address] [place] [address] Care Team Providers Care Selector Packer Name Role Phone Haritha Tse COMMERCIAL DEVELOPMENT MANAGER Primary Care Provider [phone] Encounter Details Date Type Department Care Team (Late st Contact Info) Description 09/06/[address] [facility] Medical Group Internal Medicine at [place] [address] [place] [address] Haritha Tse, COMMERCIAL DEVELOPMENT MANAGER [address] [place] [address] Social History Tobacco Use Types Packs/Day [...] Contact us later witha reading after meds [id number] [place], [place] - [address] [facility] [address] [facility] [phone] [employer] [facility] [id number] Allergies as of 09/06/2023 (No Known Allergies) [...] policy Protocols used: Medication Refill and Renewal [id number] * Telephone Encounter - Yenni Harry RN [...] on filedocumented in this encounter Care Teams Selector Packer Relationship Specialty Start Date End Date Haritha Tse NP [address] [facility] [address] [place] [address] PCP - General Internal Medicine 10/30/22 documented as of this encounter
--- OUTSIDE RECORDS SUMMARY | 2024-03-24 19:44 | XMS_ITS | Encounter Summary ---
Author Organization [facility] Healthcare Address [address] [place] [address] Care Team Providers Care Restaurant Shift Supervisor Name Role Phone Haritha Tse NP Primary Care Provider [phone] Encounter Details Date Type Department Care Team (Late st Contact Info) Description 04/03/2023 Telephone [facility] Medical Group Family Medicine [address] [place] [address] Haritha Tse NP [address] [place] [address] Social History Tobacco Use Types [...] Nicole Ferreira LPN - 04/03/2023 9:12 AM GROUND OPERATIONS CREW MEMBER Patient called and stated that pain clinic will be calling office to discuss refill on pain medication with Haritha Tse NP. PLEASE transfer through to office and ask for [place]. [place] OPERATIONS CREW MEMBER documented in this encounter Plan of Treatment Not on file documented as of this encounter Visit Diagnoses Not on filedocumented in this encounter Care Teams Restaurant Shift Supervisor Relationship Specialty Start Date End Date Haritha Tse NP [address] [facility] [address] [place] [address] PCP - General Internal Medicine 10/30/22 documented as of this encounter
--- OUTSIDE RECORDS SUMMARY | 2024-03-24 19:44 | XMS_ITS | Clinical Summary ---
Author Organization [facility] Address [address] [place] [address] Care Team Providers Care Fox Farmer Name Role Phone Haritha Tse NP Primary Care Provider [phone] Lynn Velásquez MA Unavailable Allergies Active Allergy [...] symptoms Assessment & Plan (03/20/2023 9:07 AM SECTIONIZER): This is a significant, separately identifiable problem that was evaluated and managed on the same day as the wellness exam Chronic pain of both knees 10/30/2022 Poor circulation 10/18/2022 Peptic ulceration 10/18/2022 Opioid dependence 10/18/2022 Chronic pain syndrome 10/18/2022 Assessment & Plan (03/20/2023 9:04 AM SECTIONIZER): Patient has chronic pain and is on [...] 04/19/2020 Assessment & Plan (04/20/2020 11:10 AM SECTIONIZER): Patient recently had an episode of cellulitis and was hospitalized for IV antibiotics. Morbid obesity with BMI of 45.0-49.9, adult 03/09 Assessment & Plan (03/16/2024 2:51 PM SECTIONIZER): Discussed the patient's BMI. The BMI is [...] provided. Assessment & Plan (03/15/2023 10:42 AM SECTIONIZER): Discussed the patient's BMI. The BMI is [...] the wellness exam Congestive heart failure (CHF) ([facility]) 020 Assessment & Plan (04/30/2019 2:21 AM SECTIONIZER): Per patient, recently diagnosed at [facility] (02/2019). - Requested [facility] Records to be faxed over - Hold home metop XL and furosemide Hypothyroidism 04/30/2019 Assessment & Plan (04/20/2020 11:10 AM SECTIONIZER): Followed by her PCP and controlled at this time. Assessment & Plan (04/30/2019 2:23 AM SECTIONIZER): Pt with reported new diagnosis of hypothyroidism and prescription of levothyroxine 50mcg. -Requested [facility] Records -Repeat TSH -Will start home levothyroxine pending TSH Acute upper GI bleed 04/30/2019 Assessment & Plan (04/30/2019 5:12 AM SECTIONIZER): 2 week hx melenic stools. Per pt, admitted to [facility] on 04/14 and d/c 04/24; she required [...] 2 units pRBC in ED. - Requested [facility] records - 2 Large bore IVs - NPO for EGD - Q8H CBCs, T&S, consented - Transfuse for Hgb<7 - IV protonix BID - Monitor on Telemetry - avoid NSAIDs, ASA, anticoagulants Acute blood loss anemia 04/30/2019 Assessment & Plan (04/30/2019 5:32 AM SECTIONIZER): Hgb to 5.6 in the setting of melenic stools. S/p 2u pRBC in ED. -q8h CBC, T&S, consented -further management as listed under upper GI bleed Gastrointestinal hemorrhage with melena 04/29/19 Overview (04/30/2019): Added automatically from request for surgery [id number] Acute posthemorrhagic anemia 04/29/2019 Acute upper gastrointestinal hemorrhage 04/29/19 Congestive heart failure (CMS/HCC) 04/29/2019 Hypothyroidism 04/29/2019 Gastrointestinal hemorrhage with melena 04/28/19 Lymphedema 03/13/2019 Chronic deep vein thrombosis (DVT) of right lowe r extremity 07/31/2018 Overview (10/18/2022): twice with lymphedema Cocaine dependence, continuous ([facility]) 018 alcohol use disorder 02/04/2018 Assessment & [...] last 10 years. She had been to [facility] and discharged last week, she states she [...] for chemical dependency and outpatient psychiatry at [facility] - monitor for alcohol withdrawal Assessment & Plan (02/04/2018 4:36 AM CDT): Patient has a 10 year history of substantial alcohol use, drinking 1 bottle of wine / day everyday for the last 10 years. She had been to [facility] and discharged last week, she states she [...] for chemical dependency and outpatient psychiatry at [facility] Dementia associated with alcoholism 02/04/2018 Assessment [...] is concrete unable to abstractly interpret dont conveyor maintenance mechanic a book by its cover , she also appears disinhibited for example stating the examiner was handsome, asking how much money he made. Patient may also have some grandiose delusions stating she is suing [facility] for racism after an incident during her last hospitalization and states her litigation attorney said she may get 10-20million dollars [...] is concrete unable to abstractly interpret dont conveyor maintenance mechanic a book by its cover , she also appears disinhibited for example stating the examiner was handsome, asking how much money he made. Patient may also have some grandiose delusions stating she is suing [facility] for racism after an incident during her last hospitalization and states her litigation attorney said she may get 10-20million dollars [...] since 11/2017. 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 Disinhibition with worsening EtOH abuse, new PSA [...] since 11/2017. 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 Disinhibition with worsening EtOH abuse, new PSA [...] since 11/2017. 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 Disinhibition with worsening EtOH abuse, new PSA [...] since 11/2017. 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 Assessment & Plan (04/30/2019 2:19 AM SECTIONIZER): Prior DVTs/PEs. S/p IVC filter placement. On [...] system as she recently moved here from [place]. Pt reports missing 1 week of warfarin [...] system as she recently moved here from [place]. Pt reports missing 1 week of warfarin after running out two weeks ago -Cont lovenox, warfarin, goal INR 2-3 Assessment & Plan (02/05/2018 2:06 PM CDT): History of multiple recurrent DVTs. On life long anticoagulation per patient and family, confirmed on phone with PCP office. No records in our system as she recently moved here from [place]. Pt reports missing 1 week of warfarin after running out two weeks ago -Cont lovenox, warfarin, goal INR 2-3 Assessment & Plan (02/04/2018 6:45 AM CDT): History of multiple recurrent DVTs. On life long anticoagulation per patient and family -No records in our system as she recently moved here from [place] -Pt reports missing 1 week of warfarin after running out two weeks ago -Called [facility] and [facility]. Her warfarin script for 5mg had not been filled since April at [facility] and since June at [facility], INR currently 1.35 -Patient is unclear when last acute DVT was. Her son thinks this was in 11/2017 -Given lovenox x1 in ED. Will cont lovenox for now -Restart warfarin 5mg qday Lymphedema of right lower extremity 02/04/2018 Assessment & Plan (04/20/2020 11:11 AM SECTIONIZER): Patient has lymphedema bilateral lower extremities with [...] 02/04/2018 Assessment & Plan (04/20/2020 11:10 AM SECTIONIZER): Followed by her PCP and controlled on medications at this time. Assessment & Plan (04/30/2019 2:20 AM SECTIONIZER): Reviewed patient's medication bottles at bedside. Currently [...] 06/11/2016 Assessment & Plan (03/20/2023 9:07 AM SECTIONIZER): This is a significant, separately identifiable problem that was evaluated and managed on the same day as the wellness exam Lymphedema of lower extremity 06/11/2016 Overview (10/18/2022): chronic, right leg Encounters Date Type Department Care Team Description 03/17/2024 SUKHWINDER IP Outreach [facility] [address] [place] [address] Lynn Velásquez MA 03/16/2024 2:30 PM SECTIONIZER Office Visit [facility] Internal Medicine at [address] [place] [address] Haritha Tse NP Morbid obesity with BMI of 45.0-49.9, adult (HCC) (Primary Dx); Morbid obesity with BMI of 45.0-49.9, adult (HCC); Primary insomnia 03/09/2024 SUKHWINDER IP Outreach [address] [address] Lynn Velásquez MA 03/06/2024 SUKHWINDER IP Outreach [address] [address] Lynn Velásquez MA 02/28/2024 Orders Only [facility] [address] [place] [address] Haritha Tse NP 01/23/2024 Telephone [facility] Internal Medicine at [address] [place] [address] Haritha Tse NP Medication Request 01/21/2024 2:00 PM CDT Office Visit [facility] Medical [facility] Internal Medicine at [address] [place] [address] Haritha Tse NP Anxiety (Primary Dx); BMI 45.0-49.9, adult (HCC); Morbid obesity (HCC); chronic right knee pain; Dysuria 01/06/2024 Telephone [facility] Medical [facility] Internal Medicine at [address] [place] [address] Haritha Tse NP Medical Question/Miscellaneo us from [...] Comments Blood Pressure 122/70 03/16/2024 2:44 PM SECTIONIZER Pulse 99 03/16/2024 2:44 PM SECTIONIZER Temperature 37.1 ??C (98.7 ??F) 03/16/2024 2:44 PM CS T Respiratory Rate 16 01/21/2024 2:07 PM CDT Oxygen Saturation 100% 03/16/2024 2:44 PM SECTIONIZER Inhaled Oxygen Concentration - - Weight 135.6 kg (299 lb) 03/16/2024 2:44 PM SECTIONIZER Height 170.2 cm (5' 7 ) 03/16/2024 2:44 PM SECTIONIZER Body Mass Index 46.83 03/16/2024 2:44 PM SECTIONIZER Plan of Treatment Health Maintenance Due Date [...] 2016. Hep B core IgM Nonreactive Nonreactive [facility] Comment: Interpretive Data If test is reported as GRAYZONE, new sample should be drawn for testing. Current interpretive data was last revised on 2016. Hep C Ab Nonreactive Nonreactive [facility] Comment: Interpretive Data Positive results should be confirmed by a molecular method. If positive, a second separately collected sample should be submitted for Hepatitis C Virus (HCV) RNA Detection and Quantitation by Real-Time Reverse Rate Setter-PCR (RT-PCR). Current interpretive data was last revised on 2016. HepBsAg Nonreactive Nonreactive [facility] Blood specimen (specimen) 02/04/2018 4:42 AM CDT 02/04/2018 6:09 AM CDT N[facility]ative [facility] - 02/04/2018 2:22 PM CDT Leelee Sierra MD LAB MICROBIOLOGY - GENERAL ORD ERABLES Edited Result - Final [facility] Department [place] [address] from Last 3 Months or Most Recently Relevant to Health Maintenance Insurance [facility] MEDICARE HMO Advance Directives For more information, please contact: [phone] Documents on File Type Date Recorded Patient Lock Fitter Expl anation ADVANCE DIRECTIVE 07/20/2018 12:00 AM DWAYNE R OF DIRECT MARKETING EXECUTIVE FINANCIAL/MEDICAL * Full Code (Latest Code Status on File) Date Activated Date Inactivated Comments 04/30/2019 4:28 PM 05/02/2019 7:22 PM * Full Code Date Activated Date Inactivated Comments 04/30/2019 1:34 PM 04/30/2019 4:28 PM * Full Code Date Activated Date Inactivated Comments 02/04/2018 5:45 PM 02/07/2018 6:46 PM Care Teams Fox Farmer Relationship Specialty Start Date End Date Haritha Tse NP [address] [place] [address] PCP - General Internal Medicine 10/30/22 Lynn Velásquez MA [address] [place] [address] ACO Care Veterans' Coordinator 03/06/24
--- OUTSIDE RECORDS SUMMARY | 2024-03-24 19:44 | XMS_ITS | Encounter Summary ---
Author Organization [facility] Healthcare Address [address] [place] [address] Care Team Providers Care Branch Account Manager Name Role Phone Haritha Tse NP Primary Care Provider [phone] Lynn Velásquez MA Unavailable Reason for Visit * Reason Comments Successful Phone Call Encounter Details Date Type Department Care Team (Late st Contact Info) Description 03/17/2024 SUKHWINDER IP Outreach [facility] Accountable Care Organization [address] [place] [address] Lynn Velásquez MA [address] [place] [address] [address] [place] [address] [id number] Social History Tobacco Use Types Packs/Day Years [...] MA - 03/17/2024 3:35 PM CST Care Linux Systems Analyst contacted patient regarding recent inpatient discharge at [facility] on 03/03/24 for hemorrhage of anus [...] a vision board for next year. Care leadership coach will continue to follow upwith patient for outreach. Lynn Velásquez CMA ACO Care Linux Systems Analyst [facility] Medical Group FIC II MANAGER documented in this encounter Plan of Treatment Not on file documented as of this encounter Visit Diagnoses Not on filedocumented in this encounter Care Teams Branch Account Manager Relationship Specialty Start Date End Date Haritha Tse NP [address] [place] [address] PCP - General Internal Medicine 10/30/22 Lynn Velásquez MA [address] [place] [address] ACO Care Linux Systems Analyst 03/06/24 documented as of this encounter
--- OUTSIDE RECORDS SUMMARY | 2024-03-24 19:44 | XMS_ITS | Encounter Summary ---
Author Organization [facility] Healthcare Address [address] [place] [address] Care Team Providers Care Hand Coper Name Role Phone Haritha Tse NP Primary Care Provider [phone] Lynn Velásqeuz MA Unavailable Reason for Visit * Reason Comments Unsuccessful Phone Call 2 03/01-03/03 [facility] Successful Phone Call Encounter Details Date Type Department Care Team (Late st Contact Info) Description 03/09/2024 SUKHWINDER IP Outreach [facility] Accountable Care Organization [address] [place] [address] Lynn Velásquez MA [address] [place] [address] [address] [place] [address] Social History Tobacco Use Types Packs/Day Years [...] MA - 03/09/2024 1:03 PM CST Care Access Liaison contacted patient regarding recent inpatient discharge at [facility] on 03/03/24 for hemorrhage of anus [...] Yes Details: - Appointment status: - Care Access Liaison scheduled Appointment Date: 03/16/2024 Patient educated about same day sick appts at PCP office and s/s to report to physician. Pt verbalized understanding of information presented. Care Access Liaison to follow up with patient for continued outreach. Lynn Velásquez CMA ACO Care Access Liaison [facility] Medical Group OR DEPARTMENT documented in this encounter Plan of Treatment Not on file documented as of this encounter Visit Diagnoses Not on filedocumented in this encounter Historical Medications * This list may reflect changes made after this encounter. Xarelto 10 mg tablet TAKE 1 TABLET BY MOUTH EVERY EVENING. START ON 03/05/24 03/04/2024 added in this encounter Care Teams Hand Coper Relationship Specialty Start Date End Date Haritha Tse NP [address] [facility] [address] [place] [address] PCP - General Internal Medicine 10/30/22 Lynn Velásquez MA [address] [place] [address] [address] [place] [address] ACO Care Access Liaison 03/06/24 documented as of this encounter
--- OUTSIDE RECORDS SUMMARY | 2024-03-24 19:44 | XMS_ITS | Encounter Summary ---
Author Organization [facility] Healthcare Address [address] [place] [address] Care Team Providers Care Naval Gunfire Spotter Name Role Phone Haritha Tse NP Primary Care Provider [phone] Lynn Velásquez MA Unavailable Reason for Visit * Reason Comments Hospital Follow Up Encounter Details Date Type Department Care Team (Late st Contact Info) Description 03/16/2024 2:30 PM SALES AND MERCHANDISING ASSOCIATE Office Visit [facility] Medical [facility] Internal Medicine at [place] [address] [place] [address] Haritha Tse NP [address] [place] [address] Morbid obesity with BMI of [...] Comments Blood Pressure 122/70 03/16/2024 2:44 PM SALES AND MERCHANDISING ASSOCIATE Pulse 99 03/16/2024 2:44 PM SALES AND MERCHANDISING ASSOCIATE Temperature 37.1 ??C (98.7 ??F) 03/16/2024 2:44 PM CS T Respiratory Rate - - Oxygen Saturation 100% 03/16/2024 2:44 PM SALES AND MERCHANDISING ASSOCIATE Inhaled Oxygen Concentration - - Weight 135.6 kg (299 lb) 03/16/2024 2:44 PM SALES AND MERCHANDISING ASSOCIATE Height 170.2 cm (5' 7 ) 03/16/2024 2:44 PM SALES AND MERCHANDISING ASSOCIATE Body Mass Index 46.83 03/16/2024 2:44 PM SALES AND MERCHANDISING ASSOCIATE documented in this encounter Ordered Prescriptions Prescription [...] Kristin Singh MA - 03/16/2024 2:51 PM SALES AND MERCHANDISING ASSOCIATE Associated Problem(s): Morbid obesity with BMI of 45.0-49.9, adult (HCC) Discussed the patient's BMI. The BMI is above average. BMI management plan is completed. BMI Follow-up includes: nutrition counseling, exercise counseling and education provided. S AND MERCHANDISING ASSOCIATE documented in this encounter Plan of Treatment [...] 03/16/2024 added in this encounter Care Teams Naval Gunfire Spotter Relationship Specialty Start Date End Date Haritha Tse NP [address] [place] [address] PCP - General Internal Medicine 10/30/22 Lynn Velásquez MA [address] [place] [address] ACO Care Finishing Department Supervisor 03/06/24 documented as of this encounter
--- OUTSIDE RECORDS SUMMARY | 2024-03-24 19:44 | XMS_ITS | Encounter Summary ---
Author Organization [facility] Healthcare Address [address] [place] [address] Care Team Providers Care Dry Clipper Tender Name Role Phone Haritha Tse NP Primary Care Provider [phone] Reason for Visit * Reason Comments Follow-up urinary symptoms Dysuria on going for a week Encounter Details Date Type Department Care Team (Late st Contact Info) Description 01/21/2024 2:00 PM CDT Office Visit [facility] Medical [facility] Internal Medicine at [place] [address] [place] [address] Haritha Tse NP [address] [facility] [place] [address] Anxiety (Primary Dx); BMI 45.0-49.9, [...] this encounter Progress Notes * Haritha Tse, PUTTIER - 01/21/2024 2:00 PM CDT Images from the original note were not included. Subjective/Objective Patient ID: [email or web address] Addison is a 53 y.o. female. Visit [...] documented as of this encounter Care Teams Dry Clipper Tender Relationship Specialty Start Date End Date Haritha Tse NP [address] [address] PCP - General Internal Medicine 10/30/22 documented as of this encounter
--- OUTSIDE RECORDS SUMMARY | 2024-03-24 19:44 | XMS_ITS | Encounter Summary ---
Author Organization [facility] Healthcare Address [address] [place] [address] Care Team Providers Care Washhouse Hand Name Role Phone Haritha Tse NP Primary Care Provider [phone] Encounter Details Date Type Department Care Team (Late st Contact Info) Description 08/26/2023 Telephone [facility] Medical Group Internal Medicine at [place] [address] [place] [address] Haritha Tse NP [address] [place] [address] Social History Tobacco Use Types [...] on filedocumented in this encounter Care Teams Washhouse Hand Relationship Specialty Start Date End Date Haritha Tse NP [address] [facility] [address] [place] [address] PCP - General Internal Medicine 10/30/22 documented as of this encounter
--- OUTSIDE RECORDS SUMMARY | 2024-03-24 19:44 | XMS_ITS | Referral Summary ---
Author Organization [facility] Address [address] [place] [address] Care Team Providers Care Feller Seam Operator Name Role Phone Haritha Tse NP Primary Care Provider [phone] Lynn Velásquez MA Unavailable Encounters Date Type Department Care Team Description 03/17/2024 SUKHWINDER IP Outreach [address] [address] Lynn Velásquez MA 03/16/2024 2:30 PM SUBSYSTEMS ENGINEER Office Visit [facility] Internal Medicine at [address] [place] [phone] Haritha Tse NP Morbid obesity with BMI of 45.0-49.9, adult (HCC) (Primary Dx); Morbid obesity with BMI of 45.0-49.9, adult (HCC); Primary insomnia 03/09/2024 SUKHWINDER IP Outreach [address] [address] Lynn Velásquez MA 03/06/2024 SUKHWINDER IP Outreach [address] [address] Lynn Velásquez MA 02/28/2024 Orders Only [facility] Health Information Management [address] [place] [address] Haritha Tse NP 01/23/2024 Telephone [facility] Internal Medicine at [address] [place] [address] Haritha Tse NP Medication Request 01/21/2024 2:00 PM CDT Office Visit [facility] Internal Medicine at [address] [place] [address] Haritha Tse NP Anxiety (Primary Dx); BMI 45.0-49.9, adult (HCC); Morbid obesity (HCC); chronic right knee pain; Dysuria 01/06/2024 Telephone [facility] Internal Medicine at [address] [place] [address] Haritha Tse NP Medical Question/Miscellaneo us from [...] symptoms Assessment & Plan (03/20/2023 9:07 AM SUBSYSTEMS ENGINEER): This is a significant, separately identifiable problem that was evaluated and managed on the same day as the wellness exam Chronic pain of both knees 10/30/2022 Poor circulation 10/18/2022 Peptic ulceration 10/18/2022 Opioid dependence 10/18/2022 Chronic pain syndrome 10/18/2022 Assessment & Plan (03/20/2023 9:04 AM SUBSYSTEMS ENGINEER): Patient has chronic pain and is on [...] 04/19/2020 Assessment & Plan (04/20/2020 11:10 AM SUBSYSTEMS ENGINEER): Patient recently had an episode of cellulitis and was hospitalized for IV antibiotics. Morbid obesity with BMI of 45.0-49.9, adult 03/09 Assessment & Plan (03/16/2024 2:51 PM SUBSYSTEMS ENGINEER): Discussed the patient's BMI. The BMI is [...] provided. Assessment & Plan (03/15/2023 10:42 AM SUBSYSTEMS ENGINEER): Discussed the patient's BMI. The BMI is [...] the wellness exam Congestive heart failure (CHF) ([facility]) 020 Assessment & Plan (04/30/2019 2:21 AM SUBSYSTEMS ENGINEER): Per patient, recently diagnosed at [facility] (02/2019). - Requested [facility] Records to be faxed over - Hold home metop XL and furosemide Hypothyroidism 04/30/2019 Assessment & Plan (04/20/2020 11:10 AM SUBSYSTEMS ENGINEER): Followed by her PCP and controlled at this time. Assessment & Plan (04/30/2019 2:23 AM SUBSYSTEMS ENGINEER): Pt with reported new diagnosis of hypothyroidism and prescription of levothyroxine 50mcg. -Requested [facility] Records -Repeat TSH -Will start home levothyroxine pending TSH Acute upper GI bleed 04/30/2019 Assessment & Plan (04/30/2019 5:12 AM SUBSYSTEMS ENGINEER): 2 week hx melenic stools. Per pt, admitted to [facility] on 04/14 and d/c 04/24; she [...] 2 units pRBC in ED. - Requested [facility] records - 2 Large bore IVs - NPO for EGD - Q8H CBCs, T&S, consented - Transfuse for Hgb<7 - IV protonix BID - Monitor on Telemetry - avoid NSAIDs, ASA, anticoagulants Acute blood loss anemia 04/30/2019 Assessment & Plan (04/30/2019 5:32 AM SUBSYSTEMS ENGINEER): Hgb to 5.6 in the setting of melenic stools. S/p 2u pRBC in ED. -q8h CBC, T&S, consented -further management as listed under upper GI bleed Gastrointestinal hemorrhage with melena 04/29/19 20 Overview (04/30/2019): Added automatically from request for surgery [id number] Acute posthemorrhagic anemia 04/29/2019 Acute upper gastrointestinal hemorrhage 04/29/19 Congestive heart failure ([facility]/HCC) 04/29/2019 Hypothyroidism 04/29/2019 Gastrointestinal hemorrhage with melena [...] last 10 years. She had been to [facility] and discharged last week, she states she [...] for chemical dependency and outpatient psychiatry at [facility] - monitor for alcohol withdrawal Assessment & Plan (02/04/2018 4:36 AM CDT): Patient has a 10 year history of substantial alcohol use, drinking 1 bottle of wine / day everyday for the last 10 years. She had been to [facility] and discharged last week, she states she [...] for chemical dependency and outpatient psychiatry at [facility] Dementia associated with alcoholism 02/04/2018 Assessment [...] is concrete unable to abstractly interpret dont noodle press operator a book by its cover , she also appears disinhibited for example stating the examiner was handsome, asking how much money he made. Patient may also have some grandiose delusions stating she is suing [employer] for racism after an incident during her last hospitalization and states her deputy county attorney said she may get 10-20million dollars [...] is concrete unable to abstractly interpret dont noodle press operator a book by its cover , she also appears disinhibited for example stating the examiner was handsome, asking how much money he made. Patient may also have some grandiose delusions stating she is suing [employer] for racism after an incident during her last hospitalization and states her deputy county attorney said she may get 10-20million dollars [...] since 11/2017. 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 Disinhibition with worsening EtOH abuse, new [...] since 11/2017. 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 Disinhibition with worsening EtOH abuse, new [...] since 11/2017. 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 Disinhibition with worsening EtOH abuse, new [...] since 11/2017. 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 Assessment & Plan (04/30/2019 2:19 AM SUBSYSTEMS ENGINEER): Prior DVTs/PEs. S/p IVC filter placement. On [...] system as she recently moved here from [place]. Pt reports missing 1 week of warfarin [...] system as she recently moved here from [place]. Pt reports missing 1 week of warfarin after running out two weeks ago -Cont lovenox, warfarin, goal INR 2-3 Assessment & Plan (02/05/2018 2:06 PM CDT): History of multiple recurrent DVTs. On life long anticoagulation per patient and family, confirmed on phone with PCP office. No records in our system as she recently moved here from [place]. Pt reports missing 1 week of warfarin after running out two weeks ago -Cont lovenox, warfarin, goal INR 2-3 Assessment & Plan (02/04/2018 6:45 AM CDT): History of multiple recurrent DVTs. On life long anticoagulation per patient and family -No records in our system as she recently moved here from [place] -Pt reports missing 1 week of warfarin after running out two weeks ago -Called [facility] and [facility]. Her warfarin script for 5mg had not been filled since April at [facility] and since June at [facility], INR currently 1.35 -Patient is unclear when last acute DVT was. Her son thinks this was in 11/2017 -Given lovenox x1 in ED. Will cont lovenox for now -Restart warfarin 5mg qday Lymphedema of right lower extremity 02/04/2018 Assessment & Plan (04/20/2020 11:11 AM SUBSYSTEMS ENGINEER): Patient has lymphedema bilateral lower extremities with [...] 02/04/2018 Assessment & Plan (04/20/2020 11:10 AM SUBSYSTEMS ENGINEER): Followed by her PCP and controlled on medications at this time. Assessment & Plan (04/30/2019 2:20 AM SUBSYSTEMS ENGINEER): Reviewed patient's medication bottles at bedside. Currently [...] 06/11/2016 Assessment & Plan (03/20/2023 9:07 AM SUBSYSTEMS ENGINEER): This is a significant, separately identifiable problem [...] Comments Blood Pressure 122/70 03/16/2024 2:44 PM SUBSYSTEMS ENGINEER Pulse 99 03/16/2024 2:44 PM SUBSYSTEMS ENGINEER Temperature 37.1 ??C (98.7 ??F) 03/16/2024 2:44 PM CS T Respiratory Rate 16 01/21/2024 2:07 PM CDT Oxygen Saturation 100% 03/16/2024 2:44 PM SUBSYSTEMS ENGINEER Inhaled Oxygen Concentration - - Weight 135.6 kg (299 lb) 03/16/2024 2:44 PM SUBSYSTEMS ENGINEER Height 170.2 cm (5' 7 ) 03/16/2024 2:44 PM SUBSYSTEMS ENGINEER Body Mass Index 46.83 03/16/2024 2:44 PM SUBSYSTEMS ENGINEER Plan of Treatment Not on file Procedures [...] AM CDT) Hep A IgM Nonreactive Nonreactive [facility] Comment: Interpretive Data If test is reported as GRAYZONE, new sample should be drawn in two weeks for testing. Current interpretive data was last revised on 2016. Hep B core IgM Nonreactive Nonreactive [facility] Comment: Interpretive Data If test is reported as GRAYZONE, new sample should be drawn for testing. Current interpretive data was last revised on 2016. Hep C Ab Nonreactive Nonreactive [facility] Comment: Interpretive Data Positive results should be confirmed by a molecular method. If positive, a second separately collected sample should be submitted for Hepatitis C Virus (HCV) RNA Detection and Quantitation by Real-Time Reverse Water Engineer-PCR (RT-PCR). Current interpretive data was last revised on 2016. HepBsAg Nonreactive Nonreactive [facility] Blood specimen (specimen) 02/04/2018 4:42 AM CDT 02/04/2018 6:09 AM CDT Narrative [facility] - 02/04/2018 2:22 PM CDT Leelee Sierra MD LAB MICROBIOLOGY - GENERAL ORD ERABLES Edited Result - Final [facility] [place] [address] from Last 3 Months or Most Recently Relevant to Health Maintenance Insurance [place] [address] [employer] MEDICARE HMO Advance Directives For more information, please contact: [phone] Documents on File Type Date Recorded Patient Mosaic Tiler Expl anation ADVANCE DIRECTIVE 07/20/2018 12:00 AM DWAYNE R OF PERSONAL CARE HOME ADMINISTRATOR FINANCIAL/MEDICAL * Full Code (Latest Code Status on File) Date Activated Date Inactivated Comments 04/30/2019 4:28 PM 05/02/2019 7:22 PM * Full Code Date Activated Date Inactivated Comments 04/30/2019 1:34 PM 04/30/2019 4:28 PM * Full Code Date Activated Date Inactivated Comments 02/04/2018 5:45 PM 02/07/2018 6:46 PM Care Teams Feller Seam Operator Relationship Specialty Start Date End Date Haritha Tse NP [address] [place] [address] PCP - General Internal Medicine 10/30/22 Lynn Velásquez MA [address] [place] [address] [address] [place] [address] [employer] Anthropology And Archeology Instructor 03/06/24
--- OUTSIDE RECORDS SUMMARY | 2024-03-24 19:44 | XMS_ITS | Encounter Summary ---
Author Organization [facility] Healthcare Address [facility] [place] [address] Care Team Providers Care Food Sampler Name Role Phone Haritha Tse NP Primary Care Provider [phone] Lynn Velásquez MA Unavailable Encounter Details Date Type Department Care Team (Late st Contact Info) Description 02/28/2024 Orders Only [facility] Health Information Management [address] [place] [address] Haritha Tse, GARRETT [address] [place] [address] Social History Tobacco Use Types [...] on filedocumented in this encounter Care Teams Food Sampler Relationship Specialty Start Date End Date Haritha Tse, CABIN EQUIPMENT SUPERVISOR [address] [place] [address] PCP - General Internal Medicine 10/30/22 Lynn Velásquez MA [address] [place] [address] [employer] Tanker Truck Driver 03/06/24 documented as of this encounter
--- OUTSIDE RECORDS SUMMARY | 2024-03-24 19:44 | XMS_ITS | Encounter Summary ---
Author Organization [facility] Healthcare Address [address] [place] [id number] Care Team Providers Care Deputy Prosecuting Attorney Name Role Phone Haritha Tse NP Primary Care Provider [phone] Reason for Visit * Reason Onset Date Comments Symptom Based Call 10/08/2023 Encounter Details Date Type Department Care Team (Late st Contact Info) Description 10/08/2023 Telephone [facility] Medical Group Internal Medicine at [place] [address] [place] [address] Haritha Tse NP [address] [place] [address] Symptom Based Call Social History [...] appointment not scheduled? Requesting advice from clinical sales team leader. Additional Comments: Pt forgot to discuss this on her video visit. Pt asking for medication to be sent to [facility] #[id number] Does message need to be routed? Yes-Action Needed documented in this encounter Plan of Treatment Not on file documented as of this encounter Visit Diagnoses Not on filedocumented in this encounter Care Teams Deputy Prosecuting Attorney Relationship Specialty Start Date End Date Haritha Tse NP [address] [address] PCP - General Internal Medicine 10/30/22 documented as of this encounter
--- OUTSIDE RECORDS SUMMARY | 2024-03-24 19:44 | XMS_ITS | Encounter Summary ---
Author Organization [facility] Healthcare Address [address] [place] [address] Care Team Providers Care Supervisor Slitting And Shipping Name Role Phone Haritha Tse NP Primary Care Provider [phone] Reason for Visit * Reason Comments Anxiety Wants to talk about anxietyAlso allergies eyes drainingWas just in hospital for blood in stool Encounter Details Date Type Department Care Team (Late st Contact Info) Description 10/08/2023 11:30 AM CDT Telemedicine [facility] Medical Group Internal Medicine at [place] [address] [place] [address] Haritha Tse NP [address] [place] [address] Anxiety (Primary Dx); Rash; Morbid [...] however. They did refer her to a government contracts manager. She does complain of recent anxiety as [...] patient was located at home in the [facility]. The patient visit started at 1132 and [...] 10/08/2023 added in this encounter Care Teams Supervisor Slitting And Shipping Relationship Specialty Start Date End Date Haritha Tse NP [address] [facility] [address] [place] [address] PCP - General Internal Medicine 10/30/22 documented as of this encounter
--- OUTSIDE RECORDS SUMMARY | 2024-03-24 19:44 | XMS_ITS | Encounter Summary ---
Author Organization [facility] Address [address] [place] [address] Care Team Providers Care Waiter/Waitress Formal Name Role Phone Provider, Abstract Primary Care Provider Unavail able Reason for Visit * Reason Comments Establish Care New Patient Care / A nemia Encounter Details Date Type Department Care Team (Late st Contact Info) Description 09/07/2019 2:45 PM CDT Office Visit [facility] Oncology and Hematology - [place] [address] [facility] [address] [place] [address] Hardik Mane MD [address] [facility] [address] [place] [address] Acute deep vein thrombosis (DVT) of proximal vein of lower extremity, unspecified laterality (Primary Dx); Chronic anemia; Other dietary vitamin B12 deficiency anemia; Secondary hypercoagulable state Social History Tobacco Use Types Packs/Day Years [...] have Coronavirus / COVID-19? No / Unsure 09/07/2019 2:28 PM CDT documented as of this encounter Last Filed Vital Signs Vital Sign Reading Time Taken Comments Blood Pressure 118/73 09/07/2019 2:51 PM CDT Pulse 74 09/07/2019 2:51 PM CDT Temperature 37.3 ??C (99.2 ??F) 09/07/2019 2:51 PM CD T Respiratory Rate - - Oxygen Saturation 97% 09/07/2019 2:51 PM CDT Inhaled Oxygen Concentration - - Weight 148.9 kg (328 lb 3.2 oz) 09/07/2019 2:51 PM CDT Height 170.2 cm (5' 7 ) 09/07/2019 2:51 PM CDT Body Mass Index 51.4 09/07/2019 2:51 PM CDT documented in this encounter Progress Notes * Hardik Mane MD - 09/07/2019 3:55 PM CDT Hematology-oncology consult Note Requesting Physician DENNISE Brooks Primary Care Physician Provider, Abstract Stl Problem list There is no problem list on file for this patient. Previous TREATMENT ? Measurable Disease ? Reason for Visit Tiarra Addison is a 48 y.o. female who was referred for consultation for hypercoagulable state and anemia. 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 Due to her recurrent DVT off and on for last 7 years duration she was treated with warfarin until July 2018. At that time she developed right lower extremity DVT and pulmonary embolism and was switched toXarelto which she maintained until November 2018. Xarelto was discontinued due to metromenorrhagia and symptomatic anemia requiring blood transfusion and IVC filter was placed. In February 2019 patientwas diagnosed with left lower extremity DVT but treated conservatively due to significant anemia. She has chronic right lower extremity lymphedema and takes furosemide for swelling. On August 18, 2019 patient was admitted to the [facility] due to right leg swelling and ultrasound showed extensive DVT of the right lower extremity involving right common femoral, profunda femoral, femoral, popliteal, peroneal and posterior tibial vein. Her hemoglobin was found to be 7.9. Patient received blood transfusion and had D&C done to stop uterine bleeding. Gynecology service okay to restart anticoagulation therapy with Xarelto and patient was subsequently discharged home on Xarelto. Patient was readmitted to the hospital on August 27 due to excessive anemia with uterine bleeding. Mallikad uterine ablation treatment was performed on August 28. She is currently on Xarelto 20 mg daily but claimed that her right lower extremity edema and pain remains unchanged. She denies any chest pain and shortness of breath. She remains tired and weak. Shewas also given B12 injection in the hospital. She take iron 325 mg 2 tablets daily. Past Medical History Past Medical History: Diagnosis Date ??? Acute gastric ulcer ??? Depression ??? H/O blood clots ??? Heart failure ??? History of blood transfusion ??? HTN (hypertension) ??? Nutritional anemia, unspecified Morbid obesity status post gastric bypass surgery History of recurrent DVT and pulmonary embolism Hypothyroidism Peptic ulcer disease Surgical History Past Surgical History: Procedure Laterality Date ??? HX SECTION Pt. has had 3 'S ??? HX GASTRIC BYPASS Medications Current Outpatient Medications Medication Sig Dispense Refill ??? folic acid (FOLVITE) 1 mg tablet folic acid 1 mg tablet ??? rivaroxaban (Xarelto) 15 mg Tablet Take 1 Tablet (15 mg) by mouth 2 times daily with meals for 21 days. Followed by 20 mg by mouth daily taken with food. 42 Tablet 0 ??? zolpidem (AMBIEN) 5 mg tablet TK 1 T PO QD ??? potassium chloride (KLOR-CON) 10 mEq Extended Release tablet TAKE 1 TABLET BY MOUTH EVERY DAY ??? omeprazole (PriLOSEC) 40 mg Capsule, Delayed Release(E.C.) omeprazole 40 mg capsule,delayed release TAKE 1 CAPSULE(S) EVERY DAY BY ORAL ROUTE FOR 60 DAYS. ??? metoprolol succinate (TOPROL XL) 25 mg Extended Release 24 hour tablet TAKE 1 TABLET BY MOUTH EVERY DAY ??? lisinopriL (PRINIVIL) 10 mg tablet TAKE 1 TABLET BY MOUTH EVERY DAY ??? HYDROcodone-acetaminophen (NORCO) 7.5-325 mg Tablet hydrocodone 7.5 mg- acetaminophen 325 mg tablet ??? furosemide (LASIX) 40 mg tablet TAKE 1 TABLET BY MOUTH EVERY DAY ??? folic acid (FOLVITE) 1 mg tablet TK 1 T PO QD ??? ferrous sulfate 325 mg (65 mg iron) tablet ferrous sulfate 325 mg (65 mg iron) tablet ??? cyanocobalamin (VITAMIN B-12) 1,000 mcg/mL Solution No current facility-administered medications for this visit. Allergies No Known Allergies Immunizations: There is no immunization history on file for this patient. Family History No family history on file. Social History Social History Tobacco Use ??? Smoking status: Never Smoker ??? Smokeless tobacco: Never Used Substance Use Topics ??? Alcohol use: Yes Comment: occasionlly Review of Systems Constitutional: No fever; no night sweats; no anorexia; no weight loss; complain of tiredness and fatigue NEENT: No headache; no change in vision; no change in hearing; no sore throat; no dysphagia Respiratory: No shortness of breath; no pleuritic chest pain; no cough; no hemoptysis Cardiac: No cardiac-like chest pain; no palpitations; no orthopnea; no PND; no LUCIA Breasts: No tenderness; no masses GI: No abdominal pain; no nausea; no vomiting; no diarrhea; no hematochezia; no melena : No dysuria; no frequency; no hesitancy; no hematuria TEXTILE TECHNOLOGIST: Musculosketetal: no bone pain; no arthralgia; no joint swelling; no myalgia; complain of right lower extremity lymphedema and pain Skin: no pruritis; no rash; no petechiae; no ecchymoses Endocrine: no polydipsia; no polyuria; no unusual weight gain Neuro: No headache; no change in vision; no sensory changes; no muscle weakness; no confusion; no seizures Psych: no anxiety; no depression; Physical Exam Vitals: As [...] guarding : No costovertebral angle tenderness Musculoskeletal: Right lower extremity lymphedema, no tenderness, no deformities. Back- no tenderness Integument: Well hydrated, no rash, Digits and nails inspection normal Lymphatic: No lymphadenopathy noted Neurologic: Alert & oriented x 3, CN 2-12 normal, normal motor function, normal sensory function, no focal deficits noted Psychiatric: Speech and behavior appropriate ? labs No results found for this or any previous visit (from the past 24 hour(s)). Labs from August 27 showed hemoglobin 10.9 hematocrit 36.1. Lab from August 18 showed hemoglobin of 6.7. Vitamin B12 was only 172 on August 13. Iron was 67 with iron saturation 23% and ferritin 31.5. Pathology ? Imaging & Other Studies Performance Status? Assessment / Plan: ? Hypercoagulable state with recurrent bilateral lower extremity DVT and pulmonary embolism. Patient is morbidly obese -[place] female status post gastric bypass surgery in 1999. She lost initial weight but gained most of it back. She is not very active due to chronic right lower extremity lymphedema and obesity. She was recently diagnosed with right lower extremity DVT on August 18, 2019 when she was admitted to the hospital with right lower extremity swelling and pain. She also has historyof metromenorrhagia and had D&C done. Subsequently she had uterine ablation therapy past performed on August 28 due to persistent bleeding. Patient is now back on Xarelto but at a lower dose of 20 mg daily. She claimed that her right lower extremity pain and swelling remains unchanged. She is a can didate who will be needing lifelong anticoagulation therapy. She had an IVC filter placement in February 2019. Due to her persistent symptoms I will start her on Xarelto 15 mg twice a day for 3 weeksand then will change to 20 mg once a day. Repeat Doppler studies will be done in 3 months. She willcontinue to contact primary care doctor for any pain management. Multifactorial anemia. Patient is status post gastric bypass surgery with vitamin B12 deficiency and iron deficiency. She is taking oral iron 325 mg twice a day. Last iron levels were normal. B12 level was extremely low. I will start her on weekly B12 injection in my office. I have answered all the questions to patient satisfaction. Thank you very much for allowing me to participate in Tiarra Addison's evaluation and management. Please feel free to contact if I can be of any further assistance in your patient???s care requiring hematology or oncology evaluation. Sincerely, ? ? Hardik Mane M.D. cell TOBACCO COUNSELING She is not a tobacco user. Hardik Mane MD ,09/07/2019 3:55 PM ? Total time spent 80 minutes, two third of the total time spent counseling patient [id number]. CC:?DENNISE Brooks documented in this encounter Plan of Treatment Scheduled Orders Name Type Priority Associated Diagnoses Orde r Schedule VITAMIN B12 LEVEL Lab Routine Chronic anemia Ordered: 09/07/2019 documented as of this encounter Procedures Procedure Name Priority Date/Time Associated Diagnosis Comments IRON, TIBC, AND PERCENT SATURATION Routine 2019 Chronic anemia CBC WITH DIFFERENTIAL Routine 09/07/2019 Chronic anemia FERRITIN Routine 09/07/2019 Chronic anemia COMPREHENSIVE METABOLIC PANEL Routine 09/07/2019 Chronic anemia documented in this encounter Results * IRON, TIBC, AND PERCENT SATURATION (09/07/2019) Blood Hardik Mane MD CHEMISTRY ORDERABLES Performing Organization Address [facility]/ZIP Co de Phone Number NON [facility] * FERRITIN (09/07/2019) Blood Hardik Mane MD CHEMISTRY ORDERABLES Performing Organization Address [facility] Co de Phone Number NON [facility] * CBC WITH DIFFERENTIAL (09/07/2019) Blood Hardik Mane MD HEMATOLOGY ORDERABLE S [facility] * COMPREHENSIVE METABOLIC PANEL (09/07/2019) Blood Hardik Mane MD CHEMISTRY ORDERABLES NON [facility] documented in this encounter Visit Diagnoses Diagnosis Acute deep vein thrombosis (DVT) of proximal vein of lower extremity, unspecified laterality- Primary Chronic anemia Anemia, unspecified Other dietary vitamin B12 deficiency anemia Secondary hypercoagulable state documented in this encounter Care Teams Waiter/Waitress Formal Relationship Specialty Start Date End Date Provider, Abstract NO ADDRESS ON FILE PCP - General 08/20/19 documented as of this encounter
--- OUTSIDE RECORDS SUMMARY | 2024-03-24 19:44 | XMS_ITS | Encounter Summary ---
Author Organization [facility] Healthcare Address [address] [place] [address] Care Team Providers Care Potato Chip Frier Name Role Phone Haritha Tse AIR DISPATCHER Primary Care Provider [phone] Reason for Visit * Reason Comments Wellness Visit Encounter Details Date Type Department Care Team (Late st Contact Info) Description 09/05/2023 10:00 AM CDT Office Visit [facility] Internal Medicine at [place] [address] [place] [address] Haritha Tse, GARRETT [address] [place] [address] Physical exam, annual (Primary Dx); [...] note were not included. Subjective/Objective Patient ID: Tairra Addison is a 52 y.o. female. Visit Date: 09/05/2023 Chief Complaint Wellness Visit HPI 52-year-old female in for [facility] physical and [facility]. History of bilateral chronic knee pain. [...] documented as of this encounter Care Teams Potato Chip Frier Relationship Specialty Start Date End Date Haritha Tse NP [address] [facility] [address] [place] [address] PCP - General Internal Medicine 10/30/22 documented as of this encounter
--- OUTSIDE RECORDS SUMMARY | 2024-03-24 19:44 | XMS_ITS | Encounter Summary ---
Author Organization [facility] Healthcare Address [address] [place] [address] Care Team Providers Care Armorer Technician Name Role Phone Haritha Tse NP Primary Care Provider [phone] Reason for Visit * Reason Onset Date Comments Medical Question/Miscellaneous 01/06/2024 Encounter Details Date Type Department Care Team (Late st Contact Info) Description 01/06/2024 Telephone [facility] Medical Group Internal Medicine at [place] [address] [place] [address] Haritha Tse NP [address] [place] [address] Medical Question/Miscellaneous Social History Tobacco [...] on filedocumented in this encounter Care Teams Armorer Technician Relationship Specialty Start Date End Date Haritha Tse NP [address] [facility] [address] [place] [address] PCP - General Internal Medicine 10/30/22 documented as of this encounter
--- OUTSIDE RECORDS SUMMARY | 2024-03-24 19:44 | XMS_ITS | Encounter Summary ---
Author Organization [facility] Healthcare Address [address] [place] [address] Care Team Providers Care Instructional Coach Name Role Phone Haritha Tse NP Primary Care Provider [phone] Encounter Details Date Type Department Care Team (Late st Contact Info) Description 01/07/2023 10:30 AM CDT Telemedicine [facility] Medical [facility] Internal Medicine at [place] [address] [place] [address] Haritha Tse NP [address] [facility] [address] [place] [address] Chronic pain of both knees (Primary [...] was located at home in the state [facility]. The patient visit started at 1030 and [...] and/or responsible for any applicable copayments. Haritha sTe NP documented in this encounter Plan of Treatment Not on file documented as of this encounter Visit Diagnoses Diagnosis Chronic pain of both knees- Primary documented in this encounter Care Teams Instructional Coach Relationship Specialty Start Date End Date Haritha Tse NP [address] [facility] [address] [place] [address] PCP - General Internal Medicine 10/30/22 documented as of this encounter
--- OUTSIDE RECORDS SUMMARY | 2024-03-24 19:44 | XMS_ITS | Encounter Summary ---
Author Organization [facility] Address [address] [place]: Epic Prelude ADT [place] [address] Care Team Providers Care Chemical Laboratory Scientist Name Role Phone Provider, Abstract Primary Care Provider Unavail able Encounter Details Date Type Department Care Team (Latest Contact Info) Description 09/07/2019 Travel Social History Tobacco Use Types Packs/Day [...] on filedocumented in this encounter Care Teams Chemical Laboratory Scientist Relationship Specialty Start Date End Date Provider, Abstract NO ADDRESS ON FILE PCP - General 08/20/19 documented as of this encounter
--- OUTSIDE RECORDS SUMMARY | 2024-03-24 19:44 | XMS_ITS | Encounter Summary ---
Author Organization [facility] Healthcare Address [address] [place] [address] Care Team Providers Care Semiconductor Packages Platemaker Name Role Phone Haritha Tse NP Primary Care Provider [phone] Reason for Visit * Reason Onset Date Comments Medication Request 01/23/2024 Encounter Details Date Type Department Care Team (Late st Contact Info) Description 01/23/2024 Telephone [facility] Medical [facility] Internal Medicine at [place] [address] [place] [address] Haritha Tse NP [address] [place] [address] Medication Request Social History Tobacco [...] documented as of this encounter Care Teams Semiconductor Packages Platemaker Relationship Specialty Start Date End Date Haritha Tse NP [facility] [address] PCP - General Internal Medicine 10/30/22 documented as of this encounter
--- OUTSIDE RECORDS SUMMARY | 2024-03-24 19:44 | XMS_ITS | Encounter Summary ---
Author Organization [facility] Healthcare Address [address] [place] [address] Care Team Providers Care Plaster Mold Maker Name Role Phone Haritha Tse NP Primary Care Provider Encounter Details Date Type Department Care Team (Late st Contact Info) Description 03/15/2023 10:30 AM SALESPERSON TRAILERS AND MOTOR HOMES Telemedicine [facility] Medical Group Internal Medicine at [place] [address] [place] [address] Haritha Tse NP [address] [place] [address] Encounter for Medicare annual wellness [...] 136.5 kg (301 lb) 03/15/2023 10:37 AM SALESPERSON TRAILERS AND MOTOR HOMES Height 170.2 cm (5' 7 ) 03/15/2023 10:37 AM SALESPERSON TRAILERS AND MOTOR HOMES Body Mass Index 47.14 03/15/2023 10:37 AM SALESPERSON TRAILERS AND MOTOR HOMES documented in this encounter Patient Instructions * Patient Instructions* Haritha Tse NP - 03/15/2023 10:30 AM SALESPERSON TRAILERS AND MOTOR HOMES Routine annual Medicare wellness examination and [employer] PAF completed today. Increase blood pressure medicine to 10 mg of Norvasc daily. Contact the office in 2 weeks with a blood pressure reading. Follow-up in 3 months or sooner as needed SPERSON TRAILERS AND MOTOR HOMES documented in this encounter Ordered Prescriptions Prescription [...] a living will or durable power of trademark attorney?: (!) No Would you like information regarding Advanced Directive (Living Will) and/or Durable Power of Informatics Scientist?: No Do you have to strain or [...] Team Providers: Patient Care Team: Haritha Tse, ASSOCIATE EMBALMER/FUNERAL DIRECTOR as PCP - General (Internal Medicine) Primary Pharmacy/DME suppliers: [id number] - [place], [place] - [address] [phone] [facility] [id number] Detection of Cognitive Impairment: Detect cognitive impairment [...] patient was located at work in the [facility]. The patient visit started at 0135 and ended at 1345. My total encounter time on 03/15/2023 was 10 minutes which was spent in the activities documented in the note. This includes time spent prior to the visit and after the visit in direct care of the patient. This time does not include time spent in any separately reportable services.. Haritha Tse NP SPERSON TRAILERS AND MOTOR HOMES documented in this encounter Miscellaneous Notes * Assessment & Plan Note - Haritha Tse NP - 03/20/2023 9:07 AM SALESPERSON TRAILERS AND MOTOR HOMES Associated Problem(s): UTI symptoms This is a significant, separately identifiable problem that was evaluated and managed on the same day as the wellness exam SPERSON TRAILERS AND MOTOR HOMES * Assessment & Plan Note - Haritha Tse NP - 03/20/2023 9:07 AM SALESPERSON TRAILERS AND MOTOR HOMES Associated Problem(s): Essential hypertension This is a significant, separately identifiable problem that was evaluated and managed on the same day as the wellness exam SPERSON TRAILERS AND MOTOR HOMES * Assessment & Plan Note - Haritha Tse NP - 03/20/2023 9:04 AM SALESPERSON TRAILERS AND MOTOR HOMES Associated Problem(s): Chronic pain syndrome Patient has chronic pain and is on a chronic opioid. Discussed importance of taking medication as prescribed and pain is currently controlled with no abuse. Continue same dose Do not share medications. Followup for urine drug testing as instructed. Keep followup appointments as instructed. Offered Pain Management. SPERSON TRAILERS AND MOTOR HOMES * Assessment & Plan Note - Kristin Singh MA - 03/15/2023 10:42 AM SALESPERSON TRAILERS AND MOTOR HOMES Associated Problem(s): Morbid obesity with BMI of 45.0-49.9, adult (HCC) Discussed the patient's BMI. The BMI is above average. BMI management plan is completed. BMI Follow-up includes: nutrition counseling, exercise counseling and education provided. SPERSON TRAILERS AND MOTOR HOMES documented in this encounter Plan of Treatment [...] documented as of this encounter Care Teams Plaster Mold Maker Relationship Specialty Start Date End Date Haritha Tse NP [address] [facility] [address] [place] [address] PCP - General Internal Medicine 10/30/22 documented as of this encounter
--- OUTSIDE RECORDS SUMMARY | 2024-03-24 19:44 | XMS_ITS | Encounter Summary ---
Author Organization [facility] Healthcare Address [address] [place] [address] Care Team Providers Care Medical Director/Head Team Physician Name Role Phone Haritha Tse NP Primary Care Provider Reason for Visit * Reason Onset Date Comments Med Refill 03/28/2023 Encounter Details Date Type Department Care Team (Late st Contact Info) Description 03/28/2023 Nurse Triage [facility] Medical Group Internal Medicine at [address] [place] [address] Felix Spencer RN Social History [...] Pinky Castro PA - 03/29/2023 11:17 AM OIL DISPENSER Percocet #14 was the Rx. As a correction. DISPENSER * Telephone Encounter - Nicole Ferreira LPN - 03/29/2023 11:13 AM OIL DISPENSER Called and spoke to patient and informed her of recommendations. DISPENSER * Telephone Encounter - Pinky Castro PA - 03/29/2023 11:02 AM OIL DISPENSER GISELLA spoke with patient -- She states [...] at 4000mg. I will send Percocet #15. DISPENSER * Telephone Encounter - Felix Spencer RN - 03/28/2023 5:57 PM OIL DISPENSER Tiarra Matthewmirza Addison called, stated she had previously been taking [place] 10/325 QID for her knee pain and [...] complications with opioid refills too soon, and [facility] protocol with not allowing after hours refills. Pt is aware this will be forwarded to the office to address during business hours. Pt was very polite and agreeable with the plan. Message routed for med determination. #[phone] Reason for Disposition Caller requesting a CONTROLLED substance prescription refill (e.g., narcotics, ADHD medicines) Protocols used: Medication Refill and Renewal [id number] DISPENSER * Telephone Encounter - Felix Spencer RN - 03/28/2023 4:59 PM OIL DISPENSER ----- Message from July Triny sent at 03/28/2023 3:19 PM OIL DISPENSER ----- Symptom Based Call Chief Complaint(s): pain in both legs and knee Duration: on going What type of symptom(s) is the patient experiencing? Red Flag. Is the patient concerned they are experiencing a medical emergency requiring an ambulance? No Additional Comments: pt has lymphedema, swollen le Does message need to be routed? Yes-Action Needed DISPENSER documented in this encounter Plan of Treatment Not on file documented as of this encounter Visit Diagnoses Not on filedocumented in this encounter Care Teams Medical Director/Head Team Physician Relationship Specialty Start Date End Date Haritha Tse NP [address] [facility] [address] [place] [address] PCP - General Internal Medicine 10/30/22 documented as of this encounter
--- OUTSIDE RECORDS SUMMARY | 2024-03-24 19:44 | XMS_ITS | Encounter Summary ---
Author Organization [facility] Healthcare Address [address] [place] [address] Care Team Providers Care Sandblast Operator Name Role Phone Haritha Tse NP Primary Care Provider [phone] Lynn Velásquez MA Unavailable Reason for Visit * Reason Comments Unsuccessful Phone Call 1 03/01-03/03 [facility] Encounter Details Date Type Department Care Team (Late st Contact Info) Description 03/06/2024 SUKHWINDER IP Outreach [facility] Accountable Care Organization [address] [place] [address] Lynn Velásquez MA [address] [place] [address] [address] [place] [address] Social History Tobacco Use Types Packs/Day Years [...] on filedocumented in this encounter Care Teams Sandblast Operator Relationship Specialty Start Date End Date Haritha Tse, GARRETT [address] [facility] [address] [place] [address] PCP - General Internal Medicine 10/30/22 Lynn Velásquez MA [address] [facility] [address] [place] [address] ACO Care Supervisor Dials 03/06/24 documented as of this encounter
--- OUTSIDE RECORDS SUMMARY | 2024-03-24 19:44 | XMS_ITS | Encounter Summary ---
Author Organization [facility] Address [address] [facility] [address] [place] [address] Care Team Providers Care Roll Scale Worker Name Role Phone Haritha Tse ACQUISITION CONSULTANT Primary Care Provider [phone] Encounter Details Date Type Department Care Team (Late st Contact Info) Description 12/06/2022 Telephone [facility] Family Medicine [address] [facility] [address] [place] [address] Haritha Tse, ACQUISITION CONSULTANT [address] [facility] [address] [place] [address] Social History Tobacco Use Types [...] on filedocumented in this encounter Care Teams Roll Scale Worker Relationship Specialty Start Date End Date Haritha Tse NP [address] [facility] [address] [place] [address] PCP - General Internal Medicine 10/30/22 documented as of this encounter
--- OUTSIDE RECORDS SUMMARY | 2024-03-24 19:45 | XMS_ITS | Encounter Summary ---
Author Organization [facility] Address [address] [address] Care Team Providers Care Lens Coating Technician Name Role Phone Haritha Tse NP Primary Care Provider [phone] Reason for Referral * Procedure (Routine) - Closed Specialty Diagnoses / Procedures Referred By Contac t Referred To Contact Orthopedic Surgery Diagnoses Primary osteoarthritis of right knee Procedures Large Joint (Hip, Knee, Shoulder) Injection: R knee Josee Reeder NP [address] [facility] [address] [address] Phone: tel: fax: [facility] Orthopedics and Sports Medicine [address] [place] [phone] Phone: tel: fax: Referral ID Status Reason Start Date Expiration Date Visits Re quested Visits Authorized [id number] Closed 11/25/2020 12/25/2021 1 1 * Procedure (Routine) - Closed Specialty Diagnoses / Procedures Referred By Contac t Referred To Contact Orthopedic Surgery Diagnoses Primary osteoarthritis of left knee Procedures Large Joint (Hip, Knee, Shoulder) Injection: L knee Josee Reeder NP [address] [place] [address] [address] [place] [address] Phone: tel: fax: [facility] Orthopedics and Sports Medicine [address] [place] [phone] Phone: tel: fax: Referral ID Status Reason Start Date Expiration Date Visits Re quested Visits Authorized [id number] Closed 11/25/2020 12/25/2021 1 1 Reason for Visit * Reason Comments Pain Injections Pain Injections Encounter Details Date Type Department Care Team (Late st Contact Info) Description 11/25/2020 11:30 AM CDT Office Visit [facility] Orthopedics and Sports Medicine [address] [place] [phone] Josee Reeder NP [address] [place] [address] [address] [place] [address] Primary osteoarthritis of left knee-severe; Primary osteoarthritis [...] this encounter Progress Notes * Josee Reeder, STAINED GLASS WINDOW DESIGNER - 11/25/2020 11:30 AM CDTAssociated Order(s): Large [...] DVTs. She states that she lives in [place] and he is here visiting her mother. She states that she doeshave an orthopedic provider in [place]. Assessment: Diagnosis Plan 1. Primary osteoarthritis of [...] she does have an orthopedic provider in [place] where she resides with plans to follow-up with her orthopedic provider in [place]. ? ? Currently she would not be [...] Procedure Name Priority Date/Time Associated Diagnosis Comments VT ARTHROCENTESIS ASPIR&/INJ MAJOR JT/BURSA W/O US Routine 11/25/2020 11:30 AM CDT Primary osteoarthritis of right knee-moderate/severe VT ARTHROCENTESIS ASPIR&/INJ MAJOR JT/BURSA W/O US Routine 11/25/2020 11:30 AM CDT Primary osteoarthritis of left knee-severe documented in this encounter Results * VT ARTHROCENTESIS ASPIR&/INJ MAJOR JT/BURSA W/O US (11/25/2020 [...] IN CLINIC/BEDSIDE ORDERABLE S Final Result * [place] ARTHROCENTESIS ASPIR&/INJ MAJOR JT/BURSA W/O US (11/25/2020 11:30 AM CDT) Narrative Josee Reeder NP - 11/25/2020 11:30 AM CDT Josee Reeder NP ? 11/25/2020 ??3:52 PM Large Joint (Hip, Knee, Shoulder) Injection: L knee Performed by: Josee Reeder NP Authorized by: Kadonsky, Josee M., STAINED GLASS WINDOW DESIGNER Large Joint Injection/Aspiration: ??Consent Given by: ??Patient [...] with no immediate complications us Josee Reeder STAINED GLASS WINDOW DESIGNER IN CLINIC/BEDSIDE ORDERABLE S Final Result documented [...] mL documented in this encounter Care Teams Lens Coating Technician Relationship Specialty Start Date End Date Haritha Tse NP PCP - General Internal Medicine 03/28/20 10/29/22 documented as of this encounter
--- OUTSIDE RECORDS SUMMARY | 2024-03-24 19:45 | XMS_ITS | Encounter Summary ---
Author Organization [facility] Address [address] [address] Care Team Providers Care Maintenance Technician 2Nd Shift Name Role Phone Haritha Tse NP Primary Care Provider [phone] Reason for Referral * Consultation (Routine) - Closed Specialty Diagnoses / Procedures Referred By Wilfred kirkland Referred To Contact Vascular Surgery Diagnoses Lymphedema of right lower extremity Haritha Tse NP Phone: tel: fax: Karla Suresh MD [facility]0 [facility] [address] [address] Phone: tel: fax: Referral ID Status Reason Start Date Expiration Date V isits Requested Visits Authorized [id number] Closed Specialty Services Required 04/18/2020 07/17/2020 3 3 Question Answer Please select the performing region: [facility] [[id number]] Please select the performing department: [facility] [[id number][facility] # of visits: 1 O GENERATION SUPERVISOR Reason for Visit * Reason Comments New Patient PCP was seeing Seema Carter Lymphedema Encounter Details Date Type Department Care Team (Late st Contact Info) Description 03/28/2020 1:30 PM HYDRO GENERATION SUPERVISOR Office Visit [facility] Internal Medicine [address] [facility] [address] [place] [address] Haritha Tse NP [address] [facility] [address] [place] [address] Lymphedema of right lower extremity (Primary Dx); [...] Comments Blood Pressure 144/90 03/28/2020 1:22 PM HYDRO GENERATION SUPERVISOR Pulse 86 03/28/2020 1:22 PM HYDRO GENERATION SUPERVISOR Temperature 36.3 ??C (97.3 ??F) 03/28/2020 1:22 PM CS T Respiratory Rate 18 03/28/2020 1:22 PM HYDRO GENERATION SUPERVISOR Oxygen Saturation 97% 03/28/2020 1:22 PM HYDRO GENERATION SUPERVISOR Inhaled Oxygen Concentration - - Weight 147.9 kg (326 lb) 03/28/2020 1:22 PM HYDRO GENERATION SUPERVISOR Height 170.2 cm (5' 7 ) 03/28/2020 1:22 PM HYDRO GENERATION SUPERVISOR Body Mass Index 51.06 03/28/2020 1:22 PM HYDRO GENERATION SUPERVISOR documented in this encounter Patient Instructions * Patient Instructions* Haritha Tse NP - 03/28/2020 1:30 PM HYDRO GENERATION SUPERVISOR Medications as directed. Follow-up in 1 months with lab work completed. Notify the office if any questions or concerns. Restart taking her blood pressure medication daily. Follow-up as instructed O GENERATION SUPERVISOR documented in this encounter Ordered Prescriptions Prescription [...] this encounter Progress Notes * Haritha Tse, INDUSTRIAL RELATIONS MANAGER - 03/28/2020 1:30 PM CST Subjective/Objective Patient [...] an ablation done in July by her cook seafood.Patient does need medication refills today. She is [...] next visit Orders: - Lipid panel; Future O GENERATION SUPERVISOR documented in this encounter Plan of Treatment Scheduled Referrals Name Type Priority Associated Diagnoses Order Schedule Ambulatory referral to Vascular Surgery Outpatient Referral Routine Lymphedema of right lower extremity Expected: 04/11/2020 (Approximate), Expires: 03/28/2021 documented as of this encounter Procedures Procedure Name Priority Date/Time Associated Diagnosis Comments VITAMIN D 25 HYDROXY Routine 04/18/2020 12:54 PM HYDRO GENERATION SUPERVISOR Encounter for vitamin deficiency screening TSH Routine 04/18/2020 12:54 PM HYDRO GENERATION SUPERVISOR Acquired hypothyroidism HEMOGLOBIN A1C Routine 04/18/2020 12:54 PM HYDRO GENERATION SUPERVISOR Screening for diabetes mellitus (DM) LIPID PANEL Routine 04/18/2020 12:54 PM HYDRO GENERATION SUPERVISOR Screening for cholesterol level COLONOSCOPY Routine 07/19/2018 documented in this encounter Results * Hemoglobin A1c (04/18/2020 12:54 PM HYDRO GENERATION SUPERVISOR) Hemoglobin A1c % 4.9 4.0 - 5.6 % [facility] Comment: ADA 2016 GUIDELINES: ??Initial Diagnostic Criteria ? HbA1c Result: ?Interpretation: ?<5.7% ? Normal ?5.7-6.4% ?At risk for diabetes mellitus ?>=6.5% ?Consistent with diabetes mellitus ??Diabetes monitoring ? Target value (ADA Recommended) ?? <7% Blood specimen (specimen) 04/18/2020 12:54 PM HYDRO GENERATION SUPERVISOR 04/18/2020 1:16 PM HYDRO GENERATION SUPERVISOR Narrative Resulting Agency Comment CLI Haritha Tse INDUSTRIAL RELATIONS MANAGER LAB BLOOD ORDERABLES Final Re sult Performing Organization Address [facility] de Phone Number [place] [id number] [place] [address], [facility] [phone] * (ABNORMAL) Vitamin D 25 hydroxy (04/18/2020 12:54 PM HYDRO GENERATION SUPERVISOR) 25-OH Vitamin D Total 7(L) 30 - 80 ng/mL [facility] Blood specimen (specimen) 04/18/2020 12:54 PM HYDRO GENERATION SUPERVISOR 04/18/2020 1:16 PM HYDRO GENERATION SUPERVISOR Narrative Resulting Agency Comment CLI Haritha Tes INDUSTRIAL RELATIONS MANAGER LAB BLOOD ORDERABLES Final Re sult Performing Organization Address [facility] de Phone Number [place] [address] [place] [address], [facility] [phone] * Lipid panel (04/18/2020 12:54 PM HYDRO GENERATION SUPERVISOR) Triglycerides 93 0 - 149 mg/dL [facility] Comment: National Lipid Association/NCEP Guidelines: ?? Normal ?< 150 mg/dL ?? Borderline high ?? 150-199 mg/dL ?? High ?200-499 mg/dL ?? Very High ? >=500 mg/dL Cholesterol 103 0 - 199 mg/dL [facility] Comment: National Lipid Association/NCEP Guidelines: Desirable ? < 200 mg/dL Borderline high: ??200-239 mg/dL High Risk: ?>=240 mg/dL HDL Cholesterol 37 mg/dL [facility] Comment: Reference Ranges: ? Males: >=40 mg/dL ? Females: >=50 mg/dL LDL Cholesterol, Calc 47 0 - 129 mg/dL [facility] Comment: National Lipid Association/NCEP Guidelines: ??Optimal ? < 100 mg/dL ??Near Optimal ?100-129 mg/dL ??Borderline high 130-159 mg/dL ??High ?>=160 mg/dL Cholesterol/HDL Ratio 2.8 [facility] Comment: Optimal ??< 3.5:1 High ? > 5:1 Blood specimen (specimen) 04/18/2020 12:54 PM HYDRO GENERATION SUPERVISOR 04/18/2020 1:16 PM HYDRO GENERATION SUPERVISOR Narrative Resulting Agency Comment CLI Haritha Tse INDUSTRIAL RELATIONS MANAGER LAB BLOOD ORDERABLES Final Re sult Performing Organization Address [facility] Co de Phone Number [address] [phone] * TSH (04/18/2020 12:54 PM HYDRO GENERATION SUPERVISOR) TSH 2.190 0.27 - 4.20 uIU/mL [facility] Blood specimen (specimen) 04/18/2020 12:54 PM HYDRO GENERATION SUPERVISOR 04/18/2020 1:16 PM HYDRO GENERATION SUPERVISOR Narrative Resulting Agency Comment CLI Haritha Tse INDUSTRIAL RELATIONS MANAGER LAB BLOOD ORDERABLES Final Re sult [address] [place] [phone] * Colonoscopy (07/19/2018) Anatomical Region Laterality Modality [...] mcg tablet Take 50 mcg by mouth finisher fine diamond dies before breakfast Therapy completed 03/28/2020 omeprazole (PriLOSEC) [...] 03/28/2020 added in this encounter Care Teams Maintenance Technician 2Nd Shift Relationship Specialty Start Date End Date Haritha Tse NP PCP - General Internal Medicine 03/28/20 10/29/22 documented as of this encounter
--- OUTSIDE RECORDS SUMMARY | 2024-03-24 19:45 | XMS_ITS | Encounter Summary ---
Author Organization [facility] Address [address] [address] Care Team Providers Care Correspondence Transcriber Name Role Phone Haritha Tse NP Primary Care Provider [phone] Encounter Details Date Type Department Care Team (Late st Contact Info) Description 10/18/2022 9:20 AM CDT Ancillary Procedure [facility] Imaging at [address] [address] Social History Tobacco Use Types [...] are noted bilaterally with end-stage changes and [id number] changes noted in all compartments of the knees with bilateral large osteophytes also noted. ??Large effusion noted on the right leg. us Kaiser Nielson MD IMG XR PROCEDURES Edited Res ult - Final documented in this encounter Visit Diagnoses Not on filedocumented in this encounter Care Teams Correspondence Transcriber Relationship Specialty Start Date End Date Haritha Tse NP PCP - General Internal Medicine 03/28/20 10/29/22 documented as of this encounter
--- OUTSIDE RECORDS SUMMARY | 2024-03-24 19:45 | XMS_ITS | Encounter Summary ---
Author Organization [facility] Healthcare Address [address] [place] [address] Care Team Providers Care Business Control Specialist Name Role Phone Haritha Tse NP Primary Care Provider [phone] Reason for Referral * Diagnostic Imaging (Routine) - Closed Specialty Diagnoses / Procedures Referred By Wilfred kirkland Referred To Contact Diagnoses Left knee pain, unspecified chronicity Procedures XR Knee Left 3 Views Prashant Blanc DO [address] [facility] [address] [place] [address] Phone: tel: fax: [address] [address] Referral ID Status Reason Start Date Expiration Date Visits Re quested Visits Authorized [id number] Closed 07/27/2020 08/26/2021 1 1 * Diagnostic Imaging (Routine) - Closed Specialty Diagnoses / Procedures Referred By Wilfred kirkland Referred To Contact Diagnoses Right knee pain, unspecified chronicity Procedures XR Knee Right 3 Views Prashant Blanc DO [address] [facility] [address] [place] [address] Phone: tel: fax: [address] [place] [address] Referral ID Status Reason Start Date Expiration Date Visits Re quested Visits Authorized [id number] Closed 07/27/2020 08/26/2021 1 1 Encounter Details Date Type Department Care Team (Late st Contact Info) Description 07/27/2020 2:37 PM CDT Hospital Encounter [facility] OP INTERIM Prashant Blanc DO [address] [facility] [address] [address] Right knee pain, unspecified chronicity; Left knee [...] Laterality Modality Lower Extremities, [facility] 07/28/2020 8:54 AM CDT Narrative 07/28/2020 8:54 AM CDT Patient Name: ENEIDA HAN ?Ordering Dr: Prashant Blanc DO ?? D.O.B: 1970 ? Exam Date: 07/27/20 ?? 1438 ?? Age: 49 ?Sex: Female ? MR#: [id number] ?? Loc: ? RADIOLOGY REPORT ?? Order #[id number] ?? Radiology ? Knee LT 3 View [...] 8:54 AM ?? T: ? Report ID: [id number] ?? Reading Location: ??[id number] ? REPORT ELECTRONICALLY SIGNED IN OTHER VENDOR SYSTEM ?? Resulting Agency Comment O Procedure Note Rock Rivera MD - 07/28/2020 Patient Name: ENEIDA HAN Dr: Prashant Blanc DO D.O.B: 1970 Exam Date: 07/27/201437 Age: 49 Sex: Female MR#: [id number] [id number] Order #[id number] Radiology Knee LT 3 View (STANDARD) Signed [...] - Electronically signed by Rock Rivera M.D. [place] T: Report ID: [id number] Reading Location: [place] [address] REPORT ELECTRONICALLY SIGNED IN OTHER VENDOR SYSTEM [...] ?? Age: 49 ?Sex: Female ? MR#: [id number] ?? Loc: ? RADIOLOGY REPORT ?? Order #[id number] ?? Radiology ? Knee RT 3 View [...] 8:54 AM ?? T: ? Report ID: [id number] ?? Reading Location: ??[id number] ? REPORT ELECTRONICALLY SIGNED IN OTHER VENDOR SYSTEM ?? Resulting Agency Comment O Procedure Note Rock Rievra MD - 07/28/2020 Patient Name: ENEIDA HAN Nathan Dr: Prashant Blanc DO D.O.B: 1970 Exam Date: 07/27/20 143 Age: 49 Sex: Female MR#: [id number] [id number] RADIOLOGY REPORT Order #[id number] Radiology Knee RT 3 View (STANDARD) Signed [...] - Electronically signed by Rock Rivera M.D. [place] T: Report ID: [id number] Reading Location: [id number] REPORT ELECTRONICALLY SIGNED IN OTHER VENDOR SYSTEM Prashant Blanc DO IMG XR PROCEDURES Final Result documented in this encounter Visit Diagnoses Diagnosis Right knee pain, unspecified chronicity Left knee pain, unspecified chronicity documented in this encounter Care Teams Business Control Specialist Relationship Specialty Start Date End Date Haritha Tse NP PCP - General Internal Medicine 03/28/20 10/29/22 documented as of this encounter
--- OUTSIDE RECORDS SUMMARY | 2024-03-24 19:45 | XMS_ITS | Encounter Summary ---
Author Organization [facility] Address [address] [facility] [address] [place] [address] Care Team Providers Care Safety Risk Lead Name Role Phone Haritha Tse NP Primary Care Provider [phone] Reason for Visit * Reason Comments Follow-up ER F/u - GI bleed Co litis- 08/16/2020 - Cipro and Flagyl Encounter Details Date Type Department Care Team (Late st Contact Info) Description 08/23/2020 11:15 AM CDT Office Visit [facility] Internal Medicine [address] [facility] [address] [place] [phone] Haritha Tse ABSTRACTER [address] [place] [address] Epigastric pain (Primary Dx); Morbid [...] this encounter Progress Notes * Haritha Tse, ABSTRACTER - 08/23/2020 11:15 AM CDT Subjective/Objective Patient [...] her last visit Lymphedema (I89.0) Comments: Continue [place] 01/08/2025 up to 3 times daily for [...] Morbid obesity with BMI of 45.0-49.9, adult ([facility]) Lymphedema Other noninfectious lymphedema documented in [...] 11/25/2020 added in this encounter Care Teams Safety Risk Lead Relationship Specialty Start Date End Date Haritha Tse NP PCP - General Internal Medicine 03/28/20 10/29/22 documented as of this encounter
--- OUTSIDE RECORDS SUMMARY | 2024-03-24 19:45 | XMS_ITS | Encounter Summary ---
Author Organization [facility] Address [address] [address] Care Team Providers Care Pot Firer Name Role Phone Haritha Tse NP Primary Care Provider [phone] Reason for Visit * Reason Comments Follow-up HTN,Hypothyroidism.n o labs Encounter Details Date Type Department Care Team (Late st Contact Info) Description 06/23/2020 11:00 AM CDT Office Visit [facility] Internal Medicine [address] [facility] [address] [place] [address] Haritha Tse NP [address] [facility] [address] [place] [address] Essential hypertension (Primary Dx); Acquired [...] Body Mass Index 51.84 04/19/2020 11:07 AM AQUATICS LIFEGUARD documented in this encounter Patient Instructions * [...] this encounter Progress Notes * Haritha Tse, UX SPECIALIST - 06/23/2020 11:00 AM CDT Subjective/Objective Patient ID: Tiarra Addison is a 49 y.o. female. Visit Date: 06/23/2020 Chief Complaint Follow-up (HTN,Hypothyroidism.no labs) HPI 49-year-old female in for routine follow-up. Patient states that her right leg lymphedema is worsening. She does have increased pain. She is requesting an increase to 10/325 of [place] 3 times daily. We will increase her. [...] Continue Ambien as instructed Lymphedema (I89.0) Comments: [place] increased to 10/325 3 times daily as [...] documented as of this encounter Care Teams Pot Firer Relationship Specialty Start Date End Date Haritha Tse NP PCP - General Internal Medicine 03/28/20 10/29/22 documented as of this encounter
--- OUTSIDE RECORDS SUMMARY | 2024-03-24 19:45 | XMS_ITS | Encounter Summary ---
Author Organization [facility] Address [address] [facility] [address] [place] [address] Care Team Providers Care Egg Trayer Name Role Phone Haritha Tse PROCESS EXCELLENCE MANAGER Primary Care Provider [phone] Encounter Details Date Type Department Care Team (Late st Contact Info) Description 07/26/2020 Telephone [facility] Internal Medicine [address] [facility] [address] [place] [address] Haritha Tse, PROCESS EXCELLENCE MANAGER [address] [facility] [address] [place] [address] Social History Tobacco Use Types [...] DX M25.561, M25.562, and G89.29 Insurance Auth: [id number] valid 07/26/20 to 01/22/21 with 4 visits documented in this encounter Plan of Treatment Not on file documented as of this encounter Visit Diagnoses Diagnosis Arthralgia of lower leg, unspecified laterality- Primary documented in this encounter Care Teams Egg Trayer Relationship Specialty Start Date End Date Haritha Tse NP PCP - General Internal Medicine 03/28/20 10/29/22 documented as of this encounter
--- OUTSIDE RECORDS SUMMARY | 2024-03-24 19:45 | XMS_ITS | Encounter Summary ---
Author Organization [facility] Healthcare Address [address] [place] [id number] Care Team Providers Care [employer] Specialist Name Role Phone Unknown, Notinfile Unavailable Unavailable Gerard Sutton MD Primary Care Provider [phone] Encounter Details Date Type Department Care Team (Late st Contact Info) Description 04/19/2019 3:06 PM CHILD CARE DIRECTOR - 04/23/2019 5:57 PM CHILD CARE DIRECTOR Hospital Encounter [facility] ADMIT Unknown, Giuliana Gates MD [address] [place] [address] Discharge Disposition: Discharge to home or self [...] Comments Blood Pressure 96/61 04/18/2019 12:32 PM CHILD CARE DIRECTOR Pulse 71 04/18/2019 12:32 PM CHILD CARE DIRECTOR Temperature 36.9 ??C (98.5 ??F) 04/18/2019 1 2:32 PM CHILD CARE DIRECTOR Respiratory Rate - - Oxygen Saturation 98% 04/18/2019 12: 32 PM CHILD CARE DIRECTOR Inhaled Oxygen Concentration - - Weight 129.3 kg (285 lb 1.6 oz) 020 12:32 PM CHILD CARE DIRECTOR Height 170.2 cm (5' 7 ) 04/18/2019 12:3 2 PM CHILD CARE DIRECTOR Body Mass Index 44.65 04/18/2019 12:32 PM CHILD CARE DIRECTOR documented in this encounter Medications at Time [...] WITH AUTO DIFFERENTIAL Routine 04/23/2019 2:48 PM CHILD CARE DIRECTOR CBC WITH AUTO DIFFERENTIAL Routine 04/23/2019 6:44 AM CHILD CARE DIRECTOR BASIC METABOLIC PANEL Routine 04/23/2019 6:44 AM CHILD CARE DIRECTOR CBC WITH AUTO DIFFERENTIAL Routine 04/22/2019 4:28 PM CHILD CARE DIRECTOR CBC WITH AUTO DIFFERENTIAL Routine 04/22/2019 8:34 AM CHILD CARE DIRECTOR RBC TRANSFUSION ORDER Routine 04/21/2019 8:29 AM CHILD CARE DIRECTOR ANTIBODY SCREEN Routine 04/21/2019 8:29 AM CHILD CARE DIRECTOR TYPE AND SCREEN Routine 04/21/2019 8:29 AM CHILD CARE DIRECTOR CBC WITH AUTO DIFFERENTIAL Routine 04/21/2019 7:00 AM CHILD CARE DIRECTOR LIPASE Routine 04/21/2019 7:00 AM CHILD CARE DIRECTOR AMYLASE Routine 04/21/2019 7:00 AM CHILD CARE DIRECTOR BASIC METABOLIC PANEL Routine 04/21/2019 7:00 AM CHILD CARE DIRECTOR US ABDOMEN LIMITED 04/21/2019 12 :00 AM CHILD CARE DIRECTOR CBC WITH AUTO DIFFERENTIAL Routine 04/20/2019 10:00 AM CHILD CARE DIRECTOR BASIC METABOLIC PANEL Routine 04/20/2019 10:[address] ABDOMEN PELVIS WO CONTRAST 04/20/2019 12:00 AM CHILD CARE DIRECTOR CBC WITH AUTO DIFFERENTIAL Routine 04/19/2019 8:05 AM CHILD CARE DIRECTOR BASIC METABOLIC PANEL Routine 04/19/2019 8:05 AM CHILD CARE DIRECTOR RBC TRANSFUSION ORDER Routine 04/17/2019 7:59 PM CHILD CARE DIRECTOR ANTIBODY SCREEN Routine 04/17/2019 7:59 PM CHILD CARE DIRECTOR TYPE AND SCREEN Routine 04/17/2019 7:59 PM CHILD CARE DIRECTOR LIPASE Routine 04/17/2019 3:45 PM CHILD CARE DIRECTOR COMPREHENSIVE METABOLIC PANEL Routine 04/17/2019 3:45 PM CHILD CARE DIRECTOR CBC WITH AUTO DIFFERENTIAL Routine 04/17/2019 2:42 PM CHILD CARE DIRECTOR URINALYSIS, COMPLETE Routine 04/17/2019 2:35 PM CHILD CARE DIRECTOR documented in this encounter Results * (ABNORMAL) CBC with auto differential (04/23/2019 2:48 PM CHILD CARE DIRECTOR) WBC 6.1 3.8 - 9.9 X10 3/ul [facility] RBC 2.58(L) 3.90 - 5.20 x10 6/ul [facility] Hemoglobin 7.5(L) 11.9 - 15.5 g/dL [facility] Hct 24.6(L) 35.6 - 45.5 % [facility] MCV 95.3 81.3 - 96.4 fl [facility] MCH 29.1 27.1 - 33.3 pg [facility] MCHC 30.5(L) 32.3 - 35.7 g/dl [facility] RDW 21.4(H) 11.1 - 14.9 % [facility] Plt Count 156 150 - 400 x10 3/ul [facility] MPV 10.0 9.1 - 12.3 fl [facility] Neut % 69.5 % [facility] Immature Gran % 0.5 % [facility] Lymph % 17.8 % [facility] Laurens % 7.8 % [facility] Eos % 4.2 % [facility] AUTO BASO % 0.2 % [facility] NEUTROPHIL ABS # 4.3 1.7 - 6.5 x10 3/ul [facility] Immature Gran # 0.0 0.0 - 0.1 x10 3/ul [facility] Absolute Lymphs (auto) 1.1 0.8 - 3.3 x10 3/ul [facility] Absolute Monos (auto) 0.5 0.2 - 0.8 x10 3/ul [facility] Absolute Eos (auto) 0.3 0.0 - 0.5 x10 3/ul [facility] BASOPHIL ABS # 0.0 0.0 - 0.1 x10 3/ul [facility] Nucleat RBC Rel Count 0.0 #/100WBC [facility] NRBC abs 0.00 0.00 - 0.01 x10 3/ul [facility] Absolute Neutrophils 4,300 200 - 8,000 /ul [facility] 04/23/2019 2:48 PM CHILD CARE DIRECTOR 04/23/2019 3:15 PM CHILD CARE DIRECTOR Narrative Resulting Agency Comment IN us Martha Duke MD LAB BLOOD ORDERABLES Nika l Result [facility] [address] [place] [address], [facility] [phone] * (ABNORMAL) CBC with auto differential (04/23/2019 6:44 AM CHILD CARE DIRECTOR) WBC 5.8 3.8 - 9.9 X10 3/ul [facility] RBC 2.39(L) 3.90 - 5.20 x10 6/ul [facility] Hemoglobin 7.0(L) 11.9 - 15.5 g/dL [facility] Comment: Results reviewed Hct 22.2(L) 35.6 - 45.5 % [facility] MCV 92.9 81.3 - 96.4 fl [facility] MCH 29.3 27.1 - 33.3 pg [facility] MCHC 31.5(L) 32.3 - 35.7 g/dl [facility] RDW 21.1(H) 11.1 - 14.9 % [facility] Plt Count 136(L) 150 - 400 x10 3/ul [facility] MPV 10.0 9.1 - 12.3 fl [facility] Neut % 68.5 % [facility] Immature Gran % 0.3 % [facility] Lymph % 19.4 % [facility] Laurens % 7.6 % [facility] Eos % 4.0 % [facility] AUTO BASO % 0.2 % [facility] NEUTROPHIL ABS # 4.0 1.7 - 6.5 x10 3/ul [facility] Immature Gran # 0.0 0.0 - 0.1 x10 3/ul [facility] Absolute Lymphs (auto) 1.1 0.8 - 3.3 x10 3/ul [facility] Absolute Monos (auto) 0.4 0.2 - 0.8 x10 3/ul [facility] Absolute Eos (auto) 0.2 0.0 - 0.5 x10 3/ul [facility] BASOPHIL ABS # 0.0 0.0 - 0.1 x10 3/ul [facility] Nucleat RBC Rel Count 0.0 #/100WBC [facility] NRBC abs 0.00 0.00 - 0.01 x10 3/ul [facility] Absolute Neutrophils 4,000 200 - 8,000 /ul [facility] 04/23/2019 6:44 AM CHILD CARE DIRECTOR 04/23/2019 7:18 AM CHILD CARE DIRECTOR Narrative Resulting Agency Comment IN us Geo Pool MD LAB BLOOD ORDERABLES Final Result [facility] [address] [place] [address], [facility] [phone] * (ABNORMAL) Basic metabolic panel (04/23/2019 6:44 AM CHILD CARE DIRECTOR) Sodium 139 135 - 145 mmol/L [facility] Potassium 3.8 3.3 - 5.1 mmol/L [facility] Chloride 108 96 - 108 mmol/L [facility] Carbon Dioxide 25 22 - 32 mmol/L [facility] Anion Gap 6(L) 7 - 16 [facility] Glucose 89 70 - 100 mg/dL [facility] BUN 20 8 - 25 mg/dL [facility] Creatinine 0.7 0.5 - 1.1 mg/dL [facility] Comment: NOTE: Estimated GFR (Cockroft-Gault) will NOT be calculated unless patient Height and Weight were entered. Also, Kidney Disease Stage (GFR) and Estimated GFR (Cockroft-Gault) will NOT be calculated if Creatinine result is <0.2. Kidney Disease Stage >90 mL/MIN [facility] Comment: NOTE; ??The GFR is an estimated [...] on dialysis Est GFR (Cockcroft-G) 136 ml/MIN [facility] Comment: Estimated GFR(Cockroft-Gault)is used to calculate patient medication dosage Calcium 9.0 8.6 - 10.3 mg/dL [facility] 04/23/2019 6:44 AM CHILD CARE DIRECTOR 04/23/2019 7:18 AM CHILD CARE DIRECTOR Narrative Resulting Agency Comment IN Geo Pool MD LAB BLOOD ORDERABLES Final Result Performing Organization Address City/State/[facility] Co de Phone Number [facility] [address] [place] [address], [facility] [phone] * (ABNORMAL) CBC with auto differential (04/22/2019 4:28 PM CHILD CARE DIRECTOR) WBC 6.4 3.8 - 9.9 X10 3/ul [facility] RBC 2.79(L) 3.90 - 5.20 x10 6/ul [facility] Hemoglobin 8.3(L) 11.9 - 15.5 g/dL [facility] Hct 26.9(L) 35.6 - 45.5 % [facility] MCV 96.4 81.3 - 96.4 fl [facility] MCH 29.7 27.1 - 33.3 pg [facility] MCHC 30.9(L) 32.3 - 35.7 g/dl [facility] RDW 22.3(H) 11.1 - 14.9 % [facility] Plt Count 149(L) 150 - 400 x10 3/ul [facility] MPV 10.2 9.1 - 12.3 fl [facility] Neut % 68.2 % [facility] Immature Gran % 0.3 % [facility] Lymph % 20.3 % [facility] Laurens % 7.2 % [facility] Eos % 3.8 % [facility] AUTO BASO % 0.2 % [facility] NEUTROPHIL ABS # 4.3 1.7 - 6.5 x10 3/ul [facility] Immature Gran # 0.0 0.0 - 0.1 x10 3/ul [facility] Absolute Lymphs (auto) 1.3 0.8 - 3.3 x10 3/ul [facility] Absolute Monos (auto) 0.5 0.2 - 0.8 x10 3/ul [facility] Absolute Eos (auto) 0.2 0.0 - 0.5 x10 3/ul [facility] BASOPHIL ABS # 0.0 0.0 - 0.1 x10 3/ul [facility] Nucleat RBC Rel Count 0.0 #/100WBC [facility] NRBC abs 0.00 0.00 - 0.01 x10 3/ul [facility] Absolute Neutrophils 4,300 200 - 8,000 /ul [facility] 04/22/2019 4:28 PM CHILD CARE DIRECTOR 04/22/2019 4:53 PM CHILD CARE DIRECTOR Narrative Resulting Agency Comment IN us Martha Duke MD LAB BLOOD ORDERABLES Nika perez Result [facility] [address] [place] [address], [facility] [phone] * (ABNORMAL) CBC with auto differential (04/22/2019 8:34 AM CHILD CARE DIRECTOR) WBC 6.6 3.8 - 9.9 X10 3/ul [facility] RBC 2.79(L) 3.90 - 5.20 x10 6/ul [facility] Comment: Results reviewed Hemoglobin 8.4(L) 11.9 - 15.5 g/dL [facility] Comment: Results reviewed Hct 26.8(L) 35.6 - 45.5 % [facility] MCV 96.1 81.3 - 96.4 fl [facility] MCH 30.1 27.1 - 33.3 pg [facility] MCHC 31.3(L) 32.3 - 35.7 g/dl [facility] RDW 21.8(H) 11.1 - 14.9 % [facility] Plt Count 150 150 - 400 x10 3/ul [facility] MPV 10.1 9.1 - 12.3 fl [facility] Neut % 67.0 % [facility] Immature Gran % 0.5 % [facility] Lymph % 19.3 % [facility] Laurens % 8.3 % [facility] Eos % 4.7 % [facility] AUTO BASO % 0.2 % [facility] NEUTROPHIL ABS # 4.5 1.7 - 6.5 x10 3/ul [facility] Immature Gran # 0.0 0.0 - 0.1 x10 3/ul [facility] Absolute Lymphs (auto) 1.3 0.8 - 3.3 x10 3/ul [facility] Absolute Monos (auto) 0.6 0.2 - 0.8 x10 3/ul [facility] Absolute Eos (auto) 0.3 0.0 - 0.5 x10 3/ul [facility] BASOPHIL ABS # 0.0 0.0 - 0.1 x10 3/ul [facility] Nucleat RBC Rel Count 0.0 #/100WBC [facility] NRBC abs 0.00 0.00 - 0.01 x10 3/ul [facility] Absolute Neutrophils 4,500 200 - 8,000 /ul [facility] 04/22/2019 8:34 AM CHILD CARE DIRECTOR 04/22/2019 9:04 AM CHILD CARE DIRECTOR Narrative Resulting Agency Comment IN Geo Pool MD LAB BLOOD ORDERABLES Final Result [address] [phone] * RBC TRANSFUSION ORDER (04/21/2019 8:29 AM CHILD CARE DIRECTOR) RBC TRANSFUSION ORDER [id number] OP RBCORDER TRANSFUSED 04/21/19 1025 [id number] OP RBCORDER TRANSFUSED 04/21/19 1401 [facility] 04/21/2019 8:29 AM CHILD CARE DIRECTOR 04/21/2019 8:54 AM CHILD CARE DIRECTOR Narrative Resulting Agency Comment IN Geo Pool MD LAB BLOOD ORDERABLES Final Result Performing Organization Address [facility]/ZIP Co de Phone Number [address] [phone] * Antibody screen (04/21/2019 8:29 AM CHILD CARE DIRECTOR) Antibody Screen NEGATIVE [facility] 04/21/2019 8:29 AM CHILD CARE DIRECTOR 04/21/2019 8:47 AM CHILD CARE DIRECTOR Narrative Resulting Agency Comment IN Geo Pool MD LAB BLOOD BANK TEST ORDERAB LES Final Result Performing Organization Address City/[facility]/ZIP Co de Phone Number [address] [phone] * Type and screen (04/21/2019 8:29 AM CHILD CARE DIRECTOR) Blood Type OP [facility] 04/21/2019 8:29 AM CHILD CARE DIRECTOR 04/21/2019 8:47 AM CHILD CARE DIRECTOR Narrative [facility] - 04/21/2019 9:43 AM CHILD CARE DIRECTOR N Resulting Agency Comment IN Geo Pool MD LAB BLOOD BANK TEST ORDERAB LES Final Result Performing Organization Address City/[facility]/ZIP Co de Phone Number [address] [phone] * (ABNORMAL) Lipase (04/21/2019 7:00 AM CHILD CARE DIRECTOR) [facility] Lipase 10(L) 13 - 60 U/L [facility] 04/21/2019 7:00 AM CHILD CARE DIRECTOR 04/21/2019 7:30 AM CHILD CARE DIRECTOR Narrative Resulting Agency Comment IN Geo Pool MD LAB BLOOD ORDERABLES Final Result Performing Organization Address [facility] Co de Phone Number [address] [phone] * Amylase (04/21/2019 7:00 AM CHILD CARE DIRECTOR) [facility] Amylase 33 28 - 100 U/L [facility] 04/21/2019 7:00 AM CHILD CARE DIRECTOR 04/21/2019 7:30 AM CHILD CARE DIRECTOR Narrative Resulting Agency Comment IN Geo Pool MD LAB BLOOD ORDERABLES Final Result Performing Organization Address [facility] Co de Phone Number [address] [phone] * (ABNORMAL) Basic metabolic panel (04/21/2019 7:00 AM CHILD CARE DIRECTOR) [facility] Sodium 138 135 - 145 mmol/L [facility] Potassium 4.1 3.3 - 5.1 mmol/L [facility] Chloride 107 96 - 108 mmol/L [facility] Carbon Dioxide 26 22 - 32 mmol/L [facility] Anion Gap 5(L) 7 - 16 [facility] Glucose 96 70 - 100 mg/dL [facility] BUN 20 8 - 25 mg/dL [facility] Creatinine 0.6 0.5 - 1.1 mg/dL [facility] Comment: NOTE: Estimated GFR (Cockroft-Gault) will NOT be calculated unless patient Height and Weight were entered. Also, Kidney Disease Stage (GFR) and Estimated GFR (Cockroft-Gault) will NOT be calculated if Creatinine result is <0.2. Kidney Disease Stage >90 mL/MIN [facility] Comment: NOTE; ??The GFR is an estimated [...] on dialysis Est GFR (Cockcroft-G) 159 ml/MIN [facility] Comment: Estimated GFR(Cockroft-Gault)is used to calculate patient medication dosage Calcium 8.8 8.6 - 10.3 mg/dL [facility] 04/21/2019 7:00 AM CHILD CARE DIRECTOR 04/21/2019 7:30 AM CHILD CARE DIRECTOR Narrative Resulting Agency Comment IN us Geo Pool MD LAB BLOOD ORDERABLES Final Result [facility] [address] [place] [address], [facility] [phone] * (ABNORMAL) CBC with auto differential (04/21/2019 7:00 AM CHILD CARE DIRECTOR) WBC 5.6 3.8 - 9.9 X10 3/ul [facility] RBC 2.13(L) 3.90 - 5.20 x10 6/ul [facility] Comment: Results reviewed Hemoglobin 6.3(LL) 11.9 - 15.5 g/dL [facility] Comment: CRITICAL VALUE CALLED and REPEATED. at:0740 04/21/19 by:Romy Alves to: LUIS MANUEL [id number] Hct 20.1(L) 35.6 - 45.5 % [facility] MCV 94.4 81.3 - 96.4 fl [facility] MCH 29.6 27.1 - 33.3 pg [facility] MCHC 31.3(L) 32.3 - 35.7 g/dl [facility] RDW 23.2(H) 11.1 - 14.9 % [facility] Plt Count 125(L) 150 - 400 x10 3/ul [facility] MPV 10.5 9.1 - 12.3 fl [facility] Neut % 66.3 % [facility] Immature Gran % 0.4 % [facility] Lymph % 20.6 % [facility] Laurens % 8.6 % [facility] Eos % 3.9 % [facility] AUTO BASO % 0.2 % [facility] NEUTROPHIL ABS # 3.7 1.7 - 6.5 x10 3/ul [facility] Immature Gran # 0.0 0.0 - 0.1 x10 3/ul [facility] Absolute Lymphs (auto) 1.2 0.8 - 3.3 x10 3/ul [facility] Absolute Monos (auto) 0.5 0.2 - 0.8 x10 3/ul [facility] Absolute Eos (auto) 0.2 0.0 - 0.5 x10 3/ul [facility] BASOPHIL ABS # 0.0 0.0 - 0.1 x10 3/ul [facility] Nucleat RBC Rel Count 0.0 #/100WBC [facility] NRBC abs 0.00 0.00 - 0.01 x10 3/ul [facility] Absolute Neutrophils 3,700 200 - 8,000 /ul [facility] 04/21/2019 7:00 AM CHILD CARE DIRECTOR 04/21/2019 7:30 AM CHILD CARE DIRECTOR Narrative Resulting Agency Comment IN us Geo Pool MD LAB BLOOD ORDERABLES Final Result Performing Organization Address City/State/[facility] Co de Phone Number [facility] [address] [phone] * US Abdomen Limited (04/21/2019 12:00 AM CHILD CARE DIRECTOR) Anatomical Region Laterality Modality Abdomen N/A Ultrasound 04/21/2019 11:2 4 AM CHILD CARE DIRECTOR Narrative 04/21/2019 11:26 AM CHILD CARE DIRECTOR Patient Name: TIARRA ADDISON ?Ordering Dr: Geo Pool MD ?? D.O.B: 1970 ? Exam Date: 04/21/19 ?? 0000 ?? Age: 48 ?Sex: Female ? MR#: [id number] ?? Loc: ??N286-02 ? RADIOLOGY REPORT ?? Order #[id number] ?? Ultrasound ? US Abdomen/Lmt Exam Spec [...] 11:26 AM ?? T: ? Report ID: [id number] ?? Reading Location: ??[id number] ? REPORT ELECTRONICALLY SIGNED IN OTHER VENDOR SYSTEM ?? Resulting Agency Comment I Procedure Note Hi Arnold Jr., MD - 04/21/2019 Patient Name: TIARRA ADDISONOrdering Dr: Geo Pool MD, D.O.B: 1970 Exam Date: 04/21/19 0000 Age: 48 Sex: Female MR#: [id number] Loc: N286-02 RADIOLOGY REPORT Order #[id number] Ultrasound US Abdomen/Lmt Exam Spec Organ Signed [...] by Hi Arnold M.D. T: Report ID: [id number] Reading Location: [id number] REPORT ELECTRONICALLY SIGNED IN OTHER VENDOR SYSTEM us Geo Pool MD [facility] PROCEDURES Final Res ult * (ABNORMAL) Basic metabolic panel (04/20/2019 10:00 AM CHILD CARE DIRECTOR) Sodium 132(L) 135 - 145 mmol/L [facility] Potassium 4.0 3.3 - 5.1 mmol/L [facility] Chloride 104 96 - 108 mmol/L [facility] Carbon Dioxide 24 22 - 32 mmol/L [facility] Anion Gap 4(L) 7 - 16 [facility] Glucose 92 70 - 100 mg/dL [facility] BUN 16 8 - 25 mg/dL [facility] Creatinine 0.7 0.5 - 1.1 mg/dL [facility] Comment: NOTE: Estimated GFR (Cockroft-Gault) will NOT be calculated unless patient Height and Weight were entered. Also, Kidney Disease Stage (GFR) and Estimated GFR (Cockroft-Gault) will NOT be calculated if Creatinine result is <0.2. Kidney Disease Stage >90 mL/MIN [facility] Comment: NOTE; ??The GFR is an estimated [...] on dialysis Est GFR (Cockcroft-G) 136 ml/MIN [facility] Comment: Estimated GFR(Cockroft-Gault)is used to calculate patient medication dosage Calcium 9.2 8.6 - 10.3 mg/dL [facility] 04/20/2019 10:0 0 AM CHILD CARE DIRECTOR 04/20/2019 10:22 AM CHILD CARE DIRECTOR Narrative Resulting Agency Comment IN us Geo Pool MD LAB BLOOD ORDERABLES Final Result [facility] [address] [place] [address], [facility] [phone] * (ABNORMAL) CBC with auto differential (04/20/2019 10:00 AM CHILD CARE DIRECTOR) WBC 5.3 3.8 - 9.9 X10 3/ul [facility] RBC 2.76(L) 3.90 - 5.20 x10 6/ul [facility] Comment: Results reviewed Hemoglobin 8.0(L) 11.9 - 15.5 g/dL [facility] Comment: Results reviewed Hct 25.6(L) 35.6 - 45.5 % [facility] MCV 92.8 81.3 - 96.4 fl [facility] MCH 29.0 27.1 - 33.3 pg [facility] MCHC 31.3(L) 32.3 - 35.7 g/dl [facility] RDW 22.4(H) 11.1 - 14.9 % [facility] Plt Count 123(L) 150 - 400 x10 3/ul [facility] MPV 9.8 9.1 - 12.3 fl [facility] Neut % 62.7 % [facility] Immature Gran % 0.4 % [facility] Lymph % 23.0 % [facility] Laurens % 8.6 % [facility] Eos % 5.1 % [facility] AUTO BASO % 0.2 % [facility] NEUTROPHIL ABS # 3.3 1.7 - 6.5 x10 3/ul [facility] Immature Gran # 0.0 0.0 - 0.1 x10 3/ul [facility] Absolute Lymphs (auto) 1.2 0.8 - 3.3 x10 3/ul [facility] Absolute Monos (auto) 0.5 0.2 - 0.8 x10 3/ul [facility] Absolute Eos (auto) 0.3 0.0 - 0.5 x10 3/ul [facility] BASOPHIL ABS # 0.0 0.0 - 0.1 x10 3/ul [facility] Nucleat RBC Rel Count 0.0 #/100WBC [facility] NRBC abs 0.00 0.00 - 0.01 x10 3/ul [facility] Absolute Neutrophils 3,300 200 - 8,000 /ul [facility] 04/20/2019 10:0 0 AM CHILD CARE DIRECTOR 04/20/2019 10:22 AM CHILD CARE DIRECTOR Narrative Resulting Agency Comment IN us Geo Pool MD LAB BLOOD ORDERABLES Final Result [facility] [address] [place] [address], [facility] [phone] * CT Abdomen Pelvis WO Contrast (04/20/2019 12:00 AM CHILD CARE DIRECTOR) Anatomical Region Laterality Modality Body N/A Computed Tomogra phy 04/20/2019 10:3 2 AM CHILD CARE DIRECTOR Narrative 04/20/2019 10:44 AM CHILD CARE DIRECTOR Patient Name: TIARRA ADDISON ?Ordering Dr: Geo Pool MD ?? D.O.B: 1970 ? Exam Date: 04/20/19 ?? 0000 ?? Age: 48 ?Sex: Female ? MR#: [id number] ?? Loc: ??N286-02 ? RADIOLOGY REPORT ?? Order #[id number] ?? CT Scan ? CT Abd/Pelvis WO [...] 10:44 AM ?? T: ? Report ID: [id number] ?? Reading Location: ??[id number] ? REPORT ELECTRONICALLY SIGNED IN OTHER VENDOR SYSTEM ?? Resulting Agency Comment I Procedure Note Kaiser Taylor MD - 04/20/2019 Patient Name: TIARRA ADDISON Jun[place] Dr: Geo Pool MD D.O.B: 1970 Exam Date: 04/20/19 0000 Age: 48 Sex: Female MR#: [id number] Loc: N286-02 RADIOLOGY REPORT Order #[id number] CT Scan CT Abd/Pelvis WO IV Contrast [...] Kaiser Taylor M.D. AG T: Report ID: [id number] Reading Location: [place] [id number] REPORT ELECTRONICALLY SIGNED IN OTHER VENDOR SYSTEM Geo Pool MD IMG CT PROCEDURES Final Res ult * (ABNORMAL) Basic metabolic panel (04/19/2019 8:05 AM CHILD CARE DIRECTOR) Sodium 135 135 - 145 mmol/L [facility] Potassium 3.7 3.3 - 5.1 mmol/L [facility] Chloride 104 96 - 108 mmol/L [facility] Carbon Dioxide 25 22 - 32 mmol/L [facility] Anion Gap 6(L) 7 - 16 [facility] [facility] Glucose 98 70 - 100 mg/dL [facility] BUN 25 8 - 25 mg/dL [facility] Creatinine 0.7 0.5 - 1.1 mg/dL [facility] Comment: NOTE: Estimated GFR (Cockroft-Gault) will NOT be calculated unless patient Height and Weight were entered. Also, Kidney Disease Stage (GFR) and Estimated GFR (Cockroft-Gault) will NOT be calculated if Creatinine result is <0.2. Kidney Disease Stage >90 mL/MIN [facility] Comment: NOTE; ??The GFR is an estimated [...] on dialysis Est GFR (Cockcroft-G) 136 ml/MIN [facility] Comment: Estimated GFR(Cockroft-Gault)is used to calculate patient medication dosage Calcium 8.9 8.6 - 10.3 mg/dL [facility] 04/19/2019 8:05 AM CHILD CARE DIRECTOR 04/19/2019 8:43 AM CHILD CARE DIRECTOR Narrative Resulting Agency Comment LEELA us Geo Pool MD LAB BLOOD ORDERABLES Final Result [facility] [address] [phone] * (ABNORMAL) CBC with auto differential (04/19/2019 8:05 AM CHILD CARE DIRECTOR) WBC 5.5 3.8 - 9.9 X10 3/ul [facility] RBC 2.12(L) 3.90 - 5.20 x10 6/ul [facility] Hemoglobin 6.1(LL) 11.9 - 15.5 g/dL [facility] Comment: CRITICAL VALUE CALLED and REPEATED. at:0857 04/19/19 by:Nichole Siddiqi to:PHU. [id number] Hct 19.7(L) 35.6 - 45.5 % [facility] MCV 92.9 81.3 - 96.4 fl [facility] MCH 28.8 27.1 - 33.3 pg [facility] MCHC 31.0(L) 32.3 - 35.7 g/dl [facility] RDW 24.2(H) 11.1 - 14.9 % [facility] Plt Count 107(L) 150 - 400 x10 3/ul [facility] MPV 10.2 9.1 - 12.3 fl [facility] Neut % 62.4 % [facility] Immature Gran % 0.2 % [facility] Lymph % 23.1 % [facility] Laurens % 8.8 % [facility] Eos % 5.3 % [facility] AUTO BASO % 0.2 % [facility] NEUTROPHIL ABS # 3.4 1.7 - 6.5 x10 3/ul [facility] Immature Gran # 0.0 0.0 - 0.1 x10 3/ul [facility] Absolute Lymphs (auto) 1.3 0.8 - 3.3 x10 3/ul [facility] Absolute Monos (auto) 0.5 0.2 - 0.8 x10 3/ul [facility] Absolute Eos (auto) 0.3 0.0 - 0.5 x10 3/ul [facility] BASOPHIL ABS # 0.0 0.0 - 0.1 x10 3/ul [facility] Nucleat RBC Rel Count 0.0 #/100WBC [facility] NRBC abs 0.00 0.00 - 0.01 x10 3/ul [facility] Absolute Neutrophils 3,400 200 - 8,000 /ul [facility] 04/19/2019 8:05 AM CHILD CARE DIRECTOR 04/19/2019 8:43 AM CHILD CARE DIRECTOR Narrative Resulting Agency Comment LEELA us Geo Pool MD LAB BLOOD ORDERABLES Final Result Performing Organization Address [facility] [address], [facility] [phone] * RBC TRANSFUSION ORDER (04/17/2019 7:59 PM CHILD CARE DIRECTOR) RBC TRANSFUSION ORDER [id number] ??OP ?RBCORDE R ?TRANSFU SED ? 04/19/19 1014 ??[id number] ??OP ?RBCORDE R ?TRANSFU SED ? 04/19/19 1422 ??[id number] ??OP ?RBCORDE R ?TRANSFU SED ? 04/17/19 2136 [facility] 04/17/2019 7:59 PM CHILD CARE DIRECTOR 04/17/2019 8:43 PM CHILD CARE DIRECTOR Narrative Resulting Agency Comment IN us Baljeet Phillips MD LAB BLOOD ORDERABLES Nika l Result Performing Organization Address [facility] [place] [address], [facility] [phone] * Antibody screen (04/17/2019 7:59 PM CHILD CARE DIRECTOR) Pathologist [facility] Antibody Screen NEGATIVE [facility] 04/17/2019 7:59 PM CHILD CARE DIRECTOR 04/17/2019 8:02 PM CHILD CARE DIRECTOR Narrative Resulting Agency Comment ER us Baljeet Phillips MD LAB BLOOD BANK TEST ORDER ED Final Result Performing Organization Address [facility] [place] [address], [facility] [phone] * Type and screen (04/17/2019 7:59 PM CHILD CARE DIRECTOR) Blood Type OP [facility] 04/17/2019 7:59 PM CHILD CARE DIRECTOR 04/17/2019 8:02 PM CHILD CARE DIRECTOR Narrative [facility] - 04/17/2019 8:42 PM CHILD CARE DIRECTOR Rm# 3 [id number] Resulting Agency Comment ER us Baljeet Phillips MD LAB BLOOD BANK TEST ORDER ED Final Result [address] [phone] * (ABNORMAL) Lipase (04/17/2019 3:45 PM CHILD CARE DIRECTOR) Pathologist [facility] Lipase 10(L) 13 - 60 U/L [facility] 04/17/2019 3:45 PM CHILD CARE DIRECTOR 04/17/2019 3:49 PM CHILD CARE DIRECTOR Narrative [facility] - 04/17/2019 4:13 PM CHILD CARE DIRECTOR redraw;previous specimen hemolyzed. Resulting Agency Comment ER us Notinfile Unknown LAB BLOOD ORDERABLES [place] [address], [facility] [phone] * (ABNORMAL) Comprehensive metabolic panel (04/17/2019 3:45 PM CHILD CARE DIRECTOR) [facility] Sodium 138 135 - 145 mmol/L [facility] Potassium 4.0 3.3 - 5.1 mmol/L [facility] Chloride 104 96 - 108 mmol/L [facility] Carbon Dioxide 24 22 - 32 mmol/L [facility] Anion Gap 10 7 - 16 [facility] Glucose 116(H) 70 - 100 mg/dL [facility] BUN 25 8 - 25 mg/dL [facility] Creatinine 0.7 0.5 - 1.1 mg/dL [facility] Comment: NOTE: Estimated GFR (Cockroft-Gault) will NOT be calculated unless patient Height and Weight were entered. Also, Kidney Disease Stage (GFR) and Estimated GFR (Cockroft-Gault) will NOT be calculated if Creatinine result is <0.2. Kidney Disease Stage >90 mL/MIN [facility] Comment: NOTE; ??The GFR is an estimated [...] on dialysis Est GFR (Cockcroft-G) 135 ml/MIN [facility] Comment: Estimated GFR(Cockroft-Gault)is used to calculate patient medication dosage Calcium 9.2 8.6 - 10.3 mg/dL [facility] Total Protein 6.9 6.4 - 8.3 g/dL [facility] Albumin 3.3(L) 3.5 - 5.0 g/dL [facility] Globulin 3.6(H) 2.3 - 3.5 gm/dL [facility] Albumin/Globulin Ratio 0.9(L) 1.1 - 1.8 [facility] Total Bilirubin 0.6 0.0 - 1.2 mg/dL [facility] AST 17 0 - 32 U/L [facility] ALT 9 0 - 33 U/L [facility] Alkaline Phosphatase 78 35 - 104 U/L [facility] 04/17/2019 3:45 PM CHILD CARE DIRECTOR 04/17/2019 3:49 PM CHILD CARE DIRECTOR Narrative [facility] - 04/17/2019 4:13 PM CHILD CARE DIRECTOR redraw;previous specimen hemolyzed. Resulting Agency Comment ER us Notinfile Unknown LAB BLOOD ORDERABLES Final Res ult [facility] [address] [place] [address], [facility] [phone] * (ABNORMAL) CBC with auto differential (04/17/2019 2:42 PM CHILD CARE DIRECTOR) WBC 6.4 3.8 - 9.9 X10 3/ul [facility] RBC 2.88(L) 3.90 - 5.20 x10 6/ul [facility] Hemoglobin 8.4(L) 11.9 - 15.5 g/dL [facility] Hct 26.7(L) 35.6 - 45.5 % [facility] MCV 92.7 81.3 - 96.4 fl [facility] MCH 29.2 27.1 - 33.3 pg [facility] MCHC 31.5(L) 32.3 - 35.7 g/dl [facility] RDW 25.6(H) 11.1 - 14.9 % [facility] Plt Count 156 150 - 400 x10 3/ul [facility] MPV 10.8 9.1 - 12.3 fl [facility] Neut % 68.1 % [facility] Immature Gran % 0.3 % [facility] Lymph % 23.1 % [facility] Laurens % 5.5 % [facility] Eos % 2.8 % [facility] AUTO BASO % 0.2 % [facility] NEUTROPHIL ABS # 4.4 1.7 - 6.5 x10 3/ul [facility] Immature Gran # 0.0 0.0 - 0.1 x10 3/ul [facility] Absolute Lymphs (auto) 1.5 0.8 - 3.3 x10 3/ul [facility] Absolute Monos (auto) 0.4 0.2 - 0.8 x10 3/ul [facility] Absolute Eos (auto) 0.2 0.0 - 0.5 x10 3/ul [facility] BASOPHIL ABS # 0.0 0.0 - 0.1 x10 3/ul [facility] Nucleat RBC Rel Count 0.0 #/100WBC [facility] NRBC abs 0.00 0.00 - 0.01 x10 3/ul [facility] Platelet Evaluation AGREE AGREE [facility] Comment: Slide review of platelets correlates with instrument count. Anisocytosis 1+ [facility] Microcytosis 1+ [facility] Macrocytosis 1+ [facility] Absolute Neutrophils 4,400 200 - 8,000 /ul [facility] 04/17/2019 2:42 PM CHILD CARE DIRECTOR 04/17/2019 2:47 PM CHILD CARE DIRECTOR Narrative Resulting Agency Comment ER us Mayank BOWDEN LAB BLOOD ORDERABLES Final Res ult [facility] [address] [place] [address], [facility] [phone] * (ABNORMAL) Urinalysis, Complete (04/17/2019 2:35 PM CHILD CARE DIRECTOR) Ur Collection Type CLEAN CATCH [facility] Urine Color YELLOW YELLOW [facility] Urine Clarity CLEAR CLEAR [facility] Urine Glucose (UA) NORMAL NORMAL mg/dL [facility] Urine Bilirubin NEGATIVE NEGATIVE mg/dl [facility] Urine Ketones NEGATIVE NEGATIVE mg/dL [facility] Ur Specific [place] 1.020 1.005 - 1.025 [facility] Urine Blood NEGATIVE NEGATIVE mg/dl [facility] Urine pH 6.0 5.0 - 8.0 [facility] Urine Protein NEGATIVE NEGATIVE mg/dL [facility] Urine Urobilinogen NORMAL NORMAL mg/dL [facility] Urine Nitrite NEGATIVE NEGATIVE [facility] Ur Leukocyte Esterase 25(A) NEGATIVE Blu/ul [facility] Ur Microscopic Review Indicated or Ordered [facility] Urine RBC 2 0 - 2 /HPF [facility] Urine WBC 7 0 - 2 /HPF [facility] Urine Bacteria Rare /HPF [facility] Ur Squamous Epith Cells Rare /HPF [facility] 04/17/2019 2:35 PM CHILD CARE DIRECTOR 04/17/2019 2:40 PM CHILD CARE DIRECTOR Narrative [facility] - 04/17/2019 2:50 PM CHILD CARE DIRECTOR PBT Clean catch Resulting Agency Comment ER Mayank BOWDEN LAB URINE ORDERABLES Final Res ult [facility] [address] [place] [address], [facility] [phone] documented in this encounter Visit Diagnoses Not on filedocumented in this encounter Care Teams [employer] Specialist Relationship Specialty Start Date End Date Gerard Sutton MD PCP - General 11/21/18 03/27/20 Unknown, Notinfile 02/18/18 03/27/20 documented as of this encounter
--- OUTSIDE RECORDS SUMMARY | 2024-03-24 19:45 | XMS_ITS | Encounter Summary ---
Author Organization [facility] Address [address] [place] [address] Care Team Providers Care High Pressure Kettle Operator Name Role Phone Haritha Tse NP Primary Care Provider [phone] Reason for Visit * Reason Comments Leg Pain RLE lymphadema * Consultation (Routine) - Closed Specialty Diagnoses / Procedures Referred By Wilfred kirkland Referred To Contact Vascular Surgery Diagnoses Lymphedema of right lower extremity Haritha Tse NP Phone: tel: fax: [facility] [address] [place] [address] Phone: tel: fax: Referral ID Status Reason Start Date Expiration Date V isits Requested Visits Authorized [id number] Closed Specialty Services Required 04/18/2020 07/17/2020 3 3 Encounter Details Date Type Department Care Team (Late st Contact Info) Description 04/18/2020 9:45 AM FIGURE CLERK Office Visit [facility] Vascular and Vein Surgery [address] [place] [address] [facility]ures[facility] [address] [place] [address] Lymphedema of right lower extremity (Primary [...] Comments Blood Pressure 134/96 04/18/2020 9:55 AM FIGURE CLERK Pulse 73 04/18/2020 9:55 AM FIGURE CLERK Temperature - - Respiratory Rate - - Oxygen Saturation - - Inhaled Oxygen Concentration - - Weight 147.9 kg (326 lb) 04/18/2020 9:55 AM FIGURE CLERK Height 170.2 cm (5' 7 ) 04/18/2020 9:55 AM FIGURE CLERK Body Mass Index 51.06 04/18/2020 9:55 AM FIGURE CLERK documented in this encounter Patient Instructions * Patient Instructions* Karla Suresh MD - 04/18/2020 9:45 AM FIGURE CLERK Will call patient to discuss the filter. RE CLERK documented in this encounter Progress Notes * [...] many years ago when she lived in [place] and knows that she has to wear [...] ??? Cellulitis ??? CHF (congestive heart failure) ([facility]/HCC) ??? DVT (deep venous thrombosis) (CMS/HCC) [...] on phone: None Gets together: None Attends nondenominational service: None Active member of club or organization: None Attends meetings of clubs or organizations: None Relationship status: None ??? Intimate partner violence Fear of current or ex partner: None Emotionally abused: None Physically abused: None Forced sexual activity: None Other Topics Concern ??? None Social History Narrative Merged History Encounter Born and raised in [facility], no abuse during childhood, has masters [...] hospitalized for IV antibiotics. Karla Suresh MD RE CLERK documented in this encounter Miscellaneous Notes * Assessment & Plan Note - Karla Suresh MD - 04/20/2020 11:11 AM FIGURE CLERK Associated Problem(s): History of DVT (deep vein [...] of filters as they are permanent filters. RE CLERK * Assessment & Plan Note - Karla Suresh MD - 04/20/2020 11:10 AM FIGURE CLERK Associated Problem(s): Lymphedema of right lower extremity [...] get back into her pump right now. RE CLERK * Assessment & Plan Note - Karla Suresh MD - 04/20/2020 11:10 AM FIGURE CLERK Associated Problem(s): Hypertension Followed by her PCP and controlled on medications at this time. RE CLERK * Assessment & Plan Note - Karla Suresh MD - 04/20/2020 11:10 AM FIGURE CLERK Associated Problem(s): Hypothyroidism Followed by her PCP and controlled at this time. RE CLERK * Assessment & Plan Note - Karla Suresh MD - 04/20/2020 11:10 AM FIGURE CLERK Associated Problem(s): Cellulitis of right lower extremity Patient recently had an episode of cellulitis and was hospitalized for IV antibiotics. RE CLERK documented in this encounter Plan of Treatment Not on file documented as of this encounter Visit Diagnoses Diagnosis Lymphedema of right lower extremity- Primary DVT (deep venous thrombosis) ([facility]/HCC) ([facility]) Acute venous embolism and thrombosis of unspecified deep vessels of lower extremity Claudication ([facility]) Unspecified peripheral vascular disease Edema, unspecified type History of DVT (deep vein thrombosis) Essential hypertension Unspecified essential hypertension Acquired hypothyroidism Unspecified hypothyroidism Cellulitis of right lower extremity documented in this encounter Orders Outpatient Referral Count Last Ordered Date Fir st Ordered Date AMB REFERRAL TO VASCULAR SURGERY 1 04/18/19 documented in this encounter Care Teams High Pressure Kettle Operator Relationship Specialty Start Date End Date Haritha Tse NP PCP - General Internal Medicine 03/28/20 10/29/22 documented as of this encounter
--- OUTSIDE RECORDS SUMMARY | 2024-03-24 19:45 | XMS_ITS | Encounter Summary ---
Author Organization [facility] Care Team Providers Care Volunteer Services Supervisor Name Role Phone Unknown, Notinfile Unavailable Unavailable Gerard Sutton MD Primary Care Provider [phone] Encounter Details Date Type Department Care Team [...] on filedocumented in this encounter Care Teams Volunteer Services Supervisor Relationship Specialty Start Date End Date Gerard Sutotn MD PCP - General 11/21/18 03/27/20 Unknown, Notinfile 02/18/18 03/27/20 documented as of this encounter
--- OUTSIDE RECORDS SUMMARY | 2024-03-24 19:45 | XMS_ITS | Encounter Summary ---
Author Organization [facility] Address [address] [address] Care Team Providers Care Two Needle Machine Operator Name Role Phone Haritha Tse NP Primary Care Provider [phone] Reason for Referral * Procedure (Routine) - Closed Specialty Diagnoses / Procedures Referred By Contac t Referred To Contact Diagnoses Right knee pain, unspecified chronicity Left knee pain, unspecified chronicity Chronic pain of both knees Procedures Large Joint (Hip, Knee, Shoulder) Injection: R knee Prashant Blanc DO [address] [facility] [address] [place] [address] Phone: tel: fax: [facility] Referral ID Status Reason Start Date Expiration Date Visits Re quested Visits Authorized [id number] Closed 07/27/2020 08/26/2021 1 1 * Procedure (Routine) - Closed Specialty Diagnoses / Procedures Referred By Contac t Referred To Contact Diagnoses Right knee pain, unspecified chronicity Left knee pain, unspecified chronicity Chronic pain of both knees Procedures Large Joint (Hip, Knee, Shoulder) Injection: L knee Prashant Blanc DO [address] [facility] [address] [address] [place] [address] Phone: tel: fax: [facility] Referral ID Status Reason Start Date Expiration Date Visits Re quested Visits Authorized [id number] Closed 07/27/2020 08/26/2021 1 1 * Diagnostic Imaging (Routine) - Closed Specialty Diagnoses / Procedures Referred By Contac t Referred To Contact Diagnoses Left knee pain, unspecified chronicity Procedures XR Knee Left 3 Views Prashant Blanc DO [address] [place] [address] Phone: tel: fax: [address] [phone] Referral ID Status Reason Start Date Expiration Date Visits Re quested Visits Authorized [id number] Closed 07/27/2020 08/26/2021 1 1 * Diagnostic Imaging (Routine) - Closed Specialty Diagnoses / Procedures Referred By Contac t Referred To Contact Diagnoses Right knee pain, unspecified chronicity Procedures XR Knee Right 3 Views Prashant Blanc DO [address] [place] [address] Phone: tel: fax: [address] [phone] Referral ID Status Reason Start Date Expiration Date Visits Re quested Visits Authorized [id number] Closed 07/27/2020 08/26/2021 1 1 Reason for Visit * Reason Comments Pain Pain * Consultation (Routine) - Closed Specialty Diagnoses / Procedures Referred By Contac t Referred To Contact Orthopedic Surgery Diagnoses Chronic pain of both knees Haritha Tse NP Phone: tel: fax: [facility] Orthopedics and Sports Medicine [address] [place] [phone] Phone: tel: fax: Referral ID Status Reason Start Date Expiration Date V isits Requested Visits Authorized [id number] Closed Specialty Services Required 06/28/2020 07/28/2021 1 1 Encounter Details Date Type Department Care Team (Late st Contact Info) Description 07/27/2020 2:30 PM CDT Office Visit [facility] Orthopedics and Sports Medicine [address] [place] [address] [address] [place] [phone] Prashant Blanc DO [address] [place] [address] [address] [place] [address] Right knee pain, unspecified chronicity (Primary Dx); [...] history of Cellulitis, CHF (congestive heart failure) ([facility]), DVT (deep venous thrombosis) ([facility]), DVT (deep venous thrombosis) ([facility]), Hypertension, and Lymph edema. PAST SURGICAL HISTORY [...] referral to Orthopedic Surgery BMI 50.0-59.9, adult ([facility]) - Ambulatory referral to Internal Medicine; Future [...] Procedure Name Priority Date/Time Associated Diagnosis Comments MI ARTHROCENTESIS ASPIR&/INJ MAJOR JT/BURSA W/O US Routine 07/27/2020 2:30 PM CDT Right knee pain, unspecified chronicity Left knee pain, unspecified chronicity Chronic pain of both knees MI ARTHROCENTESIS ASPIR&/INJ MAJOR JT/BURSA W/O US Routine [...] ?? Age: 49 ?Sex: Female ? MR#: [id number] ?? Loc: ? RADIOLOGY REPORT ?? Order #[id number] ?? Radiology ? Knee LT 3 View [...] 8:54 AM ?? T: ? Report ID: [id number] ?? Reading Location: ??[id number] ? REPORT ELECTRONICALLY SIGNED IN OTHER VENDOR SYSTEM ?? Resulting Agency Comment O Procedure Note Rock Rivera MD - 07/28/2020 Patient Name: ENEIDA HAN Dr: Prashant BlancO.B: 1970 Exam Date: 07/27/20 143 Age: 49 Sex: Female MR#: [id number] Loc: RADIOLOGY REPORT Order #[id number] Radiology Knee LT 3 View (STANDARD) Signed [...] signed by Rock RUIZ T: Report ID: [id number] Reading Location: [place] [address] REPORT ELECTRONICALLY SIGNED IN OTHER VENDOR SYSTEM Prashant Blanc DO [facility] XR PROCEDURES Final Result * XR Knee Right 3 Views (07/27/2020 2:38 PM CDT) Anatomical Region Laterality Modality Lower Extremities, Knee Right Radiogra phic Imaging 07/28/2020 8:41 AM CDT Narrative 07/28/2020 8:54 AM CDT Patient Name: ENEIDA HAN ?Ordering Dr: Prashant Blanc DO ?? D.O.B: 1970 ? Exam Date: 07/27/20 ?? 1438 ?? Age: 49 ?Sex: Female ? MR#: [id number] ?? Loc: ? RADIOLOGY REPORT ?? Order #[id number] ?? Radiology ? Knee RT 3 View [...] 8:54 AM ?? T: ? Report ID: [id number] ?? Reading Location: ??[id number] ? REPORT ELECTRONICALLY SIGNED IN OTHER VENDOR SYSTEM ?? Resulting Agency Comment O Procedure Note Rock Rivera MD - 07/28/2020 Patient Name: ENEIDA HAN Dr: Prashant Blanc DO DBeaO.B: 1970 Exam Date: 07/27/20 143 Age: 49 Sex: Female MR#: [id number] Loc: RADIOLOGY REPORT Order #[id number] Radiology Knee RT 3 View (STANDARD) Signed [...] by Rock Miguel RUIZ T: Report ID: [id number] Reading Location: [place] [address] REPORT ELECTRONICALLY SIGNED IN OTHER VENDOR SYSTEM Prashant Blanc DO IMG XR PROCEDURES Final Result * MI ARTHROCENTESIS ASPIR&/INJ MAJOR JT/BURSA W/O US (07/27/2020 [...] procedure well with no immediate complications Result [facility] Prashant Blanc DO IN CLINIC/BEDSIDE ORDERABLES F inal Result * MI ARTHROCENTESIS ASPIR&/INJ MAJOR JT/BURSA W/O US (07/27/2020 [...] 2020 documented in this encounter Care Teams Two Needle Machine Operator Relationship Specialty Start Date End Date Haritha Tse NP PCP - General Internal Medicine 03/28/20 10/29/22 documented as of this encounter
--- OUTSIDE RECORDS SUMMARY | 2024-03-24 19:45 | XMS_ITS | Encounter Summary ---
Author Organization [facility] Healthcare Address [address] [place] [address] Care Team Providers Care Sr. Logistics Analyst Name Role Phone Unknown, Notinfile Unavailable Unavailable Gerard Sutton MD Primary Care Provider Reason for Visit * Reason Comments Dizziness Black or Bloody Stool Encounter Details Date Type Department Care Team (Latest Contact Info) Description 04/30/2019 1:12 PM SPECIALTY SALES REPRESENTATIVE - 04/30/2019 1:37 PM SPECIALTY SALES REPRESENTATIVE Surgery [facility] [address] [place] [address] Ozzie Pascual MD [address] [facility] [phone] [place] [address] ESOPHAGOGASTRODUODENOSCOPY CONTROL BLEED Surgery Details Date/Time Status Location OR Service Patient Class Case Class Case Type Trauma Case? 04/30/2019 1:12 PM [facility] Gastro[facility]ology Inpatient Elective Panel [...] Comments Blood Pressure 104/64 04/30/2019 1:00 PM SPECIALTY SALES REPRESENTATIVE Pulse 72 04/30/2019 1:35 PM SPECIALTY SALES REPRESENTATIVE Temperature 36 ??C (96.8 ??F) 04/30/2019 1:35 PM SPECIALTY SALES REPRESENTATIVE Respiratory Rate 20 04/30/2019 1:35 PM SPECIALTY SALES REPRESENTATIVE Oxygen Saturation 100% 04/30/2019 1:00 PM SPECIALTY SALES REPRESENTATIVE Inhaled Oxygen Concentration - - Weight 129.3 kg (285 lb) 04/29/2019 6:00 PM SPECIALTY SALES REPRESENTATIVE Height 170.2 cm (5' 7 ) 04/29/2019 6:00 PM SPECIALTY SALES REPRESENTATIVE Body Mass Index 46.55 04/30/2019 4:20 PM SPECIALTY SALES REPRESENTATIVE documented in this encounter Discharge Summaries * Lilian Cee MD - 05/02/2019 9:15 AM CST Inpatient Discharge Summary BRIEF OVERVIEW Admitting Provider: Ottoniel Ellis MD Discharge Provider: Molly Garcia MD Primary Care Physician at Discharge: Gerard Sutton MD [phone] Admission Date: 04/29/2019 Discharge Date: 05/02/2019 Admission Location: [facility] Primary Discharge Diagnosis: UGIB Secondary Discharge [...] ?? Pt was admitted to [facility] on 04/15/19 for two days of [...] tarry stools and she was admitted to [facility] on 04/15/2019. During her course at [...] dizzy. At this point she presented to [place] (on 04/29/2019). At [place], her Hb was measured as 5.6 and [...] levothyroxine. ?? CHF: 04/29/2019. CHF dx at [facility] in Feb 2019. Requested records from [facility]. Holding home metop and furosemide in setting [...] Full Discharge Instructions: You were seen at [facility] for a bleeding ulcer, while here [...] as: SYNTHROID Take 50 mcg by mouth driller and reamer before breakfast lisinopril 10 mg tablet Commonly [...] Information for Follow-ups DENNISE Shelton Specialty: Physician Sales Process Manager [address] [place] [address] Next Steps: Follow up Cosigned by Molly Garcia MD at 05/02/2019 11:57 AM SPECIALTY SALES REPRESENTATIVE IALTY SALES REPRESENTATIVE IALTY SALES REPRESENTATIVE documented in this encounter Discharge Instructions * Appointments* AnnM arie Mariano RN - 05/01/2019 2:23 PM SPECIALTY SALES REPRESENTATIVE This is the earliest available appointment with your PCP, Please bring discharge paperwork with list of medicines, insurance card and photo ID to appointment. Please arrive at least 15 minutes early prior to appointment. If you are unable to keep this appointment, it is very important you call to reschedule. IALTY SALES REPRESENTATIVE documented in this encounter Medications at Time [...] mcg tablet Take 50 mcg by mouth driller and reamer before breakfast 0 lisinopril (PRINIVIL,ZESTRI L) 10 [...] stools. Per pt, admitted to [facility] on 04/14 and d/c 04/24; sherequired [...] 2 units pRBC in ED. - Requested [facility] records - 2 Large bore IVs - [...] hypothyroidism and prescription of levothyroxine 50mcg. -Requested [facility] Records -Repeat TSH is 4.2, free T4 is 1.17 -Patient is Euthyroid, will start levothyroxine outpatient if needed ?? Congestive heart failure (CHF) ([facility]) Assessment & Plan Per patient, recently diagnosed at [facility] (02/2019). - Requested [facility] Records to be faxed over - [...] Molly Garcia MD at 05/02/2019 12:01 PM SPECIALTY SALES REPRESENTATIVE IALTY SALES REPRESENTATIVE IALTY SALES REPRESENTATIVE Associated attestation - Molly Garcia MD - 05/02/2019 12:01 PM SPECIALTY SALES REPRESENTATIVE I have seen and examined the patient [...] Results (from the past 24 hour(s)) POCT [id number]-R-[id number]-GLU-HCT, WB - ISTAT Collection Time: 04/30/19 2:13 PM Result Value Ref Range Hct, POC 25.0 (L) 35.6 - 45.5 % POCT hCG, urine Collection Time: 04/30/19 2:15 PM Result Value Ref Range HCG, ur, POC Negative Lot Number [id number] QC Backgroud Clear Acceptable QC Control Line [...] through Saturday from 0800 to 1700 at [phone]. From 1700 to 0800 Saturday through Saturday and all day Saturday/Saturday, we can be reached at [phone]. IALTY SALES REPRESENTATIVE * Lilian Cee MD - 05/01/2019 9:31 [...] stools. Per pt, admitted to [facility] on 04/14 and d/c 04/24; sherequired [...] 2 units pRBC in ED. - Requested [facility] records - 2 Large bore IVs - [...] hypothyroidism and prescription of levothyroxine 50mcg. -Requested [facility] Records -Repeat TSH is 4.2, free T4 is 1.17 -Patient is Euthyroid, will start levothyroxine outpatient if needed Congestive heart failure (CHF) ([facility]) Assessment & Plan Per patient, recently diagnosed at [facility] (02/2019). - Requested [facility] Records to be faxed over - [...] Molly Garcia MD at 05/01/2019 10:44 AM SPECIALTY SALES REPRESENTATIVE IALTY SALES REPRESENTATIVE IALTY SALES REPRESENTATIVE Associated attestation - Molly Garcia MD - 05/01/2019 10:44 AM SPECIALTY SALES REPRESENTATIVE I have seen and examined the patient [...] info (name, phone, availablity) Jose Willis (son) [phone] Home Care Services No Durable Medical Equipment [...] Information/Options Discussed: Explained role and purpose of case advocate role. Demographics verified with face sheet. Plan Includes: Establish a safe discharge. Insurance verified as: Bartolo FOX PCP verified as: DENNISE Esparza at [facility] -[phone] Transportation: family Admit Source: ED from home [...] needs after 4:30 pm, please call the vending machine filler . For weekend/holiday needs from 8:00a.m. - 4:30p.m., please call the Weekend [employer] Operator . IALTY SALES REPRESENTATIVE documented in this encounter H&P Notes * [...] melena. Pt was admitted to [facility] on 04/15/19 for two days of [...] PM Result Value Ref Range Product code [id number] Unit Number [id number] Product Blood Type OPOS Dispense Status ISSUED Product code [id number] Unit Number [id number] Product Blood Type OPOS Dispense Status ISSUED [...] stools. Per pt, admitted to [facility] on 04/14 and d/c 04/24; sherequired [...] 2 units pRBC in ED. - Requested [facility] records - 2 Large bore IVs - NPO for EGD - Q8H CBCs, T&S, consented - Transfuse for Hgb<7 - IV protonix BID - Monitor on Telemetry - avoid NSAIDs, ASA, anticoagulants Hypothyroidism Assessment & Plan Pt with reported new diagnosis of hypothyroidism and prescription of levothyroxine 50mcg. -Requested [facility] Records -Repeat TSH -Will start home levothyroxine pending TSH Congestive heart failure (CHF) ([facility]) Assessment & Plan Per patient, recently diagnosed at [facility] (02/2019). - Requested [facility] Records to be faxed over - [...] Internal Medicine, PGY1 Addendum: Records received from [facility]. EGD 04/19/19: demonstrated 1cm small anastomotic ulcer [...] Molly Garcia MD at 04/30/2019 4:17 PM SPECIALTY SALES REPRESENTATIVE IALTY SALES REPRESENTATIVE IALTY SALES REPRESENTATIVE IALTY SALES REPRESENTATIVE IALTY SALES REPRESENTATIVE Associated attestation - Molly Garcia MD - 04/30/2019 4:17 PM SPECIALTY SALES REPRESENTATIVE I have seen and examined the patient on 04/30/19. I agree with the findings and plan of care as documented in the resident's/fellow's note. I reviewed prior records from [facility] which are summarized in this note. Recently admitted to [facility] 04/15-04/24 for melena, found to have anastomotic [...] RN Plan: Follow up: Radha Barr RN IALTY SALES REPRESENTATIVE Ozzie Basilio MD - 04/30/2019 2:21 PM CSTAssociated Order(s): EGD [facility] Patient Name: Tiarra Addison Procedure Date: 04/30/2019 2:21 PM Date of : 1970 Admit Type: Outpatient Age: 48 Gender: Female Attending MD: Ozzie Pascual M.D. Room: [facility] OR POD 5 ROOM 224 Note [...] passed under direct vision. The GIF [id number] endoscope was introduced through the mouth, and [...] On: 04/30/2019 2:21 PM Recognized by the [employer] for promoting quality in endoscopy IALTY SALES REPRESENTATIVE documented in this encounter Consult Notes * [...] anemia. The patient was recently admitted to [facility] on 04/15/19. She presented complaining of dark [...] to EDfor evaluation so she came to [place]. On arrival to ED she was HDS. [...] ??? Cellulitis ??? CHF (congestive heart failure) ([facility]) ??? DVT (deep venous thrombosis) (CMS/HCC) ??? [...] Merged History Encounter Born and raised in [place] [facility], no abuse during childhood, has masters [...] PM Result Value Ref Range Product code [id number] Unit Number [id number] Product Blood Type OPOS Dispense Status ISSUED Product code [id number] Unit Number [id number] Product Blood Type OPOS Dispense Status ISSUED [...] through Saturday from 0800 to 1700 at [phone]. From 1700 to 0800 Saturday through Saturday and all day Saturday/Saturday, we can be reached at [phone]. Cosigned by Ozzie Pascual MD at 05/02/2019 7:10 PM SPECIALTY SALES REPRESENTATIVE IALTY SALES REPRESENTATIVE IALTY SALES REPRESENTATIVE Associated attestation - Ozzie Pascual MD - 05/02/2019 7:10 PM SPECIALTY SALES REPRESENTATIVE I have seen and examined the patient on 04/30/19. I agree with the findings and plan of care as documented in the resident's/fellow's note. documented in this encounter ED Notes * Soo Basilio RN - 04/30/2019 10:45 AM CST Bed: OBS-10 Expected date: Expected time: Means of arrival: Comments: em 3 pt Soo Basilio RN 04/30/19 1045 IALTY SALES REPRESENTATIVE * Phil Morillo MD - 04/29/2019 10:40 [...] Attending Emergency Physician Phil Morillo MD 04/29/19 2247 IALTY SALES REPRESENTATIVE * Phil Morillo MD - 04/29/2019 7:46 PM CST HPI Chief Complaint Patient presents with ??? Dizziness ??? Black or Bloody Stool 47 year old female with HTN, PSA, chronic lymphedema and DVT (on xarelto), here with bloody stools x2 weeks. She was seen at [facility] at initial bloody stool onset, described as [...] (CMS/HCC) 02/04/2018 ??? Dementia associated with alcoholism ([facility]/HCC) 02/04/2018 ??? Cognitive and behavioral changes 02/04/2018 ??? History of DVT (deep vein thrombosis) 02/04/2018 ??? Chronic acquired lymphedema 02/04/2018 ??? Hypertension 02/04/2018 ??? Anemia 02/04/2018 ??? Polysubstance abuse (CMS/HCC) 02/04/2018 Past Medical History: Diagnosis Date ??? Cellulitis ??? CHF (congestive heart failure) (CMS/HCC) ??? DVT (deep venous thrombosis) ([facility]) ??? Hypertension ??? Lymph edema Past Surgical [...] Merged History Encounter Born and raised in [facility] [place] [facility], no abuse during childhood, has masters [...] resident. By: Glory Palafox MD Time: 04/30 2371 Comment: GI is aware of patient. Will [...] 04/29/19 2312 Phil Morillo MD 04/30/19 1141 IALTY SALES REPRESENTATIVE IALTY SALES REPRESENTATIVE * Lotus Faustin RN - 04/29/2019 7:45 PM CST Bed: ED1-09 Expected date: Expected time: Means of arrival: Ambulance Comments: Lotus Faustin RN 04/29/191944 IALTY SALES REPRESENTATIVE * Phylicia Zuluaga RN - 04/29/2019 6:02 PM CST Recently seen at [facility] for GI bleed. Had to get 5 blood transfusions. Had scope and found ulcer in upper GI but states ultimately could not find the source of the bleeding. Still havingblack stools. No vomiting. Also reports hemoglobin 7.3 when she was dc'd from OSH. Reports feeling dizzy and faint today, checked BP at home and was 90/40. IALTY SALES REPRESENTATIVE documented in this encounter Miscellaneous Notes * [...] avoided or minimized Outcome: Adequate for Discharge IALTY SALES REPRESENTATIVE * Plan of Care - Seema Lam [...] otherwise as charted. Will continue to monitor. IALTY SALES REPRESENTATIVE * Plan of Care - Cecil David [...] decrease to 7.9. Will continue to monitor. IALTY SALES REPRESENTATIVE * Hospital Course - Jesse Xiao - 05/01/2019 10:52 AM CST Tiarra Addison is a 48 y.o. F w/ history of GBP (kay-en-Y in 1999), PE/DVT s/p IVC filter placementand on Xarelto (last taken on 04/13/2019). Pt's melena started on 04/13/2019. She noticed she was having black and tarry stools and she was admitted to [facility] on 04/15/2019. During her course at [...] dizzy. At this point she presented to [place] (on 04/29/2019). At [place], her Hb was measured as 5.6 and [...] levothyroxine. ?? CHF: 04/29/2019. CHF dx at [facility] in Feb 2019. Requested records from [facility]. Holding home metop and furosemide in setting of volume loss. ?? VTE Hx: 04/29/2019: VTE last July. Patient held her own Xarelto in s/o melena starting 04/13/2019.SCDs for prevention. IALTY SALES REPRESENTATIVE IALTY SALES REPRESENTATIVE IALTY SALES REPRESENTATIVE IALTY SALES REPRESENTATIVE IALTY SALES REPRESENTATIVE IALTY SALES REPRESENTATIVE * Medical Student - Jesse Xiao - [...] 0.9%, 30 mL/hr, Last Rate: Stopped (04/30/19 7377) PRN Medications: morphine ??? ondansetron ??? ramelteon [...] home levothyroxine CHF: - Recently dx at [facility] in Feb 2019. - requested records from [facility] - Hold home metop and furosemide in setting of volume loss. VTE Hx: - VTE last July - Hold Xarelto in s/o bleed - SCDs for prevention. Code Status: Full Code Diet: Adult Diet Restricted; 2 GM Sodium DVT Prophylaxis: use SCDs for prevention. Jesse Xiao 05/01/2019 10:44 AM Cosigned by Norberto Hickey MD at 05/01/2019 1:31 PM SPECIALTY SALES REPRESENTATIVE IALTY SALES REPRESENTATIVE IALTY SALES REPRESENTATIVE * Plan of Care - Rosalia Royal [...] morphine for pain, will continue to monitor. IALTY SALES REPRESENTATIVE * Plan of Care - Cecil David [...] Progressing Goals: Clinical Goals for the Shift: [place] to unit, pain control Summary: The patient's assessment and admission process were completed. The patient's prn pain med was administered for pain. IALTY SALES REPRESENTATIVE * Medical Student - Jesse Xiao - 04/30/2019 2:43 PM CST Med Firm Daily Progress Subjective Reason for admission: Melena Interval History: Background: Pt is a 48 y.o. F w/ history of GBP (kay-en-Y in 1999), PE/DVT s/p IVC filter placement and on Xarelto. Pt's melena started on 04/15/2019. She noticed she was having black and tarry stools and she was admitted to [facility] at that time. During her course [...] felt dizzy. At thispoint she presented to [place] (yesterday). She also had new epigastric pain [...] has never before had melena. s At [place], her Hb was measured as 5.6 and [...] home levothyroxine CHF: - Recently dx at [facility] in Feb 2019. - requested records from [facility] - Hold home metop and furosemide in setting of volume loss. VTE Hx: - VTE last July - Hold Xarelto in s/o bleed - SCDs for prevention. Code Status: Full Code Diet: NPO Diet DVT Prophylaxis: use SCDs for prevention. Jesse Xiao 04/30/2019 2:43 PM Cosigned by Norberto Hickey MD at 04/30/2019 3:34 PM SPECIALTY SALES REPRESENTATIVE IALTY SALES REPRESENTATIVE IALTY SALES REPRESENTATIVE IALTY SALES REPRESENTATIVE * ED Observation Provider Note - Nicolle [...] Cecil Carver MD at 05/01/2019 9:19 PM SPECIALTY SALES REPRESENTATIVE IALTY SALES REPRESENTATIVE IALTY SALES REPRESENTATIVE Associated attestation - Cecil Carver MD - 05/01/2019 9:19 PM SPECIALTY SALES REPRESENTATIVE I have seen and examined the patient on 04/29/2019 in conjunction with DENNISE Galo My findings and recommendations are to continue the infusion of blood and admit for EGD * ED Re-evaluation Note - Scout Santana MD - 04/30/2019 7:06 AM SPECIALTY SALES REPRESENTATIVE ED Re-evaluation TRANSITION OF CARE: I, Scout [...] Will By: Glory Palafox MD Time: 04/29 007 Comment: Signout given to floor team. Patient signed out to Dr. Bartlett, on coming ED resident. By: Glory Palafox MD Time: 04/30 2514 Comment: is aware of patient. Will plan for EGD today. By: Scout Santana MD Time: 04/30 1032 Comment: Patient is getting 3rd unit of blood. is planning on scoping patient afterwards. By: Scout Santana MD Time: 04/30 1118 Comment: Pt scheduled for EGD today. Currently receiving unit of blood. Denies dizziness currently. By: DENNISE Ricketts MD Resident 05/01/19 1722 IALTY SALES REPRESENTATIVE * Assessment & Plan Note - Cari Landers MD - 04/30/2019 5:31 AM SPECIALTY SALES REPRESENTATIVE Associated Problem(s): Acute blood loss anemia Hgb to 5.6 in the setting of melenic stools. S/p 2u pRBC in ED. -q8h CBC, T&S, consented -further management as listed under upper GI bleed IALTY SALES REPRESENTATIVE IALTY SALES REPRESENTATIVE * Assessment & Plan Note - Cari Landers MD - 04/30/2019 2:23 AM SPECIALTY SALES REPRESENTATIVE Associated Problem(s): Acute upper GI bleed 2 week hx melenic stools. Per pt, admitted to [facility] on 04/14 and d/c 04/24; sherequired [...] 2 units pRBC in ED. - Requested [facility] records - 2 Large bore IVs - NPO for EGD - Q8H CBCs, T&S, consented - Transfuse for Hgb<7 - IV protonix BID - Monitor on Telemetry - avoid NSAIDs, ASA, anticoagulants IALTY SALES REPRESENTATIVE IALTY SALES REPRESENTATIVE IALTY SALES REPRESENTATIVE IALTY SALES REPRESENTATIVE * Assessment & Plan Note - Cari Landers MD - 04/30/2019 2:21 AM SPECIALTY SALES REPRESENTATIVE Associated Problem(s): Hypothyroidism Pt with reported new diagnosis of hypothyroidism and prescription of levothyroxine 50mcg. -Requested [facility] Records -Repeat TSH -Will start home levothyroxine pending TSH IALTY SALES REPRESENTATIVE * Assessment & Plan Note - Cari Landers MD - 04/30/2019 2:20 AM SPECIALTY SALES REPRESENTATIVE Associated Problem(s): Congestive heart failure (CHF) (CMS/HCC) (HCC) Per patient, recently diagnosed at [facility] (02/2019). - Requested [facility] Records to be faxed over - Hold home metop XL and furosemide IALTY SALES REPRESENTATIVE * Assessment & Plan Note - Cari Landers MD - 04/30/2019 2:19 AM SPECIALTY SALES REPRESENTATIVE Associated Problem(s): Hypertension Reviewed patient's medication bottles at bedside. Currently takes lisinopril 10mg, hydrochlorothiazide (HCTZ) 25mg, metop xl 25mg, furosemide 40mg daily. -Hold home BP meds due to normotension and GIB IALTY SALES REPRESENTATIVE * Assessment & Plan Note - Cari Landers MD - 04/30/2019 2:18 AM SPECIALTY SALES REPRESENTATIVE Associated Problem(s): History of DVT (deep vein thrombosis) Prior DVTs/PEs. S/p IVC filter placement. On Xarelto at home, last dose reportedly around ~04/15/19, as she stopped this medication around the time she started developing melenic stools. - Hold Xarelto iso bleed - SCDs IALTY SALES REPRESENTATIVE * ED Procedure Note - Re Montez [...] 04/30/19 0106 Re Montez MD 04/30/19 0731 IALTY SALES REPRESENTATIVE IALTY SALES REPRESENTATIVE IALTY SALES REPRESENTATIVE * ED Procedure Note - Angely Hou MD - 04/29/2019 11:49 PM SPECIALTY SALES REPRESENTATIVE Associated Order(s): Peripheral line insertion Procedure Peripheral [...] immediate complications Angely Hou MD Resident 04/29/19 3627 Cosigned by Re Montez MD at 04/30/2019 6:48 AM SPECIALTY SALES REPRESENTATIVE IALTY SALES REPRESENTATIVE IALTY SALES REPRESENTATIVE * ED Re-evaluation Note - Christina Bartlett MD - 04/29/2019 10:45 PM SPECIALTY SALES REPRESENTATIVE ED Re-evaluation TRANSITION OF CARE: I, Christina [...] MD Christina Bah MD Resident 04/30/19 0721 IALTY SALES REPRESENTATIVE * ED Procedure Note - Phil Morillo MD - 04/29/2019 10:41 PM SPECIALTY SALES REPRESENTATIVE Associated Order(s): Critical Care Procedure Critical Care [...] the medical record. Phil Morillo MD 04/29/19 2280 IALTY SALES REPRESENTATIVE * ED Procedure Note - Angely Hou MD - 04/29/2019 10:10 PM SPECIALTY SALES REPRESENTATIVE Associated Order(s): Peripheral line insertion Procedure Peripheral [...] without difficulty Angely Hou MD Resident 04/29/19 5312 Cosigned by Phil Morillo MD at 04/30/2019 11:18 AM SPECIALTY SALES REPRESENTATIVE IALTY SALES REPRESENTATIVE IALTY SALES REPRESENTATIVE Associated attestation - Phil Morillo MD - 04/30/2019 11:18 AM SPECIALTY SALES REPRESENTATIVE I was present for the entire procedure * ED Procedure Note - Angely Hou MD - 04/29/2019 8:26 PM SPECIALTY SALES REPRESENTATIVE Associated Order(s): Peripheral line insertion Procedure Peripheral [...] Phil Morillo MD at 04/30/2019 11:18 AM SPECIALTY SALES REPRESENTATIVE IALTY SALES REPRESENTATIVE IALTY SALES REPRESENTATIVE Associated attestation - Phil Morillo MD - 04/30/2019 11:18 AM SPECIALTY SALES REPRESENTATIVE I was present for the entire procedure documented in this encounter Plan of Treatment Not on file documented as of this encounter Procedures Procedure Name Priority Date/Time Associated Diagnosis Comments CBC WITHOUT DIFFERENTIAL Timed 11:46 PM SPECIALTY SALES REPRESENTATIVE CBC WITHOUT DIFFERENTIAL Timed 020 4:37 PM SPECIALTY SALES REPRESENTATIVE BASIC METABOLIC PANEL Routine 05/01/2019 4:37 PM SPECIALTY SALES REPRESENTATIVE CBC WITHOUT DIFFERENTIAL Timed 8:00 AM SPECIALTY SALES REPRESENTATIVE THYROID FUNCTION CASCADE Routine 10:38 PM SPECIALTY SALES REPRESENTATIVE CBC WITHOUT DIFFERENTIAL Timed 10:38 PM SPECIALTY SALES REPRESENTATIVE T4, FREE Routine 04/30/2019 10:38 PM SPECIALTY SALES REPRESENTATIVE BASIC METABOLIC PANEL Routine 04/30/2019 10:38 PM SPECIALTY SALES REPRESENTATIVE SURGICAL PATHOLOGY Routine 04/30/2019 2:36 PM SPECIALTY SALES REPRESENTATIVE Gastrointestina l hemorrhage with melena EGD 04/30/2019 2:21 PM SPECIALTY SALES REPRESENTATIVE ESOPHAGOGASTRODUODENOSCOPY CONTROL BLEED 04/30/2019 2:20 PM SPECIALTY SALES REPRESENTATIVE Gastrointestina l hemorrhage with melena POCT HCG, URINE Routine 04/30/2019 2:15 PM SPECIALTY SALES REPRESENTATIVE POCT [id number]-[id number]-GLU-HCT,WB - ISTAT Routine 04/30/2019 2:13 PM SPECIALTY SALES REPRESENTATIVE TRANSFUSE RED BLOOD CELLS Timed 2019 10:30 AM SPECIALTY SALES REPRESENTATIVE PREPARE RBC Timed 04/30/2019 9:00 AM SPECIALTY SALES REPRESENTATIVE DIFFERENTIAL AUTO Routine 04/30/2019 8:05 AM SPECIALTY SALES REPRESENTATIVE CBC WITH AUTO DIFFERENTIAL Routine 04/30 8:05 AM SPECIALTY SALES REPRESENTATIVE TRANSFUSE RED BLOOD CELLS Timed 2019 2:10 AM SPECIALTY SALES REPRESENTATIVE ED PERIPHERAL LINE INSERTION Routine 1:06 AM SPECIALTY SALES REPRESENTATIVE TRANSFUSE RED BLOOD CELLS Timed 2019 12:45 AM SPECIALTY SALES REPRESENTATIVE ED PERIPHERAL LINE INSERTION Routine 11:49 PM SPECIALTY SALES REPRESENTATIVE XR ABDOMEN ERECT AND OR DECU BITS 2 VIEWS ED 04/29/2019 10:46 PM SPECIALTY SALES REPRESENTATIVE MA CRITICAL CARE ILL/INJURED PATIENT INIT 30-74 MIN Routine 04/29/2019 10:41 PM SPECIALTY SALES REPRESENTATIVE ED PERIPHERAL LINE INSERTION Routine 10:10 PM SPECIALTY SALES REPRESENTATIVE B CHECK SAMPLE STAT 04/29/2019 9:36 PM SPECIALTY SALES REPRESENTATIVE PREPARE RBC Timed 04/29/2019 9:10 PM SPECIALTY SALES REPRESENTATIVE POCT LACTATE - DEVICE Routine 04/29/2019 8:39 PM SPECIALTY SALES REPRESENTATIVE DIFFERENTIAL AUTO STAT 04/29/2019 8:32 PM SPECIALTY SALES REPRESENTATIVE CBC WITH AUTO DIFFERENTIAL STAT 04/29 8:32 PM SPECIALTY SALES REPRESENTATIVE APTT STAT 04/29/2019 8:32 PM SPECIALTY SALES REPRESENTATIVE PROTIME-INR STAT 04/29/2019 8:32 PM SPECIALTY SALES REPRESENTATIVE TYPE AND SCREEN STAT 04/29/2019 8:32 PM SPECIALTY SALES REPRESENTATIVE HAPTOGLOBIN STAT 04/29/2019 8:32 PM SPECIALTY SALES REPRESENTATIVE HEPATIC FUNCTION PANEL STAT 0 8:32 PM SPECIALTY SALES REPRESENTATIVE BASIC METABOLIC PANEL STAT 04/29/2019 8:32 PM SPECIALTY SALES REPRESENTATIVE ED PERIPHERAL LINE INSERTION Routine 8:26 PM SPECIALTY SALES REPRESENTATIVE documented in this encounter Results * (ABNORMAL) CBC without differential (05/01/2019 11:46 PM SPECIALTY SALES REPRESENTATIVE) WBC 6.9 3.8 - 9.9 K/cumm [facility] Hgb 8.2(L) 11.9 - 15.5 g/dL [facility] Hct 27.0(L) 35.6 - 45.5 % [facility] Plt 296 150 - 400 K/cumm [facility] MPV 9.9 9.1 - 12.3 fL [facility] RBC 2.93(L) 3.90 - 5.20 M/cumm [facility] MCV 92.2 81.3 - 96.4 fL [facility] MCH 28.0 27.1 - 33.3 pg [facility] MCHC 30.4(L) 32.3 - 35.7 g/dL [facility] RDW CV 19.3(H) 11.1 - 14.9 % [facility] RDW SD 59.0(H) 35.7 - 48.1 fL [facility] NRBC abs 0.00 0.00 - 0.01 K/cumm [facility] Blood specimen (specimen) 05/01/2019 11:46 PM SPECIALTY SALES REPRESENTATIVE 05/02/2019 12:05 AM SPECIALTY SALES REPRESENTATIVE Re Montez MD LAB BLOOD ORDERABLES Final R esult [facility] [place] [address] * Basic metabolic panel (05/01/2019 4:37 PM SPECIALTY SALES REPRESENTATIVE) Sodium 141 135 - 145 mmol/L [facility] Potassium, pl 4.6 3.3 - 4.9 mmol/L [facility] Chloride 110 97 - 110 mmol/L [facility] CO2 25 22 - 32 mmol/L [facility] Anion gap 6 2 - 15 mmol/L [facility] BUN 11 8 - 25 mg/dL [facility] Creatinine 0.90 0.60 - 1.10 mg/dL [facility] Glucose 87 70 - 199 mg/dL [facility] Comment: Interpretive Data Fasting glucose >/= [...] 2017. Calcium 9.0 8.5 - 10.3 mg/dL [facility] Blood specimen (specimen) 05/01/2019 4:37 PM SPECIALTY SALES REPRESENTATIVE 05/01/2019 4:46 PM SPECIALTY SALES REPRESENTATIVE Re Montez MD LAB BLOOD ORDERABLES Final R esult Performing Organization Address [facility]/ZIP Co de Phone Number [facility] [place] [address] * (ABNORMAL) CBC without differential (05/01/2019 4:37 PM SPECIALTY SALES REPRESENTATIVE) Pathologist [facility] WBC 7.0 3.8 - 9.9 K/cumm [facility] Hgb 7.8(L) 11.9 - 15.5 g/dL [facility] Hct 25.2(L) 35.6 - 45.5 % [facility] Plt 268 150 - 400 K/cumm [facility] MPV 9.9 9.1 - 12.3 fL [facility] RBC 2.74(L) 3.90 - 5.20 M/cumm [facility] MCV 92.0 81.3 - 96.4 fL [facility] MCH 28.5 27.1 - 33.3 pg [facility] MCHC 31.0(L) 32.3 - 35.7 g/dL [facility] RDW CV 19.0(H) 11.1 - 14.9 % [facility] RDW SD 59.3(H) 35.7 - 48.1 fL [facility] NRBC abs 0.00 0.00 - 0.01 K/cumm [facility] Blood specimen (specimen) 05/01/2019 4:37 PM SPECIALTY SALES REPRESENTATIVE 05/01/2019 4:46 PM SPECIALTY SALES REPRESENTATIVE Re Montez MD LAB BLOOD ORDERABLES Final R esult [facility] [place] [address] * (ABNORMAL) CBC without differential (05/01/2019 8:00 AM SPECIALTY SALES REPRESENTATIVE) [facility] WBC 7.2 3.8 - 9.9 K/cumm [facility] Hgb 7.9(L) 11.9 - 15.5 g/dL [facility] Hct 26.3(L) 35.6 - 45.5 % [facility] Plt 285 150 - 400 K/cumm [facility] MPV 10.1 9.1 - 12.3 fL [facility] RBC 2.87(L) 3.90 - 5.20 M/cumm [facility] MCV 91.6 81.3 - 96.4 fL [facility] MCH 27.5 27.1 - 33.3 pg [facility] MCHC 30.0(L) 32.3 - 35.7 g/dL [facility] RDW CV 18.9(H) 11.1 - 14.9 % [facility] RDW SD 58.8(H) 35.7 - 48.1 fL [facility] NRBC abs 0.00 0.00 - 0.01 K/cumm [facility] Blood specimen (specimen) 05/01/2019 8:00 AM SPECIALTY SALES REPRESENTATIVE 05/01/2019 10:51 AM SPECIALTY SALES REPRESENTATIVE us Re Montez MD LAB BLOOD ORDERABLES Final R esult Performing Organization Address City/State/[facility] Co de Phone Number [facility] [place] [address] * T4, free (04/30/2019 10:38 PM SPECIALTY SALES REPRESENTATIVE) [facility] Free T4 1.17 0.90 - 1.70 ng/dL [facility] Blood specimen (specimen) 04/30/2019 10:38 PM SPECIALTY SALES REPRESENTATIVE 04/30/2019 10:49 PM SPECIALTY SALES REPRESENTATIVE Narrative [facility] - 04/30/2019 11:57 PM SPECIALTY SALES REPRESENTATIVE This test was reflexed from a TSH result. Re Montez MD LAB BLOOD ORDERABLES Final R esult Performing Organization Address City/[facility]/ZIP Co de Phone Number [facility] [place] [address] * Basic metabolic panel (04/30/2019 10:38 PM SPECIALTY SALES REPRESENTATIVE) Pathologist [facility] Sodium 140 135 - 145 mmol/L [facility] Potassium, pl 4.0 3.3 - 4.9 mmol/L [facility] Chloride 108 97 - 110 mmol/L [facility] CO2 24 22 - 32 mmol/L [facility] Anion gap 8 2 - 15 mmol/L [facility] BUN 11 8 - 25 mg/dL [facility] Creatinine 0.86 0.60 - 1.10 mg/dL [facility] Glucose 93 70 - 199 mg/dL [facility] Comment: Interpretive Data Fasting glucose >/= [...] 2017. Calcium 9.1 8.5 - 10.3 mg/dL [facility] Blood specimen (specimen) 04/30/2019 10:38 PM SPECIALTY SALES REPRESENTATIVE 04/30/2019 10:49 PM SPECIALTY SALES REPRESENTATIVE Re Montez MD LAB BLOOD ORDERABLES Final R esult Performing Organization Address City/[facility]/ZIP Co de Phone Number [facility] [place] [address] * (ABNORMAL) CBC without differential (04/30/2019 10:38 PM SPECIALTY SALES REPRESENTATIVE) Pathologist [facility] WBC 8.9 3.8 - 9.9 K/cumm [facility] Hgb 8.6(L) 11.9 - 15.5 g/dL [facility] Hct 28.0(L) 35.6 - 45.5 % [facility] Plt 304 150 - 400 K/cumm [facility] MPV 10.0 9.1 - 12.3 fL [facility] RBC 3.06(L) 3.90 - 5.20 M/cumm [facility] MCV 91.5 81.3 - 96.4 fL [facility] MCH 28.1 27.1 - 33.3 pg [facility] MCHC 30.7(L) 32.3 - 35.7 g/dL [facility] RDW CV 19.0(H) 11.1 - 14.9 % [facility] RDW SD 58.1(H) 35.7 - 48.1 fL [facility] NRBC abs 0.00 0.00 - 0.01 K/cumm [facility] Blood specimen (specimen) 04/30/2019 10:38 PM SPECIALTY SALES REPRESENTATIVE 04/30/2019 10:49 PM SPECIALTY SALES REPRESENTATIVE Re Montez MD LAB BLOOD ORDERABLES Final R esult Performing Organization Address City/[facility]/ZIP Co de Phone Number [facility] [place] [address] * (ABNORMAL) TSH reflex to free T4 (04/30/2019 10:38 PM SPECIALTY SALES REPRESENTATIVE) Pathologist [facility] TSH 4.24(H) 0.30 - 4.20 mcIUnit/mL [facility] Blood specimen (specimen) 04/30/2019 10:38 PM SPECIALTY SALES REPRESENTATIVE 04/30/2019 10:49 PM SPECIALTY SALES REPRESENTATIVE Re Montez MD LAB BLOOD ORDERABLES Final R esult [facility] [place] [address] * Surgical pathology (04/30/2019 2:36 PM SPECIALTY SALES REPRESENTATIVE) Tissue (Gastric/Stomach biopsy) 04/30/2019 2:36 PM SPECIALTY SALES REPRESENTATIVE Narrative PATHOLOGY [facility] - 05/04/2019 5:11 PM SPECIALTY SALES REPRESENTATIVE EPIC results best viewed via link to PDF [facility] [place] [address] SURGICAL PATHOLOGY REPORT FINAL Patient Name: ?? TIARRA ADDISON Gender: ??F : ??1970 (Age: 48) Address: ??[address] [place], [place] ??[address] Hospital #: ??[id number] Taken:04/30/2019 Received:04/30/2019 Reported: 05/04/2019 Patient Type: [facility] Inpatient ?? Service: Internal Medicine Location: [place] [address] Physician(s): ??Simon Rodríguez M.D. Diagnosis: A. ??Stomach, [...] and/04/30/2019 16:44 PA(s): Matti Gregory MS, PA ([facility]) By this signature, I attest that the above diagnosis is based upon my personal examination of the slides(and/or other material). The performance characteristics of some immunohistochemical stains, fluorescence in-situ hybridization tests and immunophenotyping by flow cytometry cited in this report (if any) were determined by the Surgical Pathology Department at [facility] as part of an ongoing software quality test engineer program and in compliance with federally mandated [...] determined by the Surgical Pathology Department of [facility]. ??It has not been cleared or approved by the U. S. Food and Drug Administration. IMAGES AND SCANNED DOCUMENTS, IF INCLUDED, ONLY VIEWABLE IN PDF VERSION OF REPORT Ozzie Pascual MD LAB PATHOLOGY ORDERABLES Final Result PATHOLOGY [facility] 3rd Floor [place], [place] [phone] * EGD (04/30/2019 2:21 PM SPECIALTY SALES REPRESENTATIVE) Anatomical Region Laterality Modality Other Narrative Procedure Note Ozzie Pascual MD - 04/30/2019 2:21 PM [facility] Patient Name: Tiarra Addison Procedure Date: 04/30/2019 2:21 PM Date of : 1970 Admit Type: Outpatient Age: 48 Gender: Female Attending MD: Ozzie Pascual M.D. Room: [facility] OR POD 5 ROOM 224 Note [...] The scope was passed under direct vision. [facility] [id number] endoscope was introduced through the mouth, and [...] On: 04/30/2019 2:21 PM Recognized by the [employer] for promoting quality in endoscopy us Ozzie Pascual MD ENDOSCOPY PROCEDURES Fin al Result * POCT hCG, urine (04/30/2019 2:15 PM SPECIALTY SALES REPRESENTATIVE) HCG, ur, POC Negative Lot Number [id number] QC Backgroud Clear Acceptable QC Control Line Acceptable Urine 04/30/2019 2:15 PM SPECIALTY SALES REPRESENTATIVE Ozzie Pascual MD POINT OF CARE TEST ORDER ED Final Result * (ABNORMAL) POCT [id number], WB - ISTAT (04/30/2019 2:13 PM SPECIALTY SALES REPRESENTATIVE) Hct, POC 25.0(L) 35.6 - 45.5 % [facility] Blood specimen (specimen) 04/30/2019 2:13 PM SPECIALTY SALES REPRESENTATIVE 04/30/2019 2:13 PM SPECIALTY SALES REPRESENTATIVE Ozzie Pascual MD LAB POCT ORDERABLES - DE VICE Final Result Performing Organization Address [facility]/ZIP Co de Phone Number [facility] [place] [address] * Transfuse RBC (04/30/2019 12:34 PM SPECIALTY SALES REPRESENTATIVE) Blood specimen (specimen) Scout Santana MD BLOOD TRANSFUSION ORDER ED Final Result [facility] [place] [address] * Transfuse RBC: 1 Units (04/30/2019 12:34 PM SPECIALTY SALES REPRESENTATIVE) Blood specimen (specimen) Scout Santana MD BLOOD TRANSFUSION ORDER ED Final Result * Prepare RBC: 1 Units (04/30/2019 9:00 AM SPECIALTY SALES REPRESENTATIVE) Product code [id number] [facility] Unit Number [id number] [facility] Product Blood Type OPOS [facility] Dispense Status PRESUMED TRANSFUSED [facility] Blood specimen (specimen) 04/30/2019 9:00 AM SPECIALTY SALES REPRESENTATIVE 04/30/2019 9:00 AM SPECIALTY SALES REPRESENTATIVE Narrative [facility] - 05/01/2019 12:48 AM SPECIALTY SALES REPRESENTATIVE Are special requirements needed? (all products are leukoreduced)->No THE COLLECTION LOCATION IS [facility] ED3-09 LRRBC # of [id number] Reasons:-Hgb <7 g/dL} Scout Santana MD BLOOD BANK PRODUCT ORDE AMADOR Final Result [facility] [place] [address] * (ABNORMAL) Differential, auto (04/30/2019 8:05 AM SPECIALTY SALES REPRESENTATIVE) Neutrophil abs 4.8 1.7 - 6.5 K/cumm [facility] Imm gran abs 0.0 0.0 - 0.1 K/cumm [facility] Lymphocyte abs 0.7(L) 0.8 - 3.3 K/cumm [facility] Monocyte abs 0.4 0.2 - 0.8 K/cumm [facility] Eosinophil abs 0.3 0.0 - 0.5 K/cumm [facility] Basophil abs 0.0 0.0 - 0.1 K/cumm [facility] Neutrophil pct 77.1 % [facility] Comment: Interpretive Data Percent cell count reference ranges are not reported, since discordance with absolute values may lead to misinterpretation of CBC data. Current Interpretive Data was last revised on 2017. Imm gran pct 0.3 % [facility] Comment: Interpretive Data Percent cell count reference ranges are not reported, since discordance with absolute values may lead to misinterpretation of CBC data. Current Interpretive Data was last revised on 2017. Lymphocyte pct 11.8 % [facility] Comment: Interpretive Data Percent cell count reference ranges are not reported, since discordance with absolute values may lead to misinterpretation of CBC data. Current Interpretive Data was last revised on 2017. Monocyte pct 6.2 % [facility] Comment: Interpretive Data Percent cell count reference ranges are not reported, since discordance with absolute values may lead to misinterpretation of CBC data. Current Interpretive Data was last revised on 2017. Eosinophil pct 4.3 % [facility] Comment: Interpretive Data Percent cell count reference ranges are not reported, since discordance with absolute values may lead to misinterpretation of CBC data. Current Interpretive Data was last revised on 2017. Basophil pct 0.3 % [facility] Comment: Interpretive Data Percent cell count reference ranges are not reported, since discordance with absolute values may lead to misinterpretation of CBC data. Current Interpretive Data was last revised on 2017. Blood specimen (specimen) 04/30/2019 8:05 AM SPECIALTY SALES REPRESENTATIVE 04/30/2019 8:28 AM SPECIALTY SALES REPRESENTATIVE us Christina Bartlett MD LAB BLOOD ORDERABLES Fi nal Result [facility] [place] [address] * (ABNORMAL) CBC with auto differential (04/30/2019 8:05 AM SPECIALTY SALES REPRESENTATIVE) WBC 6.3 3.8 - 9.9 K/cumm [facility] Hgb 6.7(L) 11.9 - 15.5 g/dL [facility] Hct 22.6(L) 35.6 - 45.5 % [facility] Plt 277 150 - 400 K/cumm [facility] MPV 10.1 9.1 - 12.3 fL [facility] RBC 2.45(L) 3.90 - 5.20 M/cumm [facility] MCV 92.2 81.3 - 96.4 fL [facility] MCH 27.3 27.1 - 33.3 pg [facility] MCHC 29.6(L) 32.3 - 35.7 g/dL [facility] RDW CV 19.1(H) 11.1 - 14.9 % [facility] RDW SD 61.1(H) 35.7 - 48.1 fL [facility] NRBC abs 0.00 0.00 - 0.01 K/cumm [facility] Blood specimen (specimen) 04/30/2019 8:05 AM SPECIALTY SALES REPRESENTATIVE 04/30/2019 8:28 AM SPECIALTY SALES REPRESENTATIVE Narrative [facility] - 04/30/2019 8:36 AM SPECIALTY SALES REPRESENTATIVE THE BJ COLLECTION LOCATION IS [facility] ED3-09 us Christina Bartlett MD LAB BLOOD ORDERABLES Fi nal Result Performing Organization Address [facility] Co de Phone Number [facility] [place] [address] * Transfuse RBC (04/30/2019 3:21 AM SPECIALTY SALES REPRESENTATIVE) Blood specimen (specimen) Glory Palafox MD BLOOD TRANSFUSION ORDERA BLES Final Result Performing Organization Address [facility] [place] [address] * Transfuse RBC: 2 Units (04/30/2019 3:21 AM SPECIALTY SALES REPRESENTATIVE) Blood specimen (specimen) Glory Palafox MD BLOOD TRANSFUSION ORDERA BLES Final Result * Transfuse RBC (04/30/2019 2:11 AM SPECIALTY SALES REPRESENTATIVE) Blood specimen (specimen) Glory Palafox MD BLOOD TRANSFUSION ORDERA BLES Final Result Performing Organization Address [facility] de Phone Number [facility] [place] [address] * ED PERIPHERAL LINE INSERTION (04/30/2019 1:06 AM SPECIALTY SALES REPRESENTATIVE) Narrative Re Montez MD - 04/30/2019 1:06 AM SPECIALTY SALES REPRESENTATIVE Re Montez MD ? 04/30/2019 ??7:31 AM [...] ED PERIPHERAL LINE INSERTION (04/29/2019 11:49 PM SPECIALTY SALES REPRESENTATIVE) Narrative Re Montez MD - 04/29/2019 11:49 PM SPECIALTY SALES REPRESENTATIVE Angely Hou MD ? 04/29/2019 11:50 PM [...] or Decubitus 2 Views (04/29/2019 10:46 PM SPECIALTY SALES REPRESENTATIVE) Anatomical Region Laterality Modality Body, Abdomen N/A Computed Radiogr aphy 04/29/2019 10:5 9 PM SPECIALTY SALES REPRESENTATIVE Impressions 04/30/2019 3:48 PM SPECIALTY SALES REPRESENTATIVE Supine and upright views of the abdomen [...] Joao Palomino M.D. Narrative 04/30/2019 3:48 PM SPECIALTY SALES REPRESENTATIVE EXAMINATION: ??Abdomen with decubitus and/or erect views. [...] MD IMG XR PROCEDURES Final Result * MA CRITICAL CARE ILL/INJURED PATIENT INIT 30-74 MIN (04/29/2019 10:41 PM SPECIALTY SALES REPRESENTATIVE) Narrative Phil Morillo MD - 04/29/2019 10:41 PM SPECIALTY SALES REPRESENTATIVE Phil Morillo MD ? 04/29/2019 10:44 PM [...] ED PERIPHERAL LINE INSERTION (04/29/2019 10:10 PM SPECIALTY SALES REPRESENTATIVE) Narrative Phil Morillo MD - 04/29/2019 10:10 PM SPECIALTY SALES REPRESENTATIVE Angely Hou MD ? 04/29/2019 10:11 PM [...] Result * Check Sample (04/29/2019 9:36 PM SPECIALTY SALES REPRESENTATIVE) ABO Rh O Positive [facility] HCLL OTHER 04/29/2019 9:36 PM SPECIALTY SALES REPRESENTATIVE 04/29/2019 11:57 PM SPECIALTY SALES REPRESENTATIVE us Phil Morillo MD LAB BLOOD ORDERABLES Final Result Performing Organization Address [facility] Co de Phone Number [facility] [employer] [place] [address] * Prepare RBC: 2 Units (04/29/2019 9:10 PM SPECIALTY SALES REPRESENTATIVE) Product code [id number] [facility] Unit Number [id number] [facility] Product Blood Type OPOS [facility] Dispense Status PRESUMED TRANSFUSED [facility] Product code [id number] [facility] Unit Number [id number] [facility] Product Blood Type OPOS [facility] Dispense Status PRESUMED TRANSFUSED [facility] Blood specimen (specimen) 04/29/2019 9:10 PM SPECIALTY SALES REPRESENTATIVE 04/29/2019 9:11 PM SPECIALTY SALES REPRESENTATIVE Narrative [facility] - 05/01/2019 12:49 AM SPECIALTY SALES REPRESENTATIVE Are special requirements needed? (all products are leukoreduced)->No THE BJ COLLECTION LOCATION IS [facility] ED1-09 LRRBC # of [id number] Reasons:-Hgb <7 g/dL} us Glory Palafox MD BLOOD BANK PRODUCT ORDER ED Final Result Performing Organization Address [facility] Co de Phone Number [facility] [place] [address] * POCT lactate (04/29/2019 8:39 PM SPECIALTY SALES REPRESENTATIVE) [facility] Lactate POC i-STAT 1.0 0.7 - 2.2 mmol/L [facility] Blood specimen (specimen) 04/29/2019 8:39 PM SPECIALTY SALES REPRESENTATIVE 04/29/2019 8:39 PM SPECIALTY SALES REPRESENTATIVE us Phil Morillo MD LAB POCT ORDERABLES - ZAYNAB CE Final Result Performing Organization Address City/[facility]/ZIP Co de Phone Number [facility] [place] [address] * Haptoglobin (04/29/2019 8:32 PM SPECIALTY SALES REPRESENTATIVE) [facility] Haptoglobin 110.0 30.0 - 200.0 mg/dL [facility] Blood specimen (specimen) 04/29/2019 8:32 PM SPECIALTY SALES REPRESENTATIVE 04/29/2019 9:12 PM SPECIALTY SALES REPRESENTATIVE us Philip Cheung MD LAB BLOOD ORDERABLES Final Result Performing Organization Address [facility] de Phone Number [facility] [place] [address] * Basic metabolic panel (04/29/2019 8:32 PM SPECIALTY SALES REPRESENTATIVE) [facility] Sodium 140 135 - 145 mmol/L [facility] Potassium, pl 3.8 3.3 - 4.9 mmol/L [facility] Chloride 110 97 - 110 mmol/L [facility] CO2 24 22 - 32 mmol/L [facility] Anion gap 6 2 - 15 mmol/L [facility] BUN 13 8 - 25 mg/dL [facility] Creatinine 0.93 0.60 - 1.10 mg/dL [facility] Glucose 86 70 - 199 mg/dL [facility] Comment: Interpretive Data Fasting glucose >/= [...] 2017. Calcium 9.0 8.5 - 10.3 mg/dL [facility] Blood specimen (specimen) 04/29/2019 8:32 PM SPECIALTY SALES REPRESENTATIVE 04/29/2019 8:39 PM SPECIALTY SALES REPRESENTATIVE us Phil Morillo MD LAB BLOOD ORDERABLES Final Result [facility] [place] [address] * Differential, auto (04/29/2019 8:32 PM SPECIALTY SALES REPRESENTATIVE) Neutrophil abs 6.1 1.7 - 6.5 K/cumm [facility] Imm gran abs 0.0 0.0 - 0.1 K/cumm [facility] Lymphocyte abs 1.3 0.8 - 3.3 K/cumm [facility] Monocyte abs 0.4 0.2 - 0.8 K/cumm [facility] Eosinophil abs 0.2 0.0 - 0.5 K/cumm [facility] Basophil abs 0.0 0.0 - 0.1 K/cumm [facility] Neutrophil pct 74.6 % [facility] Comment: Interpretive Data Percent cell count reference ranges are not reported, since discordance with absolute values may lead to misinterpretation of CBC data. Current Interpretive Data was last revised on 2017. Imm gran pct 0.6 % [facility] Comment: Interpretive Data Percent cell count reference ranges are not reported, since discordance with absolute values may lead to misinterpretation of CBC data. Current Interpretive Data was last revised on 2017. Lymphocyte pct 15.9 % [facility] Comment: Interpretive Data Percent cell count reference ranges are not reported, since discordance with absolute values may lead to misinterpretation of CBC data. Current Interpretive Data was last revised on 2017. Monocyte pct 5.4 % [facility] Comment: Interpretive Data Percent cell count reference ranges are not reported, since discordance with absolute values may lead to misinterpretation of CBC data. Current Interpretive Data was last revised on 2017. Eosinophil pct 3.1 % [facility] Comment: Interpretive Data Percent cell count reference ranges are not reported, since discordance with absolute values may lead to misinterpretation of CBC data. Current Interpretive Data was last revised on 2017. Basophil pct 0.4 % [facility] Comment: Interpretive Data Percent cell count reference ranges are not reported, since discordance with absolute values may lead to misinterpretation of CBC data. Current Interpretive Data was last revised on 2017. Blood specimen (specimen) 04/29/2019 8:32 PM SPECIALTY SALES REPRESENTATIVE 04/29/2019 8:38 PM SPECIALTY SALES REPRESENTATIVE us Elvis Hall MD LAB BLOOD ORDERABLES F inal Result [facility] [place] [address] * (ABNORMAL) Hepatic function panel (04/29/2019 8:32 PM SPECIALTY SALES REPRESENTATIVE) Bilirubin, total 0.2 0.1 - 1.2 mg/dL [facility] Bilirubin, direct <0.2 0.1 - 0.3 mg/dL [facility] Protein, pl 6.1(L) 6.5 - 8.5 g/dL [facility] Albumin 3.4(L) 3.5 - 5.0 g/dL [facility] Alk phos 55 40 - 130 Units/L [facility] ALT 13 7 - 45 Units/L [facility] AST 20 10 - 45 Units/L [facility] Blood specimen (specimen) 04/29/2019 8:32 PM SPECIALTY SALES REPRESENTATIVE 04/29/2019 8:39 PM SPECIALTY SALES REPRESENTATIVE Narrative [facility] - 04/29/2019 9:40 PM SPECIALTY SALES REPRESENTATIVE THE COLLECTION LOCATION IS [facility] Phil Morillo MD LAB BLOOD ORDERABLES Final Result Performing Organization Address [facility] [place] [address] * Type and screen (04/29/2019 8:32 PM SPECIALTY SALES REPRESENTATIVE) Krishan, indirect Negative [facility] ABO Rh O Positive [facility] Blood specimen (specimen) 04/29/2019 8:32 PM SPECIALTY SALES REPRESENTATIVE 04/29/2019 8:40 PM SPECIALTY SALES REPRESENTATIVE Narrative [facility] - 04/29/2019 9:37 PM SPECIALTY SALES REPRESENTATIVE Has the patient had Daratumumab (Darzalex) in the past 6 months?->Unknown THE COLLECTION LOCATION IS [facility] [id number] Phil Morillo MD LAB BLOOD BANK TEST ORDERA BLES Final Result Performing Organization Address [facility] [place] [address] * aPTT (04/29/2019 8:32 PM SPECIALTY SALES REPRESENTATIVE) aPTT 29 25 - 37 sec [facility] Comment: Interpretive data Heparin therapeutic range: 60-90 seconds Range based on correlation with therapeutic heparin activity range of 0.3-0.7 units/ml. Current interpretive data was last revised on 2019. Blood specimen (specimen) 04/29/2019 8:32 PM SPECIALTY SALES REPRESENTATIVE 04/29/2019 8:45 PM SPECIALTY SALES REPRESENTATIVE Narrative [facility] - 04/29/2019 9:10 PM SPECIALTY SALES REPRESENTATIVE THE COLLECTION LOCATION IS us Elvis Hall MD LAB BLOOD ORDERABLES F inal Result Performing Organization Address [facility] [place] [address] * (ABNORMAL) Protime-INR (04/29/2019 8:32 PM SPECIALTY SALES REPRESENTATIVE) PT 14.3(H) 8.6 - 13.0 sec [facility] INR 1.3(H) 0.8 - 1.2 [facility] Comment: Interpretive data Oral anticoagulant therapeutic ranges: Venous thromboembolism prophylaxis or treatment: 2.0-3.0 CARDIOLOGY Standard range: 2.0-3.0 High-intensity range: 2.5-3.5 Refer to indication-specific guidelines for appropriate target ranges for prosthetic heart valve replacement. Current interpretive data was last revised on 2019. Blood specimen (specimen) 04/29/2019 8:32 PM SPECIALTY SALES REPRESENTATIVE 04/29/2019 8:45 PM SPECIALTY SALES REPRESENTATIVE Narrative [facility] - 04/29/2019 9:10 PM SPECIALTY SALES REPRESENTATIVE THE COLLECTION LOCATION IS Elvis Hall MD LAB BLOOD ORDERABLES F inal Result [facility] [place] [address] * (ABNORMAL) CBC with auto differential (04/29/2019 8:32 PM SPECIALTY SALES REPRESENTATIVE) [facility] WBC 8.2 3.8 - 9.9 K/cumm [facility] Hgb 5.6(C) 11.9 - 15.5 g/dL [facility] Comment:Critical result call ed to and read back by ROCIO CROWLEY RN on 04 29 2019 at 2053 to [facility]. Hct 19.3(L) 35.6 - 45.5 % [facility] Plt 315 150 - 400 K/cumm [facility] MPV 10.3 9.1 - 12.3 fL [facility] RBC 2.07(L) 3.90 - 5.20 M/cumm [facility] MCV 93.2 81.3 - 96.4 fL [facility] MCH 27.1 27.1 - 33.3 pg [facility] MCHC 29.0(L) 32.3 - 35.7 g/dL [facility] RDW CV 19.9(H) 11.1 - 14.9 % [facility] RDW SD 64.6(H) 35.7 - 48.1 fL [facility] NRBC abs 0.00 0.00 - 0.01 K/cumm [facility] Blood specimen (specimen) 04/29/2019 8:32 PM SPECIALTY SALES REPRESENTATIVE 04/29/2019 8:38 PM SPECIALTY SALES REPRESENTATIVE Narrative [facility] - 04/29/2019 8:53 PM SPECIALTY SALES REPRESENTATIVE THE BJ COLLECTION LOCATION IS us Elvis Hall MD LAB BLOOD ORDERABLES F inal Result [facility] [place] [address] * ED PERIPHERAL LINE INSERTION (04/29/2019 8:26 PM SPECIALTY SALES REPRESENTATIVE) Narrative Phil Morillo MD - 04/29/2019 8:26 PM SPECIALTY SALES REPRESENTATIVE Angely Hou MD ? 04/29/2019 ??8:27 PM [...] at 1455, Intra-Op Given 04/30/2019 2:55 PM SPECIALTY SALES REPRESENTATIVE 0.2 mg GI Tract ferrous sulfate tablet 325 mg 325 mg (65 mg of elemental iron), oral, Daily with breakfast, First dose on Sat05/01/19 at 0800, Indications: Iron Deficiency AnemiaIndications:Iron Deficiency Anemia Given 05/02/2019 8:43 AM SPECIALTY SALES REPRESENTATIVE 325 mg Given 05/01/2019 9:12 AM SPECIALTY SALES REPRESENTATIVE 325 mg morphine injection 4 mg 4 mg, intravenous, Administer over 4 Minutes, Every 4 hours PRN, 1st line for pain, Starting on Sat04/30/19 at 0316 Given 05/02/2019 8:43 AM SPECIALTY SALES REPRESENTATIVE 4 mg Given 05/02/2019 3:15 AM SPECIALTY SALES REPRESENTATIVE 4 mg Given 05/01/2019 9:59 PM SPECIALTY SALES REPRESENTATIVE 4 mg ondansetron (ZOFRAN) injection 4 mg 4 mg, intravenous, Administer over 2 Minutes, Every 4 hours PRN, nausea, vomiting, Starting on Sat04/30/19 at 0316 pantoprazole (PROTONIX) injection 40 mg 40 mg, intravenous, Administer over 2 Minutes, 2 times daily, First dose on Sat04/30/19 at 2100, Indications: GI BleedIndications:GI Bleed Given 05/02/2019 8:43 AM SPECIALTY SALES REPRESENTATIVE 40 mg Given 05/01/2019 9:02 PM SPECIALTY SALES REPRESENTATIVE 40 mg Given 05/01/2019 9:11 AM SPECIALTY SALES REPRESENTATIVE 40 mg ramelteon (ROZEREM) tablet 8 mg 8 mg, oral, Nightly PRN, sleep, Starting on Sat05/01/19 at 0024, Indications: Sleep-Onset InsomniaIndications:Sleep-Onset Insomnia Given 05/01/2019 9:02 PM SPECIALTY SALES REPRESENTATIVE 8 m g Given 05/01/2019 12:41 AM SPECIALTY SALES REPRESENTATIVE 8 mg sodium chloride 0.9% flush 0.5-20 mL 0.5-20 mL, intra-catheter, Every 8 hours scheduled, First dose on Amber 04/30/19 at 1700, Flush volume based on line type and size. Given 05/01/2019 9:02 PM SPECIALTY SALES REPRESENTATIVE 10 mL Given 05/01/2019 4:16 AM SPECIALTY SALES REPRESENTATIVE 10 mL Given 04/30/2019 10:26 PM SPECIALTY SALES REPRESENTATIVE 10 mL sodium chloride 0.9% flush 0.5-20 mL 0.5-20 mL, intra-catheter, Every 8 hours scheduled, First dose on Amber 04/30/19 at 1415, Flush volume based on line type and size. Given 05/01/2019 9:02 PM SPECIALTY SALES REPRESENTATIVE 10 mL Given 05/01/2019 5:43 PM SPECIALTY SALES REPRESENTATIVE 10 mL Given 05/01/2019 1:11 PM SPECIALTY SALES REPRESENTATIVE 10 mL sodium chloride 0.9% flush 0.5-20 mL 0.5-20 mL, intra-catheter, As needed, line care, Starting on Amber 04/30/19 at 1334, Flush volume based on line type and size. Flush before and after each use. Given 05/02/2019 3:15 AM SPECIALTY SALES REPRESENTATIVE 10 mL Given 05/01/2019 10:00 PM SPECIALTY SALES REPRESENTATIVE 10 mL Given 05/01/2019 9:12 AM SPECIALTY SALES REPRESENTATIVE 10 mL sodium chloride 0.9% infusion 30 mL/hr, intravenous, Continuous, Starting on Amber 04/30/19 at 1415 New Bag 04/30/2019 1:47 PM SPECIALTY SALES REPRESENTATIVE 30 mL/hr 30 mL/hr documented in this [...] mcg tablet Take 50 mcg by mouth driller and reamer before breakfast 0 added in this encounter Active and Recently Administered Medications Times are shown in SPECIALTY SALES REPRESENTATIVE. Scheduled Medication Order 04/30/2019 05/01/2019 05/02/2019 ferrous [...] 04/29/2019 documented in this encounter Care Teams Sr. Logistics Analyst Relationship Specialty Start Date End Date Gerard Sutton MD PCP - General 11/21/18 03/27/20 Unknown, Notinfile 02/18/18 03/27/20 documented as of this encounter
--- OUTSIDE RECORDS SUMMARY | 2024-03-24 19:45 | XMS_ITS | Encounter Summary ---
Author Organization [facility] Medical Group Address [address] [place] [address] Care Team Providers Care Molded Candles Wicker Name Role Phone Haritha Tse NP Primary Care Provider [phone] Reason for Visit * Reason Comments Follow-up 4 month f/u - Labs n ot done - ER visit in [place] - Ulcer abd pains X2 weeks ago Hypertension Congestive Heart Failure Hypothyroidism Encounter Details Date Type Department Care Team (Late st Contact Info) Description 11/25/2020 1:15 PM CDT Office Visit [facility] Medical [facility] Internal Medicine [address] [place] [address] Haritha Tse NP [address] [place] [address] Pain in right leg (Primary [...] this encounter Progress Notes * Haritha Tse, VACCINES SOLUTIONS SPECIALIST - 11/25/2020 1:15 PM CDT Subjective/Objective Patient ID: Tiarra Addison is a 49 y.o. female. Visit Date: 11/25/2020 Chief Complaint Follow-up (4 month f/u - Labs not done - ER visit in [place] - Ulcer abd pains X2 weeks ago ), Hypertension, Congestive Heart Failure, and Hypothyroidism HPI 49-year-old female in for routine 4 month follow-up. Patient recently moved to [facility]. She does have a new primary care [...] obesity with BMI of 50.0-59.9, adult (CMS/HCC) ([facility]) (E66.01, Z68.43) Comments: Diet and exercise on [...] 11/25/2020 added in this encounter Care Teams Molded Candles Wicker Relationship Specialty Start Date End Date Haritha Tse NP PCP - General Internal Medicine 03/28/20 10/29/22 documented as of this encounter
--- OUTSIDE RECORDS SUMMARY | 2024-03-24 19:45 | XMS_ITS | Encounter Summary ---
Author Organization [facility] Medical Group Address [address] [place] [address] Care Team Providers Care School Age Program Teacher Name Role Phone Haritha Tse NP Primary Care Provider [phone] Reason for Visit * Reason Comments Hospital Follow Up [facility] d/ c 04/08/2020 cellulitis to Rt leg labs Encounter Details Date Type Department Care Team (Late st Contact Info) Description 04/19/2020 11:00 AM MAGNETO ELECTRICIAN Office Visit [facility] Medical Group Internal Medicine [address] [place] [phone] Haritha Tse, GARRETT [address] [place] [address] Cellulitis of right lower extremity [...] Comments Blood Pressure 124/78 04/19/2020 11:07 AM MAGNETO ELECTRICIAN Pulse 82 04/19/2020 11:07 AM MAGNETO ELECTRICIAN Temperature 36.2 ??C (97.1 ??F) 04/19/2020 1 1:07 AM MAGNETO ELECTRICIAN Respiratory Rate 18 04/19/2020 11:0 7 AM MAGNETO ELECTRICIAN Oxygen Saturation 99% 04/19/2020 11: 07 AM MAGNETO ELECTRICIAN Inhaled Oxygen Concentration - - Weight 150.2 kg (331 lb 3.2 oz) 021 11:07 AM MAGNETO ELECTRICIAN Height 170.2 cm (5' 7 ) 04/19/2020 11:0 7 AM MAGNETO ELECTRICIAN Body Mass Index 51.87 04/19/2020 11:07 AM MAGNETO ELECTRICIAN documented in this encounter Patient Instructions * Patient Instructions* Haritha Tse NP - 04/19/2020 11:00 AM MAGNETO ELECTRICIAN continue to take abx as instructed. notify the office should your symptoms not improve ETO ELECTRICIAN documented in this encounter Progress Notes * Haritha Tse NP - 04/19/2020 11:00 AM CST Subjective/Objective Patient ID: Tiarra Addison is a 49 y.o. female. Visit Date: 04/19/2020 Chief Complaint Hospital Follow Up ([facility] d/c 04/08/2020 cellulitis to Rt leg) and labs HPI 49-year-old female in for hospital follow-up of right lower extremity cellulitis. Patient was admitted on the 05 of April through the 08 of April at [facility]. Medication reconciliation completed. Patient states she still [...] the office should your symptoms not improve ETO ELECTRICIAN documented in this encounter Plan of Treatment Not on file documented as of this encounter Visit Diagnoses Diagnosis Cellulitis of right lower extremity- Primary documented in this encounter Care Teams School Age Program Teacher Relationship Specialty Start Date End Date Haritha Tse NP PCP - General Internal Medicine 03/28/20 10/29/22 documented as of this encounter
--- OUTSIDE RECORDS SUMMARY | 2024-03-24 19:45 | XMS_ITS | Encounter Summary ---
Author Organization [facility] Healthcare Address [address] [place] [address] Care Team Providers Care Data Assistant Name Role Phone Unknown, Notinfile Unavailable Unavailable Gerard Sutton MD Primary Care Provider [phone] Encounter Details Date Type Department Care Team (Late st Contact Info) Description 03/01/2019 11:15 PM ZIPPER SEWING MACHINE OPERATOR - 03/03/2019 9:30 PM [facility] Hospital Encounter [facility] ADMIT Seema Artis MD [address] [place] [address] [place] [address] Unknown, Notinfile Giuliana Todd MD [address] [place] [address] Discharge Disposition: Discharge to home or self [...] Comments Blood Pressure 92/57 03/03/2019 4:00 PM ZIPPER SEWING MACHINE OPERATOR Pulse 54 03/03/2019 4:00 PM ZIPPER SEWING MACHINE OPERATOR Temperature 36.9 ??C (98.5 ??F) 03/03/2019 4:00 PM CS T Respiratory Rate - - Oxygen Saturation 95% 03/03/2019 4:00 PM ZIPPER SEWING MACHINE OPERATOR Inhaled Oxygen Concentration - - Weight 148.6 kg (327 lb 11.2 oz) 03/03/2019 4:00 PM ZIPPER SEWING MACHINE OPERATOR Height 170.2 cm (5' 7 ) 03/03/2019 4:00 PM ZIPPER SEWING MACHINE OPERATOR Body Mass Index 51.33 03/03/2019 4:00 PM ZIPPER SEWING MACHINE OPERATOR documented in this encounter Medications [...] metabolic panel Lab Routine 03/01/2019 9:06 PM ZIPPER SEWING MACHINE OPERATOR TNI with LIPID PANEL Lab Routine 02/07 9:06 PM ZIPPER SEWING MACHINE OPERATOR documented as of this encounter Procedures Procedure Name Priority Date/Time Associated Diagnosis Comments CBC WITH AUTO DIFFERENTIAL Routine 03/03/2019 4:33 PM ZIPPER SEWING MACHINE OPERATOR BASIC METABOLIC PANEL Routine 03/03/2019 4:33 PM ZIPPER SEWING MACHINE OPERATOR HEPARIN ANTI FACTOR XA ACTIVITY Routine 03/03/2019 12:46 PM ZIPPER SEWING MACHINE OPERATOR HEPARIN ANTI FACTOR XA ACTIVITY Routine 03/03/2019 7:42 AM ZIPPER SEWING MACHINE OPERATOR CRP (ACUTE PHASE) Routine 03/03/2019 7:4 2 AM ZIPPER SEWING MACHINE OPERATOR B-TYPE NATRIURETIC PEPTIDE Routine 03/03/2019 7:42 AM ZIPPER SEWING MACHINE OPERATOR HEPARIN ANTI FACTOR XA ACTIVITY Routine 03/03/2019 12:17 AM ZIPPER SEWING MACHINE OPERATOR CT ABDOMEN PELVIS W WO CONTRAST 03/03/2019 12:00 AM ZIPPER SEWING MACHINE OPERATOR HEPARIN ANTI FACTOR XA ACTIVITY Routine 03/02/2019 6:25 PM ZIPPER SEWING MACHINE OPERATOR HEPARIN ANTI FACTOR XA ACTIVITY Routine 03/02/2019 11:17 AM ZIPPER SEWING MACHINE OPERATOR US VEIN DUPLEX LOWER EXTREMITY BILATERAL COMPLETE 03/02/2019 7:46 AM ZIPPER SEWING MACHINE OPERATOR PROCALCITONIN Routine 03/02/2019 5:24 AM ZIPPER SEWING MACHINE OPERATOR HEPARIN ANTI FACTOR XA ACTIVITY Routine 03/02/2019 5:24 AM ZIPPER SEWING MACHINE OPERATOR CBC WITH AUTO DIFFERENTIAL Routine 03/02/2019 5:24 AM ZIPPER SEWING MACHINE OPERATOR TROPONIN I Routine 03/02/2019 5:24 AM ZIPPER SEWING MACHINE OPERATOR BASIC METABOLIC PANEL Routine 03/02/2019 5:24 AM ZIPPER SEWING MACHINE OPERATOR TROPONIN I Routine 03/01/2019 11:32 PM ZIPPER SEWING MACHINE OPERATOR CTA CHEST W IV CONTRAST - PE 03/01/2019 10:16 PM ZIPPER SEWING MACHINE OPERATOR B-TYPE NATRIURETIC PEPTIDE Routine 03/01/2019 9:20 PM ZIPPER SEWING MACHINE OPERATOR TNI WITH LIPID PANEL Routine 03/01/2019 9:06 PM ZIPPER SEWING MACHINE OPERATOR CBC WITH AUTO DIFFERENTIAL Routine 03/01/2019 9:06 PM ZIPPER SEWING MACHINE OPERATOR PROTIME-INR Routine 03/01/2019 9:06 PM ZIPPER SEWING MACHINE OPERATOR D-DIMER, QUANTITATIVE Routine 03/01/2019 9:06 PM ZIPPER SEWING MACHINE OPERATOR COMPREHENSIVE METABOLIC PANEL Routine 03/01/2019 9:06 PM ZIPPER SEWING MACHINE OPERATOR ECG 12-LEAD 03/01/2019 8:24 PM ZIPPER SEWING MACHINE OPERATOR XR CHEST 1 VIEW 03/01/2019 12:00 AM ZIPPER SEWING MACHINE OPERATOR documented in this encounter Results * (ABNORMAL) Basic metabolic panel (03/03/2019 4:33 PM ZIPPER SEWING MACHINE OPERATOR) Sodium 138 135 - 145 mmol/L [facility] Potassium 4.2 3.3 - 5.1 mmol/L [facility] Chloride 104 96 - 108 mmol/L [facility] Carbon Dioxide 28 22 - 32 mmol/L [facility] Anion Gap 6(L) 7 - [address] [facility] Glucose 89 70 - 100 mg/dL [facility] BUN 11 8 - 25 mg/dL [facility] Creatinine 0.9 0.5 - 1.1 mg/dL [facility] Comment: NOTE: Estimated GFR (Cockroft-Gault) will NOT be calculated unless patient Height and Weight were entered. Also, Kidney Disease Stage (GFR) and Estimated GFR (Cockroft-Gault) will NOT be calculated if Creatinine result is <0.2. Kidney Disease Stage 86 mL/MIN [facility] Comment: NOTE; ??The GFR is an [...] on dialysis Est GFR (Cockcroft-G) 115 ml/MIN [facility] Comment: Estimated GFR(Cockroft-Gault)is used to calculate patient medication dosage Calcium 9.2 8.6 - 10.3 mg/dL [facility] 03/03/2019 4:33 PM ZIPPER SEWING MACHINE OPERATOR 03/03/2019 4:52 PM ZIPPER SEWING MACHINE OPERATOR Narrative Resulting Agency Comment IN Giuliana Todd MD LAB BLOOD ORDERABLES F inal Result [facility] [address] [phone] * (ABNORMAL) CBC with auto differential (03/03/2019 4:33 PM ZIPPER SEWING MACHINE OPERATOR) WBC 10.7(H) 3.8 - 9.9 X10 3/ul [facility] RBC 3.29(L) 3.90 - 5.20 x10 6/ul [facility] Comment: Results reviewed Hemoglobin 9.0(L) 11.9 - 15.5 g/dL [facility] Comment: Results reviewed Hct 30.4(L) 35.6 - 45.5 % [facility] MCV 92.4 81.3 - 96.[address] [facility] MCH 27.4 27.1 - 33.[address] [facility] MCHC 29.6(L) 32.3 - 35.7 g/dl [facility] RDW 27.7(H) 11.1 - 14.9 % [facility] Plt Count 196 150 - 400 x10 3/ul [facility] MPV 9.4 9.1 - 12.[address] [facility] Neut % 71.5 % [facility] Immature Gran % 0.3 % [place] [facility] Lymph % 15.9 % [facility] Dale % 7.2 % [facility] Eos % 4.8 % [facility] AUTO BASO % 0.3 % [facility] NEUTROPHIL ABS # 7.6(H) 1.7 - 6.5 x10 3/ul [facility] Immature Gran # 0.0 0.0 - 0.1 x10 3/ul [facility] Absolute Lymphs (auto) 1.7 0.8 - 3.3 x10 3/ul [facility] Absolute Monos (auto) 0.8 0.2 - 0.8 x10 3/ul [facility] Absolute Eos (auto) 0.5 0.0 - 0.5 x10 3/ul [facility] BASOPHIL ABS # 0.0 0.0 - 0.1 x10 3/ul [facility] Nucleat RBC Rel Count 0.0 #/100WBC [facility] NRBC abs 0.00 0.00 - 0.01 x10 3/ul [facility] Absolute Neutrophils 7,600 200 - 8,000 /ul [facility] 03/03/2019 4:33 PM ZIPPER SEWING MACHINE OPERATOR 03/03/2019 4:52 PM ZIPPER SEWING MACHINE OPERATOR Narrative Resulting Agency Comment IN us Giuliana Todd MD LAB BLOOD ORDERABLES F inal Result [facility] [address] [place] [address], [facility] [phone] * Heparin anti factor Xa activity (03/03/2019 12:46 PM ZIPPER SEWING MACHINE OPERATOR) Heparin Chromogenic 0.35 0.30 - 0.70 IU/mL [facility] Comment: Anti-factor Xa is used to monitor unfractionated Heparin in weight-based Heparin therapy. ??At [facility], anti-factor Xa cannot be used to monitor Low Molecular Weight Heparin. ??If Low Molecular Weight Heparin monitoring is desired, please order LMWH [place] Heme [place] extension [phone]. 03/03/2019 12:4 6 PM ZIPPER SEWING MACHINE OPERATOR 03/03/2019 1:22 PM ZIPPER SEWING MACHINE OPERATOR Narrative [facility] - 03/03/2019 1:34 PM ZIPPER SEWING MACHINE OPERATOR Is patient on IV unfractionated heparin Y Resulting Agency Comment IN Giuliana Todd MD LAB BLOOD ORDERABLES F inal Result Performing Organization Address City/[facility]/ZIP Co de Phone Number [address] [phone] * (ABNORMAL) CRP (acute phase) (03/03/2019 7:42 AM ZIPPER SEWING MACHINE OPERATOR) C-Reactive Protein 27.0(H) 0.0 - 4.9 mg/L [facility] 03/03/2019 7:42 AM ZIPPER SEWING MACHINE OPERATOR 03/03/2019 7:52 AM ZIPPER SEWING MACHINE OPERATOR Narrative Resulting Agency Comment IN Diandra Andrew MD LAB BLOOD ORDERABLES Final Result Performing Organization Address [facility] de Phone Number [address] [phone] * (ABNORMAL) B-type natriuretic peptide (03/03/2019 7:42 AM ZIPPER SEWING MACHINE OPERATOR) B-Natriuretic Peptide 153(H) 0 - 100 pg/mL [facility] Comment: B Natriutetic Peptide METHOD: ??Siemens Centaur [...] or infusion of nesiritide. 03/03/2019 7:42 AM ZIPPER SEWING MACHINE OPERATOR 03/03/2019 7:52 AM ZIPPER SEWING MACHINE OPERATOR Narrative Resulting Agency Comment IN Result [facility] Diandra Andrew MD LAB BLOOD ORDERABLES Final Result Performing Organization Address [facility] Co de Phone Number [address] [phone] * Heparin anti factor Xa activity (03/03/2019 7:42 AM ZIPPER SEWING MACHINE OPERATOR) [facility] Heparin Chromogenic 0.53 0.30 - 0.70 IU/mL [facility] Comment: Anti-factor Xa is used to monitor unfractionated Heparin in weight-based Heparin therapy. ??At [facility], anti-factor Xa cannot be used to monitor Low Molecular Weight Heparin. ??If Low Molecular Weight Heparin monitoring is desired, please order LMWH and notify Heme at extension [phone]. 03/03/2019 7:42 AM ZIPPER SEWING MACHINE OPERATOR 03/03/2019 7:52 AM ZIPPER SEWING MACHINE OPERATOR Narrative [facility] - 03/03/2019 8:13 AM ZIPPER SEWING MACHINE OPERATOR Is patient on IV unfractionated heparin Y Resulting Agency Comment IN Giuliana Todd MD LAB BLOOD ORDERABLES F inal Result [address] [phone] * (ABNORMAL) Heparin anti factor Xa activity (03/03/2019 12:17 AM ZIPPER SEWING MACHINE OPERATOR) [facility] Heparin Chromogenic 0.29(L) 0.30 - 0.70 IU/mL [facility] Comment: Anti-factor Xa is used to monitor unfractionated Heparin in weight-based Heparin therapy. ??At [facility], anti-factor Xa cannot be used to monitor Low Molecular Weight Heparin. ??If Low Molecular Weight Heparin monitoring is desired, please order LMWH and notify Heme at extension [phone]. 03/03/2019 12:1 7 AM ZIPPER SEWING MACHINE OPERATOR 03/03/2019 12:20 AM ZIPPER SEWING MACHINE OPERATOR Narrative [facility] - 03/03/2019 12:30 AM ZIPPER SEWING MACHINE OPERATOR Is patient on IV unfractionated heparin Y Resulting Agency Comment IN Giuliana Todd MD LAB BLOOD ORDERABLES F inal Result [address] [phone] * CT Abdomen Pelvis W WO Contrast (03/03/2019 12:00 AM ZIPPER SEWING MACHINE OPERATOR) Anatomical Region Laterality Modality Body N/A Computed Tomogra phy 03/03/2019 2:51 PM ZIPPER SEWING MACHINE OPERATOR Narrative 03/03/2019 3:01 PM ZIPPER SEWING MACHINE OPERATOR Patient Name: TIARRA ADDISON ?Ordering Dr: Tg Kim PA-C ?? D.O.B: 1970 ? Exam Date: 03/03/19 ?? 0000 ?? Age: 48 ?Sex: Female ? MR#: [id number] ?? Loc: ??N287-02 ? RADIOLOGY REPORT ?? Order #[id number] ?? CT Scan ? CT Abd/Pelvis W [...] 3:01 PM ?? T: ? Report ID: [id number] ?? Reading Location: ??[id number] ? REPORT ELECTRONICALLY SIGNED IN OTHER VENDOR SYSTEM ?? Resulting Agency Comment I Procedure Note Ozzie Almodovar MD - 03/03/2019 Patient Name: GUILLETIARRACT Fraire Dr: Tg Kim PA-C, D.O.B: 1970 Exam Date: 03/03/19 0000 Age: 48 Sex: Female MR#: [id number] Loc: N287-02 RADIOLOGY REPORT Order #[id number] CT Scan CT Abd/Pelvis W WO IV [...] is degenerative disc space disease at the L5-T4ymmji. OTHER: Fat containing umbilical hernia is present. [...] Ozzie Almodovar M.D. SS T: Report ID: [id number] Reading Location: [place] [address] REPORT ELECTRONICALLY SIGNED IN OTHER VENDOR SYSTEM us Tg [facility] IMG CT PROCEDURES Final Res ult * Heparin anti factor Xa activity (03/02/2019 6:25 PM ZIPPER SEWING MACHINE OPERATOR) [facility] Heparin Chromogenic 0.38 0.30 - 0.70 IU/mL [facility] Comment: Anti-factor Xa is used to monitor unfractionated Heparin in weight-based Heparin therapy. ??At [facility], anti-factor Xa cannot be used to monitor Low Molecular Weight Heparin. ??If Low Molecular Weight Heparin monitoring is desired, please order LMWH and notify Heme at extension [phone]. 03/02/2019 6:25 PM ZIPPER SEWING MACHINE OPERATOR 03/02/2019 6:30 PM ZIPPER SEWING MACHINE OPERATOR Narrative [facility] - 03/02/2019 6:41 PM ZIPPER SEWING MACHINE OPERATOR Is patient on IV unfractionated heparin Y Resulting Agency Comment IN Result [facility] Diandra Andrew MD LAB BLOOD ORDERABLES Final Result [address] [phone] * (ABNORMAL) Heparin anti factor Xa activity (03/02/2019 11:17 AM ZIPPER SEWING MACHINE OPERATOR) [facility] Heparin Chromogenic 0.71(H) 0.30 - 0.70 IU/mL [facility] Comment: Anti-factor Xa is used to monitor unfractionated Heparin in weight-based Heparin therapy. ??At [facility], anti-factor Xa cannot be used to monitor Low Molecular Weight Heparin. ??If Low Molecular Weight Heparin monitoring is desired, please order LMWH [place] Heme [place] extension [phone]. 03/02/2019 11:1 7 AM ZIPPER SEWING MACHINE OPERATOR 03/02/2019 11:22 AM ZIPPER SEWING MACHINE OPERATOR Narrative [facility] - 03/02/2019 11:38 AM ZIPPER SEWING MACHINE OPERATOR Is patient on IV unfractionated heparin Y Resulting Agency Comment IN Giuliana Todd MD LAB BLOOD ORDERABLES F inal Result [facility] [address] [place] [address], [facility] [phone] * US Vein Duplex Lower Extremity Bilateral Complete (03/02/2019 7:46 AM ZIPPER SEWING MACHINE OPERATOR) Anatomical Region Laterality Modality Vascular Bilateral Ultrasound 03/02/2019 5:07 PM ZIPPER SEWING MACHINE OPERATOR Narrative 03/02/2019 6:17 PM ZIPPER SEWING MACHINE OPERATOR ? Patient Name: TIARRA ADDISON ? MR#: ?? [id number] ? Status: ADM IN ?D.O.B: 1970 Age: ??48 ?Sex: Female ? ADM/SER Dt: 03/01/19 ?Disch Dt: ? LOC: H.2NE ? Ordering Phy: Diandra Andrew MD ? Order #[id number] ? Venous Dop/Duplex Both Legs ?? Zeferino [...] femoral vein distally. ? NTS ? Job: [id number] ? Dictated By: Zeferino Mensah MD ?? Dictated For: Zeferino Mensah MD ? <Electronically signed by Zeferino Mensah MD> ? 03/02/19 1812 ?? Resulting Agency Comment I Procedure Note Zeferino Mensah MD - 03/02/2019 Patient Name: TIARRA ADDISON MR#: [id number] Status: ADM IN D.O.B: 1970 Age: 48Sex: Female ADM/SER Dt: 03/01/19 Disch Dt:LOC: H.2NE Ordering Phy: Diandra Andrew MD Order #[id number] Venous Dop/Duplex Both Legs Zeferino Mensah MD [...] the left femoral vein distally. NTS Job: [id number] Dictated By: Zeferino Mensah MD Dictated For: Zeferino Mensah MD <Electronically signed by Zeferino Mensah MD> 03/02/19 1812 us Diandra Andrew MD [facility] US PROCEDURES Final Res ult * Procalcitonin (03/02/2019 5:24 AM ZIPPER SEWING MACHINE OPERATOR) Procalcitonin 0.03 0.0 - 0.24 ng/mL [facility] Comment: Guidelines for use with Community Acquired Pneumonia(CAP)- ONLY: ?? <0.1 ng/mL: Use of antibiotics is STRONGLY discouraged ?? 0.1-0.24 ng/mL: Use of antibiotics is discouraged ?? 0.25-0.5 ng/mL: Use of antibiotics is encouraged ?? >0.5 ng/mL: Use of antibiotics is STRONGLY encouraged ?? Recommend repeating every 2-3 days if initial PCT >0.24 03/02/2019 5:24 AM ZIPPER SEWING MACHINE OPERATOR 03/02/2019 5:27 AM ZIPPER SEWING MACHINE OPERATOR Narrative Resulting Agency Comment IN Seema Artis MD LAB BLOOD ORDERABLES Nika perez Result [facility] [address] [place] [address], [facility] [phone] * (ABNORMAL) Basic metabolic panel (03/02/2019 5:24 AM ZIPPER SEWING MACHINE OPERATOR) Sodium 136 135 - 145 mmol/L [facility] Potassium 4.0 3.3 - 5.1 mmol/L [facility] Chloride 105 96 - 108 mmol/L [facility] Carbon Dioxide 26 22 - 32 mmol/L [facility] Anion Gap 5(L) 7 - [address] [facility] Glucose 94 70 - 100 mg/dL [facility] BUN 10 8 - 25 mg/dL [facility] Creatinine 0.7 0.5 - 1.1 mg/dL [facility] Comment: NOTE: Estimated GFR (Cockroft-Gault) will NOT be calculated unless patient Height and Weight were entered. Also, Kidney Disease Stage (GFR) and Estimated GFR (Cockroft-Gault) will NOT be calculated if Creatinine result is <0.2. Kidney Disease Stage >90 mL/MIN [facility] Comment: NOTE; ??The GFR is an [...] on dialysis Est GFR (Cockcroft-G) 148 ml/MIN [facility] Comment: Estimated GFR(Cockroft-Gault)is used to calculate patient medication dosage Calcium 8.8 8.6 - 10.3 mg/dL [facility] 03/02/2019 5:24 AM ZIPPER SEWING MACHINE OPERATOR 03/02/2019 5:27 AM ZIPPER SEWING MACHINE OPERATOR Narrative Resulting Agency Comment IN Seema Artis MD LAB BLOOD ORDERABLES Edit ed Result - Final Performing Organization Address [facility] Co de Phone Number [address] [phone] * Troponin I (03/02/2019 5:24 AM ZIPPER SEWING MACHINE OPERATOR) Troponin I <0.300 0.000 - 0.300 ng/mL [facility] Comment: Reference using CLOVER Chemiluminescence ? Negative: Repeat in 4-6 hours as indicated. 03/02/2019 5:24 AM ZIPPER SEWING MACHINE OPERATOR 03/02/2019 5:27 AM ZIPPER SEWING MACHINE OPERATOR Narrative Resulting Agency Comment IN Seema Artis MD LAB BLOOD ORDERABLES Nika l Result Performing Organization Address [facility] [place] [address], [facility] [phone] * (ABNORMAL) Heparin anti factor Xa activity (03/02/2019 5:24 AM ZIPPER SEWING MACHINE OPERATOR) [facility] Heparin Chromogenic 0.94(H) 0.30 - 0.70 IU/mL [facility] Comment: Anti-factor Xa is used to monitor unfractionated Heparin in weight-based Heparin therapy. ??At [facility], anti-factor Xa cannot be used to monitor Low Molecular Weight Heparin. ??If Low Molecular Weight Heparin monitoring is desired, please order LMWH and notify Heme at extension [phone]. 03/02/2019 5:24 AM ZIPPER SEWING MACHINE OPERATOR 03/02/2019 5:27 AM ZIPPER SEWING MACHINE OPERATOR Narrative [facility] - 03/02/2019 5:38 AM ZIPPER SEWING MACHINE OPERATOR Is patient on IV unfractionated heparin Y Resulting Agency Comment IN Giuliana Todd MD LAB BLOOD ORDERABLES F inal Result [facility] [address] [place] [address], [facility] [phone] * (ABNORMAL) CBC with auto differential (03/02/2019 5:24 AM ZIPPER SEWING MACHINE OPERATOR) [facility] WBC 9.5 3.8 - 9.9 X10 3/ul [facility] RBC 2.85(L) 3.90 - 5.20 x10 6/ul [facility] Comment: Results reviewed Hemoglobin 7.7(L) 11.9 - 15.5 g/dL [facility] Comment: Results reviewed Hct 25.4(L) 35.6 - 45.5 % [facility] MCV 89.1 81.3 - 96.[address] [facility] MCH 27.0(L) 27.1 - 33.[address] [facility] MCHC 30.3(L) 32.3 - 35.7 g/dl [facility] RDW 27.3(H) 11.1 - 14.9 % [facility] Plt Count 142(L) 150 - 400 x10 3/ul [facility] MPV 9.5 9.1 - 12.[address] [facility] Neut % 72.9 % [facility] Immature Gran % 0.4 % [place] [facility] Lymph % 15.7 % [facility] Dale % 8.1 % [facility] Eos % 2.7 % [facility] AUTO BASO % 0.2 % [facility] NEUTROPHIL ABS # 6.9(H) 1.7 - 6.5 x10 3/ul [facility] Immature Gran # 0.0 0.0 - 0.1 x10 3/ul [facility] Absolute Lymphs (auto) 1.5 0.8 - 3.3 x10 3/ul [facility] Absolute Monos (auto) 0.8 0.2 - 0.8 x10 3/ul [facility] Absolute Eos (auto) 0.3 0.0 - 0.5 x10 3/ul [facility] BASOPHIL ABS # 0.0 0.0 - 0.1 x10 3/ul [facility] Nucleat RBC Rel Count 0.0 #/100WBC [facility] NRBC abs 0.00 0.00 - 0.01 x10 3/ul [facility] Absolute Neutrophils 6,900 200 - 8,000 /ul [facility] 03/02/2019 5:24 AM ZIPPER SEWING MACHINE OPERATOR 03/02/2019 5:27 AM ZIPPER SEWING MACHINE OPERATOR Narrative Resulting Agency Comment IN Seema Artis MD LAB BLOOD ORDERABLES Nika perez Result [facility] [address] [place] [address], [facility] [phone] * Troponin I (03/01/2019 11:32 PM ZIPPER SEWING MACHINE OPERATOR) Troponin I <0.300 0.000 - 0.300 ng/mL [facility] Comment: Reference using [place] Chemiluminescence ? Negative: Repeat in 4-6 hours as indicated. 03/01/2019 11:3 2 PM ZIPPER SEWING MACHINE OPERATOR 03/01/2019 11:35 PM ZIPPER SEWING MACHINE OPERATOR Narrative Resulting Agency Comment IN us Seema Artis MD LAB BLOOD ORDERABLES Nika ana Result [facility] [place] [address], [facility] [phone] * CTA Chest W IV Contrast - PE (03/01/2019 10:16 PM ZIPPER SEWING MACHINE OPERATOR) Anatomical Region Laterality Modality Body N/A Computed Tomogra phy 03/01/2019 10:5 6 PM ZIPPER SEWING MACHINE OPERATOR Narrative 03/01/2019 11:02 PM ZIPPER SEWING MACHINE OPERATOR Patient Name: TIARRA ADDISON ?Ordering Dr: Seema Artis MD ?? D.O.B: 1970 ? Exam Date: 03/01/19 ?? 221 ?? Age: 48 ?Sex: Female ? MR#: [id number] ?? Loc: ? RADIOLOGY REPORT ?? Order #[id number] ?? CT Scan ? CTA Chest W [...] 11:02 PM ?? T: ? Report ID: [id number] ?? Reading Location: ??[id number] ? REPORT ELECTRONICALLY SIGNED IN OTHER VENDOR SYSTEM ?? Resulting Agency Comment E Procedure Note Juan Rodriguez MD - 03/01/2019 Patient Name: TIARRA ADDISON Dr: Seema Artis MD D.O.B: 1970 Exam Date: 03/01/192215 Age: 48 Sex: Female MR#: [id number] Loc: RADIOLOGY REPORT Order #[id number] CT Scan CTA Chest W IV Contrast [...] Juan Rodriguez M.D. RS T: Report ID: [id number] Reading Location: [id number] REPORT ELECTRONICALLY SIGNED IN OTHER VENDOR SYSTEM Seema Artis MD IMG CT PROCEDURES Final R esult * (ABNORMAL) B-type natriuretic peptide (03/01/2019 9:20 PM ZIPPER SEWING MACHINE OPERATOR) [facility] B-Natriuretic Peptide 172(H) 0 - 100 pg/mL [facility] Comment: B Natriutetic Peptide METHOD: ??[employer] Sprout[employer] XP using ADONAY. Decision threshold of 100 [...] or infusion of nesiritide. 03/01/2019 9:20 PM ZIPPER SEWING MACHINE OPERATOR 03/01/2019 11:12 PM ZIPPER SEWING MACHINE OPERATOR Narrative [facility] - 03/01/2019 11:48 PM ZIPPER SEWING MACHINE OPERATOR MOBI ADD-ON TO EXTRA TUBE IN LAB 2310] Resulting Agency Comment IN Seema Artis MD LAB BLOOD ORDERABLES Nika l Result [facility] [address] [place], [place] [id number] [place] [id number] * (ABNORMAL) CBC with auto differential (03/01/2019 9:06 PM ZIPPER SEWING MACHINE OPERATOR) [facility] WBC 12.2(H) 3.8 - 9.9 X10 3/ul [facility] RBC 3.59(L) 3.90 - 5.20 x10 6/ul [facility] Hemoglobin 9.6(L) 11.9 - 15.5 g/dL [facility] Hct 32.0(L) 35.6 - 45.5 % [facility] MCV 89.1 81.3 - 96.[address] [facility] MCH 26.7(L) 27.1 - 33.[address] [facility] MCHC 30.0(L) 32.3 - 35.7 g/dl [facility] RDW 27.6(H) 11.1 - 14.9 % [facility] Plt Count 142(L) 150 - 400 x10 3/ul [facility] MPV 9.6 9.1 - 12.[address] [facility] Neut % 79.6 % [facility] Immature Gran % 0.3 % [facility] Lymph % 10.6 % [facility] Dale % 7.9 % [facility] [facility] Eos % 1.4 % [facility] AUTO BASO % 0.2 % [facility] NEUTROPHIL ABS # 9.7(H) 1.7 - 6.5 x10 3/ul [facility] Immature Gran # 0.0 0.0 - 0.1 x10 3/ul [facility] Absolute Lymphs (auto) 1.3 0.8 - 3.3 x10 3/ul [facility] Absolute Monos (auto) 1.0(H) 0.2 - 0.8 x10 3/ul [facility] Absolute Eos (auto) 0.2 0.0 - 0.5 x10 3/ul [facility] BASOPHIL ABS # 0.0 0.0 - 0.1 x10 3/ul [facility] Nucleat RBC Rel Count 0.0 #/100WBC [facility] NRBC abs 0.00 0.00 - 0.01 x10 3/ul [facility] Platelet Evaluation AGREE AGREE [facility] Comment: Slide review of platelets correlates with instrument count. Hypochromasia 2+ [facility] Anisocytosis 2+ [facility] Microcytosis 1+ [facility] Macrocytosis 1+ [facility] Absolute Neutrophils 9,700(H) 200 - 8,000 /ul [facility] 03/01/2019 9:06 PM ZIPPER SEWING MACHINE OPERATOR 03/01/2019 9:08 PM ZIPPER SEWING MACHINE OPERATOR Narrative Resulting Agency Comment ER Seema Artis MD LAB BLOOD ORDERABLES Nika l Result Performing Organization Address [facility] Co de Phone Number [address] [phone] * (ABNORMAL) D-dimer, quantitative (03/01/2019 9:06 PM ZIPPER SEWING MACHINE OPERATOR) Pathologist [facility] D-Dimer, Quantitative >20,000(H ) <500 ng/mLFEU [facility] Comment: Studies indicate that a D-Dimer [...] ng/ml FEU effective 02/17/19. 03/01/2019 9:06 PM ZIPPER SEWING MACHINE OPERATOR 03/01/2019 9:08 PM ZIPPER SEWING MACHINE OPERATOR Narrative Resulting Agency Comment ER Seema Artis MD LAB BLOOD ORDERABLES Nika perez Result Performing Organization Address [facility] Co de Phone Number [address] [phone] * (ABNORMAL) Protime-INR (03/01/2019 9:06 PM ZIPPER SEWING MACHINE OPERATOR) Pathologist [facility] PT 16.1(H) 12.2 - 14.[address] [facility] Comment: New reference ranges in use 6-28-19. INR 1.[address] [facility] Comment: Recommended Therapeutic range for Oral Anticoagulant Therapy No anti-coagulation therapy ? Normal Range: ?0.8-1.4 Anti-coagulation therapy ? Low intensity therapy ?2.0-3.0 ? High intensity therapy ?? 2.5-3.5 Critical Value ? Greater than or equal to 5.0 Patients should be monitored for serious bleeding. 03/01/2019 9:06 PM ZIPPER SEWING MACHINE OPERATOR 03/01/2019 9:08 PM ZIPPER SEWING MACHINE OPERATOR Narrative Resulting Agency Comment ER Seema Artis MD LAB BLOOD ORDERABLES Nika l Result Performing Organization Address [facility] Co de Phone Number [facility] [place] [place] [address], [facility] [phone] * ECG 12 lead (03/01/2019 8:24 PM ZIPPER SEWING MACHINE OPERATOR) Ventricular Rate EKG/Min 73 BPM ER RADIOLOGY Atrial Rate 73 BPM ER RADIOLOGY UT-Interval (MSEC) 162 ms ER RADIOLOGY QRS-Interval (MSEC) 84 ms ER RADIOLOGY QT-Interval (MSEC) 414 ms ER RADIOLOGY QTc 456 ms ER RADIOLOGY P [place] 23 degrees ER RADIOLOGY R [place] -4 degrees ER RADIOLOGY T [place] 5 degrees ER RADIOLOGY Diagnosis Normal sinus rhythm Minimal voltage criteria for LVH, may be normal variant Borderline ECG When compared with ECG of 02-JAN-2019 16:21, No significant change was found ER RADIOLOGY 03/01/2019 8:24 PM ZIPPER SEWING MACHINE OPERATOR 03/02/2019 3:53 PM ZIPPER SEWING MACHINE OPERATOR Narrative Resulting Agency Comment INPAT Seema Artis MD ECG ORDERABLES Final Res ult Performing Organization Address [facility]/ZIP Co de Phone Number ER RADIOLOGY * XR Chest 1 View (03/01/2019 12:00 AM ZIPPER SEWING MACHINE OPERATOR) Anatomical Region Laterality Modality Body, Chest N/A Radiographic Alexsandra ging 03/01/2019 8:46 PM ZIPPER SEWING MACHINE OPERATOR Narrative 03/01/2019 8:47 PM ZIPPER SEWING MACHINE OPERATOR Patient Name: TIARRA ADDISON ?Ordering Dr: Seema Artis MD ?? D.O.B: 1970 ? Exam Date: 03/01/19 ?? 0000 ?? Age: 48 ?Sex: Female ? MR#: [id number] ?? Loc: ? RADIOLOGY REPORT ?? Order #[id number] ?? Radiology ? Chest 1 View Portable [...] 8:47 PM ?? T: ? Report ID: [id number] ?? Reading Location: ??[id number] ? REPORT ELECTRONICALLY SIGNED IN OTHER VENDOR SYSTEM ?? Resulting Agency Comment E Procedure Note Paola Mendez MD - 03/01/2019 Patient Name: TIARRA ADDISON Dr: Seema Artis MD, D.O.B: 1970 Exam Date: 03/01/19 0000 Age: 48 Sex: Female MR#: [id number] Loc: RADIOLOGY REPORT Order #[id number] Radiology Chest 1 View Portable Signed EXAM [...] signed by Paola GOODMAN T: Report ID: [id number] Reading Location: [place] [address] REPORT ELECTRONICALLY SIGNED IN OTHER VENDOR SYSTEM us Seema Artis MD IMG XR PROCEDURES Final R esult documented in this encounter Visit Diagnoses Not on filedocumented in this encounter Care Teams Data Assistant Relationship Specialty Start Date End Date Gerard Sutton MD PCP - General 11/21/18 03/27/20 Unknown, Notinfile 02/18/18 03/27/20 documented as of this encounter
--- OUTSIDE RECORDS SUMMARY | 2024-03-24 19:45 | XMS_ITS | Encounter Summary ---
Author Organization [facility] Healthcare Address [address] [place] [address] Care Team Providers Care Material Manager Name Role Phone Haritha Tse NP Primary Care Provider [phone] Encounter Details Date Type Department Care Team (Late st Contact Info) Description 04/18/2020 10:37 AM FITNESS PROFESSIONAL Hospital Encounter [facility] OP INTERIM Krala Suresh MD [address] [place], [place] [id number] Haritha Tse NP [address] [facility] [address] [place], [place] [id number] Social History Tobacco Use Types Packs/Day Years [...] LOWER EXTREMITY RIGHT LIMITED 04/18/2020 12:00 AM FITNESS PROFESSIONAL documented in this encounter Results * US Vein Duplex Lower Extremity Right Limited (04/18/2020 12:00 AM FITNESS PROFESSIONAL) Anatomical Region Laterality Modality Vascular Right Ultrasound 04/20/2020 12:2 3 PM FITNESS PROFESSIONAL Narrative 04/20/2020 1:39 PM FITNESS PROFESSIONAL ? Patient Name: ENEIDA HAN ? MR#: [id number] ?? [id number] ? Status: REG CLI ? D.O.B: 1970 Age: ??49 ?Sex: Female ? ADM/SER Dt: 04/18/20 ?Disch Dt: ? LOC: H.LAB ? Ordering Phy: Karla Suresh MD ? Order #[id number] ? Venous Dop/Duplex Right Leg ?? Karla [...] common femoral vein. ? NTS ? Job: [id number] ? Dictated By: Karla Suresh MD ?? Dictated For: Karla ??MD Kerwin ? <Electronically signed by Kerwin Brown M.D> ? 04/20/20 1349 ?? Resulting Agency Comment O Procedure Note Karla Suresh MD - 04/20/2020 Patient Name: ENEIDA HAN Vik #: [id number] Status: REG CLI D.O.B: 1970 Age: 49Sex: Female ADM/SER Dt: 04/18/20 Disch Dt:LOC: H.LAB Ordering Phy: Karla Suresh MD Order #[id number] Venous Dop/Duplex Right Leg Karla Suresh MD [...] the left common femoral vein. NTS Job: [id number] Dictated By: Karla Suresh MD Dictated For: Karla Suresh MD <Electronically signed by Kerwin Brown M.D> 04/20/20 1349 us Karla Suresh MD IMG US PROCEDURES Final Result documented in this encounter Visit Diagnoses Not on filedocumented in this encounter Care Teams Material Manager Relationship Specialty Start Date End Date Haritha Tse NP PCP - General Internal Medicine 03/28/20 10/29/22 documented as of this encounter
--- OUTSIDE RECORDS SUMMARY | 2024-03-24 19:45 | XMS_ITS | Encounter Summary ---
Author Organization [facility] Address [address] [address] Care Team Providers Care Airport Manager Name Role Phone Haritha Tse NP Primary Care Provider [phone] Reason for Visit * Diagnostic Imaging (Routine) - Closed Specialty Diagnoses / Procedures Referred By Contac t Referred To Contact Diagnoses Pain in both knees, unspecified chronicity Procedures XR Pelvis 1 or 2 Views Kaiser Nielson MD [address] [place] [address] [address] [address] Phone: tel: fax: [facility] Referral ID Status Reason Start Date Expiration Date Visits Re quested Visits Authorized [id number] Closed 10/18/2022 11/17/2023 1 1 Encounter Details Date Type Department Care Team (Late st Contact Info) Description 10/18/2022 9:25 AM CDT Ancillary Procedure [facility] Imaging at [address] [address] Social History Tobacco Use Types [...] on filedocumented in this encounter Care Teams Airport Manager Relationship Specialty Start Date End Date Haritha Tse NP PCP - General Internal Medicine 03/28/20 10/29/22 documented as of this encounter
--- OUTSIDE RECORDS SUMMARY | 2024-03-24 19:45 | XMS_ITS | Encounter Summary ---
Author Organization [facility] Address [address] [facility] [address] [place] [address] Care Team Providers Care Fourdrinier Wire Weaver Name Role Phone Haritha Tse NP Primary Care Provider [phone] Reason for Visit * Reason Onset Date Comments knee botherig you 10/26/2022 Encounter Details Date Type Department Care Team (Late st Contact Info) Description 10/26/2022 Telephone [facility] Orthopedics and Sports Medicine [address] [facility] [address] [place] [address] Kaiser Nielson MD [address] [place] [address] [address] [facility] [address] [place] [address] knee botherig you Social History Tobacco Use [...] on filedocumented in this encounter Care Teams Fourdrinier Wire Weaver Relationship Specialty Start Date End Date Haritha Tse NP PCP - General Internal Medicine 03/28/20 10/29/22 documented as of this encounter
--- OUTSIDE RECORDS SUMMARY | 2024-03-24 19:45 | XMS_ITS | Encounter Summary ---
Author Organization [facility] Facility Care Team Providers Care Director Chemistry Name Role Phone Unknown, Notinfile Unavailable Unavailable Gerard Sutton MD Primary Care Provider [phone] Encounter Details Date Type Department Care Team [...] on filedocumented in this encounter Care Teams Director Chemistry Relationship Specialty Start Date End Date Gerard Sutton MD PCP - General 11/21/18 03/27/20 Unknown, Notinfile 02/18/18 03/27/20 documented as of this encounter
--- OUTSIDE RECORDS SUMMARY | 2024-03-24 19:45 | XMS_ITS | Encounter Summary ---
Author Organization [facility] Address [address] [facility] [address] [place] [address] Care Team Providers Care Eradicator Name Role Phone Haritha Tse NP Primary Care Provider [phone] Reason for Visit * Reason Comments Establish Care Was in ER for pain R knee, swelling Encounter Details Date Type Department Care Team (Late st Contact Info) Description 10/30/2022 1:00 PM CDT Office Visit [facility] Internal Medicine at [place] [address] [place] [address] Haritha Tse, GARRETT [address] [facility] [address] [place] [address] chronic right knee pain (Primary [...] this encounter Progress Notes * Haritha Tse, NEEDLE CONTROL CHENILLER - 10/30/2022 1:00 PM CDT Subjective/Objective Patient ID: Tiarra Addison is a 51 y.o. female. Visit Date: 10/30/2022 Chief Complaint Establish Care (Was in ER for pain R knee, swelling) HPI 51-year-old female in to establish care. Patient was a previous patient prior to moving to [place] a couple of years ago. She does have chronic knee pain. She needs bilateral knee replacements however they are unable to do so due to patient way at [facility]. She was seen by ortho last week [...] directed on package. Obesity, morbid, BMI 40.0-49.9 ([facility]) (E66.01) Comments: Diet and exercise on a regular basis as tolerated Assessment & Plan: Discussed the patients BMI: The BMI is above average BMI management is complete. BMI follow-up includes: Nutrition Counseling and education provided Morbid obesity with BMI of 45.0-49.9, adult ([facility]) (E66.01, Z68.42) Comments: Monitor caloric intake. Exercise as tolerated Assessment & Plan: Discussed the patients BMI: The BMI is above average BMI management is complete. BMI follow-up includes: Nutrition Counseling and education provided Chronic deep vein thrombosis (DVT) of other vein of right lower extremity ([facility]) (I82.591) Comments: Continue Xarelto daily as directed [...] Morbid obesity with BMI of 45.0-49.9, adult ([facility]) Discussed the patients BMI: The BMI is [...] of other vein of right lower extremity ([facility]) Primary insomnia Persistent disorder of initiating or [...] documented as of this encounter Care Teams Eradicator Relationship Specialty Start Date End Date Haritha Tse NP [address] [facility] [address] [place] [address] PCP - General Internal Medicine 10/30/22 documented as of this encounter
--- OUTSIDE RECORDS SUMMARY | 2024-03-24 19:45 | XMS_ITS | Encounter Summary ---
Author Organization [facility] Address [address] [facility] [address] [place] [address] Care Team Providers Care Safety Equipment Testing Specialist Name Role Phone Haritha Tse NP Primary Care Provider [phone] Phylicia De La Garza Unavailable [phone] Encounter Details Date Type Department Care Team (Late st Contact Info) Description 08/16/2020 Orders Only [facility] Health Information Management [address] [place] [address] Scanning, Provider Social History Tobacco [...] on filedocumented in this encounter Care Teams Safety Equipment Testing Specialist Relationship Specialty Start Date End Date Haritha Tse NP PCP - General Internal Medicine 03/28/20 10/29/22 Phylicia De La Garza [address] [place] [address] [address] [place] [address] [employer] Air Purifier Servicer 11/16/20 11/17/20 documented as of this encounter
--- OUTSIDE RECORDS SUMMARY | 2024-03-24 19:45 | XMS_ITS | Encounter Summary ---
Author Organization [facility] Address [address] [facility] [address] [place] [address] Care Team Providers Care Pig Machine Crane Operator Name Role Phone Haritha Tse MANAGER [employer]ACLE DAT[employer]ASE Primary Care Provider [phone] Encounter Details Date Type Department Care Team (Late st Contact Info) Description 04/18/2020 Telephone [facility] Internal Medicine [address] [facility] [address] [place] [address] Haritha Tse, MANAGER [employer]ACLE DATABASE [address] [facility] [address] [place] [address] Social History Tobacco Use Types [...] NP - 04/18/2020 12:16 PM CST Sent [employer] * Telephone Encounter - Elizabeth Ramirez - 04/18/2020 11:45 AM CST Pt requesting something called in to her pharmacy for yeast infection. [facility] [place] [facility] 04/19 hosp f/u [employer] documented in this encounter Plan of Treatment Not on file documented as of this encounter Visit Diagnoses Not on filedocumented in this encounter Care Teams Pig Machine Crane Operator Relationship Specialty Start Date End Date Haritha Tse NP PCP - General Internal Medicine 03/28/20 10/29/22 documented as of this encounter
--- OUTSIDE RECORDS SUMMARY | 2024-03-24 19:45 | XMS_ITS | Encounter Summary ---
Author Organization [facility] Healthcare Address [address] [place] [address] Care Team Providers Care Manager Money Name Role Phone Unknown, Notinfile Unavailable Unavailable Gerard Sutton MD Primary Care Provider [phone] Reason for Visit * Reason Comments Dizziness Black or Bloody Stool Encounter Details Date Type Department Care Team (Latest Contact Info) Description 04/29/2019 7:45 PM CANAL STRUCTURE OPERATOR - 05/02/2019 12:30 PM CANAL STRUCTURE OPERATOR Hospital Encounter [facility] [address] [place] [id number] Phil Morillo MD [address] [place] [address] Molly Garcia MD [address] [place] [address] Re Montez MD [address] [place] [address] Ozzie Pascual MD [address] [facility] [phone] [place] [address] Ottoniel Ellis MD [address] [place] [address] Gastrointestinal hemorrhage with melena (Primary Dx) Discharge [...] Comments Blood Pressure 125/69 05/02/2019 5:12 AM CANAL STRUCTURE OPERATOR Pulse 82 05/02/2019 5:12 AM CANAL STRUCTURE OPERATOR Temperature 36.8 ??C (98.2 ??F) 05/02/2019 5:00 AM CS T Respiratory Rate 16 05/02/2019 5:00 AM CANAL STRUCTURE OPERATOR Oxygen Saturation 100% 05/02/2019 5:00 AM CANAL STRUCTURE OPERATOR Inhaled Oxygen Concentration - - Weight 134.8 kg (297 lb 3.2 oz) 04/30/2019 4:20 PM CANAL STRUCTURE OPERATOR Height 170.2 cm (5' 7 ) 04/30/2019 4:20 PM CANAL STRUCTURE OPERATOR Body Mass Index 46.55 04/30/2019 4:20 PM CANAL STRUCTURE OPERATOR documented in this encounter Discharge Diagnoses Diagnosis Chronic or unspecified gastric ulcer with hemorrhage - CHRONIC OR UNSPECIFIED GASTRIC ULCER WITH HEMORRHAGE Acute posthemorrhagic anemia - ACUTE POSTHEMORRHAGIC ANEMIA Hypothyroidism, unspecified - HYPOTHYROIDISM, UNSPECIFIED Hypertensive heart disease with heart failure (CMS/HCC) ([facility]) - HYPERTENSIVE HEART DISEASE WITH HEART FAILURE Unspecified hypertensive heart disease with heart failure Heart failure, unspecified (CMS/HCC) (HCC) - HEART FAILURE, UNSPECIFIED Heart failure, unspecified Lymphedema, not elsewhere classified - LYMPHEDEMA, NOT ELSEWHERE CLASSIFIED 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 - 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 ?? Pt was admitted to [facility] on 04/15/19 for two days [...] tarry stools and she was admitted to [facility] on 04/15/2019. During her course at [...] dizzy. At this point she presented to [facility] (on 04/29/2019). At [facility], her Hb was measured as 5.6 and [...] levothyroxine. ?? CHF: 04/29/2019. CHF dx at [facility] in Feb 2019. Requested records from [facility]. Holding home metop and furosemide in setting [...] Full Discharge Instructions: You were seen at [facility] for a bleeding ulcer, while here [...] as: SYNTHROID Take 50 mcg by mouth counting machine operator before breakfast lisinopril 10 mg tablet Commonly [...] Information for Follow-ups DENNISE Shelton Specialty: Physician Senior Mobile Solutions Architect [address] [place] [address] Next Steps: Follow up Cosigned by Molly Garcia MD at 05/02/2019 11:57 AM CANAL STRUCTURE OPERATOR L STRUCTURE OPERATOR L STRUCTURE OPERATOR documented in this encounter Discharge Instructions * Appointments* Ann Marie Mariano RN - 05/01/2019 2:23 PM CANAL STRUCTURE OPERATOR This is the earliest available appointment with your PCP, Please bring discharge paperwork with list of medicines, insurance card and photo ID to appointment. Please arrive at least 15 minutes early prior to appointment. If you are unable to keep this appointment, it is very important you call to reschedule. L STRUCTURE OPERATOR documented in this encounter Medications at [...] mcg tablet Take 50 mcg by mouth counting machine operator before breakfast 0 lisinopril (PRINIVIL,ZESTRI L) 10 [...] hx melenic stools. Per pt, admitted to [facility] on 04/14 and d/c 04/24; [...] 2 units pRBC in ED. - Requested [facility] records - 2 Large bore IVs - [...] hypothyroidism and prescription of levothyroxine 50mcg. -Requested [facility] Records -Repeat TSH is 4.2, free T4 is 1.17 -Patient is Euthyroid, will start levothyroxine outpatient if needed ?? Congestive heart failure (CHF) ([facility]) Assessment & Plan Per patient, recently diagnosed at [facility] (02/2019). - Requested [facility] Records to be faxed over - [...] Garcia MD at 05/02/2019 12:01 PM CANAL STRUCTURE OPERATOR L STRUCTURE OPERATOR L STRUCTURE OPERATOR Associated attestation - Molly Garcia MD - 05/02/2019 12:01 PM CANAL STRUCTURE OPERATOR I have seen and examined the [...] Results (from the past 24 hour(s)) POCT MA-U-ASW-GLU-HCT, WB - ISTAT Collection Time: 04/30/19 2:13 PM Result Value Ref Range Hct, POC 25.0 (L) 35.6 - 45.5 % POCT hCG, urine Collection Time: 04/30/19 2:15 PM Result Value Ref Range HCG, ur, POC Negative Lot Number [id number] QC Backgroud Clear Acceptable QC Control Line [...] through Saturday from 0800 to 1700 at [phone]. From 1700 to 0800 Saturday through Saturday and all day Saturday/Saturday, we can be reached at [phone]. L STRUCTURE OPERATOR * Lilian Cee MD - 05/01/2019 [...] 0.9%, 30 mL/hr, Last Rate: Stopped (04/30/19 9207) PRN Medications: morphine ??? ondansetron ??? ramelteon [...] hx melenic stools. Per pt, admitted to [facility] on 04/14 and d/c 04/24; [...] 2 units pRBC in ED. - Requested [facility] records - 2 Large bore IVs - [...] hypothyroidism and prescription of levothyroxine 50mcg. -Requested [facility] Records -Repeat TSH is 4.2, free T4 is 1.17 -Patient is Euthyroid, will start levothyroxine outpatient if needed Congestive heart failure (CHF) ([facility]) Assessment & Plan Per patient, recently diagnosed at [facility] (02/2019). - Requested [facility] Records to be faxed over - [...] Garcia MD at 05/01/2019 10:44 AM CANAL STRUCTURE OPERATOR L STRUCTURE OPERATOR L STRUCTURE OPERATOR Associated attestation - Molly Garcia MD - 05/01/2019 10:44 AM CANAL STRUCTURE OPERATOR I have seen and examined the [...] info (name, phone, availablity) Jose Willis (son) [phone] Home Care Services No Durable Medical Equipment [...] Information/Options Discussed: Explained role and purpose of complex case manager role. Demographics verified with face sheet. Plan Includes: Establish a safe discharge. Insurance verified as: Bartolo FOX PCP verified as: DENNISE Esparza at [facility] -[phone] Transportation: family Admit Source: ED from home [...] needs after 4:30 pm, please call the roll winder . For weekend/holiday needs from 8:00a.m. - 4:30p.m., please call the Weekend Employment Assistant . L STRUCTURE OPERATOR documented in this encounter H&P Notes [...] weeks of melena. Pt was admitted to [facility] on 04/15/19 for two days [...] PM Result Value Ref Range Product code Y4719I37 Unit Number [id number] Product Blood Type OPOS Dispense Status ISSUED Product code A5455I42 Unit Number [id number] Product Blood Type OPOS Dispense Status ISSUED [...] hx melenic stools. Per pt, admitted to [facility] on 04/14 and d/c 04/24; [...] 2 units pRBC in ED. - Requested [facility] records - 2 Large bore IVs - NPO for EGD - Q8H CBCs, T&S, consented - Transfuse for Hgb<7 - IV protonix BID - Monitor on Telemetry - avoid NSAIDs, ASA, anticoagulants Hypothyroidism Assessment & Plan Pt with reported new diagnosis of hypothyroidism and prescription of levothyroxine 50mcg. -Requested [facility] Records -Repeat TSH -Will start home levothyroxine pending TSH Congestive heart failure (CHF) ([facility]) Assessment & Plan Per patient, recently diagnosed at [facility] (02/2019). - Requested [facility] Records to be faxed over - [...] Internal Medicine, PGY1 Addendum: Records received from [facility]. EGD 04/19/19: demonstrated 1cm small anastomotic ulcer [...] Garcia MD at 04/30/2019 4:17 PM CANAL STRUCTURE OPERATOR L STRUCTURE OPERATOR L STRUCTURE OPERATOR L STRUCTURE OPERATOR L STRUCTURE OPERATOR Associated attestation - Molly Garcia MD - 04/30/2019 4:17 PM CANAL STRUCTURE OPERATOR I have seen and examined the patient on 04/30/19. I agree with the findings and plan of care as documented in the resident's/fellow's note. I reviewed prior records from [facility] which are summarized in this note. Recently admitted to [facility] 04/15-04/24 for melena, found to have [...] Plan: Follow up: Radha Barr RN L STRUCTURE OPERATOR Ozzie Basilio MD - 04/30/2019 2:21 PM CSTAssociated Order(s): EGD [facility] Patient Name: Tiarra Addison Procedure Date: 04/30/2019 2:21 PM Date of : 1970 Admit Type: Outpatient Age: 48 Gender: Female Attending MD: Ozzie Pascual M.D. Room: [facility] OR POD 5 ROOM 224 Note [...] passed under direct vision. The GIF [id number] endoscope was introduced through the mouth, and [...] On: 04/30/2019 2:21 PM Recognized by the [employer] for promoting quality in endoscopy L STRUCTURE OPERATOR documented in this encounter Consult Notes [...] anemia. The patient was recently admitted to [facility] on 04/15/19. She presented complaining of [...] to EDfor evaluation so she came to [facility]. On arrival to ED she was HDS. [...] failure) (CMS/HCC) ??? DVT (deep venous thrombosis) (CMS/[facility]) ??? Hypertension ??? Lymph edema [...] file Gets together: Not on file Attends adventist service: Not on file Active member of [...] PM Result Value Ref Range Product code C5925L85 Unit Number [id number] Product Blood Type OPOS Dispense Status ISSUED Product code [id number] Unit Number [id number] Product Blood Type OPOS Dispense Status ISSUED [...] through Saturday from 0800 to 1700 at [phone]. From 1700 to 0800 Saturday through Saturday and all day Saturday/Saturday, we can be reached at [phone]. Cosigned by Ozzie Pascual MD at 05/02/2019 7:10 PM CANAL STRUCTURE OPERATOR L STRUCTURE OPERATOR L STRUCTURE OPERATOR Associated attestation - Ozzie Pascual MD - 05/02/2019 7:10 PM CANAL STRUCTURE OPERATOR I have seen and examined the patient on 04/30/19. I agree with the findings and plan of care as documented in the resident's/fellow's note. documented in this encounter ED Notes * Soo Basilio RN - 04/30/2019 10:45 AM CST Bed: [facility] Expected date: Expected time: Means of arrival: Comments: em 3 pt Soo Basilio RN 04/30/19 1045 L STRUCTURE OPERATOR * Phil Morillo MD - 04/29/2019 [...] Attending Emergency Physician Phil Morillo MD 04/29/19 2345 L STRUCTURE OPERATOR * Phil Morillo MD - 04/29/2019 7:46 PM CST HPI Chief Complaint Patient presents with ??? Dizziness ??? Black or Bloody Stool 47 year old female with HTN, PSA, chronic lymphedema and DVT (on xarelto), here with bloody stools x2 weeks. She was seen at [facility] at initial bloody stool onset, described as [...] resident. By: Glory Palafox MD Time: 04/30 4841 Comment: GI is aware of patient. Will [...] 2312 Phil Morillo MD 04/30/19 1141 L STRUCTURE OPERATOR L STRUCTURE OPERATOR * Lotus Faustin RN - 04/29/2019 7:45 PM CST Bed: ED1-09 Expected date: Expected time: Means of arrival: Ambulance Comments: Lotus Faustin RN 04/29/191944 L STRUCTURE OPERATOR * Phylicia Zuluaga RN - 04/29/2019 6:02 PM CST Recently seen at [facility] for GI bleed. Had to get 5 blood transfusions. Had scope and found ulcer in upper GI but states ultimately could not find the source of the bleeding. Still havingblack stools. No vomiting. Also reports hemoglobin 7.3 when she was dc'd from OSH. Reports feeling dizzy and faint today, checked BP at home and was 90/40. L STRUCTURE OPERATOR documented in this encounter Miscellaneous Notes [...] or minimized Outcome: Adequate for Discharge L STRUCTURE OPERATOR * Plan of Care - Seema [...] as charted. Will continue to monitor. L STRUCTURE OPERATOR * Plan of Rich - Cecil [...] to 7.9. Will continue to monitor. L STRUCTURE OPERATOR * Hospital Course - Jesse Xiao - 05/01/2019 10:52 AM CST Tiarra Addison is a 48 y.o. F w/ history of GBP ([place] in 1999), PE/DVT s/p IVC filter placementand on Xarelto (last taken on 04/13/2019). Pt's melena started on 04/13/2019. She noticed she was having black and tarry stools and she was admitted to [facility] on 04/15/2019. During her course at [...] dizzy. At this point she presented to [facility] (on 04/29/2019). At [facility], her Hb was measured as 5.6 and [...] levothyroxine. ?? CHF: 04/29/2019. CHF dx at [facility] in Feb 2019. Requested records from [facility]. Holding home metop and furosemide in setting of volume loss. ?? VTE Hx: 04/29/2019: VTE last July. Patient held her own Xarelto in s/o melena starting 04/13/2019.SCDs for prevention. L STRUCTURE OPERATOR L STRUCTURE OPERATOR L STRUCTURE OPERATOR L STRUCTURE OPERATOR L STRUCTURE OPERATOR L STRUCTURE OPERATOR * Medical Student - Jesse Xiao [...] 0.9%, 30 mL/hr, Last Rate: Stopped (04/30/19 1837) PRN Medications: morphine ??? ondansetron ??? ramelteon [...] home levothyroxine CHF: - Recently dx at [facility] in Feb 2019. - requested records from [facility] - Hold home metop and furosemide in setting of volume loss. VTE Hx: - VTE last July - Hold Xarelto in s/o bleed - SCDs for prevention. Code Status: Full Code Diet: Adult Diet Restricted; 2 GM Sodium DVT Prophylaxis: use SCDs for prevention. Jesse Xiao 05/01/2019 10:44 AM Cosigned by Norberto Hickey MD at 05/01/2019 1:31 PM CANAL STRUCTURE OPERATOR L STRUCTURE OPERATOR L STRUCTURE OPERATOR * Plan of Care - Rosalia [...] for pain, will continue to monitor. L STRUCTURE OPERATOR * Plan of Care - Cecil [...] Progressing Goals: Clinical Goals for the Shift: Sloan to unit, pain control Summary: The patient's assessment and admission process were completed. The patient's prn pain med was administered for pain. L STRUCTURE OPERATOR * Medical Student - Jesse Xiao [...] tarry stools and she was admitted to [facility] at that time. During her course [...] felt dizzy. At thispoint she presented to [facility] (yesterday). She also had new epigastric pain [...] has never before had melena. s At [facility], her Hb was measured as 5.6 and she received 2 units of pRBC. Hb then measured 6.7. She is still experiencing some abdominal pain in the epigastric region. Objective Scheduled Medications: sodium chloride 0.9%, 0.5-20 mL, intra-catheter, Q8H KENTERLL Continuous Medications: dextrose 5% and sodium chloride [...] home levothyroxine CHF: - Recently dx at [facility] in Feb 2019. - requested records from [facility] - Hold home metop and furosemide in setting of volume loss. VTE Hx: - VTE last July - Hold Xarelto in s/o bleed - SCDs for prevention. Code Status: Full Code Diet: NPO Diet DVT Prophylaxis: use SCDs for prevention. Jesse Xiao 04/30/2019 2:43 PM Cosigned by Norberto Hickey MD at 04/30/2019 3:34 PM CANAL STRUCTURE OPERATOR L STRUCTURE OPERATOR L STRUCTURE OPERATOR L STRUCTURE OPERATOR * ED Observation Provider Note - [...] Carver MD at 05/01/2019 9:19 PM CANAL STRUCTURE OPERATOR L STRUCTURE OPERATOR L STRUCTURE OPERATOR Associated attestation - Cecil Carver MD - 05/01/2019 9:19 PM CANAL STRUCTURE OPERATOR I have seen and examined the patient on 04/29/2019 in conjunction with DENNISE Galo My findings and recommendations are to continue the infusion of blood and admit for EGD * ED Re-evaluation Note - Scout Santana MD - 04/30/2019 7:06 AM CANAL STRUCTURE OPERATOR ED Re-evaluation TRANSITION OF CARE: I, [...] resident. By: Glory Palafox MD Time: 04/30 0807 Comment: GI is aware of patient. Will plan for EGD today. By: Scout Santana MD Time: 04/30 1032 Comment: Patient is getting 3rd unit of blood. GI is planning on scoping patient afterwards. By: Scout Santana MD Time: 04/30 1118 Comment: Pt scheduled for EGD today. Currently receiving unit of blood. Denies dizziness currently. By: DENNISE Ricketts MD Resident 05/01/19 3322 L STRUCTURE OPERATOR * Assessment & Plan Note - Cari Landers MD - 04/30/2019 5:31 AM CANAL STRUCTURE OPERATOR Associated Problem(s): Acute blood loss anemia Hgb to 5.6 in the setting of melenic stools. S/p 2u pRBC in ED. -q8h CBC, T&S, consented -further management as listed under upper GI bleed L STRUCTURE OPERATOR L STRUCTURE OPERATOR * Assessment & Plan Note - Cari Landers MD - 04/30/2019 2:23 AM CANAL STRUCTURE OPERATOR Associated Problem(s): Acute upper GI bleed 2 week hx melenic stools. Per pt, admitted to [facility] on 04/14 and d/c 04/24; [...] 2 units pRBC in ED. - Requested [facility] records - 2 Large bore IVs - NPO for EGD - Q8H CBCs, T&S, consented - Transfuse for Hgb<7 - IV protonix BID - Monitor on Telemetry - avoid NSAIDs, ASA, anticoagulants L STRUCTURE OPERATOR L STRUCTURE OPERATOR L STRUCTURE OPERATOR L STRUCTURE OPERATOR * Assessment & Plan Note - Cari Landers MD - 04/30/2019 2:21 AM CANAL STRUCTURE OPERATOR Associated Problem(s): Hypothyroidism Pt with reported new diagnosis of hypothyroidism and prescription of levothyroxine 50mcg. -Requested [facility] Records -Repeat TSH -Will start home levothyroxine pending TSH L STRUCTURE OPERATOR * Assessment & Plan Note - Cari Landers MD - 04/30/2019 2:20 AM CANAL STRUCTURE OPERATOR Associated Problem(s): Congestive heart failure (CHF) (CMS/HCC) (HCC) Per patient, recently diagnosed at [facility] (02/2019). - Requested [facility] Records to be faxed over - Hold home metop XL and furosemide L STRUCTURE OPERATOR * Assessment & Plan Note - Cari Landers MD - 04/30/2019 2:19 AM CANAL STRUCTURE OPERATOR Associated Problem(s): Hypertension Reviewed patient's medication bottles at bedside. Currently takes lisinopril 10mg, hydrochlorothiazide (HCTZ) 25mg, metop xl 25mg, furosemide 40mg daily. -Hold home BP meds due to normotension and GIB L STRUCTURE OPERATOR * Assessment & Plan Note - Cari Landers MD - 04/30/2019 2:18 AM CANAL STRUCTURE OPERATOR Associated Problem(s): History of DVT (deep vein thrombosis) Prior DVTs/PEs. S/p IVC filter placement. On Xarelto at home, last dose reportedly around ~04/15/19, as she stopped this medication around the time she started developing melenic stools. - Hold Xarelto iso bleed - SCDs L STRUCTURE OPERATOR * ED Procedure Note - Re [...] entire procedure Angely Hou MD Resident 04/30/19 2186 Re Montez MD 04/30/19 0731 L STRUCTURE OPERATOR L STRUCTURE OPERATOR L STRUCTURE OPERATOR * ED Procedure Note - Angely Hou MD - 04/29/2019 11:49 PM CANAL STRUCTURE OPERATOR Associated Order(s): Peripheral line insertion Procedure [...] immediate complications Angely Hou MD Resident 04/29/19 1508 Cosigned by Re Montez MD at 04/30/2019 6:48 AM CANAL STRUCTURE OPERATOR L STRUCTURE OPERATOR L STRUCTURE OPERATOR * ED Re-evaluation Note - Christina Bart[place] MD - 04/29/2019 10:45 PM CANAL STRUCTURE OPERATOR ED Re-evaluation TRANSITION OF CARE: I, [...] Christina Bah MD Resident 04/30/19 0721 L STRUCTURE OPERATOR * ED Procedure Note - Phil Morillo MD - 04/29/2019 10:41 PM CANAL STRUCTURE OPERATOR Associated Order(s): Critical Care Procedure Critical [...] the medical record. Phil Morillo MD 04/29/19 2880 L STRUCTURE OPERATOR * ED Procedure Note - Angely Hou MD - 04/29/2019 10:10 PM CANAL STRUCTURE OPERATOR Associated Order(s): Peripheral line insertion Procedure [...] Morillo MD at 04/30/2019 11:18 AM CANAL STRUCTURE OPERATOR L STRUCTURE OPERATOR L STRUCTURE OPERATOR Associated attestation - Phil Morillo MD - 04/30/2019 11:18 AM CANAL STRUCTURE OPERATOR I was present for the entire procedure * ED Procedure Note - Angely Hou MD - 04/29/2019 8:26 PM CANAL STRUCTURE OPERATOR Associated Order(s): Peripheral line insertion Procedure [...] Morillo MD at 04/30/2019 11:18 AM CANAL STRUCTURE OPERATOR L STRUCTURE OPERATOR L STRUCTURE OPERATOR Associated attestation - Phil Morillo MD - 04/30/2019 11:18 AM CANAL STRUCTURE OPERATOR I was present for the entire procedure documented in this encounter Plan of Treatment Not on file documented as of this encounter Procedures Procedure Name Priority Date/Time Associated Diagnosis Comments CBC WITHOUT DIFFERENTIAL Timed 020 11:46 PM CANAL STRUCTURE OPERATOR CBC WITHOUT DIFFERENTIAL Timed 020 4:37 PM CANAL STRUCTURE OPERATOR BASIC METABOLIC PANEL Routine 05/01/2019 4:37 PM CANAL STRUCTURE OPERATOR CBC WITHOUT DIFFERENTIAL Timed 020 8:00 AM CANAL STRUCTURE OPERATOR THYROID FUNCTION CASCADE Routine 020 10:38 PM CANAL STRUCTURE OPERATOR CBC WITHOUT DIFFERENTIAL Timed 020 10:38 PM CANAL STRUCTURE OPERATOR T4, FREE Routine 04/30/2019 10:38 PM CANAL STRUCTURE OPERATOR BASIC METABOLIC PANEL Routine 04/30/2019 10:38 PM CANAL STRUCTURE OPERATOR SURGICAL PATHOLOGY Routine 04/30/2019 2:36 PM CANAL STRUCTURE OPERATOR Gastrointestina l hemorrhage with melena EGD 04/30/2019 2:21 PM CANAL STRUCTURE OPERATOR ESOPHAGOGASTRODUODENOSCOPY CONTROL BLEED 04/30/2019 2:20 PM CANAL STRUCTURE OPERATOR Gastrointestina l hemorrhage with melena POCT HCG, URINE Routine 04/30/2019 2:15 PM CANAL STRUCTURE OPERATOR POCT WM-L-CCM-GLU-HCT,WB - ISTAT Routine 04/30/2019 2:13 PM CANAL STRUCTURE OPERATOR TRANSFUSE RED BLOOD CELLS Timed 2019 10:30 AM CANAL STRUCTURE OPERATOR PREPARE RBC Timed 04/30/2019 9:00 AM CANAL STRUCTURE OPERATOR DIFFERENTIAL AUTO Routine 04/30/2019 8:05 AM CANAL STRUCTURE OPERATOR CBC WITH AUTO DIFFERENTIAL Routine 04/30 8:05 AM CANAL STRUCTURE OPERATOR TRANSFUSE RED BLOOD CELLS Timed 2019 2:10 AM CANAL STRUCTURE OPERATOR ED PERIPHERAL LINE INSERTION Routine 1:06 AM CANAL STRUCTURE OPERATOR TRANSFUSE RED BLOOD CELLS Timed 2019 12:45 AM CANAL STRUCTURE OPERATOR ED PERIPHERAL LINE INSERTION Routine 11:49 PM CANAL STRUCTURE OPERATOR XR ABDOMEN ERECT AND OR DECU BITS 2 VIEWS ED 04/29/2019 10:46 PM CANAL STRUCTURE OPERATOR WA CRITICAL CARE ILL/INJURED PATIENT INIT 30-74 MIN Routine 04/29/2019 10:41 PM CANAL STRUCTURE OPERATOR ED PERIPHERAL LINE INSERTION Routine 10:10 PM CANAL STRUCTURE OPERATOR B CHECK SAMPLE STAT 04/29/2019 9:36 PM CANAL STRUCTURE OPERATOR PREPARE RBC Timed 04/29/2019 9:10 PM CANAL STRUCTURE OPERATOR POCT LACTATE - DEVICE Routine 04/29/2019 8:39 PM CANAL STRUCTURE OPERATOR DIFFERENTIAL AUTO STAT 04/29/2019 8:32 PM CANAL STRUCTURE OPERATOR CBC WITH AUTO DIFFERENTIAL STAT 04/29 8:32 PM CANAL STRUCTURE OPERATOR APTT STAT 04/29/2019 8:32 PM CANAL STRUCTURE OPERATOR PROTIME-INR STAT 04/29/2019 8:32 PM CANAL STRUCTURE OPERATOR TYPE AND SCREEN STAT 04/29/2019 8:32 PM CANAL STRUCTURE OPERATOR HAPTOGLOBIN STAT 04/29/2019 8:32 PM CANAL STRUCTURE OPERATOR HEPATIC FUNCTION PANEL STAT 0 8:32 PM CANAL STRUCTURE OPERATOR BASIC METABOLIC PANEL STAT 04/29/2019 8:32 PM CANAL STRUCTURE OPERATOR ED PERIPHERAL LINE INSERTION Routine 8:26 PM CANAL STRUCTURE OPERATOR documented in this encounter Results * (ABNORMAL) CBC without differential (05/01/2019 11:46 PM CANAL STRUCTURE OPERATOR) WBC 6.9 3.8 - 9.9 K/cumm [facility] Hgb 8.2(L) 11.9 - 15.5 g/dL [facility] Hct 27.0(L) 35.6 - 45.5 % [facility] Plt 296 150 - 400 K/cumm [facility] MPV 9.9 9.1 - 12.3 fL [facility] RBC 2.93(L) 3.90 - 5.20 M/cumm [facility] MCV 92.2 81.3 - 96.4 fL [facility] [facility] MCH 28.0 27.1 - 33.3 pg [facility] MCHC 30.4(L) 32.3 - 35.7 g/dL [facility] RDW CV 19.3(H) 11.1 - 14.9 % [facility] RDW SD 59.0(H) 35.7 - 48.1 fL [facility] NRBC abs 0.00 0.00 - 0.01 K/cumm [facility] Blood specimen (specimen) 05/01/2019 11:46 PM CANAL STRUCTURE OPERATOR 05/02/2019 12:05 AM CANAL STRUCTURE OPERATOR Re Montez MD LAB BLOOD ORDERABLES Final R esult [facility] Department [place] [address] * Basic metabolic panel (05/01/2019 4:37 PM CANAL STRUCTURE OPERATOR) Sodium 141 135 - 145 mmol/L [facility] Potassium, pl 4.6 3.3 - 4.9 mmol/L [facility] Chloride 110 97 - 110 mmol/L [facility] CO2 25 22 - 32 mmol/L [facility] Anion gap 6 2 - 15 mmol/L [facility] BUN 11 8 - 25 mg/dL [facility] Creatinine 0.90 0.60 - 1.10 mg/dL [facility] Glucose 87 70 - 199 mg/dL [facility] Comment: Interpretive Data Fasting glucose [...] 2017. Calcium 9.0 8.5 - 10.3 mg/dL [facility] Blood specimen (specimen) 05/01/2019 4:37 PM CANAL STRUCTURE OPERATOR 05/01/2019 4:46 PM CANAL STRUCTURE OPERATOR Re Montez MD LAB BLOOD ORDERABLES Final R esult [facility] Department [place] [address] * (ABNORMAL) CBC without differential (05/01/2019 4:37 PM CANAL STRUCTURE OPERATOR) Pathologist [facility] WBC 7.0 3.8 - 9.9 K/cumm [facility] Hgb 7.8(L) 11.9 - 15.5 g/dL [facility] Hct 25.2(L) 35.6 - 45.5 % [facility] Plt 268 150 - 400 K/cumm [facility] MPV 9.9 9.1 - 12.3 fL [facility] RBC 2.74(L) 3.90 - 5.20 M/cumm [facility] MCV 92.0 81.3 - 96.4 fL [facility] MCH 28.5 27.1 - 33.3 pg [facility] MCHC 31.0(L) 32.3 - 35.7 g/dL [facility] RDW CV 19.0(H) 11.1 - 14.9 % [facility] RDW SD 59.3(H) 35.7 - 48.1 fL [facility] NRBC abs 0.00 0.00 - 0.01 K/cumm [facility] Blood specimen (specimen) 05/01/2019 4:37 PM CANAL STRUCTURE OPERATOR 05/01/2019 4:46 PM CANAL STRUCTURE OPERATOR us Re Montez MD LAB BLOOD ORDERABLES Final R esult [facility] Department [place] [address] * (ABNORMAL) CBC without differential (05/01/2019 8:00 AM CANAL STRUCTURE OPERATOR) WBC 7.2 3.8 - 9.9 K/cumm [facility] Hgb 7.9(L) 11.9 - 15.5 g/dL [facility] Hct 26.3(L) 35.6 - 45.5 % [facility] Plt 285 150 - 400 K/cumm [facility] MPV 10.1 9.1 - 12.3 fL [facility] RBC 2.87(L) 3.90 - 5.20 M/cumm [facility] MCV 91.6 81.3 - 96.4 fL [facility] MCH 27.5 27.1 - 33.3 pg [facility] MCHC 30.0(L) 32.3 - 35.7 g/dL [facility] RDW CV 18.9(H) 11.1 - 14.9 % [facility] RDW SD 58.8(H) 35.7 - 48.1 fL [facility] NRBC abs 0.00 0.00 - 0.01 K/cumm [facility] Blood specimen (specimen) 05/01/2019 8:00 AM CANAL STRUCTURE OPERATOR 05/01/2019 10:51 AM CANAL STRUCTURE OPERATOR Re Montez MD LAB BLOOD ORDERABLES Final R esult Performing Organization Address City/[facility]/ZIP Co de Phone Number [place] [address] * T4, free (04/30/2019 10:38 PM CANAL STRUCTURE OPERATOR) Pathologist [facility] Free T4 1.17 0.90 - 1.70 ng/dL [facility] Blood specimen (specimen) 04/30/2019 10:38 PM CANAL STRUCTURE OPERATOR 04/30/2019 10:49 PM CANAL STRUCTURE OPERATOR Narrative [facility] - 04/30/2019 11:57 PM CANAL STRUCTURE OPERATOR This test was reflexed from a TSH result. Re Montez MD LAB BLOOD ORDERABLES Final R esult Performing Organization Address City/[facility] Co de Phone Number [facility] [place] [address] * Basic metabolic panel (04/30/2019 10:38 PM CANAL STRUCTURE OPERATOR) Sodium 140 135 - 145 mmol/L [facility] Potassium, pl 4.0 3.3 - 4.9 mmol/L [facility] Chloride 108 97 - 110 mmol/L [facility] CO2 24 22 - 32 mmol/L [facility] Anion gap 8 2 - 15 mmol/L [facility] BUN 11 8 - 25 mg/dL [facility] Creatinine 0.86 0.60 - 1.10 mg/dL [facility] Glucose 93 70 - 199 mg/dL [facility] Comment: Interpretive Data Fasting glucose [...] 2017. Calcium 9.1 8.5 - 10.3 mg/dL [facility] Blood specimen (specimen) 04/30/2019 10:38 PM CANAL STRUCTURE OPERATOR 04/30/2019 10:49 PM CANAL STRUCTURE OPERATOR us Re Montez MD LAB BLOOD ORDERABLES Final R esult [facility] Department [place] [address] * (ABNORMAL) CBC without differential (04/30/2019 10:38 PM CANAL STRUCTURE OPERATOR) WBC 8.9 3.8 - 9.9 K/cumm [facility] Hgb 8.6(L) 11.9 - 15.5 g/dL [facility] Hct 28.0(L) 35.6 - 45.5 % [facility] Plt 304 150 - 400 K/cumm [facility] MPV 10.0 9.1 - 12.3 fL [facility] RBC 3.06(L) 3.90 - 5.20 M/cumm [facility] MCV 91.5 81.3 - 96.4 fL [facility] MCH 28.1 27.1 - 33.3 pg [facility] MCHC 30.7(L) 32.3 - 35.7 g/dL [facility] RDW CV 19.0(H) 11.1 - 14.9 % [facility] RDW SD 58.1(H) 35.7 - 48.1 fL [facility] NRBC abs 0.00 0.00 - 0.01 K/cumm [facility] Blood specimen (specimen) 04/30/2019 10:38 PM CANAL STRUCTURE OPERATOR 04/30/2019 10:49 PM CANAL STRUCTURE OPERATOR eR Montez MD LAB BLOOD ORDERABLES Final R esult Performing Organization Address City/[facility]/ZIP Co de Phone Number [facility] Department [place] [address] * (ABNORMAL) TSH reflex to free T4 (04/30/2019 10:38 PM CANAL STRUCTURE OPERATOR) TSH 4.24(H) 0.30 - 4.20 mcIUnit/mL [facility] Blood specimen (specimen) 04/30/2019 10:38 PM CANAL STRUCTURE OPERATOR 04/30/2019 10:49 PM CANAL STRUCTURE OPERATOR Re Montez MD LAB BLOOD ORDERABLES Final R esult Performing Organization Address [facility] Co de Phone Number [facility] Department [place] [address] * Surgical pathology (04/30/2019 2:36 PM CANAL STRUCTURE OPERATOR) Tissue (Gastric/Stomach biopsy) 04/30/2019 2:36 PM CANAL STRUCTURE OPERATOR Narrative PATHOLOGY [facility] - 05/04/2019 5:11 PM CANAL STRUCTURE OPERATOR EPIC results best viewed via link to PDF [facility] [place] [address] SURGICAL PATHOLOGY REPORT FINAL Patient Name: ?? TIARRA ADDISONBea Gender: ??F : ??1970 (Age: 48) Address: ??[address] [place], [place] ??[address] Hospital #: ??[id number] Taken:04/30/2019 Received:04/30/2019 Reported: 05/04/2019 Patient Type: [facility] Inpatient ?? Service: Internal Medicine Location: [facility] 0144 Physician(s): ??Ozzie Pascual M.D. Gerard [...] and04/30/2019 16:44 PA(s): Matti Gregory MS, PA ([facility]) By this signature, I attest that the above diagnosis is based upon my personal examination of the slides(and/or other material). The performance characteristics of some immunohistochemical stains, fluorescence in-situ hybridization tests and immunophenotyping by flow cytometry cited in this report (if any) were determined by the Surgical Pathology Department at [facility] as part of an ongoing quality director program and in compliance with federally mandated [...] determined by the Surgical Pathology Department of [facility]. ??It has not been cleared or approved by the U. S. Food and Drug Administration. IMAGES AND SCANNED DOCUMENTS, IF INCLUDED, ONLY VIEWABLE IN PDF VERSION OF REPORT us Ozzie Pascual MD LAB PATHOLOGY ORDERABLES Final Result PATHOLOGY [facility] 3rd Floor [place], [place] [phone] * EGD (04/30/2019 2:21 PM CANAL STRUCTURE OPERATOR) Anatomical Region Laterality Modality Other Narrative Procedure Note Ozzie Pascual MD - 04/30/2019 2:21 PM [facility] Patient Name: Tiarra Addison Procedure Date: 04/30/2019 2:21 PM Date of : 1970 Admit Type: Outpatient Age: 48 Gender: Female Attending MD: Ozzie Pascual M.D. Room: [facility] OR POD 5 ROOM 224 Note [...] The scope was passed [facility] direct [facility]. [id number] was introduced through the mouth, and [...] On: 04/30/2019 2:21 PM Recognized by the [employer] for promoting quality in endoscopy Ozzie Pascual MD ENDOSCOPY PROCEDURES Fin al Result * POCT hCG, urine (04/30/2019 2:15 PM CANAL STRUCTURE OPERATOR) HCG, ur, POC Negative Lot Number [id number] QC Backgroud Clear Acceptable QC Control Line Acceptable Urine 04/30/2019 2:15 PM CANAL STRUCTURE OPERATOR Ozzie Pascual MD POINT OF CARE TEST ORDER ED Final Result * (ABNORMAL) POCT [id number]-[id number]-HCT, WB - ISTAT (04/30/2019 2:13 PM CANAL STRUCTURE OPERATOR) Hct, POC 25.0(L) 35.6 - 45.5 % [facility] Blood specimen (specimen) 04/30/2019 2:13 PM CANAL STRUCTURE OPERATOR 04/30/2019 2:13 PM CANAL STRUCTURE OPERATOR Ozzie Pascual MD LAB POCT ORDERABLES - DE VICE Final Result [facility] Department [place] [address] * Transfuse RBC (04/30/2019 12:34 PM CANAL STRUCTURE OPERATOR) Blood specimen (specimen) Scout Santana MD BLOOD TRANSFUSION ORDER ED Final Result Performing Organization Address [facility] de Phone Number [facility] Department [place] [address] * Transfuse RBC: 1 Units (04/30/2019 12:34 PM CANAL STRUCTURE OPERATOR) Blood specimen (specimen) Scout Santana MD BLOOD TRANSFUSION ORDER ED Final Result * Prepare RBC: 1 Units (04/30/2019 9:00 AM CANAL STRUCTURE OPERATOR) Pathologist [facility] Product code [id number] [facility] Unit Number [id number] [facility] Product Blood Type OPOS [facility] Dispense Status PRESUMED TRANSFUSED [facility] Blood specimen (specimen) 04/30/2019 9:00 AM CANAL STRUCTURE OPERATOR 04/30/2019 9:00 AM CANAL STRUCTURE OPERATOR Narrative [facility] - 05/01/2019 12:48 AM CANAL STRUCTURE OPERATOR Are special requirements needed? (all products are leukoreduced)->No THE BJ COLLECTION LOCATION IS [facility] ED309 LRRBC # of [id number] Reasons:-Hgb <7 g/dL} Scout Santana MD BLOOD BANK PRODUCT ORDE RABLES Final Result Performing Organization Address [facility] de Phone Number [facility] Department [place] [address] * (ABNORMAL) Differential, auto (04/30/2019 8:05 AM CANAL STRUCTURE OPERATOR) Neutrophil abs 4.8 1.7 - 6.5 K/cumm [facility] Imm gran abs 0.0 0.0 - 0.1 K/cumm [facility] Lymphocyte abs 0.7(L) 0.8 - 3.3 K/cumm [facility] Monocyte abs 0.4 0.2 - 0.8 K/cumm [facility] Eosinophil abs 0.3 0.0 - 0.5 K/cumm [facility] Basophil abs 0.0 0.0 - 0.1 K/cumm [facility] Neutrophil pct 77.1 % [facility] Comment: Interpretive Data Percent cell count reference ranges are not reported, since discordance with absolute values may lead to misinterpretation of CBC data. Current Interpretive Data was last revised on 2017. Imm gran pct 0.3 % [facility] Comment: Interpretive Data Percent cell count reference ranges are not reported, since discordance with absolute values may lead to misinterpretation of CBC data. Current Interpretive Data was last revised on 2017. Lymphocyte pct 11.8 % [facility] Comment: Interpretive Data Percent cell count reference ranges are not reported, since discordance with absolute values may lead to misinterpretation of CBC data. Current Interpretive Data was last revised on 2017. Monocyte pct 6.2 % [facility] Comment: Interpretive Data Percent cell count reference ranges are not reported, since discordance with absolute values may lead to misinterpretation of CBC data. Current Interpretive Data was last revised on 2017. Eosinophil pct 4.3 % [facility] Comment: Interpretive Data Percent cell count reference ranges are not reported, since discordance with absolute values may lead to misinterpretation of CBC data. Current Interpretive Data was last revised on 2017. Basophil pct 0.3 % [facility] Comment: Interpretive Data Percent cell count reference ranges are not reported, since discordance with absolute values may lead to misinterpretation of CBC data. Current Interpretive Data was last revised on 2017. Blood specimen (specimen) 04/30/2019 8:05 AM CANAL STRUCTURE OPERATOR 04/30/2019 8:28 AM CANAL STRUCTURE OPERATOR us Christina Bartlett MD LAB BLOOD ORDERABLES Fi nal Result [facility] Department [place] [address] * (ABNORMAL) CBC with auto differential (04/30/2019 8:05 AM CANAL STRUCTURE OPERATOR) [facility] WBC 6.3 3.8 - 9.9 K/cumm [facility] Hgb 6.7(L) 11.9 - 15.5 g/dL [facility] Hct 22.6(L) 35.6 - 45.5 % [facility] Plt 277 150 - 400 K/cumm [facility] MPV 10.1 9.1 - 12.3 fL [facility] RBC 2.45(L) 3.90 - 5.20 M/cumm [facility] MCV 92.2 81.3 - 96.4 fL [facility] MCH 27.3 27.1 - 33.3 pg [facility] MCHC 29.6(L) 32.3 - 35.7 g/dL [facility] RDW CV 19.1(H) 11.1 - 14.9 % [facility] RDW SD 61.1(H) 35.7 - 48.1 fL [facility] NRBC abs 0.00 0.00 - 0.01 K/cumm [facility] Blood specimen (specimen) 04/30/2019 8:05 AM CANAL STRUCTURE OPERATOR 04/30/2019 8:28 AM CANAL STRUCTURE OPERATOR Narrative [facility] - 04/30/2019 8:36 AM CANAL STRUCTURE OPERATOR THE COLLECTION LOCATION IS [facility] ED309 us Christina Bartlett MD LAB BLOOD ORDERABLES Fi nal Result Performing Organization Address [facility]/ZIP Co de Phone Number [facility] [place] [address] * Transfuse RBC (04/30/2019 3:21 AM CANAL STRUCTURE OPERATOR) Blood specimen (specimen) us Glory Palafox MD BLOOD TRANSFUSION ORDERA BLES Final Result [facility] Department of Laboratories [place], [place] [id number] * Transfuse RBC: 2 Units (04/30/2019 3:21 AM CANAL STRUCTURE OPERATOR) Blood specimen (specimen) Glory Palafox MD BLOOD TRANSFUSION ORDERA BLES Final Result * Transfuse RBC (04/30/2019 2:11 AM CANAL STRUCTURE OPERATOR) Blood specimen (specimen) Glory Palafox MD BLOOD TRANSFUSION ORDERA BLES Final Result [facility] [place] [address] * ED PERIPHERAL LINE INSERTION (04/30/2019 1:06 AM CANAL STRUCTURE OPERATOR) Narrative Re Montez MD - 04/30/2019 1:06 AM CANAL STRUCTURE OPERATOR Re Montez MD ? 04/30/2019 ??7:31 [...] PERIPHERAL LINE INSERTION (04/29/2019 11:49 PM CANAL STRUCTURE OPERATOR) Narrative Re Montez MD - 04/29/2019 11:49 PM CANAL STRUCTURE OPERATOR Angely Hou MD ? 04/29/2019 11:50 [...] Decubitus 2 Views (04/29/2019 10:46 PM CANAL STRUCTURE OPERATOR) Anatomical Region Laterality Modality Body, Abdomen N/A Computed Radiogr aphy 04/29/2019 10:5 9 PM CANAL STRUCTURE OPERATOR Impressions 04/30/2019 3:48 PM CANAL STRUCTURE OPERATOR Supine and upright views of the [...] Palomino M.D. Narrative 04/30/2019 3:48 PM CANAL STRUCTURE OPERATOR EXAMINATION: ??Abdomen with decubitus and/or erect [...] MD IMG XR PROCEDURES Final Result * [place] [facility] ILL/INJURED PATIENT INIT 30-74 MIN (04/29/2019 10:41 PM CANAL STRUCTURE OPERATOR) Narrative Phil Morillo MD - 04/29/2019 10:41 PM CANAL STRUCTURE OPERATOR Phil Morillo MD ? 04/29/2019 10:44 [...] PERIPHERAL LINE INSERTION (04/29/2019 10:10 PM CANAL STRUCTURE OPERATOR) Narrative Phil Morillo MD - 04/29/2019 10:10 PM CANAL STRUCTURE OPERATOR Angely Hou MD ? 04/29/2019 10:11 [...] * Check Sample (04/29/2019 9:36 PM CANAL STRUCTURE OPERATOR) ABO Rh O Positive [facility] HCLL OTHER 04/29/2019 9:36 PM CANAL STRUCTURE OPERATOR 04/29/2019 11:57 PM CANAL STRUCTURE OPERATOR us Phil Morillo MD LAB BLOOD ORDERABLES Final Result [facility] Department [place] [address] * Prepare RBC: 2 Units (04/29/2019 9:10 PM CANAL STRUCTURE OPERATOR) [facility] Product code [id number] [facility] Unit Number [id number] [facility] Product Blood Type OPOS [facility] Dispense Status PRESUMED TRANSFUSED [facility] [id number] [facility] Number [id number] [facility] Product Blood Type OPOS [facility] Dispense Status PRESUMED TRANSFUSED [facility] Blood specimen (specimen) 04/29/2019 9:10 PM CANAL STRUCTURE OPERATOR 04/29/2019 9:11 PM CANAL STRUCTURE OPERATOR Narrative [facility] - 05/01/2019 12:49 AM CANAL STRUCTURE OPERATOR Are special requirements needed? (all products are leukoreduced)->No THE BJ COLLECTION LOCATION IS [facility] ED1-09 LRRBC # of [id number] Reasons:-Hgb <7 g/dL} us Glory Palafox MD BLOOD BANK PRODUCT ORDER ED Final Result [facility] [place] [address] * POCT lactate (04/29/2019 8:39 PM CANAL STRUCTURE OPERATOR) [facility] Lactate POC i-STAT 1.0 0.7 - 2.2 mmol/L [facility] Blood specimen (specimen) 04/29/2019 8:39 PM CANAL STRUCTURE OPERATOR 04/29/2019 8:39 PM CANAL STRUCTURE OPERATOR us Phil Morillo MD LAB POCT ORDERABLES - ZAYNAB CE Final Result [facility] [place] [address] * Haptoglobin (04/29/2019 8:32 PM CANAL STRUCTURE OPERATOR) [facility] Haptoglobin 110.0 30.0 - 200.0 mg/dL [facility] Blood specimen (specimen) 04/29/2019 8:32 PM CANAL STRUCTURE OPERATOR 04/29/2019 9:12 PM CANAL STRUCTURE OPERATOR Philip Cheung MD LAB BLOOD ORDERABLES Final Result Performing Organization Address [facility] Co de Phone Number [facility] Department [place] [address] * Basic metabolic panel (04/29/2019 8:32 PM CANAL STRUCTURE OPERATOR) [facility] Sodium 140 135 - 145 mmol/L [facility] Potassium, pl 3.8 3.3 - 4.9 mmol/L [facility] Chloride 110 97 - 110 mmol/L [facility] CO2 24 22 - 32 mmol/L [facility] Anion gap 6 2 - 15 mmol/L [facility] BUN 13 8 - 25 mg/dL [facility] Creatinine 0.93 0.60 - 1.10 mg/dL [facility] Glucose 86 70 - 199 mg/dL [facility] Comment: Interpretive Data Fasting glucose [...] 2017. Calcium 9.0 8.5 - 10.3 mg/dL [facility] Blood specimen (specimen) 04/29/2019 8:32 PM CANAL STRUCTURE OPERATOR 04/29/2019 8:39 PM CANAL STRUCTURE OPERATOR Phil Morillo MD LAB BLOOD ORDERABLES Final Result Performing Organization Address [facility] Co de Phone Number [facility] Department [place] [address] * Differential, auto (04/29/2019 8:32 PM CANAL STRUCTURE OPERATOR) Neutrophil abs 6.1 1.7 - 6.5 K/cumm [facility] Imm gran abs 0.0 0.0 - 0.1 K/cumm [facility] Lymphocyte abs 1.3 0.8 - 3.3 K/cumm [facility] Monocyte abs 0.4 0.2 - 0.8 K/cumm [facility] Eosinophil abs 0.2 0.0 - 0.5 K/cumm [facility] Basophil abs 0.0 0.0 - 0.1 K/cumm [facility] Neutrophil pct 74.6 % [facility] Comment: Interpretive Data Percent cell count reference ranges are not reported, since discordance with absolute values may lead to misinterpretation of CBC data. Current Interpretive Data was last revised on 2017. Imm gran pct 0.6 % [facility] Comment: Interpretive Data Percent cell count reference ranges are not reported, since discordance with absolute values may lead to misinterpretation of CBC data. Current Interpretive Data was last revised on 2017. Lymphocyte pct 15.9 % [facility] Comment: Interpretive Data Percent cell count reference ranges are not reported, since discordance with absolute values may lead to misinterpretation of CBC data. Current Interpretive Data was last revised on 2017. Monocyte pct 5.4 % [facility] Comment: Interpretive Data Percent cell count reference ranges are not reported, since discordance with absolute values may lead to misinterpretation of CBC data. Current Interpretive Data was last revised on 2017. Eosinophil pct 3.1 % [facility] Comment: Interpretive Data Percent cell count reference ranges are not reported, since discordance with absolute values may lead to misinterpretation of CBC data. Current Interpretive Data was last revised on 2017. Basophil pct 0.4 % [facility] Comment: Interpretive Data Percent cell count reference ranges are not reported, since discordance with absolute values may lead to misinterpretation of CBC data. Current Interpretive Data was last revised on 2017. Blood specimen (specimen) 04/29/2019 8:32 PM CANAL STRUCTURE OPERATOR 04/29/2019 8:38 PM CANAL STRUCTURE OPERATOR Elvis Hall MD LAB BLOOD ORDERABLES F inal Result Performing Organization Address [facility] de Phone Number [facility] Department [place] [address] * (ABNORMAL) Hepatic function panel (04/29/2019 8:32 PM CANAL STRUCTURE OPERATOR) Bilirubin, total 0.2 0.1 - 1.2 mg/dL [facility] Bilirubin, direct <0.2 0.1 - 0.3 mg/dL [facility] Protein, pl 6.1(L) 6.5 - 8.5 g/dL [facility] Albumin 3.4(L) 3.5 - 5.0 g/dL [facility] Alk phos 55 40 - 130 Units/L [facility] ALT 13 7 - 45 Units/L [facility] AST 20 10 - 45 Units/L [facility] Blood specimen (specimen) 04/29/2019 8:32 PM CANAL STRUCTURE OPERATOR 04/29/2019 8:39 PM CANAL STRUCTURE OPERATOR Narrative [facility] - 04/29/2019 9:40 PM CANAL STRUCTURE OPERATOR THE BJ COLLECTION LOCATION IS [place] [address] us Phil Morillo MD LAB BLOOD ORDERABLES Final Result Performing Organization Address [facility] de Phone Number [facility] [place] [address] * Type and screen (04/29/2019 8:32 PM CANAL STRUCTURE OPERATOR) Pathologist [facility] Krishan, indirect Negative [facility] ABO Rh O Positive [facility] Blood specimen (specimen) 04/29/2019 8:32 PM CANAL STRUCTURE OPERATOR 04/29/2019 8:40 PM CANAL STRUCTURE OPERATOR Narrative [facility] - 04/29/2019 9:37 PM CANAL STRUCTURE OPERATOR Has the patient had Daratumumab (Darzalex) in the past 6 months?->Unknown THE COLLECTION LOCATION IS [place] [address] Phil Morillo MD LAB BLOOD BANK TEST ORDERA BLES Final Result Performing Organization Address [facility]/[place] [address] * aPTT (04/29/2019 8:32 PM CANAL STRUCTURE OPERATOR) aPTT 29 25 - 37 sec [facility] Comment: Interpretive data Heparin therapeutic range: 60-90 seconds Range based on correlation with therapeutic heparin activity range of 0.3-0.7 units/ml. Current interpretive data was last revised on 2019. Blood specimen (specimen) 04/29/2019 8:32 PM CANAL STRUCTURE OPERATOR 04/29/2019 8:45 PM CANAL STRUCTURE OPERATOR Narrative [facility] - 04/29/2019 9:10 PM CANAL STRUCTURE OPERATOR THE COLLECTION LOCATION IS us Elvis Hall MD LAB BLOOD ORDERABLES F inal Result Performing Organization Address [facility] [place] [address] * (ABNORMAL) Protime-INR (04/29/2019 8:32 PM CANAL STRUCTURE OPERATOR) PT 14.3(H) 8.6 - 13.0 sec [facility] INR 1.3(H) 0.8 - 1.2 [facility] Comment: Interpretive data Oral anticoagulant therapeutic ranges: Venous thromboembolism prophylaxis or treatment: 2.0-3.0 CARDIOLOGY Standard range: 2.0-3.0 High-intensity range: 2.5-3.5 Refer to indication-specific guidelines for appropriate target ranges for prosthetic heart valve replacement. Current interpretive data was last revised on 2019. Blood specimen (specimen) 04/29/2019 8:32 PM CANAL STRUCTURE OPERATOR 04/29/2019 8:45 PM CANAL STRUCTURE OPERATOR Narrative [facility] - 04/29/2019 9:10 PM CANAL STRUCTURE OPERATOR THE COLLECTION LOCATION IS us Elvis Hall MD LAB BLOOD ORDERABLES F inal Result Performing Organization Address [facility] de Phone [place] [address] * (ABNORMAL) CBC with auto differential (04/29/2019 8:32 PM CANAL STRUCTURE OPERATOR) [facility] WBC 8.2 3.8 - 9.9 K/cumm [facility] Hgb 5.6(C) 11.9 - 15.5 g/dL [facility] Comment:Critical result call ed to and read back by ROCIO CROWLEY RN on 04 29 2019 at 2053 to [facility]. Hct 19.3(L) 35.6 - 45.5 % [facility] Plt 315 150 - 400 K/cumm [facility] MPV 10.3 9.1 - 12.3 fL [facility] RBC 2.07(L) 3.90 - 5.20 M/cumm [facility] MCV 93.2 81.3 - 96.4 fL [facility] MCH 27.1 27.1 - 33.3 pg [facility] MCHC 29.0(L) 32.3 - 35.7 g/dL [facility] RDW CV 19.9(H) 11.1 - 14.9 % [facility] RDW SD 64.6(H) 35.7 - 48.1 fL [facility] NRBC abs 0.00 0.00 - 0.01 K/cumm [facility] Blood specimen (specimen) 04/29/2019 8:32 PM CANAL STRUCTURE OPERATOR 04/29/2019 8:38 PM CANAL STRUCTURE OPERATOR Narrative [facility] - 04/29/2019 8:53 PM CANAL STRUCTURE OPERATOR THE COLLECTION LOCATION IS us Elvis Hall MD LAB BLOOD ORDERABLES F inal Result [facility] Department [place] [address] * ED PERIPHERAL LINE INSERTION (04/29/2019 8:26 PM CANAL STRUCTURE OPERATOR) Narrative Phil Morillo MD - 04/29/2019 8:26 PM CANAL STRUCTURE OPERATOR Angely Hou MD ? 04/29/2019 ??8:27 [...] at 2303 New Bag 04/29/2019 11:50 PM CANAL STRUCTURE OPERATOR 100 mL/hr 100 mL/hr ferrous sulfate tablet 325 mg 325 mg (65 mg of elemental iron), oral, Daily with breakfast, First dose on Sat05/01/19 at 0800, Indications: Iron Deficiency AnemiaIndications:Iron Deficiency Anemia Given 05/02/2019 8:43 AM CANAL STRUCTURE OPERATOR 325 mg Given 05/01/2019 9:12 AM CANAL STRUCTURE OPERATOR 325 mg morphine injection 2 mg 2 mg, intravenous, Administer over 4 Minutes, Once, On Sat04/29/19 at 2132, For 1 dose Given 04/29/2019 9:35 PM CANAL STRUCTURE OPERATOR 2 m g morphine injection 4 mg 4 mg, intravenous, Administer over 4 Minutes, Every 4 hours PRN, 1st line for pain, Starting on Sat04/30/19 at 0316 Given 05/02/2019 8:43 AM CANAL STRUCTURE OPERATOR 4 mg Given 05/02/2019 3:15 AM CANAL STRUCTURE OPERATOR 4 mg Given 05/01/2019 9:59 PM CANAL STRUCTURE OPERATOR 4 mg ondansetron (ZOFRAN) injection 4 mg 4 mg, intravenous, Administer over 2 Minutes, Every 4 hours PRN, nausea, vomiting, Starting on Sat04/30/19 at 0316 pantoprazole (PROTONIX) injection 40 mg 40 mg, intravenous, Administer over 2 Minutes, Once, On Sat04/29/19 at 2023, For 1 dose, Indications: GI BleedIndications:GI Bleed Given 04/29/2019 9:03 PM CANAL STRUCTURE OPERATOR 40 mg pantoprazole (PROTONIX) injection 40 mg 40 mg, intravenous, Administer over 2 Minutes, 2 times daily, First dose on Sat04/30/19 at 2100, Indications: GI BleedIndications:GI Bleed Given 05/02/2019 8:43 AM CANAL STRUCTURE OPERATOR 40 mg Given 05/01/2019 9:02 PM CANAL STRUCTURE OPERATOR 40 mg Given 05/01/2019 9:11 AM CANAL STRUCTURE OPERATOR 40 mg ramelteon (ROZEREM) tablet 8 mg 8 mg, oral, Nightly PRN, sleep, Starting on Sat05/01/19 at 0024, Indications: Sleep-Onset InsomniaIndications:Sleep-Onset Insomnia Given 05/01/2019 9:02 PM CANAL STRUCTURE OPERATOR 8 m g Given 05/01/2019 12:41 AM CANAL STRUCTURE OPERATOR 8 mg sodium chloride 0.9% flush 0.5-20 mL 0.5-20 mL, intra-catheter, Every 8 hours scheduled, First dose on Sat04/30/19 at 1700, Flush volume based on line type and size. Given 05/01/2019 9:02 PM CANAL STRUCTURE OPERATOR 10 mL Given 05/01/2019 4:16 AM CANAL STRUCTURE OPERATOR 10 mL Given 04/30/2019 10:26 PM CANAL STRUCTURE OPERATOR 10 mL sodium chloride 0.9% flush 0.5-20 mL 0.5-20 mL, intra-catheter, Every 8 hours scheduled, First dose on Sat04/30/19 at 1415, Flush volume based on line type and size. Given 05/01/2019 9:02 PM CANAL STRUCTURE OPERATOR 10 mL Given 05/01/2019 5:43 PM CANAL STRUCTURE OPERATOR 10 mL Given 05/01/2019 1:11 PM CANAL STRUCTURE OPERATOR 10 mL sodium chloride 0.9% flush 0.5-20 mL 0.5-20 mL, intra-catheter, As needed, line care, Starting on Amber 04/30/19 at 1334, Flush volume based on line type and size. Flush before and after each use. Given 05/02/2019 3:15 AM CANAL STRUCTURE OPERATOR 10 mL Given 05/01/2019 10:00 PM CANAL STRUCTURE OPERATOR 10 mL Given 05/01/2019 9:12 AM CANAL STRUCTURE OPERATOR 10 mL sodium chloride 0.9% infusion 30 mL/hr, intravenous, Continuous, Starting on Amber 04/30/19 at 1415 New Bag 04/30/2019 1:47 PM CANAL STRUCTURE OPERATOR 30 mL/hr 30 mL/hr sodium chloride 0.9% IVPB 0-250 mL 0-250 mL, intravenous, Once, On Sat04/29/19 at 2112, For 1 dose, Prime blood tubing and administer amount needed to clear line (usually 50-100 mL) after transfusion complete. New Bag 04/30/2019 12:45 AM CANAL STRUCTURE OPERATOR 250 mL documented in this encounter [...] mcg tablet Take 50 mcg by mouth counting machine operator before breakfast 0 added in this encounter Active and Recently Administered Medications Times are shown in CANAL STRUCTURE OPERATOR. Scheduled Medication Order 04/30/2019 05/01/2019 05/02/2019 [...] Transfer Provider - Reason: Patient not available)[id number] ([facility] Unhold - Provider: Automatic Transfer Provider) ramelteon [...] 04/29/2019 documented in this encounter Care Teams Manager Money Relationship Specialty Start Date End Date Gerard Sutton MD PCP - General 11/21/18 03/27/20 Unknown, Notinfile 02/18/18 03/27/20 documented as of this encounter
--- OUTSIDE RECORDS SUMMARY | 2024-03-24 19:45 | XMS_ITS | Encounter Summary ---
Author Organization [facility] Address [address] [address] Care Team Providers Care De Alcoholizer Name Role Phone Haritha Tse NP Primary Care Provider [phone] Reason for Referral * Procedure (Routine) - Closed Specialty Diagnoses / Procedures Referred By Contac t Referred To Contact Diagnoses Primary osteoarthritis of both knees Procedures Large Joint (Hip, Knee, Shoulder) Injection: R knee Gianni Kc PA [address] [place] [address] [address] [place] [address] Phone: tel: fax: [facility] Referral ID Status Reason Start Date Expiration Date Visits Re quested Visits Authorized [id number] Closed 10/18/2022 11/17/2023 1 1 * Diagnostic Imaging (Routine) - Closed Specialty Diagnoses / Procedures Referred By Contac t Referred To Contact Diagnoses Pain in both knees, unspecified chronicity Procedures XR Pelvis 1 or 2 Views Kaiser Nielson MD [address] [facility] [address] [place] [address] Phone: tel: fax: [facility] Referral ID Status Reason Start Date Expiration Date Visits Re quested Visits Authorized [id number] Closed 10/18/2022 11/17/2023 1 1 Reason for Visit * Reason Comments Pain Pain Encounter Details Date Type Department Care Team (Late st Contact Info) Description 10/18/2022 9:00 AM CDT Office Visit [facility] Orthopedic and Sports Medicine [address] [place] [id number] Gianni Kc PA [address] [place] [address] [address] [address] Primary osteoarthritis of both knees [...] care of an orthopedic provider in the [facility] several years ago prior to moving to [facility]. She was treated in [place] by Orthopedics as well as pain management. She is chronically on hydrocodone for her knee pain. When she was in [place] she underwent a geniculate nerve block which [...] she completed her move back to the [facility] she was walking independently without any assistance. [...] of Cellulitis, CHF (congestive heart failure) (CMS/HCC) ([facility]), DVT (deep venous thrombosis) (CMS/HCC) ([facility]), DVT (deep venous thrombosis) (CMS/HCC) ([facility]), Hypertension,Lymph edema, and Primary osteoarthritis of knees, [...] are noted bilaterally with end-stage changes and [id number] changes noted in all compartments of the [...] AM CDT Primary osteoarthritis of both knees [place] ARTHROCENTESIS ASPIR&/INJ MAJOR JT/BURSA W/O US Routine [...] are noted bilaterally with end-stage changes and [id number] changes noted in all compartments of the [...] IMG XR PROCEDURES Final Resu lt * [place] ARTHROCENTESIS ASPIR&/INJ MAJOR JT/BURSA W/O US (10/18/2022 [...] Knee documented in this encounter Care Teams De Alcoholizer Relationship Specialty Start Date End Date Haritha Tse NP PCP - General Internal Medicine 03/28/20 10/29/22 documented as of this encounter
--- OUTSIDE RECORDS SUMMARY | 2024-03-24 19:45 | XMS_ITS | Encounter Summary ---
Author Organization [facility] Address [address] [place] [address] Care Team Providers Care Service Order Dispatcher Name Role Phone Unknown, Notinfile Unavailable Unavailable Gerard Sutton MD Primary Care Provider [phone] Encounter Details Date Type Department Care Team (Late st Contact Info) Description 04/30/2019 2:15 PM CHANNELING MACHINE RUNNER Anesthesia Event [facility] [address] [place] [phone] Hector Alvarenga MD [address] [place] [address] Abigail Whitney CRNA [address] [place] [address] Anesthesia Record Procedure Summary Procedure Name Responsible [...] Procedure Summary Date: 04/30/19 Room / Location: [facility] OR POD 5 ROOM 224 / [facility] Anesthesia Start: 1415 Anesthesia Stop: 1454 [...] ligation 2009 SpO2 100% BMI 44.64 kg/m?? NELING MACHINE RUNNER * Anesthesia Preprocedure Evaluation - Hector Alvarenga [...] Medication protocol when under care of a CRIMINAL INVESTIGATOR Planned anesthesia: General and MAC Team communication plan: oral ET tube and mask Induction: Induction: intravenous. Postoperative Plan: Postoperative administration opioids intended. No postoperative mechanical ventilation intended. Informed Consent: Discussed plan with CRIMINAL INVESTIGATOR. Anesthesia plan and risks discussed with patient. [...] and agree to proceed. All questions answered. NELING MACHINE RUNNER documented in this encounter Plan of Treatment [...] 1425, Anesthesia Intra-op Given 04/30/2019 2:25 PM CHANNELING MACHINE RUNNER 60 mg propofol (DIPRIVAN) IV intravenous, Continuous PRN, Starting on Amber 04/30/19 at 1425, Anesthesia Intra-op Rate/Dose Change 04/30/2019 2:34 PM CHANNELING MACHINE RUNNER 120 mcg/kg/min 93.1 mL/hr New Bag 04/30/2019 2:25 PM CHANNELING MACHINE RUNNER 100 mcg/kg/min 77.58 mL/ hr propofol (DIPRIVAN) IV intravenous, As needed, Starting on Amber 04/30/19 at 1425, Anesthesia Intra-op Given 04/30/2019 2:31 PM CHANNELING MACHINE RUNNER 50 mg Given 04/30/2019 2:28 PM CHANNELING MACHINE RUNNER 50 mg Given 04/30/2019 2:25 PM CHANNELING MACHINE RUNNER 50 mg documented in this encounter Care Teams Service Order Dispatcher Relationship Specialty Start Date End Date Gerard Sutton MD PCP - General 11/21/18 03/27/20 Unknown, Notinfile 02/18/18 03/27/20 documented as of this encounter
--- OUTSIDE RECORDS SUMMARY | 2024-03-24 19:46 | XMS_ITS | Encounter Summary ---
Author Organization [facility] Healthcare Address [address] [place] [address] Care Team Providers Care Dye Range Feeder Name Role Phone Unknown, Notinfile Primary Care Provider Unavail able Unknown, Notinfile Unavailable Unavailable Encounter Details Date Type Department Care Team (Late st Contact Info) Description 07/19/2018 6:13 PM CDT - 07/22/2018 2:40 PM CDT Hospital Encounter [facility] ADMIT Phil Chaves MD [facility] [place] [address] Discharge Disposition: Discharge to home or self [...] CDT) Sodium 140 135 - 145 mmol/L [facility] Potassium 3.7 3.3 - 5.1 mmol/L [facility] Chloride 105 96 - 108 mmol/L [facility] Carbon Dioxide 25 22 - 32 mmol/L [facility] Anion Gap 10 7 - 16 [facility] Glucose 99 70 - 100 mg/dL [facility] BUN 8 8 - 25 mg/dL [facility] Creatinine 0.8 0.5 - 1.1 mg/dL [facility] Comment: NOTE: Estimated GFR (Cockroft-Gault) will NOT be calculated unless patient Height and Weight were entered. Also, Kidney Disease Stage (GFR) and Estimated GFR (Cockroft-Gault) will NOT be calculated if Creatinine result is <0.2. Kidney Disease Stage >90 mL/MIN [facility] Comment: NOTE; ??The GFR is an [...] on dialysis Est GFR (Cockcroft-G) 123 ml/MIN [facility] Comment: Estimated GFR(Cockroft-Gault)is used to calculate patient medication dosage Calcium 9.9 8.6 - 10.3 mg/dL [facility] 07/22/2018 5:56 AM CDT 07/22/2018 6:36 AM CDT Narrative Resulting Agency Comment IN us Paula Ayers MD LAB BLOOD ORDERABLES Final Res ult [facility] [address] [place] [address], [facility] [phone] * (ABNORMAL) CBC with auto differential (07/22/2018 5:56 AM CDT) WBC 6.6 3.8 - 9.9 X10 3/ul [facility] RBC 4.39 3.90 - 5.20 x10 6/ul [facility] Comment: Results reviewed Hemoglobin 8.8(L) 11.9 - 15.5 g/dL [facility] Hct 32.0(L) 35.6 - 45.5 % [facility] MCV 72.9(L) 81.3 - 96.4 fl [facility] MCH 20.0(L) 27.1 - 33.3 pg [facility] MCHC 27.5(L) 32.3 - 35.7 g/dl [facility] RDW 21.6(H) 11.1 - 14.9 % [facility] Plt Count 229 150 - 400 x10 3/ul [facility] MPV 9.5 9.1 - 12.3 fl [facility] Neut % 69.9 % [facility] Immature Gran % 0.3 % [facility] Lymph % 17.7 % [facility] Hudson % 7.0 % [facility] Eos % 4.6 % [facility] AUTO BASO % 0.5 % [facility] NEUTROPHIL ABS # 4.6 1.7 - 6.5 x10 3/ul [facility] Immature Gran # 0.0 0.0 - 0.1 x10 3/ul [facility] Absolute Lymphs (auto) 1.2 0.8 - 3.3 x10 3/ul [facility] Absolute Monos (auto) 0.5 0.2 - 0.8 x10 3/ul [facility] Absolute Eos (auto) 0.3 0.0 - 0.5 x10 3/ul [facility] BASOPHIL ABS # 0.0 0.0 - 0.1 x10 3/ul [facility] Nucleat RBC Rel Count 0.0 #/100WBC [facility] NRBC abs 0.00 0.00 - 0.01 x10 3/ul [facility] Absolute Neutrophils 4,600 200 - 8,000 /ul [facility] 07/22/2018 5:56 AM CDT 07/22/2018 6:36 AM CDT Narrative Resulting Agency Comment IN us Paula Ayers MD LAB BLOOD ORDERABLES Final Res ult [facility] [address] [place] [address], [facility] [phone] * (ABNORMAL) Hemoglobin and hematocrit (07/21/2018 12:32 PM CDT) Hemoglobin 7.8(L) 11.9 - 15.5 g/dL [facility] Hct 27.9(L) 35.6 - 45.5 % [facility] 07/21/2018 12:3 2 PM CDT 07/21/2018 12:36 PM CDT Narrative Resulting Agency Comment IN us Jonathan Glover MD LAB BLOOD ORDERABLES F inal Result [facility] [address] [place] [address], [facility] [phone] * Basic metabolic panel (07/21/2018 4:26 AM CDT) Sodium 137 135 - 145 mmol/L [facility] Potassium 3.5 3.3 - 5.1 mmol/L [facility] Chloride 105 96 - 108 mmol/L [facility] Carbon Dioxide 23 22 - 32 mmol/L [facility] Anion Gap 9 7 - 16 [facility] Glucose 82 70 - 100 mg/dL [facility] BUN 8 8 - 25 mg/dL [facility] Creatinine 0.7 0.5 - 1.1 mg/dL [facility] Comment: NOTE: Estimated GFR (Cockroft-Gault) will NOT be calculated unless patient Height and Weight were entered. Also, Kidney Disease Stage (GFR) and Estimated GFR (Cockroft-Gault) will NOT be calculated if Creatinine result is <0.2. Kidney Disease Stage >90 mL/MIN [facility] Comment: NOTE; ??The GFR is an [...] on dialysis Est GFR (Cockcroft-G) 141 ml/MIN [facility] Comment: Estimated GFR(Cockroft-Gault)is used to calculate patient medication dosage Calcium 9.5 8.6 - 10.3 mg/dL [facility] 07/21/2018 4:26 AM CDT 07/21/2018 6:07 AM CDT Narrative Resulting Agency Comment IN us Paula Ayers MD LAB BLOOD ORDERABLES Final Res ult [facility] [address] [place] [address], [facility] [phone] * (ABNORMAL) CBC with auto differential (07/21/2018 4:26 AM CDT) WBC 5.9 3.8 - 9.9 X10 3/ul [facility] RBC 3.43(L) 3.90 - 5.20 x10 6/ul [facility] Hemoglobin 6.7(LL) 11.9 - 15.5 g/dL [facility] Comment: CRITICAL VALUE CALLED and REPEATED. at:0628 07/21/18 by:Roland Kendall to:March Hct 23.1(L) 35.6 - 45.5 % [facility] MCV 67.3(L) 81.3 - 96.4 fl [facility] MCH 19.5(L) 27.1 - 33.3 pg [facility] MCHC 29.0(L) 32.3 - 35.7 g/dl [facility] RDW 19.9(H) 11.1 - 14.9 % [facility] Plt Count 188 150 - 400 x10 3/ul [facility] MPV 9.2 9.1 - 12.3 fl [facility] Neut % 64.4 % [facility] Immature Gran % 0.3 % [facility] Lymph % 19.3 % [facility] Hudson % 9.3 % [facility] Eos % 6.4 % [facility] AUTO BASO % 0.3 % [facility] NEUTROPHIL ABS # 3.8 1.7 - 6.5 x10 3/ul [facility] Immature Gran # 0.0 0.0 - 0.1 x10 3/ul [facility] Absolute Lymphs (auto) 1.1 0.8 - 3.3 x10 3/ul [facility] Absolute Monos (auto) 0.6 0.2 - 0.8 x10 3/ul [facility] Absolute Eos (auto) 0.4 0.0 - 0.5 x10 3/ul [facility] BASOPHIL ABS # 0.0 0.0 - 0.1 x10 3/ul [facility] Nucleat RBC Rel Count 0.0 #/100WBC [facility] NRBC abs 0.00 0.00 - 0.01 x10 3/ul [facility] Absolute Neutrophils 3,800 200 - 8,000 /ul [facility] 07/21/2018 4:26 AM CDT 07/21/2018 6:07 AM CDT Narrative Resulting Agency Comment IN us Paula Ayers MD LAB BLOOD ORDERABLES Final Res ult [facility] [address] [place] [address] * PROCEDURE - RESULT (07/21/2018 12:00 AM [...] ?? Age: 47 ?Sex: Female ? MR#: [id number] ?? Loc: ??C138-01 ? RADIOLOGY REPORT ?? Order #[id number] ?? Ultrasound ? US Duplex Scan Limited [...] 2:37 PM ?? T: ? Report ID: [id number] ?? Reading Location: ??[id number] ? REPORT ELECTRONICALLY SIGNED IN OTHER VENDOR SYSTEM ?? Resulting Agency Comment I Procedure Note Jc Collier MD - 07/21/2018 Patient Name: TIARRA HAN Dr: Phil Chaves MD D.O.B: 1970 Exam Date: 07/21/18 0000 Age: 47 Sex: Female MR#: [id number] Loc: C138-01 RADIOLOGY REPORT Order #[id number] Ultrasound US Duplex Scan Limited Signed EXAM [...] signed by Jc HERNANDEZ T: Report ID: [id number] Reading Location: [place] [address] REPORT ELECTRONICALLY SIGNED IN OTHER VENDOR SYSTEM [...] ?? Age: 47 ?Sex: Female ? MR#: [id number] ?? Loc: ??C138-01 ? RADIOLOGY REPORT ?? Order #[id number] ?? Ultrasound ? US Pelvic and Transvaginal [...] 2:37 PM ?? T: ? Report ID: [id number] ?? Reading Location: ??[id number] ? REPORT ELECTRONICALLY SIGNED IN OTHER VENDOR SYSTEM ?? Resulting Agency Comment I Procedure Note Jc Collier MD - 07/21/2018 Patient Name: TIARRA HAN Nathan Dr: Dylan Kang DO, D.O.B: 1970 Exam Date: 07/21/18 0000 Age: 47 Sex: Female MR#: [id number] Loc: C138-01 RADIOLOGY REPORT Order #[id number] Ultrasound US Pelvic and Transvaginal Signed EXAM [...] Jc Collier M.D. RL T: Report ID: [id number] Reading Location: [id number] REPORT ELECTRONICALLY SIGNED IN OTHER VENDOR SYSTEM Result [facility] Dylan Kang DO IM US PROCEDURES Final Result * (ABNORMAL) Hemoglobin and hematocrit (07/20/2018 4:55 PM CDT) Hemoglobin 7.7(L) 11.9 - 15.5 g/dL [facility] Hct 28.0(L) 35.6 - 45.5 % [facility] 07/20/2018 4:55 PM CDT 07/20/2018 5:19 PM CDT Narrative Resulting Agency Comment IN Result [facility] Paula Ayers MD LAB BLOOD ORDERABLES Final Res ult [place] [id number] [place] [address], [facility] [phone] * Ferritin (07/20/2018 2:38 PM CDT) Ferritin 47.9 12.0 - 263.0 ng/mL [facility] Comment: Female: Premenopause ?13.0-150.0 ng/mL Female: Postmenopause ?? 12.0-263.0 ng/mL 07/20/2018 2:38 PM CDT 07/20/2018 3:20 PM CDT Narrative Resulting Agency Comment IN Caren D. Eslinger OPERATING ENGINEER APPRENTICE LAB BLOOD ORDERABLES Final Result [address] [phone] * Vitamin B12 and Folate (07/20/2018 2:38 PM CDT) Vitamin B12 236 230 - 1,250 pg/mL [facility] Folate 13.6 ng/mL [facility] Comment: Reference Range ??> 5.0 ng/mL Folate has been standardized against the WHO International Standard [facility] code: 07/20/2018 2:38 PM CDT 07/20/2018 3:20 PM CDT Narrative Resulting Agency Comment IN Caren Gipson NP LAB BLOOD ORDERABLES Final Result Performing Organization Address City/[facility]/ZIP Co de Phone Number [address] [phone] * (ABNORMAL) Iron profile w/ IBC (07/20/2018 2:38 PM CDT) Pathologist [facility] [place] Iron 25(L) 37 - 145 ug/dL [facility] TIBC 381 228 - 428 ug/dL [facility] Transferrin % Sat 7(L) 20 - 50 % [facility] 07/20/2018 2:38 PM CDT 07/20/2018 3:20 PM CDT Narrative Resulting Agency Comment IN Caren Gipson OPERATING ENGINEER APPRENTICE LAB BLOOD ORDERABLES Final Result [address] [phone] * ECG 12 lead (07/20/2018 10:09 AM CDT) Ventricular Rate EKG/Min 87 BPM [facility] Atrial Rate 87 BPM [facility] NE-Interval (MSEC) 168 ms [facility] QRS-Interval (MSEC) 88 ms [facility] QT-Interval (MSEC) 378 ms [facility] QTc 454 ms [facility] P [place] 46 degrees [facility] R [place] -10 degrees [facility] T [place] 14 degrees [facility] Diagnosis Normal sinus rhythm Minimal voltage criteria for LVH, may be normal variant Borderline ECG When compared with ECG of 19-JUL-2018 20:20, No significant change was found [facility] 07/20/2018 10:0 9 AM CDT 07/20/2018 12:00 PM CDT Narrative Resulting Agency Comment INPAT us Phil Chaves MD ECG ORDERABLES Final Result Performing Organization Address [facility] Co de Phone Number [address] * H. pylori antibody, IgG (07/20/2018 4:08 AM CDT) H. pylori IgG NEGATIVE NEGATIVE [facility] 07/20/2018 4:08 AM CDT 07/20/2018 5:14 AM CDT Narrative Resulting Agency Comment IN us Phil Chaves MD LAB BLOOD ORDERABLES Final R esult Performing Organization Address [facility] Co de Phone Number [address] [phone] * ABO / Rh Confirmation Testing (07/20/2018 4:08 AM CDT) Blood Type Confirm O POSITIVE [facility] 07/20/2018 4:08 AM CDT 07/20/2018 5:14 AM CDT Narrative Resulting Agency Comment IN Phil Chaves MD LAB BLOOD ORDERABLES Final R esult Performing Organization Address [facility] Co de Phone Number [address] [phone] * Hemoglobin A1c (07/20/2018 4:08 AM CDT) Hemoglobin A1c % 4.8 4.0 - 5.6 % [facility] Comment: ADA 2016 GUIDELINES: ??Initial Diagnostic Criteria ? HbA1c Result: ?Interpretation: ?<5.7% ? Normal ?5.7-6.4% ?At risk for diabetes mellitus ?>=6.5% ?Consistent with diabetes mellitus ??Diabetes monitoring ? Target value (ADA Recommended) ?? <7% 07/20/2018 4:08 AM CDT 07/20/2018 5:14 AM CDT Narrative [facility] - 07/20/2018 6:09 AM CDT Comment In AM Resulting Agency Comment IN us Phil Chaves MD LAB BLOOD ORDERABLES Final R esult [facility] [address] [place] [address], [facility] [phone] * (ABNORMAL) Comprehensive metabolic panel (07/20/2018 4:08 AM CDT) Pathologist [facility] [place] Sodium 142 135 - 145 mmol/L [facility] Potassium 3.8 3.3 - 5.1 mmol/L [facility] Chloride 110(H) 96 - 108 mmol/L [facility] Carbon Dioxide 24 22 - 32 mmol/L [facility] Anion Gap 8 7 - 16 [facility] Glucose 91 70 - 100 mg/dL [facility] BUN 12 8 - 25 mg/dL [facility] Creatinine 0.7 0.5 - 1.1 mg/dL [facility] Comment: NOTE: Estimated GFR (Cockroft-Gault) will NOT be calculated unless patient Height and Weight were entered. Also, Kidney Disease Stage (GFR) and Estimated GFR (Cockroft-Gault) will NOT be calculated if Creatinine result is <0.2. Kidney Disease Stage >90 mL/MIN [facility] Comment: NOTE; ??The GFR is an [...] on dialysis Est GFR (Cockcroft-G) 141 ml/MIN [facility] Comment: Estimated GFR(Cockroft-Gault)is used to calculate patient medication dosage Calcium 9.1 8.6 - 10.3 mg/dL [facility] Total Protein 6.5 6.4 - 8.3 g/dL [facility] Albumin 3.1(L) 3.5 - 5.0 g/dL [facility] Globulin 3.4 2.3 - 3.5 gm/dL [facility] Albumin/Globulin Ratio 0.9(L) 1.1 - 1.8 [facility] Total Bilirubin 0.5 0.0 - 1.2 mg/dL [facility] AST 18 0 - 32 U/L [facility] ALT 9 0 - 33 U/L [facility] Alkaline Phosphatase 73 35 - 104 U/L [facility] 07/20/2018 4:08 AM CDT 07/20/2018 5:14 AM CDT Narrative [facility] - 07/20/2018 6:09 AM CDT Comment In AM Resulting Agency Comment IN Phil Chaves MD LAB BLOOD ORDERABLES Final R esult Performing Organization Address [facility] Co de Phone Number [address] [phone] * aPTT (07/20/2018 4:08 AM CDT) APTT 28 26 - 33 SECONDS [facility] 07/20/2018 4:08 AM CDT 07/20/2018 5:14 AM CDT Narrative Resulting Agency Comment IN Phil Chaves MD LAB BLOOD ORDERABLES Final R [facility] Performing Organization Address [facility] de Phone Number [address] [phone] * (ABNORMAL) Protime-INR (07/20/2018 4:08 AM CDT) PT 15.1(H) 11.8 - 14.5 SECONDS [facility] INR 1.18 [facility] Comment: Recommended Therapeutic range for [...] MD LAB BLOOD ORDERABLES Final R esult [facility] [address] [place] [address], [facility] [phone] * (ABNORMAL) CBC with auto differential (07/20/2018 4:08 AM CDT) WBC 5.6 3.8 - 9.9 X10 3/ul [facility] RBC 3.72(L) 3.90 - 5.20 x10 6/ul [facility] Hemoglobin 7.3(L) 11.9 - 15.5 g/dL [facility] Hct 26.5(L) 35.6 - 45.5 % [facility] MCV 71.2(L) 81.3 - 96.4 fl [facility] MCH 19.6(L) 27.1 - 33.3 pg [facility] MCHC 27.5(L) 32.3 - 35.7 g/dl [facility] RDW 19.8(H) 11.1 - 14.9 % [facility] Plt Count 199 150 - 400 x10 3/ul [facility] MPV 10.0 9.1 - 12.3 fl [facility] Neut % 65.5 % [facility] Immature Gran % 0.2 % [facility] Lymph % 20.0 % [facility] Hudson % 8.9 % [facility] Eos % 5.0 % [facility] AUTO BASO % 0.4 % [facility] NEUTROPHIL ABS # 3.7 1.7 - 6.5 x10 3/ul [facility] Immature Gran # 0.0 0.0 - 0.1 x10 3/ul [facility] Absolute Lymphs (auto) 1.1 0.8 - 3.3 x10 3/ul [facility] Absolute Monos (auto) 0.5 0.2 - 0.8 x10 3/ul [facility] Absolute Eos (auto) 0.3 0.0 - 0.5 x10 3/ul [facility] BASOPHIL ABS # 0.0 0.0 - 0.1 x10 3/ul [facility] Nucleat RBC Rel Count 0.0 #/100WBC [facility] NRBC abs 0.00 0.00 - 0.01 x10 3/ul [facility] Absolute Neutrophils 3,700 200 - 8,000 /ul [facility] 07/20/2018 4:08 AM CDT 07/20/2018 5:14 AM CDT Narrative Resulting Agency Comment IN us Phong Delaney MD LAB BLOOD ORDERABLES Final Re sult [facility] [address] [place] [address], [facility] [phone] * Drug Screen, Urine without Confirmation (07/19/2018 10:05 PM CDT) Pathologist [facility] [place] Amphetamines NOT DETECTED [facility] Comment: This assay uses 500 ng/mL as a cutoff for a positive result. Barbiturates NOT DETECTED [facility] Comment: This assay uses 200 ng/mL as a cutoff for a positive result. Benzodiazepines NOT DETECTED [facility] Comment: This assay uses 100 ng/mL as a cutoff for a positive result. Cannabinoids NOT DETECTED [facility] Comment: This assay uses 50 ng/mL as a cutoff for a positive result. Cocaine DETECTED [facility] Comment: This assay uses 150 ng/mL as a cutoff for a positive result. Opiates DETECTED [facility] Comment: This assay uses 300 ng/mL as a cutoff for a positive result. Urine methadone NOT DETECTED [facility] Comment: This assay uses 300 ng/mL as a cutoff for a positive result. Urine phencyclidine plus NOT DETECTED [facility] Comment: This assay uses 25 ng/mL as a cutoff for a positive result. Oxycodone NOT DETECTED [facility] Comment: This assay uses 100 ng/mL as a cutoff for a positive result. Urine Creatinine/JESUS 147.0 mg/dL [facility] Comment: If Creatinine is < 40 mg/dL, recollection is suggested. 07/19/2018 10:0 5 PM CDT 07/19/2018 10:54 PM CDT Narrative [facility] - 07/19/2018 11:20 PM CDT Collected By dr Sera Patel Comment IN Phong Delaney MD LAB URINE ORDERABLES Final Re sult [facility] [address] [place] [address], [facility] [phone] * (ABNORMAL) Urinalysis, Complete (07/19/2018 10:05 PM CDT) Ur Collection Type CLEAN CATCH [facility] Urine Color RED YELLOW [facility] Urine Clarity [facility] Urine Glucose (UA) NORMAL NORMAL mg/dL [facility] Urine Bilirubin NEGATIVE NEGATIVE mg/dl [facility] Urine Ketones NEGATIVE NEGATIVE mg/dL [facility] Ur Specific [place] 1.020 1.005 - 1.025 [facility] Urine Blood >=1.0 NEGATIVE mg/dl [facility] Urine pH 6.0 5.0 - 8.0 [facility] Urine Protein 100(A) NEGATIVE mg/dL [facility] Urine Urobilinogen 2(A) NORMAL mg/dL [facility] Urine Nitrite NEGATIVE NEGATIVE [facility] Ur Leukocyte Esterase 75(A) NEGATIVE Blu/ul [facility] Ur Microscopic Review Indicated or Ordered [facility] Urine RBC 67604 0 - 2 /HPF [facility] Urine WBC 45 0 - 2 /HPF [facility] 07/19/2018 10:0 5 PM CDT 07/19/2018 10:54 PM CDT Narrative [facility] - 07/19/2018 11:[address] Wilber bustamante Resulting Agency Comment IN us Phil Chaves MD LAB URINE ORDERABLES Edited Result - Final Performing Organization Address City/[facility]/ZIP Co de Phone Number [address] [phone] * ECG 12 lead (07/19/2018 8:20 PM CDT) Ventricular Rate EKG/Min 98 BPM [facility] Atrial Rate 98 BPM [facility] NE-Interval (MSEC) 184 ms [facility] QRS-Interval (MSEC) 84 ms [facility] QT-Interval (MSEC) 356 ms [facility] QTc 454 ms [facility] P [place] 43 degrees [facility] R [place] -8 degrees [facility] T [place] 17 degrees [facility] Diagnosis Normal sinus rhythm Normal ECG When compared with ECG of 19-JUL-2018 13:15, No significant change was found [facility] 07/19/2018 8:20 PM CDT 07/20/2018 11:58 AM CDT Narrative Resulting Agency Comment INPAT us Phil Chaves MD ECG ORDERABLES Final Result Performing Organization Address [facility] Co de Phone Number [address] * RBC TRANSFUSION ORDER (07/19/2018 8:04 PM CDT) RBC TRANSFUSION ORDER [id number] OP RBCORDER TRANSFUSED 07/21/18 0912 [facility] 07/19/2018 8:04 PM CDT 07/21/2018 6:47 AM CDT Narrative Resulting Agency Comment IN us Phong Delaney MD LAB BLOOD ORDERABLES Final Re sult Performing Organization Address City/[facility]/ZIP Co de Phone Number [address] [phone] * Antibody screen (07/19/2018 8:04 PM CDT) Antibody Screen NEGATIVE [facility] 07/19/2018 8:04 PM CDT 07/19/2018 8:08 PM CDT Narrative Resulting Agency Comment IN Phong Delaney MD LAB BLOOD BANK TEST ORDERABLE S Final Result [place] [id number] [phone] * Type and screen (07/19/2018 8:04 PM CDT) Pathologist [facility] [place] Blood Type O POSITIVE [facility] 07/19/2018 8:04 PM CDT 07/19/2018 8:08 PM CDT Narrative [facility] - 07/19/2018 8:53 PM CDT N Resulting Agency Comment IN Phong Delaney MD LAB BLOOD BANK TEST ORDERABLE S Final Result [address] [phone] * (ABNORMAL) CBC with auto differential (07/19/2018 8:04 PM CDT) Pathologist [facility] [place] WBC 7.7 3.8 - 9.9 X10 3/ul [facility] Comment: Results reviewed RBC 4.22 3.90 - 5.20 x10 6/ul [facility] Hemoglobin 8.0(L) 11.9 - 15.5 g/dL [facility] Hct 29.4(L) 35.6 - 45.5 % [facility] MCV 69.7(L) 81.3 - 96.4 fl [facility] MCH 19.0(L) 27.1 - 33.3 pg [facility] MCHC 27.2(L) 32.3 - 35.7 g/dl [facility] RDW 19.9(H) 11.1 - 14.9 % [facility] Plt Count 228 150 - 400 x10 3/ul [facility] MPV 9.4 9.1 - 12.3 fl [facility] Neut % 70.9 % [facility] Immature Gran % 0.3 % [facility] Lymph % 16.9 % [facility] [place] % 7.4 % [facility] Eos % 4.0 % [facility] AUTO BAS[place] % 0.5 % [facility] [facility] NEUTROPHIL ABS # 5.4 1.7 - 6.5 x10 3/ul [facility] Immature Gran # 0.0 0.0 - 0.1 x10 3/ul [facility] Absolute Lymphs (auto) 1.3 0.8 - 3.3 x10 3/ul [facility] Absolute Monos (auto) 0.6 0.2 - 0.8 x10 3/ul [facility] Absolute Eos (auto) 0.3 0.0 - 0.5 x10 3/ul [facility] BASOPHIL ABS # 0.0 0.0 - 0.1 x10 3/ul [facility] Nucleat RBC Rel Count 0.0 #/100WBC [facility] NRBC abs 0.00 0.00 - 0.01 x10 3/ul [facility] Platelet Evaluation AGREE AGREE [facility] Comment: Slide review of platelets correlates with instrument count. Hypochromasia 2+ [facility] Microcytosis 1+ [facility] Poikilocytosis 2+ [facility] Target Cells 1+ [facility] Absolute Neutrophils 5,400 200 - 8,000 /ul [facility] 07/19/2018 8:04 PM CDT 07/19/2018 8:08 PM CDT Narrative Resulting Agency Comment IN Phong Delaney MD LAB BLOOD ORDERABLES Final Re sult Performing Organization Address City/[facility]/ZIP Co de Phone Number [address] [phone] * Ethanol (07/19/2018 6:43 PM CDT) Pathologist [facility] [place] Ethyl Alcohol 10 mg/dL [facility] Comment: % = mg/dL x .001 07/19/2018 6:43 PM CDT 07/19/2018 6:49 PM CDT Narrative [facility] - 07/19/2018 8:35 PM CDT Result may be decreased-specimen uncapped for extended time. Resulting Agency Comment IN Phong Delaney MD LAB BLOOD ORDERABLES Final Re sult Performing Organization Address [facility] Co de Phone Number [address] [phone] * hCG, blood, quantitative (07/19/2018 6:43 PM CDT) Pathologist [facility] [place] Beta HCG, Quant <0.1 0.0 - 4.0 mIU/mL [facility] Comment: Female Reference Intervals(): ??Negative ? < [...] PM CDT 07/19/2018 6:49 PM CDT Narrative [facility] - 07/19/2018 8:35 PM CDT Result may be decreased-specimen uncapped for extended time. Resulting Agency Comment IN us Phong Delaney MD LAB BLOOD ORDERABLES Final Re sult [facility] [address] [place] [address], [facility] [phone] * Basic metabolic panel (07/19/2018 6:43 PM CDT) Sodium 139 135 - 145 mmol/L [facility] Potassium 3.8 3.3 - 5.1 mmol/L [facility] Chloride 105 96 - 108 mmol/L [facility] Carbon Dioxide 24 22 - 32 mmol/L [facility] Anion Gap 10 7 - 16 [facility] Glucose 94 70 - 100 mg/dL [facility] BUN 13 8 - 25 mg/dL [facility] Creatinine 0.7 0.5 - 1.1 mg/dL [facility] Comment: NOTE: Estimated GFR (Cockroft-Gault) will NOT be calculated unless patient Height and Weight were entered. Also, Kidney Disease Stage (GFR) and Estimated GFR (Cockroft-Gault) will NOT be calculated if Creatinine result is <0.2. Kidney Disease Stage >90 mL/MIN [facility] Comment: NOTE; ??The GFR is an [...] on dialysis Est GFR (Cockcroft-G) 141 ml/MIN [facility] Comment: Estimated GFR(Cockroft-Gault)is used to calculate patient medication dosage Calcium 9.7 8.6 - 10.3 mg/dL [facility] 07/19/2018 6:43 PM CDT 07/19/2018 6:49 PM CDT Narrative [facility] - 07/19/2018 8:35 PM CDT Result may be decreased-specimen uncapped for extended time. Resulting Agency Comment IN Phong Delaney MD LAB BLOOD ORDERABLES Final Re sult Performing Organization Address [facility]/ZIP Co de Phone Number [address] [phone] * TSH reflex to free T4 (07/19/2018 6:43 PM CDT) TSH W REFLEX TO FT4 2.82 0.27 - 4.20 uIU/mL [facility] TSH W REFLEX TO FT4 2.82 0.27 - 4.20 uIU/mL [facility] 07/19/2018 6:43 PM CDT 07/19/2018 6:49 PM CDT Narrative [facility] - 07/19/2018 8:35 PM CDT Result may be decreased-specimen uncapped for extended time. Resulting Agency Comment IN Phong Delaney MD LAB BLOOD ORDERABLES Final Re sult Performing Organization Address [facility]/ZIP Co de Phone Number [address] [phone] * TNI with LIPID PANEL (07/19/2018 6:43 PM CDT) Troponin I <0.300 0.000 - 0.300 ng/mL [facility] Comment: Reference using CLOVER Chemiluminescence ? Negative: Repeat in 4-6 hours as indicated. Triglycerides 100 0 - 149 mg/dL [facility] Comment: National Lipid Association/NCEP Guidelines: ?? Normal ?< 150 mg/dL ?? Borderline high ?? 150-199 mg/dL ?? High ?200-499 mg/dL ?? Very High ? >=500 mg/dL Cholesterol 155 0 - 199 mg/dL [facility] Comment: National Lipid Association/NCEP Guidelines: Desirable ? < 200 mg/dL Borderline high: ??200-239 mg/dL High Risk: ?>=240 mg/dL HDL Cholesterol 75 mg/dL [facility] Comment: Reference Ranges: ? Males: >=40 mg/dL ? Females: >=50 mg/dL LDL Cholesterol, Calc 60 0 - 129 mg/dL [facility] Comment: National Lipid Association/NCEP Guidelines: ??Optimal ? < 100 mg/dL ??Near Optimal ?100-129 mg/dL ??Borderline high 130-159 mg/dL ??High ?>=160 mg/dL Cholesterol/HDL Ratio 2.1 [facility] Comment: Optimal ??< 3.5:1 High ? > 5:1 Troponin I <0.300 0.000 - 0.300 ng/mL [facility] Comment: Reference using CLOVER Chemiluminescence ? Negative: Repeat in 4-6 hours as indicated. Triglycerides 100 0 - 149 mg/dL [facility] Comment: National Lipid Association/NCEP Guidelines: ?? Normal ?< 150 mg/dL ?? Borderline high ?? 150-199 mg/dL ?? High ?200-499 mg/dL ?? Very High ? >=500 mg/dL Cholesterol 155 0 - 199 mg/dL [facility] Comment: National Lipid Association/NCEP Guidelines: Desirable ? < 200 mg/dL Borderline high: ??200-239 mg/dL High Risk: ?>=240 mg/dL HDL Cholesterol 75 mg/dL [facility] Comment: Reference Ranges: ? Males: >=40 mg/dL ? Females: >=50 mg/dL LDL Cholesterol, Calc 60 0 - 129 mg/dL [facility] Comment: National Lipid Association/NCEP Guidelines: ??Optimal ? < 100 mg/dL ??Near Optimal ?100-129 mg/dL ??Borderline high 130-159 mg/dL ??High ?>=160 mg/dL Cholesterol/HDL Ratio 2.1 [facility] Comment: Optimal ??< 3.5:1 High ? > 5:1 07/19/2018 6:43 PM CDT 07/19/2018 6:49 PM CDT Narrative [facility] - 07/19/2018 8:35 PM CDT Result may be decreased-specimen uncapped for extended time. Resulting Agency Comment IN us Phong Delaney MD LAB BLOOD ORDERABLES Final Re sult [facility] [address] [place] [address], [facility] [phone] * B-type natriuretic peptide (07/19/2018 6:43 PM CDT) B-Natriuretic Peptide 45 0 - 100 pg/mL [facility] Comment: B Natriutetic Peptide METHOD: ??[employer] [...] MD LAB BLOOD ORDERABLES Final R esult [facility] [place] [address], [facility] [phone] * CTA Chest W IV Contrast - PE (07/19/2018 12:00 AM CDT) Anatomical Region Laterality Modality Body N/A Computed Tomogra phy 07/20/2018 1:13 AM CDT Narrative 07/20/2018 1:23 AM CDT Patient Name: TIARRA HAN ?Ordering Dr: Phong Delaney MD ?? D.O.B: 1970 ? Exam Date: 07/19/18 ?? 0000 ?? Age: 47 ?Sex: Female ? MR#: [id number] ?? Loc: ??C138-01 ? RADIOLOGY REPORT ?? Order #[id number] ?? CT Scan ? CTA Chest W [...] 1:23 AM ?? T: ? Report ID: [id number] ?? Reading Location: ??[id number] ? REPORT ELECTRONICALLY SIGNED IN OTHER VENDOR SYSTEM ?? Resulting Agency Comment I Procedure Note Moshe Stuart MD - 07/20/2018 Patient Name: TIARRA HAN Dr: Phong Delaney MD D.O.B: 1970 Exam Date: 07/19/18 0000 Age: 47 Sex: Female MR#: [id number] Loc: C138-01 RADIOLOGY REPORT Order #[id number] CT Scan CTA Chest W IV Contrast [...] Moshe Stuart M.D., MA T: Report ID: [id number] Reading Location: [id number] REPORT ELECTRONICALLY SIGNED IN OTHER VENDOR SYSTEM Phong Delaney MD IMG CT PROCEDURES Final Resul t documented in this encounter Visit Diagnoses Not on filedocumented in this encounter Care Teams Dye Range Feeder Relationship Specialty Start Date End Date Unknown, Notinfile PCP - General 02/18/18 10/24/18 Unknown, Notinfile 02/18/18 03/27/20 documented as of this encounter
--- OUTSIDE RECORDS SUMMARY | 2024-03-24 19:46 | XMS_ITS | Encounter Summary ---
Author Organization [facility] Healthcare Address [address] [place] [id number] Care Team Providers Care Check Writing Machine Operator Name Role Phone Unknown, Notinfile Primary Care Provider Unavail able Unknown, Notinfile Unavailable Unavailable Encounter Details Date Type Department Care Team (Latest Contact Info) Description 07/19/2018 1:08 PM CDT - 07/19/2018 5:21 PM CDT Hospital Encounter [facility] Emergency Department [address] [place] [id number] Luca Crain MD [address] [place] [address] [place] [address] Discharge Disposition: Discharge to a short term [...] Troponin I (07/19/2018 4:22 PM CDT) Pathologist [facility] Troponin I <0.300 0.000 - 0.300 ng/mL [facility] Comment: Reference using CLOVER Chemiluminescence ? Negative: Repeat in 4-6 hours as indicated. 07/19/2018 4:22 PM CDT 07/19/2018 4:27 PM CDT Narrative Resulting Agency Comment ER us Jarad Garner NP LAB BLOOD ORDERABLES Nika perez Result [address] [phone] * TNI with LIPID PANEL (07/19/2018 2:26 PM CDT) Pathologist [facility] Troponin I <0.300 0.000 - 0.300 ng/mL [facility] Comment: Reference using CLOVER Chemiluminescence ? Negative: Repeat in 4-6 hours as indicated. Triglycerides 89 0 - 149 mg/dL [facility] Comment: National Lipid Association/NCEP Guidelines: ?? Normal ?< 150 mg/dL ?? Borderline high ?? 150-199 mg/dL ?? High ?200-499 mg/dL ?? Very High ? >=500 mg/dL Cholesterol 140 0 - 199 mg/dL [facility] Comment: National Lipid Association/NCEP Guidelines: Desirable ? < 200 mg/dL Borderline high: ??200-239 mg/dL High Risk: ?>=240 mg/dL HDL Cholesterol 70 mg/dL [facility] Comment: Reference Ranges: ? Males: >=40 mg/dL ? Females: >=50 mg/dL LDL Cholesterol, Calc 52 0 - 129 mg/dL [facility] Comment: National Lipid Association/NCEP Guidelines: ??Optimal ? < 100 mg/dL ??Near Optimal ?100-129 mg/dL ??Borderline high 130-159 mg/dL ??High ?>=160 mg/dL Cholesterol/HDL Ratio 2.0 [facility] Comment: Optimal ??< 3.5:1 High ? > 5:1 07/19/2018 2:26 PM CDT 07/19/2018 2:32 PM CDT Narrative Resulting Agency Comment ER us Jarad Garner REGISTERED PHLEBOTOMIST PART TIME LAB BLOOD ORDERABLES Nika perez Result [address] [phone] * (ABNORMAL) Comprehensive metabolic panel (07/19/2018 2:26 PM CDT) Sodium 140 135 - 145 mmol/L [facility] Potassium 4.1 3.3 - 5.1 mmol/L [facility] Chloride 104 96 - 108 mmol/L [facility] Carbon Dioxide 20(L) 22 - 32 mmol/L [facility] Anion Gap 16 7 - 16 [facility] Glucose 85 70 - 100 mg/dL [facility] BUN 12 8 - 25 mg/dL [facility] Creatinine 0.6 0.5 - 1.1 mg/dL [facility] Comment: NOTE: Estimated GFR (Cockroft-Gault) will NOT be calculated unless patient Height and Weight were entered. Also, Kidney Disease Stage (GFR) and Estimated GFR (Cockroft-Gault) will NOT be calculated if Creatinine result is <0.2. Kidney Disease Stage >90 mL/MIN [facility] Comment: NOTE; ??The GFR is an [...] on dialysis Est GFR (Cockcroft-G) 171 ml/MIN [facility] Comment: Estimated GFR(Cockroft-Gault)is used to calculate patient medication dosage Calcium 9.1 8.6 - 10.3 mg/dL [facility] Total Protein 7.7 6.4 - 8.3 g/dL [facility] Albumin 3.7 3.5 - 5.0 g/dL [facility] Globulin 4.0(H) 2.3 - 3.5 gm/dL [facility] Albumin/Globulin Ratio 0.9(L) 1.1 - 1.8 [facility] Total Bilirubin 0.3 0.0 - 1.2 mg/dL [facility] AST 23 0 - 32 U/L [facility] ALT 11 0 - 33 U/L [facility] Alkaline Phosphatase 87 35 - 104 U/L [facility] 07/19/2018 2:26 PM CDT 07/19/2018 2:32 PM CDT Narrative Resulting Agency Comment ER us Jarad Garner NP LAB BLOOD ORDERABLES Nika perez Result [facility] [address] [place] [address], [facility] [phone] * (ABNORMAL) CBC with auto differential (07/19/2018 2:26 PM CDT) WBC 5.9 3.8 - 9.9 X10 3/ul [facility] RBC 4.01 3.90 - 5.20 x10 6/ul [facility] Hemoglobin 7.6(L) 11.9 - 15.5 g/dL [facility] Hct 27.3(L) 35.6 - 45.5 % [facility] MCV 68.1(L) 81.3 - 96.4 fl [facility] MCH 19.0(L) 27.1 - 33.3 pg [facility] MCHC 27.8(L) 32.3 - 35.7 g/dl [facility] RDW 19.7(H) 11.1 - 14.9 % [facility] Plt Count 224 150 - 400 x10 3/ul [facility] MPV 9.0(L) 9.1 - 12.3 fl [facility] Neut % 64.1 % [facility] Immature Gran % 0.2 % [facility] Lymph % 23.4 % [facility] [place] % 8.1 % [facility] Eos % 3.5 % [facility] AUTO BASO % 0.7 % [facility] NEUTROPHIL ABS # 3.8 1.7 - 6.5 x10 3/ul [facility] Immature Gran # 0.0 0.0 - 0.1 x10 3/ul [facility] Absolute Lymphs (auto) 1.4 0.8 - 3.3 x10 3/ul [facility] Absolute Monos (auto) 0.5 0.2 - 0.8 x10 3/ul [facility] Absolute Eos (auto) 0.2 0.0 - 0.5 x10 3/ul [facility] BASOPHIL ABS # 0.0 0.0 - 0.1 x10 3/ul [facility] Nucleat RBC Rel Count 0.0 #/100WBC [facility] NRBC abs 0.00 0.00 - 0.01 x10 3/ul [facility] Absolute Neutrophils 3,800 200 - 8,000 /ul [facility] 07/19/2018 2:26 PM CDT 07/19/2018 2:32 PM CDT Narrative Resulting Agency Comment ER Jarad Garner REGISTERED PHLEBOTOMIST PART TIME LAB BLOOD ORDERABLES Nika l Result Performing Organization Address [facility] Co de Phone Number [address] [phone] * aPTT (07/19/2018 2:26 PM CDT) APTT 27 26 - 33 SECONDS [facility] 07/19/2018 2:26 PM CDT 07/19/2018 2:32 PM CDT Narrative Resulting Agency Comment ER Jarad Garner REGISTERED PHLEBOTOMIST PART TIME LAB BLOOD ORDERABLES Nika l Result Performing Organization Address [facility] de Phone Number [address] [phone] * Protime-INR (07/19/2018 2:26 PM CDT) PT 13.7 11.8 - 14.5 SECONDS [facility] INR 1.04 [facility] Comment: Recommended Therapeutic range for Oral Anticoagulant Therapy No anti-coagulation therapy ? Normal Range: ?0.8-1.4 Anti-coagulation therapy ? Low intensity therapy ?2.0-3.0 ? High intensity therapy ?? 2.5-3.5 Critical Value ? Greater than or equal to 5.0 Patients should be monitored for serious bleeding. 07/19/2018 2:26 PM CDT 07/19/2018 2:32 PM CDT Narrative Resulting Agency Comment ER Jarad Garner REGISTERED PHLEBOTOMIST PART TIME LAB BLOOD ORDERABLES Nika l Result Performing Organization Address [facility] [place] [address], [facility] [phone] * ECG 12 lead (07/19/2018 1:15 PM CDT) Ventricular Rate EKG/Min 81 BPM [facility] Atrial Rate 81 BPM [facility] OK-Interval (MSEC) 194 ms [facility] QRS-Interval (MSEC) 86 ms [facility] QT-Interval (MSEC) 384 ms [facility] QTc 446 ms [facility] P [place] 24 degrees [facility] R [place] -15 degrees [facility] T [place] 0 degrees [facility] Diagnosis Normal sinus rhythm Moderate voltage criteria for LVH, may be normal variant Borderline ECG When compared with ECG of 16-APR-2018 04:28, No significant change was found [facility] 07/19/2018 1:15 PM CDT 07/19/2018 7:07 PM CDT Narrative Resulting Agency Comment PREADT us Jarad Garner REGISTERED PHLEBOTOMIST PART TIME ECG ORDERABLES Final Res ult [facility] * US Vein Duplex Lower Extremity Right Limited (07/19/2018 12:00 AM CDT) Anatomical Region Laterality Modality Vascular Right Ultrasound 07/21/2018 7:39 AM CDT Narrative 07/21/2018 9:22 AM CDT ? Patient Name: TIARRA HAN ? MR#: [id number] ?? [id number] ? Status: DEP ER ?D.O.B: 1970 Age: ??47 ?Sex: Female ? ADM/SER Dt: 07/19/18 ?Disch Dt: 07/19/18 ?LOC: Y.ER ? Ordering Phy: Paras,Luca KASPER ? Order #[id number] ? Venous Dop/Duplex Right Leg ?? Zeferino [...] right calf veins. ? NTS ? Job: [id number] ? Dictated By: Zeferino Mensah MD ?? Dictated For: Zeferino Mensah MD ? <Electronically signed by Zeferino Mensah MD> ? 07/21/18 0833 ?? Resulting Agency Comment E Procedure Note Zeferino Mensah MD - 07/21/2018 Patient Name: TIARRA HAN #: [id number] Status: KRYSTAL ALMANZAR D.O.B: 1970 Age: 47Sex: Female ADM/SER Dt: 07/19/18 Disch Dt: 07/19/18LOC: BIRD Ordering Phy: Luca Crain MD Order #[id number] Venous Dop/Duplex Right Leg Zeferino Mensah MD [...] visualize the right calf veins. NTS Job: [id number] Dictated By: Zeferino Mensah MD Dictated For: [...] ?? Age: 47 ?Sex: Female ? MR#: [id number] ?? Loc: ? RADIOLOGY REPORT ?? Order #[id number] ?? Radiology ? Chest 1 View Portable [...] T: ??07/19/2018 2:14 PM ? Report ID: [id number] ?? Reading Location: ??[id number] ? REPORT ELECTRONICALLY SIGNED IN OTHER VENDOR SYSTEM ?? Resulting Agency Comment P Procedure Note Joseph Hemphill MD - 07/19/2018 Patient Name: TIARRA HAN Dr: Jarad Garner D.O.B: 1970 Exam Date: 07/19/18 0000 Age: 47 Sex: Female MR#: [id number] Loc: RADIOLOGY REPORT Order #[id number] Radiology Chest 1 View Portable Signed EXAM [...] by Joseph Hemphill M.D. AB: Report ID: [id number] Reading Location: [place] [address] REPORT ELECTRONICALLY SIGNED IN OTHER VENDOR SYSTEM Jarad Garner REGISTERED PHLEBOTOMIST PART TIME IMG XR PROCEDURES Final R esult documented in this encounter Visit Diagnoses Not on filedocumented in this encounter Care Teams Check Writing Machine Operator Relationship Specialty Start Date End Date Unknown, Notinfile PCP - General 02/18/18 10/24/18 Unknown, Notinfile 02/18/18 03/27/20 documented as of this encounter
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
--- OUTSIDE RECORDS SUMMARY | 2024-03-24 19:46 | XMS_ITS | Encounter Summary ---
Author Organization [facility] Healthcare Address [address] [place] [address] Care Team Providers Care Gas Roller Operator Name Role Phone Unknown, Notinfile Primary Care Provider Unavail able Unknown, Notinfile Unavailable Unavailable Encounter Details Date Type Department Care Team (Latest Contact Info) Description 03/26/2018 8:14 PM SURGICAL DRESSING MAKER - 03/26/2018 11:05 PM SURGICAL DRESSING MAKER Hospital Encounter [facility] Radiology [address] [place] [address] Cynthia Ryan MD [address] [place] [address] Discharge Disposition: Discharge to home or self [...] LATERAL 2 VIEWS ED 03/26/2018 8:18 PM SURGICAL DRESSING MAKER documented in this encounter Results * XR Chest Pa Lateral 2 Vw (03/26/2018 8:18 PM SURGICAL DRESSING MAKER) Anatomical Region Laterality Modality Body, Chest N/A Computed Radiogr aphy 03/26/2018 8:33 PM SURGICAL DRESSING MAKER Impressions 03/27/2018 11:17 AM SURGICAL DRESSING MAKER Two-view chest examination is submitted without comparison. ??The lung volumes are small. ??Increased interstitial opacities are favored to represent expiratory radiograph. ??There is no focal pneumonic consolidation. ??There is no pulmonary edema or pleural effusion. ??There is no pneumothorax. ??Cardiac mediastinal silhouette is within normal limits. Dictated by: tSeve Hoskins M.D. Electronically signed by: Seema Castillo M.D. Narrative 03/27/2018 11:17 AM SURGICAL DRESSING MAKER EXAMINATION: 2 view chest radiograph History: Generalized [...] on filedocumented in this encounter Care Teams Gas Roller Operator Relationship Specialty Start Date End Date Unknown, Notinfile PCP - General 02/18/18 10/24/18 Unknown, Notinfile 02/18/18 03/27/20 documented as of this encounter
--- OUTSIDE RECORDS SUMMARY | 2024-03-24 19:46 | XMS_ITS | Encounter Summary ---
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; Other mcfp (current) drug therapy Social History Tobacco Use [...] Comments Blood Pressure 138/82 03/14/2018 5:41 AM JAIL MANAGER Pulse 94 03/14/2018 5:41 AM JAIL MANAGER Temperature 36.9 ??C (98.4 ??F) 03/14/2018 5:41 AM CS T Respiratory Rate - - Oxygen Saturation 97% 03/14/2018 5:41 AM JAIL MANAGER Inhaled Oxygen Concentration - - Weight 164 kg (361 lb 8.9 oz) 03/14/2018 5:41 AM JAIL MANAGER Height 170.2 cm (5' 7 ) 03/14/2018 5:41 AM JAIL MANAGER Body Mass Index 56.63 03/14/2018 5:41 AM JAIL MANAGER documented in this encounter Medications at [...] Comments TROPONIN I Routine 03/14/2018 9:24 AM JAIL MANAGER PROTIME-INR Routine 03/14/2018 7:02 AM JAIL MANAGER TNI WITH LIPID PANEL Routine 03/14/2018 6:11 AM JAIL MANAGER CBC WITH AUTO DIFFERENTIAL Routine 03/14/2018 6:11 AM JAIL MANAGER ETHANOL Routine 03/14/2018 6:11 AM JAIL MANAGER COMPREHENSIVE METABOLIC PANEL Routine 03/14/2018 6:11 AM JAIL MANAGER CTA CHEST W IV CONTRAST - PE Routine 03/14/2018 12:00 AM JAIL MANAGER XR CHEST 1 VIEW Routine 03/14/2018 12:00 AM JAIL MANAGER documented in this encounter Results * Troponin I (03/14/2018 9:24 AM JAIL MANAGER) Troponin I < 0.300 0.000 - 0.300 ng/mL Comment: Reference using [place] Chemiluminescence ? Negative: Repeat in 4-6 hours as indicated. 03/14/2018 9:24 AM JAIL MANAGER 03/14/2018 9:27 AM JAIL MANAGER us Carson Bledsoe II, MD LAB BLOOD ORDERABLES Nika l Result [facility] HISTORICAL RESULTS * Protime-INR (03/14/2018 7:02 AM JAIL MANAGER) PT 13.4 11.8 - 14.5 SECONDS INR 1.02 Comment: Recommended Therapeutic range for Oral Anticoagulant Therapy No anti-coagulation therapy ? Normal Range: ?0.8-1.4 Anti-coagulation therapy ? Low intensity therapy ?2.0-3.0 ? High intensity therapy ?? 2.5-3.5 Critical Value ? Greater than or equal to 5.0 Patients should be monitored for serious bleeding. ?? 03/14/2018 7:02 AM JAIL MANAGER 03/14/2018 7:04 AM JAIL MANAGER Carson Bledsoe II, MD LAB BLOOD ORDERABLES Nika l Result Performing Organization Address [facility] [address] [facility] de Phone Number [facility] HISTORICAL RESULTS * Ethanol (03/14/2018 6:11 AM JAIL MANAGER) Pathologist [facility] Ethyl Alcohol 77 mg/dL Comment:% = mg/dL x .001 03/14/2018 6:11 AM JAIL MANAGER 03/14/2018 6:13 AM JAIL MANAGER Bandar Delaney MD LAB BLOOD ORDERABLES Final Resul t Performing Organization Address [facility] [address]/[facility] de Phone Number [facility] HISTORICAL RESULTS * TNI with LIPID PANEL (03/14/2018 6:11 AM JAIL MANAGER) Pathologist [facility] Troponin I < 0.300 0.000 - 0.300 [...] HDL Cholesterol 68 mg/dL 8 6:48 AM [facility] [employer] HISTORICAL RESULTS Comment: Reference Ranges: ? Males: >=40 mg/dL ? Females: >=50 mg/dL LDL Cholesterol, Calc 34 0 - 129 mg/dL 03/14/2018 6:48 AM [facility] [email or web address] [facility] [employer] (P) HISTORICAL RESULTS Comment: National Lipid Association/NCEP Guidelines: ??Optimal ? < 100 mg/dL ??Near Optimal ?100-129 mg/dL ??Borderline high 130-159 mg/dL ??High ?>=160 mg/dL Cholesterol/HDL Ratio 1.9 03/14/2018 6:48 AM [facility] [employer] HISTORICAL RESULTS Comment: Optimal ??< 3.5:1 High ? > 5:1 03/14/2018 6:11 AM JAIL MANAGER 03/14/2018 6:13 AM JAIL MANAGER us Bandar Delaney MD LAB BLOOD ORDERABLES Final Resul t [facility] [employer] HISTORICAL RESULTS * Comprehensive metabolic panel (03/14/2018 6:11 AM JAIL MANAGER) Sodium 141 135 - 145 mmol/L 03/14/2018 6:48 AM [facility] [employer] HISTORICAL RESULTS Potassium 4.4 3.3 - 5.1 mmol/L 03/14/2018 6:48 AM [facility] [employer] HISTORICAL RESULTS Chloride 106 96 - 108 mmol/L 03/14/2018 6:48 AM [facility] [employer] HISTORICAL RESULTS Carbon Dioxide 24 22 - 32 mmol/L 03/14/2018 6:48 AM [facility] [employer] HISTORICAL RESULTS Anion Gap 11 7 - 16 03/14/2018 6:48 AM [facility] [employer] HISTORICAL RESULTS Glucose 81 70 - 100 mg/dL 03/14/2018 6:48 AM [facility] [email or web address] [facility] [employer] ([employer]) HISTORICAL RESULTS BUN 15 6 - 20 mg/dL 03/14/2018 6:48 AM [employer] HISTORICAL RESULTS Creatinine 0.7 0.5 - 1.1 mg/dL 03/14/2018 6:48 AM [employer] HISTORICAL RESULTS Comment: NOTE: Estimated GFR (Cockroft-Gault) will NOT be calculated unless patient Height and Weight were entered. Also, Kidney Disease Stage (GFR) and Estimated GFR (Cockroft-Gault) will NOT be calculated if Creatinine result is <0.2. Kidney Disease Stage > 90 mL/MIN 03/14/2018 6:48 AM [employer] HISTORICAL RESULTS Comment: NOTE; ??The GFR is [...] GFR (Cockcroft-G) 159 ml/MIN 03/14/2018 6:48 AM [employer] HISTORICAL RESULTS Comment: Estimated GFR(Cockroft-Gault)is used to calculate patient medication dosage Calcium 8.6 8.6 - 10.0 mg/dL 03/14/2018 6:48 AM [employer] HISTORICAL RESULTS Total Protein 7.2 6.4 - 8.3 g/dL 03/14/2018 6:48 AM [employer] HISTORICAL RESULTS Albumin 3.7 3.5 - 5.2 g/dL 03/14/2018 6:48 AM [employer] HISTORICAL RESULTS Globulin 3.5 2.3 - 3.5 gm/dL Albumin/Globulin Ratio 1.1 1.1 - 1.8 Total Bilirubin 0.3 0.0 - 1.2 mg/dL AST 21 0 - 32 U/L ALT 12 0 - 33 U/L Alkaline Phosphatase 95 35 - 104 U/L 03/14/2018 6:11 AM JAIL MANAGER 03/14/2018 6:13 AM JAIL MANAGER us Bandar Delaney MD LAB BLOOD ORDERABLES Final Resul t [facility] HISTORICAL RESULTS * (ABNORMAL) CBC with auto differential (03/14/2018 6:11 AM JAIL MANAGER) WBC 8.3 3.8 - 9.9 X10 3/ul RBC 3.83(L) 3.90 - 5.20 x10 6/ul Hemoglobin 8.1(L) 11.9 - 15.5 g/dL Hct 27.9(L) 35.6 - 45.5 % MCV 72.8(L) 81.3 - 96.4 fl MCH 21.1(L) 27.1 - 33.3 pg MCHC 29.0(L) 32.3 - 35.7 g/dl RDW 18.9(H) 11.1 - 14.9 % 03/14/2018 6:22 AM JAIL MANAGER [facility] [employer] HISTORICAL RESULTS Plt Count 260 150 - 400 x10 3/ul 03/14/2018 6:22 AM [facility] ([facility]) HISTORICAL RESULTS MPV 9.4 9.1 - 12.3 fl 03/14/2018 6:22 AM JAIL MANAGER [facility] [employer] HISTORICAL RESULTS Neut % 71.9 % 03/14/2018 6:22 AM [facility] [email or web address] [facility]) HISTORICAL RESULTS Immature Gran % 0.1 % 8 6:22 AM JAIL MANAGER [facility] [employer] HISTORICAL RESULTS Lymph % 18.2 % 03/14/2018 6:22 AM JAIL MANAGER [facility] [email or web address] [facility] [employer] ([employer]) HISTORICAL RESULTS [place] % 7.1 % 03/14/2018 6:22 AM [facility] [email or web address] [facility] [employer]) HISTORICAL RESULTS Eos % 2.3 % 03/14/2018 6:22 AM JAIL MANAGER [facility] [email or web address] [facility] ([employer]) HISTORICAL RESULTS Baso % 0.4 % 03/14/2018 6:22 AM JAIL MANAGER [facility] [email or web address] [facility] [employer] ([employer]) HISTORICAL RESULTS Absolute Neuts (auto) 6.0 1.7 - 6.5 x10 3/ul 03/14/2018 6:22 AM [employer] [facility] [email or web address] [facility] [employer] ([employer]) HISTORICAL RESULTS Immature Gran # 0.0 0.0 - 0.1 x10 3/ul 03/14/2018 6:22 AM [facility] [employer] HISTORICAL RESULTS Absolute Lymphs (auto) 1.5 0.8 - 3.3 x10 3/ul 03/14/2018 6:22 AM JAIL MANAGER [facility] [email or web address] [facility] [employer] ([employer]) HISTORICAL RESULTS Absolute Monos (auto) 0.6 0.2 - 0.8 x10 3/ul 03/14/2018 6:22 AM [employer] [facility] [email or web address] [facility] ([employer]) HISTORICAL RESULTS Absolute Eos (auto) 0.2 0.0 - 0.5 x10 3/ul 03/14/2018 6:22 AM [employer] [facility] [email or web address] [facility] ([employer]) HISTORICAL RESULTS Absolute Basos (auto) 0.0 0.0 - 0.1 x10 3/ul 03/14/2018 6:22 AM [employer] [facility] [email or web address] [facility]) HISTORICAL RESULTS Nucleat RBC Rel Count 0.0 #/100WBC 03/14/2018 6:22 AM [employer] [facility] [email or web address] [facility] [employer] ([employer]) HISTORICAL RESULTS Absolute Nucleated RBC 0.00 0.00 - 0.01 x10 3/ul Absolute Neutrophils 6000 200 - 8000 /ul 03/14/2018 6:11 AM JAIL MANAGER 03/14/2018 6:13 AM JAIL MANAGER us Bandar Delaney MD LAB BLOOD ORDERABLES Final Resul t [facility] HISTORICAL RESULTS * CTA Chest W IV Contrast - PE (03/14/2018 12:00 AM JAIL MANAGER) Anatomical Region Laterality Modality Body N/A Computed Tomogra phy 03/14/2018 Impressions 03/14/2018 7:47 AM JAIL MANAGER ?? 1.No evidence of pulmonary embolism or [...] D: ??03/14/2018 7:44 AM T: Report ID: [id number] Reading Location: ??[id number] [EOD] Narrative 03/14/2018 7:47 AM JAIL MANAGER EXAM DESCRIPTION: ??CTA Chest W IV Contrast [...] There is no pleural effusion or pneumothorax. MEDIASTINUM/CHARANIJT: There is no mediastinal or hilar lymphadenopathy. [...] Joseph Hemphill M.D. AB T: Report ID: [id number] Reading Location: [place] [address] [EOD] Carson Bledsoe II, MD IMG CT PROCEDURES Final R esult * XR Chest 1 View (03/14/2018 12:00 AM JAIL MANAGER) Anatomical Region Laterality Modality Body, Chest N/A Radiographic Alexsandra ging 03/14/2018 Impressions 03/14/2018 6:11 AM JAIL MANAGER ??Findings concerning for developing infiltrate at the right lower lung medially. ??Follow-up would be helpful. THIS IS AN ELECTRONICALLY VERIFIED FINAL REPORT 03/14/2018 6:07 AM - Electronically signed by Kimmy BLAKE D: ??03/14/2018 6:07 AM T: Report ID: [id number] Reading Location: ??[id number] [EOD] Narrative 03/14/2018 6:11 AM JAIL MANAGER EXAM DESCRIPTION: ??Chest 1 View Portable REASON [...] signed by Kimmy BLAKE T: Report ID: [id number] Reading Location: [id number] [EOD] Bandar Delaney MD IMG XR PROCEDURES Final Result documented in this encounter Visit Diagnoses Diagnosis Other chest pain Essential (primary) hypertension Unspecified essential hypertension USP current use of anticoagulant Other mcfp (current) drug therapy documented in this encounter Care Teams Screw Machine Hand Relationship Specialty Start Date End Date Unknown, Notinfile PCP - General 02/18/18 10/24/18 Unknown, Notinfile 02/18/18 03/27/20 documented as of this encounter
--- OUTSIDE RECORDS SUMMARY | 2024-03-24 19:46 | XMS_ITS | Encounter Summary ---
Author Organization [facility] Healthcare Address [address] [place] [address] Care Team Providers Care Dietitian Research Name Role Phone Unknown, Notinfile Primary Care Provider Unavail able Unknown, Notinfile Unavailable Unavailable Encounter Details Date Type Department Care Team (Latest Contact Info) Description 04/10/2018 8:30 PM NURSE GYNECOLOGY - 04/11/2018 12:54 AM [facility] Hospital Encounter [facility] Jarad Pepper, SECURITY INTELLIGENCE ANALYST [address] [facility] [address] Other chest pain; Wheezing; Cough; Shortness of breath; Pain of left arm; Essential (primary) hypertension; Personal history of pulmonary embolism; 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; Family history of diabetes [...] Comments Blood Pressure 105/65 04/10/2018 8:44 PM NURSE GYNECOLOGY Pulse 84 04/10/2018 8:44 PM NURSE GYNECOLOGY Temperature 36.6 ??C (97.9 ??F) 04/10/2018 8:44 PM CS T Respiratory Rate - - Oxygen Saturation 98% 04/10/2018 8:44 PM NURSE GYNECOLOGY Inhaled Oxygen Concentration - - Weight 51.5 kg (113 lb 7 oz) 04/10/2018 8:44 PM NURSE GYNECOLOGY Height 172.7 cm (5' 8 ) 04/10/2018 8:44 PM NURSE GYNECOLOGY Body Mass Index 17.25 04/10/2018 8:44 PM NURSE GYNECOLOGY documented in this encounter Medications at Time [...] Comments TROPONIN I Routine 04/10/2018 11:50 PM NURSE GYNECOLOGY APTT Routine 04/10/2018 9:20 PM NURSE GYNECOLOGY PROTIME-INR Routine 04/10/2018 9:20 PM NURSE GYNECOLOGY TNI WITH LIPID PANEL Routine 04/10/2018 9:15 PM NURSE GYNECOLOGY CBC WITH AUTO DIFFERENTIAL Routine 04/10/2018 9:15 PM NURSE GYNECOLOGY COMPREHENSIVE METABOLIC PANEL Routine 04/10/2018 9:15 PM NURSE GYNECOLOGY XR CHEST 1 VIEW Routine 04/10/2018 12:00 AM NURSE GYNECOLOGY documented in this encounter Results * Troponin I (04/10/2018 11:50 PM NURSE GYNECOLOGY) [facility] Troponin I < 0.300 0.000 - 0.300 ng/mL 04/11/2018 12:14 AM NURSE GYNECOLOGY [facility] HISTORICAL RESULTS Comment: Reference using CLOVER Chemiluminescence ? Negative: Repeat in 4-6 hours as indicated. 04/10/2018 11:5 0 PM NURSE GYNECOLOGY 04/10/2018 11:52 PM NURSE GYNECOLOGY Jarad Garner SECURITY INTELLIGENCE ANALYST LAB BLOOD ORDERABLES Nika l Result Performing Organization Address [facility] de Phone Number [facility] HISTORICAL RESULTS * aPTT (04/10/2018 9:20 PM NURSE GYNECOLOGY) APTT 28 26 - 33 SECONDS 04/10/2018 9:33 PM NURSE GYNECOLOGY [facility] HISTORICAL RESULTS 04/10/2018 9:20 PM NURSE GYNECOLOGY 04/10/2018 9:23 PM NURSE GYNECOLOGY Jarad Garner SECURITY INTELLIGENCE ANALYST LAB BLOOD ORDERABLES Nika l Result Performing Organization Address [facility] Number [facility] HISTORICAL RESULTS * (ABNORMAL) Protime-INR (04/10/2018 9:20 PM NURSE GYNECOLOGY) Pathologist [facility] PT 15.1(H) 11.8 - 14.5 SECONDS 04/10/2018 9:32 PM NURSE GYNECOLOGY [facility] HISTORICAL RESULTS INR 1.18 04/10/2018 9:32 PM NURSE GYNECOLOGY [facility] HISTORICAL RESULTS Comment: Recommended Therapeutic range for Oral Anticoagulant Therapy No anti-coagulation therapy ? Normal Range: ?0.8-1.4 Anti-coagulation therapy ? Low intensity therapy ?2.0-3.0 ? High intensity therapy ?? 2.5-3.5 Critical Value ? Greater than or equal to 5.0 Patients should be monitored for serious bleeding. ?? 04/10/2018 9:20 PM NURSE GYNECOLOGY 04/10/2018 9:23 PM NURSE GYNECOLOGY Jarad Garner SECURITY INTELLIGENCE ANALYST LAB BLOOD ORDERABLES Nika l Result Performing Organization Address [facility] de Phone Number [facility] HISTORICAL RESULTS * TNI with LIPID PANEL (04/10/2018 9:15 PM NURSE GYNECOLOGY) Troponin I < 0.300 0.000 - 0.300 ng/mL 04/10/2018 9:54 PM [facility] HISTORICAL RESULTS Comment: Reference using CLOVER Chemiluminescence ? Negative: Repeat in 4-6 hours as indicated. Triglycerides 114 0 - 149 mg/dL 04/10/2018 9:56 PM [facility] HISTORICAL RESULTS Comment: National Lipid Association/NCEP Guidelines: ?? Normal ?< 150 mg/dL ?? Borderline high ?? 150-199 mg/dL ?? High ?200-499 mg/dL ?? Very High ? >=500 mg/dL Cholesterol 131 0 - 199 mg/dL 04/10/2018 9:56 PM [facility] HISTORICAL RESULTS Comment: National Lipid Association/NCEP Guidelines: Desirable ? < 200 mg/dL Borderline high: ??200-239 mg/dL High Risk: ?>=240 mg/dL HDL Cholesterol 58 mg/dL 9 9:56 PM [facility] HISTORICAL RESULTS Comment: Reference Ranges: ? Males: >=40 mg/dL ? Females: >=50 mg/dL LDL Cholesterol, Calc 50 0 - 129 mg/dL 04/10/2018 9:56 PM [facility] HISTORICAL RESULTS Comment: National Lipid Association/NCEP Guidelines: ??Optimal ? < 100 mg/dL ??Near Optimal ?100-129 mg/dL ??Borderline high 130-159 mg/dL ??High ?>=160 mg/dL Cholesterol/HDL Ratio 2.3 04/10/2018 9:56 PM [facility] HISTORICAL RESULTS Comment: Optimal ??< 3.5:1 High ? > 5:1 04/10/2018 9:15 PM NURSE GYNECOLOGY 04/10/2018 9:23 PM NURSE GYNECOLOGY us Jarad Garner SECURITY INTELLIGENCE ANALYST LAB BLOOD ORDERABLES Nika perez Result [facility] HISTORICAL RESULTS * (ABNORMAL) Comprehensive metabolic panel (04/10/2018 9:15 PM NURSE GYNECOLOGY) [facility] Signature Sodium 137 135 - 145 mmol/L 04/10/2018 9:56 PM [facility] HISTORICAL RESULTS Potassium 4.2 3.3 - 5.1 mmol/L 04/10/2018 9:56 PM [facility] HISTORICAL RESULTS Chloride 103 96 - 108 mmol/L 04/10/2018 9:56 PM [facility] HISTORICAL RESULTS Carbon Dioxide 23 22 - 32 mmol/L 04/10/2018 9:56 PM [facility] HISTORICAL RESULTS Anion Gap 11 7 - 16 04/10/2018 9:56 PM [facility] HISTORICAL RESULTS Glucose 85 70 - 100 mg/dL 04/10/2018 9:56 PM [facility] HISTORICAL RESULTS BUN 14 6 - 20 mg/dL 04/10/2018 9:56 PM [facility] HISTORICAL RESULTS Creatinine 0.7 0.5 - 1.1 mg/dL 04/10/2018 9:56 PM [facility] HISTORICAL RESULTS Comment: NOTE: Estimated GFR (Cockroft-Gault) will NOT be calculated unless patient Height and Weight were entered. Also, Kidney Disease Stage (GFR) and Estimated GFR (Cockroft-Gault) will NOT be calculated if Creatinine result is <0.2. Kidney Disease Stage > 90 mL/MIN 04/10/2018 9:56 PM [facility] HISTORICAL RESULTS Comment: NOTE; ??The GFR [...] dialysis @ Est GFR (Cockcroft-G) 80 ml/MIN 04/10/2018 9:56 PM [facility] HISTORICAL RESULTS Comment: Estimated GFR(Cockroft-Gault)is used to calculate patient medication dosage Calcium 9.0 8.6 - 10.0 mg/dL 04/10/2018 9:56 PM [facility] HISTORICAL RESULTS Total Protein 7.3 6.4 - 8.3 g/dL 04/10/2018 9:56 PM [facility] HISTORICAL RESULTS Albumin 3.7 3.5 - 5.2 g/dL 04/10/2018 9:56 PM [facility] HISTORICAL RESULTS Globulin 3.6(H) 2.3 - 3.5 gm/dL 04/10/2018 9:56 PM [facility] HISTORICAL RESULTS Albumin/Globulin Ratio 1.0(L) 1.1 - 1.8 04/10/2018 9:56 PM [facility] HISTORICAL RESULTS Total Bilirubin 0.2 0.0 - 1.2 mg/dL 04/10/2018 9:56 PM [facility] HISTORICAL RESULTS AST 64(H) 0 - 32 U/L 04/10/2018 9:56 PM [facility] HISTORICAL RESULTS ALT 50(H) 0 - 33 U/L 04/10/2018 9:56 PM [facility] HISTORICAL RESULTS Alkaline Phosphatase 182(H) 35 - 104 U/L 04/10/2018 9:56 PM [facility] HISTORICAL RESULTS 04/10/2018 9:15 PM NURSE GYNECOLOGY 04/10/2018 9:23 PM NURSE GYNECOLOGY us Jarad Garner SECURITY INTELLIGENCE ANALYST LAB BLOOD ORDERABLES Nika perez Result [facility] HISTORICAL RESULTS * (ABNORMAL) CBC with auto differential (04/10/2018 9:15 PM NURSE GYNECOLOGY) WBC 8.2 3.8 - 9.9 X10 3/ul 04/10/2018 9:29 PM [facility] HISTORICAL RESULTS RBC 3.84(L) 3.90 - 5.20 x10 6/ul 04/10/2018 9:29 PM [facility] HISTORICAL RESULTS Hemoglobin 8.3(L) 11.9 - 15.5 g/dL 04/10/2018 9:29 PM [facility] HISTORICAL RESULTS Hct 28.6(L) 35.6 - 45.5 % 04/10/2018 9:29 PM [facility] HISTORICAL RESULTS MCV 74.5(L) 81.3 - 96.4 fl 04/10/2018 9:29 PM [facility] HISTORICAL RESULTS MCH 21.6(L) 27.1 - 33.3 pg 04/10/2018 9:29 PM [facility] HISTORICAL RESULTS MCHC 29.0(L) 32.3 - 35.7 g/dl 04/10/2018 9:29 PM [facility] RDW 17.9(H) 11.1 - 14.9 % 04/10/2018 9:29 PM [facility] Plt Count 239 150 - 400 x10 3/ul 04/10/2018 9:29 PM [facility] RES[facility] MPV 9.8 9.1 - 12.3 fl 04/10/2018 9:29 PM [facility] RESULTS Neut % 60.3 % 04/10/2018 9:29 PM [facility] HISTORICAL RESULTS Immature Gran % 0.2 % 9 9:29 PM [facility] HISTORICAL RESULTS Lymph % 26.1 % 04/10/2018 9:29 PM [facility]ISTORICAL RESULTS [place] % 8.7 % 04/10/2018 9:29 PM [facility] HISTORICAL RESULTS Eos % 4.3 % 04/10/2018 9:29 PM [facility]IST[facility] RESULTS Baso % 0.4 % 04/10/2018 9:29 PM [facility] HISTORICAL RESULTS Absolute Neuts (auto) 4.9 1.7 - 6.5 x10 3/ul 04/10/2018 9:29 PM [facility] RES[facility] Immature Gran # 0.0 0.0 - 0.1 x10 3/ul 04/10/2018 9:29 PM NURSE GYNECOLOGY [facility] HISTORICAL RESULTS Absolute Lymphs (auto) 2.1 0.8 - 3.3 x10 3/ul 04/10/2018 9:29 PM NURSE GYNECOLOGY [facility] HISTORICAL RESULTS Absolute Monos (auto) 0.7 0.2 - 0.8 x10 3/ul 04/10/2018 9:29 PM NURSE GYNECOLOGY [facility] HISTORICAL RESULTS Absolute Eos (auto) 0.4 0.0 - 0.5 x10 3/ul 04/10/2018 9:29 PM NURSE GYNECOLOGY [facility] HISTORICAL RESULTS Absolute Basos (auto) 0.0 0.0 - 0.1 x10 3/ul 04/10/2018 9:29 PM NURSE GYNECOLOGY [facility] HISTORICAL RESULTS Nucleat RBC Rel Count 0.0 #/100WBC 04/10/2018 9:29 PM [facility] HISTORICAL RESULTS Absolute Nucleated RBC 0.00 0.00 - 0.01 x10 3/ul 04/10/2018 9:29 PM [facility] HISTORICAL RESULTS Absolute Neutrophils 4900 200 - 8000 /ul 04/10/2018 9:29 PM [facility] HISTORICAL RESULTS 04/10/2018 9:15 PM NURSE GYNECOLOGY 04/10/2018 9:23 PM NURSE GYNECOLOGY Jarad Garner SECURITY INTELLIGENCE ANALYST LAB BLOOD ORDERABLES Nika l Result [facility] HISTORICAL RESULTS * XR Chest 1 View (04/10/2018 12:00 AM NURSE GYNECOLOGY) Anatomical Region Laterality Modality Body, Chest N/A Radiographic Alexsandra ging 04/10/2018 Impressions 04/10/2018 8:52 PM NURSE GYNECOLOGY ??No acute cardiopulmonary disease. THIS IS AN ELECTRONICALLY VERIFIED FINAL REPORT 04/10/2018 8:49 PM - Electronically signed by Hi Arnold M.D. D: ??04/10/2018 8:49 PM T: Report ID: [id number] Reading Location: ??[id number] [EOD] Narrative 04/10/2018 8:52 PM NURSE GYNECOLOGY EXAM DESCRIPTION: ??Chest 1 View Portable REASON [...] by Hi Arnold M.D. T: Report ID: [id number] Reading Location: [place] [address] [EOD] Jarad Garner SECURITY INTELLIGENCE ANALYST IMG XR PROCEDURES Final R esult documented in this encounter Visit Diagnoses Diagnosis Other chest pain Wheezing Cough Shortness of breath Pain of left arm Essential (primary) hypertension Unspecified essential hypertension Personal history of pulmonary embolism Other mcfp (current) drug therapy Family history of diabetes mellitus Family history of ischemic heart disease and other diseases of the circulatory system documented in this encounter Care Teams Dietitian Research Relationship Specialty Start Date End Date Unknown, Notinfile PCP - General 02/18/18 10/24/18 Unknown, Notinfile 02/18/18 03/27/20 documented as of this encounter
--- OUTSIDE RECORDS SUMMARY | 2024-03-24 19:46 | XMS_ITS | Encounter Summary ---
Author Organization [facility] [place] Healthcare Address [address] [place] [address] Care Team Providers Care [place] Operator Name Role Phone Unknown, Notinfile Unavailable Unavailable Gerard Sutton MD Primary Care Provider [phone] Encounter Details Date Type Department Care Team (Late st Contact Info) Description 11/21/2018 9:31 PM CDT - 11/22/2018 2:01 AM CDT Hospital Encounter [facility] [address] [place] [address] Unknown, NotiJoseph Rangel, DO [address] [facility] [place] [address] Discharge Disposition: Discharge to home or self [...] I <0.300 0.000 - 0.300 ng/mL [facility] Comment: Reference using CLOVER Chemiluminescence ? Negative: Repeat in 4-6 hours as indicated. 11/22/2018 12:5 1 AM CDT 11/22/2018 12:54 AM CDT Narrative Resulting Agency Comment ER Jarad Garner CLOTH PRINTER LAB BLOOD ORDERABLES Nika l Result [facility] [address] [place] [address], [facility] [phone] * CTA Chest W IV Contrast - PE (11/22/2018 12:00 AM CDT) Anatomical Region Laterality Modality Body N/A Computed Tomogra phy 11/22/2018 12:2 7 AM CDT Narrative 11/22/2018 12:35 AM CDT Patient Name: TIARRA HAN ?Ordering Dr: Jarad Garner ANP ?? D.O.B: 1970 ? Exam Date: 11/22/19 ?? 0000 ?? Age: 47 ?Sex: Female ? MR#: [id number] ?? Loc: ? RADIOLOGY REPORT ?? Order #[id number] ?? CT Scan ? CTA Chest W [...] 11/22/2018 12:35 AM - Electronically signed by Avniash Zendejas M.D. ?? Avinash Zendejas M.D. ? RW ?? D: ??11/22/2018 12:35 AM ?? T: ? Report ID: [id number] ?? Reading Location: ??[id number] ? REPORT ELECTRONICALLY SIGNED IN OTHER VENDOR SYSTEM ?? Resulting Agency Comment E Procedure Note Avinash Zendejas MD - 11/22/2018 Patient Name: FRANK HANCT Evans Dr: Jarad Garner D.O.B: 1970 Exam Date: 11/22/18 0000 Age: 47 Sex: Female MR#: [id number] [id number] RAD[facility] REPORT Order #[id number] CT Scan CTA Chest W IV Contrast [...] Avinash Zendejas M.D. RW T: Report ID: [id number] Reading Location: [place] [address] REPORT ELECTRONICALLY SIGNED IN OTHER VENDOR SYSTEM Jarad Garner CLOTH PRINTER IMG CT PROCEDURES Final R esult * aPTT (11/21/2018 10:17 PM CDT) APTT 29 27 - 36 SECONDS [facility] Comment: New reference ranges in use 10-03-18. 11/21/2018 10:1 7 PM CDT 11/21/2018 10:23 PM CDT Narrative Resulting Agency Comment ER Jarad Garner NP LAB BLOOD ORDERABLES Nika l Result [facility] [address] [phone] * (ABNORMAL) Protime-INR (11/21/2018 10:17 PM CDT) PT 15.6(H) 12.2 - 14.8 SECONDS [facility] Comment: New reference ranges in use 10-03-18. INR 1.20 [facility] Comment: Recommended Therapeutic range for Oral Anticoagulant Therapy No anti-coagulation therapy ? Normal Range: ?0.8-1.4 Anti-coagulation therapy ? Low intensity therapy ?2.0-3.0 ? High intensity therapy ?? 2.5-3.5 Critical Value ? Greater than or equal to 5.0 Patients should be monitored for serious bleeding. 11/21/2018 10:1 7 PM CDT 11/21/2018 10:23 PM CDT Narrative Resulting Agency Comment ER Jarad Garner CLOTH PRINTER LAB BLOOD ORDERABLES Nika perez Result [facility] [address] [place] [address], [facility] [phone] * (ABNORMAL) CBC with auto differential (11/21/2018 10:14 PM CDT) WBC 6.4 3.8 - 9.9 X10 3/ul [facility] RBC 3.60(L) 3.90 - 5.20 x10 6/ul [facility] Hemoglobin 7.0(L) 11.9 - 15.5 g/dL [facility] Hct 24.8(L) 35.6 - 45.5 % [facility] MCV 68.9(L) 81.3 - 96.4 fl [facility] MCH 19.4(L) 27.1 - 33.3 pg [facility] MCHC 28.2(L) 32.3 - 35.7 g/dl [facility] RDW 21.7(H) 11.1 - 14.9 % [facility] Plt Count 212 150 - 400 x10 3/ul [facility] MPV 9.5 9.1 - 12.3 fl [facility] Neut % 68.8 % [facility] Immature Gran % 0.2 % [facility] Lymph % 17.4 % [facility] [place] % 10.4 % [facility] Eos % 2.7 % [facility] AUTO BASO % 0.5 % [facility] NEUTROPHIL ABS # 4.4 1.7 - 6.5 x10 3/ul [facility] Immature Gran # 0.0 0.0 - 0.1 x10 3/ul [facility] Absolute Lymphs (auto) 1.1 0.8 - 3.3 x10 3/ul [facility] Absolute Monos (auto) 0.7 0.2 - 0.8 x10 3/ul [facility] Absolute Eos (auto) 0.2 0.0 - 0.5 x10 3/ul [facility] BASOPHIL ABS # 0.0 0.0 - 0.1 x10 3/ul [facility] Nucleat RBC Rel Count 0.0 #/100WBC [facility] NRBC abs 0.00 0.00 - 0.01 x10 3/ul [facility] Platelet Evaluation AGREE AGREE [facility] Comment: Slide review of platelets correlates with instrument count. Anisocytosis 1+ [facility] Microcytosis 1+ [facility] Ovalocytes 1+ [facility] Absolute Neutrophils 4,400 200 - 8,000 /ul [facility] 11/21/2018 10:1 4 PM CDT 11/21/2018 10:23 PM CDT Narrative Resulting Agency Comment ER us Jarad Garner CLOTH PRINTER LAB BLOOD ORDERABLES Nika perez Result [facility] [address] [phone] * TNI with LIPID PANEL (11/21/2018 10:14 PM CDT) Troponin I <0.300 0.000 - 0.300 ng/mL [facility] Comment: Reference using [place] Chemiluminescence ? Negative: Repeat in 4-6 hours as indicated. Triglycerides 76 0 - 149 mg/dL [facility] Comment: National Lipid Association/NCEP Guidelines: ?? Normal ?< 150 mg/dL ?? Borderline high ?? 150-199 mg/dL ?? High ?200-499 mg/dL ?? Very High ? >=500 mg/dL Cholesterol 113 0 - 199 mg/dL [facility] Comment: National Lipid Association/NCEP Guidelines: Desirable ? < 200 mg/dL Borderline high: ??200-239 mg/dL High Risk: ?>=240 mg/dL HDL Cholesterol 52 mg/dL [facility] Comment: Reference Ranges: ? Males: >=40 mg/dL ? Females: >=50 mg/dL LDL Cholesterol, Calc 46 0 - 129 mg/dL [facility] Comment: National Lipid Association/NCEP Guidelines: ??Optimal ? < 100 mg/dL ??Near Optimal ?100-129 mg/dL ??Borderline high 130-159 mg/dL ??High ?>=160 mg/dL Cholesterol/HDL Ratio 2.2 [facility] Comment: Optimal ??< 3.5:1 High ? > 5:1 11/21/2018 10:1 4 PM CDT 11/21/2018 10:23 PM CDT Narrative Resulting Agency Comment ER us Jarad Garner CLOTH PRINTER LAB BLOOD ORDERABLES Nika perez Result [facility] [address] [place], [place] [id number] [place] [address] * (ABNORMAL) Comprehensive metabolic panel (11/21/2018 10:14 PM CDT) Sodium 142 135 - 145 mmol/L [facility] Potassium 3.6 3.3 - 5.1 mmol/L [facility] Chloride 107 96 - 108 mmol/L [facility] Carbon Dioxide 25 22 - 32 mmol/L [facility] Anion Gap 10 7 - 16 [facility] Glucose 83 70 - 100 mg/dL [facility] BUN 12 8 - 25 mg/dL [facility] Creatinine 0.8 0.5 - 1.1 mg/dL [facility] Comment: NOTE: Estimated GFR (Cockroft-Gault) will NOT be calculated unless patient Height and Weight were entered. Also, Kidney Disease Stage (GFR) and Estimated GFR (Cockroft-Gault) will NOT be calculated if Creatinine result is <0.2. Kidney Disease Stage >90 mL/MIN [facility] Comment: NOTE; ??The GFR is an [...] dialysis Calcium 9.7 8.6 - 10.3 mg/dL [facility] Total Protein 7.5 6.4 - 8.3 g/dL [facility] Albumin 3.8 3.5 - 5.0 g/dL [facility] Globulin 3.7(H) 2.3 - 3.5 gm/dL [facility] Albumin/Globulin Ratio 1.0(L) 1.1 - 1.8 [facility] Total Bilirubin 0.6 0.0 - 1.2 mg/dL [facility] AST 28 0 - 32 U/L [facility] ALT 13 0 - 33 U/L [facility] Alkaline Phosphatase 109(H) 35 - 104 U/L [facility] 11/21/2018 10:1 4 PM CDT 11/21/2018 10:23 PM CDT Narrative Resulting Agency Comment ER us Jarad Garner CLOTH PRINTER LAB BLOOD ORDERABLES Nika l Result [address] [phone] * ECG 12 lead (11/21/2018 9:54 PM CDT) Ventricular Rate EKG/Min 72 BPM [facility] Atrial Rate 72 BPM [facility] HI-Interval (MSEC) 162 ms [facility] QRS-Interval (MSEC) 102 ms [facility] QT-Interval (MSEC) 436 ms [facility] QTc 477 ms [facility] P [place] 57 degrees [facility] R [place] -6 degrees [facility] T [place] 4 degrees [facility] Diagnosis Normal sinus rhythm Minimal voltage criteria for LVH, may be normal variant Borderline ECG When compared with ECG of 21-NOV-2018 21:36, No significant change was found [facility] 11/21/2018 9:54 PM CDT 11/22/2018 3:39 PM CDT Narrative Resulting Agency Comment SAURABH us Notinfile Unknown ECG ORDERABLES Final Result [address] * ECG 12 lead (11/21/2018 9:36 PM CDT) Ventricular Rate EKG/Min 77 BPM [facility] Atrial Rate 77 BPM [facility] HI-Interval (MSEC) 170 ms [facility] QRS-Interval (MSEC) 86 ms [facility] QT-Interval (MSEC) 390 ms [facility] QTc 441 ms [facility] P [place] 79 degrees [facility] R [place] -3 degrees [facility] T [place] 9 degrees [facility] Diagnosis Normal sinus rhythm Minimal voltage criteria for LVH, may be normal variant Borderline ECG When compared with ECG of 25-OCT-2018 19:01, Nonspecific T wave abnormality no longer evident in Anterior leads [facility] 11/21/2018 9:36 PM CDT 11/24/2018 12:15 PM CDT Narrative Resulting Agency Comment PREADT us Jarad Garner [employer]INTER ECG ORDERABLES Edited ER RADIOLOGY * XR Chest 1 View (11/21/2018 12:00 AM CDT) Anatomical Region Laterality Modality Body, Chest N/A Radiographic Alexsandra ging 11/21/2018 10:3 3 PM CDT Narrative 11/21/2018 10:33 PM CDT Patient Name: TIARRA HAN ?Ordering Dr: Jarad Garner ANP ?? D.O.B: 1970 ? Exam Date: 11/21/18 ?? 0000 ?? Age: 47 ?Sex: Female ? MR#: [id number] ?? Loc: ? RADIOLOGY REPORT ?? Order #[id number] ?? Radiology ? Chest 1 View Portable [...] 10:33 PM ?? T: ? Report ID: [id number] ?? Reading Location: ??[id number] ? REPORT ELECTRONICALLY SIGNED IN OTHER VENDOR SYSTEM ?? Resulting Agency Comment P Procedure Note Paola Mendez MD - 11/21/2018 Patient Name: TIARRA HAN Dr: Jarad Garner D.O.B: 1970 Exam Date: 11/21/18 0000 Age: 47 Sex: Female MR#: [id number] Loc: RADIOLOGY REPORT Order #[id number] Radiology Chest 1 View Portable Signed EXAM [...] Paola Mendez M.D. RB T: Report ID: [id number] Reading Location: [place] [id number] REPORT ELECTRONICALLY SIGNED IN OTHER VENDOR SYSTEM Jarad Garner [employer] PRINTER IMG XR PROCEDURES Final R esult documented in this encounter Visit Diagnoses Not on filedocumented in this encounter Care Teams [place] Operator Relationship Specialty Start Date End Date Gerard Sutton MD PCP - General 11/21/18 03/27/20 Unknown, Notinfile 02/18/18 03/27/20 documented as of this encounter
--- OUTSIDE RECORDS SUMMARY | 2024-03-24 19:46 | XMS_ITS | Encounter Summary ---
Author Organization [facility] Healthcare Address [address] [place] [address] Care Team Providers Care Golf Sales Manager Name Role Phone Unknown, Notinfile Unavailable Unavailable Gerard Sutton MD Primary Care Provider [phone] Encounter Details Date Type Department Care Team (Late st Contact Info) Description 01/02/2019 11:10 PM CDT - 01/06/2019 11:20 AM CDT Hospital Encounter [facility] ADMIT Unknown, Geo Gilbert MD [address] [place] [id number] Discharge Disposition: Discharge to home or self [...] Lupus anticoagulant (01/06/2019 5:20 AM CDT) Pathologist [facility] Prothrombin time ARUP 15.0 12.0 - 15.5 [...] has not already been performed. Performed by [facility], [address] [place] [id number] [email or web address], Frank Wang MD, Lab. Director 01/06/2019 5:20 AM CDT 01/06/2019 5:39 AM CDT Narrative Resulting Agency Comment IN Diandra Andrew MD LAB BLOOD ORDERABLES Final Result Performing Organization Address [facility] de Phone Number [facility] [address] [phone] * (ABNORMAL) Homocysteine (01/06/2019 5:20 AM CDT) Pathologist [facility] Homocysteine 23(A) <=10 umol/L [facility] Comment: INTERPRETIVE INFORMATION: Homocysteine, Total Elevated total homocysteine (tHcy) concentrations may be associated with vitamin B12 deficiency, folate deficiency, or inherited disorders of methionine metabolism. tHcy may also be used as a weak-graded risk factor for cardiovascular disease or stroke. Performed by [facility], [address] [place] [id number] [email or web address], Frank Wang MD, Lab. Director 01/06/2019 5:20 AM CDT 01/06/2019 5:39 AM CDT Narrative Resulting Agency Comment IN Diandra Andrew MD LAB BLOOD ORDERABLES Final Result Performing Organization Address [facility] de Phone Number [facility] [address] [phone] * (ABNORMAL) CBC with auto differential (01/06/2019 5:20 AM CDT) Pathologist [facility] WBC 5.1 3.8 - 9.9 X10 3/ul [facility] RBC 3.60(L) 3.90 - 5.20 x10 6/ul [facility] Hemoglobin 7.7(L) 11.9 - 15.5 g/dL [facility] Hct 27.1(L) 35.6 - 45.5 % [facility] MCV 75.3(L) 81.3 - 96.[address] [facility] MCH 21.4(L) 27.1 - 33.[address] [facility] MCHC 28.4(L) 32.3 - 35.7 g/dl [facility] RDW 24.6(H) 11.1 - 14.9 % [facility] Plt Count 135(L) 150 - 400 x10 3/ul [facility] MPV 9.6 9.1 - 12.[address] [facility] Neut % 60.4 % [facility] Immature Gran % 0.2 % [facility] Lymph % 20.4 % [facility] [place] % 12.7 % [facility] Eos % 5.9 % [facility] AUTO BASO % 0.4 % [facility] NEUTROPHIL ABS # 3.1 1.7 - 6.5 x10 3/ul [facility] Immature Gran # 0.0 0.0 - 0.1 x10 3/ul [facility] Absolute Lymphs (auto) 1.0 0.8 - 3.3 x10 3/ul [facility] Absolute Monos (auto) 0.7 0.2 - 0.8 x10 3/ul [facility] Absolute Neutrophils 3,100 200 - 8,000 /ul [facility] 01/06/2019 5:20 AM CDT 01/06/2019 5:39 AM CDT Narrative Resulting Agency Comment IN Soo Cerda MD LAB BLOOD ORDERABLES F inal Result [address] [phone] * Blood culture Blood (01/05/2019 7:14 PM CDT) Pathologist [facility] CULTURE BLOOD ADULT (SET OF 2) NO GROWTH DAY [address] [facility] Blood 01/05/2019 7:14 PM CDT 01/05/2019 7:34 PM CDT Diandra Andrew MD LAB MICROBIOLOGY - GENERAL ORDERABLES Final Result Performing Organization Address City/[facility]/ZIP Co de Phone Number [address] [phone] * Procalcitonin (01/05/2019 7:14 PM CDT) [facility] Procalcitonin 0.04 0.0 - 0.24 ng/mL [facility] [...] Andrew MD LAB BLOOD ORDERABLES Final Result [address] [phone] * (ABNORMAL) IgE (01/05/2019 7:14 PM CDT) Pathologist [facility] IgE 126(H) 0 - 100 IU/mL [facility] 01/05/2019 7:14 PM CDT 01/05/2019 7:34 PM CDT Narrative Resulting Agency Comment IN Diandra Andrew MD LAB BLOOD ORDERABLES Final Result [address] [phone] * Blood culture Blood (01/05/2019 7:01 PM CDT) [facility] CULTURE BLOOD ADULT (SET OF 2) NO GROWTH DAY [address] [facility] Blood 01/05/2019 7:01 PM CDT 01/05/2019 7:34 PM CDT Diandra Andrew MD LAB MICROBIOLOGY - GENERAL ORDERABLES Final Result [address] [phone] * Basic metabolic panel (01/05/2019 7:23 AM CDT) [facility] Sodium 140 135 - 145 mmol/L [facility] Potassium 4.0 3.3 - 5.1 mmol/L [facility] Chloride 106 96 - 108 mmol/L [facility] Carbon Dioxide 27 22 - 32 mmol/L [facility] Anion Gap 7 7 - [address] [facility] Glucose 87 70 - 100 mg/dL [facility] BUN 10 8 - 25 mg/dL [facility] Creatinine 0.8 0.5 - 1.1 mg/dL [facility] [...] on dialysis Est GFR (Cockcroft-G) 125 ml/MIN [facility] Comment: Estimated GFR(Cockroft-Gault)is used to calculate patient medication dosage Calcium 8.8 8.6 - 10.3 mg/dL [facility] 01/05/2019 7:23 AM CDT 01/05/2019 7:38 AM CDT Narrative Resulting Agency Comment IN Soo Cerda MD LAB BLOOD ORDERABLES F inal Result [facility] [address] [place] [address], [facility] [phone] * (ABNORMAL) CBC with auto differential (01/05/2019 7:23 AM CDT) WBC 4.6 3.8 - 9.9 X10 3/ul [facility] RBC 3.48(L) 3.90 - 5.20 x10 6/ul [facility] Hemoglobin 7.5(L) 11.9 - 15.5 g/dL [facility] Hct 26.2(L) 35.6 - 45.5 % [facility] MCV 75.3(L) 81.3 - 96.[address] [facility] MCH 21.6(L) 27.1 - 33.[address] [facility] MCHC 28.6(L) 32.3 - 35.7 g/dl [facility] RDW 24.6(H) 11.1 - 14.9 % [facility] Plt Count 134(L) 150 - 400 x10 3/ul [facility] MPV 9.2 9.1 - 12.[address] [facility] Neut % 58.2 % [facility] Immature Gran % 0.2 % [facility] [facility] Lymph % 22.2 % [facility] [place] % 12.7 % [facility] Eos % 6.5 % [facility] AUTO BASO % 0.2 % [facility] NEUTROPHIL ABS # 2.7 1.7 - 6.5 x10 3/ul [facility] Immature Gran # 0.0 0.0 - 0.1 x10 3/ul [facility] Absolute Lymphs (auto) 1.0 0.8 - 3.3 x10 3/ul [facility] Absolute Monos (auto) 0.6 0.2 - 0.8 x10 3/ul [facility] Absolute Neutrophils 2,700 200 - 8,000 /ul [facility] 01/05/2019 7:23 AM CDT 01/05/2019 7:38 AM CDT Narrative Resulting Agency Comment IN Soo Cerda MD LAB BLOOD ORDERABLES F inal Result Performing Organization Address City/[facility]/[place]IP [place] [address], [facility] [phone] * (ABNORMAL) Heparin anti factor Xa activity (01/04/2019 9:22 AM CDT) [facility] Heparin Chromogenic 0.21(L) 0.30 - 0.70 IU/mL [facility] Comment: Anti-factor Xa is used to monitor unfractionated Heparin in weight-based Heparin therapy. ??At [facility], anti-factor Xa cannot be used to monitor Low Molecular Weight Heparin. ??If Low Molecular Weight Heparin monitoring is desired, please order LMWH [place] Heme [place] [phone]. 01/04/2019 9:22 AM CDT 01/04/2019 9:28 AM CDT Narrative [facility] - 01/04/2019 9:43 AM CDT Is patient on IV unfractionated heparin Y Resulting Agency Comment IN Soo Cerda MD LAB BLOOD ORDERABLES F inal Result Performing Organization Address City/[facility]/ZIP [place] [address], [facility] [phone] * Basic metabolic panel (01/04/2019 9:21 AM CDT) [facility] Sodium 139 135 - 145 mmol/L [facility] Potassium 3.9 3.3 - 5.1 mmol/L [facility] Chloride 106 96 - 108 mmol/L [facility] Carbon Dioxide 26 22 - 32 mmol/L [facility] Anion Gap 7 7 - [address] [facility] Glucose 92 70 - 100 mg/dL [facility] [...] on dialysis Est GFR (Cockcroft-G) 143 ml/MIN [facility] Comment: Estimated GFR(Cockroft-Gault)is used to calculate patient medication dosage Calcium 9.2 8.6 - 10.3 mg/dL [facility] 01/04/2019 9:21 AM CDT 01/04/2019 9:28 AM CDT Narrative Resulting Agency Comment IN us Geo Pool MD LAB BLOOD ORDERABLES Final Result [facility] [address] [place] [address], [facility] [phone] * (ABNORMAL) CBC with auto differential (01/04/2019 9:21 AM CDT) WBC 5.7 3.8 - 9.9 X10 3/ul [facility] RBC 3.96 3.90 - 5.20 x10 6/ul [facility] Hemoglobin 8.5(L) 11.9 - 15.5 g/dL [facility] Hct 29.4(L) 35.6 - 45.5 % [facility] MCV 74.2(L) 81.3 - 96.[address] [facility] MCH 21.5(L) 27.1 - 33.[address] [facility] MCHC 28.9(L) 32.3 - 35.7 g/dl [facility] RDW 24.2(H) 11.1 - 14.9 % [facility] Plt Count 155 150 - 400 x10 3/ul [facility] MPV 9.0(L) 9.1 - 12.[address] [facility] Neut % 63.3 % [facility] Immature Gran % 0.4 % [facility] Lymph % 20.4 % [facility] [place] % 9.2 % [facility] Eos % 6.2 % [facility] AUTO BASO % 0.5 % [facility] NEUTROPHIL ABS # 3.6 1.7 - 6.5 x10 3/ul [facility] Immature Gran # 0.0 0.0 - 0.1 x10 3/ul [facility] Absolute Lymphs (auto) 1.2 0.8 - 3.3 x10 3/ul [facility] Absolute Monos (auto) 0.5 0.2 - 0.8 x10 3/ul [facility] Absolute Eos (auto) 0.4 0.0 - 0.5 x10 3/ul [facility] BASOPHIL ABS # 0.0 0.0 - 0.1 x10 3/ul [facility] Nucleat RBC Rel Count 0.0 #/100WBC [facility] NRBC abs 0.00 0.00 - 0.01 x10 3/ul [facility] Absolute Neutrophils 3,600 200 - 8,000 /ul [facility] 01/04/2019 9:21 AM CDT 01/04/2019 9:28 AM CDT Narrative Resulting Agency Comment IN Geo Pool MD LAB BLOOD ORDERABLES Final Result Performing Organization Address City/[facility] Co de Phone Number [address] [phone] * (ABNORMAL) Heparin anti factor Xa activity (01/04/2019 1:54 AM CDT) Pathologist [facility] Heparin Chromogenic 0.22(L) 0.30 - 0.70 IU/mL [facility] Comment: Anti-factor Xa is used to monitor unfractionated Heparin in weight-based Heparin therapy. ??At [facility], anti-factor Xa cannot be used to monitor Low Molecular Weight Heparin. ??If Low Molecular Weight Heparin monitoring is desired, please order LMWH [place] Heme [place] extension [phone]. 01/04/2019 1:54 AM CDT 01/04/2019 1:57 AM CDT Narrative [facility] - 01/04/2019 2:10 AM CDT Is patient on IV unfractionated heparin Y Resulting Agency Comment IN Soo Cerda MD LAB BLOOD ORDERABLES F inal Result Performing Organization Address City/[facility]/ZIP [place] [address], [facility] [phone] * Guaiac occult blood, fecal, non-neoplasm (01/04/2019 1:12 AM CDT) Stool Occult Blood POSITIVE NEGATIVE [facility] 01/04/2019 1:12 AM CDT 01/04/2019 1:53 AM CDT Narrative [facility] - 01/04/2019 2:33 AM CDT Collected By AD Resulting Agency Comment IN Ozzie Arrington DO LAB BODY FLUIDS AND STOOLS ORD ERABLES Final Result Performing Organization Address [facility]/ZIP Co de Phone Number [place] [id number] [address] [phone] * PROCEDURE - RESULT (01/04/2019 12:00 AM CDT) Narrative 01/04/2019 12:00 AM CDT Ordered by an unspecified provider. Historical Provider Final Res ult * Heparin anti factor Xa activity (01/03/2019 8:08 PM CDT) [facility] Heparin Chromogenic 0.33 0.30 - 0.70 IU/mL [facility] Comment: Anti-factor Xa is used to monitor unfractionated Heparin in weight-based Heparin therapy. ??At [facility], anti-factor Xa cannot be used to monitor Low Molecular Weight Heparin. ??If Low Molecular Weight Heparin monitoring is desired, please order LMWH [place] notify Heme [place] extension [phone]. 01/03/2019 8:08 PM CDT 01/03/2019 8:11 PM CDT Narrative [facility] - 01/03/2019 8:22 PM CDT Is patient on IV unfractionated heparin Y Resulting Agency Comment IN us Geo Pool MD LAB BLOOD ORDERABLES Final Result [address] [phone] * (ABNORMAL) CBC with auto differential (01/03/2019 4:55 PM CDT) [facility] WBC 8.4 3.8 - 9.9 X10 3/ul [facility] RBC 4.16 3.90 - 5.20 x10 6/ul [facility] Hemoglobin 9.0(L) 11.9 - 15.5 g/dL [facility] Comment: Results Reviewed Hct 30.9(L) 35.6 - 45.5 % [facility] MCV 74.3(L) 81.3 - 96.[address] [facility] MCH 21.6(L) 27.1 - 33.[address] [facility] MCHC 29.1(L) 32.3 - 35.7 g/dl [facility] RDW 24.9(H) 11.1 - 14.9 % [facility] Plt Count 165 150 - 400 x10 3/ul [facility] MPV 8.9(L) 9.1 - 12.[address] [facility] Neut % 72.2 % [facility] Immature Gran % 0.2 % [facility] [facility] Lymph % 14.4 % [facility] [place] % 7.7 % [facility] Eos % 5.1 % [facility] AUTO BASO % 0.4 % [facility] NEUTROPHIL ABS # 6.1 1.7 - 6.5 x10 3/ul [facility] Immature Gran # 0.0 0.0 - 0.1 x10 3/ul [facility] Absolute Lymphs (auto) 1.2 0.8 - 3.3 x10 3/ul [facility] Absolute Monos (auto) 0.7 0.2 - 0.8 x10 3/ul [facility] Absolute Eos (auto) 0.4 0.0 - 0.5 x10 3/ul [facility] BASOPHIL ABS # 0.0 0.0 - 0.1 x10 3/ul [facility] Nucleat RBC Rel Count 0.0 #/100WBC [facility] NRBC abs 0.00 0.00 - 0.01 x10 3/ul [facility] Absolute Neutrophils 6,100 200 - 8,000 /ul [facility] 01/03/2019 4:55 PM CDT 01/03/2019 4:58 PM CDT Narrative Resulting Agency Comment IN us Soo Cerda MD LAB BLOOD ORDERABLES F inal Result [facility] [address] [place] [address], [facility] [phone] * Transthoracic Echo Complete W Doppler/CF (01/03/2019 [...] Date: 01/03/2019 Status:IN;MAIN : : Patient Location: [facility]^[id number]: 67 in: : Weight: 309lb BP: 141/86 [...] factor Xa activity (01/03/2019 12:07 PM CDT) [facility] Heparin Chromogenic 0.11(L) 0.30 - 0.70 IU/mL [facility] Comment: Anti-factor Xa is used to monitor unfractionated Heparin in weight-based Heparin therapy. ??At [facility] laboratories, anti-factor Xa cannot be used to monitor Low Molecular Weight Heparin. ??If Low Molecular Weight Heparin monitoring is desired, please order LMWH and notify Heme at extension [phone]. 01/03/2019 12:0 7 PM CDT 01/03/2019 12:14 PM CDT Narrative [facility] - 01/03/2019 12:27 PM CDT Is patient on IV unfractionated heparin Y Resulting Agency Comment IN us Geo Pool MD LAB BLOOD ORDERABLES Final Result [facility] [address] [place] [address], [facility] [phone] * (ABNORMAL) Basic metabolic panel (01/03/2019 2:38 AM CDT) Sodium 140 135 - 145 mmol/L [facility] Potassium 3.2(L) 3.3 - 5.1 mmol/L [facility] Chloride 104 96 - 108 mmol/L [facility] Carbon Dioxide 26 22 - 32 mmol/L [facility] Anion Gap 10 7 - [address] [facility] Glucose 90 70 - 100 mg/dL [facility] BUN 12 8 - 25 mg/dL [facility] Creatinine 0.8 0.5 - 1.1 mg/dL [facility] [...] on dialysis Est GFR (Cockcroft-G) 125 ml/MIN [facility] Comment: Estimated GFR(Cockroft-Gault)is used to calculate patient medication dosage Calcium 9.4 8.6 - 10.3 mg/dL [facility] 01/03/2019 2:38 AM CDT 01/03/2019 2:42 AM CDT Narrative Resulting Agency Comment IN us Ozzie Arrington DO LAB BLOOD ORDERABLES Final Res ult Performing Organization Address [facility] Co de Phone Number [address] [phone] * aPTT (01/03/2019 2:38 AM CDT) APTT 28 27 - [address] [facility] Comment: New reference ranges in use 10-03-18. 01/03/2019 2:38 AM CDT 01/03/2019 2:42 AM CDT Narrative Resulting Agency Comment IN Soo Cerda MD LAB BLOOD ORDERABLES F inal Result Performing Organization Address [facility] Co de Phone Number [address] [phone] * (ABNORMAL) Protime-INR (01/03/2019 2:38 AM CDT) PT 14.9(H) 12.2 - 14.[address] [facility] Comment: New reference ranges in use 10-03-18. INR 1.[address] [facility] [...] [facility] [address] [phone] * (ABNORMAL) CBC with auto differential (01/03/2019 2:38 AM CDT) WBC 7.7 3.8 - 9.9 X10 3/ul [facility] RBC 3.66(L) 3.90 - 5.20 x10 6/ul [facility] Hemoglobin 7.2(L) 11.9 - 15.5 g/dL [facility] Hct 26.0(L) 35.6 - 45.5 % [facility] MCV 71.0(L) 81.3 - 96.[address] [facility] MCH 19.7(L) 27.1 - 33.[address] [facility] MCHC 27.7(L) 32.3 - 35.7 g/dl [facility] RDW 23.9(H) 11.1 - 14.9 % [facility] Plt Count 177 150 - 400 x10 3/ul [facility] MPV 9.2 9.1 - 12.[address] [facility] Neut % 73.7 % [facility] Immature Gran % 0.1 % [facility] [facility] Lymph % 14.0 % [facility] [place] % 8.4 % [facility] Eos % 3.5 % [facility] AUTO BASO % 0.3 % [facility] NEUTROPHIL ABS # 5.7 1.7 - 6.5 x10 3/ul [facility] Immature Gran # 0.0 0.0 - 0.1 x10 3/ul [facility] Absolute Lymphs (auto) 1.1 0.8 - 3.3 x10 3/ul [facility] Absolute Monos (auto) 0.7 0.2 - 0.8 x10 3/ul [facility] Absolute Neutrophils 5,700 200 - 8,000 /ul [facility] 01/03/2019 2:38 AM CDT 01/03/2019 2:42 AM CDT Narrative Resulting Agency Comment IN Soo Cerda MD LAB BLOOD ORDERABLES F inal Result [facility] [address] [place] [address], [facility] [phone] * CARDIOLOGY REPORT (01/03/2019 12:00 AM CDT) Anatomical Region Laterality Modality Other Narrative 01/03/2019 12:00 AM CDT Ordered by an unspecified provider. us Historical Provider [facility] KENJI WOLFF Final Result * US Vein Duplex Lower Extremity Bilateral Complete (01/03/2019 12:00 AM CDT) Anatomical Region Laterality Modality Vascular Bilateral Ultrasound 01/04/2019 7:12 AM CDT Narrative 01/04/2019 8:39 AM CDT ? Patient Name: TIARRA ADDISON ? MR#: ?? [id number] ? Status: ADM IN ?D.O.B: 1970 Age: ??48 ?Sex: Female ? ADM/SER Dt: 01/02/19 ?Disch Dt: ? LOC: H.2NE ? Ordering Phy: Rodrick,Zeferino Sapp MD ? Order #[id number] ? Venous Dop/Duplex Both Legs ?? Zeferino [...] deep venous thrombosis. ? NTS ? Job: [id number] ? Dictated By: Zeferino Mensah MD ?? Dictated For: Zeferino Mensah MD ? <Electronically signed by Zeferino Mensah MD> ? 01/04/19 0756 ?? Resulting Agency Comment I Procedure Note Zeferino Mensah MD - 01/04/2019 Patient Name: TIARRA ADDISON MR#: [id number] Status: ADM IN D.O.B: 1970 Age: 48Sex: Female ADM/SER Dt: 01/02/19 Disch Dt:LOC: H.2NE Ordering Phy: Zeferino Mensah MD Order #[id number] Venous Dop/Duplex Both Legs Zeferino Mensah MD [...] calf vein deep venous thrombosis. [facility] Job: [id number] Dictated By: Zeferino Mensah MD Dictated For: [...] ?? Age: 48 ?Sex: Female ? MR#: [id number] ?? Loc: ??N268-02 ? RADIOLOGY REPORT ?? Order #[id number] ?? Radiology ? Chest 1 View Portable [...] 5:11 AM ?? T: ? Report ID: [id number] ?? Reading Location: ??[id number] ? REPORT ELECTRONICALLY SIGNED IN OTHER VENDOR SYSTEM ?? Resulting Agency Comment I Procedure Note Avinash Zendejas MD - 01/03/2019 Patient Name: TIARRA ADDISON [address]: Geo Pool MDOBeaB: 1970 Exam Date: 01/03/19 0000 Age: 48 Sex: Female MR#: [id number] Loc: N268-02 RADIOLOGY REPORT Order #[id number] Radiology Chest 1 View Portable Signed EXAM [...] Avinash Zendejas M.D. RW T: Report ID: [id number] Reading Location: [id number] REPORT ELECTRONICALLY SIGNED IN OTHER VENDOR SYSTEM us Geo Pool MD IMG XR PROCEDURES Final Res ult * Antibody screen (01/02/2019 9:30 PM CDT) [facility] Antibody Screen NEGATIVE [facility] 01/02/2019 9:30 PM CDT 01/02/2019 9:43 PM CDT Narrative Resulting Agency Comment ER Ozzie [facility] PET LAB BLOOD BANK TEST ORDERABLES Final Result Performing Organization Address City/[facility]/ZIP Co de Phone Number [address] [phone] * Type and screen (01/02/2019 9:30 PM CDT) Blood Type OP [facility] 01/02/2019 9:30 PM CDT 01/02/2019 9:43 PM CDT Narrative [facility] - 01/02/2019 10:23 PM CDT N Resulting Agency Comment ER Ozzie Clean PET LAB BLOOD BANK TEST ORDERABLES Final Result Performing Organization Address [facility] Co de Phone Number [address] [phone] * aPTT (01/02/2019 9:30 PM CDT) Pathologist [facility] APTT 30 27 - [address] [facility] Comment: New reference ranges in use 10-03-18. 01/02/2019 9:30 PM CDT 01/02/2019 9:43 PM CDT Narrative Resulting Agency Comment ER [employer] LAB BLOOD ORDERABLES Final Res ult Performing Organization Address [facility] Co de Phone Number [address] [phone] * (ABNORMAL) Protime-INR (01/02/2019 9:30 PM CDT) Pathologist [facility] PT 15.0(H) 12.2 - 14.[address] [facility] Comment: New reference ranges in use 6-28-19. INR 1.[address] [facility] [...] ORDERABLES Final Res ult Performing Organization Address [facility] Co de Phone Number [address] [phone] * RBC TRANSFUSION ORDER (01/02/2019 9:29 PM CDT) RBC TRANSFUSION ORDER [id number] OP RBCORDER TRANSFUSED 01/03/19 0815 [id number] OP RBCORDER TRANSFUSED 01/03/[address] [facility] 01/02/2019 9:29 PM CDT 01/02/2019 9:44 PM CDT Narrative Resulting Agency Comment IN Ozzie Arrington DO LAB BLOOD ORDERABLES Final Res ult Performing Organization Address [facility] de Phone Number [address] [phone] * CTA Chest W IV Contrast - PE (01/02/2019 9:26 PM CDT) Anatomical Region Laterality Modality Body N/A Computed Tomogra phy 01/02/2019 10:4 0 PM CDT Narrative 01/02/2019 10:57 PM CDT Patient Name: TIARRA ADDISON ?Ordering Dr: Ozzie Arrington DO ?? D.O.B: 1970 ? Exam Date: 01/02/19 ?? 6 ?? Age: 48 ?Sex: Female ? MR#: [id number] ?? Loc: ? RADIOLOGY REPORT ?? Order #[id number] ?? CT Scan ? CTA Chest W [...] 10:57 PM ?? T: ? Report ID: [id number] ?? Reading Location: ??[id number] ? REPORT ELECTRONICALLY SIGNED IN OTHER VENDOR SYSTEM ?? Resulting Agency Comment E Procedure Note Avinash Zendejas MD - 01/02/2019 Patient Name: TIARRA ADDISON Dr: Ozzie Arrington DO, D.O.B: 1970 Exam Date: 01/02/192125 Age: 48 Sex: Female MR#: [id number] Loc: RADIOLOGY REPORT Order #[id number] CT Scan CTA Chest W IV Contrast [...] Avinash Zendejas M.D. RW T: Report ID: [id number] Reading Location: [id number] REPORT ELECTRONICALLY SIGNED IN OTHER VENDOR SYSTEM [...] ?? Age: 48 ?Sex: Female ? MR#: [id number] ?? Loc: ? RADIOLOGY REPORT ?? Order #[id number] ?? CT Scan ? CT Abd/Pelvis W [...] 10:40 PM ?? T: ? Report ID: [id number] ?? Reading Location: ??[id number] ? REPORT ELECTRONICALLY SIGNED IN OTHER VENDOR SYSTEM ?? Resulting Agency Comment E Procedure Note Avinash Zendejas MD - 01/02/2019 Patient Name: GUILLETIARRACT Fraire Dr: Ozzie Arrington DO, D.O.B: 1970 Exam Date: 01/02/192124 Age: 48 Sex: Female MR#: [id number] Loc: RADIOLOGY REPORT Order #[id number] CT Scan CT Abd/Pelvis W IV Contrast [...] Avinash Zendejas M.D. RW T: Report ID: [id number] Reading Location: [place] [address] REPORT ELECTRONICALLY SIGNED IN OTHER VENDOR SYSTEM Ozzie Arrington DO IMG CT PROCEDURES Final Result * (ABNORMAL) B-type natriuretic peptide (01/02/2019 4:32 PM CDT) Pathologist [facility] B-Natriuretic Peptide 419(H) 0 - 100 pg/mL [facility] Comment: B Natriutetic Peptide METHOD: ??Siemens Memoiraur XP using ADONAY. Decision threshold of 100 [...] Unknown LAB BLOOD ORDERABLES Final Res ult [place] [id number] [place] [address], [facility] [phone] * TNI with LIPID PANEL (01/02/2019 4:32 PM CDT) [facility] Troponin I <0.300 0.000 - 0.300 ng/mL [facility] Comment: Reference using CLOVER Chemiluminescence ? Negative: Repeat in 4-6 hours as indicated. Triglycerides 79 0 - 149 mg/dL [facility] Comment: National Lipid Association/NCEP Guidelines: ?? Normal ?< 150 mg/dL ?? Borderline high ?? 150-199 mg/dL ?? High ?200-499 mg/dL ?? Very High ? >=500 mg/dL Cholesterol 130 0 - 199 mg/dL [facility] Comment: National Lipid Association/NCEP Guidelines: Desirable ? < 200 mg/dL Borderline high: ??200-239 mg/dL High Risk: ?>=240 mg/dL HDL Cholesterol 65 mg/dL DIGNANasrin [facility] Comment: Reference Ranges: ? Males: >=40 mg/dL ? Females: >=50 mg/dL LDL Cholesterol, Calc 49 0 - 129 mg/dL [facility] Comment: National Lipid Association/NCEP Guidelines: ??Optimal ? < 100 mg/dL ??Near Optimal ?100-129 mg/dL ??Borderline high 130-159 mg/dL ??High ?>=160 mg/dL Cholesterol/HDL Ratio 2.[address] [facility] Comment: Optimal ??< 3.5:1 High ? > 5:1 01/02/2019 4:32 PM CDT 01/02/2019 4:36 PM CDT Narrative Resulting Agency Comment ER us Notinfile Unknown LAB BLOOD ORDERABLES Final Res ult [facility] [address] [place] [address], [facility] [phone] * Comprehensive metabolic panel (01/02/2019 4:32 PM CDT) Sodium 140 135 - 145 mmol/L [facility] Potassium 3.4 3.3 - 5.1 mmol/L [facility] Chloride 107 96 - 108 mmol/L [facility] Carbon Dioxide 23 22 - 32 mmol/L [facility] Anion Gap 10 7 - [address] [facility] Glucose 95 70 - 100 mg/dL [facility] BUN 13 8 - 25 mg/dL [facility] [...] on dialysis Est GFR (Cockcroft-G) 131 ml/MIN [facility] Comment: Estimated GFR(Cockroft-Gault)is used to calculate patient medication dosage Calcium 9.2 8.6 - 10.3 mg/dL [facility] Total Protein 6.8 6.4 - 8.3 g/dL [facility] Albumin 3.5 3.5 - 5.0 g/dL [facility] Globulin 3.3 2.3 - 3.5 gm/dL [facility] Albumin/Globulin Ratio 1.1 1.1 - 1.[address] [facility] Total Bilirubin 0.6 0.0 - 1.2 mg/dL [facility] AST 25 0 - 32 U/L [facility] ALT 10 0 - 33 U/L [facility] Alkaline Phosphatase 75 35 - 104 U/L [facility] 01/02/2019 4:32 PM CDT 01/02/2019 4:36 PM CDT Narrative Resulting Agency Comment ER us Notinfile Unknown LAB BLOOD ORDERABLES Final Res ult [facility] [address] [place] [address], [facility] [phone] * (ABNORMAL) CBC with auto differential (01/02/2019 4:32 PM CDT) WBC 6.8 3.8 - 9.9 X10 3/ul [facility] RBC 3.57(L) 3.90 - 5.20 x10 6/ul [facility] Hemoglobin 7.2(L) 11.9 - 15.5 g/dL [facility] Hct 25.4(L) 35.6 - 45.5 % [facility] MCV 71.1(L) 81.3 - 96.[address] [facility] MCH 20.2(L) 27.1 - 33.[address] [facility] MCHC 28.3(L) 32.3 - 35.7 g/dl [facility] RDW 23.9(H) 11.1 - 14.9 % [facility] Plt Count 176 150 - 400 x10 3/ul [facility] MPV 9.4 9.1 - 12.[address] [facility] Neut % 73.3 % [facility] Immature Gran % 0.3 % [facility]IGNA [facility] [facility] Lymph % 15.2 % [facility] [place] % 7.4 % [facility] Eos % 3.5 % [facility] AUTO BASO % 0.3 % [facility] NEUTROPHIL ABS # 5.0 1.7 - 6.5 x10 3/ul [facility] Immature Gran # 0.0 0.0 - 0.1 x10 3/ul [facility] Absolute Lymphs (auto) 1.0 0.8 - 3.3 x10 3/ul [facility] Absolute Monos (auto) 0.5 0.2 - 0.8 x10 3/ul [facility] Absolute Neutrophils 5,000 200 - 8,000 /ul [facility] 01/02/2019 4:32 PM CDT 01/02/2019 4:36 PM CDT Narrative Resulting Agency Comment ER us Notinfile Unknown LAB BLOOD ORDERABLES Final Res ult Performing Organization Address City/[facility]/ZIP Co de Phone Number [address] [phone] * ECG 12 lead (01/02/2019 4:21 PM CDT) Ventricular Rate EKG/Min 81 BPM ER RADIOLOGY Atrial Rate 81 BPM ER RADIOLOGY TN-Interval (MSEC) 166 ms ER RADIOLOGY QRS-Interval (MSEC) 84 ms ER RADIOLOGY QT-Interval (MSEC) 404 ms ER RADIOLOGY QTc 469 ms ER RADIOLOGY P Solon 54 degrees ER RADIOLOGY R Solon -9 degrees ER RADIOLOGY T Solon 20 degrees ER RADIOLOGY Diagnosis Normal sinus rhythm Normal ECG When compared with ECG of 21-NOV-2018 21:54, No significant change was found ER RADIOLOGY 01/02/2019 4:21 PM CDT 01/02/2019 7:07 PM CDT Narrative Resulting Agency Comment SAURABH us Notinfile Unknown ECG ORDERABLES Final Result Performing Organization Address City/[facility]/ZIP Co de Phone Number ER RADIOLOGY * XR Chest 1 View (01/02/2019 12:00 AM CDT) Anatomical Region Laterality Modality Body, Chest N/A Radiographic Alexsandra ging 01/02/2019 5:07 PM CDT Narrative 01/02/2019 5:08 PM CDT Patient Name: TIARRA ADDISON ?Ordering Dr: PERSONAL PHYSICIAN,NO ?? D.O.B: 1970 ? Exam Date: 01/02/19 ?? 0000 ?? Age: 48 ?Sex: Female ? MR#: [id number] ?? Loc: ? RADIOLOGY REPORT ?? Order #[id number] ?? Radiology ? Chest 1 View Portable [...] 5:08 PM ?? T: ? Report ID: [id number] ?? Reading Location: ??[id number] ? REPORT ELECTRONICALLY SIGNED IN OTHER VENDOR SYSTEM ?? Resulting Agency Comment P Procedure Note Jesse Kearney MD - 01/02/2019 Patient Name: TIARRA ADDISON Juno Dr: PERSONAL PHYSICIAN,NO D.O.B: 1970 Exam Date: 01/02/19 0000 Age: 48 Sex: Female MR#: [id number] Loc: RADIOLOGY REPORT Order #[id number] Radiology Chest 1 View Portable Signed EXAM [...] Jesse Kearney M.D., MD T: Report ID: [id number] Reading Location: [place] [address] REPORT ELECTRONICALLY SIGNED IN OTHER VENDOR SYSTEM us Notinfile Unknown IMG XR PROCEDURES Final Result documented in this encounter Visit Diagnoses Not on filedocumented in this encounter Care Teams Golf Sales Manager Relationship Specialty Start Date End Date Gerard Sutton MD PCP - General 11/21/18 03/27/20 Unknown, Notinfile 02/18/18 03/27/20 documented as of this encounter
--- OUTSIDE RECORDS SUMMARY | 2024-03-24 19:46 | XMS_ITS | Encounter Summary ---
Author Organization [facility] Healthcare Address [address] [place] [address] Care Team Providers Care Card Writer Hand Name Role Phone Unknown, Notinfile Unavailable Unavailable Jc Leon MD Primary Care Provider [phone] Encounter Details Date Type Department Care Team (Late st Contact Info) Description 10/25/2018 6:56 PM CDT - 10/25/2018 11:02 PM CDT Hospital Encounter [facility] Emergency Department [address] [place] [address] Unknown, Notinfile Ozzie Arrington DO [address] [place] [address] Discharge Disposition: Discharge to home or self [...] ?? Age: 47 ?Sex: Female ? MR#: [id number] ?? Loc: ? RADIOLOGY REPORT ?? Order #[id number] ?? CT Scan ? CTA Chest W [...] T: ??10/25/2018 10:10 PM ? Report ID: [id number] ?? Reading Location: ??[id number] ? REPORT ELECTRONICALLY SIGNED IN OTHER VENDOR SYSTEM ?? Resulting Agency Comment P Procedure Note Joe Da Silva MD - 10/25/2018 Patient Name: FRANK HANCT Evans Dr: Ozzie Arrington DO DBeaO.B: 1970 Exam Date: 10/25/182037 Age: 47 Sex: Female MR#: [id number] Loc: RADIOLOGY REPORT Order #[id number] CT Scan CTA Chest W IV Contrast [...] Da Silva M.D. AR: SAMUEL Report ID: [id number] Reading Location: [place] [address] REPORT ELECTRONICALLY SIGNED IN OTHER VENDOR SYSTEM [...] ?? Age: 47 ?Sex: Female ? MR#: [id number] ?? Loc: ? RADIOLOGY REPORT ?? Order #[id number] ?? Radiology ? Chest 1 View Portable [...] T: ??10/25/2018 8:46 PM ? Report ID: [id number] ?? Reading Location: ??[id number] ? REPORT ELECTRONICALLY SIGNED IN OTHER VENDOR SYSTEM ?? Resulting Agency Comment P Procedure Note Amarjit Alexander MD - 10/25/2018 Patient Name: TIARRA HAN [address] Dr: Ozzie Arrington DO, D.O.B: 1970 Exam Date: 10/25/182019 Age: 47 Sex: Female MR#: [id number] Loc: RADIOLOGY REPORT Order #[id number] Radiology Chest 1 View Portable Signed EXAM [...] Amarjit Alexander M.D. SERA: SERA Report ID: [id number] Reading Location: [place] [address] REPORT ELECTRONICALLY SIGNED IN OTHER VENDOR SYSTEM us Ozzie Arrington DO IMG XR PROCEDURES Final Result * TNI with LIPID PANEL (10/25/2018 8:04 PM CDT) Troponin I <0.300 0.000 - 0.300 ng/mL [facility] Comment: Reference using CLOVER Chemiluminescence ? Negative: Repeat in 4-6 hours as indicated. Triglycerides 108 0 - 149 mg/dL [facility] Comment: National Lipid Association/NCEP Guidelines: ?? Normal ?< 150 mg/dL ?? Borderline high ?? 150-199 mg/dL ?? High ?200-499 mg/dL ?? Very High ? >=500 mg/dL Cholesterol 135 0 - 199 mg/dL [facility] Comment: National Lipid Association/NCEP Guidelines: Desirable ? < 200 mg/dL Borderline high: ??200-239 mg/dL High Risk: ?>=240 mg/dL HDL Cholesterol 47 mg/dL [facility] Comment: Reference Ranges: ? Males: >=40 mg/dL ? Females: >=50 mg/dL LDL Cholesterol, Calc 66 0 - 129 mg/dL [facility] Comment: National Lipid Association/NCEP Guidelines: ??Optimal ? < 100 mg/dL ??Near Optimal ?100-129 mg/dL ??Borderline high 130-159 mg/dL ??High ?>=160 mg/dL Cholesterol/HDL Ratio 2.[address] [facility] Comment: Optimal ??< 3.5:1 High ? > 5:1 10/25/2018 8:04 PM CDT 10/25/2018 8:09 PM CDT Narrative Resulting Agency Comment ER us Ozzie Arrington DO LAB BLOOD ORDERABLES Final Res ult [facility] [address] [place] [address], [facility] [phone] * (ABNORMAL) Comprehensive metabolic panel (10/25/2018 8:04 PM CDT) Sodium 140 135 - 145 mmol/L [facility] Potassium 3.6 3.3 - 5.1 mmol/L [facility] Chloride 103 96 - 108 mmol/L [facility] Carbon Dioxide 23 22 - 32 mmol/L [facility] Anion Gap 14 7 - 16 [facility] Glucose 95 70 - 100 mg/dL [facility] BUN 9 8 - 25 mg/dL [facility] Creatinine 0.6 0.5 - 1.1 mg/dL [facility] Comment: NOTE: Estimated GFR (Cockroft-Gault) will NOT be calculated unless patient Height and Weight were entered. Also, Kidney Disease Stage (GFR) and Estimated GFR (Cockroft-Gault) will NOT be calculated if Creatinine result is <0.2. Kidney Disease Stage >90 mL/MIN [facility] Comment: NOTE; ??The GFR is [...] on dialysis Est GFR (Cockcroft-G) 170 ml/MIN [facility] Comment: Estimated GFR(Cockroft-Gault)is used to calculate patient medication dosage Calcium 9.5 8.6 - 10.3 mg/dL [facility] Total Protein 8.1 6.4 - 8.3 g/dL [facility] Albumin 4.1 3.5 - 5.0 g/dL [facility] Globulin 4.0(H) 2.3 - 3.5 gm/dL [facility] Albumin/Globulin Ratio 1.0(L) 1.1 - 1.[address] [facility] Total Bilirubin 0.3 0.0 - 1.2 mg/dL [facility] AST 17 0 - 32 U/L [facility] ALT 8 0 - 33 U/L [facility] Alkaline Phosphatase 79 35 - 104 U/L [facility] 10/25/2018 8:04 PM CDT 10/25/2018 8:09 PM CDT Narrative Resulting Agency Comment ER Ozzie Arrington DO LAB BLOOD ORDERABLES Final Res ult Performing Organization Address [facility] de Phone Number [address] [phone] * (ABNORMAL) D-dimer, quantitative (10/25/2018 8:04 PM CDT) D-Dimer, Quantitative 1.05(H) 0.00 - 0.50 FEUug/ml [facility] Comment: Studies indicate that a D-Dimer level [...] ORDERABLES Final Res ult Performing Organization Address [facility] de Phone Number [address] [phone] * aPTT (10/25/2018 8:04 PM CDT) APTT 29 27 - [address] [facility] Comment: New reference ranges in use 10-03-18. 10/25/2018 8:04 PM CDT 10/25/2018 8:09 PM CDT Narrative Resulting Agency Comment ER Ozzie Arrington DO LAB BLOOD ORDERABLES Final Res ult Performing Organization Address [facility] de Phone Number [address] [phone] * Protime-INR (10/25/2018 8:04 PM CDT) Pathologist [facility] PT 13.9 12.2 - 14.[address] [facility] Comment: New reference ranges in use 10-03-18. INR 1.04 [facility] Comment: Recommended Therapeutic range for Oral Anticoagulant [...] ORDERABLES Final Res ult Performing Organization Address [facility] de Phone Number [address] [phone] * (ABNORMAL) CBC with auto differential (10/25/2018 8:04 PM CDT) Pathologist [facility] WBC 7.2 3.8 - 9.9 X10 3/ul [facility] RBC 3.91 3.90 - 5.20 x10 6/ul [facility] Hemoglobin 7.6(L) 11.9 - 15.5 g/dL [facility] Hct 28.2(L) 35.6 - 45.5 % [facility] MCV 72.1(L) 81.3 - 96.[address] [facility] MCH 19.4(L) 27.1 - 33.[address] [facility] MCHC 27.0(L) 32.3 - 35.7 g/dl [facility] RDW 21.1(H) 11.1 - 14.9 % [facility] Plt Count 289 150 - 400 x10 3/ul [facility] MPV 9.7 9.1 - 12.3 fl [facility] Loxo Oncology [facility] Neut % 69.3 % [facility] Personal Cell Sciences [facility] Immature Gran % 0.3 % DIGNA RIAL [facility] Lymph % 17.7 % [facility] [employer]ant[employer] Dolores % 8.0 % [facility] CytRx Eos % 4.3 % [facility] Personal Cell Sciences [facility] AUTO BASO % 0.4 % [facility] NEUTROPHIL ABS # 5.0 1.7 - 6.5 x10 3/ul [facility] Immature Gran # 0.0 0.0 - 0.1 x10 3/ul [facility] Absolute Lymphs (auto) 1.3 0.8 - 3.3 x10 3/ul [facility] Absolute Monos (auto) 0.6 0.2 - 0.8 x10 3/ul [facility] Absolute Eos (auto) 0.3 0.0 - 0.5 x10 3/ul [facility] BASOPHIL ABS # 0.0 0.0 - 0.1 x10 3/ul [facility] Nucleat RBC Rel Count 0.0 #/100WBC [facility] NRBC abs 0.00 0.00 - 0.01 x10 3/ul [facility] Absolute Neutrophils 5,000 200 - 8,000 /ul [facility] 10/25/2018 8:04 PM CDT 10/25/2018 8:09 PM CDT Narrative Resulting Agency Comment ER us Ozzie Arrington DO LAB BLOOD ORDERABLES Final Res ult [facility] [address] [place] [address] * ECG 12 lead (10/25/2018 7:01 PM CDT) Ventricular Rate EKG/Min 75 BPM [facility] Atrial Rate 75 BPM [facility] MT-Interval (MSEC) 164 ms [facility] QRS-Interval (MSEC) 80 ms [facility] QT-Interval (MSEC) 432 ms [facility] QTc 482 ms [facility] P Termo 18 degrees [facility] R Termo -7 degrees [facility] T Termo -6 degrees [facility] Diagnosis Normal sinus rhythm Moderate voltage criteria for LVH, may be normal variant . T-wave changes When compared with ECG of 20-JUL-2018 10:09, No significant change was found [facility] 10/25/2018 7:01 PM CDT 10/26/2018 11:42 AM CDT Narrative Resulting Agency Comment SAURABH us Ozzie Arrington DO ECG ORDERABLES Final Result [facility] documented in this encounter Visit Diagnoses Not on filedocumented in this encounter Care Teams Card Writer Hand Relationship Specialty Start Date End Date Jc Leon MD [address] [facility] [address] [place] [address] PCP - General 10/25/18 11/20/18 Unknown, Notinfile 02/18/18 03/27/20 documented as of this encounter
--- OUTSIDE RECORDS SUMMARY | 2024-03-24 19:46 | XMS_ITS | Encounter Summary ---
Author Organization [facility] Healthcare Address [address] [place] [address] Care Team Providers Care Diesel Electrician Name Role Phone Unknown, Notinfile Primary Care Provider Unavail able Unknown, Notinfile Unavailable Unavailable Encounter Details Date Type Department Care Team (Latest Contact Info) Description 04/16/2018 3:38 AM [facility] - 04/16/2018 5:41 AM [facility] Hospital Encounter [facility] Jem Yun, DO [address] [place] [address] Chest pain; Shortness of breath; Cough; Essential (primary) hypertension; Personal history of pulmonary embolism; correction current use of anticoagulant; Family history of [...] Comments Blood Pressure 120/76 04/16/2018 3:39 AM [facility] Pulse 80 04/16/2018 3:39 AM [facility] Temperature 36.8 ??C (98.2 ??F) 04/16/2018 3:39 AM CS T Respiratory Rate - - Oxygen Saturation 95% 04/16/2018 3:39 AM [facility] Inhaled Oxygen Concentration - - Weight 160 kg (352 lb 11.8 oz) 04/16/2018 3:39 A M [facility] Height 170.2 cm (5' 7 ) 04/16/2018 3:39 AM [facility] Body Mass Index 55.25 04/16/2018 3:39 AM [facility] documented in this encounter Medications at Time [...] WITH LIPID PANEL Routine 04/16/2018 3:50 AM [facility] CBC WITH AUTO DIFFERENTIAL Routine 04/16/2018 3:50 AM [facility] CRP (ACUTE PHASE) Routine 04/16/2018 3:5 0 AM [facility] B-TYPE NATRIURETIC PEPTIDE Routine 04/16/2018 3:50 AM [facility] MAGNESIUM Routine 04/16/2018 3:50 AM [facility] LIPASE Routine 04/16/2018 3:50 AM [facility] CREATINE KINASE (CK), TOTAL Routine 04/16/2018 3:50 AM [facility] COMPREHENSIVE METABOLIC PANEL Routine 04/16/2018 3:50 AM [facility] XR CHEST 1 VIEW Routine 04/16/2018 12:00 AM [facility] documented in this encounter Results * TNI with LIPID PANEL (04/16/2018 3:50 AM [facility]) Troponin I < 0.300 0.000 - 0.300 [...] HDL Cholesterol 59 mg/dL 9 4:26 AM [facility] HISTORICAL RESULTS Comment: Reference Ranges: ? Males: >=40 mg/dL ? Females: >=50 mg/dL LDL Cholesterol, Calc 50 0 - 129 mg/dL Comment: National Lipid Association/NCEP Guidelines: ??Optimal ? < 100 mg/dL ??Near Optimal ?100-129 mg/dL ??Borderline high 130-159 mg/dL ??High ?>=160 mg/dL Cholesterol/HDL Ratio 2.2 Comment: Optimal ??< 3.5:1 High ? > 5:1 04/16/2018 3:50 AM [facility] 04/16/2018 3:57 AM [facility] us Jem Yun DO LAB BLOOD ORDERABLES Final Result [facility] HISTORICAL RESULTS * Magnesium (04/16/2018 3:50 AM [facility]) Magnesium 2.0 1.6 - 2.6 mg/dL Comment:Magnesium sulfate th erapy: 3.0-9.1 mg/dL 04/16/2018 3:50 AM [facility] 04/16/2018 3:57 AM [facility]LO[facility] ORDERABLES Final Result Performing Organization Address [facility] de Phone Number [facility] HISTORICAL RESULTS * Lipase (04/16/2018 3:50 AM [facility]) Pathologist [facility] Lipase 16 13 - 60 U/L 04/16/2018 3:50 AM [facility] 04/16/2018 3:57 AM [facility] Jem Yun LAB BLOOD ORDERABLES Final Result Performing Organization Address [facility] Phone Number [facility] HISTORICAL RESULTS * (ABNORMAL) CRP (acute phase) (04/16/2018 3:50 AM [facility]) Pathologist [facility] C-Reactive Protein 15.7(H) 0.0 - 4.9 mg/L 04/16/2018 3:50 AM [facility] 04/16/2018 3:57 AM [facility]em [facility] LAB BLOOD ORDERABLES Final Result Performing Organization Address [facility] de Phone Number [facility] HISTORICAL RESULTS * (ABNORMAL) Comprehensive metabolic panel (04/16/2018 3:50 AM [facility] [employer]) Pathologist [facility] Sodium 138 135 - 145 mmol/L Potassium 4.3 3.3 - 5.1 mmol/L Chloride 103 96 - 108 mmol/L 04/16/2018 4:26 AM [employer] [facility] [employer] HISTORICAL RESULTS Carbon Dioxide 21(L) 22 - 32 mmol/L 04/16/2018 4:26 AM [employer] [facility] RES[facility] Anion Gap 14 7 - 16 04/16/2018 4:26 AM [employer] HISTORICAL RESULTS Glucose 76 70 - 100 mg/dL 04/16/2018 4:26 AM [employer] HISTORICAL RESULTS BUN 13 6 - 20 mg/dL 04/16/2018 4:26 AM [employer] [facility] HISTORICAL RESULTS Creatinine 0.9 0.5 - 1.1 mg/dL 04/16/2018 4:26 AM [employer] HISTORICAL RESULTS Comment: NOTE: Estimated GFR (Cockroft-Gault) will NOT be calculated unless patient Height and Weight were entered. Also, Kidney Disease Stage (GFR) and Estimated GFR (Cockroft-Gault) will NOT be calculated if Creatinine result is <0.2. Kidney Disease Stage 86 mL/MIN 04/16/2018 4:26 AM [employer] HISTORICAL RESULTS Comment: NOTE; ??The GFR is [...] GFR (Cockcroft-G) 122 ml/MIN 04/16/2018 4:26 AM [employer] HISTORICAL RESULTS Comment: Estimated GFR(Cockroft-Gault)is used to [...] 35 - 104 U/L 04/16/2018 3:50 AM [facility] 04/16/2018 3:57 AM [facility] Jem Yun DO LAB BLOOD ORDERABLES Final Result [facility] HISTORICAL RESULTS * (ABNORMAL) Creatine kinase (CK), total (04/16/2018 3:50 AM [facility]) Creatine Kinase 232(H) 20 - 180 U/L 04/16/2018 3:50 AM [facility] 04/16/2018 3:57 AM [facility] us Jem C. McClymont DO LAB BLOOD ORDERABLES Final Result Performing Organization Address [facility] de Phone Number [facility] HISTORICAL RESULTS * (ABNORMAL) B-type natriuretic peptide (04/16/2018 3:50 AM [facility]) [facility] B-Natriuretic Peptide 101(H) 0 - 100 pg/mL 04/16/2018 4:50 AM [facility] [employer] [facility] HISTORICAL RESULTS Comment: B Natriutetic Peptide METHOD: ??[employer] Cotyaur XP using ADONAY. Decision threshold of 100 [...] or infusion of nesiritide. 04/16/2018 3:50 AM [facility] 04/16/2018 3:57 AM [facility] Jem Yun DO LAB BLOOD ORDERABLES Final Result Performing Organization Address [facility] de Phone Number [facility] [employer] [facility] HISTORICAL RESULTS * (ABNORMAL) CBC with auto differential (04/16/2018 3:50 AM [facility]) [facility] WBC 8.1 3.8 - 9.9 X10 3/ul 04/16/2018 4:00 AM [facility] [employer] HISTORICAL RESULTS RBC 3.67(L) 3.90 - 5.20 x10 6/ul 04/16/2018 4:00 AM [facility] Hemoglobin 7.7(L) 11.9 - 15.5 g/dL 04/16/2018 4:00 AM [facility] [employer] HISTORICAL RESULTS Hct 27.0(L) 35.6 - 45.5 % 04/16/2018 4:00 AM [facility] [employer] [facility] HISTORICAL RESULTS MCV 73.6(L) 81.3 - 96.4 fl 04/16/2018 4:00 AM [facility] H[facility] MCH 21.0(L) 27.1 - 33.3 pg 04/16/2018 4:00 AM [facility] HISTORICAL RESULTS MCHC 28.5(L) 32.3 - 35.7 g/dl RDW 17.4(H) 11.1 - 14.9 % Plt Count 236 150 - 400 x10 3/ul MPV 9.6 9.1 - 12.3 fl Neut % 72.7 % Immature Gran % 0.1 % 9 4:00 AM [facility] HISTORICAL RESULTS Lymph % 13.0 % Charles % 9.1 % Eos % 4.7 % [...] - 0.01 x10 3/ul 04/16/2018 4:00 AM [facility] HISTORICAL RESULTS Absolute Neutrophils 5900 200 - 8000 /ul 04/16/2018 4:00 AM [facility] [employer] [facility] HISTORICAL RESULTS 04/16/2018 3:50 AM [facility] 04/16/2018 3:57 AM [facility] Jem Yun DO LAB BLOOD ORDERABLES Final Result [facility] HISTORICAL RESULTS * XR Chest 1 View (04/16/2018 12:00 AM [facility]) Anatomical Region Laterality Modality Body, Chest N/A Radiographic Alexsandra ging 04/16/2018 Impressions 04/16/2018 4:03 AM [facility] ??Pulmonary vascular congestion with new atelectasis and/or infiltrate at the right lung base. THIS IS AN ELECTRONICALLY VERIFIED FINAL REPORT 04/16/2018 4:00 AM - Electronically signed by Moshe Stuart M.D., MA D: ??04/16/2018 4:00 AM T: Report ID: [id number] Reading Location: ??[id number] [EOD] Narrative 04/16/2018 4:03 AM [facility] EXAM DESCRIPTION: ??Chest 1 View Portable REASON [...] Moshe Stuart M.D., MA T: Report ID: [id number] Reading Location: [place] [address] [EOD] Jem Yun DO IMG XR PROCEDURES Final Res ult documented in this encounter Visit Diagnoses Diagnosis Chest pain Unspecified chest pain Shortness of breath Cough Essential (primary) hypertension Unspecified essential hypertension Personal history of pulmonary embolism correction current use of anticoagulant Family history of diabetes mellitus Family history of ischemic heart disease and other diseases of the circulatory system documented in this encounter Care Teams Diesel Electrician Relationship Specialty Start Date End Date Unknown, Notinfile PCP - General 02/18/18 10/24/18 Unknown, Notinfile 02/18/18 03/27/20 documented as of this encounter
--- OUTSIDE RECORDS SUMMARY | 2024-03-24 19:46 | XMS_ITS | Encounter Summary ---
Author Organization [facility] Healthcare Address [address] [place] [address] Care Team Providers Care Bank Secrecy Act Officer Name Role Phone Unknown, Notinfile Primary Care Provider Unavail able Unknown, Notinfile Unavailable Unavailable Reason for Visit * Reason Comments Chest Pain Shortness of Breath Encounter Details Date Type Department Care Team (Late st Contact Info) Description 03/26/2018 11:06 PM AIR EXPORT LOGISTICS MANAGER - 03/27/2018 4:53 AM AIR EXPORT LOGISTICS MANAGER Emergency [facility] Emergency Department [address] [place] [address] Natty Forte MD [address] [place] [address] Cough (Primary Dx) Discharge Disposition: Discharge to [...] Comments Blood Pressure 108/78 03/27/2018 3:50 AM AIR EXPORT LOGISTICS MANAGER Pulse 90 03/27/2018 3:50 AM AIR EXPORT LOGISTICS MANAGER Temperature 36.3 ??C (97.3 ??F) 03/26/2018 7:46 PM CS T Respiratory Rate 18 03/27/2018 3:50 AM AIR EXPORT LOGISTICS MANAGER Oxygen Saturation 95% 03/27/2018 3:50 AM AIR EXPORT LOGISTICS MANAGER Inhaled Oxygen Concentration - - Weight 136.1 kg (300 lb) 03/26/2018 7:49 PM AIR EXPORT LOGISTICS MANAGER Height 170.2 cm (5' 7 ) 03/26/2018 7:49 PM AIR EXPORT LOGISTICS MANAGER Body Mass Index 46.99 03/26/2018 7:49 PM AIR EXPORT LOGISTICS MANAGER documented in this encounter Discharge Instructions * Discharge Instructions* Bev Still MD - 03/27/2018 1:23 AM AIR EXPORT LOGISTICS MANAGER - you likely have inflammation in your [...] provided to set-up follow-up for your symptoms EXPORT LOGISTICS MANAGER * Attachments The following attachments cannot be sent through Care Everywhere. * Cold Symptoms (City Constable) (Guyanese) documented in this encounter Medications at Time [...] call from RN re: lymphedema clinics in [place]. SW met with pt at bedside. Pt stated that she resides mostly in [place], and was looking for a clinic closer [...] remain available as needed. Cyndie Beavers LMSW [phone] EXPORT LOGISTICS MANAGER * Cyndie Beavers MSW - 03/27/2018 1:34 AM CST 03/27/18 0134 Discharge Additional Assistance Financial assistance Other (comment) SW responding to a consult requesting longterm resources for pt. SW met with pt who stated pt is homeless. SW provided pt with a listing of local shelters, drop-in centers, and meal providers. SW reviewed the list with pt and explained the need to contact Housing Hotline for screening for local shelters. Pt voiced understanding that she would be responsible for finding a longterm to go to at time of discharge. No further assistance needed at this time. Cyndie CARLOS Beavers [phone]. EXPORT LOGISTICS MANAGER documented in this encounter ED Notes * Mi Russell RN - 03/27/2018 4:22 AM CST Patient provided written and verbal education regarding discharge instructions, diagnosis, home care, follow up, 3 new prescriptions, and when to seek medical attention. Pt has no questions or concerns. Pt ambulatory upon discharge. Mi Russell RN 03/27/18 0422 EXPORT LOGISTICS MANAGER * Natty Forte MD - 03/27/2018 12:12 AM CST HPI 47yoF PMH HTN, DVT on Xarelto, chronic lymphedema p/w chest pain. Patient reports chest pain initially started 3weeks prior with cough, resolved and then recurred today, 2hours prior to arrival. Describes as shooting pain that radiates into the L arm, caused by movement/coughing. Has had mildly worsening [id number] associated with rhinnorhea/congestion, SOB. Also reports worsening b/l LE swelling, R>L over the past week (always R>L). Reports symptoms are not consistent with prior cellulitis. Denies fevers/chills, nausea/vomiting/abdominal pain, weakness/numbness/tingling. Of note patient has been on unknown abx [id number] for UTI. Chief Complaint Patient presents with [...] in legs Nursing note and vitals reviewed. [facility] ED Course as of Mar 27 606 [...] workoffer resources. Natty Forte MD 03/27/18 0609 EXPORT LOGISTICS MANAGER * Lalo Rick RN - 03/26/2018 11:06 PM CST Bed: [id number] Expected date: Expected time: Means of arrival: Car Comments: Llao Rick RN 03/26/18 8120 EXPORT LOGISTICS MANAGER * Tg Croft RN - 03/26/2018 7:52 PM CST Pt presents with 1 day of generalized CP, states worse with movement. Pt with dry cough noted during exam, pt states cough x 3 weeks. Pt endorses 2 days of SOB, states worse with exertion. 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 Pt also complaining of RLE pain, states its lymphedema , pt able to ambulate in triage. EXPORT LOGISTICS MANAGER documented in this encounter Miscellaneous Notes * ED Procedure Note - Allison Olivier MD - 03/26/2018 8:03 PM AIR EXPORT LOGISTICS MANAGER Associated Order(s): ECG 12-LEAD Procedure ECG 12 [...] risk for acs Allison Olivier MD 03/26/182002 EXPORT LOGISTICS MANAGER documented in this encounter Plan of Treatment Not on file documented as of this encounter Procedures Procedure Name Priority Date/Time Associated Diagnosis Comments TROPONIN I STAT 03/27/2018 1:28 AM AIR EXPORT LOGISTICS MANAGER CBC WITHOUT DIFFERENTIAL STAT 03/27/2018 1:28 AM AIR EXPORT LOGISTICS MANAGER XR CHEST PA LATERAL 2 VIEWS ED 03/26/2018 8:18 PM AIR EXPORT LOGISTICS MANAGER DIFFERENTIAL AUTO STAT 03/26/2018 8:1 2 PM AIR EXPORT LOGISTICS MANAGER CBC WITH AUTO DIFFERENTIAL STAT 03/26/2018 8:12 PM AIR EXPORT LOGISTICS MANAGER TROPONIN I STAT 03/26/2018 8:12 PM AIR EXPORT LOGISTICS MANAGER BASIC METABOLIC PANEL STAT 03/26/2018 8:12 PM AIR EXPORT LOGISTICS MANAGER ECG 12-LEAD STAT 03/26/2018 8:03 PM AIR EXPORT LOGISTICS MANAGER documented in this encounter Results * (ABNORMAL) CBC without differential (03/27/2018 1:28 AM AIR EXPORT LOGISTICS MANAGER) WBC 6.8 3.8 - 9.9 K/cumm [facility] Hgb 8.0(L) 13.0 - 17.5 g/dL [facility] Hct 27.9(L) 38.9 - 50.3 % [facility] Plt 289 150 - 400 K/cumm [facility] MPV 9.7 9.1 - 12.3 fL [facility] RBC 3.74(L) 4.30 - 5.80 M/cumm [facility] MCV 74.6(L) 81.3 - 96.4 fL [facility] MCH 21.4(L) 27.1 - 33.3 pg [facility] MCHC 28.7(L) 32.3 - 35.7 g/dL [facility] RDW CV 19.2(H) 11.1 - 14.9 % [facility] RDW SD 51.5(H) 35.7 - 48.1 fL [facility] NRBC abs 0.00 0.00 - 0.01 K/cumm [facility] Blood specimen (specimen) 03/27/2018 1:28 AM AIR EXPORT LOGISTICS MANAGER 03/27/2018 1:34 AM AIR EXPORT LOGISTICS MANAGER Narrative [facility] - 03/27/2018 1:43 AM AIR EXPORT LOGISTICS MANAGER THE COLLECTION LOCATION IS [facility] ED1-17 Bev Still MD LAB BLOOD ORDERABLE S Final Result Performing Organization Address City/[facility]/ZIP Co de Phone Number [facility] [place] [address] * Troponin I (03/27/2018 1:28 AM AIR EXPORT LOGISTICS MANAGER) Pathologist [facility] Troponin I <0.03 0.00 - 0.03 ng/mL [facility] Comment: Interpretive Data: Normal plasma Troponin [...] for Troponin assay. References: 1. Clin Chem 2013;59:7223-8510 2. Journal of the [place] [employer] 2012;60:1581-98 Current Interpretive Data Last Revised Date: 2017. Blood specimen (specimen) 03/27/2018 1:28 AM AIR EXPORT LOGISTICS MANAGER 03/27/2018 1:34 AM AIR EXPORT LOGISTICS MANAGER Narrative [facility] - 03/27/2018 2:10 AM AIR EXPORT LOGISTICS MANAGER THE COLLECTION LOCATION IS [facility] ED1-17 Bev Still MD LAB BLOOD ORDERABLE S Final Result Performing Organization Address City/[facility]/ZIP Co de Phone Number [facility] [employer] [place] [employer] [address] * XR Chest Pa Lateral 2 Vw (03/26/2018 8:18 PM AIR EXPORT LOGISTICS MANAGER) Anatomical Region Laterality Modality Body, Chest N/A Computed Radiogr aphy 03/26/2018 8:33 PM AIR EXPORT LOGISTICS MANAGER Impressions 03/27/2018 11:17 AM AIR EXPORT LOGISTICS MANAGER Two-view chest examination is submitted without comparison. ??The lung volumes are small. ??Increased interstitial opacities are favored to represent expiratory radiograph. ??There is no focal pneumonic consolidation. ??There is no pulmonary edema or pleural effusion. ??There is no pneumothorax. ??Cardiac mediastinal silhouette is within normal limits. Dictated by: Steve Hoskins M.D. Electronically signed by: Seema Castillo M.D. Narrative 03/27/2018 11:17 AM AIR EXPORT LOGISTICS MANAGER EXAMINATION: 2 view chest radiograph History: Generalized [...] * (ABNORMAL) Differential, auto (03/26/2018 8:12 PM AIR EXPORT LOGISTICS MANAGER) Neutrophil abs 5.1 1.7 - 6.5 K/cumm [facility] Imm gran abs 0.0 0.0 - 0.1 K/cumm [facility] Lymphocyte abs 2.4 0.8 - 3.3 K/cumm [facility] Monocyte abs 0.9(H) 0.2 - 0.8 K/cumm [facility] Eosinophil abs 0.4 0.0 - 0.5 K/cumm [facility] Basophil abs 0.0 0.0 - 0.1 K/cumm [facility] Neutrophil pct 57.5 % [facility] Comment: Interpretive Data Percent cell count reference ranges are not reported, since discordance with absolute values may lead to misinterpretation of CBC data. Current Interpretive Data was last revised on 2017. Imm gran pct 0.3 % [facility] Comment: Interpretive Data Percent cell count reference ranges are not reported, since discordance with absolute values may lead to misinterpretation of CBC data. Current Interpretive Data was last revised on 2017. Lymphocyte pct 27.0 % [facility] Comment: Interpretive Data Percent cell count reference ranges are not reported, since discordance with absolute values may lead to misinterpretation of CBC data. Current Interpretive Data was last revised on 2017. Monocyte pct 10.0 % [facility] Comment: Interpretive Data Percent cell count reference ranges are not reported, since discordance with absolute values may lead to misinterpretation of CBC data. Current Interpretive Data was last revised on 2017. Eosinophil pct 4.7 % [facility] Comment: Interpretive Data Percent cell count reference ranges are not reported, since discordance with absolute values may lead to misinterpretation of CBC data. Current Interpretive Data was last revised on 2017. Basophil pct 0.5 % [facility] Comment: Interpretive Data Percent cell count reference ranges are not reported, since discordance with absolute values may lead to misinterpretation of CBC data. Current Interpretive Data was last revised on 2017. Blood specimen (specimen) 03/26/2018 8:12 PM AIR EXPORT LOGISTICS MANAGER 03/26/2018 8:20 PM AIR EXPORT LOGISTICS MANAGER Narrative [facility] - 03/26/2018 8:28 PM AIR EXPORT LOGISTICS MANAGER us Natty Forte MD LAB BLOOD ORDERABLES F inal Result [facility] Department [place] [address] * Troponin I (03/26/2018 8:12 PM AIR EXPORT LOGISTICS MANAGER) Troponin I <0.03 0.00 - 0.03 ng/mL [facility] Comment: Interpretive Data: Normal plasma Troponin [...] for Troponin assay. References: 1. Clin Chem 2013;59:1447-8571 2. Journal of the [place] [employer] 2012;60:1581-98 Current Interpretive Data Last Revised Date: 2017. Blood specimen (specimen) 03/26/2018 8:12 PM AIR EXPORT LOGISTICS MANAGER 03/26/2018 8:20 PM AIR EXPORT LOGISTICS MANAGER Narrative [facility] - 03/26/2018 8:51 PM AIR EXPORT LOGISTICS MANAGER THE COLLECTION LOCATION IS us Natty Forte MD LAB BLOOD ORDERABLES F inal Result [facility] Department [place] [address] * (ABNORMAL) CBC with auto differential (03/26/2018 8:12 PM AIR EXPORT LOGISTICS MANAGER) [facility] WBC 8.9 3.8 - 9.9 K/cumm [facility] Hgb 8.6(L) 11.9 - 15.5 g/dL [facility] Hct 29.5(L) 35.6 - 45.5 % [facility] Plt 326 150 - 400 K/cumm [facility] MPV 9.6 9.1 - 12.3 fL [facility] RBC 4.02 3.90 - 5.20 M/cumm [facility] MCV 73.4(L) 81.3 - 96.4 fL [facility] MCH 21.4(L) 27.1 - 33.3 pg [facility] MCHC 29.2(L) 32.3 - 35.7 g/dL [facility] RDW CV 19.2(H) 11.1 - 14.9 % [facility] RDW SD 50.4(H) 35.7 - 48.1 fL [facility] NRBC abs 0.00 0.00 - 0.01 K/cumm [facility] Blood specimen (specimen) (Blood, Venous) 03/26/2018 8:12 PM AIR EXPORT LOGISTICS MANAGER 03/26/2018 8:20 PM AIR EXPORT LOGISTICS MANAGER Narrative [facility] - 03/26/2018 8:28 PM AIR EXPORT LOGISTICS MANAGER THE COLLECTION LOCATION IS us Natty Forte MD LAB BLOOD ORDERABLES F inal Result [facility] Department [place] [address] * Basic metabolic panel (03/26/2018 8:12 PM AIR EXPORT LOGISTICS MANAGER) Sodium 142 135 - 145 mmol/L [facility] Potassium, pl 4.1 3.3 - 4.9 mmol/L [facility] Chloride 109 97 - 110 mmol/L [facility] CO2 24 22 - 32 mmol/L [facility] Anion gap 9 2 - 15 mmol/L [facility] BUN 8 8 - 25 mg/dL [facility] Creatinine 0.83 0.60 - 1.10 mg/dL [facility] Glucose 91 70 - 199 mg/dL [facility] Comment: Interpretive Data Fasting glucose >/= [...] 2017. Calcium 9.7 8.5 - 10.3 mg/dL [facility] Blood specimen (specimen) 03/26/2018 8:12 PM AIR EXPORT LOGISTICS MANAGER 03/26/2018 8:20 PM AIR EXPORT LOGISTICS MANAGER Narrative [facility] - 03/26/2018 8:48 PM AIR EXPORT LOGISTICS MANAGER [facility] LOCATION IS us Natty Forte MD LAB BLOOD ORDERABLES F inal Result [facility] Department [place] [address] * ECG 12-LEAD (03/26/2018 8:03 PM AIR EXPORT LOGISTICS MANAGER) Narrative [facility] - 03/26/2018 8:03 PM AIR EXPORT LOGISTICS MANAGER Allison Olivier MD ? 03/26/2018 ??8:03 PM [...] Natty Forte MD ECG ORDERABLES Final Result [facility] documented in this encounter Visit Diagnoses Diagnosis Cough- Primary documented in this encounter Administered Medications Inactive Administered Medications - up to 3 most recent administrations Medication Order MAR Action Action Date Dose Rate Site acetaminophen (TYLENOL) tablet 1,000 mg 1,000 mg, oral, Once, On Sat03/26/18 at 1955, For 1 dose, Indications: PainIndications:Pain Given 03/26/2018 7:58 PM AIR EXPORT LOGISTICS MANAGER 1,000 mg albuterol (PROVENTIL,VENTOLIN) 2.5 mg/0.5 mL nebulizer solution 5 mg 5 mg, nebulization, Once (incident response engineer), On Amber 03/27/18 at 0030, For 1 dose Given 03/27/2018 12:47 AM AIR EXPORT LOGISTICS MANAGER 5 mg benzonatate (TESSALON) capsule 100 mg 100 mg, oral, Once, On Amber 03/27/18 at 0031, For 1 dose, Do not crush, chew, cut, dissolve, open or otherwise manipulate tablet/capsule., Indications: CoughIndications:Cough Given 03/27/2018 1:17 AM AIR EXPORT LOGISTICS MANAGER 100 mg dextromethorphan-guaiFENesin (ROBITUSSIN-DM) 2-20 mg/mL syrup 10 mL 10 mL, oral, Once, On Amber 03/27/18 at 0031, For 1 dose Given 03/27/2018 1:17 AM AIR EXPORT LOGISTICS MANAGER 10 mL ibuprofen (ADVIL,MOTRIN) tablet 800 mg 800 mg, oral, Once, On Amber 03/27/18 at 0030, For 1 dose Given 03/27/2018 1:17 AM AIR EXPORT LOGISTICS MANAGER 800 mg oxyCODONE (ROXICODONE) tablet 5 mg 5 mg, oral, Once, On Amber 03/27/18 at 0030, For 1 dose, Indications: PainIndications:Pain Given 03/27/2018 1:17 AM AIR EXPORT LOGISTICS MANAGER 5 mg documented in this encounter Discontinued [...] Recently Administered Medications Times are shown in AIR EXPORT LOGISTICS MANAGER. Scheduled Medication Order 03/25/2018 03/26/2018 03/27/2018 acetaminophen (TYLENOL) tablet 1,000 mg (COMPLETED) 1,000 mg, oral, Once, On Sat03/26/18 at 1955, For 1 dose, Indications: Pain 1957 (Given - Provider: Tg Croft RN) albuterol (PROVENTIL,VENTOLIN) 2.5 mg/0.5 mL nebulizer solution 5 mg (COMPLETED) 5 mg, nebulization, Once (incident response engineer), On Amber 03/27/18 at 0030, For 1 [...] Indications: Pain 0117 (Given - Provid er: Lotus Walls, GEOVANY) documented in this encounter Orders Nursing Count Last Ordered Date First Orde red Date NURSING COMMUNICATION 2 03/26/2018 IV Count Last Ordered Date First Orde red Date SALINE LOCK IV 1 03/26/2018 ADT Patient Update Count Last Ordered Date Firs t Ordered Date PLACE IN ED OBSERVATION 1 03/27/2018 documented in this encounter Care Teams Bank Secrecy Act Officer Relationship Specialty Start Date End Date Unknown, Notinfile PCP - General 02/18/18 10/24/18 Unknown, Notinfile 02/18/18 03/27/20 documented as of this encounter
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
--- OUTSIDE RECORDS SUMMARY | 2024-03-24 19:46 | XMS_ITS | Encounter Summary ---
Author Organization [facility] Healthcare Address [address] [place] [address] Care Team Providers Care Home Theater Experience Expert Name Role Phone Unknown, Notinfile Primary Care Provider Unavail able Unknown, Notinfile Unavailable Unavailable Encounter Details Date Type Department Care Team (Latest Contact Info) Description 02/18/2018 3:38 PM FIRE LOOKOUT - 02/18/2018 3:59 PM [facility] Hospital Encounter [facility] Radiology [address] [place] [address] Francisco Ascencio MD [address] [place] [address] Discharge Disposition: Discharge to home or self [...] SPINE WO CONTRAST ED 02/18/2018 4:14 PM FIRE LOOKOUT documented in this encounter Results * CT Head and Cervical Spine WO Contrast (02/18/2018 4:14 PM FIRE LOOKOUT) Anatomical Region Laterality Modality Head and Neck N/A Computed Tomogra phy 02/18/2018 4:30 PM FIRE LOOKOUT Impressions 02/18/2018 5:35 PM FIRE LOOKOUT Normal noncontrast head CT. No evidence of acute fracture in the cervical spine. Dictated by: Dave Lucero M.D. Electronically signed by: Dave Lennon M.D. Narrative 02/18/2018 5:35 PM FIRE LOOKOUT EXAMINATION: Noncontrast head CT CT of the [...] on filedocumented in this encounter Care Teams Home Theater Experience Expert Relationship Specialty Start Date End Date Unknown, Notinfile PCP - General 02/18/18 10/24/18 Unknown, Notinfile 02/18/18 03/27/20 documented as of this encounter
--- OUTSIDE RECORDS SUMMARY | 2024-03-24 19:46 | XMS_ITS | Encounter Summary ---
Author Organization [facility] Healthcare Address [facility] [place] [address] Care Team Providers Care Stave Grader Name Role Phone Unknown, Notinfile Primary Care Provider Unavail able Unknown, Notinfile Unavailable Unavailable Reason for Visit * Reason Comments Chest Pain Shortness of Breath Encounter Details Date Type Department Care Team (Late st Contact Info) Description 04/22/2018 5:50 AM GLUE WHEEL OPERATOR - 04/22/2018 1:47 PM GLUE WHEEL OPERATOR Emergency [facility] Emergency Department [address] [place] [address] Rashad Hernandez MD PhD [address] [place] [address] Tex Guido MD [address] [place] [address] Chest pain, unspecified type (Primary Dx) Discharge [...] Comments Blood Pressure 125/82 04/22/2018 9:00 AM GLUE WHEEL OPERATOR Pulse 82 04/22/2018 9:00 AM GLUE WHEEL OPERATOR Temperature 36.7 ??C (98.1 ??F) 04/22/2018 3:01 AM CS T Respiratory Rate 18 04/22/2018 5:55 AM GLUE WHEEL OPERATOR Oxygen Saturation 100% 04/22/2018 9:00 AM GLUE WHEEL OPERATOR Inhaled Oxygen Concentration - - Weight 145.2 kg (320 lb) 04/22/2018 3:01 AM GLUE WHEEL OPERATOR Height 170.2 cm (5' 7 ) 04/22/2018 3:01 AM GLUE WHEEL OPERATOR Body Mass Index 50.12 04/22/2018 3:01 AM GLUE WHEEL OPERATOR documented in this encounter Discharge Instructions * Discharge Instructions* Fartun Marks NP - 04/22/2018 11:21 AM GLUE WHEEL OPERATOR As discussed, your cardiac work up here is unremarkable. Your chest wall pain is likely related to recent bronchitis and coughing. You will be provided with the contact information for the medicine clinic as a resource to establish a primary care physician. Take the prescribed 600 mg Ibuprofen up to 4 times daily for chest soreness. WHEEL OPERATOR * Attachments The following attachments cannot be sent through Care Everywhere. * Chest Pain, Noncardiac (Pashto) documented in this encounter Medications at Time [...] Comments: Rudy: Jayy Mcintyre RN 04/22/18 1052 WHEEL OPERATOR * Rashad Hernandez MD - 04/22/2018 7:01 [...] observation unit. Rashad Hernandez MD 04/22/18 0704 WHEEL OPERATOR * Greta Aragon MD - 04/22/2018 6:05 [...] not improving, and so she presented to [facility] ED. She reports that she also [...] Diagnosis Date Noted ??? alcohol use disorder ([facility]) 02/04/2018 ??? 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 Cognitive and behavioral changes 02/04/2018 ??? History of DVT (deep vein thrombosis) 02/04/2018 ??? Chronic acquired lymphedema 02/04/2018 ??? Hypertension 02/04/2018 ??? Anemia 02/04/2018 ??? Polysubstance abuse ([facility]) 02/04/2018 Past Medical History: Diagnosis Date ??? Cellulitis ??? DVT (deep venous thrombosis) ([facility]) ??? Hypertension ??? Lymph edema Past Surgical [...] Merged History Encounter Born and raised in [facility], no abuse during childhood, has masters [...] Rashad Hernandez MD at 04/22/2018 7:39 AM GLUE WHEEL OPERATOR WHEEL OPERATOR WHEEL OPERATOR Associated attestation - Rashad Hernandez MD PhD - 04/22/2018 7:39 AM GLUE WHEEL OPERATOR I have seen and examined the patient (22Apr2018). I reviewed the resident's note and agree with thefindings and plan of care as documented in the resident's note unless I have documented otherwise. * Vero Trujillo RN - 04/22/2018 5:50 AM CST Bed: ED2-23 Expected date: Expected time: Means of arrival: Ambulance Comments: Vero Trujillo RN 04/22/18 0550 WHEEL OPERATOR * Sascha Robles RN - 04/22/2018 3:05 AM CST Pt to ED w L sided throbbing CP that radiates to L arm w SOB while at the [facility]. Pt admitsto similar symptoms in the past that were anxiety related. Pt w hx of anxiety, HTN and DVT that sheis on xarelto for WHEEL OPERATOR * Sascha Robles RN - 04/22/2018 3:03 AM CST Pt to ED w L sided throbbing CP that radiates to L arm w SOB while at the [facility] tonight. Pt admitsto similar symptoms in the past that were anxiety related. Hx of HTN and anxiety WHEEL OPERATOR documented in this encounter Miscellaneous Notes * ED Observation Provider Note - Fartun Marks NP - 04/22/2018 11:22 AM GLUE WHEEL OPERATOR Patient does not meet observation criteria as she was transferred to obs while awaiting results of NM stress, results in chart as patient entered room. Patient does not meet criteria for obs admission. Spoke with attending and plan is to discharge patient with NSAIDS for pain/discomfort. Patient agreeable to plan. WHEEL OPERATOR * ED Re-evaluation Note - Tex Guido MD - 04/22/2018 7:04 AM GLUE WHEEL OPERATOR ED Re-evaluation From Dr Hernandez. 47 obese le dvt (rt) , xeralto, bilateral le lymphedema, htn. Out of meds. Cp at [facility] last night. + sob. Benign exam mild htn,. L;eft chest soreness, chronic lymphedema PLAN 1) trop x 1 2) if neg, Pain mibi 3) if neg, dc home Tex Guido MD 04/22/18 0705 WHEEL OPERATOR * ED Procedure Note - Cadence Turcios MD - 04/22/2018 3:13 AM GLUE WHEEL OPERATOR Associated Order(s): ECG 12-LEAD Procedure ECG 12 lead Date/Time: 04/22/2018 3:13 AM Performed by: CADENCE TURCIOS Authorized by: CADENCE TURICOS Rate: ECG rate: 75 ECG rate assessment: [...] the ED Cadence Turcios MD 04/22/18 0315 WHEEL OPERATOR documented in this encounter Plan of Treatment Not on file documented as of this encounter Procedures Procedure Name Priority Date/Time Associated Diagnosis Comments NM MPI SPECT (STRESS) SINGLE STUDY IP Routine 04/22/2018 10:46 AM GLUE WHEEL OPERATOR DIFFERENTIAL AUTO STAT 04/22/2018 7:1 5 AM GLUE WHEEL OPERATOR CBC WITH AUTO DIFFERENTIAL STAT 04/22/2018 7:15 AM GLUE WHEEL OPERATOR TROPONIN I STAT 04/22/2018 7:15 AM GLUE WHEEL OPERATOR BASIC METABOLIC PANEL STAT 04/22/2018 7:15 AM GLUE WHEEL OPERATOR XR CHEST PA LATERAL 2 VIEWS ED Urgent/IP Urgent 04/22/2018 7:10 AM GLUE WHEEL OPERATOR ECG 12-LEAD STAT 04/22/2018 3:13 AM GLUE WHEEL OPERATOR documented in this encounter Results * NM MPI SPECT (Rest or Stress or Pain) Single Study (04/22/2018 10:46 AM GLUE WHEEL OPERATOR) Anatomical Region Laterality Modality Body N/A Nuclear Medicine 04/22/2018 10:5 0 AM GLUE WHEEL OPERATOR Impressions 04/22/2018 12:06 PM GLUE WHEEL OPERATOR 1. ??Normal rest myocardial perfusion. 2. ??Normal left ventricular size and systolic function. Dr. David (s) ??also participated in the interpretation of this examination. Dictated by: Evelyn Corley M.D. Electronically signed by: Job Villa M.D. Narrative 04/22/2018 12:06 PM GLUE WHEEL OPERATOR EXAMINATION: ??MYOCARDIAL IMAGING (REST/SPECT-CT) ?? DATE OF [...] Electronically signed by: Job Villa M.D. [facility] Kwabena Guido MD IMG NM PROCEDURES Final Result * Differential, auto (04/22/2018 7:15 AM GLUE WHEEL OPERATOR) Neutrophil abs 5.0 1.7 - 6.5 K/cumm [facility] Imm gran abs 0.0 0.0 - 0.1 K/cumm [facility] Lymphocyte abs 1.6 0.8 - 3.3 K/cumm [facility] Monocyte abs 0.7 0.2 - 0.8 K/cumm [facility] Eosinophil abs 0.4 0.0 - 0.5 K/cumm [facility] Basophil abs 0.0 0.0 - 0.1 K/cumm [facility] Neutrophil pct 64.8 % [facility] Comment: Interpretive Data Percent cell count reference ranges are not reported, since discordance with absolute values may lead to misinterpretation of CBC data. Current Interpretive Data was last revised on 2017. Imm gran pct 0.3 % [facility] Comment: Interpretive Data Percent cell count reference ranges are not reported, since discordance with absolute values may lead to misinterpretation of CBC data. Current Interpretive Data was last revised on 2017. Lymphocyte pct 20.8 % [facility] Comment: Interpretive Data Percent cell count reference ranges are not reported, since discordance with absolute values may lead to misinterpretation of CBC data. Current Interpretive Data was last revised on 2017. Monocyte pct 8.7 % [facility] Comment: Interpretive Data Percent cell count reference ranges are not reported, since discordance with absolute values may lead to misinterpretation of CBC data. Current Interpretive Data was last revised on 2017. Eosinophil pct 5.1 % [facility] Comment: Interpretive Data Percent cell count reference ranges are not reported, since discordance with absolute values may lead to misinterpretation of CBC data. Current Interpretive Data was last revised on 2017. Basophil pct 0.3 % [facility] Comment: Interpretive Data Percent cell count reference ranges are not reported, since discordance with absolute values may lead to misinterpretation of CBC data. Current Interpretive Data was last revised on 2017. Blood specimen (specimen) 04/22/2018 7:15 AM GLUE WHEEL OPERATOR 04/22/2018 7:27 AM GLUE WHEEL OPERATOR Narrative [facility] - 04/22/2018 7:39 AM [facility] us Greta Aragon MD LAB BLOOD ORDERABLES Final R esult Performing Organization Address [facility]/ZIP Co de Phone Number [facility] Department [place] [address] * Troponin I (04/22/2018 7:15 AM GLUE WHEEL OPERATOR) Troponin I <0.03 0.00 - 0.03 ng/mL [facility] Comment: Interpretive Data: Normal plasma Troponin [...] for Troponin assay. References: 1. Clin Chem 2013;[id number]:[id number] 2. Journal of the [place] [employer] 2012;60:1581-98 Current Interpretive Data Last Revised Date: 2017. Blood specimen (specimen) 04/22/2018 7:15 AM GLUE WHEEL OPERATOR 04/22/2018 7:27 AM GLUE WHEEL OPERATOR Narrative [facility] - 04/22/2018 8:28 AM GLUE WHEEL OPERATOR THE [facility] COLLECTION LOCATION IS [facility] Greta Aragon MD LAB BLOOD ORDERABLES Final R esult Performing Organization Address City/[facility]/ZIP Co de Phone Number [facility] Department [place] [address] * Basic metabolic panel (04/22/2018 7:15 AM GLUE WHEEL OPERATOR) Sodium 139 135 - 145 mmol/L [facility] Potassium, pl 4.5 3.3 - 4.9 mmol/L [facility] Chloride 103 97 - 110 mmol/L [facility] CO2 26 22 - 32 mmol/L [facility] Anion gap 10 2 - 15 mmol/L [facility] BUN 15 8 - 25 mg/dL [facility] Creatinine 0.84 0.60 - 1.10 mg/dL [facility] Glucose 75 70 - 199 mg/dL [facility] Comment: Interpretive Data Fasting glucose >/= [...] 2017. Calcium 9.3 8.5 - 10.3 mg/dL [facility] Blood specimen (specimen) 04/22/2018 7:15 AM GLUE WHEEL OPERATOR 04/22/2018 7:27 AM GLUE WHEEL OPERATOR Narrative [facility] - 04/22/2018 8:06 AM GLUE WHEEL OPERATOR THE COLLECTION LOCATION IS [facility] ED2-23 us Greta Aragon MD LAB BLOOD ORDERABLES Final R esult [facility] Department [place] [address] * (ABNORMAL) CBC with auto differential (04/22/2018 7:15 AM GLUE WHEEL OPERATOR) Pathologist [facility] WBC 7.8 3.8 - 9.9 K/cumm [facility] Hgb 8.2(L) 11.9 - 15.5 g/dL [facility] Hct 28.9(L) 35.6 - 45.5 % [facility] Plt 297 150 - 400 K/cumm [facility] MPV 10.1 9.1 - 12.3 fL [facility] RBC 3.89(L) 3.90 - 5.20 M/cumm [facility] MCV 74.3(L) 81.3 - 96.4 fL [facility] MCH 21.1(L) 27.1 - 33.3 pg [facility] MCHC 28.4(L) 32.3 - 35.7 g/dL [facility] RDW CV 17.4(H) 11.1 - 14.9 % [facility] RDW SD 46.4 35.7 - 48.1 fL [facility] NRBC abs 0.00 0.00 - 0.01 K/cumm [facility] Blood specimen (specimen) 04/22/2018 7:15 AM GLUE WHEEL OPERATOR 04/22/2018 7:27 AM GLUE WHEEL OPERATOR Narrative [facility] - 04/22/2018 7:39 AM GLUE WHEEL OPERATOR THE COLLECTION LOCATION IS [facility] ED2-23 us Greta Aragon MD LAB BLOOD ORDERABLES Final R esult [facility] Department [place] [address] * XR Chest Pa Lateral 2 Vw (04/22/2018 7:10 AM GLUE WHEEL OPERATOR) Anatomical Region Laterality Modality Body, Chest N/A Computed Radiogr aphy 04/22/2018 7:24 AM GLUE WHEEL OPERATOR Impressions 04/22/2018 11:24 AM GLUE WHEEL OPERATOR Comparison made to prior study dated 03/26/2018. The lungs are clear. ??Specifically, there is no pneumonia, pulmonary edema, pleural effusion, or pneumothorax. ??The cardiomediastinal silhouette is normal. Dictated by: Olivier Andrade M.D. Electronically signed by: Beka Joe M.D. Narrative 04/22/2018 11:24 AM GLUE WHEEL OPERATOR EXAMINATION: 2 view chest radiograph HISTORY: 47-year-old [...] lt * ECG 12-LEAD (04/22/2018 3:13 AM GLUE WHEEL OPERATOR) Narrative [facility] - 04/22/2018 3:13 AM GLUE WHEEL OPERATOR Cadence Turcios MD ? 04/22/2018 ??3:15 AM [...] ORDERABLES Fin al Result Performing Organization Address City/State/[facility] [place] Phone Number [facility] documented in this encounter Visit Diagnoses Diagnosis Chest pain, unspecified type- Primary documented in this encounter Administered Medications Inactive Administered Medications - up to 3 most recent administrations Medication Order MAR Action Action Date Dose Rate Site acetaminophen (TYLENOL) tablet 1,000 mg 1,000 mg, oral, Once, On Sat04/22/18 at 1204, For 1 dose Given 04/22/2018 12:09 PM GLUE WHEEL OPERATOR 1,000 mg ketorolac (TORADOL) injection 30 mg 30 mg, intravenous, Once, On Sat04/22/18 at 0917, For 1 dose, For Adult IV push, administer over 15 seconds Given 04/22/2018 9:21 AM GLUE WHEEL OPERATOR 30 mg tc-99m tetrofosmin (MYOVIEW) injection 30 millicurie 30 millicurie, intravenous, Once in imaging, radiopharmaceutical, Starting on Sat04/22/18 at 0855, For 1 dose, Indications: Diagnostic RadiographyIndications:Rosina gnostic Radiography Given 04/22/2018 9:00 AM GLUE WHEEL OPERATOR 34.33 millicuries documented in this encounter Active and Recently Administered Medications Times are shown in GLUE WHEEL OPERATOR. Scheduled Medication Order 04/20/2018 04/21/2018 04/22/2018 acetaminophen [...] 04/22/2018 documented in this encounter Care Teams Stave Grader Relationship Specialty Start Date End Date Unknown, Notinfile PCP - General 02/18/18 10/24/18 Unknown, Notinfile 02/18/18 03/27/20 documented as of this encounter
--- OUTSIDE RECORDS SUMMARY | 2024-03-24 19:47 | XMS_ITS | Encounter Summary ---
Author Organization [facility] Healthcare Address [facility] [place] [address] Care Team Providers Care Medical Communication Specialist Name Role Phone Unavailable Primary Care Provider Unavailabl e Encounter Details Date Type Department Care Team (Latest Contact Info) Description 02/03/2018 10:55 PM CDT - 02/03/2018 11:59 PM CDT Hospital Encounter [facility] Radiology [address] [place] [address] Discharge Disposition: Discharge to home or self [...]
--- OUTSIDE RECORDS SUMMARY | 2024-03-24 19:47 | XMS_ITS | Encounter Summary ---
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, Kwabena Shahid, DO [address] [facility] [address] [place] [address] Palpitations; Chest pain; Acute kidney failure (CMS/HCC); Lymphedema, not elsewhere classified; Essential (primary) hypertension; Personal history of pulmonary embolism; Personal history of other venous thrombosis and embolism; residential current use of anticoagulant; Other long-term (current) drug therapy Social History Tobacco Use [...] CDT) Sodium 138 135 - 145 mmol/L 01/08/2018 6:52 AM CDT [facility] HISTORICAL RESULTS Potassium 4.9 3.3 - 5.1 mmol/L 01/08/2018 6:52 AM CDT [facility] HISTORICAL RESULTS Chloride 99 96 - 108 mmol/L Carbon [...] Calcium 8.7 8.6 - 10.0 mg/dL 01/08/2018 6:52 AM CDT [facility] HISTORICAL RESULTS 01/08/2018 6:11 AM CDT 01/08/2018 6:17 AM CDT Phil Moreno LAB BLOOD ORDERABLES Fi nal Result Performing Organization Address [facility] de Phone Number [facility] HISTORICAL RESULTS * Troponin I (01/08/2018 6:11 AM CDT) Troponin I < 0.300 0.000 - 0.300 ng/mL 01/08/2018 6:51 AM CDT [facility] HISTORICAL RESULTS Comment: Reference using [employer] Chemiluminescence ? Negative: Repeat in 4-6 hours as indicated. 01/08/2018 6:11 AM CDT 01/08/2018 6:17 AM CDT Phil Moreno LAB BLOOD ORDERABLES Fi nal Result Performing Organization Address [facility] de Phone Number [facility] HISTORICAL RESULTS * (ABNORMAL) D-dimer, quantitative (01/08/2018 3:22 AM CDT) D-Dimer, Quantitative 6.77(H) 0.00 - 0.50 FEUug/ml 01/08/2018 4:48 AM CDT [facility] HISTORICAL RESULTS Comment: Studies indicate that a D-Dimer level of <0.50 FEUug/ml has a >95% negative predictive value for DVT,DIC,PE and other embolus conditions. ??Levels >0.50 FEUug/ml may be present in a wide variety of conditions and should not be considered diagnostic of any disease state. 01/08/2018 3:22 AM CDT 01/08/2018 3:25 AM CDT Phil Moreno LAB BLOOD ORDERABLES Fi nal Result [facility] HISTORICAL RESULTS * TNI with LIPID PANEL (01/08/2018 3:22 AM CDT) Troponin I < 0.300 0.000 - 0.300 ng/mL 01/08/2018 3:45 AM [facility] [employer] [facility] HISTORICAL RESULTS Comment: Reference using [employer] Chemiluminescence ? Negative: Repeat in 4-6 hours as indicated. Triglycerides 111 0 - 149 mg/dL 01/08/2018 3:50 AM [facility] [employer] [facility] HISTORICAL RESULTS Comment: National Lipid Association/NCEP Guidelines: ?? Normal ?< 150 mg/dL ?? Borderline high ?? 150-199 mg/dL ?? High ?200-499 mg/dL ?? Very High ? >=500 mg/dL Cholesterol 163 0 - 199 mg/dL 01/08/2018 3:50 AM [facility] Comment: National Lipid Association/NCEP Guidelines: Desirable ? < 200 mg/dL Borderline high: ??200-239 mg/dL High Risk: ?>=240 mg/dL HDL Cholesterol 72 mg/dL 8 3:50 AM [facility] HISTORICAL RESULTS Comment: Reference Ranges: ? Males: >=40 mg/dL ? Females: >=50 mg/dL LDL Cholesterol, Calc 69 0 - 129 mg/dL 01/08/2018 3:50 AM [facility] [employer] [facility] HISTORICAL RESULTS Comment: National Lipid Association/NCEP Guidelines: ??Optimal ? < 100 mg/dL ??Near Optimal ?100-129 mg/dL ??Borderline high 130-159 mg/dL ??High ?>=160 mg/dL Cholesterol/HDL Ratio 2.3 01/08/2018 3:50 AM [facility] [employer] [facility] HISTORICAL RESULTS Comment: Optimal ??< 3.5:1 High ? > 5:1 01/08/2018 3:22 AM CDT 01/08/2018 3:25 AM CDT Phil Moreno LAB BLOOD ORDERABLES Fi nal Result Performing Organization Address [facility] de Phone Number [facility] HISTORICAL RESULTS * (ABNORMAL) Protime-INR (01/08/2018 3:22 AM CDT) PT 39.5(H) 11.8 - 14.5 SECONDS 01/08/2018 3:39 AM CDT [facility] HISTORICAL RESULTS INR 3.81 01/08/2018 3:39 AM CDT [facility] HISTORICAL RESULTS Comment: Recommended Therapeutic range for [...] ORDERABLES Fi nal Result Performing Organization Address [facility] de Phone Number [facility] HISTORICAL RESULTS * (ABNORMAL) aPTT (01/08/2018 3:22 AM CDT) APTT 59(H) 26 - 33 SECONDS 01/08/2018 3:40 AM CDT [facility] HISTORICAL RESULTS 01/08/2018 3:22 AM CDT 01/08/2018 3:25 AM CDT Phil Moreno LAB BLOOD ORDERABLES Fi nal Result Performing Organization Address [facility] Co de Phone Number [facility] HISTORICAL RESULTS * (ABNORMAL) Comprehensive metabolic panel (01/08/2018 3:22 AM CDT) [facility] Sodium 137 135 - 145 mmol/L Potassium [...] dosage Calcium 9.2 8.6 - 10.0 mg/dL 01/08/2018 3:50 AM T [facility] HISTORICAL RESULTS Total Protein 8.1 6.4 - 8.3 g/dL Albumin 4.0 3.5 - 5.2 g/dL Globulin 4.1(H) 2.3 - 3.5 gm/dL 01/08/2018 3:50 AM T [facility] HISTORICAL RESULTS Albumin/Globulin Ratio 1.0(L) 1.1 - 1.8 01/08/2018 3:50 AM T [facility] HISTORICAL RESULTS Total Bilirubin 0.6 0.0 - 1.2 mg/dL AST 40(H) 0 - 32 U/L ALT 15 0 - 33 U/L Alkaline Phosphatase 109(H) 35 - 104 U/L 01/08/2018 3:22 AM CDT 01/08/2018 3:25 AM CDT us Phil Moreno LAB BLOOD ORDERABLES Fi nal Result [facility] HISTORICAL RESULTS * (ABNORMAL) CBC with auto differential (01/08/2018 3:22 AM CDT) [facility] WBC 7.9 3.8 - 9.9 X10 3/ul RBC 4.23 3.90 - 5.20 x10 6/ul 01/08/2018 3:27 AM CDT [facility] HIST[facility] RESULTS Hemoglobin 9.1(L) 11.9 - 15.5 g/dL 01/08/2018 3:27 AM CDT [facility] HIST[facility] RESULTS Hct 31.8(L) 35.6 - 45.5 % MCV 75.2(L) 81.3 - 96.4 fl MCH 21.5(L) 27.1 - 33.3 pg 01/08/2018 3:27 AM CDT [facility] HISTORICAL RESULTS MCHC 28.6(L) 32.3 - 35.7 g/dl 01/08/2018 3:27 AM [facility] RES[facility] RDW 17.5(H) 11.1 - 14.9 % 01/08/2018 3:27 AM CDT [facility] Plt Count 295 150 - 400 x10 3/ul 01/08/2018 3:27 AM [facility] RES[facility] MPV 9.4 9.1 - 12.3 fl 01/08/2018 3:27 AM [facility]ULTS Neut % 63.8 % 01/08/2018 3:27 AM T [facility] Immature Gran % 0.1 % 8 3:27 AM CDT [facility]ULTS Lymph % 24.7 % 01/08/2018 3:27 AM CDT [facility] HISTOR[facility] RESULTS [place] % 7.6 % 01/08/2018 3:27 AM CDT [facility] Eos % 3.5 % 01/08/2018 3:27 AM CDT [facility]ULTS Baso % 0.3 % 01/08/2018 3:27 AM CDT [facility] RESULTS Absolute Neuts (auto) 5.1 1.7 - 6.5 x10 3/ul 01/08/2018 3:27 AM CDT [facility] Immature Gran # 0.0 0.0 - 0.1 x10 3/ul 01/08/2018 3:27 AM T [facility] HISTORICAL RESULTS Absolute Lymphs (auto) 2.0 0.8 - 3.3 x10 3/ul 01/08/2018 3:27 AM T [facility] HISTORICAL RESULTS Absolute Monos (auto) 0.6 0.2 - 0.8 x10 3/ul 01/08/2018 3:27 AM T [facility] HISTORICAL RESULTS Absolute Eos (auto) 0.3 0.0 - 0.5 x10 3/ul 01/08/2018 3:27 AM T [facility] HISTORICAL RESULTS Absolute Basos (auto) 0.0 0.0 - 0.1 x10 3/ul 01/08/2018 3:27 AM T [facility] HISTORICAL RESULTS Nucleat RBC Rel Count 0.0 #/100WBC 01/08/2018 3:27 AM T [facility] HISTORICAL RESULTS Absolute Nucleated RBC 0.00 0.00 - 0.01 x10 3/ul 01/08/2018 3:27 AM T [facility] HISTORICAL RESULTS Absolute Neutrophils 5100 200 - 8000 /ul 01/08/2018 3:27 AM T [facility] HISTORICAL RESULTS 01/08/2018 3:22 AM CDT 01/08/2018 3:25 AM CDT us Phil Moreno LAB BLOOD ORDERABLES Fi nal Result [facility] HISTORICAL RESULTS * CTA Chest W IV [...] Recent guidelines by the Fleischner Society (Radiology 932879,2017) divides patient into low vs. high risk [...] immunosuppression, or patients with known primary cancer. http://pubs.rsna.org/doi/pdf/10.1148/radiol.8105556956 THIS IS AN ELECTRONICALLY VERIFIED FINAL REPORT 01/08/2018 8:38 AM - Electronically signed by Kaiser Taylor M.D. AG: CHELSEA D: ??01/08/2018 8:38 AM T: ??01/08/2018 8:38 AM Report ID: [id number] Reading Location: ??[id number] [EOD] Narrative 01/08/2018 8:42 AM CDT EXAM [...] Recent guidelines by the Fleischner Society (Radiology 476541,2017)divides patient into low vs. high risk (for [...] immunosuppression, or patients with known primary cancer. http://pubs.rsna.org/doi/pdf/10.1148/radiol.0589590021 THIS IS AN ELECTRONICALLY VERIFIED FINAL REPORT 01/08/2018 8:38 AM - Electronically signed by Kaiser Taylor M.D. AG: CHELSEA Report ID: [id number] Reading Location: [place] [id number] [EOD] [facility] DO IMG CT PROCEDURES Nika l Result * XR Chest 1 View (01/08/2018 12:00 AM CDT) Anatomical Region Laterality Modality Body, Chest N/A Radiographic Alexsandra ging 01/08/2018 Impressions 01/08/2018 3:45 AM CDT ??No acute cardiopulmonary disease. THIS IS AN ELECTRONICALLY VERIFIED FINAL REPORT 01/08/2018 3:41 AM - Electronically signed by Moshe Matti Stuatr M.D. MA: LOREN D: ??01/08/2018 3:41 AM T: ??01/08/2018 3:41 AM Report ID: [id number] Reading Location: ??[id number] [EOD] Narrative 01/08/2018 3:45 AM CDT EXAM [...] Moshe Stuart M.D. 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
--- OUTSIDE RECORDS SUMMARY | 2024-03-24 19:47 | XMS_ITS | Encounter Summary ---
Author Organization [facility] Healthcare Address [address] [place] [address] Care Team Providers Care Building Supervisor Name Role Phone Unknown, Notinfile Primary Care Provider Unavail able Reason for Visit * Reason Comments Chest Pain Encounter Details Date Type Department Care Team (Late st Contact Info) Description 02/03/2018 7:50 PM CDT - 02/07/2018 4:38 PM CDT Hospital Encounter [facility] [address] [place] [address] Baljeet Torres MD [address] [place] [address] Hugh Louie MD [address] [facility] [address] [place] [address] Fátima Aldridge MD [address] [facility] [address] [place] [address] Garrett Lamb MD [address] [place] [address] Amphetamine abuse (CMS/HCC) (Primary Dx); Cannabis abuse; [...] Date: 02/03/2018 Discharge Date: 02/07/2018 Admission Location: [facility] Primary Discharge Diagnosis: Cognitive and behavioral changes Secondary Discharge Diagnosis: Cognitive and behavioral changes alcohol use disorder ([facility]) History of DVT (deep vein thrombosis) Chronic [...] person.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 Contact Information for Follow-ups [facility] Specialty: Behavioral Health [address] [id number] Next Steps: Follow up [facility] Specialty: Psychiatry [address] [place] [address] Next Steps: Follow up Notinfile Unknown Relationship: [...] in your area. Also, you can call [phone]-DOCS for more information on PCP's in your area. It is very important to follow up with a doctor after your hospitalization. * Attachments The following attachments cannot be sent through Care Everywhere. * Abuse of Alcohol (AfterCare(R) Instructions(ER/ED)) (Tajik) documented in this encounter Medications at Time [...] Age: 47 y.o. female Admit: 02/03/2018 Bed: [id number] Subjective Chief complaint: None Interval History: No [...] decline since 11/2017. 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 Disinhibition with worsening EtOH abuse, new PSA [...] system as she recently moved here from [place]. Pt reports missing 1 week of warfarin [...] Age: 47 y.o. female Admit: 02/03/2018 Bed: [id number] Subjective Chief complaint: None Interval History: Feeling [...] decline since 11/2017. 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 Disinhibition with worsening EtOH abuse, new PSA [...] system as she recently moved here from [place]. Pt reports missing 1 week of warfarin [...] breakfast. Declines OT evaluation, stating she has interactive multimedia designer help at home, no recent change in [...] Age: 47 y.o. female Admit: 02/03/2018 Bed: [id number] Subjective Chief complaint: Leg pain Interval History: No acute events overnight, though was requesting morphine and ambien from cross-covering physician. This morning mental status seems largely unchanged. Still trying to get records from prior PCP. Objective Medications: Scheduled: enoxaparin 0.75 mg/kg subcutaneous Q12H [facility] furosemide 40 mg oral Daily hydroCHLOROthiazide 12.5 mg oral Daily losartan 50 mg oral Daily naproxen 500 mg oral Once sodium chloride 0.9% 0.5-20 mL intra-catheter Q8H [facility] [START ON 02/07/2018] thiamine 250 mg [...] Extremity Bilateral Complete [facility] [facility] - Department of Vascular Surgery, Vascular Laboratory [address] [place] [address] Lower Extremity Venous Ultrasound Report Patient Name: [...] maneuvers. Indications: HX of DVT. Findings: Performing Campground Attendant: Evelyn Murdock RVT. Bilateral: Venous Doppler signals [...] Electronically Signed By: Jatin De Jesus MD [facility] 2018-02-04 20:48:13 CDT CC: CC: CT Head [...] decline since 11/2017. 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 Disinhibition with worsening EtOH abuse, new PSA [...] system as she recently moved here from [place]. Pt reports missing 1 week of warfarin [...] because she just recently moved to the [facility], and does not have a permanent residence [...] would likely need to follow up in OR because of her insurance. Kimmy Maki, PT, 02/05/18 * Nichole Taylor, RN - 02/05/2018 9:22 AM CDT 02/05/18 0921 Referral Data Referral Reason Discharge Planning Patient Information Primary Caregiver Self Support System Children;Family members Support system contact info (name, phone, availablity) arya Meeks [phone] Prior Level of Functioning Durable Medical Equipment None Living Arrangement Lives with someone ([facility]) Income Information Income Source Unemployed Potential Discharge Needs Discharge Potential Patient plans to return to son's home at discharge. Anticipated discharge level of care Return Home Dialysis No Communications Fiduciary Responsibility Patient/Designated decision maker was informed of [facility] fiduciary relationship as necessary Patient ID verified by name and date of . Admission source: non health care origin Insurance verified as: listed as self pay, patient states she has wilkins. Will send to [employer]. Previous functional status: Independent and able to [...] PCP. States she recently moved here from [place]. Currently living with her son and daughter [...] if I may be of any assistance. 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 Her warfarin script for 5mg had not been filled since April at [facility] andsinjune at [facility], INR currently 1.35 -Patient is unclear when [...] given unclear which one is her sons. [phone], . Unable to reach Patient gave friends phone number [phone] unable to reach Medical record relible but [...] Social History Narrative Born and raised in [facility], no abuse during childhood, [...] a lot about the hospitalsystem such as [employer] and can program it. 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 Patient also states she is suing [employer] for racism and city attorney told her she will get 10-20million dollars [...] minutes Fund of Knowledge: 3 large cities: [place], [place], [facility] of . LABORATORY/DIAGNOSTIC DATA REVIEW: [...] is concrete unable to abstractly interpret dont manager film a book by its cover , she also appears disinhibited for example stating the examiner was handsome, asking how much money hemade. Patient may also have some grandiose delusions stating she is suing [employer] for racism after an incident during her last hospitalization and states her city attorney said she may get 10-20million doll ars [...] last 10 years. She had been to [facility] and discharged last week, she states she [...] [facility] - monitor for alcohol withdrawal #marijuana use [...] been returned. Patient will discharge home via correctional case records supervisor assistance. * Michelle William RN - 02/05/2018 [...] as there is construction being down in [facility] back [place], pt informed the PCT [...] informed that she was being moved to [facility] and being placed on elopement, pt verbalized understanding. Pt moved to [facility] into room 4, report given to [...] for hospital admission. Anat Mccabe RN 02/04/18 0790 * Florence Zepeda MD - 02/04/2018 12:24 [...] Social History Narrative Born and raised in [place] [facility], no abuse during childhood, [...] system as she recently moved here from [place]. Pt reports missing 1 week of warfarin [...] decline since 11/2017. 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 Disinhibition with worsening EtOH abuse, new PSA [...] Age: 47 y.o. female Admit: 02/03/2018 Bed: [id number] Subjective Chief complaint: None Interval History: No acute events overnight. Transitioned to scheduled librium taper yesterday and is doing well. Does not have new PCP yet. No new complaints today. Objective Medications: Scheduled: chlordiazePOXIDE 25 mg oral Q6H enoxaparin 0.75 mg/kg subcutaneous Q12H [facility] escitalopram 20 mg oral Daily furosemide 40 mg oral Daily hydroCHLOROthiazide 12.5 mg oral Daily losartan 50 mg oral Daily naproxen 500 mg oral Once sodium chloride 0.9% 0.5-20 mL intra-catheter Q8H [facility] thiamine 250 mg intravenous Q24H [facility] warfarin 5 mg oral Daily-1800 Infusions: [...] system as she recently moved here from [place]. Pt reports missing 1 week of warfarin [...] decline since 11/2017. 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 Disinhibition with worsening EtOH abuse, new PSA [...] Age: 47 y.o. female Admit: 02/03/2018 Bed: [id number] Subjective Chief complaint: None Interval History: Feeling [...] Medications: Scheduled: enoxaparin 0.75 mg/kg subcutaneous Q12H [facility] escitalopram 20 mg oral Daily furosemide [...] Outcome: Progressing * Plan of Care - Bonita Linda RN - 02/06/2018 3:33 AM CDT [...] system as she recently moved here from [place]. Pt reports missing 1 week of warfarin [...] decline since 11/2017. 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 Disinhibition with worsening EtOH abuse, new PSA [...] Age: 47 y.o. female Admit: 02/03/2018 Bed: [id number] Subjective Chief complaint: Leg pain Interval History: No acute events overnight, though was requesting morphine and ambien from [facility]. This morning mental status seems largely [...] US Vein Duplex Lower Extremity Bilateral Complete [facility] - Department of Vascular Surgery, Vascular Laboratory [address] [place] [address] Lower Extremity Venous Ultrasound Report Patient Name: [...] maneuvers. Indications: HX of DVT. Findings: Performing Campground Attendant: Evelyn Murdock RVT. Bilateral: Venous Doppler signals [...] Electronically Signed By: Jatin De Jesus MD [facility] 2018-02-04 20:48:13 CDT CC: CC: CT Head [...] No acute intracranial abnormality. Dictated by: Ran Rnialdi Electronically signed by: Jonn Catalan M.D, PHD [...] high doses being prescribed by PCP in [place], heavy alcohol abuse (states at least 2 years). Son thinks symptoms started 1-2 months ago in [place], but she was having some behavioral abnormalities prior to that. Per ED staff, she has been removing clothes and wandering around back hallways of ED/up to the [employer], claiming she works at [employer]. Currently on elopement precautions and given dose [...] labs: HIV and Hepatitis panel SW for abmer Almonte reports last vicodin script has not [...] system as she recently moved here from [place] -Pt reports missing 1 week of warfarin after running out two weeks ago -Called [facility] and [facility]. Her warfarin script for 5mg had not been filled since April at [facility] andsince June at [facility], INR currently 1.35 -Patient is unclear when [...] AM. H/o EtOH withdrawal, but denies DT's. -[facility] protocol -Thiamine folate, MVI -SW consult for outpatient resources * Assessment & Plan Note - Rommel Angel MD - 02/04/2018 6:38 AM CDT Associated Problem(s): Cognitive and behavioral changes Progressive decline since 11/2017. 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 Patient may also have some grandiose delusions stating she is suing [employer] for racism after an incident during her last hospitalization and states her city attorney said she may get 10-20million doll ars [...] last 10 years. She had been to [facility] and discharged last week, she states she [...] and outpatient psychiatry [facility] * ED Procedure Note - Sonja Jesus [...] * (ABNORMAL) Protime-INR (02/06/2018 8:01 PM CDT) [facility] PT 14.1(H) 8.5 - 13.0 sec [facility] INR 1.31(H) 0.80 - 1.21 [facility] Comment: Interpretive Data Inpatient therapeutic ranges* Atrial fibrillation ?2.0-3.0 INR Venous thrombo-embolism ?2.0-3.0 INR Bioprosthetic heart valve ?* Mechanical heart valve, bileaflet or tilting disk,aortic position ? 2.0-3.0 INR All other,or bileaflet or tilting disk, in mitral position ? 2.5-3.5 INR *See the pharmacy resource directory (PHRED) for an updated copy of the Tool Book at [email or web address] Current Interpretive Data was last revised 2011. Blood specimen (specimen) 02/06/2018 8:01 PM CDT 02/06/2018 8:14 PM CDT Narrative [facility] - 02/06/2018 8:37 PM CDT Fátima Aldridge MD LAB BLOOD ORDERABL ES Final Result [facility] [place] [address] * (ABNORMAL) CBC without differential (02/06/2018 8:01 PM CDT) WBC 8.0 3.8 - 9.9 K/cumm [facility] Hgb 8.3(L) 11.9 - 15.5 g/dL [facility] Hct 29.0(L) 35.6 - 45.5 % [facility] Plt 299 150 - 400 K/cumm [facility] MPV 9.4 9.1 - 12.3 fL [facility] RBC 3.95 3.90 - 5.20 M/cumm [facility] MCV 73.4(L) 81.3 - 96.4 fL [facility] MCH 21.0(L) 27.1 - 33.3 pg [facility] MCHC 28.6(L) 32.3 - 35.7 g/dL [facility] RDW CV 19.3(H) 11.1 - 14.9 % [facility] RDW SD 50.2(H) 35.7 - 48.1 fL [facility] NRBC abs 0.00 0.00 - 0.01 K/cumm [facility] Blood specimen (specimen) 02/06/2018 8:01 PM CDT 02/06/2018 8:13 PM CDT Narrative [facility] - 02/06/2018 8:20 PM CDT while on enoxaparin. Rommel Angel III, MD LAB BLOOD ORDERABLES [facility] al Result Performing Organization Address [facility] de Phone Number [facility] [place] [address] * Creatinine (02/06/2018 8:01 PM CDT) Pathologist [facility] Creatinine 0.82 0.60 - 1.10 mg/dL [facility] Blood specimen (specimen) 02/06/2018 8:01 PM CDT 02/06/2018 8:13 PM CDT Narrative [facility] - 02/06/2018 8:37 PM CDT while on enoxaparin. Rommel Angel III, MD LAB BLOOD ORDERABLES Fin al Result Performing Organization Address [facility] de Phone Number [facility] [place] [address] * (ABNORMAL) Protime-INR (02/06/2018 12:23 AM CDT) Pathologist [facility] PT 14.1(H) 8.5 - 13.0 sec [facility] INR 1.31(H) 0.80 - 1.21 [facility] Comment: Interpretive Data Inpatient therapeutic ranges* Atrial fibrillation ?2.0-3.0 INR Venous thrombo-embolism ?2.0-3.0 INR Bioprosthetic heart valve ?* Mechanical heart valve, bileaflet or tilting disk,aortic position ? 2.0-3.0 INR All other,or bileaflet or tilting disk, in mitral position ? 2.5-3.5 INR *See the pharmacy resource directory (PHRED) for an updated copy of the Tool Book at [email or web address] Current Interpretive Data was last revised 2011. Blood specimen (specimen) 02/06/2018 12:23 AM CDT 02/06/2018 12:35 AM CDT Narrative [facility] - 02/06/2018 12:59 AM CDT us Fátima Aldridge MD LAB BLOOD ORDERABL ES Final Result [facility] Department [place] [address] * (ABNORMAL) CBC without differential (02/06/2018 12:23 AM CDT) WBC 8.0 3.8 - 9.9 K/cumm [facility] Hgb 9.0(L) 11.9 - 15.5 g/dL [facility] Hct 31.1(L) 35.6 - 45.5 % [facility] Plt 328 150 - 400 K/cumm [facility] MPV 9.5 9.1 - 12.3 fL [facility] RBC 4.26 3.90 - 5.20 M/cumm [facility] MCV 73.0(L) 81.3 - 96.4 fL [facility] MCH 21.1(L) 27.1 - 33.3 pg [facility] MCHC 28.9(L) 32.3 - 35.7 g/dL [facility] RDW CV 19.6(H) 11.1 - 14.9 % [facility] RDW SD 50.7(H) 35.7 - 48.1 fL [facility] NRBC abs 0.00 0.00 - 0.01 K/cumm [facility] Blood specimen (specimen) 02/06/2018 12:23 AM CDT 02/06/2018 12:47 AM CDT Narrative [facility] - 02/06/2018 12:55 AM CDT while on enoxaparin. Rommel Angel III, MD LAB BLOOD ORDERABLES Fin al Result Performing Organization Address [facility] de Phone Number [facility] [place] [address] * (ABNORMAL) Creatinine (02/06/2018 12:23 AM CDT) [facility] Creatinine 1.14(H) 0.60 - 1.10 mg/dL [facility] Blood specimen (specimen) 02/06/2018 12:23 AM CDT 02/06/2018 12:35 AM CDT Narrative [facility] - 02/06/2018 12:57 AM CDT while on enoxaparin. Rommel Angel III, MD LAB BLOOD ORDERABLES Fin al Result Performing Organization Address [facility] de Phone Number [facility] Department [place] [address] * (ABNORMAL) CBC without differential (02/05/2018 5:16 AM CDT) [facility] WBC 7.8 3.8 - 9.9 K/cumm [facility] Hgb 9.1(L) 11.9 - 15.5 g/dL [facility] Hct 30.8(L) 35.6 - 45.5 % [facility] Plt 308 150 - 400 K/cumm [facility] MPV 9.8 9.1 - 12.3 fL [facility] RBC 4.22 3.90 - 5.20 M/cumm [facility] MCV 73.0(L) 81.3 - 96.4 fL [facility] MCH 21.6(L) 27.1 - 33.3 pg [facility] MCHC 29.5(L) 32.3 - 35.7 g/dL [facility] RDW CV 19.3(H) 11.1 - 14.9 % [facility] RDW SD 50.0(H) 35.7 - 48.1 fL [facility] NRBC abs 0.00 0.00 - 0.01 K/cumm [facility] Blood specimen (specimen) 02/05/2018 5:16 AM CDT 02/05/2018 6:59 AM CDT Narrative [facility] - 02/05/2018 7:21 AM CDT while on enoxaparin. Fátima Aldridge MD LAB BLOOD ORDERABL ES Final Result Performing Organization Address City/[facility]/ZIP Co de Phone Number [facility] [place] [address] * Creatinine (02/05/2018 5:16 AM CDT) Creatinine 0.91 0.60 - 1.10 mg/dL [facility] Blood specimen (specimen) 02/05/2018 5:16 AM CDT 02/05/2018 6:59 AM CDT Narrative [facility] - 02/05/2018 7:57 AM CDT while on enoxaparin. Fátima Aldridge MD LAB BLOOD ORDERABL ES Final Result Performing Organization Address City/[facility] Co de Phone Number [facility] [place] [address] * (ABNORMAL) Protime-INR (02/04/2018 8:21 PM CDT) PT 14.1(H) 8.5 - 13.0 sec [facility] INR 1.31(H) 0.80 - 1.21 [facility] Comment: Interpretive Data Inpatient therapeutic ranges* Atrial fibrillation ?2.0-3.0 INR Venous thrombo-embolism ?2.0-3.0 INR Bioprosthetic heart valve ?* Mechanical heart valve, bileaflet or tilting disk,aortic position ? 2.0-3.0 INR All other,or bileaflet or tilting disk, in mitral position ? 2.5-3.5 INR *See the pharmacy resource directory (PHRED) for an updated copy of the Tool Book at [email or web address] Current Interpretive Data was last revised 2011. Blood specimen (specimen) 02/04/2018 8:21 PM CDT 02/04/2018 8:35 PM CDT Narrative [facility] - 02/04/2018 9:02 PM CDT Unless preformed in the last 48 hours. Draw prior to enoxaparin administration. Fátima Aldridge MD LAB BLOOD ORDERABL ES Final Result [facility] [place] [address] * aPTT (02/04/2018 8:21 PM CDT) aPTT 29.6 25.0 - 37.0 sec [facility] Comment: Interpretive Data Therapeutic heparin range:60.0 - 94.0 sec based on correlation with therapeutic heparin activity range of 0.3 -0.7 Units/mL. Current interpretive data was last revised on 2011. Blood specimen (specimen) 02/04/2018 8:21 PM CDT 02/04/2018 8:35 PM CDT Narrative [facility] - 02/04/2018 9:02 PM CDT Unless preformed in the last 48 hours. Draw prior to enoxaparin administration. Fátima Aldridge MD LAB BLOOD ORDERABL ES Final Result [facility] Department [place] [address] * (ABNORMAL) CBC without differential (02/04/2018 8:21 PM CDT) Pathologist [facility] WBC 7.8 3.8 - 9.9 K/cumm [facility] Hgb 8.9(L) 11.9 - 15.5 g/dL [facility] Hct 30.7(L) 35.6 - 45.5 % [facility] Plt 291 150 - 400 K/cumm [facility] MPV 9.6 9.1 - 12.3 fL [facility] RBC 4.16 3.90 - 5.20 M/cumm [facility] MCV 73.8(L) 81.3 - 96.4 fL [facility] MCH 21.4(L) 27.1 - 33.3 pg [facility] MCHC 29.0(L) 32.3 - 35.7 g/dL [facility] RDW CV 19.6(H) 11.1 - 14.9 % [facility] RDW SD 51.6(H) 35.7 - 48.1 fL [facility] NRBC abs 0.00 0.00 - 0.01 K/cumm [facility] Blood specimen (specimen) 02/04/2018 8:21 PM CDT 02/04/2018 8:35 PM CDT Narrative [facility] - 02/04/2018 8:52 PM CDT while on enoxaparin. THE COLLECTION LOCATION IS [facility] ED1-04 Rommel Angel III, MD LAB BLOOD ORDERABLES Fin al Result [facility] [place] [address] * Creatinine (02/04/2018 8:12 PM CDT) Pathologist [facility] Creatinine 0.87 0.60 - 1.10 mg/dL [facility] Blood specimen (specimen) 02/04/2018 8:12 PM CDT 02/04/2018 8:35 PM CDT Narrative [facility] - 02/04/2018 9:10 PM CDT Unless preformed in the last 48 hours. Draw prior to enoxaparin administration. us Fátima Aldridge MD LAB BLOOD ORDERABL ES Final Result [facility] [place] [address] * CT Head WO Contrast (02/04/2018 11:56 [...] AM CDT Narrative 02/04/2018 8:48 PM CDT [facility] - Department of Vascular Surgery, Vascular Laboratory [address] [place] [address] Lower Extremity Venous Ultrasound Report Patient Name: [...] maneuvers. Indications: HX of DVT. Findings: Performing Campground Attendant: Evelyn Murdock RVT. Bilateral: Venous Doppler signals [...] Electronically Signed By: Jatin De Jesus MD [facility] 2018-02-04 20:48:13 CDT CC: CC: Procedure Note Jatin De Jesus MD - 02/04/2018 [facility] - Department of Vascular Surgery,Vascular Laboratory [address] [place] [address] Lower Extremity Venous Ultrasound Report Patient Name: TIARRA ADDISONPatient ID: [id number] : 1970 (47y 1m)Study Date: 02/04/2018 7:50:01 AM Gender: FAccession #: [id number] Tech: TMLocation: [id number] Ref.Provider: Adry ALDRIDGEality: Adequate Order Provider: Farhan ZEPEDA #: [id number] Procedures: Vascular Report: Venous Duplex imaging was performed bilaterally in the lower extremities.The common femoral, femoral, popliteal, posterior tibial, peroneal veins wereevaluated for patency, spontaneity and phasicity with Doppler, compression and augmentationmaneuvers. Great saphenous vein proximal at the junction was evaluated with compressionmaneuvers. Indications: HX of DVT. Findings: Performing Campground Attendant: Evelyn Murdock RVT. Bilateral: Venous Doppler signals [...] Electronically Signed By: Jatin De Jesus MD [facility] 2018-02-04 20:48:13 CDT CC: CC: Florence Zepeda MD IMG US PROCEDURES Final Result * CT Chest PE W Contrast (02/04/2018 5:20 AM CDT) Anatomical Region Laterality Modality Body N/A Computed Tomogra phy 02/04/2018 6:09 AM CDT Impressions 02/04/2018 11:09 AM CDT No pulmonary embolism. Dictated by: Tiburcio oLck M.D. , PHD Electronically signed by: Keshawn [...] AM CDT) Hep A IgM Nonreactive Nonreactive [facility] Comment: Interpretive Data If test is reported as GRAYZONE, new sample should be drawn in two weeks for testing. Current interpretive data was last revised on 2016. Hep B core IgM Nonreactive Nonreactive [facility] Comment: Interpretive Data If test is reported as GRAYZONE, new sample should be drawn for testing. Current interpretive data was last revised on 2016. Hep C Ab Nonreactive Nonreactive [facility] Comment: Interpretive Data Positive results should be confirmed by a molecular method. If positive, a second separately collected sample should be submitted for Hepatitis C Virus (HCV) RNA Detection and Quantitation by Real-Time Reverse Credentialing Manager-PCR (RT-PCR). Current interpretive data was last revised on 2016. HepBsAg Nonreactive Nonreactive [facility] Blood specimen (specimen) 02/04/2018 4:42 AM CDT 02/04/2018 6:09 AM CDT Narrative [facility] - 02/04/2018 2:22 PM CDT us Leelee Sierra MD LAB MICROBIOLOGY - GENERAL ORD ERABLES Edited Result - Final Performing Organization Address City/[facility]/ZIP Co de Phone Number [facility] [place] [address] * RPR, serum (02/04/2018 4:42 AM CDT) RPR Nonreactive Nonreactive [facility] Blood specimen (specimen) 02/04/2018 4:42 AM CDT 02/04/2018 6:13 AM CDT Narrative [facility] - 02/04/2018 10:50 AM CDT us Leelee Sierra MD LAB MICROBIOLOGY - GENERAL ORD ERABLES Final Result Performing Organization Address [facility] Co de Phone Number [facility] Department [place] [address] * (ABNORMAL) Iron profile w/ IBC (02/04/2018 4:42 AM CDT) Iron 31(L) 35 - 145 mcg/dL [facility] UIBC 327 112 - 347 mcg/dL [facility] TIBC 358 250 - 400 mcg/dL [facility] Transferrin saturation 9(L) 20 - 50 % [facility] Blood specimen (specimen) 02/04/2018 4:42 AM CDT 02/04/2018 6:09 AM CDT Narrative [facility] - 02/04/2018 7:43 AM CDT us Leelee Sierra MD LAB BLOOD ORDERABLES Final Res ult [facility] [place] [address] * Vitamin B12 (02/04/2018 4:42 AM CDT) Pathologist [facility] Vitamin B12 299 230 - 1,250 pg/mL [facility] Blood specimen (specimen) 02/04/2018 4:42 AM CDT 02/04/2018 6:09 AM CDT Narrative [facility] - 02/04/2018 7:43 AM CDT us Leelee Sierra MD LAB BLOOD ORDERABLES Final Res ult Performing Organization Address City/[facility]/[place] [address] * Ferritin (02/04/2018 4:42 AM CDT) Pathologist [facility] Ferritin 81 15 - 150 ng/mL [facility] Blood specimen (specimen) 02/04/2018 4:42 AM CDT 02/04/2018 6:09 AM CDT Narrative [facility] - 02/04/2018 7:43 AM CDT us Leelee Sierra MD LAB BLOOD ORDERABLES Final Res ult Performing Organization Address City/[facility]/ZIP Co de Phone Number [facility] Department [place] [address] * HIV-1 and HIV-2 antibody with P24 antigen immunoassay (02/04/2018 4:42 AM CDT) Pathologist [facility] HIV 1/2 ab + p24 ag Nonreactive Nonreactive [facility] Comment:Negative for HIV-1 a ntigen and HIV-1/ HIV-2 antibodies. No laboratory evidence of HIV infection. If acute HIV infection is suspected, consider testing for HIV-1 RNA. Blood specimen (specimen) 02/04/2018 4:42 AM CDT 02/04/2018 6:13 AM CDT Narrative [facility] - 02/04/2018 7:43 AM CDT Leelee Sierra MD LAB MICROBIOLOGY - GENERAL ORD ERABLES Final Result Performing Organization Address [facility] [place] [address] * Creatinine (02/04/2018 4:42 AM CDT) Creatinine 0.73 0.60 - 1.10 mg/dL [facility] Blood specimen (specimen) 02/04/2018 4:42 AM CDT 02/04/2018 6:09 AM CDT Narrative [facility] - 02/04/2018 6:36 AM CDT Unless preformed in the last 48 hours. Draw prior to enoxaparin administration. THE COLLECTION LOCATION IS [facility] ED2-25 Florence Zepeda MD LAB BLOOD ORDERABLES Fin al Result Performing Organization Address [facility] [place] [address] * aPTT (02/04/2018 4:42 AM CDT) aPTT 25.0 25.0 - 37.0 sec [facility] Comment: Interpretive Data Therapeutic heparin range:60.0 - 94.0 sec based on correlation with therapeutic heparin activity range of 0.3 -0.7 Units/mL. Current interpretive data was last revised on 2011. Blood specimen (specimen) 02/04/2018 4:42 AM CDT 02/04/2018 5:59 AM CDT Narrative [facility] - 02/04/2018 6:30 AM CDT Unless preformed in the last 48 hours. Draw prior to enoxaparin administration. THE COLLECTION LOCATION IS [facility] ED2-25 Florence Zepeda MD LAB BLOOD ORDERABLES Fin al Result Performing Organization Address [facility]/ZIP Co de Phone Number [facility] [place] [address] * (ABNORMAL) Protime-INR (02/04/2018 4:42 AM CDT) Pathologist [facility] PT 14.6(H) 8.5 - 13.0 sec [facility] INR 1.36(H) 0.80 - 1.21 [facility] Comment: Interpretive Data Inpatient therapeutic ranges* Atrial fibrillation ?2.0-3.0 INR Venous thrombo-embolism ?2.0-3.0 INR Bioprosthetic heart valve ?* Mechanical heart valve, bileaflet or tilting disk,aortic position ? 2.0-3.0 INR All other,or bileaflet or tilting disk, in mitral position ? 2.5-3.5 INR *See the pharmacy resource directory (PHRED) for an updated copy of the Tool Book at [email or web address] Current Interpretive Data was last revised 2011. Blood specimen (specimen) 02/04/2018 4:42 AM CDT 02/04/2018 5:59 AM CDT Narrative [facility] - 02/04/2018 6:30 AM CDT Unless preformed in the last 48 hours. Draw prior to enoxaparin administration. THE COLLECTION LOCATION IS [facility] ED2-25 us Florence Zepeda MD LAB BLOOD ORDERABLES Fin al Result Performing Organization Address City/[facility]/ZIP Co de Phone Number [facility] Department [place] [address] * (ABNORMAL) CBC without differential (02/04/2018 4:42 AM CDT) [facility] WBC 7.9 3.8 - 9.9 K/cumm [facility] Hgb 8.7(L) 11.9 - 15.5 g/dL [facility] Hct 30.0(L) 35.6 - 45.5 % [facility] Plt 325 150 - 400 K/cumm [facility] MPV 9.9 9.1 - 12.3 fL [facility] RBC 4.14 3.90 - 5.20 M/cumm [facility] MCV 72.5(L) 81.3 - 96.4 fL [facility] MCH 21.0(L) 27.1 - 33.3 pg [facility] MCHC 29.0(L) 32.3 - 35.7 g/dL [facility] RDW CV 19.4(H) 11.1 - 14.9 % [facility] RDW SD 49.4(H) 35.7 - 48.1 fL [facility] NRBC abs 0.00 0.00 - 0.01 K/cumm [facility] Blood specimen (specimen) 02/04/2018 4:42 AM CDT 02/04/2018 6:09 AM CDT Narrative [facility] - 02/04/2018 6:16 AM CDT Unless preformed in the last 48 hours. Draw prior to enoxaparin administration. THE COLLECTION LOCATION IS [facility] ED2-25 us Florence Zepeda MD LAB BLOOD ORDERABLES Fin al Result [facility] [place] [address] * POCT hCG, urine (02/04/2018 3:36 AM CDT) Pathologist [facility] HCG, ur, POC Negative Lot Number [id number] QC Backgroud Clear Acceptable QC Control Line Acceptable Urine 02/04/2018 3:36 AM CDT Baljeet Torres MD POINT OF CARE TE ST ORDERABLES Final Result * Amphetamine, urine, confirmation (02/04/2018 1:32 AM CDT) Amphetamine Conf, Ur Confirmed positive [facility] Methamphetamine Conf, Ur Confirmed positive [facility] Amphetamine, ur, quant Confirmed positive [facility] Comment: Interpretive Data The results of this test are to be used only for medical purposes and are not suitable for forensic use. Current interpretive data was last revised on 2013 Urine 02/04/2018 1:32 AM CDT 02/04/2018 1:58 AM CDT Narrative [facility] - 02/04/2018 12:10 PM CDT This test was developed using an analyte specific reagent. ??Its performance characteristics were determined by the [facility] in a manner consistent with CLIA requirements. ??This test has not been cleared or approved by the U.S. Food and Drug Administration. Baljeet Torres MD LAB URINE ORDERA BLES Final Result [facility] [place] [address] * (ABNORMAL) Urinalysis, microscopic only (02/04/2018 1:32 AM CDT) WBC, ur 0-5 0 - 5 /HPF [facility] RBC, ur 0-5 0 - 5 /HPF [facility] Epithelial cells, squamous, ur 1-5 0 - 5 /HPF [facility] Bacteria, ur 3+(A) [facility] Mucous, ur Present(A) [facility] Hyaline casts, ur 1-5 0 - 10 /LPF [facility] Urine 02/04/2018 1:32 AM CDT 02/04/2018 1:36 AM CDT Narrative [facility] - 02/04/2018 1:59 AM CDT us Florence Zepeda MD LAB URINE ORDERABLES Fin al Result Performing Organization Address [facility] Co de Phone Number [facility] [place] [address] * (ABNORMAL) aPTT (02/04/2018 1:32 AM CDT) aPTT 23.9(L) 25.0 - 37.0 sec [facility] Comment: Interpretive Data Therapeutic heparin range:60.0 - 94.0 sec based on correlation with therapeutic heparin activity range of 0.3 -0.7 Units/mL. Current interpretive data was last revised on 2011. Blood specimen (specimen) 02/04/2018 1:32 AM CDT 02/04/2018 1:36 AM CDT Narrative [facility] - 02/04/2018 2:11 AM CDT THE COLLECTION LOCATION IS [facility] us Florence Zepeda MD LAB BLOOD ORDERABLES Fin al Result Performing Organization Address [facility] Co de Phone Number [facility] [place] [address] * (ABNORMAL) Protime-INR (02/04/2018 1:32 AM CDT) PT 14.5(H) 8.5 - 13.0 sec [facility] INR 1.35(H) 0.80 - 1.21 [facility] Comment: Interpretive Data Inpatient therapeutic ranges* Atrial fibrillation ?2.0-3.0 INR Venous thrombo-embolism ?2.0-3.0 INR Bioprosthetic heart valve ?* Mechanical heart valve, bileaflet or tilting disk,aortic position ? 2.0-3.0 INR All other,or bileaflet or tilting disk, in mitral position ? 2.5-3.5 INR *See the pharmacy resource directory (PHRED) for an updated copy of the Tool Book at [email or web address] Current Interpretive Data was last revised 2011. Blood specimen (specimen) 02/04/2018 1:32 AM CDT 02/04/2018 1:36 AM CDT Narrative [facility] - 02/04/2018 2:11 AM CDT THE COLLECTION LOCATION IS [facility] Florence Zepeda MD LAB BLOOD ORDERABLES [facility] al Result [facility] [place] [address] * (ABNORMAL) Urinalysis reflex to microscopic Urine (02/04/2018 1:32 AM CDT) Color, ur Dariela Yellow [facility] Clarity, ur Cloudy(A) Clear [facility] Specific gravity, ur 1.032(H) 1.010 - 1.025 [facility] pH, urine 5.0 [facility] Protein, ur ql 1+(A) Negative [facility] Glucose, ur ql Negative Negative [facility] Ketones, ur Negative Negative [facility] Bilirubin, ur Negative Negative [facility] Blood, ur 2+(A) Negative [facility] Urobilinogen, ur 2.0(A) <2.0 mg/dL [facility] Nitrite, ur Negative Negative [facility] Leukocyte esterase, ur Negative Negative [facility] Urine 02/04/2018 1:32 AM CDT 02/04/2018 1:36 AM CDT Narrative [facility] - 02/04/2018 1:53 AM CDT THE BJ COLLECTION LOCATION IS [place] [address] Urine pH is affected by diet, medications, systemic acid-base disturbances, and renal tubular function. ??pH may affect urinary stone formation. ??For example, urine pH below 6.0 may help reduce the tendency for calcium phosphate stones and pH greater than 6.0 may reduce the tendency for uric acid stone formation. Source: [facility] [employer]. Last revised 04-18-2017 Florence Zepeda MD LAB URINE ORDERABLES Fin al Result [facility] [place] [address] * Drug screen, urine (02/04/2018 1:32 AM CDT) Amphetamines, Class Presumptive [facility] Comment: Interpretive Data Immunoassay Screen cutoff level 500 ng/mL. Samples containing greater than 500 ng/mL of amphetamine/methamphetamine or other cross-reacting substances are reported as presumptive and submitted for confirmatory testing. See separate confirmatory results for final interpretation.Results are to be used for medical purposes only. ? Current interpretive data was last revised 2015. Barbiturates, Class None detected [facility] Comment: Interpretive Data Immunoassay Screen cutoff level [...] 2017. Benzodiazepines, ur None detected [facility] Comment: Interpretive Data Immunoassay Screen cutoff level 200 ng/mL. Samples containing greater than 200 ng/mL of benzodiazepines or other cross-reacting substances are reported as screen positive, but are not routinely submitted for confirmatory testing. If confirmation is required, please contact the laboratory. Results are to be used for medical purposes only. Current interpretive data was last revised 2015. Cannabinoids, Screen Positive Screen [facility] Comment: Interpretive Data Immunoassay Screen cutoff level [...] AM CDT 02/04/2018 1:58 AM CDT Narrative [facility] - 02/04/2018 2:36 AM CDT THE COLLECTION LOCATION IS [place] [address] Baljeet Torres MD LAB URINE ORDERA BLES Final Result Performing Organization Address City/[facility] Co de Phone Number [facility] [place] [address] * Hepatic function panel (02/04/2018 12:59 AM CDT) Bilirubin, total 0.5 0.1 - 1.2 mg/dL [facility] Bilirubin, direct <0.2 0.1 - 0.3 mg/dL [facility] Protein, pl 7.3 6.5 - 8.5 g/dL [facility] Albumin 3.7 3.5 - 5.0 g/dL [facility] Alk phos 92 40 - 130 Units/L [facility] ALT 15 7 - 45 Units/L [facility] AST 29 10 - 45 Units/L [facility] Blood specimen (specimen) 02/04/2018 12:59 AM CDT 02/04/2018 1:05 AM CDT Narrative [facility] - 02/04/2018 2:08 AM CDT us Notinfile Unknown LAB BLOOD ORDERABLES Final Res ult Performing Organization Address [facility] Co de Phone Number [facility] [place] [address] * TSH reflex to free T4 (02/04/2018 12:59 AM CDT) TSH 3.40 0.30 - 4.20 mcIUnit/mL [facility] Blood specimen (specimen) 02/04/2018 12:59 AM CDT 02/04/2018 1:05 AM CDT Narrative [facility] - 02/04/2018 2:07 AM CDT us Notinfile Unknown LAB BLOOD ORDERABLES Final Res ult Performing Organization Address [facility] Co de Phone Number [facility] [place] [address] * Lipase (02/04/2018 12:59 AM CDT) Pathologist [facility] Lipase 47 10 - 99 Units/L [facility] Blood specimen (specimen) 02/04/2018 12:59 AM CDT 02/04/2018 1:05 AM CDT Narrative [facility] - 02/04/2018 2:07 AM CDT us Notinfile Unknown LAB BLOOD ORDERABLES Final Res ult Performing Organization Address [facility] de Phone Number [facility] [place] [address] * (ABNORMAL) Differential, auto (02/04/2018 12:59 AM CDT) [facility] Neutrophil abs 6.2 1.7 - 6.5 K/cumm [facility] Imm gran abs 0.0 0.0 - 0.1 K/cumm [facility] Lymphocyte abs 1.9 0.8 - 3.3 K/cumm [facility] Monocyte abs 0.9(H) 0.2 - 0.8 K/cumm [facility] Eosinophil abs 0.2 0.0 - 0.5 K/cumm [facility] Basophil abs 0.0 0.0 - 0.1 K/cumm [facility] Neutrophil pct 67.6 % [facility] Comment: Interpretive Data Percent cell count reference ranges are not reported, since discordance with absolute values may lead to misinterpretation of CBC data. Current Interpretive Data was last revised on 2017. Imm gran pct 0.3 % [facility] Comment: Interpretive Data Percent [...] ORDERA BLES Final Result [facility] [place] [address] * Ethanol (02/04/2018 12:59 AM CDT) Ethanol [...] CDT 02/04/2018 1:06 AM CDT Narrative [facility] - 02/04/2018 1:26 AM CDT THE COLLECTION LOCATION IS [facility] ED225 Baljeet Torres MD LAB BLOOD ORDERA BLES Final Result [facility] [place] [address] * Basic metabolic panel (02/04/2018 12:59 AM CDT) Sodium 139 135 - 145 mmol/L [facility] Potassium, pl 3.8 3.3 - 4.9 mmol/L [facility] Chloride 105 97 - 110 mmol/L [facility] CO2 25 22 - 32 mmol/L [facility] Anion gap 9 2 - 15 mmol/L [facility] BUN 12 8 - 25 mg/dL [facility] Creatinine 0.75 0.60 - 1.10 mg/dL [facility] Glucose 92 70 - 199 mg/dL [facility] Comment: Interpretive Data Fasting [...] 2017. Calcium 9.5 8.5 - 10.3 mg/dL [facility] Blood specimen (specimen) 02/04/2018 12:59 AM CDT 02/04/2018 1:05 AM CDT Narrative [facility] - 02/04/2018 1:31 AM CDT THE COLLECTION LOCATION IS Baljeet Torres MD LAB BLOOD ORDERA BLES Final Result [facility] [place] [address] * (ABNORMAL) CBC with auto differential (02/04/2018 12:59 AM CDT) [facility] WBC 9.2 3.8 - 9.9 K/cumm [facility] Hgb 8.7(L) 11.9 - 15.5 g/dL [facility] Hct 29.1(L) 35.6 - 45.5 % [facility] Plt 307 150 - 400 K/cumm [facility] MPV 9.2 9.1 - 12.3 fL [facility] RBC 4.03 3.90 - 5.20 M/cumm [facility] MCV 72.2(L) 81.3 - 96.4 fL [facility] MCH 21.6(L) 27.1 - 33.3 pg [facility] MCHC 29.9(L) 32.3 - 35.7 g/dL [facility] RDW CV 19.0(H) 11.1 - 14.9 % [facility] RDW SD 49.2(H) 35.7 - 48.1 fL [facility] NRBC abs 0.00 0.00 - 0.01 K/cumm [facility] Blood specimen (specimen) (Blood, Venous) 02/04/2018 12:59 AM CDT 02/04/2018 1:06 AM CDT Narrative [facility] - 02/04/2018 1:15 AM CDT THE COLLECTION LOCATION IS Baljeet Torres MD LAB BLOOD ORDERA BLES Final Result [facility] [place] [address] * Troponin I (02/04/2018 12:59 AM CDT) Troponin I <0.03 0.00 - 0.03 ng/mL [facility] Comment: Interpretive Data: Normal [...] for Troponin assay. References: 1. Clin Chem 2013;59:4890-1907 2. Journal of the [place] College of Cardiology 2012;60:1581-98 Current Interpretive Data Last Revised Date: 2017. Blood specimen (specimen) 02/04/2018 12:59 AM CDT 02/04/2018 1:05 AM CDT [facility] - 02/04/2018 1:38 AM CDT THE COLLECTION LOCATION IS us Baljeet Torres MD LAB BLOOD ORDERA BLES Final Result [facility] [place] [address] * XR Chest Pa Lateral 2 Vw [...] 12-LEAD (02/03/2018 8:12 PM CDT) Narrative [facility] - 02/03/2018 8:12 PM CDT Sonja Jesus [...] Baljeet Torres MD ECG ORDERABLES Final Result [facility] documented in this encounter Visit Diagnoses [...] [place], GEOVANY)1139 (Given - Provider: Delicia Andrade, GEOVANY) chlordiazePOXIDE (LIBRIUM) capsule 50 mg (COMPLETED) [...] (ATIVAN) injection 2 mg 4 018 multivit hrwazkvk-odhx-EQ-ca lcium (THERA-M) tablet 1 tablet 1 02/04/2018 [...] 02/04/2018 documented in this encounter Care Teams Building Supervisor Relationship Specialty Start Date End Date Unknown, Notinfile PCP - General 02/04/18 02/17/18 documented as of this encounter
--- OUTSIDE RECORDS SUMMARY | 2024-03-24 19:47 | XMS_ITS | Encounter Summary ---
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 Negative: Repeat in 4-6 hours as indicated. Triglycerides 140 0 - 149 mg/dL 12/30/2017 5:43 PM CDT [facility] [employer] HISTORICAL RESULTS Comment: National Lipid Association/NCEP Guidelines: ?? Normal ?< 150 mg/dL ?? Borderline high ?? 150-199 mg/dL ?? High ?200-499 mg/dL ?? Very High ? >=500 mg/dL Cholesterol 144 0 - 199 mg/dL 12/30/2017 5:43 PM CDT [facility] HISTORICAL RESULTS Comment: National Lipid Association/NCEP Guidelines: Desirable ? < 200 mg/dL Borderline high: ??200-239 mg/dL High Risk: ?>=240 mg/dL HDL Cholesterol 57 mg/dL 8 5:43 PM T [facility] HISTORICAL RESULTS Comment: Reference Ranges: ? Males: >=40 mg/dL ? Females: >=50 mg/dL LDL Cholesterol, Calc 59 0 - 129 mg/dL 12/30/2017 5:43 PM T [facility] HISTORICAL RESULTS Comment: National Lipid Association/NCEP Guidelines: ??Optimal ? < 100 mg/dL ??Near Optimal ?100-129 mg/dL ??Borderline high 130-159 mg/dL ??High ?>=160 mg/dL Cholesterol/HDL Ratio 2.5 12/30/2017 5:43 PM T [facility] HISTORICAL RESULTS Comment: Optimal ??< 3.5:1 High ? > 5:1 12/30/2017 5:05 PM CDT 12/30/2017 5:13 PM CDT us Romy Fung ELECTRIC FURNACE OPERATOR LAB BLOOD ORDERABLES Final R esult [facility] HISTORICAL RESULTS * (ABNORMAL) Protime-INR (12/30/2017 5:05 PM CDT) PT 15.2(H) 11.8 - 14.5 SECONDS 12/30/2017 5:23 PM CDT [facility] HISTORICAL RESULTS INR 1.18 12/30/2017 5:23 PM T [facility] HISTORICAL RESULTS Comment: Recommended Therapeutic range for Oral Anticoagulant Therapy No anti-coagulation therapy ? Normal Range: ?0.8-1.4 Anti-coagulation therapy ? Low intensity therapy ?2.0-3.0 ? High intensity therapy ?? 2.5-3.5 Critical Value ? Greater than or equal to 5.0 Patients should be monitored for serious bleeding. ?? 12/30/2017 5:05 PM CDT 12/30/2017 5:13 PM CDT Romy Fung ELECTRIC FURNACE OPERATOR LAB BLOOD ORDERABLES Final R formerly [facility] Performing Organization Address [facility] Co de Phone Number [facility] HISTORICAL RESULTS * aPTT (12/30/2017 5:05 PM CDT) APTT 26 26 - 33 SECONDS 12/30/2017 5:24 PM T [facility] HISTORICAL RESULTS 12/30/2017 5:05 PM CDT 12/30/2017 5:13 PM CDT Romy Fung ELECTRIC FURNACE OPERATOR LAB BLOOD ORDERABLES Final R formerly [facility], [facility] Performing Organization Address [facility] de Phone Number [facility] HISTORICAL RESULTS * (ABNORMAL) Comprehensive metabolic panel [...] gm/dL Albumin/Globulin Ratio 0.9(L) 1.1 - 1.8 12/30/2017 5:44 PM T [facility] HISTORICAL RESULTS Total Bilirubin 0.3 0.0 - 1.2 mg/dL 12/30/2017 5:44 PM T [facility] HISTORICAL RESULTS AST 39(H) 0 - 32 U/L 12/30/2017 5:44 PM T [facility] HISTORICAL RESULTS Comment: MODERATELY HEMOLYZED: Hemolysis interferes with the above test. ALT 15 0 - 33 U/L 12/30/2017 5:44 PM T [facility] HISTORICAL RESULTS Alkaline Phosphatase 94 35 - 104 U/L 12/30/2017 5:05 PM CDT 12/30/2017 5:13 PM CDT Romy Fung ELECTRIC FURNACE OPERATOR LAB BLOOD ORDERABLES Final R esult [facility] HISTORICAL RESULTS * (ABNORMAL) CBC with auto [...] Lymph % 23.0 5.0 - 45.0 % [place] % 7.5 3.0 - 15.0 % Eos [...] Rel Count 0.0 0 - 3 #/100WBC 12/30/2017 5:22 PM CDT [facility] HISTORICAL RESULTS Absolute Nucleated RBC 0.00 x10 3/ul 12/30/2017 5:22 PM CDT [facility] HISTORICAL RESULTS Absolute Neutrophils 5400 200 - 8000 /ul 12/30/2017 5:22 PM CDT [facility] HISTORICAL RESULTS 12/30/2017 5:05 PM CDT 12/30/2017 5:13 PM CDT us Romy Fung ELECTRIC FURNACE OPERATOR LAB BLOOD ORDERABLES Final R esult [facility] HISTORICAL RESULTS * XR Chest Pa Lateral 2 Views (12/30/2017 12:00 AM CDT) Anatomical Region Laterality Modality Body, Chest N/A Radiographic Alexsandra ging 12/30/2017 Impressions 12/30/2017 4:57 PM CDT ??No acute cardiopulmonary abnormality. THIS IS AN ELECTRONICALLY VERIFIED FINAL REPORT 12/30/2017 4:54 PM - Electronically signed by Kaiser Taylor M.D. AG: AG D: ??12/30/2017 4:54 PM T: ??12/30/2017 4:54 PM Report ID: [id number] Reading Location: ??[id number] [EOD] Narrative 12/30/2017 4:57 [...] Provider, Lawanda, - 08/23/2020 EXAM DESCRIPTION: Chest 2 Views [...] Kaiser Taylor M.D. AG: CHELSEA Report ID: [id number] Reading Location: [place] [address] [EOD] us Romy Fung ELECTRIC FURNACE OPERATOR IMG XR PROCEDURES Final Resu lt * US Vein Duplex Lower Extremity Right Limited (12/30/2017 12:00 AM CDT) Anatomical Region Laterality Modality Vascular Right Ultrasound 12/30/2017 Impressions 01/02/2018 11:45 AM CDT ??Negative for deep vein thrombosis, right lower extremity and left common femoral vein. ??Pulsatile flow is noted and can be seen consistent with volume overload. NTS Job: [id number] Dictated By: Kade Mirza MD Dictated For: [...] seen consistent with volume overload. 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
--- OUTSIDE RECORDS SUMMARY | 2024-03-24 19:47 | XMS_ITS | Encounter Summary ---
Author Organization [facility] Healthcare Address [facility] [place] [address] Care Team Providers Care Washer Assembler Name Role Phone Unavailable Primary Care Provider Unavailabl e Encounter Details Date Type Department Care Team (Latest Contact Info) Description 01/27/2018 2:08 AM CDT - 01/27/2018 5:29 AM CDT [facility] [place] [address] [facility] [address] [place] [address] Major depressive disorder, single episode; Cocaine abuse, uncomplicated (CMS/HCC); Essential (primary) hypertension; Anxiety disorder; Personal history of pulmonary embolism; 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 Social History Tobacco Use [...] MD LAB BLOOD ORDERABLES Nika perez Result [facility] [employer] HISTORICAL RESULTS * (ABNORMAL) CBC with auto differential (01/27/2018 2:53 AM CDT) WBC 8.2 3.8 - 9.9 X10 3/ul 01/27/2018 3:00 AM CDT [employer] HISTORICAL RESULTS RBC 4.18 3.90 - 5.20 x10 6/ul 01/27/2018 3:00 AM CDT [employer] HISTORICAL RESULTS Hemoglobin 9.0(L) 11.9 - 15.5 g/dL 01/27/2018 3:00 AM T [employer] HISTORICAL RESULTS Hct 30.6(L) 35.6 - 45.5 % 01/27/2018 3:00 AM T [employer] HISTORICAL RESULTS MCV 73.2(L) 81.3 - 96.4 fl 01/27/2018 3:00 AM T [employer] HISTORICAL RESULTS MCH 21.5(L) 27.1 - 33.3 pg 01/27/2018 3:00 AM CDT [employer] HISTORICAL RESULTS MCHC 29.4(L) 32.3 - 35.7 g/dl 01/27/2018 3:00 AM T [employer] HISTORICAL RESULTS RDW 18.6(H) 11.1 - 14.9 % 01/27/2018 3:00 AM CDT [employer] HISTORICAL RESULTS Plt Count 277 150 - 400 x10 3/ul 01/27/2018 3:00 AM T [employer] HISTORICAL RESULTS MPV 9.6 9.1 - 12.3 fl 01/27/2018 3:00 AM T [employer] HISTORICAL RESULTS Neut % 67.5 % Immature Gran % 0.2 % 8 3:00 AM [facility] HISTORICAL RESULTS Lymph % 20.7 % [place] % 6.7 % Eos % 4.4 % [...] ORDERABLES Nika l Result Performing Organization Address [facility] Co de Phone Number [facility] HISTORICAL RESULTS * TSH (01/27/2018 2:52 AM CDT) TSH 2.26 0.27 - 4.20 uIU/mL 01/27/2018 2:52 AM CDT 01/27/2018 2:56 AM CDT us Tito Donaldson MD LAB BLOOD ORDERABLES Nika l Result Performing Organization Address [facility] Phone Number [facility] HISTORICAL RESULTS * Salicylate level (01/27/2018 2:52 AM CDT) Pathologist [facility] Salicylates < 1 0 - 29 mg/dL 01/27/2018 2:52 AM CDT 01/27/2018 2:56 AM CDT Tito Donaldson MD LAB BLOOD ORDERABLES Nika l Result Performing Organization Address [facility] Phone Number [facility] HISTORICAL RESULTS * Ethanol (01/27/2018 2:52 AM CDT) Pathologist [facility] Ethyl Alcohol 15 mg/dL Comment:% = mg/dL x .001 01/27/2018 2:52 AM CDT 01/27/2018 2:56 AM CDT Tito Donaldson MD LAB BLOOD ORDERABLES Nika l Result Performing Organization Address [facility] de Phone Number [facility] HISTORICAL RESULTS * (ABNORMAL) Comprehensive metabolic panel (01/27/2018 2:52 AM CDT) Pathologist [facility] [...] MD LAB BLOOD ORDERABLES Nika l Result [facility] HISTORICAL RESULTS * (ABNORMAL) Acetaminophen level (01/27/2018 [...] MD LAB BLOOD ORDERABLES Nika l Result [facility] HISTORICAL RESULTS * UA with Culture Reflex (01/27/2018 2:18 AM CDT) Ur Collection Type CLEAN CATCH Ur Culture Indicated? C&S NOT INDICATED Urine Color YELLOW YELLOW Urine Clarity CLEAR CLEAR Urine Glucose (UA) NORMAL NORMAL mg/dL Urine Bilirubin NEGATIVE NEGATIVE mg/dl Urine Ketones NEGATIVE NEGATIVE mg/dL Ur Specific [place] 1.020 1.005 - 1.025 Urine Blood NEGATIVE NEGATIVE mg/dl Urine pH 5.0 5.0 - 8.0 Urine Protein NEGATIVE NEGATIVE mg/dL Urine Urobilinogen NORMAL NORMAL mg/dL Urine Nitrite NEGATIVE NEGATIVE Ur Leukocyte Esterase NEGATIVE NEGATIVE Blu/ul Ur Microscopic Review Not Indicated 01/27/2018 2:18 AM CDT 01/27/2018 2:57 AM CDT Narrative [facility] HISTORICAL RESULTS - 01/27/2018 3:05 AM CDT Indication(s) for ordering ? Delirium/malaise/lethargy us Tito Donaldson MD LAB URINE ORDERABLES Nika perez Result [facility] HISTORICAL RESULTS * (ABNORMAL) Drug Screen, Urine [...] Comment: RESULT CALLED at: [id number] 01/27/18 by: [id number] to: [id number] ?? CONFIRMATION on Positive result requested: NO Cutoff limit: ??300 ng/mL Urine Opiates Screen NEGATIVE NEGATIVE Comment: Cutoff Limit: ??300 ng/mL Detects Morphine, Codeine, Ethyl Morphine, ?Diacetylmorphine, 6-Acetylmorphine, Dihydrocodeine, ?Xogcfknx-2-mrupxgsneyt and Hydrocodone Ur Oxycodone Screen NEGATIVE NEGATIVE Comment:Cutoff Limit: 100 ng /mL Urine Creatinine/JESUS 117.3 mg/dL Comment:If Creatinine is < 4 0 mg/dL, recollection is suggested. 01/27/2018 2:18 AM CDT 01/27/2018 2:50 AM CDT Narrative [facility] HISTORICAL RESULTS - 01/27/2018 3:11 AM CDT Collected By tb us Tito Donaldson MD LAB URINE ORDERABLES Nika l Result [facility] HISTORICAL RESULTS documented in this encounter Visit Diagnoses Diagnosis Major depressive disorder, single episode Major depressive disorder, single episode, unspecified Cocaine abuse, uncomplicated (CMS/HCC) (HCC) Essential (primary) hypertension Unspecified essential hypertension Anxiety disorder Anxiety state, unspecified Personal history of pulmonary embolism 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
--- OUTSIDE RECORDS SUMMARY | 2024-03-24 19:47 | XMS_ITS | Encounter Summary ---
Author Organization [facility] Healthcare Address [address] [place] [address] Care Team Providers Care Counter Intelligence Agent Name Role Phone Unknown, Notinfile Primary Care Provider Unavail able Encounter Details Date Type Department Care Team (Late st Contact Info) Description 02/04/2018 7:50 AM CDT Ancillary Procedure [facility] [address] [place] [address] Social History Tobacco Use Types Packs/Day Years [...] AM CDT Narrative 02/04/2018 8:48 PM CDT [facility] - Department of Vascular Surgery, Vascular Laboratory [address] [place] [id number] Lower Extremity Venous Ultrasound Report Patient Name: ENEIDA HAN : 1970 (47y 1m) Study Date: 02/04/2018 7:50:01 AM Gender: F Tech: Location: [facility] Ref.Provider: DORITA GUIDRY Quality: Adequate Order Provider: RACHELLE ZEPEDA Procedures: Vascular Report: Venous Duplex imaging was performed bilaterally in the lower extremities. The common femoral, femoral, popliteal, posterior tibial, peroneal veins were evaluated for patency, spontaneity and phasicity with Doppler, compression and augmentation maneuvers. Great saphenous vein proximal at the junction was evaluated with compression maneuvers. Indications: HX of DVT. Findings: Performing Spring Assembler: Evelyn Mrudock RVT. Bilateral: Venous Doppler signals in the [...] Electronically Signed By: Jatin De Jesus MD [facility] 2018-02-04 20:48:13 CDT CC: CC: Procedure Note Jatin De Jesus MD - 02/04/2018 [facility] - Department of Vascular Surgery,Vascular Laboratory [address] [place] [id number] Lower Extremity Venous Ultrasound Report Patient Name: ENEIDA HANPatient ID: [id number] : 1970 (47y 1m)Study Date: 02/04/2018 7:50:01 AM Gender: FAccession #: [id number] Tech: TMLocation: [id number] Ref.Provider: DORITA GUIDRYQuality: Adequate Order Provider: Farhan ZEPEDA #: [id number] Procedures: Vascular Report: Venous Duplex imaging was performed bilaterally in the lower extremities.The common femoral, femoral, popliteal, posterior tibial, peroneal veins wereevaluated for patency, spontaneity and phasicity with Doppler, compression and augmentationmaneuvers. Great saphenous vein proximal at the junction was evaluated with compressionmaneuvers. Indications: HX of DVT. Findings: Performing Spring Assembler: Evelyn Murdock RVT. Bilateral: Venous Doppler signals [...] Electronically Signed By: Jatin De Jesus MD [facility] 2018-02-04 20:48:13 CDT CC: CC: Rachelle Zepeda MD [facility] PROCEDURES Final Result documented in this encounter Visit Diagnoses Not on filedocumented in this encounter Care Teams Counter Intelligence Agent Relationship Specialty Start Date End Date Unknown, Notinfile PCP - General 02/04/18 02/17/18 documented as of this encounter
--- OUTSIDE RECORDS SUMMARY | 2024-03-24 19:47 | XMS_ITS | Encounter Summary ---
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 MA: LOREN Report ID: [id number] Reading Location: [place] [address] [EOD] Bob Mccall MD IMG XR PROCEDURES Final Re sult * TNI with LIPID PANEL (01/05/2018 2:51 AM CDT) Pathologist [facility] Troponin I < 0.300 0.000 - 0.300 ng/mL 01/05/2018 3:26 AM [facility] [employer] HISTORICAL RESULTS Comment: Reference using [employer] Chemiluminescence ? Negative: Repeat in 4-6 hours as indicated. Triglycerides 99 0 - 149 mg/dL 01/05/2018 3:28 AM T [employer] HISTORICAL RESULTS Comment: National Lipid Association/NCEP Guidelines: ?? Normal ?< 150 mg/dL ?? Borderline high ?? 150-199 mg/dL ?? High ?200-499 mg/dL ?? Very High ? >=500 mg/dL Cholesterol 170 0 - 199 mg/dL 01/05/2018 3:28 AM T [facility] [employer] HISTORICAL RESULTS Comment: National Lipid Association/NCEP Guidelines: Desirable ? < 200 mg/dL Borderline high: ??200-239 mg/dL High Risk: ?>=240 mg/dL HDL Cholesterol 62 mg/dL 8 3:28 AM T [facility] HISTORICAL RESULTS Comment: Reference Ranges: ? Males: >=40 mg/dL ? Females: >=50 mg/dL LDL Cholesterol, Calc 88 0 - 129 mg/dL Comment: National Lipid Association/NCEP Guidelines: ??Optimal ? < 100 mg/dL ??Near Optimal ?100-129 mg/dL ??Borderline high 130-159 mg/dL ??High ?>=160 mg/dL Cholesterol/HDL Ratio 2.7 Comment: Optimal ??< 3.5:1 High ? > 5:1 01/05/2018 2:51 AM CDT 01/05/2018 2:55 AM CDT us Bob Mccall MD LAB BLOOD ORDERABLES Final Result [facility] HISTORICAL RESULTS * (ABNORMAL) Comprehensive metabolic panel (01/05/2018 2:51 AM CDT) Sodium 145 135 - 145 mmol/L Potassium 3.9 3.3 - 5.1 mmol/L Chloride 100 96 - 108 mmol/L Carbon Dioxide 25 22 - 32 mmol/L Anion Gap 20(H) 7 - 16 Glucose 67(L) 70 - 100 mg/dL BUN 13 6 - 20 mg/dL Creatinine 0.7 0.5 [...] dialysis @ Est GFR (Cockcroft-G) 147 ml/MIN Comment: Estimated GFR(Cockroft-Gault)is used to calculate patient medication dosage Calcium 9.1 8.6 - 10.0 mg/dL Total Protein 8.2 6.4 - 8.3 g/dL Albumin 4.1 3.5 - 5.2 g/dL Globulin 4.1(H) 2.3 - 3.5 gm/dL Albumin/Globulin Ratio 1.0(L) 1.1 - 1.8 Total Bilirubin 0.4 0.0 - 1.2 mg/dL AST 28 0 - 32 U/L ALT 13 0 - 33 U/L Alkaline Phosphatase 121(H) 35 - 104 U/L 01/05/2018 2:51 AM CDT 01/05/2018 2:55 AM CDT us Bob Mccall MD LAB BLOOD ORDERABLES Final Result [facility] HISTORICAL RESULTS * (ABNORMAL) CBC with auto differential (01/05/2018 2:51 AM CDT) WBC 7.7 3.5 - 10.5 x10 3/ul RBC 4.10 3.76 - 4.80 x10 6/ul Hemoglobin 9.1(L) 11.0 - 15.0 g/dL Hct 30.9(L) 33.0 - 43.0 % MCV 75.4(L) 80.0 - 97.0 fl MCH 22.2(L) 27.0 - 31.2 pg MCHC 29.4(L) 31.8 - 35.4 g/dl RDW 17.4(H) 11.6 - 14.8 % Plt Count 318 150 - 450 X10 3/ul MPV 9.4 7.4 - 10.4 fl Neut % 59.6 37.0 - 85.0 % Immature Gran % 0.3 0.0 - 3.0 % Lymph % 30.7 5.0 - 45.0 % [place] % 7.6 3.0 - 15.0 % Eos % 1.3 0.0 - 7.0 % Baso % 0.5 0.0 - 2.0 % Absolute Neuts (auto) 4.6 1.7 - 8.7 x10 3/ul Immature Gran # 0.0 0.0 - 0.3 x10 3/ul Absolute Lymphs (auto) 2.4 0.2 - 4.6 x10 3/ul Absolute Monos (auto) 0.6 0.1 - 1.5 x10 3/ul Absolute Eos (auto) 0.1 0.0 - 0.7 x10 3/ul 01/05/2018 3:01 AM CDT [facility] HISTORICAL RESULTS Absolute Basos (auto) 0.0 0.0 - 0.2 x10 3/ul 01/05/2018 3:01 AM CDT [facility] HISTORICAL RESULTS Nucleat RBC Rel Count 0.0 0 - 3 #/100WBC Absolute Nucleated RBC 0.00 x10 3/ul 01/05/2018 3:01 AM CDT [facility] HISTORICAL RESULTS Absolute Neutrophils 4600 200 - 8000 /ul 01/05/2018 2:51 AM CDT 01/05/2018 2:55 AM CDT us Bob Mccall MD LAB BLOOD ORDERABLES Final Result [facility] HISTORICAL RESULTS documented in this encounter Visit Diagnoses Diagnosis Other chest pain Essential (primary) hypertension Unspecified essential hypertension 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
--- OUTSIDE RECORDS SUMMARY | 2024-03-24 19:53 | XMS_ITS | Encounter Summary ---
Author Organization [facility] Address [address] [place] [address] Care Team Providers Care Iron Pellet Tester Name Role Phone Unavailable Primary Care Provider [...] st Contact Info) Description 03/19/2018 9:40 AM ATHLETIC EQUIPMENT CUSTODIAN - 03/19/2018 5:27 PM ATHLETIC EQUIPMENT CUSTODIAN Emergency ER at [address] [address] [place] [id number] [facility] [place] [address] Chest pain, unspecified type (Primary [...] Sex Assigned at Female 03/18/2023 5:31 PM ATHLETIC EQUIPMENT CUSTODIAN Gender Identity Female 03/18/2023 5:31 PM ATHLETIC EQUIPMENT CUSTODIAN Sexual Orientation Straight 03/18/2023 5: 31 PM ATHLETIC EQUIPMENT CUSTODIAN documented as of this encounter Last Filed Vital Signs Vital Sign Reading Time Taken Comments Blood Pressure 168/82 03/19/2018 4:05 PM ATHLETIC EQUIPMENT CUSTODIAN Pulse 82 03/19/2018 4:05 PM ATHLETIC EQUIPMENT CUSTODIAN Temperature 37.2 ??C (98.9 ??F) 03/19/2018 9:22 AM CS T Respiratory Rate 18 03/19/2018 4:05 PM ATHLETIC EQUIPMENT CUSTODIAN Oxygen Saturation 95% 03/19/2018 4:05 PM ATHLETIC EQUIPMENT CUSTODIAN Inhaled Oxygen Concentration - - Weight 147.4 kg (325 lb) 03/19/2018 9:22 AM ATHLETIC EQUIPMENT CUSTODIAN Height 170.2 cm (5' 7 ) 03/19/2018 9:22 AM ATHLETIC EQUIPMENT CUSTODIAN Body Mass Index 50.9 03/19/2018 9:22 AM ATHLETIC EQUIPMENT CUSTODIAN documented in this encounter Functional Status Functional [...] Sunny Delaney MD - 03/19/2018 3:32 PM ATHLETIC EQUIPMENT CUSTODIAN Images from the original note were not included. IT WAS OUR PLEASURE AT [facility] TO SERVE YOUR EMERGENCY HEALTH CARE NEEDS TODAY. YOU MAY RECEIVE A SURVEY IN THE MAIL INQUIRING ABOUT YOUR THOUGHTS REGARDING TODAY'S VISIT. PLEASE BE AWARE THAT WE STRIVE FOR THE BEST AT [facility]'S EMERGENCY DEPARTMENT, AND ANY SCORE UNDER A PERFECT 5 ISCONSIDERED A FAILURE ON OUR PART. IF YOU WERE HAPPY WITH YOUR CARE, PLEASE CHICA ALL 5'S ! Cellulitis WHAT YOU NEED TO KNOW: Cellulitis is a skin infection caused by bacteria. Cellulitis may go away on its own or you may need treatment. Your healthcare provider may draw a [place] around the outside edges of your cellulitis.If your cellulitis spreads, your healthcare provider will see it outside of the [place]. DISCHARGE INSTRUCTIONS: Call 911 if: ?? You [...] razors. ?? Clean exercise equipment with germ-killing spinning frame cleaner before and after you use it. [...] ask them during your visits. ?? Copyright [employer] 2018 Information is for End User's use only and may not be sold, redistributed or otherwise used for commercial purposes. All illustrations and images included in CareNotes?? are the copyrighted property of [employer]. or [employer] The above information is an cleaning maid only. It is not intended as medical [...] referred to a specialist, such as a internal medicine veterinary technician or it risk and assurance manager. Write down your questions so you remember [...] that you have a stent. ?? Copyright [employer] 2018 Information is for End User's use only and may not be sold, redistributed or otherwise used for commercial purposes. All illustrations and images included in CareNotes?? are the copyrighted property of [employer], [employer]. or [employer] The above information is an cleaning maid only. It is not intended as medical advice for individual conditions or treatments. Talk to your doctor, nurse or pharmacist before following any medical regimen to see if it is safe and effective for you. ETIC EQUIPMENT CUSTODIAN documented in this encounter Medications at Time [...] labored. No apparent distress noted. Pt ambulatory. ETIC EQUIPMENT CUSTODIAN * Vinita Rivas RN - 03/19/2018 2:45 PM CST Pt resting in bed with both eyes closed. Resp even non labored. No apparent distress noted. Awaiting trop results/. Call light in reach. Will continue to monitor for changes. ETIC EQUIPMENT CUSTODIAN * Sunny Delaney MD - 03/19/2018 10:25 AM CST Provider contact with the patient: 03/19/2018 10:25 Tiarra HAN [id number] [facility] EMERGENCY DEPARTMENT History Chief Complaint Patient [...] extremities. Pt states she was evaluated at [place] x2 days ago for marijuana and EtOH [...] embolus. This examination was transcribed using the Performance Indicator voice recognition system without human song lyricist. In an effort to expedite patient care, this report has not been adjusted for typographical, grammatical, and syntax by a trained medical records coordinator. Reading Radiologist: Tiarra Spaulding MD on 03/19/2018 [...] patient to follow-up with: Phil Lancaster MD [address] [place] [place] [address] In 1 day ED Course ED [...] is accurate and complete. 03/19/2018 4:11 PM ETIC EQUIPMENT CUSTODIAN * Vinita Rivas RN - 03/19/2018 10:00 AM CST Patient to ED for c/o chest pain and sob. Patient was seen at [facility] yesterday. Patient alert and orient X3. Able to make needs known. Resp even non labored. No apparent distress noted. Call lightin reach. Will continue to monitor for changes. ETIC EQUIPMENT CUSTODIAN * Melanie Adams RN - 03/19/2018 9:31 AM CST Bed: TRIAGE1 Expected date: Expected time: Means of arrival: Comments: [id number] PAIN/SOB ETIC EQUIPMENT CUSTODIAN documented in this encounter Plan of Treatment Not on file documented as of this encounter Procedures Procedure Name Priority Date/Time Associated Diagnosis Comments CARDIAC EKG ORDER 03/21/2018 1:5 4 AM ATHLETIC EQUIPMENT CUSTODIAN TROPONIN I Timed 03/19/2018 2:[address]MENT [address] ANGIO CHEST PULM EMBOLISM STAT 03/19/2018 12:50 PM ATHLETIC EQUIPMENT CUSTODIAN Chest pain, unspecified type POTASSIUM BLOOD STAT 03/19/2018 11:57 AM ATHLETIC EQUIPMENT CUSTODIAN NT-PRO BNP STAT 03/19/2018 11:28 AM ATHLETIC EQUIPMENT CUSTODIAN TROPONIN I STAT 03/19/2018 11:28 AM ATHLETIC EQUIPMENT CUSTODIAN D-DIMER STAT 03/19/2018 11:28 AM ATHLETIC EQUIPMENT CUSTODIAN CBC W AUTO DIFFERENTIAL STAT 03/19/2018 11:28 AM ATHLETIC EQUIPMENT CUSTODIAN COMPREHENSIVE METABOLIC PANEL STAT 03/19/2018 11:28 AM ATHLETIC EQUIPMENT CUSTODIAN XR CHEST 1VW PORTABLE STAT 03/19/2018 10:52 AM ATHLETIC EQUIPMENT CUSTODIAN Chest pain, unspecified type EKG 12-LEAD STAT 03/19/2018 9:10 AM ATHLETIC EQUIPMENT CUSTODIAN Chest pain, unspecified type documented in this encounter Results * CARDIAC EKG ORDER (03/21/2018 1:54 AM ATHLETIC EQUIPMENT CUSTODIAN) Narrative 03/21/2018 1:54 AM ATHLETIC EQUIPMENT CUSTODIAN Ordered by an unspecified provider. Scanned Document CARDIAC SERVICES ORD ERABLES * TROPONIN I (03/19/2018 2:51 PM ATHLETIC EQUIPMENT CUSTODIAN) Troponin I <0.015 0.000 - 0.049 ng/mL 03/19/2018 3:16 PM ATHLETIC EQUIPMENT CUSTODIAN [facility] Blood BLOOD SPECIMEN / Unknown Venipuncture / Unknown 03/19/2018 2:51 PM ATHLETIC EQUIPMENT CUSTODIAN 03/19/2018 2:51 PM ATHLETIC EQUIPMENT CUSTODIAN Narrative [facility] - 03/19/2018 3:16 PM ATHLETIC EQUIPMENT CUSTODIAN Note: Diagnosis of myocardial infarction requires symptoms [...] Delaney MD LAB - CHEMISTRY O RDERABLES [facility] [address] [place] [address] * CT CHEST PE (03/19/2018 12:50 PM ATHLETIC EQUIPMENT CUSTODIAN) Anatomical Region Laterality Modality Chest Computed Tomogra phy 03/19/2018 1:25 PM ATHLETIC EQUIPMENT CUSTODIAN Impressions 03/19/2018 1:27 PM ATHLETIC EQUIPMENT CUSTODIAN There is no evidence of pulmonary embolus. This examination was transcribed using the Performance Indicator voice recognition system without human song lyricist. ??In an effort to expedite patient care, this report has not been adjusted for typographical, grammatical, and syntax by a trained medical records coordinator. Reading Radiologist: Tiarra Spaulding MD on 03/19/2018 at 1:27 PM Narrative 03/19/2018 1:[address]IC EQUIPMENT CUSTODIAN CT Chest with Contrast INDICATION:Chest pain. Patient [...] with prior gastric reduction surgery. Procedure Note Tiarar Spaulding MD - 03/19/2018 CT Chest with [...] embolus. This examination was transcribed using the Performance Indicator voice recognition system without human song lyricist. In an effort to expedite patient care, this report has not been adjusted for typographical, grammatical, and syntax by a trained medical records coordinator. Reading Radiologist: Tiarra Spaulding MD on 03/19/2018 at 1:27 PM Sunny Delaney MD CT ORDERABLES * POTASSIUM BLOOD (03/19/2018 11:57 AM ATHLETIC EQUIPMENT CUSTODIAN) Potassium 3.7 3.5 - 5.1 mmol/L 03/19/2018 12:08 PM ATHLETIC EQUIPMENT CUSTODIAN [facility] Blood BLOOD SPECIMEN / Unknown Venipuncture / Unknown 03/19/2018 11:57 AM ATHLETIC EQUIPMENT CUSTODIAN 03/19/2018 12:00 PM ATHLETIC EQUIPMENT CUSTODIAN Sunny Delaney MD LAB - CHEMISTRY O RDERABLES Performing Organization Address City/State/[facility] Co de Phone Number [facility] [address] [place] [address] * (ABNORMAL) NT-PRO BNP (03/19/2018 11:28 AM ATHLETIC EQUIPMENT CUSTODIAN) NT-proBNP 946.0(H) <300.0 pg/mL 03/19/2018 11:55 AM ATHLETIC EQUIPMENT CUSTODIAN [facility] Blood BLOOD SPECIMEN / Unknown Venipuncture / Unknown 03/19/2018 11:28 AM ATHLETIC EQUIPMENT CUSTODIAN 03/19/2018 11:32 AM ATHLETIC EQUIPMENT CUSTODIAN Narrative [facility] - 03/19/2018 11:55 AM ATHLETIC EQUIPMENT CUSTODIAN NT-proBNP Patient Age ? Acute HF Unlikely [...] Delaney MD LAB - CHEMISTRY O RDERABLES [facility] [address] [place] [address] * (ABNORMAL) D-DIMER (03/19/2018 11:28 AM ATHLETIC EQUIPMENT CUSTODIAN) D-Dimer 1.16(H) 0.17 - 0.5 mg/L FEU 03/19/2018 11:45 AM [facility] Blood BLOOD SPECIMEN / Unknown Venipuncture / Unknown 03/19/2018 11:28 AM ATHLETIC EQUIPMENT CUSTODIAN 03/19/2018 11:32 AM ATHLETIC EQUIPMENT CUSTODIAN Narrative [facility] - 03/19/2018 11:45 AM ATHLETIC EQUIPMENT CUSTODIAN The [employer] D-Dimer assay is intended for [...] LAB - COAGULATION ORDERABLES Performing Organization Address [facility] Co de Phone Number [facility] [id number] [place] [phone] * TROPONIN I (03/19/2018 11:28 AM ATHLETIC EQUIPMENT CUSTODIAN) Troponin I <0.015 0.000 - 0.049 ng/mL 03/19/2018 11:55 AM [facility] Blood BLOOD SPECIMEN / Unknown Venipuncture / Unknown 03/19/2018 11:28 AM ATHLETIC EQUIPMENT CUSTODIAN 03/19/2018 11:32 AM ATHLETIC EQUIPMENT CUSTODIAN Narrative [facility] - 03/19/2018 11:55 AM [facility] Note: Diagnosis of myocardial infarction requires symptoms [...] - CHEMISTRY O RDERABLES Performing Organization Address [facility] de Phone Number [facility] [id number] [place] [phone] * (ABNORMAL) COMPREHENSIVE METABOLIC PANEL (03/19/2018 11:28 AM ATHLETIC EQUIPMENT CUSTODIAN) Pathologist [facility] Glucose 79 74 - 106 mg/dL 03/19/2018 11:55 AM [facility] Sodium 135(L) 136 - 145 mmol/L 03/19/2018 11:55 AM [facility] Potassium 5.7(H) 3.5 - 5.1 mmol/L 03/19/2018 11:55 AM [facility] Comment:Specimen is slightly to moderately hemolyzed which may affect results. Specimen recollection is recommended. Called to nurse Chloride 105 98 - 107 mmol/L 03/19/2018 11:55 AM [facility] CO2 26 22 - 31 mmol/L 03/19/2018 11:55 AM [facility] Calcium 8.3(L) 8.5 - 10.1 mg/dL 03/19/2018 11:55 AM [facility] Anion Gap 4(L) 8 - 16 mmol/L 03/19/2018 11:55 AM [facility] BUN 14 7 - 21 mg/dL 03/19/2018 11:55 AM [facility] Creatinine 0.73 0.50 - 1.30 mg/dL 03/19/2018 11:55 AM [facility] Alkaline Phosphatase 88 38 - 126 U/L 03/19/2018 11:55 AM [facility] ALT 27 13 - 61 U/L 03/19/2018 11:55 AM [facility] AST 59(H) 5 - 40 U/L 03/19/2018 11:55 AM [facility] Protein Total 7.7 6.4 - 8.2 gm/dL 03/19/2018 11:55 AM [facility] Albumin 2.9(L) 3.4 - 5.0 gm/dL 03/19/2018 11:55 AM [facility] Bilirubin Total 0.5 0.2 - 1.0 mg/dL 03/19/2018 11:55 AM [facility] eGFR by MDRD >60 >60 mL/min/1.7 3m2 03/19/2018 11:55 AM [facility] eGFR by MDRD >60 >60 mL/min/1.7 3m2 03/19/2018 11:55 AM [facility] Blood BLOOD SPECIMEN / Unknown Venipuncture / Unknown 03/19/2018 11:28 AM [facility] 03/19/2018 11:32 AM [facility] Sunny Delaney MD LAB - CHEMISTRY O RDERABLES [facility] [address] [place] [address] * (ABNORMAL) CBC W AUTO DIFFERENTIAL (03/19/2018 11:28 AM [facility]) WBC 8.2 4.4 - 10.7 x10E9/L 03/19/2018 11:37 AM [facility] WBC Corrected x10E9/L 03/19/2018 11:37 AM [facility] RBC 3.68(L) 3.80 - 5.20 x10E12/L 03/19/2018 11:37 AM [facility] Hemoglobin 7.9(L) 12.0 - 15.6 gm/dL 03/19/2018 11:37 AM [facility] Hematocrit 27.6(L) 35.9 - 45.5 % 03/19/2018 11:37 AM [facility] MCV 75.0(L) 80.7 - 98.3 fl 03/19/2018 11:37 AM [facility] MCH 21.5(L) 26.7 - 34.0 pg 03/19/2018 11:37 AM [facility] MCHC 28.6(L) 30.8 - 35.9 gm/dL 03/19/2018 11:37 AM [facility] Platelet Count 205 153 - 416 x10E9/L 03/19/2018 11:37 AM [facility] RDW-CV 19.2(H) 12.1 - 14.9 % 03/19/2018 11:37 AM [facility] MPV 9.7 9.4 - 12.9 fl 03/19/2018 11:37 AM [facility] Neutrophils % 71.0 44.0 - 73.0 % 03/19/2018 11:37 AM [facility] Lymphocytes % 18.3(L) 20.0 - 43.0 % 03/19/2018 11:37 AM [facility] Monocytes % 7.2 5.0 - 13.0 % 03/19/2018 11:37 AM [facility] Eosinophils % 3.1 0.0 - 6.0 % 03/19/2018 11:37 AM [facility] Basophils % 0.2 0.0 - 2.0 % 03/19/2018 11:37 AM [facility] Immature Granulocytes 0.2 0 - 1 % 03/19/2018 11:37 AM [facility] Neutrophil Absolute 5.79 2.01 - 7.14 x10E9/L 03/19/2018 11:37 AM [facility] Lymphocytes Absolute 1.49 1.07 - 3.94 x10E9/L 03/19/2018 11:37 AM [facility] Monocytes Absolute 0.59 0.26 - 1.07 x10E9/L 03/19/2018 11:37 AM ATHLETIC EQUIPMENT CUSTODIAN [facility] Eosinophils Absolute 0.25 0 - 0.47 x10E9/L 03/19/2018 11:37 AM ATHLETIC EQUIPMENT CUSTODIAN [facility] Basophils Absolute 0.02 0 - 0.08 x10E9/L 03/19/2018 11:37 AM ATHLETIC EQUIPMENT CUSTODIAN [facility] Immature Granulocytes Absolute 0.02 0.00 - 0.06 x10E9/L 03/19/2018 11:37 AM ATHLETIC EQUIPMENT CUSTODIAN [facility] nRBC Auto 0 /100 WBC 03/19/2018 11:37 AM ATHLETIC EQUIPMENT CUSTODIAN [facility] Blood BLOOD SPECIMEN / Unknown Venipuncture / Unknown 03/19/2018 11:28 AM ATHLETIC EQUIPMENT CUSTODIAN 03/19/2018 11:32 AM ATHLETIC EQUIPMENT CUSTODIAN Sunny Delaney MD LAB - HEMATOLOGY ORDERABLES [facility] [address] [place] [address] * XR CHEST 1VW PORTABLE (03/19/2018 10:52 AM ATHLETIC EQUIPMENT CUSTODIAN) Anatomical Region Laterality Modality Chest Radiographic Alexsandra ging 03/19/2018 11:1 3 AM ATHLETIC EQUIPMENT CUSTODIAN Impressions 03/19/2018 11:13 AM ATHLETIC EQUIPMENT CUSTODIAN No acute disease. Reading Radiologist: Katt Kumar MD on 03/19/2018 at 11:13 AM Narrative 03/19/2018 11:13 AM ATHLETIC EQUIPMENT CUSTODIAN AP Portable Chest Indication: Chest pain Findings: [...] ORDERABLES * EKG 12-LEAD (03/19/2018 9:10 AM ATHLETIC EQUIPMENT CUSTODIAN) Ventricular Rate 71 BPM [facility] Atrial Rate 71 BPM [facility] P-R Interval 168 ms [facility] QRS Duration ms 80 ms [facility] Q-T Interval ms 406 ms [facility] QTC Calculation (Bezet) 441 ms [facility] Calculated P Baxley 13 degrees [facility] Calculated R Baxley -17 degrees [facility] Calculated T Baxley -2 degrees [facility] Interpretation EKG Normal sinus rhythm Minimal voltage criteria for LVH, may be normal variant Borderline ECG No previous ECGs available Confirmed by SERGEI OVALLES MD ([id number]) on 03/20/2018 8:25:36 AM [facility] 03/19/2018 9:10 AM ATHLETIC EQUIPMENT CUSTODIAN 03/20/2018 8:25 AM ATHLETIC EQUIPMENT CUSTODIAN Sunny Delaney MD ECG ORDERABLES [facility] [...] with contrast. $ Given 03/19/2018 12:39 PM ATHLETIC EQUIPMENT CUSTODIAN 10 mL 0.9% NaCl IV Flush Bag 0-100 mL, Intracatheter, ONCE PRN, Contrast flush, 1 dose, Starting on Sat03/19/18 at 1220, Until Sat03/19/18 at 1239, For administration with contrast $ Given 03/19/2018 12:39 PM ATHLETIC EQUIPMENT CUSTODIAN 50 mL aspirin (ASPIRIN) chew tablet 324 mg 324 mg, Oral, NOW, 1 dose, On Sat03/19/18 at 1200 $ Given 03/19/2018 11:53 AM ATHLETIC EQUIPMENT CUSTODIAN 324 mg HYDROcodone-acetaminophen (NORCO) 5-325 MG tablet 1 tablet 1 tablet, Oral, NOW, 1 dose, On Sat03/19/18 at 1200 $ Given 03/19/2018 11:53 AM ATHLETIC EQUIPMENT CUSTODIAN 1 tablet HYDROcodone-acetaminophen (NORCO) 5-325 MG tablet 1 tablet 1 tablet, Oral, NOW, 1 dose, On Sat03/19/18 at 1500 $ Given 03/19/2018 3:10 PM ATHLETIC EQUIPMENT CUSTODIAN 1 tablet iopamidol (ISOVUE 370) 76 % contrast Intravenous, CONTRAST ONCE, Starting on Sat03/19/18 at 1151, Until Sat03/19/18 at 1828 iopamidol (ISOVUE 370) 76 % contrast Intravenous, CONTRAST ONCE, Starting on Sat03/19/18 at 1220, Until Sat03/19/18 at 1828 $ Given - Contrast 03/19/2018 12:39 PM ATHLETIC EQUIPMENT CUSTODIAN 80 mL documented in this encounter Active and Recently Administered Medications Times are shown in ATHLETIC EQUIPMENT CUSTODIAN. Scheduled Medication Order 03/17/2018 03/18/2018 03/19/2018 aspirin [...]
--- OUTSIDE RECORDS SUMMARY | 2024-03-24 19:53 | XMS_ITS | Encounter Summary ---
Author Organization [facility] Address [address] [place] [address] Care Team Providers Care Asphalt Blender Name Role Phone AylinHaritha sarkar Patricia [facility] Primary Care Provider + Encounter Details Date Type Department Care Team (Late st Contact Info) Description 03/26/2023 Orders Only [facility] [id number] [facility] [address] [place] [address] Radha Oglesby, [facility] [address] [facility] [address] [place] [address] Morbid obesity (HCC) ; Bariatric [...] Sex Assigned at Female 03/18/2023 5:31 PM TERMINAL CLERK Gender Identity Female 03/18/2023 5:31 PM TERMINAL CLERK Sexual Orientation Straight 03/18/2023 5: 31 PM TERMINAL CLERK documented as of this encounter Functional Status [...] nonabsorption documented in this encounter Care Teams Asphalt Blender Relationship Specialty Start Date End Date Haritha Tse APRN-AUTO BODY STRAIGHTENER [address] [place] [address] PCP - General Nurse Practitioner 03/25/23 documented as of this encounter
--- OUTSIDE RECORDS SUMMARY | 2024-03-24 19:53 | XMS_ITS | Patient Health Summary ---
Author Organization [facility] [employer] Address [address] [place] [address] Care Team Providers Care Director Informatics Name Role Phone Haritha Tse APRN-COMMUNITY ENGAGEMENT COORDINATOR Primary Care Provider + Note from [facility],non-owned Affiliates and Associated Physician Practices is amultiple site organization consisting of ambulatory clinics and hospital sitesin [place], [place], [place] and [place]. This disclosure is being madepursuant to the Care Everywhere program and may not contain all information available regarding this patient. Last updated 17.[facility] [employer] Allergies No known active allergies Medications * [...] * vitamin D, ergocalciferol, (Drisdol) 1.25 MG (09561 UT) capsule(Started 03/26/2023) Take 1 (one) capsule [...] Sex Assigned at Female 03/18/2023 5:31 PM FIRE OFFICER Gender Identity Female 03/18/2023 5:31 PM FIRE OFFICER Sexual Orientation Straight 03/18/2023 5: 31 PM FIRE OFFICER Last Filed Vital Signs Vital Sign Reading Time Taken Comments Blood Pressure 138/95 04/15/2023 9:15 AM FIRE OFFICER Pulse 58 04/15/2023 9:15 AM FIRE OFFICER Temperature 36.4 ??C (97.6 ??F) 04/15/2023 8:46 AM CS T Respiratory Rate 18 04/15/2023 9:15 AM FIRE OFFICER Oxygen Saturation 98% 04/15/2023 9:15 AM FIRE OFFICER Inhaled Oxygen Concentration - - Weight 135.2 kg (298 lb) 01/16/2024 12:24 PM CDT Height 170.2 cm (5' 7 ) 01/16/2024 12:24 PM CDT Body Mass Index 46.67 01/16/2024 12:24 PM CDT Procedures * CARDIAC RHYTHM STRIP ORDER(Performed 05/03/2023) * PATHOLOGY/CYTOLOGY REPORT ORDER(Performed 04/16/2023) * HELICOBACTER PYLORI UREASE (STL)(Performed 04/15/2023) Performed for Morbid obesity (HCC) * CA EGD FLEX TRANSORAL W BX SNGL OR MULT(Performed 04/15/2023) * CA ED EGD FLEX TRANSORAL DX(Performed 04/15/2023) * [...] CARDIAC RHYTHM STRIP ORDER (05/03/2023 2:39 PM FIRE OFFICER) Narrative 05/03/2023 2:39 PM FIRE OFFICER Ordered by an unspecified provider. Scanned Document CARDIAC SERVICES ORD ERABLES * PATHOLOGY/CYTOLOGY REPORT ORDER (04/16/2023 10:06 PM FIRE OFFICER) Narrative 04/16/2023 10:06 PM FIRE OFFICER Ordered by an unspecified provider. Scanned Document LAB - PATHOLOGY/CYTO LOGY ORDERABLES * HELICOBACTER PYLORI UREASE (STL) (04/15/2023 8:39 AM FIRE OFFICER) Helicobacter pylori Urease Initial Negative Negative 04/16/2023 9:12 AM FIRE OFFICER [facility] Helicobacter pylori Urease Final Negative Negative 04/16/2023 9:12 AM FIRE OFFICER [facility] Microbiology GASTRIC BIOPSY SPECIMEN / Unknown 04/15/2023 8:39 AM FIRE OFFICER 04/15/2023 2:46 PM FIRE OFFICER Kaiser Salgado DO LAB - MICROBIOLOGY ORDERABLES [facility] [address] [id number] * EGD (04/15/2023 8:32 AM FIRE OFFICER) Report Endoscopy POC _ Patient Name: Azael , ??Tiarra Chino ? Procedure Date: 04/15/2023 8:32 AM ? Date of : 1970 ?Admit Type: Outpatient Age: 52 ? Room: ROOM 3 Gender: Female ?Attending MD: Kaiser Salgado DO, [id number] _ Procedure: ? Upper GI endoscopy Indications: [...] Procedure Code(s): ? --- Professional --- ? 19739 ? --- Technical --- ? 72861 Diagnosis Code(s): ? --- Professional --- ? K44.9 ? K29.70 ? Z09 ? Z98.0 ? --- Technical --- ? K44.9 ? K29.70 ? Z09 ? Z98.0 CPT copyright 2020 [employer]. All rights reserved. The codes documented in this report are preliminary and upon bladder cleaner review may be revised to meet current compliance requirements. _ Kaiser Salgado DO 04/15/2023 8:45:40 AM This report has been signed electronically. Number of Addenda: 0 Note Initiated On: 04/15/2023 8:32 AM [facility] 04/15/2023 8:32 AM FIRE OFFICER Narrative Procedure Note Kaiser Salgado DO - 04/15/2023 8:46 AM CST EGD completed. Biopsies pending. A full PDF copy of the report with photos is in the results and/or mediatab for your review. Please refer to this for full details of theprocedure. Follow up with Dr. Prajapati as scheduled. Kaiser Salgado DO 04/15/2023 8:46 AM Kaiser Salgado DO GI PROCEDURE ORDERA SAI [facility] END[facility] * FL UGI SERIES (03/25/2023 10:58 AM FIRE OFFICER) Anatomical Region Laterality Modality Abdomen Radiographic Alexsandra ging 03/25/2023 2:32 PM FIRE OFFICER Impressions 03/25/2023 3:19 PM FIRE OFFICER IMPRESSION: 1.Kay-en-Y bypass, small hiatal hernia without inducible reflux. 2.Gastric pouch larger than typically seen, however, I do not have a prior comparison upper gastrointestinal examination to assess for interval expansion of the pouch. Edited by Chloe Garcia on 03/25/2023 2:41 PM > Interpreting Provider: Morales Finn MD on 03/25/2023 3:19 PM Narrative 03/25/2023 3:19 PM FIRE OFFICER PROCEDURE: ??FL UGI SERIES DATE/TIME OF EXAM: [...] (ABNORMAL) VITAMIN D 25-HYDROXY (03/07/2023 1:27 PM FIRE OFFICER) Vitamin D, 25 Hydroxy <4.0(L) 30.0 - 100.0 ng/mL [facility] INSURANCE BILL Comment: Vitamin D deficiency has been defined by the [place] of Medicine and an Endocrine Society practice guideline as a level of serum 25-OH vitamin D less than 20 ng/mL (1,2). The Endocrine Society went on to further define vitamin D insufficiency as a level between 21 and 29 ng/mL (2). 1. IOM ([place] of Medicine). 2010. Dietary reference ?? intakes for calcium and D. [place]ray [place]: The ?? National [employer] Press. 2. Leonie MF, Hardeep NC, Ronel SARMIENTO, et al. ?? Evaluation, treatment, and prevention of vitamin D ?? deficiency: an Endocrine Society clinical practice ?? guideline. JCEM. 2010; 96(7):1911-30. Blood BLOOD SPECIMEN / Unknown 03/07/2023 1:27 PM FIRE OFFICER 03/07/2023 Narrative Resulting Agency Comment Lab Testing performed at: [facility] [address] ??[employer] [place] [phone] Suresh Prajapati MD LAB - CHEMISTRY ANNETTE ENGLISH [facility] INSURANCE BILL [address] [place] [address] * (ABNORMAL) FERRITIN (03/07/2023 1:27 PM FIRE OFFICER) Ferritin 386(H) 15 - 150 ng/mL [facility] INSURANCE BILL Blood BLOOD SPECIMEN / Unknown 03/07/2023 1:27 PM FIRE OFFICER 03/07/2023 Narrative Resulting Agency Comment Lab Testing performed at: [facility] [address] ??[employer] [place] [id number] Suresh Prajapati MD LAB - CHEMISTRY ANNETTE ENGLISH [facility] INSURANCE BILL [address] [place] [address] * VITAMIN K1 (03/07/2023 1:26 PM FIRE OFFICER) Vitamin K1 0.12 0.10 - 2.20 ng/mL [facility] INSURANCE BILL Blood BLOOD SPECIMEN / Unknown 03/07/2023 1:26 PM FIRE OFFICER 03/07/2023 Narrative [facility] INSURANCE BILL - 03/13/2023 12:07 PM FIRE OFFICER Test(s) 510951-Imsbwku K1 was developed and its performance characteristics determined by [facility]. It has not been cleared or approved by the Food and Drug Administration. Resulting Agency Comment Lab Testing performed at: [address] ??[facility] [phone] Suresh Prajapati MD LAB - CHEMISTRY ANNETTE ENGLISH Performing Organization Address [facility] Co de Phone Number [facility] INSURANCE BILL [address] [place] [address] * ZINC BLOOD (03/07/2023 1:26 PM FIRE OFFICER) [facility] Zinc, Plasma or Serum 56 44 - 115 ug/dL [facility] INSURANCE BILL Comment:Detection Limit = 5 Blood BLOOD SPECIMEN / Unknown 03/07/2023 1:26 PM FIRE OFFICER 03/07/2023 Narrative [facility] INSURANCE BILL - 03/15/2023 4:07 PM FIRE OFFICER Test(s) 726325-Asiqtu, Serum or Plasma; 789762-Dubi, Plasma or Serum was developed and its performance characteristics determined by [employer]. It has not been cleared or approved by the Food and Drug Administration. Resulting Agency Comment Lab Testing performed at: [address] ??[facility] [phone] Suresh Prajapati MD LAB - CHEMISTRY ANNETTE ENGLISH Performing Organization Address [facility] Co de Phone Number [facility] INSURANCE BILL [address] [place] [address] * (ABNORMAL) VITAMIN A (03/07/2023 1:26 PM FIRE OFFICER) Pathologist [facility] Vitamin A 13.7(L) 20.1 - 62.0 ug/dL [facility] INS[facility] B[facility] Comment: Reference intervals for vitamin A determined from [facility] internal studies. Individuals with vitamin A less than 20 ug/dL are considered vitamin A deficient and those with serum concentrations less than 10 ug/dL are considered severely deficient. ?. This test was developed and its performance characteristics determined by [facility]. It has not been cleared or approved by the Food and Drug Administration. Blood BLOOD SPECIMEN / Unknown 03/07/2023 1:26 PM FIRE OFFICER 03/07/2023 Narrative [facility] INSURANCE BILL - 03/13/2023 6:07 AM FIRE OFFICER Test(s) 014224-Mmstnmp E(Alpha Tocopherol); 917068- Vitamin E(Gamma Tocopherol); 012291-Cgn. B1, Whole Blood was developed and its performance characteristics determined by [facility]. It has not been cleared or approved by the Food and Drug Administration. Resulting Agency Comment Lab Testing performed at: [address] ??[facility] [id number] Suresh Prajapati MD LAB - CHEMISTRY ANNETTE ENGLISH [facility] INSURANCE BILL [address] [place] [address] * VITAMIN E (03/07/2023 1:26 PM FIRE OFFICER) Vitamin E Alpha Tocopherol 7.0 7.0 - 25.1 mg/L [facility] INSURANCE BILL Vitamin E Gamma Tocopherol 2.2 0.5 - 5.5 mg/L [facility] INSURANCE BILL Comment: Reference intervals for alpha and gamma-tocopherol determined from National Health and Nutrition Examination Survey, 6291-8532. Individuals with alpha-tocopherol levels less than 5.0 mg/L are considered vitamin E deficient. Blood BLOOD SPECIMEN / Unknown 03/07/2023 1:26 PM FIRE OFFICER 03/07/2023 Narrative [facility] INSURANCE BILL - 03/13/2023 6:07 AM FIRE OFFICER Test(s) 816034-Nrlsjvi E(Alpha Tocopherol); 156212- Vitamin E(Gamma Tocopherol); 676414-Box. B1, Whole Blood was developed and its performance characteristics determined by [employer]. It has not been cleared or approved by the Food and Drug Administration. Resulting Agency Comment Lab Testing performed at: [address] ??[facility] [phone] Suresh Prajapati MD LAB - CHEMISTRY ANNETTE ENGLISH Performing Organization Address [facility] de Phone Number [facility] INSURANCE BILL [address] [place] [address] * (ABNORMAL) VITAMIN B1 (03/07/2023 1:26 PM FIRE OFFICER) Vitamin B1 Whole Blood 57.5(L) 66.5 - 200.0 nmol/L [facility] INSURANCE BILL Blood BLOOD SPECIMEN / Unknown 03/07/2023 1:26 PM FIRE OFFICER 03/07/2023 Narrative [facility] INSURANCE B[facility] - 03/13/2023 6:07 AM FIRE OFFICER Test(s) 477274-Ukxxnhl E(Alpha Tocopherol); 635705- Vitamin E(Gamma Tocopherol); 905757-Ptk. B1, Whole Blood was developed and its performance characteristics determined by [employer]. It has not been cleared or approved by the Food and Drug Administration. Resulting Agency Comment Lab Testing performed at: [address] ??[facility] [id number] Suresh Prajapati MD LAB - CHEMISTRY ANNETTE ENGLISH Performing Organization Address [facility] Co de Phone Number [facility] INSURANCE BILL [address] [place] [address] * COPPER BLOOD (03/07/2023 1:26 PM FIRE OFFICER) Copper 119 80 - 158 ug/dL [facility] INSURANCE BILL Comment:Detection Limit = 5 Blood BLOOD SPECIMEN / Unknown 03/07/2023 1:26 PM FIRE OFFICER 03/07/2023 Narrative [facility] INSURANCE BILL - 03/15/2023 4:07 PM FIRE OFFICER Test(s) 038203-Bmzuud, Serum or Plasma; 046496-Cppd, Plasma or Serum was developed and its performance characteristics determined by [facility]. It has not been cleared or approved by the Food and Drug Administration. Resulting Agency Comment Lab Testing performed at: [facility] ??[facility] [id number] Suresh Prajapati MD LAB - CHEMISTRY ANNETTE ENGLISH [facility] INSURANCE BILL [address] [place] [address] * (ABNORMAL) CBC WITH DIFFERENTIAL (03/07/2023 1:26 PM FIRE OFFICER) Only the most recent of4 resultswithin the [...] BLOOD SPECIMEN / Unknown 03/07/2023 1:26 PM FIRE OFFICER 03/07/2023 Narrative Resulting Agency Comment Lab Testing performed at: [facility] ??[facility] [id number] Suresh Prajapati MD LAB - HEMATOLOGY ORD ERABLES [facility] INSURANCE BILL [address] [place] [address] * (ABNORMAL) COMPREHENSIVE METABOLIC PANEL (03/07/2023 1:26 PM FIRE OFFICER) Only the most recent of4 resultswithin the [...] BLOOD SPECIMEN / Unknown 03/07/2023 1:26 PM FIRE OFFICER 03/07/2023 Narrative Resulting Agency Comment Lab Testing performed at: [facility] [address] ??[facility] [id number] Suresh Prajapati MD LAB - CHEMISTRY ANNETTE ENGLISH [facility] INSURANCE BILL [address] [place] [address] * PREALBUMIN (03/07/2023 1:26 PM FIRE OFFICER) Prealbumin 15 10 - 36 mg/dL [facility] INSURANCE BILL Blood BLOOD SPECIMEN / Unknown 03/07/2023 1:26 PM FIRE OFFICER 03/07/2023 Narrative Resulting Agency Comment Lab Testing performed at: [facility] [address] ??[facility] [id number] Suresh Prajapati MD LAB - CHEMISTRY ANNETTE ENGLISH [facility] INSURANCE BILL [address] [place] [address] * (ABNORMAL) IRON + TIBC PANEL (03/07/2023 1:26 PM FIRE OFFICER) TIBC 219(L) 250 - 450 ug/dL [facility] INSURANCE BILL UIBC 192 131 - 425 ug/dL [facility] INSURANCE BILL Iron 27 27 - 159 ug/dL [facility] INSURANCE BILL Iron Saturation 12(L) 15 - 55 % [facility] INSURANCE BILL Blood BLOOD SPECIMEN / Unknown 03/07/2023 1:26 PM FIRE OFFICER 03/07/2023 Narrative Resulting Agency Comment Lab Testing performed at: [facility] [address] ??[facility] [phone] Suresh Prajapati MD LAB - CHEMISTRY ANNETTE ENGLISH [facility] INSURANCE BILL [address] [place] [address] * VITAMIN B12 (03/07/2023 1:26 PM FIRE OFFICER) Vitamin B12 299 232 - 1,245 pg/mL [facility] INSURANCE BILL Blood BLOOD SPECIMEN / Unknown 03/07/2023 1:26 PM FIRE OFFICER 03/07/2023 Narrative Resulting Agency Comment Lab Testing performed at: [facility] [employer] [address] [facility] ??[facility] [phone] Suresh Prajapati MD LAB - CHEMISTRY ANNETTE ENGLISH Performing Organization Address City/[facility]/ZIP Co de Phone Number [facility] INSURANCE BILL [address] [place] [address] * XR PELVIS W RIGHT HIP 2VW (04/03/2018 5:05 AM FIRE OFFICER) Anatomical Region Laterality Modality Radiographic Alexsandra ging 04/03/2018 8:22 AM FIRE OFFICER Impressions 04/03/2018 8:22 AM FIRE OFFICER No fracture. Reading Radiologist: Katt Kumar MD on 04/03/2018 at 8:22 AM Narrative 04/03/2018 8:22 AM FIRE OFFICER Pelvis AP one view right hip 2 [...] KNEE 4+ VW RIGHT (04/03/2018 5:05 AM FIRE OFFICER) Anatomical Region Laterality Modality Lower Extremity Radiographic Alexsandra ging 04/03/2018 7:44 AM FIRE OFFICER Impressions 04/03/2018 7:45 AM FIRE OFFICER Degenerative change. Small effusion. Reading Radiologist: Katt Kumar MD on 04/03/2018 at 7:45 AM Narrative 04/03/2018 7:45 AM FIRE OFFICER Right knee 4 views complete INDICATION: Right [...] CERVICAL SPINE NON CONTRAST (04/03/2018 4:33 AM FIRE OFFICER) Anatomical Region Laterality Modality Spine Computed Tomogra phy 04/03/2018 7:50 AM FIRE OFFICER Impressions 04/03/2018 8:50 AM FIRE OFFICER No fracture. Edited by Judith Brumfield on 04/03/2018 8:05 AM Reading Radiologist: Katt Kumar MD on 04/03/2018 at 8:50 AM Narrative 04/03/2018 8:[address] CERVICAL SPINE WITHOUT IV CONTRAST INDICATION: [...] CT HEAD NON CONTRAST (04/03/2018 4:33 AM FIRE OFFICER) Anatomical Region Laterality Modality Head Computed Tomogra phy 04/03/2018 7:46 AM FIRE OFFICER Impressions 04/03/2018 7:47 AM FIRE OFFICER Unremarkable unenhanced CT scan of the brain. Reading Radiologist: Katt Kumar MD on 04/03/2018 at 7:47 AM Narrative 04/03/2018 7:[address] Head Noncontrast Indication: Severe head pain, trauma Technique: CT images of the brain were obtained at 5 mm intervals without contrast. Preliminary report was provided by [facility]. Findings: There is no radiographic evidence [...] without contrast. Preliminary report was provided by [facility]. Findings: There is no radiographic evidence [...] BLD PNL 3 INHOUSE (04/03/2018 4:09 AM [facility]) Acetaminophen <2.0(L) 10.0 - 30.0 ug/mL 04/03/2018 4:33 AM [facility] Ethanol 107(H) <10 mg/dL 04/03/2018 4:33 AM [facility] Salicylate <1.7 <20.0 mg/dL 04/03/2018 4:33 AM [facility] Blood BLOOD SPECIMEN / Unknown Venipuncture / Unknown 04/03/2018 4:09 AM FIRE OFFICER 04/03/2018 4:13 AM [facility] Narrative [facility] - 04/03/2018 4:33 AM [facility] ACETAMINOPHEN COMMENT Critical values: 4 Hours [...] may alter the peak level. Contact the [place] [facility] at or reserved for healthcare professionals to assist you in evaluating potentially toxic acetaminophen levels. Waldemar Marshall DO LAB - CHEMISTRY ANNETTE ENGLISH [facility] [address] [place] [address] * PT PTT PANEL (04/03/2018 4:09 AM [facility]) PT 11.0 9.5 - 11.6 sec 04/03/2018 4:28 AM [facility] INR 1.0 0.9 - 1.1 04/03/2018 4:28 AM [facility] PTT 21.2 21.0 - 32.0 sec 04/03/2018 4:28 AM [facility] Blood BLOOD SPECIMEN / Unknown Venipuncture / Unknown 04/03/2018 4:09 AM FIRE OFFICER 04/03/2018 4:13 AM FIRE OFFICER Narrative [facility] - 04/03/2018 4:28 AM FIRE OFFICER Conventional Warfarin Anticoagulant Therapy: INR Reference Range: ??2.0-3.0 Intensive Warfarin Anticoagulant Therapy: INR Reference Range: ? 2.5-3.5 Heparin Therapeutic Range for PTT: 47.7 - 68.6 seconds. Waldemar Marshall DO LAB - COAGULATION OR DERABLES Performing Organization Address City/[facility] Co de Phone Number [facility] [address] [place] [address] * HCG BLOOD QUALITATIVE (04/03/2018 4:09 AM FIRE OFFICER) Pathologist [facility] HCG Qual Serum Negative Negative 04/03/2018 4:34 AM FIRE OFFICER [facility] Blood BLOOD SPECIMEN / Unknown Venipuncture / Unknown 04/03/2018 4:09 AM FIRE OFFICER 04/03/2018 4:13 AM FIRE OFFICER Waldemar Marshall DO LAB - CHEMISTRY ORDE RABLES Performing Organization Address [facility] de Phone Number [facility] [address] [place] [address] * CARDIAC EKG ORDER (03/21/2018 1:54 AM FIRE OFFICER) Only the most recent of2 resultswithin the time period is included. Narrative 03/21/2018 1:54 AM FIRE OFFICER Ordered by an unspecified provider. Scanned Document CARDIAC SERVICES ORD ERABLES * TROPONIN I (03/19/2018 2:51 PM FIRE OFFICER) Only the most recent of3 resultswithin the time period is included. Troponin I <0.015 0.000 - 0.049 ng/mL 03/19/2018 3:16 PM FIRE OFFICER [facility] Blood BLOOD SPECIMEN / Unknown Venipuncture / Unknown 03/19/2018 2:51 PM FIRE OFFICER 03/19/2018 2:51 PM FIRE OFFICER Narrative [facility] - 03/19/2018 3:16 PM FIRE OFFICER Note: Diagnosis of myocardial infarction requires symptoms [...] MD LAB - CHEMISTRY O RDERABLES [facility] [address] [place] [address] * CT CHEST PE (03/19/2018 12:50 PM FIRE OFFICER) Anatomical Region Laterality Modality Chest Computed Tomogra phy 03/19/2018 1:25 PM FIRE OFFICER Impressions 03/19/2018 1:27 PM FIRE OFFICER There is no evidence of pulmonary embolus. This examination was transcribed using the [employer] voice recognition system without human flame channeler. ??In an effort to expedite patient care, this report has not been adjusted for typographical, grammatical, and syntax by a trained medical specialist. Reading Radiologist: Tiarra Spaulding MD on 03/19/2018 at 1:27 PM Narrative 03/19/2018 1:[address] Chest with Contrast INDICATION:Chest pain. Patient [...] embolus. This examination was transcribed using the [employer] voice recognition system without human flame channeler. In an effort to expedite patient care, this report has not been adjusted for typographical, grammatical, and syntax by a trained medical specialist. Reading Radiologist: Tiarra Spaulding MD on 03/19/2018 at 1:27 PM Sunny Delaney MD CT ORDERABLES * POTASSIUM BLOOD (03/19/2018 11:57 AM FIRE OFFICER) Potassium 3.7 3.5 - 5.1 mmol/L 03/19/2018 12:08 PM FIRE OFFICER [facility] Blood BLOOD SPECIMEN / Unknown Venipuncture / Unknown 03/19/2018 11:57 AM FIRE OFFICER 03/19/2018 12:00 PM FIRE OFFICER Sunny Delaney MD LAB - CHEMISTRY O RDERABLES [facility] [address] [place] [address] * (ABNORMAL) NT-PRO BNP (03/19/2018 11:28 AM FIRE OFFICER) NT-proBNP 946.0(H) <300.0 pg/mL 03/19/2018 11:55 AM FIRE OFFICER [facility] Blood BLOOD SPECIMEN / Unknown Venipuncture / Unknown 03/19/2018 11:28 AM FIRE OFFICER 03/19/2018 11:32 AM FIRE OFFICER Narrative [facility] - 03/19/2018 11:55 AM FIRE OFFICER NT-proBNP Patient Age ? Acute HF Unlikely [...] MD LAB - CHEMISTRY O RDERABLES [facility] [address] [place] [address] * (ABNORMAL) D-DIMER (03/19/2018 11:28 AM FIRE OFFICER) Pathologist [facility] D-Dimer 1.16(H) 0.17 - 0.5 mg/L FEU 03/19/2018 11:45 AM [facility] Blood BLOOD SPECIMEN / Unknown Venipuncture / Unknown 03/19/2018 11:28 AM FIRE OFFICER 03/19/2018 11:32 AM FIRE OFFICER Narrative [facility] - 03/19/2018 11:45 AM FIRE OFFICER The [employer] D-Dimer assay is intended for [...] Delaney MD LAB - COAGULATION ORDERABLES [facility] [address] [place] [id number] * XR CHEST 1VW PORTABLE (03/19/2018 10:52 AM FIRE OFFICER) Only the most recent of2 resultswithin the time period is included. Anatomical Region Laterality Modality Chest Radiographic Alexsandra ging 03/19/2018 11:1 3 AM FIRE OFFICER Impressions 03/19/2018 11:13 AM FIRE OFFICER No acute disease. Reading Radiologist: Katt Kumar MD on 03/19/2018 at 11:13 AM Narrative 03/19/2018 11:13 AM FIRE OFFICER AP Portable Chest Indication: Chest pain Findings: [...] ORDERABLES * EKG 12-LEAD (03/19/2018 9:10 AM FIRE OFFICER) Only the most recent of2 resultswithin the time period is included. Ventricular Rate 71 BPM [facility] Atrial Rate 71 BPM [facility] P-R Interval 168 ms [facility] QRS Duration ms 80 ms [facility] Q-T Interval ms 406 ms [facility] QTC Calculation (Bezet) 441 ms [facility] Calculated P Erie 13 degrees [facility] Calculated R Erie -17 degrees [facility] Calculated T Erie -2 degrees [facility] Interpretation EKG Normal sinus rhythm Minimal voltage criteria for LVH, may be normal variant Borderline ECG No previous ECGs available Confirmed by SERGEI OVALLES MD ([id number]) on 03/20/2018 8:25:36 AM [facility] 03/19/2018 9:10 AM FIRE OFFICER 03/20/2018 8:25 AM [facility] Sunny Delaney MD ECG ORDERABLES [facility] * (ABNORMAL) DRUG SCREEN TOX URINE PANEL (03/17/2018 6:17 PM FIRE OFFICER) Amphetamines Screen Urine Not Detected Not Detected 03/17/2018 7:09 PM [facility] Barbiturates Screen Urine Not Detected Not Detected 03/17/2018 7:09 PM [facility] Benzodiazepines Screen Urine Detected(A) Not Detected 03/17/2018 7:09 PM [facility] Cannabinoids Screen Urine Detected(A) Not Detected 03/17/2018 7:09 PM [facility] Cocaine Screen Urine Detected(A) Not Detected 03/17/2018 7:09 PM [facility] Methadone Screen Urine Not Detected Not Detected 03/17/2018 7:09 PM [facility] Opiate Screen Urine Not Detected Not Detected 03/17/2018 7:09 PM [facility] Phencyclidine Screen Urine Not Detected Not Detected 03/17/2018 7:09 PM [facility] Urine URINE / Unknown Collection / Unknown 03/17/2018 6:17 PM FIRE OFFICER 03/17/2018 6:34 PM FIRE OFF[address]ER Narrative [facility] - 03/17/2018 7:09 PM FIRE OFFICER This drug screen is designed for MEDICAL [...] URINE CHEMISTR Y ORDERABLES Performing Organization Address City/State/[facility] Co de Phone Number [facility] [address] [place] [address] * HCG BETA BLOOD QUANTITATIVE (03/17/2018 9:59 AM FIRE OFFICER) [facility] hCG Quantitative <1 mIU/mL 03/17/20 18 10:47 AM FIRE OFFICER [facility] Blood BLOOD SPECIMEN / Unknown Venipuncture / Unknown 03/17/2018 9:59 AM FIRE OFFICER 03/17/2018 10:02 AM FIRE OFFICER Narrative [facility] - 03/17/2018 10:47 AM FIRE OFFICER ? hCG Reference Range, mIU/mL: ? Males [...] MD LAB - CHEMISTRY ANNETTE ENGLISH [facility] [address] [place] [address] Care Teams Director Informatics Relationship Specialty Start Date End Date Haritha Tse, TOWEL SEWER-COMMUNITY ENGAGEMENT COORDINATOR [address] [place] [address] PCP - General Nurse Practitioner 03/25/23
--- OUTSIDE RECORDS SUMMARY | 2024-03-24 19:53 | XMS_ITS | Encounter Summary ---
Author Organization [facility] Health Address [address] [facility] [place] [address] Care Team Providers Care Clam Grower Name Role Phone Aylinmello Haritha Patricia MARAVILLA-ENERGY ADVISOR Primary Care Provider + Reason for Referral * Radiology Services (Routine) - Closed Specialty Diagnoses / Procedures Referred By Contac t Referred To Contact Diagnoses Bariatric surgery status Procedures [place] [address] [address] [place] [address] Referral ID Status Reason Start Date Expiration Date Visits Re quested Visits Authorized [id number] Closed 03/07/2023 03/06/2024 1 1 RNATIONAL SOURCING MANAGER Reason for Visit * Radiology Services (Routine) - Closed Specialty Diagnoses / Procedures Referred By Contac t Referred To Contact Diagnoses Bariatric surgery status Procedures [place] [address] [address] [place] [address] Referral ID Status Reason Start Date Expiration Date Visits Re quested Visits Authorized [id number] Closed 03/07/2023 03/06/2024 1 1 Encounter Details Date Type Department Care Team (Latest Contact Info) Description 03/25/2023 10:18 AM INTERNATIONAL SOURCING MANAGER - 03/25/2023 11:59 PM INTERNATIONAL SOURCING MANAGER Hospital Encounter [facility] Health Imaging Services - Radiology [address] [place] [address] [place] [address] [address] [place] [address] Discharge Disposition: Home or Self Care Social History Tobacco Use Types Packs/Day Years Used Date Smoking Tobacco: Never Smokeless Tobacco: Never Alcohol Use Standard Drinks/Week Comments Yes 10 (1 standard drink = 0.6 oz pu re alcohol) bottle of wine daily Sex and Gender Information Value Date Recorded Sex Assigned at Female 03/18/2023 5:31 PM INTERNATIONAL SOURCING MANAGER Gender Identity Female 03/18/2023 5:31 PM INTERNATIONAL SOURCING MANAGER Sexual Orientation Straight 03/18/2023 5: 31 PM INTERNATIONAL SOURCING MANAGER documented as of this encounter Functional Status [...] FL UGI SERIES Routine 03/25/2023 10:58 AM INTERNATIONAL SOURCING MANAGER Bariatric surgery status documented in this encounter Results * FL UGI SERIES (03/25/2023 10:58 AM INTERNATIONAL SOURCING MANAGER) Anatomical Region Laterality Modality Abdomen Radiographic Alexsandra ging 03/25/2023 2:32 PM INTERNATIONAL SOURCING MANAGER Impressions 03/25/2023 3:19 PM INTERNATIONAL SOURCING MANAGER IMPRESSION: 1.Adrienne-en-Y bypass, small hiatal hernia without inducible reflux. 2.Gastric pouch larger than typically seen, however, I do not have a prior comparison upper gastrointestinal examination to assess for interval expansion of the pouch. Edited by Chloe Garcia on 03/25/2023 2:41 PM > Interpreting Provider: Morales Finn MD on 03/25/2023 3:19 PM Narrative 03/25/2023 3:19 PM INTERNATIONAL SOURCING MANAGER PROCEDURE: ??FL UGI SERIES DATE/TIME OF EXAM: [...] status documented in this encounter Care Teams Clam Grower Relationship Specialty Start Date End Date Haritha Tse, WAREHOUSE LABORER-ENERGY ADVISOR [address] [place] [address] [place] [id number] PCP - General Nurse Practitioner 03/25/23 documented as of this encounter
--- OUTSIDE RECORDS SUMMARY | 2024-03-24 19:53 | XMS_ITS | Encounter Summary ---
Author Organization [facility] Health Address [address] [place] [address] Care Team Providers Care Strategic Communications Manager Name Role Phone Haritha Tse Patricia MARAVILLA-ZIGZAG TUNNEL ELASTIC OPERATOR Primary Care Provider + Encounter Details Date Type Department Care Team (Late st Contact Info) Description 09/12/2023 9:00 AM CDT Office Visit [facility] Management Services [address] [place] [address] [address] [place] [address] Morbid obesity (HCC) (Primary Dx) Social History Tobacco Use Types Packs/Day Years Used Date Smoking Tobacco: Never Smokeless Tobacco: Never Alcohol Use Standard Drinks/Week Comments Not Currently 10 (1 standard drink = 0.6 oz pure alcohol) Havent drank since Sex and Gender Information Value Date Recorded Sex Assigned at Female 03/18/2023 5:31 PM DIRECTOR OF PRODUCT DESIGN Gender Identity Female 03/18/2023 5:31 PM DIRECTOR OF PRODUCT DESIGN Sexual Orientation Straight 03/18/2023 5: 31 PM DIRECTOR OF PRODUCT DESIGN documented as of this encounter Functional Status [...] this encounter Progress Notes * Darshana Prado, LINE PERSON - 09/10/2023 6:44 AM CDT Name: Tiarra [...] identified Job Functioning: 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 Has [employer]. Pt is currently on disability for blood clots since 2019. Patient has no hx of work-adjustment difficulties on any of her jobs. Mental Health Issues: Pt reported she had some Sx of anxiety and depression when she was first put on disability. She explained that she was living in [place] at the time and lost her home and job and had to move back to [facility]. She doesn't recall taking any medications at that time or ever but [facility] notes state she was taking lexapro. The pt stated when she moved back to [facility], she was drinking more and noted she could drink a bottle of wine per day. When asked about prior cocaine use, the pt noted she did it several times when her sister offered it to her at this time of her life. She noted it was not for me and has not done any since that time period. [facility] notes stated she has had a couple [...] are to be eliminated entirely. Weight and Eenuzp-Qvhk-Isrtyup History: Family Hx of Obesity: yes, her [...] Clearance is therefore granted. Darshana Prado LPC, [facility] Licensed Professional Counselor Board Certified Bariatric Counselor Psychological Review Cleared_X_ Not cleared, additional visit(s) required ___ Bariatric Case Conference review required ___ Follow up scheduled ____ documented in this encounter Plan of Treatment Not on file documented as of this encounter Visit Diagnoses Diagnosis Morbid obesity (HCC)- Primary Morbid obesity documented in this encounter Care Teams Strategic Communications Manager Relationship Specialty Start Date End Date Haritha Tse, KITCHENHAND-ZIGZAG TUNNEL ELASTIC OPERATOR [address] [place] [address] PCP - General Nurse Practitioner 03/25/23 documented as of this encounter
--- OUTSIDE RECORDS SUMMARY | 2024-03-24 19:53 | XMS_ITS | Encounter Summary ---
Author Organization [facility] Address [address] [place] [address] Care Team Providers Care Eyelet Machine Operator Name Role Phone Ralph Johnson MD Primary Care Provider [phone] Reason for Referral * Radiology Services (Routine) - Closed Specialty Diagnoses / Procedures Referred By Contac t Referred To Contact Diagnoses Bariatric surgery status Procedures [place] [address] [place] [address] Referral ID Status Reason Start Date Expiration Date Visits Re quested Visits Authorized [id number] Closed 03/07/2023 03/06/2024 1 1 GHT CAR BUILDER * Procedure (Routine) - Closed Specialty Diagnoses / Procedures Referred By Contac t Referred To Contact Diagnoses Bariatric surgery status Procedures EGD CT ED EGD FLEX TRANSORAL DX CT EGD FLEX TRANSORAL W BX [place] [address] [place] [address] Kaiser Salgado, [address] [address] Referral ID Status Reason Start Date Expiration Date Visits Re quested Visits Authorized [id number] Closed 04/15/2023 07/15/2023 1 1 GHT CAR BUILDER Reason for Visit * Reason Comments Establish Care Encounter Details Date Type Department Care Team (Late st Contact Info) Description 03/07/2023 12:00 PM FREIGHT CAR BUILDER Office Visit [facility] [address] [facility], [address] [place] [address] [place] [address] [place], [place] [id number] Intestinal malabsorption, unspecified type (HCC) (Primary Dx); Bariatric surgery status Social History Tobacco Use Types Packs/Day Years Used Date Smoking Tobacco: Never Smokeless Tobacco: Never Alcohol Use Standard Drinks/Week Comments Yes 10 (1 standard drink = 0.6 oz pu re alcohol) bottle of wine daily Sex and Gender Information Value Date Recorded Sex Assigned at Female 03/18/2023 5:31 PM FREIGHT CAR BUILDER Gender Identity Female 03/18/2023 5:31 PM FREIGHT CAR BUILDER Sexual Orientation Straight 03/18/2023 5: 31 PM FREIGHT CAR BUILDER documented as of this encounter Last Filed Vital Signs Vital Sign Reading Time Taken Comments Blood Pressure 123/87 03/07/2023 11:28 AM FREIGHT CAR BUILDER Pulse 75 03/07/2023 11:28 AM FREIGHT CAR BUILDER Temperature 36.7 ??C (98 ??F) 03/07/2023 11: 28 AM FREIGHT CAR BUILDER Respiratory Rate - - Oxygen Saturation 98% 03/07/2023 11: 28 AM FREIGHT CAR BUILDER Inhaled Oxygen Concentration - - Weight 136.9 kg (301 lb 12.8 oz) 2022 11:28 AM FREIGHT CAR BUILDER Height 170.2 cm (5' 7 ) 03/07/2023 11:2 8 AM FREIGHT CAR BUILDER Body Mass Index 47.27 03/07/2023 11:28 AM FREIGHT CAR BUILDER documented in this encounter Functional Status Functional [...] past including medical, exercise and dietary without alf success. Pt has developed multiple comorbid conditions [...] procedures or operations in the perioperative and alf periods. Questions were answered. Bariatric Surgery Patient [...] network. The patient will experience successful and watermaster weight loss when these components along with bariatric surgery are followed. The patient has had the above discussions with multiple program team members including surgeon, hair stylist, bariatric nurse and mental health tumbling barrel painter. Impression: Morbid obesity with above listed comorbidities. Plan: Based on discussion with the patient and consideration of the patients medical history and diagnosis of morbid obesity the patient is an appropriate candidate for bariatric surgery. Recommendation isfor: Laparoscopic revision of gastric bypass Liquid Protein Diet: Yes1 Week Boiler Or Engine Operator: Yes Additional Testing: Yes GI: - hx of intermittent heartburn and ORYGB : cont prn treatment - EGD ordered - UGI ordered - ORYGB -> LLRYGB / CT/SR CV: - Hx of HTN: cont with [...] and following preoperative liquid protein diet Comments: Shrimp Peeler visit: per insurance requirements Behavioral health visit: per insurance requirements Perioperative instructions: Hospitalist Consult: yes Limited incision, 2S, no calvin, 2 day stay Suresh Prajapati MD 03/07/2023 GHT CAR BUILDER documented in this encounter Plan of Treatment Scheduled Orders Name Type Priority Associated Diagnoses Orde r Schedule EGD GI Routine Bariatric surgery status 1 Occurrences starting 03/07/2023 until 03/06/2024 documented as of this encounter Procedures Procedure Name Priority Date/Time Associated Diagnosis Comments VITAMIN D 25-HYDROXY Routine 03/07/2023 1:27 PM FREIGHT CAR BUILDER Bariatric surgery status Intestinal malabsorption, unspecified type (HCC) FERRITIN Routine 03/07/2023 1:27 PM FREIGHT CAR BUILDER Bariatric surgery status Intestinal malabsorption, unspecified type (HCC) VITAMIN K1 Routine 03/07/2023 1:26 PM FREIGHT CAR BUILDER Bariatric surgery status Intestinal malabsorption, unspecified type (HCC) ZINC BLOOD Routine 03/07/2023 1:26 PM FREIGHT CAR BUILDER Bariatric surgery status Intestinal malabsorption, unspecified type (HCC) VITAMIN A Routine 03/07/2023 1:26 PM FREIGHT CAR BUILDER Bariatric surgery status Intestinal malabsorption, unspecified type (HCC) VITAMIN E Routine 03/07/2023 1:26 PM FREIGHT CAR BUILDER Bariatric surgery status Intestinal malabsorption, unspecified type (HCC) VITAMIN B1 Routine 03/07/2023 1:26 PM FREIGHT CAR BUILDER Bariatric surgery status Intestinal malabsorption, unspecified type (HCC) COPPER BLOOD Routine 03/07/2023 1:26 PM FREIGHT CAR BUILDER Bariatric surgery status Intestinal malabsorption, unspecified type (HCC) CBC W AUTO DIFFERENTIAL Routine 03/07/2023 1:26 PM FREIGHT CAR BUILDER Bariatric surgery status Intestinal malabsorption, unspecified type (HCC) COMPREHENSIVE METABOLIC PANEL Routine 03/07/2023 1:26 PM FREIGHT CAR BUILDER Bariatric surgery status Intestinal malabsorption, unspecified type (HCC) PREALBUMIN Routine 03/07/2023 1:26 PM FREIGHT CAR BUILDER Bariatric surgery status Intestinal malabsorption, unspecified type (HCC) IRON + TIBC PANEL Routine 03/07/2023 1:2 6 PM FREIGHT CAR BUILDER Bariatric surgery status Intestinal malabsorption, unspecified type (HCC) VITAMIN B12 Routine 03/07/2023 1:26 PM FREIGHT CAR BUILDER Bariatric surgery status Intestinal malabsorption, unspecified type (HCC) documented in this encounter Results * FL UGI SERIES (03/25/2023 10:58 AM FREIGHT CAR BUILDER) Anatomical Region Laterality Modality Abdomen Radiographic Alexsandra ging 03/25/2023 2:32 PM FREIGHT CAR BUILDER Impressions 03/25/2023 3:19 PM FREIGHT CAR BUILDER IMPRESSION: 1.Sedrick-en-Y bypass, small hiatal hernia without inducible reflux. 2.Gastric pouch larger than typically seen, however, I do not have a prior comparison upper gastrointestinal examination to assess for interval expansion of the pouch. Edited by Chloe Garcia on 03/25/2023 2:41 PM > Interpreting Provider: Morales Finn MD on 03/25/2023 3:19 PM Narrative 03/25/2023 3:19 PM FREIGHT CAR BUILDER PROCEDURE: ??FL UGI SERIES DATE/TIME OF EXAM: [...] (ABNORMAL) VITAMIN D 25-HYDROXY (03/07/2023 1:27 PM FREIGHT CAR BUILDER) Vitamin D, 25 Hydroxy <4.0(L) 30.0 - 100.0 ng/mL [facility] INSURANCE BILL Comment: Vitamin D deficiency has been defined by the [place] of [employer] and an Endocrine Society practice guideline as a level of serum 25-OH vitamin D less than 20 ng/mL (1,2). The Endocrine Society went on to further define vitamin D insufficiency as a level between 21 and 29 ng/mL (2). 1. IOM ([place] of [employer]). 2010. Dietary reference ?? intakes for calcium and D. [place]: The ?? National Academies Press. 2. Leonie MF, Hardeep NC, Ronel SARMIENTO, et al. ?? Evaluation, treatment, and prevention of vitamin D ?? deficiency: an Endocrine Society clinical practice ?? guideline. JCEM. 2010; 96(7):1911-30. Blood BLOOD SPECIMEN / Unknown 03/07/2023 1:27 PM FREIGHT CAR BUILDER 03/07/2023 Narrative Resulting Agency Comment [facility] at: [facility] [address] [facility] ??[facility] [id number] Suresh Prajapati MD LAB - CHEMISTRY ANNETTE ENGLISH [facility] INSURANCE BILL [address] [place] [address] * (ABNORMAL) FERRITIN (03/07/2023 1:27 PM FREIGHT CAR BUILDER) Ferritin 386(H) 15 - 150 ng/mL [facility] INSURANCE BILL Blood BLOOD SPECIMEN / Unknown 03/07/2023 1:27 PM FREIGHT CAR BUILDER 03/07/2023 Narrative Resulting Agency Comment Lab Testing performed at: [place] [id number] [facility] ??[facility]ly [facility] [id number] Suresh Prajapati MD LAB - CHEMISTRY ANNETTE ENGLISH Performing Organization Address [facility] de Phone Number [facility] INSURANCE BILL [address] [place] [address] * ZINC BLOOD (03/07/2023 1:26 PM FREIGHT CAR BUILDER) Zinc, Plasma or Serum 56 44 - 115 ug/dL [facility] INSURANCE BILL Comment:Detection Limit = 5 Blood BLOOD SPECIMEN / Unknown 03/07/2023 1:26 PM FREIGHT CAR BUILDER 03/07/2023 Narrative [facility] INSURANCE BILL - 03/15/2023 4:07 PM FREIGHT CAR BUILDER Test(s) 909950-Gbdaqf, Serum or Plasma; 264383-Mcsp, Plasma or Serum was developed and its performance characteristics determined by [employer]. It has not been cleared or approved by the Food and Drug Administration. Resulting Agency Comment Lab Testing performed at: [address] ??[facility] [id number] Suresh Prajapati MD LAB - CHEMISTRY ANNETTE ENGLISH Performing Organization Address [facility] de Phone Number [facility] INSURANCE BILL [address] [place] [address] * VITAMIN K1 (03/07/2023 1:26 PM FREIGHT CAR BUILDER) Vitamin K1 0.12 0.10 - 2.20 ng/mL [facility] INSURANCE BILL Blood BLOOD SPECIMEN / Unknown 03/07/2023 1:26 PM FREIGHT CAR BUILDER 03/07/2023 Narrative [facility] INSURANCE BILL - 03/13/2023 12:07 PM FREIGHT CAR BUILDER Test(s) 801258-Bcyyfdq K1 was developed and its performance characteristics determined by [employer]. It has not been cleared or approved by the Food and Drug Administration. Resulting Agency Comment Lab Testing performed at: [address] ??[facility] [id number] Suresh Prajapati MD LAB - CHEMISTRY ANNETTE ENGLISH Performing Organization Address City/[facility]/ZIP Co de Phone Number [facility] INSURANCE BILL [address] [place] [address] * VITAMIN E (03/07/2023 1:26 PM FREIGHT CAR BUILDER) Vitamin E Alpha Tocopherol 7.0 7.0 - 25.1 mg/L [facility] Vitamin E Gamma Tocopherol 2.2 0.5 - 5.5 mg/L [facility] Comment: Reference intervals for alpha and gamma-tocopherol determined from National Health and Nutrition Examination Survey, 9611-2217. Individuals with alpha-tocopherol levels less than 5.0 mg/L are considered vitamin E deficient. Blood BLOOD SPECIMEN / Unknown 03/07/2023 1:26 PM FREIGHT CAR BUILDER 03/07/2023 Narrative [facility] INSURANCE BILL - 03/13/2023 6:07 AM FREIGHT CAR BUILDER Test(s) 449528-Jvsveke E(Alpha Tocopherol); 778168- Vitamin E(Gamma Tocopherol); 563470-Nsf. B1, Whole Blood was developed and its performance characteristics determined by [facility]. It has not been cleared or approved by the Food and Drug Administration. Resulting Agency Comment Lab Testing performed at: [address] ??[facility] [id number] Suresh Prajapati MD LAB - CHEMISTRY ANNETTE ENGLISH Performing Organization Address City/[facility] Co de Phone Number [facility] INSURANCE BILL [address] [place] [address] * VITAMIN B12 (03/07/2023 1:26 PM FREIGHT CAR BUILDER) Vitamin B12 299 232 - 1,245 pg/mL [facility] Blood BLOOD SPECIMEN / Unknown 03/07/2023 1:26 PM FREIGHT CAR BUILDER 03/07/2023 Narrative Resulting Agency Comment Lab Testing performed at: [place] [id number] [facility] ??[facility]ly [facility] [id number] Suresh Prajapati MD LAB - CHEMISTRY ANNETTE ENGLISH Performing Organization Address [facility] Co de Phone Number [facility] INSURANCE BILL [address] [place] [address] * (ABNORMAL) VITAMIN B1 (03/07/2023 1:26 PM FREIGHT CAR BUILDER) [facility] Vitamin B1 Whole Blood 57.5(L) 66.5 - 200.0 nmol/L [facility] INSURANCE BILL Blood BLOOD SPECIMEN / Unknown 03/07/2023 1:26 PM FREIGHT CAR BUILDER 03/07/2023 Narrative [facility] - 03/13/2023 6:07 AM FREIGHT CAR BUILDER Test(s) 237748-Xbczxaj E(Alpha Tocopherol); 781119- Vitamin E(Gamma Tocopherol); 972933-Sik. B1, Whole Blood was developed and its performance characteristics determined by [employer]. It has not been cleared or approved by the Food and Drug Administration. Resulting Agency Comment Lab Testing performed at: [address] ??[facility] [id number] Suresh Prajapati MD LAB - CHEMISTRY ANNETTE ENGLISH Performing Organization Address [facility] Co de Phone Number [facility] [address] [place] [address] * (ABNORMAL) VITAMIN A (03/07/2023 1:26 PM FREIGHT CAR BUILDER) [facility] Vitamin A 13.7(L) 20.1 - 62.0 ug/dL [facility] Comment: Reference intervals for vitamin A determined from [facility] studies. Individuals with vitamin A less than 20 ug/dL are considered vitamin A deficient and those with serum concentrations less than 10 ug/dL are considered severely deficient. ?. This test was developed and its performance characteristics determined by [employer] [facility] [employer] ([facility]). It has not been cleared or approved by the Food and Drug Administration. Blood BLOOD SPECIMEN / Unknown 03/07/2023 1:26 PM FREIGHT CAR BUILDER 03/07/2023 Narrative [facility] INSURANCE BILL - 03/13/2023 6:07 AM FREIGHT CAR BUILDER Test(s) 812854-Ahuzzai E(Alpha Tocopherol); 582532- Vitamin E(Gamma Tocopherol); 626996-Lit. B1, Whole Blood was developed and its performance characteristics determined by [facility]. It has not been cleared or approved by the Food and Drug Administration. Resulting Agency Comment Lab Testing performed at: [facility] ??[facility] [id number] Suresh Prajapati MD LAB - CHEMISTRY ANNETTE ENGLISH [facility] INSURANCE BILL [address] [place] [address] * PREALBUMIN (03/07/2023 1:26 PM FREIGHT CAR BUILDER) Prealbumin 15 10 - 36 mg/dL [facility] INSURANCE BILL Blood BLOOD SPECIMEN / Unknown 03/07/2023 1:26 PM FREIGHT CAR BUILDER 03/07/2023 Narrative Resulting Agency Comment Lab Testing performed at: [facility] [address] ??[facility] [id number] Suresh Prajapati MD LAB - CHEMISTRY ANNETTE ENGLISH [facility] INSURANCE BILL [address] [place] [address] * (ABNORMAL) IRON + TIBC PANEL (03/07/2023 1:26 PM FREIGHT CAR BUILDER) TIBC 219(L) 250 - 450 ug/dL [facility] INSURANCE BILL UIBC 192 131 - 425 ug/dL [facility] INSURANCE BILL Iron 27 27 - 159 ug/dL [facility] INSURANCE BILL Iron Saturation 12(L) 15 - 55 % [facility] INSURANCE BILL Blood BLOOD SPECIMEN / Unknown 03/07/2023 1:26 PM FREIGHT CAR BUILDER 03/07/2023 Narrative Resulting Agency Comment Lab Testing performed at: [facility] [address] ??[facility] [id number] Suresh Prajapati MD LAB - CHEMISTRY ANNETTE ENGLISH [facility] INSURANCE BILL [address] [place] [address] * COPPER BLOOD (03/07/2023 1:26 PM FREIGHT CAR BUILDER) Copper 119 80 - 158 ug/dL [facility] INSURANCE BILL Comment:Detection Limit = 5 Blood BLOOD SPECIMEN / Unknown 03/07/2023 1:26 PM FREIGHT CAR BUILDER 03/07/2023 Narrative [facility] INSURANCE BILL - 03/15/2023 4:07 PM FREIGHT CAR BUILDER Test(s) 450558-Kmicao, Serum or Plasma; 189026-Bufl, Plasma or Serum was developed and its performance characteristics determined by [employer]. It has not been cleared or approved by the Food and Drug Administration. Resulting Agency Comment Lab Testing performed at: [facility] ??[facility] [id number] Suresh Prajapati MD LAB - CHEMISTRY ANNETTE ENGLISH [facility] INSURANCE BILL [address] [place] [address] * (ABNORMAL) COMPREHENSIVE METABOLIC PANEL (03/07/2023 1:26 PM FREIGHT CAR BUILDER) Glucose 104(H) 70 - 99 mg/dL [facility] [...] BLOOD SPECIMEN / Unknown 03/07/2023 1:26 PM FREIGHT CAR BUILDER 03/07/2023 Narrative Resulting Agency Comment Lab Testing performed at: [facility] ??[facility] [id number] Suresh Prajapati MD LAB - CHEMISTRY ANNETTE ENGLISH [facility] INSURANCE BILL [address] [place] [address] * (ABNORMAL) CBC WITH DIFFERENTIAL (03/07/2023 1:26 PM FREIGHT CAR BUILDER) WBC 4.9 3.4 - 10.8 x10E3/uL [facility] [...] BLOOD SPECIMEN / Unknown 03/07/2023 1:26 PM FREIGHT CAR BUILDER 03/07/2023 Narrative Resulting Agency Comment Lab Testing performed at: [facility] [address] ??[facility] [id number] Suresh Prajapati MD LAB - HEMATOLOGY ORD ERABLES [facility] INSURANCE BILL [address] [place] [address] documented in this encounter Visit Diagnoses Diagnosis Intestinal malabsorption, unspecified type (HCC)- Primary Bariatric surgery status Bariatric surgery status documented in this encounter Care Teams Eyelet Machine Operator Relationship Specialty Start Date End Date Ralph Johnson MD [facility] [address] PCP - General 10/31/18 03/24/23 documented as of this encounter
--- OUTSIDE RECORDS SUMMARY | 2024-03-24 19:53 | XMS_ITS | Encounter Summary ---
Author Organization [facility] Address [address] [place] [address] Care Team Providers Care Power Barker Operator Name Role Phone Haritha Tse TAIWO-COMMERCIAL DIVER Primary Care Provider + Encounter Details Date Type Department Care Team (Latest Contact Info) Description 01/16/2024 12:15 PM CDT Clinical Support [facility] Weight Management Services [address] [place] [address], [facility] [address] [place] [address] Morbid obesity (HCC) Social History Tobacco Use Types Packs/Day Years Used Date Smoking Tobacco: Never Smokeless Tobacco: Never Alcohol Use Standard Drinks/Week Comments Not Currently 10 (1 standard drink = 0.6 oz pure alcohol) Havent drank since Sex and Gender Information Value Date Recorded Sex Assigned at Female 03/18/2023 5:31 PM LIQUOR INSPECTOR Gender Identity Female 03/18/2023 5:31 PM LIQUOR INSPECTOR Sexual Orientation Straight 03/18/2023 5: 31 PM LIQUOR INSPECTOR documented as of this encounter Last [...] obesity documented in this encounter Care Teams Power Barker Operator Relationship Specialty Start Date End Date Haritha Tse, TAIWO-COMMERCIAL DIVER [address] [place] [address] PCP - General Nurse Practitioner 03/25/23 documented as of this encounter
--- OUTSIDE RECORDS SUMMARY | 2024-03-24 19:53 | XMS_ITS | Encounter Summary ---
Author Organization [facility] Address [address] [place] [address] Care Team Providers Care Courtesy Booth Cashier Name Role Phone Haritha Tse Patricia MARAVILLA-PETROLEUM BLENDING PLANT OPERATOR Primary Care Provider + Reason for Visit * Auth/Cert (Routine) Specialty Diagnoses / Procedures Referred By Contac t Referred To Contact Procedures [place] EGD FLEX TRANSORAL DX ESOPHAGOGASTRODUODENOSCOPY (EGD) DIAGNOSTIC Referral ID Status Reason Start Date Expiration Date Visits Re quested Visits Authorized [id number] 1 1 Encounter Details Date Type Department Care Team (Latest Contact Info) Description 04/15/2023 7:17 AM INFORMATION SYSTEMS OPERATOR - 04/15/2023 9:41 AM INFORMATION SYSTEMS OPERATOR Hospital Encounter [facility] - Endoscopy Surgery [address] [place] [address] Kaiser Salgado, DO [address] [facility] [address] [place] [id number] Surgery General Discharge Disposition: Home or Self Care Social History Tobacco Use Types Packs/Day Years Used Date Smoking Tobacco: Never Smokeless Tobacco: Never Tobacco Cessation:Counseling Given: Not Answered Alcohol Use Standard Drinks/Week Comments Not Currently 10 (1 standard drink = 0.6 oz pure alcohol) Havent drank since Sex and Gender Information Value Date Recorded Sex Assigned at Female 03/18/2023 5:31 PM INFORMATION SYSTEMS OPERATOR Gender Identity Female 03/18/2023 5:31 PM INFORMATION SYSTEMS OPERATOR Sexual Orientation Straight 03/18/2023 5: 31 PM INFORMATION SYSTEMS OPERATOR documented as of this encounter Last Filed Vital Signs Vital Sign Reading Time Taken Comments Blood Pressure 138/95 04/15/2023 9:15 AM INFORMATION SYSTEMS OPERATOR Pulse 58 04/15/2023 9:15 AM INFORMATION SYSTEMS OPERATOR Temperature 36.4 ??C (97.6 ??F) 04/15/2023 8:46 AM CS T Respiratory Rate 18 04/15/2023 9:15 AM INFORMATION SYSTEMS OPERATOR Oxygen Saturation 98% 04/15/2023 9:15 AM INFORMATION SYSTEMS OPERATOR Inhaled Oxygen Concentration - - Weight 147.9 kg (326 lb) 04/15/2023 7:43 AM INFORMATION SYSTEMS OPERATOR Height 170.2 cm (5' 7 ) 04/15/2023 7:43 AM INFORMATION SYSTEMS OPERATOR Body Mass Index 51.06 04/15/2023 7:43 AM INFORMATION SYSTEMS OPERATOR documented in this encounter Functional Status [...] hours vitamin D, ergocalciferol, (Drisdol) 1.25 MG (79004 UT) capsuleIndications:Morbi d obesity (HCC),Bariatric surgery status,Vitamin [...] EGD Kaiser Salgado DO 04/15/2023 8:35 AM RMATION SYSTEMS OPERATOR documented in this encounter Procedure Notes * Kaiser Salgado DO - 04/15/2023 8:46 AM CSTAssociated Order(s): EGD EGD completed. Biopsies pending. A full PDF copy of the report with photos is in the results and/or media tab for your review. Please refer to this for full details of the procedure. Follow up with Dr. Prajapati as scheduled. Kaiser Salgado DO 04/15/2023 8:46 AM RMATION SYSTEMS OPERATOR documented in this encounter Plan of Treatment Not on file documented as of this encounter Procedures Procedure Name Priority Date/Time Associated Diagnosis Comments CARDIAC RHYTHM STRIP ORDER 05/03/2023 2:39 PM INFORMATION SYSTEMS OPERATOR PATHOLOGY/CYTOLOGY REPORT ORDER 04/16/2023 10:06 PM INFORMATION SYSTEMS OPERATOR HELICOBACTER PYLORI UREASE (STL) STAT 04/15/2023 8:39 AM INFORMATION SYSTEMS OPERATOR Morbid obesity (HCC) [place] EGD FLEX TRANSORAL W BX SNGL OR MULT 04/15/2023 8:35 AM INFORMATION SYSTEMS OPERATOR [place] ED EGD FLEX TRANSORAL DX 04/15/2023 8:35 AM INFORMATION SYSTEMS OPERATOR EGD Routine 04/15/2023 8:32 AM INFORMATION SYSTEMS OPERATOR documented in this encounter Results * CARDIAC RHYTHM STRIP ORDER (05/03/2023 2:39 PM INFORMATION SYSTEMS OPERATOR) Narrative 05/03/2023 2:39 PM INFORMATION SYSTEMS OPERATOR Ordered by an unspecified provider. Scanned Document CARDIAC SERVICES ORD ERABLES * PATHOLOGY/CYTOLOGY REPORT ORDER (04/16/2023 10:06 PM INFORMATION SYSTEMS OPERATOR) Narrative 04/16/2023 10:06 PM INFORMATION SYSTEMS OPERATOR Ordered by an unspecified provider. Scanned Document LAB - PATHOLOGY/CYTO LOGY ORDERABLES * HELICOBACTER PYLORI UREASE (STL) (04/15/2023 8:39 AM INFORMATION SYSTEMS OPERATOR) Helicobacter pylori Urease Initial Negative Negative 04/16/2023 9:12 AM INFORMATION SYSTEMS OPERATOR [facility] Helicobacter pylori Urease Final Negative Negative 04/16/2023 9:12 AM INFORMATION SYSTEMS OPERATOR [facility] Microbiology GASTRIC BIOPSY SPECIMEN / Unknown 04/15/2023 8:39 AM INFORMATION SYSTEMS OPERATOR 04/15/2023 2:46 PM INFORMATION SYSTEMS OPERATOR Kaiser Salgado DO LAB - MICROBIOLOGY ORDERABLES [facility] [address] [id number] * EGD (04/15/2023 8:32 AM INFORMATION SYSTEMS OPERATOR) Report Endoscopy POC _ Patient Name: Azael , ??Tiarra CheryBea ? Procedure Date: 04/15/2023 8:32 AM ? Date of : 1970 ?Admit Type: Outpatient Age: 52 ? Room: ROOM 3 Gender: Female ?Attending MD: Kaiser Salgado DO, [id number] _ Procedure: ? Upper GI endoscopy Indications: [...] Procedure Code(s): ? --- Professional --- ? 43960 ? --- Technical --- ? 27798 Diagnosis Code(s): ? --- Professional --- ? K44.9 ? K29.70 ? Z09 ? Z98.0 ? --- Technical --- ? K44.9 ? K29.70 ? Z09 ? Z98.0 CPT copyright 2020 [employer]. All rights reserved. The codes documented in this report are preliminary and upon estimator and drafter supervisor review may be revised to meet current compliance requirements. _ Kaiser Salgado DO 04/15/2023 8:45:40 AM This report has been signed electronically. Number of Addenda: 0 Note Initiated On: 04/15/2023 8:32 AM [facility] 04/15/2023 8:32 AM INFORMATION SYSTEMS OPERATOR Narrative Procedure Note Kaiser Salgado DO - 04/15/2023 8:46 AM CST EGD completed. Biopsies pending. A full PDF copy of the report with photos is in the results and/or mediatab for your review. Please refer to this for full details of theprocedure. Follow up with Dr. Prajapati as scheduled. Kaiser Salgado DO 04/15/2023 8:46 AM Kaiser Salgado DO GI PROCEDURE ORDERA BLES [facility] END[facility] documented in this encounter [...] Pre-op $ New Bag/Syringe 04/15/2023 8:33 AM INFORMATION SYSTEMS OPERATOR 20 mL/hr documented in this encounter Active and Recently Administered Medications Times are shown in INFORMATION SYSTEMS OPERATOR. Scheduled Medication Order 04/13/2023 04/14/2023 04/15/2023 0.9% [...] RN) documented in this encounter Care Teams Courtesy Booth Cashier Relationship Specialty Start Date End Date Haritha Tse APRN-[employer]ROLE[employer] OPERATOR [facility] [place] [address] PCP - General Nurse Practitioner 03/25/23 documented as of this encounter
--- OUTSIDE RECORDS SUMMARY | 2024-03-24 19:53 | XMS_ITS | Referral Summary ---
Author Organization [facility] Address [address] [place] [address] Care Team Providers Care Facility Supervisor Name Role Phone Haritha Tse Patricia MARAVILLA-DONOR PROCESSOR Primary Care Provider + Source Comments [facility],non-owned Affiliates and Associated Physician Practices is amultiple site organization consisting of ambulatory clinics and hospital sitesin [place], [place], [place] and [place]. This disclosure is being madepursuant to the Care Everywhere program and may not contain all information available regarding this patient. Last updated 17.[facility] Encounters Date Type Department Care Team Description 01/16/2024 Travel 01/16/2024 12:15 PM CDT Clinical Support [facility] Weight Management Services [address] [place] [address], [address] [address] Morbid obesity (HCC) from Last [...] Active vitamin D, ergocalciferol, (Drisdol) 1.25 MG (22549 UT) capsuleIndications:M orbid obesity (HCC),Bariatric surgery status,Vitamin [...] Sex Assigned at Female 03/18/2023 5:31 PM BUILDING STONECUTTER Gender Identity Female 03/18/2023 5:31 PM BUILDING STONECUTTER Sexual Orientation Straight 03/18/2023 5: 31 PM BUILDING STONECUTTER Last Filed Vital Signs Vital Sign Reading Time Taken Comments Blood Pressure 138/95 04/15/2023 9:15 AM BUILDING STONECUTTER Pulse 58 04/15/2023 9:15 AM BUILDING STONECUTTER Temperature 36.4 ??C (97.6 ??F) 04/15/2023 8:46 AM CS T Respiratory Rate 18 04/15/2023 9:15 AM BUILDING STONECUTTER Oxygen Saturation 98% 04/15/2023 9:15 AM BUILDING STONECUTTER Inhaled Oxygen Concentration - - Weight 135.2 [...] COMPREHENSIVE METABOLIC PANEL Routine 03/07/2023 1:26 PM BUILDING STONECUTTER Bariatric surgery status Intestinal malabsorption, unspecified type (HCC) from Last 3 Months or Most Recently Relevant to Health Maintenance Results * (ABNORMAL) COMPREHENSIVE METABOLIC PANEL (03/07/2023 1:26 PM BUILDING STONECUTTER) Glucose 104(H) 70 - 99 mg/dL [facility] [...] BLOOD SPECIMEN / Unknown 03/07/2023 1:26 PM BUILDING STONECUTTER 03/07/2023 Narrative Resulting Agency Comment Lab Testing performed at: [facility] [address] ??[facility]ly [facility] [id number] Suresh Prajapati MD LAB - CHEMISTRY ANNETTE ENGLISH [facility] INSURANCE BILL [address] [place] [address] from Last 3 Months or Most Recently Relevant to Health Maintenance Care Teams Facility Supervisor Relationship Specialty Start Date End Date Haritha Tse, WIRE DROPPER-DONOR PROCESSOR [address] [place] [address] PCP - General Nurse Practitioner 03/25/23
--- OUTSIDE RECORDS SUMMARY | 2024-03-24 19:53 | XMS_ITS | Encounter Summary ---
Author Organization [facility] Address [address] [place] [address] Care Team Providers Care Tennis Net Maker Name Role Phone Unavailable Primary Care Provider [...] Expiration Date Visits Re quested Visits Authorized [id number] 1 1 Encounter Details Date Type Department Care Team (Late st Contact Info) Description 03/17/2018 9:09 AM SNOW BLOWER - 03/17/2018 1:58 PM SNOW BLOWER Emergency ER at [address] [address] Erwin Wilson MD [address] [place] [address] [place] [address] Aggression (Primary Dx); Chest pain, unspecified type Discharge Disposition: Inpatient Hospital Social History Tobacco Use Types Packs/Day Years Used Date Smoking Tobacco: Never Smokeless Tobacco: Never Alcohol Use Standard Drinks/Week Comments Yes 10 (1 standard drink = 0.6 oz pu re alcohol) Sex and Gender Information Value Date Recorded Sex Assigned at Female 03/18/2023 5:31 PM SNOW BLOWER Gender Identity Female 03/18/2023 5:31 PM SNOW BLOWER Sexual Orientation Straight 03/18/2023 5: 31 PM SNOW BLOWER documented as of this encounter Last Filed Vital Signs Vital Sign Reading Time Taken Comments Blood Pressure 112/60 03/17/2018 1:34 PM SNOW BLOWER Pulse 88 03/17/2018 1:30 PM SNOW BLOWER Temperature 36.4 ??C (97.5 ??F) 03/17/2018 11:[address] Respiratory Rate 12 03/17/2018 1:30 PM SNOW BLOWER Oxygen Saturation 95% 03/17/2018 1:18 PM SNOW BLOWER Inhaled Oxygen Concentration - - Weight 142.9 kg (315 lb) 03/17/2018 11:19 AM SNOW BLOWER Height 165.1 cm (5' 5 ) 03/17/2018 11:19 AM SNOW BLOWER Body Mass Index 52.42 03/17/2018 11:19 AM SNOW BLOWER documented in this encounter Functional Status Functional [...] Physician: Dr. Enriquez Discussed case with: Fátima [facility] Hospital / Unit: [facility]/ [facility] Room: 423-1 Phone number for Unit: [phone] Patient's current location: [facility] ED ?? Report information for Behavioral Health Unit: Nurse Name: Corry Nurse contact number: [phone] BLOWER * Kana Albert - 03/17/2018 11:14 AM CST CI spoke with Fátima CURRIE who states pt is appropriate for [facility] Per Dr. Wilson pt is medically clear BLOWER * Kana Albert - 03/17/2018 10:26 AM [...] case with: Fátima CURRIE Hospital / Unit: [facility]/ [facility] Room: [facility] Phone number for Unit: [phone] Patient's current location: [facility] ED Report information for [facility] Health Unit: Nurse Name: Corry Nurse contact number: [phone] Guardian and Consents: Current Residence of Patient Refer to [facility] Guardian name/relationship, if applicable (Parent /DFS/DJO/Foster): Self Guardian contact #: Refer to [facility] Was guardianship verified Yes If so [...] Pt does report prior S admission at [facility] a couple months ago. Pt reports homicidal ideations towards no specific target. Per RN, pt was hypersexual and licked a security sme ear. Pt does present as bizarre during the assessment. Ptis focused on this senior medical writer being in a college sorority. The pt [...] will probably require a medial bed. Inna [facility] Social Worker also agrees pt will require medical bed. [...] Admissions: Yes ?If yes Date and location: [facility] Do you have any current Providers: no [...] understanding. Discussed case with Fátima Behavioral Health Social Worker at [facility] for appropriate bed placement. ?? The [place] Scale, shows that based on patient's presentation they currently warrant a high risk of self harm, this has been provided to Dr. Enriquez Psychiatrist and Dr. Wilson ED Physician along withED Registered Nurse. Provisional Diagnosis: ?? Major Depressive Disorder, recurrent episode severe F33.2 ?? Assessment Times: [id number] BLOWER * Telma Kurtz - 03/17/2018 9:08 AM CST Central Intake received a ED CONSULT CENTRAL INTAKE Order and added patient to the Behavioral Health List (BHS List) for an assessment. BLOWER documented in this encounter ED Notes * Corry Lopes RN - 03/17/2018 1:53 PM CST Patient being transferred to [facility]. Pt is calm and cooperative. VSS. IV discharged, catheterintact. A&Ox4 with a steady gait to [facility] BLOWER * Corry Lopes RN - 03/17/2018 12:14 PM CST Pt awaiting transferr. Pt sleeping and wakes to voice. A&OX4. No apparent distress. Skin-warm/dry. Color-normal. Cap refill <2 sec. Respirations-even and non labored. Lung sounds-clear and equal. Bed low locked and call light in reach. Continued monitoring. BLOWER * Troy Sherman - 03/17/2018 12:05 PM CST Stefan called, updated ETA of 1400. BLOWER * Corry Lopes RN - 03/17/2018 11:49 AM CST Report called to Joseph Armenta at [place] [address]. Stefan called for transport. [id number] BLOWER * Erwin Wilson MD - 03/17/2018 9:36 AM CST Provider contact with the patient: 03/17/2018 09:36 Tiarra HAN [id number] [facility] EMERGENCY DEPARTMENT History Chief Complaint [...] the L arm that began 30 min BUSINESS DEVELOPMENT MANAGER. She reports SOB and some N/V. BP [...] lb) SpO2 99% BMI 52.42 kg/m2 [facility] 03/03/2018 Physical Exam Medications No current outpatient [...] AM I discussed with the BOUCHRA Garcia Power Screwdriver Operator. The patient meets criteria for psychiatric transfer at this time under the care of Dr. Enriquez (Psychiatry) for aggression (primary). Dr. Enriquez agrees to accept the patient at this time. The CI Power Screwdriver Operator will inform the patient about the plans [...] unspecified type Aggression (Primary) Disposition: Transfer to [place] BP 113/79 Pulse 75 Temp 97.5 ??F [...] 11:24 AM Provider Signature and Attestation IDr. Wilosn personally performed the services described in this documentation. All medical recordentries made by the scribe were at my direction and in my presence. I have reviewed the chart and agree that the record reflects my personal performance and is accurate and complete. Electronically Signed: 03/17/2018. Time 1:10 PM BLOWER * Corry Lopes RN - 03/17/2018 9:28 AM CST Pt came to ED for chest pain and states that pain started after using alcohol, marijuana and cocaine. Pt states she is suicidal and homicidal. States she wants to Kill security sme. Pt to room and security screening and change of clothes. A&OX4. Pt calm and cooperative at this time. Skin-warm/dry. Color-normal. Cap refill <2 sec. Respirations-even and non labored. Lung sounds-clear and equal. BLOWER documented in this encounter Plan of Treatment Not on file documented as of this encounter Procedures Procedure Name Priority Date/Time Associated Diagnosis Comments CARDIAC EKG ORDER 03/18/2018 10: 48 PM SNOW BLOWER TROPONIN I STAT 03/17/2018 9:59 AM SNOW BLOWER CBC W AUTO DIFFERENTIAL STAT 03/17/2018 9:59 AM SN[facility] BLOWER COMPREHENSIVE METABOLIC PANEL STAT 03/17/2018 9:59 AM SNOW BLOWER HCG BETA BLOOD QUANTITATIVE STAT 03/17/2018 9:59 AM SNOW BLOWER XR CHEST 1VW PORTABLE STAT 03/17/2018 9:32 AM SNOW BLOWER Chest pain, unspecified type EKG 12-LEAD STAT 03/17/2018 8:55 AM SNOW BLOWER Chest pain, unspecified type documented in this encounter Results * CARDIAC EKG ORDER (03/18/2018 10:48 PM SNOW BLOWER) Narrative 03/18/2018 10:48 PM SNOW BLOWER Ordered by an unspecified provider. Scanned Document CARDIAC SERVICES ORD ERABLES * HCG BETA BLOOD QUANTITATIVE (03/17/2018 9:59 AM SNOW BLOWER) hCG Quantitative <1 mIU/mL 03/17/20 18 10:47 AM SNOW [facility] Blood BLOOD SPECIMEN / Unknown Venipuncture / Unknown 03/17/2018 9:59 AM SNOW BLOWER 03/17/2018 10:02 AM SNOW BLOWER Narrative [facility] - 03/17/2018 10:47 AM SNOW BLOWER ? hCG Reference Range, mIU/mL: ? Males [...] - CHEMISTRY ANNETTE ENGLISH Performing Organization Address [facility] de Phone Number [facility] [address] [place] [address] * TROPONIN I (03/17/2018 9:59 AM SNOW BLOWER) [facility] Troponin I <0.015 0.000 - 0.049 ng/mL 03/17/2018 10:22 AM SNOW BLOWER [facility] Blood BLOOD SPECIMEN / Unknown Venipuncture / Unknown 03/17/2018 9:59 AM SNOW BLOWER 03/17/2018 10:02 AM SNOW BLOWER Narrative [facility] - 03/17/2018 10:22 AM SNOW BLOWER Note: Diagnosis of myocardial infarction requires symptoms [...] - CHEMISTRY ANNETTE ENGLISH Performing Organization Address [facility] de Phone Number [facility] [id number] [place] [address] * (ABNORMAL) COMPREHENSIVE METABOLIC PANEL (03/17/2018 9:59 AM SNOW BLOWER) [facility] Glucose 92 74 - 106 mg/dL 03/17/2018 10:22 AM [facility] Sodium 137 136 - 145 mmol/L 03/17/2018 10:22 AM [facility] Potassium 4.0 3.5 - 5.1 mmol/L 03/17/2018 10:22 AM [facility] Chloride 106 98 - 107 mmol/L 03/17/2018 10:22 AM [facility] CO2 26 22 - 31 mmol/L 03/17/2018 10:22 AM [facility] Calcium 8.8 8.5 - 10.1 mg/dL 03/17/2018 10:22 AM [facility] Anion Gap 5(L) 8 - 16 mmol/L 03/17/2018 10:22 AM [facility] BUN 11 7 - 21 mg/dL 03/17/2018 10:22 AM [facility] Creatinine 0.82 0.50 - 1.30 mg/dL 03/17/2018 10:22 AM [facility] Alkaline Phosphatase 95 38 - 126 U/L 03/17/2018 10:22 AM [facility] ALT 20 13 - 61 U/L 03/17/2018 10:22 AM [facility] AST 30 5 - 40 U/L 03/17/2018 10:22 AM [facility] Protein Total 8.1 6.4 - 8.2 gm/dL 03/17/2018 10:22 AM [facility] Albumin 3.3(L) 3.4 - 5.0 gm/dL 03/17/2018 10:22 AM [facility] Bilirubin Total 0.3 0.2 - 1.0 mg/dL 03/17/2018 10:22 AM [facility] eGFR by MDRD >60 >60 mL/min/1.7 3m2 03/17/2018 10:22 AM [facility] eGFR by MDRD >60 >60 mL/min/1.7 3m2 03/17/2018 10:22 AM [facility] Blood BLOOD SPECIMEN / Unknown Venipuncture / Unknown 03/17/2018 9:59 AM SNOW BLOWER 03/17/2018 10:02 AM [facility] Erwin Wilson MD LAB - CHEMISTRY ANNETTE ENGLISH [facility] Organization Address City/State/ZIP Co de Phone Number [facility] [address] [place] [address] * (ABNORMAL) CBC W AUTO DIFFERENTIAL (03/17/2018 9:59 AM [facility]) [facility] WBC 7.2 4.4 - 10.7 x10E9/L 03/17/2018 10:09 AM [facility] WBC Corrected x10E9/L 03/17/2018 10:09 AM [facility] RBC 3.99 3.80 - 5.20 x10E12/L 03/17/2018 10:09 AM [facility] Hemoglobin 8.5(L) 12.0 - 15.6 gm/dL 03/17/2018 10:09 AM [facility] Hematocrit 29.4(L) 35.9 - 45.5 % 03/17/2018 10:09 AM [facility] MCV 73.7(L) 80.7 - 98.3 fl 03/17/2018 10:09 AM [facility] MCH 21.3(L) 26.7 - 34.0 pg 03/17/2018 10:09 AM [facility] MCHC 28.9(L) 30.8 - 35.9 gm/dL 03/17/2018 10:09 AM [facility] Platelet Count 296 153 - 416 x10E9/L 03/17/2018 10:09 AM [facility] RDW-CV 18.6(H) 12.1 - 14.9 % 03/17/2018 10:09 AM [facility] MPV 9.3(L) 9.4 - 12.9 fl 03/17/2018 10:09 AM [facility] Neutrophils % 57.8 44.0 - 73.0 % 03/17/2018 10:09 AM [facility] Lymphocytes % 30.6 20.0 - 43.0 % 03/17/2018 10:09 AM [facility] Monocytes % 7.5 5.0 - 13.0 % 03/17/2018 10:09 AM [facility] Eosinophils % 3.1 0.0 - 6.0 % 03/17/2018 10:09 AM [facility] Basophils % 0.7 0.0 - 2.0 % 03/17/2018 10:09 AM [facility] Immature Granulocytes 0.3 0 - 1 % 03/17/2018 10:09 AM SNOW BLOWER [facility] Neutrophil Absolute 4.16 2.01 - 7.14 x10E9/L 03/17/2018 10:09 AM [facility] Lymphocytes Absolute 2.20 1.07 - 3.94 x10E9/L 03/17/2018 10:09 AM [facility] Monocytes Absolute 0.54 0.26 - 1.07 x10E9/L 03/17/2018 10:09 AM SNOW BLOWER [facility] Eosinophils Absolute 0.22 0 - 0.47 x10E9/L 03/17/2018 10:09 AM SNOW BLOWER [facility] Basophils Absolute 0.05 0 - 0.08 x10E9/L 03/17/2018 10:09 AM [facility] Immature Granulocytes Absolute 0.02 0.00 - 0.06 x10E9/L 03/17/2018 10:09 AM [facility] nRBC Auto 0 /100 WBC 03/17/2018 10:09 AM [facility] Blood BLOOD SPECIMEN / Unknown Venipuncture / Unknown 03/17/2018 9:59 AM SNOW BLOWER 03/17/2018 10:03 AM SNOW BLOWER Erwin Wilson MD LAB - HEMATOLOGY ORD ERABLES [facility] [address] [place] [address] * XR CHEST 1VW PORTABLE (03/17/2018 9:32 AM SNOW BLOWER) Anatomical Region Laterality Modality Chest Radiographic Alexsandra ging 03/17/2018 10:0 5 AM SNOW BLOWER Impressions 03/17/2018 10:05 AM SNOW BLOWER No acute disease. Reading Radiologist: Katt Kumar MD on 03/17/2018 at 10:05 AM Narrative 03/17/2018 10:05 AM SNOW BLOWER AP Portable Chest Indication: Chest pain, shortness [...] RDERABLES * EKG 12-LEAD (03/17/2018 8:55 AM SNOW BLOWER) Ventricular Rate 83 BPM [facility] Atrial Rate 83 BPM [facility] P-R Interval 146 ms [facility] QRS Duration ms 80 ms [facility] Q-T Interval ms 400 ms [facility] QTC Calculation (Bezet) 470 ms [facility] Calculated P [place] 74 degrees [facility] Calculated R [place] -16 degrees [facility] Calculated T [place] -5 degrees [facility] Interpretation EKG Normal sinus rhythm Minimal voltage criteria for LVH, may be normal variant Anterior infarct , age undetermined Abnormal ECG No previous ECGs available Confirmed by Jacinta Good ([id number]) on 03/18/2018 10:59:11 AM [facility] 03/17/2018 8:55 AM SNOW BLOWER 03/18/2018 10:59 AM SNOW BLOWER Erwin Wilson MD ECG ORDERABLES [facility] [...] at 1030 $ Given 03/17/2018 11:09 AM SNOW BLOWER 30 mg documented in this encounter Active and Recently Administered Medications Times are shown in SNOW BLOWER. Scheduled Medication Order 03/15/2018 03/16/2018 03/17/2018 ketorolac (TORADOL) injection 30 mg (COMPLETED) 30 mg, Intravenous, NOW, 1 dose, On Sat03/17/18 at 1030 1109 ($ Given - Prov ider: Corry Lopes RN) documented in this encounter
--- OUTSIDE RECORDS SUMMARY | 2024-03-24 19:53 | XMS_ITS | Encounter Summary ---
Author Organization [facility] Address [address] [place] [address] Care Team Providers Care Conveyor Technician Name Role Phone Haritha Tse Patricia MARAVILLA-IT TECHNICAL SPECIALIST Primary Care Provider + Reason for Visit * Reason Comments Diet Encounter Details Date Type Department Care Team (Latest Contact Info) Description 10/29/2023 10:45 AM CDT Clinical Support [facility] Weight Management Services [address], [address] [place] [address] Morbid obesity (HCC) Social History Tobacco Use Types Packs/Day Years Used Date Smoking Tobacco: Never Smokeless Tobacco: Never Alcohol Use Standard Drinks/Week Comments Not Currently 10 (1 standard drink = 0.6 oz pure alcohol) Havent drank since Sex and Gender Information Value Date Recorded Sex Assigned at Female 03/18/2023 5:31 PM MUTUAL FUND ACCOUNTANT Gender Identity Female 03/18/2023 5:31 PM MUTUAL FUND ACCOUNTANT Sexual Orientation Straight 03/18/2023 5: 31 PM MUTUAL FUND ACCOUNTANT documented as of this encounter Last Filed [...] (52 year old) PCP Physician: Haritha Tse APRN-IT TECHNICAL SPECIALIST Referring Physician: Suresh Prajapati MD Progress towards [...] obesity documented in this encounter Care Teams Conveyor Technician Relationship Specialty Start Date End Date Haritha Tse APRN-IT TECHNICAL SPECIALIST [address] [address] PCP - General Nurse Practitioner 03/25/23 documented as of this encounter
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
--- OUTSIDE RECORDS SUMMARY | 2024-03-24 19:53 | XMS_ITS | Encounter Summary ---
Author Organization [facility] Address [address] [place] [address] Care Team Providers Care Plate Straightener Name Role Phone Haritha Tse Primary Care [...] Sex Assigned at Female 03/18/2023 5:31 PM SEX THERAPIST Gender Identity Female 03/18/2023 5:31 PM SEX THERAPIST Sexual Orientation Straight 03/18/2023 5: 31 PM SEX THERAPIST documented as of this encounter Functional Status [...] on filedocumented in this encounter Care Teams Plate Straightener Relationship Specialty Start Date End Date Haritha Tse APRN-CNP [address] [place] [address] PCP - General Nurse Practitioner 03/25/23 documented as of this encounter
--- OUTSIDE RECORDS SUMMARY | 2024-03-24 19:53 | XMS_ITS | Encounter Summary ---
Author Organization [facility] Health Address [address] [place] [address] Care Team Providers Care Hydration Plant Operator Name Role Phone Haritha Tse Primary Care [...] Sex Assigned at Female 03/18/2023 5:31 PM TELETYPE MECHANIC Gender Identity Female 03/18/2023 5:31 PM TELETYPE MECHANIC Sexual Orientation Straight 03/18/2023 5: 31 PM TELETYPE MECHANIC documented as of this encounter Functional Status [...] on filedocumented in this encounter Care Teams Hydration Plant Operator Relationship Specialty Start Date End Date Haritha Tse APRN-CNP [address] [place] [address] PCP - General Nurse Practitioner 03/25/23 documented as of this encounter
--- OUTSIDE RECORDS SUMMARY | 2024-03-24 19:53 | XMS_ITS | Encounter Summary ---
Author Organization [facility] Health Address [address] [place] [address] Care Team Providers Care Occupational Health Specialist Name Role Phone Ralph Johnson MD Primary Care Provider [phone] Encounter Details Date Type Department Care Team (Latest Contact Info) Description 08/05/2019 Travel Social History Tobacco Use Types Packs/Day Years Used Date Smoking Tobacco: Never Smokeless Tobacco: Never Alcohol Use Standard Drinks/Week Comments Yes 10 (1 standard drink = 0.6 oz pu re alcohol) bottle of wine daily Sex and Gender Information Value Date Recorded Sex Assigned at Female 03/18/2023 5:31 PM COMMONWEALTH ATTORNEY Gender Identity Female 03/18/2023 5:31 PM COMMONWEALTH ATTORNEY Sexual Orientation Straight 03/18/2023 5: 31 PM COMMONWEALTH ATTORNEY COVID-19 Exposure Response Date Recorded In the [...] on filedocumented in this encounter Care Teams Occupational Health Specialist Relationship Specialty Start Date End Date Ralph Johnson MD [address] [phone] PCP - General 10/31/18 03/24/23 documented as of this encounter
--- OUTSIDE RECORDS SUMMARY | 2024-03-24 19:53 | XMS_ITS | Encounter Summary ---
Author Organization [facility] Health Address [address] [place] [address] Care Team Providers Care Information Technology Administrator Name Role Phone Haritha Tse Primary Care [...] Sex Assigned at Female 03/18/2023 5:31 PM DRILLING FOREMAN Gender Identity Female 03/18/2023 5:31 PM DRILLING FOREMAN Sexual Orientation Straight 03/18/2023 5: 31 PM DRILLING FOREMAN documented as of this encounter Functional Status [...] on filedocumented in this encounter Care Teams Information Technology Administrator Relationship Specialty Start Date End Date Haritha Tse APRN-CNP [address] [place] [address] PCP - General Nurse Practitioner 03/25/23 documented as of this encounter
--- OUTSIDE RECORDS SUMMARY | 2024-03-24 19:53 | XMS_ITS | Clinical Summary ---
Author Organization [facility] [employer] Address [address] [address] Care Team Providers Care Press Reader Name Role Phone AylinHaritha sarkar Patricia MARAVILLA-DIETARY AIDE COOK Primary Care Provider + Source Comments [employer],non-owned Affiliates and Associated Physician Practices is amultiple site organization consisting of ambulatory clinics and hospital sitesin [place], [place], [place] and [place]. This disclosure is being madepursuant to the Care Everywhere program and may not contain all information available regarding this patient. Last updated 17.[employer] Allergies No known active allergies Medications * [...] Active vitamin D, ergocalciferol, (Drisdol) 1.25 MG (26060 UT) capsuleIndications:M orbid obesity (HCC),Bariatric surgery status,Vitamin [...] Description 01/16/2024 12:15 PM CDT Clinical Support [facility] [address] [facility] [address] [place] [phone] Morbid obesity (HCC) 01/16/2024 Travel from Last 3 Months Social History Tobacco Use Types Packs/Day Years Used Date Smoking Tobacco: Never Smokeless Tobacco: Never Tobacco Cessation:Counseling Given: Not Answered Alcohol Use Standard Drinks/Week Comments Not Currently 10 (1 standard drink = 0.6 oz pure alcohol) Havent drank since Sex and Gender Information Value Date Recorded Sex Assigned at Female 03/18/2023 5:31 PM FIELD MARKETING LEAD Gender Identity Female 03/18/2023 5:31 PM FIELD MARKETING LEAD Sexual Orientation Straight 03/18/2023 5: 31 PM FIELD MARKETING LEAD Last Filed Vital Signs Vital Sign Reading Time Taken Comments Blood Pressure 138/95 04/15/2023 9:15 AM FIELD MARKETING LEAD Pulse 58 04/15/2023 9:15 AM FIELD MARKETING LEAD Temperature 36.4 ??C (97.6 ??F) 04/15/2023 8:46 AM CS T Respiratory Rate 18 04/15/2023 9:15 AM FIELD MARKETING LEAD Oxygen Saturation 98% 04/15/2023 9:15 AM FIELD MARKETING LEAD Inhaled Oxygen Concentration - - Weight 135.2 [...] COMPREHENSIVE METABOLIC PANEL Routine 03/07/2023 1:26 PM FIELD MARKETING LEAD Bariatric surgery status Intestinal malabsorption, unspecified type (HCC) from Last 3 Months or Most Recently Relevant to Health Maintenance Results * (ABNORMAL) COMPREHENSIVE METABOLIC PANEL (03/07/2023 1:26 PM FIELD MARKETING LEAD) Glucose 104(H) 70 - 99 mg/dL [facility] [...] BLOOD SPECIMEN / Unknown 03/07/2023 1:26 PM FIELD MARKETING LEAD 03/07/2023 Narrative Resulting Agency Comment Lab Testing performed at: [facility] ??[facility]ly [facility], [facility] [id number] Suresh Prajapati MD LAB - CHEMISTRY ANNETTE ENGLISH [facility] INSURANCE BILL [address] [place] [id number] from Last 3 Months or Most Recently Relevant to Health Maintenance Care Teams Press Reader Relationship Specialty Start Date End Date Haritha Tse, BOTANICAL TECHNICAL OFFICER-DIETARY AIDE COOK [address] [place] [address] PCP - General Nurse Practitioner 03/25/23
--- OUTSIDE RECORDS SUMMARY | 2024-03-24 19:53 | XMS_ITS | Encounter Summary ---
Author Organization [facility] Address [address] [place] [address] Care Team Providers Care Under Cutting Machine Operator Name Role Phone Haritha Tse MEDICAL COMMUNICATION SPECIALIST-OPERATOR LIGHTS Primary Care Provider + Reason for Visit * Auth/Cert (Routine) Specialty Diagnoses / Procedures Referred By Contac t Referred To Contact Procedures [place] ED EGD FLEX TRANSORAL DX ESOPHAGOGASTRODUODENOSCOPY (EGD) DIAGNOSTIC Referral ID Status Reason Start Date Expiration Date Visits Re quested Visits Authorized [id number] 1 1 Encounter Details Date Type Department Care Team (Latest Contact Info) Description 04/15/2023 9:20 AM LEARNING AND DEVELOPMENT CONSULTANT - 04/15/2023 9:40 AM LEARNING AND DEVELOPMENT CONSULTANT Surgery [facility] - Endoscopy Surgery [address] [place] [address] Kaiser Salgado DO [address] [facility] [address] [place] [id number] ESOPHAGOGASTRODUODENOSCOPY (EGD) DIAGNOSTIC Surgery Details Date/Time Status Location OR Service Patient Class Case Class Case Type Trauma Case? 04/15/2023 9:20 AM Posted [facility] Endo 02 Gastroenterology Surgery Day Care Elective [...] Sex Assigned at Female 03/18/2023 5:31 PM LEARNING AND DEVELOPMENT CONSULTANT Gender Identity Female 03/18/2023 5:31 PM LEARNING AND DEVELOPMENT CONSULTANT Sexual Orientation Straight 03/18/2023 5: 31 PM LEARNING AND DEVELOPMENT CONSULTANT documented as of this encounter Last Filed Vital Signs Vital Sign Reading Time Taken Comments Blood Pressure 138/95 04/15/2023 9:15 AM LEARNING AND DEVELOPMENT CONSULTANT Pulse 58 04/15/2023 9:15 AM LEARNING AND DEVELOPMENT CONSULTANT Temperature 36.4 ??C (97.6 ??F) 04/15/2023 8:46 AM CS T Respiratory Rate 18 04/15/2023 9:15 AM LEARNING AND DEVELOPMENT CONSULTANT Oxygen Saturation 98% 04/15/2023 9:15 AM LEARNING AND DEVELOPMENT CONSULTANT Inhaled Oxygen Concentration - - Weight 147.9 kg (326 lb) 04/15/2023 7:43 AM LEARNING AND DEVELOPMENT CONSULTANT Height 170.2 cm (5' 7 ) 04/15/2023 7:43 AM LEARNING AND DEVELOPMENT CONSULTANT Body Mass Index 51.06 04/15/2023 7:43 AM LEARNING AND DEVELOPMENT CONSULTANT documented in this encounter Functional Status Functional [...] hours vitamin D, ergocalciferol, (Drisdol) 1.25 MG (11932 UT) capsuleIndications:Morbi d obesity (HCC),Bariatric surgery status,Vitamin [...] EGD Kaiser Salgado DO 04/15/2023 8:35 AM NING AND DEVELOPMENT CONSULTANT documented in this encounter Procedure Notes * Kaiser Salgado DO - 04/15/2023 8:46 AM CSTAssociated Order(s): EGD EGD completed. Biopsies pending. A full PDF copy of the report with photos is in the results and/or media tab for your review. Please refer to this for full details of the procedure. Follow up with Dr. Prajapati as scheduled. Kaiser Salgado DO 04/15/2023 8:46 AM NING AND DEVELOPMENT CONSULTANT documented in this encounter Plan of Treatment Not on file documented as of this encounter Procedures Procedure Name Priority Date/Time Associated Diagnosis Comments CARDIAC RHYTHM STRIP ORDER 05/03/2023 2:39 PM LEARNING AND DEVELOPMENT CONSULTANT PATHOLOGY/CYTOLOGY REPORT ORDER 04/16/2023 10:06 PM LEARNING AND DEVELOPMENT CONSULTANT HELICOBACTER PYLORI UREASE (STL) STAT 04/15/2023 8:39 AM LEARNING AND DEVELOPMENT CONSULTANT Morbid obesity (HCC) LA EGD FLEX TRANSORAL W BX SNGL OR MULT 04/15/2023 8:35 AM LEARNING AND DEVELOPMENT CONSULTANT [place] ED EGD FLEX TRANSORAL DX 04/15/2023 8:35 AM LEARNING AND DEVELOPMENT CONSULTANT EGD Routine 04/15/2023 8:32 AM LEARNING AND DEVELOPMENT CONSULTANT documented in this encounter Results * CARDIAC RHYTHM STRIP ORDER (05/03/2023 2:39 PM LEARNING AND DEVELOPMENT CONSULTANT) Narrative 05/03/2023 2:39 PM LEARNING AND DEVELOPMENT CONSULTANT Ordered by an unspecified provider. Scanned Document CARDIAC SERVICES ORD ERABLES * PATHOLOGY/CYTOLOGY REPORT ORDER (04/16/2023 10:06 PM LEARNING AND DEVELOPMENT CONSULTANT) Narrative 04/16/2023 10:06 PM LEARNING AND DEVELOPMENT CONSULTANT Ordered by an unspecified provider. Scanned Document LAB - PATHOLOGY/CYTO LOGY ORDERABLES * HELICOBACTER PYLORI UREASE (STL) (04/15/2023 8:39 AM LEARNING AND DEVELOPMENT CONSULTANT) Helicobacter pylori Urease Initial Negative Negative 04/16/2023 9:12 AM LEARNING AND DEVELOPMENT CONSULTANT [facility] Helicobacter pylori Urease Final Negative Negative 04/16/2023 9:12 AM LEARNING AND DEVELOPMENT CONSULTANT [facility] Microbiology GASTRIC BIOPSY SPECIMEN / Unknown 04/15/2023 8:39 AM LEARNING AND DEVELOPMENT CONSULTANT 04/15/2023 2:46 PM LEARNING AND DEVELOPMENT CONSULTANT Kaiser Salgado DO LAB - MICROBIOLOGY ORDERABLES [facility] [address] [place] [address] * EGD (04/15/2023 8:32 AM LEARNING AND DEVELOPMENT CONSULTANT) Report Endoscopy POC _ Patient Name: Azael , ??Tiarra Chino ? Procedure Date: 04/15/2023 8:32 AM ? Date of : 1970 ?Admit Type: Outpatient Age: 52 ? Room: ROOM 3 Gender: Female ?Attending MD: Kaiser Salgado DO, [id number] _ Procedure: ? Upper GI endoscopy Indications: [...] Procedure Code(s): ? --- Professional --- ? 98198 ? --- Technical --- ? 65088 Diagnosis Code(s): ? --- Professional --- ? K44.9 ? K29.70 ? Z09 ? Z98.0 ? --- Technical --- ? K44.9 ? K29.70 ? Z09 ? Z98.0 CPT copyright 2020 [employer]. All rights reserved. The codes documented in this report are preliminary and upon show host/hostess review may be revised to meet current compliance requirements. _ Kaiser Salgado, DO 04/15/2023 8:45:40 AM This report has been signed electronically. Number of Addenda: 0 Note Initiated On: 04/15/2023 8:32 AM [facility] 04/15/2023 8:32 AM LEARNING AND DEVELOPMENT CONSULTANT Narrative Procedure Note Damian Kaiser R, - 04/15/2023 8:46 AM CST EGD completed. Biopsies pending. A full PDF copy of the report with photos is in the results and/or mediatab for your review. Please refer to this for full details of theprocedure. Follow up with Dr. Prajapati as scheduled. Kaiser Salgado DO 04/15/2023 8:46 AM Kaiser Salgado DO GI PROCEDURE ORDERA BLES [facility] documented in this encounter [...] Pre-op $ New Bag/Syringe 04/15/2023 8:33 AM LEARNING AND DEVELOPMENT CONSULTANT 20 mL/hr documented in this encounter Active and Recently Administered Medications Times are shown in LEARNING AND DEVELOPMENT CONSULTANT. Scheduled Medication Order 04/13/2023 04/14/2023 04/15/2023 0.9% [...] New Bag/Syri nge - Provider: Racheal A [place], RN) documented in this encounter Care Teams Under Cutting Machine Operator Relationship Specialty Start Date End Date Haritha Tse, MEDICAL COMMUNICATION SPECIALIST-OPERATOR LIGHTS [address] [place] [address] PCP - General Nurse Practitioner 03/25/23 documented as of this encounter
--- OUTSIDE RECORDS SUMMARY | 2024-03-24 19:53 | XMS_ITS | Encounter Summary ---
Author Organization [facility] Address [address] [place] [address] Care Team Providers Care Configuration Release Manager Name Role Phone Haritha Tse Primary Care [...] Sex Assigned at Female 03/18/2023 5:31 PM MEDICAL SOCIAL CONSULTANT Gender Identity Female 03/18/2023 5:31 PM MEDICAL SOCIAL CONSULTANT Sexual Orientation Straight 03/18/2023 5: 31 PM MEDICAL SOCIAL CONSULTANT documented as of this encounter Functional Status [...] on filedocumented in this encounter Care Teams Configuration Release Manager Relationship Specialty Start Date End Date Haritha Tse APRN-CNP [address] [facility] [place] [address] PCP - General Nurse Practitioner 03/25/23 documented as of this encounter
--- OUTSIDE RECORDS SUMMARY | 2024-03-24 19:53 | XMS_ITS | Encounter Summary ---
Author Organization [facility] Address [address] [place] [address] Care Team Providers Care Farm Management Teacher Name Role Phone Ralph Johnson MD Primary Care Provider [phone] Encounter Details Date Type Department Care Team (Latest Contact Info) Description 03/07/2023 Travel Social History Tobacco Use Types Packs/Day Years Used Date Smoking Tobacco: Never Smokeless Tobacco: Never Alcohol Use Standard Drinks/Week Comments Yes 10 (1 standard drink = 0.6 oz pu re alcohol) bottle of wine daily Sex and Gender Information Value Date Recorded Sex Assigned at Female 03/18/2023 5:31 PM DOCUMENTATION SPECIALIST Gender Identity Female 03/18/2023 5:31 PM DOCUMENTATION SPECIALIST Sexual Orientation Straight 03/18/2023 5: 31 PM DOCUMENTATION SPECIALIST documented as of this encounter Functional Status [...] on filedocumented in this encounter Care Teams Farm Management Teacher Relationship Specialty Start Date End Date Ralph Johnson MD [facility] [id number] PCP - General 10/31/18 03/24/23 documented as of this encounter
--- OUTSIDE RECORDS SUMMARY | 2024-03-24 19:53 | XMS_ITS | Encounter Summary ---
Author Organization [facility] Address [address] [place] [address] Care Team Providers Care Amusement Equipment Operator Name Role Phone [facility]itha Tse [facility] Primary Care Provider + Reason for Visit * Auth/Cert (Routine) Specialty Diagnoses / Procedures Referred By Contac t Referred To Contact Procedures [place] ED EGD FLEX TRANSORAL DX ESOPHAGOGASTRODUODENOSCOPY (EGD) DIAGNOSTIC Referral ID Status Reason Start Date Expiration Date Visits Re quested Visits Authorized [id number] 1 1 Encounter Details Date Type Department Care Team (Late st Contact Info) Description 04/15/2023 8:37 AM EDUCATIONAL PSYCHOLOGIST Anesthesia Event [facility] - Endoscopy Surgery [address] [place] [address] Del Shen MD [facility] [place] [place] [address] [facility] [address] [place] [phone] Jazmin Lopez APRN-SUPERVISOR BRAIDING [address] [place] [address] Anesthesia Record Procedure Summary Procedure Name Responsible [...] 831; Orientation: Anterior, Proximal, Right; Placed By: GEOVANY Sykes; Tolerance: Well 04/15/23 0832 by Racheal [...] Sex Assigned at Female 03/18/2023 5:31 PM EDUCATIONAL PSYCHOLOGIST Gender Identity Female 03/18/2023 5:31 PM EDUCATIONAL PSYCHOLOGIST Sexual Orientation Straight 03/18/2023 5: 31 PM EDUCATIONAL PSYCHOLOGIST documented as of this encounter Functional Status [...] encounter Progress Notes * Jazmin Lopez APRN-SUPERVISOR BRAIDING - 04/15/2023 8:43 AM CST ANESTHESIA POSTOP [...] Care NOTABLE EVENTS: No notable events documented. ATIONAL PSYCHOLOGIST * Jazmin Lopez APRN-SUPERVISOR BRAIDING - 04/15/2023 7:44 AM CST ANESTHESIA PREOPERATIVE [...] Priority: Not Prioritized ??? Cocaine dependence, continuous ([facility]) 03/19/2018 Priority: Not Prioritized ??? Alcohol use disorder, moderate, dependence ([facility]) 03/19/2018 Priority: Not Prioritized ??? Severe recurrent major depression without psychotic features ([facility]) 03/17/2018 Priority: Not Prioritized Medical History: Past Medical History: Diagnosis Date ??? DVT (deep venous thrombosis) ([facility]) ??? HTN (hypertension) ??? Morbid obesity due to excess calories ([facility]) ??? Osteoarthritis ??? Pulmonary emboli ([facility]) has IVC filter Surgical History: Past Surgical History: Procedure Laterality Date ??? BARIATRIC SURGERY, SEDRICK-EN-Y 2000 Dr. Samson ??? Section x3 CERTIFIED MEDICAL DOSIMETRIST Status: Patient's last menstrual period was 03/03/2018. [...] op re evaluation by Jazmin Lopez APRN-SUPERVISOR BRAIDING 04/15/2023 7:46 AM ATIONAL PSYCHOLOGIST documented in this encounter Miscellaneous Notes * Anesthesia Transfer of Care - Jazmin Lopez APRN-SUPERVISOR BRAIDING - 04/15/2023 8:43 AM CST ANESTHESIA TRANSFER [...] from the receiving PACUteam. ANA PAULA Hodge ATIONAL PSYCHOLOGIST documented in this encounter Plan of Treatment [...] Anesthesia Intra-op $ Given 04/15/2023 8:38 AM EDUCATIONAL PSYCHOLOGIST 10 mg lidocaine PF (Xylocaine MPF) 1 % injection Intravenous, PRN, Starting on Sat04/15/23 at 0838, Until Sat04/15/23 at 0843, Anesthesia Intra-op $ Given 04/15/2023 8:38 AM EDUCATIONAL PSYCHOLOGIST 100 mg propofol (Diprivan) injection Intravenous, CONTINUOUS PRN, Starting on Sat04/15/23 at 0838, Until Sat04/15/23 at 0843, Anesthesia Intra-op $ New Bag/Syringe 04/15/2023 8:38 AM EDUCATIONAL PSYCHOLOGIST documented in this encounter Care Teams Amusement Equipment Operator Relationship Specialty Start Date End Date Haritha Tse, FIRER BOILER-BROKER [address] [place] [address] [place] [address] PCP - General Nurse Practitioner 03/25/23 documented as of this encounter
--- OUTSIDE RECORDS SUMMARY | 2024-03-24 19:53 | XMS_ITS | Encounter Summary ---
Author Organization [facility] Address [address] [place] [address] Care Team Providers Care Software Test Analyst Name Role Phone Haritha Tse Patricia MARAVILLA-CLINICAL NURSE EDUCATOR Primary Care Provider + Reason for Visit * Reason Comments Diet Encounter Details Date Type Department Care Team (Latest Contact Info) Description 09/12/2023 10:45 AM CDT Clinical Support [facility] Weight Management Services [address] [place] [address], [address] [address] Morbid obesity (HCC) Social History Tobacco Use Types Packs/Day Years Used Date Smoking Tobacco: Never Smokeless Tobacco: Never Alcohol Use Standard Drinks/Week Comments Not Currently 10 (1 standard drink = 0.6 oz pure alcohol) Havent drank since Sex and Gender Information Value Date Recorded Sex Assigned at Female 03/18/2023 5:31 PM NEEDLE PUNCH OPERATOR Gender Identity Female 03/18/2023 5:31 PM NEEDLE PUNCH OPERATOR Sexual Orientation Straight 03/18/2023 5: 31 PM NEEDLE PUNCH OPERATOR documented as of this encounter Last [...] (52 year old) PCP Physician: Haritha Tse APRN-CLINICAL NURSE EDUCATOR Referring Physician: Suresh Prajapati MD Assessment: Pt [...] obesity documented in this encounter Care Teams Software Test Analyst Relationship Specialty Start Date End Date Haritha Tse, SPRING ASSEMBLER-CLINICAL NURSE EDUCATOR [facility] [facility] [place] [address] PCP - General Nurse Practitioner 03/25/23 documented as of this encounter
--- OUTSIDE RECORDS SUMMARY | 2024-03-24 19:53 | XMS_ITS | Clinical Summary ---
Author Organization Unknown Care Team Providers Care Nursing Program Manager Name Role Phone SANTI KASPER, FAIZA Unavailable Unavailable KING GEOVANY, LASHAWN Unavailable Unavailable ALEXANDRIA PT, SHIRLEY Unavailable Unavailable EVGENY OT, FAM Unavailable Unavailable DASHAWN RN, MARKO Unavailable Unavailable Payers Payer Name Policy Type Policy Number Effective Date Expira tion Date [facility] [id number] [employer].DED[place].[facility] [id number] Problems Condition Name Condition Details Condition Category [...] [BMI] 50.0-59.9, ADULT Active 09-12 00:00: 00 USP (CURRENT) USE OF ANTICOAGULAN TS Active 04-08 [...] 200 mg tablet 09-12 00:00: 00 Yes [id number] HEART 1 tablet EVERY 12 HOURS 1 tablet EVERY 12 HOURS (route: oral) Med Classific ation: Cardiovas cular Therapy Agents gabapentin 100 mg capsule 09-12 00:00: 00 Yes [id number] PAIN 1 capsule BEDTIME 1 capsule BEDTIME (route: oral) Med Classific ation: Central Nervous System Agents magnesium 400 mg (as magnesium oxide) capsule 09-12 00:00: 00 Yes [id number] VITAMIN 1 capsule 2 TIMES DAILY 1 capsule 2 TIMES DAILY (route: oral) Med Classific ation: Electroly te Balance-N utritiona l Products metoprolol tartrate 25 mg tablet 09-12 00:00: 00 Yes [id number] HTN 1 tablet 2 TIMES DAILY 1 tablet 2 TIMES DAILY (route: oral) Med Classific ation: Cardiovas cular Therapy Agents Xarelto 10 mg tablet 09-12 00:00: 00 Yes [id number] THINNER 1 tablet DAILY 1 tablet DAILY (route: oral) Med Classific ation: Hematolog ical Agents ertapenem 1 gram solution for injection 10-16 00:00: 00 10-23 23:59 :00 No [id number] CELLULITUS 1 g DAILY 1 g DAILY (route: injection) Med Classific ation: Anti-Infe ctive Agents Heparin Lock Flush (Porcine) (PF) 100 unit/mL intravenous syringe 10-16 00:00: 00 10-23 23:59 :00 No [id number] AT END OF INFUSION 5 unit DAILY 5 unit DAILY (route: intravenou s) Med Classific ation: Hematolog ical Agents Normal Saline Flush 0.9 % injection syringe 10-16 00:00: 00 10-23 23:59 :00 No [id number] BEFORE AND AFTER INFUSION 10 mL DAILY [...] CALL US FIRST WITH ANY HEALTH ISSUES DEMOCRAT GO INTO THE HOSPITAL. NEGATIVE PRESSURE DRESSING [...] CALL US FIRST WITH ANY HEALTH ISSUES DEMOCRAT GO INTO THE HOSPITAL. NEGATIVE PRESSURE DRESSING [...] PATIENT REPORTED WEIGHT AND NOTIFY CM / FLUME RIDE OPERATOR FOR MD NOTIFICATION FOR SIGNS AND SYMPTOMS [...] PATIENT REPORTED WEIGHT AND NOTIFY CM / FLUME RIDE OPERATOR FOR MD NOTIFICATION FOR SIGNS AND SYMPTOMS [...] Date/Time Encounter Type Admission Type Attending [facility] Care Facility Care Department Encounter ID Discharge Date Discharge Status Discharge Condition Discharge Reason Percent Goals Met 2021-09-12 00:00:00 2021 00:00:00 Outpatient [facility] [id number] 2021 00:00:00 DISCHARGE TO HOME OR SELF CARE INDEPENDEN T WITH USE OF ASSISTIVE DEVICE HH OR PAL- GOALS MET 75.56
== END 2024-03-21 08:55 | disposition home or self-care (01) ==
PROVIDERS: Emergency Provider Student in an Organized Health Care Education/Training Program
DX: R07.89 Other chest pain (principal); I89.0 Lymphedema, not elsewhere classified; Z98.84 Bariatric surgery status; Z86.718 Personal history of other venous thrombosis and embolism; Z79.01 Long term (current) use of anticoagulants; E66.01 Morbid (severe) obesity due to excess calories; Z68.42 Body mass index [BMI] 45.0-49.9, adult; K21.9 Gastro-esophageal reflux disease without esophagitis; E53.8 Deficiency of other specified B group vitamins; I10 Essential (primary) hypertension; Z86.711 Personal history of pulmonary embolism
CPT/HCPCS: 36415; 71045; 80053; 83690; 84484; 85025; 85610; 85730; 93005; 96374; 96375; 99284; A9270; J1171; J1940